=== PATIENT | female | born 1945 | race Caucasian/White ===

== ENCOUNTER 2017-02-20 21:38 | Inpatient (IN) ==
--- NOTE | 2017-02-20 22:15 | Emergency Department Note ---
Disposition Clinical Impression: Hypokalemia, Generalized weakness, Unable to ambulate, ESRD (end stage renal disease) Leg pain Qualifiers: Laterality: bilateral Qualified Code(s): M79.604 - Pain in right leg Disposition: Admitted As Inpatient Condition: Good Time of Disposition: 01:07 General Adult HPI - General Chief complaint: ED Extremity Problem,Nontraumatic Stated complaint: Leg pain bilaterally Time Seen by Provider: 02/20/17 21:44 Source: EMS Mode of arrival: EMS Limitations: no limitations Nursing Notes Reviewed: Yes Vital Signs Reviewed: Yes - History of Present Illness HPI Narrative: Patient is a 71-year-old female with past medical history of COPD, end-stage renal disease, hypertension. She presents today due to lower extremity pain bilaterally. Patient states that she has had this pain before when she was getting ready to start dialysis. She has also had this pain if she goes to long without dialysis. She describes the pain as intense cramping in bilateral lower extremities from hips down to feet. She also admits to increased cough from baseline and shortness of breath. Denies any chest pain. Denies any nausea, vomiting, abdominal pain, diarrhea. She does admit to missing her dialysis appointment on Friday. She is supposed to go Mondays and Fridays. She follows with Dr. Gamboa. Pain Scale: 10 - Related Data Home Medications Medication Instructions Recorded Confirmed Amitriptyline [Elavil] 50 mg PO HS 09/19/15 02/21/17 Amlodipine [Amlodipine Besylate] 10 mg PO DAILY 09/19/15 02/21/17 Cholecalciferol (Vitamin D3) 5,000 unit PO DAILY #0 09/19/15 02/21/17 [Vitamin D3] Ranitidine HCl [Zantac] 150 mg PO HS 09/19/15 02/21/17 Ondansetron HCl 4 mg PO Q8H PRN 11/08/16 02/21/17 Budesonide/Formoterol 80/4.5 1 puff IH BIDR PRN 02/21/17 02/21/17 [Symbicort 80/4.5] Calcium Acetate [Phos-LO] 1,334 mg PO HS 02/21/17 02/21/17 Calcium Acetate [Phos-LO] 667 mg PO TIDWM 02/21/17 02/21/17 Cyanocobalamin (B-12) [Vitamin B12] 1,000 mcg IM QMONTH 02/21/17 02/21/17 Ipratropium/Albuterol Neb [Duoneb] 3 ml IH [id number] PRN 02/21/17 02/21/17 Allergies Allergy/AdvReac Type Severity Reaction Status Date / Time codeine AdvReac Severe Vomiting Verified 11/08/16 09:29 naproxen [From Naprosyn] AdvReac Severe Vomiting Verified 11/08/16 09:29 All systems ED: reviewed and negative except as stated. Constitutional: Denies: fever Cardiovascular: Denies: chest pain, palpitations Respiratory: Reports: cough, dyspnea, wheezes Gastrointestinal: Denies: abdominal pain, nausea, vomiting, diarrhea Genitourinary: Denies: urgency, dysuria Musculoskeletal: Reports: myalgia. Denies: back pain Integumentary: Denies: rash Neurological: Denies: headache, weakness, numbness, paresthesias Psychiatric: Denies: anxiety Past Medical History - Past Medical History Attestation: Yes The following information was validated with the patient. Source: patient Medical history: Reports: asthma, COPD, GERD, hypertension, renal disease, thyroid disease Surgical history: Reports: appendectomy, cholecystectomy, colostomy, hysterectomy, other Psychiatric history: Reports: no psych history - Social History Smoking Status: Current every day smoker Smokeless Tobacco Status: No Alcohol use: Reports: none Drug use: Reports: none Physical Exam - General Limitations: no limitations General appearance: alert, in distress, other (Patient is crying, cannot get comfortable, yelling that her legs hurt) - Head Head exam: atraumatic, normocephalic, normal inspection - Eye Eye exam: Present: normal appearance, PERRL, EOMI - ENT ENT exam: normal exam, normal oropharynx, mucous membranes moist - Neck Neck exam: Present: normal inspection, full ROM, trachea midline - Chest Chest inspection: Present: normal inspection, symmetric chest wall rise - Respiratory Respiratory exam: Present: wheezes (wheeze bilateral LL) - Cardiovascular Cardiovascular exam: Present: regular rate, normal rhythm, normal heart sounds - Abdominal Exam Abdominal exam: Present: soft, Non-Tender, other (Ostomy on LLQ and RLQ, viable pink and no localized erythema or pus drainage). Absent: tenderness, distention , guarding, rebound, rigidity - Extremities Exam Extremities exam: Present: normal inspection, full ROM, tenderness (Tenderness to entire bilateral LE with light palpation. ). Absent: pedal edema Course Course Narrative: Vitals within normal limits on exam. Patient is crying, complaining of significant bilateral lower extremity leg cramping. She has tenderness of the entire left and right lower extremity with light palpation. No focal neurologic deficits. Since the patient has increased cough and wheeze bilateral LL, will obtain chest x-ray. We will also obtain EKG, basic labs to assess for any electrolyte abnormalities due to the patient missing her dialysis. [place] given for pain control. 00:13 EKG showed normal sinus rhythm with no acute ST changes. CBC within normal limits. BMP showed potassium 2.9. Will begin to place potassium in the ED with K rider. Patient is still having leg pain, is unable to ambulate due to this. She has generalized weakness. Will admit the patient for further care. Vital Signs Temperature 99.5 F 02/20/17 21:45 Pulse Rate 92 02/20/17 21:45 Respiratory Rate 18 02/20/17 21:45 Blood Pressure 101/62 02/20/17 21:45 O2 Sat by Pulse Oximetry 94 02/20/17 21:45 Temperature 99 F 02/21/17 04:11 Pulse Rate 91 02/21/17 04:11 Respiratory Rate 18 02/21/17 04:11 Blood Pressure 106/61 02/21/17 04:11 O2 Sat by Pulse Oximetry 93 02/21/17 04:11 Oxygen Delivery Oxygen Delivery Room Air Medical Decision Making - [facility] Narrative Medical decision making narrative: Vitals within normal limits on exam. Patient is crying, complaining of significant bilateral lower extremity leg cramping. She has tenderness of the entire left and right lower extremity with light palpation. No focal neurologic deficits. Since the patient has increased cough and wheeze bilateral LL, will obtain chest x-ray. We will also obtain EKG, basic labs to assess for any electrolyte abnormalities due to the patient missing her dialysis. [place] given for pain control. 00:13 EKG showed normal sinus rhythm with no acute ST changes. CBC within normal limits. BMP showed potassium 2.9. Will begin to place potassium in the ED with K rider. Patient is still having leg pain, is unable to ambulate due to this. She has generalized weakness. Will admit the patient for further care. - Medical Records Medical records reviewed: Yes I reviewed the patient's medical records. - Lab Data Lab results reviewed: Yes I reviewed the patient's lab results. Result diagrams: 02/20/17 22:37 02/20/17 22:37 Lab Results 02/20/17 02/20/17 Range/Units 22:37 22:37 WBC 9.5 (4.3-11.1) K/mcL RBC 4.06 (3.82-4.97) M/mcL Hgb 12.5 (11.5-15.4) g/dL Hct 35.7 (35.3-44.9) % MCV 87.9 (83.0-100.0) fL MCH 30.8 (28.0-33.3) pg MCHC 35.0 (31.6-35.5) g/dL RDW 13.9 (11.5-14.5) % Plt Count 89 L (140-400) K/mcL MPV 12.5 H (9.4-12.4) fL Immature Gran % 0.3 (0-4) % Seg Neutrophils % 78.5 % Lymphocytes % 14.4 % Monocytes % 4.9 % Eosinophils % 1.6 % Basophils % 0.3 % Neutrophils # 7.5 (1.6-8.9) K/mcL Lymphocytes # 1.4 (0.6-4.6) K/mcL Monocytes # 0.5 (0.0-1.3) K/mcL Eosinophils # 0.2 (0.0-0.6) K/mcL Basophils # 0.0 (0.0-0.2) K/mcL Immature Plt Fraction 9.6 H (1.1-6.1) % Sodium 138 (136-145) mEq/L Potassium 2.9 L (3.5-4.5) mEq/L Chloride 86 L (98-109) mEq/L Carbon Dioxide 16 L (19-29) mEq/L BUN 85 H (7-20) mg/dL Creatinine 16.07 H (0.57-1.11) mg/dL Est GFR ( Amer) 3 L (> 60) Est GFR (Non-Af Amer) 2 L (> 60) BUN/Creatinine Ratio 5 L (6-26) Glucose 90 (70-99) mg/dL Calculated Osmolality 311 H (280-300) Calcium 7.7 L (8.6-10.8) mg/dL Total Bilirubin 0.4 (0.2-1.2) mg/dL AST 10 (5-34) Units/L ALT 9 (0-55) Units/L Alkaline Phosphatase 74 (38-126) Units/L Serum Total Protein 7.3 (6.0-8.3) g/dL Albumin 3.4 L (3.5-5.0) g/dL Globulin 3.9 H (2.4-3.5) g/dL Albumin/Globulin Ratio 0.9 L (1.1-2.2) - Radiology Data Radiology results reviewed: Yes I reviewed the patient's radiology results. - EKG Data EKG #1 EKG attestation: Yes I reviewed and interpreted this EKG. EKG results narrative: 02/20/2017 at 22:15. Normal sinus rhythm. Rate 85. [place] 138. QRS 104. QTC 425. Normal axis. No acute ST elevation or depression. S.B.A.R. - S.B.A.R. Situation: Demographics, MOA Background: Presenting Complaint, Relevant PMH, Meds, & Allergies Assessment: Vital Signs, Course and respsone to treatment, Exam Concerns, Patient/Family Expectation, Pertinant Lab Results, Outstanding Labs Recommendation: Barrier(s) to disposition, Recommendation based on pending studies, treatments, or consults S.B.A.R. Report Given to: Dr. Levine [email or web address] Repor Time: 01:07 Attestation Statement - Attestation Attestation: Dr. Joseph note: Patient was seen in conjunction with resident Dr. Robert Benedict; please see his chart for complete documentation. I spent [id number] time with the patient and agree with the patient's treatment and disposition. Chemistry results of been reviewed. Patient is unable to ambulate in the ER. She has chronic diarrhea and worsening bilateral lower extremity pain.
[2017-02-20] MEDS ORDERED: *HR* HYDROcodone/Acet 5/325 mg TABLET PO ONE (22:27)
[2017-02-20 22:40] LABS: Basophils % 0.3 %; Hemoglobin 12.5 g/dL (11.5-15.4); Immature Granulocytes % 0.3 % (0-4)
[2017-02-20 22:41] LABS: Eosinophils # 0.2 K/mcL (0.0-0.6); Eosinophils % 1.6 %; Hematocrit 35.7 % (35.3-44.9); Immature Platelets 9.6 % (1.1-6.1); Lymphocytes # 1.4 K/mcL (0.6-4.6); Lymphocytes % 14.4 %; Mean Corpuscular Hemoglobin 30.8 pg (28.0-33.3); Mean Corpuscular Volume 87.9 fL (83.0-100.0); Mean Platelet Volume 12.5 fL (9.4-12.4); Monocytes # 0.5 K/mcL (0.0-1.3); Monocytes % 4.9 %; Neutrophils # 7.5 K/mcL (1.6-8.9); Red Blood Count 4.06 M/mcL (3.82-4.97); Red Cell Distribution Width 13.9 % (11.5-14.5); Segmented Neutrophils % 78.5 %
[2017-02-20 22:42] LABS: Platelet Count 89 K/mcL (140-400)
[2017-02-20 22:54] LABS: Albumin 3.4 g/dL (3.5-5.0); Albumin/Globulin Ratio 0.9 (1.1-2.2); Bilirubin,Total 0.4 mg/dL (0.2-1.2); Calcium 7.7 mg/dL (8.6-10.8); Globulin 3.9 g/dL (2.4-3.5); Potassium 2.9 mEq/L (3.5-4.5); Total Protein 7.3 g/dL (6.0-8.3)
[2017-02-20] MEDS ORDERED: Potassium Chloride 40 MEQ, Lidocaine 1% 2 ML in D5% in Water 500 ML IVPB ONE (23:55)
[2017-02-21] MEDS: *HR* HYDROcodone/Acet 5/325 mg TABLET PO PRN ×4 (03:12→18:28)
[2017-02-21] MEDS ORDERED: Naloxone 0.4 MG/ML INJ IVP PRN (06:24)
[2017-02-21] MEDS ORDERED: Budesonide/Formoterol 80/4.5 MDI IH PRN (06:26)
[2017-02-21] MEDS ORDERED: Ipratropium/Albuterol Neb 3 ML IH PRN (06:26)
[2017-02-21] MEDS ORDERED: Ondansetron ODT 4 MG TAB.RAPDIS PO PRN ×2 (06:26→07:08)
--- NOTE | 2017-02-21 07:28 | Internal Med History&Physical ---
Date of Encounter: 02/21/17 Time of Encounter: 06:30 Assessment and Plan (1) ESRD (end stage renal disease) Current visit: Yes Status: Acute On HD. Patient states left upper arm fistula has matured and is being used for dialysis. Missed dialysis for the past one week - Nephrology consulted for assistance with urgent dialysis today - Continue home renal meds (2) Hypokalemia Current visit: Yes Status: Acute Related to chronic diarrhea - Supplementation given in ER. Will not continue to replace given ESRD (3) Generalized weakness Current visit: Yes Status: Acute Secondary to leg pain and need for hemodialysis - Likely dialysis today Internal Medicine - H&P: HPI Chief complaint: Lower extremity pain Admitted From: Emergency Dept Plans for Post Hospital Care: Home History of present illness: Ms. Parra is a 71 year old female with history of ESRD on HD (initiated 11/2016 , follows with Dr. Daniel), COPD and HTN who presented to the ER this morning with complaint of severe bilateral lower extremity pain. She states that she has had similar pain in the past when she needed dialysis. She admits to missing her dialysis on 02/17 because she had vomiting and diarrhea. She has chronic diarrhea secondary to ileostomy but thinks it was worse this week. She denies chest pain or shortness of breath. In the ER she was found to be hypokalemic with K of 2.9. Past Med Surg Social Fam HX - Past Medical History Medical history: asthma, COPD, GERD, hypertension, renal disease, thyroid disease Psychiatric history: no psych history - Past Surgical History Surgical History: appendectomy, cholecystectomy, colostomy, hysterectomy, other - Social History Smoking Status: Current every day smoker Packs per day: 1 Smokeless Tobacco Status: No Alcohol use: none Drug use: none - Family History Mother Living Status: Hx Family Cardiac Disorders: Yes ([place]) Hx Family Endocrine Disorder: Yes ([place]) Hx Family Neurologic Disorders: Yes (stroke) Father Living Status: Hx Family Cardiac Disorders: Yes ([place]) Internal Medicine - H&P: Meds Amitriptyline [Elavil] 50 mg PO HS 09/19/15 [History] Amlodipine [Amlodipine Besylate] 10 mg PO DAILY 09/19/15 [History] Cholecalciferol (Vitamin D3) [Vitamin D3] 5,000 unit PO DAILY #0 09/19/15 [ History] Ranitidine HCl [Zantac] 150 mg PO HS 09/19/15 [History] Ondansetron HCl 4 mg PO Q8H PRN 11/08/16 [History] Budesonide/Formoterol 80/4.5 [Symbicort 80/4.5] 1 puff IH BIDR PRN 02/21/17 [ History] Calcium Acetate [Phos-LO] 1,334 mg PO HS 02/21/17 [History] Calcium Acetate [Phos-LO] 667 mg PO TIDWM 02/21/17 [History] Cyanocobalamin (B-12) [Vitamin B12] 1,000 mcg IM QMONTH 02/21/17 [History] Ipratropium/Albuterol Neb [Duoneb] 3 ml IH [id number] PRN 02/21/17 [History] Allergies codeine Adverse Reaction (Severe, Verified 11/08/16 09:29) Vomiting naproxen [From Naprosyn] Adverse Reaction (Severe, Verified 11/08/16 09:29) Vomiting All Systems PM: A 10-system review of systems was performed and is negative for pertinent findings except as documented above in the HPI. - Constitutional Vitals: Temp Pulse Resp BP Pulse Ox 98.4 F 85 14 95/63 93 02/21/17 07:13 02/21/17 07:13 02/21/17 07:13 02/21/17 07:13 02/21/17 07:13 General appearance: Present: A&O X 3, pleasant, no acute distress - Head Head exam: Present: atraumatic - Eye Eye exam: Present: EOMI, sclera anicteric - ENT ENT exam: Present: mucous membranes moist - Neck Neck exam general surgery: Present: supple - Respiratory Respiratory exam: Present: CTAB - Cardiovascular Cardiovascular exam: Present: RRR. Absent: diastolic murmur, gallop, rubs, systolic murmur - GI/Abdominal GI/Abdominal exam: Present: normal bowel sounds, soft. Absent: distended, tenderness Additional comments: Colostomy bag in place with liquid stool inside - Extremities Exam Extremities exam: Absent: pedal edema Additional comments: Tenderness to light palpation of bilateral lower extremities. - Neurological Exam Neurological exam: Present: no focal deficits - Skin Skin exam: Absent: rash Internal Med - H&P Results - Labs CBC & Chem 7: 02/20/17 22:37 02/20/17 22:37
[2017-02-21] MEDS: Cholecalciferol (D-3) 1,000 UNIT TABLET PO SCH (07:40)
[2017-02-21] MEDS: Calcium Acetate 667 MG CAPSULE PO SCH ×3 (07:41→17:16)
[2017-02-21] MEDS: amLODIPine 5 MG TABLET PO SCH (07:53)
[2017-02-21 08:02] LABS: Hematocrit 35.3 % (35.3-44.9); Hemoglobin 12.4 g/dL (11.5-15.4); Mean Corpuscular HGB Conc 35.1 g/dL (31.6-35.5); Mean Corpuscular Hemoglobin 31.2 pg (28.0-33.3); Mean Corpuscular Volume 88.7 fL (83.0-100.0); Red Blood Count 3.98 M/mcL (3.82-4.97); Red Cell Distribution Width 13.8 % (11.5-14.5)
[2017-02-21] MEDS ORDERED: Albumin 25% 12.5gm/50mL 12.5 GM/50 ML IV.SOLN IVPB PRN (08:02)
[2017-02-21] MEDS ORDERED: 0.9 % Sodium Chloride 250 ML IVC PRN (08:02)
[2017-02-21 08:03] LABS: Platelet Count 86 K/mcL (140-400)
--- NOTE | 2017-02-21 08:05 | Nephrology Consult Note ---
Date of Encounter: 02/21/17 Time of Encounter: 08:04 Assessment and Plan (1) ESRD (end stage renal disease) Current Visit: Yes Status: Chronic ESRD due for HD today. Missed HD. She will need HD today and potentially tomorrow as well. Dialysis note: The pt was seen and examined while on HD. She was dialyzing via the Permacath. Her BFR and DFR plus Arterial and Venous pressures were acceptable. I've arranged to use lower Qb and Qd flows d/t her missed dialysis. The hypokalemia is likely d/t her severe diarrhea, which sounds like it would be acutely worse on top of an already chronically high output ostomy situation. Will defer the diarrhea work up and mgt to the primary team. This is dehydrating her as well. I've ordered to give 250mL of 0.9% saline while on dialysis today. AVG on the left upper extremity and working well, [facility] , will plan to consult IR to request removal of the Permacath while here. Dose Rx by GFR. Follow a renal protective strategy Thank you for consulting the [facility] group. (2) Generalized weakness Current Visit: Yes Status: Acute Multifactorial, suspecting from her uremia and diarrhea (3) Hypokalemia Current Visit: Yes Status: Acute (4) Leg pain Current Visit: Yes Status: Acute Will defer the work up and mgt to the primary team. Qualifiers: Laterality: bilateral Qualified Code(s): M79.604 - Pain in right leg; M79.605 - Pain in left leg History of Present Illness - Reason for Consult Consult date: 02/21/17 end stage renal disease Requesting physician: Jacey Henley - Chief Complaint Missed dialysis - History of Present Illness Vannessa Parra is a very pleasant 71 y/o WF lady with a pmh of short gut syndrome with ostomy, progressive CKD and recent declaration of ESRD requiring HD who presented with worsening fatigue and missed dialysis. She voiced that she also has ongoing loose stool, more than normal noted in her ostomy bag. She last completed HD on 02/14. She said that her leg pains started a few weeks ago but have progressively worsened. She denied fall or traumatic injury. She reports having worsened fatigue and generalized weakness with a diminished appetite. She was found to have a SCr near 16 but d/t her severe diarrhea, her serum K+ was actually low. She did not affirm CP but did report labored breath from time to time without associate to palliative or provocative features. She does not take NSAIDs. She has been evaluated for Home HD but the [facility] RNs reported that she is not a candidate. She has a LUE AVG that has been working well. I spoke with the outpatient [facility] dialysis nurse and she asked that if possible the Permacath be removed while hospitalized. Due to the pt's difficulty with her frequent ostomy overflow , it has been a challenge to schedule the Permacath removal, now that her AVG is mature and working so well. She denied taking any blood thinners. Past Med Surg Social Fam HX - Past Medical History Medical history: asthma, COPD, GERD, hypertension, renal disease, thyroid disease Psychiatric history: no psych history - Past Surgical History Surgical History: appendectomy, cholecystectomy, colostomy, hysterectomy, other - Social History Smoking Status: Current every day smoker Packs per day: 1 Smokeless Tobacco Status: No Alcohol use: none Drug use: none - Family History Mother Living Status: Hx Family Cardiac Disorders: Yes ([place]) Hx Family Endocrine Disorder: Yes (DM) Hx Family Neurologic Disorders: Yes (stroke) Father Living Status: Hx Family Cardiac Disorders: Yes ([place]) Medications and Allergies Amitriptyline [Elavil] 50 mg PO HS 09/19/15 [History] Amlodipine [Amlodipine Besylate] 10 mg PO DAILY 09/19/15 [History] Cholecalciferol (Vitamin D3) [Vitamin D3] 5,000 unit PO DAILY #0 09/19/15 [ History] Ranitidine HCl [Zantac] 150 mg PO HS 09/19/15 [History] Ondansetron HCl 4 mg PO Q8H PRN 11/08/16 [History] Calcium Acetate [Phos-LO] 1,334 mg PO HS 02/21/17 [History] Calcium Acetate [Phos-LO] 667 mg PO TIDWM 02/21/17 [History] Cyanocobalamin (B-12) [Vitamin B12] 1,000 mcg IM QMONTH 02/21/17 [History] Ipratropium/Albuterol Neb [Duoneb] 3 ml IH [id number] PRN 02/21/17 [History] Levothyroxine Sodium [Synthroid] 350 mcg PO DAILY 02/21/17 [History] Mometasone/Formoterol [Dulera 100 Mcg/5 Mcg Inhaler] 2 puff IH BID 02/21/17 [ History] Allergies codeine Adverse Reaction (Severe, Verified 11/08/16 09:29) Vomiting naproxen [From Naprosyn] Adverse Reaction (Severe, Verified 11/08/16 09:29) Vomiting Review of Systems All Systems: reviewed and no additional remarkable complaints except as stated Exam - Vital Signs Vital signs: Initial Vital Signs Temp Pulse Resp BP Pulse Ox 99.5 F 92 18 101/62 94 02/20/17 21:45 02/20/17 21:45 02/20/17 21:45 02/20/17 21:45 02/20/17 21:45 Vital Signs - Last 8 Hours Temp Pulse Resp BP Pulse Ox 02/21/17 07:13 98.4 F 85 14 95/63 93 02/21/17 04:11 99 F 91 18 106/61 93 02/21/17 01:45 98.1 F 77 18 108/64 93 02/21/17 01:22 98.9 F 18 102/68 Intake and Output 02/20/17 02/21/17 02/21/17 23:59 07:59 15:59 Intake Total 240 / 240 Output Total 95 / 95 Balance 145 / 145 Intake: Oral 240 / 240 Output: Stool 70 / 70 Urostomy 25 / 25 Other: Weight 56.835 kg Patient Weight 02/21/17 23:59 Weight 56.835 kg - General Appearance General appearance: cachectic, chronically ill, fatigue, frail EENT: ATNC, PERRL, mucous membranes moist Neck: supple Respiratory: clear Cardiology: holosystolic murmur, no edema, regular rate, normal S1, normal S2 - Dialysis Access Dialysis Vascular Access: Arteriovenous Graft (Left Upper Extremity) thrill: Yes bruit: Yes Additional Comments: Permacath still in place Gastrointestinal: normoactive bowel sounds, no tenderness, no guarding Additional Comments: Thin abd with palpable ostomy bags Integumentary: no rash, warm and dry Neurologic: no focal deficit, no asterixis, alert and oriented x3 Musculoskeletal: no deformities, no erythema, no cyanosis, no clubbing Psychiatric: mood/affect appropriate, cooperative Results - Lab Results 02/21/17 07:50 02/21/17 07:50 Most recent lab results Calcium 7.7 mg/dL (8.6-10.8) L 02/20/17 22:37 Reviewed all of above, plus outside med records from [facility], imaging, labs, vitals, and inpt notes. Consult Discharge Plan - Plan Referrals: Na Johansen CNP [Primary Care Provider] - 03/04/17 10:00 am
[2017-02-21 08:14] LABS: Calcium 6.4 mg/dL (8.6-10.8); Potassium 2.9 mEq/L (3.5-4.5)
[2017-02-21 08:42] LABS: Hepatitis B Surface Antibody 1.87 mIU/mL; Hepatitis B Surface Antigen Nonreactive (Nonreactive)
[2017-02-21] MEDS ORDERED: *HR* Heparin 10,000 UNIT/10 ML VIAL IV PRN (09:11)
[2017-02-21] MEDS ORDERED: 0.9 % Sodium Chloride 1,000 ML PRIME SCH (09:15)
[2017-02-21] MEDS ORDERED: *HR* Heparin 5,000 UNIT/ML VIAL ONE (09:16)
[2017-02-21] MEDS ORDERED: 0.9 % Sodium Chloride 2,000 ML ONE (09:16)
--- NOTE | 2017-02-21 09:44 | Internal Med Progress Note ---
Date of Encounter: 02/21/17 Time of Encounter: 09:43 - Assessment and plan (1) Chronic diarrhea Current Visit: Yes Status: Chronic Assessment and plan: Acute on chronic diarrhea due to short gut syndrome With associated hypokalemia in patient with ESRD on HD patient has received HD today Will send C.diff, if negative, will give Imodium Continue to monitor K (2) Hypokalemia Current Visit: Yes Status: Acute Assessment and plan: K 2.9 on admission, 2.9 now S/P HD Will repeat K at p.m today and will review need for replacement due to kidney disease Current episode is due to acute on chronic diarrhea (3) DVT prophylaxis Current Visit: Yes Status: Acute Assessment and plan: Heparin SQ (4) Ileostomy in place Current Visit: Yes Status: Chronic Assessment and plan: High output, no surrounding erythema (5) ESRD (end stage renal disease) on dialysis Current Visit: Yes Status: Chronic Assessment and plan: Nephrology following, input appreciated patient receiving HD at time of review IR consult for removal of catheters that are not being used (6) Tobacco abuse Current Visit: Yes Status: Chronic Assessment and plan: Continues to smoke, defers NRT (7) Leg pain Current Visit: Yes Status: Acute Assessment and plan: Possibly secondary to multiple electrolyte abnormalities Continue to monitor Resume home meds Tylenol prn Qualifiers: Laterality: bilateral Qualified Code(s): M79.604 - Pain in right leg; M79.605 - Pain in left leg - Subjective Interval history: Initial encounter Patient is seen at hemodialysis section She has a PMH of Short gut syndrome with ostomy and high output from her ostomy , ESRD on HD, GERD, Hypothyroidism, HTN She is admitted for generalized weakness , hypokalemia, uremia after missing a dose of her HD due to feeling of unwellness and bilateral lower extremity pains Patient seen and denies new complains She has however been having worsening of her chronic diarrhea, she denies recent antibiotic use, she denies sick contacts - Constitutional Vitals: Temp Pulse Resp BP Pulse Ox 98.4 F 85 14 95/63 93 02/21/17 07:13 02/21/17 07:13 02/21/17 07:13 02/21/17 07:13 02/21/17 07:13 General appearance: Present: A&O X 3, pleasant, no acute distress - Head Head exam: Present: atraumatic, normocephalic - Eye Eye exam: Present: PERRL, conjuntiva pink, sclera anicteric Pupils: Present: PERRL - Neck Neck exam general surgery: Present: supple, trachea midline. Absent: lymphadenopathy - Respiratory Respiratory exam: Present: CTAB. Absent: accessory muscle use, rales, rhonchi, wheezes Additional comments: R port-a-cath, L permacath - Cardiovascular Cardiovascular exam: Present: RRR, +S1, +S2. Absent: diastolic murmur, gallop, rubs, systolic murmur - GI/Abdominal GI/Abdominal exam: Present: normal bowel sounds, soft, no peritoneal signs. Absent: distended, tenderness Additional comments: Ostomy bag filled with watery output - Extremities Exam Extremities exam: Present: warm, radial pulses palpable and symetrical. Absent : calf tenderness, cyanotic, pedal edema Additional comments: LAVF thrill no pedal edema, LE tenderness to mild touch - Neurological Exam Neurological exam: Present: alert, CN II-XII intact, oriented X3, no focal deficits. Absent: pronater drift, facial droop, speech deficit - Skin Skin exam: Present: dry, intact Internal Medicine: Result - Labs CBC & Chem 7: 02/21/17 07:50 02/21/17 07:50 Labs: Short CBC 02/21/17 Range/Units 07:50 WBC 8.1 (4.3-11.1) K/mcL Hgb 12.4 (11.5-15.4) g/dL Hct 35.3 (35.3-44.9) % Plt Count 86 L (140-400) K/mcL [facility] 02/21/17 07:50 Sodium 136 Potassium 2.9 L Chloride 97 L Carbon Dioxide 12 L BUN 76 H Creatinine 13.76 H Glucose 75 Calcium 6.4 L D Consult Discharge Plan - Plan Referrals: Na Johansen, TYLER [Primary Care Provider] - 03/04/17 10:00 am
--- NOTE | 2017-02-21 13:58 | IR Procedure Note ---
Date of procedure: 02/21/17 Consent Obtained: Written consent Timeout: Correct patient and procedure verified, Correct site verified, Time out performed, Skin prep completed Local anesthetic: Lidocaine 1% Indications: Functioning AVF Procedure Performed: Removal TDC Results/Findings: Successful removal TDC Complications: None; Tolerated procedure well (Monitor on floor)
[2017-02-21] MEDS ORDERED: Acetaminophen 325 MG TABLET PO PRN (14:13)
--- NOTE | 2017-02-21 17:20 | Electrocardiograph Report ---
[place] [address] Test Date: 2017-02-20 Pat Name: Vannessa Parra Department: 103 Room: [facility] Gender: F Principal Network Engineer: GERALD : 1945 Requested By: Robert Benedict Order Number: [id number] Reading MD: Angelica Germain Measurements Intervals [place] Rate: 85 P: 85 OK: 138 QRS: 72 QRSD: 104 T: 71 QT: 383 QTc: 425 Interpretive Statements SINUS RHYTHM Electronically Signed On 02-21-2017 17:19:15 EDT by Angelica Germain
[2017-02-21] MEDS ORDERED: Calcium Acetate 667 MG CAPSULE PO SCH (21:00)
[2017-02-21] MEDS: Famotidine 20 MG TABLET PO SCH (21:47)
[2017-02-21] MEDS: *HR* Heparin 5,000 UNIT/ML VIAL SQ SCH (21:47)
[2017-02-22] MEDS: *HR* HYDROcodone/Acet 5/325 mg TABLET PO PRN ×4 (03:47→20:16)
[2017-02-22 04:12] LABS: Hematocrit 34.9 % (35.3-44.9); Hemoglobin 11.8 g/dL (11.5-15.4); Immature Platelets 8.8 % (1.1-6.1); Mean Corpuscular HGB Conc 33.8 g/dL (31.6-35.5); Mean Corpuscular Volume 91.6 fL (83.0-100.0); Mean Platelet Volume 12.6 fL (9.4-12.4); Red Blood Count 3.81 M/mcL (3.82-4.97); Red Cell Distribution Width 14.1 % (11.5-14.5)
[2017-02-22 04:17] LABS: Potassium 3.3 mEq/L (3.5-4.5)
[2017-02-22 04:18] LABS: Calcium 8.5 mg/dL (8.6-10.8)
[2017-02-22] MEDS: *HR* Heparin 5,000 UNIT/ML VIAL SQ SCH ×3 (05:47→20:17)
[2017-02-22] MEDS: Ondansetron 4 MG/2 ML VIAL IVP PRN ×3 (06:37→22:06)
[2017-02-22] MEDS: Calcium Acetate 667 MG CAPSULE PO SCH ×3 (08:40→16:55)
[2017-02-22] MEDS: amLODIPine 5 MG TABLET PO SCH (08:40)
[2017-02-22] MEDS: Cholecalciferol (D-3) 1,000 UNIT TABLET PO SCH (08:40)
--- NOTE | 2017-02-22 10:10 | Nephrology Progress Note ---
Date of Encounter: 02/22/17 Time of Encounter: 10:09 - Assessment and Plan (1) ESRD (end stage renal disease) Current Visit: Yes Status: Chronic She appears ill, and I suspect she has a component of volume depletion from the high out put ostomy. I will provide a liter of 0.9% saline plus 40mEq oral KCl, but I'll ask the RN to crush it so as to help improve absorption d/t her short gut. No extra HD needed today. Will plan for the next HD treatment on Friday. Her LE pains could very well be from electrolyte deficiencies but may also be nutritional deficiencies as well: ?thiamine, folate, B6/12? Continue to follow a renal protective strategy Thank you. (2) Generalized weakness Current Visit: Yes Status: Acute (3) Hypokalemia Current Visit: Yes Status: Acute (4) Leg pain Current Visit: Yes Status: Acute Qualifiers: Laterality: bilateral Qualified Code(s): M79.604 - Pain in right leg; M79.605 - Pain in left leg Subjective Principal diagnosis: ESRD, Generalized weakness, LE pains Interval history: Pt was s/e earlier today. She has ongoing LE pains that worsen to touch. She voiced having general weakness; no new slurred speach or unilateral weakness. She completed most of HD yesterday, she affirmed. Still having increase diarrhea. Objective - Vital Signs Vital signs: Vital Signs Temp Pulse Resp BP Pulse Ox 02/22/17 08:05 98.3 F 68 15 104/63 95 02/22/17 05:10 98.2 F 70 18 102/58 90 02/22/17 00:25 97.5 F L 79 18 114/62 96 02/21/17 21:05 98.3 F 70 18 105/60 93 02/21/17 19:08 99.5 F 74 16 114/69 97 02/21/17 16:16 98.8 F 77 16 99/60 94 02/21/17 12:42 98.1 F 18 103/55 02/21/17 12:00 99/52 02/21/17 11:45 113/60 02/21/17 11:30 110/54 02/21/17 11:15 102/54 02/21/17 11:00 98/54 02/21/17 10:45 129/67 02/21/17 10:30 110/54 02/21/17 10:15 105/56 Intake and Output 02/21/17 02/22/17 02/22/17 23:59 07:59 15:59 Intake Total 240 / 240 400 / 400 360 / 360 Balance 240 / 240 400 / 400 360 / 360 Intake: Oral 240 / 240 400 / 400 360 / 360 Other: Meal Dinner Breakfast Percent of Meal Consumed 95% 100% Weight 56.83 kg Patient Weight 02/22/17 23:59 Weight 56.83 kg - General Appearance General appearance: Present: cachectic, moderate distress, chronically ill, fatigue, frail EENT: Present: ATNC, mucous membranes dry Neck: Present: supple Respiratory: Present: course breath sounds Cardiology: Present: holosystolic murmur, no edema, regular rate, regular rhythm , normal S1, normal S2 Dialysis Vascular Access: Arteriovenous Graft (Left UE) thrill: Yes bruit: Yes Additional Comments: The Permacath has been removed and dressing in place Gastrointestinal: Present: no tenderness (thin abd with ostomy bags) Integumentary: Present: warm and dry Neurologic: Present: no focal deficit, no asterixis, alert and oriented x3 Musculoskeletal: Present: no deformities, no erythema, no clubbing Psychiatric: Present: mood/affect appropriate, cooperative - Lab 02/22/17 03:52 02/22/17 03:52 Most recent lab results Calcium 8.5 mg/dL (8.6-10.8) L D 02/22/17 03:52 Consult Discharge Plan - Plan Referrals: Na Johansen, FEED MILL MANAGER [Primary Care Provider] - 03/04/17 10:00 am
[2017-02-22] MEDS ORDERED: D5% in 0.9% NACL 1,000 ML IVC SCH (10:15)
--- NOTE | 2017-02-22 11:56 | Internal Med Progress Note ---
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 With associated hypokalemia in patient with ESRD on HD Cdiff negative K improving Patient reports diarrhea improving Will give one dose Imodium (2) Hypokalemia Current Visit: Yes Status: Acute Assessment and plan: K 2.9 on admission, 3.3 S/P HD Replaced o by correspondence school teacher Continue to monitor (3) DVT prophylaxis Current Visit: Yes Status: Acute Assessment and plan: Heparin SQ (4) Ileostomy in place Current Visit: Yes Status: Chronic Assessment and plan: High output, no surrounding erythema (5) ESRD (end stage renal disease) on dialysis Current Visit: Yes Status: Chronic Assessment and plan: Nephrology following, input appreciated Per renal, no extra HD needed today. Will plan for the next HD treatment on Friday (6) Tobacco abuse Current Visit: Yes Status: Chronic Assessment and plan: Continues to smoke, defers NRT (7) Leg pain Current Visit: Yes Status: Acute Assessment and plan: Possibly secondary to multiple electrolyte abnormalities Agree with checking B12/Folate Will start low dose gabapentin for neuropathy Continue to monitor Resume home meds Tylenol prn Qualifiers: Laterality: bilateral Qualified Code(s): M79.604 - Pain in right leg; M79.605 - Pain in left leg - Subjective Interval history: Patient is seen at bedside She has a PMH of Short gut syndrome with ostomy and high output from her ostomy , ESRD on HD, GERD, Hypothyroidism, HTN She is admitted for generalized weakness , hypokalemia, uremia after missing a dose of her HD due to feeling of unwellness and bilateral lower extremity pains He has one episode of hemodialysis yesterday. She feels today she reports that he is improving, hypokalemia has improved, she still has bilateral lower extremity pain - Constitutional Vitals: Temp Pulse Resp BP Pulse Ox 98.3 F 69 14 107/62 97 02/22/17 11:04 02/22/17 11:04 02/22/17 11:04 02/22/17 11:04 02/22/17 11:04 General appearance: Present: A&O X 3, pleasant, no acute distress - Head Head exam: Present: atraumatic, normocephalic - Eye Eye exam: Present: PERRL, conjuntiva pink, sclera anicteric Pupils: Present: PERRL - Neck Neck exam general surgery: Present: supple, trachea midline. Absent: lymphadenopathy - Respiratory Respiratory exam: Present: CTAB. Absent: accessory muscle use, rales, rhonchi, wheezes Additional comments: Right port-a-cath, clan surounding, LEft permacath has been removed, clean dressing No chest wall tenderness - Cardiovascular Cardiovascular exam: Present: RRR, +S1, +S2. Absent: diastolic murmur, gallop, rubs, systolic murmur - GI/Abdominal GI/Abdominal exam: Present: normal bowel sounds, soft, no peritoneal signs. Absent: distended, tenderness - Extremities Exam Extremities exam: Present: tenderness, warm, radial pulses palpable and symetrical. Absent: calf tenderness, cyanotic, pedal edema - Neurological Exam Neurological exam: Present: alert, CN II-XII intact, oriented X3, no focal deficits. Absent: pronater drift, facial droop, speech deficit - Skin Skin exam: Present: dry, intact Internal Medicine: Result - Labs CBC & Chem 7: 02/22/17 03:52 02/22/17 03:52 Labs: Short CBC 02/22/17 Range/Units 03:52 WBC 6.3 (4.3-11.1) K/mcL Hgb 11.8 (11.5-15.4) g/dL Hct 34.9 L (35.3-44.9) % Plt Count 83 L (140-400) K/mcL [facility] 02/21/17 02/22/17 14:50 03:52 Sodium 140 Potassium 3.6 3.3 L Chloride 98 Carbon Dioxide 24 BUN 42 H D Creatinine 8.93 H Glucose 78 Calcium 8.5 L D Consult Discharge Plan - Plan Referrals: Na Johansen CNP [Primary Care Provider] - 03/04/17 10:00 am
[2017-02-22] MEDS: Gabapentin 100 MG CAPSULE PO SCH (14:23)
[2017-02-22] MEDS: Famotidine 20 MG TABLET PO SCH (20:16)
[2017-02-23] MEDS: *HR* HYDROcodone/Acet 5/325 mg TABLET PO PRN ×4 (02:13→22:57)
[2017-02-23 05:38] LABS: Hematocrit 31.9 % (35.3-44.9)
[2017-02-23 05:40] LABS: Hemoglobin 10.5 g/dL (11.5-15.4); Immature Platelets 6.9 % (1.1-6.1); Mean Corpuscular HGB Conc 32.9 g/dL (31.6-35.5); Mean Corpuscular Hemoglobin 30.8 pg (28.0-33.3); Mean Corpuscular Volume 93.5 fL (83.0-100.0); Mean Platelet Volume 11.9 fL (9.4-12.4); Red Blood Count 3.41 M/mcL (3.82-4.97)
[2017-02-23 05:51] LABS: Magnesium 1.3 mg/dL (1.6-2.6); Phosphorous 12.1 mg/dL (2.3-4.7)
[2017-02-23 05:53] LABS: Calcium 7.4 mg/dL (8.6-10.8); Potassium 4.2 mEq/L (3.5-4.5)
[2017-02-23] MEDS: *HR* Heparin 5,000 UNIT/ML VIAL SQ SCH ×3 (06:24→21:09)
[2017-02-23] MEDS: Calcium Acetate 667 MG CAPSULE PO SCH ×3 (08:01→16:55)
--- NOTE | 2017-02-23 08:41 | Nephrology Progress Note ---
Date of Encounter: 02/23/17 Time of Encounter: 08:39 - Assessment and Plan (1) ESRD (end stage renal disease) on dialysis Current Visit: Yes Status: Chronic Feeling better today; received 1 liter 0.9% saline plus 40mEq oral KCl Plan for HD tomorrow Continue renal diet Avoid nephrotoxins if possible (2) Hypocalcemia Current Visit: Yes Status: Acute Ca+ 7.4 today; was as low as 6.4 on 02/21 and up to 8.5 yesterday. On Phoslo which is Ca+ based so this should help increase Ca+ level (3) Generalized weakness Current Visit: Yes Status: Acute Improving (4) Hypokalemia Current Visit: Yes Status: Resolved (5) Hypomagnesemia Current Visit: No Status: Acute Mg level 1.3 Will give Mg 2g IV x 1, slowly Subjective Principal diagnosis: ESRD, Generalized weakness, LE pains Interval history: Patient seen and examined. Sitting up in bed working on 'word search' puzzles. States she is feeling better. Objective - Vital Signs Vital signs: Vital Signs Temp Pulse Resp BP Pulse Ox 02/23/17 07:01 98.1 F 60 16 111/63 97 02/23/17 04:22 98.0 F 66 18 103/63 96 02/22/17 22:29 98.0 F 63 18 120/65 96 02/22/17 17:20 98.7 F 69 16 107/62 95 02/22/17 15:05 20 97 02/22/17 11:04 98.3 F 69 14 107/62 97 Intake and Output 02/22/17 02/23/17 02/23/17 23:59 07:59 15:59 Intake Total 480 / 480 Balance 480 / 480 Intake: Oral 480 / 480 Other: Meal Dinner Percent of Meal Consumed 100% Weight 56.82 kg Patient Weight 02/23/17 23:59 Weight 56.82 kg - General Appearance General appearance: Present: chronically ill, frail EENT: Present: ATNC, mucous membranes moist, hearing intact, vision intact Neck: Present: supple Respiratory: Present: clear Cardiology: Present: no edema, normal S1, normal S2 Dialysis Vascular Access: Arteriovenous Graft Gastrointestinal: Present: no tenderness, no guarding Integumentary: Present: warm and dry Neurologic: Present: alert and oriented x3 Psychiatric: Present: mood/affect appropriate, cooperative - Lab 04/23/17 05:22 02/23/17 05:22 Most recent lab results Calcium 7.4 mg/dL (8.6-10.8) L 02/23/17 05:22 Phosphorus 12.1 mg/dL (2.3-4.7) H 02/23/17 05:22 Magnesium 1.3 mg/dL (1.6-2.6) L 02/23/17 05:22 Consult Discharge Plan - Plan Referrals: Na Johansen CNP [Primary Care Provider] - 03/04/17 10:00 am
[2017-02-23] MEDS ORDERED: Cyanocobalamin (B-12) 1,000 MCG/ML VIAL IM SCH (09:00)
[2017-02-23] MEDS ORDERED: Magnesium Sulfate 2 GM in D5% in Water 100 ML IVPB ONE (09:04)
[2017-02-23] MEDS: Gabapentin 100 MG CAPSULE PO SCH (09:57)
[2017-02-23] MEDS: Ondansetron 4 MG/2 ML VIAL IVP PRN ×2 (09:57→18:30)
[2017-02-23] MEDS: Cholecalciferol (D-3) 1,000 UNIT TABLET PO SCH (09:57)
[2017-02-23] MEDS: amLODIPine 5 MG TABLET PO SCH (09:58)
--- NOTE | 2017-02-23 11:30 | Internal Med Progress Note ---
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 With associated hypokalemia in patient with ESRD on HD Cdiff negative K improving Resolved with imodium, continue prn (2) Hypokalemia Current Visit: Yes Status: Resolved Assessment and plan: K 2.9 on admission, 3.3 02/22, 4.2 today S/P HD Continue to monitor (3) DVT prophylaxis Current Visit: Yes Status: Acute Assessment and plan: Heparin SQ (4) Ileostomy in place Current Visit: Yes Status: Chronic Assessment and plan: N output, no surrounding erythema (5) ESRD (end stage renal disease) on dialysis Current Visit: Yes Status: Chronic Assessment and plan: Nephrology following, input appreciated Per renal, no extra HD needed today. Will plan for the next HD treatment on Friday (6) Tobacco abuse Current Visit: Yes Status: Chronic Assessment and plan: Continues to smoke, defers NRT (7) Leg pain Current Visit: Yes Status: Acute Assessment and plan: Possibly secondary to multiple electrolyte abnormalities Agree with checking B12/Folate Will start low dose gabapentin for neuropathy Continue to monitor Resume home meds Tylenol prn Qualifiers: Laterality: bilateral Qualified Code(s): M79.604 - Pain in right leg; M79.605 - Pain in left leg - Subjective Interval history: Patient is seen at bedside She has a PMH of Short gut syndrome with ostomy and high output from her ostomy , ESRD on HD, GERD, Hypothyroidism, HTN She is admitted for generalized weakness , hypokalemia, uremia after missing a dose of her HD due to feeling of unwellness and bilateral lower extremity pains She had one episode of hemodialysis 02/21. She received one dose of Imodium She states her LE pain and diarrhea has improved Her K has improved, magnesium is low 1.3 - Constitutional Vitals: Temp Pulse Resp BP Pulse Ox 98 F 62 16 133/65 92 02/23/17 10:59 02/23/17 10:59 02/23/17 10:59 02/23/17 10:59 02/23/17 10:59 General appearance: Present: A&O X 3, pleasant, no acute distress - Head Head exam: Present: atraumatic, normocephalic - Eye Eye exam: Present: PERRL, conjuntiva pink, sclera anicteric Pupils: Present: PERRL - Neck Neck exam general surgery: Present: supple, trachea midline. Absent: lymphadenopathy - Respiratory Respiratory exam: Present: CTAB. Absent: accessory muscle use, rales, rhonchi, wheezes Additional comments: Right port-a-cath, clan surounding, LEft permacath has been removed, clean dressing No chest wall tenderness - Cardiovascular Cardiovascular exam: Present: RRR, +S1, +S2. Absent: diastolic murmur, gallop, rubs, systolic murmur - GI/Abdominal GI/Abdominal exam: Present: normal bowel sounds, soft, no peritoneal signs. Absent: distended, tenderness - Extremities Exam Extremities exam: Present: tenderness, warm, radial pulses palpable and symetrical. Absent: calf tenderness, cyanotic, pedal edema - Neurological Exam Neurological exam: Present: alert, CN II-XII intact, oriented X3, no focal deficits. Absent: pronater drift, facial droop, speech deficit - Skin Skin exam: Present: dry, intact Internal Medicine: Result - Labs CBC & Chem 7: 02/23/17 05:22 02/23/17 05:22 Labs: Short CBC 02/23/17 Range/Units 05:22 WBC 5.7 (4.3-11.1) K/mcL Hgb 10.5 L (11.5-15.4) g/dL Hct 31.9 L (35.3-44.9) % Plt Count 80 L (140-400) K/mcL [facility] 02/23/17 05:22 Sodium 137 Potassium 4.2 Chloride 99 Carbon Dioxide 18 L BUN 63 H D Creatinine 10.42 H Glucose 89 Calcium 7.4 L Consult Discharge Plan - Plan Referrals: Na Johansen, DIRECTOR MEDICAL [Primary Care Provider] - 03/04/17 10:00 am
[2017-02-23] MEDS: Renal Vitamin 1 MG CAPSULE PO SCH (15:28)
[2017-02-23] MEDS: Famotidine 20 MG TABLET PO SCH (21:09)
[2017-02-24] MEDS: Ondansetron 4 MG/2 ML VIAL IVP PRN ×3 (02:36→18:45)
[2017-02-24 05:34] LABS: Hematocrit 31.5 % (35.3-44.9); Hemoglobin 10.3 g/dL (11.5-15.4); Immature Platelets 5.3 % (1.1-6.1); Mean Corpuscular HGB Conc 32.7 g/dL (31.6-35.5); Mean Corpuscular Hemoglobin 30.6 pg (28.0-33.3); Mean Corpuscular Volume 93.5 fL (83.0-100.0); Mean Platelet Volume 11.4 fL (9.4-12.4); Red Blood Count 3.37 M/mcL (3.82-4.97); Red Cell Distribution Width 13.7 % (11.5-14.5)
[2017-02-24] MEDS: *HR* Heparin 5,000 UNIT/ML VIAL SQ SCH ×3 (05:38→21:36)
[2017-02-24 05:41] LABS: Calcium 7.2 mg/dL (8.6-10.8); Potassium 4.4 mEq/L (3.5-4.5)
[2017-02-24] MEDS ORDERED: 0.9 % Sodium Chloride 250 ML IVC PRN (06:38)
[2017-02-24] MEDS ORDERED: *HR* Heparin 5,000 UNIT/ML VIAL ONE (09:03)
[2017-02-24] MEDS ORDERED: 0.9 % Sodium Chloride 2,000 ML ONE (09:03)
[2017-02-24] MEDS: Renal Vitamin 1 MG CAPSULE PO SCH (10:34)
[2017-02-24] MEDS: *HR* HYDROcodone/Acet 5/325 mg TABLET PO PRN ×3 (10:34→18:42)
[2017-02-24] MEDS: Gabapentin 100 MG CAPSULE PO SCH (10:35)
[2017-02-24] MEDS: Cholecalciferol (D-3) 1,000 UNIT TABLET PO SCH (10:35)
[2017-02-24] MEDS: Calcium Acetate 667 MG CAPSULE PO SCH ×3 (10:36→17:05)
--- NOTE | 2017-02-24 11:47 | Discharge Summary ---
Date of Encounter: 02/24/17 Time of Encounter: 11:47 - Discharge Diagnosis (1) Chronic diarrhea Status: Chronic (2) Hypokalemia Status: Resolved (3) DVT prophylaxis Status: Acute (4) Ileostomy in place Status: Chronic (5) ESRD (end stage renal disease) on dialysis Status: Chronic (6) Tobacco abuse Status: Chronic (7) Leg pain Status: Acute Qualifiers: Laterality: bilateral Qualified Code(s): M79.604 - Pain in right leg; M79.605 - Pain in left leg - Discharge Medications Home Medications: Amitriptyline [Elavil] 50 mg PO HS 09/19/15 [History] Amlodipine [Amlodipine Besylate] 10 mg PO DAILY 09/19/15 [History] Cholecalciferol (Vitamin D3) [Vitamin D3] 5,000 unit PO DAILY #0 09/19/15 [ History] Ranitidine HCl [Zantac] 150 mg PO HS 09/19/15 [History] Ondansetron HCl 4 mg PO Q8H PRN 11/08/16 [History] Calcium Acetate [Phos-LO] 667 mg PO TIDWM 02/21/17 [History] Cyanocobalamin (B-12) [Vitamin B12] 1,000 mcg IM QMONTH 02/21/17 [History] Ipratropium/Albuterol Neb [Duoneb] 3 ml IH [id number] PRN 02/21/17 [History] Levothyroxine Sodium [Synthroid] 350 mcg PO DAILY 02/21/17 [History] Mometasone/Formoterol [Dulera 100 Mcg/5 Mcg Inhaler] 2 puff IH BID 02/21/17 [ History] Allergies/Adverse Reactions: Allergies codeine Adverse Reaction (Severe, Verified 11/08/16 09:29) Vomiting naproxen [From Naprosyn] Adverse Reaction (Severe, Verified 11/08/16 09:29) Vomiting Date of admission: 02/21/17 01:07 Primary care physician: Na Johansen CNP Consults: 02/21/17 06:34 Consult to Nephrology [CONS] Routine Consulting Provider: Kidney Katelyn/MAYO/JAYESH/COREY Reason for Consult: dialysis Call Completed: Yes 02/21/17 08:15 Consult to Dialysis [CONS] ONCE Consult to Interventional Radiology [CONS] Routine Consulting Provider: Radiology Interventional Cols Reason for Consult: Please evaluate for removal of the unused Permacath. Her AVG is working excellently. She is not on anticoagulants. Thank you. Call Completed: Yes 02/24/17 06:45 Consult to Dialysis [CONS] ONCE - Patient Status Condition: Good - Discharge Instructions Follow Up With: Na Johansen, FISH BAIT PICKER [Primary Care Provider] - 03/04/17 10:00 am Hospital course: Ms. Parra is a 71 year old female - Time Spent with Patient Total time spent providing and/or coordinating discharge services: - Constitutional Vitals: Temp Pulse Resp BP Pulse Ox 98.5 F 70 16 102/52 94 02/24/17 11:43 02/24/17 11:43 02/24/17 11:43 02/24/17 11:43 02/24/17 11:43 General appearance: Present: A&O X 3, pleasant, no acute distress
--- NOTE | 2017-02-24 12:11 | Nephrology Progress Note ---
Date of Encounter: 02/25/17 Time of Encounter: 08:50 - Assessment and Plan (1) ESRD (end stage renal disease) Current Visit: Yes Status: Chronic Attempted HD today, unable to cannulate catheter. Plan for HD tomorrow Continue renal diet. Cont. renal multivitamins. Avoid nephrotoxins if possible (2) Hypocalcemia Current Visit: Yes Status: Acute Slight decline. Ca++ 6.4>8.5>7.5>7.2 Continue to monitor and replace as needed. (3) Hypokalemia Current Visit: Yes Status: Resolved K better today at 4.4. (4) Hypomagnesemia Current Visit: No Status: Acute Mg 1.3 on 02/23/17, patient given 2gm Mg Sulfate at that time. Will continue to monitor electrolytes. (5) Generalized weakness Current Visit: Yes Status: Acute Subjective Principal diagnosis: ESRD, Generalized weakness, LE pains Interval history: Patient seen and examined in the dialysis unit, they were unable to cannulate patient's graft this AM. Objective - Vital Signs Vital signs: Vital Signs Temp Pulse Resp BP Pulse Ox 02/24/17 11:43 98.5 F 70 16 102/52 94 02/24/17 07:10 98.5 F 71 16 114/69 97 02/24/17 05:25 98.4 F 68 18 105/54 91 02/24/17 01:19 98.1 F 87 18 125/63 93 02/23/17 22:52 98.0 F 74 18 112/57 95 02/23/17 15:57 98 F 71 16 126/67 98 Intake and Output 02/23/17 02/24/17 02/24/17 23:59 07:59 15:59 Intake Total 480 / 480 Output Total 500 / 500 Balance -500 / -500 480 / 480 Intake: Oral 480 / 480 Output: Stool 500 / 500 Other: Meal Breakfast Percent of Meal Consumed 100% Weight 56.81 kg Patient Weight 02/24/17 23:59 Weight 56.81 kg - General Appearance General appearance: Present: appears started age, chronically ill, frail EENT: Present: ATNC, mucous membranes moist, hearing intact (hard of hearing), vision intact Neck: Present: supple Respiratory: Present: course breath sounds, rhonchi Cardiology: Present: no edema, regular rate, regular rhythm Dialysis Vascular Access: Arteriovenous Graft thrill: Yes bruit: Yes Additional Comments: colostomy and urostomy present, pink mucosa seen. Integumentary: Present: no rash, warm and dry Neurologic: Present: no focal deficit, alert and oriented x3 Musculoskeletal: Present: no deformities, no erythema, no clubbing Psychiatric: Present: mood/affect appropriate, cooperative - Lab 02/25/17 05:42 02/25/17 05:42 Most recent lab results Calcium 7.2 mg/dL (8.6-10.8) L 02/24/17 04:37 Phosphorus 12.1 mg/dL (2.3-4.7) H 02/23/17 05:22 Magnesium 1.3 mg/dL (1.6-2.6) L 02/23/17 05:22 Consult Discharge Plan - Plan Referrals: Na Johansen CNP [Primary Care Provider] - 03/04/17 10:00 am
--- NOTE | 2017-02-24 12:57 | Internal Med Progress Note ---
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 has resolved Hypokalemia has resolved Cdiff negative Resolved with imodium, continue prn only (2) Hypokalemia Current Visit: Yes Status: Resolved Assessment and plan: K 2.9 on admission, 3.3 02/22, 4.2 today S/P HD Continue to monitor (3) DVT prophylaxis Current Visit: Yes Status: Acute Assessment and plan: Heparin SQ (4) Ileostomy in place Current Visit: Yes Status: Chronic Assessment and plan: N output, no surrounding erythema (5) ESRD (end stage renal disease) on dialysis Current Visit: Yes Status: Chronic Assessment and plan: Nephrology following, input appreciated Patient has not had HD today due to problems with access She also has not been ambulatory Will request PT/OT eval (6) Tobacco abuse Current Visit: Yes Status: Chronic Assessment and plan: Continues to smoke, defers NRT (7) Leg pain Current Visit: Yes Status: Acute Assessment and plan: Possibly secondary to multiple electrolyte abnormalities Vit B12/folate WNL Continue gabapentin Patient reports remarkable improvement Qualifiers: Laterality: bilateral Qualified Code(s): M79.604 - Pain in right leg; M79.605 - Pain in left leg - Subjective Interval history: Patient is seen at bedside She has a PMH of Short gut syndrome with ostomy and high output from her ostomy , ESRD on HD, GERD, Hypothyroidism, HTN She is admitted for generalized weakness , hypokalemia, uremia after missing a dose of her HD due to feeling of unwellness and bilateral lower extremity pains She had one episode of hemodialysis 02/21. She received one dose of Imodium which helped Patient is stable for discharge as her symptoms have improved However, HD could not be done today as it was stated that her AVF access could not be used She denies any new complains - Constitutional Vitals: Temp Pulse Resp BP Pulse Ox 98.5 F 70 16 102/52 94 02/24/17 11:43 02/24/17 11:43 02/24/17 11:43 02/24/17 11:43 02/24/17 11:43 General appearance: Present: A&O X 3, pleasant, no acute distress - Head Head exam: Present: atraumatic, normocephalic - Eye Eye exam: Present: PERRL, conjuntiva pink, sclera anicteric Pupils: Present: PERRL - Neck Neck exam general surgery: Present: supple, trachea midline. Absent: lymphadenopathy - Respiratory Respiratory exam: Present: CTAB. Absent: accessory muscle use, rales, rhonchi, wheezes Additional comments: Right port-a-cath, clean surrounding, Left permacath has been removed, clean dressing No chest wall tenderness - Cardiovascular Cardiovascular exam: Present: RRR, +S1, +S2. Absent: diastolic murmur, gallop, rubs, systolic murmur - GI/Abdominal GI/Abdominal exam: Present: normal bowel sounds, soft, no peritoneal signs. Absent: distended, tenderness - Extremities Exam Extremities exam: Present: warm, radial pulses palpable and symetrical. Absent : calf tenderness, cyanotic, pedal edema - Neurological Exam Neurological exam: Present: alert, CN II-XII intact, oriented X3, no focal deficits. Absent: pronater drift, facial droop, speech deficit - Skin Skin exam: Present: dry Internal Medicine: Result - Labs CBC & Chem 7: 02/24/17 04:37 02/24/17 04:37 Labs: Short CBC 02/24/17 Range/Units 04:37 WBC 5.5 (4.3-11.1) K/mcL Hgb 10.3 L (11.5-15.4) g/dL Hct 31.5 L (35.3-44.9) % Plt Count 91 L (140-400) K/mcL [facility] 02/24/17 04:37 Sodium 139 Potassium 4.4 Chloride 98 Carbon Dioxide 21 BUN 78 H Creatinine 11.95 H Glucose 100 H Calcium 7.2 L Consult Discharge Plan - Plan Referrals: aN Johansen, TYLER [Primary Care Provider] - 03/04/17 10:00 am
[2017-02-24] MEDS: amLODIPine 5 MG TABLET PO SCH (14:55)
[2017-02-24] MEDS: Famotidine 20 MG TABLET PO SCH (21:37)
[2017-02-25] MEDS: *HR* HYDROcodone/Acet 5/325 mg TABLET PO PRN (03:45)
[2017-02-25] MEDS: *HR* Heparin 5,000 UNIT/ML VIAL SQ SCH (05:47)
[2017-02-25] MEDS: Ondansetron 4 MG/2 ML VIAL IVP PRN ×2 (05:54→13:53)
[2017-02-25 06:10] LABS: Hematocrit 31.6 % (35.3-44.9); Hemoglobin 10.1 g/dL (11.5-15.4); Mean Corpuscular Hemoglobin 30.7 pg (28.0-33.3); Red Blood Count 3.29 M/mcL (3.82-4.97)
[2017-02-25 06:12] LABS: Immature Platelets 3.5 % (1.1-6.1); Mean Platelet Volume 11.5 fL (9.4-12.4); Red Cell Distribution Width 13.9 % (11.5-14.5)
[2017-02-25 06:23] LABS: Calcium 7.8 mg/dL (8.6-10.8); Potassium 5.4 mEq/L (3.5-4.5)
[2017-02-25] MEDS ORDERED: 0.9 % Sodium Chloride 250 ML IVC PRN (06:58)
[2017-02-25] MEDS: Gabapentin 100 MG CAPSULE PO SCH (08:00)
[2017-02-25] MEDS: Calcium Acetate 667 MG CAPSULE PO SCH ×2 (08:00→13:16)
[2017-02-25] MEDS: Renal Vitamin 1 MG CAPSULE PO SCH (08:00)
[2017-02-25] MEDS: Cholecalciferol (D-3) 1,000 UNIT TABLET PO SCH (08:00)
[2017-02-25] MEDS: amLODIPine 5 MG TABLET PO SCH (08:01)
--- NOTE | 2017-02-25 10:49 | Discharge Summary ---
Date of Encounter: 02/25/17 Time of Encounter: 10:47 - Discharge Diagnosis (1) Chronic diarrhea Priority: Primary Status: Chronic (2) Hypokalemia Priority: Primary Status: Resolved (3) DVT prophylaxis Priority: Primary Status: Acute (4) Ileostomy in place Priority: Secondary Status: Chronic (5) ESRD (end stage renal disease) on dialysis Priority: Secondary Status: Chronic (6) Tobacco abuse Priority: Secondary Status: Chronic (7) Leg pain Priority: Primary Status: Acute Qualifiers: Laterality: bilateral Qualified Code(s): M79.604 - Pain in right leg; M79.605 - Pain in left leg - Discharge Medications Home Medications: Amitriptyline [Elavil] 50 mg PO HS 09/19/15 [History] Amlodipine [Amlodipine Besylate] 10 mg PO DAILY 09/19/15 [History] Cholecalciferol (Vitamin D3) [Vitamin D3] 5,000 unit PO DAILY #0 09/19/15 [ History] Ranitidine HCl [Zantac] 150 mg PO HS 09/19/15 [History] Ondansetron HCl 4 mg PO Q8H PRN 11/08/16 [History] Calcium Acetate [Phos-LO] 667 mg PO TIDWM 02/21/17 [History] Cyanocobalamin (B-12) [Vitamin B12] 1,000 mcg IM QMONTH 02/21/17 [History] Ipratropium/Albuterol Neb [Duoneb] 3 ml IH [id number] PRN 02/21/17 [History] Levothyroxine Sodium [Synthroid] 350 mcg PO DAILY 02/21/17 [History] Mometasone/Formoterol [Dulera 100 Mcg/5 Mcg Inhaler] 2 puff IH BID 02/21/17 [ History] Allergies/Adverse Reactions: Allergies codeine Adverse Reaction (Severe, Verified 11/08/16 09:29) Vomiting naproxen [From Naprosyn] Adverse Reaction (Severe, Verified 11/08/16 09:29) Vomiting Date of admission: 02/24/17 12:28 Primary care physician: Na Johansen CNP Consults: 02/25/17 07:00 Consult to Dialysis [CONS] ONCE Discharging clinician: Pasha Alexander Anticipated date of discharge: 02/25/17 - Patient Status Disposition: Home, Self-Care Condition: Good Functional capacity at discharge: independent ambulation Overall status at discharge: patient is back to baseline - Discharge Instructions Follow Up With: Na Johansen CNP [Primary Care Provider] - 03/04/17 10:00 am - Diet and Activity Activity: resume usual activities as tolerated Diet: low fat, low cholesterol, low salt diet Interval History: See below Hospital course: Ms. Parra is a 71 year old female She has a PMH of Short gut syndrome with ostomy and high output from her ostomy , ESRD on HD, GERD, Hypothyroidism, HTN She is admitted for generalized weakness , hypokalemia, uremia after missing a dose of her HD due to feeling of unwellness and bilateral lower extremity pains She is seen at bedside and evaluated at hemodialysis, she reports no new complains She is ambulatory back and forth to the bathroom to take care of her urostomy and ileostomy Her diarrhea improved with only one dose of Imodium Hypokalemia was secondary to diarrhea and has since resolved Her L permacath was successfully removed by IR She has had her routine dialysis and is stable and at her baseline She is discharged home to follow up with PCP and Nephrology as outpatient Time spent discussing smoking cessation with patient: 3 to 10 minutes (3 minutes spent on tobacco cessation counselling) - Time Spent with Patient Total time spent providing and/or coordinating discharge services: Less than 30 minutes - Constitutional Vitals: Temp Pulse Resp BP Pulse Ox 98.2 F 66 20 86/47 94 02/25/17 09:40 02/25/17 08:06 02/25/17 09:40 02/25/17 10:25 02/25/17 08:06 General appearance: Present: A&O X 3, pleasant, no acute distress - Head Head exam: Present: atraumatic, normocephalic - Eye Eye exam: Present: PERRL, conjuntiva pink, sclera anicteric Pupils: Present: PERRL - Neck Neck exam general surgery: Present: supple, trachea midline. Absent: lymphadenopathy - Respiratory Respiratory exam: Present: CTAB. Absent: accessory muscle use, rales, rhonchi, wheezes Additional comments: Right port, clean and dry - Cardiovascular Cardiovascular exam: Present: RRR, +S1, +S2. Absent: diastolic murmur, gallop, rubs, systolic murmur - GI/Abdominal GI/Abdominal exam: Present: normal bowel sounds, soft, no peritoneal signs. Absent: distended, tenderness Additional comments: Ileostomy bag empty, surrounding skin clean and dry - Extremities Exam Extremities exam: Present: warm, radial pulses palpable and symetrical. Absent : calf tenderness, cyanotic, pedal edema Additional comments: L AVF thrill - Neurological Exam Neurological exam: Present: CN II-XII intact, oriented X3, no focal deficits. Absent: pronater drift, facial droop, speech deficit - Skin Skin exam: Present: dry, intact
[2017-02-25] MEDS ORDERED: 0.9 % Sodium Chloride 2,000 ML ONE (11:35)
[2017-02-25 13:10] VITALS: BP 123/52
--- NOTE | 2017-02-25 13:49 | Nephrology Progress Note ---
Date of Encounter: 02/25/17 Time of Encounter: 09:25 - Assessment and Plan (1) ESRD (end stage renal disease) Current Visit: Yes Status: Chronic Attempted HD yesterday, though unable to cannulate catheter. Plan for HD today, patient seen in dialysis unit. Continue renal diet. Cont. renal multivitamins. Avoid nephrotoxins if possible (2) Hypocalcemia Current Visit: Yes Status: Acute Slight improvement Ca++ 6.4>8.5>7.5>7.2>7.8 Continue to monitor and replace as needed. (3) Hypomagnesemia Current Visit: No Status: Acute Mg 1.3 on 02/23/17, patient given 2gm Mg Sulfate at that time. (4) Hyperkalemia Current Visit: Yes Status: Acute Elevated today with K+ 5.4, plan for dialysis today. (5) Generalized weakness Current Visit: Yes Status: Acute Subjective Principal diagnosis: ESRD, Generalized weakness, LE pains Interval history: Patient seen and examined in the dialysis unit, as they were unable to cannulate patient's graft yesterday. States she is feeling better today. Objective - Vital Signs Vital signs: Vital Signs Temp Pulse Resp BP Pulse Ox 02/25/17 12:50 98.2 F 18 123/52 02/25/17 12:40 92/56 02/25/17 12:25 92/51 02/25/17 12:10 96/47 02/25/17 11:55 93/56 02/25/17 11:40 89/46 02/25/17 11:25 91/54 02/25/17 11:10 93/48 02/25/17 10:55 87/48 02/25/17 10:40 95/49 02/25/17 10:25 86/47 02/25/17 10:10 88/61 02/25/17 09:55 86/51 02/25/17 09:40 98.2 F 20 104/54 02/25/17 08:06 98.2 F 66 20 101/60 94 02/25/17 04:46 98.8 F 73 16 98/57 90 02/24/17 23:39 98.4 F 75 16 112/53 92 02/24/17 19:38 98.1 F 69 16 110/61 95 02/24/17 15:59 98.5 F 69 16 101/60 94 Intake and Output 02/24/17 02/25/17 02/25/17 23:59 07:59 15:59 Intake Total 200 / 200 300 / 300 600 / 600 Output Total 600 / 600 Balance 200 / 200 300 / 300 0 / 0 Intake: Oral 200 / 200 300 / 300 0 / 0 Intake, Rinseback and 600 / 600 Flushes Output: Urine 0 / 0 Total Dialysis Output 600 / 600 Other: Meal snack Weight 56.7 kg Hemodialysis Net Fluid 0 Removed (mL) Patient Weight 02/25/17 23:59 Weight 56.7 kg - General Appearance General appearance: Present: well-developed, appears started age, chronically ill, frail EENT: Present: ATNC, mucous membranes moist, hearing intact, vision intact Neck: Present: supple Respiratory: Present: course breath sounds, rhonchi Cardiology: Present: no edema, regular rate, regular rhythm Dialysis Vascular Access: Arteriovenous Graft Integumentary: Present: no rash, warm and dry Neurologic: Present: no focal deficit, alert and oriented x3 Musculoskeletal: Present: no deformities, no erythema, no cyanosis Psychiatric: Present: mood/affect appropriate, cooperative - Lab 02/25/17 05:42 02/25/17 05:42 Most recent lab results Calcium 7.8 mg/dL (8.6-10.8) L 02/25/17 05:42 Phosphorus 12.1 mg/dL (2.3-4.7) H 02/23/17 05:22 Magnesium 1.3 mg/dL (1.6-2.6) L 02/23/17 05:22 Consult Discharge Plan - Plan Referrals: Na Johansen CNP [Primary Care Provider] - 03/04/17 10:00 am
== END 2017-02-25 15:07 | disposition home or self-care (01) | DRG 470 ==
LOC: EMEROO 21:38 → 2ANU 21:38
PROVIDERS: ADMIT Internal Medicine; ATTEND Internal Medicine

== ENCOUNTER 2017-03-06 12:28 | Observation (INO) ==
--- NOTE | 2017-03-06 12:32 | Emergency Department Note ---
Disposition Clinical Impression: CKD (chronic kidney disease), Generalized weakness, Leg pain, Chronic diarrhea , Volume depletion, gastrointestinal loss, Hypomagnesemia, ESRD (end stage renal disease) on dialysis, Hypokalemia, Frail elderly, Hypotension Disposition: Admitted As Inpatient Referrals: NO,PCP [Non-Partnered Physician] - Forms: ED Satisfaction Letter General Adult HPI - General Chief complaint: ED Weakness Stated complaint: weakness - History of Present Illness HPI Narrative: 71-year-old female reports to the emergency department complaining of generalized weakness. She has a history of chronic vomiting and diarrhea, she has a colostomy as well. The patient is on dialysis. She was admitted to the hospital for hypokalemia and generalized weakness several days ago. The patient reports she felt weaker and weaker over the last day or so. No falls or injuries she has had a cough she has chronic COPD no chest pain or coughing up blood or leg swelling or pain. There is no history of fever. No bloody stools. She is not anticoagulated. There is no history of difficulty moving the arms or legs independently no slurred speech confusion or headache. No unilateral arm weakness or numbness. There is no history of rash. There is no history of bloody emesis or stool. She is currently not taking antibiotics. He patient describes generalized leg cramping or aching, there is no history of swelling or trauma. There has been no coldness blueness numbness or weakness of the arms or legs. She states she just had left cataract surgery several days ago there is no history of any acute ocular abnormaliity. - Related Data Home Medications Medication Instructions Recorded Confirmed Amitriptyline [Elavil] 50 mg PO HS 09/19/15 02/21/17 Amlodipine [Amlodipine Besylate] 10 mg PO DAILY 09/19/15 02/21/17 Cholecalciferol (Vitamin D3) 5,000 unit PO DAILY #0 09/19/15 02/21/17 [Vitamin D3] Ranitidine HCl [Zantac] 150 mg PO HS 09/19/15 02/21/17 Ondansetron HCl 4 mg PO Q8H PRN 11/08/16 02/21/17 Calcium Acetate [Phos-LO] 667 mg PO TIDWM 02/21/17 02/21/17 Cyanocobalamin (B-12) [Vitamin B12] 1,000 mcg IM QMONTH 02/21/17 02/21/17 Ipratropium/Albuterol Neb [Duoneb] 3 ml IH [id number] PRN 02/21/17 02/21/17 Levothyroxine Sodium [Synthroid] 350 mcg PO DAILY 02/21/17 02/21/17 Mometasone/Formoterol [Dulera 100 2 puff IH BID 02/21/17 02/21/17 Mcg/5 Mcg Inhaler] Allergies Allergy/AdvReac Type Severity Reaction Status Date / Time codeine AdvReac Severe Vomiting Verified 03/06/17 12:30 naproxen [From Naprosyn] AdvReac Severe Vomiting Verified 03/06/17 12:30 All systems ED: reviewed and negative except as stated. Past Medical History - Past Medical History Medical history: Reports: asthma, COPD, GERD, hypertension, renal disease, thyroid disease Surgical history: Reports: appendectomy, cholecystectomy, colostomy, hysterectomy, other Psychiatric history: Reports: no psych history - Social History Smoking Status: Current every day smoker Smokeless Tobacco Status: No Alcohol use: Reports: none Drug use: Reports: none Physical Exam - General Limitations: no limitations General appearance: alert, in no apparent distress - Head Head exam: atraumatic, normocephalic, normal inspection - Eye Eye exam: Present: normal appearance, PERRL, EOMI, miosis. Absent: scleral icterus, conjunctival injection - ENT ENT exam: normal exam, normal oropharynx, mucous membranes moist, TM's normal bilaterally, normal external ear exam - Neck Neck exam: Present: normal inspection, full ROM, trachea midline. Absent: tenderness - Chest Chest inspection: Present: symmetric chest wall rise. Absent: tenderness - Respiratory Respiratory exam: Present: prolonged expiratory phase, other (Coarse breath sounds bilaterally.). Absent: normal lung sounds bilaterally, respiratory distress, accessory muscle use - Cardiovascular Cardiovascular exam: Present: regular rate, normal rhythm, normal heart sounds - Abdominal Exam Abdominal exam: Present: soft, other (Her ostomy and colostomy in place. No bloody stool. Diffuse minimal tenderness in the abdomen.). Absent: distention , guarding, rebound, rigidity, trauma Abdominal tenderness: Present: diffuse, mild - Extremities Exam Extremities exam: Present: normal inspection, full ROM. Absent: tenderness, pedal edema, joint swelling, calf tenderness - Expanded Lower Extremity Exam Neurovascular/Tendon exam: Present: normal capillary refill. Absent: motor deficit, sensory deficit, tendon deficit, extremity cold to touch, pallor - Back Exam Back exam: Present: normal inspection, full ROM. Absent: tenderness, CVA tenderness (R), CVA tenderness (L), vertebral tenderness - Neurological Exam Neurological exam: Present: alert, oriented X3, CN II-XII intact. Absent: motor sensory deficit - Psychiatric Psychiatric exam: Present: normal affect, normal mood - Skin Skin exam: Present: warm, dry, intact, normal color. Absent: rash, cyanosis, diaphoresis, erythema, pallor, mottled Course Vital Signs Temperature 98.4 F 03/06/17 12:35 Pulse Rate 86 03/06/17 12:35 Respiratory Rate 16 03/06/17 12:35 Blood Pressure 86/61 03/06/17 12:35 O2 Sat by Pulse Oximetry 95 03/06/17 12:35 Temperature 98.4 F 03/06/17 12:35 Pulse Rate 76 03/06/17 14:07 Respiratory Rate 16 03/06/17 14:07 Blood Pressure 94/52 03/06/17 14:07 O2 Sat by Pulse Oximetry 94 03/06/17 14:07 Oxygen Delivery Oxygen Delivery Room Air Medical Decision Making - [facility] Narrative Medical decision making narrative: Patient is elderly, frail, and has chronic diarrhea, she describes some vomiting as well. Nonbloody, he patient is not anticoagulated The patient is currently not on antibiotics. The patient has an element of hypotension, she describes muscle cramps and ataxia, she does not feel comfortable going home she feels she will fall down. The patient is a dialysis patient. Her potassium and magnesium are low, she was given fluid in the ED and remained somewhat hypotensive with a systolic in the 90s. He patient displays coarse breath sounds. She has a history of COPD. A DuoNeb was ordered. No pneumonitis noted. The patient's lactic acid is negative, she is afebrile and has no elevation in her white count. She seems to be volume depleted. Based on the patient's age, multiple comorbidities, electrolyte abnormalities, weakness and inability to walk well, hypotension, and renal failure on dialysis , high risk for fall, and frail elderly, I thought it be would be appropriate to admit the patient to the hospital for electrolyte management and hydration. The patient is currently stable. I reviewed the case with the hospitalist on- call who is accepted the patient to their care. - Lab Data Lab results reviewed: Yes I reviewed the patient's lab results. Result diagrams: 03/06/17 13:00 03/06/17 13:00 Lab Results 03/06/17 03/06/17 03/06/17 Range/Units 13:00 13:00 13:00 WBC 10.4 (4.3-11.1) K/mcL RBC 3.99 (3.82-4.97) M/mcL Hgb 12.2 (11.5-15.4) g/dL Hct 36.6 (35.3-44.9) % MCV 91.7 (83.0-100.0) fL MCH 30.6 (28.0-33.3) pg MCHC 33.3 (31.6-35.5) g/dL RDW 13.3 (11.5-14.5) % Plt Count 124 L (140-400) K/mcL MPV 11.7 (9.4-12.4) fL Immature Gran % 0.4 (0-4) % Seg Neutrophils % 76.7 % Lymphocytes % 17.7 % Monocytes % 3.1 % Eosinophils % 1.7 % Basophils % 0.4 % Neutrophils # 7.9 (1.6-8.9) K/mcL Lymphocytes # 1.8 (0.6-4.6) K/mcL Monocytes # 0.3 (0.0-1.3) K/mcL Eosinophils # 0.2 (0.0-0.6) K/mcL Basophils # 0.0 (0.0-0.2) K/mcL PT 12.2 H (9.4-12.1) Seconds INR 1.1 Sodium 138 (136-145) mEq/L Potassium 3.4 L (3.5-4.5) mEq/L Chloride 96 L (98-109) mEq/L Carbon Dioxide 21 (19-29) mEq/L BUN 39 H (7-20) mg/dL Creatinine 10.25 H (0.57-1.11) mg/dL Est GFR ( Amer) 5 L (> 60) Est GFR (Non-Af Amer) 4 L (> 60) BUN/Creatinine Ratio 4 L (6-26) Glucose 75 (70-99) mg/dL Calculated Osmolality 294 (280-300) Lactic Acid (0.5-2.2) mmol/L Calcium 8.1 L (8.6-10.8) mg/dL Magnesium 1.4 L (1.6-2.6) mg/dL Total Bilirubin (0.2-1.2) mg/dL Direct Bilirubin (0.0-0.5) mg/dL Indirect Bilirubin (0.0-1.2) mg/dL AST (5-34) Units/L ALT (0-55) Units/L Alkaline Phosphatase (38-126) Units/L Troponin I (0-0.03) ng/mL C-Reactive Protein (Less than 5) mg/L Serum Total Protein (6.0-8.3) g/dL Albumin (3.5-5.0) g/dL Globulin (2.4-3.5) g/dL Albumin/Globulin Ratio (1.1-2.2) Lipase (8-78) Units/L 03/06/17 03/06/17 03/06/17 Range/Units 13:00 13:00 13:00 WBC (4.3-11.1) K/mcL RBC (3.82-4.97) M/mcL Hgb (11.5-15.4) g/dL Hct (35.3-44.9) % MCV (83.0-100.0) fL MCH (28.0-33.3) pg MCHC (31.6-35.5) g/dL RDW (11.5-14.5) % Plt Count (140-400) K/mcL MPV (9.4-12.4) fL Immature Gran % (0-4) % Seg Neutrophils % % Lymphocytes % % Monocytes % % Eosinophils % % Basophils % % Neutrophils # (1.6-8.9) K/mcL Lymphocytes # (0.6-4.6) K/mcL Monocytes # (0.0-1.3) K/mcL Eosinophils # (0.0-0.6) K/mcL Basophils # (0.0-0.2) K/mcL PT (9.4-12.1) Seconds INR Sodium (136-145) mEq/L Potassium (3.5-4.5) mEq/L Chloride (98-109) mEq/L Carbon Dioxide (19-29) mEq/L BUN (7-20) mg/dL Creatinine (0.57-1.11) mg/dL Est GFR ( Amer) (> 60) Est GFR (Non-Af Amer) (> 60) BUN/Creatinine Ratio (6-26) Glucose (70-99) mg/dL Calculated Osmolality (280-300) Lactic Acid 0.7 (0.5-2.2) mmol/L Calcium (8.6-10.8) mg/dL Magnesium (1.6-2.6) mg/dL Total Bilirubin 0.3 (0.2-1.2) mg/dL Direct Bilirubin 0.2 (0.0-0.5) mg/dL Indirect Bilirubin 0.1 (0.0-1.2) mg/dL AST 11 (5-34) Units/L ALT 7 (0-55) Units/L Alkaline Phosphatase 62 (38-126) Units/L Troponin I 0.01 (0-0.03) ng/mL C-Reactive Protein (Less than 5) mg/L Serum Total Protein 7.1 (6.0-8.3) g/dL Albumin 3.4 L (3.5-5.0) g/dL Globulin 3.7 H (2.4-3.5) g/dL Albumin/Globulin Ratio 0.9 L (1.1-2.2) Lipase 66 (8-78) Units/L 03/06/17 Range/Units 13:00 WBC (4.3-11.1) K/mcL RBC (3.82-4.97) M/mcL Hgb (11.5-15.4) g/dL Hct (35.3-44.9) % MCV (83.0-100.0) fL MCH (28.0-33.3) pg MCHC (31.6-35.5) g/dL RDW (11.5-14.5) % Plt Count (140-400) K/mcL MPV (9.4-12.4) fL Immature Gran % (0-4) % Seg Neutrophils % % Lymphocytes % % Monocytes % % Eosinophils % % Basophils % % Neutrophils # (1.6-8.9) K/mcL Lymphocytes # (0.6-4.6) K/mcL Monocytes # (0.0-1.3) K/mcL Eosinophils # (0.0-0.6) K/mcL Basophils # (0.0-0.2) K/mcL PT (9.4-12.1) Seconds INR Sodium (136-145) mEq/L Potassium (3.5-4.5) mEq/L Chloride (98-109) mEq/L Carbon Dioxide (19-29) mEq/L BUN (7-20) mg/dL Creatinine (0.57-1.11) mg/dL Est GFR ( Amer) (> 60) Est GFR (Non-Af Amer) (> 60) BUN/Creatinine Ratio (6-26) Glucose (70-99) mg/dL Calculated Osmolality (280-300) Lactic Acid (0.5-2.2) mmol/L Calcium (8.6-10.8) mg/dL Magnesium (1.6-2.6) mg/dL Total Bilirubin (0.2-1.2) mg/dL Direct Bilirubin (0.0-0.5) mg/dL Indirect Bilirubin (0.0-1.2) mg/dL AST (5-34) Units/L ALT (0-55) Units/L Alkaline Phosphatase (38-126) Units/L Troponin I (0-0.03) ng/mL C-Reactive Protein 2 (Less than 5) mg/L Serum Total Protein (6.0-8.3) g/dL Albumin (3.5-5.0) g/dL Globulin (2.4-3.5) g/dL Albumin/Globulin Ratio (1.1-2.2) Lipase (8-78) Units/L - Radiology Data Radiology results reviewed: Yes I reviewed the patient's radiology results. - EKG Data EKG #1 EKG shows normal: sinus rhythm Rate: normal Rhythm: NSR Interpretation: no acute changes
[2017-03-06] MEDS ORDERED: 0.9 % Sodium Chloride 1,000 ML IVC ONE (12:33)
[2017-03-06 13:13] LABS: Basophils % 0.4 %; Eosinophils # 0.2 K/mcL (0.0-0.6); Eosinophils % 1.7 %; Hematocrit 36.6 % (35.3-44.9); Hemoglobin 12.2 g/dL (11.5-15.4); Immature Granulocytes % 0.4 % (0-4); Lymphocytes # 1.8 K/mcL (0.6-4.6); Lymphocytes % 17.7 %; Mean Corpuscular HGB Conc 33.3 g/dL (31.6-35.5); Mean Corpuscular Hemoglobin 30.6 pg (28.0-33.3); Mean Corpuscular Volume 91.7 fL (83.0-100.0); Mean Platelet Volume 11.7 fL (9.4-12.4); Monocytes # 0.3 K/mcL (0.0-1.3); Monocytes % 3.1 %; Neutrophils # 7.9 K/mcL (1.6-8.9); Platelet Count 124 K/mcL (140-400); Red Blood Count 3.99 M/mcL (3.82-4.97); Red Cell Distribution Width 13.3 % (11.5-14.5); Segmented Neutrophils % 76.7 %
[2017-03-06 13:18] LABS: INR 1.1; Prothrombin Time 12.2 Seconds (9.4-12.1)
[2017-03-06] MEDS ORDERED: Ipratropium/Albuterol Neb 3 ML IH ONE (13:19)
[2017-03-06] MEDS ORDERED: Ondansetron 4 MG/2 ML VIAL IVP ONE (13:19)
[2017-03-06 13:25] LABS: Calcium 8.1 mg/dL (8.6-10.8); Magnesium 1.4 mg/dL (1.6-2.6); Potassium 3.4 mEq/L (3.5-4.5)
[2017-03-06 13:28] LABS: Albumin 3.4 g/dL (3.5-5.0); Albumin/Globulin Ratio 0.9 (1.1-2.2); Bilirubin,Direct 0.2 mg/dL (0.0-0.5); Bilirubin,Indirect 0.1 mg/dL (0.0-1.2); Bilirubin,Total 0.3 mg/dL (0.2-1.2); Globulin 3.7 g/dL (2.4-3.5); Total Protein 7.1 g/dL (6.0-8.3)
[2017-03-06] MEDS ORDERED: *HR* Morphine 2 MG/ML SYRINGE IVP ONE (18:40)
[2017-03-06] MEDS ORDERED: Magnesium Sulfate 2 GM in D5% in Water 100 ML IVPB ONE (18:54)
[2017-03-06] MEDS ORDERED: Naloxone 0.4 MG/ML INJ IVP PRN (19:50)
--- NOTE | 2017-03-06 19:59 | Internal Med History&Physical ---
Date of Encounter: 03/06/17 Time of Encounter: 19:54 Assessment and Plan (1) Abdominal pain Current visit: Yes Status: Acute 1 patient's history of diarrhea as well as short gut Syndrome will rule out possible infectious process 2. CT of abdomen 3 stool culture-c diff Qualifiers: Abdominal location: left upper quadrant Qualified Code(s): R10.12 - Left upper quadrant pain (2) Generalized weakness Current visit: Yes Status: Acute 1 patient is busy increasing weakness he has been unable to perform her ADLs she also complains of myalgias in her lower extremities. She denies any falls patient's potassium is 3 magnesium we will replace and monitor 2 placed patient on fall precautions 3 consult physical therapy for strengthening 4. visitor services information assistant concerning discharge planning (3) CKD (chronic kidney disease) Current visit: Yes Status: Acute 1 patient has history of end-stage renal disease. Nephrology has been consulted for dialysis 2 we will monitor intake and output daily weights 3 avoid nephrotoxins 4 renal diet Qualifiers: Chronic kidney disease stage: stage 5 Qualified Code(s): N18.5 - Chronic kidney disease, stage 5 (4) Hypokalemia Current visit: Yes Status: Acute 1 patient's potassium is 3.1. History of nausea vomiting and diarrhea we will place and continue to monitor 2 continuous cardiac monitoring (5) Hypomagnesemia Current visit: Yes Status: Acute 1 patient's magnesium was 1.[address] and continue to monitor (6) Hypotension Current visit: Yes Status: Acute 1 patient has been experiencing hypotension which I suspect is related to volume depletion. Patient has been experiencing nausea vomiting as well as she is a dialysis patient. We will hold antihypertensives for now. Patient was given 1 L IV fluid in the ER. We will be cautious replacement 2 monitor intake and output Qualifiers: Hypotension type: unspecified hypotension type Qualified Code(s): I95.9 - Hypotension, unspecified (7) COPD (chronic obstructive pulmonary disease) Current visit: Yes Status: Acute 1 encourage patient to stop smoking 2 bronchodilators 3 oxygen maintain SPO2 greater than 92% Qualifiers: COPD type: unspecified COPD Qualified Code(s): J44.9 - Chronic obstructive pulmonary disease, unspecified (8) Tobacco abuse Current visit: No Status: Chronic Encourage patient to stop smoking offered nicotine patch declined at this time (9) DVT prophylaxis Current visit: No Status: Acute 1scd Internal Medicine - H&P: HPI Chief complaint: Weakness Admitted From: Emergency Dept Plans for Post Hospital Care: Home History of present illness: Ms. Parra is a 71 year old female past medical history COPD GERD hypertension end-stage renal disease on dialysis hypothyroid nicotine use. Patient is a past history of chronic vomiting and diarrhea she also has a colostomy and urostomy. She is on hemodialysis 2 days week. Several days ago she was admitted to this hospital for hypokalemia and generalized weakness. She was discharged home and was doing well until yesterday when the patient began to experience increased weakness and nausea and vomiting. She denies any fevers chills she does have a cough which he states is chronic she denies any sputum production she denies any lower extremity swelling. She denies any recent antibiotic use she does complain of generalized leg cramping and aching as well as abdominal pain around her colostomy. Lower extremities are pink warm with brisk capillary refill she denies any numbness or tingling to weeks she did have recent cataract surgery days ago. She denies any sensation changes. She presented with the above complaints to the ER. According to ER records lab work did reveal low potassium 3.4 as well as magnesium level I.4. She was hypotensive on presentation with a systolic 86/61 pulse was 86 she was afebrile. She was 95% troponin was 0.01 lactate 0.7 patient was given antiemetics breathing treatments as well as pain medication and fluid in the ER she has been admitted for further workup and evaluation. Presently patient does not appear to be any respiratory distress she denies any chest pain at this time she does complain of cramping in her lower legs as well as pain around the colostomy site. Upon assessment abdomen is soft there is tenderness around colostomy site in her extremities are pink warm brisk capillary refill. Pulses present bilaterally. Lungs sounds with scattered coarse rhonchi throughout she has a moist nonproductive cough. Heart sounds S1-S2 with no rubs clicks murmurs gallops noted. Presently the patient is hemodynamically stable. I reviewed his recent plan. Past Med Surg Social Fam HX - Past Medical History Medical history: asthma, COPD, GERD, hypertension, renal disease, thyroid disease Psychiatric history: no psych history - Past Surgical History Surgical History: appendectomy, cholecystectomy, colostomy, hysterectomy, other - Social History Smoking Status: Current every day smoker Smokeless Tobacco Status: No Alcohol use: none Drug use: none - Family History Mother Adopted: No Living Status: Age at : 79 Cause of : CVA Hx Family Cardiac Disorders: Yes Hx Family Respiratory Disorders: No Hx Family Cancer: No Hx Family GI Disorders: No Hx Family Genitourinary Disorders: No Hx Family Endocrine Disorder: No Hx Family Musculoskeletal Disorders: No Hx Family Neuromuscular Disorders: No Hx Family Neurologic Disorders: No Hx Family HEENT Disorders: No Hx Family Autoimmune Disorders: No Hx Family Psychosocial Disorders: No Hx Family Medical Disorders: No Father Adopted: No Living Status: Age at : 80 Hx Family Cardiac Disorders: Yes Hx Family Respiratory Disorders: No Hx Family Cancer: No Hx Family GI Disorders: No Hx Family Genitourinary Disorders: No Hx Family Endocrine Disorder: No Hx Family Musculoskeletal Disorders: No Hx Family Neuromuscular Disorders: No Hx Family Neurologic Disorders: No Hx Family HEENT Disorders: No Hx Family Autoimmune Disorders: No Hx Family Reproductive Disorders: No Hx Family Psychosocial Disorders: No Hx Family Medical Disorders: No Internal Medicine - H&P: Meds Amitriptyline [Elavil] 50 mg PO HS 09/19/15 [History] Amlodipine [Amlodipine Besylate] 10 mg PO DAILY 09/19/15 [History] Cholecalciferol (Vitamin D3) [Vitamin D3] 5,000 unit PO DAILY #0 09/19/15 [ History] Ranitidine HCl [Zantac] 150 mg PO HS 09/19/15 [History] Ondansetron HCl 4 mg PO Q8H PRN 11/08/16 [History] Calcium Acetate [Phos-LO] 667 mg PO TIDWM 02/21/17 [History] Cyanocobalamin (B-12) [Vitamin B12] 1,000 mcg IM QMONTH 02/21/17 [History] Ipratropium/Albuterol Neb [Duoneb] 3 ml IH [id number] PRN 02/21/17 [History] Levothyroxine Sodium [Synthroid] 350 mcg PO 0630 02/21/17 [History] Mometasone/Formoterol [Dulera 100 Mcg/5 Mcg Inhaler] 2 puff IH BID 02/21/17 [ History] Allergies codeine Adverse Reaction (Severe, Verified 03/06/17 15:22) Vomiting naproxen [From Naprosyn] Adverse Reaction (Severe, Verified 03/06/17 15:22) Vomiting All Systems PM: A 10-system review of systems was performed and is negative for pertinent findings except as documented above in the HPI. - Constitutional Constitutional: weakness - Cardiovascular Cardiovascular ROS IM: no chest pain, no diaphoresis, no dyspnea, no lightheadedness, no palpitations, no syncope - Respiratory Respiratory: cough - Gastrointestinal Gastrointestinal: abdominal pain, diarrhea, nausea, vomiting - Genitourinary Genitourinary: no change in urinary stream, no dysuria, no flank pain, no hematuria - Musculoskeletal Musculoskeletal ROS IM: muscle weakness, myalgias, no numbness, no tingling - Neurological Neurological ROS: no confusion, no convulsions, no focal weakness, no numbness, no tingling, no tremor(s) - Constitutional Vitals: Temp Pulse Resp BP Pulse Ox 98.2 F 84 16 98/62 92 03/06/17 15:48 03/06/17 15:48 03/06/17 15:48 03/06/17 18:50 03/06/17 15:48 General appearance: Present: A&O X 3, underweight - Head Head exam: Present: atraumatic, normocephalic - Eye Eye exam: Present: PERRL, conjuntiva pink, sclera anicteric Pupils: Present: PERRL - Neck Neck exam general surgery: Present: supple, trachea midline. Absent: lymphadenopathy - Respiratory Respiratory exam: Present: rhonchi. Absent: accessory muscle use, rales, wheezes - Cardiovascular Cardiovascular exam: Present: RRR, +S1, +S2. Absent: diastolic murmur, gallop, rubs, systolic murmur - GI/Abdominal GI/Abdominal exam: Present: normal bowel sounds, soft, no peritoneal signs. Absent: distended, tenderness - Extremities Exam Extremities exam: Present: warm, radial pulses palpable and symetrical. Absent : calf tenderness, cyanotic, pedal edema - Neurological Exam Neurological exam: Present: CN II-XII intact, oriented X3, no focal deficits. Absent: pronater drift, facial droop, speech deficit - Skin Skin exam: Present: dry, intact Internal Med - H&P Results - Labs CBC & Chem 7: 03/06/17 13:00 03/06/17 13:00 - EKG Data EKG shows normal: sinus rhythm - Diagnostic Studies Other Images Additional comments: Chest X-Ray 03/06/17 12:33 IMPRESSION: No evidence for acute cardiopulmonary process. D/ / 03/06/2017 13:16:36 João Hopkins MD / kamla Interpreting Provider: João Hopkins MD
[2017-03-06] MEDS ORDERED: Cholecalciferol (D-3) 1,000 UNIT TABLET PO SCH (20:15)
[2017-03-06] MEDS: Ondansetron 4 MG/2 ML VIAL IVP PRN (20:37)
--- NOTE | 2017-03-06 20:38 | Event Note ---
Date of Encounter: 03/06/17 Time of Encounter: 20:38 patient seen and examined. Agree with assessment and plan
[2017-03-06] MEDS: Famotidine 20 MG TABLET PO SCH (20:39)
[2017-03-06] MEDS ORDERED: (Mometasone/Formoterol [Dulera 100 Mcg/5 Mcg Inhaler]) IH SCH (21:00)
[2017-03-06] MEDS ORDERED: Albuterol 2.5 MG/3 ML NEBULIZER IH PRN (21:09)
[2017-03-06] MEDS: traMADol 50 MG TABLET PO PRN (21:14)
[2017-03-06] MEDS: Ipratropium/Albuterol Neb 3 ML IH SCH (22:50)
[2017-03-07] MEDS ORDERED: *HR* Promethazine 25 MG/ML VIAL IVP ONE (00:14)
[2017-03-07] MEDS: Acetaminophen 325 MG TABLET PO PRN ×2 (00:19→06:25)
[2017-03-07] MEDS: traMADol 50 MG TABLET PO PRN ×2 (03:23→09:26)
[2017-03-07] MEDS: Ondansetron 4 MG/2 ML VIAL IVP PRN ×3 (03:25→20:03)
[2017-03-07 03:27] LABS: Magnesium 1.8 mg/dL (1.6-2.6)
[2017-03-07 04:08] LABS: Basophils % 0.3 %; Eosinophils # 0.2 K/mcL (0.0-0.6); Eosinophils % 2.1 %; Hematocrit 29.5 % (35.3-44.9); Hemoglobin 9.8 g/dL (11.5-15.4); Immature Granulocytes % 0.4 % (0-4); Immature Platelets 6.6 % (1.1-6.1); Lymphocytes # 1.7 K/mcL (0.6-4.6); Lymphocytes % 22.2 %; Mean Corpuscular HGB Conc 33.2 g/dL (31.6-35.5); Mean Corpuscular Hemoglobin 30.9 pg (28.0-33.3); Mean Corpuscular Volume 93.1 fL (83.0-100.0); Monocytes # 0.3 K/mcL (0.0-1.3); Monocytes % 3.8 %; Neutrophils # 5.4 K/mcL (1.6-8.9); Red Blood Count 3.17 M/mcL (3.82-4.97); Red Cell Distribution Width 13.2 % (11.5-14.5); Segmented Neutrophils % 71.2 %
[2017-03-07] MEDS: Ipratropium/Albuterol Neb 3 ML IH SCH ×2 (04:23→10:34)
[2017-03-07 04:34] LABS: Platelet Count 85 K/mcL (140-400)
[2017-03-07 07:34] LABS: Bilirubin,Urine Negative (Negative); Blood,Urine Large (Negative); Clarity,Urine Turbid (Clear); Color,Urine Yellow (Yellow); Glucose,Urine (UA) Normal (Normal); Ketones,Urine Negative (Negative); Leukocyte Esterase,Urine Small (Negative); Nitrite,Urine Negative (Negative); PH,Urine 6.5 pH Units (5.0-8.0); Protein,Urine >=1000 mg/dL (Neg-Trace); Specific Gravity,Urine 1.017 (1.010-1.025); Urobilinogen,Urine Normal (Normal)
[2017-03-07 07:37] LABS: Bacteria,Urine Many per hpf (None-Few); Squamous Epithelial Cell,Urine Many per lpf (None-Few)
[2017-03-07] MEDS: Calcium Acetate 667 MG CAPSULE PO SCH ×3 (08:00→17:09)
[2017-03-07] MEDS: Cholecalciferol (D-3) 1,000 UNIT TABLET PO SCH (08:00)
[2017-03-07] MEDS ORDERED: 0.9 % Sodium Chloride 250 ML IVC PRN (08:15)
[2017-03-07 08:25] LABS: RBC,Urine 50-100 per hpf (0-3); WBC,Urine 30-50 per hpf (0-3)
--- NOTE | 2017-03-07 09:57 | Internal Med Progress Note ---
Date of Encounter: 03/07/17 Time of Encounter: 08:55 - Assessment and plan (1) Abdominal pain Current Visit: Yes Status: Acute Assessment and plan: Appears to be a chronic process will continue supportive care has history of chronic diarrhea however was noted to have formed stools in the colostomy bag this morning CT abd/pelvis reported suspected wall thickening of a segment small descending colon concerning for colitis. However clinically patient has no signs of colitis or any infectious etiology. Will closely monitor pain control Pt is tolerating PO intake well Will obtain PT/OT eval, pt documented to have worsening weakness and possible placement after discharge Qualifiers: Abdominal location: left upper quadrant Qualified Code(s): R10.12 - Left upper quadrant pain (2) COPD (chronic obstructive pulmonary disease) Current Visit: Yes Status: Chronic Assessment and plan: Not in acute exacerbation will continue home medications pt is an everyday smoker and does not want to quit O2 supplementation as needed Qualifiers: COPD type: unspecified COPD Qualified Code(s): J44.9 - Chronic obstructive pulmonary disease, unspecified (3) ESRD (end stage renal disease) on dialysis Current Visit: Yes Status: Chronic Assessment and plan: Nephrology consultation requested for HD pt to get HD today (03/07/17) (4) Hypotension Current Visit: Yes Status: Acute Assessment and plan: Improved Clinically asymptomatic continue to closely monitor continue to hold Amlodipine Qualifiers: Hypotension type: unspecified hypotension type Qualified Code(s): I95.9 - Hypotension, unspecified (5) Ileostomy in place Current Visit: No Status: Chronic (6) Leg pain Current Visit: Yes Status: Acute Assessment and plan: chronic process continue home pain medications Qualifiers: Laterality: bilateral Qualified Code(s): M79.604 - Pain in right leg; M79.605 - Pain in left leg (7) Tobacco abuse Current Visit: No Status: Chronic Assessment and plan: smoking cessation counseling provided pt not ready to quit at this time Refused nicotine replacement therapy (8) Electrolyte abnormality Current Visit: Yes Status: Resolved Assessment and plan: Hypokalemia and hypomagnesemia resolved continue to monitor electrolytes and replace as needed (9) DVT prophylaxis Current Visit: No Status: Acute Assessment and plan: Heparin SQ - Subjective Interval history: Patient seen and examined at bedside. Resting in bed. Finished all of her breakfast this morning without any discomfort. Has colostomy and urostomy and reports of chronic abd pain, back, and billateral LE pain of unclear etiology. She is noted to have formed stools in her colostomy bag. Colostomy site is clean and nontender. It is reported that patient is having social issues and may need placement. Pt appears to be in no distress but reports of diffuse abd pain. - Constitutional Vitals: Temp Pulse Resp BP Pulse Ox 98.1 F 70 16 106/64 97 03/07/17 07:29 03/07/17 07:29 03/07/17 07:29 03/07/17 07:29 03/07/17 07:29 General appearance: Present: A&O X 3, no acute distress, underweight, answers questions appropriately - Head Head exam: Present: atraumatic, normocephalic - Eye Eye exam: Present: normal appearance, conjuntiva pink, sclera anicteric - Respiratory Respiratory exam: Present: CTAB. Absent: respiratory distress, wheezes - Cardiovascular Cardiovascular exam: Present: RRR, +S1, +S2 - GI/Abdominal GI/Abdominal exam: Present: normal bowel sounds, soft. Absent: distended, tenderness (colostomy and urostomy intact) - Extremities Exam Extremities exam: Present: warm, radial pulses palpable and symetrical. Absent : calf tenderness, pedal edema - Neurological Exam Neurological exam: Present: alert, oriented X3 - Psychiatric Psychiatric exam: Present: normal affect, normal mood Internal Medicine: Result - Labs CBC & Chem 7: 03/07/17 03:53 03/07/17 03:08 Labs: Short CBC 03/07/17 Range/Units 03:53 WBC 7.6 (4.3-11.1) K/mcL Hgb 9.8 L D (11.5-15.4) g/dL Hct 29.5 L (35.3-44.9) % Plt Count 85 L (140-400) K/mcL Neutrophils # 5.4 (1.6-8.9) K/mcL BMP 03/07/17 03:08 Sodium 135 L Potassium 4.0 Chloride 98 Carbon Dioxide 19 BUN 45 H Creatinine 10.24 H Glucose 73 Calcium 7.0 L Cardiac Enzymes 03/06/17 03/07/17 Range/Units 20:29 03:08 Troponin I 0.00 0.01 (0-0.03) ng/mL Urine 03/07/17 Range/Units 07:21 Urine Color Yellow (Yellow) Urine Clarity Turbid A (Clear) Urine pH 6.5 (5.0-8.0) pH Units Ur Specific Leonidas 1.017 (1.010-1.025) Urine Protein >=1000 H (Neg-Trace) mg/dL Urine Glucose (UA) Normal (Normal) mg/dL - ABG Interpretation ABG results: PT/INR, D-dimer PT 12.2 Seconds (9.4-12.1) H 03/06/17 13:00 - Impressions Impressions Abdomen/Pelvis CT 03/06/17 22:30 IMPRESSION: Suspected wall thickening of a segment small descending colon with adjacent ill definition of the pericolic fat. Correlation for colitis is recommended. Eventual follow-up to exclude neoplasm is recommended. Otherwise stable findings within the abdomen and pelvis. D/ / Dianne Araujo Cha, MD / Dianne Araujo Cha, MD Interpreting Provider: Dianne Araujo Cha, MD - VTE Documentation of Mechanical Device: Intermittent pneumatic compression device Consult Discharge Plan - Plan Referrals: Na Johansen, [employer] P[employer]NING LEADER [Primary Care Provider] -
[2017-03-07] MEDS: Budesonide/Formoterol 160/4.5 MDI IH SCH ×2 (10:34→22:55)
--- NOTE | 2017-03-07 10:51 | Nephrology Consult Note ---
<Bobby Allen - Last Filed: 03/07/17 15:24> Date of Encounter: 03/07/17 Time of Encounter: 10:00 Assessment and Plan (1) ESRD (end stage renal disease) on dialysis Status: Chronic Plan for HD today (normally Mon & Fri) Renal diet. Renal multivitamins. Avoid nephrotoxins if possible Check Phosphate, PTH, vitamin D Consider changing phosphate binder. Replete electrolytes as needed. She may require HD every M// going forward. (2) Hypocalcemia Status: Acute Ca. 8.7 > 7 Phosphate and PTH pending. See plan above. (3) Hypokalemia Status: Acute K+ 3.4>4 Replace as needed. See above plan. (4) Hypomagnesemia Status: Acute Mg 8.1>7 See above plan. (5) Abdominal pain Status: Chronic Per primary medicine. Consider referral to GI for ongoing GI issues of nausea, vomiting, diarrhea. Qualifiers: Abdominal location: left upper quadrant Qualified Code(s): R10.12 - Left upper quadrant pain (6) Chronic diarrhea Status: Chronic Per primary medicine team. See abdominal pain. (7) Leg pain Status: Chronic Chronic. Management per primary team. Qualifiers: Laterality: bilateral Qualified Code(s): M79.604 - Pain in right leg; M79.605 - Pain in left leg (8) COPD (chronic obstructive pulmonary disease) Status: Chronic Per primary medicine. Qualifiers: COPD type: unspecified COPD Qualified Code(s): J44.9 - Chronic obstructive pulmonary disease, unspecified History of Present Illness - Reason for Consult Consult date: 03/07/17 end stage renal disease Requesting physician: Rian Felton - Chief Complaint abdominal pain - History of Present Illness Ms. Parra is a 71 year old female that presents for worsening abdominal pian, nausea, vomiting, weakness. Past medical history COPD, GERD, hypertension, end- stage renal disease on dialysis, hypothyroid, nicotine use. Patient is a past history of chronic vomiting and diarrhea;with colostomy and urostomy. Recently admitted on 02/20/17-02/25/17 for weakness, electrolyte abnormalities. Noted in the ED to be hypotensive at 86/61, with hypokalemia and hypomagnesemia. Nephrology consulted for ESRD on HD twice weekly. Past Med Surg Social Fam HX - Past Medical History Attestation: Yes The following information was validated with the patient. Source: patient, old records reviewed, nursing notes reviewed Medical history: asthma, COPD, GERD, hypertension, renal disease, thyroid disease Psychiatric history: no psych history - Past Surgical History Surgical History: appendectomy, cholecystectomy, colostomy, hysterectomy, other - Social History Smoking Status: Current every day smoker Smokeless Tobacco Status: No Alcohol use: none Drug use: none - Family History Mother Adopted: No Living Status: Age at : 80 Cause of : CVA Hx Family Cardiac Disorders: Yes Hx Family Respiratory Disorders: No Hx Family Cancer: No Hx Family GI Disorders: No Hx Family Genitourinary Disorders: No Hx Family Endocrine Disorder: No Hx Family Musculoskeletal Disorders: No Hx Family Neuromuscular Disorders: No Hx Family Neurologic Disorders: No Hx Family HEENT Disorders: No Hx Family Autoimmune Disorders: No Hx Family Psychosocial Disorders: No Hx Family Medical Disorders: No Father Adopted: No Living Status: Age at : 80 Hx Family Cardiac Disorders: Yes Hx Family Respiratory Disorders: No Hx Family Cancer: No Hx Family GI Disorders: No Hx Family Genitourinary Disorders: No Hx Family Endocrine Disorder: No Hx Family Musculoskeletal Disorders: No Hx Family Neuromuscular Disorders: No Hx Family Neurologic Disorders: No Hx Family HEENT Disorders: No Hx Family Autoimmune Disorders: No Hx Family Reproductive Disorders: No Hx Family Psychosocial Disorders: No Hx Family Medical Disorders: No Medications and Allergies Amitriptyline [Elavil] 50 mg PO HS 09/19/15 [History] Cholecalciferol (Vitamin D3) [Vitamin D3] 5,000 unit PO DAILY #0 09/19/15 [ History] Ranitidine HCl [Zantac] 150 mg PO HS 09/19/15 [History] Ondansetron HCl 4 mg PO Q8H PRN 11/08/16 [History] Calcium Acetate [Phos-LO] 667 mg PO TIDWM 02/21/17 [History] Cyanocobalamin (B-12) [Vitamin B12] 1,000 mcg IM QMONTH 02/21/17 [History] Ipratropium/Albuterol Neb [Duoneb] 3 ml IH [id number] PRN 02/21/17 [History] Levothyroxine Sodium [Synthroid] 350 mcg PO 0630 02/21/17 [History] Mometasone/Formoterol [Dulera 100 Mcg/5 Mcg Inhaler] 2 puff IH BID 02/21/17 [ History] Ciprofloxacin [Cipro] 500 mg PO DAILY #4 03/10/17 [Rx] Lactobacillus [Culturelle] 1 each PO BID #60 cap.sprink 03/10/17 [Rx] metroNIDAZOLE [Flagyl] 500 mg PO Q8HR #15 tablet 03/10/17 [Rx] Allergies codeine Adverse Reaction (Severe, Verified 03/06/17 15:22) Vomiting naproxen [From Naprosyn] Adverse Reaction (Severe, Verified 03/06/17 15:22) Vomiting Review of Systems Constitutional: fatigue Cardiovascular: no chest pain, no edema Respiratory: no cough, no dyspnea Gastrointestinal: abdominal pain, diarrhea, nausea, vomiting Genitourinary Female: no dysuria Integumentary: no new lesions, no wounds Neurological: no confusion Endocrine: fatigue Exam - Vital Signs Vital signs: Initial Vital Signs Temp Pulse Resp BP Pulse Ox 98.4 F 86 16 86/61 95 03/06/17 12:35 03/06/17 12:35 03/06/17 12:35 03/06/17 12:35 03/06/17 12:35 Vital Signs - Last 8 Hours Temp Pulse Resp BP Pulse Ox 03/07/17 10:34 18 96 03/07/17 07:29 98.1 F 70 16 106/64 97 03/07/17 04:23 16 91 03/07/17 03:25 98.6 F 72 22 96/55 96 Intake and Output 03/06/17 03/07/17 03/07/17 23:59 07:59 15:59 Intake Total 904 / 904 500 / 500 0 / 0 Output Total 0 / 0 100 / 100 0 / 0 Balance 904 / 904 400 / 400 0 / 0 Intake: IV Fluids 104 / 104 Magnesium Sulfate 2 GM In 104 / 104 Dextrose 5% 100 ML @ 100 mls/hr IVPB ONCE ONE Rx# :[id number] Oral 800 / 800 500 / 500 0 / 0 Output: Urine 0 / 0 100 / 100 0 / 0 Other: Stool Size Moderate Stool Consistency soft Stool Color Brown Weight 53.4 kg Patient Weight 03/07/17 23:59 Weight 53.4 kg - General Appearance General appearance: appears started age, chronically ill, frail EENT: ATNC, mucous membranes dry, hearing intact, vision intact Neck: supple Respiratory: clear Cardiology: no edema, regular rate, regular rhythm Gastrointestinal: normoactive bowel sounds Integumentary: no rash, warm and dry Neurologic: no focal deficit, alert and oriented x3 Musculoskeletal: no deformities, no erythema, no cyanosis Psychiatric: mood/affect appropriate, cooperative Results - Lab Results 03/07/17 03:53 03/07/17 03:08 Most recent lab results Calcium 7.0 mg/dL (8.6-10.8) L 03/07/17 03:08 Magnesium 1.8 mg/dL (1.6-2.6) 03/07/17 03:08 Consult Discharge Plan - Plan Instructions: Urinary Tract Infection in Women (DC), Chronic Kidney Disease (DC ), Chronic Obstructive Pulmonary Disease (DC) Additional Instructions: Please follow up with your primary care physician within five days after your discharge from the hospital. Please ask your PCP about a referral to see It Operations Analyst in regards to your chronic diarrhea. Please resume oral antibiotics and Lactobacillus (probiotic) as prescribed. Please continue hemodialysis as per your construction project mgr. Due to your low blood pressure, your home dose of Amlodipine was placed on hold. Continue to hold this medication and closely monitor your blood pressure. Take this medication if you are noted to have SBP>140. Resume all other home medications as prescribed by your primary care physician. Referrals: Na Johansen CNP [Primary Care Provider] - 03/13/17 1:00 pm Prescriptions: metroNIDAZOLE [Flagyl] 500 mg PO Q8HR #15 tablet Ciprofloxacin [Cipro] 500 mg PO DAILY #4 Lactobacillus [Culturelle] 1 each PO BID #60 cap.sprshravan <Laila Gustafson - Last Filed: 03/14/17 06:28> Date of Encounter: 03/07/17 Assessment and Plan (1) Generalized weakness Status: Acute (2) ESRD (end stage renal disease) on dialysis Status: Chronic (3) Hyperphosphatemia Status: Acute (4) Hypomagnesemia Status: Acute Exam - Vital Signs Vital signs: Initial Vital Signs Temp Pulse Resp BP Pulse Ox 98.4 F 86 16 86/61 95 03/06/17 12:35 03/06/17 12:35 03/06/17 12:35 03/06/17 12:35 03/06/17 12:35 Results - Lab Results 03/10/17 04:03 03/10/17 04:03 Most recent lab results Calcium 7.3 mg/dL (8.6-10.8) L 03/10/17 04:03 Phosphorus 8.8 mg/dL (2.3-4.7) H 03/10/17 04:03 Magnesium 1.9 mg/dL (1.6-2.6) 03/10/17 04:03 - Attending Attestation I examined this patient and my medical decision-making was reviewed with the RELATIONSHIP COUNSELOR/PA/Advanced Practice Nurse/Resident Physician. I agree with the documented findings, disposition and treatment plan as described except to the extent set forth below. Pt seen and examined with PMH of ESRD on HD (MF) admitted with GI symptoms similar to last 2 hospital stays. She has a colostomy and urostomy and reports N /V along with high, watery output from her colostomy. Will continue her HD cautiously given her chronic volume depletion with no UF and some saline bolus if needed. Will check her PTH and pphos and increase binder as needed
[2017-03-07] MEDS ORDERED: Ipratropium/Albuterol Neb 3 ML IH PRN (11:43)
[2017-03-07 15:31] LABS: Hepatitis B Surface Antibody 1.04 mIU/mL; Hepatitis B Surface Antigen Nonreactive (Nonreactive)
[2017-03-07] MEDS: *HR* Promethazine 25 MG/ML VIAL IVP PRN (15:50)
[2017-03-07 16:07] LABS: Phosphorous 13.1 mg/dL (2.3-4.7)
[2017-03-07] MEDS: *HR* Heparin 5,000 UNIT/ML VIAL SQ SCH (17:09)
--- NOTE | 2017-03-07 17:40 | Electrocardiograph Report ---
[place] [id number] Test Date: 2017-03-06 Pat Name: Vannessa Parra Department: 103 Room: 2A Gender: F Media Services Specialist: : [id number] Requested By: Navin Chaudhry Order Number: [id number] Reading MD: Angelica Germain Measurements Intervals [place]inson Rate: 79 P: 85 TN: 129 QRS: 82 QRSD: 92 T: 72 QT: 382 QTc: 416 Interpretive Statements SINUS RHYTHM Electronically Signed On 03-07-2017 17:38:53 EDT by Angelica Germain
[2017-03-07] MEDS ORDERED: *HR* Morphine 2 MG/ML SYRINGE IVP PRN (21:09)
[2017-03-07] MEDS: Famotidine 20 MG TABLET PO SCH (22:32)
[2017-03-08] MEDS ORDERED: 0.9 % Sodium Chloride 500 ML IVC PRN (00:59)
[2017-03-08] MEDS: *HR* Promethazine 25 MG/ML VIAL IVP PRN ×2 (01:10→14:08)
[2017-03-08] MEDS: traMADol 50 MG TABLET PO PRN (02:58)
[2017-03-08] MEDS: Ondansetron 4 MG/2 ML VIAL IVP PRN ×3 (05:05→16:32)
[2017-03-08] MEDS: *HR* Heparin 5,000 UNIT/ML VIAL SQ SCH ×2 (05:05→17:43)
[2017-03-08] MEDS: 0.9 % Sodium Chloride 250 ML IVC PRN ×3 (05:56→07:01)
[2017-03-08] MEDS: Cholecalciferol (D-3) 1,000 UNIT TABLET PO SCH (08:20)
[2017-03-08] MEDS: Calcium Acetate 667 MG CAPSULE PO SCH ×3 (08:20→16:50)
[2017-03-08] MEDS: MetroNIDAZOLE 500 MG/100 ML 500 MG/100 ML BAG IVPB SCH ×2 (08:21→16:25)
[2017-03-08] MEDS: Acetaminophen 325 MG TABLET PO PRN ×2 (09:21→17:40)
--- NOTE | 2017-03-08 09:42 | Internal Med Progress Note ---
Date of Encounter: 03/08/17 Time of Encounter: 09:40 - Assessment and plan (1) UTI (urinary tract infection) Current Visit: Yes Status: Acute Assessment and plan: Urine culture preliminary report positive for Gram negative rods Will start Ciprofloxacin follow up official culture reports Qualifiers: Urinary tract infection type: site unspecified Hematuria presence: without hematuria Qualified Code(s): N39.0 - Urinary tract infection, site not specified (2) Abdominal pain Current Visit: Yes Status: Chronic Assessment and plan: Given persistent pain and diarrhea, will treat for Collitis Start Ciprofloxacin and Metronidazole continue colostomy care pain control pt tolerating PO intake well at this time. PT eval noted: pt independent with ambulation Qualifiers: Abdominal location: left upper quadrant Qualified Code(s): R10.12 - Left upper quadrant pain (3) COPD (chronic obstructive pulmonary disease) Current Visit: Yes Status: Chronic Assessment and plan: Not in acute exacerbation will continue home medications pt is an everyday smoker and does not want to quit O2 supplementation as needed Qualifiers: COPD type: unspecified COPD Qualified Code(s): J44.9 - Chronic obstructive pulmonary disease, unspecified (4) ESRD (end stage renal disease) on dialysis Current Visit: Yes Status: Chronic Assessment and plan: Nephrology consultation appreciated HD on MWF s/p HD on 03/07/17 (5) Hypotension Current Visit: Yes Status: Acute Assessment and plan: Improved Clinically asymptomatic continue to closely monitor continue to hold Amlodipine Qualifiers: Hypotension type: unspecified hypotension type Qualified Code(s): I95.9 - Hypotension, unspecified (6) Ileostomy in place Current Visit: No Status: Chronic (7) Leg pain Current Visit: Yes Status: Chronic Assessment and plan: chronic process continue home pain medications Qualifiers: Laterality: bilateral Qualified Code(s): M79.604 - Pain in right leg; M79.605 - Pain in left leg (8) Tobacco abuse Current Visit: No Status: Chronic Assessment and plan: smoking cessation counseling provided pt not ready to quit at this time Refused nicotine replacement therapy (9) Electrolyte abnormality Current Visit: Yes Status: Resolved (10) DVT prophylaxis Current Visit: No Status: Acute Assessment and plan: Heparin SQ - Subjective Interval history: Patient seen and examined at bedside. Noted to be hypotensive overnight, requiring 1L IVF. BP currently at 104/68. Reports of chronically having low blood pressure and denies any headache, dizziness, lightheadness at this time. Continues to have diffuse abd pain and chronic lower extremity and back pain. - Constitutional Vitals: Temp Pulse Resp BP Pulse Ox 97.9 F 65 16 90/48 92 03/08/17 06:58 03/08/17 06:58 03/08/17 06:58 03/08/17 06:58 03/08/17 06:58 General appearance: Present: A&O X 3, no acute distress, underweight, answers questions appropriately - Head Head exam: Present: atraumatic, normocephalic - Eye Eye exam: Present: normal appearance, conjuntiva pink, sclera anicteric - Respiratory Respiratory exam: Present: CTAB. Absent: accessory muscle use, rales, rhonchi, wheezes - Cardiovascular Cardiovascular exam: Present: RRR, +S1, +S2. Absent: diastolic murmur, gallop, rubs, systolic murmur - GI/Abdominal GI/Abdominal exam: Present: normal bowel sounds, soft, no peritoneal signs. Absent: distended, tenderness Additional comments: colostomy intact with loose stool in bag urostomy intact - Extremities Exam Extremities exam: Present: warm, radial pulses palpable and symetrical. Absent : calf tenderness, cyanotic, pedal edema - Neurological Exam Neurological exam: Present: alert, oriented X3 - Psychiatric Psychiatric exam: Present: normal affect, normal mood Internal Medicine: Result - Labs CBC & Chem 7: 03/07/17 03:53 03/07/17 03:08 - ABG Interpretation ABG results: PT/INR, D-dimer PT 12.2 Seconds (9.4-12.1) H 03/06/17 13:00 - Impressions Impressions Abdomen/Pelvis CT 03/08/17 02:50 IMPRESSION: No definite acute abnormality. Small foci of air centrally most likely biliary air. There is limitation without oral and intravenous contrast. Extensive prior surgery including bowel and left lower abdominal ostomy unchanged. The bowel would be better evaluated with oral and intravenous contrast. D/ / Harshad Mittal MD / Harshad Mittal MD Interpreting Provider: Harshad Mittal MD - VTE Documentation of Mechanical Device: Intermittent pneumatic compression device Consult Discharge Plan - Plan Referrals: Na Johansen, TYLER [Primary Care Provider] - 03/13/17 1:00 pm
[2017-03-08] MEDS: Budesonide/Formoterol 160/4.5 MDI IH SCH ×2 (11:15→23:10)
[2017-03-08] MEDS ORDERED: 0.9 % Sodium Chloride 500 ML ONE ×2 (11:52→18:05)
[2017-03-08] MEDS ORDERED: 0.9 % Sodium Chloride 500 ML IV SCH (12:00)
--- NOTE | 2017-03-08 12:26 | Nephrology Progress Note ---
Date of Encounter: 03/08/17 Time of Encounter: 12:00 - Assessment and Plan (1) Generalized weakness Current Visit: Yes Status: Acute (2) ESRD (end stage renal disease) on dialysis Current Visit: Yes Status: Chronic s/p HD yesterday, next HD planned for friday for clearance onlu, not UF. Ok to bolus NS for hypotension in the meantime and even give maintenace fluid if needed (3) Hyperphosphatemia Current Visit: No Status: Acute Increase phoslo to 2 tabs with meals Subjective Interval history: Pt seen and examined s/p HD yesterday with hypotensive episode today requiring NS boluses. She reports continued increased output from colostomy. brother at bedside. Objective - Vital Signs Vital signs: Vital Signs Temp Pulse Resp BP Pulse Ox 03/08/17 11:16 16 95 03/08/17 11:04 98.1 F 64 16 82/40 95 03/08/17 06:58 97.9 F 65 16 90/48 92 03/08/17 06:45 97.9 F 67 16 82/40 94 03/08/17 06:40 72/36 03/08/17 06:03 92/48 03/08/17 05:25 98.5 F 70 16 72/40 95 03/08/17 02:34 80/49 03/08/17 02:00 89/55 03/08/17 00:26 82/54 03/08/17 00:03 99.1 F 76 16 80/50 92 03/07/17 21:15 98 F 18 99/49 03/07/17 21:00 101/47 03/07/17 20:45 97/51 03/07/17 20:30 99/54 03/07/17 20:15 96/44 03/07/17 20:00 90/48 03/07/17 19:45 96/44 03/07/17 19:30 98/46 03/07/17 19:15 96/44 03/07/17 19:00 105/60 03/07/17 18:45 106/60 03/07/17 18:30 110/56 03/07/17 18:15 98.1 F 20 107/62 03/07/17 16:20 98.4 F 74 16 93/57 96 Intake and Output 03/07/17 03/08/1703/08/17 23:59 07:59 15:59 Intake Total 920 / 920 500 / 500 360 / 360 Output Total 2300 / 2300 0 / 0 Balance -1380 / -1380 500 / 500 360 / 360 Intake: IV Fluids 500 / 500 0.9 % Sodium Chloride 250 500 / 500 ML @ 937.5 mls/hr IVC . Q16M PRN Rx#:[id number] Oral 320 / 320 0 / 0 360 / 360 Intake, Rinseback and 600 / 600 Flushes Output: Urine 0 / 0 0 / 0 Stool 1200 / 1200 Total Dialysis Output 1100 / 1100 Other: Meal Dinner Breakfast Percent of Meal Consumed 100% 100% Hemodialysis Net Fluid 1100 Removed (mL) - General Appearance General appearance: Present: chronically ill (NAD) EENT: Present: ATNC, mucous membranes dry Neck: Present: no JVD, supple Respiratory: Present: clear Cardiology: Present: no edema, regular rate, regular rhythm, normal S1, normal S2 Gastrointestinal: Present: no tenderness, no guarding Integumentary: Present: no rash, warm and dry Neurologic: Present: no focal deficit Musculoskeletal: Present: no deformities Psychiatric: Present: mood/affect appropriate - Lab 03/07/17 03:53 03/07/17 03:08 Most recent lab results Calcium 7.0 mg/dL (8.6-10.8) L 03/07/17 03:08 Phosphorus 13.1 mg/dL (2.3-4.7) H 03/07/17 03:08 Magnesium 1.8 mg/dL (1.6-2.6) 03/07/17 03:08 - VTE Documentation of Mechanical Device: Intermittent pneumatic compression device Consult Discharge Plan - Plan Referrals: Na Johansen [employer] [Primary Care Provider] - 03/13/17 1:00 pm
[2017-03-08] MEDS: Lactobacillus 1 EACH CAP.SPRINK PO SCH ×2 (14:07→21:02)
[2017-03-08] MEDS ORDERED: 0.9 % Sodium Chloride 500 ML IVC ONE (18:19)
[2017-03-08] MEDS ORDERED: 0.9 % Sodium Chloride 1,000 ML IVC ONE (19:58)
[2017-03-08 21:39] LABS: Basophils % 0.2 %; Hematocrit 25.9 % (35.3-44.9); Lymphocytes % 22.3 %; Segmented Neutrophils % 67.8 %
[2017-03-08 21:41] LABS: Eosinophils # 0.3 K/mcL (0.0-0.6); Hemoglobin 8.4 g/dL (11.5-15.4); Immature Granulocytes % 0.4 % (0-4); Immature Platelets 7.3 % (1.1-6.1); Lymphocytes # 1.2 K/mcL (0.6-4.6); Mean Corpuscular HGB Conc 32.4 g/dL (31.6-35.5); Mean Corpuscular Hemoglobin 30.9 pg (28.0-33.3); Mean Corpuscular Volume 95.2 fL (83.0-100.0); Mean Platelet Volume 11.9 fL (9.4-12.4); Monocytes # 0.2 K/mcL (0.0-1.3); Monocytes % 4.3 %; Neutrophils # 3.7 K/mcL (1.6-8.9); Red Blood Count 2.72 M/mcL (3.82-4.97); Red Cell Distribution Width 13.4 % (11.5-14.5)
[2017-03-08 21:45] LABS: Platelet Count 65 K/mcL (140-400)
[2017-03-09] MEDS: MetroNIDAZOLE 500 MG/100 ML 500 MG/100 ML BAG IVPB SCH ×4 (00:13→23:50)
[2017-03-09] MEDS: Acetaminophen 325 MG TABLET PO PRN ×4 (00:14→22:07)
[2017-03-09] MEDS: traMADol 50 MG TABLET PO PRN (02:14)
[2017-03-09] MEDS: Ondansetron 4 MG/2 ML VIAL IVP PRN ×3 (06:12→20:00)
[2017-03-09] MEDS: *HR* Heparin 5,000 UNIT/ML VIAL SQ SCH ×2 (06:12→17:39)
[2017-03-09 06:34] LABS: Basophils % 0.2 %; Eosinophils # 0.3 K/mcL (0.0-0.6); Eosinophils % 6.3 %; Hematocrit 26.2 % (35.3-44.9); Hemoglobin 8.4 g/dL (11.5-15.4); Immature Granulocytes % 0.6 % (0-4); Lymphocytes # 1.1 K/mcL (0.6-4.6); Lymphocytes % 22.3 %; Mean Corpuscular HGB Conc 32.1 g/dL (31.6-35.5); Mean Corpuscular Volume 96.7 fL (83.0-100.0); Mean Platelet Volume 11.2 fL (9.4-12.4); Monocytes # 0.2 K/mcL (0.0-1.3); Neutrophils # 3.2 K/mcL (1.6-8.9); Red Blood Count 2.71 M/mcL (3.82-4.97); Red Cell Distribution Width 13.7 % (11.5-14.5); Segmented Neutrophils % 66.6 %
[2017-03-09 06:35] LABS: Platelet Count 61 K/mcL (140-400)
[2017-03-09 06:45] LABS: Magnesium 1.4 mg/dL (1.6-2.6); Phosphorous 8.2 mg/dL (2.3-4.7); Potassium 4.1 mEq/L (3.5-4.5)
[2017-03-09] MEDS ORDERED: Magnesium Sulfate 2 GM in D5% in Water 100 ML IVPB ONE (07:32)
[2017-03-09] MEDS: Calcium Acetate 667 MG CAPSULE PO SCH ×3 (07:56→16:49)
[2017-03-09] MEDS: Cholecalciferol (D-3) 1,000 UNIT TABLET PO SCH (07:56)
[2017-03-09] MEDS: Lactobacillus 1 EACH CAP.SPRINK PO SCH ×2 (07:56→20:00)
--- NOTE | 2017-03-09 10:07 | Internal Med Progress Note ---
Date of Encounter: 03/09/17 Time of Encounter: 10:05 - Assessment and plan (1) UTI (urinary tract infection) Current Visit: Yes Status: Acute Assessment and plan: Urine culture positive for E.Coli and Klebsiella Pneumoniae Will continue ciprofloxacin Qualifiers: Urinary tract infection type: site unspecified Hematuria presence: without hematuria Qualified Code(s): N39.0 - Urinary tract infection, site not specified (2) Abdominal pain Current Visit: Yes Status: Chronic Assessment and plan: Pt clinically improving Will continue treatment for Colitis Continue Ciprofloxacin and Metronidazole continue colostomy care pain control pt tolerating PO intake well at this time. PT eval noted: pt independent with ambulation Qualifiers: Abdominal location: left upper quadrant Qualified Code(s): R10.12 - Left upper quadrant pain (3) COPD (chronic obstructive pulmonary disease) Current Visit: Yes Status: Chronic Assessment and plan: Not in acute exacerbation will continue home medications pt is an everyday smoker and does not want to quit O2 supplementation as needed Qualifiers: COPD type: unspecified COPD Qualified Code(s): J44.9 - Chronic obstructive pulmonary disease, unspecified (4) ESRD (end stage renal disease) on dialysis Current Visit: Yes Status: Chronic Assessment and plan: Nephrology consultation appreciated HD on MWF s/p HD on 03/07/17 (5) Hypotension Current Visit: Yes Status: Acute Assessment and plan: Improved Clinically asymptomatic continue to closely monitor continue to hold Amlodipine Qualifiers: Hypotension type: unspecified hypotension type Qualified Code(s): I95.9 - Hypotension, unspecified (6) Ileostomy in place Current Visit: No Status: Chronic (7) Leg pain Current Visit: Yes Status: Chronic Assessment and plan: chronic process continue home pain medications Qualifiers: Laterality: bilateral Qualified Code(s): M79.604 - Pain in right leg; M79.605 - Pain in left leg (8) Tobacco abuse Current Visit: No Status: Chronic Assessment and plan: smoking cessation counseling provided pt not ready to quit at this time Refused nicotine replacement therapy (9) Electrolyte abnormality Current Visit: Yes Status: Resolved Assessment and plan: hypomagnesemia Mg supplemented continue to monitor electrolytes and replace as needed (10) DVT prophylaxis Current Visit: No Status: Acute Assessment and plan: Heparin SQ - Subjective Interval history: Patient seen and examined at bedside. Resting in bed and reports of feeling better and noted to have formed stools. States is better controlled and denies any discomfort at this time. BP better controlled. Pt eating her meals well. No overnight issues reported. - Constitutional Vitals: Temp Pulse Resp BP Pulse Ox 98.1 F 60 17 106/54 95 03/09/17 07:12 03/09/17 07:12 03/09/17 07:12 03/09/17 07:12 03/09/17 07:12 General appearance: Present: A&O X 3, no acute distress, underweight, answers questions appropriately - Head Head exam: Present: atraumatic, normocephalic - Eye Eye exam: Present: normal appearance, conjuntiva pink, sclera anicteric - Respiratory Respiratory exam: Present: CTAB. Absent: respiratory distress, wheezes - Cardiovascular Cardiovascular exam: Present: RRR, +S1, +S2. Absent: diastolic murmur, gallop, rubs, systolic murmur - GI/Abdominal GI/Abdominal exam: Present: normal bowel sounds, soft, no peritoneal signs. Absent: distended, tenderness Additional comments: colostomy and urostomy intact - Extremities Exam Extremities exam: Present: warm, radial pulses palpable and symetrical. Absent : calf tenderness, cyanotic, pedal edema - Neurological Exam Neurological exam: Present: alert, oriented X3 - Psychiatric Psychiatric exam: Present: normal affect, normal mood Internal Medicine: Result - Labs CBC & Chem 7: 03/09/17 06:10 03/09/17 06:10 Labs: Short CBC 03/08/17 03/09/17 Range/Units 21:30 06:10 WBC 5.4 4.8 (4.3-11.1) K/mcL Hgb 8.4 L 8.4 L (11.5-15.4) g/dL Hct 25.9 L 26.2 L (35.3-44.9) % Plt Count 65 L 61 L (140-400) K/mcL Neutrophils # 3.7 3.2 (1.6-8.9) K/mcL BMP 03/09/17 06:10 Sodium 138 Potassium 4.1 Chloride 109 Carbon Dioxide 19 BUN 37 H Creatinine 7.30 H Glucose 105 H Calcium 7.0 L - ABG Interpretation ABG results: PT/INR, D-dimer PT 12.2 Seconds (9.4-12.1) H 03/06/17 13:00 - VTE Documentation of Mechanical Device: Intermittent pneumatic compression device Consult Discharge Plan - Plan Referrals: Na Johansen CNP [Primary Care Provider] - 03/13/17 1:00 pm
[2017-03-09] MEDS: Budesonide/Formoterol 160/4.5 MDI IH SCH ×2 (10:39→20:33)
--- NOTE | 2017-03-09 12:48 | Nephrology Progress Note ---
Date of Encounter: 03/09/17 Time of Encounter: 12:45 - Assessment and Plan (1) Generalized weakness Current Visit: Yes Status: Acute likely from on going GI losses with some degree of malabsorption (2) ESRD (end stage renal disease) on dialysis Current Visit: Yes Status: Chronic Next HD planned tomorrow for [place] no UF but BN/SCr noted improved after more NS boluses yesterday consistent with pre-renal from continued chronic GI losses (3) Hyperphosphatemia Current Visit: No Status: Acute Improving with increased phoslo, will continue (4) Hypomagnesemia Current Visit: Yes Status: Acute Will replete more aggressively Subjective Interval history: Pt seen and examined feeling better today with more formed stools via colostomy and improved SOL readings. Family at bedside Objective - Vital Signs Vital signs: Vital Signs Temp Pulse Resp BP Pulse Ox 03/09/17 11:31 97.9 F 60 18 108/58 97 03/09/17 10:40 17 95 03/09/17 07:12 98.1 F 60 17 106/54 95 03/09/17 04:52 102/56 03/09/17 04:04 98 F 57 16 102/50 96 03/09/17 02:19 92/54 03/09/17 00:20 94/56 03/08/17 23:37 98.1 F 64 17 85/48 94 03/08/17 23:10 16 94 03/08/17 21:14 80/38 03/08/17 19:49 98.1 F 64 16 78/43 97 03/08/17 19:31 88/42 03/08/17 15:37 98.1 F 63 16 82/46 97 Intake and Output 03/08/17 03/09/17 03/09/17 23:59 07:59 15:59 Intake Total 100 / 100 100 / 100 560 / 560 Output Total 600 / 600 1250 / 1250 Balance -500 / -500 -1150 / -1150 560 / 560 Intake: IV Fluids 100 / 100 100 / 100 Flagyl Premix 500 MG/100 100 / 100 100 / 100 ML 500 mg In 100 ml @ 100 mls/hr IVPB Q8HR [facility] Rx# :[id number] Oral 0 / 0 0 / 0 560 / 560 Output: Urine 0 / 0 Stool 600 / 600 1150 / 1150 Urostomy 100 / 100 Other: Meal Breakfast Percent of Meal Consumed 0% Stool Consistency loose liquid Stool Color Brown Weight 53.8 kg Patient Weight 03/09/17 23:59 Weight 53.8 kg - General Appearance General appearance: Present: chronically ill EENT: Present: ATNC, mucous membranes moist Neck: Present: no JVD, supple Cardiology: Present: no edema, normal S1, normal S2 Gastrointestinal: Present: no tenderness, no guarding Integumentary: Present: warm and dry Neurologic: Present: no focal deficit Musculoskeletal: Present: no deformities Psychiatric: Present: mood/affect appropriate - Lab 03/09/17 06:10 03/09/17 06:10 Most recent lab results Calcium 7.0 mg/dL (8.6-10.8) L 03/09/17 06:10 Phosphorus 8.2 mg/dL (2.3-4.7) H 03/09/17 06:10 Magnesium 1.4 mg/dL (1.6-2.6) L 03/09/17 06:10 - VTE Documentation of Mechanical Device: Intermittent pneumatic compression device Consult Discharge Plan - Plan Referrals: Na Johansen, COURTESY V[employer]IVER [Primary Care Provider] - 03/13/17 1:00 pm
[2017-03-10 04:29] LABS: Basophils % 0.2 %; Hemoglobin 8.2 g/dL (11.5-15.4)
[2017-03-10 04:31] LABS: Calcium 7.3 mg/dL (8.6-10.8); Eosinophils # 0.4 K/mcL (0.0-0.6); Hematocrit 25.5 % (35.3-44.9); Immature Granulocytes % 0.2 % (0-4); Immature Platelets 6.7 % (1.1-6.1); Lymphocytes % 22.1 %; Magnesium 1.9 mg/dL (1.6-2.6); Mean Corpuscular HGB Conc 32.2 g/dL (31.6-35.5); Mean Corpuscular Hemoglobin 31.2 pg (28.0-33.3); Mean Platelet Volume 11.9 fL (9.4-12.4); Monocytes # 0.2 K/mcL (0.0-1.3); Monocytes % 4.3 %; Phosphorous 8.8 mg/dL (2.3-4.7); Potassium 4.9 mEq/L (3.5-4.5); Red Blood Count 2.63 M/mcL (3.82-4.97); Red Cell Distribution Width 13.8 % (11.5-14.5); Segmented Neutrophils % 65.2 %
[2017-03-10 04:39] LABS: Platelet Count 74 K/mcL (140-400)
[2017-03-10] MEDS: Acetaminophen 325 MG TABLET PO PRN (06:15)
[2017-03-10] MEDS: Ondansetron 4 MG/2 ML VIAL IVP PRN (06:15)
[2017-03-10] MEDS: *HR* Heparin 5,000 UNIT/ML VIAL SQ SCH (06:19)
[2017-03-10] MEDS: Lactobacillus 1 EACH CAP.SPRINK PO SCH (07:40)
[2017-03-10] MEDS: Calcium Acetate 667 MG CAPSULE PO SCH ×2 (07:40→11:50)
[2017-03-10] MEDS: Cholecalciferol (D-3) 1,000 UNIT TABLET PO SCH (07:40)
[2017-03-10] MEDS: MetroNIDAZOLE 500 MG/100 ML 500 MG/100 ML BAG IVPB SCH (07:40)
--- NOTE | 2017-03-10 08:47 | Discharge Summary ---
Date of Encounter: 03/10/17 Time of Encounter: 08:46 - Discharge Diagnosis (1) UTI (urinary tract infection) Priority: Primary Status: Acute Qualifiers: Urinary tract infection type: site unspecified Hematuria presence: without hematuria Qualified Code(s): N39.0 - Urinary tract infection, site not specified (2) Abdominal pain Priority: Primary Status: Chronic Qualifiers: Abdominal location: left upper quadrant Qualified Code(s): R10.12 - Left upper quadrant pain (3) COPD (chronic obstructive pulmonary disease) Priority: Secondary Status: Chronic Qualifiers: COPD type: unspecified COPD Qualified Code(s): J44.9 - Chronic obstructive pulmonary disease, unspecified (4) ESRD (end stage renal disease) on dialysis Priority: Secondary Status: Chronic (5) Hypotension Priority: Secondary Status: Resolved Qualifiers: Hypotension type: unspecified hypotension type Qualified Code(s): I95.9 - Hypotension, unspecified (6) Ileostomy in place Priority: Secondary Status: Chronic (7) Leg pain Priority: Secondary Status: Chronic Qualifiers: Laterality: bilateral Qualified Code(s): M79.604 - Pain in right leg; M79.605 - Pain in left leg (8) Tobacco abuse Priority: Secondary Status: Chronic (9) Electrolyte abnormality Priority: Secondary Status: Resolved (10) DVT prophylaxis Priority: Secondary Status: Acute - Discharge Medications Prescriptions: MetroNIDAZOLE [Flagyl] 500 mg PO Q8HR #15 tablet Ciprofloxacin [Cipro] 500 mg PO DAILY #4 Lactobacillus [Culturelle] 1 each PO BID #60 cap.sprink Home Medications: Amitriptyline [Elavil] 50 mg PO HS 09/19/15 [History] Cholecalciferol (Vitamin D3) [Vitamin D3] 5,000 unit PO DAILY #0 09/19/15 [ History] Ranitidine HCl [Zantac] 150 mg PO HS 09/19/15 [History] Ondansetron HCl 4 mg PO Q8H PRN 11/08/16 [History] Calcium Acetate [Phos-LO] 667 mg PO TIDWM 02/21/17 [History] Cyanocobalamin (B-12) [Vitamin B12] 1,000 mcg IM QMONTH 02/21/17 [History] Ipratropium/Albuterol Neb [Duoneb] 3 ml IH [id number] PRN 02/21/17 [History] Levothyroxine Sodium [Synthroid] 350 mcg PO 0630 02/21/17 [History] Mometasone/Formoterol [Dulera 100 Mcg/5 Mcg Inhaler] 2 puff IH BID 02/21/17 [ History] Ciprofloxacin [Cipro] 500 mg PO DAILY #4 03/10/17 [Rx] Lactobacillus [Culturelle] 1 each PO BID #60 cap.sprink 03/10/17 [Rx] MetroNIDAZOLE [Flagyl] 500 mg PO Q8HR #15 tablet 03/10/17 [Rx] Allergies/Adverse Reactions: Allergies codeine Adverse Reaction (Severe, Verified 03/06/17 15:22) Vomiting naproxen [From Naprosyn] Adverse Reaction (Severe, Verified 03/06/17 15:22) Vomiting Procedures/tests Complete & Pending: Procedures Performed prior 72 hours Category Date Time Status CT abd pelvis wo no iv no oral [CT] Stat Cat Scan 03/08/17 02:50 Completed Date of admission: 03/06/17 14:47 Primary care physician: Na Johansen CNP Consults: 03/06/17 16:34 Consult to Nutrition [CONS] Routine Comment: Consulting Provider: NUTRITION Reason for Dietary Consult: PO Supplementation Consult to Pastoral Services [CONS] Routine Comment: Consult to Creel Cleaner [CONS] Routine Reason for SW Consult: advance directives and possible services needed at home. lives with elderly brother 03/06/17 19:46 Consult to Nephrology [CONS] Routine Consulting Provider: Kidney Katelyn/MAYO/JAYESH/COREY Reason for Consult: Patient is HD patient, currently goes to [facility] Friday/ Friday per patient. Call Completed: No 03/06/17 19:53 Consult to Physical Therapy [CONS] Routine Comment: Evaluate, develop and implement POC Reason for Consult: weakness 03/07/17 07:06 Consult to Occupational Therapy [CONS] Routine Comment: Evaluate, develop and implement POC Reason for Consult: eval for poss ecf placement 03/07/17 08:30 Consult to Dialysis [CONS] ONCE Discharging clinician: Tracie Shipley Anticipated date of discharge: 03/10/17 - Patient Status Disposition: Home, Self-Care Condition: Good Functional capacity at discharge: independent ambulation Overall status at discharge: patient is back to baseline - Discharge Instructions Follow Up With: Na Johansen CNP [Primary Care Provider] - 03/13/17 1:00 pm Additional Instructions: Please follow up with your primary care physician within five days after your discharge from the hospital. Please ask your PCP about a referral to see Distribution Operation Supervisor in regards to your chronic diarrhea. Please resume oral antibiotics and Lactobacillus (probiotic) as prescribed. 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 Due to your low blood pressure, your home dose of Amlodipine was placed on hold. Continue to hold this medication and closely monitor your blood pressure. Take this medication if you are noted to have SBP>140. Resume all other home medications as prescribed by your primary care physician. - Diet and Activity Activity: resume usual activities as tolerated Diet: low salt diet Hospital course: Ms. Parra is a 71 year old female with PMH of COPD, GERD, HTN, ESRD on HD, hypothyroidism, s/p colostomy and urostomy who was admitted for management of abdominal pain. She was found to be hypotensive upon arrival, requiring IV fluids. She was started on IV abx for colitis and UTI. She responded appropriately to abx support. Her pO intake has been well with her completing all of her meals. Her BP improved and her home antihypertensives were placed on hold. She is tolerating dialysis well. She was evaluated by physical therapy and patient was reported to be independent with no needs. Patient is hemodynamically stable with improvement of her abd pain. She will receive HD today and discharge after HD if she is clinically stable. 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 Patient demonstrates understanding of her diagnosis and agree with the discharge care and plan. - Time Spent with Patient Total time spent providing and/or coordinating discharge services: Greater than 30 minutes - Constitutional Vitals: Temp Pulse Resp BP Pulse Ox 98.1 F 68 16 114/56 97 03/10/17 07:32 03/10/17 07:32 03/10/17 07:32 03/10/17 07:32 03/10/17 07:32 General appearance: Present: A&O X 3, no acute distress, underweight, answers questions appropriately - Head Head exam: Present: atraumatic, normocephalic - Eye Eye exam: Present: normal appearance, conjuntiva pink, sclera anicteric - Respiratory Respiratory exam: Present: CTAB. Absent: accessory muscle use, rales, rhonchi, wheezes - Cardiovascular Cardiovascular exam: Present: RRR, +S1, +S2. Absent: diastolic murmur, gallop, rubs, systolic murmur - GI/Abdominal GI/Abdominal exam: Present: normal bowel sounds, soft. Absent: distended, tenderness Additional comments: colostomy and urostomy intact - Extremities Exam Extremities exam: Present: warm, radial pulses palpable and symetrical. Absent : calf tenderness, cyanotic, pedal edema - Neurological Exam Neurological exam: Present: alert, oriented X3 - Psychiatric Psychiatric exam: Present: normal affect, normal mood - VTE Documentation of Mechanical Device: Intermittent pneumatic compression device
[2017-03-10] MEDS ORDERED: 0.9 % Sodium Chloride 250 ML IVC PRN (09:30)
[2017-03-10] MEDS ORDERED: 0.9 % Sodium Chloride 1,000 ML PRIME SCH (09:30)
[2017-03-10] MEDS: Budesonide/Formoterol 160/4.5 MDI IH SCH (10:15)
--- NOTE | 2017-03-10 10:23 | Nephrology Progress Note ---
Date of Encounter: 03/10/17 Time of Encounter: 10:21 - Assessment and Plan (1) ESRD (end stage renal disease) on dialysis Current Visit: Yes Status: Chronic HD today Avoid nephrotoxins if possible (2) Generalized weakness Current Visit: Yes Status: Acute Recommend GI appointment. Referral to GI must come from PCP; will f/u with patient in outpatient HD setting to confirm she gets a GI appointment (3) Hyperphosphatemia Current Visit: No Status: Acute Patient was on Phoslo; pills passing through gut and into colostomy. Just switched her to a liquird binder last week; staff appraiser in dialysis ordering med. Subjective Principal diagnosis: generalized weakness, ESRD on dialysis Interval history: Patient seen and examined. Getting ready to be transported to dialysis. States being discharged today Objective - Vital Signs Vital signs: Vital Signs Temp Pulse Resp BP Pulse Ox 03/10/17 07:32 98.1 F 68 16 114/56 97 03/10/17 05:12 98 F 70 18 102/52 96 03/10/17 00:32 98.2 F 67 16 108/52 95 03/09/17 21:09 98.1 F 74 17 104/47 92 03/09/17 20:33 12 95 03/09/17 15:49 98.0 F 56 17 104/50 97 03/09/17 11:31 97.9 F 60 18 108/58 97 03/09/17 10:40 17 95 Intake and Output 03/09/17 03/10/17 03/10/17 23:59 07:59 15:59 Intake Total 660 / 660 100 / 100 360 / 360 Output Total 750 / 750 450 / 450 700 / 700 Balance -90 / -90 -350 / -350 -340 / -340 Intake: IV Fluids 300 / 300 100 / 100 Cipro Premix 400 MG/200 200 / 200 ML 400 mg In 200 ml @ 200 mls/hr IVPB Q24H [facility]IANO Rx# :[id number] Flagyl Premix 500 MG/100 100 / 100 100 / 100 ML 500 mg In 100 ml @ 100 mls/hr IVPB Q8HR MARIANO Rx# :[id number] Oral 360 / 360 0 / 0 360 / 360 Output: Urine 0 / 0 0 / 0 0 / 0 Stool 650 / 650 450 / 450 500 / 500 Urostomy 100 / 100 200 / 200 Other: Meal Dinner Breakfast Percent of Meal Consumed 100% 100% Stool Consistency liquid soft Stool Color Brown Green Weight 53.5 kg Patient Weight 03/10/17 23:59 Weight 53.5 kg - General Appearance General appearance: Present: chronically ill, frail EENT: Present: ATNC, mucous membranes moist, hearing intact, vision intact Neck: Present: supple Respiratory: Present: clear Cardiology: Present: no edema, normal S1, normal S2 Gastrointestinal: Present: no tenderness, no guarding Integumentary: Present: warm and dry Neurologic: Present: alert and oriented x3 Psychiatric: Present: mood/affect appropriate, cooperative - Lab 03/10/17 04:03 03/10/17 04:03 Most recent lab results Calcium 7.3 mg/dL (8.6-10.8) L 03/10/17 04:03 Phosphorus 8.8 mg/dL (2.3-4.7) H 03/10/17 04:03 Magnesium 1.9 mg/dL (1.6-2.6) 03/10/17 04:03 - VTE Documentation of Mechanical Device: Intermittent pneumatic compression device Consult Discharge Plan - Plan Instructions: Urinary Tract Infection in Women (DC), Chronic Kidney Disease (DC ), Chronic Obstructive Pulmonary Disease (DC) Additional Instructions: Please follow up with your primary care physician within five days after your discharge from the hospital. Please ask your PCP about a referral to see Hair Or Beauty Salon Assistant in regards to your chronic diarrhea. Please resume oral antibiotics and Lactobacillus (probiotic) as prescribed. Please continue hemodialysis as per your change control manager. Due to your low blood pressure, your home dose of Amlodipine was placed on hold. Continue to hold this medication and closely monitor your blood pressure. Take this medication if you are noted to have SBP>140. Resume all other home medications as prescribed by your primary care physician. Referrals: Na Johansen CNP [Primary Care Provider] - 03/13/17 1:00 pm Prescriptions: MetroNIDAZOLE [Flagyl] 500 mg PO Q8HR #15 tablet Ciprofloxacin [Cipro] 500 mg PO DAILY #4 Lactobacillus [Culturelle] 1 each PO BID #60 cap.[email or web address]
[2017-03-10] MEDS ORDERED: 0.9 % Sodium Chloride 2,000 ML ONE (14:26)
[2017-03-10 14:50] VITALS: BP 118/60
[2017-03-10] MEDS ORDERED: metroNIDAZOLE 500 MG TABLET PO SCH (16:00)
[2017-03-10] MEDS ORDERED: Famotidine 20 MG TABLET PO SCH ×2 (21:00)
== END 2017-03-10 14:34 | disposition home or self-care (01) ==
LOC: EMEROO 12:28 → 2ANU 12:28
PROVIDERS: ADMIT Hospitalist; ATTEND Internal Medicine

== ENCOUNTER 2017-06-30 07:07 | Inpatient (IN) ==
[2017-06-30] MEDS ORDERED: Ipratropium/Albuterol Neb 3 ML IH ONE (07:45)
[2017-06-30] MEDS ORDERED: Nitroglycerin 1 INCH/GM PACKET TP ONE (08:00)
[2017-06-30] MEDS ORDERED: Ondansetron 4 MG/2 ML VIAL IVP ONE (08:00)
[2017-06-30] MEDS ORDERED: Furosemide 40 MG/4 ML VIAL IVP ONE (08:00)
[2017-06-30] MEDS ORDERED: Nitroglycerin 0.4 MG TAB.SUBL SL ONE (08:04)
--- NOTE | 2017-06-30 08:18 | Emergency Department Note ---
Disposition Clinical Impression: Acute respiratory distress, ESRD (end stage renal disease), Atypical pneumonia , Atrial fibrillation with rapid ventricular response Hypotension Qualifiers: Hypotension type: unspecified hypotension type Qualified Code(s): I95.9 - Hypotension, unspecified Disposition: Admitted As Inpatient Condition: Fair SOB HPI - General Chief Complaint: ED Shortness of Breath/Dyspnea Stated Complaint: cough, nausea, vomting Time Seen by Provider: 06/30/17 07:19 Source: patient, EMS Limitations: no limitations Nursing Notes Reviewed: Yes Vital Signs Reviewed: Yes - History of Present Illness Patient presents per EMS with complaint of shortness of breath which started at home 3 days ago and is constant and worse with exertion she does have associated chest pain which is worse she takes a breath and it does radiate through to her back. No complaint of leg swelling. The patient does have a history of end-stage renal disease and missed her dialysis on Friday, 3 days ago. she does have a cough productive of yellow sputum but no hemoptysis. Some sneezing. No complaint of fever, blurred vision or rhinorrhea. Does make some urine but does not currently have blood in the urine or stool. 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 No pain or swelling in the lower extremities. No numbness to the lower extremities, skin rash or bruising of the skin. Social history: Smoker, no alcohol or drugs - Related Data Home Medications Medication Instructions Recorded Confirmed Amitriptyline [Elavil] 50 mg PO HS 09/19/15 06/30/17 Cholecalciferol (Vitamin D3) 5,000 unit PO DAILY #0 09/19/15 06/30/17 [Vitamin D3] Ranitidine HCl [Zantac] 150 mg PO HS 09/19/15 06/30/17 Calcium Acetate [Phos-LO] 667 mg PO TIDWM 02/21/17 06/30/17 Cyanocobalamin (B-12) [Vitamin B12] 1,000 mcg IM QMONTH 02/21/17 06/30/17 Levothyroxine Sodium [Synthroid] 300 mcg PO DAILY 02/21/17 06/30/17 Mometasone/Formoterol [Dulera 100 2 puff IH BID 02/21/17 06/30/17 Mcg/5 Mcg Inhaler] Albuterol Neb [Proventil Neb] 2.5 mg IH Q6H PRN 06/30/17 06/30/17 Lidocaine/Prilocaine CREAM [Emla] 1 appl TP AD PRN 06/30/17 06/30/17 Renal Vitamin [Renal Caps Softgel] 1 mg PO DAILY 06/30/17 06/30/17 Previous Rx's Medication Instructions Recorded Lactobacillus [Culturelle] 1 each PO BID #60 cap.[email or web address] 03/10/17 Allergies Allergy/AdvReac Type Severity Reaction Status Date / Time codeine AdvReac Severe Vomiting Verified 03/06/17 15:22 naproxen [From Naprosyn] AdvReac Severe Vomiting Verified 03/06/17 15:22 Review of Systems: she does have a cough productive of yellow sputum but no hemoptysis. Some sneezing. No complaint of fever, blurred vision or rhinorrhea. Does make some urine but does not currently have blood in the urine or stool. 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 No pain or swelling in the lower extremities. No numbness to the lower extremities, skin rash or bruising of the skin. Past Medical History - Past Medical History Medical history: Reports: asthma, COPD, GERD, hypertension, renal disease, thyroid disease Surgical history: Reports: appendectomy, cholecystectomy, colostomy, hysterectomy, other Psychiatric history: Reports: no psych history - Social History Smoking Status: Current every day smoker Smokeless Tobacco Status: No Alcohol use: Reports: none Drug use: Reports: none Physical Exam CONSTITUTIONAL: Ill-appearing; thin; A&O X 3, intermittently vomiting EYES: PERRL, no scleral icterus NOSE: The nose is normal in appearance without rhinorrhea NECK: No JVD or distended neck veins RESP: Normal chest excursion with respiration; breath sounds with bilateral coarse crackles and wheezing, symmetric lung sounds CARD: Regular rhythm, without murmurs, rub or gallop chest: Pain with palpation anterior chest wall are normal appearance ABD: Non-distended; non-tender, soft, without rigidity, rebound or guarding,no pulsatile mass CHEST: No pain with palpation SKIN: Normal for age and race; warm and dry without diaphoresis ; no apparent lesions EXTREMITIES: Pulses are 2 plus and equalbilateral lower extremities and 2+ right radial, the left upper extremity is warm and pink but I am not able to palpate a radial pulse. Lower extremities do not demonstrate any peripheral edema or calf muscle pain - General Limitations: no limitations General appearance: alert Course Vital Signs Temperature 98.1 F 06/30/17 07:16 Pulse Rate 132 06/30/17 07:16 Respiratory Rate 20 06/30/17 07:16 Blood Pressure 109/69 06/30/17 07:16 O2 Sat by Pulse Oximetry 97 06/30/17 07:16 Temperature 98.1 F 06/30/17 07:16 Pulse Rate 124 06/30/17 11:37 Respiratory Rate 20 06/30/17 11:37 Blood Pressure 101/70 06/30/17 11:37 O2 Sat by Pulse Oximetry 96 06/30/17 11:37 Oxygen Delivery Oxygen Delivery Room Air Shortness of Breath/Dyspnea - MDM Narrative Medical decision making narrative: Patient does have a concerning story and especially with her missed dialysis and a chest x-ray showing pulmonary edema patient will be admitted, nephrology is paged, labs are pending. I did order a EKG the patient is quite tachycardic. Pulmonary embolism is one potential possibility and a CTA of the chest will be done and if we can coordinate that with nephrology the patient will be dialyzed after that they can dialyze the extra fluid. With her tachycardia and pleuritic chest pain this is a concern for pulmonary embolism and wears this remains a possibility, the more likely etiology is pulmonary edema from fluid overload. I do not see a discrete lobar bacterial infiltrate. The patient will receive sublingual nitroglycerin, nitroglycerin paste, Lasix , Zofran and 4 mg morphine and be watched closely. 0819 I did discuss back and check on the patient. Medications are getting ready to be administered. Current systolic blood pressure 111. Is not currently vomiting. Test results are pending. I did review the EKG showing atrial fibrillation with rapid ventricular response with a rate of 139 bpm. There is some T-wave inversion laterally which is concerning for possible ischemia. The patient is tachycardic and I suspect this is related to underlying problem as opposed to being related to a problem related to arrhythmia. Nephrology is paged and we will call them back. 0843 I did go back into the patient. Her heart rate is now into the 140s and 50s. Will receive a small bolus of intravenous Cardizem and a Cardizem drip. The infrastructure architect Dr. Buenrostro was paged and I did speak with him at 850 and we discussed the need for emergent dialysis this morning. I will hold off on the nitrates at this time and the patient will be admitted. Hospitalist is paged. I have also asked for a call to cardiology for further ongoing care of the patient's atrial fibrillation with rapid ventricular response. I have reviewed the patient's labs. Bicarbonate is significantly low likely from generalized hypoperfusion and lactic acidosis 0922 I did see the patient again. She is resting comfortably in the bed. Heart rate has improved and is now 114 bpm. Blood pressure is a little bit lower at 96 systolic. The patient will go for her CTA in the next few minutes. I did speak with the natural science curator Dr. Samaniego and he is aware of the atrial fibrillation with rapid ventricular response and agrees that her symptoms should improve once she is dialyzed. The patient blood pressure was just checked about 30 seconds ago and is 101 systolic. 1032 I did speak with the hospitalist who accepts the patient for admission. Feels the patient can be admitted to 2 [address]. and not to the intensive care unit. We will ensure the patient does not have a pulmonary embolism before they go up to the floor. [address] scan did return and did not show pulmonary embolism or aortic dissection however is concerning for atypical pneumonia based on the radiology interpretation so for that reason I did order blood cultures, lactate level, and intravenous vancomycin and Zosyn. The patient will be dialyzed this afternoon, we have just heard. The patient's continuing to be monitored and watched closely here in the emergency department. Heart rate has improved. 1208 - Medical Records Medical records reviewed: Yes I reviewed the patient's medical records. - Lab Data Lab results reviewed: Yes I reviewed the patient's lab results. Result diagrams: 06/30/17 08:20 06/30/17 08:20 Lab Results 06/30/17 06/30/17 06/30/17 Range/Units 08:20 08:20 08:20 WBC 6.0 (4.3-11.1) K/mcL RBC 3.27 L (3.82-4.97) M/mcL Hgb 10.0 L (11.5-15.4) g/dL Hct 31.2 L (35.3-44.9) % MCV 95.4 (83.0-100.0) fL MCH 30.6 (28.0-33.3) pg MCHC 32.1 (31.6-35.5) g/dL RDW 15.4 H (11.5-14.5) % Plt Count 101 L (140-400) K/mcL MPV 11.6 (9.4-12.4) fL Immature Gran % 0.8 (0-4) % Seg Neutrophils % 85.7 % Lymphocytes % 9.4 % Monocytes % 3.2 % Eosinophils % 0.7 % Basophils % 0.2 % Neutrophils # 5.1 (1.6-8.9) K/mcL Lymphocytes # 0.6 (0.6-4.6) K/mcL Monocytes # 0.2 (0.0-1.3) K/mcL Eosinophils # 0.0 (0.0-0.6) K/mcL Basophils # 0.0 (0.0-0.2) K/mcL Sodium 139 (136-145) mEq/L Potassium 4.1 (3.5-4.5) mEq/L Chloride 106 (98-109) mEq/L Carbon Dioxide 9 L* (19-29) mEq/L BUN 59 H (7-20) mg/dL Creatinine 12.01 H (0.57-1.11) mg/dL Est GFR ( Amer) 4 L (> 60) Est GFR (Non-Af Amer) 3 L (> 60) BUN/Creatinine Ratio 5 L (6-26) Glucose 73 (70-99) mg/dL Calculated Osmolality 303 H (280-300) Calcium 7.8 L (8.6-10.8) mg/dL Troponin I 0.04 H* (0-0.03) ng/mL B-Natriuretic Peptide (0-100) pg/mL 06/30/17 Range/Units 08:20 WBC (4.3-11.1) K/mcL RBC (3.82-4.97) M/mcL Hgb (11.5-15.4) g/dL Hct (35.3-44.9) % MCV (83.0-100.0) fL MCH (28.0-33.3) pg MCHC (31.6-35.5) g/dL RDW (11.5-14.5) % Plt Count (140-400) K/mcL MPV (9.4-12.4) fL Immature Gran % (0-4) % Seg Neutrophils % % Lymphocytes % % Monocytes % % Eosinophils % % Basophils % % Neutrophils # (1.6-8.9) K/mcL Lymphocytes # (0.6-4.6) K/mcL Monocytes # (0.0-1.3) K/mcL Eosinophils # (0.0-0.6) K/mcL Basophils # (0.0-0.2) K/mcL Sodium (136-145) mEq/L Potassium (3.5-4.5) mEq/L Chloride (98-109) mEq/L Carbon Dioxide (19-29) mEq/L BUN (7-20) mg/dL Creatinine (0.57-1.11) mg/dL Est GFR ( Amer) (> 60) Est GFR (Non-Af Amer) (> 60) BUN/Creatinine Ratio (6-26) Glucose (70-99) mg/dL Calculated Osmolality (280-300) Calcium (8.6-10.8) mg/dL Troponin I (0-0.03) ng/mL B-Natriuretic Peptide 2581 H (0-100) pg/mL - Radiology Data Radiology results reviewed: Yes I reviewed the patient's radiology results. Critical Care Time Critical Care Time: Yes Attestation: 45 minutes of critical care time was that this very sick patient with atrial fibrillation with rapid ventricular response, hypotension, shortness of breath, pulmonary edema and end-stage renal disease
[2017-06-30] MEDS ORDERED: *HR* Morphine 2 MG/ML SYRINGE IVP ONE (08:20)
[2017-06-30 08:33] LABS: Basophils % 0.2 %; Eosinophils % 0.7 %; Hematocrit 31.2 % (35.3-44.9); Immature Granulocytes % 0.8 % (0-4); Lymphocytes # 0.6 K/mcL (0.6-4.6); Lymphocytes % 9.4 %; Mean Corpuscular HGB Conc 32.1 g/dL (31.6-35.5); Mean Corpuscular Hemoglobin 30.6 pg (28.0-33.3); Mean Corpuscular Volume 95.4 fL (83.0-100.0); Mean Platelet Volume 11.6 fL (9.4-12.4); Monocytes # 0.2 K/mcL (0.0-1.3); Monocytes % 3.2 %; Neutrophils # 5.1 K/mcL (1.6-8.9); Platelet Count 101 K/mcL (140-400); Red Blood Count 3.27 M/mcL (3.82-4.97); Red Cell Distribution Width 15.4 % (11.5-14.5); Segmented Neutrophils % 85.7 %
[2017-06-30 08:45] LABS: Calcium 7.8 mg/dL (8.6-10.8); Potassium 4.1 mEq/L (3.5-4.5)
[2017-06-30] MEDS ORDERED: Aminoglycoside Consult 1 EACH MC ONE (09:17)
--- NOTE | 2017-06-30 09:46 | Electrocardiograph Report ---
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
[2017-06-30] MEDS ORDERED: Vancomycin 750 MG in D5% in Water 250 ML IVPB ONE ×3 (12:05→20:00)
[2017-06-30] MEDS ORDERED: Piperacillin/Tazobactam 3.375 GM in D5% in Water (Mini-Bag+) 100 ML IVPB ONE (12:05)
[2017-06-30] MEDS ORDERED: Naloxone 0.4 MG/ML INJ IVP PRN (12:19)
[2017-06-30] MEDS ORDERED: Ondansetron ODT 4 MG TAB.RAPDIS SL PRN (12:19)
[2017-06-30] MEDS ORDERED: *HR* Heparin 5,000 UNIT/ML VIAL IVP ONE (12:25)
[2017-06-30] MEDS ORDERED: 0.9 % Sodium Chloride 250 ML IVC PRN (13:46)
--- NOTE | 2017-06-30 13:46 | Internal Med History&Physical ---
<Gen Frost - Last Filed: 06/30/17 13:41> Date of Encounter: 06/30/17 Time of Encounter: 10:30 Assessment and Plan (1) Chest pain Current visit: Yes Status: Acute Chest pain described as pressure and sharp and shooting radiating to her neck and across her chest. Symptoms associated include nausea, vomiting in a 71-year -old female with end-stage renal disease. JOHN score: 4 EKG: Irregularly irregular heart rate and rhythm Troponin I: 0.04 ( highest troponin she has had) DDX: ACS, pneumonia, muscle skeletal irritation, uremia Risk factors for ACS: Greater than [id number] history of smoking, end-stage renal disease, significant family history of coronary artery disease, new onset atrial fibrillation, female with age greater than 65. Echocardiogram from 11/09/2016 demonstrates a left ventricular ejection fraction of 60-65%, normal left ventricular size and systolic function, evidence of mild diastolic dysfunction of the left ventricle, normal right ventricular size and function, no significant valvular dysfunction, estimated RVSP of 21, no pulmonary hypertension. Plan: - Admit to general medical floor - Continuous cardiac monitoring - Troponins 3 - Daily EKG - Morphine, oxygen, nitroglycerin, aspirin, statin, will hold beta lex as patient has a systolic blood pressure of 100. - Cardiology consult Qualifiers: Qualified Code(s): R07.9 - Chest pain, unspecified (2) Atrial fibrillation with rapid ventricular response Current visit: Yes Status: Acute 71-year-old female presenting with new onset atrial fibrillation with rapid ventricular rate. - Previous EKGs reviewed without findings of atrial fibrillation Cause of atrial fibrillation unknown but cannot rule out ACS as the patient has chest pain at this time. Other potential causes include too high a dose of levothyroxine as the patient has a history of hypothyroidism, volume overload, heart failure, uremia. [id number]: 3 Plan: - Continue Cardizem drip - Start heparin drip for anticoagulation with plans to transition to oral warfarin with INR between 2-3 - TTE for new onset atrial fibrillation - TSH - Cardiology input on treatment for atrial fibrillation rate control. (3) Atypical pneumonia Current visit: Yes Status: Acute Patient presents with chest pain, SOB, cough - Normal WBC, no elevation in neutrophil count, oxygen saturations appropriate room air CTA: IMPRESSION: No evidence of pulmonary embolism. Multiple small ground-glass nodules throughout both lungs with peribronchial cuffing in both lung bases and trace left pleural effusion suggesting atypical pneumonia. Recommend clinical correlation and follow-up to resolution. The ground-glass nodules measure 4 to 6 mm in size and are scattered throughout all lobes. Plan: - Continue Levaquin every 48 hours for renal dosing. (4) Uremia Current visit: Yes Status: Acute 71-year-old female, hemodialysis dependent with hemodialysis Friday, missed her last dialysis appointment on Friday secondary to chest pain with nausea and vomiting. Presents with nausea, vomiting, BUN/creatinine of 59 , creatinine 12.01 and a bicarbonate level of 9 Plan: - Consult placed to nephrology, spoke with Dr. Buenrostro who plans to do hemodialysis today. - Consult placed to nephrology - Continue cardiac monitoring - Correctable electrolytes as necessary. (5) Metabolic acidosis Current visit: Yes Status: Chronic 71-year-old patient presenting with uremia and metabolic acidosis with an anion gap of 24. Associated symptoms of nausea and vomiting which may also be contributing to bicarbonate loss. - Of note the patient was recently evaluated by gastroenterology for dumping syndrome which can contribute to her acidosis. - Bicarbonate deficit calculated at 6.9 Amps Plan: - 3 Amps sodium bicarbonate - Patient to undergo hemodialysis - Recheck chemistry panel one hour after hemodialysis. (6) Anemia in chronic kidney disease Current visit: Yes Status: Chronic Hemoglobin of 10.0, history of anemia secondary to end-stage renal disease. Review of patient's records demonstrate hemoglobin around average. Plan: - Continue to monitor. - Replace with PRBCs if hemoglobin falls below 8.0 Qualifiers: Qualified Code(s): N18.6 - End stage renal disease; D63.1 - Anemia in chronic kidney disease; Z99.2 - Dependence on renal dialysis (7) ESRD (end stage renal disease) on dialysis Current visit: No Status: Chronic Continue with scheduled dialysis, nephrology consulted for HD. (8) Tobacco abuse Current visit: No Status: Chronic Current every day smoker, patient admits to smoking at least one pack per day since the age of 16. - Associated with COPD Plan: - Nicotine patch (9) COPD (chronic obstructive pulmonary disease) Current visit: No Status: Chronic Known hx of COPD, No PFT's on file. Plan: - Albuterol Neb Q4hrs scheduled - Duoneb Q6hrs scheduled - oxygen saturation between 88-92% Qualifiers: COPD type: unspecified COPD Qualified Code(s): J44.9 - Chronic obstructive pulmonary disease, unspecified (10) Colostomy care Current visit: Yes Status: Acute Continue inpatient care of colostomy (11) Attention to urostomy Current visit: Yes Status: Acute Continue inpatient care of urostomy. (12) DVT prophylaxis Current visit: No Status: Acute Patient currently on heparin drip. Internal Medicine - H&P: HPI Chief complaint: chest pain Admitted From: Emergency Dept Plans for Post Hospital Care: Home History of present illness: Ms. Parra is a 71 year old female resented to the emergency department today with chest pain. She states that she started having chest pain radiates across to her chest starting from the right to the left and up through her neck all starting on Friday. Her chest pain was associated with nausea and vomiting causing her to feel too sick to attend dialysis. Over the weekend her chest pain progressively worsened and her nausea and vomiting continued to the point today she felt so sick and her chest pain which she describes as sharp and crushing caused her to come in to the emergency department. She rates her pain at a scale of 9 out of 10. She has not taken any medications to improve her symptoms and denies any exacerbating symptoms. She does however admit to feeling short of breath while ambulating and describes a sharp shooting pain radiating across her left chest to her back when she takes deep breaths or to light palpation of her anterior chest wall. She denies her having chest pain or a feeling like this in the past. She denies any history of cardiac disease, stents, CA, heart failure. She does not notice any improvement with positional change. She is concerned about this chest pain as her father and all her brothers had fatal heart attacks around the age of 40. She denies any recent changes to medications or change in diet. She says that she quit smoking 3 days ago. Past Med Surg Social Fam HX - Past Medical History Medical history: asthma, COPD, GERD, hypertension, renal disease, thyroid disease Psychiatric history: no psych history - Past Surgical History Surgical History: appendectomy, cholecystectomy, colostomy, hysterectomy, other - Social History Smoking Status: Current every day smoker Smokeless Tobacco Status: No Alcohol use: none Drug use: none - Family History Mother Adopted: No Living Status: Hx Family Cardiac Disorders: Yes Hx Family Respiratory Disorders: No Hx Family Cancer: No Hx Family GI Disorders: No Hx Family Endocrine Disorder: No Hx Family Neuromuscular Disorders: No Hx Family Neurologic Disorders: No Hx Family HEENT Disorders: No Hx Family Autoimmune Disorders: No Father Adopted: No Living Status: Hx Family Cardiac Disorders: Yes Hx Family Respiratory Disorders: No Hx Family Cancer: No Hx Family GI Disorders: No Hx Family Endocrine Disorder: No Hx Family Neuromuscular Disorders: No Hx Family Neurologic Disorders: No Hx Family HEENT Disorders: No Hx Family Autoimmune Disorders: No Brother Hx Family Cardiac Disorders: Yes ([place]) Internal Medicine - H&P: Meds Amitriptyline [Elavil] 50 mg PO HS 09/19/15 [History] Cholecalciferol (Vitamin D3) [Vitamin D3] 5,000 unit PO DAILY #0 09/19/15 [ History] Ranitidine HCl [Zantac] 150 mg PO HS 09/19/15 [History] Calcium Acetate [Phos-LO] 667 mg PO TIDWM 02/21/17 [History] Cyanocobalamin (B-12) [Vitamin B12] 1,000 mcg IM QMONTH 02/21/17 [History] Levothyroxine Sodium [Synthroid] 300 mcg PO DAILY 02/21/17 [History] Mometasone/Formoterol [Dulera 100 Mcg/5 Mcg Inhaler] 2 puff IH BID 02/21/17 [ History] Lactobacillus [Culturelle] 1 each PO BID #60 cap.sprink 03/10/17 [Rx] Albuterol Neb [Proventil Neb] 2.5 mg IH Q6H PRN 06/30/17 [History] Lidocaine/Prilocaine CREAM [Emla] 1 appl TP AD PRN 06/30/17 [History] Renal Vitamin [Renal Caps Softgel] 1 mg PO DAILY 06/30/17 [History] 3 Allergy/AdvReac Type Severity Reaction Status Date / Time codeine AdvReac Severe Vomiting Verified 03/06/17 15:22 naproxen [From Naprosyn] AdvReac Severe Vomiting Verified 03/06/17 15:22 All Systems PM: A 10-system review of systems was performed and is negative for pertinent findings except as documented above in the HPI. - Constitutional Constitutional: no chills, no fever(s), no night sweats - EENT Eyes: no change in vision, no discharge, no pain, no photophobia Ears: no ear discharge, no ear pain, no tinnitus Nose, mouth and throat: no dysphagia, no nasal discharge, no neck pain, no sore throat - Cardiovascular Cardiovascular ROS IM: chest pain, dyspnea, no diaphoresis, no edema, no lightheadedness, no palpitations, no syncope - Respiratory Respiratory: cough, dyspnea, no wheezing, no excessive phlegm production - Gastrointestinal Gastrointestinal: nausea, vomiting, no abdominal pain, no diarrhea, no hematemesis, no hematochezia, no melena - Genitourinary Genitourinary: no change in urinary stream, no dysuria, no flank pain, no hematuria - Musculoskeletal Musculoskeletal ROS IM: no numbness, no tingling - Integumentary Integumentary IM: no rash, no unusual bruising - Neurological Neurological ROS: no confusion, no convulsions, no focal weakness, no numbness, no tingling, no tremor(s) - Hematologic/Lymphatic Hematologic/Lymphatic: no easy bruising - Constitutional Vitals: Temp Pulse Resp BP Pulse Ox 98.1 F 124 18 99/68 96 06/30/17 07:16 06/30/17 11:37 06/30/17 12:28 06/30/17 12:28 06/30/17 11:37 Exam: General: Patient alert, awake, oriented 3, interactive, appears to be in mild discomfort HEENT: Normocephalic, atraumatic, pupils equal reactive to light, nasal cavity patent and open septum median position, oral mucosa moist, uvula midline, neck supple trachea midline no palpable lymphadenopathy, no thyromegaly. Chest: Symmetric bilateral correlating with respiratory effort, effort nonlabored, tenderness to light palpation on the anterior chest wall Cardiac: Irregularly irregular heart rate and rhythm, no bruits appreciated bilateral carotids, Radial pulses 2+ bilateral, posterior tibial and dorsal pedal pulses 2+ bilateral. Respiratory: Diffuse ronchi on auscultation. Abdomen: Soft, nontender, positive bowel sounds, no palpable masses appreciated on examination, urostomy and right lower abdominal wall with minimal urine output, colostomy without any drainage in colostomy bag. Extremities: Symmetric bilateral, no erythema or edema, patient moving all 4 extremities spontaneously. Neurologic: No focal deficits appreciated on examination. Face symmetric, muscle strength symmetric bilateral upper and lower extremities. Internal Med - H&P Results - Labs CBC & Chem 7: 06/30/17 08:20 06/30/17 08:20 <Tracie Shipley - Last Filed: 06/30/17 15:33> Date of Encounter: 06/30/17 Time of Encounter: 14:30 Internal Medicine - H&P: HPI History of present illness: Ms. Parra is a 71 year old female All Systems PM: A 10-system review of systems was performed and is negative for pertinent findings except as documented above in the HPI. - Constitutional Vitals: Temp Pulse Resp BP Pulse Ox 99.4 F 88 16 117/59 96 06/30/17 14:25 06/30/17 14:25 06/30/17 14:25 06/30/17 14:25 06/30/17 14:25 Internal Med - H&P Results - Labs CBC & Chem 7: 06/30/17 14:09 06/30/17 08:20 Labs: Short CBC 06/30/17 Range/Units 14:09 WBC 7.8 (4.3-11.1) K/mcL Hgb 9.8 L (11.5-15.4) g/dL Hct 29.9 L (35.3-44.9) % Plt Count 118 L (140-400) K/mcL Cardiac Enzymes 06/30/17 Range/Units 14:09 Troponin I 0.02 (0-0.03) ng/mL - Attending Attestation I examined this patient and my medical decision-making was reviewed with the Resident Physician. I agree with the documented findings, disposition and treatment plan as described except to the extent set forth below. I independently had [id number] contact with the patient Patient independently seen and examined. Admitted for chest pain concerning for NSTEMI, new onset Afib, uremia secondary to missed HD, and atypical PNA. Serial TNI, ASA, Statin, BB, Cardizem gtt. Cardiology consult. tele monitoring nephrology consulted for hemodialysis noted to have severe metabolic acidosis with bicarb deficit of 6.9, will supplement 3amp of bicarb IV abx for PNA, can de-escalate therapy as patient clinically improves. f/u blood cultures
[2017-06-30 14:22] LABS: INR 1.3; Prothrombin Time 14.4 Seconds (9.4-12.1)
[2017-06-30 14:23] LABS: Hematocrit 29.9 % (35.3-44.9); Hemoglobin 9.8 g/dL (11.5-15.4); Mean Corpuscular HGB Conc 32.8 g/dL (31.6-35.5); Mean Corpuscular Volume 94.6 fL (83.0-100.0); Mean Platelet Volume 11.7 fL (9.4-12.4); Platelet Count 118 K/mcL (140-400); Red Blood Count 3.16 M/mcL (3.82-4.97); Red Cell Distribution Width 15.5 % (11.5-14.5)
[2017-06-30 14:25] LABS: Activated Partial Thrombo Time 31.4 Seconds (26.0-36.0)
[2017-06-30 14:28] LABS: Magnesium 1.2 mg/dL (1.6-2.6); Phosphorous 14.9 mg/dL (2.3-4.7)
[2017-06-30] MEDS ORDERED: Magnesium Sulfate 2 GM in D5% in Water 100 ML IVPB ONE (14:40)
[2017-06-30] MEDS ORDERED: Aspirin Enteric Coated 325 MG Tablet PO ONE (14:40)
--- NOTE | 2017-06-30 14:59 | Cardiology Consult Note ---
Addendum entered and electronically signed by Sirisha Adams CNP 06/30/17 16: 56: Correction to below. ECG with new incomplete right bundle branch block. Will repeat ECG in am after electrolytes replaced. Denies current chest pain. Most recent troponin negative. Echo pending. Original Note: Date of Encounter: 06/30/17 Time of Encounter: 14:00 Assessment and Plan (1) Nausea and vomiting Current Visit: No Status: Acute Per cardiology: -Admitted with nausea and vomiting for 3 days. -reports poor oral intake. -Mangement per primary service. Qualifiers: Vomiting type: unspecified Vomiting Intractability: non-intractable Qualified Code(s): R11.2 - Nausea with vomiting, unspecified (2) Atrial fibrillation with rapid ventricular response Current Visit: Yes Status: Acute Per cardiology: -New onset atrial fibrillation with RVR. -On cardizem drip at 5mg/hour. -CHads 2vasc score 2 (age, Gender). Recommend anticoagulation. CUrrently on heparin drip -Echo pending. -Previous echo with LVEF 60-65%. -CUrrently SR, HR 70s per telemetry. -Unable to take oral medications at this time due to vomiting. -Mg 1.2, may be contributing factor. -Will continue to monitor. -Will attempt to change medications to po if able in the morning. (3) Hypomagnesemia Current Visit: No Status: Acute Per cardiology -Mg 1.2 in the setting of vomiting. -Replaced per primary service. -Management per primary service. -Will continue to monitor. (4) Elevated troponin Current Visit: Yes Status: Acute Per cardiology: -Troponin 0.04, 0.02 in the setting of vomiting, electroplyte disturbances, and ESRD with missed dialysis. -Troponins flat anf adynamic. -Denies current chest pain. -ECG with no ischemic changes. -echo pending. -Admits to chest pain constant with vomiting. -DO not suspect NSTEMI, suspect demand ischemia related to above. No cardiac rehab warranted at this time. -Further recommendations pending echo. -Will continue to monitor. Discussion w patient/family: The assessment and plan as outlined above was discussed with the patient who expressed understanding and agreement. All questions were answered. Thank you for involving us in the care of your patient. Please call with any questions. Discussed and reviewed with . History of Present Illness Consult date: 06/30/17 Requesting physician: Gen Frost Consult reason: new atrial fibrillation, elevated troponin, chest pain Chief complaint: chest pain History of present illness: Ms. Parra is a 71 year old female with a relevant past medical history of HTN, hypothyroidism, reflex sympathetic dystrophy, GERD, COPD, multiple abdomen surgeries with colostomy and urostomy, ESRD on dialysis. Patient presented to [facility] with complaints of chest pain and vomiting since Friday. Patient states pain was constant. Patient denies chest pain prior to this episode. Denies excertional symptoms. Denies shortness of breath or fatigue prior to this episode. Patient denies current chest pain. Denies palpitations or fluttering. Past Med Surg Social Fam HX - Past Medical History Attestation: Yes The following information was validated with the patient. Source: patient, old records reviewed Medical history: asthma, COPD, GERD, hypertension, renal disease, thyroid disease Psychiatric history: no psych history - Past Surgical History Surgical History: appendectomy, cholecystectomy, colostomy, hysterectomy, other - Social History Smoking Status: Current every day smoker Smokeless Tobacco Status: No Alcohol use: none Drug use: none - Family History Mother Adopted: No Living Status: Hx Family Cardiac Disorders: Yes Hx Family Respiratory Disorders: No Hx Family Cancer: No Hx Family GI Disorders: No Hx Family Endocrine Disorder: No Hx Family Neuromuscular Disorders: No Hx Family Neurologic Disorders: No Hx Family HEENT Disorders: No Hx Family Autoimmune Disorders: No Father Adopted: No Living Status: Hx Family Cardiac Disorders: Yes Hx Family Respiratory Disorders: No Hx Family Cancer: No Hx Family GI Disorders: No Hx Family Endocrine Disorder: No Hx Family Neuromuscular Disorders: No Hx Family Neurologic Disorders: No Hx Family HEENT Disorders: No Hx Family Autoimmune Disorders: No Brother Hx Family Cardiac Disorders: Yes (DC) Medications and Allergies Amitriptyline [Elavil] 50 mg PO HS 09/19/15 [History] Cholecalciferol (Vitamin D3) [Vitamin D3] 5,000 unit PO DAILY #0 09/19/15 [ History] Ranitidine HCl [Zantac] 150 mg PO HS 09/19/15 [History] Calcium Acetate [Phos-LO] 667 mg PO TIDWM 02/21/17 [History] Cyanocobalamin (B-12) [Vitamin B12] 1,000 mcg IM QMONTH 02/21/17 [History] Levothyroxine Sodium [Synthroid] 300 mcg PO DAILY 02/21/17 [History] Mometasone/Formoterol [Dulera 100 Mcg/5 Mcg Inhaler] 2 puff IH BID 02/21/17 [ History] Lactobacillus [Culturelle] 1 each PO BID #60 cap.sprink 03/10/17 [Rx] Albuterol Neb [Proventil Neb] 2.5 mg IH Q6H PRN 06/30/17 [History] Lidocaine/Prilocaine CREAM [Emla] 1 appl TP AD PRN 06/30/17 [History] Renal Vitamin [Renal Caps Softgel] 1 mg PO DAILY 06/30/17 [History] 3 Allergy/AdvReac Type Severity Reaction Status Date / Time codeine AdvReac Severe Vomiting Verified 03/06/17 15:22 naproxen [From Naprosyn] AdvReac Severe Vomiting Verified 03/06/17 15:22 All Systems Review: A 10-system review of systems was performed and is negative for pertinent findings except as documented above in the HPI. - Cardiovascular Cardiovascular: as per HPI, chest pain at rest - Gastrointestinal Gastrointestinal: nausea, other (vomitng) Physical Examination Vital Signs, Last 4 Hours Temp Pulse Resp BP Pulse Ox 06/30/17 14:25 99.4 F 88 16 117/59 96 06/30/17 12:28 18 99/68 General: Conversant, No Apparent Distress HEENT: Atraumatic, Normocephaly, Mucus Membranes Moist Neck: No JVD, Normal carotid pulses Cardiac: Reg Rate and Rhythm, Normal S1 and S2, No Murmur Lungs: Normal Breath Sounds, No Wheeze, Rales, Rhonchi Neuro: Alert and responsive, No focal deficits noted Abdomen: Soft, Non-Tender Skin: No rashes noted on visualized skin Musculoskeletal: No Chest Wall Tenderness Extremities: No Clubbing, No Cyanosis, No Edema, Normal Pulses Results 06/30/17 14:09 06/30/17 08:20 Lab Results Impressions Chest X-Ray 06/30/17 07:44 IMPRESSION: Mild right lower lobe atelectasis D/ / Kenny Contreras MD / Kenny Contreras MD Interpreting Provider: Kenny Contreras MD Chest CTA 06/30/17 08:20 IMPRESSION: No evidence of pulmonary embolism. Multiple small ground-glass nodules throughout both lungs with peribronchial cuffing in both lung bases and trace left pleural effusion suggesting atypical pneumonia. Recommend clinical correlation and follow-up to resolution. The ground-glass nodules measure 4 to 6 mm in size and are scattered throughout all lobes. RECOMMENDATIONS: Fleischner Society guidelines for follow-up and management of incidentally detected subsolid pulmonary nodules: Multiple subsolid nodules < 6 mm - CT at 3-6 months. If stable, consider CT at 2 and 4 years. - Low risk patients include individuals with minimal or absent history of smoking and other known risk factors. - High risk patients include individuals with a history or smoking or known risk factors. Radiology 2017 http://pubs.rsna.org/doi/full/10.1148/radiol.0177355349 D/ / 06/30/2017 11:52:34 Anthony Basilio MD / bcarter Interpreting Provider: Anthony Basilio MD Current Medications Acetaminophen (Tylenol) 650 mg PO Q6HR PRN PRN Reason: Mild Pain (1-3) Stop: 12/30/17 12:20 Albuterol Sulfate (Proventil Neb) 2.5 mg IH Q6H PRN; Protocol PRN Reason: Dyspnea Stop: 12/30/17 14:11 Amitriptyline HCl (Elavil) 50 mg PO HS [facility] Stop: 12/30/17 21:01 Aspirin (Aspirin Ec) 325 mg PO DAILY [facility] Stop: 12/31/17 09:01 Atorvastatin Calcium (Lipitor) 40 mg PO HS [facility] Stop: 12/30/17 21:01 Calcium Acetate (Phos-Lo) 667 mg PO TIDWM [facility] Stop: 12/30/17 17:01 Famotidine (Pepcid) 10 mg PO Q48H [facility] Stop: 12/30/17 21:01 Heparin Sodium (Porcine) (Heparin) 3,500 unit 60 unit/kg (3500 unit) IVP Q6HR PRN PRN Reason: SEE COMMENTS Stop: 12/30/17 12:26 Heparin Sodium (Porcine) (Heparin) 1,700 unit 30 unit/kg (1700 unit) IVP Q6H PRN PRN Reason: SEE COMMENTS Stop: 12/30/17 12:26 Diltiazem HCl 125 mg/ Dextrose 125 mls @ 10 mls/hr IVC .[id number] MARIANO; 10 MG/HR PRN Reason: Protocol Stop: 12/30/17 09:31 Last Admin: 06/30/17 09:56 Dose: 10 mg/hr, 10 mls/hr Heparin Sodium/Dextrose (Heparin 25,000 Unit/500 Ml D5w) 25,000 unit in 500 mls @ 13.825 mls/hr IVC .Q24H MARIAON; 12 UNIT/KG/HR PRN Reason: Protocol Stop: 12/30/17 12:31 Last Admin: 06/30/17 15:18 Dose: 12 unit/kg/hr, 13.825 mls/hr Sodium Chloride (0.9 % Sodium Chloride) 250 mls @ 937.5 mls/hr IVC .Q16M PRN PRN Reason: Hypotension Stop: 12/30/17 13:47 Magnesium Sulfate 1 gm/ (Dextrose) 102 mls @ 100 mls/hr IVPB ONCE ONE Stop: 06/30/17 18:01 Piperacillin Sod/Tazobactam (Sod 3.375 gm/ Dextrose) 100 mls @ 25 mls/hr IVPB Q12H [facility] Stop: 12/30/17 18:01 Vancomycin HCl 750 mg/ (Dextrose) 250 mls @ 250 mls/hr IVPB ONCE ONE Stop: 06/30/17 18:59 Lactobacillus Acidophilus/Rhamnosus (Culturelle) 1 each PO BID [facility] Stop: 12/30/17 21:01 Levothyroxine Sodium (Synthroid) 350 mcg PO 0630 [facility] Stop: 12/31/17 06:31 Lidocaine/Prilocaine (Emla) 1 gm TP AD PRN PRN Reason: PAIN RELIEF Stop: 12/30/17 14:11 Naloxone HCl (Narcan) 0.4 mg IVP Q2MIN PRN PRN Reason: Opioid Reversal Stop: 12/30/17 12:20 Nicotine (Nicoderm) 21 mg TD DAILY MARIANO PRN Reason: Protocol Stop: 12/31/17 09:01 Ondansetron HCl (Zofran) 4 mg IVP Q8HR PRN; Protocol PRN Reason: Nausea And Vomiting Stop: 12/30/17 14:56 Pharmacy Profile Note (Patient Taking Own Medication) 0 each IH BID [facility] Stop: 12/30/17 21:01 Vitamin B Complex/Vit C/Folic Acid (Renal Caps Softgel) 1 mg PO DAILY [facility] Stop: 12/31/17 09:01 Vitamin D (Vitamin D) 1,000 unit PO DAILY [facility] Stop: 12/31/17 09:01 Laboratory Tests 06/30/17 06/30/17 06/30/17 08:20 08:20 08:20 Hgb 10.0 L Potassium 4.1 Creatinine 12.01 H Magnesium Troponin I 0.04 H* TSH 06/30/17 06/30/17 06/30/17 14:09 14:09 14:09 Hgb Potassium Creatinine Magnesium 1.2 L Troponin I 0.02 TSH 9.437 H - Imaging and Cardiology Chest Xray: report reviewed Echo: report reviewed - EKG Interpretation EKG results cardiology: personally reviewed (ECG with atrial fibrillation, HR 139 on admisison.), other (Per telemetry, current SR, HR 70s.) Consult Discharge Plan - Plan Referrals: Na Johansen, PCU RN [Primary Care Provider] -
[2017-06-30] MEDS: Heparin 25,000 UNIT/500 ML D5W 25,000 UNIT/500 ML MLS IVC SCH (15:18)
[2017-06-30] MEDS ORDERED: 0.9 % Sodium Chloride 1,000 ML ONE (16:04)
--- NOTE | 2017-06-30 16:28 | Nephrology Consult Note ---
Date of Encounter: 06/30/17 Time of Encounter: 16:26 Assessment and Plan (1) ESRD (end stage renal disease) Current Visit: Yes Status: Acute HD MWF. HD today and will check for dialysis needs Friday. Renal dose medications Patient seen on dialysis. (2) Atrial fibrillation with rapid ventricular response Current Visit: Yes Status: Acute Per primary team. On diltiazem. (3) Atypical pneumonia Current Visit: Yes Status: Acute Per primary team. Antibiotics. (4) Metabolic acidosis Current Visit: Yes Status: Chronic Dialysis. (5) Hypothyroid Current Visit: Yes Status: Acute Per primary team. Qualifiers: Qualified Code(s): E03.9 - Hypothyroidism, unspecified History of Present Illness - Reason for Consult Consult date: 06/30/17 end stage renal disease - Chief Complaint ESRD - History of Present Illness Ms Parra is a 71 yo woman with ESRD. She is known to [facility]. She presents for dyspnea and was found to have Afib with RVR. She gets dialysis MWF and missed her Friday session. Past Med Surg Social Fam HX - Past Medical History Medical history: asthma, COPD, GERD, hypertension, renal disease, thyroid disease Psychiatric history: no psych history - Past Surgical History Surgical History: appendectomy, cholecystectomy, colostomy, hysterectomy, other - Social History Smoking Status: Current every day smoker Smokeless Tobacco Status: No Alcohol use: none Drug use: none - Family History Mother Adopted: No Living Status: Hx Family Cardiac Disorders: Yes Hx Family Respiratory Disorders: No Hx Family Cancer: No Hx Family GI Disorders: No Hx Family Endocrine Disorder: No Hx Family Neuromuscular Disorders: No Hx Family Neurologic Disorders: No Hx Family HEENT Disorders: No Hx Family Autoimmune Disorders: No Father Adopted: No Living Status: Hx Family Cardiac Disorders: Yes Hx Family Respiratory Disorders: No Hx Family Cancer: No Hx Family GI Disorders: No Hx Family Endocrine Disorder: No Hx Family Neuromuscular Disorders: No Hx Family Neurologic Disorders: No Hx Family HEENT Disorders: No Hx Family Autoimmune Disorders: No Brother Hx Family Cardiac Disorders: Yes (SD) Medications and Allergies Amitriptyline [Elavil] 50 mg PO HS 09/19/15 [History] Cholecalciferol (Vitamin D3) [Vitamin D3] 5,000 unit PO DAILY #0 09/19/15 [ History] Ranitidine HCl [Zantac] 150 mg PO HS 09/19/15 [History] Calcium Acetate [Phos-LO] 667 mg PO TIDWM 02/21/17 [History] Cyanocobalamin (B-12) [Vitamin B12] 1,000 mcg IM QMONTH 02/21/17 [History] Levothyroxine Sodium [Synthroid] 300 mcg PO DAILY 02/21/17 [History] Mometasone/Formoterol [Dulera 100 Mcg/5 Mcg Inhaler] 2 puff IH BID 02/21/17 [ History] Lactobacillus [Culturelle] 1 each PO BID #60 cap.sprink 03/10/17 [Rx] Albuterol Neb [Proventil Neb] 2.5 mg IH Q6H PRN 06/30/17 [History] Lidocaine/Prilocaine CREAM [Emla] 1 appl TP AD PRN 06/30/17 [History] Renal Vitamin [Renal Caps Softgel] 1 mg PO DAILY 06/30/17 [History] 3 Allergy/AdvReac Type Severity Reaction Status Date / Time codeine AdvReac Severe Vomiting Verified 03/06/17 15:22 naproxen [From Naprosyn] AdvReac Severe Vomiting Verified 03/06/17 15:22 Review of Systems All Systems: reviewed and no additional remarkable complaints except as stated ( as documented in the HPI.) Exam - Vital Signs Vital signs: Initial Vital Signs Temp Pulse Resp BP Pulse Ox 98.1 F 132 20 109/69 97 06/30/17 07:16 06/30/17 07:16 06/30/17 07:16 06/30/17 07:16 06/30/17 07:16 - General Appearance General appearance: well-developed, well-nourished EENT: ATNC Neck: supple Respiratory: wheezing, course breath sounds, rhonchi Cardiology: edema Additional Comments: tachycardia and irregular Gastrointestinal: no tenderness Integumentary: warm and dry Neurologic: alert and oriented x3 Musculoskeletal: no cyanosis Psychiatric: mood/affect appropriate Results - Lab Results 06/30/17 14:09 06/30/17 08:20 Most recent lab results Calcium 7.8 mg/dL (8.6-10.8) L 06/30/17 08:20 Phosphorus 14.9 mg/dL (2.3-4.7) H 06/30/17 14:09 Magnesium 1.2 mg/dL (1.6-2.6) L 06/30/17 14:09 Consult Discharge Plan - Plan Referrals: Na Johansen, TYLER [Primary Care Provider] -
[2017-06-30] MEDS: Albuterol 2.5 MG/3 ML NEBULIZER IH PRN (16:51)
[2017-06-30] MEDS ORDERED: Magnesium Sulfate 1 GM in D5% in Water 100 ML IVPB ONE (17:00)
[2017-06-30] MEDS ORDERED: Piperacillin/Tazobactam 3.375 GM in D5% in Water (Mini-Bag+) 100 ML IVPB SCH (18:00)
[2017-06-30] MEDS: Calcium Acetate 667 MG CAPSULE PO SCH (18:36)
[2017-06-30 19:10] LABS: Hepatitis B Surface Antigen Nonreactive (Nonreactive)
[2017-06-30 19:11] LABS: Hepatitis B Surface Antibody 382.72 mIU/mL
[2017-06-30] MEDS: Lactobacillus 1 EACH CAP.SPRINK PO SCH (20:29)
[2017-06-30] MEDS: (Mometasone/Formoterol [Dulera 100 Mcg/5 Mcg Inhaler]) IH SCH (20:44)
[2017-06-30] MEDS: Ondansetron 4 MG/2 ML VIAL IVP PRN (20:50)
[2017-06-30] MEDS: *HR* HYDROcodone/Acet 5/325 mg TABLET PO PRN (20:50)
[2017-06-30] MEDS ORDERED: Famotidine 20 MG TABLET PO SCH (21:00)
[2017-06-30] MEDS: Piperacillin/Tazobactam 3.375 GM in D5% in Water (Mini-Bag+) 100 ML IVPB SCH (21:40)
[2017-06-30] MEDS: *HR* Heparin 5,000 UNIT/ML VIAL IVP PRN (23:28)
[2017-07-01] MEDS: Acetaminophen 325 MG TABLET PO PRN ×2 (03:31→22:41)
[2017-07-01] MEDS: Ondansetron 4 MG/2 ML VIAL IVP PRN ×2 (05:30→14:40)
[2017-07-01] MEDS: *HR* HYDROcodone/Acet 5/325 mg TABLET PO PRN ×3 (05:39→18:46)
[2017-07-01 05:52] LABS: Basophils % 0.2 %; Eosinophils % 2.8 %; Immature Granulocytes % 0.5 % (0-4); Monocytes % 5.3 %; Red Cell Distribution Width 15.5 % (11.5-14.5)
[2017-07-01 05:54] LABS: Eosinophils # 0.1 K/mcL (0.0-0.6); Hemoglobin 8.2 g/dL (11.5-15.4); Immature Platelets 5.6 % (1.1-6.1); Lymphocytes # 0.9 K/mcL (0.6-4.6); Lymphocytes % 21.5 %; Mean Corpuscular HGB Conc 31.5 g/dL (31.6-35.5); Mean Corpuscular Hemoglobin 29.7 pg (28.0-33.3); Mean Corpuscular Volume 94.2 fL (83.0-100.0); Mean Platelet Volume 11.5 fL (9.4-12.4); Monocytes # 0.2 K/mcL (0.0-1.3); Red Blood Count 2.76 M/mcL (3.82-4.97); Segmented Neutrophils % 69.7 %
[2017-07-01 05:56] LABS: Platelet Count 91 K/mcL (140-400)
[2017-07-01 06:11] LABS: Calcium 7.3 mg/dL (8.6-10.8); Chol/HDL Ratio 2.2 (0-4.9); Potassium 3.3 mEq/L (3.5-4.5)
[2017-07-01] MEDS: Calcium Acetate 667 MG CAPSULE PO SCH ×3 (08:11→17:27)
[2017-07-01] MEDS: Renal Vitamin 1 MG CAPSULE PO SCH (08:11)
[2017-07-01] MEDS: Aspirin Enteric Coated 81 MG Tablet PO SCH (08:11)
[2017-07-01] MEDS: Lactobacillus 1 EACH CAP.SPRINK PO SCH ×2 (08:11→22:41)
[2017-07-01] MEDS: Cholecalciferol (D-3) 1,000 UNIT TABLET PO SCH (08:11)
[2017-07-01] MEDS: *HR* Heparin 5,000 UNIT/ML VIAL IVP PRN ×3 (08:12→22:43)
[2017-07-01] MEDS: Nicotine 21 MG PATCH.TD24 TD SCH (08:12)
[2017-07-01] MEDS: Piperacillin/Tazobactam 3.375 GM in D5% in Water (Mini-Bag+) 100 ML IVPB SCH (08:13)
[2017-07-01] MEDS: (Mometasone/Formoterol [Dulera 100 Mcg/5 Mcg Inhaler]) IH SCH (08:14)
[2017-07-01] MEDS ORDERED: Aspirin Enteric Coated 325 MG Tablet PO SCH (09:00)
--- NOTE | 2017-07-01 10:12 | Nephrology Progress Note ---
Date of Encounter: 07/01/17 Time of Encounter: 10:10 - Assessment and Plan (1) ESRD (end stage renal disease) Current Visit: Yes Status: Acute Plan for dialysis tomorrow Continue renal diet Avoid nephrotoxins if possible. (2) Atrial fibrillation with rapid ventricular response Current Visit: Yes Status: Acute per primary team (3) Anemia in chronic kidney disease Current Visit: Yes Status: Chronic Hgb 8.2 Goal hgb 10-11 Qualifiers: Chronic kidney disease stage: on chronic dialysis Qualified Code(s): N18.6 - End stage renal disease; D63.1 - Anemia in chronic kidney disease; Z99.2 - Dependence on renal dialysis (4) Chest pain Current Visit: Yes Status: Acute per cardiology team Qualifiers: Chest pain type: unspecified Qualified Code(s): R07.9 - Chest pain, unspecified Subjective Principal diagnosis: atypical pneumonia, ESRD on dialysis Interval history: Patient seen and examined. Very pleasant but has painful cough. Objective - Vital Signs Vital signs: Vital Signs Temp Pulse Resp BP Pulse Ox 07/01/17 07:16 97.9 F 74 16 95/53 98 07/01/17 04:36 76 16 94/54 98 07/01/17 04:00 98.6 F 76 17 100/48 98 07/01/17 03:25 74 16 98/51 100 06/30/17 23:42 82 16 113/52 98 06/30/17 22:14 80 100/53 06/30/17 21:04 116 135/58 06/30/17 20:15 96 06/30/17 19:45 124 18 96/73 94 06/30/17 19:00 97.3 F L 18 98/49 06/30/17 18:40 100/51 06/30/17 18:25 107/59 06/30/17 18:10 108/53 06/30/17 17:55 103/60 06/30/17 17:40 111/65 06/30/17 17:25 96/73 06/30/17 17:10 106/46 06/30/17 16:55 117/59 06/30/17 16:51 16 83 06/30/17 16:40 113/67 06/30/17 16:25 102/59 06/30/17 16:10 117/60 06/30/17 15:55 110/75 08/28/17 15:40 98.2 F 18 125/61 Intake and Output 06/30/17 07/01/17 07/01/17 23:59 07:59 15:59 Intake Total 232 / 232 324.1 / 324.1 110 / 110 Output Total 3600 / 3600 0 / 0 Balance -3368 / -3368 324.1 / 324.1 110 / 110 Intake: IV Fluids 232 / 232 324.1 / 324.1 110 / 110 Cardizem 125 MG In 122.1 / 122.1 Dextrose 5% 100 ML @ 10 MG/HR 10 mls/hr IVC . [id number] [facility] Rx#: [id number] Heparin 25,000 UNIT/500 128 / 128 110 / 110 ML D5W 25,000 unit In 500 ml @ 12 UNIT/KG/HR 13. 825 mls/hr IVC .Q24H [facility] Rx#:[id number] Magnesium Sulfate 1 GM In 104 / 104 102 / 102 Dextrose 5% 100 ML @ 100 mls/hr IVPB ONCE ONE Rx# :[id number] Zosyn 3.375 GM In 100 / 100 Dextrose 5% (Minibag+) 100 ML 100 ML @ 25 mls/hr IVPB Q12H [facility] Rx#: [id number] Oral 0 / 0 Output: Urine 0 / 0 0 / 0 Total Dialysis (HD) 3600 / 3600 Output Other: Hemodialysis Net Fluid 3000 Removed (mL) - General Appearance General appearance: Present: chronically ill, frail EENT: Present: ATNC, mucous membranes moist, hearing intact, vision intact Neck: Present: supple Respiratory: Present: wheezing, rhonchi Cardiology: Present: no edema, normal S1, normal S2 Dialysis Vascular Access: Arteriovenous Fistula Gastrointestinal: Present: no tenderness, no guarding Integumentary: Present: warm and dry Neurologic: Present: alert and oriented x3 Psychiatric: Present: mood/affect appropriate, cooperative - Lab 07/01/17 05:30 07/01/17 05:30 Most recent lab results Calcium 7.3 mg/dL (8.6-10.8) L 07/01/17 05:30 Phosphorus 14.9 mg/dL (2.3-4.7) H 06/30/17 14:09 Magnesium 1.2 mg/dL (1.6-2.6) L 06/30/17 14:09 Consult Discharge Plan - Plan Referrals: Na Johansen, TYLER [Primary Care Provider] -
[2017-07-01] MEDS: Ipratropium Neb 0.5 MG NEBULIZER IH SCH ×5 (10:34→23:10)
--- NOTE | 2017-07-01 10:42 | Cardiology Progress Note ---
Date of Encounter: 07/01/17 Time of Encounter: 09:30 Assessment and Plan (1) Atypical pneumonia Current Visit: Yes Status: Acute Per cardiology: -Diagnosed with atypical pneumonia per CT. -On ATB per primary service. -Admits to chest pain upon breathing. -Managment pet primary service. (2) Nausea and vomiting Current Visit: No Status: Acute Per cardiology: -Admitted with nausea and vomiting for 3 days. -reports poor oral intake. -Mangement per primary service. Qualifiers: Vomiting type: unspecified Vomiting Intractability: non-intractable Qualified Code(s): R11.2 - Nausea with vomiting, unspecified (3) Atrial fibrillation with rapid ventricular response Current Visit: Yes Status: Acute Per cardiology: -New onset atrial fibrillation with RVR. -On cardizem po 60mg -CHads 2vasc score 2 (age, Gender). Recommend anticoagulation. CUrrently on heparin drip. -Hemoglobin on admission 10, today 8.2. Admits to blood in urine and stool. Patient with urostomy and ileostomy. -Echo with LVEF 55%, mild concentric left ventricular hypertrophy, atypical septal motion consistent with bundle branch block, moderately dilated left atrium, no significant valvular dysfunction, all garcia with normal motion. -Previous echo with LVEF 60-65%. -CUrrently SR, HR 70s per telemetry. -Patient reports holding down oral medications now. -Mg 1.2 on admission, may be contributing factor. -Can consider GI and urology evaluation for bleeding. -WIll continue to monitor, will change to cardizem CD in am. -Recommend joint terminal attack controller anticoagulation, once anemia is stable. (4) Hypomagnesemia Current Visit: No Status: Acute Per cardiology -Mg 1.2 in the setting of vomiting yesterday. -Replaced per primary service. -Will re-check Mg today. (5) Elevated troponin Current Visit: Yes Status: Acute Per cardiology: -Troponin 0.04, 0.02, 0.05, 0.12 in the setting of peummonia, vomiting, electroplyte disturbances, and ESRD with missed dialysis. -Troponins flat anf adynamic. -ADmits to chest pain with breathing. -echo as above. LVEF 55%, all garcia with normal motion. -ECGs reviewed with , new incomplete bundle branch block noted. No urgent ishcemic evaluation needed. Suspect may be related to electrolyte disturbances. -DO not suspect NSTEMI, suspect demand ischemia related to above. No cardiac rehab warranted at this time. -Will continue to monitor. -Can consider outpatient ishcemic evaluation. (6) Anemia Current Visit: Yes Status: Chronic Per cardiology: -Known chronic anemia. -Hemoglobin on admission 10. -Current hemoglobin 8.2. -Admits to blood in urine and stool, -Can consider GI and urology consultation. Qualifiers: Anemia type: unspecified type Qualified Code(s): D64.9 - Anemia, unspecified (7) Chest pain Current Visit: Yes Status: Acute Per cardiology: -ADmits to chest pain upon breathing in the setting of pneumonia. -Denies excedrtional chest pain. -Echo as above. -Mildly elevated troponin. -Will continue to monitor. Qualifiers: Chest pain type: chest pain on breathing Qualified Code(s): R07.1 - Chest pain on breathing; R07.81 - Pleurodynia Discussion w patient/family: The assessment and plan as outlined above was discussed with the patient who expressed understanding and agreement. All questions were answered. Thank you for involving us in the care of your patient. Please call with any questions. Discussed and reviewed with . Subjective Principal diagnosis: atypical pneumonia, ESRD on dialysis Interval history: Patient states she feels mildly improved from yesterday. Patient reports current chest pain when breathing. Patient denies palpitations or fluttering. Admits to some shortness of breath. Objective Vital Signs, Last 4 Hours Temp Pulse Resp BP Pulse Ox 07/01/17 10:37 16 98 07/01/17 07:16 97.9 F 74 16 95/53 98 General: Conversant, No Apparent Distress HEENT: Atraumatic, Normocephaly, Mucus Membranes Moist Neck: No JVD, Normal carotid pulses Cardiac: Reg Rate and Rhythm, Normal S1 and S2, No Murmur Lungs: Other (RHonchi noted throughout) Neuro: Alert and responsive, No focal deficits noted Abdomen: Soft, Non-Tender Skin: No rashes noted on visualized skin Musculoskeletal: No Chest Wall Tenderness Extremities: No Clubbing, No Cyanosis, No Edema, Normal Pulses Results 07/01/17 05:30 07/01/17 05:30 Lab Results Impressions Chest CTA 06/30/17 08:20 IMPRESSION: No evidence of pulmonary embolism. Multiple small ground-glass nodules throughout both lungs with peribronchial cuffing in both lung bases and trace left pleural effusion suggesting atypical pneumonia. Recommend clinical correlation and follow-up to resolution. The ground-glass nodules measure 4 to 6 mm in size and are scattered throughout all lobes. RECOMMENDATIONS: Fleischner Society guidelines for follow-up and management of incidentally detected subsolid pulmonary nodules: Multiple subsolid nodules < [address] mm - [address] at 3-6 months. If stable, consider CT at 2 and 4 years. - Low risk patients include individuals with minimal or absent history of smoking and other known risk factors. - High risk patients include individuals with a history or smoking or known risk factors. Radiology 2017 http://pubs.rsna.org/doi/full/10.1148/radiol.5196234104 D/ / 06/30/2017 11:52:34 Anthony Basilio MD / [email or web address] Interpreting Provider: Anthony Basilio MD Active Medications Acetaminophen (Tylenol) 650 mg PO Q6HR PRN PRN Reason: Mild Pain (1-3) Stop: 12/30/17 12:20 Last Admin: 07/01/17 03:31 Dose: 650 mg Hydrocodone Bitart/Acetaminophen (Terry 5-325 Mg) 1 tab PO Q6HR PRN PRN Reason: Severe Pain Stop: 12/30/17 18:45 Last Admin: 07/01/17 05:39 Dose: 1 tab Albuterol Sulfate (Proventil Neb) 2.5 mg IH Q6H PRN; Protocol PRN Reason: Dyspnea Stop: 12/30/17 14:11 Last Admin: 06/30/17 16:51 Dose: 2.5 mg Amitriptyline HCl (Elavil) 50 mg PO HS MARIANO Stop: 12/30/17 21:01 Last Admin: 06/30/17 20:29 Dose: 50 mg Aspirin (Aspirin Ec) 81 mg PO DAILY MARIANO Stop: 12/31/17 09:01 Last Admin: 07/01/17 08:11 Dose: 81 mg Atorvastatin Calcium (Lipitor) 80 mg PO HS MARIANO Stop: 12/31/17 21:01 Azithromycin (Zithromax) 500 mg PO DAILY MARIANO Stop: 12/31/17 09:01 Calcium Acetate (Phos-Lo) 667 mg PO TIDWM [facility] Stop: 12/30/17 17:01 Last Admin: 07/01/17 08:11 Dose: 667 mg Diltiazem HCl (Cardizem) 60 mg PO Q8HR MARIANO Stop: 12/31/17 08:21 Famotidine (Pepcid) 10 mg PO Q48H MARIANO Stop: 12/30/17 21:01 Last Admin: 06/30/17 20:29 Dose: 10 mg Guaifenesin (Mucinex Dm) 1 each PO BID [facility] Stop: 12/31/17 09:01 Heparin Sodium (Porcine) (Heparin) 3,500 unit 60 unit/kg (3500 unit) IVP Q6HR PRN PRN Reason: SEE COMMENTS Stop: 12/30/17 12:26 Last Admin: 07/01/17 08:12 Dose: 3,500 unit Heparin Sodium (Porcine) (Heparin) 1,700 unit 30 unit/kg (1700 unit) IVP Q6H PRN PRN Reason: SEE COMMENTS Stop: 12/30/17 12:26 Heparin Sodium/Dextrose (Heparin 25,000 Unit/500 Ml D5w) 25,000 unit in 500 mls @ 13.825 mls/hr IVC .Q24H MARIANO; 12 UNIT/KG/HR PRN Reason: Protocol Stop: 12/30/17 12:31 Last Titration: 07/01/17 08:00 Dose: 20.31 unit/kg/hr, 23.4 mls/hr Sodium Chloride (0.9 % Sodium Chloride) 250 mls @ 937.5 mls/hr IVC .Q16M PRN PRN Reason: Hypotension Stop: 12/30/17 13:47 Ceftriaxone Sodium 1,000 mg/ (Dextrose) 100 mls @ 200 mls/hr IVPB Q24H [facility] Stop: 12/31/17 09:01 Ipratropium [place] (Atrovent Neb) 0.5 mg IH [id number] [facility] Stop: 12/31/17 08:46 Last Admin: 07/01/17 10:37 Dose: 0.5 mg Lactobacillus Acidophilus/Rhamnosus (Culturelle) 1 each PO BID [facility] Stop: 12/30/17 21:01 Last Admin: 07/01/17 08:11 Dose: 1 each Levothyroxine Sodium (Synthroid) 350 mcg PO 0630 [facility] Stop: 12/31/17 06:31 Last Admin: 07/01/17 05:42 Dose: 350 mcg Lidocaine HCl (Lidoderm 5% Patch) 1 each TP DAILY MARIANO Stop: 12/31/17 09:01 Lidocaine/Prilocaine (Emla) 1 gm TP AD PRN PRN Reason: PAIN RELIEF Stop: 12/30/17 14:11 Methylprednisolone (Solu-Medrol) 40 mg IVP Q8HR MARIANO Stop: 12/31/17 16:01 Naloxone HCl (Narcan) 0.4 mg IVP Q2MIN PRN PRN Reason: Opioid Reversal Stop: 12/30/17 12:20 Nicotine (Nicoderm) 21 mg TD DAILY MARIANO PRN Reason: Protocol Stop: 12/31/17 09:01 Last Admin: 07/01/17 08:12 Dose: 21 mg Ondansetron HCl (Zofran) 4 mg IVP Q8HR PRN; Protocol PRN Reason: Nausea And Vomiting Stop: 12/30/17 14:56 Last Admin: 07/01/17 05:30 Dose: 4 mg Pharmacy Profile Note (Patient Taking Own Medication) 0 each IH BID MARIANO Stop: 12/30/17 21:01 Last Admin: 07/01/17 08:14 Dose: Not Given Vitamin B Complex/Vit C/Folic Acid (Renal Caps Softgel) 1 mg PO DAILY MARIANO Stop: 12/31/17 09:01 Last Admin: 07/01/17 08:11 Dose: 1 mg Vitamin D (Vitamin D) 1,000 unit PO DAILY MARIANO Stop: 12/31/17 09:01 Last Admin: 07/01/17 08:11 Dose: 1,000 unit Laboratory Tests 06/30/17 06/30/17 06/30/17 08:20 08:20 14:09 Hgb 10.0 L Plt Count Creatinine Troponin I 0.04 H* TSH 9.437 H 06/30/17 06/30/17 06/30/17 14:09 14:09 16:10 Hgb Plt Count 118 L Creatinine Troponin I 0.02 0.05 H* TSH 07/01/17 07/01/17 07/01/17 05:30 05:30 06:20 Hgb 8.2 L D Plt Count 91 L Creatinine 6.75 H Troponin I 0.12 H* TSH - Imaging and Cardiology Chest Xray: report reviewed Echo: report reviewed - EKG Interpretation EKG results cardiology: other (Telemetry reviewed with average HR previous 12 hours noted to be 81, sinus rhythm. PACs noted. No atrial fibrillation noted.) Consult Discharge Plan - Plan Referrals: Na Johansen CNP [Primary Care Provider] -
[2017-07-01] MEDS: GuaiFENesin/Dextromethorphan TABLET PO SCH ×2 (12:13→22:41)
[2017-07-01] MEDS: Azithromycin 250 MG TABLET PO SCH (12:13)
[2017-07-01] MEDS: Diltiazem CD (24hr) 120 MG CAPSULE PO SCH (12:13)
[2017-07-01 13:53] LABS: Magnesium 2.3 mg/dL (1.6-2.6)
--- NOTE | 2017-07-01 14:13 | Internal Med Progress Note ---
Date of Encounter: 07/01/17 Time of Encounter: 11:50 - Assessment and plan (1) COPD (chronic obstructive pulmonary disease) Current Visit: Yes Status: Chronic Assessment and plan: Patient has acute exacerbation of COPD per stated by her atypical pneumonia. Continue intravenous steroids. Continue antibiotics. Breathing treatments [id number]. Cough suppressant as the patient is dry cough that is not productive. Patient is high risk due to COPD exacerbation and acute respiratory failure and risk of worsening respiratory failure which may require intubation and mechanical ventilation. Qualifiers: COPD type: COPD with acute exacerbation Qualified Code(s): J44.1 - Chronic obstructive pulmonary disease with (acute) exacerbation (2) Pneumonia Current Visit: Yes Status: Acute Assessment and plan: Atypical pneumonia and bilateral lower lobes. Down grade antibiotics to Rocephin and azithromycin and follow patient's response. Check for urine streptococcal and Legionella antigens. Qualifiers: Pneumonia type: due to unspecified organism Laterality: bilateral Lung location: lower lobe of lung Qualified Code(s): J18.9 - Pneumonia, unspecified organism (3) Atrial fibrillation Current Visit: Yes Status: Chronic Assessment and plan: Cardiology on board. Patient on anticoagulation due to elevated stroke risk. Rate controlled. We will repeat her hemoglobin and hematocrit today. If it remains stable, patient can be started on Coumadin. Check occult blood testing. If it drops, we will discontinue heparin drip and consult GI and/or urology to determine the source of bleeding. Qualifiers: Atrial fibrillation type: persistent Qualified Code(s): I48.1 - Persistent atrial fibrillation (4) ESRD (end stage renal disease) Current Visit: Yes Status: Chronic Assessment and plan: Nephrology on board. Dialysis per nephrology. (5) Presence of urostomy Current Visit: No Status: Chronic (6) Tobacco abuse Current Visit: Yes Status: Chronic Assessment and plan: Counseled extensively regarding the need for cessation. - Subjective Interval history: Patient states that she has a dry cough and this causes chest pain. Reports a dull pain all over her chest without any radiation that is worsened with coughing. Denies any sputum production. Reports intermittent wheezing. Denies feeling lightheaded. Denies any abdominal pain, nausea or vomiting. - Constitutional Vitals: Temp Pulse Resp BP Pulse Ox 98.2 F 80 18 109/64 100 07/01/17 11:10 07/01/17 11:10 07/01/17 11:10 07/01/17 11:10 07/01/17 11:10 Exam: Gen.: Lying in bed. No acute distress. Chest: Bilateral diffuse wheezing present. Not using accessory muscles of respiration. Reduced air entry bilaterally. CVS: First and second heart sounds present. No murmurs, rubs or gallops. Abdomen: Soft, nontender, nondistended. Bowel sounds present. Colostomy and urostomy bags present over the abdomen. Skin: No decubitus ulcers appreciated. Internal Medicine: Result - Labs CBC & Chem 7: 07/01/17 05:30 07/01/17 05:30 Labs: Short CBC 07/01/17 Range/Units 05:30 WBC 4.3 (4.3-11.1) K/mcL Hgb 8.2 L D (11.5-15.4) g/dL Hct 26.0 L (35.3-44.9) % Plt Count 91 L (140-400) K/mcL Neutrophils # 3.0 (1.6-8.9) K/mcL BMP 07/01/17 05:30 Sodium 139 Potassium 3.3 L Chloride 99 Carbon Dioxide 25 D BUN 31 H D Creatinine 6.75 H Glucose 112 H Calcium 7.3 L Cardiac Enzymes 06/30/17 07/01/17 Range/Units 16:10 06:20 Troponin I 0.05 H* 0.12 H* (0-0.03) ng/mL - ABG Interpretation ABG results: PT/INR, D-dimer PT 14.4 Seconds (9.4-12.1) H 06/30/17 14:09 Consult Discharge Plan - Plan Referrals: Na Johansen, [facility] [Primary Care Provider] -
[2017-07-01 15:06] LABS: Hematocrit 27.2 % (35.3-44.9); Hemoglobin 8.7 g/dL (11.5-15.4); Mean Corpuscular Hemoglobin 30.5 pg (28.0-33.3); Mean Corpuscular Volume 95.4 fL (83.0-100.0); Mean Platelet Volume 12.1 fL (9.4-12.4); Platelet Count 113 K/mcL (140-400); Red Blood Count 2.85 M/mcL (3.82-4.97); Red Cell Distribution Width 15.5 % (11.5-14.5)
[2017-07-01] MEDS: MethylPREDNISolone 40 MG/ML VIAL IVP SCH ×2 (15:36→23:00)
--- NOTE | 2017-07-01 17:00 | Electrocardiograph Report ---
[place] [id number] Test Date: 2017-06-30 Pat Name: Vannessa Parra Department: 104 Room: [facility] Gender: F Commercial Fisher: LOBO : 1945 Requested By: Gen Frost Order Number: [id number] Reading MD: Angelica Germain Measurements Intervals Vici Rate: 90 P: 40 CO: 143 QRS: 41 QRSD: 81 T: 72 QT: 374 QTc: 421 Interpretive Statements SINUS RHYTHM NONSPECIFIC T-WAVE ABNORMALITY Electronically Signed On 07-01-2017 16:59:03 EDT by Angelica Germain
[2017-07-01] MEDS ORDERED: Warfarin perPT PO PRN (18:00)
[2017-07-01] MEDS ORDERED: *HR* Warfarin 5 MG TABLET PO ONE (18:00)
[2017-07-01] MEDS ORDERED: Budesonide/Formoterol 80/4.5 MDI IH SCH ×2 (22:00)
[2017-07-01] MEDS: Heparin 25,000 UNIT/500 ML D5W 25,000 UNIT/500 ML MLS IVC SCH (22:47)
[2017-07-02] MEDS: Ondansetron 4 MG/2 ML VIAL IVP PRN ×3 (01:43→15:53)
[2017-07-02] MEDS: *HR* HYDROcodone/Acet 5/325 mg TABLET PO PRN ×4 (01:43→21:09)
[2017-07-02] MEDS: Albuterol 2.5 MG/3 ML NEBULIZER IH PRN ×2 (02:13→23:25)
[2017-07-02] MEDS: Ipratropium Neb 0.5 MG NEBULIZER IH SCH ×6 (03:47→23:25)
[2017-07-02 05:28] LABS: INR 1.3
[2017-07-02 05:30] LABS: Hematocrit 26.2 % (35.3-44.9)
[2017-07-02 05:31] LABS: Activated Partial Thrombo Time 44.9 Seconds (26.0-36.0)
[2017-07-02 05:32] LABS: Basophils % 0.3 %; Hemoglobin 8.2 g/dL (11.5-15.4); Immature Granulocytes % 0.7 % (0-4); Lymphocytes # 0.3 K/mcL (0.6-4.6); Mean Corpuscular HGB Conc 31.3 g/dL (31.6-35.5); Mean Corpuscular Hemoglobin 30.1 pg (28.0-33.3); Mean Corpuscular Volume 96.3 fL (83.0-100.0); Mean Platelet Volume 11.8 fL (9.4-12.4); Monocytes # 0.1 K/mcL (0.0-1.3); Neutrophils # 2.6 K/mcL (1.6-8.9); Platelet Count 87 K/mcL (140-400); Red Blood Count 2.72 M/mcL (3.82-4.97); Red Cell Distribution Width 15.3 % (11.5-14.5)
[2017-07-02 05:34] LABS: Calcium 7.2 mg/dL (8.6-10.8)
[2017-07-02 05:36] LABS: Potassium 4.8 mEq/L (3.5-4.5)
[2017-07-02] MEDS: *HR* Heparin 5,000 UNIT/ML VIAL IVP PRN (05:59)
[2017-07-02] MEDS: Cholecalciferol (D-3) 1,000 UNIT TABLET PO SCH (08:17)
[2017-07-02] MEDS: GuaiFENesin/Dextromethorphan TABLET PO SCH ×2 (08:17→21:08)
[2017-07-02] MEDS: Lactobacillus 1 EACH CAP.SPRINK PO SCH ×2 (08:17→21:08)
[2017-07-02] MEDS: Renal Vitamin 1 MG CAPSULE PO SCH (08:17)
[2017-07-02] MEDS: Calcium Acetate 667 MG CAPSULE PO SCH ×3 (08:18→17:13)
[2017-07-02] MEDS: MethylPREDNISolone 40 MG/ML VIAL IVP SCH ×2 (08:18→17:17)
[2017-07-02] MEDS: Nicotine 21 MG PATCH.TD24 TD SCH (08:22)
[2017-07-02] MEDS ORDERED: 0.9 % Sodium Chloride 250 ML IVC PRN (08:40)
--- NOTE | 2017-07-02 10:02 | Cardiology Progress Note ---
Date of Encounter: 07/02/17 Time of Encounter: 08:30 Assessment and Plan (1) Atypical pneumonia Current Visit: Yes Status: Acute Per cardiology: -Diagnosed with atypical pneumonia per CT. -On ATB per primary service. -Admits to chest pain upon breathing. -Managment pet primary service. (2) Nausea and vomiting Current Visit: No Status: Acute Per cardiology: -Admitted with nausea and vomiting for 3 days. -reports poor oral intake. -Mangement per primary service. Qualifiers: Vomiting type: unspecified Vomiting Intractability: non-intractable Qualified Code(s): R11.2 - Nausea with vomiting, unspecified (3) Atrial fibrillation with rapid ventricular response Current Visit: Yes Status: Acute Per cardiology: -New onset atrial fibrillation with RVR. -On cardizem CD 120mg. -CHads 2vasc score 2 (age, Gender). Recommend anticoagulation. Had been on heparin drip, now stopped. -Hemoglobin on admission 10, today 8.2. Admits to blood in urine and stool. Patient with urostomy and ileostomy. Stool positive for OB. GI has been consulted. -Echo with LVEF 55%, mild concentric left ventricular hypertrophy, atypical septal motion consistent with bundle branch block, moderately dilated left atrium, no significant valvular dysfunction, all garcia with normal motion. -Previous echo with LVEF 60-65%. -CUrrently SR, HR 70s per telemetry. -Patient reports holding down oral medications now. -Mg 1.2 on admission, may be contributing factor. -Would ideally recommend terminal block assembler anticoagulation if able due to anemia and blood in ostomies, can be addressed in outpatient setting. -Cardiology will sign off and will follow in outpatient setting. Follow up set. (4) Hypomagnesemia Current Visit: No Status: Acute Per cardiology -Mg 1.2 in the setting of vomiting on admission. -Yesterday 2.3. (5) Elevated troponin Current Visit: Yes Status: Acute Per cardiology: -Troponin 0.04, 0.02, 0.05, 0.12 in the setting of peummonia, vomiting, electroplyte disturbances, and ESRD with missed dialysis. -Troponins flat anf adynamic. -ADmits to chest pain with breathing. -echo as above. LVEF 55%, all garcia with normal motion. -ECGs reviewed with , new incomplete bundle branch block noted. No urgent ishcemic evaluation needed. Suspect may be related to electrolyte disturbances. -DO not suspect NSTEMI, suspect demand ischemia related to above. No cardiac rehab warranted at this time. -Will continue to monitor in outpatient setting. -Can consider outpatient ishcemic evaluation, not a candidate for inpatient ischemic eval due to anemia and bleeding. (6) Anemia Current Visit: Yes Status: Chronic Per cardiology: -Known chronic anemia. -Hemoglobin on admission 10. -Current hemoglobin 8.2. -Admits to blood in urine and stool, -Management per primary service. Qualifiers: Anemia type: unspecified type Qualified Code(s): D64.9 - Anemia, unspecified (7) Chest pain Current Visit: Yes Status: Acute Per cardiology: -ADmits to chest pain upon breathing in the setting of pneumonia. -Denies excedrtional chest pain. -Echo as above. -Mildly elevated troponin. -Will continue to monitor in outpatient setting. Qualifiers: Chest pain type: chest pain on breathing Qualified Code(s): R07.1 - Chest pain on breathing; R07.81 - Pleurodynia Discussion w patient/family: The assessment and plan as outlined above was discussed with the patient who expressed understanding and agreement. All questions were answered. Thank you for involving us in the care of your patient. Please call with any questions. Discussed and reviewed with . Subjective Principal diagnosis: atypical pneumonia, ESRD on dialysis Interval history: Patient states she does not feel well today. Patient admits to blood in ostomies. Objective Vital Signs, Last 4 Hours Temp Pulse Resp BP Pulse Ox 07/02/17 07:31 14 92 07/02/17 07:06 98.0 F 70 14 131/65 90 General: Conversant, No Apparent Distress HEENT: Atraumatic, Normocephaly, Mucus Membranes Moist Neck: No JVD, Normal carotid pulses Cardiac: Reg Rate and Rhythm, Normal S1 and S2, No Murmur Lungs: Normal Breath Sounds, No Wheeze, Rales, Rhonchi Neuro: Alert and responsive, No focal deficits noted Abdomen: Soft, Non-Tender, Other (Blood noted in ostomy. ) Skin: No rashes noted on visualized skin Musculoskeletal: No Chest Wall Tenderness Extremities: No Clubbing, No Cyanosis, No Edema, Normal Pulses Results 07/02/17 05:00 07/02/17 05:00 Lab Results Active Medications Acetaminophen (Tylenol) 650 mg PO Q6HR PRN PRN Reason: Mild Pain (1-3) Stop: 12/30/17 12:20 Last Admin: 07/01/17 22:41 Dose: 650 mg Hydrocodone Bitart/Acetaminophen ([place] 5-325 Mg) 1 tab PO Q4H PRN PRN Reason: Severe Pain Stop: 01/01/18 09:01 Last Admin: 07/02/17 09:37 Dose: 1 tab Albuterol Sulfate (Proventil Neb) 2.5 mg IH Q6H PRN; Protocol PRN Reason: Dyspnea Stop: 12/30/17 14:11 Last Admin: 07/02/17 02:13 Dose: 2.5 mg Amitriptyline HCl (Elavil) 50 mg PO HS [facility] Stop: 12/30/17 21:01 Last Admin: 07/01/17 22:41 Dose: 50 mg Aspirin (Aspirin Ec) 81 mg PO DAILY [facility] Stop: 12/31/17 09:01 Last Admin: 07/01/17 08:11 Dose: 81 mg Atorvastatin Calcium (Lipitor) 80 mg PO HS [facility] Stop: 12/31/17 21:01 Last Admin: 07/01/17 22:41 Dose: 80 mg Azithromycin (Zithromax) 500 mg PO DAILY [facility] Stop: 12/31/17 09:01 Last Admin: 07/01/17 12:13 Dose: 500 mg Budesonide/Formoterol Fumarate (Symbicort) 2 puff IH BIDR [facility] Stop: 12/31/17 22:01 Calcium Acetate (Phos-Lo) 667 mg PO TIDWM [facility] Stop: 12/30/17 17:01 Last Admin: 07/02/17 08:18 Dose: 667 mg Diltiazem HCl (Cardizem Cd) 120 mg PO DAILY [facility] Stop: 12/31/17 11:31 Last Admin: 07/01/17 12:13 Dose: 120 mg Guaifenesin (Mucinex Dm) 1 each PO BID [facility] Stop: 12/31/17 09:01 Last Admin: 07/02/17 08:17 Dose: 1 each Ceftriaxone Sodium 1,000 mg/ (Dextrose) 100 mls @ 200 mls/hr IVPB Q24H [facility] Stop: 12/31/17 09:01 Last Admin: 07/01/17 12:14 Dose: 200 mls/hr Sodium Chloride (0.9 % Sodium Chloride) 250 mls @ 937.5 mls/hr IVC .Q16M PRN PRN Reason: Hypotension Stop: 01/01/18 08:41 Ipratropium [place] (Atrovent Neb) 0.5 mg IH [id number] [facility] Stop: 12/31/17 08:46 Last Admin: 07/02/17 07:30 Dose: 0.5 mg Lactobacillus Acidophilus/Rhamnosus (Culturelle) 1 each PO BID [facility] Stop: 12/30/17 21:01 Last Admin: 07/02/17 08:17 Dose: 1 each Levothyroxine Sodium (Synthroid) 350 mcg PO 0630 [facility] Stop: 12/31/17 06:31 Last Admin: 07/02/17 08:17 Dose: 350 mcg Lidocaine HCl (Lidoderm 5% Patch) 1 each TP DAILY [facility] Stop: 12/31/17 09:01 Last Admin: 07/02/17 08:22 Dose: 1 each Lidocaine/Prilocaine (Emla) 1 gm TP AD PRN PRN Reason: PAIN RELIEF Stop: 12/30/17 14:11 Methylprednisolone (Solu-Medrol) 40 mg IVP Q8HR [facility] Stop: 12/31/17 16:01 Last Admin: 07/02/17 08:18 Dose: 40 mg Metoclopramide HCl (Reglan) 5 mg PO Q6H PRN PRN Reason: Nausea And Vomiting Stop: 01/01/18 08:55 Naloxone HCl (Narcan) 0.4 mg IVP Q2MIN PRN PRN Reason: Opioid Reversal Stop: 12/30/17 12:20 Nicotine (Nicoderm) 21 mg TD DAILY [facility] PRN Reason: Protocol Stop: 12/31/17 09:01 Last Admin: 07/02/17 08:22 Dose: 21 mg Omeprazole (Prilosec) 20 mg PO DAILY@0630 [facility] PRN Reason: Protocol Stop: 01/01/18 06:31 Last Admin: 07/02/17 08:17 Dose: 20 mg Ondansetron HCl (Zofran) 4 mg IVP Q8HR PRN; Protocol PRN Reason: Nausea And Vomiting Stop: 12/30/17 14:56 Last Admin: 07/02/17 09:37 Dose: 4 mg Vitamin B Complex/Vit C/Folic Acid (Renal Caps Softgel) 1 mg PO DAILY [facility] Stop: 12/31/17 09:01 Last Admin: 07/02/17 08:17 Dose: 1 mg Vitamin D (Vitamin D) 1,000 unit PO DAILY [facility] Stop: 12/31/17 09:01 Last Admin: 07/02/17 08:17 Dose: 1,000 unit Laboratory Tests 06/30/17 06/30/17 06/30/17 08:20 08:20 14:09 Hgb 10.0 L Plt Count 118 L Creatinine Troponin I 0.04 H* Stool Occult Blood 06/30/17 06/30/17 07/01/17 14:09 16:10 06:20 Hgb Plt Count Creatinine Troponin I 0.02 0.05 H* 0.12 H* Stool Occult Blood 07/02/17 07/02/17 07/02/17 00:01 05:00 05:00 Hgb 8.2 L Plt Count 87 L Creatinine 7.83 H Troponin I Stool Occult Blood Positive A - Imaging and Cardiology Chest Xray: report reviewed Echo: report reviewed - EKG Interpretation EKG results cardiology: other (Telemetry reviewed with average HR 77, sinus rhythm. PACs noted.) Consult Discharge Plan - Plan Referrals: Na Johansen, PULP MACHINE OPERATOR [Primary Care Provider] -
[2017-07-02] MEDS ORDERED: 0.9 % Sodium Chloride 2,000 ML ONE (11:56)
--- NOTE | 2017-07-02 14:56 | Internal Med Progress Note ---
Date of Encounter: 07/02/17 Time of Encounter: 14:53 - Assessment and plan (1) COPD (chronic obstructive pulmonary disease) Current Visit: Yes Status: Chronic Assessment and plan: Patient has acute exacerbation of COPD precipitated by her atypical pneumonia. Continue intravenous steroids and antibiotics. Breathing treatments [id number]. Cough suppressant as the patient has dry cough that is not productive. Patient is high risk due to COPD exacerbation and acute respiratory failure and risk of worsening respiratory failure which may require intubation and mechanical ventilation. She also has genitourinary and gastrointestinal bleeding which needs further evaluation. She is at risk of worsening anemia. Qualifiers: COPD type: COPD with acute exacerbation Qualified Code(s): J44.1 - Chronic obstructive pulmonary disease with (acute) exacerbation (2) Pneumonia Current Visit: Yes Status: Acute Assessment and plan: Atypical pneumonia in bilateral lower lobes. Continue current antibiotic therapy. Qualifiers: Pneumonia type: due to unspecified organism Laterality: bilateral Lung location: lower lobe of lung Qualified Code(s): J18.9 - Pneumonia, unspecified organism (3) Atrial fibrillation Current Visit: Yes Status: Chronic Assessment and plan: Cardiology on board. Rate controlled. Discontinue heparin drip due to blood in the urostomy bag and fecal blood test positive. Qualifiers: Atrial fibrillation type: persistent Qualified Code(s): I48.1 - Persistent atrial fibrillation (4) ESRD (end stage renal disease) Current Visit: Yes Status: Chronic Assessment and plan: Nephrology on board. Dialysis per nephrology. (5) Presence of urostomy Current Visit: Yes Status: Chronic Assessment and plan: Urology consulted for blood in the urostomy bag. Case discussed with urology. (6) Tobacco abuse Current Visit: Yes Status: Chronic Assessment and plan: Counseled extensively regarding the need for cessation. - Subjective Interval history: Patient is complaining of 7/10 pain in the middle of her back in the lower back that has been going on since this morning. She is currently at hemodialysis and was seen during her dialysis session. She also reports seeing blood in her urostomy bag. She states that this occurs intermittently and usually resolves by itself. However, she states that the current episode has been ongoing since this morning without spontaneous resolution yet. - Constitutional Vitals: Temp Pulse Resp BP Pulse Ox 97.8 F 70 18 115/64 92 07/02/17 11:30 07/02/17 07:06 07/02/17 11:30 07/02/17 14:30 07/02/17 07:31 Exam: Gen.: Lying in bed. Moderate distress. Chest: Bilateral diffuse wheezing present. Not using accessory muscles of respiration CVS: First and second heart sounds present. No murmurs, rubs or gallops. Abdomen: Soft, nontender, nondistended. Bowel sounds present. No hepatosplenomegaly. Musculoskeletal: Tenderness to palpation over the midline in the lower back. No costovertebral angle tenderness. Internal Medicine: Result - Labs CBC & Chem 7: 07/02/17 05:00 07/02/17 05:00 Labs: Short CBC 07/01/17 07/02/17 Range/Units 14:51 05:00 WBC 5.0 3.0 L (4.3-11.1) K/mcL Hgb 8.7 L 8.2 L (11.5-15.4) g/dL Hct 27.2 L 26.2 L (35.3-44.9) % Plt Count 113 L 87 L (140-400) K/mcL Neutrophils # 2.6 (1.6-8.9) K/mcL BMP 07/02/17 05:00 Sodium 137 Potassium 4.8 H D Chloride 99 Carbon Dioxide 22 BUN 48 H D Creatinine 7.83 H Glucose 188 H Calcium 7.2 L - ABG Interpretation ABG results: PT/INR, D-dimer PT 14.0 Seconds (9.4-12.1) H 07/02/17 05:00 Consult Discharge Plan - Plan Referrals: Na Johansen, NOTCH MACHINE OPERATOR [Primary Care Provider] -
[2017-07-02] MEDS: Azithromycin 250 MG TABLET PO SCH (15:48)
[2017-07-02] MEDS: Aspirin Enteric Coated 81 MG Tablet PO SCH (15:48)
[2017-07-02] MEDS: Diltiazem CD (24hr) 120 MG CAPSULE PO SCH (15:49)
--- NOTE | 2017-07-02 22:27 | Nephrology Progress Note ---
Date of Encounter: 07/02/17 Time of Encounter: 14:05 - Assessment and Plan (1) ESRD (end stage renal disease) Current Visit: Yes Status: Chronic HD MwF Renal dose medications. Yinkan seen on dialysis today. r (2) Atrial fibrillation with rapid ventricular response Current Visit: Yes Status: Acute Rate improved. Per primary team and cardiology. (3) Atypical pneumonia Current Visit: Yes Status: Acute on antibiotics. (4) Metabolic acidosis Current Visit: Yes Status: Chronic (5) Hypothyroid Current Visit: Yes Status: Acute continue home medications. Qualifiers: Qualified Code(s): E03.9 - Hypothyroidism, unspecified Subjective Principal diagnosis: atypical pneumonia, ESRD on dialysis Interval history: Patient seen on dialysis. She has mild back pain. She has blood in her urostomy bag. ROS otherwise stable or negative. Objective - Vital Signs Vital signs: Vital Signs Temp Pulse Resp BP Pulse Ox 07/02/17 21:04 99.0 F 80 17 121/66 96 07/02/17 19:48 18 94 07/02/17 15:31 97.8 F 102 14 112/68 97 07/02/17 15:30 97.2 F L 18 101/71 07/02/17 15:00 125/80 07/02/17 14:45 111/57 07/02/17 14:30 115/64 07/02/17 14:15 120/58 07/02/17 14:00 114/73 07/02/17 13:45 120/61 07/02/17 13:30 118/69 07/02/17 13:15 113/59 07/02/17 13:00 101/66 07/02/17 12:45 135/80 07/02/17 12:30 133/85 07/02/17 12:15 141/66 07/02/17 12:00 114/74 07/02/17 11:45 119/80 07/02/17 11:30 97.8 F 18 115/71 07/02/17 07:31 14 92 07/02/17 07:06 98.0 F 70 14 131/65 90 07/02/17 04:51 98.4 F 73 15 122/61 97 07/02/17 02:13 18 98 07/01/17 23:12 18 99 Intake and Output 07/02/17 07/02/1707/02/17 07:59 15:59 23:59 Intake Total 311 / 311 1580 / 1580 120 / 120 Output Total 3600 / 3600 Balance 311 / 311 -2020 / -2020 120 / 120 Intake: IV Fluids 311 / 311 100 / 100 Heparin 25,000 UNIT/500 311 / 311 ML D5W 25,000 unit In 500 ml @ 12 UNIT/KG/HR 13. 825 mls/hr IVC .Q24H [facility] Rx#:[id number] Rocephin 1,000 MG In 100 / 100 Dextrose 5% (Minibag+) 100 ML 100 ML @ 200 mls/ hr IVPB Q24H [facility] Rx#: [id number] Oral 880 / 880 120 / 120 Intake, Rinseback and 600 / 600 Flushes Output: Urine 0 / 0 Total Dialysis (HD) 3600 / 3600 Output Other: Meal Lunch Dinner Percent of Meal Consumed 85% 80% Weight 62.142 kg Hemodialysis Net Fluid 3000 Removed (mL) Patient Weight 07/02/17 23:59 Weight 62.142 kg - General Appearance General appearance: Present: well-developed, well-nourished EENT: Present: ATNC Neck: Present: supple Respiratory: Present: course breath sounds Cardiology: Present: regular rate Neurologic: Present: alert and oriented x3 Musculoskeletal: Present: no cyanosis Psychiatric: Present: mood/affect appropriate - Lab 07/02/17 05:00 07/02/17 05:00 Most recent lab results Calcium 7.2 mg/dL (8.6-10.8) L 07/02/17 05:00 Phosphorus 14.9 mg/dL (2.3-4.7) H 06/30/17 14:09 Magnesium 2.3 mg/dL (1.6-2.6) 07/01/17 05:30 Consult Discharge Plan - Plan Referrals: Na Johansen, ELECTRONIC HEALTH RECORDS SPECIALIST [Primary Care Provider] -
[2017-07-02] MEDS: Budesonide/Formoterol 80/4.5 MDI IH SCH (23:25)
[2017-07-03] MEDS: MethylPREDNISolone 40 MG/ML VIAL IVP SCH ×4 (00:33→20:24)
[2017-07-03] MEDS: Melatonin 3 MG TABLET PO PRN ×2 (00:33→19:58)
[2017-07-03] MEDS: Ipratropium Neb 0.5 MG NEBULIZER IH SCH ×5 (03:40→20:02)
[2017-07-03 04:58] LABS: Hemoglobin 7.8 g/dL (11.5-15.4); Immature Granulocytes % 0.8 % (0-4); Immature Platelets 6.8 % (1.1-6.1); Lymphocytes # 0.3 K/mcL (0.6-4.6); Lymphocytes % 6.7 %; Mean Corpuscular HGB Conc 31.2 g/dL (31.6-35.5); Mean Corpuscular Hemoglobin 30.2 pg (28.0-33.3); Mean Corpuscular Volume 96.9 fL (83.0-100.0); Mean Platelet Volume 11.7 fL (9.4-12.4); Monocytes # 0.1 K/mcL (0.0-1.3); Monocytes % 1.4 %; Neutrophils # 4.5 K/mcL (1.6-8.9); Red Blood Count 2.58 M/mcL (3.82-4.97); Red Cell Distribution Width 15.2 % (11.5-14.5); Segmented Neutrophils % 91.1 %
[2017-07-03 05:05] LABS: INR 1.8; Prothrombin Time 19.1 Seconds (9.4-12.1)
[2017-07-03 05:11] LABS: Platelet Count 90 K/mcL (140-400)
[2017-07-03] MEDS: Ondansetron 4 MG/2 ML VIAL IVP PRN ×2 (05:33→14:25)
[2017-07-03] MEDS: *HR* HYDROcodone/Acet 5/325 mg TABLET PO PRN ×3 (05:34→19:55)
[2017-07-03 05:44] LABS: Calcium 7.5 mg/dL (8.6-10.8); Potassium 5.5 mEq/L (3.5-4.5)
[2017-07-03] MEDS: Albuterol 2.5 MG/3 ML NEBULIZER IH PRN ×2 (07:50→15:34)
[2017-07-03] MEDS: Budesonide/Formoterol 80/4.5 MDI IH SCH ×2 (07:50→20:02)
--- NOTE | 2017-07-03 08:30 | Gastroenterology Consult Note ---
<Valerie Guerra - Last Filed: 07/03/17 11:23> Date of Encounter: 07/03/17 Time of Encounter: 10:35 - Assessment and plan (1) Anemia in chronic kidney disease Current Visit: Yes Status: Chronic Assessment and plan: Acute on chronic. R/O GIB. + hemocult. Currently hgb 7.8, patient baseline 11- 12. Qualifiers: Chronic kidney disease stage: on chronic dialysis Qualified Code(s): N18.6 - End stage renal disease; D63.1 - Anemia in chronic kidney disease; Z99.2 - Dependence on renal dialysis (2) Presence of urostomy Current Visit: Yes Status: Chronic (3) ESRD (end stage renal disease) on dialysis Current Visit: No Status: Chronic (4) Bicytopenia Current Visit: Yes Status: Chronic Assessment and plan: Unclear etiology. Recent CT scan negative for liver disease, will f/u with US liver to r/o cirrhosis. PLTS stable in the 90s. (5) History of creation of ostomy Current Visit: Yes Status: Chronic Assessment and plan: Output is normal per patient, no evidence of blood or black stools. - Time Spent With Patient Total time spent is greater than 50% in coordination of care (as documented) at patient's floor/unit and/or counseling patient: less than 15 minutes GI History of Present Illness - Data of Consult Patient: known to practice within the last 3 years Consult date: 07/03/17 Requesting Physician: Mejia Brooks MD - Consult Narrative Reason for consult: anemia, + hemocult History of present illness: Ms. Parra is a 71 year old female with PMH of HTN, hypothyroidism, reflex sympathetic dystrophy, GERD, COPD, multiple abdomen surgeries with colostomy and urostomy following sympathectomy, ESRD on dialysis. She presented to ED yesterday with complain of CP, associated N/V, SOB with exertion and a sharp shooting pain radiating across her left chest to her back when she takes deep breaths or to light palpation of her anterior chest wall. She denies her having chest pain or a feeling like this in the past. She denies any history of cardiac disease, stents, [place], heart failure. She does not notice any improvement with positional change. She is concerned about this chest pain as her father and all her brothers had fatal heart attacks around the age of 40. She denies any recent changes to medications or change in diet. She says that she quit smoking 3 days ago. Cardio and nephrology were consulted. She was last seen in GI clinic 05/01/[address] Albert for diagnosis of dumping syndrome and started on dicyclomine. Per patient, bentyl was not effective for her frequent stools. She is unsure how much of her colon remains or when her last Cscope may have been. Stools appeared brown in color, loose but not watery in her ostomy bag, which is her norm. She admits continual abdominal pain for years. Denies upper GI symptoms. She indicates her urostomy bag is draining dark to bright red blood, urology has seen the patient. Colonoscopy: Unk when last Cscope was Past Med Surg Social Fam HX - Past Medical History Medical history: asthma, COPD, GERD, hypertension, renal disease, thyroid disease Psychiatric history: no psych history - Past Surgical History Surgical History: appendectomy, cholecystectomy, colostomy, hysterectomy, other - Social History Smoking Status: Current every day smoker Smokeless Tobacco Status: No Alcohol use: none Drug use: none - Family History Mother Adopted: No Living Status: Hx Family Cardiac Disorders: Yes Hx Family Respiratory Disorders: No Hx Family Cancer: No Hx Family GI Disorders: No Hx Family Endocrine Disorder: No Hx Family Neuromuscular Disorders: No Hx Family Neurologic Disorders: No Hx Family HEENT Disorders: No Hx Family Autoimmune Disorders: No Father Adopted: No Living Status: Hx Family Cardiac Disorders: Yes Hx Family Respiratory Disorders: No Hx Family Cancer: No Hx Family GI Disorders: No Hx Family Endocrine Disorder: No Hx Family Neuromuscular Disorders: No Hx Family Neurologic Disorders: No Hx Family HEENT Disorders: No Hx Family Autoimmune Disorders: No Brother Living Status: Still Living Hx Family Cardiac Disorders: Yes ([place]) Hx Family Respiratory Disorders: No Hx Family Endocrine Disorder: Yes Hx Family Medical Disorders: Yes - Gastrointestinal NSAID use: None noted Anticoagulation Use: On hep gtt/coumadin during this admission only Number of BM Per Day: daily, empties ostomy when full Gastrointestinal: Present: abdominal pain - Constitutional Constitutional: as per HPI - EENT Eyes: as per HPI Ears: Present: as per HPI Nose, mouth and throat: Present: as per HPI - Cardiovascular Cardiovascular ROS: Present: irregular heart rhythm - Respiratory Respiratory IM: Present: dyspnea - Genitourinary Genitourinary: Present: change in color - Neurological ROS Neurological GI: Present: as per HPI - Hematologic/Lymphatic Hematologic/Lymphatic pediatric: Present: as per HPI - Musculoskeletal Musculoskeletal ROS GI: Present: as per HPI - Integumentary Integumentary GI: Present: as per HPI - Psychiatric ROS Psychiatric GI: Present: as per HPI - Endocrine Endocrine IM: Present: as per HPI - Constitutional Vitals: Temp Pulse Resp BP Pulse Ox 97.7 F 79 16 149/71 97 07/03/17 06:26 07/03/17 06:26 07/03/17 07:51 07/03/17 06:26 07/03/17 07:51 General appearance: Present: cooperative, A&O X 3, no acute distress, answers questions appropriately - Head Head exam: Present: atraumatic, normocephalic - Eye Eye exam: Present: normal appearance, sclera anicteric - ENT ENT exam: Present: mucous membranes moist - Neck Neck exam general surgery: Present: normal inspection, trachea midline - Respiratory Respiratory exam: Present: rhonchi - Cardiovascular Cardiovascular exam: Present: RRR, +S1, +S2 - GI/Abdominal GI/Abdominal exam: Present: soft, tenderness Additional comments: ostomy bag in L mid abd, urostomy bag in R mid abd with bloody output - Rectal Rectal exam: Present: deferred - Extremities Exam Extremities exam: Present: warm - Neurological Exam Neurological exam: Present: no focal deficits - Psychiatric Psychiatric exam: Present: normal affect, normal mood - Skin Skin exam: Present: dry, intact, normal color, warm Results - Labs CBC & Chem 7: 07/03/17 04:40 07/03/17 04:40 Labs: Last Result Calcium 7.5 mg/dL (8.6-10.8) L 07/03/17 04:40 Troponin I 0.12 ng/mL (0-0.03) H* 07/01/17 06:20 Triglycerides 49 mg/dL (< 150) 07/01/17 05:30 Stool Occult Blood Positive (Negative) A 07/02/17 00:01 Entire Visit Hgb 7.8 g/dL (11.5-15.4) L 07/03/17 04:40 Hct 25.0 % (35.3-44.9) L 07/03/17 04:40 PT 19.1 Seconds (9.4-12.1) H 07/03/17 04:40 - ABG ABG results: PT/INR, D-dimer PT 19.1 Seconds (9.4-12.1) H 07/03/17 04:40 - Impressions Impressions Abdomen/Pelvis CT 07/02/17 15:56 IMPRESSION: Noncontrast study showing findings similar the prior study. No definite acute intra-abdominal inflammatory process or fluid collection is identified. Interval increased bilateral pleural effusions, greater on the left, with increased dependent lower lobe consolidation. Extensive inflammatory centrilobular nodules within the visualize right lung compatible with small airways disease, infectious bronchiolitis, not changed. D/ / Dianne Araujo Cha, MD / Dianne Araujo Cha, MD Interpreting Provider: Dianne Araujo Cha, MD Consult Discharge Plan - Plan Referrals: Na Johansen FAMILY INDEPENDENCE CASE MANAGER [Primary Care Provider] - 07/09/17 11:00 am <Earl Albert - Last Filed: 07/03/17 18:50> Date of Encounter: 07/03/17 Time of Encounter: 18:00 - Time Spent With Patient Total time spent is greater than 50% in coordination of care (as documented) at patient's floor/unit and/or counseling patient: GI History of Present Illness - Data of Consult Requesting Physician: Mejia Brooks MD - Consult Narrative History of present illness: Ms. Parra is a 71 year old female - Constitutional Vitals: Temp Pulse Resp BP Pulse Ox 98.2 F 72 16 121/64 99 07/03/17 15:30 07/03/17 15:30 07/03/17 15:34 07/03/17 15:30 07/03/17 15:34 Results - Labs CBC & Chem 7: 07/03/17 04:40 07/03/17 04:40 Labs: Last Result Calcium 7.5 mg/dL (8.6-10.8) L 07/03/17 04:40 Troponin I 0.12 ng/mL (0-0.03) H* 07/01/17 06:20 Triglycerides 49 mg/dL (< 150) 07/01/17 05:30 Stool Occult Blood Positive (Negative) A 07/02/17 00:01 Entire Visit Hgb 7.8 g/dL (11.5-15.4) L 07/03/17 04:40 Hct 25.0 % (35.3-44.9) L 07/03/17 04:40 PT 19.1 Seconds (9.4-12.1) H 07/03/17 04:40 - ABG ABG results: PT/INR, D-dimer PT 19.1 Seconds (9.4-12.1) H 07/03/17 04:40 - Impressions Impressions Abdomen/Pelvis CT 07/02/17 15:56 IMPRESSION: Noncontrast study showing findings similar the prior study. No definite acute intra-abdominal inflammatory process or fluid collection is identified. Interval increased bilateral pleural effusions, greater on the left, with increased dependent lower lobe consolidation. Extensive inflammatory centrilobular nodules within the visualize right lung compatible with small airways disease, infectious bronchiolitis, not changed. D/ / Dianne Araujo Cha, MD / Dianne Araujo Cha, MD Interpreting Provider: Dianne Araujo Cha, MD Liver Ultrasound 07/03/17 17:00 IMPRESSION: Gallbladder is absent. Prominent common bile duct (1.2 cm) likely related to postcholecystectomy state. Renal findings suggestive of medical renal disease of the right kidney. No hydronephrosis. D/ / 07/03/2017 18:28:39 Adonay Burnett MD / david Interpreting Provider: Adonay Burnett MD - Attending Attestation I examined this patient and my medical decision-making was reviewed with the Resident Physician. I agree with the documented findings, disposition and treatment plan as described except to the extent set forth below. Gross hematuria due to the urinary tract infection. No overt GI bleeding. No need for endoscopy at this point
--- NOTE | 2017-07-03 09:14 | Urology - Consult Note ---
Date of Encounter: 07/03/17 Time of Encounter: 09:12 - Assessment and Plan (1) Gross hematuria Current Visit: Yes Status: Acute Assessment and plan: At this time would encourage as much fluids as the patient is allowed. Agree with treatment with Rocephin as a urinary tract infection/colonization can sometimes lead to blood in the conduit. Ultimately as an outpatient the patient will need cytology as well as FISH testing. We will continue to follow along. Urology CN:HPI Consult date: 07/03/17 Reason for consult Urology: Gross Hematuria Requesting physician: Mejia Brooks History of present illness: Vannessa is a 71-year-old female with a history of remote history of cystectomy with ileal conduit urinary diversion as well as colostomy. Patient recently admitted and started on anticoagulation when she started to develop blood in her colostomy as well as her ileal conduit. CT scan done last night did not reveal any obvious new findings. No hydronephrosis or distention of her ileal conduit. Past Med Surg Social Fam HX - Past Medical History Medical history: asthma, COPD, GERD, hypertension, renal disease, thyroid disease Psychiatric history: no psych history - Past Surgical History Surgical History: appendectomy, cholecystectomy, colostomy, hysterectomy, other - Social History Smoking Status: Current every day smoker Smokeless Tobacco Status: No Alcohol use: none Drug use: none - Family History Mother Adopted: No Living Status: Hx Family Cardiac Disorders: Yes Hx Family Respiratory Disorders: No Hx Family Cancer: No Hx Family GI Disorders: No Hx Family Endocrine Disorder: No Hx Family Neuromuscular Disorders: No Hx Family Neurologic Disorders: No Hx Family HEENT Disorders: No Hx Family Autoimmune Disorders: No Father Adopted: No Living Status: Hx Family Cardiac Disorders: Yes Hx Family Respiratory Disorders: No Hx Family Cancer: No Hx Family GI Disorders: No Hx Family Endocrine Disorder: No Hx Family Neuromuscular Disorders: No Hx Family Neurologic Disorders: No Hx Family HEENT Disorders: No Hx Family Autoimmune Disorders: No Brother Living Status: Still Living Hx Family Cardiac Disorders: Yes ([place]) Hx Family Respiratory Disorders: No Hx Family Endocrine Disorder: Yes Hx Family Medical Disorders: Yes Medications and Allergies Amitriptyline [Elavil] 50 mg PO HS 09/19/15 [History] Cholecalciferol (Vitamin D3) [Vitamin D3] 5,000 unit PO DAILY #0 11/17/15 [ History] Ranitidine HCl [Zantac] 150 mg PO HS 09/19/15 [History] Calcium Acetate [Phos-LO] 667 mg PO TIDWM 02/21/17 [History] Cyanocobalamin (B-12) [Vitamin B12] 1,000 mcg IM QMONTH 02/21/17 [History] Levothyroxine Sodium [Synthroid] 300 mcg PO DAILY 02/21/17 [History] Mometasone/Formoterol [Dulera 100 Mcg/5 Mcg Inhaler] 2 puff IH BID 02/21/17 [ History] Lactobacillus [Culturelle] 1 each PO BID #60 cap.sprink 03/10/17 [Rx] Albuterol Neb [Proventil Neb] 2.5 mg IH Q6H PRN 06/30/17 [History] Lidocaine/Prilocaine CREAM [Emla] 1 appl TP AD PRN 06/30/17 [History] Renal Vitamin [Renal Caps Softgel] 1 mg PO DAILY 06/30/17 [History] 3 Allergy/AdvReac Type Severity Reaction Status Date / Time codeine AdvReac Severe Vomiting Verified 03/06/17 15:22 naproxen [From Naprosyn] AdvReac Severe Vomiting Verified 03/06/17 15:22 Review of Systems - Constitutional no fever(s) - EENT Nose, mouth and throat: no dizziness - Cardiovascular chest pain - Respiratory no cough - Gastrointestinal no abdominal pain Exam Initial Vital Signs Temp Pulse Resp BP Pulse Ox 98.1 F 132 20 109/69 97 06/30/17 07:16 06/30/17 07:16 06/30/17 07:16 06/30/17 07:16 06/30/17 07:16 - General physical appearance Present: well developed - Eyes Present: PERRL - ENT Present: normal nares - Neck Present: no masses - Respiratory Present: normal respiratory effort - Abdomen Abdomen: Present: soft (Right-sided ileal conduit with gross blood in bag. There was some clear urine noted as well.) Urology Results - Labs 07/03/17 04:40 07/03/17 04:40 Abnormal lab results RBC 2.58 M/mcL (3.82-4.97) L 07/03/17 04:40 Hgb 7.8 g/dL (11.5-15.4) L 07/03/17 04:40 Hct 25.0 % (35.3-44.9) L 07/03/17 04:40 MCHC 31.2 g/dL (31.6-35.5) L 07/03/17 04:40 RDW 15.2 % (11.5-14.5) H 07/03/17 04:40 Plt Count 90 K/mcL (140-400) L 07/03/17 04:40 Lymphocytes # 0.3 K/mcL (0.6-4.6) L 07/03/17 04:40 Immature Plt Fraction 6.8 % (1.1-6.1) H 07/03/17 04:40 PT 19.1 Seconds (9.4-12.1) H 07/03/17 04:40 APTT 44.9 Seconds (26.0-36.0) H 07/02/17 05:00 Potassium 5.5 mEq/L (3.5-4.5) H 07/03/17 04:40 BUN 33 mg/dL (7-20) H D 07/03/17 04:40 Creatinine 5.10 mg/dL (0.57-1.11) H 07/03/17 04:40 Est GFR ( Amer) 10 (> 60) L 07/03/17 04:40 Est GFR (Non-Af Amer) 8 (> 60) L 07/03/17 04:40 Glucose 148 mg/dL (70-99) H 07/03/17 04:40 Calcium 7.5 mg/dL (8.6-10.8) L 07/03/17 04:40 Phosphorus 14.9 mg/dL (2.3-4.7) H 06/30/17 14:09 Troponin I 0.12 ng/mL (0-0.03) H* 07/01/17 06:20 B-Natriuretic Peptide 2581 pg/mL (0-100) H 06/30/17 08:20 HDL Cholesterol 38 mg/dL (40-59) L 07/01/17 05:30 TSH 9.437 mcIU/mL (0.350-4.840) H 06/30/17 14:09 Stool Occult Blood Positive (Negative) A 07/02/17 00:01 Diabetes panel 07/03/17 Range/Units 04:40 Sodium 136 (136-145) mEq/L Potassium 5.5 H (3.5-4.5) mEq/L Chloride 101 (98-109) mEq/L Carbon Dioxide 24 (19-29) mEq/L BUN 33 H D (7-20) mg/dL Creatinine 5.10 H (0.57-1.11) mg/dL Glucose 148 H (70-99) mg/dL Calcium 7.5 L (8.6-10.8) mg/dL Calcium panel 07/03/17 Range/Units 04:40 Calcium 7.5 L (8.6-10.8) mg/dL Pituitary panel 07/03/17 Range/Units 04:40 Sodium 136 (136-145) mEq/L Potassium 5.5 H (3.5-4.5) mEq/L Chloride 101 (98-109) mEq/L Carbon Dioxide 24 (19-29) mEq/L BUN 33 H D (7-20) mg/dL Creatinine 5.10 H (0.57-1.11) mg/dL Glucose 148 H (70-99) mg/dL Calcium 7.5 L (8.6-10.8) mg/dL Adrenal panel 07/03/17 Range/Units 04:40 Sodium 136 (136-145) mEq/L Potassium 5.5 H (3.5-4.5) mEq/L Chloride 101 (98-109) mEq/L Carbon Dioxide 24 (19-29) mEq/L BUN 33 H D (7-20) mg/dL Creatinine 5.10 H (0.57-1.11) mg/dL Glucose 148 H (70-99) mg/dL Calcium 7.5 L (8.6-10.8) mg/dL All other labs normal. - Imaging CT scan - abdomen: image reviewed CT scan - pelvis: image reviewed Consult Discharge Plan - Plan Referrals: Na Johasnen, TYLER [Primary Care Provider] -
[2017-07-03] MEDS: Renal Vitamin 1 MG CAPSULE PO SCH (09:22)
[2017-07-03] MEDS: GuaiFENesin/Dextromethorphan TABLET PO SCH ×2 (09:22→19:55)
[2017-07-03] MEDS: Azithromycin 250 MG TABLET PO SCH (09:22)
[2017-07-03] MEDS: Diltiazem CD (24hr) 120 MG CAPSULE PO SCH (09:22)
[2017-07-03] MEDS: Aspirin Enteric Coated 81 MG Tablet PO SCH (09:23)
[2017-07-03] MEDS: Nicotine 21 MG PATCH.TD24 TD SCH (09:23)
[2017-07-03] MEDS: Calcium Acetate 667 MG CAPSULE PO SCH ×3 (09:23→17:58)
[2017-07-03] MEDS: Cholecalciferol (D-3) 1,000 UNIT TABLET PO SCH (09:23)
[2017-07-03] MEDS: Lactobacillus 1 EACH CAP.SPRINK PO SCH ×2 (09:23→19:55)
--- NOTE | 2017-07-03 11:17 | Nephrology Progress Note ---
Date of Encounter: 07/03/17 Time of Encounter: 11:15 - Assessment and Plan (1) ESRD (end stage renal disease) Current Visit: Yes Status: Chronic Plan for dialysis tomorrow Continue renal diet Avoid nephrotoxins if possible. (2) Atrial fibrillation with rapid ventricular response Current Visit: Yes Status: Acute Rate stable per primary team (3) Anemia in chronic kidney disease Current Visit: Yes Status: Chronic Hgb 7.8 Goal hgb 10-11 Transfuse per parameters Qualifiers: Chronic kidney disease stage: on chronic dialysis Qualified Code(s): N18.6 - End stage renal disease; D63.1 - Anemia in chronic kidney disease; Z99.2 - Dependence on renal dialysis (4) Chest pain Current Visit: Yes Status: Acute per cardiology team Qualifiers: Chest pain type: chest pain on breathing Qualified Code(s): R07.1 - Chest pain on breathing; R07.81 - Pleurodynia Subjective Principal diagnosis: atypical pneumonia, ESRD on dialysis Interval history: Patient seen and examined. States she is not feeling well. Objective - Vital Signs Vital signs: Vital Signs Temp Pulse Resp BP Pulse Ox 07/03/17 09:00 97 07/03/17 07:51 16 97 07/03/17 06:26 97.7 F 79 15 149/71 95 07/03/17 04:49 97.7 F 80 20 135/67 94 07/03/17 03:41 16 92 07/02/17 23:52 98.2 F 67 17 104/55 96 07/02/17 23:27 18 96 07/02/17 21:04 99.0 F 80 17 121/66 96 07/02/17 19:48 18 94 07/02/17 15:31 97.8 F 102 14 112/68 97 07/02/17 15:30 97.2 F L 18 101/71 07/02/17 15:00 125/80 07/02/17 14:45 111/57 07/02/17 14:30 115/64 07/02/17 14:15 120/58 07/02/17 14:00 114/73 07/02/17 13:45 120/61 07/02/17 13:30 118/69 07/02/17 13:15 113/59 07/02/17 13:00 101/66 07/02/17 12:45 135/80 07/02/17 12:30 133/85 07/02/17 12:15 141/66 07/02/17 12:00 114/74 07/02/17 11:45 119/80 07/02/17 11:30 97.8 F 18 115/71 Intake and Output 07/02/17 07/03/17 07/03/17 23:59 07:59 15:59 Intake Total 220 / 220 200 / 200 240 / 240 Output Total 0 / 0 Balance 220 / 220 200 / 200 240 / 240 Intake: IV Fluids 100 / 100 Rocephin 1,000 MG In 100 / 100 Dextrose 5% (Minibag+) 100 ML 100 ML @ 200 mls/ hr IVPB Q24H [facility] Rx#: [id number] Oral 120 / 120 200 / 200 240 / 240 Output: Urine 0 / 0 Other: Meal Dinner Breakfast Percent of Meal Consumed 80% 100% Weight 62.142 kg 62 kg 62 kg Patient Weight 07/03/17 23:59 Weight 62 kg - General Appearance General appearance: Present: moderate distress, chronically ill, frail EENT: Present: ATNC, mucous membranes moist, hearing intact, vision intact Neck: Present: supple Respiratory: Present: clear Cardiology: Present: no edema, normal S1, normal S2 Dialysis Vascular Access: Arteriovenous Fistula Gastrointestinal: Present: no guarding Integumentary: Present: warm and dry Neurologic: Present: alert and oriented x3 Psychiatric: Present: cooperative - Lab 07/03/17 04:40 07/03/17 04:40 Most recent lab results Calcium 7.5 mg/dL (8.6-10.8) L 07/03/17 04:40 Phosphorus 14.9 mg/dL (2.3-4.7) H 06/30/17 14:09 Magnesium 2.3 mg/dL (1.6-2.6) 07/01/17 05:30 Consult Discharge Plan - Plan Referrals: Na Johansen, RISK CONSULTING TREASURY DIRECTOR [Primary Care Provider] - 07/09/17 11:00 am
--- NOTE | 2017-07-03 16:43 | Internal Med Progress Note ---
Date of Encounter: 07/03/17 Time of Encounter: 16:37 - Assessment and plan (1) COPD (chronic obstructive pulmonary disease) Current Visit: Yes Status: Chronic Assessment and plan: Continue intravenous steroids and antibiotics. Breathing treatments [id number]. Cough suppressant. Patient is high risk due to COPD exacerbation and acute respiratory failure and risk of worsening respiratory failure which may require intubation and mechanical ventilation. She also has genitourinary and gastrointestinal bleeding which needs further evaluation. She is at risk of worsening anemia. Qualifiers: COPD type: COPD with acute exacerbation Qualified Code(s): J44.1 - Chronic obstructive pulmonary disease with (acute) exacerbation (2) Pneumonia Current Visit: Yes Status: Acute Assessment and plan: Atypical pneumonia in bilateral lower lobes. Continue current antibiotic therapy. Patient is currently improving. We will consider escalating antibiotic therapy if the patient does not have adequate response. Qualifiers: Pneumonia type: due to unspecified organism Laterality: bilateral Lung location: lower lobe of lung Qualified Code(s): J18.9 - Pneumonia, unspecified organism (3) Atrial fibrillation Current Visit: Yes Status: Chronic Assessment and plan: Cardiology on board. Rate controlled. Continue to hold anticoagulation due to blood loss by the urostomy bag. Qualifiers: Atrial fibrillation type: persistent Qualified Code(s): I48.1 - Persistent atrial fibrillation (4) ESRD (end stage renal disease) Current Visit: Yes Status: Chronic Assessment and plan: Nephrology on board. Dialysis per nephrology. (5) Presence of urostomy Current Visit: Yes Status: Chronic Assessment and plan: Urology on board. Appreciate input and assistance. (6) Tobacco abuse Current Visit: Yes Status: Chronic Assessment and plan: Counseled extensively regarding the need for cessation. 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 She also had shortness of breath. She was found to have atrial fibrillation with rapid ventricular response. She was placed on Cardizem drip. She was also placed on heparin drip for anticoagulation with plans to transition to Coumadin due to her atrial fibrillation. Cardiology was consulted. A CT scan of the chest was obtained to evaluate for pulmonary embolus. It did not reveal pulmonary embolus. However, it revealed bilateral groundglass nodules concerning for atypical pneumonia. Patient was placed on antibiotic therapy. She was also given intravenous steroids for COPD exacerbation. The patient has been getting dialysis by nephrology 3 times a week. Cardiology evaluated the patient for atrial fibrillation with RVR and elevated troponin. The elevated troponins were felt to be due to demand ischemia. Rate control was achieved with transitioning the patient to by mouth medications. Anticoagulation was recommended by cardiology. However, the patient developed blood in her colostomy and urostomy bags with heparin. Hence, heparin had to be discontinued and Coumadin and also is being held. Gastroenterology and urology have been consulted for the same. The patient continues to receive antibiotics, steroids and breathing treatments for her COPD exacerbation and pneumonia. Today, the patient states that her breathing is getting better. She continues to report wheezing. She also reports dry cough without any sputum production. - Constitutional Vitals: Temp Pulse Resp BP Pulse Ox 98.2 F 72 16 121/64 99 07/03/17 15:30 07/03/17 15:30 07/03/17 15:34 07/03/17 15:30 07/03/17 15:34 Exam: Gen.: Lying in bed. No acute distress. Chest: Expiratory wheezing present bilaterally. Not using accessory muscles of respiration. CVS: First and second heart sounds present. No murmurs, rubs or gallops. Abdomen: Soft, nontender, nondistended. Bowel sounds present. Urostomy bag filled with blood. Colostomy bag is empty. Internal Medicine: Result - Labs CBC & Chem 7: 07/03/17 04:40 07/03/17 04:40 Labs: Short CBC 07/03/17 Range/Units 04:40 WBC 4.9 D (4.3-11.1) K/mcL Hgb 7.8 L (11.5-15.4) g/dL Hct 25.0 L (35.3-44.9) % Plt Count 90 L (140-400) K/mcL Neutrophils # 4.5 (1.6-8.9) K/mcL BMP 07/03/17 04:40 Sodium 136 Potassium 5.5 H Chloride 101 Carbon Dioxide 24 BUN 33 H D Creatinine 5.10 H Glucose 148 H Calcium 7.5 L - ABG Interpretation ABG results: PT/INR, D-dimer PT 19.1 Seconds (9.4-12.1) H 07/03/17 04:40 - Impressions Impressions Abdomen/Pelvis CT 07/02/17 15:56 IMPRESSION: Noncontrast study showing findings similar the prior study. No definite acute intra-abdominal inflammatory process or fluid collection is identified. Interval increased bilateral pleural effusions, greater on the left, with increased dependent lower lobe consolidation. Extensive inflammatory centrilobular nodules within the visualize right lung compatible with small airways disease, infectious bronchiolitis, not changed. D/ / Dianne Araujo Cha, MD / Dianne Araujo Cha, MD Interpreting Provider: Dianne Araujo Cha, MD Consult Discharge Plan - Plan Referrals: Na Johansen CNP [Primary Care Provider] - 07/09/17 11:00 am
[2017-07-04] MEDS: Ipratropium Neb 0.5 MG NEBULIZER IH SCH ×4 (00:40→11:22)
[2017-07-04] MEDS: *HR* HYDROcodone/Acet 5/325 mg TABLET PO PRN ×4 (00:49→19:09)
[2017-07-04] MEDS: Ondansetron 4 MG/2 ML VIAL IVP PRN ×3 (00:49→19:10)
[2017-07-04 04:12] LABS: Hematocrit 25.2 % (35.3-44.9); Hemoglobin 7.8 g/dL (11.5-15.4); Immature Granulocytes % 0.7 % (0-4); Lymphocytes # 0.5 K/mcL (0.6-4.6); Mean Corpuscular Hemoglobin 30.2 pg (28.0-33.3); Mean Corpuscular Volume 97.7 fL (83.0-100.0); Mean Platelet Volume 11.8 fL (9.4-12.4); Monocytes # 0.1 K/mcL (0.0-1.3); Monocytes % 2.1 %; Neutrophils # 5.2 K/mcL (1.6-8.9); Red Blood Count 2.58 M/mcL (3.82-4.97); Segmented Neutrophils % 89.2 %
[2017-07-04 04:13] LABS: Platelet Count 98 K/mcL (140-400)
[2017-07-04 04:25] LABS: Calcium 7.4 mg/dL (8.6-10.8)
[2017-07-04 04:28] LABS: INR 1.5; Prothrombin Time 16.6 Seconds (9.4-12.1)
[2017-07-04 04:32] LABS: Potassium 6.1 mEq/L (3.5-4.5)
[2017-07-04] MEDS: MethylPREDNISolone 40 MG/ML VIAL IVP SCH ×2 (05:10→13:53)
[2017-07-04] MEDS ORDERED: 0.9 % Sodium Chloride 250 ML IVC PRN (07:27)
[2017-07-04] MEDS: GuaiFENesin/Dextromethorphan TABLET PO SCH ×2 (07:52→20:31)
[2017-07-04] MEDS: Calcium Acetate 667 MG CAPSULE PO SCH ×3 (07:52→15:46)
[2017-07-04] MEDS: Renal Vitamin 1 MG CAPSULE PO SCH (07:52)
[2017-07-04] MEDS: Cholecalciferol (D-3) 1,000 UNIT TABLET PO SCH (07:52)
[2017-07-04] MEDS: Lactobacillus 1 EACH CAP.SPRINK PO SCH ×2 (07:52→20:31)
[2017-07-04] MEDS: Nicotine 21 MG PATCH.TD24 TD SCH (07:52)
[2017-07-04] MEDS: Diltiazem CD (24hr) 120 MG CAPSULE PO SCH (07:57)
[2017-07-04] MEDS: Budesonide/Formoterol 80/4.5 MDI IH SCH ×2 (08:15→22:32)
[2017-07-04] MEDS: Albuterol 2.5 MG/3 ML NEBULIZER IH PRN (08:15)
--- NOTE | 2017-07-04 08:33 | Urology Progress Note ---
Date of Encounter: 07/04/17 Time of Encounter: 08:32 - Assessment and Plan (1) Gross hematuria Current Visit: Yes Status: Acute Assessment and plan: seems to be improving. Progress Note Narrative: patient seen. now with back pain. Objective Initial Vital Signs Temp Pulse Resp BP Pulse Ox 98.1 F 132 20 109/69 97 06/30/17 07:16 06/30/17 07:16 06/30/17 07:16 06/30/17 07:16 06/30/17 07:16 - General physical appearance Present: well developed - Abdomen Present: soft (right sided ileal conduit still with a little blood in bag, but improving) - Labs 07/04/17 04:00 07/04/17 04:00 Diabetes panel 07/04/17 Range/Units 04:00 Sodium 136 (136-145) mEq/L Potassium 6.1 H (3.5-4.5) mEq/L Chloride 101 (98-109) mEq/L Carbon Dioxide 21 (19-29) mEq/L BUN 55 H D (7-20) mg/dL Creatinine 6.95 H (0.57-1.11) mg/dL Glucose 231 H (70-99) mg/dL Calcium 7.4 L (8.6-10.8) mg/dL Calcium panel 07/04/17 Range/Units 04:00 Calcium 7.4 L (8.6-10.8) mg/dL Pituitary panel 07/04/17 Range/Units 04:00 Sodium 136 (136-145) mEq/L Potassium 6.1 H (3.5-4.5) mEq/L Chloride 101 (98-109) mEq/L Carbon Dioxide 21 (19-29) mEq/L BUN 55 H D (7-20) mg/dL Creatinine 6.95 H (0.57-1.11) mg/dL Glucose 231 H (70-99) mg/dL Calcium 7.4 L (8.6-10.8) mg/dL Adrenal panel 07/04/17 Range/Units 04:00 Sodium 136 (136-145) mEq/L Potassium 6.1 H (3.5-4.5) mEq/L Chloride 101 (98-109) mEq/L Carbon Dioxide 21 (19-29) mEq/L BUN 55 H D (7-20) mg/dL Creatinine 6.95 H (0.57-1.11) mg/dL Glucose 231 H (70-99) mg/dL Calcium 7.4 L (8.6-10.8) mg/dL Consult Discharge Plan - Plan Referrals: Na Johansen CNP [Primary Care Provider] - 07/09/17 11:00 am
[2017-07-04] MEDS ORDERED: 0.9 % Sodium Chloride 1,000 ML ONE (08:35)
--- NOTE | 2017-07-04 10:39 | Nephrology Progress Note ---
Date of Encounter: 07/04/17 Time of Encounter: 09:55 - Assessment and Plan (1) ESRD (end stage renal disease) Current Visit: Yes Status: Chronic HD today for clearance and not fluid removal d/t her hx of high output ileostomy and absence of edema. Next HD is planned for Friday. Will be available this if needed (2) Acute respiratory distress Current Visit: Yes Status: Acute Appreciate the hospitalists (3) Atypical pneumonia Current Visit: Yes Status: Acute See above (4) Gross hematuria Current Visit: Yes Status: Acute Via urostomy. Appreciate Urology (5) Anemia in chronic kidney disease Current Visit: Yes Status: Chronic Goal Hgb is 10-11 in CKD. Qualifiers: Chronic kidney disease stage: on chronic dialysis Qualified Code(s): N18.6 - End stage renal disease; D63.1 - Anemia in chronic kidney disease; Z99.2 - Dependence on renal dialysis Subjective Principal diagnosis: atypical pneumonia, ESRD on dialysis Interval history: Pt was s/e while on HD. She did not affirm N/V/D but did report gross hematuria via the urostomy and ongoing productive cough with rib pains from frequent coughing. Objective - Vital Signs Vital signs: Vital Signs Temp Pulse Resp BP Pulse Ox 07/04/17 08:52 98.3 F 80 20 150/80 96 07/04/17 04:22 18 93 07/04/17 00:40 16 93 07/03/17 21:00 97.7 F 78 17 144/73 92 07/03/17 20:29 98 07/03/17 20:02 19 98 07/03/17 15:34 16 99 07/03/17 15:30 98.2 F 72 15 121/64 91 07/03/17 11:16 97.7 F 72 15 145/73 99 07/03/17 11:08 16 96 Intake and Output 07/03/17 07/04/17 07/04/17 23:59 07:59 15:59 Intake Total 0 / 0 0 / 0 360 / 360 Output Total 0 / 0 0 / 0 50 / 50 Balance 0 / 0 0 / 0 310 / 310 Intake: Oral 0 / 0 0 / 0 360 / 360 Output: Urine 0 / 0 0 / 0 0 / 0 Urostomy 50 / 50 Other: Meal Breakfast Percent of Meal Consumed 100% Weight 60.1 kg 60.1 kg Patient Weight 09/01/17 23:59 Weight 60.1 kg - General Appearance Exam: General appearance: Present: well-developed, appears started age, chronically ill, frail EENT: Present: ATNC, PERRL Neck: Present: supple Respiratory: Present: rales, course breath sounds, rhonchi Cardiology: Present: no edema, normal S1, normal S2 Dialysis Vascular Access: Arteriovenous Fistula (Left Upper Extremity) thrill: Yes bruit: Yes Gastrointestinal: Present: normoactive bowel sounds, no guarding Additional Comments: Ileostomy and Urostomy with dark burgundy colored appearing urine in the urostomy bag. Integumentary: Present: warm and dry Neurologic: Present: no focal deficit Musculoskeletal: Present: no deformities, no erythema, no cyanosis Psychiatric: Present: mood/affect appropriate, cooperative - Lab 07/04/17 04:00 07/04/17 04:00 Most recent lab results Calcium 7.4 mg/dL (8.6-10.8) L 07/04/17 04:00 Phosphorus 14.9 mg/dL (2.3-4.7) H 06/30/17 14:09 Magnesium 2.3 mg/dL (1.6-2.6) 07/01/17 05:30 Consult Discharge Plan - Plan Referrals: Na Johansen CNP [Primary Care Provider] - 07/09/17 11:00 am
--- NOTE | 2017-07-04 11:30 | Internal Med Progress Note ---
<Gen Frost - Last Filed: 07/04/17 16:49> Date of Encounter: 07/04/17 Time of Encounter: 11:27 - Assessment and plan (1) Chest pain Current Visit: Yes Status: Acute Assessment and plan: Chest pain resolved. Chest pain presented in the setting of atypical pneumonia , atrial fibrillation with RVR. - Initial troponin levels were 0.04, 0.02, 0.05 - EKG demonstrated atrial fibrillation with rapid ventricular rate - Risk factors for ACS: Greater than [id number] history of smoking, end-stage renal disease, significant family history of coronary artery disease, new onset atrial fibrillation, female with age greater than 65. - JOHN score: 4 - Cardiology on board and plans to follow in the outpatient setting. Qualifiers: Chest pain type: chest pain on breathing Qualified Code(s): R07.1 - Chest pain on breathing; R07.81 - Pleurodynia (2) Atrial fibrillation with rapid ventricular response Current Visit: Yes Status: Acute Assessment and plan: -New onset atrial fibrillation with RVR, this admission. -On cardizem CD 120mg. heart rate up to 140 during dialysis, patient receives 60mg Cardizem by mouth and heart rate switched to sinus rhythm at 80-90. Blood pressure stable, patient may require 180 mg Cardizem CD for appropriate rate control. -CHads 2vasc score 2 (age, Gender). Anticoagulation is recommended but patient continues to have gross hematourea and anticoagulation was held, urology following. -Echo with LVEF 55%, mild concentric left ventricular hypertrophy, atypical septal motion consistent with bundle branch block, moderately dilated left atrium, no significant valvular dysfunction, all garcia with normal motion. -Previous Echocardiogram from 11/09/2016 demonstrates a left ventricular ejection fraction of 60-65%, normal left ventricular size and systolic function , evidence of mild diastolic dysfunction of the left ventricle, normal right ventricular size and function, no significant valvular dysfunction, estimated RVSP of 21, no pulmonary hypertension. (3) Atypical pneumonia Current Visit: Yes Status: Acute Assessment and plan: Community-acquired pneumonia, CXR demonstrated bilateral interstitial infiltrates. Plan: Continue Azithromycin - Continue breathing treatments - Patient improving. (4) Metabolic acidosis Current Visit: Yes Status: Resolved Assessment and plan: resolved. (5) Anemia in chronic kidney disease Current Visit: Yes Status: Chronic Assessment and plan: Hemoglobin of 7.8 with gross hematurea, baseline around 10, history of anemia secondary to end-stage renal disease. Plan: - Continue to monitor. - Replace with PRBCs if hemoglobin falls below 7.0 Qualifiers: Chronic kidney disease stage: on chronic dialysis Qualified Code(s): N18.6 - End stage renal disease; D63.1 - Anemia in chronic kidney disease; Z99.2 - Dependence on renal dialysis (6) ESRD (end stage renal disease) on dialysis Current Visit: No Status: Chronic Assessment and plan: Continue with scheduled dialysis, nephrology consulted for HD. (7) Tobacco abuse Current Visit: Yes Status: Chronic Assessment and plan: Counseled extensively regarding the need for cessation. (8) COPD (chronic obstructive pulmonary disease) Current Visit: Yes Status: Chronic Assessment and plan: Discontinue Solu-medrol and start PO Prednisone 40mg daily Breathing treatments as scheduled Cough suppressant. - Maintain oxygen saturations 88-92% Qualifiers: COPD type: COPD with acute exacerbation Qualified Code(s): J44.1 - Chronic obstructive pulmonary disease with (acute) exacerbation (9) Colostomy care Current Visit: Yes Status: Acute Assessment and plan: Continue inpatient care of colostomy (10) Attention to urostomy Current Visit: Yes Status: Acute Assessment and plan: Continue inpatient care of urostomy. (11) Gross hematuria Current Visit: Yes Status: Acute Assessment and plan: Continue to hold anticoagulation with continued Hematuria - Urology following - Possible UTI induced hematuria since patient had bleeding prior to admission: Continue Rocephin for coverage - Also possible bleeding from intestine attached to urostomy- Gastroenterology on board - Continue to monitor H&H daily - Appreciate senior wind energy consultant recommendations. - Subjective Interval history: Ms. Parra has been seen and evaluated at patient bedside this morning while in Dialysis. She says that she is doing better since admission but continues to have a nonproductive cough and palpitations. She has tolerated dialysis and oral intake. She continues to have some dark red output in her urostomy bag which she said is been continuous. After further discussion she had blood with occasional blood clots passing through her urostomy day prior to admission. She denies any fevers, chills, sweating, abdominal pains, nausea vomiting abnormal output in her colostomy or constipation. - Constitutional Vitals: Temp Pulse Resp BP Pulse Ox 98.3 F 80 20 150/80 96 07/04/17 08:52 07/04/17 08:52 07/04/17 08:52 07/04/17 08:52 07/04/17 08:52 Exam: Physical exam: Gen. alert awake interactive in no acute distress tolerating hemodialysis HEENT: Normocephalic, atraumatic, pupils equal and reactive, nasal cavity patent oral mucosa is moist neck is supple trachea midline Chest: Symmetric bilateral choroidal respiratory effort, port in right upper chest without erythema edema or drainage. Respiratory: Clear to auscultation bilateral patient does have occasional coughing through examination Cardiac: Irregularly irregular rate and rhythm, no murmurs gallops appreciated, radial and posterior tibial pulses 2+ bilateral Abdomen: Soft, nontender, postsurgical scars present, urostomy date with dark red output, colostomy bag with green brown drainage Extremities: Symmetric bilateral, patient moving all 4 extremities spontaneously Internal Medicine: Result - Labs CBC & Chem 7: 07/04/17 04:00 07/04/17 04:00 Labs: Short CBC 07/04/17 Range/Units 04:00 WBC 5.8 (4.3-11.1) K/mcL Hgb 7.8 L (11.5-15.4) g/dL Hct 25.2 L (35.3-44.9) % Plt Count 98 L (140-400) K/mcL Neutrophils # 5.2 (1.6-8.9) K/mcL BMP 07/04/17 04:00 Sodium 136 Potassium 6.1 H Chloride 101 Carbon Dioxide 21 BUN 55 H D Creatinine 6.95 H Glucose 231 H Calcium 7.4 L - ABG Interpretation ABG results: PT/INR, D-dimer PT 16.6 Seconds (9.4-12.1) H 07/04/17 04:00 - Impressions Impressions Liver Ultrasound 07/03/17 17:00 IMPRESSION: Gallbladder is absent. Prominent common bile duct (1.2 cm) likely related to postcholecystectomy state. Renal findings suggestive of medical renal disease of the right kidney. No hydronephrosis. D/ / 07/03/2017 18:28:39 Adonay Burnett MD / [email or web address] Interpreting Provider: Adonay Burnett MD Consult Discharge Plan - Plan Referrals: Na Johansen, SOIL CONSERVATION TECHNICIAN [Primary Care Provider] - 07/09/17 11:00 am <Pasha Alexander T - Last Filed: 07/04/17 17:51> Date of Encounter: 07/04/17 - Constitutional Vitals: Temp Pulse Resp BP Pulse Ox 98.0 F 86 12 122/73 96 07/04/17 16:21 07/04/17 16:21 07/04/17 16:21 07/04/17 16:21 07/04/17 16:21 Internal Medicine: Result - Labs CBC & Chem 7: 07/04/17 04:00 07/04/17 04:00 Labs: Short CBC 07/04/17 Range/Units 04:00 WBC 5.8 (4.3-11.1) K/mcL Hgb 7.8 L (11.5-15.4) g/dL Hct 25.2 L (35.3-44.9) % Plt Count 98 L (140-400) K/mcL Neutrophils # 5.2 (1.6-8.9) K/mcL BMP 07/04/17 04:00 Sodium 136 Potassium 6.1 H Chloride 101 Carbon Dioxide 21 BUN 55 H D Creatinine 6.95 H Glucose 231 H Calcium 7.4 L - ABG Interpretation ABG results: PT/INR, D-dimer PT 16.6 Seconds (9.4-12.1) H 07/04/17 04:00 - Impressions Impressions Liver Ultrasound 07/03/17 17:00 IMPRESSION: Gallbladder is absent. Prominent common bile duct (1.2 cm) likely related to postcholecystectomy state. Renal findings suggestive of medical renal disease of the right kidney. No hydronephrosis. D/ / 07/03/2017 18:28:39 Adonay Burnett MD / [email or web address] Interpreting Provider: Adonay Burnett MD - Attending Attestation I have independently seen and examined this patient on 07/04/17, reviewed the EMR and discussed plan of care with the patient and resident physician 71 F, seen and evaluated at bedside during HD She has a PMH of ESRD on HD, chronic diarrhea, colostomy, Urostomy, HTN She is being managed for new onset Afib with RVR, Hematuria from Urostomy, suspected UTI, COPDE, Moderate protein-calori malnutrition, Suspected GIB She has no new complains Physical exam: Frail, chronically ill-looking, not in distress, speaks full sentences. Chest with R port, clean and dry, CTAB anterior auscultation, Heart sounds S1, S2 only, no m/g/r, Abdomen with L colostoly bag empty, bloody output in urostomy on the R. No pedal edema Labs and Imaging Hb is 7.8, same as 07/03, thrombocytopenia persists but improved, K 6.1 prior to dialysis, INR 1.9 A/P Continue management for COPD exacerbation, change steroids to oral, obtain urine culture-patient has been on ceftriaxone for suspetced utI, GI eval noted, Liver USS without cirrhosis, anemia and thrombocytpenia-continue to monitor, continue to hold coumadin, increase Cardizem for Afib with RVR, monitor BP, monitor chem. Malnutrition: continue supplements. LLL pneumonia: continue antibiotics. Rest of details as in resident physician's documentation
[2017-07-04] MEDS: Azithromycin 250 MG TABLET PO SCH (13:53)
[2017-07-04] MEDS: Ipratropium/Albuterol Neb 3 ML IH SCH ×2 (15:34→22:32)
[2017-07-04 19:45] LABS: Bilirubin,Urine Large (Negative); Blood,Urine Large (Negative); Clarity,Urine Turbid (Clear); Color,Urine Red (Yellow); Glucose,Urine (UA) Normal (Normal); Ketones,Urine 15 mg/dL (Negative); Leukocyte Esterase,Urine Moderate (Negative); Nitrite,Urine Positive (Negative); PH,Urine 7.5 pH Units (5.0-8.0); Protein,Urine >=300 mg/dL (Neg-Trace); Specific Gravity,Urine 1.014 (1.010-1.025); Urobilinogen,Urine Normal (Normal)
[2017-07-05] MEDS: *HR* HYDROcodone/Acet 5/325 mg TABLET PO PRN ×4 (00:14→21:27)
[2017-07-05] MEDS: Metoclopramide 10 MG/10 ML UD.LIQ PO PRN ×2 (00:14→21:28)
[2017-07-05] MEDS: Ipratropium/Albuterol Neb 3 ML IH SCH ×4 (03:47→23:01)
[2017-07-05 04:16] LABS: Hematocrit 26.5 % (35.3-44.9); Hemoglobin 8.2 g/dL (11.5-15.4); Immature Granulocytes % 0.5 % (0-4); Lymphocytes # 0.6 K/mcL (0.6-4.6); Lymphocytes % 8.9 %; Mean Corpuscular HGB Conc 30.9 g/dL (31.6-35.5); Mean Corpuscular Hemoglobin 30.6 pg (28.0-33.3); Mean Corpuscular Volume 98.9 fL (83.0-100.0); Mean Platelet Volume 12.4 fL (9.4-12.4); Monocytes # 0.2 K/mcL (0.0-1.3); Monocytes % 3.8 %; Neutrophils # 5.5 K/mcL (1.6-8.9); Platelet Count 106 K/mcL (140-400); Red Blood Count 2.68 M/mcL (3.82-4.97); Red Cell Distribution Width 15.1 % (11.5-14.5); Segmented Neutrophils % 86.8 %
[2017-07-05 04:27] LABS: Albumin 2.8 g/dL (3.5-5.0); Albumin/Globulin Ratio 0.8 (1.1-2.2); Bilirubin,Total 0.3 mg/dL (0.2-1.2); Calcium 7.2 mg/dL (8.6-10.8); Globulin 3.3 g/dL (2.4-3.5); Total Protein 6.1 g/dL (6.0-8.3)
[2017-07-05 04:30] LABS: Potassium 6.5 mEq/L (3.5-4.5)
[2017-07-05] MEDS ORDERED: Insulin Human Regular 5 UNIT, Sodium Bicarbonate 50 MEQ in D10% in Water 500 ML IVC ONE (04:35)
[2017-07-05] MEDS ORDERED: Ipratropium/Albuterol Neb 3 ML IH ONE (04:58)
[2017-07-05] MEDS ORDERED: D5 IVC SCH (05:00)
[2017-07-05] MEDS ORDERED: INSULIN HUMAN REGULAR IVC SCH (05:00)
[2017-07-05] MEDS ORDERED: WATER IVC SCH (05:00)
--- NOTE | 2017-07-05 05:04 | Event Note ---
Date of Encounter: 07/05/17 Time of Encounter: 05:00 Critical Lab result: K 6.5. Pt had HD yesterday. - D5 500 ml plus regular insulin 5 units IV. - Sodium bicarbonate 50 mEq ivp x 1 - Duoneb 3ml IH once - Kayexalate 30g po once. - Obtain EKG. - Nephrology on case, make sure to follow. - Repeat potassium level in 6 hours.
[2017-07-05] MEDS: Ondansetron 4 MG/2 ML VIAL IVP PRN ×2 (05:48→15:09)
[2017-07-05] MEDS: predniSONE 20 MG TABLET PO SCH (07:59)
[2017-07-05] MEDS: Calcium Acetate 667 MG CAPSULE PO SCH ×3 (08:00→18:19)
[2017-07-05] MEDS: Lactobacillus 1 EACH CAP.SPRINK PO SCH ×2 (08:00→21:26)
[2017-07-05] MEDS: GuaiFENesin/Dextromethorphan TABLET PO SCH (08:00)
[2017-07-05] MEDS: Diltiazem CD (24hr) 120 MG CAPSULE PO SCH (08:00)
[2017-07-05] MEDS: Cholecalciferol (D-3) 1,000 UNIT TABLET PO SCH (08:00)
[2017-07-05] MEDS: Azithromycin 250 MG TABLET PO SCH (08:00)
[2017-07-05] MEDS: Renal Vitamin 1 MG CAPSULE PO SCH (08:00)
[2017-07-05] MEDS: Nicotine 21 MG PATCH.TD24 TD SCH (08:03)
--- NOTE | 2017-07-05 08:24 | Urology Progress Note ---
Date of Encounter: 07/05/17 Time of Encounter: 08:23 - Assessment and Plan (1) Gross hematuria Current Visit: Yes Status: Acute Assessment and plan: improving, likely related to UTI. continue 2 weeks total abx. ok to switch to oral equivalent. f/u in 1-2 weeks with me. call with questions. Progress Note Narrative: patient seen today. complaining of CP and back pain. Objective Initial Vital Signs Temp Pulse Resp BP Pulse Ox 98.1 F 132 20 109/69 97 06/30/17 07:16 06/30/17 07:16 06/30/17 07:16 06/30/17 07:16 06/30/17 07:16 - General physical appearance Present: well developed - Abdomen Present: soft (improving clarity in urostomy. ) - Labs 07/05/17 04:00 07/05/17 04:00 Diabetes panel 07/05/17 Range/Units 04:00 Sodium 139 (136-145) mEq/L Potassium 6.5 H* (3.5-4.5) mEq/L Chloride 103 (98-109) mEq/L Carbon Dioxide 23 (19-29) mEq/L BUN 46 H (7-20) mg/dL Creatinine 5.07 H (0.57-1.11) mg/dL Glucose 153 H (70-99) mg/dL Calcium 7.2 L (8.6-10.8) mg/dL AST 10 (5-34) Units/L ALT 10 (0-55) Units/L Alkaline Phosphatase 49 (38-126) Units/L Albumin 2.8 L (3.5-5.0) g/dL Calcium panel 07/05/17 Range/Units 04:00 Calcium 7.2 L (8.6-10.8) mg/dL Albumin 2.8 L (3.5-5.0) g/dL Pituitary panel 07/05/17 Range/Units 04:00 Sodium 139 (136-145) mEq/L Potassium 6.5 H* (3.5-4.5) mEq/L Chloride 103 (98-109) mEq/L Carbon Dioxide 23 (19-29) mEq/L BUN 46 H (7-20) mg/dL Creatinine 5.07 H (0.57-1.11) mg/dL Glucose 153 H (70-99) mg/dL Calcium 7.2 L (8.6-10.8) mg/dL Adrenal panel 07/05/17 Range/Units 04:00 Sodium 139 (136-145) mEq/L Potassium 6.5 H* (3.5-4.5) mEq/L Chloride 103 (98-109) mEq/L Carbon Dioxide 23 (19-29) mEq/L BUN 46 H (7-20) mg/dL Creatinine 5.07 H (0.57-1.11) mg/dL Glucose 153 H (70-99) mg/dL Calcium 7.2 L (8.6-10.8) mg/dL Total Bilirubin 0.3 (0.2-1.2) mg/dL AST 10 (5-34) Units/L ALT 10 (0-55) Units/L Alkaline Phosphatase 49 (38-126) Units/L Albumin 2.8 L (3.5-5.0) g/dL Consult Discharge Plan - Plan Referrals: Na Johansen, TYLER [Primary Care Provider] - 07/09/17 11:00 am
--- NOTE | 2017-07-05 08:58 | Internal Med Progress Note ---
<Adele Royal - Last Filed: 07/05/17 16:07> Date of Encounter: 07/05/17 Time of Encounter: 11:00 - Assessment and plan (1) COPD exacerbation Current Visit: Yes Status: Acute Assessment and plan: Patient is currently on prednisone 40 mg daily. DuoNeb treatments Q6hrs prn. (2) Thrombocytopenia Current Visit: Yes Status: Acute (3) Anemia in chronic kidney disease Current Visit: Yes Status: Chronic Assessment and plan: Hemoglobin of 7.8 with gross hematurea, baseline around 10, history of anemia secondary to end-stage renal disease. Today 8.2. Plan: - Continue to monitor - Replace with PRBCs if hemoglobin falls below 7.0 Qualifiers: Chronic kidney disease stage: on chronic dialysis Qualified Code(s): N18.6 - End stage renal disease; D63.1 - Anemia in chronic kidney disease; Z99.2 - Dependence on renal dialysis (4) DVT prophylaxis Current Visit: No Status: Acute Assessment and plan: IPCD. Currently actively bleeding. (5) Presence of urostomy Current Visit: Yes Status: Chronic Assessment and plan: Urology on board. Stable urostomy site without signs of infection. (6) ESRD (end stage renal disease) Current Visit: No Status: Chronic Assessment and plan: Currently on hemodialysis. She had dialysis yesterday but came back with an elevated potassium today so we will do extra dialysis today. (7) UTI (urinary tract infection) Current Visit: No Status: Acute Assessment and plan: Cultures are pending. Cultures were taken yesterday after starting her Rocephin and may have a false negative. Currently on Rocephin day 5. Increased Rocephin from 1 g to 2 g today. Qualifiers: Urinary tract infection type: site unspecified Hematuria presence: without hematuria Qualified Code(s): N39.0 - Urinary tract infection, site not specified (8) Atypical pneumonia Current Visit: Yes Status: Acute Assessment and plan: Community-acquired pneumonia, CXR demonstrated bilateral interstitial infiltrates. Plan: Continue Azithromycin - Continue breathing treatments Duoneb 3ml Q6 H - increased Guaifenesin 10ml PO Q4h - (9) Atrial fibrillation with rapid ventricular response Current Visit: Yes Status: Acute Assessment and plan: -New onset atrial fibrillation with RVR, this admission. -On cardizem CD 120mg. heart rate up to 140 during dialysis, patient receives 60mg Cardizem by mouth and heart rate switched to sinus rhythm at 80-90. Blood pressure stable, patient may require 180 mg Cardizem CD for appropriate rate control. -CHads 2vasc score 2 (age, Gender). Anticoagulation is recommended but patient continues to have gross hematourea and anticoagulation was held, urology following. -Echo with LVEF 55%, mild concentric left ventricular hypertrophy, atypical septal motion consistent with bundle branch block, moderately dilated left atrium, no significant valvular dysfunction, all garcia with normal motion. -Previous Echocardiogram from 11/09/2016 demonstrates a left ventricular ejection fraction of 60-65%, normal left ventricular size and systolic function , evidence of mild diastolic dysfunction of the left ventricle, normal right ventricular size and function, no significant valvular dysfunction, estimated RVSP of 21, no pulmonary hypertension. Patient is currently still on Cardizem 120ml QD by mouth. Rate is stable. (10) Colostomy care Current Visit: Yes Status: Acute Assessment and plan: Continue inpatient care of colostomy (11) Gross hematuria Current Visit: Yes Status: Acute Assessment and plan: Continue to hold anticoagulation with continued Hematuria - Urology following and believe hematuria to be due to infection. Hematuria is improving. Urology recommended continuing the antibiotics for a total of 2 weeks. He approves of switching to oral liquid. Follow-up in 2 weeks with urology. - Possible UTI induced hematuria since patient had bleeding prior to admission: Continue Rocephin for coverage - Also possible bleeding from intestine attached to urostomy- Gastroenterology on board - Continue to monitor H&H daily - Appreciate valuation consultant recommendations. - Subjective Interval history: Patient is a 16-year-old female past medical history of urostomy, colostomy, COPD and, end-stage renal disease on hemodialysis presented to the ED with gross hematuria and was admitted for new onset A. fib with RVR, atypical pneumonia, and anemia. Today patient says she feels worse that her chest pain is hurting more especially when she takes deep breath and it is constant. She says her cough is worse and it is hard to bring phlegm up. She says her urine output is low. - Constitutional Vitals: Temp Pulse Resp BP Pulse Ox 97.9 F 78 16 174/85 96 07/05/17 07:39 07/05/17 07:39 07/05/17 07:39 07/05/17 07:39 07/05/17 07:39 Exam: Constitutional: Alert, in mild acute distress, well nourished, well developed. Head: Normocephalic, atraumatic, normal contour and symmetric, no masses, lesions or scars Heart: Normal, regular rate and rhythm, no murmurs Lungs: + wheezes, rhonchi, and rales, patient is actively coughing, Abdomen: left colostomy with brown watery stool, right urostomy with dark, red tinged urine, tender suprapublically, Soft, nondistended and no masses palpable , bowel sounds present and normal, no guarding or rigidity. Extremities: No clubbing, cyanosis, or edema, radial pulse +2/4, capillary refill <2sec. Skin: right chest port, left arm AV fistula, Skin warm and dry, no lesions, no rashes, no jaundice Neurologic: Cranial nerves II through XII grossly intact, no focal deficits, strength within normal limits in all extremities Psych: Cooperative with exam, good eye contact, cognitive function intact, judgment good insight good, speech clear, thought process logical, and goal directed Internal Medicine: Result - Labs CBC & Chem 7: 07/05/17 04:00 07/05/17 04:00 Labs: Short CBC 07/05/17 Range/Units 04:00 WBC 6.4 (4.3-11.1) K/mcL Hgb 8.2 L (11.5-15.4) g/dL Hct 26.5 L (35.3-44.9) % Plt Count 106 L (140-400) K/mcL Neutrophils # 5.5 (1.6-8.9) K/mcL BMP 07/05/17 04:00 Sodium 139 Potassium 6.5 H* Chloride 103 Carbon Dioxide 23 BUN 46 H Creatinine 5.07 H Glucose 153 H Calcium 7.2 L Liver Function 07/05/17 Range/Units 04:00 Total Bilirubin 0.3 (0.2-1.2) mg/dL AST 10 (5-34) Units/L ALT 10 (0-55) Units/L Alkaline Phosphatase 49 (38-126) Units/L Albumin 2.8 L (3.5-5.0) g/dL Urine 07/04/17 Range/Units 19:15 Urine Color Red A (Yellow) Urine Clarity Turbid A (Clear) Urine pH 7.5 (5.0-8.0) pH Units Ur Specific Moira 1.014 (1.010-1.025) Urine Protein >=300 H (Neg-Trace) mg/dL Urine Glucose (UA) Normal (Normal) mg/dL - ABG Interpretation ABG results: PT/INR, D-dimer PT 16.6 Seconds (9.4-12.1) H 07/04/17 04:00 Consult Discharge Plan - Plan Referrals: Na Johansen, APPLICATION SUPPORT ADMINISTRATOR [Primary Care Provider] - 07/09/17 11:00 am <Pasha Alexander - Last Filed: 07/05/17 17:48> Date of Encounter: 07/05/17 - Constitutional Vitals: Temp Pulse Resp BP Pulse Ox 97.9 F 78 20 144/60 98 07/05/17 13:50 07/05/17 07:39 07/05/17 13:50 07/05/17 15:50 07/05/17 10:38 Internal Medicine: Result - Labs CBC & Chem 7: 07/05/17 04:00 07/05/17 16:11 Labs: Short CBC 07/05/17 Range/Units 04:00 WBC 6.4 (4.3-11.1) K/mcL Hgb 8.2 L (11.5-15.4) g/dL Hct 26.5 L (35.3-44.9) % Plt Count 106 L (140-400) K/mcL Neutrophils # 5.5 (1.6-8.9) K/mcL BMP 07/05/17 07/05/17 04:00 16:11 Sodium 139 Potassium 6.5 H* 4.1 D Chloride 103 Carbon Dioxide 23 BUN 46 H Creatinine 5.07 H Glucose 153 H Calcium 7.2 L Liver Function 07/05/17 Range/Units 04:00 Total Bilirubin 0.3 (0.2-1.2) mg/dL AST 10 (5-34) Units/L ALT 10 (0-55) Units/L Alkaline Phosphatase 49 (38-126) Units/L Albumin 2.8 L (3.5-5.0) g/dL Urine 07/04/17 Range/Units 19:15 Urine Color Red A (Yellow) Urine Clarity Turbid A (Clear) Urine pH 7.5 (5.0-8.0) pH Units Ur Specific Moira 1.014 (1.010-1.025) Urine Protein >=300 H (Neg-Trace) mg/dL Urine Glucose (UA) Normal (Normal) mg/dL - ABG Interpretation ABG results: PT/INR, D-dimer PT 16.6 Seconds (9.4-12.1) H 07/04/17 04:00 - Attending Attestation I have independently seen and examined this patient on 07/05/17, reviewed the EMR and discussed plan of care with the patient and resident physician 71 F, seen and evaluated at bedside She has a PMH of ESRD on HD, chronic diarrhea, colostomy, Urostomy, HTN She is being managed for new onset Afib with RVR, Hematuria from Urostomy, suspected UTI, COPDE, Moderate protein-calorie malnutrition, Suspected GIB She complained of pleuritic pain on coughing, and is seen to have difficulty coughing up phlegm. She denies diarrhea. Output from urostomy is clearer now Urine culture is pending Physical exam: Frail, chronically ill-looking, not in distress, speaks full sentences. Chest with R port, clean and dry, CTAB anterior auscultation, Heart sounds S1, S2 only, no m/g/r, Abdomen with L colostomy bag empty, serous output in urostomy on the R. No pedal edema Labs and Imaging Hb is 8.2, PLT 106, improving, K 6.5 A/P Repeat K ordered, renal is following, patient needs HD today for hyperkalemia, Continue management for COPD exacerbation, increase robittusin-DM, increase the dose of pain meds, Urine culture is pending, continue antibiotics for Pneumonia and UTI, Increase Ceftriaxone to 2g, GI eval noted, Liver USS without cirrhosis , anemia and thrombocytpenia-improving, continue to monitor, continue to hold coumadin, Malnutrition: continue supplements. Rest of details as in resident physician's documentation
[2017-07-05] MEDS ORDERED: 0.9 % Sodium Chloride 250 ML IVC PRN (09:20)
--- NOTE | 2017-07-05 09:24 | Nephrology Progress Note ---
Date of Encounter: 07/05/17 Time of Encounter: 09:22 - Assessment and Plan (1) ESRD (end stage renal disease) Current Visit: Yes Status: Chronic Persistent hyperkalemia. I discovered that next to the pt's bedside tray a large container of KCl in the form of "No Salt" substitute. She said that a few days ago a Dance Entertainer here told her to take the No Salt. However, this would explain why she has become so hyperkalemic. S/p kayexalate this AM, with pending recheck. I've added her on for HD today for clearance of the hyperkalemia and informed the pt and the floor nurse to take the No Salt away and to educate the steel division supervisor. (2) Acute respiratory distress Current Visit: Yes Status: Acute Appreciate the hospitalists (3) Atypical pneumonia Current Visit: Yes Status: Acute See above (4) Gross hematuria Current Visit: Yes Status: Acute Via urostomy. Appreciate Urology (5) Anemia in chronic kidney disease Current Visit: Yes Status: Chronic Goal Hgb is 10-11 in CKD. Qualifiers: Chronic kidney disease stage: on chronic dialysis Qualified Code(s): N18.6 - End stage renal disease; D63.1 - Anemia in chronic kidney disease; Z99.2 - Dependence on renal dialysis Subjective Principal diagnosis: atypical pneumonia, ESRD on dialysis Interval history: Pt was s/e while on HD. She did not affirm N/V/D but did report gross hematuria via the urostomy and ongoing productive cough with rib pains from frequent coughing. Objective - Vital Signs Vital signs: Vital Signs Temp Pulse Resp BP Pulse Ox 07/05/17 07:39 97.9 F 78 16 174/85 96 07/05/17 03:47 16 98 07/05/17 02:50 97.9 F 75 17 140/74 99 07/04/17 22:59 97.9 F 77 16 124/69 97 07/04/17 22:33 19 96 07/04/17 19:44 98.2 F 76 17 121/67 98 07/04/17 16:21 98.0 F 86 12 122/73 96 07/04/17 15:34 20 98 07/04/17 13:52 97.2 F L 18 146/68 07/04/17 12:50 139/74 07/04/17 12:35 137/65 07/04/17 12:30 113/68 07/04/17 12:25 114/53 07/04/17 12:20 132/54 07/04/17 12:05 124/65 07/04/17 11:50 129/78 07/04/17 11:35 143/70 07/04/17 11:20 146/71 07/04/17 11:05 146/71 07/04/17 10:50 137/71 07/04/17 10:35 127/71 07/04/17 10:20 127/62 07/04/17 10:05 133/54 07/04/17 09:50 143/63 07/04/17 09:35 97.6 F 22 152/76 Intake and Output 07/04/17 07/05/17 07/05/17 23:59 07:59 15:59 Intake Total 2997 / 2997 400 / 400 360 / 360 Output Total 0 / 0 975 / 975 450 / 450 Balance 2997 / 2997 -575 / -575 -90 / -90 Intake: Oral 2760 / 2760 400 / 400 360 / 360 Other 237 / 237 Output: Urine 0 / 0 0 / 0 Stool 0 / 0 975 / 975 450 / 450 Urostomy 0 / 0 0 / 0 Other: Meal Dinner Breakfast Percent of Meal Consumed 100% 100% Stool Color Brown # Bowel Movements 1 1 Weight 62.7 kg Patient Weight 07/05/17 23:59 Weight 62.7 kg - General Appearance Exam: General appearance: Present: well-developed, appears started age, chronically ill, frail EENT: Present: ATNC, PERRL Neck: Present: supple Respiratory: Present: rales, course breath sounds, rhonchi Cardiology: Present: no edema, normal S1, normal S2 Dialysis Vascular Access: Arteriovenous Fistula (Left Upper Extremity) thrill: Yes bruit: Yes Gastrointestinal: Present: normoactive bowel sounds, no guarding Additional Comments: Ileostomy and Urostomy with dark burgundy colored appearing urine in the urostomy bag. Integumentary: Present: warm and dry Neurologic: Present: no focal deficit Musculoskeletal: Present: no deformities, no erythema, no cyanosis Psychiatric: Present: mood/affect appropriate, cooperative - Lab 07/09/17 08:35 07/09/17 04:05 Most recent lab results Calcium 7.2 mg/dL (8.6-10.8) L 07/05/17 04:00 Phosphorus 14.9 mg/dL (2.3-4.7) H 06/30/17 14:09 Magnesium 2.3 mg/dL (1.6-2.6) 07/01/17 05:30 Consult Discharge Plan - Plan Referrals: Na Johansen, TYLER [Primary Care Provider] -
[2017-07-05] MEDS: Budesonide/Formoterol 80/4.5 MDI IH SCH ×2 (10:38→23:02)
[2017-07-05] MEDS ORDERED: 0.9 % Sodium Chloride 1,000 ML ONE (17:36)
[2017-07-06] MEDS: Melatonin 3 MG TABLET PO PRN (00:02)
[2017-07-06] MEDS: Ondansetron 4 MG/2 ML VIAL IVP PRN ×3 (01:59→18:18)
[2017-07-06] MEDS: *HR* HYDROcodone/Acet 5/325 mg TABLET PO PRN ×4 (01:59→21:04)
[2017-07-06] MEDS: Ipratropium/Albuterol Neb 3 ML IH SCH ×4 (04:31→22:21)
[2017-07-06 04:43] LABS: Immature Granulocytes % 0.5 % (0-4); Monocytes % 4.4 %; Red Cell Distribution Width 14.9 % (11.5-14.5)
[2017-07-06 04:45] LABS: Eosinophils % 0.2 %; Hemoglobin 7.2 g/dL (11.5-15.4); Immature Platelets 7.2 % (1.1-6.1); Lymphocytes % 15.4 %; Mean Platelet Volume 12.5 fL (9.4-12.4); Monocytes # 0.3 K/mcL (0.0-1.3); Segmented Neutrophils % 79.5 %
[2017-07-06 04:55] LABS: Platelet Count 92 K/mcL (140-400)
[2017-07-06 05:03] LABS: Potassium 5.6 mEq/L (3.5-4.5)
[2017-07-06] MEDS ORDERED: Insulin Regular, Human 100 UNIT/ML SQ ONE ×2 (08:16→08:30)
[2017-07-06] MEDS ORDERED: *HR* Dextrose 50 % in Water (Syg) 50 ML SYRINGE IVP ONE (08:20)
[2017-07-06] MEDS: Lactobacillus 1 EACH CAP.SPRINK PO SCH ×2 (08:23→20:24)
[2017-07-06] MEDS: Renal Vitamin 1 MG CAPSULE PO SCH (08:24)
[2017-07-06] MEDS: Calcium Acetate 667 MG CAPSULE PO SCH ×3 (08:24→16:40)
[2017-07-06] MEDS: Azithromycin 250 MG TABLET PO SCH (08:24)
[2017-07-06] MEDS: Diltiazem CD (24hr) 120 MG CAPSULE PO SCH (08:24)
[2017-07-06] MEDS: Nicotine 21 MG PATCH.TD24 TD SCH (08:25)
[2017-07-06] MEDS: predniSONE 20 MG TABLET PO SCH (08:25)
[2017-07-06] MEDS: Cholecalciferol (D-3) 1,000 UNIT TABLET PO SCH (08:25)
[2017-07-06] MEDS: Budesonide/Formoterol 80/4.5 MDI IH SCH ×2 (10:35→22:21)
[2017-07-06 14:03] LABS: Eosinophils % 0.1 %; Hemoglobin 7.8 g/dL (11.5-15.4); Immature Granulocytes % 0.5 % (0-4); Lymphocytes # 0.6 K/mcL (0.6-4.6); Lymphocytes % 7.9 %; Mean Platelet Volume 12.4 fL (9.4-12.4); Monocytes # 0.2 K/mcL (0.0-1.3); Monocytes % 2.4 %; Platelet Count 109 K/mcL (140-400); Red Cell Distribution Width 14.8 % (11.5-14.5); Segmented Neutrophils % 89.1 %
[2017-07-06 14:17] LABS: Calcium 7.2 mg/dL (8.6-10.8)
--- NOTE | 2017-07-06 15:03 | Internal Med Progress Note ---
<Adele Royal - Last Filed: 07/06/17 15:01> Date of Encounter: 07/06/17 Time of Encounter: 10:40 - Assessment and plan (1) Atypical pneumonia Current Visit: Yes Status: Acute Assessment and plan: Community-acquired pneumonia, CXR demonstrated bilateral interstitial infiltrates. Plan: - Continue Azithromycin and Ceftriaxone 2g - Continue breathing treatments Duoneb 3ml Q6 H - increased Guaifenesin 10ml PO Q4h - (2) COPD exacerbation Current Visit: Yes Status: Acute Assessment and plan: Patient is currently on prednisone 40 mg daily. DuoNeb treatments Q6hrs prn. (3) Hyperkalemia Current Visit: No Status: Acute Assessment and plan: 07/06, had to go to dialysis extra in order to decrease potassium. Today, given kayexalate 30mg PO, sodium bicarb 50meq, and Insulin 5 units with D50%. Patient' s potassium went from 5.6 to 5.0. Given another dose of Kayexalate 30mg. Recheck in the morning. (4) Thrombocytopenia Current Visit: Yes Status: Acute (5) Anemia in chronic kidney disease Current Visit: Yes Status: Chronic Assessment and plan: Hemoglobin of 7.2 with hematuria but hematuria is improving, baseline around 10 , history of anemia secondary to end-stage renal disease. Plan: - Type and Screened , repeat CBC at 2:00pm - Replace with PRBCs if hemoglobin falls below 7.0 - Qualifiers: Chronic kidney disease stage: on chronic dialysis Qualified Code(s): N18.6 - End stage renal disease; D63.1 - Anemia in chronic kidney disease; Z99.2 - Dependence on renal dialysis (6) Presence of urostomy Current Visit: Yes Status: Chronic Assessment and plan: Urology on board. Stable urostomy site without signs of infection. (7) ESRD (end stage renal disease) Current Visit: No Status: Chronic Assessment and plan: Currently on hemodialysis. Potassium was within normal limits after dialysis yesterday. Will possibly have to go to dialysis today as morning potassium was elevated. Will recheck labs at 2:00pm. (8) UTI (urinary tract infection) Current Visit: No Status: Acute Assessment and plan: Cultures are pending. Cultures were taken yesterday after starting her Rocephin and may have a false negative. Currently on Rocephin day 6 increased from 1g to 2 g on 07/05. Qualifiers: Urinary tract infection type: site unspecified Hematuria presence: without hematuria Qualified Code(s): N39.0 - Urinary tract infection, site not specified (9) Atrial fibrillation with rapid ventricular response Current Visit: Yes Status: Acute Assessment and plan: -New onset atrial fibrillation with RVR, this admission. -On cardizem CD 120mg. heart rate up to 140 during dialysis, patient receives 60mg Cardizem by mouth and heart rate switched to sinus rhythm at 80-90. Blood pressure stable, patient may require 180 mg Cardizem CD for appropriate rate control. -CHads 2vasc score 2 (age, Gender). Anticoagulation is recommended but patient continues to have gross hematourea and anticoagulation was held, urology following. -Echo with LVEF 55%, mild concentric left ventricular hypertrophy, atypical septal motion consistent with bundle branch block, moderately dilated left atrium, no significant valvular dysfunction, all garcia with normal motion. -Previous Echocardiogram from 11/09/2016 demonstrates a left ventricular ejection fraction of 60-65%, normal left ventricular size and systolic function , evidence of mild diastolic dysfunction of the left ventricle, normal right ventricular size and function, no significant valvular dysfunction, estimated RVSP of 21, no pulmonary hypertension. Patient is currently still on Cardizem 120ml QD by mouth. Rate is stable. (10) Colostomy care Current Visit: Yes Status: Acute Assessment and plan: Continue inpatient care of colostomy. Positively occult stool sable, but has an ileostomy so unsure whether bleeding is from the bladder or the intestines. GI was consulted. (11) Gross hematuria Current Visit: Yes Status: Acute Assessment and plan: Continue to hold anticoagulation with continued Hematuria - Urology following and believe hematuria to be due to infection. Hematuria is improving. Urology recommended continuing the antibiotics for a total of 2 weeks. He approves of switching to oral liquid. Follow-up in 2 weeks with urology. - Possible UTI induced hematuria since patient had bleeding prior to admission: Continue Rocephin for coverage - Also possible bleeding from intestine attached to urostomy- Gastroenterology on board - Continue to monitor H&H daily - Appreciate gift consultant recommendations. (12) DVT prophylaxis Current Visit: No Status: Acute Assessment and plan: IPCD. Currently actively bleeding. - Subjective Interval history: Patient is a 16-year-old female past medical history of urostomy, colostomy, COPD and, end-stage renal disease on hemodialysis presented to the ED with gross hematuria and was admitted for new onset A. fib with RVR, atypical pneumonia, and anemia. Today patient says her pain is a 7/10. She was nauseous from the Robitussin. Yesterday she began to have pain inferior her ostomy bag that is still there. She says her cough is worse and it is hard to bring phlegm up. Her urine output is still dark red/brown. - Constitutional Vitals: Temp Pulse Resp BP Pulse Ox 98 F 75 24 146/74 99 07/06/17 07:10 07/06/17 07:10 07/06/17 10:35 07/06/17 07:10 07/06/17 10:35 Exam: Constitutional: Alert, in mild acute distress with coughing, well nourished, well developed. Head: Normocephalic, atraumatic, normal contour and symmetric, no masses, lesions or scars Heart: Normal, regular rate and rhythm, no murmurs Lungs: + wheezes, rales, rhonchi, and crackles Abdomen: osteomy bag on R, colostomy back on L, scar midline, tenderness directly inferior to osteomy bag, Soft, nondistended, and no masses palpable, bowel sounds present and normal, no guarding or rigidity. Extremities: tenderness bilaterally all over, No clubbing, cyanosis, or edema, radial pulse +2/4, capillary refill <2sec. Skin: Skin warm and dry, no lesions, no rashes, no jaundice Neurologic: Cranial nerves II through XII grossly intact, no focal deficits, strength within normal limits in all extremities Psych: Cooperative with exam, good eye contact, cognitive function intact, judgment good insight good, speech clear, thought process logical, and goal directed Internal Medicine: Result - Labs CBC & Chem 7: 07/06/17 13:46 07/06/17 13:46 Labs: Short CBC 07/06/17 07/06/17 Range/Units 04:30 13:46 WBC 6.3 7.8 (4.3-11.1) K/mcL Hgb 7.2 L 7.8 L (11.5-15.4) g/dL Hct 24.0 L 26.0 L (35.3-44.9) % Plt Count 92 L 109 L (140-400) K/mcL Neutrophils # 5.0 7.0 (1.6-8.9) K/mcL [facility] 07/05/17 07/06/17 07/06/17 16:11 04:30 13:46 Sodium 140 140 Potassium 4.1 D 5.6 H D 5.0 H Chloride 101 99 Carbon Dioxide 28 27 BUN 45 H 52 H Creatinine 4.71 H 5.31 H Glucose 105 H 104 H Calcium 7.0 L 7.2 L - ABG Interpretation ABG results: PT/INR, D-dimer PT 16.6 Seconds (9.4-12.1) H 07/04/17 04:00 - VTE Documentation of Mechanical Device: Intermittent pneumatic compression device Consult Discharge Plan - Plan Referrals: Na Johansen, PHLEBOTOMY TECH [Primary Care Provider] - 07/09/17 11:00 am <Pasha Alexander - Last Filed: 07/06/17 16:53> Date of Encounter: 07/06/17 - Constitutional Vitals: Temp Pulse Resp BP Pulse Ox 98 F 75 24 146/74 99 07/06/17 07:10 07/06/17 07:10 07/06/17 10:35 07/06/17 07:10 07/06/17 10:35 Internal Medicine: Result - Labs CBC & Chem 7: 07/06/17 13:46 07/06/17 13:46 Labs: Short CBC 07/06/17 07/06/17 Range/Units 04:30 13:46 WBC 6.3 7.8 (4.3-11.1) K/mcL Hgb 7.2 L 7.8 L (11.5-15.4) g/dL Hct 24.0 L 26.0 L (35.3-44.9) % Plt Count 92 L 109 L (140-400) K/mcL Neutrophils # 5.0 7.0 (1.6-8.9) K/mcL [facility] 07/06/17 07/06/17 04:30 13:46 Sodium 140 140 Potassium 5.6 H D 5.0 H Chloride 101 99 Carbon Dioxide 28 27 BUN 45 H 52 H Creatinine 4.71 H 5.31 H Glucose 105 H 104 H Calcium 7.0 L 7.2 L - ABG Interpretation ABG results: PT/INR, D-dimer PT 16.6 Seconds (9.4-12.1) H 07/04/17 04:00 - Attending Attestation I have independently seen and examined this patient on 07/06/17, reviewed the EMR and discussed plan of care with the patient and resident physician 71 F, seen and evaluated at bedside She has a PMH of ESRD on HD, chronic diarrhea, colostomy, Urostomy, HTN She is being managed for new onset Afib with RVR, Hematuria from Urostomy, suspected UTI, COPDE, Moderate protein-calorie malnutrition, Suspected GIB She denies new complains Output from urostomy is clearer now Urine culture is pending Physical exam: Frail, chronically ill-looking, not in distress, speaks full sentences. Chest with R port, clean and dry, CTAB anterior auscultation, Heart sounds S1, S2 only, no m/g/r, Abdomen with L colostomy bag empty, serous output in urostomy on the R. No pedal edema Labs and Imaging Hb is stable, K 5.1. Urine culture is pending A/P Continue current management, type and screen, give kayexalate, incentive spirometry, continue antibiotics, repeat K p.m, type and screen, monitor Hb. Rest of details as in resident physician's documentation
[2017-07-07] MEDS: *HR* HYDROcodone/Acet 5/325 mg TABLET PO PRN ×4 (01:21→20:19)
[2017-07-07] MEDS: Ondansetron 4 MG/2 ML VIAL IVP PRN ×3 (03:05→20:31)
[2017-07-07] MEDS: Ipratropium/Albuterol Neb 3 ML IH SCH ×3 (04:29→15:58)
[2017-07-07 04:37] LABS: Hemoglobin 7.4 g/dL (11.5-15.4); Red Cell Distribution Width 14.6 % (11.5-14.5)
[2017-07-07 04:39] LABS: Immature Granulocytes % 0.8 % (0-4); Immature Platelets 7.1 % (1.1-6.1); Lymphocytes % 13.2 %; Mean Corpuscular HGB Conc 30.8 g/dL (31.6-35.5); Mean Corpuscular Hemoglobin 30.6 pg (28.0-33.3); Mean Corpuscular Volume 99.2 fL (83.0-100.0); Mean Platelet Volume 12.6 fL (9.4-12.4); Monocytes # 0.3 K/mcL (0.0-1.3); Monocytes % 3.4 %; Neutrophils # 6.1 K/mcL (1.6-8.9); Platelet Count 96 K/mcL (140-400); Red Blood Count 2.42 M/mcL (3.82-4.97); Segmented Neutrophils % 82.6 %
[2017-07-07 04:51] LABS: Calcium 6.6 mg/dL (8.6-10.8); Potassium 5.5 mEq/L (3.5-4.5)
[2017-07-07] MEDS ORDERED: 0.9 % Sodium Chloride 250 ML IVC PRN (07:00)
[2017-07-07] MEDS: predniSONE 20 MG TABLET PO SCH (08:07)
[2017-07-07] MEDS: Cholecalciferol (D-3) 1,000 UNIT TABLET PO SCH (08:07)
[2017-07-07] MEDS: Lactobacillus 1 EACH CAP.SPRINK PO SCH ×2 (08:07→20:18)
[2017-07-07] MEDS: Renal Vitamin 1 MG CAPSULE PO SCH (08:07)
[2017-07-07] MEDS: Diltiazem CD (24hr) 120 MG CAPSULE PO SCH (08:07)
[2017-07-07] MEDS: Calcium Acetate 667 MG CAPSULE PO SCH ×3 (08:07→17:24)
[2017-07-07] MEDS: Nicotine 21 MG PATCH.TD24 TD SCH (08:08)
[2017-07-07] MEDS: Azithromycin 250 MG TABLET PO SCH (08:08)
[2017-07-07] MEDS: Budesonide/Formoterol 80/4.5 MDI IH SCH (10:53)
--- NOTE | 2017-07-07 11:25 | Nephrology Progress Note ---
Date of Encounter: 07/07/17 Time of Encounter: 10:30 - Assessment and Plan (1) ESRD (end stage renal disease) Current Visit: Yes Status: Chronic HD today for clearance. LUE AVF ecchymosis from small infiltration of HD needles last Friday. HD RN is trying to cannulate her, but if not, then she may need either a fistulagram or a dialysis catheter. (2) Acute respiratory distress Current Visit: Yes Status: Acute Appreciate the hospitalists (3) Atypical pneumonia Current Visit: Yes Status: Acute See above (4) Gross hematuria Current Visit: Yes Status: Acute Via urostomy. Appreciate Urology (5) Anemia in chronic kidney disease Current Visit: Yes Status: Chronic Goal Hgb is 10-11 in CKD. Qualifiers: Chronic kidney disease stage: on chronic dialysis Qualified Code(s): N18.6 - End stage renal disease; D63.1 - Anemia in chronic kidney disease; Z99.2 - Dependence on renal dialysis Subjective Principal diagnosis: atypical pneumonia, ESRD on dialysis Interval history: Pt was s/e while on HD. She did not affirm N/V/D but did report gross hematuria via the urostomy and ongoing productive cough with rib pains from frequent coughing. Objective - Vital Signs Vital signs: Vital Signs Temp Pulse Resp BP Pulse Ox 07/07/17 07:41 98 F 71 16 153/75 100 07/07/17 04:29 20 98 07/06/17 22:22 19 99 07/06/17 20:00 70 17 141/91 97 07/06/17 16:46 18 98 Intake and Output 07/06/17 07/07/17 07/07/17 23:59 07:59 15:59 Intake Total 200 / 200 460 / 460 480 / 480 Output Total 300 / 300 425 / 425 Balance -100 / -100 35 / 35 480 / 480 Intake: IV Fluids 100 / 100 Rocephin 2,000 MG In 100 / 100 Dextrose 5% (Minibag+) 100 ML 100 ML @ 200 mls/ hr IVPB DAILY [facility] Rx#: [id number] Oral 200 / 200 360 / 360 480 / 480 Output: Urine 50 / 50 0 / 0 Stool 250 / 250 425 / 425 Other: Meal Breakfast Percent of Meal Consumed 100% Stool Size Moderate Moderate Stool Consistency liquid liquid formed formed Stool Color Brown Brown Weight 66.1 kg Patient Weight 07/07/17 23:59 Weight 66.1 kg - General Appearance Exam: General appearance: Present: well-developed, appears started age, chronically ill, frail EENT: Present: ATNC, PERRL Neck: Present: supple Respiratory: Present: rales, course breath sounds, rhonchi Cardiology: Present: no edema, normal S1, normal S2 Dialysis Vascular Access: Arteriovenous Fistula (Left Upper Extremity) thrill: Yes bruit: Yes Gastrointestinal: Present: normoactive bowel sounds, no guarding Additional Comments: Ileostomy and Urostomy with dark burgundy colored appearing urine in the urostomy bag. Integumentary: Present: warm and dry Neurologic: Present: no focal deficit Musculoskeletal: Present: no deformities, no erythema, no cyanosis Psychiatric: Present: mood/affect appropriate, cooperative - Lab 07/09/17 08:35 07/09/17 04:05 Most recent lab results Calcium 6.6 mg/dL (8.6-10.8) L 07/07/17 04:20 Phosphorus 14.9 mg/dL (2.3-4.7) H 06/30/17 14:09 Magnesium 2.3 mg/dL (1.6-2.6) 07/01/17 05:30 - VTE Documentation of Mechanical Device: Intermittent pneumatic compression device Consult Discharge Plan - Plan Referrals: Na Johansen CNP [Primary Care Provider] -
--- NOTE | 2017-07-07 11:34 | Internal Med Progress Note ---
<Adele Royal - Last Filed: 07/07/17 17:24> Date of Encounter: 07/07/17 Time of Encounter: 11:00 - Assessment and plan (1) Atypical pneumonia Current Visit: Yes Status: Acute Assessment and plan: Community-acquired pneumonia, CXR demonstrated bilateral interstitial infiltrates. Plan: - Continue Azithromycin and Ceftriaxone 2g - Continue breathing treatments Duoneb 3ml Q6 H - increased Guaifenesin 10ml PO Q4h - added Tessalon 200mg TID prn (2) COPD exacerbation Current Visit: Yes Status: Acute Assessment and plan: Patient is currently on prednisone 40 mg daily. DuoNeb treatments Q6hrs prn. (3) Hyperkalemia Current Visit: No Status: Acute Assessment and plan: 07/06, had to go to dialysis extra in order to decrease potassium. Today K= 5.5, but patient is going to dialysis today. Will recheck in the morning. (4) Thrombocytopenia Current Visit: Yes Status: Chronic Assessment and plan: chronic thrombocytopenia (5) Anemia in chronic kidney disease Current Visit: Yes Status: Chronic Assessment and plan: Hemoglobin of 7.4 with hematuria but hematuria is improving, baseline around Hbg =10, history of anemia secondary to end-stage renal disease. Plan: - Type and Screened - Replace with PRBCs if hemoglobin falls below 7.0 - Qualifiers: Chronic kidney disease stage: on chronic dialysis Qualified Code(s): N18.6 - End stage renal disease; D63.1 - Anemia in chronic kidney disease; Z99.2 - Dependence on renal dialysis (6) Presence of urostomy Current Visit: Yes Status: Chronic Assessment and plan: Urology on board. Stable urostomy site without signs of infection. Urine is douglas yellow, gross hematuria resolving. (7) ESRD (end stage renal disease) Current Visit: No Status: Chronic (8) UTI (urinary tract infection) Current Visit: No Status: Acute Assessment and plan: Cultures are pending. Cultures were taken yesterday after starting her Rocephin and may have a false negative. Currently on Rocephin day 6 increased from 1g to 2 g on 07/05. Most likely cause of hematuria. Hematuria resolving. Qualifiers: Urinary tract infection type: site unspecified Hematuria presence: without hematuria Qualified Code(s): N39.0 - Urinary tract infection, site not specified (9) Atrial fibrillation with rapid ventricular response Current Visit: Yes Status: Acute Assessment and plan: -New onset atrial fibrillation with RVR, this admission. -On cardizem CD 120mg. heart rate up to 140 during dialysis, patient receives 60mg Cardizem by mouth and heart rate switched to sinus rhythm at 80-90. Blood pressure stable, patient may require 180 mg Cardizem CD for appropriate rate control. -CHads 2vasc score 2 (age, Gender). Anticoagulation is recommended but patient continues to have gross hematourea and anticoagulation was held, urology following. -Echo with LVEF 55%, mild concentric left ventricular hypertrophy, atypical septal motion consistent with bundle branch block, moderately dilated left atrium, no significant valvular dysfunction, all garcia with normal motion. -Previous Echocardiogram from 11/09/2016 demonstrates a left ventricular ejection fraction of 60-65%, normal left ventricular size and systolic function , evidence of mild diastolic dysfunction of the left ventricle, normal right ventricular size and function, no significant valvular dysfunction, estimated RVSP of 21, no pulmonary hypertension. Patient is currently still on Cardizem 120ml QD by mouth. Rate is stable. (10) Colostomy care Current Visit: Yes Status: Acute Assessment and plan: Continue inpatient care of colostomy. Positively occult stool sable, but has an ileostomy so unsure whether bleeding is from the bladder or the intestines. GI was consulted. (11) Gross hematuria Current Visit: Yes Status: Acute Assessment and plan: Continue to hold anticoagulation with continued Hematuria - Urology following and believe hematuria to be due to infection. Hematuria is improving. Urology recommended continuing the antibiotics for a total of 2 weeks. He approves of switching to oral liquid. Follow-up in 2 weeks with urology. - Possible UTI induced hematuria since patient had bleeding prior to admission: Continue Rocephin for coverage - Also possible bleeding from intestine attached to urostomy- Gastroenterology on board - Continue to monitor H&H daily - Appreciate financial services education consultant recommendations. - Today urine improving as color was yellow, not like previous days of being brown/redish. (12) DVT prophylaxis Current Visit: No Status: Acute Assessment and plan: IPCD. Currently actively bleeding. - Subjective Interval history: Patient is a 16-year-old female past medical history of urostomy, colostomy, COPD and, end-stage renal disease on hemodialysis presented to the ED with gross hematuria and was admitted for new onset A. fib with RVR, atypical pneumonia, and anemia. She feels alittle better today. Patient states that she is having burning in the suprapubic area that started today. She says her cough is worse and it is hard to bring phlegm up. Her urine output is clearing up. - Constitutional Vitals: Temp Pulse Resp BP Pulse Ox 98 F 71 16 153/75 100 07/07/17 07:41 07/07/17 07:41 07/07/17 07:41 07/07/17 07:41 07/07/17 07:41 Exam: Constitutional: Alert, in mild acute distress with coughing, well nourished, well developed. Head: Normocephalic, atraumatic, normal contour and symmetric, no masses, lesions or scars Heart: Normal, regular rate and rhythm, no murmurs Lungs: + wheezes, rales, rhonchi, and crackles Abdomen: osteomy bag on R, colostomy back on L, scar midline, tenderness directly inferior to osteomy bag, Soft, nondistended, and no masses palpable, bowel sounds present and normal, no guarding or rigidity. Extremities: tenderness of LE bilaterally diffusely, L upper humerous with AV fistula with thrill palpated. No clubbing, cyanosis, or edema, radial pulse +2/ 4, capillary refill <2sec. Skin: Central port on R subclavian, Skin warm and dry, no lesions, no rashes, no jaundice Neurologic: Cranial nerves II through XII grossly intact, no focal deficits, strength within normal limits in all extremities Psych: Cooperative with exam, good eye contact, cognitive function intact, judgment good insight good, speech clear, thought process logical, and goal directed Internal Medicine: Result - Labs CBC & Chem 7: 07/07/17 04:20 07/07/17 04:20 Labs: Short CBC 07/06/17 07/07/17 Range/Units 13:46 04:20 WBC 7.8 7.4 (4.3-11.1) K/mcL Hgb 7.8 L 7.4 L (11.5-15.4) g/dL Hct 26.0 L 24.0 L (35.3-44.9) % Plt Count 109 L 96 L (140-400) K/mcL Neutrophils # 7.0 6.1 (1.6-8.9) K/mcL [facility] 07/06/17 07/07/17 13:46 04:20 Sodium 140 138 Potassium 5.0 H 5.5 H Chloride 99 98 Carbon Dioxide 27 27 BUN 52 H 65 H Creatinine 5.31 H 6.23 H Glucose 104 H 109 H Calcium 7.2 L 6.6 L - ABG Interpretation ABG results: PT/INR, D-dimer PT 16.6 Seconds (9.4-12.1) H 07/04/17 04:00 - VTE Documentation of Mechanical Device: Intermittent pneumatic compression device Consult Discharge Plan - Plan Referrals: Na Johansen, INDUSTRI[employer] ME[employer]IC [Primary Care Provider] - 07/09/17 11:00 am <Pasah Alexander - Last Filed: 07/07/17 17:36> Date of Encounter: 07/07/17 - Constitutional Vitals: Temp Pulse Resp BP Pulse Ox 98.3 F 76 16 135/87 95 07/07/17 15:25 07/07/17 15:25 07/07/17 15:25 07/07/17 15:25 07/07/17 15:25 Internal Medicine: Result - Labs CBC & Chem 7: 07/07/17 04:20 07/07/17 04:20 Labs: Short CBC 07/07/17 Range/Units 04:20 WBC 7.4 (4.3-11.1) K/mcL Hgb 7.4 L (11.5-15.4) g/dL Hct 24.0 L (35.3-44.9) % Plt Count 96 L (140-400) K/mcL Neutrophils # 6.1 (1.6-8.9) K/mcL [facility] 07/07/17 04:20 Sodium 138 Potassium 5.5 H Chloride 98 Carbon Dioxide 27 BUN 65 H Creatinine 6.23 H Glucose 109 H Calcium 6.6 L - ABG Interpretation ABG results: PT/INR, D-dimer PT 16.6 Seconds (9.4-12.1) H 07/04/17 04:00 - Attending Attestation I have independently seen and examined this patient on 07/07/17, reviewed the EMR and discussed plan of care with the patient and resident physician 71 F, seen and evaluated at bedside during HD She has a PMH of ESRD on HD, chronic diarrhea, colostomy, Urostomy, HTN She is being managed for new onset Afib with RVR, Hematuria from Urostomy, suspected UTI, COPDE, Moderate protein-calorie malnutrition, Suspected GIB She denies new complains Output from urostomy remains clear, sputum culture is not contributory, she is stable clinically Physical exam: Frail, chronically ill-looking, not in distress, speaks full sentences. Chest with R port, clean and dry, CTAB anterior auscultation, Heart sounds S1, S2 only, no m/g/r, Abdomen with L colostomy bag empty, serous output in urostomy on the R. No pedal edema Labs and Imaging Hb is stable, K 5.5. Urine culture is pending A/P Continue current management, for HD today. PT/OT evaluation today Rest of details as in resident physician's documentation
[2017-07-07] MEDS: Benzonatate 100 MG CAPSULE PO PRN (20:18)
[2017-07-08] MEDS: Budesonide/Formoterol 80/4.5 MDI IH SCH ×3 (00:23→21:45)
[2017-07-08] MEDS: Ipratropium/Albuterol Neb 3 ML IH SCH ×5 (00:23→21:45)
[2017-07-08] MEDS: *HR* HYDROcodone/Acet 5/325 mg TABLET PO PRN ×4 (01:38→19:43)
[2017-07-08] MEDS: Ondansetron 4 MG/2 ML VIAL IVP PRN ×2 (06:11→15:28)
[2017-07-08] MEDS: Benzonatate 100 MG CAPSULE PO PRN ×2 (06:11→19:43)
[2017-07-08 06:26] LABS: Hematocrit 24.5 % (35.3-44.9); Hemoglobin 7.5 g/dL (11.5-15.4); Immature Granulocytes % 0.5 % (0-4); Lymphocytes # 0.8 K/mcL (0.6-4.6); Lymphocytes % 8.1 %; Mean Corpuscular HGB Conc 30.6 g/dL (31.6-35.5); Mean Corpuscular Hemoglobin 30.1 pg (28.0-33.3); Mean Corpuscular Volume 98.4 fL (83.0-100.0); Mean Platelet Volume 12.8 fL (9.4-12.4); Monocytes # 0.2 K/mcL (0.0-1.3); Monocytes % 1.8 %; Neutrophils # 8.5 K/mcL (1.6-8.9); Platelet Count 112 K/mcL (140-400); Red Blood Count 2.49 M/mcL (3.82-4.97); Red Cell Distribution Width 14.6 % (11.5-14.5); Segmented Neutrophils % 89.6 %
[2017-07-08 06:33] LABS: Calcium 6.5 mg/dL (8.6-10.8)
--- NOTE | 2017-07-08 08:16 | Electrocardiograph Report ---
[place] [id number] Test Date: 2017-07-05 Pat Name: Vannessa Parra Department: 111 Room: [facility] Gender: F Alignment Technician: Juan : 1945 Requested By: Helio Jeter Order Number: [id number] Reading MD: Angelica Germain Measurements Intervals Boelus Rate: 80 P: 53 CA: 127 QRS: 11 QRSD: 94 T: 28 QT: 380 QTc: 416 Interpretive Statements SINUS RHYTHM NONSPECIFIC T-WAVE ABNORMALITY Electronically Signed On 07-07-2017 11:09:08 EDT by Angelica Germain
[2017-07-08] MEDS: Calcium Acetate 667 MG CAPSULE PO SCH ×3 (08:56→16:53)
[2017-07-08] MEDS: Renal Vitamin 1 MG CAPSULE PO SCH (08:56)
[2017-07-08] MEDS: Cholecalciferol (D-3) 1,000 UNIT TABLET PO SCH (08:56)
[2017-07-08] MEDS: predniSONE 20 MG TABLET PO SCH (08:56)
[2017-07-08] MEDS: Nicotine 21 MG PATCH.TD24 TD SCH (08:56)
[2017-07-08] MEDS: Diltiazem CD (24hr) 120 MG CAPSULE PO SCH (08:56)
[2017-07-08] MEDS: Lactobacillus 1 EACH CAP.SPRINK PO SCH ×2 (08:56→20:37)
[2017-07-08] MEDS: Levofloxacin 500 MG/100 ML 500 MG/100 ML BAG IVPB SCH (08:57)
[2017-07-08] MEDS: Acetaminophen 325 MG TABLET PO PRN ×2 (08:58→15:24)
--- NOTE | 2017-07-08 09:25 | Nephrology Progress Note ---
Date of Encounter: 07/08/17 Time of Encounter: 09:22 - Assessment and Plan (1) ESRD (end stage renal disease) Current Visit: Yes Status: Chronic Plan for dialysis tomorrow Continue renal diet Avoid nephrotoxins if possible. (2) Atrial fibrillation with rapid ventricular response Current Visit: Yes Status: Acute Rate stable per primary team (3) Anemia in chronic kidney disease Current Visit: Yes Status: Chronic Hgb 7.5 Goal hgb 10-11 Transfuse per parameters Qualifiers: Chronic kidney disease stage: on chronic dialysis Qualified Code(s): N18.6 - End stage renal disease; D63.1 - Anemia in chronic kidney disease; Z99.2 - Dependence on renal dialysis (4) Hypocalcemia Current Visit: No Status: Acute Ca+ 6.5 Albumin 2.8 On Phoslo which is a calcium based binder Subjective Principal diagnosis: atypical pneumonia, ESRD on dialysis Interval history: Patient seen and examined. States she is still not feeling well. Objective - Vital Signs Vital signs: Vital Signs Temp Pulse Resp BP Pulse Ox 07/08/17 07:00 97.9 F 74 17 156/74 98 07/08/17 05:06 16 99 07/08/17 03:45 98.0 F 71 18 150/79 97 07/07/17 21:21 98.4 F 79 16 153/75 99 07/07/17 15:58 16 99 07/07/17 15:25 98.3 F 76 16 135/87 95 07/07/17 14:45 98.8 F 18 136/71 07/07/17 14:30 127/63 07/07/17 14:00 133/55 07/07/17 13:30 153/75 07/07/17 13:00 145/72 07/07/17 12:30 137/56 07/07/17 12:00 146/77 07/07/17 11:30 97.9 F 20 152/74 Intake and Output 07/07/17 07/08/17 07/08/17 23:59 07:59 15:59 Intake Total 250 / 250 240 / 240 Output Total 1600 / 1600 Balance 250 / 250 -1360 / -1360 Intake: Oral 250 / 250 240 / 240 Output: Stool 1600 / 1600 Other: # Voids 1 Weight 66.9 kg Patient Weight 07/08/17 23:59 Weight 66.9 kg - General Appearance General appearance: Present: cachectic, chronically ill, frail EENT: Present: ATNC, mucous membranes moist, hearing intact, vision intact Neck: Present: supple Respiratory: Present: wheezing, rhonchi Cardiology: Present: no edema Dialysis Vascular Access: Arteriovenous Fistula Gastrointestinal: Present: no guarding Integumentary: Present: warm and dry Neurologic: Present: alert and oriented x3 - Lab 07/08/17 06:00 07/08/17 06:00 Most recent lab results Calcium 6.5 mg/dL (8.6-10.8) L 07/08/17 06:00 Phosphorus 14.9 mg/dL (2.3-4.7) H 06/30/17 14:09 Magnesium 2.3 mg/dL (1.6-2.6) 07/01/17 05:30 - VTE Documentation of Mechanical Device: Intermittent pneumatic compression device Consult Discharge Plan - Plan Referrals: Na Johansen CNP [Primary Care Provider] - 07/09/17 11:00 am
--- NOTE | 2017-07-08 10:19 | Internal Med Progress Note ---
<Adele Royal - Last Filed: 07/08/17 21:06> Date of Encounter: 07/08/17 Time of Encounter: 08:15 - Assessment and plan (1) Atypical pneumonia Current Visit: Yes Status: Acute Assessment and plan: Community-acquired pneumonia, CXR demonstrated bilateral interstitial infiltrates. Sputum culture prelim showed gram negative rods therefore will stop Ceftriaxone and Azythromycin and start Levoquin for possible Pseudomonas coverage. Plan: - d/c Cef and Azythro , started Levoquin - Continue breathing treatments Duoneb 3ml Q6 H - increased Guaifenesin 10ml PO Q4h - added Tessalon 200mg TID prn (2) COPD exacerbation Current Visit: Yes Status: Acute Assessment and plan: Patient is currently on prednisone 40 mg daily. DuoNeb treatments Q6hrs prn. (3) Hyperkalemia Current Visit: No Status: Acute Assessment and plan: hyperkalemia at 5.0 today. Patient given Kayexalate 30mg. Will recheck in the morning. (4) Thrombocytopenia Current Visit: Yes Status: Chronic Assessment and plan: chronic thrombocytopenia (5) Anemia in chronic kidney disease Current Visit: Yes Status: Chronic Assessment and plan: Hemoglobin of 7.5 with hematuria but hematuria is improving, baseline around Hbg =10, history of anemia secondary to end-stage renal disease. Plan: - Type and Screened - Replace with PRBCs if hemoglobin falls below 7.0 - Qualifiers: Chronic kidney disease stage: on chronic dialysis Qualified Code(s): N18.6 - End stage renal disease; D63.1 - Anemia in chronic kidney disease; Z99.2 - Dependence on renal dialysis (6) Presence of urostomy Current Visit: Yes Status: Chronic Assessment and plan: Urology on board. Stable urostomy site without signs of infection. Urine is douglas yellow, gross hematuria resolving. (7) ESRD (end stage renal disease) Current Visit: No Status: Chronic Assessment and plan: Currently on hemodialysis M, W, F. Hyperkalemia currently. (8) UTI (urinary tract infection) Current Visit: No Status: Acute Assessment and plan: Cultures are pending. Cultures were taken after starting her on Ceftriaxone and may have a false negative. UTI Most likely cause of hematuria. Hematuria resolving. Qualifiers: Urinary tract infection type: site unspecified Hematuria presence: without hematuria Qualified Code(s): N39.0 - Urinary tract infection, site not specified (9) Atrial fibrillation with rapid ventricular response Current Visit: Yes Status: Acute (10) Colostomy care Current Visit: Yes Status: Acute (11) Gross hematuria Current Visit: Yes Status: Acute (12) DVT prophylaxis Current Visit: No Status: Acute - Subjective Interval history: Patient is a 16-year-old female past medical history of urostomy, colostomy, COPD and, end-stage renal disease on hemodialysis presented to the ED with gross hematuria and was admitted for new onset A. fib with RVR, atypical pneumonia, and anemia. She says she is still doing rough. She is having pain in her chest when see breaths still and is requesting more pain medications but I informed her that she is not using the Tylenol that is ordered and she said she would today. Her urine output is clearing up. - Constitutional Vitals: Temp Pulse Resp BP Pulse Ox 97.9 F 74 17 156/74 98 07/08/17 07:00 07/08/17 07:00 07/08/17 07:00 07/08/17 07:00 07/08/17 07:00 Exam: Constitutional: Alert, in mild acute distress with coughing, well nourished, well developed. Head: Normocephalic, atraumatic, normal contour and symmetric, no masses, lesions or scars Heart: Normal, regular rate and rhythm, no murmurs Lungs: + wheezes, rales, rhonchi, and crackles Abdomen: osteomy bag on R, colostomy back on L, scar midline, tenderness directly inferior to osteomy bag, Soft, nondistended, and no masses palpable, bowel sounds present and normal, no guarding or rigidity. Extremities: tenderness of LE bilaterally diffusely, L upper humerous with AV fistula. No clubbing, cyanosis, or edema, radial pulse +2/4, capillary refill < 2sec. Skin: Central port on R subclavian, Skin warm and dry, no lesions, no rashes, no jaundice Neurologic: Cranial nerves II through XII grossly intact, no focal deficits, strength within normal limits in all extremities Psych: Cooperative with exam, good eye contact, cognitive function intact, judgment good insight good, speech clear, thought process logical, and goal directed Internal Medicine: Result - Labs CBC & Chem 7: 07/08/17 06:00 07/08/17 06:00 Labs: Short CBC 07/08/17 Range/Units 06:00 WBC 9.5 (4.3-11.1) K/mcL Hgb 7.5 L (11.5-15.4) g/dL Hct 24.5 L (35.3-44.9) % Plt Count 112 L (140-400) K/mcL Neutrophils # 8.5 (1.6-8.9) K/mcL [facility] 07/08/17 06:00 Sodium 141 Potassium 5.0 H Chloride 100 Carbon Dioxide 24 BUN 64 H Creatinine 6.11 H Glucose 124 H Calcium 6.5 L - ABG Interpretation ABG results: PT/INR, D-dimer PT 16.6 Seconds (9.4-12.1) H 07/04/17 04:00 - VTE Documentation of Mechanical Device: Intermittent pneumatic compression device Consult Discharge Plan - Plan Referrals: Na Johansen, P[employer]ETERIE TABLE ASSEMBLER [Primary Care Provider] - 07/09/17 11:00 am <Pasha Alexander - Last Filed: 07/08/17 21:38> Date of Encounter: 07/08/17 - Constitutional Vitals: Temp Pulse Resp BP Pulse Ox 98.1 F 93 20 143/75 97 07/08/17 19:35 07/08/17 19:35 07/08/17 19:35 07/08/17 19:35 07/08/17 15:28 Internal Medicine: Result - Labs CBC & Chem 7: 07/08/17 06:00 07/08/17 06:00 Labs: Short CBC 07/08/17 Range/Units 06:00 WBC 9.5 (4.3-11.1) K/mcL Hgb 7.5 L (11.5-15.4) g/dL Hct 24.5 L (35.3-44.9) % Plt Count 112 L (140-400) K/mcL Neutrophils # 8.5 (1.6-8.9) K/mcL [facility] 07/08/17 06:00 Sodium 141 Potassium 5.0 H Chloride 100 Carbon Dioxide 24 BUN 64 H Creatinine 6.11 H Glucose 124 H Calcium 6.5 L - ABG Interpretation ABG results: PT/INR, D-dimer PT 16.6 Seconds (9.4-12.1) H 07/04/17 04:00 - Attending Attestation Patient seen and examined at bedside New event today-GNR in sputum, changed a/b to levaquin. Patient refused PTOT eval Await final sputum cultures Physical exam is unchanged. Rest of details as in resident's documentation
[2017-07-09] MEDS: Ondansetron 4 MG/2 ML VIAL IVP PRN ×2 (01:04→16:23)
[2017-07-09] MEDS: *HR* HYDROcodone/Acet 5/325 mg TABLET PO PRN ×5 (01:04→21:31)
[2017-07-09] MEDS: Ipratropium/Albuterol Neb 3 ML IH SCH ×4 (03:53→22:05)
[2017-07-09 04:33] LABS: Hematocrit 21.4 % (35.3-44.9); Hemoglobin 6.6 g/dL (11.5-15.4); Immature Granulocytes % 0.4 % (0-4); Lymphocytes # 0.8 K/mcL (0.6-4.6); Lymphocytes % 9.9 %; Mean Corpuscular HGB Conc 30.8 g/dL (31.6-35.5); Mean Corpuscular Hemoglobin 30.1 pg (28.0-33.3); Mean Corpuscular Volume 97.7 fL (83.0-100.0); Mean Platelet Volume 11.9 fL (9.4-12.4); Monocytes # 0.2 K/mcL (0.0-1.3); Monocytes % 2.3 %; Neutrophils # 6.8 K/mcL (1.6-8.9); Red Blood Count 2.19 M/mcL (3.82-4.97); Red Cell Distribution Width 14.2 % (11.5-14.5); Segmented Neutrophils % 87.4 %
[2017-07-09 04:34] LABS: Platelet Count 88 K/mcL (140-400)
[2017-07-09 04:46] LABS: Calcium 6.3 mg/dL (8.6-10.8)
[2017-07-09] MEDS: Benzonatate 100 MG CAPSULE PO PRN (06:15)
[2017-07-09] MEDS ORDERED: 0.9 % Sodium Chloride 250 ML IVC PRN (08:32)
[2017-07-09] MEDS: predniSONE 20 MG TABLET PO SCH (08:39)
[2017-07-09] MEDS: Renal Vitamin 1 MG CAPSULE PO SCH (08:39)
[2017-07-09] MEDS: Cholecalciferol (D-3) 1,000 UNIT TABLET PO SCH (08:39)
[2017-07-09] MEDS: Acetaminophen 325 MG TABLET PO PRN ×2 (08:39→14:47)
[2017-07-09] MEDS: Calcium Acetate 667 MG CAPSULE PO SCH ×3 (08:39→16:22)
[2017-07-09] MEDS: Nicotine 21 MG PATCH.TD24 TD SCH (08:40)
[2017-07-09] MEDS: Lactobacillus 1 EACH CAP.SPRINK PO SCH ×2 (08:43→21:31)
[2017-07-09] MEDS ORDERED: 0.9 % Sodium Chloride 250 ML ONE ×2 (09:58→12:13)
[2017-07-09] MEDS: Budesonide/Formoterol 80/4.5 MDI IH SCH ×2 (10:21→22:05)
--- NOTE | 2017-07-09 10:32 | Nephrology Progress Note ---
Date of Encounter: 07/09/17 Time of Encounter: 10:31 - Assessment and Plan (1) ESRD (end stage renal disease) Current Visit: Yes Status: Chronic HD today for clearance. Hgb is now <7, so will arrange for a transfusion. Adding Aranesp while hospitalized, since she typically received EPO at the [facility] outpatient dialysis unit. Next HD is planned for Friday. (2) Acute respiratory distress Current Visit: Yes Status: Acute Appreciate the hospitalists (3) Atypical pneumonia Current Visit: Yes Status: Acute See above (4) Gross hematuria Current Visit: Yes Status: Acute Via urostomy. Appreciate Urology (5) Anemia in chronic kidney disease Current Visit: Yes Status: Chronic Goal Hgb is 10-11 in CKD. Qualifiers: Chronic kidney disease stage: on chronic dialysis Qualified Code(s): N18.6 - End stage renal disease; D63.1 - Anemia in chronic kidney disease; Z99.2 - Dependence on renal dialysis Subjective Principal diagnosis: atypical pneumonia, ESRD on dialysis Interval history: Pt was s/e while on HD. She did not affirm N/V/D but did report gross hematuria via the urostomy and ongoing productive cough with rib pains from frequent coughing. Objective - Vital Signs Vital signs: Vital Signs Temp Pulse Resp BP Pulse Ox 07/09/17 07:30 97.8 F 86 19 131/69 96 07/09/17 03:56 18 98 07/09/17 03:51 97.9 F 86 20 151/81 98 07/08/17 23:15 98.2 F 76 16 140/66 07/08/17 21:45 16 97 07/08/17 20:30 97 07/08/17 19:35 98.1 F 93 20 143/75 07/08/17 15:28 20 97 07/08/17 15:00 98.1 F 73 18 153/72 97 07/08/17 10:33 16 97 Intake and Output 07/08/17 07/09/17 07/09/17 23:59 07:59 15:59 Intake Total 240 / 240 Output Total 500 / 500 300 / 300 Balance -260 / -260 -300 / -300 Intake: Oral 240 / 240 Output: Stool 500 / 500 300 / 300 Other: Meal Dinner Percent of Meal Consumed 100% Stool Size Small Stool Consistency loose loose Stool Characteristics Normal for Patient Seedy Stool Color Brown Brown Weight 70.5 kg Patient Weight 07/09/17 23:59 Weight 70.5 kg - General Appearance Exam: General appearance: Present: well-developed, appears started age, chronically ill, frail EENT: Present: ATNC, PERRL Neck: Present: supple Respiratory: Present: rales, course breath sounds, rhonchi Cardiology: Present: no edema, normal S1, normal S2 Dialysis Vascular Access: Arteriovenous Fistula (Left Upper Extremity) thrill: Yes bruit: Yes Gastrointestinal: Present: normoactive bowel sounds, no guarding Additional Comments: Ileostomy and Urostomy with dark burgundy colored appearing urine in the urostomy bag. Integumentary: Present: warm and dry Neurologic: Present: no focal deficit Musculoskeletal: Present: no deformities, no erythema, no cyanosis Psychiatric: Present: mood/affect appropriate, cooperative - Lab 07/09/17 08:35 07/09/17 04:05 Most recent lab results Calcium 6.3 mg/dL (8.6-10.8) L 07/09/17 04:05 Phosphorus 14.9 mg/dL (2.3-4.7) H 06/30/17 14:09 Magnesium 2.3 mg/dL (1.6-2.6) 07/01/17 05:30 - VTE Documentation of Mechanical Device: Intermittent pneumatic compression device Consult Discharge Plan - Plan Referrals: Na Johansen, COMBINED RAIL OPERATOR [Primary Care Provider] -
[2017-07-09] MEDS: Diltiazem CD (24hr) 120 MG CAPSULE PO SCH (14:47)
--- NOTE | 2017-07-09 15:15 | Internal Med Progress Note ---
<Adele Royal - Last Filed: 07/09/17 15:10> Date of Encounter: 07/09/17 Time of Encounter: 10:40 - Assessment and plan (1) Atypical pneumonia Current Visit: Yes Status: Acute Assessment and plan: Community-acquired pneumonia, CXR demonstrated bilateral interstitial infiltrates. Sputum culture final showed psuedomonas sensitive to Levoquin. Plan: - d/c Cef and Azythro , started Levoquin 07/08 - Continue breathing treatments Duoneb 3ml Q6 H - increased Guaifenesin 10ml PO Q4h - Tessalon 200mg TID prn (2) COPD exacerbation Current Visit: Yes Status: Acute Assessment and plan: Patient is currently on prednisone 40 mg daily. DuoNeb treatments Q6hrs prn. (3) Hyperkalemia Current Visit: No Status: Acute Assessment and plan: hyperkalemia at 5.0 today. Patient has dialysis today. Will recheck in the morning. (4) Thrombocytopenia Current Visit: Yes Status: Chronic Assessment and plan: chronic thrombocytopenia (5) Anemia in chronic kidney disease Current Visit: Yes Status: Chronic Assessment and plan: Hemoglobin of 6.6 today with resolved gross hematuria, most likely due to HD due to no other apparent cause of bleeding or new symptoms, baseline around Hbg= 10, history of anemia secondary to end-stage renal disease. Plan: - Type and Screened. Given 1 unit of pRBC - Replace with PRBCs if hemoglobin falls below 7.0 - Qualifiers: Chronic kidney disease stage: on chronic dialysis Qualified Code(s): N18.6 - End stage renal disease; D63.1 - Anemia in chronic kidney disease; Z99.2 - Dependence on renal dialysis (6) Presence of urostomy Current Visit: Yes Status: Chronic Assessment and plan: Urology on board. Stable urostomy site without signs of infection. Urine is douglas yellow, gross hematuria resolved. (7) ESRD (end stage renal disease) Current Visit: No Status: Chronic Assessment and plan: Currently on hemodialysis M, W, F. (8) UTI (urinary tract infection) Current Visit: No Status: Acute Assessment and plan: Cultures are pending. Cultures were taken after starting her on Ceftriaxone and may have a false negative. UTI Most likely cause of hematuria. Hematuria resolving. Rocephin treatment completed. Qualifiers: Urinary tract infection type: site unspecified Hematuria presence: without hematuria Qualified Code(s): N39.0 - Urinary tract infection, site not specified (9) Atrial fibrillation with rapid ventricular response Current Visit: Yes Status: Acute Assessment and plan: -New onset atrial fibrillation with RVR, this admission. -On cardizem CD 120mg. heart rate up to 140 during dialysis, patient receives 60mg Cardizem by mouth and heart rate switched to sinus rhythm at 80-90. Blood pressure stable, patient may require 180 mg Cardizem CD for appropriate rate control. -CHads 2vasc score 2 (age, Gender). Anticoagulation is recommended but patient continues to have gross hematourea and anticoagulation was held, urology following. -Echo with LVEF 55%, mild concentric left ventricular hypertrophy, atypical septal motion consistent with bundle branch block, moderately dilated left atrium, no significant valvular dysfunction, all garcia with normal motion. -Previous Echocardiogram from 11/09/2016 demonstrates a left ventricular ejection fraction of 60-65%, normal left ventricular size and systolic function , evidence of mild diastolic dysfunction of the left ventricle, normal right ventricular size and function, no significant valvular dysfunction, estimated RVSP of 21, no pulmonary hypertension. Patient is currently still on Cardizem 120ml QD by mouth. Rate is stable. (10) Colostomy care Current Visit: Yes Status: Acute Assessment and plan: Continue inpatient care of colostomy. Positively occult stool sable, but has an ileostomy so unsure whether bleeding is from the bladder or the intestines. GI was consulted. (11) Gross hematuria Current Visit: Yes Status: Acute Assessment and plan: Continue to hold anticoagulation with continued Hematuria - Urology following and believe hematuria to be due to infection. Hematuria is improving. Urology recommended continuing the antibiotics for a total of 2 weeks. He approves of switching to oral liquid. Follow-up in 2 weeks with urology. - Possible UTI induced hematuria since patient had bleeding prior to admission: Continue Rocephin for coverage - Also possible bleeding from intestine attached to urostomy- Gastroenterology on board - Continue to monitor H&H daily - Appreciate technology sales consultant recommendations. - Today urine improving as color was yellow, not like previous days of being brown/redish. (12) DVT prophylaxis Current Visit: No Status: Acute Assessment and plan: IPCD. Currently actively bleeding. - Subjective Interval history: Patient is a 16-year-old female past medical history of urostomy, colostomy, COPD and, end-stage renal disease on hemodialysis presented to the ED with gross hematuria and was admitted for new onset A. fib with RVR, atypical pneumonia, and anemia. She says she is still doing rough. She says the tylenol has been helping for the pain. She still feels rough but not new complaints. Her urine output is clearing up. - Constitutional Vitals: Temp Pulse Resp BP Pulse Ox 97.5 F L 84 20 138/69 96 07/09/17 13:33 07/09/17 12:40 07/09/17 13:33 07/09/17 13:33 07/09/17 07:30 Exam: Constitutional: Alert, in no acute distress hooked up to dialysis, well nourished, well developed. Head: Normocephalic, atraumatic, normal contour and symmetric, no masses, lesions or scars Heart: Normal, regular rate and rhythm, no murmurs Lungs: + wheezes, rales, rhonchi, and crackles Abdomen: osteomy bag on R, colostomy back on L, scar midline, tenderness directly inferior to osteomy bag, Soft, nondistended, and no masses palpable, bowel sounds present and normal, no guarding or rigidity. Extremities: tenderness of LE bilaterally diffusely, L upper humerous with AV fistula. No clubbing, cyanosis, or edema, radial pulse +2/4, capillary refill < 2sec. Skin: Central port on R subclavian, Skin warm and dry, no lesions, no rashes, no jaundice Neurologic: Cranial nerves II through XII grossly intact, no focal deficits, strength within normal limits in all extremities Psych: Cooperative with exam, good eye contact, cognitive function intact, judgment good insight good, speech clear, thought process logical, and goal directed Internal Medicine: Result - Labs CBC & Chem 7: 07/09/17 08:35 07/09/17 04:05 Labs: Short CBC 07/09/17 07/09/17 Range/Units 04:05 08:35 WBC 7.8 (4.3-11.1) K/mcL Hgb 6.6 L 7.0 L (11.5-15.4) g/dL Hct 21.4 L (35.3-44.9) % Plt Count 88 L (140-400) K/mcL Neutrophils # 6.8 (1.6-8.9) K/mcL [facility] 07/09/17 04:05 Sodium 138 Potassium 5.0 H Chloride 100 Carbon Dioxide 24 BUN 80 H Creatinine 7.23 H Glucose 126 H Calcium 6.3 L - ABG Interpretation ABG results: PT/INR, D-dimer PT 16.6 Seconds (9.4-12.1) H 07/04/17 04:00 - VTE Documentation of Mechanical Device: Intermittent pneumatic compression device Consult Discharge Plan - Plan Referrals: Na Johansen, TYLER [Primary Care Provider] - <Pasha Alexander - Last Filed: 07/09/17 16:27> Date of Encounter: 07/09/17 - Constitutional Vitals: Temp Pulse Resp BP Pulse Ox 98.2 F 90 18 158/86 96 07/09/17 15:19 07/09/17 15:19 07/09/17 15:19 07/09/17 15:19 07/09/17 15:19 Internal Medicine: Result - Labs CBC & Chem 7: 07/09/17 08:35 07/09/17 04:05 Labs: Short CBC 07/09/17 07/09/17 Range/Units 04:05 08:35 WBC 7.8 (4.3-11.1) K/mcL Hgb 6.6 L 7.0 L (11.5-15.4) g/dL Hct 21.4 L (35.3-44.9) % Plt Count 88 L (140-400) K/mcL Neutrophils # 6.8 (1.6-8.9) K/mcL [facility] 07/09/17 04:05 Sodium 138 Potassium 5.0 H Chloride 100 Carbon Dioxide 24 BUN 80 H Creatinine 7.23 H Glucose 126 H Calcium 6.3 L - ABG Interpretation ABG results: PT/INR, D-dimer PT 16.6 Seconds (9.4-12.1) H 07/04/17 04:00 - Attending Attestation I have independently seen and examined this patient on 07/09/17, reviewed the EMR and discussed plan of care with the patient and resident physician Patient seen and examined at bedside No new complains. Hb is 6.6 today, repeated was 7. There is no source of bleeding as her urostomy and colostomy bags have clear urine and formed stool respectively. This is possible related to her kidney disease. Physical exam is unchanged. Labs and Imaging reviewed. Agree with RBCsX1, discussed with unload associate, patient is already on EPO Continue Levaquin Anticipate d/c a.m Rest of details as in resident's documentation
[2017-07-10] MEDS: Ondansetron 4 MG/2 ML VIAL IVP PRN (00:49)
[2017-07-10] MEDS: *HR* HYDROcodone/Acet 5/325 mg TABLET PO PRN ×2 (03:49→09:55)
[2017-07-10] MEDS: Ipratropium/Albuterol Neb 3 ML IH SCH ×2 (03:55→10:12)
[2017-07-10 04:23] LABS: Basophils % 0.1 %; Hematocrit 28.3 % (35.3-44.9); Immature Granulocytes % 0.5 % (0-4); Lymphocytes % 10.6 %; Mean Corpuscular HGB Conc 31.8 g/dL (31.6-35.5); Mean Corpuscular Hemoglobin 29.8 pg (28.0-33.3); Mean Corpuscular Volume 93.7 fL (83.0-100.0); Mean Platelet Volume 12.5 fL (9.4-12.4); Monocytes # 0.3 K/mcL (0.0-1.3); Neutrophils # 7.9 K/mcL (1.6-8.9); Platelet Count 101 K/mcL (140-400); Red Blood Count 3.02 M/mcL (3.82-4.97); Red Cell Distribution Width 15.3 % (11.5-14.5); Segmented Neutrophils % 85.8 %
[2017-07-10 04:35] LABS: Calcium 6.4 mg/dL (8.6-10.8); Potassium 4.2 mEq/L (3.5-4.5)
[2017-07-10 06:56] VITALS: BP 154/82
--- NOTE | 2017-07-10 08:35 | Discharge Summary ---
<Pasha Alexander T - Last Filed: 07/10/17 17:38> Date of Encounter: 07/10/17 - Discharge Medications Prescriptions: Acetaminophen [Tylenol] 650 mg PO Q6HR PRN #20 tab PRN Reason: Mild Pain (1-3) Ondansetron ODT [Zofran ODT] 4 mg SL Q6HR #20 tab.rapdis Atorvastatin [Lipitor] 80 mg PO HS #14 tab Diltiazem CD (24hr) [Cardizem CD] 120 mg PO DAILY #14 GuaiFENesin ER [Mucinex] 600 mg PO BID #7 levoFLOXacin [Levaquin] 500 mg PO Q48H #6 tablet Menthol [[place]] 3.2 mg MM Q4H #20 lozenge Nicotine Patch [Nicoderm] 21 mg TD DAILY #14 predniSONE [PredniSONE] 20 mg PO DAILY #5 tab Home Medications: Amitriptyline [Elavil] 50 mg PO HS 09/19/15 [History] Cholecalciferol (Vitamin D3) [Vitamin D3] 5,000 unit PO DAILY #0 09/19/15 [ History] Ranitidine HCl [Zantac] 150 mg PO HS 09/19/15 [History] Calcium Acetate [Phos-LO] 667 mg PO TIDWM 02/21/17 [History] Cyanocobalamin (B-12) [Vitamin B12] 1,000 mcg IM QMONTH 02/21/17 [History] Levothyroxine Sodium [Synthroid] 300 mcg PO DAILY 02/21/17 [History] Mometasone/Formoterol [Dulera 100 Mcg/5 Mcg Inhaler] 2 puff IH BID 02/21/17 [ History] Lactobacillus [Culturelle] 1 each PO BID #60 cap.sprink 03/10/17 [Rx] Albuterol Neb [Proventil Neb] 2.5 mg IH Q6H PRN 06/30/17 [History] Lidocaine/Prilocaine CREAM [Emla] 1 appl TP AD PRN 06/30/17 [History] Renal Vitamin [Renal Caps Softgel] 1 mg PO DAILY 06/30/17 [History] Acetaminophen [Tylenol] 650 mg PO Q6HR PRN #20 tab 07/10/17 [Rx] Atorvastatin [Lipitor] 80 mg PO HS #14 tab 07/10/17 [Rx] Diltiazem CD (24hr) [Cardizem CD] 120 mg PO DAILY #14 07/10/17 [Rx] GuaiFENesin ER [Mucinex] 600 mg PO BID #7 07/10/17 [Rx] Menthol [[place]] 3.2 mg MM Q4H #20 lozenge 07/10/17 [Rx] Nicotine Patch [Nicoderm] 21 mg TD DAILY #14 07/10/17 [Rx] Ondansetron ODT [Zofran ODT] 4 mg SL Q6HR #20 tab.rapdis 07/10/17 [Rx] levoFLOXacin [Levaquin] 500 mg PO Q48H #6 tablet 07/10/17 [Rx] predniSONE [PredniSONE] 20 mg PO DAILY #5 tab 07/10/17 [Rx] Allergies/Adverse Reactions: 3 Allergy/AdvReac Type Severity Reaction Status Date / Time codeine AdvReac Severe Vomiting Verified 03/06/17 15:22 naproxen [From Naprosyn] AdvReac Severe Vomiting Verified 03/06/17 15:22 Date of admission: 06/30/17 14:33 Primary care physician: Na Johansen CNP Consults: 07/02/17 08:45 Consult to Dialysis [CONS] ONCE 07/02/17 14:18 Consult to Gastroenterology [CONS] Routine Consulting Provider: Gastroenterology Katelyn Reason for Consult: Anemia; Possible GI bleed; Has colostomy Call Completed: Yes 07/02/17 14:50 Consult to Urology [CONS] Routine Consulting Provider: Urology Katelyn Reason for Consult: Bleeding in the ileal loop urostomy on heparin gtt Call Completed: Yes 07/04/17 07:30 Consult to Dialysis [CONS] ONCE 07/05/17 09:30 Consult to Dialysis [CONS] ONCE 07/07/17 07:00 Consult to Dialysis [CONS] ONCE 07/07/17 07:27 Consult to Occupational Therapy [CONS] Stat Comment: Evaluate, develop and implement POC Reason for Consult: Assess gait/discharge dispo Consult to Physical Therapy [CONS] Stat Comment: Evaluate, develop and implement POC Reason for Consult: Asess gait/discharge dispo 07/08/17 07:00 Consult to Dialysis [CONS] ONCE 07/09/17 08:45 Consult to Dialysis [CONS] ONCE - Patient Status Disposition: Home, Self-Care Condition: Fair - Discharge Instructions Instructions: Diltiazem (By mouth), Acetaminophen (By mouth), Prednisone (By mouth), Guaifenesin (By mouth), Nicotine (Absorbed through the skin), Ondansetron (By mouth), Atorvastatin (By mouth), Levofloxacin (By mouth), Menthol (By mouth), Atrial Fibrillation (DC), How to Stop Smoking (DC), How to Stop Smoking (GEN), Cigarette Smoking and Your Health (GEN), Chronic Obstructive Pulmonary Disease (DC), Community-acquired Pneumonia (DC), Anemia ( GEN), Cigarette Smoking and Your Health, Collar Cutter (GEN), How to Stop Smoking, Collar Cutter (GEN) Follow Up With: Na Johansen CNP [Primary Care Provider] - Additional Instructions: follow-up with your primary care physician in 1-2 weeks. Return to the ED if symptoms worsen or new symptoms arise. Hospital course: Ms. Parra is a 71 year old female - Time Spent with Patient Total time spent providing and/or coordinating discharge services: - Constitutional Vitals: Temp Pulse Resp BP Pulse Ox 97.8 F 77 16 154/82 99 07/10/17 06:53 07/10/17 06:53 07/10/17 06:53 07/10/17 06:53 07/10/17 13:00 - Attending Attestation I have independently seen and examined this patient on 07/10/17, reviewed the EMR and discussed plan of care with the patient and resident physician Patient seen and examined at bedside No new complains. Physical exam is unchanged. Labs and Imaging reviewed. Hb stable at >8 Stable for d/c home on levaquin, not an ideal candidate for anticoagulation for her new onset Afib given her bleeding risks. Her HR is controlled Continue other current meds Per PT/OT patient has no needs Rest of details as in resident's documentation <Adele Royal - Last Filed: 07/10/17 19:59> Date of Encounter: 07/10/17 Time of Encounter: 08:32 - Discharge Diagnosis (1) Atypical pneumonia Priority: Primary Status: Acute (2) COPD exacerbation Priority: Primary Status: Acute (3) Hyperkalemia Priority: Primary Status: Acute (4) Thrombocytopenia Priority: Secondary Status: Chronic (5) Anemia in chronic kidney disease Priority: Primary Status: Acute Qualifiers: Chronic kidney disease stage: on chronic dialysis Qualified Code(s): N18.6 - End stage renal disease; D63.1 - Anemia in chronic kidney disease; Z99.2 - Dependence on renal dialysis (6) Presence of urostomy Priority: Secondary Status: Chronic (7) ESRD (end stage renal disease) Priority: Secondary Status: Chronic (8) UTI (urinary tract infection) Priority: Primary Status: Acute Qualifiers: Urinary tract infection type: site unspecified Hematuria presence: without hematuria Qualified Code(s): N39.0 - Urinary tract infection, site not specified (9) Atrial fibrillation with rapid ventricular response Priority: Primary Status: Acute (10) Colostomy care Priority: Secondary Status: Chronic (11) Gross hematuria Priority: Primary Status: Acute (12) DVT prophylaxis Priority: Secondary Status: Acute Date of admission: 06/30/17 14:33 Primary care physician: Na Johansen CNP Consults: 07/02/17 08:45 Consult to Dialysis [CONS] ONCE 07/02/17 14:18 Consult to Gastroenterology [CONS] Routine Consulting Provider: Gastroenterradha Zepeda Reason for Consult: Anemia; Possible GI bleed; Has colostomy Call Completed: Yes 07/02/17 14:50 Consult to Urology [CONS] Routine Consulting Provider: Urologjonathon Zepead Reason for Consult: Bleeding in the ileal loop urostomy on heparin gtt Call Completed: Yes 07/04/17 07:30 Consult to Dialysis [CONS] ONCE 07/05/17 09:30 Consult to Dialysis [CONS] ONCE 07/07/17 07:00 Consult to Dialysis [CONS] ONCE 07/07/17 07:27 Consult to Occupational Therapy [CONS] Stat Comment: Evaluate, develop and implement POC Reason for Consult: Assess gait/discharge dispo Consult to Physical Therapy [CONS] Stat Comment: Evaluate, develop and implement POC Reason for Consult: Asess gait/discharge dispo 07/08/17 07:00 Consult to Dialysis [CONS] ONCE 07/09/17 08:45 Consult to Dialysis [CONS] ONCE - Patient Status Functional capacity at discharge: independent ambulation Overall status at discharge: patient is progressing back to baseline - Diet and Activity Activity: as per physical therapy Diet: advance to your usual diet Hospital course: Ms. Parra is a 71 year old female with a pmh of urostomy, colostomy, COPD and, end-stage renal disease on hemodialysis presented to the ED with gross hematuria and was admitted for new onset A. fib with RVR, atypical pneumonia, and anemia. Patient was given - Time Spent with Patient Total time spent providing and/or coordinating discharge services: - Constitutional Vitals: Temp Pulse Resp BP Pulse Ox 97.8 F 77 16 154/82 94 07/10/17 06:53 07/10/17 06:53 07/10/17 06:53 07/10/17 06:53 07/10/17 06:53 Exam: Constitutional: Alert, in no acute distress hooked up to dialysis, well nourished, well developed. Head: Normocephalic, atraumatic, normal contour and symmetric, no masses, lesions or scars Heart: Normal, regular rate and rhythm, no murmurs Lungs: + wheezes, rales, rhonchi, and crackles Abdomen: osteomy bag on R, colostomy back on L, scar midline, tenderness directly inferior to osteomy bag, Soft, nondistended, and no masses palpable, bowel sounds present and normal, no guarding or rigidity. Extremities: tenderness of LE bilaterally diffusely, L upper humerous with AV fistula. No clubbing, cyanosis, or edema, radial pulse +2/4, capillary refill < 2sec. Skin: Central port on R subclavian, Skin warm and dry, no lesions, no rashes, no jaundice Neurologic: Cranial nerves II through XII grossly intact, no focal deficits, strength within normal limits in all extremities Psych: Cooperative with exam, good eye contact, cognitive function intact, judgment good insight good, speech clear, thought process logical, and goal directed - VTE Documentation of Mechanical Device: Intermittent pneumatic compression device
--- NOTE | 2017-07-10 09:38 | Nephrology Progress Note ---
Date of Encounter: 07/10/17 Time of Encounter: 09:35 - Assessment and Plan (1) ESRD (end stage renal disease) Current Visit: Yes Status: Chronic Patient being discharged today Plan for dialysis tomorrow at her regular unit [facility] Continue renal diet Avoid nephrotoxins if possible. Patient states she cannot get through to her transportation for her outpatient dialysis, says they tell her they can no longer take her calls. Patient to call dialysis unit in the am and have nurse/community mental health social worker help her make arrangements for transportation (2) Atrial fibrillation with rapid ventricular response Current Visit: Yes Status: Acute Rate stable per primary team (3) Anemia in chronic kidney disease Current Visit: Yes Status: Acute Hgb 9.0 s/p transfusion Goal hgb 10-11 Transfuse per parameters Qualifiers: Chronic kidney disease stage: on chronic dialysis Qualified Code(s): N18.6 - End stage renal disease; D63.1 - Anemia in chronic kidney disease; Z99.2 - Dependence on renal dialysis Subjective Principal diagnosis: atypical pneumonia, ESRD on dialysis Interval history: Patient seen and examined. Being discharged today Objective - Vital Signs Vital signs: Vital Signs Temp Pulse Resp BP Pulse Ox 07/10/17 06:53 97.8 F 77 16 154/82 94 07/10/17 03:59 84 20 152/79 99 07/10/17 03:57 20 94 07/09/17 23:50 153/78 07/09/17 22:05 18 93 07/09/17 21:53 95 07/09/17 19:10 98.2 F 80 20 153/78 99 07/09/17 16:16 18 95 07/09/17 15:19 98.2 F 90 18 158/86 96 07/09/17 13:55 97.9 F 20 141/67 07/09/17 13:45 148/63 07/09/17 13:33 97.5 F L 20 138/69 07/09/17 13:30 150/71 07/09/17 13:15 150/66 07/09/17 13:00 142/71 07/09/17 12:45 129/54 07/09/17 12:40 97.8 F 84 18 133/60 07/09/17 12:30 131/66 07/09/17 12:25 97.7 F 83 20 166/52 07/09/17 12:15 139/65 07/09/17 12:00 149/79 07/09/17 11:51 98.0 F 57 18 151/63 07/09/17 11:45 140/65 07/09/17 11:30 154/61 07/09/17 11:15 133/66 07/09/17 11:00 97.3 F L 80 18 150/51 07/09/17 10:45 97.2 F L 63 18 145/57 07/09/17 10:30 129/71 07/09/17 10:15 97.3 F L 18 153/55 Intake and Output 07/09/17 07/10/17 07/10/17 23:59 07:59 15:59 Intake Total 460 / 460 300 / 300 Output Total 650 / 650 550 / 550 Balance -190 / -190 -250 / -250 Intake: Oral 460 / 460 300 / 300 Output: Urine 0 / 0 Stool 650 / 650 500 / 500 Urostomy 50 / 50 Other: Meal Dinner Percent of Meal Consumed 100% Weight 71.5 kg Patient Weight 07/10/17 23:59 Weight 71.5 kg - General Appearance General appearance: Present: cachectic, chronically ill, frail EENT: Present: mucous membranes moist, hearing intact, vision intact Neck: Present: supple Respiratory: Present: course breath sounds, rhonchi Cardiology: Present: no edema, normal S1, normal S2 Gastrointestinal: Present: no tenderness, no guarding Integumentary: Present: warm and dry Neurologic: Present: alert and oriented x3 Psychiatric: Present: mood/affect appropriate, cooperative - Lab 07/10/17 03:57 07/10/17 03:57 Most recent lab results Calcium 6.4 mg/dL (8.6-10.8) L 07/10/17 03:57 Phosphorus 14.9 mg/dL (2.3-4.7) H 06/30/17 14:09 Magnesium 2.3 mg/dL (1.6-2.6) 07/01/17 05:30 - VTE Documentation of Mechanical Device: Intermittent pneumatic compression device Consult Discharge Plan - Plan Referrals: Na Johansen, TYLER [Primary Care Provider] - Prescriptions: Ondansetron [Zofran] 4 mg IVP Q8HR PRN #10 vial PRN Reason: Nausea And Vomiting GuaiFENesin ER [Mucinex] 600 mg PO BID #7 HYDROcodone/Acet 5/325 mg [[place] 5-325 mg] 2 tab PO Q4H PRN #14 tab PRN Reason: Severe Pain Nicotine Patch [Nicoderm] 21 mg TD DAILY #14
[2017-07-10] MEDS: Calcium Acetate 667 MG CAPSULE PO SCH (09:54)
[2017-07-10] MEDS: Lactobacillus 1 EACH CAP.SPRINK PO SCH (09:55)
[2017-07-10] MEDS: Benzonatate 100 MG CAPSULE PO PRN (09:55)
[2017-07-10] MEDS: predniSONE 20 MG TABLET PO SCH (09:55)
[2017-07-10] MEDS: Diltiazem CD (24hr) 120 MG CAPSULE PO SCH (09:55)
[2017-07-10] MEDS: Levofloxacin 500 MG/100 ML 500 MG/100 ML BAG IVPB SCH (09:56)
[2017-07-10] MEDS: Renal Vitamin 1 MG CAPSULE PO SCH (09:56)
[2017-07-10] MEDS: Nicotine 21 MG PATCH.TD24 TD SCH (09:56)
[2017-07-10] MEDS: Cholecalciferol (D-3) 1,000 UNIT TABLET PO SCH (09:56)
[2017-07-10] MEDS: Budesonide/Formoterol 80/4.5 MDI IH SCH (10:13)
== END 2017-07-10 14:40 | disposition home or self-care (01) | DRG 140 ==
LOC: 2NENU 07:07 → EMEROO 07:07 → 2NENU 14:18 → SUATTDRO 14:33
PROVIDERS: ADMIT Internal Medicine; ATTEND Internal Medicine

== ENCOUNTER 2017-07-16 06:14 | Inpatient (IN) ==
[2017-07-16] MEDS ORDERED: *HR* HYDROmorphone (PF) 1 MG/ML SYRINGE IVP ONE ×3 (06:44→12:15)
[2017-07-16] MEDS ORDERED: Ondansetron 4 MG/2 ML VIAL IVP ONE ×3 (06:44→12:15)
--- NOTE | 2017-07-16 06:47 | Emergency Department Note ---
Disposition Clinical Impression: Peripheral edema, ESRD on dialysis Disposition: Still a Patient Condition: Fair Referrals: Na Johansen CNP [Primary Care Provider] - Forms: ED Satisfaction Letter SOB HPI - General Chief Complaint: ED Shortness of Breath/Dyspnea Stated Complaint: KALYANI/leg swelling Time Seen by Provider: 07/16/17 06:17 Source: patient, EMS Limitations: no limitations Nursing Notes Reviewed: Yes Vital Signs Reviewed: Yes - History of Present Illness 71-year-old female history of end-stage renal disease, dialysis with Dr. Daniel Friday, she presents with lower extremity swelling, generalizd, weakness and shortness of breath, productive cough, she states that she was meant to go to dialysis today feeling more swelling and leg pain. It is that she has chest pain and diffuse body aches. 6 out of 10 pain diffuse lower extremities. Aching. Denies hemoptysis or hematochezia or melena, she has a colostomy and urostomy for several decades Pt Subjective Complaint: shortness of breath Onset (ago): hour(s) Severity: moderate Improves with: nothing Worsens with: nothing Associated symptoms: Reports: chest pain, cough, sputum production, orthopnea, nausea/vomiting. Denies: pain with inspiration, fever, wheezing, lower extremity pain, polyuria, polydipsia, palpitations, hemoptysis, diaphoresis Treatment prior to arrival: oxygen - Related Data Home Medications Medication Instructions Recorded Confirmed Amitriptyline [Elavil] 50 mg PO HS 09/19/15 06/30/17 Cholecalciferol (Vitamin D3) 5,000 unit PO DAILY #0 09/19/15 06/30/17 [Vitamin D3] Ranitidine HCl [Zantac] 150 mg PO HS 09/19/15 06/30/17 Calcium Acetate [Phos-LO] 667 mg PO TIDWM 02/21/17 06/30/17 Cyanocobalamin (B-12) [Vitamin B12] 1,000 mcg IM QMONTH 02/21/17 06/30/17 Levothyroxine Sodium [Synthroid] 300 mcg PO DAILY 02/21/17 06/30/17 Mometasone/Formoterol [Dulera 100 2 puff IH BID 02/21/17 06/30/17 Mcg/5 Mcg Inhaler] Albuterol Neb [Proventil Neb] 2.5 mg IH Q6H PRN 06/30/17 06/30/17 Lidocaine/Prilocaine CREAM [Emla] 1 appl TP AD PRN 06/30/17 06/30/17 Renal Vitamin [Renal Caps Softgel] 1 mg PO DAILY 06/30/17 06/30/17 Previous Rx's Medication Instructions Recorded Lactobacillus [Culturelle] 1 each PO BID #60 cap.sprink 03/10/17 Acetaminophen [Tylenol] 650 mg PO Q6HR PRN #20 tab 07/10/17 Atorvastatin [Lipitor] 80 mg PO HS #14 tab 07/10/17 Diltiazem CD (24hr) [Cardizem CD] 120 mg PO DAILY #14 07/10/17 GuaiFENesin ER [Mucinex] 600 mg PO BID #7 07/10/17 Menthol [[place]] 3.2 mg MM Q4H #20 lozenge 07/10/17 Nicotine Patch [Nicoderm] 21 mg TD DAILY #14 07/10/17 Ondansetron ODT [Zofran ODT] 4 mg SL Q6HR #20 tab.rapdis 07/10/17 levoFLOXacin [Levaquin] 500 mg PO Q48H #6 tablet 07/10/17 predniSONE [PredniSONE] 20 mg PO DAILY #5 tab 07/10/17 Allergies Allergy/AdvReac Type Severity Reaction Status Date / Time codeine AdvReac Severe Vomiting Verified 03/06/17 15:22 naproxen [From Naprosyn] AdvReac Severe Vomiting Verified 03/06/17 15:22 All systems ED: reviewed and negative except as stated. Review of Systems: As Per HPI Constitutional: Reports: weakness. Denies: fever Eyes: Denies: eye pain ENT ED: Denies: ear pain Cardiovascular: Reports: as per HPI, chest pain Respiratory: Reports: as per HPI, cough Gastrointestinal: Reports: as per HPI, nausea. Denies: abdominal pain Genitourinary: Denies: urgency, dysuria Musculoskeletal: Denies: back pain Integumentary: Denies: rash Neurological: Reports: as per HPI, weakness. Denies: headache Psychiatric: Reports: anxiety Past Medical History - Past Medical History Attestation: Yes The following information was validated with the patient. Source: patient Medical history: Reports: asthma, COPD, GERD, hypertension, renal disease, thyroid disease Surgical history: Reports: appendectomy, cholecystectomy, colostomy, hysterectomy, other Psychiatric history: Reports: no psych history - Social History Smoking Status: Former smoker Smokeless Tobacco Status: No Alcohol use: Reports: none Drug use: Reports: none Physical Exam Constitutional: Anxious and screaming patient, vital signs stable Eyes: PERRLA, sclera anicteric ENT & Mouth: MMM Neck: normal inspection, neck is supple Resp: CTA bilaterally, no resp distress CV: RRR, no m/g/r, +2 pitting edema bilaterally GI: normal inspection, soft, no guarding or rigidity, colostomy intact's feculent drainage green, urostomy with clean dry Neuro: A&O3, CNII-XII grossly intact, WAGNER Skin: on limited exam, skin intact with no rashes or lesions - General Limitations: no limitations General appearance: alert, in no apparent distress Course Course Narrative: 71-year-old female presents with shortness of breath and bilateral peripheral edema, states that her legs been hurting worse, she is also complaining of chest pain myalgias productive cough, plan for chest pain workup lactated blood cultures, likely patient will be admitted for dialysis, care will be signed out to the day team for disposition Vital Signs Temperature 98.4 F 07/16/17 06:16 Pulse Rate 75 07/16/17 06:16 Respiratory Rate 16 07/16/17 06:16 Blood Pressure 154/99 07/16/17 06:16 O2 Sat by Pulse Oximetry 99 07/16/17 06:16 Temperature 98.4 F 07/16/17 06:16 Pulse Rate 75 07/16/17 06:16 Respiratory Rate 16 07/16/17 06:16 Blood Pressure 154/99 07/16/17 06:16 O2 Sat by Pulse Oximetry 99 07/16/17 06:16 Oxygen Delivery Oxygen Delivery Room Air Shortness of Breath/Dyspnea - Lab Data Result diagrams: 07/16/17 06:40 - Radiology Data Radiology results reviewed: Yes I reviewed the patient's radiology results. Chest X-Ray 07/16/17 06:20 IMPRESSION: COPD with superimposed right basilar interstitial infiltrate suspicious for pneumonitis. Small bilateral pleural effusions as well. D/ / Migue Soto MD / Migue Soto MD Interpreting Provider: Migue Soto MD - EKG Data EKG attestation: Yes I reviewed and interpreted this EKG. EKG shows normal: Reports: sinus rhythm Rate: Reports: normal (76 bpm VA 116 QRS [address] segment elevations or depressions.) S.B.AVjR. - S.B.A.RVj Transition of Care: Follow up labs imaging, dispo. Situation: Demographics, MOA Background: Presenting Complaint, Relevant PMH, Meds, & Allergies Assessment: Vital Signs, Course and respsone to treatment, Exam Concerns, Patient/Family Expectation, Pertinant Lab Results, Outstanding Labs Recommendation: Barrier(s) to disposition, Recommendation based on pending studies, treatments, or consults S.B.A.RVj Report Given to: Jelani Mckeon Repor Time: 06:51 Attestation Statement - Attestation Attestation: I, Fabiano Kevin MD, personally evaluated this patient and discussed their management with the resident physician. I reviewed the resident's note and agree with the documented findings, medical decision making, and plan of care. 71-year-old female with end-stage renal disease on hemodialysis presents to the emergency department with a complaint of increased swelling of the lower extremities and pain in the lower extremities secondary to the swelling. She also complains of increased shortness of breath. Some increased cough. No fever. Symptoms started yesterday. She is due for her dialysis later today. On examination patient is a well-developed well-nourished elderly female in no acute distress and she is alert and oriented 3. There is no cyanosis or diaphoresis. Patient is very anxious and tearful. Chest is nontender to palpation. Breath sounds are decreased bilaterally but no rales or wheezes are noted. Heart regular rate and rhythm. Abdomen soft and nontender with normal bowel sounds. 2+ pedal edema of the lower extremities bilaterally. At shift change the patient [facility] In[facility].
[2017-07-16 06:49] LABS: Basophils % 0.1 %; Eosinophils # 0.1 K/mcL (0.0-0.6); Eosinophils % 0.9 %; Hematocrit 26.4 % (35.3-44.9); Hemoglobin 8.5 g/dL (11.5-15.4); Immature Granulocytes % 0.6 % (0-4); Lymphocytes % 18.8 %; Mean Corpuscular HGB Conc 32.2 g/dL (31.6-35.5); Mean Corpuscular Hemoglobin 30.1 pg (28.0-33.3); Mean Corpuscular Volume 93.6 fL (83.0-100.0); Mean Platelet Volume 11.5 fL (9.4-12.4); Monocytes # 0.4 K/mcL (0.0-1.3); Monocytes % 4.3 %; Red Blood Count 2.82 M/mcL (3.82-4.97); Segmented Neutrophils % 75.3 %
[2017-07-16 06:51] LABS: Lymphocytes # 1.8 K/mcL (0.6-4.6); Platelet Count 88 K/mcL (140-400)
[2017-07-16 06:59] LABS: INR 1.4; Prothrombin Time 14.9 Seconds (9.4-12.1)
[2017-07-16 07:02] LABS: Potassium 3.7 mEq/L (3.5-4.5)
[2017-07-16 07:06] LABS: Calcium 5.7 mg/dL (8.6-10.8)
[2017-07-16] MEDS ORDERED: Calcium Gluconate 2,000 MG in D5% in Water 100 ML IVPB ONE (07:35)
[2017-07-16 08:03] LABS: Magnesium 1.1 mg/dL (1.6-2.6)
[2017-07-16] MEDS ORDERED: Magnesium Sulfate 1 GM in D5% in Water 100 ML IVPB ONE (08:08)
--- NOTE | 2017-07-16 08:28 | Emergency Department Note ---
Disposition Clinical Impression: Peripheral edema, ESRD on dialysis, Hypocalcemia, Hypocalcemia syndrome, Magnesium deficiency, Generalized weakness, Elevated troponin Lower extremity pain Qualifiers: Laterality: bilateral Qualified Code(s): M79.604 - Pain in right leg; M79.605 - Pain in left leg Chest pain Qualifiers: Chest pain type: unspecified Qualified Code(s): R07.9 - Chest pain, unspecified Disposition: Admitted As Inpatient Condition: Fair Referrals: Na Johnasen, T[employer] GR[employer]ER OPERATOR [Primary Care Provider] - Forms: ED Satisfaction Letter General Adult HPI - General Chief complaint: ED Shortness of Breath/Dyspnea Stated complaint: KALYANI/leg swelling Time Seen by Provider: 07/16/17 06:17 Source: patient, EMS Limitations: no limitations Nursing Notes Reviewed: Yes Vital Signs Reviewed: Yes - History of Present Illness Pain Scale: 7 - Related Data Home Medications Medication Instructions Recorded Confirmed Amitriptyline [Elavil] 50 mg PO HS 09/19/15 06/30/17 Cholecalciferol (Vitamin D3) 5,000 unit PO DAILY #0 09/19/15 06/30/17 [Vitamin D3] Ranitidine HCl [Zantac] 150 mg PO HS 09/19/15 06/30/17 Calcium Acetate [Phos-LO] 667 mg PO TIDWM 02/21/17 06/30/17 Cyanocobalamin (B-12) [Vitamin B12] 1,000 mcg IM QMONTH 02/21/17 06/30/17 Levothyroxine Sodium [Synthroid] 300 mcg PO DAILY 02/21/17 06/30/17 Mometasone/Formoterol [Dulera 100 2 puff IH BID 02/21/17 06/30/17 Mcg/5 Mcg Inhaler] Albuterol Neb [Proventil Neb] 2.5 mg IH Q6H PRN 06/30/17 06/30/17 Lidocaine/Prilocaine CREAM [Emla] 1 appl TP AD PRN 06/30/17 06/30/17 Renal Vitamin [Renal Caps Softgel] 1 mg PO DAILY 06/30/17 06/30/17 Previous Rx's Medication Instructions Recorded Lactobacillus [Culturelle] 1 each PO BID #60 cap.sprink 03/10/17 Acetaminophen [Tylenol] 650 mg PO Q6HR PRN #20 tab 07/10/17 Atorvastatin [Lipitor] 80 mg PO HS #14 tab 07/10/17 Diltiazem CD (24hr) [Cardizem CD] 120 mg PO DAILY #14 07/10/17 GuaiFENesin ER [Mucinex] 600 mg PO BID #7 07/10/17 Menthol [[place]] 3.2 mg MM Q4H #20 lozenge 07/10/17 Nicotine Patch [Nicoderm] 21 mg TD DAILY #14 07/10/17 Ondansetron ODT [Zofran ODT] 4 mg SL Q6HR #20 tab.rapdis 07/10/17 levoFLOXacin [Levaquin] 500 mg PO Q48H #6 tablet 07/10/17 predniSONE [PredniSONE] 20 mg PO DAILY #5 tab 07/10/17 Allergies Allergy/AdvReac Type Severity Reaction Status Date / Time codeine AdvReac Severe Vomiting Verified 03/06/17 15:22 naproxen [From Naprosyn] AdvReac Severe Vomiting Verified 03/06/17 15:22 Constitutional: Reports: weakness. Denies: fever Eyes: Denies: eye pain ENT ED: Denies: ear pain Cardiovascular: Reports: as per HPI, chest pain Respiratory: Reports: as per HPI, cough Gastrointestinal: Reports: as per HPI, nausea. Denies: abdominal pain Genitourinary: Denies: urgency, dysuria Musculoskeletal: Denies: back pain Integumentary: Denies: rash Neurological: Reports: as per HPI, weakness. Denies: headache Psychiatric: Reports: anxiety Past Medical History - Past Medical History Medical history: Reports: asthma, COPD, GERD, hypertension, renal disease, thyroid disease Surgical history: Reports: appendectomy, cholecystectomy, colostomy, hysterectomy, other Psychiatric history: Reports: no psych history - Social History Smoking Status: Former smoker Smokeless Tobacco Status: No Alcohol use: Reports: none Drug use: Reports: none Physical Exam - General Limitations: no limitations General appearance: alert, in no apparent distress Course Course Narrative: I assumed care of this patient after sign out by the night team. I reviewed her labwork which is ordered which shows significant hypocalcemia. This is not a brand-new problem and her calcium has slowly been trending down over the last month or 2. In addition her magnesium is low. She does have significant bilateral equal pitting edema. She also states she has had weight gain. She is due for dialysis today. She admits to chest discomfort which she says it has been improving ever since she was discharged from the hospital. While she was here one week ago she was diagnosed with atypical pneumonia and today is her last day of antibiotics. EKG does not show an acute abnormality there is no significant ST changes. Her troponin is mildly elevated at 0.06 although this is markedly decreased from 0.12 which it was a little over a week ago. I do not believe that the chest discomfort is due to cardiac disease as her EKG is unremarkable, her pain is only improving, and she has a known reason why she would have the chest discomfort with the diagnosis of atypical pneumonia. The troponin elevation is likely due to end-stage renal disease but we will likely trend the troponin while she is admitted. I called and spoke with Dr. Gamboa who is her administration internship who agreed to see the patient consultation. Said that he would be able to dialyze her today and likely be able to add calcium during dialysis. In the meantime I have added calcium and magnesium by IV. I have spoken to the hospitalist who has agreed to admit. Vital Signs Temperature 98.4 F 07/16/17 06:16 Pulse Rate 75 07/16/17 06:16 Respiratory Rate 16 07/16/17 06:16 Blood Pressure 154/99 07/16/17 06:16 O2 Sat by Pulse Oximetry 99 07/16/17 06:16 Temperature 98.4 F 07/16/17 06:16 Pulse Rate 77 07/16/17 07:12 Respiratory Rate 16 07/16/17 07:12 Blood Pressure 150/80 07/16/17 07:12 O2 Sat by Pulse Oximetry 97 07/16/17 07:12 Oxygen Delivery Oxygen Delivery Room Air Medical Decision Making - Medical Records Medical records reviewed: Yes I reviewed the patient's medical records. - Lab Data Lab results reviewed: Yes I reviewed the patient's lab results. Result diagrams: 07/16/17 06:40 07/16/17 06:40 Lab Results 07/16/17 07/16/17 07/16/17 Range/Units 06:40 06:40 06:40 WBC 9.3 (4.3-11.1) K/mcL RBC 2.82 L (3.82-4.97) M/mcL Hgb 8.5 L (11.5-15.4) g/dL Hct 26.4 L (35.3-44.9) % MCV 93.6 (83.0-100.0) fL MCH 30.1 (28.0-33.3) pg MCHC 32.2 (31.6-35.5) g/dL RDW 14.0 (11.5-14.5) % Plt Count 88 L (140-400) K/mcL MPV 11.5 (9.4-12.4) fL Immature Gran % 0.6 (0-4) % Seg Neutrophils % 75.3 % Lymphocytes % 18.8 % Monocytes % 4.3 % Eosinophils % 0.9 % Basophils % 0.1 % Neutrophils # 7.0 (1.6-8.9) K/mcL Lymphocytes # 1.8 (0.6-4.6) K/mcL Monocytes # 0.4 (0.0-1.3) K/mcL Eosinophils # 0.1 (0.0-0.6) K/mcL Basophils # 0.0 (0.0-0.2) K/mcL PT (9.4-12.1) Seconds INR Sodium 141 (136-145) mEq/L Potassium 3.7 (3.5-4.5) mEq/L Chloride 105 (98-109) mEq/L Carbon Dioxide 22 (19-29) mEq/L BUN 45 H (7-20) mg/dL Creatinine 6.99 H (0.57-1.11) mg/dL Est GFR ( Amer) 7 L (> 60) Est GFR (Non-Af Amer) 6 L (> 60) BUN/Creatinine Ratio 6 (6-26) Glucose 96 (70-99) mg/dL Calculated Osmolality 303 H (280-300) Lactic Acid 1.1 (0.5-2.2) mmol/L Calcium 5.7 L* (8.6-10.8) mg/dL Magnesium 1.1 L (1.6-2.6) mg/dL Troponin I (0-0.03) ng/mL B-Natriuretic Peptide (0-100) pg/mL PTH Intact (8.5-72.5) pg/ml 07/16/17 07/16/17 07/16/17 Range/Units 06:40 06:40 06:40 WBC (4.3-11.1) K/mcL RBC (3.82-4.97) M/mcL Hgb (11.5-15.4) g/dL Hct (35.3-44.9) % MCV (83.0-100.0) fL MCH (28.0-33.3) pg MCHC (31.6-35.5) g/dL RDW (11.5-14.5) % Plt Count (140-400) K/mcL MPV (9.4-12.4) fL Immature Gran % (0-4) % Seg Neutrophils % % Lymphocytes % % Monocytes % % Eosinophils % % Basophils % % Neutrophils # (1.6-8.9) K/mcL Lymphocytes # (0.6-4.6) K/mcL Monocytes # (0.0-1.3) K/mcL Eosinophils # (0.0-0.6) K/mcL Basophils # (0.0-0.2) K/mcL PT 14.9 H (9.4-12.1) Seconds INR 1.4 Sodium (136-145) mEq/L Potassium (3.5-4.5) mEq/L Chloride (98-109) mEq/L Carbon Dioxide (19-29) mEq/L BUN (7-20) mg/dL Creatinine (0.57-1.11) mg/dL Est GFR ( Amer) (> 60) Est GFR (Non-Af Amer) (> 60) BUN/Creatinine Ratio (6-26) Glucose (70-99) mg/dL Calculated Osmolality (280-300) Lactic Acid (0.5-2.2) mmol/L Calcium (8.6-10.8) mg/dL Magnesium (1.6-2.6) mg/dL Troponin I 0.06 H* (0-0.03) ng/mL B-Natriuretic Peptide 3352 H (0-100) pg/mL PTH Intact (8.5-72.5) pg/ml 07/16/17 Range/Units 06:40 WBC (4.3-11.1) K/mcL RBC (3.82-4.97) M/mcL Hgb (11.5-15.4) g/dL Hct (35.3-44.9) % MCV (83.0-100.0) fL MCH (28.0-33.3) pg MCHC (31.6-35.5) g/dL RDW (11.5-14.5) % Plt Count (140-400) K/mcL MPV (9.4-12.4) fL Immature Gran % (0-4) % Seg Neutrophils % % Lymphocytes % % Monocytes % % Eosinophils % % Basophils % % Neutrophils # (1.6-8.9) K/mcL Lymphocytes # (0.6-4.6) K/mcL Monocytes # (0.0-1.3) K/mcL Eosinophils # (0.0-0.6) K/mcL Basophils # (0.0-0.2) K/mcL PT (9.4-12.1) Seconds INR Sodium (136-145) mEq/L Potassium (3.5-4.5) mEq/L Chloride (98-109) mEq/L Carbon Dioxide (19-29) mEq/L BUN (7-20) mg/dL Creatinine (0.57-1.11) mg/dL Est GFR ( Amer) (> 60) Est GFR (Non-Af Amer) (> 60) BUN/Creatinine Ratio (6-26) Glucose (70-99) mg/dL Calculated Osmolality (280-300) Lactic Acid (0.5-2.2) mmol/L Calcium (8.6-10.8) mg/dL Magnesium (1.6-2.6) mg/dL Troponin I (0-0.03) ng/mL B-Natriuretic Peptide (0-100) pg/mL PTH Intact 746.3 H (8.5-72.5) pg/ml - Radiology Data Radiology results reviewed: Yes I reviewed the patient's radiology results. - EKG Data EKG #1 EKG attestation: Yes I reviewed and interpreted this EKG. EKG shows normal: sinus rhythm Rate: normal Rhythm: NSR Ralph/QRS: normal When compared to previous EKG there are: no significant changes Interpretation: no acute changes
--- NOTE | 2017-07-16 08:42 | Emergency Department Note ---
START Narrative - START START: I examined this patient and my medical decision-making was reviewed with the Resident Physician. I agree with the documented findings, disposition and treatment plan as described except to the extent set forth below. pt to be admitted for volume overload, in need of dialysis, hypocalcemia tx, and eval for chest pain. pt is an ED hold for now until a bed opens up we have consulted with Nephrology for dialysis. they are aware. they said they would correct her calcium and mag levels.
--- NOTE | 2017-07-16 09:15 | Internal Med History&Physical ---
Date of Encounter: 07/16/17 Time of Encounter: 09:00 Assessment and Plan (1) CKD (chronic kidney disease), stage IV Current visit: No Status: Chronic patient is hypervolemic on exam. She has been compliant with dialysis. Nephrology plans for hemodialysis today. She does have peripheral edema and bilateral pleural effusions. I do not suspect these effusions are infected. She completed her last dose of Levaquin today for pneumonia. (2) Hypocalcemia Current visit: Yes Status: Acute Replacement ordered, suspect poor nutrition. (3) Hypomagnesemia Current visit: Yes Status: Acute Repacement ordered, monitor. Suspect due to poor nutrition. (4) Anemia in chronic kidney disease Current visit: No Status: Acute stable, monitor Qualifiers: Chronic kidney disease stage: on chronic dialysis Qualified Code(s): N18.6 - End stage renal disease; D63.1 - Anemia in chronic kidney disease; Z99.2 - Dependence on renal dialysis (5) COPD (chronic obstructive pulmonary disease) Current visit: No Status: Chronic stable, monitor, continue Nebs, incentive spirom, mucloytics. Continue to taper steroids, montitor. Scant blood tinged sputum but no brandi bleeding. Likely sequelae of recent PNA and couging, monitor. Qualifiers: COPD type: COPD with acute exacerbation Qualified Code(s): J44.1 - Chronic obstructive pulmonary disease with (acute) exacerbation (6) Elevated troponin Current visit: Yes Status: Acute Susepct due to CKD. No evidence for acute ischemia based on sx and EKG. (7) Atrial fibrillation Current visit: Yes Status: Acute Pr This is Parox Afib. Present last admission. Now NSR, no anticoag added due to her anemia. Monitor and defer to PCP on follow up. Qualifiers: Atrial fibrillation type: paroxysmal Qualified Code(s): I48.0 - Paroxysmal atrial fibrillation Internal Medicine - H&P: HPI Chief complaint: Bilat leg pain, shortness of breath, weakness Admitted From: Emergency Dept History of present illness: Ms. Parra is a 71 year old female with a pmh of urostomy, colostomy, COPD and, end-stage renal disease on hemodialysis presented to the ED with gross hematuria , vomiting, SOB, and chest pain worst with deep breathes after missing one dialysis treatment and was admitted for new onset A. fib with RVR, atypical pneumonia, and anemia. Cardiac: PMH of HTN and smoking and a family hx of brother and dad early cardiac from [place] in 40s. Patient was also found to be in new onset A. fib with RVR and EKG showed a new right BBB. Troponin was elevated at 0.04 and 0.02 and Mg was 1.2 initially. JOHN score:4. Patient placed on a Cardizem drip which soon resolved her A. fib and patient was then placed on oral Cardizem 180 mg by mouth. Magnesium was monitored and replaced with IV Mg and was most likely due to her vomiting. Cardiology suggested an Echo and believed the elevated troponin to be due to demand ischemia due to electrolyte disturbances and ESRD with missing dialysis. Echo showed LVEF 55%, mild concentric left ventricular hypertrophy, atypical septal motion consistent with bundle branch block, moderately dilated left atrium, no significant valvular dysfunction, all garcia with normal motion. Cardiology recommended parts counterman anticoagulation once anemia was stable . Patient placed on Atorvastatin and Diliazem Pulmonary. PMH of COPD and smoking. On admission, patient had SOB and a CTA was obtained, CTA was negative for PE but showed atypical pneumonia. Patient was diagnosed with bilateral atypical pneumonia and COPD exacerbation Patient initially given IV steroids. Patient treated on Rocephin and azithromycin.Patient on RA at home and was on 3L of NC and was weaned to RA. Sputum cultures showed pseudomonas with sensitivities to Levoquin so on 07/08 patient was switched to Levoquin and given 6 more doses to complete course at home. Patient given Nicotine patches on discharge as she has decided to quit smoking. Patient progressed down from IV steroids and given a prednisone taper starting at 20mg PO for 3 days then 10mg for 3 days to finish her COPD exacerbation treatment. Renal/: PMH of HD M,W,F, and urostomy. Patient skipped one dialysis session and was found to be in severe metabolic acidosis with a bicarbonate deficiency of 6.9 which was treated with 3 amps of bicarbonate. Patient on admission complained of gross hematuria. Urology was consulted and believed the hematuria was most likely due to a UTI patient started on Rocephin. Patients hematuria resolved. Patient did become anemic and 1 unit of pRBC were given but this was after hematuria had resolved and was most likely due to HD as no other source found and hematuria had stopped. Patient continued to be anemic during hospital stay. GI: PMH of colostomy. CT of abdomen showed no acute GI abnormalities. Liver ultrasound showed no liver pathology. Patient GI consulted. dmits to chronic nausea and vomiting. Patient given Zofran for home. MSK: Patient was evaluated by PT and OT which said she was able to go home without need for interventional home care or further evaluation. 07/16/17: Admit: Please see above dc summary regarding her recent discharge from the hospital on 07/10/17. Interval history: Since dc from hospital, today she completed her last dose of Levaquin for PNA. she states since dc she has gained 30# weight, with swellig in bilat LE's which is very painful for her and is causing her to vomit at times (she states she vomits whenever she is in pain). Her cough is improved but has scant bright red blood specks in sputum. No F/C. No CP. No diarrhea. States poor appetite since discharge. She states she has not miss any HD, and her last HD was Friday as scheduled (2 days ago). In ER pt noted to be hemodynam stable. CXR showed residual right basilar infiltrate and bilat pleural effusions. HEr labs revealed revealed her to be hypocalcemic and hypomagnesemic. She recieved 2 gms Calcium gluconate and Mag Sulfate in ER. On exam she did appear volume overloaded.her vital signs are stable. Case was discussed with nephrology ho will see her today and provide her with dialysis. Past Med Surg Social Fam HX - Past Medical History Medical history: asthma, COPD, GERD, hypertension, renal disease, thyroid disease Psychiatric history: no psych history - Past Surgical History Surgical History: appendectomy, cholecystectomy, colostomy, hysterectomy, other - Social History Smoking Status: Former smoker Smokeless Tobacco Status: No Alcohol use: none Drug use: none Occupational status: unemployed Current living situation: Home Activity Level: Uses cane/walker Recent Out of Country Travel Within the Last 8 Weeks: No Exposure or Possible Exposure to Illness During Travel: No - Family History Mother Adopted: No Living Status: Hx Family Cardiac Disorders: Yes Hx Family Respiratory Disorders: No Hx Family Cancer: No Hx Family GI Disorders: No Hx Family Endocrine Disorder: No Hx Family Neuromuscular Disorders: No Hx Family Neurologic Disorders: No Hx Family HEENT Disorders: No Hx Family Autoimmune Disorders: No Father Adopted: No Living Status: Hx Family Cardiac Disorders: Yes Hx Family Respiratory Disorders: No Hx Family Cancer: No Hx Family GI Disorders: No Hx Family Endocrine Disorder: No Hx Family Neuromuscular Disorders: No Hx Family Neurologic Disorders: No Hx Family HEENT Disorders: No Hx Family Autoimmune Disorders: No Brother Living Status: Still Living Hx Family Cardiac Disorders: Yes ([place]) Hx Family Respiratory Disorders: No Hx Family Endocrine Disorder: Yes - Additional Family History Additional family history: Family history reviewed and noncontributory Internal Medicine - H&P: Meds Amitriptyline [Elavil] 50 mg PO HS 09/19/15 [History] Cholecalciferol (Vitamin D3) [Vitamin D3] 5,000 unit PO DAILY #0 09/19/15 [ History] Ranitidine HCl [Zantac] 150 mg PO HS 09/19/15 [History] Cyanocobalamin (B-12) [Vitamin B12] 1,000 mcg IM QMONTH 02/21/17 [History] Levothyroxine Sodium [Synthroid] 300 mcg PO DAILY 02/21/17 [History] Mometasone/Formoterol [Dulera 100 Mcg/5 Mcg Inhaler] 2 puff IH BID 02/21/17 [ History] Lactobacillus [Culturelle] 1 each PO BID #60 cap.sprink 03/10/17 [Rx] Albuterol Neb [Proventil Neb] 2.5 mg IH Q6H PRN 06/30/17 [History] Lidocaine/Prilocaine CREAM [Emla] 1 appl TP AD PRN 06/30/17 [History] Renal Vitamin [Renal Caps Softgel] 1 mg PO DAILY 06/30/17 [History] Acetaminophen [Tylenol] 650 mg PO Q6HR PRN #20 tab 07/10/17 [Rx] Atorvastatin [Lipitor] 80 mg PO HS #14 tab 07/10/17 [Rx] Diltiazem CD (24hr) [Cardizem CD] 120 mg PO DAILY #14 07/10/17 [Rx] Nicotine Patch [Nicoderm] 21 mg TD DAILY #14 07/10/17 [Rx] Ondansetron ODT [Zofran ODT] 4 mg SL Q6HR #20 tab.rapdis 07/10/17 [Rx] levoFLOXacin [Levaquin] 500 mg PO Q48H #6 tablet 07/10/17 [Rx] predniSONE [PredniSONE] 20 mg PO DAILY #5 tab 07/10/17 [Rx] GuaiFENesin ER [Mucinex] 600 mg PO BID PRN 07/16/17 [History] Menthol [[place]] 3.2 mg MM Q4H PRN 07/16/17 [History] 3 Allergy/AdvReac Type Severity Reaction Status Date / Time codeine AdvReac Severe Vomiting Verified 03/06/17 15:22 naproxen [From Naprosyn] AdvReac Severe Vomiting Verified 03/06/17 15:22 All Systems PM: A 10-system review of systems was performed and is negative for pertinent findings except as documented above in the HPI. - Constitutional Vitals: Temp Pulse Resp BP Pulse Ox 98.4 F 77 16 150/80 97 07/16/17 06:16 07/16/17 07:12 07/16/17 07:12 07/16/17 07:12 07/16/17 07:12 General appearance: Present: A&O X 3, no acute distress, loss of weight - ENT ENT exam: Present: mucous membranes dry - Neck Neck exam general surgery: Present: supple - Respiratory Respiratory exam: Present: rales (crackles bilaterally 1/3 up, scant exp wheeze , clears with cough) - Cardiovascular Additional comments: [place] ant chest wall, no inflamm - GI/Abdominal GI/Abdominal exam: Present: normal bowel sounds, soft (urostomy and colostomy intactc) - Extremities Exam Extremities exam: Present: pedal edema (2+ edema bilat, chronic venous stasis changes bilat) Internal Med - H&P Results - Labs CBC & Chem 7: 07/16/17 06:40 07/16/17 06:40 Labs: Short CBC 07/16/17 Range/Units 06:40 WBC 9.3 (4.3-11.1) K/mcL Hgb 8.5 L (11.5-15.4) g/dL Hct 26.4 L (35.3-44.9) % Plt Count 88 L (140-400) K/mcL Neutrophils # 7.0 (1.6-8.9) K/mcL BMP 07/16/17 06:40 Sodium 141 Potassium 3.7 Chloride 105 Carbon Dioxide 22 BUN 45 H Creatinine 6.99 H Glucose 96 Calcium 5.7 L* Cardiac Enzymes 07/16/17 Range/Units 06:40 Troponin I 0.06 H* (0-0.03) ng/mL - Impressions ITS Impressions Chest X-Ray 07/16/17 06:20 IMPRESSION: COPD with superimposed right basilar interstitial infiltrate suspicious for pneumonitis. Small bilateral pleural effusions as well. D/ / Migue Soto MD / Migue Soto MD Interpreting Provider: Migue Soto MD
[2017-07-16] MEDS ORDERED: Naloxone 0.4 MG/ML INJ IVP PRN (09:33)
[2017-07-16] MEDS ORDERED: Acetaminophen 325 MG TABLET PO PRN (09:35)
[2017-07-16] MEDS ORDERED: Menthol 9.1 MG LOZENGE MM PRN (09:35)
[2017-07-16] MEDS ORDERED: NON-FORMULARY MEDICATION 1 EACH EACH (Cyanocobalamin (B-12) 1,000 MCG) IM SCH (09:45)
[2017-07-16] MEDS: Ipratropium/Albuterol Neb 3 ML IH SCH ×2 (10:45→22:55)
[2017-07-16] MEDS ORDERED: 0.9 % Sodium Chloride 250 ML IVC PRN (11:03)
[2017-07-16] MEDS: Ondansetron 4 MG/2 ML VIAL IVP PRN ×2 (13:44→22:07)
[2017-07-16] MEDS: *HR* Heparin 5,000 UNIT/ML VIAL SQ SCH ×2 (14:28→22:02)
--- NOTE | 2017-07-16 18:31 | Nephrology Consult Note ---
Date of Encounter: 07/16/17 Time of Encounter: 18:00 Assessment and Plan (1) ESRD (end stage renal disease) on dialysis Current Visit: No Status: Chronic HD was attempted tonight, but her LUE AVF has developed surrounding erythema and the arterial needle was not flowing. I had BCx 2 of 2 drawn. Will plan to ask IR tomorrow AM for assistance with placement of a temporary HD catheter. She may need a fistulagram of the LUE AVF but should make sure that she is not bactermic first Hypocalcemia: appreciate the hospitalists, agree with IV calcium infusion earlier today. Will check iCa in AM. I suspect this could be contributing to her overall weakness and Leg pains. On HD tomorrow, I'll have a higher Ca++ bath. Will check iPTH, iCa, 1,25-OH vit D, and 25-OH vit D in AM. Cough/pneumonia: she may need a cough suppressant, but will defer to the primary team. (2) Generalized weakness Current Visit: Yes Status: Acute (3) Hypocalcemia Current Visit: Yes Status: Acute (4) Lower extremity pain Current Visit: Yes Status: Acute Qualifiers: Laterality: bilateral Qualified Code(s): M79.604 - Pain in right leg; M79.605 - Pain in left leg (5) Peripheral edema Current Visit: Yes Status: Acute (6) Attention to urostomy Current Visit: No Status: Chronic History of Present Illness - Reason for Consult Consult date: 07/16/17 end stage renal disease Requesting physician: Lion Topete - Chief Complaint Leg pains, hypocalcemia, generalized weakness, cough, ESRD on HD M/W/F - History of Present Illness Vannessa Parra is a very pleasant 71 y/o WF lady with a pmh of short gut syndrome with ileostomy, urostomy, ESRD requiring HD every M/W/F who presented with worsening fatigue, ongoing cough/PNA, hypocalcemia and leg pain/ generalized weakness. She said that overall she feels rather poorly. She last dialyzed on Friday. She voiced being barely strong enough to transfer/walk from chair to chair. She denied N/V/F, but still affirmed severe, wet cough. I'm her primary chicken hanger. She dialyzes via a LUE AV access. Past Med Surg Social Fam HX - Past Medical History Medical history: asthma, COPD, GERD, hypertension, renal disease, thyroid disease Psychiatric history: no psych history - Past Surgical History Surgical History: appendectomy, cholecystectomy, colostomy, hysterectomy, other - Social History Smoking Status: Former smoker Smokeless Tobacco Status: No Alcohol use: none Drug use: none - Family History Mother Adopted: No Living Status: Hx Family Cardiac Disorders: Yes ([place]/ Stroke) Hx Family Respiratory Disorders: No Hx Family Cancer: No Hx Family GI Disorders: No Hx Family Endocrine Disorder: No Hx Family Neuromuscular Disorders: No Hx Family Neurologic Disorders: No Hx Family HEENT Disorders: No Hx Family Autoimmune Disorders: No Father Adopted: No Living Status: Hx Family Cardiac Disorders: Yes (PR) Hx Family Respiratory Disorders: No Hx Family Cancer: No Hx Family GI Disorders: No Hx Family Endocrine Disorder: No Hx Family Neuromuscular Disorders: No Hx Family Neurologic Disorders: No Hx Family HEENT Disorders: No Hx Family Autoimmune Disorders: No Brother Living Status: Still Living Hx Family Cardiac Disorders: Yes Hx Family Respiratory Disorders: No Hx Family Endocrine Disorder: Yes Medications and Allergies Amitriptyline [Elavil] 50 mg PO HS 09/19/15 [History] Cholecalciferol (Vitamin D3) [Vitamin D3] 5,000 unit PO DAILY #0 09/19/15 [ History] Ranitidine HCl [Zantac] 150 mg PO HS 09/19/15 [History] Cyanocobalamin (B-12) [Vitamin B12] 1,000 mcg IM QMONTH 02/21/17 [History] Levothyroxine Sodium [Synthroid] 300 mcg PO DAILY 02/21/17 [History] Mometasone/Formoterol [Dulera 100 Mcg/5 Mcg Inhaler] 2 puff IH BID 02/21/17 [ History] Lactobacillus [Culturelle] 1 each PO BID #60 cap.sprink 03/10/17 [Rx] Albuterol Neb [Proventil Neb] 2.5 mg IH Q6H PRN 06/30/17 [History] Lidocaine/Prilocaine CREAM [Emla] 1 appl TP AD PRN 06/30/17 [History] Renal Vitamin [Renal Caps Softgel] 1 mg PO DAILY 06/30/17 [History] Acetaminophen [Tylenol] 650 mg PO Q6HR PRN #20 tab 07/10/17 [Rx] Atorvastatin [Lipitor] 80 mg PO HS #14 tab 07/10/17 [Rx] Diltiazem CD (24hr) [Cardizem CD] 120 mg PO DAILY #14 07/10/17 [Rx] Nicotine Patch [Nicoderm] 21 mg TD DAILY #14 07/10/17 [Rx] Ondansetron ODT [Zofran ODT] 4 mg SL Q6HR #20 tab.rapdis 07/10/17 [Rx] levoFLOXacin [Levaquin] 500 mg PO Q48H #6 tablet 07/10/17 [Rx] predniSONE [PredniSONE] 20 mg PO DAILY #5 tab 07/10/17 [Rx] GuaiFENesin ER [Mucinex] 600 mg PO BID PRN 07/16/17 [History] Menthol [[place]] 3.2 mg MM Q4H PRN 07/16/17 [History] 3 Allergy/AdvReac Type Severity Reaction Status Date / Time codeine AdvReac Severe Vomiting Verified 03/06/17 15:22 naproxen [From Naprosyn] AdvReac Severe Vomiting Verified 03/06/17 15:22 Review of Systems All Systems: reviewed and no additional remarkable complaints except as stated Exam - Vital Signs Vital signs: Initial Vital Signs Temp Pulse Resp BP Pulse Ox 98.4 F 75 16 154/99 99 07/16/17 06:16 07/16/17 06:16 07/16/17 06:16 07/16/17 06:16 07/16/17 06:16 Vital Signs - Last 8 Hours Temp Pulse Resp BP Pulse Ox 07/16/17 15:05 136/72 07/16/17 13:36 97.3 F L 76 26 158/69 95 07/16/17 13:20 18 135/67 Intake and Output 07/16/17 07/16/17 07/16/17 07:59 15:59 23:59 Other: Weight 70.364 kg Patient Weight 07/16/17 23:59 Weight 70.364 kg - General Appearance General appearance: cachectic, fatigue, frail, anxious EENT: mucous membranes dry Neck: supple Respiratory: rales, course breath sounds, rhonchi Cardiology: edema (trace to 1+ pretibial pitting edema b/l), regular rate, normal S1, normal S2 - Dialysis Access Dialysis Vascular Access: Arteriovenous Fistula (Left arm) thrill: Yes bruit: Yes Gastrointestinal: normoactive bowel sounds, no guarding Additional Comments: Ileostomy, Urostomy Integumentary: no rash, warm and dry Neurologic: no focal deficit, no asterixis, alert and oriented x3 Musculoskeletal: no deformities, no clubbing Psychiatric: depressed, cooperative Results - Lab Results 07/16/17 06:40 07/16/17 06:40 Most recent lab results Calcium 5.7 mg/dL (8.6-10.8) L* 07/16/17 06:40 Magnesium 1.1 mg/dL (1.6-2.6) L 07/16/17 06:40 I reviewed the above data stein, progress notes, labs, med lists, vitals, imaging. Consult Discharge Plan - Plan Referrals: Na Johansen, [facility] [Primary Care Provider] -
[2017-07-16] MEDS ORDERED: *HR* HYDROcodone/Acet 5/325 mg TABLET PO PRN (18:32)
[2017-07-16] MEDS ORDERED: 0.9 % Sodium Chloride 2,000 ML ONE (18:44)
[2017-07-16] MEDS: *HR* Promethazine 25 MG/ML VIAL IVP PRN (18:44)
[2017-07-16] MEDS: Famotidine 20 MG TABLET PO SCH (20:04)
[2017-07-16] MEDS: *HR* HYDROcodone/Acet 5/325 mg TABLET PO PRN (20:04)
[2017-07-16] MEDS: Lactobacillus 1 EACH CAP.SPRINK PO SCH (20:04)
[2017-07-17] MEDS: *HR* HYDROcodone/Acet 5/325 mg TABLET PO PRN ×3 (02:05→16:00)
[2017-07-17] MEDS: *HR* Promethazine 25 MG/ML VIAL IVP PRN ×2 (03:00→11:37)
[2017-07-17 03:59] LABS: Basophils % 0.1 %; Eosinophils # 0.1 K/mcL (0.0-0.6); Eosinophils % 0.8 %; Hematocrit 24.1 % (35.3-44.9); Hemoglobin 7.7 g/dL (11.5-15.4); Immature Granulocytes % 0.3 % (0-4); Immature Platelets 4.6 % (1.1-6.1); Lymphocytes # 1.6 K/mcL (0.6-4.6); Lymphocytes % 18.2 %; Mean Corpuscular Hemoglobin 30.3 pg (28.0-33.3); Mean Corpuscular Volume 94.9 fL (83.0-100.0); Mean Platelet Volume 10.7 fL (9.4-12.4); Monocytes # 0.3 K/mcL (0.0-1.3); Neutrophils # 6.8 K/mcL (1.6-8.9); Red Blood Count 2.54 M/mcL (3.82-4.97); Red Cell Distribution Width 14.1 % (11.5-14.5); Segmented Neutrophils % 77.6 %
[2017-07-17 04:03] LABS: Platelet Count 75 K/mcL (140-400)
[2017-07-17] MEDS ORDERED: *HR* Morphine 2 MG/ML SYRINGE IVP ONE (05:49)
[2017-07-17 06:01] LABS: Magnesium 1.3 mg/dL (1.6-2.6); Potassium 3.6 mEq/L (3.5-4.5)
[2017-07-17 06:03] LABS: Calcium 5.9 mg/dL (8.6-10.8)
[2017-07-17] MEDS: *HR* Heparin 5,000 UNIT/ML VIAL SQ SCH ×2 (06:12→13:56)
[2017-07-17] MEDS: Ondansetron 4 MG/2 ML VIAL IVP PRN ×2 (06:21→20:47)
--- NOTE | 2017-07-17 07:34 | Electrocardiograph Report ---
[facility] Test Date: 2017-07-16 Pat Name: Vannessa Parra Department: 105 Room: 2A51 Gender: F Warper Creeler: JBKay : 1945 Requested By: Robbi Salazar Order Number: [id number] [place] MD: Ed Stoner DO Measurements Intervals [place] Rate: 76 P: 43 UT: 116 QRS: 26 QRSD: 94 T: 72 QT: 397 QTc: 427 Interpretive Statements SINUS RHYTHM WITH SHORT UT INTERVAL NONSPECIFIC T-WAVE ABNORMALITY Electronically Signed On 07-17-2017 7:33:31 EDT by Ed Stoner DO
[2017-07-17] MEDS ORDERED: Calcium Gluconate 3,000 MG in D5% in Water 250 ML IVPB ONE (08:07)
[2017-07-17] MEDS ORDERED: 0.9 % Sodium Chloride 250 ML IVC PRN (08:08)
[2017-07-17] MEDS ORDERED: Magnesium Sulfate 2 GM in D5% in Water 100 ML IVPB ONE (08:08)
--- NOTE | 2017-07-17 08:35 | Nephrology Progress Note ---
Date of Encounter: 07/17/17 Time of Encounter: 08:31 - Assessment and Plan (1) ESRD (end stage renal disease) on dialysis Current Visit: No Status: Chronic LUE AVF has surrounding erythema and is not working. Preliminary blood cultures show No Growth Will place temporary HD cath today followed by HD Plan for HD again tomorrow Hope to do fistulogram on Friday if not bactermic Continue renal diet Avoid nephrotoxins if possible (2) Generalized weakness Current Visit: Yes Status: Acute (3) Hypocalcemia Current Visit: Yes Status: Acute Ca+ 5.9 today from 5.7 yesterday IV Ca+ given yesterday Will use a higher Ca+ bath in dialysis PTH high at 746, ionized Ca+ low at 0.69 (4) Lower extremity pain Current Visit: Yes Status: Acute Qualifiers: Laterality: bilateral Qualified Code(s): M79.604 - Pain in right leg; M79.605 - Pain in left leg (5) Anemia in chronic kidney disease Current Visit: No Status: Acute Hg 7.7 Goal 10-11 Transfuse per parameters Qualifiers: Chronic kidney disease stage: on chronic dialysis Qualified Code(s): N18.6 - End stage renal disease; D63.1 - Anemia in chronic kidney disease; Z99.2 - Dependence on renal dialysis Subjective Principal diagnosis: ESRD on dialysis, hypocalcemia Interval history: Patient seen and examined. Lower legs very tender to touch. Objective - Vital Signs Vital signs: Vital Signs Temp Pulse Resp BP Pulse Ox 07/17/17 07:10 98.2 F 71 17 133/71 94 07/17/17 04:46 97.9 F 74 16 149/73 97 07/16/17 23:40 98.1 F 71 16 127/65 93 07/16/17 19:20 98.2 F 79 16 157/77 97 07/16/17 15:05 136/72 07/16/17 13:36 97.3 F L 76 26 158/69 95 07/16/17 13:20 18 135/67 Intake and Output 07/16/17 07/17/17 07/17/17 23:59 07:59 15:59 Intake Total 0 / 0 Balance 0 / 0 Intake: Oral 0 / 0 Other: Stool Size Moderate Stool Consistency liquid liquid Stool Characteristics Normal for Patient Stool Color Brown Brown Green Yellow Green Weight 70.1 kg Patient Weight 07/17/17 23:59 Weight 70.1 kg - General Appearance General appearance: Present: cachectic, chronically ill, frail EENT: Present: ATNC, mucous membranes moist, hearing intact, vision intact Neck: Present: supple Respiratory: Present: wheezing, course breath sounds, rhonchi Cardiology: Present: edema, normal S1, normal S2 Dialysis Vascular Access: Arteriovenous Fistula Gastrointestinal: Present: no tenderness, no guarding Integumentary: Present: warm and dry Neurologic: Present: alert and oriented x3 Psychiatric: Present: mood/affect appropriate, cooperative - Lab 07/17/17 03:30 07/17/17 03:30 Most recent lab results Calcium 5.9 mg/dL (8.6-10.8) L* 07/17/17 03:30 Magnesium 1.3 mg/dL (1.6-2.6) L 07/17/17 03:30 Consult Discharge Plan - Plan Referrals: Na Johansen, TYLER [Primary Care Provider] -
--- NOTE | 2017-07-17 08:51 | Internal Med Progress Note ---
Date of Encounter: 07/17/17 Time of Encounter: 08:47 - Assessment and plan (1) Bilateral leg pain Current Visit: Yes Status: Acute Assessment and plan: could be due to edema.. crampy type pain due to electrolyte abnoralities too however need to d/o DVT.. will do venous doppler (2) ESRD (end stage renal disease) on dialysis Current Visit: No Status: Chronic Assessment and plan: unable to do HD y/d due to erythema around the AV fistula area So far blood cx no growth Nephro consulted IR for HD cath Scheduled for HD today and tomorrow (3) Paroxysmal a-fib Current Visit: Yes Status: Chronic Assessment and plan: rate controlled on Cardizem Hard CHADSVASC score 3.. could get benefit with senior care anticoag with Coumadin Was not on anticoag due to anemia and blood in ostomies.. Card is going to discuss with the pt about anticoag options as an out pt - as per their 2016 notes (4) Anemia in chronic kidney disease Current Visit: No Status: Acute Assessment and plan: Hb seems to be at baseline and stable around 7.7 cont close monitoring will check iron studies No need of transfusions yet Qualifiers: Chronic kidney disease stage: on chronic dialysis Qualified Code(s): N18.6 - End stage renal disease; D63.1 - Anemia in chronic kidney disease; Z99.2 - Dependence on renal dialysis (5) Fatigue Current Visit: No Status: Acute Assessment and plan: due to missing HD Qualifiers: Fatigue type: unspecified Qualified Code(s): R53.83 - Other fatigue (6) Cough Current Visit: No Status: Acute Assessment and plan: With recent pneumonia finished abx course no need of abx now no fever / normal WBC (7) Hypomagnesemia Current Visit: No Status: Acute Assessment and plan: can be replaced during HD today (8) Tobacco abuse Current Visit: No Status: Chronic Assessment and plan: counseled to quit on nicotine patch (9) Generalized weakness Current Visit: Yes Status: Acute Assessment and plan: with b/l le pain will check venous doppler to r/o any DVT (10) COPD (chronic obstructive pulmonary disease) Current Visit: No Status: Chronic Qualifiers: COPD type: COPD with acute exacerbation Qualified Code(s): J44.1 - Chronic obstructive pulmonary disease with (acute) exacerbation (11) Hypomagnesemia Current Visit: Yes Status: Acute Assessment and plan: can be replaced during HD today (12) DVT prophylaxis Current Visit: No Status: Acute Assessment and plan: on SQ heparin - Subjective Interval history: is a very pleasant 71 y/o WF lady with a pmh of short gut syndrome with ileostomy, urostomy, ESRD requiring HD every M/W/F who presented with worsening fatigue, ongoing cough/PNA, hypocalcemia and leg pain/generalized weakness. She said that overall she feels rather poorly. She last dialyzed on Friday. She voiced being barely strong enough to transfer/walk from chair to chair. She denied N/V/F She got admitted here and tried to do HD y/d, but there mild erythema noticed around the AV fistula, so HD initiated y/d. Pt is alert, awake and O x3. Denied any CP. Still has cough, but unable to bring up any sputum... stil; has some junky breath sounds. No fever / no chills. b/l LE pain with swelling since Friday - Constitutional Vitals: Temp Pulse Resp BP Pulse Ox 98.2 F 71 17 133/71 94 07/17/17 07:10 07/17/17 07:10 07/17/17 07:10 07/17/17 07:10 07/17/17 07:10 General appearance: Present: A&O X 3, no acute distress, loss of weight - Head Head exam: Present: atraumatic, normal inspection - Respiratory Respiratory exam: Present: decreased breath sounds, rhonchi, wheezes. Absent: rales, respiratory distress - Cardiovascular Cardiovascular exam: Present: RRR, +S1, +S2. Absent: systolic murmur - GI/Abdominal GI/Abdominal exam: Present: soft. Absent: rebound, rigid, tenderness - Extremities Exam Extremities exam: Present: pedal edema, tenderness (both legs). Absent: calf tenderness, joint swelling Additional comments: no erythema / no cellulites.. no signs of infection Internal Medicine: Result - Labs CBC & Chem 7: 07/17/17 03:30 07/17/17 03:30 Labs: Short CBC 07/17/17 Range/Units 03:30 WBC 8.8 (4.3-11.1) K/mcL Hgb 7.7 L (11.5-15.4) g/dL Hct 24.1 L (35.3-44.9) % Plt Count 75 L (140-400) K/mcL Neutrophils # 6.8 (1.6-8.9) K/mcL BMP 07/17/17 03:30 Sodium 140 Potassium 3.6 Chloride 103 Carbon Dioxide 22 BUN 49 H Creatinine 7.85 H Glucose 132 H Calcium 5.9 L* - ABG Interpretation ABG results: PT/INR, D-dimer PT 14.9 Seconds (9.4-12.1) H 07/16/17 06:40 Consult Discharge Plan - Plan Referrals: Na Johansen, WALL WASHER [Primary Care Provider] -
[2017-07-17] MEDS ORDERED: 0.9 % Sodium Chloride 2,000 ML ONE (09:06)
[2017-07-17] MEDS: predniSONE 20 MG TABLET PO SCH (09:22)
[2017-07-17] MEDS: Cholecalciferol (D-3) 1,000 UNIT TABLET PO SCH (09:22)
[2017-07-17] MEDS: Renal Vitamin 1 MG CAPSULE PO SCH (09:22)
[2017-07-17] MEDS: Lactobacillus 1 EACH CAP.SPRINK PO SCH ×2 (09:22→20:44)
[2017-07-17] MEDS: Nicotine 21 MG PATCH.TD24 TD SCH (09:22)
[2017-07-17] MEDS: Ipratropium/Albuterol Neb 3 ML IH SCH ×2 (10:26→23:03)
[2017-07-17] MEDS ORDERED: *HR* Heparin 5,000 UNIT/ML VIAL ONE ×2 (10:37→11:10)
[2017-07-17] MEDS ORDERED: 0.9 % Sodium Chloride 500 ML ONE (11:10)
[2017-07-17] MEDS: Acetaminophen 325 MG TABLET PO PRN ×2 (11:36→20:45)
--- NOTE | 2017-07-17 11:55 | IR Procedure Note ---
Date of procedure: 07/17/17 Consent Obtained: Verbal consent Timeout: Correct patient and procedure verified, Correct site verified, Time out performed, Skin prep completed Indications: renal failure Procedure Performed: femoral HDC Site/Technique: right femoral access. Rt IJ occluded. Results/Findings: successful placement Estimated blood loss (cc): 2 Complications: None; Tolerated procedure well Post Procedure Treatment Plan: KUB then use
[2017-07-17] MEDS ORDERED: *HR* Heparin 10,000 UNIT/10 ML VIAL IV PRN (15:16)
[2017-07-17 18:58] LABS: Basophils % 0.1 %; Mean Corpuscular Volume 92.7 fL (83.0-100.0); Monocytes % 1.6 %
[2017-07-17 19:00] LABS: Hematocrit 26.6 % (35.3-44.9); Hemoglobin 8.6 g/dL (11.5-15.4); Immature Granulocytes % 0.9 % (0-4); Immature Platelets 5.9 % (1.1-6.1); Lymphocytes # 0.5 K/mcL (0.6-4.6); Lymphocytes % 5.9 %; Mean Corpuscular HGB Conc 32.3 g/dL (31.6-35.5); Mean Platelet Volume 11.8 fL (9.4-12.4); Monocytes # 0.2 K/mcL (0.0-1.3); Red Blood Count 2.87 M/mcL (3.82-4.97); Segmented Neutrophils % 91.5 %
[2017-07-17 19:02] LABS: Neutrophils # 8.3 K/mcL (1.6-8.9); Platelet Count 77 K/mcL (140-400)
[2017-07-17] MEDS: Diltiazem CD (24hr) 120 MG CAPSULE PO SCH (19:09)
[2017-07-17 19:23] LABS: Platelet Estimate Decreased (Normal)
[2017-07-17] MEDS: Famotidine 20 MG TABLET PO SCH (20:45)
[2017-07-18] MEDS: *HR* HYDROcodone/Acet 5/325 mg TABLET PO PRN ×4 (00:11→20:09)
[2017-07-18] MEDS: Acetaminophen 325 MG TABLET PO PRN (02:56)
[2017-07-18] MEDS: *HR* Promethazine 25 MG/ML VIAL IVP PRN (02:57)
[2017-07-18 04:36] LABS: Hemoglobin 7.4 g/dL (11.5-15.4); Lymphocytes % 13.9 %
[2017-07-18 04:38] LABS: Basophils % 0.2 %; Eosinophils % 0.3 %; Hematocrit 23.1 % (35.3-44.9); Immature Granulocytes % 0.3 % (0-4); Immature Platelets 4.8 % (1.1-6.1); Lymphocytes # 0.9 K/mcL (0.6-4.6); Mean Corpuscular Hemoglobin 30.5 pg (28.0-33.3); Mean Corpuscular Volume 95.1 fL (83.0-100.0); Mean Platelet Volume 11.3 fL (9.4-12.4); Monocytes # 0.3 K/mcL (0.0-1.3); Monocytes % 3.8 %; Neutrophils # 5.4 K/mcL (1.6-8.9); Red Blood Count 2.43 M/mcL (3.82-4.97); Red Cell Distribution Width 14.2 % (11.5-14.5); Segmented Neutrophils % 81.5 %
[2017-07-18 04:50] LABS: Magnesium 1.7 mg/dL (1.6-2.6)
[2017-07-18 04:53] LABS: Calcium 7.1 mg/dL (8.6-10.8); Platelet Count 65 K/mcL (140-400)
[2017-07-18] MEDS ORDERED: 0.9 % Sodium Chloride 250 ML IVC PRN (06:00)
[2017-07-18] MEDS ORDERED: *HR* Heparin 10,000 UNIT/10 ML VIAL IV PRN ×2 (07:17→12:27)
[2017-07-18] MEDS ORDERED: 0.9 % Sodium Chloride 2,000 ML ONE (08:03)
--- NOTE | 2017-07-18 08:39 | Internal Med Progress Note ---
Date of Encounter: 07/18/17 Time of Encounter: 08:00 - Assessment and plan (1) Hematuria Current Visit: Yes Status: Acute Assessment and plan: Ordered UA Hb dropped down to 7.4 will give 1 U PRBC during HD today Urology consulted Held ASA and Heparin Will coordinate with Nephro to do IV contrast CT of abd and Pelvis for better evaluation Qualifiers: Hematuria type: gross Qualified Code(s): R31.0 - Gross hematuria (2) Bilateral leg pain Current Visit: Yes Status: Acute Assessment and plan: could be due to edema.. crampy type pain due to electrolyte abnoralities too venous doppler negative for DVT (3) ESRD (end stage renal disease) on dialysis Current Visit: No Status: Chronic Assessment and plan: Had HD y/d through temporray HD cath from Rt groin but now she is oozing blood from cath site.. so possible d/c of cath and may need to place another HD cath IR does aware of it will transfuse 1 U PRBC during HD today So far blood cx no growth (4) Paroxysmal a-fib Current Visit: Yes Status: Chronic Assessment and plan: rate controlled on Cardizem Hard CHADSVASC score 3.. could get benefit with care home anticoag with Coumadin Was not on anticoag due to anemia and blood in ostomies.. Card is going to discuss with the pt about anticoag options as an out pt - as per their 2016 notes (5) Anemia in chronic kidney disease Current Visit: No Status: Acute Assessment and plan: Hb slightly dropped down to 7.4 Could be acute anemia with chronic disease as well as due to current hematuria too d/c ASA and Heparin SQ Will transfuse 1 U PRBC during HD today cont close monitoring reviewed iron studies Qualifiers: Chronic kidney disease stage: on chronic dialysis Qualified Code(s): N18.6 - End stage renal disease; D63.1 - Anemia in chronic kidney disease; Z99.2 - Dependence on renal dialysis (6) Fatigue Current Visit: No Status: Acute Assessment and plan: due to missing HD Qualifiers: Fatigue type: unspecified Qualified Code(s): R53.83 - Other fatigue (7) Cough Current Visit: No Status: Acute Assessment and plan: With recent pneumonia finished abx course no need of abx now no fever / normal WBC (8) Hypomagnesemia Current Visit: No Status: Acute Assessment and plan: Replaced.. Improved (9) Tobacco abuse Current Visit: No Status: Chronic Assessment and plan: counseled to quit on nicotine patch (10) Generalized weakness Current Visit: Yes Status: Acute Assessment and plan: with b/l le pain will check venous doppler to r/o any DVT (11) COPD (chronic obstructive pulmonary disease) Current Visit: No Status: Chronic Qualifiers: COPD type: COPD with acute exacerbation Qualified Code(s): J44.1 - Chronic obstructive pulmonary disease with (acute) exacerbation (12) DVT prophylaxis Current Visit: No Status: Acute Assessment and plan: Held SQ heparin due to hematuria on SCD's - Subjective Interval history: is a very pleasant 71 y/o WF lady with a pmh of short gut syndrome with ileostomy, urostomy, ESRD requiring HD every M/W/ who presented with worsening fatigue, ongoing cough/PNA, hypocalcemia and leg pain/generalized weakness. She said that overall she feels rather poorly. She last dialyzed on Friday. She voiced being barely strong enough to transfer/walk from chair to chair. She denied N/V/F She got admitted here and tried to do HD upon admission, but there was mild erythema noticed around the AV fistula, so HD was held initially. She had HD temporary cath placed in Rt groin area 07/17/17 and had 1 HD y/d. Apparently she started oozing blood from HD catheter site since this morning. Also she started having hematuria through urostomy bag. Pt is alert, awake and O x3. Denied any CP. Still has cough, but unable to bring up any sputum.. No fever / no chills. b/l LE pain improved - Constitutional Vitals: Temp Pulse Resp BP Pulse Ox 98.3 F 71 18 148/81 97 07/18/17 07:01 07/18/17 07:01 07/18/17 07:01 07/18/17 07:01 07/18/17 07:01 General appearance: Present: A&O X 3, no acute distress, loss of weight - Head Head exam: Present: atraumatic, normal inspection - Respiratory Respiratory exam: Present: decreased breath sounds, rales (mild), wheezes (mild) . Absent: respiratory distress, rhonchi - Cardiovascular Cardiovascular exam: Present: RRR, +S1, +S2. Absent: diastolic murmur, gallop, rubs, systolic murmur - GI/Abdominal GI/Abdominal exam: Present: normal bowel sounds, soft, no peritoneal signs. Absent: distended, tenderness Additional comments: Urostomy bag + Rt side and Colostomy in LLQ..Mild hematuria noticed in urostomy bag - Additional comments: Rt Urostomy with hematuria + Also noticed blood leakage through HD cath site in Rt groin - Extremities Exam Extremities exam: Present: pedal edema (trace). Absent: calf tenderness, tenderness - Back Exam Back exam: Absent: CVA tenderness (L), CVA tenderness (R) - Neurological Exam Neurological exam: Present: alert, oriented X3 - Psychiatric Psychiatric exam: Present: normal affect, normal mood Internal Medicine: Result - Labs CBC & Chem 7: 07/18/17 04:29 07/18/17 04:29 Labs: Short CBC 07/17/17 07/18/17 Range/Units 18:45 04:29 WBC 9.1 6.6 (4.3-11.1) K/mcL Hgb 8.6 L 7.4 L (11.5-15.4) g/dL Hct 26.6 L 23.1 L (35.3-44.9) % Plt Count 77 L 65 L (140-400) K/mcL Neutrophils # 8.3 5.4 (1.6-8.9) K/mcL BMP 07/18/17 04:29 Sodium 139 Potassium 4.0 Chloride 102 Carbon Dioxide 25 BUN 28 H D Creatinine 5.64 H Glucose 136 H Calcium 7.1 L D - ABG Interpretation ABG results: PT/INR, D-dimer PT 14.9 Seconds (9.4-12.1) H 07/16/17 06:40 - Impressions Impressions Guidance Needle Placement Ultrasound 07/17/17 00:00 IMPRESSION: Successful ultrasound guided non-tunneled right femoral temporary hemodialysis catheter placement. D/ / 07/17/2017 12:27:33 Ania Mason MD / [facility] Interpreting Provider: Ania Mason MD Insertion Non-Tunneled Catheter 07/17/17 00:00 IMPRESSION: Successful ultrasound guided non-tunneled right femoral temporary hemodialysis catheter placement. D/ / 07/17/2017 12:27:33 Ania Mason MD / [facility] Interpreting Provider: Ania Mason MD X-Ray 07/17/17 11:17 IMPRESSION: Femoral dialysis catheter placement. Nonobstructive bowel gas pattern. D/ / 07/17/2017 12:30:20 Dusty Polk MD / [facility] Interpreting Provider: Dusty Polk MD Consult Discharge Plan - Plan Referrals: Na Johansen, HOME INSPECTOR [Primary Care Provider] - 07/24/17 8:00 am
[2017-07-18 10:09] LABS: Eosinophils % 0.6 %; Hematocrit 22.1 % (35.3-44.9); Immature Granulocytes % 0.4 % (0-4); Lymphocytes % 15.2 %; Mean Corpuscular HGB Conc 31.7 g/dL (31.6-35.5); Mean Corpuscular Hemoglobin 30.3 pg (28.0-33.3); Mean Corpuscular Volume 95.7 fL (83.0-100.0); Mean Platelet Volume 11.5 fL (9.4-12.4); Monocytes # 0.3 K/mcL (0.0-1.3); Monocytes % 4.2 %; Neutrophils # 5.3 K/mcL (1.6-8.9); Red Blood Count 2.31 M/mcL (3.82-4.97); Red Cell Distribution Width 14.2 % (11.5-14.5); Segmented Neutrophils % 79.6 %
[2017-07-18 10:10] LABS: Platelet Count 64 K/mcL (140-400)
[2017-07-18] MEDS: Lactobacillus 1 EACH CAP.SPRINK PO SCH ×2 (10:12→21:15)
[2017-07-18] MEDS: Cholecalciferol (D-3) 1,000 UNIT TABLET PO SCH (10:12)
[2017-07-18] MEDS: predniSONE 20 MG TABLET PO SCH (10:12)
[2017-07-18] MEDS: Nicotine 21 MG PATCH.TD24 TD SCH (10:12)
[2017-07-18] MEDS: Renal Vitamin 1 MG CAPSULE PO SCH (10:12)
[2017-07-18] MEDS: Ipratropium/Albuterol Neb 3 ML IH SCH ×2 (10:30→22:46)
[2017-07-18] MEDS ORDERED: 0.9 % Sodium Chloride 250 ML ONE (13:34)
[2017-07-18] MEDS: Diltiazem CD (24hr) 120 MG CAPSULE PO SCH (13:39)
[2017-07-18 14:55] LABS: INR 1.2
[2017-07-18 15:03] LABS: Eosinophils % 0.3 %; Hematocrit 23.1 % (35.3-44.9); Hemoglobin 7.4 g/dL (11.5-15.4); Immature Granulocytes % 0.4 % (0-4); Lymphocytes # 0.4 K/mcL (0.6-4.6); Lymphocytes % 6.2 %; Mean Corpuscular Hemoglobin 30.6 pg (28.0-33.3); Mean Corpuscular Volume 95.5 fL (83.0-100.0); Mean Platelet Volume 12.5 fL (9.4-12.4); Monocytes # 0.2 K/mcL (0.0-1.3); Monocytes % 2.2 %; Neutrophils # 6.3 K/mcL (1.6-8.9); Red Blood Count 2.42 M/mcL (3.82-4.97); Red Cell Distribution Width 14.2 % (11.5-14.5); Segmented Neutrophils % 90.9 %
[2017-07-18 15:04] LABS: Platelet Count 62 K/mcL (140-400)
[2017-07-18 15:49] LABS: Bilirubin,Urine Negative (Negative); Blood,Urine Large (Negative); Clarity,Urine Cloudy (Clear); Glucose,Urine (UA) Normal (Normal); Ketones,Urine Negative (Negative); Leukocyte Esterase,Urine Trace (Negative); Nitrite,Urine Negative (Negative); PH,Urine 7.5 pH Units (5.0-8.0); Protein,Urine >=300 mg/dL (Neg-Trace); Specific Gravity,Urine 1.014 (1.010-1.025); Urobilinogen,Urine Normal (Normal)
[2017-07-18 15:50] LABS: Color,Urine Red (Yellow)
[2017-07-18] MEDS: *HR* Morphine 2 MG/ML SYRINGE IVP PRN (16:28)
--- NOTE | 2017-07-18 18:58 | Urology - Consult Note ---
Date of Encounter: 07/18/17 Time of Encounter: 18:56 - Assessment and Plan (1) Gross hematuria Current Visit: Yes Status: Acute Assessment and plan: I personally reviewed the previous CT scan and do not see an obvious etiology for the gross hematuria. I placed an order for urine cytology to help establish if this could be from a malignant source. If possible, a CT scan abdomen and pelvis with contrast could be helpful if able to perform - may be able to time with dialysis to minimize complication. The patient's stoma is fairly pale which raises question if any ischemia of her ileal conduit could be contributing.. This would be a very complicated issue requiring transfer to a tertiary care center. If possible the CT scan may better identify the cause of the hematuria. Urology CN:HPI Consult date: 07/18/17 Reason for consult Urology: Gross Hematuria History of present illness: Patient recently seen by Dr. Medina for similar issue. Patient continues to have gross hematuria from her ileal conduit of unknown origin. CT scan at the last admission showed no obvious etiology for the hematuria. Patient states dark opaque maroon-colored urine was draining last night. No associated pain. Patient had a history of a cystectomy in the "80s "for nonmalignant purposes Past Med Surg Social Fam HX - Past Medical History Medical history: asthma, COPD, GERD, hypertension, renal disease, thyroid disease Psychiatric history: no psych history - Past Surgical History Surgical History: appendectomy, cholecystectomy, colostomy, hysterectomy, other - Social History Smoking Status: Former smoker Smokeless Tobacco Status: No Alcohol use: none Drug use: none - Family History Mother Adopted: No Living Status: Hx Family Cardiac Disorders: Yes (CA/ Stroke) Hx Family Respiratory Disorders: No Hx Family Cancer: No Hx Family GI Disorders: No Hx Family Endocrine Disorder: No Hx Family Neuromuscular Disorders: No Hx Family Neurologic Disorders: No Hx Family HEENT Disorders: No Hx Family Autoimmune Disorders: No Father Adopted: No Living Status: Hx Family Cardiac Disorders: Yes (CA) Hx Family Respiratory Disorders: No Hx Family Cancer: No Hx Family GI Disorders: No Hx Family Endocrine Disorder: No Hx Family Neuromuscular Disorders: No Hx Family Neurologic Disorders: No Hx Family HEENT Disorders: No Hx Family Autoimmune Disorders: No Brother Living Status: Still Living Hx Family Cardiac Disorders: Yes Hx Family Respiratory Disorders: No Hx Family Endocrine Disorder: Yes Medications and Allergies Amitriptyline [Elavil] 50 mg PO HS 09/19/15 [History] Cholecalciferol (Vitamin D3) [Vitamin D3] 5,000 unit PO DAILY #0 09/19/15 [ History] Ranitidine HCl [Zantac] 150 mg PO HS 09/19/15 [History] Cyanocobalamin (B-12) [Vitamin B12] 1,000 mcg IM QMONTH 02/21/17 [History] Levothyroxine Sodium [Synthroid] 300 mcg PO DAILY 02/21/17 [History] Mometasone/Formoterol [Dulera 100 Mcg/5 Mcg Inhaler] 2 puff IH BID 02/21/17 [ History] Lactobacillus [Culturelle] 1 each PO BID #60 cap.sprink 03/10/17 [Rx] Albuterol Neb [Proventil Neb] 2.5 mg IH Q6H PRN 06/30/17 [History] Lidocaine/Prilocaine CREAM [Emla] 1 appl TP AD PRN 06/30/17 [History] Renal Vitamin [Renal Caps Softgel] 1 mg PO DAILY 06/30/17 [History] Acetaminophen [Tylenol] 650 mg PO Q6HR PRN #20 tab 07/10/17 [Rx] Atorvastatin [Lipitor] 80 mg PO HS #14 tab 07/10/17 [Rx] Diltiazem CD (24hr) [Cardizem CD] 120 mg PO DAILY #14 07/10/17 [Rx] Nicotine Patch [Nicoderm] 21 mg TD DAILY #14 07/10/17 [Rx] Ondansetron ODT [Zofran ODT] 4 mg SL Q6HR #20 tab.rapdis 07/10/17 [Rx] levoFLOXacin [Levaquin] 500 mg PO Q48H #6 tablet 07/10/17 [Rx] predniSONE [PredniSONE] 20 mg PO DAILY #5 tab 07/10/17 [Rx] GuaiFENesin ER [Mucinex] 600 mg PO BID PRN 07/16/17 [History] Menthol [[place]] 3.2 mg MM Q4H PRN 07/16/17 [History] 3 Allergy/AdvReac Type Severity Reaction Status Date / Time codeine AdvReac Severe Vomiting Verified 03/06/17 15:22 naproxen [From Naprosyn] AdvReac Severe Vomiting Verified 03/06/17 15:22 Review of Systems - Constitutional fatigue, weakness, no fever(s) - EENT Nose, mouth and throat: no dizziness - Cardiovascular no chest pain - Respiratory no cough - Gastrointestinal abdominal pain - Genitourinary Genitourinary: hematuria - Musculoskeletal as per HPI, back pain - Integumentary no erythema - Neurological no confusion - Psychiatric no anxiety - Hematologic/Lymphatic easy bleeding - Allergic/Immunologic no throat swelling Exam Initial Vital Signs Temp Pulse Resp BP Pulse Ox 98.4 F 75 16 154/99 99 07/16/17 06:16 07/16/17 06:16 07/16/17 06:16 07/16/17 06:16 07/16/17 06:16 - General physical appearance Present: no distress, chronically ill - Eyes Present: PERRL - ENT Present: normal nares - Neck Present: no masses - Respiratory Present: normal respiratory effort - Abdomen Abdomen: Present: soft - Integumentary Present: no rash - Neurologic Absent: disoriented, confused - Additional Findings Multiple locations for ecchymosis in her neck and groin Ileal conduit located on the right aspect of her abdomen. Colostomy on the left Urine is lightly hematuric with small blackish clots. Stoma is pale and not as pink as expected Urology Results - Labs 07/18/17 14:35 07/18/17 04:29 Abnormal lab results RBC 2.42 M/mcL (3.82-4.97) L 07/18/17 14:35 Hgb 7.4 g/dL (11.5-15.4) L 07/18/17 14:35 Hct 23.1 % (35.3-44.9) L 07/18/17 14:35 Plt Count 62 K/mcL (140-400) L 07/18/17 14:35 MPV 12.5 fL (9.4-12.4) H 07/18/17 14:35 Lymphocytes # 0.4 K/mcL (0.6-4.6) L 07/18/17 14:35 Platelet Estimate Decreased (Normal) L 07/17/17 18:45 PT 13.0 Seconds (9.4-12.1) H 07/18/17 14:35 BUN 28 mg/dL (7-20) H D 07/18/17 04:29 Creatinine 5.64 mg/dL (0.57-1.11) H 07/18/17 04:29 Est GFR ( Amer) 9 (> 60) L 07/18/17 04:29 Est GFR (Non-Af Amer) 7 (> 60) L 07/18/17 04:29 BUN/Creatinine Ratio 5 (6-26) L 07/18/17 04:29 Glucose 136 mg/dL (70-99) H 07/18/17 04:29 Calcium 7.1 mg/dL (8.6-10.8) L D 07/18/17 04:29 Ionized Calcium 0.69 mmol/L (1.15-1.35) L 07/17/17 03:30 Iron 44 mcg/dL (50-170) L 07/18/17 04:29 Transferrin 171 mg/dL (180-382) L 07/18/17 04:29 Troponin I 0.06 ng/mL (0-0.03) H* 07/16/17 06:40 B-Natriuretic Peptide 3352 pg/mL (0-100) H 07/16/17 06:40 25-OH Vitamin D Total 29 ng/mL (30-80) L 07/17/17 03:30 PTH Intact 746.3 pg/ml (8.5-72.5) H 07/16/17 06:40 Ur Specimen Adequacy See below A 07/18/17 15:22 Urine Color Red (Yellow) A 07/18/17 15:22 Urine Clarity Cloudy (Clear) A 07/18/17 15:22 Urine Protein >=300 mg/dL (Neg-Trace) H 07/18/17 15:22 Urine Blood Large (Negative) H 07/18/17 15:22 Ur Leukocyte Esterase Trace (Negative) H 07/18/17 15:22 Ur Culture Indicated? YES (NO) A 07/18/17 15:22 Diabetes panel 07/18/17 Range/Units 04:29 Sodium 139 (136-145) mEq/L Potassium 4.0 (3.5-4.5) mEq/L Chloride 102 (98-109) mEq/L Carbon Dioxide 25 (19-29) mEq/L BUN 28 H D (7-20) mg/dL Creatinine 5.64 H (0.57-1.11) mg/dL Glucose 136 H (70-99) mg/dL Calcium 7.1 L D (8.6-10.8) mg/dL Calcium panel 07/17/17 07/18/17 Range/Units 03:30 04:29 Calcium 7.1 L D (8.6-10.8) mg/dL 25-OH Vitamin D Total 29 L (30-80) ng/mL Pituitary panel 07/18/17 Range/Units 04:29 Sodium 139 (136-145) mEq/L Potassium 4.0 (3.5-4.5) mEq/L Chloride 102 (98-109) mEq/L Carbon Dioxide 25 (19-29) mEq/L BUN 28 H D (7-20) mg/dL Creatinine 5.64 H (0.57-1.11) mg/dL Glucose 136 H (70-99) mg/dL Calcium 7.1 L D (8.6-10.8) mg/dL Adrenal panel 07/18/17 Range/Units 04:29 Sodium 139 (136-145) mEq/L Potassium 4.0 (3.5-4.5) mEq/L Chloride 102 (98-109) mEq/L Carbon Dioxide 25 (19-29) mEq/L BUN 28 H D (7-20) mg/dL Creatinine 5.64 H (0.57-1.11) mg/dL Glucose 136 H (70-99) mg/dL Calcium 7.1 L D (8.6-10.8) mg/dL All other labs normal. Consult Discharge Plan - Plan Referrals: Na Johansen, TYLER [Primary Care Provider] - 07/24/17 8:00 am
[2017-07-18 20:33] LABS: Hematocrit 24.2 % (35.3-44.9); Hemoglobin 7.7 g/dL (11.5-15.4)
[2017-07-18 20:39] LABS: INR 1.3; Prothrombin Time 13.9 Seconds (9.4-12.1)
[2017-07-18] MEDS: Famotidine 20 MG TABLET PO SCH (21:14)
--- NOTE | 2017-07-18 22:17 | Nephrology Progress Note ---
Date of Encounter: 07/18/17 Time of Encounter: 22:15 - Assessment and Plan (1) Peripheral edema Current Visit: Yes Status: Acute Patient with volume overload. This may be diastolic dysfunction from her atrial fibrillation. We will evaluate for the need for UF tomorrow. (2) ESRD on dialysis Current Visit: Yes Status: Chronic Continue with dialysis Friday. Because of her volume overload state she may require dialysis/ultrafiltration on Friday. Patient was seen on dialysis today. (3) Gross hematuria Current Visit: Yes Status: Acute Urology evaluated. From a renal standpoint I am okay with a CT scan with contrast. This can be timed so that it is followed by dialysis either Friday or Friday. (4) Anemia in chronic kidney disease Current Visit: No Status: Acute Monitor hemoglobin and transfuse as needed. Received 1 unit Prbc while on dialysis. Qualifiers: Chronic kidney disease stage: on chronic dialysis Qualified Code(s): N18.6 - End stage renal disease; D63.1 - Anemia in chronic kidney disease; Z99.2 - Dependence on renal dialysis Subjective Principal diagnosis: ESRD on dialysis, hypocalcemia Interval history: Patient was seen and evaluated while she was on dialysis. She had no new complaint. She was still complaining of blood in her urostomy. Urology was by to evaluate her while she is on dialysis as well. Objective - Vital Signs Vital signs: Vital Signs Temp Pulse Resp BP Pulse Ox 07/18/17 19:27 99 F 80 16 143/71 97 07/18/17 18:09 98.5 F 82 18 151/76 96 07/18/17 15:59 98.7 F 99 19 149/76 98 07/18/17 14:52 98.7 F 79 18 156/71 97 07/18/17 14:37 99.0 F 81 18 160/65 97 07/18/17 12:50 98.0 F 17 145/69 07/18/17 12:40 151/72 07/18/17 12:25 167/80 07/18/17 11:55 162/82 07/18/17 11:25 166/83 07/18/17 10:55 151/73 07/18/17 10:25 144/74 07/18/17 10:18 97 07/18/17 09:55 128/54 07/18/17 09:25 98.0 F 17 126/51 07/18/17 07:01 98.3 F 71 18 148/81 97 07/18/17 03:25 97.6 F 69 20 150/67 98 07/17/17 23:58 98.6 F 73 20 138/70 94 07/17/17 23:03 17 91 Intake and Output 07/18/17 07/18/17 07/18/17 07:59 15:59 23:59 Intake Total 240 / 240 1080 / 1080 590 / 590 Output Total 0 / 0 1600 / 1600 Balance 240 / 240 -520 / -520 590 / 590 Intake: Oral 240 / 240 480 / 480 240 / 240 Blood Product 0 / 0 350 / 350 Rbcs Leuko Poor As-1 Irr 0 / 0 350 / 350 Unit [id number] Intake, Rinseback and 600 / 600 Flushes Output: Urine 0 / 0 Total Dialysis (HD) 1600 / 1600 Output Urostomy 0 / 0 Other: Meal Lunch Dinner Percent of Meal Consumed 100% 100% Weight 70.398 kg Hemodialysis Net Fluid 1000 Removed (mL) Patient Weight 07/18/17 23:59 Weight 70.398 kg - General Appearance General appearance: Present: well-developed, chronically ill, frail EENT: Present: ATNC Neck: Present: supple Respiratory: Present: course breath sounds Cardiology: Present: edema, regular rate Dialysis Vascular Access: Venous Catheter Integumentary: Present: warm and dry Neurologic: Present: alert and oriented x3 Musculoskeletal: Present: no cyanosis Psychiatric: Present: mood/affect appropriate - Lab 07/18/17 20:10 07/18/17 04:29 Most recent lab results Calcium 7.1 mg/dL (8.6-10.8) L D 07/18/17 04:29 Magnesium 1.7 mg/dL (1.6-2.6) 07/18/17 04:29 Consult Discharge Plan - Plan Referrals: Na Johansen CNP [Primary Care Provider] - 07/24/17 8:00 am
[2017-07-19] MEDS: *HR* HYDROcodone/Acet 5/325 mg TABLET PO PRN ×2 (02:01→22:16)
[2017-07-19 04:42] LABS: Eosinophils % 0.2 %; Hematocrit 24.2 % (35.3-44.9); Hemoglobin 7.8 g/dL (11.5-15.4); Immature Granulocytes % 0.3 % (0-4); Immature Platelets 5.5 % (1.1-6.1); Lymphocytes # 0.8 K/mcL (0.6-4.6); Lymphocytes % 13.6 %; Mean Corpuscular HGB Conc 32.2 g/dL (31.6-35.5); Mean Corpuscular Hemoglobin 30.5 pg (28.0-33.3); Mean Corpuscular Volume 94.5 fL (83.0-100.0); Mean Platelet Volume 11.7 fL (9.4-12.4); Monocytes # 0.2 K/mcL (0.0-1.3); Neutrophils # 4.9 K/mcL (1.6-8.9); Red Blood Count 2.56 M/mcL (3.82-4.97); Red Cell Distribution Width 15.4 % (11.5-14.5); Segmented Neutrophils % 81.9 %
[2017-07-19 05:02] LABS: Calcium 7.2 mg/dL (8.6-10.8); Magnesium 1.3 mg/dL (1.6-2.6); Potassium 4.9 mEq/L (3.5-4.5)
[2017-07-19 05:37] LABS: Platelet Count 54 K/mcL (140-400)
[2017-07-19 05:39] LABS: Platelet Estimate Decreased (Normal); Reactive Lymphocytes Present (Not Present)
[2017-07-19] MEDS: *HR* Morphine 2 MG/ML SYRINGE IVP PRN ×3 (06:54→16:48)
[2017-07-19] MEDS: Cholecalciferol (D-3) 1,000 UNIT TABLET PO SCH (07:59)
[2017-07-19] MEDS: Renal Vitamin 1 MG CAPSULE PO SCH (07:59)
[2017-07-19] MEDS: Lactobacillus 1 EACH CAP.SPRINK PO SCH ×2 (07:59→21:55)
[2017-07-19] MEDS: Nicotine 21 MG PATCH.TD24 TD SCH (07:59)
[2017-07-19] MEDS: Ondansetron 4 MG/2 ML VIAL IVP PRN (07:59)
[2017-07-19] MEDS: predniSONE 20 MG TABLET PO SCH (08:00)
[2017-07-19] MEDS: Diltiazem CD (24hr) 120 MG CAPSULE PO SCH (08:00)
[2017-07-19] MEDS ORDERED: *HR* Heparin 10,000 UNIT/10 ML VIAL IV PRN (08:58)
[2017-07-19] MEDS ORDERED: 0.9 % Sodium Chloride 250 ML IVC PRN (08:58)
[2017-07-19] MEDS ORDERED: 0.9 % Sodium Chloride 1,000 ML PRIME SCH (09:00)
[2017-07-19] MEDS: Ipratropium/Albuterol Neb 3 ML IH SCH ×2 (09:47→20:00)
[2017-07-19 10:26] LABS: Calcium 7.2 mg/dL (8.6-10.8); Potassium 4.1 mEq/L (3.5-4.5)
[2017-07-19] MEDS ORDERED: Magnesium Sulfate 2 GM in D5% in Water 100 ML IVPB ONE (10:36)
--- NOTE | 2017-07-19 10:40 | Internal Med Progress Note ---
<DanielRob ulloa - Last Filed: 07/19/17 10:37> Date of Encounter: 07/19/17 Time of Encounter: 10:37 - Assessment and plan (1) Hematuria Current Visit: Yes Status: Acute Assessment and plan: Urine is more clear today. Patient received 1 unit packed red blood cells yesterday. Hemoglobin stable. Urology feels that the patient would benefit from a CT scan of the abdomen and pelvis with contrast and we will work with nephrology appointments are on her dialysis. Continue to monitor. Qualifiers: Hematuria type: gross Qualified Code(s): R31.0 - Gross hematuria (2) ESRD (end stage renal disease) on dialysis Current Visit: No Status: Chronic Assessment and plan: Patient is currently in dialysis. Patient did have some oozing from her temporary HD site. At this point there is no active bleeding. IR was contacted and unfortunately the patient has no other available access points. Bleeding is likely related to low platelets in the setting of chronic disease on dialysis. We will transfuse platelets. Continue with regular scheduled dialysis. (3) Anemia in chronic kidney disease Current Visit: No Status: Acute Assessment and plan: Hemoglobin stable today. Continue weekly erythropoietin stimulating agents. Qualifiers: Chronic kidney disease stage: on chronic dialysis Qualified Code(s): N18.6 - End stage renal disease; D63.1 - Anemia in chronic kidney disease; Z99.2 - Dependence on renal dialysis (4) Hypomagnesemia Current Visit: No Status: Acute Assessment and plan: Magnesium 1.4 today. We will replete. (5) Paroxysmal a-fib Current Visit: Yes Status: Chronic Assessment and plan: Heart rate currently regular with rate control. Continue rate controlling medications. (6) Bilateral leg pain Current Visit: Yes Status: Acute Assessment and plan: Likely multifactorial with edema and octreotide abnormality contributing. Patient has minimal complaints at this time. DVT studies are negative. Continue to monitor. - Subjective Interval history: Patient seen and examined in dialysis. Patient states that she feels rough but has no specific complaints. She states that she feels rough due to having undergone dialysis and her kidney issues. She denies any pain, shortness of breath, cough, congestion, chest pain, abdominal pain, nausea, vomiting. - Constitutional Vitals: Temp Pulse Resp BP Pulse Ox 98.3 F 67 18 119/64 95 07/19/17 06:29 07/19/17 06:29 07/19/17 06:29 07/19/17 06:07/19/17 08:12 General appearance: Present: A&O X 3, no acute distress, loss of weight - Respiratory Respiratory exam: Present: rhonchi (Throughout). Absent: CTAB, rales, respiratory distress, wheezes, tachypnea - Cardiovascular Cardiovascular exam: Present: RRR. Absent: gallop, rubs, systolic murmur - GI/Abdominal GI/Abdominal exam: Present: normal bowel sounds, soft. Absent: distended, tenderness - Extremities Exam Extremities exam: Present: pedal edema (Trace). Absent: tenderness, warm Additional comments: The patient's right groin was examined. There is a temporary dialysis catheter present there is some dried blood on the dressing but there does not appear to be active bleeding. - Neurological Exam Neurological exam: Present: alert, CN II-XII intact, oriented X3, no focal deficits Internal Medicine: Result - Labs CBC & Chem 7: 07/19/17 04:30 07/19/17 10:06 Labs: Short CBC 07/18/17 07/18/17 07/19/17 Range/Units 14:35 20:10 04:30 WBC 6.9 6.0 (4.3-11.1) K/mcL Hgb 7.4 L 7.7 L 7.8 L (11.5-15.4) g/dL Hct 23.1 L 24.2 L 24.2 L (35.3-44.9) % Plt Count 62 L 54 L (140-400) K/mcL Neutrophils # 6.3 4.9 (1.6-8.9) K/mcL BMP 07/19/17 07/19/17 03:57 10:06 Sodium 136 137 Potassium 4.9 H 4.1 Chloride 102 101 Carbon Dioxide 25 28 BUN 22 H 17 Creatinine 4.22 H 3.30 H Glucose 134 H 116 H Calcium 7.2 L 7.2 L Urine 07/18/17 Range/Units 15:22 Urine Color Red A (Yellow) Urine Clarity Cloudy A (Clear) Urine pH 7.5 (5.0-8.0) pH Units Ur Specific [place] 1.014 (1.010-1.025) Urine Protein >=300 H (Neg-Trace) mg/dL Urine Glucose (UA) Normal (Normal) mg/dL - ABG Interpretation ABG results: PT/INR, D-dimer PT 13.9 Seconds (9.4-12.1) H 07/18/17 20:10 Consult Discharge Plan - Plan Referrals: Na Johansen CNP [Primary Care Provider] - 07/24/17 8:00 am <Elliott Moody - Last Filed: 07/19/17 18:45> Date of Encounter: 07/19/17 - Constitutional Vitals: Temp Pulse Resp BP Pulse Ox 98.5 F 70 16 123/54 93 07/19/17 15:35 07/19/17 15:35 07/19/17 15:35 07/19/17 15:35 07/19/17 15:35 Internal Medicine: Result - Labs CBC & Chem 7: 07/19/17 04:30 07/19/17 10:06 Labs: Short CBC 07/18/17 07/19/17 Range/Units 20:10 04:30 WBC 6.0 (4.3-11.1) K/mcL Hgb 7.7 L 7.8 L (11.5-15.4) g/dL Hct 24.2 L 24.2 L (35.3-44.9) % Plt Count 54 L (140-400) K/mcL Neutrophils # 4.9 (1.6-8.9) K/mcL BMP 07/19/17 07/19/17 03:57 10:06 Sodium 136 137 Potassium 4.9 H 4.1 Chloride 102 101 Carbon Dioxide 25 28 BUN 22 H 17 Creatinine 4.22 H 3.30 H Glucose 134 H 116 H Calcium 7.2 L 7.2 L - ABG Interpretation ABG results: PT/INR, D-dimer PT 13.9 Seconds (9.4-12.1) H 07/18/17 20:10 - Attending Attestation I examined this patient and my medical decision-making was reviewed with the Resident Physician. I agree with the documented findings, disposition and treatment plan as described except to the extent set forth below. Noted that patient has a bruising/ oozing from the site on her right groin where the triple lumen catheter is placed. Compression and change of dressing. Platelets transfusion was given. If further bruising/oozing continues then consider DDAVP. If DDAVP fails then triple-lumen catheter can be removed. I have discussed this case with corporate controller. And he agrees with the plan.
[2017-07-19] MEDS ORDERED: 0.9 % Sodium Chloride 2,000 ML ONE (11:32)
--- NOTE | 2017-07-19 12:47 | Nephrology Progress Note ---
Date of Encounter: 07/19/17 Time of Encounter: 12:45 - Assessment and Plan (1) Peripheral edema Current Visit: Yes Status: Acute Improved with ultrafiltration. (2) ESRD on dialysis Current Visit: Yes Status: Chronic Continue with dialysis Friday. Because of her volume overload state she was dialyzed Friday. Patient was seen on dialysis today. (3) Gross hematuria Current Visit: Yes Status: Acute Urology evaluated. From a renal standpoint I am okay with a CT scan with contrast. This can be timed so that it is followed by dialysis either Friday or Friday. (4) Anemia in chronic kidney disease Current Visit: No Status: Acute Monitor hemoglobin and transfuse as needed. Qualifiers: Chronic kidney disease stage: on chronic dialysis Qualified Code(s): N18.6 - End stage renal disease; D63.1 - Anemia in chronic kidney disease; Z99.2 - Dependence on renal dialysis Subjective Principal diagnosis: ESRD on dialysis, hypocalcemia Interval history: Patient was seen and evaluated while she was on dialysis. She had no new complaint. She feels that her left upper arm graft is better. She was complaining about her congestion. Objective - Vital Signs Vital signs: Vital Signs Temp Pulse Resp BP Pulse Ox 07/19/17 08:12 95 07/19/17 06:29 98.3 F 67 18 119/64 95 07/19/17 03:38 98.3 F 71 16 144/68 94 07/18/17 23:31 98.5 F 74 16 144/69 96 07/18/17 22:46 16 94 07/18/17 19:27 99 F 80 16 143/71 97 07/18/17 18:09 98.5 F 82 18 151/76 96 07/18/17 15:59 98.7 F 99 19 149/76 98 07/18/17 14:52 98.7 F 79 18 156/71 97 07/18/17 14:37 99.0 F 81 18 160/65 97 07/18/17 12:50 98.0 F 17 145/69 Intake and Output 07/18/17 07/19/17 07/19/17 23:59 07:59 15:59 Intake Total 590 / 590 300 / 300 240 / 240 Output Total 0 / 0 Balance 590 / 590 300 / 300 240 / 240 Intake: Oral 240 / 240 300 / 300 240 / 240 Blood Product 350 / 350 Rbcs Leuko Poor As-1 Irr 350 / 350 Unit [id number] Output: Urine 0 / 0 Other: Meal Dinner Breakfast Percent of Meal Consumed 100% 90% - General Appearance General appearance: Present: well-developed, well-nourished, chronically ill EENT: Present: ATNC Neck: Present: supple Respiratory: Present: course breath sounds, rhonchi Cardiology: Present: edema (Trace edema in the bilateral lower extremities.) Dialysis Vascular Access: Venous Catheter Integumentary: Present: warm and dry Neurologic: Present: alert and oriented x3 Musculoskeletal: Present: no cyanosis Psychiatric: Present: mood/affect appropriate - Lab 07/19/17 04:30 07/19/17 10:06 Most recent lab results Calcium 7.2 mg/dL (8.6-10.8) L 07/19/17 10:06 Magnesium 1.3 mg/dL (1.6-2.6) L 07/19/17 03:57 Consult Discharge Plan - Plan Referrals: Na Johansen CNP [Primary Care Provider] - 07/24/17 8:00 am
[2017-07-19] MEDS ORDERED: 0.9 % Sodium Chloride 250 ML ONE (13:36)
[2017-07-19] MEDS ORDERED: *HR* Morphine 2 MG/ML SYRINGE IVP ONE (16:52)
[2017-07-19] MEDS: *HR* Promethazine 25 MG/ML VIAL IVP PRN (18:48)
[2017-07-19] MEDS: Famotidine 20 MG TABLET PO SCH (21:56)
[2017-07-20] MEDS: Ondansetron 4 MG/2 ML VIAL IVP PRN ×2 (00:45→18:30)
[2017-07-20] MEDS: *HR* Morphine 2 MG/ML SYRINGE IVP PRN ×2 (00:45→12:08)
[2017-07-20] MEDS ORDERED: 0.9 % Sodium Chloride 250 ML ONE ×2 (02:37→11:58)
[2017-07-20] MEDS: DESMOPRESSIN IVPB SCH (03:33)
[2017-07-20] MEDS: SODIUM CHLORIDE 0.9% IVPB SCH (03:33)
[2017-07-20 04:01] LABS: Bilirubin,Urine Negative (Negative); Blood,Urine Large (Negative); Clarity,Urine Turbid (Clear); Color,Urine Red (Yellow); Glucose,Urine (UA) Normal (Normal); Ketones,Urine Negative (Negative); Leukocyte Esterase,Urine Moderate (Negative); Nitrite,Urine Negative (Negative); Protein,Urine 100 mg/dL (Neg-Trace); Specific Gravity,Urine 1.012 (1.010-1.025); Urobilinogen,Urine Normal (Normal)
[2017-07-20 04:23] LABS: RBC,Urine TNTC per hpf (0-3)
[2017-07-20 04:24] LABS: Bacteria,Urine Present per hpf (None-Few); WBC,Urine Present per hpf (0-3)
[2017-07-20 05:40] LABS: Eosinophils % 0.5 %; Hemoglobin 6.9 g/dL (11.5-15.4); Immature Granulocytes % 0.9 % (0-4); Mean Corpuscular HGB Conc 31.4 g/dL (31.6-35.5); Mean Corpuscular Hemoglobin 30.3 pg (28.0-33.3); Mean Corpuscular Volume 96.5 fL (83.0-100.0); Mean Platelet Volume 11.2 fL (9.4-12.4); Monocytes # 0.4 K/mcL (0.0-1.3); Monocytes % 4.7 %; Neutrophils # 6.1 K/mcL (1.6-8.9); Red Blood Count 2.28 M/mcL (3.82-4.97); Red Cell Distribution Width 15.4 % (11.5-14.5); Segmented Neutrophils % 80.9 %
[2017-07-20 05:42] LABS: Platelet Count 63 K/mcL (140-400)
[2017-07-20 05:51] LABS: INR 1.1; Prothrombin Time 12.2 Seconds (9.4-12.1)
[2017-07-20 05:54] LABS: Activated Partial Thrombo Time 23.9 Seconds (26.0-36.0)
[2017-07-20 05:58] LABS: Calcium 6.8 mg/dL (8.6-10.8); Magnesium 1.8 mg/dL (1.6-2.6); Potassium 4.8 mEq/L (3.5-4.5)
[2017-07-20] MEDS: *HR* HYDROcodone/Acet 5/325 mg TABLET PO PRN ×2 (06:06→18:30)
[2017-07-20] MEDS: Renal Vitamin 1 MG CAPSULE PO SCH (07:43)
[2017-07-20] MEDS: Lactobacillus 1 EACH CAP.SPRINK PO SCH ×2 (07:43→20:11)
[2017-07-20] MEDS: Cholecalciferol (D-3) 1,000 UNIT TABLET PO SCH (07:43)
[2017-07-20] MEDS: Diltiazem CD (24hr) 120 MG CAPSULE PO SCH (07:43)
[2017-07-20] MEDS: Nicotine 21 MG PATCH.TD24 TD SCH (07:44)
[2017-07-20] MEDS: predniSONE 20 MG TABLET PO SCH (07:45)
[2017-07-20] MEDS: *HR* Promethazine 25 MG/ML VIAL IVP PRN (07:55)
--- NOTE | 2017-07-20 08:42 | Internal Med Progress Note ---
<DonitaRob chen - Last Filed: 07/20/17 08:40> Date of Encounter: 07/20/17 Time of Encounter: 08:40 - Assessment and plan (1) Acute blood loss anemia Current Visit: Yes Status: Acute Assessment and plan: Hgb 6.9 today. Likely related to bleeding from HD site. Bleeding is easily controlled but does recur. Unfortunately there are no other access points for HD so the catheter needs to remain in place. Will attempt to use fistula during next HD session and if this is successful we can pull her temp HD line. Tranfuse 2 units pRBCs (2) Hematuria Current Visit: Yes Status: Acute Assessment and plan: Urine is more clear today. Patient received 1 unit packed red blood cells Friday. Hemoglobin decreased but this is likely related to bleeding at HD catheter site rather than hematuria. Urology feels that the patient would benefit from a CT scan of the abdomen and pelvis with contrast, will plan for this tomorrow before dialysis. Continue to monitor. Qualifiers: Hematuria type: gross Qualified Code(s): R31.0 - Gross hematuria (3) ESRD (end stage renal disease) on dialysis Current Visit: No Status: Chronic Assessment and plan: Patient is currently in dialysis. Patient does have some oozing from her temporary HD site. At this point there is no active bleeding after dressing change and pressure application by nursing. IR was contacted and unfortunately the patient has no other available access points. Hgb 6.9 today. Asymptomatic Bleeding is likely related to low platelets in the setting of chronic disease on dialysis. Patient had platelets yesterday, will transfuse 2u pRBCs today. Continue with regular scheduled dialysis. (4) Anemia in chronic kidney disease Current Visit: No Status: Acute Assessment and plan: Hemoglobin decreased today due to acute blood loss. Continue weekly erythropoietin stimulating agents. Qualifiers: Chronic kidney disease stage: on chronic dialysis Qualified Code(s): N18.6 - End stage renal disease; D63.1 - Anemia in chronic kidney disease; Z99.2 - Dependence on renal dialysis (5) Hypomagnesemia Current Visit: No Status: Acute Assessment and plan: Magnesium 1.8 today. Continue to monitor (6) Paroxysmal a-fib Current Visit: Yes Status: Chronic Assessment and plan: Heart rate currently regular with rate control. Continue rate controlling medications. Relative contraindication to anticoagulation given the patients low platelets and bleeding issues discussed above. (7) Bilateral leg pain Current Visit: Yes Status: Acute Assessment and plan: Likely multifactorial with edema and octreotide abnormality contributing. Patient has minimal complaints at this time. DVT studies are negative. Continue to monitor. - Subjective Interval history: Patient seen and examined at bedside. Patient states that she feels rough but has no specific complaints, states she feels slightly better today. She states that she feels rough due to having undergone dialysis and her kidney issues. She states she had some shortness of breath overnight but this has resolved. She denies any pain, cough, congestion, chest pain, abdominal pain, nausea, vomiting. - Constitutional Vitals: Temp Pulse Resp BP Pulse Ox 98.3 F 83 17 132/65 96 07/20/17 06:26 07/20/17 06:26 07/20/17 06:26 07/20/17 06:07/20/17 07:50 General appearance: Present: A&O X 3, no acute distress, loss of weight - Respiratory Respiratory exam: Present: rhonchi ([place], improved from yesterday). Absent : rales, respiratory distress, wheezes, tachypnea - Cardiovascular Cardiovascular exam: Present: RRR. Absent: gallop, rubs, systolic murmur - GI/Abdominal GI/Abdominal exam: Present: normal bowel sounds, soft. Absent: distended, tenderness - Extremities Exam Extremities exam: Present: pedal edema (trace), warm. Absent: tenderness Additional comments: Oozing and dry blood noted at site of R femoral HD line. - Neurological Exam Neurological exam: Present: alert, CN II-XII intact, oriented X3, no focal deficits Internal Medicine: Result - Labs CBC & Chem 7: 07/20/17 05:20 07/20/17 05:20 Labs: Short CBC 07/20/17 Range/Units 05:20 WBC 7.5 (4.3-11.1) K/mcL Hgb 6.9 L (11.5-15.4) g/dL Hct 22.0 L (35.3-44.9) % Plt Count 63 L (140-400) K/mcL Neutrophils # 6.1 (1.6-8.9) K/mcL BMP 07/19/17 07/20/17 10:06 05:20 Sodium 137 139 Potassium 4.1 4.8 H Chloride 101 102 Carbon Dioxide 28 30 H BUN 17 23 H Creatinine 3.30 H 3.97 H Glucose 116 H 147 H Calcium 7.2 L 6.8 L Urine 07/20/17 Range/Units Unknown Urine Color Red A (Yellow) Urine Clarity Turbid A (Clear) Urine pH 8.0 (5.0-8.0) pH Units Ur Specific [place] 1.012 (1.010-1.025) Urine Protein 100 H (Neg-Trace) mg/dL Urine Glucose (UA) Normal (Normal) mg/dL - ABG Interpretation ABG results: PT/INR, D-dimer PT 12.2 Seconds (9.4-12.1) H 07/20/17 05:20 Consult Discharge Plan - Plan Referrals: Na Johansen CNP [Primary Care Provider] - 07/24/17 8:00 am <Elliott Moody - Last Filed: 07/20/17 13:29> Date of Encounter: 07/20/17 - Constitutional Vitals: Temp Pulse Resp BP Pulse Ox 98.1 F 86 20 125/60 91 07/20/17 12:07 07/20/17 12:07 07/20/17 12:07 07/20/17 12:07 07/20/17 12:07 Internal Medicine: Result - Labs CBC & Chem 7: 07/20/17 05:20 07/20/17 05:20 Labs: Short CBC 07/20/17 Range/Units 05:20 WBC 7.5 (4.3-11.1) K/mcL Hgb 6.9 L (11.5-15.4) g/dL Hct 22.0 L (35.3-44.9) % Plt Count 63 L (140-400) K/mcL Neutrophils # 6.1 (1.6-8.9) K/mcL BMP 07/20/17 05:20 Sodium 139 Potassium 4.8 H Chloride 102 Carbon Dioxide 30 H BUN 23 H Creatinine 3.97 H Glucose 147 H Calcium 6.8 L Urine 07/20/17 Range/Units Unknown Urine Color Red A (Yellow) Urine Clarity Turbid A (Clear) Urine pH 8.0 (5.0-8.0) pH Units Ur Specific [place] 1.012 (1.010-1.025) Urine Protein 100 H (Neg-Trace) mg/dL Urine Glucose (UA) Normal (Normal) mg/dL - ABG Interpretation ABG results: PT/INR, D-dimer PT 12.2 Seconds (9.4-12.1) H 07/20/17 05:20 - Attending Attestation I examined this patient and my medical decision-making was reviewed with the Resident Physician. I agree with the documented findings, disposition and treatment plan as described except to the extent set forth below. will follow recommendations from nephrology.
[2017-07-20] MEDS: Ipratropium/Albuterol Neb 3 ML IH SCH ×2 (10:40→19:34)
[2017-07-20] MEDS: Menthol 9.1 MG LOZENGE MM PRN (12:15)
--- NOTE | 2017-07-20 14:47 | Nephrology Progress Note ---
Date of Encounter: 07/20/17 Time of Encounter: 14:45 - Assessment and Plan (1) Peripheral edema Current Visit: Yes Status: Acute Improved with ultrafiltration. (2) ESRD on dialysis Current Visit: Yes Status: Chronic Continue with dialysis Friday. Because of her volume overload state she was dialyzed Friday. (3) Gross hematuria Current Visit: Yes Status: Acute Urology evaluated. From a renal standpoint I am okay with a CT scan with contrast. This can be timed so that it is followed by dialysis either Friday or Friday. (4) Anemia in chronic kidney disease Current Visit: No Status: Acute Monitor hemoglobin and transfuse as needed. With ongoing bleeding from the catheter site will remove the catheter and attempt to use the patient's permanent access Friday. Qualifiers: Chronic kidney disease stage: on chronic dialysis Qualified Code(s): N18.6 - End stage renal disease; D63.1 - Anemia in chronic kidney disease; Z99.2 - Dependence on renal dialysis Subjective Principal diagnosis: ESRD on dialysis, hypocalcemia Interval history: Patient was seen and evaluated . She had no new complaint. Objective - Vital Signs Vital signs: Vital Signs Temp Pulse Resp BP Pulse Ox 07/20/17 12:22 98.7 F 84 22 141/68 94 07/20/17 12:07 98.1 F 86 20 125/60 91 07/20/17 12:05 98.2 F 81 20 116/57 94 07/20/17 10:59 98.4 F 96 17 116/62 94 07/20/17 10:40 16 132/65 93 07/20/17 07:50 96 07/20/17 06:26 98.3 F 83 17 132/65 96 07/20/17 03:56 86 122/61 07/20/17 03:54 98.2 F 85 16 122/62 95 07/20/17 03:17 98.7 F 90 24 150/70 95 07/20/17 03:06 98.6 F 87 18 137/73 96 07/20/17 03:00 96 123/61 07/20/17 00:44 98.4 F 81 16 119/62 95 07/19/17 20:01 16 94 07/19/17 19:49 98.7 F 72 16 126/65 91 07/19/17 15:35 98.5 F 70 16 123/54 93 Intake and Output 07/19/17 07/20/17 07/20/17 23:59 07:59 15:59 Intake Total 67.275 / 67.275 950 / 950 Output Total 0 / 0 Balance 67.275 / 67.275 950 / 950 Intake: IV Fluids 55.275 / 55.275 Ddavp 21.1 Mcg In 0.9 % 55.275 / 55.275 Sodium Chloride 50 ML @ 100 mls/hr IVPB ONCE MARIANO Rx#:[id number] Oral 0 / 0 600 / 600 Blood Product 350 / 350 Platelet Pheresis Lp Irr 2nd Unit [id number] Rbcs Leuko Poor As-1 350 / 350 Unit [id number] Output: Urine 0 / 0 Other: Meal Breakfast Percent of Meal Consumed 70% Weight 71.4 kg Patient Weight 07/20/17 23:59 Weight 71.4 kg - General Appearance General appearance: Present: well-developed, well-nourished EENT: Present: ATNC Neck: Present: supple Cardiology: Present: no edema, regular rate Dialysis Vascular Access: Venous Catheter Integumentary: Present: warm and dry Neurologic: Present: alert and oriented x3 Psychiatric: Present: mood/affect appropriate - Lab 07/20/17 05:20 07/20/17 05:20 Most recent lab results Calcium 6.8 mg/dL (8.6-10.8) L 07/20/17 05:20 Magnesium 1.8 mg/dL (1.6-2.6) 07/20/17 05:20 Consult Discharge Plan - Plan Referrals: Na Johansen CNP [Primary Care Provider] - 07/24/17 8:00 am
[2017-07-20] MEDS: Famotidine 20 MG TABLET PO SCH (20:11)
[2017-07-21] MEDS: *HR* HYDROcodone/Acet 5/325 mg TABLET PO PRN ×3 (02:15→17:49)
[2017-07-21] MEDS: *HR* Promethazine 25 MG/ML VIAL IVP PRN (02:15)
[2017-07-21] MEDS: DESMOPRESSIN IVPB SCH (03:42)
[2017-07-21] MEDS: SODIUM CHLORIDE 0.9% IVPB SCH (03:42)
[2017-07-21 04:07] LABS: Eosinophils % 0.3 %; Hemoglobin 6.9 g/dL (11.5-15.4); Immature Granulocytes % 0.6 % (0-4); Mean Platelet Volume 11.8 fL (9.4-12.4)
[2017-07-21 04:09] LABS: Hematocrit 22.5 % (35.3-44.9); Immature Platelets 4.3 % (1.1-6.1); Lymphocytes # 0.7 K/mcL (0.6-4.6); Mean Corpuscular HGB Conc 30.7 g/dL (31.6-35.5); Mean Corpuscular Hemoglobin 29.5 pg (28.0-33.3); Mean Corpuscular Volume 96.2 fL (83.0-100.0); Monocytes # 0.3 K/mcL (0.0-1.3); Monocytes % 4.5 %; Neutrophils # 6.1 K/mcL (1.6-8.9); Red Blood Count 2.34 M/mcL (3.82-4.97); Red Cell Distribution Width 16.7 % (11.5-14.5); Segmented Neutrophils % 84.6 %
[2017-07-21 04:10] LABS: Platelet Count 51 K/mcL (140-400)
[2017-07-21 04:17] LABS: Calcium 6.5 mg/dL (8.6-10.8); Magnesium 1.7 mg/dL (1.6-2.6); Potassium 5.6 mEq/L (3.5-4.5)
[2017-07-21] MEDS: Ipratropium/Albuterol Neb 3 ML IH SCH (07:42)
[2017-07-21] MEDS: Ondansetron 4 MG/2 ML VIAL IVP PRN ×2 (08:00→21:16)
[2017-07-21] MEDS ORDERED: 0.9 % Sodium Chloride 250 ML IVC PRN (08:41)
[2017-07-21] MEDS ORDERED: 0.9 % Sodium Chloride 1,000 ML PRIME SCH (08:45)
[2017-07-21] MEDS: Renal Vitamin 1 MG CAPSULE PO SCH (08:52)
[2017-07-21] MEDS: Lactobacillus 1 EACH CAP.SPRINK PO SCH ×2 (08:52→21:07)
[2017-07-21] MEDS: Nicotine 21 MG PATCH.TD24 TD SCH (08:52)
[2017-07-21] MEDS: predniSONE 20 MG TABLET PO SCH (08:52)
[2017-07-21] MEDS: Cholecalciferol (D-3) 1,000 UNIT TABLET PO SCH (08:52)
[2017-07-21] MEDS: Diltiazem CD (24hr) 120 MG CAPSULE PO SCH (08:53)
--- NOTE | 2017-07-21 09:11 | Urology Progress Note ---
Date of Encounter: 07/21/17 Time of Encounter: 09:01 - Assessment and Plan (1) Gross hematuria Current Visit: Yes Status: Acute Assessment and plan: awaiting report on ct scan this AM. reviewed with Dr Medina. complex cyst in left kidney - not likely source of hematuria. no obvious hydronephrosis, ureteral stones or tumor. ileal conduit collapsed without distention or stranding. if ischemic, i would expect stranding around the diversion. still unknown source of hematuria. I dont see that the urine cytology was sent. will reorder. only other thought is a tagged RBC scan at the time of her bleeding. this still probably a low sensitivity test. All 3 urologists here at [facility] do not feel comfortable with major surgical intervention is patients with previous ileal conduit. will follow for now. call with questions. Progress Note Narrative: hgb 6.9 Objective Initial Vital Signs Temp Pulse Resp BP Pulse Ox 98.4 F 75 16 154/99 99 07/16/17 06:16 07/16/17 06:16 07/16/17 06:16 07/16/17 06:16 07/16/17 06:16 - Labs 07/21/17 03:40 07/21/17 03:40 Diabetes panel 07/21/17 Range/Units 03:40 Sodium 139 (136-145) mEq/L Potassium 5.6 H (3.5-4.5) mEq/L Chloride 104 (98-109) mEq/L Carbon Dioxide 25 (19-29) mEq/L BUN 36 H D (7-20) mg/dL Creatinine 5.71 H (0.57-1.11) mg/dL Glucose 110 H (70-99) mg/dL Calcium 6.5 L (8.6-10.8) mg/dL Calcium panel 07/21/17 Range/Units 03:40 Calcium 6.5 L (8.6-10.8) mg/dL Pituitary panel 07/21/17 Range/Units 03:40 Sodium 139 (136-145) mEq/L Potassium 5.6 H (3.5-4.5) mEq/L Chloride 104 (98-109) mEq/L Carbon Dioxide 25 (19-29) mEq/L BUN 36 H D (7-20) mg/dL Creatinine 5.71 H (0.57-1.11) mg/dL Glucose 110 H (70-99) mg/dL Calcium 6.5 L (8.6-10.8) mg/dL Adrenal panel 07/21/17 Range/Units 03:40 Sodium 139 (136-145) mEq/L Potassium 5.6 H (3.5-4.5) mEq/L Chloride 104 (98-109) mEq/L Carbon Dioxide 25 (19-29) mEq/L BUN 36 H D (7-20) mg/dL Creatinine 5.71 H (0.57-1.11) mg/dL Glucose 110 H (70-99) mg/dL Calcium 6.5 L (8.6-10.8) mg/dL Consult Discharge Plan - Plan Referrals: Na Johansen, TYLER [Primary Care Provider] - 07/24/17 8:00 am
--- NOTE | 2017-07-21 09:58 | Internal Med Progress Note ---
<Jovani Sylvester - Last Filed: 07/21/17 14:05> Date of Encounter: 07/21/17 Time of Encounter: 09:57 - Assessment and plan (1) Acute respiratory distress Current Visit: Yes Status: Acute Assessment and plan: - Likely secondary to fluid overload from CHF exacerbation - Reported weight gain of 30 pounds since 07/10/17 - Taking off fluid in hemodialysis - Patient is clinically improving, currently tolerating 2 L of oxygen via nasal cannula - No acute distress (2) Acute blood loss anemia Current Visit: Yes Status: Acute Assessment and plan: - Hgb 6.9 today. Stable from 6.9 yesterday - Transfuse an additional 2 units of packed red blood cells this afternoon during dialysis - Likely secondary to bleeding from HD site. Femoral temporary dialysis catheter pulled yesterday, no further bleeding - Attempted to use fistula this morning, is unable to. - Consulted IR, will place temporary dialysis catheter this afternoon for dialysis - Continue to monitor and transfusion if necessary (3) Gross hematuria Current Visit: Yes Status: Acute Assessment and plan: - Evaluated by urology, appreciate recommendations - CT abdomen shows left renal cyst, no obvious signs of malignancy. No intervention recommended at this time - Patient complains of no further symptoms, no other urinary symptoms. (4) Anemia in chronic kidney disease Current Visit: Yes Status: Chronic Assessment and plan: Hemoglobin stable today. Continue weekly erythropoietin stimulating agents. Qualifiers: Chronic kidney disease stage: on chronic dialysis Qualified Code(s): N18.6 - End stage renal disease; D63.1 - Anemia in chronic kidney disease; Z99.2 - Dependence on renal dialysis (5) ESRD (end stage renal disease) on dialysis Current Visit: Yes Status: Chronic Assessment and plan: Nephrology consulted, appreciate recommendations - Continue regular scheduled dialysis for fluid removal - Temporary dialysis catheter in left femoral placed by interventional radiology this morning - We will monitor closely for any further bleeding (6) Atrial fibrillation with rapid ventricular response Current Visit: Yes Status: Acute Assessment and plan: - Rate controlled with a heart rate of 86 most recently - Continue calcium channel lex, anti-coagulation held this time due to dialysis catheter placements and history of oozing from sites (7) DVT prophylaxis Current Visit: Yes Status: Acute Assessment and plan: Held SQ heparin due to hematuria on SCD's - Time Spent With Patient 25 - 35 minutes - Subjective Interval history: Patient was seen and examined at bedside this morning. She states she is still experiencing significant shortness of breath as well as nonproductive cough and chest congestion. She is also experiencing mild midsternal chest pain associated with her cough. She denies any symptoms of fevers, pain, nausea, vomiting, urinary symptoms. - Constitutional Vitals: Temp Pulse Resp BP Pulse Ox 97.9 F 86 16 125/64 92 07/21/17 07:01 07/21/17 07:01 07/21/17 07:01 07/21/17 07:01 07/21/17 07:01 General appearance: Present: A&O X 3, no acute distress, loss of weight Exam: Gen.: Vitals noted. No acute distress. AAOx3 HEENT: PERRL/EOMI, oropharynx clear, Normocephalic, atraumatic, moist mucous membranes Neck: Supple. No adenopathy. Cardiac: Irregularly irregular rhythm, no murmur, +S1/S2 Pulmonary: Increased respiratory effort, crackles appreciated diffusely. no wheezes, or rhonchi, equal chest expansion Abdomen: soft, nontender, BS noted, no guarding Back: Nontender throughout. MSK: ROM intact, no joint swelling noted Extremities: no BLE edema, nontender calf, no cyanosis or clubbing Neuro: A&Ox3, moves all extremities, no focal deficits Psych: Appropriate mood and behavior Internal Medicine: Result - Labs CBC & Chem 7: 07/21/17 03:40 07/21/17 03:40 Labs: Short CBC 07/21/17 Range/Units 03:40 WBC 7.2 (4.3-11.1) K/mcL Hgb 6.9 L (11.5-15.4) g/dL Hct 22.5 L (35.3-44.9) % Plt Count 51 L (140-400) K/mcL Neutrophils # 6.1 (1.6-8.9) K/mcL BMP 07/21/17 03:40 Sodium 139 Potassium 5.6 H Chloride 104 Carbon Dioxide 25 BUN 36 H D Creatinine 5.71 H Glucose 110 H Calcium 6.5 L - ABG Interpretation ABG results: PT/INR, D-dimer PT 12.2 Seconds (9.4-12.1) H 07/20/17 05:20 - Impressions Impressions Abdomen/Pelvis CT 07/21/17 08:15 IMPRESSION: 1. No urinary tract obstruction. There is a tiny nonobstructing left renal stone. There are bilateral renal cysts 2. Status post cystectomy with ileal conduit formation and colon resections with left-sided colostomy 3. Prominent bile ducts. Recommend correlation with any clinical findings of biliary obstruction 4. Status post cholecystectomy and hysterectomy 5. Bilateral pleural effusions and anasarca D/ / Jeevan Fisher MD / Jeevan Fisher MD Interpreting Provider: Jeevan Fisher MD Consult Discharge Plan - Plan Referrals: Na Johansen CNP [Primary Care Provider] - 07/24/17 8:00 am <Elliott Moody - Last Filed: 07/21/17 18:40> Date of Encounter: 07/21/17 - Constitutional Vitals: Temp Pulse Resp BP Pulse Ox 98.7 F 85 15 118/55 95 07/21/17 16:15 07/21/17 16:45 07/21/17 16:45 07/21/17 16:45 07/21/17 15:20 Internal Medicine: Result - Labs CBC & Chem 7: 07/21/17 03:40 07/21/17 03:40 Labs: Short CBC 07/21/17 Range/Units 03:40 WBC 7.2 (4.3-11.1) K/mcL Hgb 6.9 L (11.5-15.4) g/dL Hct 22.5 L (35.3-44.9) % Plt Count 51 L (140-400) K/mcL Neutrophils # 6.1 (1.6-8.9) K/mcL BMP 07/21/17 03:40 Sodium 139 Potassium 5.6 H Chloride 104 Carbon Dioxide 25 BUN 36 H D Creatinine 5.71 H Glucose 110 H Calcium 6.5 L - ABG Interpretation ABG results: PT/INR, D-dimer PT 12.2 Seconds (9.4-12.1) H 07/20/17 05:20 - Impressions Impressions Abdomen/Pelvis CT 07/21/17 08:15 IMPRESSION: 1. No urinary tract obstruction. There is a tiny nonobstructing left renal stone. There are bilateral renal cysts 2. Status post cystectomy with ileal conduit formation and colon resections with left-sided colostomy 3. Prominent bile ducts. Recommend correlation with any clinical findings of biliary obstruction 4. Status post cholecystectomy and hysterectomy 5. Bilateral pleural effusions and anasarca D/ / Jeevan Fisher MD / Jeevan Fisher MD Interpreting Provider: Jeevan Fisher MD - Attending Attestation I examined this patient and my medical decision-making was reviewed with the Resident Physician. I agree with the documented findings, disposition and treatment plan as described except to the extent set forth below.
[2017-07-21] MEDS ORDERED: 0.9 % Sodium Chloride 250 ML ONE ×2 (11:10→11:16)
--- NOTE | 2017-07-21 11:17 | Nephrology Progress Note ---
Date of Encounter: 07/21/17 Time of Encounter: 11:14 - Assessment and Plan (1) Peripheral edema Current Visit: Yes Status: Acute Address with additional UF/HD sessions. . (2) ESRD on dialysis Current Visit: Yes Status: Chronic Continue with dialysis Friday. Because of her volume overload state will add additional dialysis sessions as needed. . (3) Gross hematuria Current Visit: Yes Status: Acute Urology evaluated. Awaiting CT results. Urine clear today. (4) Anemia in chronic kidney disease Current Visit: No Status: Acute Monitor hemoglobin and transfuse as needed. With ongoing bleeding from the catheter site catheter was removed 07/20. Qualifiers: Chronic kidney disease stage: on chronic dialysis Qualified Code(s): N18.6 - End stage renal disease; D63.1 - Anemia in chronic kidney disease; Z99.2 - Dependence on renal dialysis Subjective Principal diagnosis: ESRD on dialysis, hypocalcemia Interval history: Patient was seen and evaluated . She had no new complaint. Her leg feels better after her temp line was removed. Objective - Vital Signs Vital signs: Vital Signs Temp Pulse Resp BP Pulse Ox 07/21/17 11:00 97.8 F 99 17 143/66 94 07/21/17 09:00 92 07/21/17 07:01 97.9 F 86 16 125/64 92 07/21/17 04:58 98.7 F 86 16 117/69 91 07/20/17 23:23 98.2 F 86 16 130/63 94 07/20/17 21:26 98.2 F 79 18 122/72 95 07/20/17 19:34 19 93 07/20/17 12:22 98.7 F 84 22 141/68 94 07/20/17 12:07 98.1 F 86 20 125/60 91 07/20/17 12:05 98.2 F 81 20 116/57 94 Intake and Output 07/20/17 07/21/17 07/21/17 23:59 07:59 15:59 Intake Total 380 / 380 Output Total 40 / 40 118 / 118 0 / 0 Balance 340 / 340 -118 / -118 0 / 0 Intake: Oral 380 / 380 Output: Urine 0 / 0 Emesis 118 / 118 Urostomy 40 / 40 Other: Meal Dinner Percent of Meal Consumed 100% Weight 72.4 kg Patient Weight 07/21/17 23:59 Weight 72.4 kg - General Appearance General appearance: Present: well-developed, well-nourished, chronically ill, frail EENT: Present: ATNC Neck: Present: supple Respiratory: Present: course breath sounds Cardiology: Present: edema, regular rate Integumentary: Present: warm and dry Neurologic: Present: alert and oriented x3 Musculoskeletal: Present: no cyanosis Psychiatric: Present: mood/affect appropriate - Lab 07/21/17 03:40 07/21/17 03:40 Most recent lab results Calcium 6.5 mg/dL (8.6-10.8) L 07/21/17 03:40 Magnesium 1.7 mg/dL (1.6-2.6) 07/21/17 03:40 Consult Discharge Plan - Plan Referrals: Na Johansen CNP [Primary Care Provider] - 07/24/17 8:00 am
[2017-07-21] MEDS: Benzonatate 100 MG CAPSULE PO PRN (12:37)
[2017-07-21] MEDS ORDERED: Heparin 1,000 UNITS/500 mL NS 500 ML ONE (12:53)
[2017-07-21] MEDS ORDERED: 0.9 % Sodium Chloride 500 ML ONE (12:54)
[2017-07-21] MEDS: *HR* Morphine 2 MG/ML SYRINGE IVP PRN (12:59)
[2017-07-21] MEDS ORDERED: 0.9 % Sodium Chloride 2,000 ML ONE (13:13)
[2017-07-21] MEDS ORDERED: *HR* Midazolam HCl 2 MG/2 ML VIAL IVP PRN (13:28)
[2017-07-21] MEDS ORDERED: *HR* FentaNYL (PF) 100 MCG/2 ML VIAL IVP PRN (13:28)
[2017-07-21] MEDS ORDERED: *HR* Heparin 5,000 UNIT/ML VIAL ONE (15:08)
--- NOTE | 2017-07-21 15:26 | Pre-Sedation Evaluation ---
Pre-sedation evaluation - Pre-sedation checklist Date of procedure: 07/21/17 Procedure: fistulagram Recent Vitals: Last Vital Signs Temp 98.1 F 07/21/17 11:37 Pulse 84 07/21/17 15:20 Resp 16 07/21/17 15:20 BP 121/65 07/21/17 15:20 Pulse Ox 95 07/21/17 15:20 H&P (including ROS) documented in medical record: Yes Previous reaction to sedatives/anesthetics: No Dietary Status: NPO after Midnight Airway Assessment: Patient can open mouth completely, TMJ function normal, Micrognathia (under-bite, receding chin) absent, Neck with adequate range of motion ASA Classification *see protocol: CLASS II-Mild systemic disease Plan of Care: Pt appropriate candidate for procedure/moderate/conscious sedation , Risks/benefits of procedure/sedation discussed w/ patient/family, If not NPO; Risk of intake outweiged by necessity to perform procedure
--- NOTE | 2017-07-21 15:28 | IR Procedure Note ---
Date of procedure: 07/21/17 Consent Obtained: Verbal consent, Written consent Timeout: Correct patient and procedure verified, Correct site verified, Time out performed, Skin prep completed Local anesthetic: Lidocaine 1% Indications: erythema around AVF Procedure Performed: fistulogram Site/Technique: LUE Results/Findings: stenosis at venous anastomosis tx'd with angioplasty Estimated blood loss (cc): 5 Complications: None; Tolerated procedure well Post Procedure Treatment Plan: left arm straight for 2 hours
[2017-07-21] MEDS ORDERED: Furosemide 40 MG/4 ML VIAL IVP ONE (16:59)
[2017-07-21 18:51] LABS: Hematocrit 24.2 % (35.3-44.9); Hemoglobin 7.5 g/dL (11.5-15.4)
[2017-07-21] MEDS: Budesonide/Formoterol 160/4.5 MDI IH SCH (20:23)
[2017-07-21] MEDS: Famotidine 20 MG TABLET PO SCH (21:07)
[2017-07-21] MEDS: Albuterol 2.5 MG/3 ML NEBULIZER IH PRN (21:44)
[2017-07-22] MEDS: *HR* HYDROcodone/Acet 5/325 mg TABLET PO PRN ×3 (00:24→21:38)
[2017-07-22 04:10] LABS: Immature Granulocytes % 0.5 % (0-4); Monocytes % 3.3 %
[2017-07-22 04:12] LABS: Hemoglobin 7.4 g/dL (11.5-15.4); Immature Platelets 6.2 % (1.1-6.1); Lymphocytes # 0.7 K/mcL (0.6-4.6); Mean Corpuscular HGB Conc 30.8 g/dL (31.6-35.5); Mean Corpuscular Hemoglobin 29.6 pg (28.0-33.3); Mean Platelet Volume 11.2 fL (9.4-12.4); Monocytes # 0.3 K/mcL (0.0-1.3); Neutrophils # 6.5 K/mcL (1.6-8.9); Platelet Count 42 K/mcL (140-400); Red Cell Distribution Width 16.8 % (11.5-14.5); Segmented Neutrophils % 87.2 %
[2017-07-22 04:15] LABS: Calcium 6.6 mg/dL (8.6-10.8); Magnesium 1.5 mg/dL (1.6-2.6); Phosphorous 8.1 mg/dL (2.3-4.7)
[2017-07-22] MEDS: Albuterol 2.5 MG/3 ML NEBULIZER IH PRN ×2 (04:25→22:33)
[2017-07-22] MEDS ORDERED: Nitroglycerin 1 INCH/GM PACKET TP ONE (04:36)
[2017-07-22] MEDS ORDERED: *HR* Morphine 2 MG/ML SYRINGE ONE (04:47)
[2017-07-22] MEDS: *HR* Morphine 2 MG/ML SYRINGE IVP PRN ×2 (04:50→14:11)
[2017-07-22] MEDS: Ondansetron 4 MG/2 ML VIAL IVP PRN ×2 (07:18→21:38)
[2017-07-22] MEDS ORDERED: 0.9 % Sodium Chloride 250 ML IVC PRN (08:40)
[2017-07-22] MEDS ORDERED: 0.9 % Sodium Chloride 1,000 ML PRIME SCH (08:45)
[2017-07-22] MEDS: Nicotine 21 MG PATCH.TD24 TD SCH (09:23)
[2017-07-22] MEDS: Lactobacillus 1 EACH CAP.SPRINK PO SCH ×2 (09:23→20:38)
[2017-07-22] MEDS: predniSONE 20 MG TABLET PO SCH (09:23)
[2017-07-22] MEDS: Renal Vitamin 1 MG CAPSULE PO SCH (09:23)
[2017-07-22] MEDS: Diltiazem CD (24hr) 120 MG CAPSULE PO SCH (09:23)
[2017-07-22] MEDS ORDERED: Albuterol 2.5 MG/3 ML NEBULIZER IH SCH (10:00)
--- NOTE | 2017-07-22 10:08 | Nephrology Progress Note ---
Date of Encounter: 07/22/17 Time of Encounter: 10:06 - Assessment and Plan (1) ESRD (end stage renal disease) on dialysis Current Visit: Yes Status: Chronic Fistulogram performed yesterday-stenosis at venous anastomosis tx'd with angioplasty HD today Continue renal diet Avoid nephrotoxins if possible (2) Generalized weakness Current Visit: Yes Status: Acute per primary team (3) Hypocalcemia Current Visit: Yes Status: Acute Ca+ 6.6 Will use a higher Ca+ bath in dialysis as needed (4) Anemia in chronic kidney disease Current Visit: Yes Status: Chronic Hg 7.7 Goal 10-11 Transfuse per parameters Qualifiers: Chronic kidney disease stage: on chronic dialysis Qualified Code(s): N18.6 - End stage renal disease; D63.1 - Anemia in chronic kidney disease; Z99.2 - Dependence on renal dialysis (5) Hyperkalemia Current Visit: No Status: Acute K+ 6.0 To have dialysis today which should bring down K+ level Will change to a 1 K+ bath if needed. Subjective Principal diagnosis: ESRD on dialysis, hypocalcemia Interval history: Patient seen and examined in dialysis. States she is feeling better. Objective - Vital Signs Vital signs: Vital Signs Temp Pulse Resp BP Pulse Ox 07/22/17 06:31 98.5 F 80 16 135/54 07/22/17 04:25 23 99 07/22/17 03:25 97.8 F 83 20 123/74 98 07/21/17 23:09 98.0 F 84 19 138/64 97 07/21/17 21:44 24 96 07/21/17 20:23 17 97 07/21/17 19:17 97.4 F L 86 17 157/72 96 07/21/17 16:45 85 15 118/55 07/21/17 16:30 82 15 118/70 07/21/17 16:15 98.7 F 15 124/63 07/21/17 16:05 117/63 07/21/17 16:00 98.7 F 15 116/58 07/21/17 15:20 84 16 121/65 95 07/21/17 15:15 84 15 118/62 97 07/21/17 15:10 82 16 136/71 100 07/21/17 15:04 81 16 117/65 98 07/21/17 15:01 83 15 117/65 99 07/21/17 14:56 83 16 117/66 98 07/21/17 14:51 83 16 121/64 100 07/21/17 14:46 85 16 116/62 99 07/21/17 14:41 84 16 126/66 98 07/21/17 14:37 97.9 F 85 18 138/60 07/21/17 14:32 81 16 113/59 95 07/21/17 11:37 98.1 F 94 20 127/80 94 07/21/17 11:22 98.1 F 93 18 130/62 94 07/21/17 11:00 97.8 F 99 17 143/66 94 Intake and Output 07/21/17 07/22/17 07/22/17 23:59 07:59 15:59 Intake Total 950 / 950 240 / 240 240 / 240 Output Total 0 / 0 30 / 30 Balance 950 / 950 240 / 240 210 / 210 Intake: Oral 0 / 0 240 / 240 240 / 240 Blood Product 350 / 350 Rbcs Leuko Poor As-1 350 / 350 Unit [id number] Intake, Rinseback and 600 / 600 Flushes Output: Urine 0 / 0 Stool 30 / 30 Total Dialysis (HD) 0 / 0 Output Other: Meal Breakfast Percent of Meal Consumed 100% Stool Size Moderate Stool Consistency liquid Stool Color Brown Brown Weight 76.4 kg Hemodialysis Net Fluid 0 Removed (mL) Patient Weight 07/22/17 23:59 Weight 76.4 kg - General Appearance General appearance: Present: chronically ill, frail EENT: Present: ATNC, mucous membranes moist, hearing intact, vision intact Neck: Present: supple Respiratory: Present: rhonchi (much improved) Cardiology: Present: no edema, normal S1, normal S2 Dialysis Vascular Access: Arteriovenous Fistula Gastrointestinal: Present: no tenderness, no guarding Integumentary: Present: warm and dry Neurologic: Present: alert and oriented x3 Psychiatric: Present: mood/affect appropriate, cooperative - Lab 07/22/17 03:40 07/22/17 03:40 Most recent lab results Calcium 6.6 mg/dL (8.6-10.8) L 07/22/17 03:40 Phosphorus 8.1 mg/dL (2.3-4.7) H 07/22/17 03:40 Magnesium 1.5 mg/dL (1.6-2.6) L 07/22/17 03:40 Consult Discharge Plan - Plan Referrals: Na Johansen CNP [Primary Care Provider] - 07/24/17 8:00 am
[2017-07-22] MEDS: Budesonide/Formoterol 160/4.5 MDI IH SCH ×2 (10:24→22:30)
[2017-07-22] MEDS ORDERED: Heparin 1,000 UNITS/500 mL NS 500 ML ONE (12:43)
--- NOTE | 2017-07-22 13:09 | Internal Med Progress Note ---
<Jovani Sylvester - Last Filed: 07/22/17 15:45> Date of Encounter: 07/22/17 Time of Encounter: 15:32 - Assessment and plan (1) Acute respiratory distress Current Visit: Yes Status: Acute Assessment and plan: - Likely secondary to fluid overload from CHF exacerbation - Reported weight gain of 30 pounds since 07/10/17 - Taking off fluid in hemodialysis. has been unable to receive HD due to poor access. Successful today - Currently tolerating 4 L of oxygen via nasal cannula. States no improvement from shortness of breath - Monitor very closely and increase O2 if necessary. - No acute distress (2) Acute blood loss anemia Current Visit: Yes Status: Acute Assessment and plan: - H/H of 7.4/24.0, Improved from yesterday at 6.8 after 1 unit PRBCs yesterday - Likely secondary to bleeding from HD site. Femoral temporary dialysis catheter pulled yesterday, significant bruising today with blood in ostomy bag. Getting platelets after HD today - Continue to monitor and transfusion if necessary (3) Gross hematuria Current Visit: Yes Status: Acute Assessment and plan: - Evaluated by urology, appreciate recommendations - CT abdomen shows left renal cyst, no obvious signs of malignancy. No intervention recommended at this time - Patient complains of no further symptoms, no other urinary symptoms. (4) Anemia in chronic kidney disease Current Visit: Yes Status: Chronic Assessment and plan: Hemoglobin stable today after transfusion. Continue weekly erythropoietin stimulating agents. Qualifiers: Chronic kidney disease stage: on chronic dialysis Qualified Code(s): N18.6 - End stage renal disease; D63.1 - Anemia in chronic kidney disease; Z99.2 - Dependence on renal dialysis (5) ESRD (end stage renal disease) on dialysis Current Visit: Yes Status: Chronic Assessment and plan: Nephrology consulted, appreciate recommendations - HD this afternoon - Continue regular scheduled dialysis for fluid removal - Temporary dialysis catheter in left femoral - We will monitor closely for any further bleeding (6) Atrial fibrillation with rapid ventricular response Current Visit: Yes Status: Acute Assessment and plan: - Rate controlled with a heart rate of 86 most recently - Episode of RVR this afternoon. Given metoprolol 5 mg IV. - Continue calcium channel lex, anti-coagulation held this time due to dialysis catheter placements and history of oozing from sites (7) DVT prophylaxis Current Visit: Yes Status: Acute Assessment and plan: Held SQ heparin due to hematuria, low platelets, bleeding. on SCD's - Time Spent With Patient 25 - 35 minutes - Subjective Interval history: Patient was seen and examined at bedside this morning. She states she is still experiencing significant shortness of breath as well as nonproductive cough and chest congestion. She is also complaining of swelling in b/l UE and LE today. She denies any symptoms of fevers, pain, nausea, vomiting, urinary symptoms. - Constitutional Vitals: Temp Pulse Resp BP Pulse Ox 98.5 F 80 16 135/54 99 07/22/17 06:31 07/22/17 06:31 07/22/17 06:31 07/22/17 06:31 07/22/17 04:25 General appearance: Present: A&O X 3, no acute distress, loss of weight Exam: Gen.: Vitals noted. No acute distress. AAOx3 HEENT: PERRL/EOMI, oropharynx clear, Normocephalic, atraumatic Neck: Supple. No adenopathy. Cardiac: RRR, no murmur, +S1/S2 Pulmonary: Significant Rales diffusely. equal chest expansion Abdomen: soft, nontender, BS noted, no guarding. Ostomy bag with blood-tinged fluid. Back: Nontender throughout. MSK: ROM intact, no joint swelling noted Extremities: Mild upper and lower extremity edema bilaterally, nontender calf, no cyanosis or clubbing Skin: The skin bruising over entire body including neck, upper extremities. Neuro: A&Ox3, moves all extremities, no focal deficits Psych: Appropriate mood and behavior Internal Medicine: Result - Labs CBC & Chem 7: 07/22/17 03:40 07/22/17 03:40 Labs: Short CBC 07/21/17 07/22/17 Range/Units 18:40 03:40 WBC 7.5 (4.3-11.1) K/mcL Hgb 7.5 L 7.4 L (11.5-15.4) g/dL Hct 24.2 L 24.0 L (35.3-44.9) % Plt Count 42 L (140-400) K/mcL Neutrophils # 6.5 (1.6-8.9) K/mcL BMP 07/22/17 03:40 Sodium 136 Potassium 6.0 H Chloride 102 Carbon Dioxide 24 BUN 52 H D Creatinine 7.09 H Glucose 123 H Calcium 6.6 L Cardiac Enzymes 07/22/17 Range/Units 04:45 Troponin I 0.02 (0-0.03) ng/mL - ABG Interpretation ABG results: PT/INR, D-dimer PT 12.2 Seconds (9.4-12.1) H 07/20/17 05:20 - Impressions Impressions Chest X-Ray 07/22/17 04:35 IMPRESSION: Progressive left-sided pleuroparenchymal disease with stable pulmonary edema and right basilar airspace disease. D/ / Jonn Hernández MD / Jonn Hernández MD Interpreting Provider: Jonn Hernández MD Consult Discharge Plan - Plan Referrals: Na Johansen, ACCOUNTS PAYABLE COORDINATOR [Primary Care Provider] - 07/24/17 8:00 am <Elliott Moody - Last Filed: 07/22/17 18:25> Date of Encounter: 07/22/17 - Constitutional Vitals: Temp Pulse Resp BP Pulse Ox 97.7 F 96 18 100/56 96 07/22/17 17:43 07/22/17 17:43 07/22/17 17:43 07/22/17 17:43 07/22/17 17:43 Internal Medicine: Result - Labs CBC & Chem 7: 07/22/17 03:40 07/22/17 03:40 Labs: Short CBC 07/21/17 07/22/17 Range/Units 18:40 03:40 WBC 7.5 (4.3-11.1) K/mcL Hgb 7.5 L 7.4 L (11.5-15.4) g/dL Hct 24.2 L 24.0 L (35.3-44.9) % Plt Count 42 L (140-400) K/mcL Neutrophils # 6.5 (1.6-8.9) K/mcL BMP 07/22/17 03:40 Sodium 136 Potassium 6.0 H Chloride 102 Carbon Dioxide 24 BUN 52 H D Creatinine 7.09 H Glucose 123 H Calcium 6.6 L Cardiac Enzymes 07/22/17 Range/Units 04:45 Troponin I 0.02 (0-0.03) ng/mL - ABG Interpretation ABG results: PT/INR, D-dimer PT 12.2 Seconds (9.4-12.1) H 07/20/17 05:20 - Impressions Impressions AV Shunt Angiogram 07/21/17 00:00 IMPRESSION: At least moderate stenosis at the venous anastomosis of the graft, successfully treated with balloon angioplasty. D/ / 07/22/2017 13:20:17 Khris Garza MD / Christina Dale Interpreting Provider: Khris Garza MD Abdomen/Pelvis/Transvag US 07/21/17 00:00 IMPRESSION: No evidence of a patent pseudoaneurysm. D/ / Khris Garza MD / Khris Garza MD Interpreting Provider: Khris Garza MD Guidance Needle Placement Ultrasound 07/21/17 00:00 IMPRESSION: At least moderate stenosis at the venous anastomosis of the graft, successfully treated with balloon angioplasty. D/ / 07/22/2017 13:20:17 Khris Garza MD / Christina Dale Interpreting Provider: Khris Garza MD CALENDAR CONTROL CLERK BLOOD BANK, Venous 07/21/17 00:00 IMPRESSION: At least moderate stenosis at the venous anastomosis of the graft, successfully treated with balloon angioplasty. D/ / 07/22/2017 13:20:17 Khris Garza MD / Christina Dale Interpreting Provider: Khris Garza MD Guidance Needle Placement Ultrasound 07/22/17 00:00 IMPRESSION: Successful ultrasound and fluoroscopy guided non-tunneled temporary hemodialysis catheter placement. D/ / Jet Johansen MD / Jet Johansen MD Interpreting Provider: Jet Johansen MD Insertion Non-Tunneled Catheter 07/22/17 00:00 IMPRESSION: Successful ultrasound and fluoroscopy guided non-tunneled temporary hemodialysis catheter placement. D/ / Jet Johansen MD / Jet Johansen MD Interpreting Provider: Jet Johansen MD Chest X-Ray 07/22/17 04:35 IMPRESSION: Progressive left-sided pleuroparenchymal disease with stable pulmonary edema and right basilar airspace disease. D/ / Jonn Hernández MD / Jonn Hernández MD Interpreting Provider: Jonn Hernández MD - Attending Attestation I examined this patient and my medical decision-making was reviewed with the Resident Physician. I agree with the documented findings, disposition and treatment plan as described except to the extent set forth below.
[2017-07-22] MEDS ORDERED: 0.9 % Sodium Chloride 250 ML ONE (13:59)
[2017-07-22] MEDS ORDERED: *HR* Metoprolol 5 MG/5 ML VIAL IVP ONE ×4 (15:52→16:09)
[2017-07-22] MEDS ORDERED: Albumin 25% 12.5gm/50mL 25.0 GM/100 ML IV.SOLN ONE (16:04)
[2017-07-22] MEDS ORDERED: Albumin 25% 25gram/100mL 25 GM/100 ML IV.SOLN IVPB ONE (16:07)
--- NOTE | 2017-07-22 18:31 | Electrocardiograph Report ---
[place] [id number] Test Date: 2017-07-22 Pat Name: Vannessa Parra Department: 112 Room: [facility], [place] Gender: F Consumer Services Advisor: [facility] : [id number] Requested By: Jarrett Osorio Order Number: [id number] Reading MD: Ashley Falcon Measurements Intervals [place] Rate: 84 P: -7 PA: 133 QRS: 18 QRSD: 92 T: 137 QT: 362 QTc: 402 Interpretive Statements SINUS RHYTHM NONSPECIFIC T-WAVE ABNORMALITY Electronically Signed On 07-22-2017 18:29:55 EDT by Ashley Falcon
[2017-07-22] MEDS: Famotidine 20 MG TABLET PO SCH (20:38)
[2017-07-23] MEDS: *HR* Morphine 2 MG/ML SYRINGE IVP PRN ×3 (00:28→20:30)
[2017-07-23 06:07] LABS: Eosinophils % 0.2 %; Hematocrit 23.4 % (35.3-44.9); Hemoglobin 7.3 g/dL (11.5-15.4); Immature Granulocytes % 0.3 % (0-4); Immature Platelets 8.2 % (1.1-6.1); Lymphocytes # 0.5 K/mcL (0.6-4.6); Lymphocytes % 8.1 %; Mean Corpuscular HGB Conc 31.2 g/dL (31.6-35.5); Mean Corpuscular Hemoglobin 29.8 pg (28.0-33.3); Mean Corpuscular Volume 95.5 fL (83.0-100.0); Mean Platelet Volume 12.2 fL (9.4-12.4); Monocytes # 0.2 K/mcL (0.0-1.3); Monocytes % 3.6 %; Neutrophils # 5.1 K/mcL (1.6-8.9); Red Blood Count 2.45 M/mcL (3.82-4.97); Red Cell Distribution Width 17.6 % (11.5-14.5); Segmented Neutrophils % 87.8 %
[2017-07-23 07:15] LABS: Platelet Count 37 K/mcL (140-400)
[2017-07-23 07:16] LABS: Calcium 6.9 mg/dL (8.6-10.8); Magnesium 1.7 mg/dL (1.6-2.6)
[2017-07-23] MEDS ORDERED: 0.9 % Sodium Chloride 250 ML IVC PRN (08:15)
[2017-07-23] MEDS ORDERED: 0.9 % Sodium Chloride 1,000 ML PRIME SCH (08:15)
[2017-07-23] MEDS ORDERED: *HR* Heparin 10,000 UNIT/10 ML VIAL IV PRN (08:15)
[2017-07-23] MEDS: Lactobacillus 1 EACH CAP.SPRINK PO SCH ×2 (08:21→20:28)
[2017-07-23] MEDS: Nicotine 21 MG PATCH.TD24 TD SCH (08:21)
[2017-07-23] MEDS: Renal Vitamin 1 MG CAPSULE PO SCH (08:21)
[2017-07-23] MEDS: predniSONE 20 MG TABLET PO SCH (08:21)
[2017-07-23] MEDS: Diltiazem CD (24hr) 120 MG CAPSULE PO SCH (08:21)
[2017-07-23] MEDS: Menthol 9.1 MG LOZENGE MM PRN (08:27)
[2017-07-23] MEDS ORDERED: 0.9 % Sodium Chloride 2,000 ML ONE (08:58)
--- NOTE | 2017-07-23 09:47 | Nephrology Progress Note ---
Date of Encounter: 07/23/17 Time of Encounter: 09:44 - Assessment and Plan (1) ESRD (end stage renal disease) on dialysis Current Visit: Yes Status: Chronic HD today using temp HD cath today Will have surgery see patient re: fistula still not working Continue renal diet Avoid nephrotoxins if possible (2) Generalized weakness Current Visit: Yes Status: Acute per primary team (3) Hypocalcemia Current Visit: Yes Status: Acute Ca+ 6.9 Will use a higher Ca+ bath in dialysis as needed (4) Anemia in chronic kidney disease Current Visit: Yes Status: Chronic Hg 7.3 Goal 10-11 Transfuse per parameters Qualifiers: Chronic kidney disease stage: on chronic dialysis Qualified Code(s): N18.6 - End stage renal disease; D63.1 - Anemia in chronic kidney disease; Z99.2 - Dependence on renal dialysis (5) Hyperkalemia Current Visit: No Status: Resolved Subjective Principal diagnosis: ESRD on dialysis, hypocalcemia Interval history: Patient seen and examined in dialysis. Using temp HD cath today Objective - Vital Signs Vital signs: Vital Signs Temp Pulse Resp BP Pulse Ox 07/23/17 08:35 94 07/23/17 07:50 98.1 F 80 15 153/66 94 07/22/17 23:29 97.3 F L 82 17 120/56 92 07/22/17 22:30 20 98 07/22/17 19:35 98.2 F 84 19 122/62 91 07/22/17 17:43 97.7 F 96 18 100/56 96 07/22/17 16:55 97.9 F 20 103/52 07/22/17 16:40 98/46 07/22/17 16:25 104/53 07/22/17 16:10 107/52 07/22/17 15:55 102/54 07/22/17 15:25 113/53 07/22/17 15:24 98.3 F 79 18 113/53 07/22/17 15:03 98.3 F 82 18 119/52 07/22/17 14:55 116/54 07/22/17 14:48 98.7 F 83 18 122/53 07/22/17 14:25 123/60 07/22/17 13:55 122/65 07/22/17 13:40 98.7 F 18 125/65 07/22/17 09:55 97.5 F L 18 131/65 Intake and Output 07/22/17 07/23/17 07/23/17 23:59 07:59 15:59 Intake Total 0 / 0 100 / 100 Output Total 4659 / 4659 800 / 800 0 / 0 Balance -4659 / -4659 -800 / -800 100 / 100 Intake: Oral 0 / 0 100 / 100 Output: Urine 0 / 0 Stool 800 / 800 Total Dialysis (HD) Output 4659 / 4659 Other: Meal Breakfast Percent of Meal Consumed 75% Stool Consistency liquid Stool Color Brown # Bowel Movements 2 Hemodialysis Net Fluid Removed 4689 (mL) - General Appearance General appearance: Present: cachectic, chronically ill, frail EENT: Present: ATNC, mucous membranes moist, hearing intact, vision intact Neck: Present: supple Respiratory: Present: course breath sounds, rhonchi Cardiology: Present: no edema, normal S1, normal S2 Dialysis Vascular Access: Venous Catheter Gastrointestinal: Present: no tenderness, no guarding Integumentary: Present: warm and dry Neurologic: Present: alert and oriented x3 Psychiatric: Present: mood/affect appropriate, cooperative - Lab 07/23/17 04:10 07/23/17 04:10 Most recent lab results Calcium 6.9 mg/dL (8.6-10.8) L 07/23/17 04:10 Phosphorus 8.1 mg/dL (2.3-4.7) H 07/22/17 03:40 Magnesium 1.7 mg/dL (1.6-2.6) 07/23/17 04:10 Consult Discharge Plan - Plan Referrals: Na Johansen, SUPERVISING BAILIFF [Primary Care Provider] - 07/24/17 8:00 am (Please follow up with Na Johansen)
[2017-07-23] MEDS: Budesonide/Formoterol 160/4.5 MDI IH SCH ×2 (10:24→20:42)
[2017-07-23] MEDS ORDERED: Calcium Gluconate 2,000 MG in D5% in Water 100 ML IVPB ONE (11:09)
[2017-07-23] MEDS: *HR* HYDROcodone/Acet 5/325 mg TABLET PO PRN (11:24)
[2017-07-23 12:27] LABS: Bilirubin,Direct 0.4 mg/dL (0.0-0.5); Bilirubin,Indirect 0.4 mg/dL (0.0-1.2); Bilirubin,Total 0.8 mg/dL (0.2-1.2)
[2017-07-23] MEDS ORDERED: ceFAZolin 2,000 MG in D5% in Water 100 ML IVPB ONE (13:10)
--- NOTE | 2017-07-23 13:21 | Vascular/Endovasc Consult Note ---
Date of Encounter: 07/23/17 Time of Encounter: 12:45 Assessment and Plan (1) Thrombocytopenia Current Visit: Yes Status: Chronic Patient has thrombocytopenia to the level of 37,000. Due to the need for surgery platelet transfusions are ordered for tomorrow morning preoperatively. (2) ESRD on dialysis Current Visit: Yes Status: Chronic Patient with a proximally to a [id number] left upper arm AV shunt. She has had endovascular interventions which have been apparently unsuccessful. Due to the physical exam I will request a duplex scan of the upper arm AV shunt today. Tentatively plan on surgical exploration and potential revision of the left upper arm AV shunt tomorrow. Platelet transfusions are ordered preoperatively due to the patient's thrombocytopenia. - History of Present Illness Consult date: 07/23/17 Consult reason: Malfunction of left upper extremity AV access Chief complaint: Multiple complaints. See admitting history and physical. History of present illness: Ms. Parra is a 71 year old female Was admitted a number of days ago for a variety complaints. She has had multiple admissions over the past few months. The reader of this H&P is recommended to review those previous issues. Vascular surgery was asked to see the patient today because of concerns regarding the left upper extremity arteriovenous access. The patient had had a left forearm AV shunt placed in October 2014. This was unsuccessful. She then went on to have a left upper arm AV shunt placed in November 2014. According to the patient she has been using this access without difficulty. She denies any previous interventions until this admission. During this admission the AV shunt was found to be nonfunctional. She went on to have a temporary hemodialysis catheter placed via the left femoral vein. An attempt was made 2 days ago for an endovascular intervention in interventional radiology. A balloon into plasty was performed of the venous anastomosis. When the patient had the access cannulated after the angioplasty there was inadequate flow. The nurses note that there was flow from the venous limb but there is no significant flow from the arterial limb. Therefore vascular surgery was asked see the patient. The patient denies any pain associated to the left arm. Past Med Surg Social Fam HX - Past Medical History Medical history: asthma, COPD, GERD, hypertension, renal disease, thyroid disease Psychiatric history: no psych history - Past Surgical History Surgical History: appendectomy, cholecystectomy, colostomy, hysterectomy, other - Social History Smoking Status: Former smoker Smokeless Tobacco Status: No Alcohol use: none Drug use: none - Family History Mother Adopted: No Living Status: Hx Family Cardiac Disorders: Yes (GA/ Stroke) Hx Family Respiratory Disorders: No Hx Family Cancer: No Hx Family GI Disorders: No Hx Family Endocrine Disorder: No Hx Family Neuromuscular Disorders: No Hx Family Neurologic Disorders: No Hx Family HEENT Disorders: No Hx Family Autoimmune Disorders: No Father Adopted: No Living Status: Hx Family Cardiac Disorders: Yes (GA) Hx Family Respiratory Disorders: No Hx Family Cancer: No Hx Family GI Disorders: No Hx Family Endocrine Disorder: No Hx Family Neuromuscular Disorders: No Hx Family Neurologic Disorders: No Hx Family HEENT Disorders: No Hx Family Autoimmune Disorders: No Brother Living Status: Still Living Hx Family Cardiac Disorders: Yes Hx Family Respiratory Disorders: No Hx Family Endocrine Disorder: Yes Medications and Allergies Amitriptyline [Elavil] 50 mg PO HS 09/19/15 [History] Cholecalciferol (Vitamin D3) [Vitamin D3] 5,000 unit PO DAILY #0 09/19/15 [ History] Ranitidine HCl [Zantac] 150 mg PO HS 09/19/15 [History] Cyanocobalamin (B-12) [Vitamin B12] 1,000 mcg IM QMONTH 02/21/17 [History] Levothyroxine Sodium [Synthroid] 300 mcg PO DAILY 02/21/17 [History] Mometasone/Formoterol [Dulera 100 Mcg/5 Mcg Inhaler] 2 puff IH BID 02/21/17 [ History] Lactobacillus [Culturelle] 1 each PO BID #60 cap.sprink 03/10/17 [Rx] Albuterol Neb [Proventil Neb] 2.5 mg IH Q6H PRN 06/30/17 [History] Lidocaine/Prilocaine CREAM [Emla] 1 appl TP AD PRN 06/30/17 [History] Renal Vitamin [Renal Caps Softgel] 1 mg PO DAILY 06/30/17 [History] Acetaminophen [Tylenol] 650 mg PO Q6HR PRN #20 tab 07/10/17 [Rx] Atorvastatin [Lipitor] 80 mg PO HS #14 tab 07/10/17 [Rx] Diltiazem CD (24hr) [Cardizem CD] 120 mg PO DAILY #14 07/10/17 [Rx] Nicotine Patch [Nicoderm] 21 mg TD DAILY #14 07/10/17 [Rx] Ondansetron ODT [Zofran ODT] 4 mg SL Q6HR #20 tab.rapdis 07/10/17 [Rx] levoFLOXacin [Levaquin] 500 mg PO Q48H #6 tablet 07/10/17 [Rx] predniSONE [PredniSONE] 20 mg PO DAILY #5 tab 07/10/17 [Rx] GuaiFENesin ER [Mucinex] 600 mg PO BID PRN 07/16/17 [History] Menthol [[place]] 3.2 mg MM Q4H PRN 07/16/17 [History] 3 Allergy/AdvReac Type Severity Reaction Status Date / Time codeine AdvReac Severe Vomiting Verified 03/06/17 15:22 naproxen [From Naprosyn] AdvReac Severe Vomiting Verified 03/06/17 15:22 All Systems Review: A 10-system review of systems was performed and is negative for pertinent findings except as documented above in the HPI. Exam Vital Signs, Last 4 Hours Temp Resp BP 07/23/17 12:05 129/62 07/23/17 11:50 131/54 07/23/17 11:35 125/57 07/23/17 11:20 128/59 07/23/17 11:05 123/59 07/23/17 10:50 122/57 07/23/17 10:35 135/64 07/23/17 10:20 128/58 07/23/17 10:05 127/58 07/23/17 09:50 130/64 07/23/17 09:35 97.8 F 20 120/76 General: Present: Conversant, No Apparent Distress HEENT: Present: Atraumatic, Normocephaly Neck: Absent: JVD Cardiac: Present: Reg Rate and Rhythm Lungs: Present: Decreased breath sounds, Other (Patient has rhonchi bilaterally) Neuro: Present: Alert and responsive, No focal deficits noted Abdomen: Present: Soft, Non-tender Vascular: Present: Pulse, normal (Left upper extremity pulses are normal. There is ecchymosis from the sites of the previous attempts at endovascular intervention from IR. There is a bruit over the AV shunt) Consult Discharge Plan - Plan Referrals: Na Johansen, CLINICAL RN LIAISON [Primary Care Provider] - 09/21/17 8:00 am (Please follow up with Na Johansen)
--- NOTE | 2017-07-23 14:49 | Internal Med Progress Note ---
<Jovani Sylvester - Last Filed: 07/23/17 14:47> Date of Encounter: 07/23/17 Time of Encounter: 14:47 - Assessment and plan (1) Acute respiratory distress Current Visit: Yes Status: Acute Assessment and plan: - Likely secondary to fluid overload from CHF exacerbation - Reported weight gain of 30 pounds since 07/10/17 - Taking off fluid in hemodialysis. Successful hemodialysis session yesterday, patient states no improvement of symptoms. - Currently tolerating 4 L of oxygen via nasal cannula. States no improvement from shortness of breath - Monitor very closely and increase O2 if necessary. - No acute distress - Plan to continue hemodialysis with fluid removal. Consulted vascular surgery this morning, agree to see patient and assess fistula tomorrow morning, we will replenish platelets this evening. (2) Acute blood loss anemia Current Visit: Yes Status: Acute Assessment and plan: - H/H of 7.3/23.4, stable from yesterday. Reported bleeding from catheter site per night team. No current bleeding - platelets at 37,000 today - consult to vascular surgery, appreciate recommendations. We will evaluate fistula tomorrow morning after receiving platelets this evening. - Continue to monitor and transfusion if necessary (3) Gross hematuria Current Visit: Yes Status: Resolved Assessment and plan: - Evaluated by urology, appreciate recommendations - CT abdomen shows left renal cyst, no obvious signs of malignancy. No intervention recommended at this time - Patient complains of no further symptoms, no other urinary symptoms. (4) Anemia in chronic kidney disease Current Visit: Yes Status: Chronic Assessment and plan: Hemoglobin stable today after transfusion. Continue weekly erythropoietin stimulating agents. Qualifiers: Chronic kidney disease stage: on chronic dialysis Qualified Code(s): N18.6 - End stage renal disease; D63.1 - Anemia in chronic kidney disease; Z99.2 - Dependence on renal dialysis (5) ESRD (end stage renal disease) on dialysis Current Visit: Yes Status: Chronic Assessment and plan: Nephrology consulted, appreciate recommendations - HD yesterday via temporary femoral catheter. We will attempt to revise fistula tomorrow per vascular surgery. - Continue regular scheduled dialysis for fluid removal - Temporary dialysis catheter in left femoral - We will monitor closely for any further bleeding (6) Atrial fibrillation with rapid ventricular response Current Visit: Yes Status: Acute Assessment and plan: - Normal sinus rhythm this morning. Patient received a total of 10 mg IV metoprolol in dialysis yesterday. Continue home Cardizem - Continue calcium channel lex, anti-coagulation held this time due to dialysis catheter placements and history of oozing from sites (7) DVT prophylaxis Current Visit: Yes Status: Acute Assessment and plan: Held SQ heparin due to hematuria, low platelets, bleeding. on SCD's - Time Spent With Patient 25 - 35 minutes - Subjective Interval history: Patient was seen and examined at bedside this morning. She states she is still experiencing significant shortness of breath as well as nonproductive cough and chest congestion. She is not complaining of any edema today. She denies any symptoms of fevers, pain, nausea, vomiting, urinary symptoms. - Constitutional Vitals: Temp Pulse Resp BP Pulse Ox 98.1 F 80 18 124/57 94 07/23/17 13:25 07/23/17 07:50 07/23/17 13:25 07/23/17 13:25 07/23/17 08:35 General appearance: Present: A&O X 3, no acute distress, loss of weight Exam: Gen.: Vitals noted. No acute distress. AAOx3 HEENT: PERRL/EOMI, oropharynx clear, Normocephalic, atraumatic Neck: Supple. No adenopathy. Cardiac: RRR, no murmur, +S1/S2 Pulmonary: Moderate diffuse wheezing, rales in lower lobes. equal chest expansion Abdomen: soft, nontender, BS noted, no guarding Back: Nontender throughout. MSK: ROM intact, no joint swelling noted Extremities: no BLE edema, nontender calf, no cyanosis or clubbing. Significant ecchymosis on diffuse extremities Neuro: A&Ox3, moves all extremities, no focal deficits Psych: Appropriate mood and behavior Internal Medicine: Result - Labs CBC & Chem 7: 07/23/17 04:10 07/23/17 04:10 Labs: Short CBC 07/23/17 Range/Units 04:10 WBC 5.8 (4.3-11.1) K/mcL Hgb 7.3 L (11.5-15.4) g/dL Hct 23.4 L (35.3-44.9) % Plt Count 37 L (140-400) K/mcL Neutrophils # 5.1 (1.6-8.9) K/mcL BMP 07/23/17 04:10 Sodium 138 Potassium 5.0 H D Chloride 102 Carbon Dioxide 23 BUN 35 H D Creatinine 5.04 H Glucose 172 H Calcium 6.9 L Liver Function 07/23/17 Range/Units 11:45 Total Bilirubin 0.8 (0.2-1.2) mg/dL Direct Bilirubin 0.4 (0.0-0.5) mg/dL - ABG Interpretation ABG results: PT/INR, D-dimer PT 12.2 Seconds (9.4-12.1) H 07/20/17 05:20 Consult Discharge Plan - Plan Referrals: Na Johansen, SUPREME COURT JUDGE [Primary Care Provider] - 07/24/17 8:00 am (Please follow up with Na Johansen) <Elliott Moody - Last Filed: 07/23/17 17:47> Date of Encounter: 07/23/17 - Constitutional Vitals: Temp Pulse Resp BP Pulse Ox 97.7 F 81 20 130/58 92 07/23/17 15:47 07/23/17 15:47 07/23/17 15:47 07/23/17 15:47 07/23/17 15:47 Internal Medicine: Result - Labs CBC & Chem 7: 07/23/17 04:10 07/23/17 04:10 Labs: Short CBC 07/23/17 Range/Units 04:10 WBC 5.8 (4.3-11.1) K/mcL Hgb 7.3 L (11.5-15.4) g/dL Hct 23.4 L (35.3-44.9) % Plt Count 37 L (140-400) K/mcL Neutrophils # 5.1 (1.6-8.9) K/mcL [facility] 07/23/17 04:10 Sodium 138 Potassium 5.0 H D Chloride 102 Carbon Dioxide 23 BUN 35 H D Creatinine 5.04 H Glucose 172 H Calcium 6.9 L Liver Function 07/23/17 Range/Units 11:45 Total Bilirubin 0.8 (0.2-1.2) mg/dL Direct Bilirubin 0.4 (0.0-0.5) mg/dL - ABG Interpretation ABG results: PT/INR, D-dimer PT 12.2 Seconds (9.4-12.1) H 07/20/17 05:20 - Attending Attestation I examined this patient and my medical decision-making was reviewed with the Resident Physician. I agree with the documented findings, disposition and treatment plan as described except to the extent set forth below. vascular surgery consult appreciated.
--- NOTE | 2017-07-23 19:02 | Anesthesia Evaluation PreOp ---
Date of Encounter: 07/23/17 Time of Encounter: 19:00 - Past History Planned Operation: Left Upper Extremity Vascular Access Revision Cardiac History: CHF, HTN, Hyperlipidemia, Arrhythmia (Admitted for new onser AFib with RVR, currently SR treated with Metoprolol and diltiazem), Other ( Anemia of chronic disease, transfused 07-22 Thrombocytopenia will get platelet ) Pulmonary History: Former smoker, Asthma, COPD, Other (Admitted for atypical pneumonia) [employer] History: Denies Any Significant HX Other Medical History: Renal (ESRD, last dialyzed 07-22), Diabetes Type II, Thyroid, GERD Anesthesia History: No Prior Anesthetic Complications : No Alcohol Use: none Drug use: none Medications and Allergies Amitriptyline [Elavil] 50 mg PO HS 09/19/15 [History] Cholecalciferol (Vitamin D3) [Vitamin D3] 5,000 unit PO DAILY #0 09/19/15 [ History] Ranitidine HCl [Zantac] 150 mg PO HS 09/19/15 [History] Cyanocobalamin (B-12) [Vitamin B12] 1,000 mcg IM QMONTH 02/21/17 [History] Levothyroxine Sodium [Synthroid] 300 mcg PO DAILY 02/21/17 [History] Mometasone/Formoterol [Dulera 100 Mcg/5 Mcg Inhaler] 2 puff IH BID 02/21/17 [ History] Lactobacillus [Culturelle] 1 each PO BID #60 cap.sprink 03/10/17 [Rx] Albuterol Neb [Proventil Neb] 2.5 mg IH Q6H PRN 06/30/17 [History] Lidocaine/Prilocaine CREAM [Emla] 1 appl TP AD PRN 06/30/17 [History] Renal Vitamin [Renal Caps Softgel] 1 mg PO DAILY 06/30/17 [History] Acetaminophen [Tylenol] 650 mg PO Q6HR PRN #20 tab 07/10/17 [Rx] Atorvastatin [Lipitor] 80 mg PO HS #14 tab 07/10/17 [Rx] Diltiazem CD (24hr) [Cardizem CD] 120 mg PO DAILY #14 07/10/17 [Rx] Nicotine Patch [Nicoderm] 21 mg TD DAILY #14 07/10/17 [Rx] Ondansetron ODT [Zofran ODT] 4 mg SL Q6HR #20 tab.rapdis 07/10/17 [Rx] levoFLOXacin [Levaquin] 500 mg PO Q48H #6 tablet 07/10/17 [Rx] predniSONE [PredniSONE] 20 mg PO DAILY #5 tab 07/10/17 [Rx] GuaiFENesin ER [Mucinex] 600 mg PO BID PRN 07/16/17 [History] Menthol [[place]] 3.2 mg MM Q4H PRN 07/16/17 [History] 3 Allergy/AdvReac Type Severity Reaction Status Date / Time codeine AdvReac Severe Vomiting Verified 03/06/17 15:22 naproxen [From Naprosyn] AdvReac Severe Vomiting Verified 03/06/17 15:22 - Meds/Allergy Pre-op Review Medications Reviewed: Yes Allergies Reviewed: Yes Beta Blockers on Current Med List: Yes (on metoprolol) Anesthesia Results - Labs 07/23/17 04:10 07/23/17 04:10 - Imaging EKG: report reviewed (Sinus Rhytmn) Additional studies: ECHO LVEF 55% Anesthesia Exam Vital Signs/O2 Sat/Glucose, Most Current Temp Pulse Resp BP Pulse Ox 07/23/17 18:50 97.7 F 89 19 140/61 91 07/23/17 15:47 97.7 F 81 20 130/58 92 Height: 5'7 Weight: 164 lbs NPO (# of Hours): MN Pain Scale: 0 - HEENT Pupil (Motor): Pupils equal, EOMI Mallampati: III Teeth: Edentulous Oral Opening: Less than or equal to 3 - WO[employer] LOC: Oriented [employer] Motor: Normal RUE, Normal LUE, Normal RLE, Normal LLE, Normal Face [employer] Sensory: Normal: RUE, LUE, RLE, LLE, Face - Cardiac Rhythm: Regular Murmur: None JVD: No Carotid Bruit: No - Pulmonary Breath Sounds: bilateral Clear Respiratory Effort: Symmetrical Anesthesia Assess/Plan ASA Score: 4 (HTN Hx Arrhythmia ESRD) Modified Tarkio Scale for Level of Consciousness: Cooperative, oriented, and tranquil Anesthetic Plan: General Monitoring Plan: Standard Monitors Recovery Plan: PACU (Discussed GA versus RA, patient refuses RA and wants GA, high risk, agrees to proceed)
[2017-07-23] MEDS: Famotidine 20 MG TABLET PO SCH (20:28)
[2017-07-24] MEDS: *HR* Morphine 2 MG/ML SYRINGE IVP PRN ×3 (00:43→22:12)
[2017-07-24 03:28] LABS: Eosinophils % 0.4 %; Hematocrit 22.2 % (35.3-44.9); Hemoglobin 6.9 g/dL (11.5-15.4); Immature Granulocytes % 0.6 % (0-4); Immature Platelets 7.4 % (1.1-6.1); Lymphocytes # 0.6 K/mcL (0.6-4.6); Mean Corpuscular HGB Conc 31.1 g/dL (31.6-35.5); Mean Corpuscular Hemoglobin 29.7 pg (28.0-33.3); Mean Corpuscular Volume 95.7 fL (83.0-100.0); Mean Platelet Volume 12.1 fL (9.4-12.4); Monocytes # 0.2 K/mcL (0.0-1.3); Monocytes % 4.3 %; Neutrophils # 4.3 K/mcL (1.6-8.9); Red Blood Count 2.32 M/mcL (3.82-4.97); Red Cell Distribution Width 17.1 % (11.5-14.5); Segmented Neutrophils % 82.7 %
[2017-07-24 03:30] LABS: Platelet Count 37 K/mcL (140-400)
[2017-07-24 03:32] LABS: Calcium 7.4 mg/dL (8.6-10.8); Magnesium 1.6 mg/dL (1.6-2.6); Potassium 4.2 mEq/L (3.5-4.5)
[2017-07-24] MEDS ORDERED: ceFAZolin 2,000 MG in D5% in Water 100 ML IVPB ONE (07:00)
[2017-07-24] MEDS ORDERED: 0.9 % Sodium Chloride 250 ML IVC PRN (07:46)
[2017-07-24] MEDS ORDERED: *HR* Heparin 10,000 UNIT/10 ML VIAL IV PRN (07:46)
--- NOTE | 2017-07-24 08:09 | Electrocardiograph Report ---
[address] [place], [place] [address] Test Date: 2017-07-22 Pat Name: Vannessa Parra Department: 112 Room: [facility] Gender: F News Technical Director: : 1945 Requested By: Elliott Moody Order Number: [id number] Reading MD: Dez Samaniego MD Measurements Intervals Paron Rate: 123 P: CT: 0 QRS: 24 QRSD: 97 T: 209 QT: 305 QTc: 378 Interpretive Statements ATRIAL FIBRILLATION WITH RAPID VENTRICULAR RESPONSE inferolateral ischemia Electronically Signed On 07-24-2017 6:29:20 EDT by Dez Samaniego MD
[2017-07-24] MEDS: Nicotine 21 MG PATCH.TD24 TD SCH (09:30)
[2017-07-24] MEDS: Lactobacillus 1 EACH CAP.SPRINK PO SCH ×2 (09:31→21:42)
[2017-07-24] MEDS: predniSONE 20 MG TABLET PO SCH (09:31)
[2017-07-24] MEDS: Diltiazem CD (24hr) 120 MG CAPSULE PO SCH (09:31)
[2017-07-24] MEDS: Renal Vitamin 1 MG CAPSULE PO SCH (09:31)
--- NOTE | 2017-07-24 09:37 | Nephrology Progress Note ---
Date of Encounter: 07/24/17 Time of Encounter: 09:35 - Assessment and Plan (1) ESRD (end stage renal disease) on dialysis Current Visit: Yes Status: Chronic UF today using temp HD cath today Yesterday patient was wanting a second opinion on access; today she states she wants to stay here and agrees to have vascular surgery work on her access Continue renal diet Avoid nephrotoxins if possible (2) Generalized weakness Current Visit: Yes Status: Acute per primary team (3) Hypocalcemia Current Visit: Yes Status: Acute Ca+ 7.4 Will use a higher Ca+ bath in dialysis as needed (4) Anemia in chronic kidney disease Current Visit: Yes Status: Chronic Hg 6.9 Goal 10-11 Transfuse per parameters Qualifiers: Chronic kidney disease stage: on chronic dialysis Qualified Code(s): N18.6 - End stage renal disease; D63.1 - Anemia in chronic kidney disease; Z99.2 - Dependence on renal dialysis Subjective Principal diagnosis: ESRD on dialysis, hypocalcemia Interval history: Patient seen and examined in dialysis. Getting UF today; temp line in left femoral is bleeding-Dr Buenrostro on way to dialysis to evaluate; UF still able to run and patient only has 40 minutes left of treatment. Objective - Vital Signs Vital signs: Vital Signs Temp Pulse Resp BP Pulse Ox 07/24/17 03:46 98.0 F 80 17 141/65 99 07/23/17 23:30 98.2 F 84 20 137/69 100 07/23/17 20:44 100 07/23/17 20:42 18 100 07/23/17 18:50 97.7 F 89 19 140/61 91 07/23/17 15:47 97.7 F 81 20 130/58 92 07/23/17 13:25 98.1 F 18 124/57 07/23/17 13:05 113/52 07/23/17 12:50 127/57 07/23/17 12:35 126/58 07/23/17 12:20 130/58 07/23/17 12:05 129/62 07/23/17 11:50 131/54 07/23/17 11:35 125/57 07/23/17 11:20 128/59 07/23/17 11:05 123/59 07/23/17 10:50 122/57 07/23/17 10:35 135/64 07/23/17 10:20 128/58 07/23/17 10:05 127/58 07/23/17 09:50 130/64 Intake and Output 07/23/17 07/24/17 07/24/17 23:59 07:59 15:59 Intake Total 120 / 120 Balance 120 / 120 Intake: Oral 120 / 120 Other: Meal Dinner Percent of Meal Consumed 100% Stool Size Moderate Stool Consistency loose soft Stool Color Brown Weight 73.8 kg Patient Weight 07/24/17 23:59 Weight 73.8 kg - General Appearance General appearance: Present: cachectic, chronically ill, frail EENT: Present: ATNC, mucous membranes moist, hearing intact, vision intact Neck: Present: supple Respiratory: Present: rhonchi (improved) Cardiology: Present: no edema, normal S1, normal S2 Dialysis Vascular Access: Venous Catheter Gastrointestinal: Present: no tenderness, no guarding Integumentary: Present: warm and dry Neurologic: Present: alert and oriented x3 Psychiatric: Present: mood/affect appropriate, cooperative - Lab 07/24/17 03:01 07/24/17 03:01 Most recent lab results Calcium 7.4 mg/dL (8.6-10.8) L 07/24/17 03:01 Phosphorus 8.1 mg/dL (2.3-4.7) H 07/22/17 03:40 Magnesium 1.6 mg/dL (1.6-2.6) 07/24/17 03:01 Consult Discharge Plan - Plan Referrals: Na Johansen, STEAM PRESSURE CHAMBER OPERATOR [Primary Care Provider] - 08/06/17 8:15 am (Please follow up with Na Johansen)
[2017-07-24] MEDS: *HR* HYDROcodone/Acet 5/325 mg TABLET PO PRN (10:09)
[2017-07-24] MEDS: Budesonide/Formoterol 160/4.5 MDI IH SCH ×2 (10:21→22:18)
[2017-07-24] MEDS ORDERED: 0.9 % Sodium Chloride 250 ML ONE (11:51)
[2017-07-24] MEDS ORDERED: Lidocaine -MPF 2% 2 ML VIAL ONE (13:12)
[2017-07-24] MEDS ORDERED: *HR* Propofol 200 MG/20 ML VIAL IVP ONE (13:12)
[2017-07-24] MEDS ORDERED: Ondansetron 4 MG/2 ML VIAL ONE (13:12)
--- NOTE | 2017-07-24 13:31 | Internal Med Progress Note ---
<Jovani Sylvester - Last Filed: 07/24/17 13:27> Date of Encounter: 07/24/17 Time of Encounter: 09:00 - Assessment and plan (1) Acute respiratory distress Current Visit: Yes Status: Acute Assessment and plan: - Likely secondary to fluid overload from CHF exacerbation - Reported weight gain of 30 pounds since 07/10/17 - Taking off fluid in hemodialysis. Successful hemodialysis session yesterday, patient states no improvement of symptoms. HD again this morning. - Currently tolerating 4 L of oxygen via nasal cannula. States no improvement from shortness of breath - Monitor very closely and increase O2 if necessary. - Plan to continue hemodialysis with fluid removal. - Vascular surgery to evaluate fistula this afternoon. Appreciate assistance. (2) Acute blood loss anemia Current Visit: Yes Status: Acute Assessment and plan: - H/H of 6.9/22.2, mild drop from yesterday. Reported bleeding from catheter. Getting 1 unit of PRBCs in dialysis - platelets at 37,000 today, getting 1 unit of platelets after dialysis and before surgery. - consult to vascular surgery, appreciate recommendations. We will evaluate fistula this afternoon for better access. - Continue to monitor and transfusion if necessary (3) Anemia in chronic kidney disease Current Visit: Yes Status: Chronic Qualifiers: Chronic kidney disease stage: on chronic dialysis Qualified Code(s): N18.6 - End stage renal disease; D63.1 - Anemia in chronic kidney disease; Z99.2 - Dependence on renal dialysis (4) ESRD (end stage renal disease) on dialysis Current Visit: Yes Status: Chronic Assessment and plan: Nephrology consulted, appreciate recommendations - HD yesterday and today via temporary femoral catheter. We will attempt to revise fistula in afternoon per vascular surgery. - Continue regular scheduled dialysis for fluid removal - Temporary dialysis catheter in left femoral - We will monitor closely for any further bleeding (5) Atrial fibrillation with rapid ventricular response Current Visit: Yes Status: Acute Assessment and plan: - Normal sinus rhythm this morning. Continue home Cardizem - Continue calcium channel lex, anti-coagulation held this time due to dialysis catheter placements and history of oozing from sites (6) DVT prophylaxis Current Visit: Yes Status: Acute Assessment and plan: Held SQ heparin due to hematuria, low platelets, bleeding. on SCD's - Time Spent With Patient 25 - 35 minutes - Subjective Interval history: Patient was seen and examined at bedside this morning in dialysis. She states she is still experiencing significant shortness of breath as well as nonproductive cough and chest congestion. She denies any symptoms of fevers, pain, nausea, vomiting, urinary symptoms. She has a new complaint of CP this morning. EKG shows no changes. She states the pain feels the same as before from coughing, however it has moved lower on her chest wall. She is also noted to be bleeding from her catheter site during dialysis. - Constitutional Vitals: Temp Pulse Resp BP Pulse Ox 98 F 80 20 126/80 98 07/24/17 13:21 07/24/17 13:21 07/24/17 13:21 07/24/17 13:21 07/24/17 13:21 General appearance: Present: A&O X 3, no acute distress, loss of weight Exam: Gen.: Vitals noted. No acute distress. AAOx3 HEENT: PERRL/EOMI, oropharynx clear, Normocephalic, atraumatic Neck: Supple. No adenopathy. Cardiac: RRR, no murmur, +S1/S2 Pulmonary: Course rales and wheezes bilaterally. equal chest expansion Abdomen: soft, nontender, BS noted, no guarding MSK: Unable to assess due to dialysis. Skin: Extensive echymosis covering chest wall, extremities. Bleeding from temp catheter site . Extremities: no BLE edema, nontender calf, no cyanosis or clubbing Neuro: A&Ox3, moves all extremities, no focal deficits Psych: Appropriate mood and behavior Internal Medicine: Result - Labs CBC & Chem 7: 07/24/17 03:01 07/24/17 03:01 Labs: Short CBC 07/24/17 Range/Units 03:01 WBC 5.2 (4.3-11.1) K/mcL Hgb 6.9 L (11.5-15.4) g/dL Hct 22.2 L (35.3-44.9) % Plt Count 37 L (140-400) K/mcL Neutrophils # 4.3 (1.6-8.9) K/mcL BMP 07/24/17 03:01 Sodium 136 Potassium 4.2 Chloride 100 Carbon Dioxide 27 BUN 28 H Creatinine 3.89 H Glucose 116 H Calcium 7.4 L - ABG Interpretation ABG results: PT/INR, D-dimer PT 12.2 Seconds (9.4-12.1) H 07/20/17 05:20 Consult Discharge Plan - Plan Referrals: Na Johansen, HOME VISITOR [Primary Care Provider] - 08/06/17 8:15 am (Please follow up with Na Johansen) <Elliott Moody - Last Filed: 07/24/17 18:11> Date of Encounter: 07/24/17 - Constitutional Vitals: Temp Pulse Resp BP Pulse Ox 98.5 F 82 16 126/70 98 07/24/17 13:34 07/24/17 14:25 07/24/17 14:25 07/24/17 14:25 07/24/17 13:34 Internal Medicine: Result - Labs CBC & Chem 7: 07/24/17 03:01 07/24/17 03:01 Labs: Short CBC 07/24/17 Range/Units 03:01 WBC 5.2 (4.3-11.1) K/mcL Hgb 6.9 L (11.5-15.4) g/dL Hct 22.2 L (35.3-44.9) % Plt Count 37 L (140-400) K/mcL Neutrophils # 4.3 (1.6-8.9) K/mcL BMP 07/24/17 03:01 Sodium 136 Potassium 4.2 Chloride 100 Carbon Dioxide 27 BUN 28 H Creatinine 3.89 H Glucose 116 H Calcium 7.4 L - ABG Interpretation ABG results: PT/INR, D-dimer PT 12.2 Seconds (9.4-12.1) H 07/20/17 05:20 - Attending Attestation I examined this patient and my medical decision-making was reviewed with the Resident Physician. I agree with the documented findings, disposition and treatment plan as described except to the extent set forth below. Vascular surgery input appreciated.
[2017-07-24] MEDS ORDERED: Lidocaine 1% 20 ML MDV ONE (13:43)
[2017-07-24] MEDS ORDERED: Heparin 1,000 UNITS/500 mL NS 1,000 ML ONE (13:44)
[2017-07-24] MEDS ORDERED: *HR* FentaNYL (PF) 100 MCG/2 ML VIAL ONE (13:52)
[2017-07-24] MEDS ORDERED: *HR* FentaNYL (PF) 100 MCG/2 ML VIAL IVP PRN (15:20)
[2017-07-24] MEDS ORDERED: *HR* Labetalol 20 MG/4 ML SYRINGE IVP PRN (15:20)
[2017-07-24] MEDS ORDERED: Ondansetron 4 MG/2 ML VIAL IVP ONE (15:20)
[2017-07-24] MEDS ORDERED: 0.9 % Sodium Chloride 2,000 ML ONE (16:29)
[2017-07-24] MEDS ORDERED: *HR* Phenylephrine 10 MG/ML VIAL ONE (17:11)
--- NOTE | 2017-07-24 17:51 | Operative Note ---
Date of procedure: 07/24/17 Pre-op diagnosis: ESRD/malfunctioning AV shunt Post-op diagnosis: same Procedure: revision of venous anastomosis of AV shunt with bovine pericardial patch angioplasty Complications: none Anesthesia: GETA Surgeon: Jeevan Ramirez Estimated blood loss (cc): 300 Specimen: none Condition: stable Disposition: PACU Procedure in Detail: History Vannessa Parra is a 71-year-old white female with multiple medical problems including end-stage renal disease. She has had persistent difficulties with access of her left upper arm AV shunt. She recently underwent intervention with interventional radiology for balloon angioplasty. The shunt is still not functioning. Vascular surgeries as see the patient. Patient outcomes the operating room in an attempt to enhance patency of the AV shunt. Procedure After informed consent the patient was taken the operating room. General anesthesia was established. Left upper extremity was sterilely prepped and draped. A timeout protocol was observed. The axillary incision was opened. Dissection was carried down to reveal the AV shunt. Dissection of the connection of the AV shunt to the axillary vein was achieved. There is no flow through the AV shunt at this level. This was the [place] AV shunt was placed by myself to an appendectomy years ago. However with dissection was clear that this was not the problem. It was discovered the patient had another AV shunt in position. This appeared to be a a different type of synthetic graft or umbilical vein graft. This had obviously been placed in an another institution and I was unaware that this procedure had been performed. This obviously complicated the situation due to the tremendous scarring and complexity of the dissection venous control. This also contributed to increased blood loss. After this second graft was finally adequately controlled anvenotomy was made and carried up onto this unknown graft. A very dense thick scar tissue was present. This material appeared to be more of a synechiae than chronic thrombus. It was resected with Rock scissors. The stump of the original AV shunt that I had created was then amputated off of the vein so as not to present any further confusion and this was discarded. A long bovine pericardial patch was then sewn into position using 2 6-0 Prolene sutures. After appropriate backbleeding and flushing the clamps removed. It should be also noted that a 4 [place] Kel catheter was passed retrograde through the AV shunt. It was passed through the arterial anastomosis. There were no thrombus identified and there was excellent pulsatile flow from the arterial anastomosis into the venous area. The wound was then irrigated and hemostasis achieved. Doppler signals were identified at the radial and ulnar artery at the wrist. The wound was then closed in layers with absorbable suture. A dry sterile dressing was applied. The patient was explained the operating room. She was taken to the recovery room in stable condition. The patient had an excellent thrill over the shunt and there was pulsatile flow into the axillary vein at the conclusion of the operation.
--- NOTE | 2017-07-24 18:27 | Anesthesia Evaluation Post Op ---
Date of Encounter: 07/24/17 Time of Encounter: 18:25 - Vital Signs Vital Signs: Vital Signs/O2 Sat/Glucose, Most Current Temp Pulse Resp BP Pulse Ox 07/24/17 18:11 77 16 130/69 100 07/24/17 18:01 79 16 133/73 100 07/24/17 17:51 97.7 F 85 16 128/70 100 - Lungs Lungs: Clear Ascult./Percussion - Airway Airway: Non-obstructed - Cardiovascular Regular Rate - Mental Status Mental Status: Alert & Oriented, Answers Appropriately - Pain Pain Scale: 0 - Nausea Vomiting Nausea Vomiting: Not Present - Hydration Hydration: NPO, Has not voided - Discharge PostOp Status: Transfer Patient to floor
[2017-07-24] MEDS: *HR* Promethazine 25 MG/ML VIAL IVP PRN (18:52)
[2017-07-24] MEDS: Famotidine 20 MG TABLET PO SCH (21:42)
[2017-07-25] MEDS: *HR* Morphine 2 MG/ML SYRINGE IVP PRN ×3 (01:33→23:42)
[2017-07-25 03:31] LABS: Mean Corpuscular Volume 94.4 fL (83.0-100.0); Mean Platelet Volume 11.3 fL (9.4-12.4); Red Cell Distribution Width 16.6 % (11.5-14.5)
[2017-07-25 03:33] LABS: Hematocrit 23.8 % (35.3-44.9); Hemoglobin 7.3 g/dL (11.5-15.4); Immature Platelets 5.9 % (1.1-6.1); Mean Corpuscular HGB Conc 30.7 g/dL (31.6-35.5); Red Blood Count 2.52 M/mcL (3.82-4.97)
[2017-07-25 03:49] LABS: Calcium 7.1 mg/dL (8.6-10.8)
[2017-07-25] MEDS: *HR* Promethazine 25 MG/ML VIAL IVP PRN (05:03)
[2017-07-25] MEDS: *HR* HYDROcodone/Acet 5/325 mg TABLET PO PRN ×4 (05:03→21:36)
[2017-07-25] MEDS ORDERED: *HR* Heparin 10,000 UNIT/10 ML VIAL IV PRN (06:45)
[2017-07-25] MEDS ORDERED: 0.9 % Sodium Chloride 1,000 ML PRIME SCH (06:45)
[2017-07-25] MEDS ORDERED: 0.9 % Sodium Chloride 250 ML IVC PRN (06:45)
[2017-07-25] MEDS: predniSONE 20 MG TABLET PO SCH (08:14)
[2017-07-25] MEDS: Diltiazem CD (24hr) 120 MG CAPSULE PO SCH (08:14)
[2017-07-25] MEDS: Renal Vitamin 1 MG CAPSULE PO SCH (08:14)
[2017-07-25] MEDS: Nicotine 21 MG PATCH.TD24 TD SCH (08:15)
[2017-07-25] MEDS: Lactobacillus 1 EACH CAP.SPRINK PO SCH ×2 (08:15→21:37)
--- NOTE | 2017-07-25 08:26 | Vascular/End[facility]as Progress Note ---
Date of Encounter: 07/25/17 Time of Encounter: 08:24 - Assessment and plan (1) Thrombocytopenia Current Visit: Yes Status: Chronic s/p platelet transfusion pre op. no signs of bleeding. (2) ESRD on dialysis Current Visit: Yes Status: Chronic patent left upper arm AV shunt. may use for dialysis today. - Subjective Interval history: no complaints Vital Signs, Last 4 Hours Temp Pulse Resp BP Pulse Ox 07/25/17 07:49 98.5 F 83 19 133/62 92 07/25/17 04:30 98.4 F 85 20 86/63 94 - Physical Examination General: Present: Conversant, No Apparent Distress Vascular: Present: Pulse, normal, Surgical incisions (dressing intact), Other ( + thrill over the left upper arm AV shunt. no hematoma. + bruit. ) Results 07/25/17 03:20 07/25/17 03:20 Lab Results, Last 24 hours 07/25/17 07/25/17 03:20 03:20 WBC 5.0 Hgb 7.3 L Hct 23.8 L Plt Count 56 L D Sodium 139 Potassium 5.0 H Chloride 102 Carbon Dioxide 25 BUN 43 H D Creatinine 5.21 H Glucose 111 H Calcium 7.1 L Consult Discharge Plan - Plan Referrals: Na Johansen CNP [Primary Care Provider] - 08/06/17 8:15 am (Please follow up with Na Johansen) Jeevan Ramirez MD [Partnered Physician] - (in 3 weeks-call for appointment)
[2017-07-25] MEDS: Budesonide/Formoterol 160/4.5 MDI IH SCH ×2 (10:42→20:31)
[2017-07-25] MEDS ORDERED: 0.9 % Sodium Chloride 2,000 ML ONE (11:08)
--- NOTE | 2017-07-25 11:27 | Arterial Study Report ---
UE Arterial Duplex Patient Name:Vannessa Parra Order Number:[id number] Procedure Date:07/23/2017 Date:1945ge:71 yrs Gender:Female Rt.BP:130 / 58 mmHgHeart Rate: Location:[facility] Room #: [facility] [employer] Associate:Adry Burch, YOAN, RVT Referring MD:Jeevan Ramirez MD, FACS Reading MD:Homero Waller MD Primary Indications:Malfunctioning AV shunt Risk Factors Yes/No Hypertension Yes Smoker Previous Yes Impressions: Findings Bypass Grafts: The proximal anastomosis has a PSV of 473 cm/s. The proximal graft body is patent with a PSV of 275 cm/s. The mid graft body is patent with a PSV of 503 cm/s. The distal graft body is patent with a PSV of 659 cm/s. The distal anastomosis has a PSV of 879 cm/s. The outflow vessel has a PSV of 66 cm/s. Updated by meme on 07/23/2017 9:11:11 PM electronically signed on 07/25/2017 11:23:36 AM with status of Final
[2017-07-25] MEDS ORDERED: Heparin 1,000 UNITS/500 mL NS 500 ML ONE (12:07)
--- NOTE | 2017-07-25 13:28 | Nephrology Progress Note ---
Date of Encounter: 07/25/17 Time of Encounter: 11:00 - Assessment and Plan (1) ESRD (end stage renal disease) on dialysis Current Visit: Yes Status: Chronic Continue HD with UF as tolerated today. Goal UF approx. 4kg should improve respiratory status if fluid related. Can repeat CXR after HD today Potassium of 5 should improve after HD today (2) Problem with dialysis access Current Visit: Yes Status: Acute s/p surgical intervention yesterday with Dr Ramirez with great thrill and bruit but unfortunately was not sued for HD today due to pain Will rest access and attempt cannulation for next HD Qualifiers: Encounter type: subsequent encounter Qualified Code(s): T82.898D - Other specified complication of vascular prosthetic devices, implants and grafts, subsequent encounter (3) Anemia in chronic kidney disease Current Visit: Yes Status: Chronic Hgb noted low at 7.3, will monitor Transfusion parameters per primary team Continue aranesp, will increase dose Qualifiers: Chronic kidney disease stage: on chronic dialysis Qualified Code(s): N18.6 - End stage renal disease; D63.1 - Anemia in chronic kidney disease; Z99.2 - Dependence on renal dialysis (4) Hypocalcemia Current Visit: No Status: Acute Calcium remains low, should improve after HD with higher ca bath and if not, will start supplements Continue ergocalciferol for now PTH elevated as a result, will also give calcitriol during hospital stay (will switch back to iv hectorol on discharge during HD treatments) Subjective Principal diagnosis: ESRD on dialysis, hypocalcemia Interval history: Interim events noted s/p surgical intervention to AVC access yesterday. Pt seen and examined on HD today with complaint of pain around AV access and also around her groin temp HD catheter. Her catheter is currently being used for HD due pain issues. Objective - Vital Signs Vital signs: Vital Signs Temp Pulse Resp BP Pulse Ox 07/25/17 12:01 97.7 F 18 104/40 07/25/17 11:55 93/43 07/25/17 11:40 93/49 07/25/17 11:28 118 20 104/50 98 07/25/17 11:25 116/41 07/25/17 11:10 104/49 07/25/17 10:55 97/51 07/25/17 10:45 92/52 07/25/17 10:40 110/60 09/22/17 10:25 105/57 07/25/17 10:10 113/58 07/25/17 09:55 119/60 07/25/17 09:45 90/52 07/25/17 09:40 114/60 07/25/17 09:25 116/62 07/25/17 09:10 123/60 07/25/17 08:55 118/62 07/25/17 08:40 98.6 F 18 127/56 07/25/17 07:49 98.5 F 83 19 133/62 92 07/25/17 04:30 98.4 F 85 20 86/63 94 07/25/17 00:08 98.2 F 79 20 129/63 92 07/24/17 22:20 16 100 07/24/17 20:45 98.3 F 84 19 122/55 99 07/24/17 20:00 97.6 F 88 18 138/72 07/24/17 19:30 97.4 F L 82 16 136/74 99 07/24/17 19:01 97.8 F 87 14 152/97 100 07/24/17 18:45 98.1 F 84 16 147/76 07/24/17 18:40 97.6 F 07/24/17 18:31 77 14 125/68 100 07/24/17 18:21 98.1 F 79 16 126/66 100 07/24/17 18:11 77 16 130/69 100 07/24/17 18:01 79 16 133/73 100 07/24/17 17:51 97.7 F 85 16 128/70 100 07/24/17 14:25 82 16 126/70 07/24/17 13:34 98.5 F 72 15 120/60 98 Intake and Output 07/24/17 07/25/17 07/25/17 23:59 07:59 15:59 Intake Total 650 / 650 0 / 0 600 / 600 Output Total 750 / 750 4600 / 4600 Balance -100 / -100 0 / 0 -4000 / -4000 Intake: Oral 650 / 650 0 / 0 0 / 0 Intake, Rinseback and Flushes 600 / 600 Output: Urine 50 / 50 0 / 0 Stool 400 / 400 Total Dialysis (HD) Output 4600 / 4600 Estimated Blood Loss 300 / 300 Other: Meal sandwich NPO Percent of Meal Consumed 100% 0% Stool Size Large Smear Stool Consistency soft liquid Stool Characteristics Normal for Patient Normal for Patient Stool Color Brown Brown # Bowel Movement Diapers 1 Weight 70.9 kg Hemodialysis Net Fluid Removed 4000 (mL) Patient Weight 07/25/17 23:59 Weight 70.9 kg - General Appearance General appearance: Present: chronically ill (NAD) EENT: Present: ATNC, mucous membranes moist Neck: Present: no JVD, supple Respiratory: Present: course breath sounds Cardiology: Present: no edema, normal S1, normal S2 Dialysis Vascular Access: Arteriovenous Fistula thrill: Yes bruit: Yes Gastrointestinal: Present: no tenderness, no guarding Additional Comments: +colostomy Integumentary: Present: no rash, warm and dry Neurologic: Present: no focal deficit Musculoskeletal: Present: no deformities Psychiatric: Present: mood/affect appropriate, cooperative - Lab 07/25/17 03:20 07/25/17 03:20 Most recent lab results Calcium 7.1 mg/dL (8.6-10.8) L 07/25/17 03:20 Phosphorus 8.1 mg/dL (2.3-4.7) H 07/22/17 03:40 Magnesium 1.6 mg/dL (1.6-2.6) 07/24/17 03:01 - VTE Documentation of Mechanical Device: Intermittent pneumatic compression device Consult Discharge Plan - Plan Referrals: Na Johansen CNP [Primary Care Provider] - 08/06/17 8:15 am (Please follow up with Na Johansen) Jeevan Ramirez MD [Partnered Physician] - (in 3 weeks-call for appointment)
--- NOTE | 2017-07-25 14:09 | Internal Med Progress Note ---
<Ana MariaJovani preciado - Last Filed: 07/25/17 14:50> Date of Encounter: 07/25/17 Time of Encounter: 11:00 - Assessment and plan (1) Acute respiratory distress Current Visit: Yes Status: Acute Assessment and plan: - Likely secondary to fluid overload from CHF exacerbation - Reported weight gain of 30 pounds since 07/10/17 - Taking off fluid in hemodialysis. Took off 4L today without complications - Currently tolerating 4 L of oxygen via nasal cannula. States no improvement from shortness of breath - Monitor very closely and increase O2 if necessary. - Plan to continue hemodialysis with fluid removal. - Vascular surgery revised fistula 07/24/17, patient unable to use this morning due to pain. Will attempt at next session once it has healed. (2) Acute blood loss anemia Current Visit: Yes Status: Acute Assessment and plan: - H/H of 7.3, stable from s/p 1 unit PRBCs yesterday. Reported bleeding from catheter. - platelets at 53,000 today, after getting 2 bags of platelets before vascular surgery 07/24/17. - catheter bleeding again today after dialysis. Pressure dressings in place, will monitor for further bleeding. - patient evaluated by IR this afternoon after dialysis, no permanent catheter at this time. - Continue to monitor and transfusion if necessary (3) Anemia in chronic kidney disease Current Visit: Yes Status: Chronic Assessment and plan: Hemoglobin stable today after transfusion. Continue weekly erythropoietin stimulating agents. Qualifiers: Chronic kidney disease stage: on chronic dialysis Qualified Code(s): N18.6 - End stage renal disease; D63.1 - Anemia in chronic kidney disease; Z99.2 - Dependence on renal dialysis (4) ESRD (end stage renal disease) on dialysis Current Visit: Yes Status: Chronic Assessment and plan: Nephrology consulted, appreciate recommendations - HD yesterday and today via temporary femoral catheter. Fistula revised but experiencing pain. Unable to use today - Continue regular scheduled dialysis for fluid removal (-4L today) - Temporary dialysis catheter in left femoral - We will monitor closely for any further bleeding (5) Atrial fibrillation with rapid ventricular response Current Visit: Yes Status: Acute Assessment and plan: - Normal sinus rhythm this morning. Continue home Cardizem - Continue calcium channel lex, anti-coagulation held this time due to dialysis catheter placements and history of oozing from sites - Metoprolol 5 mg IV PRN HR >110 (6) DVT prophylaxis Current Visit: Yes Status: Acute Assessment and plan: Held SQ heparin due to hematuria, low platelets, bleeding. on SCD's - Time Spent With Patient 25 - 35 minutes - Subjective Interval history: Patient was seen and examined at bedside this morning in dialysis. She is reporting some pain this morning from fistula site that was revised by vascular surgery yesterday afternoon. Dialysis was performed well with temporary femoral catheter. She is still complaining of some chest pain associated with cough, and SOB. - Constitutional Vitals: Temp Pulse Resp BP Pulse Ox 98.2 F 122 18 101/56 94 07/25/17 13:00 07/25/17 13:00 07/25/17 13:00 07/25/17 13:00 07/25/17 13:00 General appearance: Present: A&O X 3, no acute distress, loss of weight Exam: Gen.: Vitals noted. No acute distress. AAOx3 HEENT: PERRL/EOMI, oropharynx clear, Normocephalic, atraumatic, MMM Neck: Supple. No adenopathy. Cardiac: RRR, no murmur, +S1/S2 Pulmonary: Course rales diffusely. Otherwise CTA bilaterally, no wheezes, rales or rhonchi, equal chest expansion Abdomen: soft, nontender, BS noted, no guarding Back: Nontender throughout. MSK: ROM intact, no joint swelling noted Skin: Significant ecchymosis Extremities: no BLE edema, nontender calf, no cyanosis or clubbing Neuro: A&Ox3, moves all extremities, no focal deficits Psych: Appropriate mood and behavior Internal Medicine: Result - Labs CBC & Chem 7: 07/25/17 03:20 07/25/17 03:20 Labs: Short CBC 07/25/17 Range/Units 03:20 WBC 5.0 (4.3-11.1) K/mcL Hgb 7.3 L (11.5-15.4) g/dL Hct 23.8 L (35.3-44.9) % Plt Count 56 L D (140-400) K/mcL BMP 07/25/17 03:20 Sodium 139 Potassium 5.0 H Chloride 102 Carbon Dioxide 25 BUN 43 H D Creatinine 5.21 H Glucose 111 H Calcium 7.1 L - ABG Interpretation ABG results: PT/INR, D-dimer PT 12.2 Seconds (9.4-12.1) H 07/20/17 05:20 - VTE Documentation of Mechanical Device: Intermittent pneumatic compression device Consult Discharge Plan - Plan Referrals: Na Johansen CNP [Primary Care Provider] - 08/06/17 8:15 am (Please follow up with Na Johansen) Jeevan Ramirez MD [Partnered Physician] - (in 3 weeks-call for appointment) <Elliott Moody - Last Filed: 07/25/17 16:55> Date of Encounter: 07/25/17 - Constitutional Vitals: Temp Pulse Resp BP Pulse Ox 98.2 F 122 18 103/63 94 07/25/17 13:00 07/25/17 13:00 07/25/17 15:33 07/25/17 16:36 07/25/17 15:33 Internal Medicine: Result - Labs CBC & Chem 7: 07/25/17 03:20 07/25/17 03:20 Labs: Short CBC 07/25/17 Range/Units 03:20 WBC 5.0 (4.3-11.1) K/mcL Hgb 7.3 L (11.5-15.4) g/dL Hct 23.8 L (35.3-44.9) % Plt Count 56 L D (140-400) K/mcL BMP 07/25/17 03:20 Sodium 139 Potassium 5.0 H Chloride 102 Carbon Dioxide 25 BUN 43 H D Creatinine 5.21 H Glucose 111 H Calcium 7.1 L - ABG Interpretation ABG results: PT/INR, D-dimer PT 12.2 Seconds (9.4-12.1) H 07/20/17 05:20 - Impressions Impressions AV Shunt Angiogram 07/21/17 00:00 IMPRESSION: At least moderate stenosis at the venous anastomosis of the graft, successfully treated with balloon angioplasty. D/ / 07/22/2017 13:20:17 Khris Garza MD / Christina Dale Interpreting Provider: Khris Garza MD Guidance Needle Placement Ultrasound 07/21/17 00:00 IMPRESSION: At least moderate stenosis at the venous anastomosis of the graft, successfully treated with balloon angioplasty. D/ / 07/22/2017 13:20:17 Khris Garza MD / Christina Dale Interpreting Provider: Khris Garza MD TRAINING, Venous 07/21/17 00:00 IMPRESSION: At least moderate stenosis at the venous anastomosis of the graft, successfully treated with balloon angioplasty. D/ / 07/22/2017 13:20:17 Khris Garza MD / Christina Dale Interpreting Provider: Khris Garza MD - Attending Attestation I examined this patient and my medical decision-making was reviewed with the Resident Physician. I agree with the documented findings, disposition and treatment plan as described except to the extent set forth below. We will follow recommendation from nephrology.
[2017-07-25] MEDS: Albuterol 2.5 MG/3 ML NEBULIZER IH PRN (15:33)
[2017-07-25] MEDS ORDERED: *HR* Metoprolol 5 MG/5 ML VIAL IVP ONE (17:25)
[2017-07-25] MEDS: Famotidine 20 MG TABLET PO SCH (21:36)
[2017-07-26] MEDS: *HR* Promethazine 25 MG/ML VIAL IVP PRN (00:18)
[2017-07-26] MEDS: *HR* Metoprolol 5 MG/5 ML VIAL IVP PRN ×3 (03:59→12:47)
[2017-07-26 04:38] LABS: Hemoglobin 7.5 g/dL (11.5-15.4); Red Cell Distribution Width 16.3 % (11.5-14.5)
[2017-07-26 04:40] LABS: Immature Platelets 6.4 % (1.1-6.1); Mean Corpuscular HGB Conc 31.3 g/dL (31.6-35.5); Mean Corpuscular Hemoglobin 29.8 pg (28.0-33.3); Mean Corpuscular Volume 95.2 fL (83.0-100.0); Red Blood Count 2.52 M/mcL (3.82-4.97)
[2017-07-26 04:52] LABS: Calcium 7.3 mg/dL (8.6-10.8); Potassium 4.7 mEq/L (3.5-4.5)
[2017-07-26] MEDS: *HR* HYDROcodone/Acet 5/325 mg TABLET PO PRN ×2 (06:17→14:12)
[2017-07-26] MEDS: Budesonide/Formoterol 160/4.5 MDI IH SCH ×2 (07:48→22:00)
[2017-07-26] MEDS: Nicotine 21 MG PATCH.TD24 TD SCH (09:11)
[2017-07-26] MEDS: Renal Vitamin 1 MG CAPSULE PO SCH (09:11)
[2017-07-26] MEDS: predniSONE 20 MG TABLET PO SCH (09:11)
[2017-07-26] MEDS: Lactobacillus 1 EACH CAP.SPRINK PO SCH ×2 (09:11→20:37)
[2017-07-26] MEDS: Diltiazem CD (24hr) 120 MG CAPSULE PO SCH (09:11)
--- NOTE | 2017-07-26 12:08 | Nephrology Progress Note ---
Date of Encounter: 07/26/17 Time of Encounter: 11:50 - Assessment and Plan (1) ESRD (end stage renal disease) on dialysis Current Visit: Yes Status: Chronic Next HD planned for friday Potassium improved at 4.7 after HD, will monitor on renal diet (2) Problem with dialysis access Current Visit: Yes Status: Acute s/p surgical intervention 2 days ago and still with pain around site. Continue pain meds and ice pack as well to minimize inflammation Will continue to rest access today and attempt cannulation for next HD on friday Qualifiers: Encounter type: subsequent encounter Qualified Code(s): T82.898D - Other specified complication of vascular prosthetic devices, implants and grafts, subsequent encounter (3) Anemia in chronic kidney disease Current Visit: Yes Status: Chronic Hgb low but stable at 7.5, will monitor Transfusion parameters per primary team Continue aranesp, s/p increased dose yesterday Qualifiers: Chronic kidney disease stage: on chronic dialysis Qualified Code(s): N18.6 - End stage renal disease; D63.1 - Anemia in chronic kidney disease; Z99.2 - Dependence on renal dialysis (4) Hypocalcemia Current Visit: No Status: Acute Calcium remains low, but slightly improved likely corrected for low albumin even better Continue ergocalciferol for now PTH elevated as a result, continue calcitriol during hospital stay (will switch back to iv hectorol on discharge during HD treatments) Subjective Principal diagnosis: ESRD on dialysis, hypocalcemia Interval history: Pt seen and examined and still with complaint of pain around AV access requiring pain meds. No other complaints at this time Objective - Vital Signs Vital signs: Vital Signs Temp Pulse Resp BP Pulse Ox 07/26/17 10:51 98.0 F 139 16 90/60 98 07/26/17 09:15 92 07/26/17 07:49 16 92 07/26/17 06:59 97.3 F L 103 16 91/45 92 07/26/17 03:41 98.3 F 88 16 99/66 98 07/25/17 23:42 97.8 F 104 16 95/53 94 07/25/17 21:46 91/50 07/25/17 20:31 16 99 07/25/17 19:56 98.7 F 107 16 80/48 100 07/25/17 18:50 92/57 07/25/17 18:15 114 89/52 07/25/17 16:36 103/63 07/25/17 15:33 18 94 07/25/17 15:11 96/60 07/25/17 14:36 95/47 07/25/17 13:00 98.2 F 122 18 101/56 94 Intake and Output 07/25/17 07/26/17 07/26/17 23:59 07:59 15:59 Intake Total 250 / 250 100 / 100 Output Total 225 / 225 0 / 0 Balance 25 100 / 100 Intake: Oral 250 / 250 100 / 100 Output: Urine 0 / 0 Stool 200 / 200 Urostomy Other: Meal SANDWICH,TOMATOES,CRACKERS Breakfast Percent of Meal Consumed 30% Stool Size Large Stool Consistency soft Stool Color Brown Weight 71.2 kg Patient Weight 07/26/17 23:59 Weight 71.2 kg - General Appearance General appearance: Present: chronically ill (mild distress due to pain) EENT: Present: ATNC, mucous membranes dry Neck: Present: no JVD, supple Additional Comments: improved areation ant bilat Cardiology: Present: no edema, normal S1, normal S2 Dialysis Vascular Access: Arteriovenous Fistula thrill: Yes bruit: Yes Additional Comments: ecchymoses noted around site Gastrointestinal: Present: no tenderness, no guarding Additional Comments: +colostomy Integumentary: Present: warm and dry, ecchymotic (chest area as well) Neurologic: Present: no focal deficit Musculoskeletal: Present: no deformities Psychiatric: Present: mood/affect appropriate, cooperative - Lab 07/26/17 04:20 07/26/17 04:20 Most recent lab results Calcium 7.3 mg/dL (8.6-10.8) L 07/26/17 04:20 Phosphorus 8.1 mg/dL (2.3-4.7) H 07/22/17 03:40 Magnesium 1.6 mg/dL (1.6-2.6) 07/24/17 03:01 - VTE Documentation of Mechanical Device: Intermittent pneumatic compression device Consult Discharge Plan - Plan Referrals: Na Johansen, TYLER [Primary Care Provider] - 08/06/17 8:15 am (Please follow up with Na Johansen) Jeevan Ramirez MD [Partnered Physician] - (in 3 weeks-call for appointment)
[2017-07-26] MEDS: *HR* Morphine 2 MG/ML SYRINGE IVP PRN ×2 (12:10→18:22)
--- NOTE | 2017-07-26 18:08 | Internal Med Progress Note ---
Date of Encounter: 07/26/17 Time of Encounter: 18:07 - Assessment and plan (1) Acute respiratory distress Current Visit: Yes Status: Acute Assessment and plan: - Likely secondary to fluid overload from CHF exacerbation - Reported weight gain of 30 pounds since 07/10/17 - Taking off fluid in hemodialysis. Took off 4L today without complications - Currently tolerating 4 L of oxygen via nasal cannula. States no improvement from shortness of breath - Monitor very closely and increase O2 if necessary. - Plan to continue hemodialysis with fluid removal. - Vascular surgery revised fistula 07/24/17, patient unable to use this morning due to pain. Will attempt at next session once it has healed. (2) Anemia in chronic kidney disease Current Visit: Yes Status: Chronic Assessment and plan: Hemoglobin stable today after transfusion. Continue weekly erythropoietin stimulating agents. Qualifiers: Chronic kidney disease stage: on chronic dialysis Qualified Code(s): N18.6 - End stage renal disease; D63.1 - Anemia in chronic kidney disease; Z99.2 - Dependence on renal dialysis (3) ESRD (end stage renal disease) on dialysis Current Visit: Yes Status: Chronic Assessment and plan: Nephrology consulted, appreciate recommendations - HD yesterday and today via temporary femoral catheter. Fistula revised but experiencing pain. Unable to use today - Continue regular scheduled dialysis for fluid removal (-4L today) - Temporary dialysis catheter in left femoral - We will monitor closely for any further bleeding (4) Ileostomy in place Current Visit: No Status: Chronic Assessment and plan: Stable (5) DVT prophylaxis Current Visit: Yes Status: Acute Assessment and plan: Held SQ heparin due to hematuria, low platelets, bleeding. on SCD's - Subjective Interval history: Patient seen and examined. Chart reviewed. patient is comfortably lying in bed. - Constitutional Vitals: Temp Pulse Resp BP Pulse Ox 97.7 F 101 18 143/70 94 07/26/17 16:21 07/26/17 16:21 07/26/17 16:21 07/26/17 16:21 07/26/17 16:21 General appearance: Present: A&O X 3, no acute distress, loss of weight - Head Head exam: Present: atraumatic, normocephalic - Eye Eye exam: Present: PERRL, conjuntiva pink, sclera anicteric Pupils: Present: PERRL - Neck Neck exam general surgery: Present: supple, trachea midline. Absent: lymphadenopathy - Respiratory Respiratory exam: Present: CTAB. Absent: accessory muscle use, rales, rhonchi, wheezes - Cardiovascular Cardiovascular exam: Present: RRR, +S1, +S2. Absent: diastolic murmur, gallop, rubs, systolic murmur - GI/Abdominal GI/Abdominal exam: Present: normal bowel sounds, soft, no peritoneal signs. Absent: distended, tenderness - Extremities Exam Extremities exam: Present: warm, radial pulses palpable and symmetrical. Absent : calf tenderness, cyanotic, pedal edema - Neurological Exam Neurological exam: Present: CN II-XII intact, oriented X3, no focal deficits. Absent: pronater drift, facial droop, speech deficit - Skin Skin exam: Present: dry, intact Internal Medicine: Result - Labs CBC & Chem 7: 07/26/17 04:20 07/26/17 04:20 Labs: Short CBC 07/26/17 Range/Units 04:20 WBC 4.6 (4.3-11.1) K/mcL Hgb 7.5 L (11.5-15.4) g/dL Hct 24.0 L (35.3-44.9) % Plt Count 55 L (140-400) K/mcL BMP 07/26/17 04:20 Sodium 139 Potassium 4.7 H Chloride 101 Carbon Dioxide 27 BUN 40 H Creatinine 4.98 H Glucose 106 H Calcium 7.3 L - ABG Interpretation ABG results: PT/INR, D-dimer PT 12.2 Seconds (9.4-12.1) H 07/20/17 05:20 - VTE Documentation of Mechanical Device: Intermittent pneumatic compression device Consult Discharge Plan - Plan Referrals: Na Johansen CNP [Primary Care Provider] - 08/06/17 8:15 am (Please follow up with Na Johansen) Jeevan Ramirez MD [Partnered Physician] - (in 3 weeks-call for appointment)
[2017-07-26] MEDS: Famotidine 20 MG TABLET PO SCH (20:37)
[2017-07-27] MEDS: *HR* Morphine 2 MG/ML SYRINGE IVP PRN ×4 (00:38→23:50)
[2017-07-27] MEDS: Ondansetron 4 MG/2 ML VIAL IVP PRN ×2 (00:38→17:39)
[2017-07-27] MEDS: *HR* HYDROcodone/Acet 5/325 mg TABLET PO PRN ×3 (05:56→20:19)
[2017-07-27] MEDS: Budesonide/Formoterol 160/4.5 MDI IH SCH ×2 (07:57→20:37)
[2017-07-27] MEDS: predniSONE 20 MG TABLET PO SCH (09:09)
[2017-07-27] MEDS: Renal Vitamin 1 MG CAPSULE PO SCH (09:09)
[2017-07-27] MEDS: Lactobacillus 1 EACH CAP.SPRINK PO SCH ×2 (09:09→20:19)
[2017-07-27] MEDS: Nicotine 21 MG PATCH.TD24 TD SCH (09:10)
[2017-07-27] MEDS: Diltiazem CD (24hr) 120 MG CAPSULE PO SCH (09:10)
--- NOTE | 2017-07-27 12:23 | Nephrology Progress Note ---
Date of Encounter: 07/27/17 Time of Encounter: 10:40 - Assessment and Plan (1) ESRD (end stage renal disease) on dialysis Current Visit: Yes Status: Chronic Next HD planned for friday Potassium improved at 4.7 after HD, will monitor on renal diet (2) Problem with dialysis access Current Visit: Yes Status: Acute s/p surgical intervention 3 days ago. Continue pain meds and ice pack as well to minimize inflammation Will continue to rest access today and attempt cannulation for next HD on friday. Will use emla cream as well Qualifiers: Encounter type: subsequent encounter Qualified Code(s): T82.898D - Other specified complication of vascular prosthetic devices, implants and grafts, subsequent encounter (3) Anemia in chronic kidney disease Current Visit: Yes Status: Chronic Hgb low but stable at 7.5 as of yesterday Transfusion parameters per primary team Continue aranesp Qualifiers: Chronic kidney disease stage: on chronic dialysis Qualified Code(s): N18.6 - End stage renal disease; D63.1 - Anemia in chronic kidney disease; Z99.2 - Dependence on renal dialysis (4) Hypocalcemia Current Visit: No Status: Acute Calcium remains low as of yesterday, but slightly improved likely corrected for low albumin even better Continue ergocalciferol for now PTH elevated as a result, continue calcitriol during hospital stay (will switch back to iv hectorol on discharge during HD treatments) Subjective Principal diagnosis: ESRD on dialysis, hypocalcemia Interval history: Pt seen and examined and still some pain around AV access although improved after cool pack. Oozing noted from femoral temp line and also in ostomy. She also complained of sill having "a rattle in her lungs". Objective - Vital Signs Vital signs: Vital Signs Temp Pulse Resp BP Pulse Ox 07/27/17 11:02 98.0 F 85 18 128/69 100 07/27/17 07:57 16 100 07/27/17 07:17 98.0 F 80 18 125/65 100 07/27/17 05:11 97.7 F 88 16 124/70 100 07/27/17 00:07 98.2 F 76 16 119/63 100 07/26/17 22:00 17 94 07/26/17 19:10 97.6 F 84 16 112/69 95 07/26/17 16:21 97.7 F 101 18 143/70 94 07/26/17 12:50 99.5 F 114 14 101/65 92 Intake and Output 07/26/17 07/27/17 07/27/17 23:59 07:59 15:59 Intake Total 240 / 240 480 / 480 Balance 240 / 240 480 / 480 Intake: Oral 240 / 240 480 / 480 Other: Meal Dinner Breakfast Percent of Meal Consumed 10% 95% Stool Color Brown Weight 71.6 kg Patient Weight 07/27/17 23:59 Weight 71.6 kg Respiratory: Present: course breath sounds Dialysis Vascular Access: Arteriovenous Fistula thrill: Yes bruit: Yes - Lab 07/26/17 04:20 07/26/17 04:20 Most recent lab results Calcium 7.3 mg/dL (8.6-10.8) L 07/26/17 04:20 Phosphorus 8.1 mg/dL (2.3-4.7) H 07/22/17 03:40 Magnesium 1.6 mg/dL (1.6-2.6) 07/24/17 03:01 - VTE Documentation of Mechanical Device: Intermittent pneumatic compression device Consult Discharge Plan - Plan Referrals: Na Johansen CNP [Primary Care Provider] - 08/06/17 8:15 am (Please follow up with Na Johansen) Jeevan Ramirez MD [Partnered Physician] - (in 3 weeks-call for appointment)
[2017-07-27] MEDS: Acetaminophen 325 MG TABLET PO PRN (14:15)
--- NOTE | 2017-07-27 16:11 | Internal Med Progress Note ---
Date of Encounter: 07/27/17 Time of Encounter: 16:03 - Assessment and plan (1) Acute respiratory distress Current Visit: Yes Status: Acute Assessment and plan: - Likely secondary to fluid overload from CHF exacerbation - Reported weight gain of 30 pounds since 07/10/17 - Taking off fluid in hemodialysis. Took off 4L today without complications - Currently tolerating 4 L of oxygen via nasal cannula. States no improvement from shortness of breath - Monitor very closely and increase O2 if necessary. - Plan to continue hemodialysis with fluid removal. - Vascular surgery revised fistula 07/24/17, patient unable to use this morning due to pain. Will attempt at next session once it has healed. 07/27/2017 Patient still has a respiratory distress. We will get CT scan of the chest tomorrow. I have discussed with the nephrology regarding CT scan of the chest with contrast. Patient will go for dialysis after the CT scan of the chest. (2) Anemia in chronic kidney disease Current Visit: Yes Status: Chronic Assessment and plan: Hemoglobin stable today after transfusion. Continue weekly erythropoietin stimulating agents. Qualifiers: Chronic kidney disease stage: on chronic dialysis Qualified Code(s): N18.6 - End stage renal disease; D63.1 - Anemia in chronic kidney disease; Z99.2 - Dependence on renal dialysis (3) ESRD (end stage renal disease) on dialysis Current Visit: Yes Status: Chronic Assessment and plan: Nephrology consulted, appreciate recommendations - HD yesterday and today via temporary femoral catheter. Fistula revised but experiencing pain. Unable to use today - Continue regular scheduled dialysis for fluid removal (-4L today) - Temporary dialysis catheter in left femoral - We will monitor closely for any further bleeding (4) Ileostomy in place Current Visit: No Status: Chronic Assessment and plan: Stable 07/27/2017 Noted mild blood-tinged discharge in ileostomy We will get a GI opinion tomorrow. (5) DVT prophylaxis Current Visit: Yes Status: Acute Assessment and plan: Held SQ heparin due to hematuria, low platelets, bleeding. on SCD's - Subjective Interval history: Patient seen and examined. Chart reviewed. patient is comfortably lying in bed. 07/27/2017 Patient seen and examined. Chart reviewed. Patient is comfortably lying in the bed. Patient is having occasional shortness of breath. Patient has a bloody discharge in her colostomy/urostomy tube. - Constitutional Vitals: Temp Pulse Resp BP Pulse Ox 98.0 F 85 18 128/69 100 07/27/17 11:02 07/27/17 11:02 07/27/17 11:02 07/27/17 11:02 07/27/17 11:02 General appearance: Present: A&O X 3, no acute distress, loss of weight - Head Head exam: Present: atraumatic, normocephalic - Eye Eye exam: Present: PERRL, conjuntiva pink, sclera anicteric Pupils: Present: PERRL - Neck Neck exam general surgery: Present: supple, trachea midline. Absent: lymphadenopathy - Respiratory Respiratory exam: Present: CTAB. Absent: accessory muscle use, rales, rhonchi, wheezes - Cardiovascular Cardiovascular exam: Present: RRR, +S1, +S2. Absent: diastolic murmur, gallop, rubs, systolic murmur - GI/Abdominal GI/Abdominal exam: Present: normal bowel sounds, soft, no peritoneal signs. Absent: distended, tenderness - Extremities Exam Extremities exam: Present: warm, radial pulses palpable and symmetrical. Absent : calf tenderness, cyanotic, pedal edema - Neurological Exam Neurological exam: Present: CN II-XII intact, oriented X3, no focal deficits. Absent: pronater drift, facial droop, speech deficit - Skin Skin exam: Present: dry, intact Internal Medicine: Result - Labs CBC & Chem 7: 07/26/17 04:20 07/26/17 04:20 - ABG Interpretation ABG results: PT/INR, D-dimer PT 12.2 Seconds (9.4-12.1) H 07/20/17 05:20 - VTE Documentation of Mechanical Device: Intermittent pneumatic compression device Consult Discharge Plan - Plan Referrals: Na Johansen CNP [Primary Care Provider] - 08/06/17 8:15 am (Please follow up with Na Johansen) Jeevan Ramirez MD [Partnered Physician] - (in 3 weeks-call for appointment)
[2017-07-27] MEDS ORDERED: Furosemide 40 MG/4 ML VIAL IVP ONE (17:27)
[2017-07-27 18:02] LABS: Hematocrit 22.8 % (35.3-44.9); Hemoglobin 7.1 g/dL (11.5-15.4)
[2017-07-27] MEDS: Famotidine 20 MG TABLET PO SCH (20:19)
[2017-07-27] MEDS: *HR* Promethazine 25 MG/ML VIAL IVP PRN (23:50)
[2017-07-28] MEDS: *HR* HYDROcodone/Acet 5/325 mg TABLET PO PRN ×3 (03:49→20:32)
[2017-07-28] MEDS: Diltiazem CD (24hr) 120 MG CAPSULE PO SCH (08:44)
[2017-07-28] MEDS: Renal Vitamin 1 MG CAPSULE PO SCH (08:44)
[2017-07-28] MEDS: Lactobacillus 1 EACH CAP.SPRINK PO SCH ×2 (08:44→20:27)
[2017-07-28] MEDS: Nicotine 21 MG PATCH.TD24 TD SCH (08:45)
[2017-07-28] MEDS: predniSONE 20 MG TABLET PO SCH (08:45)
[2017-07-28] MEDS: *HR* Morphine 2 MG/ML SYRINGE IVP PRN ×2 (08:47→16:04)
[2017-07-28] MEDS: *HR* Promethazine 25 MG/ML VIAL IVP PRN ×2 (08:48→20:32)
--- NOTE | 2017-07-28 08:48 | Electrocardiograph Report ---
[place] [address] Test Date: 2017-07-24 Pat Name: Vannessa Parra Department: 112 Room: 2A Gender: F Utility Hand: MANOLO : 1945 Requested By: Elliott Moody Order Number: [id number] Reading MD: Ashley Falcon Measurements Intervals [place] Rate: 92 P: 52 CT: 148 QRS: 42 QRSD: 101 T: 178 QT: 345 QTc: 395 Interpretive Statements SINUS RHYTHM LEFT VENTRICULAR HYPERTROPHY AND ST-T CHANGE Electronically Signed On 07-27-2017 17:46:37 EDT by Ashley Falcon
--- NOTE | 2017-07-28 08:49 | Electrocardiograph Report ---
[place] [address] Test Date: 2017-07-25 Pat Name: Vannessa Parra Department: 112 Room: [facility] Gender: F Web Content Editor: Luh : 1945 Requested By: Elliott Moody Order Number: [id number] Reading MD: Ashley Falcon Measurements Intervals [place] Rate: 119 P: [place]: 0 QRS: 21 QRSD: 94 T: 217 QT: 295 QTc: 365 Interpretive Statements ATRIAL FIBRILLATION WITH RAPID VENTRICULAR RESPONSE ST-T WAVE ABNORMALITIES - CONSIDER ISCHEMIA Electronically Signed On 07-27-2017 18:02:00 EDT by Ashley Falcon
[2017-07-28 09:04] LABS: Hematocrit 22.5 % (35.3-44.9); Hemoglobin 6.8 g/dL (11.5-15.4); Immature Platelets 5.4 % (1.1-6.1); Mean Corpuscular HGB Conc 30.2 g/dL (31.6-35.5); Mean Corpuscular Hemoglobin 28.8 pg (28.0-33.3); Mean Corpuscular Volume 95.3 fL (83.0-100.0); Mean Platelet Volume 11.5 fL (9.4-12.4); Red Blood Count 2.36 M/mcL (3.82-4.97)
[2017-07-28 09:15] LABS: Calcium 7.3 mg/dL (8.6-10.8); Potassium 5.1 mEq/L (3.5-4.5)
--- NOTE | 2017-07-28 09:53 | Electrocardiograph Report ---
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
--- NOTE | 2017-07-28 11:08 | Internal Med Progress Note ---
<Rob Campbell - Last Filed: 07/28/17 15:11> Date of Encounter: 07/28/17 Time of Encounter: 09:30 - Assessment and plan (1) Acute respiratory distress Current Visit: Yes Status: Acute Assessment and plan: - Likely secondary to fluid overload from CHF exacerbation - Reported weight gain of 30 pounds since 07/10/17 - Taking off fluid in hemodialysis. Took off 4L today without complications - Currently tolerating 4 L of oxygen via nasal cannula. States no improvement from shortness of breath - Monitor very closely and increase O2 if necessary. - Plan to continue hemodialysis with fluid removal. - Vascular surgery revised fistula 07/24/17, patient unable to use this morning due to pain. Will attempt at next session once it has healed. 07/27/2017 Patient still has a respiratory distress. We will get CT scan of the chest tomorrow. I have discussed with the nephrology regarding CT scan of the chest with contrast. Patient will go for dialysis after the CT scan of the chest. 07/28/2017 -Patient still has respiratory distress -CT chest demonstrates "1. New right upper lobe peribronchovascular ground- glass opacities suggestive of an infectious/inflammatory etiology 2. Increasing pleural effusions bilaterally compared to exam of June 30, 2017, now with moderate bilateral pleural effusions and compressive atelectasis of the left lower lobe and right lower lobe." -We will continue with HD and fluid removal (2) Anemia in chronic kidney disease Current Visit: Yes Status: Chronic Assessment and plan: 07/27/2017 Hemoglobin stable today after transfusion. Continue weekly erythropoietin stimulating agents. 07/28/2017 -The patient has relatively stable Hgb. -comorbid blood per Ileostomy -Nephrology and GI are on board Qualifiers: Chronic kidney disease stage: on chronic dialysis Qualified Code(s): N18.6 - End stage renal disease; D63.1 - Anemia in chronic kidney disease; Z99.2 - Dependence on renal dialysis (3) ESRD (end stage renal disease) Current Visit: Yes Status: Chronic Assessment and plan: 07/27/17 Nephrology consulted, appreciate recommendations - HD yesterday and today via temporary femoral catheter. Fistula revised but experiencing pain. Unable to use today - Continue regular scheduled dialysis for fluid removal (-4L today) - Temporary dialysis catheter in left femoral - We will monitor closely for any further bleeding 07/28/17 -Nephrology is consulted -Continue regular scheduled dialysis for fluid removal -AV Graft was successfully cannulated today, Temp Cath can be removed. (4) Ileostomy in place Current Visit: No Status: Chronic Assessment and plan: Stable 07/27/2017 Noted mild blood-tinged discharge in ileostomy We will get a GI opinion tomorrow. 07/28/2017 GI attempted to see the patient this morning, but were unable to due to the patient being absent from room - Subjective Interval history: Patient is resting comfortably in bed at time of examination. She notes that she is having dyspnea on exertion, and she has had a cough developing. She otherwise is doing well and has no acute complaints. - Constitutional Vitals: Temp Pulse Resp BP Pulse Ox 97.9 F 77 16 109/63 93 07/28/17 04:29 07/28/17 04:29 07/28/17 04:29 07/28/17 04:07/28/17 04:29 General appearance: Present: A&O X 3, no acute distress, loss of weight - Head Head exam: Present: atraumatic, normocephalic - Eye Eye exam: Present: PERRL, conjuntiva pink, sclera anicteric Pupils: Present: PERRL - Neck Neck exam general surgery: Present: supple, trachea midline. Absent: lymphadenopathy - Respiratory Respiratory exam: Present: CTAB. Absent: accessory muscle use, rales, rhonchi, wheezes - Cardiovascular Cardiovascular exam: Present: RRR, +S1, +S2. Absent: diastolic murmur, gallop, rubs, systolic murmur - GI/Abdominal GI/Abdominal exam: Present: normal bowel sounds, soft, no peritoneal signs. Absent: distended, tenderness - Extremities Exam Extremities exam: Present: warm, radial pulses palpable and symmetrical. Absent : calf tenderness, cyanotic, pedal edema - Neurological Exam Neurological exam: Present: CN II-XII intact, oriented X3, no focal deficits. Absent: pronater drift, facial droop, speech deficit - Skin Skin exam: Present: dry, intact Additional comments: Diffuse ecchymosis over chest and upper extremities. Internal Medicine: Result - Labs CBC & Chem 7: 07/28/17 08:52 07/28/17 08:52 Labs: Short CBC 07/27/17 07/28/17 Range/Units 17:50 08:52 WBC 4.3 (4.3-11.1) K/mcL Hgb 7.1 L 6.8 L (11.5-15.4) g/dL Hct 22.8 L 22.5 L (35.3-44.9) % Plt Count 59 L (140-400) K/mcL BMP 07/28/17 08:52 Sodium 136 Potassium 5.1 H Chloride 99 Carbon Dioxide 21 BUN 70 H D Creatinine 7.40 H Glucose 156 H Calcium 7.3 L - ABG Interpretation ABG results: PT/INR, D-dimer PT 12.2 Seconds (9.4-12.1) H 07/20/17 05:20 - Impressions Impressions Chest CT 07/28/17 08:00 IMPRESSION: 1. New right upper lobe peribronchovascular ground-glass opacities suggestive of an infectious/inflammatory etiology. To a lesser degree, similar finding is seen in the right middle lobe. Recommend CT chest in three months to ensure resolution. 2. Increasing pleural effusions bilaterally compared to exam of June 30, 2017, now with moderate bilateral pleural effusions and compressive atelectasis of the left lower lobe and right lower lobe. 3. Mild cardiomegaly. 4. Coronary artery disease. 5. Prominent mediastinal lymph nodes, probably reactive in the setting of associated pulmonary findings. D/ / 07/28/2017 08:37:01 Waqar Kevin MD / serenity Interpreting Provider: Waqar Kevin MD - VTE Documentation of Mechanical Device: Intermittent pneumatic compression device Consult Discharge Plan - Plan Referrals: Na Johansen CNP [Primary Care Provider] - 08/06/17 8:15 am (Please follow up with Na Johansen) Jeevan Ramirez MD [Partnered Physician] - (in 3 weeks-call for appointment) <Elliott Moody - Last Filed: 07/28/17 19:13> Date of Encounter: 07/28/17 - Assessment and plan (1) Acute respiratory distress Current Visit: Yes Status: Acute (2) Anemia in chronic kidney disease Current Visit: Yes Status: Chronic Qualifiers: Chronic kidney disease stage: on chronic dialysis Qualified Code(s): N18.6 - End stage renal disease; D63.1 - Anemia in chronic kidney disease; Z99.2 - Dependence on renal dialysis (3) ESRD (end stage renal disease) on dialysis Current Visit: Yes Status: Chronic (4) Ileostomy in place Current Visit: No Status: Chronic (5) DVT prophylaxis Current Visit: Yes Status: Acute - Constitutional Vitals: Temp Pulse Resp BP Pulse Ox 98.2 F 91 17 129/69 95 07/28/17 16:51 07/28/17 16:51 07/28/17 16:51 07/28/17 16:51 07/28/17 16:51 Internal Medicine: Result - Labs CBC & Chem 7: 07/28/17 17:15 07/28/17 08:52 Labs: Short CBC 07/28/17 07/28/17 Range/Units 08:52 17:15 WBC 4.3 (4.3-11.1) K/mcL Hgb 6.8 L 9.1 L D (11.5-15.4) g/dL Hct 22.5 L 28.3 L (35.3-44.9) % Plt Count 59 L (140-400) K/mcL BMP 07/28/17 08:52 Sodium 136 Potassium 5.1 H Chloride 99 Carbon Dioxide 21 BUN 70 H D Creatinine 7.40 H Glucose 156 H Calcium 7.3 L - ABG Interpretation ABG results: PT/INR, D-dimer PT 12.2 Seconds (9.4-12.1) H 07/20/17 05:20 - Impressions Impressions Chest CT 07/28/17 08:00 IMPRESSION: 1. New right upper lobe peribronchovascular ground-glass opacities suggestive of an infectious/inflammatory etiology. To a lesser degree, similar finding is seen in the right middle lobe. Recommend CT chest in three months to ensure resolution. 2. Increasing pleural effusions bilaterally compared to exam of June 30, 2017, now with moderate bilateral pleural effusions and compressive atelectasis of the left lower lobe and right lower lobe. 3. Mild cardiomegaly. 4. Coronary artery disease. 5. Prominent mediastinal lymph nodes, probably reactive in the setting of associated pulmonary findings. D/ / 07/28/2017 08:37:01 Waqar Kevin MD / serenity Interpreting Provider: Waqar Kevin MD - Attending Attestation I examined this patient and my medical decision-making was reviewed with the Resident Physician. I agree with the documented findings, disposition and treatment plan as described except to the extent set forth below. Noted that we will manage to get cannulation done in the graft. CT chest findings as above. Plan: Awaiting further GI evaluation for bleeding/oozing from the ileostomy tube. We will consult pulmonary tomorrow. Nephrology on the board and we will follow the recommendations.
[2017-07-28] MEDS: Budesonide/Formoterol 160/4.5 MDI IH SCH ×2 (11:12→20:08)
[2017-07-28] MEDS ORDERED: 0.9 % Sodium Chloride 250 ML IVC PRN (11:17)
--- NOTE | 2017-07-28 12:49 | Nephrology Progress Note ---
Date of Encounter: 07/28/17 Time of Encounter: 11:45 - Assessment and Plan (1) ESRD (end stage renal disease) on dialysis Current Visit: Yes Status: Chronic Next HD planned for friday Potassium improved at 4.7 after HD, will monitor on renal diet (2) Problem with dialysis access Current Visit: Yes Status: Acute s/p surgical intervention 3 days ago. Continue pain meds and ice pack as well to minimize inflammation Will continue to rest access today and attempt cannulation for next HD on friday. Will use emla cream as well Qualifiers: Encounter type: subsequent encounter Qualified Code(s): T82.898D - Other specified complication of vascular prosthetic devices, implants and grafts, subsequent encounter (3) Anemia in chronic kidney disease Current Visit: Yes Status: Chronic Hgb low but stable at 7.5 as of yesterday Transfusion parameters per primary team Continue aranesp Qualifiers: Chronic kidney disease stage: on chronic dialysis Qualified Code(s): N18.6 - End stage renal disease; D63.1 - Anemia in chronic kidney disease; Z99.2 - Dependence on renal dialysis (4) Hypocalcemia Current Visit: No Status: Acute Calcium remains low as of yesterday, but slightly improved likely corrected for low albumin even better Continue ergocalciferol for now PTH elevated as a result, continue calcitriol during hospital stay (will switch back to iv hectorol on discharge during HD treatments) Subjective Principal diagnosis: ESRD on dialysis, hypocalcemia Interval history: Pt seen and examined and still some pain around AV access although improved after cool pack. Oozing noted from femoral temp line and also in ostomy. She also complained of sill having "a rattle in her lungs". Objective - Vital Signs Vital signs: Vital Signs Temp Pulse Resp BP Pulse Ox 07/28/17 11:12 16 93 07/28/17 04:29 97.9 F 77 16 109/63 93 07/27/17 23:50 97.8 F 80 22 125/64 100 07/27/17 20:37 17 99 07/27/17 19:23 97.5 F L 80 20 132/73 97 07/27/17 17:36 98.7 F 66 16 125/69 99 Intake and Output 07/27/17 07/28/17 07/28/17 23:59 07:59 15:59 Intake Total 0 / 0 150 / 150 Output Total 0 / 0 Balance 0 / 0 150 / 150 Intake: Oral 0 / 0 150 / 150 Output: Urine 0 / 0 Other: Meal Breakfast Percent of Meal Consumed 80% Stool Consistency soft Stool Color Brown - Lab 07/28/17 08:52 07/28/17 08:52 Most recent lab results Calcium 7.3 mg/dL (8.6-10.8) L 07/28/17 08:52 Phosphorus 8.1 mg/dL (2.3-4.7) H 07/22/17 03:40 Magnesium 1.6 mg/dL (1.6-2.6) 07/24/17 03:01 - VTE Documentation of Mechanical Device: Intermittent pneumatic compression device Consult Discharge Plan - Plan Referrals: Na Johansen CNP [Primary Care Provider] - 08/06/17 8:15 am (Please follow up with Na Joahnsen) Jeevan Ramirez MD [Partnered Physician] - (in 3 weeks-call for appointment)
[2017-07-28] MEDS ORDERED: 0.9 % Sodium Chloride 3,000 ML ONE (12:58)
--- NOTE | 2017-07-28 14:59 | Event Note ---
Date of Encounter: 07/28/17 Time of Encounter: 14:57 Attempted to see pt, but she was out of her room on all 3 attempts. We were consulted for evaluation of bloody discharge from her ileostomy. Patient is anemic with Hgb 6.8 this morning. Full consult to follow tomorrow.
[2017-07-28 17:28] LABS: Hematocrit 28.3 % (35.3-44.9); Hemoglobin 9.1 g/dL (11.5-15.4)
[2017-07-28] MEDS: Albuterol 2.5 MG/3 ML NEBULIZER IH PRN (20:16)
[2017-07-28] MEDS: Famotidine 20 MG TABLET PO SCH (20:27)
[2017-07-29] MEDS ORDERED: 0.9 % Sodium Chloride 250 ML ONE (01:48)
[2017-07-29 01:59] LABS: Hematocrit 27.2 % (35.3-44.9); Hemoglobin 8.6 g/dL (11.5-15.4)
[2017-07-29 02:04] LABS: INR 1.2; Prothrombin Time 13.3 Seconds (9.4-12.1)
[2017-07-29 02:06] LABS: Activated Partial Thrombo Time 26.4 Seconds (26.0-36.0)
[2017-07-29] MEDS: *HR* Morphine 2 MG/ML SYRINGE IVP PRN ×3 (04:14→22:51)
[2017-07-29] MEDS: *HR* HYDROcodone/Acet 5/325 mg TABLET PO PRN ×3 (05:48→18:54)
[2017-07-29 06:01] LABS: Basophils % 0.2 %; Hemoglobin 9.5 g/dL (11.5-15.4)
[2017-07-29 06:03] LABS: Eosinophils % 0.9 %; Hematocrit 30.1 % (35.3-44.9); Immature Granulocytes % 0.2 % (0-4); Immature Platelets 5.4 % (1.1-6.1); Lymphocytes # 0.7 K/mcL (0.6-4.6); Lymphocytes % 15.9 %; Mean Corpuscular HGB Conc 31.6 g/dL (31.6-35.5); Mean Corpuscular Hemoglobin 28.4 pg (28.0-33.3); Mean Corpuscular Volume 90.1 fL (83.0-100.0); Mean Platelet Volume 11.8 fL (9.4-12.4); Monocytes # 0.2 K/mcL (0.0-1.3); Monocytes % 5.4 %; Neutrophils # 3.4 K/mcL (1.6-8.9); Red Blood Count 3.34 M/mcL (3.82-4.97); Red Cell Distribution Width 17.4 % (11.5-14.5); Segmented Neutrophils % 77.4 %
[2017-07-29 06:06] LABS: Platelet Count 57 K/mcL (140-400)
[2017-07-29 06:13] LABS: Calcium 7.3 mg/dL (8.6-10.8); Potassium 4.4 mEq/L (3.5-4.5)
--- NOTE | 2017-07-29 06:34 | Internal Med Progress Note ---
Date of Encounter: 07/29/17 Time of Encounter: 06:34 - Assessment and plan (1) Acute respiratory distress Current Visit: Yes Status: Acute (2) Anemia in chronic kidney disease Current Visit: Yes Status: Chronic Qualifiers: Chronic kidney disease stage: on chronic dialysis Qualified Code(s): N18.6 - End stage renal disease; D63.1 - Anemia in chronic kidney disease; Z99.2 - Dependence on renal dialysis (3) ESRD (end stage renal disease) Current Visit: Yes Status: Chronic (4) Ileostomy in place Current Visit: No Status: Chronic - Subjective Interval history: Patient is resting comfortably in bed at time of examination. She notes that she is having dyspnea on exertion, and she has had a cough developing. She otherwise is doing well and has no acute complaints. - Constitutional Vitals: Temp Pulse Resp BP Pulse Ox 98.6 F 82 18 131/71 96 07/29/17 04:53 07/29/17 04:53 07/29/17 04:53 07/29/17 04:53 07/29/17 04:53 General appearance: Present: A&O X 3, no acute distress, loss of weight Internal Medicine: Result - Labs CBC & Chem 7: 07/29/17 05:45 07/29/17 05:45 Labs: Short CBC 07/28/17 07/28/17 07/29/17 Range/Units 08:52 17:15 01:47 WBC 4.3 (4.3-11.1) K/mcL Hgb 6.8 L 9.1 L D 8.6 L (11.5-15.4) g/dL Hct 22.5 L 28.3 L 27.2 L (35.3-44.9) % Plt Count 59 L (140-400) K/mcL Neutrophils # (1.6-8.9) K/mcL 07/29/17 Range/Units 05:45 WBC 4.4 (4.3-11.1) K/mcL Hgb 9.5 L (11.5-15.4) g/dL Hct 30.1 L (35.3-44.9) % Plt Count 57 L (140-400) K/mcL Neutrophils # 3.4 (1.6-8.9) K/mcL BMP 07/28/17 07/29/17 08:52 05:45 Sodium 136 139 Potassium 5.1 H 4.4 Chloride 99 101 Carbon Dioxide 21 24 BUN 70 H D 42 H D Creatinine 7.40 H 5.00 H Glucose 156 H 150 H Calcium 7.3 L 7.3 L - ABG Interpretation ABG results: PT/INR, D-dimer PT 13.3 Seconds (9.4-12.1) H 07/29/17 01:47 - Impressions Impressions Chest CT 07/28/17 08:00 IMPRESSION: 1. New right upper lobe peribronchovascular ground-glass opacities suggestive of an infectious/inflammatory etiology. To a lesser degree, similar finding is seen in the right middle lobe. Recommend CT chest in three months to ensure resolution. 2. Increasing pleural effusions bilaterally compared to exam of June 30, 2017, now with moderate bilateral pleural effusions and compressive atelectasis of the left lower lobe and right lower lobe. 3. Mild cardiomegaly. 4. Coronary artery disease. 5. Prominent mediastinal lymph nodes, probably reactive in the setting of associated pulmonary findings. D/ / 07/28/2017 08:37:01 Waqar Kevin MD / serenity Interpreting Provider: Waqar Kevin MD - VTE Documentation of Mechanical Device: Intermittent pneumatic compression device Consult Discharge Plan - Plan Referrals: Na Johansen CNP [Primary Care Provider] - 08/06/17 8:15 am (Please follow up with Na Johansen) Jeevan Ramirez MD [Partnered Physician] - (in 3 weeks-call for appointment)
[2017-07-29] MEDS: Budesonide/Formoterol 160/4.5 MDI IH SCH ×2 (07:41→19:44)
[2017-07-29] MEDS: Renal Vitamin 1 MG CAPSULE PO SCH (07:42)
[2017-07-29] MEDS: Lactobacillus 1 EACH CAP.SPRINK PO SCH ×2 (07:42→21:20)
[2017-07-29] MEDS: Nicotine 21 MG PATCH.TD24 TD SCH (07:42)
[2017-07-29] MEDS: Diltiazem CD (24hr) 120 MG CAPSULE PO SCH (07:42)
[2017-07-29] MEDS: *HR* Promethazine 25 MG/ML VIAL IVP PRN ×2 (07:42→21:20)
[2017-07-29] MEDS: predniSONE 20 MG TABLET PO SCH (07:42)
--- NOTE | 2017-07-29 10:51 | Nephrology Progress Note ---
Date of Encounter: 07/29/17 Time of Encounter: 10:49 - Assessment and Plan (1) ESRD (end stage renal disease) on dialysis Current Visit: Yes Status: Chronic Plan for HD tomorrow Avoid nephrotoxins if possible (2) Hypocalcemia Current Visit: Yes Status: Acute Ca+ 7.3-stable Continue ergocalciferol Continue Calcitriol for elevated PTH (3) Anemia in chronic kidney disease Current Visit: Yes Status: Chronic Hgb 9.5 Goal 10-11 Transfuse per parameters Continue Aranesp Qualifiers: Chronic kidney disease stage: on chronic dialysis Qualified Code(s): N18.6 - End stage renal disease; D63.1 - Anemia in chronic kidney disease; Z99.2 - Dependence on renal dialysis (4) Ileostomy in place Current Visit: No Status: Chronic per primary team/GI team Awaiting GI consult Subjective Principal diagnosis: ESRD on dialysis, hypocalcemia Interval history: Patient seen and examined. States her legs are hurting really bad. Objective - Vital Signs Vital signs: Vital Signs Temp Pulse Resp BP Pulse Ox 07/29/17 10:47 98.1 F 81 17 126/69 94 07/29/17 07:42 16 97 07/29/17 07:31 97.7 F 83 17 129/66 95 07/29/17 04:53 98.6 F 82 18 131/71 96 07/29/17 03:45 97.9 F 82 16 135/70 95 07/29/17 02:20 98.3 F 89 24 132/68 97 07/29/17 02:14 98.3 F 86 20 124/69 96 07/29/17 01:59 98.1 F 85 16 129/61 96 07/28/17 23:48 98.8 F 84 16 127/64 95 07/28/17 20:20 16 100 07/28/17 20:09 15 95 07/28/17 19:30 98.3 F 89 19 131/70 93 07/28/17 16:51 98.2 F 91 17 129/69 95 07/28/17 15:15 97.7 F 15 130/72 07/28/17 15:00 128/64 07/28/17 14:45 119/57 07/28/17 14:30 123/61 07/28/17 14:15 97.7 F 107 15 129/68 07/28/17 14:03 97.7 F 84 16 127/62 07/28/17 14:00 123/59 07/28/17 13:48 98.0 F 79 16 128/58 07/28/17 13:45 113/56 07/28/17 13:40 98.2 F 75 16 124/64 07/28/17 13:30 108/50 07/28/17 13:28 97.9 F 77 15 113/56 07/28/17 13:15 124/65 07/28/17 13:13 97.7 F 77 15 107/55 07/28/17 13:00 115/62 07/28/17 12:45 117/62 07/28/17 12:30 124/63 07/28/17 12:15 129/66 07/28/17 12:00 97.6 F 15 139/69 07/28/17 11:12 16 93 Intake and Output 07/28/17 07/29/17 07/29/17 23:59 07:59 15:59 Intake Total 120 / 120 330 / 330 120 / 120 Output Total 550 / 550 0 / 0 Balance -430 / -430 330 / 330 120 / 120 Intake: Oral 120 / 120 30 / 30 120 / 120 Blood Product 300 / 300 Rbcs Leuko Poor As-1 Unit 300 / 300 [id number] Output: Urine 50 / 50 0 / 0 Stool 500 / 500 Other: Meal Dinner Breakfast Percent of Meal Consumed 100% 100% Stool Size Large Moderate Stool Consistency soft Stool Color Brown Brown Weight 72 kg Patient Weight 07/29/17 23:59 Weight 72 kg - General Appearance General appearance: Present: cachectic, chronically ill, frail EENT: Present: ATNC, mucous membranes moist, hearing intact, vision intact Neck: Present: supple Respiratory: Present: wheezing, course breath sounds, rhonchi Cardiology: Present: edema, normal S1, normal S2 Dialysis Vascular Access: Arteriovenous Graft Gastrointestinal: Present: no guarding Integumentary: Present: warm and dry Neurologic: Present: alert and oriented x3 Psychiatric: Present: mood/affect appropriate, cooperative - Lab 07/29/17 05:45 07/29/17 05:45 Most recent lab results Calcium 7.3 mg/dL (8.6-10.8) L 07/29/17 05:45 Phosphorus 8.1 mg/dL (2.3-4.7) H 07/22/17 03:40 Magnesium 1.6 mg/dL (1.6-2.6) 07/24/17 03:01 - VTE Documentation of Mechanical Device: Intermittent pneumatic compression device Consult Discharge Plan - Plan Referrals: Na Johansen CNP [Primary Care Provider] - 08/06/17 8:15 am (Please follow up with Na Johansen) Jeevan Ramirez MD [Partnered Physician] - (in 3 weeks-call for appointment)
--- NOTE | 2017-07-29 10:56 | Gastroenterology Consult Note ---
Date of Encounter: 07/29/17 Time of Encounter: 10:10 - Time Spent With Patient Total time spent is greater than 50% in coordination of care (as documented) at patient's floor/unit and/or counseling patient: GI History of Present Illness - Data of Consult Patient: new to practice Consult date: 07/29/17 Requesting Physician: Jim Burdick MD - Consult Narrative History of present illness: Ms. Parra is a 71 year old female with PMHx of asthma, COPD, GERD, HTN, renal disease, ileostomy, urostomy, end stage renal disease on hemodialysis presented to the ED with hematuria, vomiting, shortness of breath, chest pain after missing one dialysis treatment. Patient developed acute respiratory distress likely secondary to fluid overload. Patient has ileostomy in place and mild blood tinge discharge was noted in the ileostomy. On admission Hgb 8.5, on 07/24 Hgb 6.9, this morning Hgb 9.5. She has received 9 units PRBC and 4 units of Plts since admission. Procedures: None NSAIDs: None Anticoagulation: None A/P 1. Anemia: Continue to monitor CBC and transfuse PRBC as needed. Pt has received 9 units PRBC and 4 units of Plts since admission. Consider EGD and/or colonoscopy tomorrow. Clear liquid diet today, no red or purple. NPO at midnight. If unable tolerate NuLytely please use MiraLAX prep. If not clear by 6 AM, give 2 tap water enemas. Will discuss with Dr. Albert. 2. Ileostomy in place: Pt with blood tinged drainage in ileostomy. Plan as above. 3. ESRD Past Med Surg Social Fam HX - Past Medical History Medical history: asthma, COPD, GERD, hypertension, renal disease, thyroid disease Psychiatric history: no psych history - Past Surgical History Surgical History: appendectomy, cholecystectomy, colostomy, hysterectomy, other - Social History Smoking Status: Former smoker Smokeless Tobacco Status: No Alcohol use: none Drug use: none - Family History Mother Adopted: No Living Status: Hx Family Cardiac Disorders: Yes ([place]/ Stroke) Hx Family Respiratory Disorders: No Hx Family Cancer: No Hx Family GI Disorders: No Hx Family Endocrine Disorder: No Hx Family Neuromuscular Disorders: No Hx Family Neurologic Disorders: No Hx Family HEENT Disorders: No Hx Family Autoimmune Disorders: No Father Adopted: No Living Status: Hx Family Cardiac Disorders: Yes ([place]) Hx Family Respiratory Disorders: No Hx Family Cancer: No Hx Family GI Disorders: No Hx Family Endocrine Disorder: No Hx Family Neuromuscular Disorders: No Hx Family Neurologic Disorders: No Hx Family HEENT Disorders: No Hx Family Autoimmune Disorders: No Brother Living Status: Still Living Hx Family Cardiac Disorders: Yes Hx Family Respiratory Disorders: No Hx Family Endocrine Disorder: Yes - Gastrointestinal Gastrointestinal: Present: as per HPI - Constitutional Constitutional: as per HPI - EENT Eyes: as per HPI Ears: Present: as per HPI Nose, mouth and throat: Present: as per HPI - Cardiovascular Cardiovascular ROS: Present: as per HPI - Respiratory Respiratory IM: Present: as per HPI - Genitourinary Genitourinary: Absent: change in color, Urinary frequency - Neurological ROS Neurological GI: Present: as per HPI - Hematologic/Lymphatic Hematologic/Lymphatic pediatric: Present: as per HPI - Musculoskeletal Musculoskeletal ROS GI: Present: as per HPI - Integumentary Integumentary GI: Present: as per HPI - Psychiatric ROS Psychiatric GI: Present: as per HPI - Endocrine Endocrine IM: Present: as per HPI - Constitutional Vitals: Temp Pulse Resp BP Pulse Ox 98.1 F 81 17 126/69 94 07/29/17 10:47 07/29/17 10:47 07/29/17 10:47 07/29/17 10:47 07/29/17 10:47 General appearance: Present: cooperative, A&O X 3, no acute distress, answers questions appropriately - Head Head exam: Present: atraumatic, normocephalic - Eye Eye exam: Present: normal appearance, sclera anicteric - ENT ENT exam: Present: mucous membranes moist - Neck Neck exam general surgery: Present: normal inspection, trachea midline - Respiratory Respiratory exam: Present: decreased breath sounds, rhonchi - Cardiovascular Cardiovascular exam: Present: RRR, +S1, +S2 - GI/Abdominal GI/Abdominal exam: Present: soft, no peritoneal signs. Absent: distended, firm , guarding, tenderness - Rectal Rectal exam: Present: deferred - Extremities Exam Extremities exam: Present: warm - Neurological Exam Neurological exam: Present: no focal deficits - Psychiatric Psychiatric exam: Present: normal affect, normal mood - Skin Skin exam: Present: dry, warm Additional comments: Diffuse ecchymosis over chest and upper extremities. Results - Labs CBC & Chem 7: 07/29/17 05:45 07/29/17 05:45 Labs: Last Result Calcium 7.3 mg/dL (8.6-10.8) L 07/29/17 05:45 Iron 44 mcg/dL (50-170) L 07/18/17 04:29 % Saturation 18 % (15-50) 07/18/17 04:29 Transferrin 171 mg/dL (180-382) L 07/18/17 04:29 Troponin I 0.02 ng/mL (0-0.03) 07/22/17 04:45 Entire Visit Hgb 9.5 g/dL (11.5-15.4) L 07/29/17 05:45 Hct 30.1 % (35.3-44.9) L 07/29/17 05:45 Haptoglobin 188 mg/dL (30-200) 07/23/17 11:45 PT 13.3 Seconds (9.4-12.1) H 07/29/17 01:47 Total Bilirubin 0.8 mg/dL (0.2-1.2) 07/23/17 11:45 - ABG ABG results: PT/INR, D-dimer PT 13.3 Seconds (9.4-12.1) H 07/29/17 01:47 Consult Discharge Plan - Plan Referrals: Na Johansen CNP [Primary Care Provider] - 08/06/17 8:15 am (Please follow up with Na Johansen) Jeevan Ramirez MD [Partnered Physician] - (in 3 weeks-call for appointment)
[2017-07-29] MEDS: Benzonatate 100 MG CAPSULE PO PRN ×2 (13:46→21:20)
[2017-07-29] MEDS ORDERED: Cyanocobalamin (B-12) 1,000 MCG/ML VIAL IM ONE (13:53)
[2017-07-29] MEDS: Albuterol 2.5 MG/3 ML NEBULIZER IH PRN (16:36)
[2017-07-29] MEDS: Famotidine 20 MG TABLET PO SCH (21:20)
--- NOTE | 2017-07-29 22:25 | Internal Med Progress Note ---
Date of Encounter: 07/29/17 Time of Encounter: 09:00 - Assessment and plan (1) Acute blood loss anemia Current Visit: Yes Status: Acute Assessment and plan: -So far has received 9 units PRBCs. Hemoglobin improved and she is hemodynamically stable. GI following, possible EGD/Colonoscopy tomorrow. (2) Acute respiratory distress Current Visit: Yes Status: Acute Assessment and plan: Secondary to fluid overload, she is breathing slightly better per patient. Nephrology following with fluid status, currently dialysis per schedule m/w/f Consider 2D echo. (3) Atrial fibrillation with rapid ventricular response Current Visit: Yes Status: Acute Assessment and plan: Continue rate control with Cardizem. Anti-coagulation held (4) Bilateral leg pain Current Visit: Yes Status: Acute Assessment and plan: Likely edema and octreotide abnormality contributing. DVT studies are negative. Continue to monitor. (5) Peripheral edema Current Visit: Yes Status: Acute Assessment and plan: from ESRD causing fluid overload. (6) ESRD (end stage renal disease) Current Visit: No Status: Chronic Assessment and plan: dialysis per home schedule (7) Ileostomy in place Current Visit: No Status: Chronic Assessment and plan: Stable, surgery following. - Subjective Interval history: SOB improved after dialysis. Ileostomy does not have any gross bloody discharge currently. Denies N/V, hematuria. - Constitutional Vitals: Temp Pulse Resp BP Pulse Ox 97.7 F 78 16 121/65 95 07/29/17 20:02 07/29/17 20:02 07/29/17 20:02 07/29/17 20:02 07/29/17 20:02 General appearance: Present: A&O X 3, no acute distress, loss of weight - Head Head exam: Present: atraumatic, normocephalic - Respiratory Respiratory exam: Present: decreased breath sounds, rales, wheezes - Cardiovascular Cardiovascular exam: Present: RRR, +S1, +S2. Absent: diastolic murmur, gallop, rubs, systolic murmur - Extremities Exam Extremities exam: Present: pedal edema Internal Medicine: Result - Labs CBC & Chem 7: 07/29/17 05:45 07/29/17 05:45 Labs: Short CBC 07/29/17 07/29/17 Range/Units 01:47 05:45 WBC 4.4 (4.3-11.1) K/mcL Hgb 8.6 L 9.5 L (11.5-15.4) g/dL Hct 27.2 L 30.1 L (35.3-44.9) % Plt Count 57 L (140-400) K/mcL Neutrophils # 3.4 (1.6-8.9) K/mcL BMP 07/29/17 05:45 Sodium 139 Potassium 4.4 Chloride 101 Carbon Dioxide 24 BUN 42 H D Creatinine 5.00 H Glucose 150 H Calcium 7.3 L - ABG Interpretation ABG results: PT/INR, D-dimer PT 13.3 Seconds (9.4-12.1) H 07/29/17 01:47 - Impressions Impressions Chest CT 07/28/17 08:00 IMPRESSION: 1. New right upper lobe peribronchovascular ground-glass opacities suggestive of an infectious/inflammatory etiology. To a lesser degree, similar finding is seen in the right middle lobe. Recommend CT chest in three months to ensure resolution. 2. Increasing pleural effusions bilaterally compared to exam of June 30, 2017, now with moderate bilateral pleural effusions and compressive atelectasis of the left lower lobe and right lower lobe. 3. Mild cardiomegaly. 4. Coronary artery disease. 5. Prominent mediastinal lymph nodes, probably reactive in the setting of associated pulmonary findings. D/ / 07/28/2017 08:37:01 Waqar Kevin MD / [facility] Interpreting Provider: Waqar Kevin MD - VTE Documentation of Mechanical Device: Intermittent pneumatic compression device Consult Discharge Plan - Plan Referrals: Na Johansen CNP [Primary Care Provider] - 08/06/17 8:15 am (Please follow up with Na Johansen) Jeevan Ramirez MD [Partnered Physician] - (in 3 weeks-call for appointment)
[2017-07-30] MEDS: *HR* HYDROcodone/Acet 5/325 mg TABLET PO PRN ×3 (01:59→15:28)
[2017-07-30 05:53] LABS: Hemoglobin 9.5 g/dL (11.5-15.4); Mean Platelet Volume 11.9 fL (9.4-12.4); Red Cell Distribution Width 17.1 % (11.5-14.5)
[2017-07-30 05:55] LABS: Hematocrit 30.2 % (35.3-44.9); Immature Granulocytes % 0.5 % (0-4); Immature Platelets 5.7 % (1.1-6.1); Lymphocytes # 0.8 K/mcL (0.6-4.6); Lymphocytes % 18.6 %; Mean Corpuscular HGB Conc 31.5 g/dL (31.6-35.5); Mean Corpuscular Hemoglobin 28.6 pg (28.0-33.3); Monocytes # 0.3 K/mcL (0.0-1.3); Monocytes % 6.4 %; Red Blood Count 3.32 M/mcL (3.82-4.97); Segmented Neutrophils % 73.5 %
[2017-07-30 06:04] LABS: Platelet Count 55 K/mcL (140-400)
[2017-07-30 06:14] LABS: Calcium 7.3 mg/dL (8.6-10.8); Potassium 4.7 mEq/L (3.5-4.5)
[2017-07-30] MEDS: Lactobacillus 1 EACH CAP.SPRINK PO SCH ×2 (07:53→21:58)
[2017-07-30] MEDS: Renal Vitamin 1 MG CAPSULE PO SCH (07:53)
[2017-07-30] MEDS: Nicotine 21 MG PATCH.TD24 TD SCH (07:54)
[2017-07-30] MEDS: predniSONE 20 MG TABLET PO SCH (07:54)
[2017-07-30] MEDS ORDERED: 0.9 % Sodium Chloride 250 ML IVC PRN (07:58)
[2017-07-30] MEDS ORDERED: 0.9 % Sodium Chloride 1,000 ML PRIME SCH (08:00)
[2017-07-30] MEDS: Ondansetron 4 MG/2 ML VIAL IVP PRN ×2 (08:01→22:03)
[2017-07-30] MEDS ORDERED: 0.9 % Sodium Chloride 2,000 ML ONE (08:29)
[2017-07-30] MEDS: Budesonide/Formoterol 160/4.5 MDI IH SCH ×2 (10:28→22:16)
[2017-07-30] MEDS: Diltiazem CD (24hr) 120 MG CAPSULE PO SCH (11:20)
[2017-07-30] MEDS: *HR* Morphine 2 MG/ML SYRINGE IVP PRN ×2 (11:20→21:58)
[2017-07-30] MEDS: *HR* Metoprolol 5 MG/5 ML VIAL IVP PRN (13:30)
[2017-07-30] MEDS ORDERED: *HR* Metoprolol 5 MG/5 ML VIAL IVP ONE (14:05)
--- NOTE | 2017-07-30 17:56 | Nephrology Progress Note ---
Date of Encounter: 07/30/17 Time of Encounter: 11:40 - Assessment and Plan (1) ESRD (end stage renal disease) on dialysis Current Visit: Yes Status: Chronic Continue HD today with no heparin and minima UF as tolerated Potassium slightly elevated at 4.7, will be addressed with HD (2) Problem with dialysis access Current Visit: Yes Status: Acute s/p surgical intervention last week with successful cannulation friday and today Qualifiers: Encounter type: subsequent encounter Qualified Code(s): T82.898D - Other specified complication of vascular prosthetic devices, implants and grafts, subsequent encounter (3) Anemia in chronic kidney disease Current Visit: Yes Status: Chronic Hgb improved after transfusion on friday during HD at 9.5 GI workup today planned Continue aranesp Qualifiers: Chronic kidney disease stage: on chronic dialysis Qualified Code(s): N18.6 - End stage renal disease; D63.1 - Anemia in chronic kidney disease; Z99.2 - Dependence on renal dialysis (4) Hypocalcemia Current Visit: No Status: Acute Calcium remains low as of yesterday, but slightly improved likely corrected for low albumin even better Continue ergocalciferol for now PTH elevated as a result, continue calcitriol during hospital stay (will switch back to iv hectorol on discharge during HD treatments) Subjective Principal diagnosis: ESRD on dialysis, hypocalcemia Interval history: Pt seen and examined on HD Objective - Vital Signs Vital signs: Vital Signs Temp Pulse Resp BP Pulse Ox 07/30/17 16:14 98.3 F 86 17 119/52 99 07/30/17 15:15 98 126/72 07/30/17 14:14 102/56 07/30/17 13:25 97.7 F 18 105/58 07/30/17 13:20 126/72 07/30/17 12:55 108/57 07/30/17 12:25 108/58 07/30/17 11:55 111/55 07/30/17 11:25 109/68 07/30/17 10:55 102/57 07/30/17 10:25 110/62 07/30/17 10:15 101/55 07/30/17 09:55 122/61 07/30/17 09:25 97.2 F L 18 127/70 07/30/17 06:49 98.1 F 88 17 144/70 93 07/30/17 04:26 98.3 F 81 16 145/74 96 07/30/17 00:09 97.2 F L 87 16 151/67 97 07/29/17 20:02 97.7 F 78 16 121/65 95 07/29/17 19:45 16 98 Intake and Output 07/30/17 07/30/17 07/30/17 07:59 15:59 23:59 Intake Total 840 / 840 60 / 60 Output Total 2600 / 2600 Balance -1760 / -1760 60 / 60 Intake: Oral 240 / 240 60 / 60 Intake, Rinseback and Flushes 600 / 600 Output: Urine 0 / 0 Total Dialysis (HD) Output 2600 / 2600 Other: Meal Breakfast Dinner Percent of Meal Consumed 100% 70% Weight 72.3 kg Hemodialysis Net Fluid Removed 2000 (mL) Patient Weight 07/30/17 23:59 Weight 72.3 kg Respiratory: Present: course breath sounds - Lab 07/30/17 05:40 07/30/17 05:40 Most recent lab results Calcium 7.3 mg/dL (8.6-10.8) L 07/30/17 05:40 Phosphorus 8.1 mg/dL (2.3-4.7) H 07/22/17 03:40 Magnesium 1.6 mg/dL (1.6-2.6) 07/24/17 03:01 - VTE Documentation of Mechanical Device: Intermittent pneumatic compression device Consult Discharge Plan - Plan Referrals: Na Johansen CNP [Primary Care Provider] - 08/06/17 8:15 am (Please follow up with Na Johansen) Jeevan Ramirez MD [Partnered Physician] - (in 3 weeks-call for appointment)
--- NOTE | 2017-07-30 19:29 | Internal Med Progress Note ---
Date of Encounter: 07/30/17 Time of Encounter: 18:00 - Assessment and plan (1) Acute blood loss anemia Current Visit: Yes Status: Acute Assessment and plan: s/p 9 units PRBCs to date. She is tachycardic but BP normal, possible from change in fluid status and afib. GI following. (2) Acute respiratory distress Current Visit: Yes Status: Acute Assessment and plan: Stable. (3) Atrial fibrillation with rapid ventricular response Current Visit: Yes Status: Acute Assessment and plan: AC continues to be held because of bleeding. Goal HR <110. Will give oral metoprolol tartrate low dose and monitor for change. (4) Peripheral edema Current Visit: Yes Status: Acute (5) ESRD (end stage renal disease) Current Visit: No Status: Chronic Assessment and plan: dialysis M,W,F. Nephrology following. (6) Ileostomy in place Current Visit: No Status: Chronic Assessment and plan: No signs of gross bloody discharge today. - Subjective Interval history: Dyspnea stable. In the afternoon patient became tachycardic post dialysis. Lopressor 5 mg not effective, 2.5 mg given. - Constitutional Vitals: Temp Pulse Resp BP Pulse Ox 98.0 F 82 22 124/57 97 07/30/17 18:57 07/30/17 18:57 07/30/17 18:57 07/30/17 18:57 07/30/17 18:57 General appearance: Present: A&O X 3, no acute distress, loss of weight - Respiratory Respiratory exam: Present: decreased breath sounds, rales. Absent: respiratory distress, wheezes - Cardiovascular Cardiovascular exam: Present: irregular rhythm, tachycardia - Extremities Exam Extremities exam: Present: pedal edema Additional comments: slightly improved since yesterday exam Internal Medicine: Result - Labs CBC & Chem 7: 07/30/17 05:40 07/30/17 05:40 Labs: Short CBC 07/30/17 Range/Units 05:40 WBC 4.1 L (4.3-11.1) K/mcL Hgb 9.5 L (11.5-15.4) g/dL Hct 30.2 L (35.3-44.9) % Plt Count 55 L (140-400) K/mcL Neutrophils # 3.0 (1.6-8.9) K/mcL BMP 07/30/17 05:40 Sodium 139 Potassium 4.7 H Chloride 101 Carbon Dioxide 24 BUN 57 H D Creatinine 6.64 H Glucose 115 H Calcium 7.3 L - ABG Interpretation ABG results: PT/INR, D-dimer PT 13.3 Seconds (9.4-12.1) H 07/29/17 01:47 - Impressions Impressions Chest CT 07/28/17 08:00 IMPRESSION: 1. New right upper lobe peribronchovascular ground-glass opacities suggestive of an infectious/inflammatory etiology. To a lesser degree, similar finding is seen in the right middle lobe. Recommend CT chest in three months to ensure resolution. 2. Increasing pleural effusions bilaterally compared to exam of June 30, 2017, now with moderate bilateral pleural effusions and compressive atelectasis of the left lower lobe and right lower lobe. 3. Mild cardiomegaly. 4. Coronary artery disease. 5. Prominent mediastinal lymph nodes, probably reactive in the setting of associated pulmonary findings. D/ / 07/28/2017 08:37:01 Waqar Kevin MD / [facility] Interpreting Provider: Waqar Kevin MD - VTE Documentation of Mechanical Device: Intermittent pneumatic compression device Consult Discharge Plan - Plan Referrals: Na Johansen CNP [Primary Care Provider] - 08/06/17 8:15 am (Please follow up with Na Johansen) Jeevan Ramirez MD [Partnered Physician] - (in 3 weeks-call for appointment)
[2017-07-30] MEDS: Famotidine 20 MG TABLET PO SCH (21:58)
[2017-07-31] MEDS: *HR* Morphine 2 MG/ML SYRINGE IVP PRN ×4 (02:31→22:10)
[2017-07-31] MEDS: Nicotine 21 MG PATCH.TD24 TD SCH (08:41)
[2017-07-31] MEDS: Diltiazem CD (24hr) 120 MG CAPSULE PO SCH (08:41)
[2017-07-31] MEDS: predniSONE 20 MG TABLET PO SCH (08:41)
[2017-07-31] MEDS: Lactobacillus 1 EACH CAP.SPRINK PO SCH ×2 (08:41→20:18)
[2017-07-31] MEDS: Renal Vitamin 1 MG CAPSULE PO SCH (08:41)
[2017-07-31] MEDS: Ondansetron 4 MG/2 ML VIAL IVP PRN (08:45)
[2017-07-31] MEDS ORDERED: Acetylcysteine 10% 2 ML INHSOL IH ONE (09:39)
--- NOTE | 2017-07-31 09:42 | Nephrology Progress Note ---
Date of Encounter: 07/31/17 Time of Encounter: 09:40 - Assessment and Plan (1) ESRD (end stage renal disease) on dialysis Current Visit: Yes Status: Chronic Plan for HD tomorrow; continue to hold heparin and minimal UF as tolerated Avoid nephrotoxins if possible (2) Hypocalcemia Current Visit: Yes Status: Acute Ca+ 7.3-stable Continue ergocalciferol Continue Calcitriol for elevated PTH (3) Anemia in chronic kidney disease Current Visit: Yes Status: Chronic Hgb 9.5; s/p multiple transfusions Goal 10-11 Transfuse per parameters Continue Aranesp GI team following Qualifiers: Chronic kidney disease stage: on chronic dialysis Qualified Code(s): N18.6 - End stage renal disease; D63.1 - Anemia in chronic kidney disease; Z99.2 - Dependence on renal dialysis (4) Ileostomy in place Current Visit: No Status: Chronic per primary team/GI team Subjective Principal diagnosis: ESRD on dialysis, hypocalcemia Interval history: Patient seen and examined. Opens her eyes briefly but does not answer my questions. Objective - Vital Signs Vital signs: Vital Signs Temp Pulse Resp BP Pulse Ox 07/31/17 08:48 115/66 07/31/17 06:52 97.5 F L 78 14 115/66 100 07/31/17 04:00 97.5 F L 81 20 118/57 95 07/30/17 23:06 97.6 F 76 18 125/57 100 07/30/17 22:16 16 95 07/30/17 18:57 98.0 F 82 22 124/57 97 07/30/17 16:14 98.3 F 86 17 119/52 99 07/30/17 15:15 98 126/72 07/30/17 14:14 102/56 07/30/17 13:25 97.7 F 18 105/58 07/30/17 13:20 126/72 07/30/17 12:55 108/57 07/30/17 12:25 108/58 07/30/17 11:55 111/55 07/30/17 11:25 109/68 07/30/17 10:55 102/57 07/30/17 10:25 110/62 07/30/17 10:15 101/55 07/30/17 09:55 122/61 Intake and Output 09/07/31/17 07/31/17 23:59 07:59 15:59 Intake Total 60 / 60 30 / 30 Output Total 0 / 0 0 / 0 Balance 60 / 60 30 / 30 Intake: Oral 60 / 60 30 / 30 Output: Urine 0 / 0 0 / 0 Other: Meal Dinner npo Percent of Meal Consumed 70% # Bowel Movements 0 Weight 70.398 kg Patient Weight 07/31/17 23:59 Weight 70.398 kg - General Appearance General appearance: Present: cachectic, chronically ill, frail EENT: Present: ATNC Neck: Present: supple Respiratory: Present: course breath sounds, rhonchi Cardiology: Present: no edema, irregular rhythm Dialysis Vascular Access: Arteriovenous Fistula Gastrointestinal: Present: no tenderness, no guarding Integumentary: Present: warm and dry - Lab 07/30/17 05:40 07/30/17 05:40 Most recent lab results Calcium 7.3 mg/dL (8.6-10.8) L 07/30/17 05:40 Phosphorus 8.1 mg/dL (2.3-4.7) H 07/22/17 03:40 Magnesium 1.6 mg/dL (1.6-2.6) 07/24/17 03:01 - VTE Documentation of Mechanical Device: Intermittent pneumatic compression device Consult Discharge Plan - Plan Referrals: Na Johansen CNP [Primary Care Provider] - 08/06/17 8:15 am (Please follow up with Na Johansen) Jeevan Ramirez MD [Partnered Physician] - (in 3 weeks-call for appointment)
[2017-07-31] MEDS ORDERED: Polyethylene Glycol 3350 255 GM POWDER PO ONE (10:17)
[2017-07-31] MEDS ORDERED: SODIUM CHLORIDE/NAHCO3/KCL/PEG 4,000 ML SOLN.RECON PO ONE (10:30)
[2017-07-31] MEDS: Albuterol 2.5 MG/3 ML NEBULIZER IH PRN (10:49)
[2017-07-31] MEDS: Budesonide/Formoterol 160/4.5 MDI IH SCH ×2 (10:50→20:03)
--- NOTE | 2017-07-31 19:05 | Internal Med Progress Note ---
Date of Encounter: 07/31/17 Time of Encounter: 11:30 - Assessment and plan (1) Acute respiratory distress Current Visit: Yes Status: Acute Assessment and plan: After dialysis she does not appear to be fluid overloaded. She appears to have excessive mucus buildup in upper airways. She braces because of chest wall pain , likely chostochondritis which is promoting atelectasis. We will do incentive spirometry Q1H as tolerated. Also will add mucomyst to promote breakup of phlegm. Will discuss with nephrology if her fluid status is near baseline. Tylenol may be best option for chest wall pain as NSAIDs are contraindicated. Would consider morphine cautiously as this could precipitate respiratory depression. (2) Atrial fibrillation with rapid ventricular response Current Visit: Yes Status: Acute Assessment and plan: Goal HR <110. Currently stable, improved from yesterday episodes of tachycardia , which happens with her with dialysis. (3) Acute blood loss anemia Current Visit: Yes Status: Resolved Assessment and plan: Hemoglobin is stable. Transfusion threshold in ESRD 10-11. Currently runs around 9.5. Will recheck in H&H in AM, if lower may consider PRBC. (4) ESRD (end stage renal disease) Current Visit: No Status: Chronic (5) Ileostomy in place Current Visit: No Status: Chronic Assessment and plan: No acute issues. Absent blood. - Subjective Interval history: No acute events overnight but breathing is not improving. Feels a constant need to cough which is non-productive. Denies fevers/chills, chest pain, n/v. - Constitutional Vitals: Temp Pulse Resp BP Pulse Ox 97.9 F 77 16 129/74 95 07/31/17 16:51 07/31/17 16:51 07/31/17 16:51 07/31/17 16:51 07/31/17 16:51 General appearance: Present: A&O X 3, no acute distress, loss of weight - Respiratory Respiratory exam: Present: chest wall tenderness, decreased breath sounds, rales , wheezes. Absent: accessory muscle use Additional comments: easily heard transmitted upper airway sounds. - Cardiovascular Cardiovascular exam: Present: RRR, +S1, +S2. Absent: diastolic murmur, gallop, rubs, systolic murmur - Extremities Exam Extremities exam: Present: warm, radial pulses palpable and symmetrical. Absent : calf tenderness, cyanotic, pedal edema Internal Medicine: Result - Labs CBC & Chem 7: 07/30/17 05:40 07/30/17 05:40 - ABG Interpretation ABG results: PT/INR, D-dimer PT 13.3 Seconds (9.4-12.1) H 07/29/17 01:47 - VTE Documentation of Mechanical Device: Intermittent pneumatic compression device Consult Discharge Plan - Plan Referrals: Na Johansen CNP [Primary Care Provider] - 08/06/17 8:15 am (Please follow up with Na Johansen) Jevean Ramirez MD [Partnered Physician] - (in 3 weeks-call for appointment)
[2017-07-31] MEDS: Famotidine 20 MG TABLET PO SCH (20:18)
[2017-08-01 04:20] LABS: Eosinophils % 0.8 %; Hematocrit 28.7 % (35.3-44.9); Hemoglobin 9.1 g/dL (11.5-15.4); Immature Granulocytes % 0.3 % (0-4); Lymphocytes % 17.4 %; Mean Corpuscular HGB Conc 31.7 g/dL (31.6-35.5); Mean Corpuscular Hemoglobin 29.2 pg (28.0-33.3); Mean Platelet Volume 12.2 fL (9.4-12.4); Monocytes # 0.3 K/mcL (0.0-1.3); Monocytes % 7.2 %; Neutrophils # 2.8 K/mcL (1.6-8.9); Red Blood Count 3.12 M/mcL (3.82-4.97); Red Cell Distribution Width 16.4 % (11.5-14.5); Segmented Neutrophils % 74.3 %
[2017-08-01 04:21] LABS: Lymphocytes # 0.6 K/mcL (0.6-4.6); Platelet Count 50 K/mcL (140-400)
[2017-08-01 04:35] LABS: Calcium 7.3 mg/dL (8.6-10.8); Potassium 4.3 mEq/L (3.5-4.5)
[2017-08-01] MEDS: *HR* Morphine 2 MG/ML SYRINGE IVP PRN ×3 (06:26→22:10)
[2017-08-01] MEDS ORDERED: 0.9 % Sodium Chloride 250 ML IVC PRN (07:16)
--- NOTE | 2017-08-01 07:25 | Anesthesia Evaluation PreOp ---
Date of Encounter: 08/01/17 Time of Encounter: 07:23 - Past History Planned Operation: Push Enteroscopy Cardiac History: Denies any Significant Hx, HTN Pulmonary History: Smoker, Asthma, COPD Other Medical History: Renal, Thyroid (Hypothyroid), GERD Anesthesia History: No Prior Anesthetic Complications, Past Anesthesia (Appy, GB , SAUL, Col) : No Alcohol Use: none Drug use: none Medications and Allergies Amitriptyline [Elavil] 50 mg PO HS 09/19/15 [History] Cholecalciferol (Vitamin D3) [Vitamin D3] 5,000 unit PO DAILY #0 09/19/15 [ History] Ranitidine HCl [Zantac] 150 mg PO HS 09/19/15 [History] Cyanocobalamin (B-12) [Vitamin B12] 1,000 mcg IM QMONTH 02/21/17 [History] Levothyroxine Sodium [Synthroid] 300 mcg PO DAILY 02/21/17 [History] Mometasone/Formoterol [Dulera 100 Mcg/5 Mcg Inhaler] 2 puff IH BID 02/21/17 [ History] Lactobacillus [Culturelle] 1 each PO BID #60 cap.sprink 03/10/17 [Rx] Albuterol Neb [Proventil Neb] 2.5 mg IH Q6H PRN 06/30/17 [History] Lidocaine/Prilocaine CREAM [Emla] 1 appl TP AD PRN 06/30/17 [History] Renal Vitamin [Renal Caps Softgel] 1 mg PO DAILY 06/30/17 [History] Acetaminophen [Tylenol] 650 mg PO Q6HR PRN #20 tab 07/10/17 [Rx] Atorvastatin [Lipitor] 80 mg PO HS #14 tab 07/10/17 [Rx] Diltiazem CD (24hr) [Cardizem CD] 120 mg PO DAILY #14 07/10/17 [Rx] Nicotine Patch [Nicoderm] 21 mg TD DAILY #14 07/10/17 [Rx] Ondansetron ODT [Zofran ODT] 4 mg SL Q6HR #20 tab.rapdis 07/10/17 [Rx] levoFLOXacin [Levaquin] 500 mg PO Q48H #6 tablet 07/10/17 [Rx] predniSONE [PredniSONE] 20 mg PO DAILY #5 tab 07/10/17 [Rx] GuaiFENesin ER [Mucinex] 600 mg PO BID PRN 07/16/17 [History] Menthol [[place]] 3.2 mg MM Q4H PRN 07/16/17 [History] 3 Allergy/AdvReac Type Severity Reaction Status Date / Time codeine AdvReac Severe Vomiting Verified 03/06/17 15:22 naproxen [From Naprosyn] AdvReac Severe Vomiting Verified 03/06/17 15:22 - Meds/Allergy Pre-op Review Medications Reviewed: Yes Allergies Reviewed: Yes Beta Blockers on Current Med List: Yes (PRN for Tachycardia) Anesthesia Results - Labs 08/01/17 03:30 08/01/17 03:30 06/30/18 ECHO LVEF 55%. LV function varies with cycle length of AF, but appears normal overall. Normal LV chamber size and function. Mild concentric left ventricular hypertrophy. Atypical septal motion consistent with bundle branch block. Normal right ventricular structure and function. Moderately dilated left atrium. Indeterminate diastolic function. No evidence of pulmonary hypertension. No significant valvular dysfunction. - Imaging EKG: image reviewed (ECG with new incomplete right bundle branch block) Anesthesia Exam O2 Sat Weight 71.214 kg O2 Sat by Pulse Oximetry 93 O2 Sat by Pulse Oximetry 96 O2 Sat by Pulse Oximetry 97 O2 Sat by Pulse Oximetry 95 O2 Sat by Pulse Oximetry 95 O2 Sat by Pulse Oximetry 95 O2 Sat by Pulse Oximetry 94 O2 Sat by Pulse Oximetry 97 Vital Signs Temp Pulse Resp BP Pulse Ox 98.4 F 75 16 154/99 99 07/16/17 06:16 07/16/17 06:16 07/16/17 06:16 07/16/17 06:16 07/16/17 06:16 Vital Signs/O2 Sat, Most Current Temp Pulse Resp BP Pulse Ox 97.4 F L 78 18 130/51 93 08/01/17 06:46 08/01/17 06:46 08/01/17 06:46 08/01/17 06:46 08/01/17 06:46 Height: 5'7'' Weight: 157# NPO (# of Hours): > 8 hrs Pain Scale: 0 Pain Scale Used: Numeric (1 - 10) - HEENT Pupil (Motor): Pupils equal, EOMI Mallampati: II Teeth: Edentulous Denture Type: Upper: Complete, Lower: Complete Oral Opening: Greater than 3 - MOTION PICTURE PRINTER LOC: Oriented MOTION PICTURE PRINTER Motor: Normal RUE, Normal LUE, Normal RLE, Normal LLE, Normal Face MOTION PICTURE PRINTER Sensory: Normal: RUE, LUE, RLE, LLE, Face - Cardiac Rhythm: Regular Murmur: None JVD: No Carotid Bruit: No - Pulmonary Breath Sounds: bilateral Rhonchi Respiratory Effort: Symmetrical Anesthesia Assess/Plan ASA Score: 4 Modified Patricia Scale for Level of Consciousness: Cooperative, oriented, and tranquil Anesthetic Plan: MAC Autologous Blood: Yes Monitoring Plan: Standard Monitors Recovery Plan: Other
[2017-08-01] MEDS ORDERED: 0.9 % Sodium Chloride 1,000 ML PRIME SCH (07:30)
[2017-08-01] MEDS: Acetylcysteine 10% 2 ML INHSOL IH SCH ×4 (08:14→22:28)
[2017-08-01] MEDS ORDERED: Simethicone 40 MG/0.6 ML MLS IR ONE (08:16)
[2017-08-01] MEDS ORDERED: Tetracaine/Benzocaine/Butamben 200MG/SPRAY (100SPY/BOT) MM ONE (08:16)
[2017-08-01] MEDS ORDERED: *HR* Propofol 500 MG/50 ML BOTTLE IVC ONE (09:05)
[2017-08-01] MEDS: Ondansetron 4 MG/2 ML VIAL IVP PRN ×2 (09:35→22:09)
[2017-08-01] MEDS: Lactobacillus 1 EACH CAP.SPRINK PO SCH ×2 (09:35→20:22)
[2017-08-01] MEDS: Renal Vitamin 1 MG CAPSULE PO SCH (09:35)
[2017-08-01] MEDS: Nicotine 21 MG PATCH.TD24 TD SCH (09:41)
[2017-08-01] MEDS: Albuterol 2.5 MG/3 ML NEBULIZER IH PRN ×2 (10:25→22:28)
[2017-08-01] MEDS: Budesonide/Formoterol 160/4.5 MDI IH SCH ×2 (10:26→22:28)
--- NOTE | 2017-08-01 10:33 | Nephrology Progress Note ---
Date of Encounter: 08/01/17 Time of Encounter: 09:35 - Assessment and Plan (1) ESRD (end stage renal disease) on dialysis Current Visit: Yes Status: Chronic HD today (2) Generalized weakness Current Visit: Yes Status: Acute (3) Hypocalcemia Current Visit: Yes Status: Acute Will monitor (4) Peripheral edema Current Visit: Yes Status: Acute Trace and will address with UF while on HD today (5) Acute respiratory distress Current Visit: Yes Status: Acute Ongoing respiratory issues for several weeks now. Has she had or is bronchoscopy indicated? Will defer to the hospitalists Subjective Principal diagnosis: ESRD on dialysis, hypocalcemia Interval history: She reported having a better appetite, ongoing painful cough for several weeks, at least since June. She reported some LE edema too. She did not affirm N/V/D but did report what sounds like pleuritic chest pains that worsen with coughing. Objective - Vital Signs Vital signs: Vital Signs Temp Pulse Resp BP Pulse Ox 08/01/17 09:43 97 08/01/17 09:41 87 18 118/74 97 08/01/17 09:25 82 18 131/74 94 08/01/17 07:30 97.8 F 81 18 131/70 93 08/01/17 06:46 97.4 F L 78 18 130/51 93 08/01/17 04:03 98 F 79 20 126/65 96 07/31/17 23:22 98.0 F 74 18 109/58 97 07/31/17 20:15 98.1 F 77 18 125/61 95 07/31/17 20:04 18 95 07/31/17 16:51 97.9 F 77 16 129/74 95 07/31/17 11:37 98.7 F 88 18 117/64 94 07/31/17 10:55 18 97 Intake and Output 07/31/17 08/01/17 08/01/17 23:59 07:59 15:59 Intake Total 120 / 120 100 / 100 Output Total 0 / 0 Balance 120 / 120 100 / 100 Intake: Oral 120 / 120 100 / 100 Output: Urostomy 0 / 0 Other: Stool Size Smear Small Stool Consistency loose loose liquid soft Stool Color Brown Brown Black Green Weight 71.214 kg Patient Weight 08/01/17 23:59 Weight 71.214 kg - General Appearance General appearance: Present: appears started age, cachectic, chronically ill, frail EENT: Present: ATNC, PERRL Neck: Present: supple Respiratory: Present: wheezing, rales, course breath sounds, rhonchi Cardiology: Present: edema (trace ankle edema b/l), regular rate, regular rhythm , normal S1, normal S2 Dialysis Vascular Access: Arteriovenous Fistula (Left UE with +thrill/bruit) thrill: Yes bruit: Yes Gastrointestinal: Present: normoactive bowel sounds, no tenderness, no guarding Additional Comments: urostomy and ileostomy Integumentary: Present: ecchymotic Neurologic: Present: no focal deficit, no asterixis, alert and oriented x3 Musculoskeletal: Present: no deformities, no clubbing Psychiatric: Present: mood/affect appropriate, cooperative - Lab 08/01/17 03:30 08/01/17 03:30 Most recent lab results Calcium 7.3 mg/dL (8.6-10.8) L 08/01/17 03:30 Phosphorus 8.1 mg/dL (2.3-4.7) H 07/22/17 03:40 Magnesium 1.6 mg/dL (1.6-2.6) 07/24/17 03:01 - VTE Documentation of Mechanical Device: Intermittent pneumatic compression device Consult Discharge Plan - Plan Referrals: Na Johansen CNP [Primary Care Provider] - 08/06/17 8:15 am (Please follow up with Na Johansen) Jeevan Ramirez MD [Partnered Physician] - (in 3 weeks-call for appointment)
--- NOTE | 2017-08-01 13:51 | Internal Med Progress Note ---
Date of Encounter: 08/01/17 Time of Encounter: 13:00 - Assessment and plan (1) Acute respiratory distress Current Visit: Yes Status: Acute (2) Atrial fibrillation with rapid ventricular response Current Visit: Yes Status: Acute (3) Acute blood loss anemia Current Visit: Yes Status: Resolved (4) ESRD (end stage renal disease) Current Visit: No Status: Chronic (5) Ileostomy in place Current Visit: No Status: Chronic - Subjective Interval history: No acute events overnight but breathing is not improving. + chest discomfort. GI to see patient today for endoscopy/colonoscopy. - Constitutional Vitals: Temp Pulse Resp BP Pulse Ox 97.9 F 84 18 127/62 98 08/01/17 10:53 08/01/17 11:21 08/01/17 11:21 08/01/17 11:21 08/01/17 11:21 General appearance: Present: A&O X 3, no acute distress, loss of weight - Head Head exam: Present: atraumatic, normocephalic - Respiratory Respiratory exam: Present: chest wall tenderness, rales. Absent: accessory muscle use, prolonged expiratory phase, respiratory distress, wheezes Additional comments: course breath sounds in upper airway. - Cardiovascular Cardiovascular exam: Present: +S1, +S2, tachycardia (irregular rate and rhythm) . Absent: diastolic murmur, gallop, rubs, systolic murmur - Skin Skin exam: Present: petechiae Additional comments: along chest; unchange from prior exams Internal Medicine: Result - Labs CBC & Chem 7: 08/01/17 03:30 08/01/17 03:30 Labs: Short CBC 08/01/17 Range/Units 03:30 WBC 3.7 L (4.3-11.1) K/mcL Hgb 9.1 L (11.5-15.4) g/dL Hct 28.7 L (35.3-44.9) % Plt Count 50 L (140-400) K/mcL Neutrophils # 2.8 (1.6-8.9) K/mcL BMP 08/01/17 03:30 Sodium 135 L Potassium 4.3 Chloride 98 Carbon Dioxide 24 BUN 47 H D Creatinine 5.79 H Glucose 101 H Calcium 7.3 L - ABG Interpretation ABG results: PT/INR, D-dimer PT 13.3 Seconds (9.4-12.1) H 07/29/17 01:47 - VTE Documentation of Mechanical Device: Intermittent pneumatic compression device Consult Discharge Plan - Plan Referrals: Na Johansen CNP [Primary Care Provider] - 08/06/17 8:15 am (Please follow up with Na Johansen) Jeevan Ramirez MD [Partnered Physician] - (in 3 weeks-call for appointment)
[2017-08-01] MEDS: Diltiazem CD (24hr) 120 MG CAPSULE PO SCH (16:23)
[2017-08-01] MEDS: *HR* Metoprolol 5 MG/5 ML VIAL IVP PRN ×4 (16:30→20:23)
[2017-08-01] MEDS: *HR* Promethazine 25 MG/ML VIAL IVP PRN (16:39)
[2017-08-01] MEDS: Famotidine 20 MG TABLET PO SCH (20:22)
[2017-08-02] MEDS ORDERED: 0.9 % Sodium Chloride 250 ML ONE (00:18)
[2017-08-02] MEDS: 0.9 % Sodium Chloride 250 ML IVC PRN ×3 (00:19→10:29)
[2017-08-02] MEDS: *HR* Metoprolol 5 MG/5 ML VIAL IVP PRN ×2 (01:15→05:55)
[2017-08-02] MEDS: Acetylcysteine 10% 2 ML INHSOL IH SCH ×4 (04:24→21:22)
[2017-08-02 04:54] LABS: Eosinophils % 0.6 %; Hemoglobin 9.3 g/dL (11.5-15.4); Immature Granulocytes % 0.6 % (0-4)
[2017-08-02 04:56] LABS: Hematocrit 29.6 % (35.3-44.9); Immature Platelets 6.2 % (1.1-6.1); Lymphocytes # 0.5 K/mcL (0.6-4.6); Lymphocytes % 15.5 %; Mean Corpuscular HGB Conc 31.4 g/dL (31.6-35.5); Mean Corpuscular Volume 92.2 fL (83.0-100.0); Monocytes # 0.2 K/mcL (0.0-1.3); Monocytes % 6.4 %; Neutrophils # 2.6 K/mcL (1.6-8.9); Platelet Count 51 K/mcL (140-400); Red Blood Count 3.21 M/mcL (3.82-4.97); Red Cell Distribution Width 16.3 % (11.5-14.5); Segmented Neutrophils % 76.9 %
[2017-08-02 05:05] LABS: Calcium 7.3 mg/dL (8.6-10.8)
[2017-08-02] MEDS: Lactobacillus 1 EACH CAP.SPRINK PO SCH ×2 (07:37→21:27)
[2017-08-02] MEDS: Nicotine 21 MG PATCH.TD24 TD SCH (07:37)
[2017-08-02] MEDS: Renal Vitamin 1 MG CAPSULE PO SCH (07:37)
[2017-08-02] MEDS: Diltiazem CD (24hr) 120 MG CAPSULE PO SCH (07:37)
--- NOTE | 2017-08-02 08:02 | Internal Med Progress Note ---
Date of Encounter: 08/02/17 Time of Encounter: 08:02 - Assessment and plan (1) Acute respiratory distress Current Visit: Yes Status: Acute Assessment and plan: Recent still having respiratory distress despite fluid removal with dialysis. She does appear to have a lot of secretions in her airway and she is not able to cough up anything. Will start Accu pap to help with mucus buildup. Will call consult pulmonology (2) Atrial fibrillation with rapid ventricular response Current Visit: Yes Status: Acute Assessment and plan: She was tachycardic after dialysis and usually subsides, but overnight she remained tachycardic. May be due to fluid status changes. Judiciously hydrate her with IV fluid followed by 5 mg of Lopressor. Also increase Cardizem CD, currently taking 120 mg. She was not started on anticoagulation consists of suspicion of GI bleed during so far has received 9 units of packed red blood cells during this admission. Her HAS-BLED score is 2 (3) Acute blood loss anemia Current Visit: Yes Status: Resolved Assessment and plan: She had an EGDdone yesterday for suspicion of GI bleed after she was anemic. Findings were negative for GI bleed, positive for gastroparesis, and possibly achalasia (4) ESRD (end stage renal disease) Current Visit: No Status: Chronic Assessment and plan: On a regular dialysis schedule (5) Ileostomy in place Current Visit: No Status: Chronic Assessment and plan: Blood is no longer found in the ileostomy. - Subjective Interval history: Postdialysis yesterday patient went tachycardi cafter dialysis. Given IV Lopressor without improvement of her heart rate remained in atrial fibrillation with heart rate 130s overnight. She still has trouble with her cough and shortness of breath. She denies any fevers or chills. She does have chest wall pain from frequent cough - Constitutional Vitals: Temp Pulse Resp BP Pulse Ox 98.0 F 105 16 100/58 98 08/02/17 07:24 08/02/17 07:24 08/02/17 07:24 08/02/17 07:24 08/02/17 07:27 General appearance: Present: A&O X 3, no acute distress, loss of weight - Respiratory Respiratory exam: Present: chest wall tenderness, decreased breath sounds. Absent: accessory muscle use, tachypnea Additional comments: Air exchange fair, improved from yesterday's exam.. Breath sounds are diminished at both bases. Transmitted upper airway sounds - Cardiovascular Cardiovascular exam: Present: irregular rhythm, tachycardia. Absent: clicks, JVD - GI/Abdominal GI/Abdominal exam: Present: normal bowel sounds, soft, no peritoneal signs. Absent: distended, tenderness Internal Medicine: Result - Labs CBC & Chem 7: 08/02/17 04:40 08/02/17 04:40 Labs: Short CBC 08/02/17 Range/Units 04:40 WBC 3.4 L (4.3-11.1) K/mcL Hgb 9.3 L (11.5-15.4) g/dL Hct 29.6 L (35.3-44.9) % Plt Count 51 L (140-400) K/mcL Neutrophils # 2.6 (1.6-8.9) K/mcL BMP 08/02/17 04:40 Sodium 138 Potassium 4.0 Chloride 101 Carbon Dioxide 28 BUN 28 H D Creatinine 3.97 H Glucose 84 Calcium 7.3 L - ABG Interpretation ABG results: PT/INR, D-dimer PT 13.3 Seconds (9.4-12.1) H 07/29/17 01:47 - VTE Documentation of Mechanical Device: Intermittent pneumatic compression device Consult Discharge Plan - Plan Referrals: Na Johansen CNP [Primary Care Provider] - 08/06/17 8:15 am (Please follow up with Na Johansen) Jeevan Ramirez MD [Partnered Physician] - (in 3 weeks-call for appointment)
[2017-08-02] MEDS: Ondansetron 4 MG/2 ML VIAL IVP PRN (09:24)
[2017-08-02] MEDS: *HR* Morphine 2 MG/ML SYRINGE IVP PRN ×3 (09:24→21:27)
[2017-08-02] MEDS ORDERED: *HR* Metoprolol 5 MG/5 ML VIAL IVP ONE (09:35)
--- NOTE | 2017-08-02 10:03 | Event Note ---
Date of Encounter: 08/02/17 Time of Encounter: 10:01 Nephrology Chart Review Will be available this weekend. Her next HD is tentatively planned for Friday. Please feel free to call me as I'll be available this weekend. Thank you
[2017-08-02] MEDS: Budesonide/Formoterol 160/4.5 MDI IH SCH ×2 (10:51→21:21)
--- NOTE | 2017-08-02 11:15 | Pulmonology Consult Note ---
Date of Encounter: 08/02/17 Time of Encounter: 11:00 Assessment and Plan (1) Acute respiratory failure with hypoxia Current Visit: Yes Status: Acute Patient is having acute respiratory failure with hypoxia the cause is multifactorial fluid overload with ESRD and diastolic dysfunction , Atrial fibrillation with RVR worsening her diastolic dysfunction, worsening pneumonia , the current worsening respiratory distress inspite of dialysis can due to worsening pneumonia with not able to cough her secretions . Agree with N Acetylcysteine , will add aggressive bronchopulmonary toileting ACCUPAP every 6 hours . (2) Pneumonia Current Visit: Yes Status: Acute Reviewing imaging and clinical exam she might have health care associated pneumonia which lead to increased secretions which she is not able to clear her secretions . After bronchopulmonary toileting if she brings sputum production send for culture . In the meantime will start on Vancomycin and Zosyn renally dosed . Qualifiers: Laterality: right Lung location: unspecified part of lung Qualified Code( s): J18.9 - Pneumonia, unspecified organism (3) COPD (chronic obstructive pulmonary disease) Current Visit: Yes Status: Acute Will continue the current regimen of bronchodilators . Qualifiers: Qualified Code(s): J44.9 - Chronic obstructive pulmonary disease, unspecified History of Present Illness Consult date: 08/02/17 Requesting physician: Jim Burdick Reason for consult: dyspnea, cough Chief complaint: Cough and Shortness of breadth History of present illness: 71 year old female with past medical history significant for ESRD on dialysis , COPD, HTN ,Atrial fibrillation was recently treated for pneumonia comes to this hospital admission with increased shortness of breadth and pedal edema , cough with some sputum prodution , denies any hemoptysis , patient has on and off palpitations pulmonary was consulted for evaluation of hypoxic respiratory failure and not able to cough up her secretions . Patient denies any fever or chills , has some orthopnea has some on and off chest pain. Patient denies any nausea and vomitting , denies any headache. Past Med Surg Social Fam HX - Past Medical History Medical history: asthma, COPD, GERD, hypertension, renal disease, thyroid disease Psychiatric history: no psych history - Past Surgical History Surgical History: appendectomy, cholecystectomy, colostomy, hysterectomy, other - Social History Smoking Status: Former smoker Smokeless Tobacco Status: No Alcohol use: none Drug use: none - Family History Mother Adopted: No Living Status: Hx Family Cardiac Disorders: Yes (OK/ Stroke) Hx Family Respiratory Disorders: No Hx Family Cancer: No Hx Family GI Disorders: No Hx Family Endocrine Disorder: No Hx Family Neuromuscular Disorders: No Hx Family Neurologic Disorders: No Hx Family HEENT Disorders: No Hx Family Autoimmune Disorders: No Father Adopted: No Living Status: Hx Family Cardiac Disorders: Yes (OK) Hx Family Respiratory Disorders: No Hx Family Cancer: No Hx Family GI Disorders: No Hx Family Endocrine Disorder: No Hx Family Neuromuscular Disorders: No Hx Family Neurologic Disorders: No Hx Family HEENT Disorders: No Hx Family Autoimmune Disorders: No Brother Living Status: Still Living Hx Family Cardiac Disorders: Yes Hx Family Respiratory Disorders: No Hx Family Endocrine Disorder: Yes Medications and Allergies Amitriptyline [Elavil] 50 mg PO HS 09/19/15 [History] Cholecalciferol (Vitamin D3) [Vitamin D3] 5,000 unit PO DAILY #0 09/19/15 [ History] Ranitidine HCl [Zantac] 150 mg PO HS 09/19/15 [History] Cyanocobalamin (B-12) [Vitamin B12] 1,000 mcg IM QMONTH 02/21/17 [History] Levothyroxine Sodium [Synthroid] 300 mcg PO DAILY 02/21/17 [History] Mometasone/Formoterol [Dulera 100 Mcg/5 Mcg Inhaler] 2 puff IH BID 02/21/17 [ History] Lactobacillus [Culturelle] 1 each PO BID #60 cap.sprink 03/10/17 [Rx] Albuterol Neb [Proventil Neb] 2.5 mg IH Q6H PRN 06/30/17 [History] Lidocaine/Prilocaine CREAM [Emla] 1 appl TP AD PRN 06/30/17 [History] Renal Vitamin [Renal Caps Softgel] 1 mg PO DAILY 06/30/17 [History] Acetaminophen [Tylenol] 650 mg PO Q6HR PRN #20 tab 07/10/17 [Rx] Atorvastatin [Lipitor] 80 mg PO HS #14 tab 07/10/17 [Rx] Diltiazem CD (24hr) [Cardizem CD] 120 mg PO DAILY #14 07/10/17 [Rx] Nicotine Patch [Nicoderm] 21 mg TD DAILY #14 07/10/17 [Rx] Ondansetron ODT [Zofran ODT] 4 mg SL Q6HR #20 tab.rapdis 07/10/17 [Rx] levoFLOXacin [Levaquin] 500 mg PO Q48H #6 tablet 07/10/17 [Rx] predniSONE [PredniSONE] 20 mg PO DAILY #5 tab 07/10/17 [Rx] GuaiFENesin ER [Mucinex] 600 mg PO BID PRN 07/16/17 [History] Menthol [[place]] 3.2 mg MM Q4H PRN 07/16/17 [History] 3 Allergy/AdvReac Type Severity Reaction Status Date / Time codeine AdvReac Severe Vomiting Verified 03/06/17 15:22 naproxen [From Naprosyn] AdvReac Severe Vomiting Verified 03/06/17 15:22 All Systems: A 10-system review of systems was performed and is negative for pertinent findings except as documented above in the HPI. Physical Examination Vital Signs: Vital Signs, Last 4 Hours Temp Pulse Resp BP Pulse Ox 08/02/17 10:45 134 101/56 08/02/17 08:47 97.9 F 99 16 102/58 100 08/02/17 07:27 98 08/02/17 07:24 98.0 F 105 16 100/58 98 General appearance: other (mild respiratory distress) Effort: mildly labored Auscultation: bilateral: rales Cardiovascular: irregular rhythm (atrial fibrillation) Results - Laboratory Findings CBC and BMP: 08/02/17 04:40 08/02/17 04:40 PT/INR, D-dimer PT 13.3 Seconds (9.4-12.1) H 07/29/17 01:47 Abnormal lab findings: Abnormal lab results WBC 3.4 K/mcL (4.3-11.1) L 08/02/17 04:40 RBC 3.21 M/mcL (3.82-4.97) L 08/02/17 04:40 Hgb 9.3 g/dL (11.5-15.4) L 08/02/17 04:40 Hct 29.6 % (35.3-44.9) L 08/02/17 04:40 MCHC 31.4 g/dL (31.6-35.5) L 08/02/17 04:40 RDW 16.3 % (11.5-14.5) H 08/02/17 04:40 Plt Count 51 K/mcL (140-400) L 08/02/17 04:40 Lymphocytes # 0.5 K/mcL (0.6-4.6) L 08/02/17 04:40 Reactive Lymphocytes Present (Not Present) A 07/19/17 04:30 Platelet Estimate Decreased (Normal) L 07/19/17 04:30 Immature Plt Fraction 6.2 % (1.1-6.1) H 08/02/17 04:40 PT 13.3 Seconds (9.4-12.1) H 07/29/17 01:47 BUN 28 mg/dL (7-20) H D 08/02/17 04:40 Creatinine 3.97 mg/dL (0.57-1.11) H 08/02/17 04:40 Est GFR ( Amer) 13 (> 60) L 08/02/17 04:40 Est GFR (Non-Af Amer) 11 (> 60) L 08/02/17 04:40 POC Glucose 218 (58-89) H 07/27/17 17:19 Calcium 7.3 mg/dL (8.6-10.8) L 08/02/17 04:40 Ionized Calcium 0.93 mmol/L (1.15-1.35) L 07/25/17 03:20 Phosphorus 8.1 mg/dL (2.3-4.7) H 07/22/17 03:40 Iron 44 mcg/dL (50-170) L 07/18/17 04:29 Transferrin 171 mg/dL (180-382) L 07/18/17 04:29 B-Natriuretic Peptide 3352 pg/mL (0-100) H 07/16/17 06:40 25-OH Vitamin D Total 29 ng/mL (30-80) L 07/17/17 03:30 Vit D 1,25-Dihydroxy 14.9 pg/mL (19.9-79.3) L 07/17/17 03:30 TSH 0.230 mcIU/mL (0.350-4.840) L 08/02/17 10:00 PTH Intact 856.8 pg/ml (8.5-72.5) H 07/22/17 03:40 Ur Specimen Adequacy See below A 07/18/17 15:22 Urine Color Red (Yellow) A 07/20/17 Unknown Urine Clarity Turbid (Clear) A 07/20/17 Unknown Urine Protein 100 mg/dL (Neg-Trace) H 07/20/17 Unknown Urine Blood Large (Negative) H 07/20/17 Unknown Ur Leukocyte Esterase Moderate (Negative) H 07/20/17 Unknown Urine Microscopic RBC TNTC per hpf (0-3) H 07/20/17 Unknown Ur Culture Indicated? YES (NO) A 07/18/17 15:22 - Clinical Findings Intake & Output: Intake & Output 08/01/17 08/02/17 08/02/17 23:59 07:59 15:59 Intake Total 240 / 240 490 / 490 250 / 250 Balance 240 / 240 490 / 490 250 / 250 Weight 71.5 kg Consult Discharge Plan - Plan Referrals: Na Johansen CNP [Primary Care Provider] - 08/06/17 8:15 am (Please follow up with Na Johansen) Jeevan Ramirez MD [Partnered Physician] - (in 3 weeks-call for appointment)
[2017-08-02] MEDS ORDERED: Vancomycin (wt based) 1,000 MG VIAL IV ONE (12:00)
[2017-08-02] MEDS ORDERED: Vancomycin 1,250 MG in D5% in Water 250 ML IVPB ONE (12:15)
[2017-08-02] MEDS: Piperacillin/Tazobactam 3.375 GM in D5% in Water (Mini-Bag+) 100 ML IVPB SCH (12:38)
[2017-08-02] MEDS: Albuterol 2.5 MG/3 ML NEBULIZER IH PRN ×2 (15:41→21:21)
[2017-08-02] MEDS: Famotidine 20 MG TABLET PO SCH (21:28)
[2017-08-03] MEDS: Piperacillin/Tazobactam 3.375 GM in D5% in Water (Mini-Bag+) 100 ML IVPB SCH ×2 (00:59→13:40)
[2017-08-03] MEDS: Albuterol 2.5 MG/3 ML NEBULIZER IH PRN ×4 (03:43→22:29)
[2017-08-03] MEDS: Acetylcysteine 10% 2 ML INHSOL IH SCH ×4 (03:43→22:29)
[2017-08-03] MEDS: *HR* Morphine 2 MG/ML SYRINGE IVP PRN ×3 (04:33→17:44)
[2017-08-03 04:56] LABS: Hemoglobin 8.8 g/dL (11.5-15.4)
[2017-08-03 04:58] LABS: Eosinophils % 1.1 %; Immature Granulocytes % 0.5 % (0-4); Immature Platelets 4.9 % (1.1-6.1); Lymphocytes # 0.6 K/mcL (0.6-4.6); Lymphocytes % 15.6 %; Mean Corpuscular HGB Conc 31.4 g/dL (31.6-35.5); Mean Corpuscular Hemoglobin 29.1 pg (28.0-33.3); Mean Corpuscular Volume 92.7 fL (83.0-100.0); Mean Platelet Volume 11.9 fL (9.4-12.4); Monocytes # 0.2 K/mcL (0.0-1.3); Neutrophils # 2.8 K/mcL (1.6-8.9); Red Blood Count 3.02 M/mcL (3.82-4.97); Red Cell Distribution Width 16.6 % (11.5-14.5); Segmented Neutrophils % 76.8 %
[2017-08-03 05:01] LABS: Platelet Count 47 K/mcL (140-400)
[2017-08-03 05:15] LABS: Potassium 4.4 mEq/L (3.5-4.5)
[2017-08-03] MEDS: Renal Vitamin 1 MG CAPSULE PO SCH (08:34)
[2017-08-03] MEDS: Nicotine 21 MG PATCH.TD24 TD SCH (08:34)
[2017-08-03] MEDS: Acetaminophen 325 MG TABLET PO PRN (08:34)
[2017-08-03] MEDS: Lactobacillus 1 EACH CAP.SPRINK PO SCH ×2 (08:35→20:35)
[2017-08-03] MEDS: Diltiazem CD (24hr) 120 MG CAPSULE PO SCH (08:35)
[2017-08-03] MEDS: Budesonide/Formoterol 160/4.5 MDI IH SCH ×2 (09:56→22:29)
[2017-08-03] MEDS ORDERED: Vancomycin 500 MG in D5% in Water (Mini-Bag+) 100 ML IVPB ONE (11:22)
--- NOTE | 2017-08-03 11:32 | Pulmonology Progress Note ---
Date of Encounter: 08/03/17 Time of Encounter: 08:30 Assessment and Plan (1) Acute respiratory failure with hypoxia Current Visit: Yes Status: Acute Multifactorial contributed fluid overload with health care associated pneumonia stable oxygenation if she worsens gets ABG if there is worsening hypercapnia and hypoxia patient might need BIPAP therapy. Spoke with nursing staff make sure she is doing the aggressive bronchopulmonary toileting ACCUPAP Q6 hrly (2) Pneumonia Current Visit: Yes Status: Acute Encourage patient to cough will get a good sample to send for sputum c/s , for now to continue the broad spectrum antibiotics. Qualifiers: Laterality: right Lung location: unspecified part of lung Qualified Code( s): J18.9 - Pneumonia, unspecified organism (3) COPD (chronic obstructive pulmonary disease) Current Visit: Yes Status: Acute To continue the current regimen of bronchodilators. Qualifiers: Qualified Code(s): J44.9 - Chronic obstructive pulmonary disease, unspecified Subjective Principal diagnosis: ESRD on dialysis, hypocalcemia Interval history: Patient says she is feeling the same little bit of shortness of breadth she is having hard to time bringing the sputum out i encouraged her to cough up she is able to bring up thick sputum. Objective PUL Vital signs: Last Vital Signs Temp 97.6 F 08/03/17 10:56 Pulse 78 08/03/17 10:56 Resp 17 08/03/17 10:56 BP 119/57 08/03/17 10:56 Pulse Ox 94 08/03/17 10:56 General appearance: other (mild re) Effort: mildly labored Auscultation: bilateral: rales Results - Laboratory Findings CBC and BMP: 08/03/17 04:30 08/03/17 04:30 PT/INR, D-dimer PT 13.3 Seconds (9.4-12.1) H 07/29/17 01:47 Abnormal lab findings: Abnormal lab results WBC 3.7 K/mcL (4.3-11.1) L 08/03/17 04:30 RBC 3.02 M/mcL (3.82-4.97) L 08/03/17 04:30 Hgb 8.8 g/dL (11.5-15.4) L 08/03/17 04:30 Hct 28.0 % (35.3-44.9) L 08/03/17 04:30 MCHC 31.4 g/dL (31.6-35.5) L 08/03/17 04:30 RDW 16.6 % (11.5-14.5) H 08/03/17 04:30 Plt Count 47 K/mcL (140-400) L 08/03/17 04:30 Reactive Lymphocytes Present (Not Present) A 07/19/17 04:30 Platelet Estimate Decreased (Normal) L 07/19/17 04:30 PT 13.3 Seconds (9.4-12.1) H 07/29/17 01:47 BUN 39 mg/dL (7-20) H D 08/03/17 04:30 Creatinine 5.43 mg/dL (0.57-1.11) H 08/03/17 04:30 Est GFR ( Amer) 9 (> 60) L 08/03/17 04:30 Est GFR (Non-Af Amer) 8 (> 60) L 08/03/17 04:30 Glucose 132 mg/dL (70-99) H 08/03/17 04:30 POC Glucose 218 (58-89) H 07/27/17 17:19 Calcium 7.0 mg/dL (8.6-10.8) L 08/03/17 04:30 Ionized Calcium 0.93 mmol/L (1.15-1.35) L 07/25/17 03:20 Phosphorus 8.1 mg/dL (2.3-4.7) H 07/22/17 03:40 Iron 44 mcg/dL (50-170) L 07/18/17 04:29 Transferrin 171 mg/dL (180-382) L 07/18/17 04:29 B-Natriuretic Peptide 3352 pg/mL (0-100) H 07/16/17 06:40 25-OH Vitamin D Total 29 ng/mL (30-80) L 07/17/17 03:30 Vit D 1,25-Dihydroxy 14.9 pg/mL (19.9-79.3) L 07/17/17 03:30 TSH 0.230 mcIU/mL (0.350-4.840) L 08/02/17 10:00 PTH Intact 856.8 pg/ml (8.5-72.5) H 07/22/17 03:40 Ur Specimen Adequacy See below A 07/18/17 15:22 Urine Color Red (Yellow) A 07/20/17 Unknown Urine Clarity Turbid (Clear) A 07/20/17 Unknown Urine Protein 100 mg/dL (Neg-Trace) H 07/20/17 Unknown Urine Blood Large (Negative) H 07/20/17 Unknown Ur Leukocyte Esterase Moderate (Negative) H 07/20/17 Unknown Urine Microscopic RBC TNTC per hpf (0-3) H 07/20/17 Unknown Ur Culture Indicated? YES (NO) A 07/18/17 15:22 - Microbiology Findings Microbiology Findings: Microbiology, Last 48 Hours 08/03/17 09:09 Sputum Culture - Preliminary Sputum - Clinical Findings Intake & Output: Intake & Output 08/02/17 08/03/17 08/03/17 23:59 07:59 15:59 Intake Total 220 / 220 220 / 220 Balance 220 / 220 220 / 220 Weight 74.4 kg - VTE Documentation of Mechanical Device: Intermittent pneumatic compression device Consult Discharge Plan - Plan Referrals: Na Johansen CNP [Primary Care Provider] - 08/06/17 8:15 am (Please follow up with Na Johansen) Jeevan Ramirez MD [Partnered Physician] - (in 3 weeks-call for appointment)
--- NOTE | 2017-08-03 12:52 | Internal Med Progress Note ---
Date of Encounter: 08/03/17 Time of Encounter: 12:50 - Assessment and plan (1) Acute respiratory distress Current Visit: Yes Status: Acute Assessment and plan: Fluid overload and hcap with excessive secretions. Continue antibiotics, Mucinex, Mucomyst (2) Atrial fibrillation with rapid ventricular response Current Visit: Yes Status: Acute Assessment and plan: Rate controlled with Cardizem CD 120 mg. if she persistently gets tachycardic she would need an increased dose. not started on anticoagulation due to GI bleed during so far has received 9 units of packed red blood cells during this admission. Her HAS-BLED score is 2 (3) Acute blood loss anemia Current Visit: Yes Status: Resolved Assessment and plan: She had an EGDdone yesterday for suspicion of GI bleed after she was anemic. Findings were negative for GI bleed, positive for gastroparesis, and possibly achalasia (4) ESRD (end stage renal disease) Current Visit: No Status: Chronic Assessment and plan: On a regular dialysis schedule (5) Ileostomy in place Current Visit: No Status: Chronic Assessment and plan: Blood is no longer found in the ileostomy. - Subjective Interval history: Complaints, no acute events overnight. She did not have any tachycardic episodes. She denies shortness of breath, chest pain, fevers, chills. Mucous Secretions improved - Constitutional Vitals: Temp Pulse Resp BP Pulse Ox 97.6 F 78 17 119/57 94 08/03/17 10:56 08/03/17 10:56 08/03/17 10:56 08/03/17 10:56 08/03/17 10:56 General appearance: Present: A&O X 3, no acute distress, loss of weight - Respiratory Respiratory exam: Present: chest wall tenderness, decreased breath sounds, rales , rhonchi, wheezes. Absent: accessory muscle use, prolonged expiratory phase, respiratory distress, stridor, tachypnea - Cardiovascular Cardiovascular exam: Present: RRR, +S1, +S2. Absent: diastolic murmur, gallop, rubs, systolic murmur - Extremities Exam Extremities exam: Present: warm, radial pulses palpable and symmetrical. Absent : calf tenderness, cyanotic, pedal edema Internal Medicine: Result - Labs CBC & Chem 7: 08/03/17 04:30 08/03/17 04:30 Labs: Short CBC 08/03/17 Range/Units 04:30 WBC 3.7 L (4.3-11.1) K/mcL Hgb 8.8 L (11.5-15.4) g/dL Hct 28.0 L (35.3-44.9) % Plt Count 47 L (140-400) K/mcL Neutrophils # 2.8 (1.6-8.9) K/mcL BMP 08/03/17 04:30 Sodium 137 Potassium 4.4 Chloride 102 Carbon Dioxide 25 BUN 39 H D Creatinine 5.43 H Glucose 132 H Calcium 7.0 L - ABG Interpretation ABG results: PT/INR, D-dimer PT 13.3 Seconds (9.4-12.1) H 07/29/17 01:47 - VTE Documentation of Mechanical Device: Intermittent pneumatic compression device Consult Discharge Plan - Plan Referrals: Na Johansen CNP [Primary Care Provider] - 08/06/17 8:15 am (Please follow up with Na Johansen) Jeevan Ramirez MD [Partnered Physician] - (in 3 weeks-call for appointment)
[2017-08-03] MEDS: Ondansetron 4 MG/2 ML VIAL IVP PRN (16:16)
[2017-08-03] MEDS: Famotidine 20 MG TABLET PO SCH (20:35)
[2017-08-04] MEDS: Piperacillin/Tazobactam 3.375 GM in D5% in Water (Mini-Bag+) 100 ML IVPB SCH ×2 (00:17→13:28)
[2017-08-04] MEDS: *HR* Morphine 2 MG/ML SYRINGE IVP PRN ×4 (00:18→20:39)
[2017-08-04] MEDS: Ondansetron 4 MG/2 ML VIAL IVP PRN ×2 (00:19→13:38)
[2017-08-04] MEDS: Acetylcysteine 10% 2 ML INHSOL IH SCH ×4 (05:08→21:34)
[2017-08-04] MEDS: Albuterol 2.5 MG/3 ML NEBULIZER IH PRN ×3 (05:08→21:33)
[2017-08-04 05:13] LABS: Calcium 7.2 mg/dL (8.6-10.8); Potassium 4.5 mEq/L (3.5-4.5)
[2017-08-04 05:36] LABS: Red Cell Distribution Width 16.3 % (11.5-14.5)
[2017-08-04 05:38] LABS: Basophils % 0.3 %; Eosinophils % 1.1 %; Hematocrit 26.6 % (35.3-44.9); Hemoglobin 8.1 g/dL (11.5-15.4); Immature Granulocytes % 0.6 % (0-4); Immature Platelets 6.1 % (1.1-6.1); Lymphocytes # 0.5 K/mcL (0.6-4.6); Lymphocytes % 12.7 %; Mean Corpuscular HGB Conc 30.5 g/dL (31.6-35.5); Monocytes # 0.3 K/mcL (0.0-1.3); Monocytes % 6.9 %; Neutrophils # 2.8 K/mcL (1.6-8.9); Red Blood Count 2.89 M/mcL (3.82-4.97); Segmented Neutrophils % 78.4 %
[2017-08-04 05:40] LABS: Platelet Count 48 K/mcL (140-400)
[2017-08-04] MEDS ORDERED: 0.9 % Sodium Chloride 250 ML IVC PRN (06:00)
[2017-08-04] MEDS: *HR* Promethazine 25 MG/ML VIAL IVP PRN ×2 (06:29→20:59)
[2017-08-04] MEDS ORDERED: 0.9 % Sodium Chloride 2,000 ML ONE (07:17)
[2017-08-04] MEDS: Lactobacillus 1 EACH CAP.SPRINK PO SCH ×2 (07:39→20:39)
[2017-08-04] MEDS: Renal Vitamin 1 MG CAPSULE PO SCH (07:39)
[2017-08-04] MEDS: Nicotine 21 MG PATCH.TD24 TD SCH (07:40)
[2017-08-04] MEDS: Diltiazem CD (24hr) 120 MG CAPSULE PO SCH (07:40)
[2017-08-04] MEDS ORDERED: Aminoglycoside Consult 1 EACH MC ONE (08:21)
--- NOTE | 2017-08-04 09:30 | Nephrology Progress Note ---
Date of Encounter: 08/04/17 Time of Encounter: 09:00 - Assessment and Plan (1) ESRD (end stage renal disease) on dialysis Current Visit: Yes Status: Chronic Will arrange for HD today and to challenge her edema with more UF today (I will target more fluid removal). (2) Generalized weakness Current Visit: Yes Status: Acute Most likely multifactorial from several comorbidities and prolonged series of hospitalizations. Would rec PT/OT if they are not already providing therapy while hospitalized. (3) Hypocalcemia Current Visit: Yes Status: Acute Will monitor. Have been using a higher Ca++ bath with HD. (4) Peripheral edema Current Visit: Yes Status: Acute See above (5) Acute respiratory distress Current Visit: Yes Status: Acute Appreciate Pulmonology and the hospitalists. Agree with broad spect Abx for HCAP. Thank you. (6) Anemia in CKD (chronic kidney disease) Current Visit: Yes Status: Chronic Continue IVANNA while hospitalized. After this hospitalization, she'll receive EPO at the dialysis unit and it would be administered by [facility] (so if she went to an ECF after this hospitalization; the ECF would not provide this Rx). Qualifiers: Chronic kidney disease stage: on chronic dialysis Qualified Code(s): N18.6 - End stage renal disease; D63.1 - Anemia in chronic kidney disease; D63.1 - Anemia in chronic kidney disease; Z99.2 - Dependence on renal dialysis; Z99.2 - Dependence on renal dialysis; Z99.2 - Dependence on renal dialysis; Z99.2 - Dependence on renal dialysis Subjective Principal diagnosis: ESRD on dialysis, hypocalcemia Interval history: Pt was s/e while in the HD unit. She reported that her cough is about the same. She reports feeling more swelling in her LE, R > L, but did not affirm F/C or dysuria. She reported having generalized overall weakness that has started during this long hospitalization. Objective - Vital Signs Vital signs: Vital Signs Temp Pulse Resp BP Pulse Ox 08/04/17 08:33 91 08/04/17 06:57 98.6 F 84 18 128/55 91 08/04/17 05:10 20 92 08/04/17 03:51 98.8 F 80 18 120/63 97 08/03/17 23:29 99.1 F 89 18 132/66 98 08/03/17 22:38 16 97 08/03/17 19:21 98.5 F 82 18 136/66 100 08/03/17 16:14 97.6 F 73 16 112/62 99 08/03/17 16:00 18 99 08/03/17 10:56 97.6 F 78 17 119/57 94 08/03/17 09:56 16 95 Intake and Output 08/03/17 08/04/17 08/04/17 23:59 07:59 15:59 Intake Total 460 / 460 Output Total 0 / 0 Balance 460 / 460 0 / 0 Intake: IV Fluids 100 / 100 Zosyn 3.375 GM In Dextrose 5% ( 100 / 100 Minibag+) 100 ML 100 ML @ 25 mls/hr IVPB Q12H [facility] Rx#: [id number] Oral 360 / 360 Output: Urine 0 / 0 Other: Meal Dinner Breakfast Percent of Meal Consumed 80% 100% - General Appearance General appearance: Present: cachectic, chronically ill, fatigue, frail EENT: Present: ATNC, PERRL, mucous membranes moist Neck: Present: supple Respiratory: Present: wheezing, rales, course breath sounds, rhonchi Cardiology: Present: edema (LLE trace to tight skin and the RLE with about 1+ pretibial pitting edema. ), regular rate, regular rhythm, normal S1, normal S2 Dialysis Vascular Access: Arteriovenous Fistula (Right UE) thrill: Yes bruit: Yes Gastrointestinal: Present: normoactive bowel sounds, no guarding Additional Comments: ostomy bags Integumentary: Present: warm and dry Neurologic: Present: no focal deficit, no asterixis, alert and oriented x3 Musculoskeletal: Present: no deformities, no erythema, no clubbing Psychiatric: Present: mood/affect appropriate, cooperative - Lab 08/04/17 04:45 08/04/17 04:45 Most recent lab results Calcium 7.2 mg/dL (8.6-10.8) L 08/04/17 04:45 Phosphorus 8.1 mg/dL (2.3-4.7) H 07/22/17 03:40 Magnesium 1.6 mg/dL (1.6-2.6) 07/24/17 03:01 - VTE Documentation of Mechanical Device: Intermittent pneumatic compression device Consult Discharge Plan - Plan Referrals: Na Johansen, SHAFT REPAIRER [Primary Care Provider] - 08/06/17 8:15 am (Please follow up with Na Johansen) Jeevan Ramirez MD [Partnered Physician] - (in 3 weeks-call for appointment)
[2017-08-04] MEDS: Budesonide/Formoterol 160/4.5 MDI IH SCH ×2 (10:46→21:35)
--- NOTE | 2017-08-04 18:36 | Internal Med Progress Note ---
Date of Encounter: 08/04/17 Time of Encounter: 11:30 - Assessment and plan (1) Acute respiratory distress Current Visit: Yes Status: Acute Assessment and plan: Pulmonology following Had fluid overload from ESRD which has been corrected with dialysis. Has bronchorrhea from peumonia which improved with Vanc/Zosyn, accupap, N-AC. Sputum culture resulted; Gram negative Rods. Vancomycin was discontinued. Appreciate Pulm recs on duration of therapy. (2) Atrial fibrillation with rapid ventricular response Current Visit: Yes Status: Acute Assessment and plan: Rate controlled with Cardizem CD 120 mg and prn IV lopressor. Not anticoagulated because of GI bleed. So far received 9 units of PRBC during admission. (3) Acute blood loss anemia Current Visit: Yes Status: Resolved Assessment and plan: She had an EGDdone yesterday for suspicion of GI bleed after she was anemic. Findings were negative for GI bleed, positive for gastroparesis, and possibly achalasia (4) ESRD (end stage renal disease) Current Visit: No Status: Chronic Assessment and plan: Fluid overload corrected after receiving urgent dialysis, she is now back on MWF regular schedule (5) Ileostomy in place Current Visit: No Status: Chronic - Subjective Interval history: No acute events. Mucus buildup improved with broad spectrum abx. Breathing improved overall because of this. - Constitutional Vitals: Temp Pulse Resp BP Pulse Ox 97.8 F 80 18 114/64 100 08/04/17 15:32 08/04/17 15:32 08/04/17 15:32 08/04/17 15:32 08/04/17 15:32 General appearance: Present: A&O X 3, no acute distress, loss of weight Exam: Gen: NAD, AAOx3 Neck: no JVD CVS: normal rate irregularly irregular rhythm Lungs: better air exchange at bases. Upper airways sounds improved from yesterday. Fine rales Ext: no edema Internal Medicine: Result - Labs CBC & Chem 7: 08/04/17 04:45 08/04/17 04:45 Labs: Short CBC 08/04/17 Range/Units 04:45 WBC 3.6 L (4.3-11.1) K/mcL Hgb 8.1 L (11.5-15.4) g/dL Hct 26.6 L (35.3-44.9) % Plt Count 48 L (140-400) K/mcL Neutrophils # 2.8 (1.6-8.9) K/mcL BMP 08/04/17 04:45 Sodium 138 Potassium 4.5 Chloride 102 Carbon Dioxide 25 BUN 47 H Creatinine 6.58 H Glucose 109 H Calcium 7.2 L - ABG Interpretation ABG results: PT/INR, D-dimer PT 13.3 Seconds (9.4-12.1) H 07/29/17 01:47 - VTE Documentation of Mechanical Device: Intermittent pneumatic compression device Consult Discharge Plan - Plan Referrals: Na Johansen CNP [Primary Care Provider] - 08/06/17 8:15 am (Please follow up with Na Johansen) Jeevan Ramirez MD [Partnered Physician] - (in 3 weeks-call for appointment)
[2017-08-04] MEDS: Famotidine 20 MG TABLET PO SCH (20:39)
[2017-08-05] MEDS: Acetaminophen 325 MG TABLET PO PRN ×2 (01:24→08:23)
[2017-08-05] MEDS: Piperacillin/Tazobactam 3.375 GM in D5% in Water (Mini-Bag+) 100 ML IVPB SCH (01:25)
[2017-08-05] MEDS: Acetylcysteine 10% 2 ML INHSOL IH SCH (03:19)
[2017-08-05] MEDS: Albuterol 2.5 MG/3 ML NEBULIZER IH PRN ×2 (03:19→09:58)
[2017-08-05 03:56] LABS: Immature Granulocytes % 0.3 % (0-4); Red Cell Distribution Width 16.5 % (11.5-14.5)
[2017-08-05 03:58] LABS: Basophils % 0.3 %; Eosinophils # 0.1 K/mcL (0.0-0.6); Eosinophils % 1.5 %; Hematocrit 26.1 % (35.3-44.9); Immature Platelets 4.8 % (1.1-6.1); Lymphocytes # 0.5 K/mcL (0.6-4.6); Lymphocytes % 15.5 %; Mean Corpuscular HGB Conc 30.7 g/dL (31.6-35.5); Mean Corpuscular Hemoglobin 28.3 pg (28.0-33.3); Mean Corpuscular Volume 92.2 fL (83.0-100.0); Mean Platelet Volume 10.8 fL (9.4-12.4); Monocytes # 0.2 K/mcL (0.0-1.3); Monocytes % 6.6 %; Red Blood Count 2.83 M/mcL (3.82-4.97); Segmented Neutrophils % 75.8 %
[2017-08-05 04:09] LABS: Ionized Calcium 1.1 mmol/L (1.15-1.35); Neutrophils # 2.6 K/mcL (1.6-8.9); Platelet Count 53 K/mcL (140-400)
[2017-08-05 04:14] LABS: Calcium 7.9 mg/dL (8.6-10.8); Magnesium 1.4 mg/dL (1.6-2.6); Potassium 4.2 mEq/L (3.5-4.5)
[2017-08-05 04:32] LABS: Platelet Estimate Increased (Normal)
--- NOTE | 2017-08-05 08:15 | Nephrology Progress Note ---
Date of Encounter: 08/05/17 Time of Encounter: 08:12 - Assessment and Plan (1) ESRD (end stage renal disease) on dialysis Current Visit: Yes Status: Chronic Plan for HD tomorrow; goal 2-3 kilo fluid removal 3600ml removed during HD yesterda Avoid nephrotoxins if possible (2) Hypocalcemia Current Visit: Yes Status: Acute Ca+ 7.9 Continue ergocalciferol Continue Calcitriol for elevated PTH Continue 3 Ca++ bath in HD (3) Anemia in chronic kidney disease Current Visit: Yes Status: Chronic Hgb 8.0 Goal 10-11 Transfuse per parameters Continue Aranesp GI team following Qualifiers: Chronic kidney disease stage: on chronic dialysis Qualified Code(s): N18.6 - End stage renal disease; D63.1 - Anemia in chronic kidney disease; Z99.2 - Dependence on renal dialysis (4) Ileostomy in place Current Visit: No Status: Chronic per primary team/GI team (5) Magnesium deficiency Current Visit: Yes Status: Acute Mg low at 1.4 per primary team Subjective Principal diagnosis: ESRD on dialysis, hypocalcemia Interval history: Patient seen and examined. Sitting up in bed eating breakfast; states she is feeling better Objective - Vital Signs Vital signs: Vital Signs Temp Pulse Resp BP Pulse Ox 08/05/17 07:36 97.6 F 75 16 113/52 93 08/05/17 03:19 17 90 08/05/17 03:06 98.2 F 75 19 105/46 93 08/04/17 23:11 98.3 F 81 17 112/53 91 08/04/17 21:35 20 92 08/04/17 19:25 98.5 F 84 21 123/61 90 08/04/17 15:32 97.8 F 80 18 114/64 100 08/04/17 15:26 20 98 08/04/17 12:40 98.7 F 132/61 08/04/17 12:30 136/63 08/04/17 12:15 135/66 08/04/17 11:45 130/58 08/04/17 11:26 98.3 F 82 18 127/61 98 08/04/17 11:15 141/55 08/04/17 10:45 134/63 08/04/17 10:15 123/61 08/04/17 09:45 117/56 08/04/17 09:15 99.0 F 17 126/61 08/04/17 08:33 91 Intake and Output 08/04/17 08/05/17 08/05/17 23:59 07:59 15:59 Intake Total 340 / 340 Balance 340 / 340 Intake: IV Fluids 100 / 100 Zosyn 3.375 GM In Dextrose 5% ( 100 / 100 Minibag+) 100 ML 100 ML @ 25 mls/hr IVPB Q12H [facility] Rx#: [id number] Oral 240 / 240 Other: Weight 71.758 kg Patient Weight 08/05/17 23:59 Weight 71.758 kg - General Appearance General appearance: Present: cachectic, chronically ill, frail EENT: Present: ATNC, mucous membranes moist, hearing intact, vision intact Neck: Present: supple Respiratory: Present: wheezing, course breath sounds, rhonchi Cardiology: Present: edema, normal S1, normal S2 Dialysis Vascular Access: Arteriovenous Fistula Gastrointestinal: Present: no guarding Integumentary: Present: warm and dry Neurologic: Present: alert and oriented x3 Psychiatric: Present: mood/affect appropriate, cooperative - Lab 08/05/17 03:45 08/05/17 03:45 Most recent lab results Calcium 7.9 mg/dL (8.6-10.8) L 08/05/17 03:45 Phosphorus 8.1 mg/dL (2.3-4.7) H 07/22/17 03:40 Magnesium 1.4 mg/dL (1.6-2.6) L 08/05/17 03:45 - VTE Documentation of Mechanical Device: Intermittent pneumatic compression device Consult Discharge Plan - Plan Referrals: Na Johansen CNP [Primary Care Provider] - 08/06/17 8:15 am (Please follow up with Na Johansen) Jeevan Ramirez MD [Partnered Physician] - (in 3 weeks-call for appointment)
[2017-08-05] MEDS: Nicotine 21 MG PATCH.TD24 TD SCH (08:22)
[2017-08-05] MEDS: Diltiazem CD (24hr) 120 MG CAPSULE PO SCH (08:23)
[2017-08-05] MEDS: Lactobacillus 1 EACH CAP.SPRINK PO SCH ×2 (08:23→21:50)
[2017-08-05] MEDS: Renal Vitamin 1 MG CAPSULE PO SCH (08:23)
[2017-08-05] MEDS ORDERED: Magnesium Sulfate 2 GM in D5% in Water 100 ML IVPB ONE (08:55)
[2017-08-05] MEDS ORDERED: Magnesium Oxide 400 MG TABLET PO SCH (09:00)
[2017-08-05] MEDS ORDERED: Sulfamethoxazole/Trimeth DS 1 EACH TABLET PO ONE (09:02)
--- NOTE | 2017-08-05 09:46 | Pulmonology Progress Note ---
Date of Encounter: 08/05/17 Time of Encounter: 09:44 Assessment and Plan (1) Acute respiratory failure with hypoxia Current Visit: Yes Status: Acute This is improving. Continue supplemental oxygen on an as-needed basis to his saturation greater than 89% at all times. Continued aggressive bronchopulmonary toileting including Accu-Leland every 6 hours given the difficulty in mobilization of secretions I switched her acetylcysteine from inhaled formulation to oral therapy. She will need to continue incentive spirometry out of bed to chair ambulation physical therapy etc. additionally she has had problems with volume overload which is a manifestation of her end- stage renal disease atrial fibrillation and CHF which is volume status is imparting manage through dialysis. Primary medicine service and nephrology service will continue to optimize her blood pressure and volume status clinically today's near euvolemic to my examination. (2) Pneumonia Current Visit: Yes Status: Acute This is pneumonia associated with positive sputum culture for stenotrophomonas. I recommend switching antimicrobial to Bactrim to be dosed by pharmacy given renal dysfunction I spoke personally with the pharmacist as on this matter. Duration of therapy should be at least 7 days and if resolution of symptoms of that time treatment cessation otherwise continuation of treatment for 10-14 days. In general this infection is a harbinger for advanced lung disease chronic frailty debility and overall poor prognosis Qualifiers: Laterality: right Lung location: unspecified part of lung Qualified Code( s): J18.9 - Pneumonia, unspecified organism (3) COPD (chronic obstructive pulmonary disease) Current Visit: Yes Status: Acute This is stable continue bronchodilators Pulmonary will sign off please call with any questions [phone] Qualifiers: Qualified Code(s): J44.9 - Chronic obstructive pulmonary disease, unspecified Subjective Principal diagnosis: ESRD on dialysis, hypocalcemia Interval history: Patient seen and examined at the bedside. She has been weaned off nasal cannula oxygen. Still has difficulty in mobilizing secretions because they are thick. And also complaining of some pleuritic type chest pain with deep inspiration. She has been trying to use incentive spirometry at bedside although this has been sporadic. Denies fevers or chills generally feels a bit better underwent dialysis yesterday Objective PUL Vital signs: Last Vital Signs Temp 97.6 F 08/05/17 07:36 Pulse 75 08/05/17 07:36 Resp 16 08/05/17 07:36 BP 113/52 08/05/17 07:36 Pulse Ox 93 08/05/17 08:51 General appearance: no acute distress ENT: oropharynx moist Auscultation: bilateral: diminished breath sounds, rhonchi Cardiovascular: irregular rhythm Gastrointestinal: normoactive bowel sounds, soft, non-tender Extremities: edema (Trace lower extremity edema) Results - Laboratory Findings CBC and BMP: 08/05/17 03:45 08/05/17 03:45 PT/INR, D-dimer PT 13.3 Seconds (9.4-12.1) H 07/29/17 01:47 Abnormal lab findings: Abnormal lab results WBC 3.4 K/mcL (4.3-11.1) L 08/05/17 03:45 RBC 2.83 M/mcL (3.82-4.97) L 08/05/17 03:45 Hgb 8.0 g/dL (11.5-15.4) L 08/05/17 03:45 Hct 26.1 % (35.3-44.9) L 08/05/17 03:45 MCHC 30.7 g/dL (31.6-35.5) L 08/05/17 03:45 RDW 16.5 % (11.5-14.5) H 08/05/17 03:45 Plt Count 53 K/mcL (140-400) L 08/05/17 03:45 Lymphocytes # 0.5 K/mcL (0.6-4.6) L 08/05/17 03:45 Reactive Lymphocytes Present (Not Present) A 07/19/17 04:30 Platelet Estimate Increased (Normal) H 08/05/17 03:45 PT 13.3 Seconds (9.4-12.1) H 07/29/17 01:47 BUN 30 mg/dL (7-20) H D 08/05/17 03:45 Creatinine 4.80 mg/dL (0.57-1.11) H 08/05/17 03:45 Est GFR ( Amer) 11 (> 60) L 08/05/17 03:45 Est GFR (Non-Af Amer) 9 (> 60) L 08/05/17 03:45 Glucose 106 mg/dL (70-99) H 08/05/17 03:45 POC Glucose 218 (58-89) H 07/27/17 17:19 Calcium 7.9 mg/dL (8.6-10.8) L 08/05/17 03:45 Ionized Calcium 1.10 mmol/L (1.15-1.35) L 08/05/17 03:45 Phosphorus 8.1 mg/dL (2.3-4.7) H 07/22/17 03:40 Magnesium 1.4 mg/dL (1.6-2.6) L 08/05/17 03:45 Iron 44 mcg/dL (50-170) L 07/18/17 04:29 Transferrin 171 mg/dL (180-382) L 07/18/17 04:29 B-Natriuretic Peptide 3352 pg/mL (0-100) H 07/16/17 06:40 25-OH Vitamin D Total 29 ng/mL (30-80) L 07/17/17 03:30 Vit D 1,25-Dihydroxy 14.9 pg/mL (19.9-79.3) L 07/17/17 03:30 TSH 0.230 mcIU/mL (0.350-4.840) L 08/02/17 10:00 PTH Intact 856.8 pg/ml (8.5-72.5) H 07/22/17 03:40 Ur Specimen Adequacy See below A 07/18/17 15:22 Urine Color Red (Yellow) A 07/20/17 Unknown Urine Clarity Turbid (Clear) A 07/20/17 Unknown Urine Protein 100 mg/dL (Neg-Trace) H 07/20/17 Unknown Urine Blood Large (Negative) H 07/20/17 Unknown Ur Leukocyte Esterase Moderate (Negative) H 07/20/17 Unknown Urine Microscopic RBC TNTC per hpf (0-3) H 07/20/17 Unknown Ur Culture Indicated? YES (NO) A 07/18/17 15:22 - Microbiology Findings Microbiology Findings: Microbiology, Last 48 Hours 08/03/17 09:09 Sputum Culture - Final Sputum Stenotrophomonas maltophilia - Clinical Findings Intake & Output: Intake & Output 08/04/17 08/05/17 08/05/17 23:59 07:59 15:59 Intake Total 340 / 340 Output Total 0 / 0 Balance 340 / 340 0 / 0 Weight 71.758 kg - VTE Documentation of Mechanical Device: Intermittent pneumatic compression device Consult Discharge Plan - Plan Referrals: Na Johansen CNP [Primary Care Provider] - 08/06/17 8:15 am (Please follow up with Na Johansen) Jeevan Ramirez MD [Partnered Physician] - (in 3 weeks-call for appointment)
[2017-08-05] MEDS: Budesonide/Formoterol 160/4.5 MDI IH SCH ×2 (09:59→21:28)
[2017-08-05] MEDS: *HR* OxyCODONE/APAP 5/325 TABLET PO PRN ×2 (12:21→21:50)
--- NOTE | 2017-08-05 13:17 | Internal Med Progress Note ---
Date of Encounter: 08/05/17 Time of Encounter: 13:13 - Assessment and plan (1) Acute respiratory failure with hypoxia Current Visit: Yes Status: Acute Assessment and plan: Likely secondary to underlying COPD and PNA pulmonology on board and consultation appreciated blood cultures noted and changed abx as per culture sensitivities started PO bactrim. renally dosed abx continue O2 supplementation as needed bronchodilator support PT/OT evaluation requested (2) Pneumonia Current Visit: Yes Status: Acute Assessment and plan: as listed above Qualifiers: Pneumonia type: due to unspecified organism Laterality: right Lung location: unspecified part of lung Qualified Code(s): J18.9 - Pneumonia, unspecified organism (3) COPD (chronic obstructive pulmonary disease) Current Visit: Yes Status: Acute Assessment and plan: continue home meds Qualifiers: COPD type: unspecified COPD Qualified Code(s): J44.9 - Chronic obstructive pulmonary disease, unspecified (4) Anemia in CKD (chronic kidney disease) Current Visit: Yes Status: Chronic Assessment and plan: Nephrology on board and consultation appreciated continue Aranesp infusion during HD continue ferrous sulfate H&H low but acceptable continue to closely monitor and will transfuse as needed Qualifiers: Chronic kidney disease stage: on chronic dialysis Qualified Code(s): N18.6 - End stage renal disease; D63.1 - Anemia in chronic kidney disease; D63.1 - Anemia in chronic kidney disease; Z99.2 - Dependence on renal dialysis; Z99.2 - Dependence on renal dialysis; Z99.2 - Dependence on renal dialysis; Z99.2 - Dependence on renal dialysis (5) Gastroparesis Current Visit: Yes Status: Chronic (6) Hypomagnesemia Current Visit: No Status: Acute Assessment and plan: Mg supplemented continue to monitor electrolytes and replace as needed (7) ESRD (end stage renal disease) on dialysis Current Visit: Yes Status: Chronic Assessment and plan: nephrology on board and consultation appreciated continue HD session as per nephro (8) Tobacco abuse Current Visit: No Status: Chronic Assessment and plan: smoking cessation counseling provided patient states she will think about quitting nicotine supplementation given (9) Atrial fibrillation Current Visit: No Status: Chronic Assessment and plan: Rate controlled with BB, will continue not on AC due to history of bleeding (GI) Cardiology to address anticoagulation status as outpatient Qualifiers: Atrial fibrillation type: persistent Qualified Code(s): I48.1 - Persistent atrial fibrillation (10) Hypothyroid Current Visit: No Status: Acute Assessment and plan: continue levothyroxine Qualifiers: Hypothyroidism type: unspecified Qualified Code(s): E03.9 - Hypothyroidism , unspecified (11) DVT prophylaxis Current Visit: Yes Status: Acute Assessment and plan: SCD - Subjective Interval history: Patient seen and examined with family present at bedside. Pt reports of diffuse chest pain with deep inspiration and cough. Currently being treated for HCAP. No overnight events reported. Pt reports of smoking 1-2ppd since the age of 16 and will think about quitting after discharge. - Constitutional Vitals: Temp Pulse Resp BP Pulse Ox 97.4 F L 84 16 124/56 92 08/05/17 10:31 08/05/17 10:31 08/05/17 10:31 08/05/17 10:31 08/05/17 10:31 General appearance: Present: A&O X 3, no acute distress - Head Head exam: Present: atraumatic, normocephalic - Eye Eye exam: Present: conjuntiva pink, sclera anicteric - Respiratory Respiratory exam: Present: decreased breath sounds. Absent: respiratory distress (coarse breath sounds), wheezes - Cardiovascular Cardiovascular exam: Present: irregular rhythm, +S1, +S2. Absent: diastolic murmur, systolic murmur - GI/Abdominal GI/Abdominal exam: Present: normal bowel sounds, soft, no peritoneal signs. Absent: distended, tenderness - Extremities Exam Extremities exam: Present: warm, radial pulses palpable and symmetrical. Absent : calf tenderness - Neurological Exam Neurological exam: Present: alert, oriented X3 - Psychiatric Psychiatric exam: Present: normal affect, normal mood Internal Medicine: Result - Labs CBC & Chem 7: 08/05/17 03:45 08/05/17 03:45 Labs: Short CBC 08/05/17 Range/Units 03:45 WBC 3.4 L (4.3-11.1) K/mcL Hgb 8.0 L (11.5-15.4) g/dL Hct 26.1 L (35.3-44.9) % Plt Count 53 L (140-400) K/mcL Neutrophils # 2.6 (1.6-8.9) K/mcL BMP 08/05/17 03:45 Sodium 139 Potassium 4.2 Chloride 102 Carbon Dioxide 27 BUN 30 H D Creatinine 4.80 H Glucose 106 H Calcium 7.9 L - ABG Interpretation ABG results: PT/INR, D-dimer PT 13.3 Seconds (9.4-12.1) H 07/29/17 01:47 - VTE Documentation of Mechanical Device: Intermittent pneumatic compression device Consult Discharge Plan - Plan Referrals: Na Johansen CNP [Primary Care Provider] - 08/06/17 8:15 am (Please follow up with Na Johansen) Jeevan Ramirez MD [Partnered Physician] - (in 3 weeks-call for appointment)
[2017-08-05] MEDS ORDERED: 0.9 % Sodium Chloride 250 ML IVC PRN (16:38)
[2017-08-05] MEDS ORDERED: *HR* Acetylcysteine 20% 600 MG/3 ML ORAL SYRINGE PO SCH (21:00)
[2017-08-05] MEDS: Famotidine 20 MG TABLET PO SCH (21:50)
[2017-08-05] MEDS: *HR* Promethazine 25 MG/ML VIAL IVP PRN (21:53)
[2017-08-06] MEDS: *HR* OxyCODONE/APAP 5/325 TABLET PO PRN (06:18)
[2017-08-06] MEDS: Ondansetron 4 MG/2 ML VIAL IVP PRN (06:19)
[2017-08-06 07:49] LABS: Eosinophils % 1.5 %; Hemoglobin 8.4 g/dL (11.5-15.4); Immature Granulocytes % 0.3 % (0-4)
[2017-08-06 07:50] LABS: Eosinophils # 0.1 K/mcL (0.0-0.6); Hematocrit 27.3 % (35.3-44.9); Immature Platelets 3.9 % (1.1-6.1); Lymphocytes # 0.6 K/mcL (0.6-4.6); Lymphocytes % 15.7 %; Mean Corpuscular HGB Conc 30.8 g/dL (31.6-35.5); Mean Corpuscular Hemoglobin 27.9 pg (28.0-33.3); Mean Corpuscular Volume 90.7 fL (83.0-100.0); Mean Platelet Volume 11.2 fL (9.4-12.4); Monocytes # 0.2 K/mcL (0.0-1.3); Monocytes % 5.6 %; Neutrophils # 3.1 K/mcL (1.6-8.9); Red Blood Count 3.01 M/mcL (3.82-4.97); Red Cell Distribution Width 16.4 % (11.5-14.5); Segmented Neutrophils % 76.9 %
[2017-08-06 08:00] LABS: Magnesium 1.6 mg/dL (1.6-2.6); Phosphorous 5.9 mg/dL (2.3-4.7); Potassium 4.6 mEq/L (3.5-4.5)
[2017-08-06 08:02] LABS: Platelet Count 59 K/mcL (140-400)
--- NOTE | 2017-08-06 09:03 | Nephrology Progress Note ---
Date of Encounter: 08/06/17 Time of Encounter: 08:35 - Assessment and Plan (1) ESRD (end stage renal disease) on dialysis Current Visit: Yes Status: Chronic Continue iHD every M/W/F. Targeting more UF this week d/t her increased edema compared to baseline. (2) Generalized weakness Current Visit: Yes Status: Acute Most likely multifactorial from several comorbidities and prolonged series of hospitalizations. Correcting electrolytes with HD. (3) Hypocalcemia Current Visit: Yes Status: Acute I have ordered a higher Ca++ bath with HD today at 3, and also the Ergo and Calcitriol will indirectly raise the serum Ca++ levels. Should use serum Albumin to calculate the corrected Ca++ levels. (4) Peripheral edema Current Visit: Yes Status: Acute See above (5) Acute respiratory distress Current Visit: Yes Status: Acute Appreciate Pulmonology and the hospitalists. Stenotrophomonas, now on TMP-SMX, which I agree should be renally dosed (typically after HD on dialysis days). Thank you. (6) Anemia in CKD (chronic kidney disease) Current Visit: Yes Status: Chronic Continue IVANNA while hospitalized. After this hospitalization, she'll receive EPO at the dialysis unit and it would be administered by [facility] (so if she went to d /c to an ECF after this hospitalization; the ECF would not provide this Rx). Qualifiers: Chronic kidney disease stage: on chronic dialysis Qualified Code(s): N18.6 - End stage renal disease; D63.1 - Anemia in chronic kidney disease; D63.1 - Anemia in chronic kidney disease; Z99.2 - Dependence on renal dialysis; Z99.2 - Dependence on renal dialysis; Z99.2 - Dependence on renal dialysis; Z99.2 - Dependence on renal dialysis Subjective Principal diagnosis: ESRD on dialysis, hypocalcemia Interval history: Pt was s/e while in the HD unit. She reported that her cough is about the same. She reports feeling more swelling in her LE, R > L, but did not affirm F/C or dysuria. She reported having generalized overall weakness that has started during this long hospitalization. Objective - Vital Signs Vital signs: Vital Signs Temp Pulse Resp BP Pulse Ox 08/06/17 06:38 98.4 F 81 18 108/62 97 08/06/17 03:13 98.4 F 86 18 106/52 91 08/05/17 21:29 18 92 08/05/17 18:29 98.9 F 82 19 124/66 93 08/05/17 15:30 98.2 F 80 18 122/66 96 08/05/17 10:31 97.4 F L 84 16 124/56 92 08/05/17 10:13 16 93 Intake and Output 08/05/17 08/06/17 08/06/17 23:59 07:59 15:59 Intake Total 0 / 0 Balance 0 / 0 Intake: Oral 0 / 0 Other: Meal Dinner Percent of Meal Consumed 10% Weight 72.938 kg Patient Weight 08/06/17 23:59 Weight 72.938 kg - Lab 08/06/17 07:46 08/06/17 07:46 Most recent lab results Calcium 8.0 mg/dL (8.6-10.8) L 08/06/17 07:46 Phosphorus 5.9 mg/dL (2.3-4.7) H 08/06/17 07:46 Magnesium 1.6 mg/dL (1.6-2.6) 08/06/17 07:46 - VTE Documentation of Mechanical Device: Intermittent pneumatic compression device Consult Discharge Plan - Plan Referrals: Na Johansen CNP [Primary Care Provider] - 08/20/17 1:15 pm (Please follow up with Na Johansen) Jeevan Ramirez MD [Partnered Physician] - (in 3 weeks-call for appointment)
[2017-08-06] MEDS: Lactobacillus 1 EACH CAP.SPRINK PO SCH (09:19)
[2017-08-06] MEDS: Renal Vitamin 1 MG CAPSULE PO SCH (09:19)
[2017-08-06] MEDS: Nicotine 21 MG PATCH.TD24 TD SCH (09:20)
[2017-08-06] MEDS: Diltiazem CD (24hr) 120 MG CAPSULE PO SCH (09:20)
[2017-08-06] MEDS ORDERED: *HR* OxyCODONE/APAP 5/325 TABLET PO PRN (09:56)
[2017-08-06] MEDS: Budesonide/Formoterol 160/4.5 MDI IH SCH (10:31)
[2017-08-06 12:08] VITALS: BP 120/57
[2017-08-06] MEDS ORDERED: Sulfamethoxazole/Trimeth SS 1 TAB PO SCH (13:00)
--- NOTE | 2017-08-06 15:01 | Discharge Summary ---
Date of Encounter: 08/06/17 Time of Encounter: 14:57 - Discharge Diagnosis (1) Acute respiratory failure with hypoxia Priority: Primary Status: Resolved (2) Pneumonia Priority: Primary Status: Acute Qualifiers: Pneumonia type: due to unspecified organism Laterality: right Lung location: unspecified part of lung Qualified Code(s): J18.9 - Pneumonia, unspecified organism (3) COPD (chronic obstructive pulmonary disease) Priority: Secondary Status: Acute Qualifiers: COPD type: unspecified COPD Qualified Code(s): J44.9 - Chronic obstructive pulmonary disease, unspecified (4) Anemia in CKD (chronic kidney disease) Priority: Secondary Status: Chronic Qualifiers: Chronic kidney disease stage: on chronic dialysis Qualified Code(s): N18.6 - End stage renal disease; D63.1 - Anemia in chronic kidney disease; D63.1 - Anemia in chronic kidney disease; Z99.2 - Dependence on renal dialysis; Z99.2 - Dependence on renal dialysis; Z99.2 - Dependence on renal dialysis; Z99.2 - Dependence on renal dialysis (5) Gastroparesis Priority: Secondary Status: Chronic (6) Hypomagnesemia Priority: Secondary Status: Acute (7) ESRD (end stage renal disease) on dialysis Priority: Secondary Status: Chronic (8) Tobacco abuse Priority: Secondary Status: Chronic (9) Atrial fibrillation Priority: Secondary Status: Chronic Qualifiers: Atrial fibrillation type: persistent Qualified Code(s): I48.1 - Persistent atrial fibrillation (10) Hypothyroid Priority: Secondary Status: Chronic Qualifiers: Hypothyroidism type: unspecified Qualified Code(s): E03.9 - Hypothyroidism , unspecified (11) DVT prophylaxis Priority: Secondary Status: Acute - Discharge Medications Prescriptions: OxyCODONE/APAP 5/325 [Percocet 5/325 MG] 1 each PO Q6HR PRN #15 tablet PRN Reason: Severe Pain Calcitriol [Rocaltrol] 0.25 mcg PO DAILY #15 capsule Ferrous Sulfate 325 mg PO DAILY@0800 #30 tablet Sulfamethoxazole/Trimeth SS [Bactrim SS] 1 tab PO Q24H #12 tablet Home Medications: Amitriptyline [Elavil] 50 mg PO HS 09/19/15 [History] Cholecalciferol (Vitamin D3) [Vitamin D3] 5,000 unit PO DAILY #0 09/19/15 [ History] Ranitidine HCl [Zantac] 150 mg PO HS 09/19/15 [History] Cyanocobalamin (B-12) [Vitamin B12] 1,000 mcg IM QMONTH 02/21/17 [History] Levothyroxine Sodium [Synthroid] 300 mcg PO DAILY 02/21/17 [History] Mometasone/Formoterol [Dulera 100 Mcg/5 Mcg Inhaler] 2 puff IH BID 02/21/17 [ History] Lactobacillus [Culturelle] 1 each PO BID #60 cap.sprink 03/10/17 [Rx] Albuterol Neb [Proventil Neb] 2.5 mg IH Q6H PRN 06/30/17 [History] Lidocaine/Prilocaine CREAM [Emla] 1 appl TP AD PRN 06/30/17 [History] Renal Vitamin [Renal Caps Softgel] 1 mg PO DAILY 06/30/17 [History] Acetaminophen [Tylenol] 650 mg PO Q6HR PRN #20 tab 07/10/17 [Rx] Atorvastatin [Lipitor] 80 mg PO HS #14 tab 07/10/17 [Rx] Diltiazem CD (24hr) [Cardizem CD] 120 mg PO DAILY #14 07/10/17 [Rx] Nicotine Patch [Nicoderm] 21 mg TD DAILY #14 07/10/17 [Rx] Ondansetron ODT [Zofran ODT] 4 mg SL Q6HR #20 tab.rapdis 07/10/17 [Rx] GuaiFENesin ER [Mucinex] 600 mg PO BID PRN 07/16/17 [History] Menthol [[place]] 3.2 mg MM Q4H PRN 07/16/17 [History] Calcitriol [Rocaltrol] 0.25 mcg PO DAILY #15 capsule 08/06/17 [Rx] Ferrous Sulfate 325 mg PO DAILY@0800 #30 tablet 08/06/17 [Rx] OxyCODONE/APAP 5/325 [Percocet 5/325 MG] 1 each PO Q6HR PRN #15 tablet 08/06/17 [Rx] Sulfamethoxazole/Trimeth SS [Bactrim SS] 1 tab PO Q24H #12 tablet 08/06/17 [Rx] Allergies/Adverse Reactions: 3 Allergy/AdvReac Type Severity Reaction Status Date / Time codeine AdvReac Severe Vomiting Verified 03/06/17 15:22 naproxen [From Naprosyn] AdvReac Severe Vomiting Verified 03/06/17 15:22 Date of admission: 07/16/17 12:02 Primary care physician: Na Johansen CNP Consults: 07/16/17 18:33 Consult to Interventional Radiology [CONS] Routine Consulting Provider: Radiology Interventional Cols Reason for Consult: Please evaluate for placement of a temporary HD catheter for morning. Her LUE AVF will likely need a fistulagram as well, not on , since I will need to stabilize her first. Thank you Call Completed: No 07/17/17 08:15 Consult to Dialysis [CONS] ONCE 07/18/17 06:00 Consult to Dialysis [CONS] ONCE 07/19/17 09:00 Consult to Dialysis [CONS] ONCE 07/21/17 08:45 Consult to Dialysis [CONS] ONCE 07/21/17 10:26 Consult to Interventional Radiology [CONS] Stat Consulting Provider: Radiology Interventional Cols Reason for Consult: fistulagram left arm fistula Time Notified: 10:20 Call Completed: Yes 07/22/17 08:45 Consult to Dialysis [CONS] ONCE 07/22/17 11:04 Consult to Interventional Radiology [CONS] Routine Consulting Provider: Radiology Interventional Cols Reason for Consult: patient needs a tunneled line. primary team is ordering platelets. Call Completed: Yes 07/23/17 08:15 Consult to Dialysis [CONS] ONCE 07/23/17 08:19 Consult to Vascular Surgery [CONS] Stat Consulting Provider: Vascular Surgery Katelyn Reason for Consult: Dialysis fistula stenosis Call Completed: Yes 07/24/17 08:00 Consult to Dialysis [CONS] ONCE 07/24/17 08:15 Consult to Dialysis [CONS] ONCE 07/24/17 14:26 Consult to Interventional Radiology [CONS] Routine Consulting Provider: Radiology Interventional Cols Reason for Consult: Patient needs a tunneled HD line Call Completed: Yes 07/25/17 06:45 Consult to Dialysis [CONS] ONCE 07/26/17 06:45 Consult to Dialysis [CONS] ONCE 07/28/17 10:31 Consult to Gastroenterology [CONS] Routine Consulting Provider: Gastroenterology [place] Reason for Consult: blood per ileostomy Call Completed: Yes 07/28/17 11:30 Consult to Dialysis [CONS] ONCE 07/30/17 08:00 Consult to Dialysis [CONS] ONCE 08/01/17 07:30 Consult to Dialysis [CONS] ONCE 08/02/17 09:40 Consult to Pulmonology [CONS] Routine Consulting Provider: Pulm [facility] [place] Reason for Consult: Dyspnea Call Completed: Yes 08/02/17 11:25 Consult to Respiratory Therapy [CONS] Routine Reason for Consult: Pt needs Accupap Call Completed: Yes 08/04/17 06:00 Consult to Dialysis [CONS] ONCE 08/05/17 12:04 Consult to Occupational Therapy [CONS] Routine Comment: Evaluate, develop and implement POC Reason for Consult: home needs Consult to Physical Therapy [CONS] Routine Comment: Evaluate, develop and implement POC Reason for Consult: decreased mobilization 08/06/17 06:00 Consult to Dialysis [CONS] ONCE Discharging clinician: Tracie Shipley Anticipated date of discharge: 08/06/17 - Patient Status Disposition: Home, Self-Care Condition: Fair Functional capacity at discharge: uses cane/walker Overall status at discharge: patient is back to baseline - Discharge Instructions Follow Up With: Na Johansen CNP [Primary Care Provider] - 08/20/17 1:15 pm (Please follow up with Na Johansen) Jeevan Ramirez MD [Partnered Physician] - (in 3 weeks-call for appointment) Additional Instructions: Please follow up with your primary care physician within five days after your discharge from the hospital. Please follow up with pulmonology, cardiology within one week after your discharge Please follow up with nephrology after discharge. Continue hemodialysis Friday Ferrous sulfate has been added to your home meds Continue taking oral antibiotic (Bactrim SS 1Tab once a day for 12 more days) your home dose of prednisone has been discontinued resume all other home meds as prescribed by your primary care physician. - Diet and Activity Activity: resume usual activities as tolerated Diet: low salt diet Hospital course: Ms. Parra is a 71 year old female with PMH of urostomy, colostomy, COPD end stage, ESRD on HD admitted for acute respiratory failure secondary to PNA. Pt was started on IV abx. She was followed by pulmonology, nephrology. Her hospital course was complicated by requiring revision of venous anastomosis of AV shunt which was done by vascular surgery. Pt was evaluated by physical therapy numerous times. Pt is able to ambulate well around the room. She refused any home health services. She is has severe COPD and continues to smoke everyday. She was also found to have AFib with RVR during this hospitalization. cardiology was involved. Her rate was controlled with cardizem and she was not started on anticoagulation due to history of GI bleed. She is to follow up with cardiology as outpatient for initiation of anticoagulation therapy vs aspirin as outpatient. Pt continued her hemodialysis while she was hospitalized. She was started on Arasnep therapy for anemia by nephrology. At this time pt is hemodynamically stable and will be discharged to home with oral antibiotics as per the culture sensitivity report. She is to follow up with PCP, cardiology, pulmonology, and nephrology after discharge. Pt refusing home health services - Time Spent with Patient Total time spent providing and/or coordinating discharge services: Greater than 30 minutes - Constitutional Vitals: Temp Pulse Resp BP Pulse Ox 97 F L 81 18 120/57 97 08/06/17 12:05 08/06/17 06:38 08/06/17 12:05 08/06/17 12:05 08/06/17 09:26 General appearance: Present: A&O X 3, no acute distress - Head Head exam: Present: atraumatic, normocephalic - Eye Eye exam: Present: conjuntiva pink, sclera anicteric - Respiratory Respiratory exam: Present: CTAB. Absent: respiratory distress, wheezes - Cardiovascular Cardiovascular exam: Present: RRR, +S1, +S2. Absent: diastolic murmur, gallop, rubs, systolic murmur - GI/Abdominal GI/Abdominal exam: Present: normal bowel sounds, soft, no peritoneal signs. Absent: distended, tenderness Additional comments: urostomy and colostomy intact - Extremities Exam Extremities exam: Present: full ROM, warm, radial pulses palpable and symmetrical. Absent: calf tenderness - Neurological Exam Neurological exam: Present: alert, oriented X3 - Psychiatric Psychiatric exam: Present: normal affect, normal mood - VTE Documentation of Mechanical Device: Intermittent pneumatic compression device
[2017-08-06] MEDS ORDERED: 0.9 % Sodium Chloride 1,000 ML ONE (15:36)
[2017-08-06] MEDS ORDERED: FLUARIX QUAD 2017-18 36MOS UP/PF 0.5 ML SYRINGE IM ONE (15:37)
== END 2017-08-06 16:45 | disposition home or self-care (01) | DRG 182 ==
LOC: 2ANU 06:14 → EMEROO 06:14 → SUATTDRO 12:02 → 2ANU 12:38
PROVIDERS: ADMIT Internal Medicine; ATTEND Internal Medicine

== ENCOUNTER 2017-09-01 21:07 | Inpatient (IN) ==
[2017-09-01] MEDS ORDERED: *HR* HYDROmorphone (PF) 1 MG/ML SYRINGE IVP ONE ×2 (21:11→23:55)
[2017-09-01] MEDS ORDERED: Famotidine 20 MG/2 ML VIAL IVP ONE (21:12)
[2017-09-01] MEDS ORDERED: 0.9 % Sodium Chloride 250 ML IVC ONE (21:12)
[2017-09-01 22:17] LABS: Basophils % 0.1 %; Eosinophils # 0.1 K/mcL (0.0-0.6); Eosinophils % 0.7 %; Hematocrit 28.9 % (35.3-44.9); Hemoglobin 9.5 g/dL (11.5-15.4); Immature Granulocytes % 0.8 % (0-4); Lymphocytes # 1.5 K/mcL (0.6-4.6); Lymphocytes % 19.4 %; Mean Corpuscular HGB Conc 32.9 g/dL (31.6-35.5); Mean Corpuscular Hemoglobin 29.4 pg (28.0-33.3); Mean Corpuscular Volume 89.5 fL (83.0-100.0); Monocytes # 0.3 K/mcL (0.0-1.3); Monocytes % 3.8 %; Neutrophils # 5.7 K/mcL (1.6-8.9); Platelet Count 100 K/mcL (140-400); Red Blood Count 3.23 M/mcL (3.82-4.97); Red Cell Distribution Width 18.6 % (11.5-14.5); Segmented Neutrophils % 75.2 %
[2017-09-01 22:23] LABS: INR 1.2; Prothrombin Time 13.3 Seconds (9.4-12.1)
[2017-09-01 22:32] LABS: Albumin 2.5 g/dL (3.5-5.0); Albumin/Globulin Ratio 0.7 (1.1-2.2); Bilirubin,Direct 0.2 mg/dL (0.0-0.5); Bilirubin,Indirect 0.2 mg/dL (0.0-1.2); Bilirubin,Total 0.4 mg/dL (0.2-1.2); Globulin 3.6 g/dL (2.4-3.5); Total Protein 6.1 g/dL (6.0-8.3)
[2017-09-01 22:36] LABS: Potassium 2.1 mEq/L (3.5-4.5)
[2017-09-01] MEDS ORDERED: MetroNIDAZOLE 500 MG/100 ML 500 MG/100 ML BAG IVPB ONE (22:50)
[2017-09-01] MEDS ORDERED: Potassium Chloride Elixir 20 MEQ/15 ML UDC PO ONE (22:53)
[2017-09-01] MEDS ORDERED: Potassium Chloride 40 MEQ/200 ML BAG IVPB ONE (22:53)
[2017-09-01 23:06] LABS: Magnesium 1.5 mg/dL (1.6-2.6)
[2017-09-01] MEDS ORDERED: Ondansetron 4 MG/2 ML VIAL IVP ONE (23:14)
[2017-09-01] MEDS ORDERED: Ondansetron 4 MG/2 ML VIAL ONE (23:15)
[2017-09-01] MEDS ORDERED: Magnesium Sulfate 1 GM in D5% in Water 100 ML IVPB ONE (23:46)
[2017-09-02] MEDS ORDERED: *HR* HYDROmorphone (PF) 1 MG/ML SYRINGE IVP ONE (02:58)
[2017-09-02] MEDS ORDERED: Naloxone 0.4 MG/ML INJ IVP PRN (03:01)
--- NOTE | 2017-09-02 03:12 | Internal Med History&Physical ---
<Jovani Sylvester - Last Filed: 09/02/17 03:23> Date of Encounter: 09/02/17 Time of Encounter: 03:11 Assessment and Plan (1) Colitis Current visit: Yes Status: Acute - As seen on CT in ED. Most likely infectious. - Ischemic colitis considered, however lactic acid wnl. Will trend. - Colostomy bag in place, some blood present. - Pain control, start Cipro and Flagyl. - Zofran for nausea. - Gentle fluids at 75/hr given Hx of CHF (2) Hypokalemia Current visit: Yes Status: Acute K of 2.1 in ED. - Received 80 mEq in ED. - Likely secondary to n/v, diarrhea. - Will replenish as needed after AM labs. - Mg pending. (3) Volume depletion, gastrointestinal loss Current visit: No Status: Chronic - Clinically dry on exam - Reported constant n/v, chronic diarrhea. - Will replenish gently at 75/hr. Monitor for fluid overload in CHF. (4) Leg pain Current visit: Yes Status: Chronic - Has chronic pain in bilateral legs. - Self reports she has been told about venous insufficiency vs PAD - Pain control and follow up as outpatient for management. Qualifiers: Laterality: bilateral Qualified Code(s): M79.604 - Pain in right leg; M79.605 - Pain in left leg (5) ESRD (end stage renal disease) Current visit: Yes Status: Chronic - BUN/Cr around baseline. - Was not able to continue dialysis this morning. MWF schedule. - Continue regularly scheduled dialysis MWF - Avoid volume overload, nephrotoxic agents. (6) Paroxysmal a-fib Current visit: No Status: Chronic - AFib on EKG and on clinical exam - Continue home diltiazem dosage. - Not on A/C due to falls, hx of bleeds - Currently rate controlled. (7) DVT prophylaxis Current visit: No Status: Acute - Hold A/C due to hx of bleeds. - SCDs Internal Medicine - H&P: HPI Chief complaint: nausea, vomiting, abd pain Admitted From: Emergency Dept Plans for Post Hospital Care: Home History of present illness: Ms. Parra is a 71 year old female who presents to ED from Dialysis with a complaint of n/v and abdominal pain of sudden onset. She states that she was at dialysis this afternoon and was told her BP dropped to 66/37 and her symptoms began. She is unsure how many episodes of vomiting there have been but states it has been constant as well as the pain. It is located diffusely and has no exacerbating or relieving symptoms. She has not seen any blood but states she is not sure. Denies any recent travel, sick contacts. She has never experienced this before. She also states she has been experiencing diarrhea which she describes as hot and watery for some time now. Unsure on exact timeline. In ED, she received dilaudid, zofran, and a bolus of fluids. She states the dilaudid does help but not for long. VSS, boarderline hypotensive. Labs show mild anemia at baseline, K low at 2.1. Lactic acid wnl. Basline kidney function. Lipase and amylase mildly elevated. Past Med Surg Social Fam HX - Past Medical History Medical history: asthma, COPD, GERD, hypertension, renal disease, thyroid disease Psychiatric history: no psych history - Past Surgical History Surgical History: appendectomy, cholecystectomy, colostomy, hysterectomy, other - Social History Smoking Status: Former smoker Smokeless Tobacco Status: No Alcohol use: none Drug use: none - Family History Mother Adopted: No Living Status: Hx Family Cardiac Disorders: Yes (VT/ Stroke) Hx Family Respiratory Disorders: No Hx Family Cancer: No Hx Family GI Disorders: No Hx Family Endocrine Disorder: No Hx Family Neuromuscular Disorders: No Hx Family Neurologic Disorders: No Hx Family HEENT Disorders: No Hx Family Autoimmune Disorders: No Father Adopted: No Living Status: Hx Family Cardiac Disorders: Yes (VT) Hx Family Respiratory Disorders: No Hx Family Cancer: No Hx Family GI Disorders: No Hx Family Endocrine Disorder: No Hx Family Neuromuscular Disorders: No Hx Family Neurologic Disorders: No Hx Family HEENT Disorders: No Hx Family Autoimmune Disorders: No Brother Living Status: Still Living Hx Family Cardiac Disorders: Yes Hx Family Respiratory Disorders: No Hx Family Endocrine Disorder: Yes Internal Medicine - H&P: Meds Amitriptyline [Elavil] 50 mg PO HS 09/19/15 [History] Cholecalciferol (Vitamin D3) [Vitamin D3] 5,000 unit PO DAILY #0 09/19/15 [ History] Ranitidine HCl [Zantac] 150 mg PO HS 09/19/15 [History] Cyanocobalamin (B-12) [Vitamin B12] 1,000 mcg IM QMONTH 02/21/17 [History] Levothyroxine Sodium [Synthroid] 300 mcg PO DAILY 02/21/17 [History] Mometasone/Formoterol [Dulera 100 Mcg/5 Mcg Inhaler] 2 puff IH BID 02/21/17 [ History] Lactobacillus [Culturelle] 1 each PO BID #60 cap.sprink 03/10/17 [Rx] Albuterol Neb [Proventil Neb] 2.5 mg IH Q6H PRN 06/30/17 [History] Lidocaine/Prilocaine CREAM [Emla] 1 appl TP AD PRN 06/30/17 [History] Renal Vitamin [Renal Caps Softgel] 1 mg PO DAILY 06/30/17 [History] Acetaminophen [Tylenol] 650 mg PO Q6HR PRN #20 tab 07/10/17 [Rx] Atorvastatin [Lipitor] 80 mg PO HS #14 tab 07/10/17 [Rx] Diltiazem CD (24hr) [Cardizem CD] 120 mg PO DAILY #14 07/10/17 [Rx] Nicotine Patch [Nicoderm] 21 mg TD DAILY #14 07/10/17 [Rx] Ondansetron ODT [Zofran ODT] 4 mg SL Q6HR #20 tab.rapdis 07/10/17 [Rx] GuaiFENesin ER [Mucinex] 600 mg PO BID PRN 07/16/17 [History] Menthol [[place]] 3.2 mg MM Q4H PRN 07/16/17 [History] Calcitriol [Rocaltrol] 0.25 mcg PO DAILY #15 capsule 08/06/17 [Rx] Ferrous Sulfate 325 mg PO DAILY@0800 #30 tablet 08/06/17 [Rx] OxyCODONE/APAP 5/325 [Percocet 5/325 MG] 1 each PO Q6HR PRN #15 tablet 08/06/17 [Rx] Sulfamethoxazole/Trimeth SS [Bactrim SS] 1 tab PO Q24H #12 tablet 08/06/17 [Rx] 3 Allergy/AdvReac Type Severity Reaction Status Date / Time codeine AdvReac Severe Vomiting Verified 03/06/17 15:22 naproxen [From Naprosyn] AdvReac Severe Vomiting Verified 03/06/17 15:22 All Systems PM: A 10-system review of systems was performed and is negative for pertinent findings except as documented above in the HPI. - Constitutional Constitutional: weight loss, no chills, no fatigue, no fever(s) - Cardiovascular Cardiovascular ROS IM: no chest pain, no diaphoresis, no dyspnea, no dyspnea on exertion, no palpitations - Respiratory Respiratory: cough (chronic), no dyspnea, no dyspnea on exertion - Gastrointestinal Gastrointestinal: abdominal pain, change in bowel habits, change in stool character, diarrhea, nausea, vomiting, no constipation, no hematemesis, no hematochezia, no melena - Constitutional Vitals: Temp Pulse Resp BP Pulse Ox 98.8 F 79 16 91/46 99 09/01/17 21:14 09/02/17 01:18 09/02/17 01:18 09/02/17 01:18 09/02/17 01:18 Exam: Gen.: Vitals noted. Moderate distress. AAOx3. Cachectic female with dried vomit on clothes. HEENT: oropharynx clear, Normocephalic, atraumatic, MMM Neck: Supple. No adenopathy. Cardiac: Irregularly irregular, no murmur, +S1/S2 Pulmonary: Mild rales diffusely, equal chest expansion Abdomen: soft, Very tender to palpation in all quadrants, BS noted, no guarding. [address] RLQ bag with blood present. MSK: ROM intact, no joint swelling noted Extremities: no BLE edema, nontender calf, no cyanosis or clubbing. Neuro: A&Ox3, moves all extremities, no focal deficits Psych: Appropriate mood and behavior Internal Med - H&P Results - Labs CBC & Chem 7: 09/01/17 22:05 09/01/17 22:05 <Jose R Hooks - Last Filed: 09/02/17 03:53> Date of Encounter: 09/02/17 Internal Medicine - H&P: HPI History of present illness: Ms. Parra is a 71 year old female All Systems PM: A 10-system review of systems was performed and is negative for pertinent findings except as documented above in the HPI. - Constitutional Vitals: Temp Pulse Resp BP Pulse Ox 98.8 F 79 20 96/48 98 09/01/17 21:14 09/02/17 01:18 09/02/17 03:13 09/02/17 03:13 09/02/17 03:13 Internal Med - H&P Results - Labs CBC & Chem 7: 09/01/17 22:05 09/01/17 22:05 - Attending Attestation I have seen, examined and discussed the plan with the resident and agree with findings and plan above.
[2017-09-02] MEDS: Ondansetron 4 MG/2 ML VIAL IVP PRN ×5 (03:48→21:09)
[2017-09-02] MEDS: 0.9 % Sodium Chloride 1,000 ML IVC SCH (05:04)
[2017-09-02 05:18] LABS: Immature Granulocytes % 0.6 % (0-4); Mean Corpuscular Volume 91.3 fL (83.0-100.0); Red Cell Distribution Width 18.6 % (11.5-14.5)
[2017-09-02 05:19] LABS: Basophils % 0.2 %; Eosinophils # 0.1 K/mcL (0.0-0.6); Eosinophils % 1.3 %; Hematocrit 30.3 % (35.3-44.9); Hemoglobin 9.6 g/dL (11.5-15.4); Lymphocytes # 1.5 K/mcL (0.6-4.6); Lymphocytes % 18.6 %; Mean Corpuscular HGB Conc 31.7 g/dL (31.6-35.5); Mean Corpuscular Hemoglobin 28.9 pg (28.0-33.3); Mean Platelet Volume 11.5 fL (9.4-12.4); Monocytes # 0.4 K/mcL (0.0-1.3); Monocytes % 4.4 %; Neutrophils # 6.1 K/mcL (1.6-8.9); Red Blood Count 3.32 M/mcL (3.82-4.97); Segmented Neutrophils % 74.9 %
[2017-09-02 05:20] LABS: Platelet Count 95 K/mcL (140-400)
[2017-09-02 05:22] LABS: INR 1.1; Prothrombin Time 12.4 Seconds (9.4-12.1)
[2017-09-02 05:30] LABS: Calcium 7.2 mg/dL (8.6-10.8); Magnesium 1.9 mg/dL (1.6-2.6)
--- NOTE | 2017-09-02 06:00 | Emergency Department Note ---
Disposition Clinical Impression: Colitis, Hypokalemia Pancreatitis Qualifiers: Chronicity: acute Pancreatitis type: other Acute pancreatitis complication: unspecified Qualified Code(s): K85.80 - Other acute pancreatitis without necrosis or infection Disposition: Admitted As Inpatient General Adult HPI - General Chief complaint: ED Abdominal Pain Stated complaint: nausea/vomiting/diarrhea Time Seen by Provider: 09/01/17 21:11 Source: EMS Limitations: no limitations Nursing Notes Reviewed: Yes Vital Signs Reviewed: Yes - History of Present Illness HPI Narrative: This is a 71-year-old female who presents with concern for vomiting following dialysis. She does have a history of colostomy as well as urostomy. She had a uncomplicated dialysis treatment today but then presented with vomiting and nausea. She has had increased ostomy output. She has diffuse abdominal tenderness and ongoing complaints of nausea. She has no abdominal trauma, sick or ill contacts, recent hospitalizations. She does admit to previous cholecystectomy. General: No acute distress HEENT: Pupils equal and reactive to light, extraoccular muscle movement is normal, TMS are clear bilaterally. Heart: RRR, No murmor rub or gallop Lungs: lungs clear, no wheezing, rales or ronchi. ABD: There is evidence of colostomy as well as urostomy with multiple previous abdominal surgical scars. Extremities: No cyanosis, clubbing or edema Neuro: CN 2-12 in tact, no focal deficit. strength 5/5. Medical decision making Fairly complicated end-stage renal failure patient with vomiting following dialysis today. Subsequent found to be profoundly hypoglycemic and hypomagnesemic with elevated lipase. Additionally found to have colitis. Lactate is normal so I do doubt ischemic Lantus at this time or rare would recommend trending of the lactate. Initially I did start antibiotics for possible causes of infectious colitis with Cipro and Flagyl. The white blood cell count was elevated. Magnesium and potassium were replaced. Her calcium level was low however given her corrected calcium with albumin I do not suspect she will need calcium replacement at this time. We could consider checking ionized calcium. Given her profound electrolyte disturbance accompanied with acute pancreatitis in the setting of colitis as well as pneumobilia I would proceed with admission for further evaluation and management. Pain Scale: 7 - Related Data Home Medications Medication Instructions Recorded Confirmed Amitriptyline [Elavil] 50 mg PO HS 09/19/15 07/16/17 Cholecalciferol (Vitamin D3) 5,000 unit PO DAILY #0 09/19/15 07/16/17 [Vitamin D3] Ranitidine HCl [Zantac] 150 mg PO HS 09/19/15 07/16/17 Cyanocobalamin (B-12) [Vitamin B12] 1,000 mcg IM QMONTH 02/21/17 07/16/17 Levothyroxine Sodium [Synthroid] 300 mcg PO DAILY 02/21/17 07/16/17 Mometasone/Formoterol [Dulera 100 2 puff IH BID 02/21/17 07/16/17 Mcg/5 Mcg Inhaler] Albuterol Neb [Proventil Neb] 2.5 mg IH Q6H PRN 06/30/17 07/16/17 Lidocaine/Prilocaine CREAM [Emla] 1 appl TP AD PRN 06/30/17 07/16/17 Renal Vitamin [Renal Caps Softgel] 1 mg PO DAILY 06/30/17 07/16/17 GuaiFENesin ER [Mucinex] 600 mg PO BID PRN 07/16/17 07/16/17 Menthol [[place]] 3.2 mg MM Q4H PRN 07/16/17 07/16/17 Previous Rx's Medication Instructions Recorded Lactobacillus [Culturelle] 1 each PO BID #60 cap.sprink 03/10/17 Acetaminophen [Tylenol] 650 mg PO Q6HR PRN #20 tab 07/10/17 Atorvastatin [Lipitor] 80 mg PO HS #14 tab 07/10/17 Diltiazem CD (24hr) [Cardizem CD] 120 mg PO DAILY #14 07/10/17 Nicotine Patch [Nicoderm] 21 mg TD DAILY #14 07/10/17 Ondansetron ODT [Zofran ODT] 4 mg SL Q6HR #20 tab.rapdis 07/10/17 Calcitriol [Rocaltrol] 0.25 mcg PO DAILY #15 capsule 08/06/17 Ferrous Sulfate 325 mg PO DAILY@0800 #30 tablet 08/06/17 OxyCODONE/APAP 5/325 [Percocet 1 each PO Q6HR PRN #15 tablet 08/06/17 5/325 MG] Sulfamethoxazole/Trimeth SS 1 tab PO Q24H #12 tablet 08/06/17 [Bactrim SS] Allergies Allergy/AdvReac Type Severity Reaction Status Date / Time codeine AdvReac Severe Vomiting Verified 03/06/17 15:22 naproxen [From Naprosyn] AdvReac Severe Vomiting Verified 03/06/17 15:22 All systems ED: reviewed and negative except as stated. Past Medical History - Past Medical History Medical history: Reports: asthma, COPD, GERD, hypertension, renal disease, thyroid disease Surgical history: Reports: appendectomy, cholecystectomy, colostomy, hysterectomy, other Psychiatric history: Reports: no psych history - Social History Smoking Status: Former smoker Smokeless Tobacco Status: No Alcohol use: Reports: none Drug use: Reports: none Physical Exam - General Limitations: no limitations General appearance: alert, in no apparent distress Course Vital Signs Temperature 98.8 F 09/01/17 21:14 Pulse Rate 76 09/01/17 21:14 Respiratory Rate 18 09/01/17 21:14 Blood Pressure 97/57 09/01/17 21:14 O2 Sat by Pulse Oximetry 95 09/01/17 21:14 Temperature 97.8 F 09/02/17 05:31 Pulse Rate 77 09/02/17 05:31 Respiratory Rate 20 09/02/17 05:31 Blood Pressure 121/62 09/02/17 05:31 O2 Sat by Pulse Oximetry 96 09/02/17 05:31 Oxygen Delivery Oxygen Delivery Nasal Cannula Medical Decision Making - Lab Data Result diagrams: 09/02/17 05:00 09/02/17 05:00 Lab Results 09/01/17 09/01/17 09/01/17 Range/Units 22:05 22:05 22:05 WBC 7.6 (4.3-11.1) K/mcL RBC 3.23 L (3.82-4.97) M/mcL Hgb 9.5 L (11.5-15.4) g/dL Hct 28.9 L (35.3-44.9) % MCV 89.5 (83.0-100.0) fL MCH 29.4 (28.0-33.3) pg MCHC 32.9 (31.6-35.5) g/dL RDW 18.6 H (11.5-14.5) % Plt Count 100 L (140-400) K/mcL MPV 11.0 (9.4-12.4) fL Immature Gran % 0.8 (0-4) % Seg Neutrophils % 75.2 % Lymphocytes % 19.4 % Monocytes % 3.8 % Eosinophils % 0.7 % Basophils % 0.1 % Neutrophils # 5.7 (1.6-8.9) K/mcL Lymphocytes # 1.5 (0.6-4.6) K/mcL Monocytes # 0.3 (0.0-1.3) K/mcL Eosinophils # 0.1 (0.0-0.6) K/mcL Basophils # 0.0 (0.0-0.2) K/mcL PT 13.3 H (9.4-12.1) Seconds INR 1.2 Sodium 138 (136-145) mEq/L Potassium 2.1 L* (3.5-4.5) mEq/L Chloride 100 (98-109) mEq/L Carbon Dioxide 24 (19-29) mEq/L BUN 17 (7-20) mg/dL Creatinine 5.19 H (0.57-1.11) mg/dL Est GFR ( Amer) 10 L (> 60) Est GFR (Non-Af Amer) 8 L (> 60) BUN/Creatinine Ratio 3 L (6-26) Glucose 97 (70-99) mg/dL Calculated Osmolality 287 (280-300) Lactic Acid (0.5-2.2) mmol/L Calcium 7.0 L (8.6-10.8) mg/dL Magnesium 1.5 L (1.6-2.6) mg/dL Total Bilirubin 0.4 (0.2-1.2) mg/dL Direct Bilirubin 0.2 (0.0-0.5) mg/dL Indirect Bilirubin 0.2 (0.0-1.2) mg/dL AST 12 (5-34) Units/L ALT 8 (0-55) Units/L Alkaline Phosphatase 74 (38-126) Units/L Troponin I (0-0.03) ng/mL Serum Total Protein 6.1 (6.0-8.3) g/dL Albumin 2.5 L (3.5-5.0) g/dL Globulin 3.6 H (2.4-3.5) g/dL Albumin/Globulin Ratio 0.7 L (1.1-2.2) Amylase 174 H (25-125) Units/L Lipase 214 H (8-78) Units/L 09/01/17 09/01/17 Range/Units 22:05 22:05 WBC (4.3-11.1) K/mcL RBC (3.82-4.97) M/mcL Hgb (11.5-15.4) g/dL Hct (35.3-44.9) % MCV (83.0-100.0) fL MCH (28.0-33.3) pg MCHC (31.6-35.5) g/dL RDW (11.5-14.5) % Plt Count (140-400) K/mcL MPV (9.4-12.4) fL Immature Gran % (0-4) % Seg Neutrophils % % Lymphocytes % % Monocytes % % Eosinophils % % Basophils % % Neutrophils # (1.6-8.9) K/mcL Lymphocytes # (0.6-4.6) K/mcL Monocytes # (0.0-1.3) K/mcL Eosinophils # (0.0-0.6) K/mcL Basophils # (0.0-0.2) K/mcL PT (9.4-12.1) Seconds INR Sodium (136-145) mEq/L Potassium (3.5-4.5) mEq/L Chloride (98-109) mEq/L Carbon Dioxide (19-29) mEq/L BUN (7-20) mg/dL Creatinine (0.57-1.11) mg/dL Est GFR ( Amer) (> 60) Est GFR (Non-Af Amer) (> 60) BUN/Creatinine Ratio (6-26) Glucose (70-99) mg/dL Calculated Osmolality (280-300) Lactic Acid 0.8 (0.5-2.2) mmol/L Calcium (8.6-10.8) mg/dL Magnesium (1.6-2.6) mg/dL Total Bilirubin (0.2-1.2) mg/dL Direct Bilirubin (0.0-0.5) mg/dL Indirect Bilirubin (0.0-1.2) mg/dL AST (5-34) Units/L ALT (0-55) Units/L Alkaline Phosphatase (38-126) Units/L Troponin I 0.06 H* (0-0.03) ng/mL Serum Total Protein (6.0-8.3) g/dL Albumin (3.5-5.0) g/dL Globulin (2.4-3.5) g/dL Albumin/Globulin Ratio (1.1-2.2) Amylase (25-125) Units/L Lipase (8-78) Units/L
[2017-09-02] MEDS: *HR* Heparin 5,000 UNIT/ML VIAL SQ SCH ×2 (06:33→16:51)
[2017-09-02] MEDS: *HR* HYDROmorphone (PF) 1 MG/ML SYRINGE IVP PRN ×4 (06:33→21:09)
[2017-09-02] MEDS: *HR* OxyCODONE Immed Rel 5 MG TABLET PO PRN (09:01)
[2017-09-02] MEDS: MetroNIDAZOLE 500 MG/100 ML 500 MG/100 ML BAG IVPB SCH ×3 (09:02→23:40)
[2017-09-02] MEDS: Diltiazem CD (24hr) 120 MG CAPSULE PO SCH (10:24)
--- NOTE | 2017-09-02 11:32 | Nephrology Consult Note ---
Date of Encounter: 09/02/17 Time of Encounter: 11:29 Assessment and Plan (1) ESRD (end stage renal disease) on dialysis Current Visit: No Status: Chronic Plan for HD tomorrow Renal diet when diet advanced Strict I/Os Avoid nephrotoxins if possible (2) Colitis Current Visit: Yes Status: Acute per primary team (3) Hypokalemia Current Visit: Yes Status: Acute Replaced History of Present Illness - Reason for Consult Consult date: 09/02/17 - Chief Complaint ESRD on dialysis, colitis - History of Present Illness Ms. Parra is a 71 year old female well known to our practice who presents to ED with a complaint of n/v and abdominal pain of sudden onset. Patient was at dialysis yesterday and started vomiting; patient has had multiple recent hospitalizations and has not felt well for some time. Patient received 2 1/2 hours of dialysis yesterday. Nephrology has been consulted to manage her HD while hospitalized. Past Med Surg Social Fam HX - Past Medical History Medical history: asthma, COPD, GERD, hypertension, renal disease, thyroid disease Psychiatric history: no psych history - Past Surgical History Surgical History: appendectomy, cholecystectomy, colostomy, hysterectomy, other - Social History Smoking Status: Former smoker Smokeless Tobacco Status: No Alcohol use: none Drug use: none - Family History Mother Adopted: No Living Status: Hx Family Cardiac Disorders: Yes (MS/ Stroke) Hx Family Respiratory Disorders: No Hx Family Cancer: No Hx Family GI Disorders: No Hx Family Endocrine Disorder: No Hx Family Neuromuscular Disorders: No Hx Family Neurologic Disorders: No Hx Family HEENT Disorders: No Hx Family Autoimmune Disorders: No Father Adopted: No Living Status: Hx Family Cardiac Disorders: Yes (MS) Hx Family Respiratory Disorders: No Hx Family Cancer: No Hx Family GI Disorders: No Hx Family Endocrine Disorder: No Hx Family Neuromuscular Disorders: No Hx Family Neurologic Disorders: No Hx Family HEENT Disorders: No Hx Family Autoimmune Disorders: No Brother Living Status: Still Living Hx Family Cardiac Disorders: Yes Hx Family Respiratory Disorders: No Hx Family Endocrine Disorder: Yes Medications and Allergies Amitriptyline [Elavil] 50 mg PO HS 09/19/15 [History] Cholecalciferol (Vitamin D3) [Vitamin D3] 5,000 unit PO DAILY #0 09/19/15 [ History] Ranitidine HCl [Zantac] 150 mg PO HS 09/19/15 [History] Cyanocobalamin (B-12) [Vitamin B12] 1,000 mcg IM QMONTH 02/21/17 [History] Levothyroxine Sodium [Synthroid] 300 mcg PO DAILY 02/21/17 [History] Mometasone/Formoterol [Dulera 100 Mcg/5 Mcg Inhaler] 2 puff IH BID 02/21/17 [ History] Lactobacillus [Culturelle] 1 each PO BID #60 cap.sprink 03/10/17 [Rx] Albuterol Neb [Proventil Neb] 2.5 mg IH Q6H PRN 06/30/17 [History] Lidocaine/Prilocaine CREAM [Emla] 1 appl TP AD PRN 06/30/17 [History] Renal Vitamin [Renal Caps Softgel] 1 mg PO DAILY 06/30/17 [History] Acetaminophen [Tylenol] 650 mg PO Q6HR PRN #20 tab 07/10/17 [Rx] GuaiFENesin ER [Mucinex] 600 mg PO BID PRN 07/16/17 [History] Menthol [[place]] 3.2 mg MM Q4H PRN 07/16/17 [History] Calcitriol [Rocaltrol] 0.25 mcg PO DAILY #15 capsule 08/06/17 [Rx] Ferrous Sulfate 325 mg PO DAILY@0800 #30 tablet 08/06/17 [Rx] Sulfamethoxazole/Trimeth SS [Bactrim SS] 1 tab PO Q24H #12 tablet 08/06/17 [Rx] 3 Allergy/AdvReac Type Severity Reaction Status Date / Time codeine AdvReac Severe Vomiting Verified 03/06/17 15:22 naproxen [From Naprosyn] AdvReac Severe Vomiting Verified 03/06/17 15:22 Review of Systems All Systems: reviewed and no additional remarkable complaints except as stated Constitutional: lethargy, malaise, no chills, no fever(s) Cardiovascular: radiating pain (abdomen and legs), no chest pain, no dyspnea Respiratory: no dyspnea Gastrointestinal: abdominal pain, cramping, diarrhea, nausea, vomiting Neurological: no behavioral changes Exam - Vital Signs Vital signs: Initial Vital Signs Temp Pulse Resp BP Pulse Ox 98.8 F 76 18 97/57 95 09/01/17 21:14 09/01/17 21:14 09/01/17 21:14 09/01/17 21:14 09/01/17 21:14 Vital Signs - Last 8 Hours Temp Pulse Resp BP Pulse Ox 09/02/17 06:32 96.5 F L 73 14 106/84 97 09/02/17 05:31 97.8 F 77 20 121/62 96 09/02/17 04:34 14 96/48 Intake and Output 09/01/17 09/02/17 09/02/17 23:59 07:59 15:59 Output Total 200 / 200 Balance -200 / -200 Output: Emesis 200 / 200 - General Appearance General appearance: chronically ill, fatigue, frail EENT: ATNC, mucous membranes moist, hearing intact, vision intact Neck: supple Respiratory: clear Cardiology: no edema, normal S1, normal S2 Gastrointestinal: tenderness, no guarding Integumentary: warm and dry Neurologic: alert and oriented x3 Psychiatric: cooperative Results - Lab Results 09/02/17 05:00 09/02/17 05:00 Most recent lab results Calcium 7.2 mg/dL (8.6-10.8) L 09/02/17 05:00 Phosphorus 7.0 mg/dL (2.3-4.7) H 09/02/17 05:00 Magnesium 1.9 mg/dL (1.6-2.6) 09/02/17 05:00 Consult Discharge Plan - Plan Referrals: Na Johansen, TYLER [Primary Care Provider] -
--- NOTE | 2017-09-02 17:00 | Event Note ---
Date of Encounter: 09/02/17 Time of Encounter: 15:45 71-year-old female with history of end-stage renal disease on hemodialysis, status post urostomy and colostomy, paroxysmal atrial fibrillation, admitted with abdominal pain due to reach her dialysis session was discontinued prior to completion yesterday. CT abdomen/pelvis done in the emergency room showed changes suggestive of colitis in splenic flexure. Patient seen and examined at bedside. Reports feeling hungry, requests for follow-up. Continues to have chronic bilateral leg pains. Chest is clear to auscultation, S1, S2 heard. Abdomen is soft, nontender, left lower quadrant colostomy and right lower quadrant urostomy in place. Acute colitis-start clear liquid diet as tolerated. Continue IV antibiotics- ciprofloxacin and Flagyl. Follow up stool studies. End-stage renal disease on hemodialysis-nephrology consulted For dialysis needs.
[2017-09-03 04:27] LABS: Lymphocytes % 19.3 %; Red Cell Distribution Width 18.4 % (11.5-14.5)
[2017-09-03 04:29] LABS: Basophils % 0.1 %; Eosinophils # 0.2 K/mcL (0.0-0.6); Eosinophils % 2.5 %; Hematocrit 25.9 % (35.3-44.9); Hemoglobin 8.2 g/dL (11.5-15.4); Immature Granulocytes % 0.4 % (0-4); Immature Platelets 5.9 % (1.1-6.1); Lymphocytes # 1.3 K/mcL (0.6-4.6); Mean Corpuscular HGB Conc 31.7 g/dL (31.6-35.5); Mean Corpuscular Volume 91.5 fL (83.0-100.0); Mean Platelet Volume 11.8 fL (9.4-12.4); Monocytes # 0.2 K/mcL (0.0-1.3); Monocytes % 3.5 %; Neutrophils # 5.1 K/mcL (1.6-8.9); Red Blood Count 2.83 M/mcL (3.82-4.97); Segmented Neutrophils % 74.2 %
[2017-09-03 04:47] LABS: Albumin 2.3 g/dL (3.5-5.0); Calcium 7.8 mg/dL (8.6-10.8); Magnesium 1.6 mg/dL (1.6-2.6); Phosphorous 9.1 mg/dL (2.3-4.7); Potassium 2.9 mEq/L (3.5-4.5)
[2017-09-03 05:18] LABS: Platelet Count 81 K/mcL (140-400)
[2017-09-03 05:58] LABS: Anisocytosis 1+ (Not Present); Platelet Estimate Decreased (Normal)
[2017-09-03] MEDS: *HR* Heparin 5,000 UNIT/ML VIAL SQ SCH ×2 (06:05→17:47)
[2017-09-03] MEDS ORDERED: 0.9 % Sodium Chloride 250 ML IVC PRN (07:22)
[2017-09-03] MEDS: MetroNIDAZOLE 500 MG/100 ML 500 MG/100 ML BAG IVPB SCH ×3 (08:01→23:48)
[2017-09-03] MEDS: Diltiazem CD (24hr) 120 MG CAPSULE PO SCH (08:01)
[2017-09-03] MEDS: Ondansetron 4 MG/2 ML VIAL IVP PRN ×3 (08:12→19:52)
[2017-09-03] MEDS ORDERED: Albumin 25% 12.5gm/50mL 12.5 GM/50 ML IV.SOLN IVPB PRN ×2 (09:42→10:20)
[2017-09-03] MEDS ORDERED: Albumin 25% 12.5gm/50mL 12.5 GM/50 ML IV.SOLN ONE ×2 (09:47→10:07)
--- NOTE | 2017-09-03 10:54 | Nephrology Progress Note ---
Date of Encounter: 09/03/17 Time of Encounter: 10:52 - Assessment and Plan (1) Colitis Current Visit: Yes Status: Acute Source of the abdominal pain. Antibiotics per primary team. Seems to be improving. Continue current care. (2) ESRD (end stage renal disease) on dialysis Current Visit: No Status: Chronic HD MWF. Renal vitamins. Renal dose medications. Renal diet. Additional dialysis as needed. (3) Frail elderly Current Visit: No Status: Acute Per primary team. (4) Hyperphosphatemia Current Visit: No Status: Acute Start phosphate binder and follow phosphorus. Check PTH and vitamin D. Renal diet. (5) Hypocalcemia Current Visit: No Status: Acute Check ionized calcium and replace as needed. (6) Hypokalemia Current Visit: Yes Status: Acute Higher potassium bath on dialysis. Subjective Principal diagnosis: ESRD Interval history: Patient seen on dialysis. She reports that her abdominal pain is better. Still has leg discomfort. Objective - Vital Signs Vital signs: Vital Signs Temp Pulse Resp BP Pulse Ox 09/03/17 06:35 97.8 F 69 16 94/54 97 09/03/17 04:17 97.8 F 67 12 95/56 97 09/02/17 23:32 97.8 F 72 16 94/51 97 09/02/17 18:42 98.3 F 77 16 87/48 95 09/02/17 15:02 97.8 F 72 16 91/47 99 09/02/17 13:04 100/78 09/02/17 12:49 97.6 F 09/02/17 12:40 75 16 88/49 97 Intake and Output 09/02/17 09/03/17 09/03/17 23:59 07:59 15:59 Intake Total 100 / 100 300 / 300 720 / 720 Balance 100 / 100 300 / 300 720 / 720 Intake: IV Fluids 100 / 100 300 / 300 Cipro Premix 400 MG/200 ML 400 200 / 200 mg In 200 ml @ 200 mls/hr IVPB Q24H [facility] Rx#:[id number] Flagyl Premix 500 MG/100 ML 500 100 / 100 100 / 100 mg In 100 ml @ 100 mls/hr IVPB Q8HR [facility]IANO Rx#:[id number] Oral 720 / 720 Other: Meal Breakfast Weight 60.328 kg Blood Glucose* 149 108 Patient Weight 09/03/17 23:59 Weight 60.328 kg - General Appearance General appearance: Present: well-developed, chronically ill, frail EENT: Present: ATNC Neck: Present: supple Respiratory: Present: clear Cardiology: Present: no edema, regular rate Integumentary: Present: warm and dry Neurologic: Present: alert and oriented x3 Psychiatric: Present: mood/affect appropriate - Lab 09/03/17 04:12 09/03/17 04:12 Most recent lab results Calcium 7.8 mg/dL (8.6-10.8) L 09/03/17 04:12 Phosphorus 9.1 mg/dL (2.3-4.7) H 09/03/17 04:12 Magnesium 1.6 mg/dL (1.6-2.6) 09/03/17 04:12 Consult Discharge Plan - Plan Referrals: Na Johansen, INJECTION MOLDING ENGINEER [Primary Care Provider] -
[2017-09-03] MEDS ORDERED: 0.9 % Sodium Chloride 2,000 ML ONE (12:42)
[2017-09-03] MEDS: *HR* OxyCODONE Immed Rel 5 MG TABLET PO PRN (13:30)
[2017-09-03] MEDS: Calcium Acetate 667 MG CAPSULE PO SCH ×2 (13:30→17:47)
[2017-09-03] MEDS: Renal Vitamin 1 MG CAPSULE PO SCH (13:30)
[2017-09-03] MEDS: *HR* Morphine 2 MG/ML SYRINGE IVP PRN ×2 (15:35→19:52)
[2017-09-03 17:02] LABS: Adenovirus F 40/41 PCR Not detected (Not detect); Astrovirus PCR Not detected (Not detect); C.difficile Toxin A/B by PCR Not detected (Not detect); Campylobacter by PCR Not detected (Not detect); Cryptosporidium by PCR Not detected (Not detect); Cyclospora cayetanensis PCR Not detected (Not detect); E. coli O157 by PCR Not detected (Not detect); Entamoeba histolytica PCR Not detected (Not detect); Enteroaggregative E.coli(EAEC) Not detected (Not detect); Enteropathogenic E.coli(EPEC) Not detected (Not detect); Enterotoxigenic E.coli (ETEC) Not detected (Not detect); Giardia lamblia PCR Not detected (Not detect); Norovirus GI/GII PCR Not detected (Not detect); Plesiomonas shigelloides PCR Not detected (Not detect); Rotavirus A PCR Not detected (Not detect); Salmonella PCR Not detected (Not detect); Sapovirus PCR Not detected (Not detect); Shig/EnteroinvasiveE coli EIEC Not detected (Not detect); Shigalike tox-prod E coli STEC Not detected (Not detect); Vibrio PCR Not detected (Not detect); Vibrio cholerae PCR Not detected (Not detect); Yersinia enterocolitica PCR Not detected (Not detect)
--- NOTE | 2017-09-03 17:45 | Internal Med Progress Note ---
Date of Encounter: 09/03/17 Time of Encounter: 14:45 - Assessment and plan (1) Colitis Current Visit: Yes Status: Acute Assessment and plan: Patient presented with abdominal pain, CT abdomen/pelvis showed changes suggestive of colitis around splenic flexure. Continue empiric IV antibiotics- ciprofloxacin and Flagyl. Currently improving. Advance diet to soft diet. Pain control with when necessary IV morphine and oral Percocet. Hold Dilaudid at this time. (2) Hypokalemia Current Visit: Yes Status: Acute Assessment and plan: Continues to have chronic hypokalemia, likely due to GI losses through ileostomy. (3) COPD (chronic obstructive pulmonary disease) Current Visit: Yes Status: Chronic Assessment and plan: Continues to smoke. Continue when necessary bronchodilators, inhaled corticosteroids, supplemental oxygen and supportive care. Not in acute exacerbation. Qualifiers: COPD type: unspecified COPD Qualified Code(s): J44.9 - Chronic obstructive pulmonary disease, unspecified (4) Anemia in CKD (chronic kidney disease) Current Visit: Yes Status: Chronic Qualifiers: Chronic kidney disease stage: on chronic dialysis Qualified Code(s): N18.6 - End stage renal disease; D63.1 - Anemia in chronic kidney disease; D63.1 - Anemia in chronic kidney disease; Z99.2 - Dependence on renal dialysis; Z99.2 - Dependence on renal dialysis; Z99.2 - Dependence on renal dialysis; Z99.2 - Dependence on renal dialysis (5) Ileostomy in place Current Visit: Yes Status: Chronic (6) ESRD (end stage renal disease) on dialysis Current Visit: Yes Status: Chronic Assessment and plan: Nephrology consulted for dialysis needs, underwent hemodialysis today per schedule. Serum potassium to be adjusted during dialysis. (7) Tobacco abuse Current Visit: Yes Status: Chronic Assessment and plan: Reports having quit smoking just before this admission. Will use nicotine transdermal patch as needed. (8) Leg pain Current Visit: Yes Status: Chronic Qualifiers: Laterality: bilateral Qualified Code(s): M79.604 - Pain in right leg; M79.605 - Pain in left leg (9) Chronic diarrhea Current Visit: Yes Status: Chronic (10) Hypothyroid Current Visit: Yes Status: Chronic Assessment and plan: Continue levothyroxine. Qualifiers: Hypothyroidism type: unspecified Qualified Code(s): E03.9 - Hypothyroidism , unspecified (11) Atrial fibrillation Current Visit: Yes Status: Chronic Assessment and plan: Currently rate controlled. Continue beta lex. Not on long-term anticoagulation due to risk of falls. Qualifiers: Atrial fibrillation type: persistent Qualified Code(s): I48.1 - Persistent atrial fibrillation - Subjective Interval history: Feels slightly better. Continues to report abdominal and bilateral leg pain, requests for solid food. Has chronic high output from colostomy. Went for hemodialysis today. - Constitutional Vitals: Temp Pulse Resp BP Pulse Ox 97.8 F 79 16 103/48 99 09/03/17 14:51 09/03/17 14:51 09/03/17 14:51 09/03/17 14:51 09/03/17 14:51 General appearance: Present: A&O X 3, answers questions appropriately - Respiratory Respiratory exam: Present: CTAB (Bilateral coarse rhonchorous breath sounds), rales. Absent: accessory muscle use, rhonchi, wheezes - Cardiovascular Cardiovascular exam: Present: RRR, +S1, +S2. Absent: diastolic murmur, gallop, rubs, systolic murmur - GI/Abdominal GI/Abdominal exam: Present: normal bowel sounds, soft (Left-sided colostomy, right lower quadrant urostomy in place. Abdomen generally nontender.), no peritoneal signs. Absent: distended, tenderness - Extremities Exam Extremities exam: Present: full ROM, tenderness, warm, radial pulses palpable and symmetrical. Absent: calf tenderness, cyanotic, pedal edema - Neurological Exam Neurological exam: Present: CN II-XII intact, oriented X3, no focal deficits. Absent: pronater drift, facial droop, speech deficit Internal Medicine: Result - Labs CBC & Chem 7: 09/03/17 04:12 09/03/17 04:12 Labs: Short CBC 09/03/17 Range/Units 04:12 WBC 6.9 (4.3-11.1) K/mcL Hgb 8.2 L (11.5-15.4) g/dL Hct 25.9 L (35.3-44.9) % Plt Count 81 L (140-400) K/mcL Neutrophils # 5.1 (1.6-8.9) K/mcL BMP 09/03/17 04:12 Sodium 135 L Potassium 2.9 L Chloride 101 Carbon Dioxide 20 BUN 25 H Creatinine 6.99 H Glucose 83 Calcium 7.8 L Liver Function 09/03/17 Range/Units 04:12 Albumin 2.3 L (3.5-5.0) g/dL - ABG Interpretation ABG results: PT/INR, D-dimer PT 12.4 Seconds (9.4-12.1) H 09/02/17 05:00 Consult Discharge Plan - Plan Referrals: Na Johansen CNP [Primary Care Provider] - 09/17/17 1:00 pm
[2017-09-04] MEDS: Ondansetron 4 MG/2 ML VIAL IVP PRN ×4 (00:54→20:30)
[2017-09-04] MEDS: *HR* Morphine 2 MG/ML SYRINGE IVP PRN ×4 (00:54→20:30)
[2017-09-04] MEDS: *HR* OxyCODONE Immed Rel 5 MG TABLET PO PRN ×3 (03:30→22:28)
[2017-09-04 04:23] LABS: Hemoglobin 8.3 g/dL (11.5-15.4); Red Cell Distribution Width 18.7 % (11.5-14.5)
[2017-09-04 04:25] LABS: Eosinophils # 0.1 K/mcL (0.0-0.6); Eosinophils % 2.1 %; Hematocrit 26.3 % (35.3-44.9); Immature Granulocytes % 0.2 % (0-4); Immature Platelets 3.9 % (1.1-6.1); Lymphocytes # 1.1 K/mcL (0.6-4.6); Mean Corpuscular HGB Conc 31.6 g/dL (31.6-35.5); Mean Corpuscular Hemoglobin 29.6 pg (28.0-33.3); Mean Corpuscular Volume 93.9 fL (83.0-100.0); Mean Platelet Volume 11.7 fL (9.4-12.4); Monocytes # 0.2 K/mcL (0.0-1.3); Monocytes % 3.7 %; Neutrophils # 3.7 K/mcL (1.6-8.9)
[2017-09-04 04:31] LABS: Platelet Count 78 K/mcL (140-400)
[2017-09-04 04:41] LABS: Albumin 2.6 g/dL (3.5-5.0); Calcium 7.7 mg/dL (8.6-10.8); Magnesium 1.5 mg/dL (1.6-2.6); Potassium 3.5 mEq/L (3.5-4.5)
[2017-09-04 04:45] LABS: Phosphorous 4.5 mg/dL (2.3-4.7)
[2017-09-04] MEDS: *HR* Heparin 5,000 UNIT/ML VIAL SQ SCH ×2 (06:06→16:19)
[2017-09-04] MEDS: MetroNIDAZOLE 500 MG/100 ML 500 MG/100 ML BAG IVPB SCH ×2 (08:14→16:18)
[2017-09-04] MEDS: Diltiazem CD (24hr) 120 MG CAPSULE PO SCH (08:15)
[2017-09-04] MEDS: Renal Vitamin 1 MG CAPSULE PO SCH (08:15)
[2017-09-04] MEDS: Calcium Acetate 667 MG CAPSULE PO SCH ×3 (08:15→16:19)
--- NOTE | 2017-09-04 08:42 | Nephrology Progress Note ---
Date of Encounter: 09/04/17 Time of Encounter: 08:39 - Assessment and Plan (1) ESRD (end stage renal disease) on dialysis Current Visit: Yes Status: Chronic Plan for HD tomorrow Renal diet-ordered Avoid nephrotoxins if possible (2) Colitis Current Visit: Yes Status: Acute per primary team (3) Hypokalemia Current Visit: Yes Status: Acute (4) Hypocalcemia Current Visit: No Status: Acute Ca+ 7.7 Ionized Ca+ 0.91 Subjective Principal diagnosis: ESRD Interval history: Patient seen and examined. States she is feeling better but still c/o bilat leg pain Objective - Vital Signs Vital signs: Vital Signs Temp Pulse Resp BP Pulse Ox 09/04/17 06:48 98.7 F 81 16 100/63 96 09/04/17 03:25 98.1 F 84 16 96/54 94 09/03/17 22:59 98.3 F 78 16 103/55 94 09/03/17 19:20 98.3 F 80 16 80/47 96 09/03/17 14:51 97.8 F 79 16 103/48 99 09/03/17 13:02 97.2 F L 18 97/44 09/03/17 12:50 91/37 09/03/17 12:35 90/40 09/03/17 12:20 96/41 09/03/17 12:05 95/40 09/03/17 11:50 90/34 09/03/17 11:35 94/31 09/03/17 11:20 103/50 09/03/17 11:05 98/51 09/03/17 10:50 90/44 09/03/17 10:35 95/51 09/03/17 10:20 98/46 09/03/17 10:05 74/34 09/03/17 09:50 82/37 09/03/17 09:35 80/36 09/03/17 09:20 97.8 F 18 90/50 Intake and Output 09/03/17 09/04/17 09/04/17 23:59 07:59 15:59 Intake Total 100 / 100 100 / 100 Balance 100 / 100 100 / 100 Intake: IV Fluids 100 / 100 100 / 100 Flagyl Premix 500 MG/100 ML 500 100 / 100 100 / 100 mg In 100 ml @ 100 mls/hr IVPB Q8HR [facility] Rx#:[id number] Other: Weight 61.008 kg Blood Glucose* 141 112 Patient Weight 09/04/17 23:59 Weight 61.008 kg - General Appearance General appearance: Present: cachectic, chronically ill, frail EENT: Present: ATNC, mucous membranes moist, hearing intact, vision intact Neck: Present: supple Respiratory: Present: clear Cardiology: Present: no edema, normal S1, normal S2 Gastrointestinal: Present: no tenderness, no guarding Integumentary: Present: warm and dry Neurologic: Present: alert and oriented x3 Psychiatric: Present: mood/affect appropriate, cooperative - Lab 09/04/17 04:10 09/04/17 04:10 Most recent lab results Calcium 7.7 mg/dL (8.6-10.8) L 09/04/17 04:10 Phosphorus 4.5 mg/dL (2.3-4.7) D 09/04/17 04:10 Magnesium 1.5 mg/dL (1.6-2.6) L 09/04/17 04:10 Consult Discharge Plan - Plan Referrals: Na Johansen INDUSTRIAL HEALTH AND SAFETY PROFESSOR [Primary Care Provider] - 09/17/17 1:00 pm
[2017-09-04] MEDS ORDERED: Calcium Gluconate 2,000 MG in D5% in Water 100 ML IVPB ONE (11:24)
--- NOTE | 2017-09-04 13:38 | Internal Med Progress Note ---
Date of Encounter: 09/04/17 Time of Encounter: 13:36 - Assessment and plan (1) Colitis Current Visit: Yes Status: Acute Assessment and plan: Patient presented with abdominal pain, CT abdomen/pelvis showed changes suggestive of colitis around splenic flexure. Continue empiric IV antibiotics- ciprofloxacin and Flagyl. Currently improving. Tolerates oral diet. Pain control with when necessary IV morphine and oral Percocet. Stool GI panel negative. Patient reports she does not feel well enough to be discharged home, still has some weakness. Declines physical therapy evaluation as she feels therapy would not help her. (2) Hypokalemia Current Visit: Yes Status: Resolved Assessment and plan: Improved. Noted to have hypomagnesemia, supplemented with IV magnesium sulfate. Continue to monitor closely. (3) COPD (chronic obstructive pulmonary disease) Current Visit: Yes Status: Acute Assessment and plan: Continues to smoke. Patient is noted to be wheezing with moist cough today. She has not been receiving her home medications. Will start scheduled bronchodilators, inhaled corticosteroids, continue supplemental oxygen. Start a short burst of oral steroids. When necessary Tessalon. Qualifiers: COPD type: unspecified COPD Qualified Code(s): J44.9 - Chronic obstructive pulmonary disease, unspecified (4) Anemia in CKD (chronic kidney disease) Current Visit: Yes Status: Chronic Qualifiers: Chronic kidney disease stage: on chronic dialysis Qualified Code(s): N18.6 - End stage renal disease; D63.1 - Anemia in chronic kidney disease; D63.1 - Anemia in chronic kidney disease; Z99.2 - Dependence on renal dialysis; Z99.2 - Dependence on renal dialysis; Z99.2 - Dependence on renal dialysis; Z99.2 - Dependence on renal dialysis (5) Ileostomy in place Current Visit: Yes Status: Chronic (6) ESRD (end stage renal disease) on dialysis Current Visit: Yes Status: Chronic Assessment and plan: Nephrology consulted for dialysis needs, receiving hemodialysis per schedule. (7) Tobacco abuse Current Visit: Yes Status: Chronic Assessment and plan: Reports having quit smoking just before this admission. Will use nicotine transdermal patch as needed. (8) Leg pain Current Visit: Yes Status: Chronic Qualifiers: Laterality: bilateral Qualified Code(s): M79.604 - Pain in right leg; M79.605 - Pain in left leg; M79.605 - Pain in left leg (9) Chronic diarrhea Current Visit: Yes Status: Chronic (10) Hypothyroid Current Visit: Yes Status: Chronic Assessment and plan: Continue levothyroxine. Qualifiers: Hypothyroidism type: unspecified Qualified Code(s): E03.9 - Hypothyroidism , unspecified (11) Atrial fibrillation Current Visit: Yes Status: Chronic Assessment and plan: Currently rate controlled. Continue beta lex. Not on long-term anticoagulation due to risk of falls. Qualifiers: Atrial fibrillation type: persistent Qualified Code(s): I48.1 - Persistent atrial fibrillation - Subjective Interval history: Feels somewhat better but not doing well; continues to have abdominal pain and weakness; has chronic leg pains. Also has moist cough and wheezing today; - Constitutional Vitals: Temp Pulse Resp BP Pulse Ox 98.7 F 81 16 100/63 96 09/04/17 06:48 09/04/17 06:48 09/04/17 06:48 09/04/17 06:48 09/04/17 06:48 General appearance: Present: A&O X 3, answers questions appropriately - Respiratory Respiratory exam: Present: CTAB (coarse rhonchurous breath sounds B/L), wheezes. Absent: accessory muscle use, rales, rhonchi - Cardiovascular Cardiovascular exam: Present: RRR, +S1, +S2. Absent: diastolic murmur, gallop, rubs, systolic murmur - GI/Abdominal GI/Abdominal exam: Present: normal bowel sounds, soft (right lower urostomy and left upper ileostomy in place), no peritoneal signs. Absent: distended, tenderness Internal Medicine: Result - Labs CBC & Chem 7: 09/04/17 04:10 09/04/17 04:10 Labs: Short CBC 09/04/17 Range/Units 04:10 WBC 5.2 (4.3-11.1) K/mcL Hgb 8.3 L (11.5-15.4) g/dL Hct 26.3 L (35.3-44.9) % Plt Count 78 L (140-400) K/mcL Neutrophils # 3.7 (1.6-8.9) K/mcL BMP 09/04/17 04:10 Sodium 139 Potassium 3.5 Chloride 105 Carbon Dioxide 24 BUN 13 D Creatinine 3.89 H Glucose 86 Calcium 7.7 L Liver Function 09/04/17 Range/Units 04:10 Albumin 2.6 L (3.5-5.0) g/dL - ABG Interpretation ABG results: PT/INR, D-dimer PT 12.4 Seconds (9.4-12.1) H 09/02/17 05:00 Consult Discharge Plan - Plan Referrals: Na Johansen CNP [Primary Care Provider] - 09/17/17 1:00 pm
[2017-09-04] MEDS: predniSONE 20 MG TABLET PO SCH (13:59)
[2017-09-04] MEDS: Ipratropium/Albuterol Neb 3 ML IH SCH ×3 (14:21→21:03)
[2017-09-04] MEDS ORDERED: Albuterol 2.5 MG/3 ML NEBULIZER IH PRN (16:00)
[2017-09-04] MEDS: 0.9 % Sodium Chloride 1,000 ML IVC SCH (17:43)
[2017-09-04] MEDS ORDERED: (Mometasone/Formoterol [Dulera 100 Mcg/5 Mcg Inhaler]) IH SCH (22:00)
[2017-09-05] MEDS: MetroNIDAZOLE 500 MG/100 ML 500 MG/100 ML BAG IVPB SCH ×2 (00:28→08:08)
[2017-09-05] MEDS: Ondansetron 4 MG/2 ML VIAL IVP PRN ×4 (00:31→20:56)
[2017-09-05] MEDS: *HR* Morphine 2 MG/ML SYRINGE IVP PRN ×3 (00:31→16:58)
[2017-09-05] MEDS: Ipratropium/Albuterol Neb 3 ML IH SCH ×4 (03:37→20:30)
[2017-09-05] MEDS: *HR* Heparin 5,000 UNIT/ML VIAL SQ SCH ×2 (05:00→16:52)
[2017-09-05] MEDS: *HR* OxyCODONE Immed Rel 5 MG TABLET PO PRN ×2 (05:00→15:15)
[2017-09-05 05:45] LABS: Albumin 2.7 g/dL (3.5-5.0); Calcium 7.9 mg/dL (8.6-10.8); Magnesium 1.9 mg/dL (1.6-2.6); Phosphorous 6.6 mg/dL (2.3-4.7); Potassium 3.9 mEq/L (3.5-4.5)
[2017-09-05] MEDS: Diltiazem CD (24hr) 120 MG CAPSULE PO SCH (08:08)
[2017-09-05] MEDS: Renal Vitamin 1 MG CAPSULE PO SCH (08:08)
[2017-09-05] MEDS: predniSONE 20 MG TABLET PO SCH (08:08)
[2017-09-05] MEDS: Calcium Acetate 667 MG CAPSULE PO SCH ×3 (08:08→16:52)
[2017-09-05] MEDS ORDERED: 0.9 % Sodium Chloride 250 ML IVC PRN (08:57)
[2017-09-05] MEDS ORDERED: 0.9 % Sodium Chloride 1,000 ML PRIME SCH (09:00)
[2017-09-05] MEDS: *HR* Promethazine 25 MG/ML VIAL IVP PRN (10:26)
[2017-09-05] MEDS ORDERED: Albumin 25% 25gram/100mL 25 GM/100 ML IV.SOLN IVPB ONE (10:29)
[2017-09-05] MEDS ORDERED: Albumin 25% 12.5gm/50mL 25.0 GM/100 ML IV.SOLN ONE (10:32)
[2017-09-05] MEDS: Budesonide/Formoterol 80/4.5 MDI IH SCH ×2 (11:22→20:32)
--- NOTE | 2017-09-05 11:32 | Internal Med Progress Note ---
<Migue Griffiths - Last Filed: 09/05/17 14:23> Date of Encounter: 09/05/17 Time of Encounter: 08:00 - Assessment and plan (1) Colitis Current Visit: Yes Status: Acute Assessment and plan: CT abdomen/pelvis showed changes suggestive of colitis around splenic flexure. Empiric IV antibiotics: Flagyl (Day 4) and Levaquin (Day 1). Already received 3 days of Ciprofloxacin. Stool GI panel negative. Currently improving. Tolerating oral diet. Pain control with when necessary IV morphine and oral Percocet. Patient reports she does not feel well enough to be discharged home, still has some weakness. Declines physical therapy evaluation as she feels therapy would not help her. (2) Pneumonia Current Visit: Yes Status: Acute Assessment and plan: Patient with coarse rhonchurous breath sounds B/L, wheezes CXR reveals increased infiltrate in the posterior left lower lobe, near the costophrenic angle which may be related to atelectasis versus early pneumonia. Patient has a prior history of Stenotrophomonas matlophilia and Pseudomonas aeruginosa sputm culutres in the past Blood and sputum cultures pending Started on Levaquin PO q48h (renally dosed) Continue Duonebs, Mucinex, and incentive spirometry Qualifiers: Pneumonia type: due to unspecified organism Laterality: left Lung location: lower lobe of lung Qualified Code(s): J18.1 - Lobar pneumonia, unspecified organism (3) COPD (chronic obstructive pulmonary disease) Current Visit: Yes Status: Acute Assessment and plan: Continues to smoke. Patient is noted to be wheezing with moist cough. Continue scheduled bronchodilators, oral steroids, inhaled corticosteroids, and continue supplemental oxygen prn. Qualifiers: COPD type: unspecified COPD Qualified Code(s): J44.9 - Chronic obstructive pulmonary disease, unspecified (4) ESRD (end stage renal disease) on dialysis Current Visit: Yes Status: Chronic Assessment and plan: Nephrology following for dialysis needs, receiving hemodialysis per schedule MWF. (5) Anemia in CKD (chronic kidney disease) Current Visit: Yes Status: Chronic Assessment and plan: Nephrology following Continue to monitor Qualifiers: Chronic kidney disease stage: on chronic dialysis Qualified Code(s): N18.6 - End stage renal disease; D63.1 - Anemia in chronic kidney disease; D63.1 - Anemia in chronic kidney disease; Z99.2 - Dependence on renal dialysis; Z99.2 - Dependence on renal dialysis; Z99.2 - Dependence on renal dialysis; Z99.2 - Dependence on renal dialysis (6) Atrial fibrillation Current Visit: No Status: Chronic Assessment and plan: Currently rate controlled. Continue beta lex. Not on long-term anticoagulation due to risk of falls. Qualifiers: Atrial fibrillation type: paroxysmal Qualified Code(s): I48.0 - Paroxysmal atrial fibrillation (7) Hypothyroid Current Visit: Yes Status: Chronic Assessment and plan: Continue levothyroxine. Qualifiers: Hypothyroidism type: unspecified Qualified Code(s): E03.9 - Hypothyroidism , unspecified (8) Ileostomy in place Current Visit: Yes Status: Chronic (9) Tobacco abuse Current Visit: No Status: Chronic Assessment and plan: Reports having quit smoking just before this admission. Will use nicotine transdermal patch as needed. (10) DVT prophylaxis Current Visit: Yes Status: Acute Assessment and plan: Heparin subq TID - Subjective Interval history: Patient seen and examined sitting up in bed after eating breakfast. Patient reports SOB, productive cough, nausea, loose BMs, and continued weakness. She also reports chest congestion and reports " I feel like I have pneumonia." Patient denies fever, chills, CP, worsening abd pain, or led edema. - Constitutional Vitals: Temp Pulse Resp BP Pulse Ox 98.8 F 80 20 103/61 98 09/05/17 08:00 09/05/17 11:15 09/05/17 11:15 09/05/17 11:15 09/05/17 08:00 General appearance: Present: cachectic, cooperative, mild distress, A&O X 3, answers questions appropriately - Head Head exam: Present: atraumatic, normocephalic. Absent: normal inspection Additional comments: temporal wasting - Eye Eye exam: Present: EOMI, PERRL - ENT ENT exam: Present: mucous membranes moist, normal oropharynx - Neck Neck exam general surgery: Present: normal inspection, supple. Absent: tenderness, thyromegaly - Respiratory Respiratory exam: Present: rhonchi (coarse rhonchurous breath sounds B/L), wheezes. Absent: accessory muscle use, respiratory distress - Cardiovascular Cardiovascular exam: Present: RRR, +S1, +S2 - GI/Abdominal GI/Abdominal exam: Present: normal bowel sounds, soft, tenderness (diffuse). Absent: distended, guarding Additional comments: right lower urostomy and left upper ileostomy in place - Extremities Exam Extremities exam: Present: normal inspection, warm. Absent: pedal edema, tenderness - Back Exam Back exam: Present: normal inspection. Absent: paraspinal tenderness, tenderness - Neurological Exam Neurological exam: Present: alert, oriented X3, no focal deficits. Absent: speech deficit - Psychiatric Psychiatric exam: Present: anxious, normal affect - Skin Skin exam: Present: dry, normal color, warm Internal Medicine: Result - Labs CBC & Chem 7: 09/04/17 04:10 09/05/17 05:07 Labs: BMP 09/05/17 05:07 Sodium 137 Potassium 3.9 Chloride 99 Carbon Dioxide 25 BUN 25 H D Creatinine 5.57 H Glucose 140 H Calcium 7.9 L Liver Function 09/05/17 Range/Units 05:07 Albumin 2.7 L (3.5-5.0) g/dL - ABG Interpretation ABG results: PT/INR, D-dimer PT 12.4 Seconds (9.4-12.1) H 09/02/17 05:00 - Pulse Oximetry Interpretation Digit-Finger Pulse Oximetry Readin (on ambient air) - Impressions Impressions Chest X-Ray 09/05/17 08:49 IMPRESSION: 1. Increased infiltrate in the posterior left lower lobe, near the costophrenic angle which may be related to atelectasis versus early pneumonia. 2. No other focal lung infiltrate is identified. D/ / 09/05/2017 09:50:02 Jorge Henderson MD / [email or web address] Interpreting Provider: Jorge Henderson MD Consult Discharge Plan - Plan Referrals: Na Johansen, TYLER [Primary Care Provider] - 09/17/17 1:00 pm <Timothy Bridges - Last Filed: 09/05/17 17:18> Date of Encounter: 09/05/17 - Assessment and plan (1) Pneumonia Current Visit: Yes Status: Acute Qualifiers: Pneumonia type: due to other aerobic Gram-negative bacteria Laterality: left Lung location: lower lobe of lung Qualified Code(s): J15.6 - Pneumonia due to other Gram-negative bacteria (2) Colitis Current Visit: Yes Status: Acute (3) Tobacco abuse Current Visit: No Status: Chronic (4) COPD (chronic obstructive pulmonary disease) Current Visit: Yes Status: Acute Qualifiers: COPD type: emphysema Emphysema type: panlobular Qualified Code(s): J43.1 - Panlobular emphysema (5) Anemia in CKD (chronic kidney disease) Current Visit: Yes Status: Chronic Qualifiers: Chronic kidney disease stage: on chronic dialysis Qualified Code(s): N18.6 - End stage renal disease; D63.1 - Anemia in chronic kidney disease; D63.1 - Anemia in chronic kidney disease; Z99.2 - Dependence on renal dialysis; Z99.2 - Dependence on renal dialysis; Z99.2 - Dependence on renal dialysis; Z99.2 - Dependence on renal dialysis (6) Atrial fibrillation Current Visit: Yes Status: Chronic Qualifiers: Atrial fibrillation type: chronic Qualified Code(s): I48.2 - Chronic atrial fibrillation (7) Hypothyroid Current Visit: Yes Status: Chronic Qualifiers: Hypothyroidism type: acquired Qualified Code(s): E03.9 - Hypothyroidism, unspecified (8) Ileostomy in place Current Visit: Yes Status: Chronic - Constitutional Vitals: Temp Pulse Resp BP Pulse Ox 98.6 F 76 18 110/62 95 09/05/17 16:20 09/05/17 16:20 09/05/17 16:30 09/05/17 16:20 09/05/17 16:30 Internal Medicine: Result - Labs CBC & Chem 7: 09/04/17 04:10 09/05/17 05:07 Labs: BMP 09/05/17 05:07 Sodium 137 Potassium 3.9 Chloride 99 Carbon Dioxide 25 BUN 25 H D Creatinine 5.57 H Glucose 140 H Calcium 7.9 L Liver Function 09/05/17 Range/Units 05:07 Albumin 2.7 L (3.5-5.0) g/dL - ABG Interpretation ABG results: PT/INR, D-dimer PT 12.4 Seconds (9.4-12.1) H 09/02/17 05:00 - Impressions Impressions Chest X-Ray 09/05/17 08:49 IMPRESSION: 1. Increased infiltrate in the posterior left lower lobe, near the costophrenic angle which may be related to atelectasis versus early pneumonia. 2. No other focal lung infiltrate is identified. D/ / 09/05/2017 09:50:02 Jorge Henderson MD / [email or web address] Interpreting Provider: Jorge Henderson MD - Attending Attestation I examined this patient and my medical decision-making was reviewed with the Resident Physician on 09/05/17. I agree with the documented findings, disposition and treatment plan as described except to the extent set forth below. Ms Parra is currently admitted for acute colitis. She has developed dyspnea and cough and CXR with pneumonia. She remains moderate to high risk due to potential for worsening respiratory status. Ms Parra is doing OK but feels very weak and tired. She is coughing a lot more. No fever or chills. GI issues somewhat better. Exam Alert. Comfortable Mucus membranes moist Deep moist cough Heart reg Rhonchi and wheeze bilaterally Abd soft and nontender I/P 1. Pneumonia - recurrent. Hx of Stenotrophomonas recently 2. Colitis 3. ESRD Further diagnoses and plan as above.
[2017-09-05] MEDS ORDERED: levoFLOXacin 750 MG TABLET PO ONE (11:45)
[2017-09-05] MEDS ORDERED: Calcium Gluconate 3,000 MG in D5% in Water 250 ML IVPB ONE (11:48)
--- NOTE | 2017-09-05 11:48 | Nephrology Progress Note ---
Date of Encounter: 09/05/17 Time of Encounter: 11:46 - Assessment and Plan (1) Colitis Current Visit: Yes Status: Acute Source of the abdominal pain. Antibiotics per primary team. Seems to be improving. Continue current care. (2) ESRD (end stage renal disease) on dialysis Current Visit: Yes Status: Chronic HD MWF. Renal vitamins. Renal dose medications. Renal diet. Additional dialysis as needed. (3) Frail elderly Current Visit: No Status: Acute Per primary team. (4) Hyperphosphatemia Current Visit: No Status: Acute Started phosphate binder, follow phosphorus. PTH elevated and vitamin D pending. Renal diet. (5) Hypocalcemia Current Visit: No Status: Acute Check ionized calcium and replace as needed. (6) Hypokalemia Current Visit: Yes Status: Acute Higher potassium bath on dialysis. Subjective Principal diagnosis: ESRD Interval history: Patient seen on dialysis. She is having nausea on dialysis so UF was discontinued. Objective - Vital Signs Vital signs: Vital Signs Temp Pulse Resp BP Pulse Ox 09/05/17 11:15 80 20 103/61 09/05/17 10:15 101/54 09/05/17 10:00 105/59 09/05/17 09:45 97.6 F 18 104/58 09/05/17 08:00 98.8 F 81 20 107/58 98 09/05/17 03:37 18 96 09/05/17 03:07 98.1 F 76 17 105/63 98 09/04/17 22:59 94/46 09/04/17 22:52 98.4 F 73 17 95/44 95 09/04/17 21:03 16 95 09/04/17 19:01 98.2 F 81 16 102/55 95 09/04/17 16:36 20 94 09/04/17 15:16 97.8 F 74 18 105/64 97 Intake and Output 09/04/17 09/05/17 09/05/17 23:59 07:59 15:59 Intake Total 330 / 330 100 / 100 960 / 960 Output Total 0 / 0 Balance 330 / 330 100 / 100 960 / 960 Intake: IV Fluids 300 / 300 100 / 100 Cipro Premix 400 MG/200 ML 400 200 / 200 mg In 200 ml @ 200 mls/hr IVPB Q24H [facility] Rx#:[id number] Flagyl Premix 500 MG/100 ML 500 100 / 100 100 / 100 mg In 100 ml @ 100 mls/hr IVPB Q8HR [facility] Rx#:[id number] Oral 30 / 30 360 / 360 Intake, Rinseback and Flushes 600 / 600 Output: Urine 0 / 0 Other: Meal Breakfast Percent of Meal Consumed 100% Weight 58.695 kg 59.6 kg Blood Glucose* 243 156 Hemodialysis Net Fluid Removed 401 (mL) Patient Weight 09/05/17 23:59 Weight 59.6 kg - General Appearance General appearance: Present: well-developed, chronically ill, frail EENT: Present: ATNC Neck: Present: supple Cardiology: Present: regular rate Integumentary: Present: warm and dry Neurologic: Present: alert and oriented x3 Psychiatric: Present: mood/affect appropriate - Lab 09/04/17 04:10 09/05/17 05:07 Most recent lab results Calcium 7.9 mg/dL (8.6-10.8) L 09/05/17 05:07 Phosphorus 6.6 mg/dL (2.3-4.7) H 09/05/17 05:07 Magnesium 1.9 mg/dL (1.6-2.6) 09/05/17 05:07 Consult Discharge Plan - Plan Referrals: Na Johansen CNP [Primary Care Provider] - 09/17/17 1:00 pm
[2017-09-05] MEDS: metroNIDAZOLE 500 MG TABLET PO SCH ×2 (14:53→20:52)
[2017-09-05] MEDS ORDERED: 0.9 % Sodium Chloride 2,000 ML ONE (17:12)
[2017-09-06] MEDS: Ipratropium/Albuterol Neb 3 ML IH SCH ×7 (00:16→23:36)
[2017-09-06] MEDS: Ondansetron 4 MG/2 ML VIAL IVP PRN ×4 (01:53→20:52)
[2017-09-06] MEDS: *HR* Morphine 2 MG/ML SYRINGE IVP PRN ×2 (01:54→14:50)
[2017-09-06 04:35] LABS: Mean Corpuscular Hemoglobin 29.3 pg (28.0-33.3)
[2017-09-06 04:36] LABS: Hematocrit 26.6 % (35.3-44.9); Lymphocytes # 0.6 K/mcL (0.6-4.6); Lymphocytes % 11.7 %; Mean Corpuscular HGB Conc 30.1 g/dL (31.6-35.5); Mean Corpuscular Volume 97.4 fL (83.0-100.0); Mean Platelet Volume 11.4 fL (9.4-12.4); Monocytes # 0.2 K/mcL (0.0-1.3); Monocytes % 2.9 %; Neutrophils # 4.4 K/mcL (1.6-8.9); Red Blood Count 2.73 M/mcL (3.82-4.97); Red Cell Distribution Width 18.5 % (11.5-14.5); Segmented Neutrophils % 84.4 %
[2017-09-06 04:40] LABS: Platelet Count 75 K/mcL (140-400)
[2017-09-06 04:41] LABS: Ionized Calcium 1.11 mmol/L (1.15-1.35)
[2017-09-06 04:51] LABS: Calcium 8.5 mg/dL (8.6-10.8); Magnesium 1.8 mg/dL (1.6-2.6); Potassium 4.7 mEq/L (3.5-4.5)
[2017-09-06 05:09] LABS: Hepatitis B Surface Antigen Nonreactive (Nonreactive)
[2017-09-06 05:10] LABS: Hepatitis B Surface Antibody 43.75 mIU/mL
[2017-09-06] MEDS: *HR* Heparin 5,000 UNIT/ML VIAL SQ SCH ×2 (05:59→18:08)
[2017-09-06] MEDS: Calcium Acetate 667 MG CAPSULE PO SCH ×3 (08:23→18:08)
[2017-09-06] MEDS: Diltiazem CD (24hr) 120 MG CAPSULE PO SCH (08:23)
[2017-09-06] MEDS: Renal Vitamin 1 MG CAPSULE PO SCH (08:23)
[2017-09-06] MEDS: metroNIDAZOLE 500 MG TABLET PO SCH ×3 (08:23→20:29)
[2017-09-06] MEDS: predniSONE 20 MG TABLET PO SCH (08:24)
[2017-09-06] MEDS: Budesonide/Formoterol 80/4.5 MDI IH SCH ×2 (08:47→19:49)
[2017-09-06] MEDS: *HR* OxyCODONE Immed Rel 5 MG TABLET PO PRN ×2 (09:56→20:30)
--- NOTE | 2017-09-06 10:16 | Internal Med Progress Note ---
<Lashae Hardin - Last Filed: 09/06/17 10:14> Date of Encounter: 09/06/17 Time of Encounter: 08:00 - Assessment and plan (1) Pneumonia Current Visit: Yes Status: Acute Assessment and plan: - CXR on 09/05/17 found increased infiltrate in the posterior left lower lobe concerning of pneumonia. - Prior history of sputum cultures positive for Stenotrophomonas matlophilia and Pseudomonas aeruginosa. - Pending Blood and sputum cultures. - Continue Levaquin PO q48h (renally dosed) (Day 2). - Continue Duonebs, Mucinex, incentive spirometry and supplemental oxygen. Add Mucomyst. - Continue to monitor. Qualifiers: Pneumonia type: due to other aerobic Gram-negative bacteria Laterality: left Lung location: lower lobe of lung Qualified Code(s): J15.6 - Pneumonia due to other Gram-negative bacteria (2) Colitis Current Visit: Yes Status: Acute Assessment and plan: - CT A/P on admission found wall thickening of the colon at the splenic flexure with a small amount of adjacent fluid suggestive of colitis around splenic flexure. - Empiric IV antibiotics: Flagyl (Day 5) and Levaquin (Day 2). Already received 3 days of Ciprofloxacin. - Stool GI panel negative. - Clinically improving as patient is tolerating oral diet. - Pain control with prn IV morphine and oral Percocet. (3) COPD (chronic obstructive pulmonary disease) Current Visit: Yes Status: Acute Assessment and plan: - Continue scheduled bronchodilators, Symbicort, prednisone, and supplemental oxygen. Qualifiers: COPD type: emphysema Emphysema type: panlobular Qualified Code(s): J43.1 - Panlobular emphysema (4) Anemia in chronic kidney disease Current Visit: No Status: Chronic Assessment and plan: - Hgb 8.0 today. - Continue to monitor. Qualifiers: Chronic kidney disease stage: on chronic dialysis Qualified Code(s): N18.6 - End stage renal disease; D63.1 - Anemia in chronic kidney disease; Z99.2 - Dependence on renal dialysis (5) ESRD (end stage renal disease) on dialysis Current Visit: Yes Status: Chronic Assessment and plan: - On HD MWF. - Appreciate nephrology assistance regarding dialysis needs. (6) Hypothyroid Current Visit: Yes Status: Chronic Assessment and plan: - Continue Synthroid. Qualifiers: Hypothyroidism type: acquired Qualified Code(s): E03.9 - Hypothyroidism, unspecified (7) Ileostomy in place Current Visit: Yes Status: Chronic (8) Tobacco abuse Current Visit: No Status: Chronic Assessment and plan: - Patient reports quitting just before this admission. - Nicoderm patch as needed. (9) DVT prophylaxis Current Visit: Yes Status: Acute Assessment and plan: - Continue SQ heparin. - Subjective Interval history: Patient was seen and examined this morning. Patient still has shortness of breath, productive cough with yellow sputum and abdominal pain. Patient denies fever, chills, chest pain. - Constitutional Vitals: Temp Pulse Resp BP Pulse Ox 98.0 F 73 16 105/47 95 09/06/17 07:09 09/06/17 07:09 09/06/17 08:47 09/06/17 07:09 09/06/17 08:47 General appearance: Present: cachectic, cooperative, mild distress, A&O X 3, answers questions appropriately - Head Head exam: Present: atraumatic, normocephalic - Eye Eye exam: Present: EOMI, conjuntiva pink, sclera anicteric - ENT ENT exam: Present: mucous membranes moist - Neck Neck exam general surgery: Present: normal inspection, supple, trachea midline - Respiratory Respiratory exam: Present: rhonchi (Diffuse), wheezes. Absent: accessory muscle use - Cardiovascular Cardiovascular exam: Present: RRR, +S1, +S2 - GI/Abdominal GI/Abdominal exam: Present: normal bowel sounds, tenderness (Diffuse) Additional comments: Ostomy bags in place - Extremities Exam Extremities exam: Present: normal inspection, warm. Absent: pedal edema - Neurological Exam Neurological exam: Present: alert, no focal deficits. Absent: facial droop, speech deficit - Skin Skin exam: Present: dry, warm Internal Medicine: Result - Labs CBC & Chem 7: 09/06/17 03:52 09/06/17 03:52 Labs: Short CBC 09/06/17 Range/Units 03:52 WBC 5.2 (4.3-11.1) K/mcL Hgb 8.0 L (11.5-15.4) g/dL Hct 26.6 L (35.3-44.9) % Plt Count 75 L (140-400) K/mcL Neutrophils # 4.4 (1.6-8.9) K/mcL BMP 09/06/17 03:52 Sodium 140 Potassium 4.7 H Chloride 103 Carbon Dioxide 26 BUN 28 H Creatinine 4.00 H Glucose 122 H Calcium 8.5 L - ABG Interpretation ABG results: PT/INR, D-dimer PT 12.4 Seconds (9.4-12.1) H 09/02/17 05:00 Consult Discharge Plan - Plan Referrals: Na Johansen CNP [Primary Care Provider] - 09/17/17 1:00 pm <Timothy Bridges - Last Filed: 09/06/17 16:25> Date of Encounter: 09/06/17 - Assessment and plan (1) Pneumonia Current Visit: Yes Status: Acute Qualifiers: Pneumonia type: due to other aerobic Gram-negative bacteria Laterality: left Lung location: lower lobe of lung Qualified Code(s): J15.6 - Pneumonia due to other Gram-negative bacteria (2) Colitis Current Visit: Yes Status: Acute (3) Tobacco abuse Current Visit: No Status: Chronic (4) COPD (chronic obstructive pulmonary disease) Current Visit: Yes Status: Acute Qualifiers: COPD type: emphysema Emphysema type: panlobular Qualified Code(s): J43.1 - Panlobular emphysema (5) Anemia in CKD (chronic kidney disease) Current Visit: Yes Status: Chronic Qualifiers: Chronic kidney disease stage: on chronic dialysis Qualified Code(s): N18.6 - End stage renal disease; D63.1 - Anemia in chronic kidney disease; D63.1 - Anemia in chronic kidney disease; Z99.2 - Dependence on renal dialysis; Z99.2 - Dependence on renal dialysis; Z99.2 - Dependence on renal dialysis; Z99.2 - Dependence on renal dialysis (6) Atrial fibrillation Current Visit: Yes Status: Chronic Qualifiers: Atrial fibrillation type: chronic Qualified Code(s): I48.2 - Chronic atrial fibrillation (7) Hypothyroid Current Visit: Yes Status: Chronic Qualifiers: Hypothyroidism type: acquired Qualified Code(s): E03.9 - Hypothyroidism, unspecified (8) Ileostomy in place Current Visit: Yes Status: Chronic - Constitutional Vitals: Temp Pulse Resp BP Pulse Ox 98.1 F 78 18 113/52 94 09/06/17 14:59 09/06/17 14:59 09/06/17 14:59 09/06/17 14:59 09/06/17 14:59 Internal Medicine: Result - Labs CBC & Chem 7: 09/06/17 03:52 09/06/17 10:30 Labs: Short CBC 09/06/17 Range/Units 03:52 WBC 5.2 (4.3-11.1) K/mcL Hgb 8.0 L (11.5-15.4) g/dL Hct 26.6 L (35.3-44.9) % Plt Count 75 L (140-400) K/mcL Neutrophils # 4.4 (1.6-8.9) K/mcL BMP 09/06/17 09/06/17 03:52 10:30 Sodium 140 Potassium 4.7 H 4.7 H Chloride 103 Carbon Dioxide 26 BUN 28 H Creatinine 4.00 H Glucose 122 H Calcium 8.5 L - ABG Interpretation ABG results: PT/INR, D-dimer PT 12.4 Seconds (9.4-12.1) H 09/02/17 05:00 - Attending Attestation I examined this patient and my medical decision-making was reviewed with the Resident Physician on 09/06/17. I agree with the documented findings, disposition and treatment plan as described except to the extent set forth below. Ms Parra is currently admitted for pneumonia and ESRD. She remains moderate to high risk due to potential for worsening respiratory status. Ms Parra is resting in bed waiting to go to dialysis. She has on EMLA cream. She feels her breathing is about the same. No fever or chills. No GI issues. Exam Alert. Comfortable Heart not tachy Lungs with rhonchi No edema I/P 1. Pneumonia 2. ESRD Further diagnoses and plan as above.
--- NOTE | 2017-09-06 11:04 | Nephrology Progress Note ---
Date of Encounter: 09/06/17 Time of Encounter: 11:02 - Assessment and Plan (1) Colitis Current Visit: Yes Status: Acute Source of the abdominal pain. Antibiotics per primary team. Seems to be improving. Continue current care. (2) ESRD (end stage renal disease) on dialysis Current Visit: Yes Status: Chronic HD MWF. Renal vitamins. Renal dose medications. Renal diet. Additional dialysis today for hyperkalemia and volume overload. (3) Frail elderly Current Visit: No Status: Acute Per primary team. (4) Hyperphosphatemia Current Visit: No Status: Acute Started phosphate binder, follow phosphorus. PTH elevated and vitamin D normal. Renal diet. (5) Hypocalcemia Current Visit: No Status: Acute Improving. Will place on higher calcium bath. Check ionized calcium and replace as needed. (6) Hypokalemia Current Visit: Yes Status: Acute now hyperkalemia. (7) Hyperparathyroidism Current Visit: Yes Status: Acute Likely physiologic response to hypocalcemia. Correct calcium and repeat. Subjective Principal diagnosis: ESRD Interval history: Patient seen. She is feeling dyspnic and feels that she is "swelling". No nausea today. Objective - Vital Signs Vital signs: Vital Signs Temp Pulse Resp BP Pulse Ox 09/06/17 08:47 16 95 09/06/17 07:09 98.0 F 73 18 105/47 94 09/06/17 04:17 14 96 09/06/17 03:58 98.6 F 72 16 98/40 94 09/06/17 00:17 14 99 09/06/17 00:03 98.7 F 75 16 122/66 92 09/05/17 20:36 14 68 09/05/17 18:48 98.7 F 68 16 113/49 100 09/05/17 16:30 18 95 09/05/17 16:20 98.6 F 76 20 110/62 99 09/05/17 12:55 97.8 F 18 98/56 09/05/17 12:45 92/53 09/05/17 12:30 95/52 09/05/17 12:15 94/58 09/05/17 12:00 101/57 09/05/17 11:45 99/52 09/05/17 11:30 106/52 09/05/17 11:15 80 20 103/61 Intake and Output 11/01/1709/06/17 09/06/17 23:59 07:59 15:59 Intake Total 0 / 0 0 / 0 240 / 240 Balance 0 / 0 0 / 0 240 / 240 Intake: Oral 0 / 0 0 / 0 240 / 240 Other: Meal Breakfast Percent of Meal Consumed 100% Weight 60.056 kg Blood Glucose* 141 103 Patient Weight 09/06/17 23:59 Weight 60.056 kg - General Appearance General appearance: Present: well-developed, chronically ill, frail EENT: Present: ATNC Neck: Present: supple Respiratory: Present: rales, course breath sounds, rhonchi Cardiology: Present: edema, regular rate Integumentary: Present: warm and dry Neurologic: Present: alert and oriented x3 Psychiatric: Present: mood/affect appropriate - Lab 09/06/17 03:52 09/06/17 10:30 Most recent lab results Calcium 8.5 mg/dL (8.6-10.8) L 09/06/17 03:52 Phosphorus 6.6 mg/dL (2.3-4.7) H 09/05/17 05:07 Magnesium 1.8 mg/dL (1.6-2.6) 09/06/17 03:52 Consult Discharge Plan - Plan Referrals: Na Johansen CNP [Primary Care Provider] - 09/17/17 1:00 pm
[2017-09-06] MEDS ORDERED: 0.9 % Sodium Chloride 250 ML IVC PRN (11:27)
[2017-09-06] MEDS ORDERED: 0.9 % Sodium Chloride 1,000 ML PRIME SCH (11:30)
[2017-09-06] MEDS: Acetylcysteine 10% 2 ML INHSOL IH SCH ×4 (11:41→23:37)
[2017-09-06] MEDS ORDERED: 0.9 % Sodium Chloride 2,000 ML ONE (12:05)
[2017-09-07] MEDS: Acetaminophen 325 MG TABLET PO PRN (00:27)
[2017-09-07] MEDS: Ondansetron 4 MG/2 ML VIAL IVP PRN ×3 (02:10→18:45)
[2017-09-07 03:11] LABS: Calcium 7.8 mg/dL (8.6-10.8)
[2017-09-07] MEDS: Acetylcysteine 10% 2 ML INHSOL IH SCH ×6 (03:48→23:35)
[2017-09-07] MEDS: Ipratropium/Albuterol Neb 3 ML IH SCH ×6 (03:48→23:35)
[2017-09-07 03:50] LABS: Hematocrit 23.3 % (35.3-44.9); Hemoglobin 7.3 g/dL (11.5-15.4); Immature Platelets 5.5 % (1.1-6.1); Mean Corpuscular HGB Conc 31.3 g/dL (31.6-35.5); Mean Corpuscular Hemoglobin 29.7 pg (28.0-33.3); Mean Corpuscular Volume 94.7 fL (83.0-100.0); Mean Platelet Volume 11.6 fL (9.4-12.4); Red Blood Count 2.46 M/mcL (3.82-4.97); Red Cell Distribution Width 18.3 % (11.5-14.5)
[2017-09-07] MEDS: *HR* Heparin 5,000 UNIT/ML VIAL SQ SCH ×2 (06:09→17:30)
[2017-09-07] MEDS: Budesonide/Formoterol 80/4.5 MDI IH SCH ×2 (07:47→19:52)
[2017-09-07] MEDS: Renal Vitamin 1 MG CAPSULE PO SCH (07:50)
[2017-09-07] MEDS: metroNIDAZOLE 500 MG TABLET PO SCH ×3 (07:50→21:17)
[2017-09-07] MEDS: Calcium Acetate 667 MG CAPSULE PO SCH ×3 (07:50→17:29)
[2017-09-07] MEDS: Diltiazem CD (24hr) 120 MG CAPSULE PO SCH (07:50)
[2017-09-07] MEDS: predniSONE 20 MG TABLET PO SCH (07:50)
--- NOTE | 2017-09-07 09:30 | Nephrology Progress Note ---
Date of Encounter: 09/07/17 Time of Encounter: 09:27 - Assessment and Plan (1) Colitis Current Visit: Yes Status: Acute Source of the abdominal pain. Antibiotics per primary team. Seems to be improving. Continue current care. (2) ESRD (end stage renal disease) on dialysis Current Visit: Yes Status: Chronic HD MWF. Renal vitamins. Renal dose medications. Renal diet. We will put in an order or interventional radiology to do a fistula gram secondary to difficulty with performing dialysis yesterday and a physical exam that suggest possible intra-fistula stenosis. (3) Frail elderly Current Visit: No Status: Acute Per primary team. (4) Hyperphosphatemia Current Visit: No Status: Acute Started phosphate binder, follow phosphorus. PTH elevated and vitamin D normal. Renal diet. (5) Hypocalcemia Current Visit: No Status: Acute Improving. Will place on higher calcium bath. Check ionized calcium and replace as needed. (6) Hypokalemia Current Visit: Yes Status: Acute now hyperkalemia. Low potassium bath on dialysis. (7) Hyperparathyroidism Current Visit: Yes Status: Acute Likely physiologic response to hypocalcemia. Correct calcium and repeat. Subjective Principal diagnosis: ESRD Interval history: Patient seen. She reports she is feeling better today. No nausea today. She was unable to receive dialysis yesterday secondary to problem with her left upper arm AV fistula. Objective - Vital Signs Vital signs: Vital Signs Temp Pulse Resp BP Pulse Ox 09/07/17 07:48 16 95 09/07/17 07:05 98.1 F 76 14 112/61 94 09/07/17 03:56 98.8 F 78 18 137/70 99 09/07/17 03:50 18 94 09/06/17 23:38 14 94 09/06/17 23:14 98.9 F 76 14 123/56 94 09/06/17 20:11 98.1 F 84 16 129/54 98 09/06/17 19:54 18 95 09/06/17 16:22 16 95 09/06/17 14:59 98.1 F 78 18 113/52 94 09/06/17 11:41 18 95 09/06/17 11:16 98.6 F 78 20 105/52 94 Intake and Output 09/07/17 09/07/17 09/07/17 00:59 07:59 15:59 Other: Meal Percent of Meal Consumed Weight Blood Glucose* Patient Weight 09/07/17 22:59 Weight 61.416 kg - General Appearance General appearance: Present: well-developed, well-nourished EENT: Present: ATNC Neck: Present: supple Respiratory: Present: course breath sounds, rhonchi Cardiology: Present: regular rate Dialysis Vascular Access: Arteriovenous Fistula thrill: Yes bruit: Yes Additional Comments: Patient has a left upper arm AV fistula with a good thrill and bruit. However, there is a significant decrease in both the thrill and bruit when auscultating the more proximal area where she is cannulated. Additional Comments: Her urostomy bag has blood with some clots in it. Neurologic: Present: alert and oriented x3 Psychiatric: Present: mood/affect appropriate - Lab 09/07/17 02:48 09/07/17 02:48 Most recent lab results Calcium 7.8 mg/dL (8.6-10.8) L 09/07/17 02:48 Phosphorus 6.6 mg/dL (2.3-4.7) H 09/05/17 05:07 Magnesium 1.8 mg/dL (1.6-2.6) 09/06/17 03:52 Consult Discharge Plan - Plan Referrals: Na Johansen CNP [Primary Care Provider] - 09/17/17 1:00 pm
[2017-09-07] MEDS ORDERED: Calcium Gluconate 2,000 MG in 0.9 % Sodium Chloride 50 ML IVPB ONE (09:32)
[2017-09-07] MEDS ORDERED: levoFLOXacin 500 MG TABLET PO ONE (11:00)
[2017-09-07] MEDS ORDERED: levoFLOXacin 500 MG TABLET PO SCH ×2 (11:00→13:00)
--- NOTE | 2017-09-07 11:31 | Internal Med Progress Note ---
<Lashae Hardin - Last Filed: 09/07/17 12:04> Date of Encounter: 09/07/17 Time of Encounter: 10:00 - Assessment and plan (1) Pneumonia Current Visit: Yes Status: Acute Assessment and plan: - CXR on 09/05/17 found increased infiltrate in the posterior left lower lobe concerning of pneumonia. - Prior history of sputum cultures positive for Stenotrophomonas matlophilia and Pseudomonas aeruginosa. - Sputum culture preliminarily grew GNR. Blood cultures NGTD. - Continue Levaquin PO q48h (renally dosed) (Day 3). - Continue Duonebs, Mucinex, Mucomyst, incentive spirometry and supplemental oxygen. Add . - Continue to monitor. Qualifiers: Pneumonia type: due to other aerobic Gram-negative bacteria Laterality: left Lung location: lower lobe of lung Qualified Code(s): J15.6 - Pneumonia due to other Gram-negative bacteria (2) Colitis Current Visit: Yes Status: Acute Assessment and plan: - CT A/P on admission found wall thickening of the colon at the splenic flexure with a small amount of adjacent fluid suggestive of colitis around splenic flexure. - Empiric IV antibiotics: Flagyl (Day 6) and Levaquin (Day 3). Already received 3 days of Ciprofloxacin prior to switch to levofloxacin. - Stool GI panel negative. - Clinically improving as patient is tolerating oral diet. - Pain control with prn IV morphine and oral Percocet. (3) COPD (chronic obstructive pulmonary disease) Current Visit: Yes Status: Acute Assessment and plan: - Continue scheduled bronchodilators, Symbicort, prednisone, and supplemental oxygen. Qualifiers: COPD type: emphysema Emphysema type: panlobular Qualified Code(s): J43.1 - Panlobular emphysema (4) Anemia in chronic kidney disease Current Visit: No Status: Chronic Assessment and plan: - Hgb 7.3 today. - Gross hematuria noted in the bag for ileal conduit. - Patient may benefit from pRBC transfusion during planned hemodialysis tomorrow. - Continue to monitor. Qualifiers: Chronic kidney disease stage: on chronic dialysis Qualified Code(s): N18.6 - End stage renal disease; D63.1 - Anemia in chronic kidney disease; Z99.2 - Dependence on renal dialysis (5) ESRD (end stage renal disease) on dialysis Current Visit: Yes Status: Chronic Assessment and plan: - On HD MWF. - Case was discussed with cash applications specialist Dr. Buenrostro and plan is to have hemodialysis tomorrow. (6) Hypothyroid Current Visit: Yes Status: Chronic Assessment and plan: - Continue Synthroid. Qualifiers: Hypothyroidism type: acquired Qualified Code(s): E03.9 - Hypothyroidism, unspecified (7) Ileostomy in place Current Visit: Yes Status: Chronic (8) Tobacco abuse Current Visit: No Status: Chronic Assessment and plan: - Patient reports quitting just before this admission. - Nicoderm patch as needed. (9) DVT prophylaxis Current Visit: Yes Status: Acute Assessment and plan: - Continue SQ heparin. - Subjective Interval history: Patient was seen and examined this morning. Patient still complains of dyspnea and abdominal pain. Patient states she had blood clots in her fistula while getting hemodialysis yesterday. Patient denies fever, chest pain. - Constitutional Vitals: Temp Pulse Resp BP Pulse Ox 98.1 F 76 16 112/61 96 09/07/17 07:05 09/07/17 07:05 09/07/17 11:10 09/07/17 07:05 09/07/17 11:10 General appearance: Present: cachectic, cooperative, A&O X 3, answers questions appropriately - Head Head exam: Present: atraumatic, normocephalic - Eye Eye exam: Present: EOMI, conjuntiva pink, sclera anicteric - Neck Neck exam general surgery: Present: supple, trachea midline. Absent: lymphadenopathy - Respiratory Respiratory exam: Present: rhonchi (Diffuse), wheezes (Diffuse). Absent: accessory muscle use - Cardiovascular Cardiovascular exam: Present: RRR, +S1, +S2. Absent: diastolic murmur, gallop, rubs, systolic murmur - GI/Abdominal GI/Abdominal exam: Present: normal bowel sounds, soft, tenderness (Diffuse) Additional comments: Ostomy bags in place. Dark red/brown fluid noted in patient's bag for ileal conduit. - Extremities Exam Extremities exam: Present: warm. Absent: cyanotic, pedal edema - Neurological Exam Neurological exam: Present: oriented X3, no focal deficits. Absent: facial droop, speech deficit - Skin Skin exam: Present: dry, warm Internal Medicine: Result - Labs CBC & Chem 7: 09/07/17 02:48 09/07/17 02:48 Labs: Short CBC 09/07/17 Range/Units 02:48 WBC 5.8 (4.3-11.1) K/mcL Hgb 7.3 L (11.5-15.4) g/dL Hct 23.3 L (35.3-44.9) % Plt Count 73 L (140-400) K/mcL BMP 09/07/17 02:48 Sodium 139 Potassium 5.0 H Chloride 104 Carbon Dioxide 22 BUN 47 H D Creatinine 5.53 H Glucose 94 Calcium 7.8 L - ABG Interpretation ABG results: PT/INR, D-dimer PT 12.4 Seconds (9.4-12.1) H 09/02/17 05:00 Consult Discharge Plan - Plan Referrals: Na Johansen CNP [Primary Care Provider] - 09/17/17 1:00 pm <Timothy Bridges - Last Filed: 09/07/17 14:15> Date of Encounter: 09/07/17 - Assessment and plan (1) Pneumonia Current Visit: Yes Status: Acute Qualifiers: Pneumonia type: due to other aerobic Gram-negative bacteria Laterality: left Lung location: lower lobe of lung Qualified Code(s): J15.6 - Pneumonia due to other Gram-negative bacteria (2) Colitis Current Visit: Yes Status: Acute (3) Tobacco abuse Current Visit: No Status: Chronic (4) COPD (chronic obstructive pulmonary disease) Current Visit: Yes Status: Acute Qualifiers: COPD type: emphysema Emphysema type: panlobular Qualified Code(s): J43.1 - Panlobular emphysema (5) Anemia in CKD (chronic kidney disease) Current Visit: Yes Status: Chronic Qualifiers: Chronic kidney disease stage: on chronic dialysis Qualified Code(s): N18.6 - End stage renal disease; D63.1 - Anemia in chronic kidney disease; D63.1 - Anemia in chronic kidney disease; Z99.2 - Dependence on renal dialysis; Z99.2 - Dependence on renal dialysis; Z99.2 - Dependence on renal dialysis; Z99.2 - Dependence on renal dialysis (6) Atrial fibrillation Current Visit: Yes Status: Chronic Qualifiers: Atrial fibrillation type: chronic Qualified Code(s): I48.2 - Chronic atrial fibrillation (7) Hypothyroid Current Visit: Yes Status: Chronic Qualifiers: Hypothyroidism type: acquired Qualified Code(s): E03.9 - Hypothyroidism, unspecified (8) Ileostomy in place Current Visit: Yes Status: Chronic - Constitutional Vitals: Temp Pulse Resp BP Pulse Ox 99.0 F 87 18 138/61 94 09/07/17 13:29 09/07/17 13:29 09/07/17 13:29 09/07/17 13:29 09/07/17 13:29 Internal Medicine: Result - Labs CBC & Chem 7: 09/07/17 02:48 09/07/17 02:48 Labs: Short CBC 09/07/17 Range/Units 02:48 WBC 5.8 (4.3-11.1) K/mcL Hgb 7.3 L (11.5-15.4) g/dL Hct 23.3 L (35.3-44.9) % Plt Count 73 L (140-400) K/mcL BMP 09/07/17 02:48 Sodium 139 Potassium 5.0 H Chloride 104 Carbon Dioxide 22 BUN 47 H D Creatinine 5.53 H Glucose 94 Calcium 7.8 L - ABG Interpretation ABG results: PT/INR, D-dimer PT 12.4 Seconds (9.4-12.1) H 09/02/17 05:00 - Attending Attestation I examined this patient and my medical decision-making was reviewed with the Resident Physician on 09/07/17. I agree with the documented findings, disposition and treatment plan as described except to the extent set forth below. Ms Parra is currently admitted for pneumonia and colitis. She remains moderate to high risk due to potential for worsening respiratory status. Ms Parra is still having a lot of secretions. She is concerned about blood clots in fistula yesterday. No fever or chills. No CP now. Appetite OK. Exam Alert. Comfortable Mucus membranes dry Heart distant - hard to hear over lung sounds Lungs with anterior rhonchi Abd soft Edema present I/P 1. Pneumonia - hx of Stenotrophomonas. Cx pending 2. Collitis - should finish abx after tomorrow 3. ESRD Further diagnoses and plan as above.
[2017-09-07] MEDS: *HR* Morphine 2 MG/ML SYRINGE IVP PRN (18:54)
[2017-09-08] MEDS: Ondansetron 4 MG/2 ML VIAL IVP PRN ×4 (00:22→22:16)
[2017-09-08] MEDS: *HR* OxyCODONE Immed Rel 5 MG TABLET PO PRN ×2 (00:22→17:38)
[2017-09-08] MEDS: *HR* Heparin 5,000 UNIT/ML VIAL SQ SCH ×2 (02:57→17:01)
[2017-09-08] MEDS: Acetylcysteine 10% 2 ML INHSOL IH SCH ×5 (03:27→20:40)
[2017-09-08] MEDS: Ipratropium/Albuterol Neb 3 ML IH SCH ×5 (03:27→20:40)
[2017-09-08 04:43] LABS: Hemoglobin 7.4 g/dL (11.5-15.4); Red Cell Distribution Width 17.9 % (11.5-14.5)
[2017-09-08 04:44] LABS: Hematocrit 23.8 % (35.3-44.9); Immature Platelets 3.9 % (1.1-6.1); Mean Corpuscular HGB Conc 31.1 g/dL (31.6-35.5); Mean Corpuscular Volume 96.4 fL (83.0-100.0); Mean Platelet Volume 11.2 fL (9.4-12.4); Red Blood Count 2.47 M/mcL (3.82-4.97)
[2017-09-08 04:46] LABS: INR 1.3; Prothrombin Time 13.7 Seconds (9.4-12.1)
[2017-09-08 04:49] LABS: Activated Partial Thrombo Time 25.5 Seconds (26.0-36.0)
[2017-09-08] MEDS: *HR* Morphine 2 MG/ML SYRINGE IVP PRN ×2 (04:49→22:16)
[2017-09-08 04:56] LABS: Potassium 5.4 mEq/L (3.5-4.5)
[2017-09-08 04:57] LABS: Calcium 7.8 mg/dL (8.6-10.8)
[2017-09-08 06:01] LABS: Phosphorous 6.1 mg/dL (2.3-4.7)
--- NOTE | 2017-09-08 07:08 | Internal Med Progress Note ---
<Migue Griffiths - Last Filed: 09/08/17 10:33> Date of Encounter: 09/08/17 Time of Encounter: 07:06 - Assessment and plan (1) Pneumonia Current Visit: Yes Status: Acute Assessment and plan: CXR on 09/05/17 found increased infiltrate in the posterior left lower lobe concerning of pneumonia. Prior history of sputum cultures positive for Stenotrophomonas matlophilia and Pseudomonas aeruginosa. Sputum culture grew E. coli, resistant to Levaquin Empiric IV antibiotics: Cefipime (Day 1) and Flagyl (Day 7). Already received 3 days of Ciprofloxacin and 3 days Levaquin prior to switching to Cefepime based on sputum culture sensitivities. Blood cultures NGTD. Continue Duonebs, Mucinex, Mucomyst, incentive spirometry, HD, and supplemental oxygen. Continue to monitor. Qualifiers: Pneumonia type: due to Escherichia coli Laterality: left Lung location: lower lobe of lung Qualified Code(s): J15.5 - Pneumonia due to Escherichia coli (2) Colitis Current Visit: Yes Status: Acute Assessment and plan: CT abd/plv on admission found wall thickening of the colon at the splenic flexure with a small amount of adjacent fluid suggestive of colitis around splenic flexure. 09/07/[address] abd/plv reveals resolution of the previously identified wall thickening of the splenic flexure of the colon. Empiric IV antibiotics: Flagyl (Day 7) and Cefipime (Day 1). Already received 3 days of Ciprofloxacin and 3 days Levaquin prior to switching to Cefepime based on sputum culture sensitivities. Stool GI panel negative. Clinically improving as patient is tolerating oral diet. Pain control with prn IV morphine and oral Percocet. (3) COPD (chronic obstructive pulmonary disease) Current Visit: Yes Status: Acute Assessment and plan: Continue scheduled bronchodilators, Symbicort, prednisone, antibiotics, and supplemental oxygen. Qualifiers: COPD type: emphysema Emphysema type: panlobular Qualified Code(s): J43.1 - Panlobular emphysema (4) ESRD (end stage renal disease) on dialysis Current Visit: Yes Status: Chronic Assessment and plan: On HD MWF. SOB due to fluid overload. She was unable to have dialysis over the weekend because her dialysis fistula was not functioning. Anticipate fistulagram today per IR then resume HD as scheduled. Renally dose antibiotics Expressive Therapist following (5) Anemia in CKD (chronic kidney disease) Current Visit: Yes Status: Chronic Assessment and plan: Nephrology following Continue to monitor Qualifiers: Chronic kidney disease stage: on chronic dialysis Qualified Code(s): N18.6 - End stage renal disease; D63.1 - Anemia in chronic kidney disease; D63.1 - Anemia in chronic kidney disease; Z99.2 - Dependence on renal dialysis; Z99.2 - Dependence on renal dialysis; Z99.2 - Dependence on renal dialysis; Z99.2 - Dependence on renal dialysis (6) Atrial fibrillation Current Visit: No Status: Chronic Assessment and plan: Currently rate controlled. Continue beta lex. Not on long-term anticoagulation due to risk of falls. Qualifiers: Atrial fibrillation type: paroxysmal Qualified Code(s): I48.0 - Paroxysmal atrial fibrillation (7) Hypothyroid Current Visit: Yes Status: Chronic Assessment and plan: Continue Synthroid. Qualifiers: Hypothyroidism type: acquired Qualified Code(s): E03.9 - Hypothyroidism, unspecified (8) Ileostomy in place Current Visit: Yes Status: Chronic (9) Tobacco abuse Current Visit: No Status: Chronic Assessment and plan: Patient reports quitting just before this admission. Nicoderm patch as needed. (10) DVT prophylaxis Current Visit: Yes Status: Acute Assessment and plan: Continue SQ heparin. - Subjective Interval history: Patient seen and examined. Patient reports pink output from uroostomy and SOB due to fluid overload. She was unable to have dialysis over the weekend becuase her dialysis fistula was not functioning. Anticipate fistulagram today per IR then resume HD as scheduled. She denies fever, chills, CP, worsening abd pain, or leg edema. - Constitutional Vitals: Temp Pulse Resp BP Pulse Ox 98.1 F 81 18 126/59 94 09/08/17 03:55 09/08/17 03:55 09/08/17 03:55 09/08/17 03:55 09/08/17 03:55 General appearance: Present: cachectic, cooperative, A&O X 3, pleasant, no acute distress, answers questions appropriately - Head Head exam: Present: atraumatic, normal inspection, normocephalic - Eye Eye exam: Present: EOMI, PERRL, conjuntiva pink, sclera anicteric - ENT ENT exam: Present: mucous membranes moist, normal oropharynx - Neck Neck exam general surgery: Present: normal inspection, supple, trachea midline. Absent: thyromegaly - Respiratory Respiratory exam: Present: rales (coarse). Absent: accessory muscle use, respiratory distress - Cardiovascular Cardiovascular exam: Present: RRR, +S1, +S2 - GI/Abdominal GI/Abdominal exam: Present: soft, tenderness. Absent: distended, guarding Additional comments: right lower urostomy and left upper ileostomy in place - Extremities Exam Extremities exam: Present: full ROM, normal inspection, pedal edema (1+), warm - Back Exam Back exam: Present: normal inspection. Absent: paraspinal tenderness, tenderness - Neurological Exam Neurological exam: Present: alert, oriented X3, no focal deficits. Absent: altered, facial droop, speech deficit - Psychiatric Psychiatric exam: Present: normal affect, normal mood - Skin Skin exam: Present: dry, normal color, warm Internal Medicine: Result - Labs CBC & Chem 7: 09/08/17 03:55 09/08/17 03:55 Labs: Short CBC 09/08/17 Range/Units 03:55 WBC 6.4 (4.3-11.1) K/mcL Hgb 7.4 L (11.5-15.4) g/dL Hct 23.8 L (35.3-44.9) % Plt Count 74 L (140-400) K/mcL [facility] 09/07/17 09/08/17 02:48 03:55 Sodium 139 140 Potassium 5.0 H 5.4 H Chloride 104 105 Carbon Dioxide 22 17 L BUN 47 H D 61 H D Creatinine 5.53 H 6.88 H Glucose 94 78 Calcium 7.8 L 7.8 L - ABG Interpretation ABG results: PT/INR, D-dimer PT 13.7 Seconds (9.4-12.1) H 09/08/17 03:55 - Pulse Oximetry Interpretation Digit-Finger Pulse Oximetry Readin (on room air) - Impressions Impressions Abdomen/Pelvis CT 09/07/17 18:48 IMPRESSION: 1. No acute abnormality in the abdomen or pelvis. Resolution of the previously identified wall thickening of the splenic flexure of the colon. 2. Status post left lower quadrant diverting colostomy and multiple other sites of surgical intervention of the bowel. No bowel obstruction. Small volume of fluid in the left lower quadrant stoma. 3. Status post cholecystectomy. Unchanged biliary ductal dilatation. Recommend correlation with serum liver function tests. 4. Small bilateral pleural effusions left greater than right with bibasilar consolidative opacities compatible with atelectasis versus pneumonia. D/ / Nikolas Iniguez MD / Nikolas Iniguez MD Interpreting Provider: Nikolas Iniguez MD Consult Discharge Plan - Plan Referrals: Na Johansen LOG DRIVER [Primary Care Provider] - 09/17/17 1:00 pm <Timothy Bridges - Last Filed: 09/08/17 18:31> Date of Encounter: 09/08/17 - Assessment and plan (1) Pneumonia Current Visit: Yes Status: Acute Qualifiers: Pneumonia type: due to Escherichia coli Laterality: left Lung location: lower lobe of lung Qualified Code(s): J15.5 - Pneumonia due to Escherichia coli (2) Colitis Current Visit: Yes Status: Acute (3) Tobacco abuse Current Visit: No Status: Chronic (4) COPD (chronic obstructive pulmonary disease) Current Visit: Yes Status: Acute Qualifiers: COPD type: emphysema Emphysema type: panlobular Qualified Code(s): J43.1 - Panlobular emphysema (5) Anemia in CKD (chronic kidney disease) Current Visit: Yes Status: Chronic Qualifiers: Chronic kidney disease stage: on chronic dialysis Qualified Code(s): N18.6 - End stage renal disease; D63.1 - Anemia in chronic kidney disease; D63.1 - Anemia in chronic kidney disease; Z99.2 - Dependence on renal dialysis; Z99.2 - Dependence on renal dialysis; Z99.2 - Dependence on renal dialysis; Z99.2 - Dependence on renal dialysis (6) Atrial fibrillation Current Visit: Yes Status: Chronic Qualifiers: Atrial fibrillation type: chronic Qualified Code(s): I48.2 - Chronic atrial fibrillation (7) Hypothyroid Current Visit: Yes Status: Chronic Qualifiers: Hypothyroidism type: acquired Qualified Code(s): E03.9 - Hypothyroidism, unspecified (8) Ileostomy in place Current Visit: Yes Status: Chronic - Constitutional Vitals: Temp Pulse Resp BP Pulse Ox 98.2 F 82 20 114/63 95 09/08/17 11:44 09/08/17 14:36 09/08/17 14:36 09/08/17 14:36 09/08/17 14:36 Internal Medicine: Result - Labs CBC & Chem 7: 09/08/17 03:55 09/08/17 03:55 Labs: Short CBC 09/08/17 Range/Units 03:55 WBC 6.4 (4.3-11.1) K/mcL Hgb 7.4 L (11.5-15.4) g/dL Hct 23.8 L (35.3-44.9) % Plt Count 74 L (140-400) K/mcL BMP 09/07/17 09/08/17 02:48 03:55 Sodium 139 140 Potassium 5.0 H 5.4 H Chloride 104 105 Carbon Dioxide 22 17 L BUN 47 H D 61 H D Creatinine 5.53 H 6.88 H Glucose 94 78 Calcium 7.8 L 7.8 L - ABG Interpretation ABG results: PT/INR, D-dimer PT 13.7 Seconds (9.4-12.1) H 09/08/17 03:55 - Impressions Impressions Abdomen/Pelvis CT 09/07/17 18:48 IMPRESSION: 1. No acute abnormality in the abdomen or pelvis. Resolution of the previously identified wall thickening of the splenic flexure of the colon. 2. Status post left lower quadrant diverting colostomy and multiple other sites of surgical intervention of the bowel. No bowel obstruction. Small volume of fluid in the left lower quadrant stoma. 3. Status post cholecystectomy. Unchanged biliary ductal dilatation. Recommend correlation with serum liver function tests. 4. Small bilateral pleural effusions left greater than right with bibasilar consolidative opacities compatible with atelectasis versus pneumonia. D/ / Nikolas Iniguez MD / Nikolas Iniguez MD Interpreting Provider: Nikolas Iniguez MD Shunt Angiogram 09/08/17 00:00 IMPRESSION: Fistulogram and upper extremity venography demonstrated in normal fistula with normal venous outflow. No intervention was necessary. D/ / 09/08/2017 15:26:10 Ania Mason MD / david Interpreting Provider: Ania Mason MD Shunt Angiogram 09/08/17 00:00 IMPRESSION: Fistulogram and upper extremity venography demonstrated in normal fistula with normal venous outflow. No intervention was necessary. D/ / 09/08/2017 15:26:10 Ania Mason MD / david Interpreting Provider: Ania Mason MD - Attending Attestation I examined this patient and my medical decision-making was reviewed with the Resident Physician on 09/08/17. I agree with the documented findings, disposition and treatment plan as described except to the extent set forth below. Ms Parra has been admitted for acute colitis and pneumonia. She remains moderate to high risk due to potential for worsening respiratory status. Ms Parra feels about the same. She is still congested. To have dialysis today. No fever or chills. Had some clots in urine last night. Exam Alert. Comfortable Heart reg Lungs with rhonchi Abd soft and nontender Edema present I/P 1. Colitis - Flagyl complete today 2. PNA - on IV abx Further diagnoses and plan as above.
[2017-09-08] MEDS: Budesonide/Formoterol 80/4.5 MDI IH SCH ×2 (07:54→20:40)
[2017-09-08] MEDS ORDERED: Piperacillin/Tazobactam 3.375 GM in D5% in Water 50 ML IVPB SCH ×2 (08:15→08:30)
[2017-09-08] MEDS: Calcium Acetate 667 MG CAPSULE PO SCH ×3 (08:20→17:01)
[2017-09-08 08:36] LABS: Magnesium 1.6 mg/dL (1.6-2.6)
[2017-09-08] MEDS: predniSONE 20 MG TABLET PO SCH (08:39)
[2017-09-08] MEDS: Diltiazem CD (24hr) 120 MG CAPSULE PO SCH (08:39)
[2017-09-08] MEDS: Renal Vitamin 1 MG CAPSULE PO SCH (08:40)
[2017-09-08] MEDS: metroNIDAZOLE 500 MG TABLET PO SCH (08:40)
[2017-09-08] MEDS ORDERED: 0.9 % Sodium Chloride 250 ML IVC PRN (09:52)
[2017-09-08] MEDS ORDERED: 0.9 % Sodium Chloride 1,000 ML PRIME SCH (10:00)
[2017-09-08] MEDS: cefTRIAXone 2,000 MG in Water for inj. (sterile) 20 ML IVP SCH (11:12)
--- NOTE | 2017-09-08 12:13 | Nephrology Progress Note ---
Date of Encounter: 09/08/17 Time of Encounter: 12:15 - Assessment and Plan (1) Anemia in CKD (chronic kidney disease) Current Visit: Yes Status: Chronic Qualifiers: Chronic kidney disease stage: on chronic dialysis Qualified Code(s): N18.6 - End stage renal disease; D63.1 - Anemia in chronic kidney disease; D63.1 - Anemia in chronic kidney disease; Z99.2 - Dependence on renal dialysis; Z99.2 - Dependence on renal dialysis; Z99.2 - Dependence on renal dialysis; Z99.2 - Dependence on renal dialysis (2) ESRD (end stage renal disease) on dialysis Current Visit: Yes Status: Chronic Subjective Principal diagnosis: ESRD Interval history: Interim noted, pt seen and examined Objective - Vital Signs Vital signs: Vital Signs Temp Pulse Resp BP Pulse Ox 09/08/17 11:44 98.2 F 86 18 103/55 90 09/08/17 08:05 98.4 F 77 18 121/60 96 09/08/17 07:56 18 95 09/08/17 03:55 98.1 F 81 18 126/59 94 09/08/17 03:27 16 97 09/07/17 23:35 17 96 09/07/17 20:20 98.2 F 76 18 121/53 97 09/07/17 19:51 18 96 09/07/17 16:19 18 95 09/07/17 16:00 98.3 F 79 18 132/62 96 09/07/17 13:29 99.0 F 87 18 138/61 94 Intake and Output 09/07/17 09/08/17 09/08/17 23:59 07:59 15:59 Intake Total 480 / 480 Balance 480 / 480 Intake: Oral 480 / 480 Other: Meal Dinner Percent of Meal Consumed 100% Weight 61 kg Blood Glucose* 141 100 Patient Weight 09/08/17 23:59 Weight 61 kg - Lab 09/08/17 03:55 09/08/17 03:55 Most recent lab results Calcium 7.8 mg/dL (8.6-10.8) L 09/08/17 03:55 Phosphorus 6.1 mg/dL (2.3-4.7) H 09/07/17 02:48 Magnesium 1.6 mg/dL (1.6-2.6) 09/08/17 03:55 Consult Discharge Plan - Plan Referrals: Na Johansen, TYLER [Primary Care Provider] - 09/17/17 1:00 pm
[2017-09-08] MEDS ORDERED: Heparin 1,000 UNITS/500 mL NS 500 ML ONE (13:10)
[2017-09-08] MEDS ORDERED: 0.9 % Sodium Chloride 500 ML ONE ×2 (13:11→14:33)
[2017-09-08] MEDS ORDERED: *HR* FentaNYL (PF) 100 MCG/2 ML VIAL IVP ONE (14:19)
[2017-09-08] MEDS ORDERED: *HR* Midazolam HCl 2 MG/2 ML VIAL IVP ONE (14:19)
--- NOTE | 2017-09-08 14:20 | Pre-Sedation Evaluation ---
Pre-sedation evaluation - Pre-sedation checklist Date of procedure: 09/08/17 Procedure: exploratory surgery on fistula Recent Vitals: Last Vital Signs Temp 98.2 F 09/08/17 11:44 Pulse 86 09/08/17 11:44 Resp 18 09/08/17 11:44 BP 103/55 09/08/17 11:44 Pulse Ox 90 09/08/17 11:44 H&P (including ROS) documented in medical record: Yes Previous reaction to sedatives/anesthetics: No Dietary Status: NPO after Midnight Airway Assessment: Patient can open mouth completely, TMJ function normal, Micrognathia (under-bite, receding chin) absent, Neck with adequate range of motion Dentition: dentures removed Possible difficult airway: No ASA Classification *see protocol: CLASS II-Mild systemic disease Plan of Care: Pt appropriate candidate for procedure/moderate/conscious sedation , Risks/benefits of procedure/sedation discussed w/ patient/family, If not NPO; Risk of intake outweiged by necessity to perform procedure
--- NOTE | 2017-09-08 15:07 | IR Procedure Note ---
Date of procedure: 09/08/17 Consent Obtained: Written consent Timeout: Correct patient and procedure verified, Correct site verified, Time out performed, Skin prep completed Indications: Malfunctioning left arm fistula Procedure Performed: Fistulogram, upper extremity venogram Site/Technique: lt side, 5 F dilators Results/Findings: normal Estimated blood loss (cc): 4 Complications: None; Tolerated procedure well Post Procedure Treatment Plan: dc to floor
[2017-09-08] MEDS ORDERED: Cefepime HCl 2,000 MG in Water for inj. (sterile) 20 ML IVP SCH (18:00)
[2017-09-08] MEDS ORDERED: 0.9 % Sodium Chloride 1,000 ML ONE (19:37)
[2017-09-09] MEDS: Ipratropium/Albuterol Neb 3 ML IH SCH ×6 (00:22→20:38)
[2017-09-09] MEDS: Acetylcysteine 10% 2 ML INHSOL IH SCH ×6 (00:22→20:39)
[2017-09-09] MEDS: *HR* Heparin 5,000 UNIT/ML VIAL SQ SCH ×2 (05:35→16:55)
[2017-09-09] MEDS: Ondansetron 4 MG/2 ML VIAL IVP PRN (05:39)
[2017-09-09 05:57] LABS: Hematocrit 24.6 % (35.3-44.9); Hemoglobin 7.6 g/dL (11.5-15.4); Immature Platelets 5.6 % (1.1-6.1); Mean Corpuscular HGB Conc 30.9 g/dL (31.6-35.5); Mean Corpuscular Hemoglobin 29.3 pg (28.0-33.3); Mean Platelet Volume 11.8 fL (9.4-12.4); Red Blood Count 2.59 M/mcL (3.82-4.97)
[2017-09-09 06:09] LABS: Calcium 8.6 mg/dL (8.6-10.8); Magnesium 1.7 mg/dL (1.6-2.6); Phosphorous 6.1 mg/dL (2.3-4.7)
[2017-09-09 06:10] LABS: Potassium 4.2 mEq/L (3.5-4.5)
[2017-09-09] MEDS: Budesonide/Formoterol 80/4.5 MDI IH SCH ×2 (08:10→20:39)
[2017-09-09] MEDS: cefTRIAXone 2,000 MG in Water for inj. (sterile) 20 ML IVP SCH (10:04)
[2017-09-09] MEDS: Calcium Acetate 667 MG CAPSULE PO SCH ×3 (10:04→16:55)
[2017-09-09] MEDS: Diltiazem CD (24hr) 120 MG CAPSULE PO SCH (10:04)
[2017-09-09] MEDS: Renal Vitamin 1 MG CAPSULE PO SCH (10:04)
[2017-09-09] MEDS: predniSONE 20 MG TABLET PO SCH (10:04)
[2017-09-09] MEDS: *HR* OxyCODONE Immed Rel 5 MG TABLET PO PRN ×2 (10:14→21:54)
[2017-09-09] MEDS: *HR* Promethazine 25 MG/ML VIAL IVP PRN ×2 (10:14→17:33)
--- NOTE | 2017-09-09 16:54 | Internal Med Progress Note ---
Date of Encounter: 09/09/17 Time of Encounter: 10:50 - Assessment and plan (1) Pneumonia Current Visit: Yes Status: Acute Assessment and plan: CXR - worsening left lower lobe opacity Prior history of sputum cultures positive for Stenotrophomonas matlophilia and Pseudomonas aeruginosa. Sputum culture grew E. coli, resistant to Levaquin Empiric IV antibiotics: Rocephin, Azithromycin Already received 3 days of Ciprofloxacin and 3 days Levaquin prior to switching to Cefepime based on sputum culture sensitivities Sputum cultures - E.coli Continue Duonebs, Mucinex, Mucomyst, incentive spirometry, HD, and supplemental oxygen. Continue to monitor Qualifiers: Pneumonia type: due to Escherichia coli Laterality: left Lung location: lower lobe of lung Qualified Code(s): J15.5 - Pneumonia due to Escherichia coli (2) COPD (chronic obstructive pulmonary disease) Current Visit: Yes Status: Acute Assessment and plan: Continue scheduled bronchodilators, Symbicort, prednisone, antibiotics, and supplemental oxygen Qualifiers: COPD type: emphysema Emphysema type: panlobular Qualified Code(s): J43.1 - Panlobular emphysema (3) Anemia in CKD (chronic kidney disease) Current Visit: Yes Status: Chronic Assessment and plan: Nephrology following Continue to monitor Qualifiers: Chronic kidney disease stage: on chronic dialysis Qualified Code(s): N18.6 - End stage renal disease; D63.1 - Anemia in chronic kidney disease; D63.1 - Anemia in chronic kidney disease; Z99.2 - Dependence on renal dialysis; Z99.2 - Dependence on renal dialysis; Z99.2 - Dependence on renal dialysis; Z99.2 - Dependence on renal dialysis (4) Colitis Current Visit: Yes Status: Acute Assessment and plan: CT abd/plv on admission found wall thickening of the colon at the splenic flexure with a small amount of adjacent fluid suggestive of colitis around splenic flexure. 09/07/[address] abd/plv reveals resolution of the previously identified wall thickening of the splenic flexure of the colon. Empiric IV antibiotics: Flagyl (Day 7) and Cefipime (Day 1). Already received 3 days of Ciprofloxacin and 3 days Levaquin prior to switching to Cefepime based on sputum culture sensitivities. Stool GI panel negative Clinically improving as patient is tolerating oral diet. Pain control with prn IV morphine and oral Percocet (5) ESRD (end stage renal disease) on dialysis Current Visit: Yes Status: Chronic Assessment and plan: On HD MWF SOB due to fluid overload. She was unable to have dialysis over the weekend because her dialysis fistula was not functioning. Anticipate fistulagram today per IR then resume HD as scheduled. Renally dose antibiotics Weight Analyst following (6) Tobacco abuse Current Visit: No Status: Chronic Assessment and plan: Patient reports quitting just before this admission. Nicoderm patch as needed (7) Atrial fibrillation Current Visit: Yes Status: Chronic Assessment and plan: Currently rate controlled. Continue beta lex. Not on long-term anticoagulation due to risk of falls Qualifiers: Atrial fibrillation type: chronic Qualified Code(s): I48.2 - Chronic atrial fibrillation (8) DVT prophylaxis Current Visit: Yes Status: Acute Assessment and plan: Continue SQ Heparin - Time Spent With Patient 25 - 35 minutes - Subjective Interval history: Examined this morning. Patient is awake and alert. She is in discomfort due to cough and shortness of breath. Denies chest pain. Complains of persistent shortness of breath which is worse with exertion. She also complains of productive cough with yellow colored sputum. No fever. Hemodynamically stable. Chest x-ray is concerning for left lower lobe pneumonia. Azithromycin has been added. - Constitutional Vitals: Temp Pulse Resp BP Pulse Ox 98.5 F 81 19 104/66 92 09/09/17 14:44 09/09/17 14:44 09/09/17 14:44 09/09/17 14:44 09/09/17 14:44 General appearance: Present: cachectic, cooperative, mild distress, A&O X 3, pleasant, underweight, answers questions appropriately Exam: Chronically ill-appearing - Head Head exam: Present: atraumatic - Eye Eye exam: Present: EOMI - ENT ENT exam: Present: mucous membranes moist - Respiratory Respiratory exam: Present: accessory muscle use, rhonchi (Bilateral coarse breath sounds), wheezes (Bilateral). Absent: rales, tachypnea - Cardiovascular Cardiovascular exam: Present: RRR, +S1, +S2 - GI/Abdominal GI/Abdominal exam: Present: soft. Absent: distended, firm, guarding, tenderness - Extremities Exam Extremities exam: Present: radial pulses palpable and symmetrical. Absent: calf tenderness, cyanotic, pedal edema Additional comments: Left upper arm AV fistula - Neurological Exam Neurological exam: Present: alert, oriented X3, no focal deficits. Absent: facial droop, speech deficit Internal Medicine: Result - Labs CBC & Chem 7: 09/09/17 05:52 09/09/17 05:52 Labs: Short CBC 09/09/17 Range/Units 05:52 WBC 8.5 (4.3-11.1) K/mcL Hgb 7.6 L (11.5-15.4) g/dL Hct 24.6 L (35.3-44.9) % Plt Count 80 L (140-400) K/mcL BMP 09/09/17 05:52 Sodium 142 Potassium 4.2 D Chloride 104 Carbon Dioxide 23 BUN 42 H D Creatinine 4.96 H Glucose 79 Calcium 8.6 - ABG Interpretation ABG results: PT/INR, D-dimer PT 13.7 Seconds (9.4-12.1) H 09/08/17 03:55 - Impressions Impressions Chest X-Ray 09/09/17 11:16 IMPRESSION: 1. Worsening left base opacity with pleural effusion, concerning for pneumonia. 2. COPD. 3. Stable right chest wall [employer]. D/ / 09/09/2017 11:55:39 Bailey Arnold MD / pablo Interpreting Provider: Bailey Arnold MD Consult Discharge Plan - Plan Referrals: Na Johansen, TYLER [Primary Care Provider] - 09/17/17 1:00 pm
[2017-09-09] MEDS: Azithromycin 500 MG in D5% in Water 250 ML IVPB SCH (17:33)
[2017-09-09] MEDS: Famotidine 20 MG TABLET PO SCH (21:53)
[2017-09-09] MEDS: Lactobacillus 1 EACH CAP.SPRINK PO SCH (21:54)
--- NOTE | 2017-09-09 22:58 | Nephrology Progress Note ---
Date of Encounter: 09/09/17 Time of Encounter: 10:30 - Assessment and Plan (1) Anemia in CKD (chronic kidney disease) Current Visit: Yes Status: Chronic Hgb remains poor at 7.6 likely due to a combination of prior bleeds, ESRD and iron def Continue iron supplements Will consider dosing with EPO Qualifiers: Chronic kidney disease stage: on chronic dialysis Qualified Code(s): N18.6 - End stage renal disease; D63.1 - Anemia in chronic kidney disease; D63.1 - Anemia in chronic kidney disease; Z99.2 - Dependence on renal dialysis; Z99.2 - Dependence on renal dialysis; Z99.2 - Dependence on renal dialysis; Z99.2 - Dependence on renal dialysis (2) ESRD (end stage renal disease) on dialysis Current Visit: Yes Status: Chronic Next HD planned for HD with aggressive UF as tolerated SOB more likely due to her persistent PNA than fluid overload Lytes stabilized and WNL except phos, continue binders with meals (3) Pneumonia Current Visit: Yes Status: Acute Continue anntibiotics per primary team Agree with pulm toilet as well Qualifiers: Pneumonia type: due to Escherichia coli Laterality: left Lung location: lower lobe of lung Qualified Code(s): J15.5 - Pneumonia due to Escherichia coli Subjective Principal diagnosis: ESRD Interval history: Interim noted, pt seen and examined s/p fistulogram and HD yetsreday. Pt still reports not feeling good today due to her continued SOB despite HD with a very wet cough noted. She also appears forgetful as well. Objective - Vital Signs Vital signs: Vital Signs Temp Pulse Resp BP Pulse Ox 09/09/17 22:47 97.8 F 82 20 121/63 96 09/09/17 20:41 16 97 09/09/17 19:18 97.7 F 85 16 117/58 98 09/09/17 17:07 18 92 09/09/17 14:44 98.5 F 81 19 104/66 92 09/09/17 10:59 98.3 F 79 19 114/56 94 09/09/17 08:09 18 93 09/09/17 07:11 98.4 F 87 18 112/51 93 09/09/17 04:57 98.2 F 83 18 119/62 94 09/09/17 04:47 17 93 09/09/17 00:22 18 95 09/08/17 23:12 98.6 F 93 97 114/60 95 Intake and Output 09/09/17 09/09/17 09/09/17 07:59 15:59 23:59 Intake Total 380 / 380 Balance 380 / 380 Intake: IV Fluids 20 Rocephin 2,000 MG In Water for 20 20 inj. (sterile) 20 ML @ 600 mls/ hr IVP Q24H MARIANO Rx#:[id number] Oral 360 / 360 Other: Meal Lunch Percent of Meal Consumed 90% Weight 48.591 kg Blood Glucose* 86 90 183 Patient Weight 09/09/17 23:59 Weight 48.591 kg - General Appearance General appearance: Present: frail (NAD) EENT: Present: ATNC, mucous membranes moist Neck: Present: no JVD, supple Respiratory: Present: course breath sounds Cardiology: Present: no edema, normal S1, normal S2 Dialysis Vascular Access: Arteriovenous Fistula thrill: Yes bruit: Yes Gastrointestinal: Present: no tenderness, no guarding (+ostomy) Integumentary: Present: warm and dry Neurologic: Present: no focal deficit Musculoskeletal: Present: no deformities Psychiatric: Present: mood/affect appropriate, cooperative - Lab 09/09/17 05:52 09/09/17 05:52 Most recent lab results Calcium 8.6 mg/dL (8.6-10.8) 09/09/17 05:52 Phosphorus 6.1 mg/dL (2.3-4.7) H 09/09/17 05:52 Magnesium 1.7 mg/dL (1.6-2.6) 09/09/17 05:52 Consult Discharge Plan - Plan Referrals: Na Johansen CNP [Primary Care Provider] - 09/17/17 1:00 pm
[2017-09-10] MEDS: Acetylcysteine 10% 2 ML INHSOL IH SCH ×7 (00:03→23:38)
[2017-09-10] MEDS: Ipratropium/Albuterol Neb 3 ML IH SCH ×7 (00:03→23:38)
[2017-09-10] MEDS: Ondansetron 4 MG/2 ML VIAL IVP PRN ×3 (00:19→22:58)
[2017-09-10] MEDS: *HR* Morphine 2 MG/ML SYRINGE IVP PRN (00:19)
[2017-09-10 05:53] LABS: Basophils % 0.1 %; Hematocrit 25.1 % (35.3-44.9); Hemoglobin 7.7 g/dL (11.5-15.4); Immature Granulocytes % 0.4 % (0-4); Lymphocytes # 0.9 K/mcL (0.6-4.6); Mean Corpuscular HGB Conc 30.7 g/dL (31.6-35.5); Mean Corpuscular Hemoglobin 29.5 pg (28.0-33.3); Mean Corpuscular Volume 96.2 fL (83.0-100.0); Mean Platelet Volume 11.5 fL (9.4-12.4); Monocytes # 0.2 K/mcL (0.0-1.3); Monocytes % 2.9 %; Neutrophils # 6.9 K/mcL (1.6-8.9); Platelet Count 82 K/mcL (140-400); Red Blood Count 2.61 M/mcL (3.82-4.97); Red Cell Distribution Width 17.9 % (11.5-14.5); Segmented Neutrophils % 85.6 %
[2017-09-10] MEDS: *HR* Heparin 5,000 UNIT/ML VIAL SQ SCH ×2 (05:55→17:17)
[2017-09-10 06:05] LABS: Calcium 7.6 mg/dL (8.6-10.8); Potassium 4.3 mEq/L (3.5-4.5)
[2017-09-10] MEDS: *HR* OxyCODONE Immed Rel 5 MG TABLET PO PRN ×2 (07:36→18:25)
[2017-09-10] MEDS: Cholecalciferol (D-3) 1,000 UNIT TABLET PO SCH (07:37)
[2017-09-10] MEDS: Renal Vitamin 1 MG CAPSULE PO SCH (07:37)
[2017-09-10] MEDS: predniSONE 20 MG TABLET PO SCH (07:37)
[2017-09-10] MEDS: Calcium Acetate 667 MG CAPSULE PO SCH ×3 (07:38→17:17)
[2017-09-10] MEDS: Diltiazem CD (24hr) 120 MG CAPSULE PO SCH (07:38)
[2017-09-10] MEDS: Lactobacillus 1 EACH CAP.SPRINK PO SCH ×2 (07:38→20:28)
[2017-09-10] MEDS: Budesonide/Formoterol 80/4.5 MDI IH SCH ×2 (07:59→20:15)
[2017-09-10] MEDS ORDERED: 0.9 % Sodium Chloride 250 ML IVC PRN (08:00)
[2017-09-10] MEDS ORDERED: Renal Vitamin 1 MG CAPSULE PO SCH (09:00)
[2017-09-10] MEDS: *HR* Promethazine 25 MG/ML VIAL IVP PRN ×2 (10:37→20:33)
[2017-09-10] MEDS ORDERED: 0.9 % Sodium Chloride 2,000 ML ONE (11:17)
--- NOTE | 2017-09-10 11:42 | Nephrology Progress Note ---
Date of Encounter: 09/10/17 Time of Encounter: 11:40 - Assessment and Plan (1) ESRD (end stage renal disease) on dialysis Current Visit: Yes Status: Chronic Access site swollen and bruised Two attempts by HD nurse to cannulate. Fistulogram and upper extremity venography done 09/08 showed normal fistula with normal venous outflow; no intervention was necessary Will have medic technician from [facility] where patient normally goes come and try to cannulate patient's access Avoid nephrotoxins if possible (2) Colitis Current Visit: Yes Status: Acute per primary team (3) Pneumonia Current Visit: Yes Status: Acute per primary team Qualifiers: Pneumonia type: due to Escherichia coli Laterality: left Lung location: lower lobe of lung Qualified Code(s): J15.5 - Pneumonia due to Escherichia coli Subjective Principal diagnosis: ESRD Interval history: Patient seen and examined in dialysis. States she is feels terrible. HD nurse tried to cannulate access by was unsuccessful x 2. Objective - Vital Signs Vital signs: Vital Signs Temp Pulse Resp BP Pulse Ox 09/10/17 08:00 20 94 09/10/17 07:36 97.8 F 88 20 122/65 94 09/10/17 03:40 16 89 09/10/17 03:00 98.1 F 78 20 106/53 92 09/10/17 00:04 17 97 09/09/17 22:47 97.8 F 82 20 121/63 96 09/09/17 20:41 16 97 09/09/17 19:18 97.7 F 85 16 117/58 98 09/09/17 17:07 18 92 09/09/17 14:44 98.5 F 81 19 104/66 92 Intake and Output 09/09/17 09/10/17 09/10/17 23:59 07:59 15:59 Intake Total 100 / 100 120 / 120 Output Total 0 / 0 Balance 100 / 100 120 / 120 Intake: Oral 100 / 100 120 / 120 Output: Urine 0 / 0 Other: Meal Breakfast Percent of Meal Consumed 15% Weight 60.781 kg Blood Glucose* 183 114 Patient Weight 09/10/17 23:59 Weight 60.781 kg - General Appearance General appearance: Present: cachectic, chronically ill, frail EENT: Present: ATNC, hearing intact, vision intact Neck: Present: supple Respiratory: Present: course breath sounds, rhonchi Cardiology: Present: no edema, normal S1, normal S2 Dialysis Vascular Access: Arteriovenous Fistula Gastrointestinal: Present: no tenderness, no guarding Integumentary: Present: warm and dry Neurologic: Present: alert and oriented x3 Psychiatric: Present: mood/affect appropriate, cooperative - Lab 09/10/17 05:45 09/10/17 05:45 Most recent lab results Calcium 7.6 mg/dL (8.6-10.8) L 09/10/17 05:45 Phosphorus 6.1 mg/dL (2.3-4.7) H 09/09/17 05:52 Magnesium 1.7 mg/dL (1.6-2.6) 09/09/17 05:52 Consult Discharge Plan - Plan Referrals: Na Johansen CNP [Primary Care Provider] - 09/17/17 1:00 pm
[2017-09-10] MEDS: cefTRIAXone 2,000 MG in Water for inj. (sterile) 20 ML IVP SCH (15:39)
--- NOTE | 2017-09-10 15:54 | Internal Med Progress Note ---
Date of Encounter: 09/10/17 Time of Encounter: 15:40 - Assessment and plan (1) Pneumonia Current Visit: Yes Status: Acute Assessment and plan: Left lower lobe Pneumonia, present on admission - symptoms persistent CXR - worsening left lower lobe opacity Prior history of sputum cultures positive for Stenotrophomonas matlophilia and Pseudomonas aeruginosa Sputum culture - E. coli - continue IV Rocephin, Azithromycin Already received 3 days of Ciprofloxacin and 3 days Levaquin prior to switching to Cefepime based on sputum culture sensitivities Sputum cultures - E.coli Continue Duonebs, Mucinex, Mucomyst, incentive spirometry, HD, and supplemental oxygen Continue to monitor 09/10 - patient continues to have productive cough yellow colored sputum, no shortness of breath, no fever, tolerated HD today Qualifiers: Pneumonia type: due to Escherichia coli Laterality: left Lung location: lower lobe of lung Qualified Code(s): J15.5 - Pneumonia due to Escherichia coli (2) COPD (chronic obstructive pulmonary disease) Current Visit: Yes Status: Acute Assessment and plan: Continue scheduled bronchodilators Symbicort, prednisone, antibiotics, and supplemental oxygen Qualifiers: COPD type: emphysema Emphysema type: panlobular Qualified Code(s): J43.1 - Panlobular emphysema (3) Anemia in CKD (chronic kidney disease) Current Visit: Yes Status: Chronic Assessment and plan: Nephrology following Continue to monitor Qualifiers: Chronic kidney disease stage: on chronic dialysis Qualified Code(s): N18.6 - End stage renal disease; D63.1 - Anemia in chronic kidney disease; D63.1 - Anemia in chronic kidney disease; Z99.2 - Dependence on renal dialysis; Z99.2 - Dependence on renal dialysis; Z99.2 - Dependence on renal dialysis; Z99.2 - Dependence on renal dialysis (4) Colitis Current Visit: Yes Status: Acute Assessment and plan: CT abd/plv on admission - wall thickening of the colon at the splenic flexure with a small amount of adjacent fluid suggestive of colitis around splenic flexure 09/07/[address] abd/plv reveals resolution of the previously identified wall thickening of the splenic flexure of the colon Empiric IV Flagyl (Day 7) and Cefipime completed Already received 3 days of Ciprofloxacin and 3 days Levaquin prior to switching to Cefepime based on sputum culture sensitivities Stool GI panel negative Clinically improving as patient is tolerating oral diet Pain control with prn IV morphine and oral Percocet (5) ESRD (end stage renal disease) on dialysis Current Visit: Yes Status: Chronic Assessment and plan: On HD MWF - tolerated HD well today SOB due to fluid overload She was unable to have dialysis over the weekend because her dialysis fistula was not functioning - fistulagram done by IR Renally dose antibiotics Pad Machine Offbearer following (6) Tobacco abuse Current Visit: No Status: Chronic Assessment and plan: Patient reports quitting just before this admission Nicoderm patch as needed (7) Atrial fibrillation Current Visit: Yes Status: Chronic Assessment and plan: Currently rate controlled. Continue beta lex Not on long-term anticoagulation due to risk of falls Qualifiers: Atrial fibrillation type: chronic Qualified Code(s): I48.2 - Chronic atrial fibrillation (8) DVT prophylaxis Current Visit: Yes Status: Acute Assessment and plan: Continue SQ Heparin - Time Spent With Patient 25 - 35 minutes - Subjective Interval history: Examined this morning. Patient is awake and alert. She is in discomfort due to cough. Denies chest pain. Complains of persistent productive cough with yellow colored sputum. No alleviating factors. No fever. Hemodynamically stable. Chest x-ray is concerning for left lower lobe pneumonia. Azithromycin has been added. DuoNeb breathing treatment continued. No other acute events or complaints. - Constitutional Vitals: Temp Pulse Resp BP Pulse Ox 98.0 F 88 18 106/54 94 09/10/17 14:50 09/10/17 07:36 09/10/17 14:50 09/10/17 14:50 09/10/17 08:00 General appearance: Present: cachectic, cooperative, mild distress, A&O X 3, pleasant, underweight, answers questions appropriately Exam: Chronically ill-appearing - Head Head exam: Present: atraumatic - Eye Eye exam: Present: EOMI - ENT ENT exam: Present: mucous membranes moist - Respiratory Respiratory exam: Present: rhonchi (Bilateral coarse breath sounds), wheezes ( Bilateral). Absent: accessory muscle use, chest wall tenderness, rales, tachypnea - Cardiovascular Cardiovascular exam: Present: RRR, +S1, +S2 - GI/Abdominal GI/Abdominal exam: Present: soft. Absent: distended, firm, guarding, tenderness Additional comments: Colostomy bag in place and site looks okay. Urostomy bag is also in place and site looks okay - Extremities Exam Extremities exam: Present: radial pulses palpable and symmetrical. Absent: calf tenderness, cyanotic, pedal edema Additional comments: Left upper arm AV fistula - Neurological Exam Neurological exam: Present: alert, oriented X3, no focal deficits. Absent: facial droop, speech deficit Internal Medicine: Result - Labs CBC & Chem 7: 09/10/17 05:45 09/10/17 05:45 Labs: Short CBC 09/10/17 Range/Units 05:45 WBC 8.0 (4.3-11.1) K/mcL Hgb 7.7 L (11.5-15.4) g/dL Hct 25.1 L (35.3-44.9) % Plt Count 82 L (140-400) K/mcL Neutrophils # 6.9 (1.6-8.9) K/mcL BMP 09/10/17 05:45 Sodium 140 Potassium 4.3 Chloride 105 Carbon Dioxide 19 BUN 59 H D Creatinine 6.41 H Glucose 148 H Calcium 7.6 L - ABG Interpretation ABG results: PT/INR, D-dimer PT 13.7 Seconds (9.4-12.1) H 09/08/17 03:55 - Impressions Impressions Chest X-Ray 09/09/17 11:16 IMPRESSION: 1. Worsening left base opacity with pleural effusion, concerning for pneumonia. 2. COPD. 3. Stable right chest wall [employer]. D/ / 09/09/2017 11:55:39 Bailey Arnold MD / pablo Interpreting Provider: Bailey Arnold MD Consult Discharge Plan - Plan Referrals: Na Johansen, TYLER [Primary Care Provider] - 09/17/17 1:00 pm
[2017-09-10] MEDS: Azithromycin 500 MG in D5% in Water 250 ML IVPB SCH (17:17)
[2017-09-10] MEDS: Famotidine 20 MG TABLET PO SCH (20:29)
[2017-09-11] MEDS: Acetylcysteine 10% 2 ML INHSOL IH SCH ×6 (04:05→23:34)
[2017-09-11] MEDS: Ipratropium/Albuterol Neb 3 ML IH SCH ×6 (04:06→23:34)
[2017-09-11] MEDS: *HR* Promethazine 25 MG/ML VIAL IVP PRN ×3 (04:31→21:23)
[2017-09-11 04:56] LABS: Eosinophils % 0.1 %; Immature Granulocytes % 0.3 % (0-4); Lymphocytes % 10.1 %; Mean Corpuscular HGB Conc 30.4 g/dL (31.6-35.5); Mean Corpuscular Hemoglobin 29.2 pg (28.0-33.3); Mean Corpuscular Volume 95.8 fL (83.0-100.0); Mean Platelet Volume 12.5 fL (9.4-12.4); Monocytes # 0.2 K/mcL (0.0-1.3); Monocytes % 2.5 %; Neutrophils # 8.3 K/mcL (1.6-8.9); Red Cell Distribution Width 17.8 % (11.5-14.5)
[2017-09-11 04:58] LABS: Platelet Count 78 K/mcL (140-400)
[2017-09-11 05:12] LABS: Calcium 7.6 mg/dL (8.6-10.8); Potassium 3.8 mEq/L (3.5-4.5)
[2017-09-11] MEDS: *HR* Heparin 5,000 UNIT/ML VIAL SQ SCH ×2 (05:46→17:21)
[2017-09-11] MEDS: *HR* OxyCODONE Immed Rel 5 MG TABLET PO PRN ×2 (06:01→13:24)
[2017-09-11] MEDS: Lactobacillus 1 EACH CAP.SPRINK PO SCH ×2 (07:43→21:28)
[2017-09-11] MEDS: Diltiazem CD (24hr) 120 MG CAPSULE PO SCH (07:43)
[2017-09-11] MEDS: Cholecalciferol (D-3) 1,000 UNIT TABLET PO SCH (07:43)
[2017-09-11] MEDS: predniSONE 20 MG TABLET PO SCH (07:43)
[2017-09-11] MEDS: Renal Vitamin 1 MG CAPSULE PO SCH (07:44)
[2017-09-11] MEDS: Calcium Acetate 667 MG CAPSULE PO SCH ×3 (07:44→17:21)
[2017-09-11] MEDS: Budesonide/Formoterol 80/4.5 MDI IH SCH ×2 (07:47→19:47)
--- NOTE | 2017-09-11 11:05 | Nephrology Progress Note ---
Date of Encounter: 09/11/17 Time of Encounter: 11:02 - Assessment and Plan (1) ESRD (end stage renal disease) on dialysis Current Visit: Yes Status: Chronic Plan for HD tomorrow Patient requests refill on EMLA cream for when she is discharged-Yamilet Balderas HD nurse notified to refill cream Patient concerned about her transportation to dialysis when discharged; says it always get messed up when she has been admitted to hospital. Will need aids social worker to make sure transportation is back in place once patient discharged Avoid nephrotoxins if possible (2) Colitis Current Visit: Yes Status: Acute per primary team (3) Pneumonia Current Visit: Yes Status: Acute per primary team Qualifiers: Pneumonia type: due to Escherichia coli Laterality: left Lung location: lower lobe of lung Qualified Code(s): J15.5 - Pneumonia due to Escherichia coli Subjective Principal diagnosis: ESRD Interval history: Patient seen and examined in dialysis. States she is feeling a little better today Objective - Vital Signs Vital signs: Vital Signs Temp Pulse Resp BP Pulse Ox 09/11/17 07:59 98.4 F 85 16 133/55 99 09/11/17 07:50 18 95 09/11/17 04:07 16 95 09/11/17 02:57 98.4 F 72 19 127/56 100 09/10/17 23:41 18 99 09/10/17 23:15 98.3 F 89 17 116/52 100 09/10/17 20:18 18 99 09/10/17 19:08 98.1 F 88 18 111/59 97 09/10/17 17:10 98.3 F 89 16 118/56 94 09/10/17 16:08 18 94 09/10/17 14:50 98.0 F 18 106/54 09/10/17 14:40 105/48 09/10/17 14:10 117/58 09/10/17 13:40 114/58 09/10/17 13:10 121/61 09/10/17 12:40 121/59 09/10/17 12:10 112/56 09/10/17 11:40 97.6 F 18 122/63 Intake and Output 09/10/17 09/11/17 09/11/17 23:59 07:59 15:59 Intake Total 690 / 690 30 / 30 240 / 240 Output Total 0 / 0 Balance 690 / 690 30 / 30 240 / 240 Intake: IV Fluids 270 / 270 Rocephin 2,000 MG In Water for 20 / 20 inj. (sterile) 20 ML @ 600 mls/ hr IVP Q24H MARIANO Rx#:[id number] Zithromax 500 mg In Dextrose 5% 250 / 250 250 ML @ 252 mls/hr IVPB Q24H MARIANO Rx#:[id number] Oral 420 / 420 30 / 30 240 / 240 Output: Urine 0 / 0 Other: Meal Dinner Breakfast Percent of Meal Consumed 100% 100% Weight 51.1 kg Blood Glucose* 158 Patient Weight 09/11/17 23:59 Weight 51.1 kg - General Appearance General appearance: Present: cachectic, chronically ill, frail EENT: Present: ATNC, mucous membranes moist, hearing intact, vision intact Neck: Present: supple Respiratory: Present: wheezing, course breath sounds, rhonchi Cardiology: Present: no edema, normal S1, normal S2 Dialysis Vascular Access: Arteriovenous Fistula Gastrointestinal: Present: no tenderness, no guarding Integumentary: Present: warm and dry Neurologic: Present: confused (at times) Psychiatric: Present: mood/affect appropriate, cooperative - Lab 09/11/17 04:36 09/11/17 04:36 Most recent lab results Calcium 7.6 mg/dL (8.6-10.8) L 09/11/17 04:36 Phosphorus 6.1 mg/dL (2.3-4.7) H 09/09/17 05:52 Magnesium 1.7 mg/dL (1.6-2.6) 09/09/17 05:52 Consult Discharge Plan - Plan Referrals: Na Johansen CNP [Primary Care Provider] - 09/17/17 1:00 pm
[2017-09-11] MEDS: Ondansetron 4 MG/2 ML VIAL IVP PRN ×2 (11:31→18:36)
[2017-09-11] MEDS: cefTRIAXone 2,000 MG in Water for inj. (sterile) 20 ML IVP SCH (11:32)
--- NOTE | 2017-09-11 16:58 | Internal Med Progress Note ---
Date of Encounter: 09/11/17 Time of Encounter: 10:00 - Assessment and plan (1) Pneumonia Current Visit: Yes Status: Acute Assessment and plan: Left lower lobe Pneumonia, present on admission - symptoms slowly improving CXR - worsening left lower lobe opacity Prior history of sputum cultures positive for Stenotrophomonas matlophilia and Pseudomonas aeruginosa Sputum culture - E. coli - continue IV Rocephin, Azithromycin Already received 3 days of Ciprofloxacin and 3 days Levaquin prior to switching to Cefepime based on sputum culture sensitivities Sputum cultures - E.coli Continue Duonebs, Mucinex, Mucomyst, incentive spirometry, HD, and supplemental oxygen Continue to monitor 09/10 - patient continues to have productive cough yellow colored sputum, no shortness of breath, no fever, tolerated HD today 09/11 - denies chest pain or shortness of breath. Continues to have productive cough. Seems to be improving. Tolerating oral diet well. Anticipate discharge home tomorrow Qualifiers: Pneumonia type: due to Escherichia coli Laterality: left Lung location: lower lobe of lung Qualified Code(s): J15.5 - Pneumonia due to Escherichia coli (2) COPD (chronic obstructive pulmonary disease) Current Visit: Yes Status: Acute Assessment and plan: Continue scheduled bronchodilators Symbicort, Prednisone, antibiotics, and supplemental oxygen Qualifiers: COPD type: emphysema Emphysema type: panlobular Qualified Code(s): J43.1 - Panlobular emphysema (3) Anemia in CKD (chronic kidney disease) Current Visit: Yes Status: Chronic Assessment and plan: H&H - 7.0/23.0 - monitor closely Nephrology following Type and screen, transfuse 1 unit PRBC with hemodialysis Qualifiers: Chronic kidney disease stage: on chronic dialysis Qualified Code(s): N18.6 - End stage renal disease; D63.1 - Anemia in chronic kidney disease; D63.1 - Anemia in chronic kidney disease; Z99.2 - Dependence on renal dialysis; Z99.2 - Dependence on renal dialysis; Z99.2 - Dependence on renal dialysis; Z99.2 - Dependence on renal dialysis (4) Colitis Current Visit: Yes Status: Acute Assessment and plan: CT abd/plv on admission - wall thickening of the colon at the splenic flexure with a small amount of adjacent fluid suggestive of colitis around splenic flexure 09/07/[address] abd/plv reveals resolution of the previously identified wall thickening of the splenic flexure of the colon Empiric IV Flagyl (Day 7) and Cefipime completed Already received 3 days of Ciprofloxacin and 3 days Levaquin prior to switching to Cefepime based on sputum culture sensitivities Stool GI panel negative Clinically improving as patient is tolerating oral diet Pain control with prn IV morphine and oral Percocet (5) ESRD (end stage renal disease) on dialysis Current Visit: Yes Status: Chronic Assessment and plan: On HD MWF - tolerated HD well today SOB due to fluid overload She was unable to have dialysis over the weekend because her dialysis fistula was not functioning - fistulagram done by IR Renally dose antibiotics, Fiberglass Grinder following (6) Tobacco abuse Current Visit: No Status: Chronic Assessment and plan: Patient reports quitting just before this admission Nicoderm patch as needed (7) Atrial fibrillation Current Visit: Yes Status: Chronic Assessment and plan: Currently rate controlled - Continue beta lex Not on long-term anticoagulation due to risk of falls Qualifiers: Atrial fibrillation type: chronic Qualified Code(s): I48.2 - Chronic atrial fibrillation (8) DVT prophylaxis Current Visit: Yes Status: Acute Assessment and plan: Continue SQ Heparin - Time Spent With Patient 25 - 35 minutes - Subjective Interval history: Examined this morning. Patient is awake and alert. Denies chest pain or shortness of breath. Complains of persistent productive cough with yellow colored sputum. No alleviating factors. No fever. Hemodynamically stable. No other acute events or complaints. Chest x-ray is concerning for left lower lobe pneumonia. Azithromycin has been added. Sputum culture positive for Escherichia coli. DuoNeb breathing treatment continued. - Constitutional Vitals: Temp Pulse Resp BP Pulse Ox 98.2 F 85 16 125/61 99 09/11/17 16:44 09/11/17 16:44 09/11/17 16:44 09/11/17 16:44 09/11/17 16:44 General appearance: Present: cachectic, cooperative, A&O X 3, pleasant, no acute distress, underweight, answers questions appropriately - Head Head exam: Present: atraumatic - Eye Eye exam: Present: EOMI - ENT ENT exam: Present: mucous membranes moist - Respiratory Respiratory exam: Present: rhonchi (Bilateral coarse). Absent: accessory muscle use, chest wall tenderness, rales, wheezes, tachypnea - Cardiovascular Cardiovascular exam: Present: RRR, +S1, +S2 - GI/Abdominal GI/Abdominal exam: Present: soft. Absent: distended, firm, guarding, tenderness Additional comments: Colostomy bag in place and site looks okay. Urostomy bag is also in place and site looks okay - Extremities Exam Extremities exam: Present: radial pulses palpable and symmetrical. Absent: calf tenderness, cyanotic, pedal edema - Neurological Exam Neurological exam: Present: alert, oriented X3, no focal deficits. Absent: facial droop, speech deficit Internal Medicine: Result - Labs CBC & Chem 7: 09/11/17 04:36 09/11/17 04:36 Labs: Short CBC 09/11/17 Range/Units 04:36 WBC 9.5 (4.3-11.1) K/mcL Hgb 7.0 L (11.5-15.4) g/dL Hct 23.0 L (35.3-44.9) % Plt Count 78 L (140-400) K/mcL Neutrophils # 8.3 (1.6-8.9) K/mcL BMP 09/11/17 04:36 Sodium 144 Potassium 3.8 Chloride 106 Carbon Dioxide 25 BUN 30 H D Creatinine 4.06 H Glucose 109 H Calcium 7.6 L - ABG Interpretation ABG results: PT/INR, D-dimer PT 13.7 Seconds (9.4-12.1) H 09/08/17 03:55 Consult Discharge Plan - Plan Referrals: Na Johansen, TYLER [Primary Care Provider] - 09/17/17 1:00 pm
[2017-09-11] MEDS: Azithromycin 500 MG in D5% in Water 250 ML IVPB SCH (17:23)
[2017-09-11 19:45] LABS: Adenovirus F 40/41 PCR Not detected (Not detect); Astrovirus PCR Not detected (Not detect); C.difficile Toxin A/B by PCR Not detected (Not detect); Campylobacter by PCR Not detected (Not detect); Cryptosporidium by PCR Not detected (Not detect); Cyclospora cayetanensis PCR Not detected (Not detect); E. coli O157 by PCR Not detected (Not detect); Entamoeba histolytica PCR Not detected (Not detect); Enteroaggregative E.coli(EAEC) Not detected (Not detect); Enteropathogenic E.coli(EPEC) Not detected (Not detect); Enterotoxigenic E.coli (ETEC) Not detected (Not detect); Giardia lamblia PCR Not detected (Not detect); Norovirus GI/GII PCR Not detected (Not detect); Plesiomonas shigelloides PCR Not detected (Not detect); Rotavirus A PCR Not detected (Not detect); Salmonella PCR Not detected (Not detect); Sapovirus PCR Not detected (Not detect); Shig/EnteroinvasiveE coli EIEC Not detected (Not detect); Shigalike tox-prod E coli STEC Not detected (Not detect); Vibrio PCR Not detected (Not detect); Vibrio cholerae PCR Not detected (Not detect); Yersinia enterocolitica PCR Not detected (Not detect)
[2017-09-11] MEDS: *HR* Morphine 2 MG/ML SYRINGE IVP PRN (21:23)
[2017-09-11] MEDS: Famotidine 20 MG TABLET PO SCH (21:28)
[2017-09-12] MEDS: Ipratropium/Albuterol Neb 3 ML IH SCH ×6 (03:50→23:31)
[2017-09-12] MEDS: Acetylcysteine 10% 2 ML INHSOL IH SCH ×6 (03:50→23:32)
[2017-09-12 04:23] LABS: Eosinophils % 0.2 %; Hematocrit 26.4 % (35.3-44.9); Mean Corpuscular HGB Conc 30.3 g/dL (31.6-35.5); Mean Platelet Volume 12.2 fL (9.4-12.4)
[2017-09-12 04:25] LABS: Immature Granulocytes % 0.5 % (0-4); Immature Platelets 5.1 % (1.1-6.1); Lymphocytes # 0.7 K/mcL (0.6-4.6); Lymphocytes % 12.6 %; Mean Corpuscular Hemoglobin 29.4 pg (28.0-33.3); Mean Corpuscular Volume 97.1 fL (83.0-100.0); Monocytes # 0.1 K/mcL (0.0-1.3); Monocytes % 2.2 %; Neutrophils # 4.9 K/mcL (1.6-8.9); Red Blood Count 2.72 M/mcL (3.82-4.97); Segmented Neutrophils % 84.5 %
[2017-09-12 04:36] LABS: Calcium 7.4 mg/dL (8.6-10.8)
[2017-09-12 04:44] LABS: Platelet Count 66 K/mcL (140-400)
[2017-09-12 04:45] LABS: Anisocytosis 1+ (Not Present); Macrocytosis Present (Not Present); Platelet Estimate Decreased (Normal)
[2017-09-12] MEDS: Ondansetron 4 MG/2 ML VIAL IVP PRN ×3 (05:01→23:32)
[2017-09-12] MEDS: *HR* Morphine 2 MG/ML SYRINGE IVP PRN ×4 (05:01→23:33)
[2017-09-12] MEDS: *HR* Heparin 5,000 UNIT/ML VIAL SQ SCH ×2 (06:26→16:58)
[2017-09-12] MEDS ORDERED: 0.9 % Sodium Chloride 250 ML IVC PRN (07:40)
[2017-09-12] MEDS: Budesonide/Formoterol 80/4.5 MDI IH SCH ×2 (07:50→20:14)
[2017-09-12] MEDS: Renal Vitamin 1 MG CAPSULE PO SCH (08:29)
[2017-09-12] MEDS: predniSONE 20 MG TABLET PO SCH (08:30)
[2017-09-12] MEDS: Lactobacillus 1 EACH CAP.SPRINK PO SCH ×2 (08:30→20:28)
[2017-09-12] MEDS: Calcium Acetate 667 MG CAPSULE PO SCH ×3 (08:30→16:58)
[2017-09-12] MEDS: Diltiazem CD (24hr) 120 MG CAPSULE PO SCH (08:30)
[2017-09-12] MEDS: *HR* OxyCODONE Immed Rel 5 MG TABLET PO PRN ×2 (08:30→15:23)
[2017-09-12] MEDS: Cholecalciferol (D-3) 1,000 UNIT TABLET PO SCH (08:30)
[2017-09-12] MEDS: *HR* Promethazine 25 MG/ML VIAL IVP PRN (08:31)
--- NOTE | 2017-09-12 09:21 | Nephrology Progress Note ---
Date of Encounter: 09/12/17 Time of Encounter: 09:21 - Assessment and Plan (1) ESRD (end stage renal disease) on dialysis Current Visit: Yes Status: Chronic Chronic, stable, continue HD thrice weekly for clearance and volume mgt. (2) Anemia in CKD (chronic kidney disease) Current Visit: Yes Status: Chronic Goal Hgb is 10-11. Will add Aranesp while just inpt, but after discharge will have the dialysis unit provide EPO. Qualifiers: Chronic kidney disease stage: on chronic dialysis Qualified Code(s): N18.6 - End stage renal disease; D63.1 - Anemia in chronic kidney disease; D63.1 - Anemia in chronic kidney disease; Z99.2 - Dependence on renal dialysis; Z99.2 - Dependence on renal dialysis; Z99.2 - Dependence on renal dialysis; Z99.2 - Dependence on renal dialysis (3) COPD (chronic obstructive pulmonary disease) Current Visit: Yes Status: Acute As per primary Qualifiers: COPD type: emphysema Emphysema type: panlobular Qualified Code(s): J43.1 - Panlobular emphysema (4) Pneumonia Current Visit: Yes Status: Acute Appreciate the primary team. Qualifiers: Pneumonia type: due to Escherichia coli Laterality: left Lung location: lower lobe of lung Qualified Code(s): J15.5 - Pneumonia due to Escherichia coli (5) Ileostomy in place Current Visit: Yes Status: Chronic Chronic. Short bowel syndrome, chronically. Subjective Principal diagnosis: ESRD Interval history: She reported having some worsening of her abd discomfort which has been going on since at least the time of admission. She did eat bkfast which exacerbated her abd discomfort, she said. She has chronic shortness of breath. She last dialyzed on Friday. The floor RN was present and brought in prn antiemetic and pain reliever. Objective - Vital Signs Vital signs: Vital Signs Temp Pulse Resp BP Pulse Ox 09/12/17 06:54 98.1 F 83 13 129/54 97 09/12/17 04:20 98.4 F 87 16 128/61 95 09/12/17 03:52 18 99 09/11/17 23:36 16 95 09/11/17 22:51 98.1 F 96 16 116/54 98 09/11/17 20:22 98.9 F 85 16 140/64 98 09/11/17 19:50 18 100 09/11/17 16:47 18 99 09/11/17 16:44 98.2 F 85 16 125/61 99 09/11/17 11:40 98.0 F 81 16 119/54 99 09/11/17 11:31 18 96 Intake and Output 09/11/17 09/12/17 09/12/17 23:59 07:59 15:59 Output Total 0 / 0 Balance 0 / 0 Output: Urine 0 / 0 Other: Weight 51 kg Blood Glucose* 109 Patient Weight 09/12/17 23:59 Weight 51 kg - General Appearance General appearance: Present: appears started age, cachectic, chronically ill, fatigue, frail EENT: Present: ATNC, PERRL, mucous membranes moist Neck: Present: supple Respiratory: Present: wheezing, rales, course breath sounds, rhonchi Cardiology: Present: no edema, regular rate, regular rhythm, normal S1, normal S2 Dialysis Vascular Access: Arteriovenous Fistula (LUE with several echymoses but excellent thrill and bruit) thrill: Yes bruit: Yes Gastrointestinal: Present: no guarding Additional Comments: stool and urine ostomy bags noted: chronic Integumentary: Present: ecchymotic Neurologic: Present: no focal deficit, no asterixis, alert and oriented x3 Musculoskeletal: Present: no clubbing Psychiatric: Present: mood/affect appropriate, cooperative - Lab 09/12/17 04:15 09/12/17 04:15 Most recent lab results Calcium 7.4 mg/dL (8.6-10.8) L 09/12/17 04:15 Phosphorus 6.1 mg/dL (2.3-4.7) H 09/09/17 05:52 Magnesium 1.7 mg/dL (1.6-2.6) 09/09/17 05:52 Consult Discharge Plan - Plan Referrals: Na Johansen CNP [Primary Care Provider] - 09/17/17 1:00 pm
--- NOTE | 2017-09-12 13:05 | General Surgery Consult Note ---
Date of Encounter: 09/12/17 Time of Encounter: 13:05 Assessment and Plan (1) Colitis Current Visit: Yes Status: Acute Patient is sitting upright at EOB, eating a large plate of salad. She reports normal appetite, no abdominal discomfort currently, and is hesitant to provide subjective information because she would like to eat her lunch. She states her "main concern is her chronicle diarrhea that makes leaving the house difficult. " Her abdominal exam is benign. Her WBC is normal and CT is consistent with colitis. There is no acute surgical intervention indicated. Surgery will sign off at this time. Thank you for allowing us to participate in Ms. Parra's care. (2) Colostomy care Current Visit: No Status: Chronic History of Present Illness Consult date: 09/12/17 Reason for consult: other (distention) Requesting physician: Wayne Chao History of present illness: Subjective information is limited as pt states she wants to eat her lunch (a large tossed salad). She is unable to describe her past medical history except to say that she has "chronicle diarrhea ever since my last surgery." She reports frequent output in her colostomy related to, "it has happens at home because of what I eat," although she is not able to recall her dietary habits stating, "I don't know it just ain't like what they feed me here." Per record review she has an extensive surgical history in February 2012 she underwent incisional hernia repair, CHRISTINE, and repair of 3 small bowel enterotomies. She developed bile peritonitis and was taken back on 02/14/2012 for ex-lap repair of small bowel enteromoty and drain placement. She returned a third time in February 26 for removal of mesh and SBR. In May she returned to the OR for exploratory laparotomy, revision ileocolonic anastomosis and wound closure. She presented on 09/02/2017 for c/o n/v and diarrhea and was noted to have colitis, most likely infectious. A repeat CT on 09/11/2017 revealed prominent mural thickening involving the large bowel, proximal to the left lower quadrant colostomy, evidence of enteritis with relatively diffuse mural thickening of this small bowel and concerning lung findings for pneumonia vs pleural effusions vs bronchiolitis. A GI panel has been obtained and is normal. Her WBC is normal. Past Med Surg Social Fam HX - Past Medical History Source: old records reviewed Medical history: asthma, COPD, GERD, hypertension, renal disease, thyroid disease Psychiatric history: no psych history - Past Surgical History Surgical History: appendectomy, cholecystectomy, colostomy, hysterectomy, other - Social History Smoking Status: Former smoker Smokeless Tobacco Status: No Alcohol use: none Drug use: none - Family History Mother Adopted: No Living Status: Hx Family Cardiac Disorders: Yes (RI/ Stroke) Hx Family Respiratory Disorders: No Hx Family Cancer: No Hx Family GI Disorders: No Hx Family Endocrine Disorder: No Hx Family Neuromuscular Disorders: No Hx Family Neurologic Disorders: No Hx Family HEENT Disorders: No Hx Family Autoimmune Disorders: No Father Adopted: No Living Status: Hx Family Cardiac Disorders: Yes (RI) Hx Family Respiratory Disorders: No Hx Family Cancer: No Hx Family GI Disorders: No Hx Family Endocrine Disorder: No Hx Family Neuromuscular Disorders: No Hx Family Neurologic Disorders: No Hx Family HEENT Disorders: No Hx Family Autoimmune Disorders: No Brother Living Status: Still Living Hx Family Cardiac Disorders: Yes Hx Family Respiratory Disorders: No Hx Family Endocrine Disorder: Yes Medications and Allergies Amitriptyline [Elavil] 50 mg PO HS 09/19/15 [History] Cholecalciferol (Vitamin D3) [Vitamin D3] 5,000 unit PO DAILY #0 09/19/15 [ History] Ranitidine HCl [Zantac] 150 mg PO HS 09/19/15 [History] Cyanocobalamin (B-12) [Vitamin B12] 1,000 mcg IM QMONTH 02/21/17 [History] Levothyroxine Sodium [Synthroid] 300 mcg PO DAILY 02/21/17 [History] Mometasone/Formoterol [Dulera 100 Mcg/5 Mcg Inhaler] 2 puff IH BID 02/21/17 [ History] Lactobacillus [Culturelle] 1 each PO BID #60 cap.sprink 03/10/17 [Rx] Albuterol Neb [Proventil Neb] 2.5 mg IH Q6H PRN 06/30/17 [History] Lidocaine/Prilocaine CREAM [Emla] 1 appl TP AD PRN 06/30/17 [History] Renal Vitamin [Renal Caps Softgel] 1 mg PO DAILY 06/30/17 [History] Acetaminophen [Tylenol] 650 mg PO Q6HR PRN #20 tab 07/10/17 [Rx] GuaiFENesin ER [Mucinex] 600 mg PO BID PRN 07/16/17 [History] Menthol [[place]] 3.2 mg MM Q4H PRN 07/16/17 [History] Calcitriol [Rocaltrol] 0.25 mcg PO DAILY #15 capsule 08/06/17 [Rx] Ferrous Sulfate 325 mg PO DAILY@0800 #30 tablet 08/06/17 [Rx] Sulfamethoxazole/Trimeth SS [Bactrim SS] 1 tab PO Q24H #12 tablet 08/06/17 [Rx] 3 Allergy/AdvReac Type Severity Reaction Status Date / Time codeine AdvReac Severe Vomiting Verified 03/06/17 15:22 naproxen [From Naprosyn] AdvReac Severe Vomiting Verified 03/06/17 15:22 Review of Systems All systems PM: reviewed and no additional remarkable complaints except as stated All systems PM: A 10-system review of systems was performed and is negative for pertinent findings except as documented above in the HPI. General Surgery Exam Initial Vital Signs Temp Pulse Resp BP Pulse Ox 98.8 F 76 18 97/57 95 09/01/17 21:14 09/01/17 21:14 09/01/17 21:14 09/01/17 21:14 09/01/17 21:14 - General physical appearance no distress - ENT atraumatic, normocephalic - Neck trachea midline, no venous distension - Respiratory other (Course bilateral posterior breath sounds) - Cardiovascular Cardiovascular exam: Present: RRR - Abdomen Abdomen general surgery: Present: bowel sounds present, soft, non tender, wound (Stomatitis pink and moist. Small amount of output noted in the appliance.) - Integumentary Integumentary general surgery: Present: warm and dry, rash (multiple small areas to the back consistent with bugbites noted) - Neurologic Present: normal sensation - Musculoskeletal Present: normal posture - Psychiatric Psychiatric general surgery: Present: A&Ox3, appropriate, oriented to person, oriented to place, oriented to time, speech is normal, memory intact Exam Initial Vital Signs Temp Pulse Resp BP Pulse Ox 98.8 F 76 18 97/57 95 09/01/17 21:14 09/01/17 21:14 09/01/17 21:14 09/01/17 21:14 09/01/17 21:14 Results - Labs 09/12/17 04:15 09/12/17 04:15 Abnormal lab results RBC 2.72 M/mcL (3.82-4.97) L 09/12/17 04:15 Hgb 8.0 g/dL (11.5-15.4) L 09/12/17 04:15 Hct 26.4 % (35.3-44.9) L 09/12/17 04:15 MCHC 30.3 g/dL (31.6-35.5) L 09/12/17 04:15 RDW 18.0 % (11.5-14.5) H 09/12/17 04:15 Plt Count 66 K/mcL (140-400) L 09/12/17 04:15 Platelet Estimate Decreased (Normal) L 09/12/17 04:15 Anisocytosis 1+ (Not Present) A 09/12/17 04:15 Macrocytosis Present (Not Present) A 09/12/17 04:15 PT 13.7 Seconds (9.4-12.1) H 09/08/17 03:55 APTT 25.5 Seconds (26.0-36.0) L 09/08/17 03:55 BUN 40 mg/dL (7-20) H D 09/12/17 04:15 Creatinine 5.51 mg/dL (0.57-1.11) H 09/12/17 04:15 Est GFR ( Amer) 9 (> 60) L 09/12/17 04:15 Est GFR (Non-Af Amer) 8 (> 60) L 09/12/17 04:15 Glucose 173 mg/dL (70-99) H 09/12/17 04:15 POC Glucose 109 (58-89) H 09/11/17 20:28 Calculated Osmolality 306 (280-300) H 09/12/17 04:15 Calcium 7.4 mg/dL (8.6-10.8) L 09/12/17 04:15 Ionized Calcium 1.00 mmol/L (1.15-1.35) L 09/08/17 04:00 Phosphorus 6.1 mg/dL (2.3-4.7) H 09/09/17 05:52 Troponin I 0.07 ng/mL (0-0.03) H* 09/02/17 05:00 Albumin 2.7 g/dL (3.5-5.0) L 09/05/17 05:07 Globulin 3.6 g/dL (2.4-3.5) H 09/01/17 22:05 Albumin/Globulin Ratio 0.7 (1.1-2.2) L 09/01/17 22:05 Amylase 174 Units/L (25-125) H 09/01/17 22:05 Lipase 214 Units/L (8-78) H 09/01/17 22:05 PTH Intact 344.1 pg/ml (8.5-72.5) H 09/04/17 04:10 Diabetes panel 09/12/17 Range/Units 04:15 Sodium 141 (136-145) mEq/L Potassium 4.0 (3.5-4.5) mEq/L Chloride 105 (98-109) mEq/L Carbon Dioxide 23 (19-29) mEq/L BUN 40 H D (7-20) mg/dL Creatinine 5.51 H (0.57-1.11) mg/dL Glucose 173 H (70-99) mg/dL Calcium 7.4 L (8.6-10.8) mg/dL Calcium panel 09/12/17 Range/Units 04:15 Calcium 7.4 L (8.6-10.8) mg/dL Pituitary panel 09/12/17 Range/Units 04:15 Sodium 141 (136-145) mEq/L Potassium 4.0 (3.5-4.5) mEq/L Chloride 105 (98-109) mEq/L Carbon Dioxide 23 (19-29) mEq/L BUN 40 H D (7-20) mg/dL Creatinine 5.51 H (0.57-1.11) mg/dL Glucose 173 H (70-99) mg/dL Calcium 7.4 L (8.6-10.8) mg/dL Adrenal panel 09/12/17 Range/Units 04:15 Sodium 141 (136-145) mEq/L Potassium 4.0 (3.5-4.5) mEq/L Chloride 105 (98-109) mEq/L Carbon Dioxide 23 (19-29) mEq/L BUN 40 H D (7-20) mg/dL Creatinine 5.51 H (0.57-1.11) mg/dL Glucose 173 H (70-99) mg/dL Calcium 7.4 L (8.6-10.8) mg/dL All other labs normal. - Imaging CT scan - abdomen: report reviewed CT scan - chest: report reviewed CT scan - pelvis: report reviewed Consult Discharge Plan - Plan Referrals: Na Johansen CNP [Primary Care Provider] - 09/17/17 1:00 pm
[2017-09-12] MEDS: cefTRIAXone 2,000 MG in Water for inj. (sterile) 20 ML IVP SCH (13:10)
[2017-09-12] MEDS: Azithromycin 250 MG TABLET PO SCH (16:58)
--- NOTE | 2017-09-12 17:44 | Internal Med Progress Note ---
Date of Encounter: 09/12/17 Time of Encounter: 17:15 - Assessment and plan (1) Pneumonia Current Visit: Yes Status: Acute Assessment and plan: Left lower lobe Pneumonia, present on admission - symptoms slowly improving CXR - worsening left lower lobe opacity Prior history of sputum cultures positive for Stenotrophomonas matlophilia and Pseudomonas aeruginosa Sputum culture - E. coli - continue IV Rocephin, Azithromycin Already received 3 days of Ciprofloxacin and 3 days Levaquin prior to switching to Cefepime based on sputum culture sensitivities Sputum cultures - E.coli Continue Duonebs, Mucinex, Mucomyst, incentive spirometry, HD, and supplemental oxygen , Continue to monitor 09/10 - patient continues to have productive cough yellow colored sputum, no shortness of breath, no fever, tolerated HD today 09/11 - denies chest pain or shortness of breath. Continues to have productive cough. Seems to be improving. Tolerating oral diet well. Anticipate discharge home tomorrow 09/12 - tolerating oral diet well. States her abdominal pain has improved. Denies chest pain or shortness of breath. Complains of persistent productive cough. CT of the abdomen reveals mural thickening involving large bowel without evidence of enteritis. She does have increased consolidation in the left lower lobe. Antibiotics and DuoNeb breathing treatment continued. Patient has tolerated HD well today. Nephrology following. General surgery has evaluated the patient and recommended no surgical intervention at this time. Qualifiers: Pneumonia type: due to Escherichia coli Laterality: left Lung location: lower lobe of lung Qualified Code(s): J15.5 - Pneumonia due to Escherichia coli (2) COPD (chronic obstructive pulmonary disease) Current Visit: Yes Status: Acute Assessment and plan: Continue scheduled DuoNeb breathing treatment Symbicort, Prednisone, antibiotics, and supplemental oxygen Qualifiers: COPD type: emphysema Emphysema type: panlobular Qualified Code(s): J43.1 - Panlobular emphysema (3) Anemia in CKD (chronic kidney disease) Current Visit: Yes Status: Chronic Assessment and plan: H&H - 8.0/26.4 - monitor closely Nephrology following Type and screen, transfuse PRBC as needed Qualifiers: Chronic kidney disease stage: on chronic dialysis Qualified Code(s): N18.6 - End stage renal disease; D63.1 - Anemia in chronic kidney disease; D63.1 - Anemia in chronic kidney disease; Z99.2 - Dependence on renal dialysis; Z99.2 - Dependence on renal dialysis; Z99.2 - Dependence on renal dialysis; Z99.2 - Dependence on renal dialysis (4) Colitis Current Visit: Yes Status: Acute Assessment and plan: CT abd/plv on admission - wall thickening of the colon at the splenic flexure with a small amount of adjacent fluid suggestive of colitis around splenic flexure Repeat CT abd/plv - mural thickening involving large bowel without evidence of enteritis. Increased consolidation in the left lower lobe. IV Flagyl and Cefipime completed Already received 3 days of Ciprofloxacin and 3 days Levaquin prior to switching to Cefepime based on sputum culture sensitivities Stool GI panel negative Clinically improving as patient is tolerating oral diet Pain control with prn IV morphine and oral Percocet (5) ESRD (end stage renal disease) on dialysis Current Visit: Yes Status: Chronic Assessment and plan: On HD MWF - tolerated HD well today SOB due to fluid overload She was unable to have dialysis over the weekend because her dialysis fistula was not functioning - fistulagram done by IR Renally dose antibiotics, Nephrology following (6) Tobacco abuse Current Visit: No Status: Chronic Assessment and plan: Patient reports quitting just before this admission Nicoderm patch as needed (7) Atrial fibrillation Current Visit: Yes Status: Chronic Assessment and plan: Currently rate controlled - Continue beta lex Not on long-term anticoagulation due to risk of falls Qualifiers: Atrial fibrillation type: chronic Qualified Code(s): I48.2 - Chronic atrial fibrillation (8) DVT prophylaxis Current Visit: Yes Status: Acute Assessment and plan: Continue SQ Heparin - Time Spent With Patient 25 - 35 minutes - Subjective Interval history: Examined this morning. Patient is awake and alert. Denies chest pain or shortness of breath. States she feels better today. Tolerating oral diet. Sitting up comfortably. Complains of persistent productive cough with yellow colored sputum. No alleviating factors. No fever. Hemodynamically stable. No other acute events or complaints. CT abdomen and pelvis shows mural thickening involving the large bowel without evidence of enteritis. Increased consolidation in the left lower lobe. Possible infectious bronchiolitis. Sputum culture positive for Escherichia coli. DuoNeb breathing treatment continued. - Constitutional Vitals: Temp Pulse Resp BP Pulse Ox 98.3 F 83 15 119/52 96 09/12/17 15:34 09/12/17 15:34 09/12/17 15:34 09/12/17 15:34 09/12/17 15:34 General appearance: Present: cachectic, cooperative, A&O X 3, pleasant, no acute distress, underweight, answers questions appropriately Exam: Chronically ill-appearing, frail, generalized weakness - Head Head exam: Present: atraumatic - Eye Eye exam: Present: EOMI - ENT ENT exam: Present: mucous membranes moist - Respiratory Respiratory exam: Present: rhonchi (Bilateral coarse). Absent: accessory muscle use, chest wall tenderness, rales, wheezes, tachypnea - Cardiovascular Cardiovascular exam: Present: RRR, +S1, +S2 - GI/Abdominal GI/Abdominal exam: Present: soft, no peritoneal signs. Absent: distended, firm , guarding Additional comments: Colostomy bag in place and site looks okay. Urostomy bag is also in place and site looks okay - Extremities Exam Extremities exam: Present: radial pulses palpable and symmetrical. Absent: calf tenderness, cyanotic, pedal edema - Neurological Exam Neurological exam: Present: alert, oriented X3, no focal deficits. Absent: facial droop, speech deficit Internal Medicine: Result - Labs CBC & Chem 7: 09/12/17 04:15 09/12/17 04:15 Labs: Short CBC 09/12/17 Range/Units 04:15 WBC 5.8 (4.3-11.1) K/mcL Hgb 8.0 L (11.5-15.4) g/dL Hct 26.4 L (35.3-44.9) % Plt Count 66 L (140-400) K/mcL Neutrophils # 4.9 (1.6-8.9) K/mcL BMP 09/12/17 04:15 Sodium 141 Potassium 4.0 Chloride 105 Carbon Dioxide 23 BUN 40 H D Creatinine 5.51 H Glucose 173 H Calcium 7.4 L - ABG Interpretation ABG results: PT/INR, D-dimer PT 13.7 Seconds (9.4-12.1) H 09/08/17 03:55 - Impressions Impressions Abdomen/Pelvis CT 09/11/17 20:00 IMPRESSION: 1. Relatively prominent mural thickening involving the large bowel, especially just proximal to the left lower quadrant colostomy. In addition, there is evidence of enteritis is well, with relatively diffuse mural thickening of small bowel. No evidence of destruction is seen at this time. 2. There has been increased consolidation within the left lower lobe, compatible with pneumonia. Correlate with any clinical evidence of aspiration. 3. In addition, inflammatory tree-in-bud nodules are seen throughout the right lung, most compatible with infectious bronchiolitis. More focal consolidation within the medial aspect of the right lower lobe suggests probable pneumonia and/or atelectasis, which appears similar when compared to the previous exam. 4. There is diffuse anasarca, evidenced by diffuse edema within the subcutaneous fat and within mesenteric, pleural effusions, and periportal edema. D/ / Frank Ho MD / Frank Ho MD Interpreting Provider: Frank Ho MD Consult Discharge Plan - Plan Referrals: Na Johansen, TYLER [Primary Care Provider] - 09/17/17 1:00 pm
[2017-09-12] MEDS: Famotidine 20 MG TABLET PO SCH (20:28)
[2017-09-13] MEDS: *HR* OxyCODONE Immed Rel 5 MG TABLET PO PRN ×2 (03:25→09:47)
[2017-09-13 03:43] LABS: Basophils % 0.2 %; Eosinophils % 0.2 %; Hemoglobin 7.2 g/dL (11.5-15.4); Immature Granulocytes % 0.3 % (0-4); Lymphocytes # 0.8 K/mcL (0.6-4.6); Mean Corpuscular Hemoglobin 29.4 pg (28.0-33.3); Mean Platelet Volume 11.8 fL (9.4-12.4); Monocytes # 0.2 K/mcL (0.0-1.3); Monocytes % 2.9 %; Neutrophils # 4.9 K/mcL (1.6-8.9); Platelet Count 102 K/mcL (140-400); Red Blood Count 2.45 M/mcL (3.82-4.97); Segmented Neutrophils % 82.4 %
[2017-09-13] MEDS: Ipratropium/Albuterol Neb 3 ML IH SCH ×6 (03:47→23:23)
[2017-09-13] MEDS: Acetylcysteine 10% 2 ML INHSOL IH SCH ×6 (03:47→23:24)
[2017-09-13 03:51] LABS: Albumin 2.4 g/dL (3.5-5.0); Calcium 7.4 mg/dL (8.6-10.8); Potassium 4.7 mEq/L (3.5-4.5)
[2017-09-13] MEDS: *HR* Heparin 5,000 UNIT/ML VIAL SQ SCH ×2 (06:08→16:37)
[2017-09-13] MEDS: *HR* Morphine 2 MG/ML SYRINGE IVP PRN ×4 (06:57→20:57)
[2017-09-13] MEDS: Budesonide/Formoterol 80/4.5 MDI IH SCH ×2 (08:03→20:10)
[2017-09-13] MEDS: predniSONE 20 MG TABLET PO SCH (09:44)
[2017-09-13] MEDS: Lactobacillus 1 EACH CAP.SPRINK PO SCH ×2 (09:44→19:59)
[2017-09-13] MEDS: Calcium Acetate 667 MG CAPSULE PO SCH ×3 (09:44→16:38)
[2017-09-13] MEDS: Diltiazem CD (24hr) 120 MG CAPSULE PO SCH (09:44)
[2017-09-13] MEDS: Cholecalciferol (D-3) 1,000 UNIT TABLET PO SCH (09:44)
[2017-09-13] MEDS: Renal Vitamin 1 MG CAPSULE PO SCH (09:44)
[2017-09-13] MEDS: Ondansetron 4 MG/2 ML VIAL IVP PRN ×2 (09:48→16:37)
--- NOTE | 2017-09-13 10:07 | Event Note ---
Date of Encounter: 09/13/17 Time of Encounter: 10:06 Nephrology Chart Review I reviewed her chemistry and vitals and I/Os. She completed HD yesterday (Friday ). This weekend I recommend a renal diet (i.e., low K+ diet), otherwise should plan for the next HD on Friday, if she remains admitted. I will be available this weekend, if needed. Thank you.
[2017-09-13] MEDS: cefTRIAXone 2,000 MG in Water for inj. (sterile) 20 ML IVP SCH (12:41)
--- NOTE | 2017-09-13 14:59 | Internal Med Progress Note ---
Date of Encounter: 09/13/17 Time of Encounter: 10:40 - Assessment and plan (1) Pneumonia Current Visit: Yes Status: Acute Assessment and plan: Left lower lobe Pneumonia, present on admission - symptoms slowly improving CXR - worsening left lower lobe opacity Prior history of sputum cultures positive for Stenotrophomonas matlophilia and Pseudomonas aeruginosa Sputum culture - E. coli - continue IV Rocephin, Azithromycin Already received 3 days of Ciprofloxacin and 3 days Levaquin prior to switching to Cefepime based on sputum culture sensitivities Sputum cultures - E.coli Continue Duonebs, Mucinex, Mucomyst, incentive spirometry, HD, and supplemental oxygen , Continue to monitor 09/11 - denies chest pain or shortness of breath. Continues to have productive cough. Seems to be improving. Tolerating oral diet well. Anticipate discharge home tomorrow 09/12 - tolerating oral diet well. States her abdominal pain has improved. Denies chest pain or shortness of breath. Complains of persistent productive cough. CT of the abdomen reveals mural thickening involving large bowel without evidence of enteritis. She does have increased consolidation in the left lower lobe. Antibiotics and DuoNeb breathing treatment continued. Patient has tolerated HD well today. Nephrology following. General surgery has evaluated the patient and recommended no surgical intervention at this time. 09/13 - patient is comfortable. Denies chest pain or shortness of breath. Continues to cough with productive sputum. Tolerating oral diet well and ambulating well. She continues to have coarse breath sounds bilaterally. Qualifiers: Pneumonia type: due to Escherichia coli Laterality: left Lung location: lower lobe of lung Qualified Code(s): J15.5 - Pneumonia due to Escherichia coli (2) COPD (chronic obstructive pulmonary disease) Current Visit: Yes Status: Acute Assessment and plan: Continue scheduled DuoNeb breathing treatment - symptoms improving Symbicort, Prednisone, antibiotics, and supplemental oxygen Qualifiers: COPD type: emphysema Emphysema type: panlobular Qualified Code(s): J43.1 - Panlobular emphysema (3) Anemia in CKD (chronic kidney disease) Current Visit: Yes Status: Chronic Assessment and plan: H&H - 7.2/24.0 - monitor closely Nephrology following Type and screen, transfuse PRBC as needed Qualifiers: Chronic kidney disease stage: on chronic dialysis Qualified Code(s): N18.6 - End stage renal disease; D63.1 - Anemia in chronic kidney disease; D63.1 - Anemia in chronic kidney disease; Z99.2 - Dependence on renal dialysis; Z99.2 - Dependence on renal dialysis; Z99.2 - Dependence on renal dialysis; Z99.2 - Dependence on renal dialysis (4) Colitis Current Visit: Yes Status: Acute Assessment and plan: CT abd/plv on admission - wall thickening of the colon at the splenic flexure with a small amount of adjacent fluid suggestive of colitis around splenic flexure Repeat CT abd/plv - mural thickening involving large bowel without evidence of enteritis. Increased consolidation in the left lower lobe. IV Flagyl and Cefipime completed Already received 3 days of Ciprofloxacin and 3 days Levaquin prior to switching to Cefepime based on sputum culture sensitivities Stool GI panel negative Clinically improving as patient is tolerating oral diet, Pain control with prn IV morphine and oral Percocet (5) ESRD (end stage renal disease) on dialysis Current Visit: Yes Status: Chronic Assessment and plan: On HD MWF - tolerated HD well today SOB due to fluid overload She was unable to have dialysis over the weekend because her dialysis fistula was not functioning - fistulagram done by IR Renally dose antibiotics, Nephrology following - appreciate input (6) Tobacco abuse Current Visit: No Status: Chronic Assessment and plan: Patient reports quitting just before this admission Nicoderm patch as needed (7) Atrial fibrillation Current Visit: Yes Status: Chronic Assessment and plan: Currently rate controlled - Continue beta lex Not on long-term anticoagulation due to risk of falls Qualifiers: Atrial fibrillation type: chronic Qualified Code(s): I48.2 - Chronic atrial fibrillation (8) DVT prophylaxis Current Visit: Yes Status: Acute Assessment and plan: Continue SQ Heparin - Time Spent With Patient 25 - 35 minutes - Subjective Interval history: Examined this morning. Patient is awake and alert. Denies chest pain or shortness of breath. States she feels better today. Tolerating oral diet. Sitting up comfortably. Patient continues to have cough with productive sputum. She does have coarse breath sounds bilaterally. No alleviating factors. No fever. Hemodynamically stable. No other acute events or complaints. CT abdomen and pelvis shows mural thickening involving the large bowel with evidence of enteritis. Increased consolidation in the left lower lobe. Possible infectious bronchiolitis. Sputum culture positive for Escherichia coli. DuoNeb breathing treatment continued. - Constitutional Vitals: Temp Pulse Resp BP Pulse Ox 98.3 F 98 14 120/51 96 09/13/17 11:54 09/13/17 11:54 09/13/17 11:54 09/13/17 11:54 09/13/17 11:54 General appearance: Present: cachectic, cooperative, A&O X 3, pleasant, no acute distress, underweight, answers questions appropriately Exam: Chronically ill-appearing, frail, generalized weakness - Head Head exam: Present: atraumatic - Eye Eye exam: Present: EOMI - ENT ENT exam: Present: mucous membranes moist - Respiratory Respiratory exam: Present: rhonchi (Bilateral coarse breath sounds). Absent: accessory muscle use, chest wall tenderness, rales, wheezes, tachypnea - Cardiovascular Cardiovascular exam: Present: RRR, +S1, +S2 - GI/Abdominal GI/Abdominal exam: Present: soft. Absent: distended, firm, guarding, tenderness Additional comments: Colostomy bag in place and site looks okay. Urostomy bag is also in place and site looks okay - Extremities Exam Extremities exam: Present: radial pulses palpable and symmetrical. Absent: calf tenderness, cyanotic, pedal edema - Neurological Exam Neurological exam: Present: alert, oriented X3, no focal deficits. Absent: facial droop, speech deficit Internal Medicine: Result - Labs CBC & Chem 7: 09/13/17 03:32 09/13/17 03:32 Labs: Short CBC 09/13/17 Range/Units 03:32 WBC 5.9 (4.3-11.1) K/mcL Hgb 7.2 L (11.5-15.4) g/dL Hct 24.0 L (35.3-44.9) % Plt Count 102 L D (140-400) K/mcL Neutrophils # 4.9 (1.6-8.9) K/mcL BMP 09/13/17 03:32 Sodium 141 Potassium 4.7 H Chloride 103 Carbon Dioxide 26 BUN 24 H D Creatinine 3.68 H Glucose 176 H Calcium 7.4 L Liver Function 09/13/17 Range/Units 03:32 Albumin 2.4 L (3.5-5.0) g/dL - ABG Interpretation ABG results: PT/INR, D-dimer PT 13.7 Seconds (9.4-12.1) H 09/08/17 03:55 Consult Discharge Plan - Plan Referrals: Na Johansen CNP [Primary Care Provider] - 09/17/17 1:00 pm
[2017-09-13] MEDS: Azithromycin 250 MG TABLET PO SCH (16:37)
[2017-09-13] MEDS: Famotidine 20 MG TABLET PO SCH (19:58)
[2017-09-14] MEDS: *HR* Morphine 2 MG/ML SYRINGE IVP PRN ×5 (00:46→21:27)
[2017-09-14] MEDS: Ipratropium/Albuterol Neb 3 ML IH SCH ×6 (04:34→23:11)
[2017-09-14] MEDS: Acetylcysteine 10% 2 ML INHSOL IH SCH ×6 (04:35→23:11)
[2017-09-14 05:01] LABS: Eosinophils % 0.2 %; Hematocrit 23.8 % (35.3-44.9); Hemoglobin 7.2 g/dL (11.5-15.4); Immature Granulocytes % 0.5 % (0-4); Lymphocytes # 0.8 K/mcL (0.6-4.6); Lymphocytes % 13.2 %; Mean Corpuscular HGB Conc 30.3 g/dL (31.6-35.5); Mean Corpuscular Hemoglobin 29.1 pg (28.0-33.3); Mean Corpuscular Volume 96.4 fL (83.0-100.0); Mean Platelet Volume 11.4 fL (9.4-12.4); Monocytes # 0.2 K/mcL (0.0-1.3); Monocytes % 2.5 %; Neutrophils # 5.3 K/mcL (1.6-8.9); Platelet Count 101 K/mcL (140-400); Red Blood Count 2.47 M/mcL (3.82-4.97); Red Cell Distribution Width 17.4 % (11.5-14.5); Segmented Neutrophils % 83.6 %
[2017-09-14 05:20] LABS: Calcium 7.3 mg/dL (8.6-10.8); Potassium 4.8 mEq/L (3.5-4.5)
[2017-09-14] MEDS: *HR* Heparin 5,000 UNIT/ML VIAL SQ SCH ×2 (05:26→16:09)
[2017-09-14] MEDS: *HR* Promethazine 25 MG/ML VIAL IVP PRN ×2 (05:27→19:14)
[2017-09-14] MEDS: Budesonide/Formoterol 80/4.5 MDI IH SCH ×2 (07:59→20:08)
[2017-09-14] MEDS: Cholecalciferol (D-3) 1,000 UNIT TABLET PO SCH (09:44)
[2017-09-14] MEDS: Calcium Acetate 667 MG CAPSULE PO SCH ×3 (09:44→16:09)
[2017-09-14] MEDS: Lactobacillus 1 EACH CAP.SPRINK PO SCH ×2 (09:44→21:26)
[2017-09-14] MEDS: Renal Vitamin 1 MG CAPSULE PO SCH (09:44)
[2017-09-14] MEDS: predniSONE 20 MG TABLET PO SCH (09:44)
[2017-09-14] MEDS: Diltiazem CD (24hr) 120 MG CAPSULE PO SCH (09:44)
[2017-09-14] MEDS: cefTRIAXone 2,000 MG in Water for inj. (sterile) 20 ML IVP SCH (11:49)
[2017-09-14] MEDS: Ondansetron 4 MG/2 ML VIAL IVP PRN ×3 (11:50→21:27)
[2017-09-14] MEDS: Nicotine 21 MG PATCH.TD24 TD SCH (12:26)
--- NOTE | 2017-09-14 14:53 | Discharge Summary ---
Date of Encounter: 09/14/17 Time of Encounter: 10:40 - Discharge Diagnosis (1) Pneumonia Priority: Primary Status: Acute Comments: Left lower lobe Pneumonia, present on admission - symptoms improved CXR - worsening left lower lobe opacity Prior history of sputum cultures positive for Stenotrophomonas matlophilia and Pseudomonas aeruginosa Sputum culture - E. coli - continue IV Rocephin, Azithromycin Already received 3 days of Ciprofloxacin and 3 days Levaquin prior to switching to Cefepime based on sputum culture sensitivities Sputum cultures - E.coli Continue Duonebs, Mucinex, Mucomyst, incentive spirometry, HD, and supplemental oxygen , Continue to monitor 09/12 - tolerating oral diet well. States her abdominal pain has improved. Denies chest pain or shortness of breath. Complains of persistent productive cough. CT of the abdomen reveals mural thickening involving large bowel without evidence of enteritis. She does have increased consolidation in the left lower lobe. Antibiotics and DuoNeb breathing treatment continued. Patient has tolerated HD well today. Nephrology following. General surgery has evaluated the patient and recommended no surgical intervention at this time. 09/13 - patient is comfortable. Denies chest pain or shortness of breath. Continues to cough with productive sputum. Tolerating oral diet well and ambulating well. She continues to have coarse breath sounds bilaterally. 09/14 - doing better today. Denies chest pain or shortness of breath. Cough has improved. Tolerating oral diet well. Ambulating well. Anticipate discharge home tomorrow after hemodialysis. Qualifiers: Pneumonia type: due to Escherichia coli Laterality: left Lung location: lower lobe of lung Qualified Code(s): J15.5 - Pneumonia due to Escherichia coli (2) COPD (chronic obstructive pulmonary disease) Priority: Primary Status: Acute Comments: Continue scheduled DuoNeb breathing treatment - symptoms improving Symbicort, Prednisone, antibiotics Doing well on room air Qualifiers: COPD type: emphysema Emphysema type: panlobular Qualified Code(s): J43.1 - Panlobular emphysema (3) Anemia in CKD (chronic kidney disease) Priority: Primary Status: Chronic Comments: H&H - 7.2/23.8 - monitor closely Nephrology following Type and screen, transfuse PRBC as needed Qualifiers: Chronic kidney disease stage: on chronic dialysis Qualified Code(s): N18.6 - End stage renal disease; D63.1 - Anemia in chronic kidney disease; D63.1 - Anemia in chronic kidney disease; Z99.2 - Dependence on renal dialysis; Z99.2 - Dependence on renal dialysis; Z99.2 - Dependence on renal dialysis; Z99.2 - Dependence on renal dialysis (4) Colitis Priority: Primary Status: Acute Comments: CT abd/plv on admission - wall thickening of the colon at the splenic flexure with a small amount of adjacent fluid suggestive of colitis around splenic flexure Repeat CT abd/plv - mural thickening involving large bowel without evidence of enteritis. Increased consolidation in the left lower lobe. IV Flagyl and Cefipime completed Already received 3 days of Ciprofloxacin and 3 days Levaquin prior to switching to Cefepime based on sputum culture sensitivities Stool GI panel - negative Clinically improving as patient is tolerating oral diet, Pain control with Percocet (5) ESRD (end stage renal disease) on dialysis Priority: Primary Status: Chronic Comments: On HD MWF - tolerated HD well today SOB due to fluid overload - resolved Fistulogram done by IR Nephrology following - appreciate input (6) Tobacco abuse Priority: Primary Status: Chronic Comments: Patient reports quitting just before this admission Nicoderm patch as needed (7) Atrial fibrillation Priority: Primary Status: Chronic Comments: Currently rate controlled - Continue beta lex Not on long-term anticoagulation due to risk of falls Qualifiers: Atrial fibrillation type: chronic Qualified Code(s): I48.2 - Chronic atrial fibrillation - Discharge Medications Prescriptions: Acetylcysteine 10% 2 ml IH [id number] #30 inhsol Ipratropium/Albuterol Neb [Duoneb] 3 ml IH [id number] #30 inhsol Cefdinir [Omnicef] 300 mg PO BID 10 Days #20 capsule GuaiFENesin ER [Mucinex] 600 mg PO BID 5 Days #10 tbbp.12hr Nicotine Patch [Nicoderm] 21 mg TD DAILY #30 patch.td24 Home Medications: Amitriptyline [Elavil] 50 mg PO HS 09/19/15 [History] Cholecalciferol (Vitamin D3) [Vitamin D3] 5,000 unit PO DAILY #0 09/19/15 [ History] Ranitidine HCl [Zantac] 150 mg PO HS 09/19/15 [History] Cyanocobalamin (B-12) [Vitamin B12] 1,000 mcg IM QMONTH 02/21/17 [History] Levothyroxine Sodium [Synthroid] 300 mcg PO DAILY 02/21/17 [History] Mometasone/Formoterol [Dulera 100 Mcg/5 Mcg Inhaler] 2 puff IH BID 02/21/17 [ History] Lactobacillus [Culturelle] 1 each PO BID #60 cap.sprink 03/10/17 [Rx] Lidocaine/Prilocaine CREAM [Emla] 1 appl TP AD PRN 06/30/17 [History] Renal Vitamin [Renal Caps Softgel] 1 mg PO DAILY 06/30/17 [History] Acetaminophen [Tylenol] 650 mg PO Q6HR PRN #20 tab 07/10/17 [Rx] Menthol [[place]] 3.2 mg MM Q4H PRN 07/16/17 [History] Calcitriol [Rocaltrol] 0.25 mcg PO DAILY #15 capsule 08/06/17 [Rx] Ferrous Sulfate 325 mg PO DAILY@0800 #30 tablet 08/06/17 [Rx] Acetylcysteine 10% 2 ml IH [id number] #30 inhsol 09/14/17 [Rx] Cefdinir [Omnicef] 300 mg PO BID 10 Days #20 capsule 09/14/17 [Rx] Diltiazem CD (24hr) [Cardizem CD] 120 mg PO DAILY cap.er.24h 09/14/17 [Rx] GuaiFENesin ER [Mucinex] 600 mg PO BID 5 Days #10 tbbp.12hr 09/14/17 [Rx] Ipratropium/Albuterol Neb [Duoneb] 3 ml IH [id number] #30 inhsol 09/14/17 [Rx] Nicotine Patch [Nicoderm] 21 mg TD DAILY #30 patch.td24 09/14/17 [Rx] Allergies/Adverse Reactions: 3 Allergy/AdvReac Type Severity Reaction Status Date / Time codeine AdvReac Severe Vomiting Verified 03/06/17 15:22 naproxen [From Naprosyn] AdvReac Severe Vomiting Verified 03/06/17 15:22 Procedures/tests Complete & Pending: Procedures Performed prior 72 hours Category Date Time Status CT abd pelvis wo iv oral only [CT] Stat Cat Scan 09/11/17 20:00 Completed Date of admission: 09/02/17 01:49 Primary care physician: Na Johansen CNP Consults: 09/02/17 11:17 Consult to Nephrology [CONS] Routine Consulting Provider: Kidney Katelyn/MAYO/JAYESH/COREY Reason for Consult: ESRD on HD Call Completed: Yes 09/03/17 07:30 Consult to Dialysis [CONS] ONCE 09/03/17 09:45 Consult to Dialysis [CONS] ONCE 09/04/17 15:47 Consult to Jewel Sorter [CONS] Routine Reason for SW Consult: possible home health 09/05/17 09:00 Consult to Dialysis [CONS] ONCE 09/06/17 11:30 Consult to Dialysis [CONS] ONCE 09/07/17 09:32 Consult to Interventional Radiology [CONS] Routine Consulting Provider: Radiology Interventional Cols Reason for Consult: Patient needs fistulogram secondary to removal of clots when attempting dialysis on friday. Call Completed: No 09/08/17 10:00 Consult to Dialysis [CONS] ONCE 09/10/17 08:00 Consult to Dialysis [CONS] ONCE 09/11/17 08:00 Consult to Dialysis [CONS] ONCE 09/12/17 07:45 Consult to Dialysis [CONS] ONCE 09/12/17 08:07 Consult to Surgery [CONS] Routine Consulting Provider: Jose Zepeda Surgical Reason for Consult: abdominal pain, distension Call Completed: Yes 09/15/17 06:00 Consult to Dialysis [CONS] ONCE Anticipated date of discharge: 09/15/17 - Patient Status Disposition: Home, Self-Care Condition: Good Functional capacity at discharge: independent ambulation Overall status at discharge: patient is back to baseline - Discharge Instructions Follow Up With: Na Johansen CNP [Primary Care Provider] - 09/17/17 1:00 pm Forms: ED Satisfaction Letter, Work/School Release - Diet and Activity Activity: increase activity as tolerated, resume usual activities as tolerated Diet: other (Renal diet) Hospital course: Ms. Parra is a 71 year old female with past medical history of COPD, GERD, hypertension, end-stage renal disease on hemodialysis and thyroid disease. She presents to the ED with complaints of abdominal pain and nausea and vomiting. Patient was admitted for acute colitis seen on CT scan. She was started on IV Cipro and IV Flagyl. She was also 90 so for an and IV fluids. Electrolytes were replaced initially. Patient does have chronic atrial fibrillation and is not on anticoagulation due to history of falls and history of bleeds. Nephrology was consulted for end-stage renal disease. They have been following patient. Patient also developed a COPD exacerbation and was started on DuoNeb breathing treatment and inhaled corticosteroids. Patient does have a history of ileostomy and urostomy and multiple abdominal surgeries in the past, ostomy sites look okay. She does have chronic diarrhea in the ostomy. IV Flagyl and IV Levaquin course completed for colitis. Patient also has coarse rhonchorous breath sounds bilaterally and was started continued on IV Levaquin. She was also started on acetylcysteine breathing treatment apart from the DuoNeb breathing treatment. Patient did have productive cough with yellow colored sputum. Antibodies and then switched to IV Rocephin and azithromycin. She was also on Mucinex and advised to continue incentive spirometry. Patient is currently doing well on room air. Her O2 sats are above 98%. Sputum cultures grew Escherichia coli resistant to Levaquin. Sensitive to Rocephin. She can be discharged on Omnicef. Patient did have some abdominal distention and general surgery was consulted. Repeat CT scan showed possible enteritis. He also advised to continue diet and that no surgical intervention was indicated. Her pneumonia has now improved. She does have a cough but her coarse breath sounds have improved. Patient is tolerating hemodialysis well. She will receive IV Rocephin on the day of discharge and then can start by mouth antibiotics at home. Patient does not want to go to ECF and does not want home health. Her symptoms have now improved. She is tolerating oral diet well and ambulating well. No other acute events or complications. She has good output in the ileostomy bag and urostomy. No diarrhea. No fever. Hemodynamically stable. Patient has been explained about her condition and plan of care detail. She understood and agreed. No unanswered questions. Patient is being discharged in stable condition. - Time Spent with Patient Total time spent providing and/or coordinating discharge services: Greater than 30 minutes - Constitutional Vitals: Temp Pulse Resp BP Pulse Ox 98.5 F 88 16 119/62 100 09/14/17 10:49 09/14/17 10:49 09/14/17 10:59 09/14/17 10:49 09/14/17 10:59 General appearance: Present: cachectic, cooperative, A&O X 3, pleasant, no acute distress, underweight, answers questions appropriately Exam: Chronically ill-appearing, frail, generalized weakness has improved - Head Head exam: Present: atraumatic - Eye Eye exam: Present: EOMI - ENT ENT exam: Present: mucous membranes moist - Respiratory Respiratory exam: Present: rhonchi (Bilateral mild). Absent: accessory muscle use, chest wall tenderness, rales, respiratory distress, wheezes, tachypnea - Cardiovascular Cardiovascular exam: Present: RRR, +S1, +S2 - GI/Abdominal GI/Abdominal exam: Present: soft. Absent: distended, firm, guarding, tenderness Additional comments: Colostomy bag in place and site looks okay. Urostomy bag is also in place and site looks okay - Extremities Exam Extremities exam: Present: radial pulses palpable and symmetrical. Absent: calf tenderness, cyanotic, pedal edema - Neurological Exam Neurological exam: Present: alert, oriented X3, no focal deficits. Absent: facial droop, speech deficit
[2017-09-14] MEDS: Azithromycin 250 MG TABLET PO SCH (16:09)
[2017-09-14] MEDS: Famotidine 20 MG TABLET PO SCH (21:27)
[2017-09-15] MEDS: *HR* Morphine 2 MG/ML SYRINGE IVP PRN ×4 (01:45→19:59)
[2017-09-15] MEDS: Ondansetron 4 MG/2 ML VIAL IVP PRN ×4 (01:45→19:59)
[2017-09-15] MEDS: Ipratropium/Albuterol Neb 3 ML IH SCH ×5 (03:28→19:55)
[2017-09-15] MEDS: Acetylcysteine 10% 2 ML INHSOL IH SCH ×5 (03:28→19:55)
[2017-09-15] MEDS: *HR* Promethazine 25 MG/ML VIAL IVP PRN ×2 (03:30→13:12)
[2017-09-15 04:54] LABS: Hematocrit 23.5 % (35.3-44.9); Hemoglobin 7.2 g/dL (11.5-15.4); Immature Granulocytes % 0.6 % (0-4); Lymphocytes # 0.8 K/mcL (0.6-4.6); Lymphocytes % 14.2 %; Mean Corpuscular HGB Conc 30.6 g/dL (31.6-35.5); Mean Corpuscular Hemoglobin 29.1 pg (28.0-33.3); Mean Corpuscular Volume 95.1 fL (83.0-100.0); Mean Platelet Volume 11.3 fL (9.4-12.4); Monocytes # 0.2 K/mcL (0.0-1.3); Monocytes % 3.9 %; Neutrophils # 4.4 K/mcL (1.6-8.9); Platelet Count 126 K/mcL (140-400); Red Blood Count 2.47 M/mcL (3.82-4.97); Red Cell Distribution Width 17.2 % (11.5-14.5); Segmented Neutrophils % 81.3 %
[2017-09-15 05:25] LABS: Calcium 7.8 mg/dL (8.6-10.8); Potassium 5.2 mEq/L (3.5-4.5)
[2017-09-15] MEDS: *HR* Heparin 5,000 UNIT/ML VIAL SQ SCH ×2 (06:00→17:53)
[2017-09-15] MEDS ORDERED: 0.9 % Sodium Chloride 250 ML IVC PRN (06:00)
[2017-09-15] MEDS: Nicotine 21 MG PATCH.TD24 TD SCH (07:59)
[2017-09-15] MEDS: Lactobacillus 1 EACH CAP.SPRINK PO SCH ×2 (08:00→22:41)
[2017-09-15] MEDS: Diltiazem CD (24hr) 120 MG CAPSULE PO SCH (08:00)
[2017-09-15] MEDS: Calcium Acetate 667 MG CAPSULE PO SCH ×3 (08:00→17:15)
[2017-09-15] MEDS: predniSONE 20 MG TABLET PO SCH (08:01)
[2017-09-15] MEDS: Renal Vitamin 1 MG CAPSULE PO SCH (08:01)
[2017-09-15] MEDS ORDERED: 0.9 % Sodium Chloride 2,000 ML ONE (08:08)
[2017-09-15] MEDS: Cholecalciferol (D-3) 1,000 UNIT TABLET PO SCH (08:09)
[2017-09-15] MEDS: Budesonide/Formoterol 80/4.5 MDI IH SCH ×2 (08:20→19:56)
--- NOTE | 2017-09-15 10:26 | Nephrology Progress Note ---
Date of Encounter: 09/15/17 Time of Encounter: 09:15 - Assessment and Plan (1) ESRD (end stage renal disease) on dialysis Current Visit: Yes Status: Chronic HD today (Friday) for 3.5hr, 2K, changed the Ca to 3 for chronic hypocalcemia, with a goal UF of 2-3kg. Chronic, stable, continue HD thrice weekly for clearance and volume mgt. (2) Anemia in CKD (chronic kidney disease) Current Visit: Yes Status: Chronic Goal Hgb is 10-11. S/p Aranesp last week. Qualifiers: Chronic kidney disease stage: on chronic dialysis Qualified Code(s): N18.6 - End stage renal disease; D63.1 - Anemia in chronic kidney disease; D63.1 - Anemia in chronic kidney disease; Z99.2 - Dependence on renal dialysis; Z99.2 - Dependence on renal dialysis; Z99.2 - Dependence on renal dialysis; Z99.2 - Dependence on renal dialysis (3) COPD (chronic obstructive pulmonary disease) Current Visit: Yes Status: Acute As per primary Qualifiers: COPD type: emphysema Emphysema type: panlobular Qualified Code(s): J43.1 - Panlobular emphysema (4) Pneumonia Current Visit: Yes Status: Acute Appreciate the primary team. Qualifiers: Pneumonia type: due to Escherichia coli Laterality: left Lung location: lower lobe of lung Qualified Code(s): J15.5 - Pneumonia due to Escherichia coli (5) Ileostomy in place Current Visit: Yes Status: Chronic Chronic. Short bowel syndrome, chronically. Subjective Principal diagnosis: ESRD Interval history: She reported having some chronic cough and chronic nausea and chronic / unchanged ileostomy output. She did not affirm F/C. She did voice feeling more swollen and asked for more fluid removal today. Objective - Vital Signs Vital signs: Vital Signs Temp Pulse Resp BP Pulse Ox 09/15/17 08:22 18 95 09/15/17 07:38 97.5 F L 88 16 139/68 96 09/15/17 05:00 97.7 F 82 16 118/61 96 09/15/17 03:28 18 97 09/15/17 00:10 97.9 F 82 16 125/48 96 09/14/17 23:11 18 96 09/14/17 21:13 97.7 F 86 16 136/67 97 09/14/17 20:10 18 98 09/14/17 16:34 98.3 F 93 17 151/64 98 09/14/17 15:20 20 97 09/14/17 10:59 16 100 09/14/17 10:49 98.5 F 88 17 119/62 98 Intake and Output 09/14/17 09/15/17 09/15/17 23:59 07:59 15:59 Intake Total 240 / 240 Balance 240 / 240 Intake: Oral 240 / 240 Other: Weight 61.008 kg Blood Glucose* 173 89 Patient Weight 09/15/17 23:59 Weight 61.008 kg - General Appearance General appearance: Present: cachectic, chronically ill, fatigue EENT: Present: ATNC, PERRL, mucous membranes moist Neck: Present: supple Respiratory: Present: rhonchi Cardiology: Present: edema (trace pedal edema b/l), regular rate, regular rhythm , normal S1, normal S2 Dialysis Vascular Access: Arteriovenous Fistula (LUE AVF with +Thrill/bruit) thrill: Yes bruit: Yes Gastrointestinal: Present: no tenderness, no guarding Additional Comments: ostomy bags noted Integumentary: Present: warm and dry, ecchymotic Neurologic: Present: no focal deficit, no asterixis, alert and oriented x3 Musculoskeletal: Present: no erythema, no cyanosis, no clubbing Psychiatric: Present: mood/affect appropriate, cooperative - Lab 09/15/17 04:41 09/15/17 04:41 Most recent lab results Calcium 7.8 mg/dL (8.6-10.8) L 09/15/17 04:41 Phosphorus 6.1 mg/dL (2.3-4.7) H 09/09/17 05:52 Magnesium 1.7 mg/dL (1.6-2.6) 09/09/17 05:52 Consult Discharge Plan - Plan Referrals: Na Johansen, TYLER [Primary Care Provider] - 09/17/17 1:00 pm Prescriptions: Acetylcysteine 10% 2 ml IH [id number] #30 inhsol Ipratropium/Albuterol Neb [Duoneb] 3 ml IH [id number] #30 inhsol Cefdinir [Omnicef] 300 mg PO BID 10 Days #20 capsule GuaiFENesin ER [Mucinex] 600 mg PO BID 5 Days #10 tbbp.12hr Nicotine Patch [Nicoderm] 21 mg TD DAILY #30 patch.td24
[2017-09-15] MEDS: cefTRIAXone 2,000 MG in Water for inj. (sterile) 20 ML IVP SCH (12:46)
--- NOTE | 2017-09-15 14:13 | Internal Med Progress Note ---
Date of Encounter: 09/15/17 Time of Encounter: 09:50 - Assessment and plan (1) Pneumonia Current Visit: Yes Status: Acute Assessment and plan: Left lower lobe Pneumonia, present on admission - symptoms slowly improving CXR - worsening left lower lobe opacity Prior H/o sputum cultures positive for Stenotrophomonas matlophilia and Pseudomonas aeruginosa Sputum culture - E. coli - course of IV Rocephin and Azithromycin complete Discharge home with Omnicef, DuoNeb breathing treatment Already received 3 days of Ciprofloxacin and 3 days Levaquin prior to switching to Cefepime based on sputum culture sensitivities Sputum cultures - E.coli Continue Duonebs, Mucinex, Mucomyst, incentive spirometry, HD, as needed , Continue to monitor 09/13 - patient is comfortable. Denies chest pain or shortness of breath. Continues to cough with productive sputum. Tolerating oral diet well and ambulating well. She continues to have coarse breath sounds bilaterally. 09/14 - doing better today. Denies chest pain or shortness of breath. Cough has improved. Tolerating oral diet well. Ambulating well. Anticipate discharge home tomorrow after hemodialysis. 09/15 - patient complains of projectile vomiting. RN states it looks like bilious vomiting. Patient unable to tolerate oral diet. No fever. Hemodynamically stable. Denies chest pain or shortness of breath. States her cough is improved. Continues to coarse breath sounds. IV antibiotic course completed. We will try IV Reglan today. Patient will need at least 1 more day of stay in the hospital. May need to repeat CT abdomen/pelvis if vomiting continues. Qualifiers: Pneumonia type: due to Escherichia coli Laterality: left Lung location: lower lobe of lung Qualified Code(s): J15.5 - Pneumonia due to Escherichia coli (2) Colitis Current Visit: Yes Status: Acute Assessment and plan: Patient unable to tolerate oral diet today - multiple episodes of bilious projectile vomiting Continue IV Zofran, Ativan IV Reglan today for possible gastroparesis Repeat CT abd/plv - mural thickening involving large bowel without evidence of enteritis. Increased consolidation in the left lower lobe. IV Flagyl and Cefipime completed Already received 3 days of Ciprofloxacin and 3 days Levaquin prior to switching to Cefepime based on sputum culture sensitivities Stool GI panel negative, C. difficile - negative Gen. surgery consult - recommendations reviewed, no acute intervention (3) COPD (chronic obstructive pulmonary disease) Current Visit: Yes Status: Acute Assessment and plan: Continue scheduled DuoNeb breathing treatment - symptoms now improved Symbicort, Prednisone, antibiotics, and supplemental oxygen as needed Doing well on room air Qualifiers: COPD type: emphysema Emphysema type: panlobular Qualified Code(s): J43.1 - Panlobular emphysema (4) Anemia in CKD (chronic kidney disease) Current Visit: Yes Status: Chronic Assessment and plan: H&H - 7.2/.5 - monitor closely Nephrology following Type and screen, transfuse PRBC as needed Qualifiers: Chronic kidney disease stage: on chronic dialysis Qualified Code(s): N18.6 - End stage renal disease; D63.1 - Anemia in chronic kidney disease; D63.1 - Anemia in chronic kidney disease; Z99.2 - Dependence on renal dialysis; Z99.2 - Dependence on renal dialysis; Z99.2 - Dependence on renal dialysis; Z99.2 - Dependence on renal dialysis (5) ESRD (end stage renal disease) on dialysis Current Visit: Yes Status: Chronic Assessment and plan: On HD MWF - tolerated HD well today SOB due to fluid overload - resolved Fistulogram done by IR Nephrology following - appreciate input (6) Tobacco abuse Current Visit: No Status: Chronic Assessment and plan: Patient reports quitting just before this admission Nicoderm patch (7) Atrial fibrillation Current Visit: Yes Status: Chronic Assessment and plan: Currently rate controlled - Continue beta lex Not on long-term anticoagulation due to risk of falls and history of bleeds Qualifiers: Atrial fibrillation type: chronic Qualified Code(s): I48.2 - Chronic atrial fibrillation (8) DVT prophylaxis Current Visit: Yes Status: Acute Assessment and plan: Continue SQ Heparin, ambulate - Time Spent With Patient 25 - 35 minutes - Subjective Interval history: Examined this morning. Patient is awake and alert. Denies chest pain or shortness of breath. States she feels better today. Sitting up comfortably. Patient states her cough has improved. She does have coarse breath sounds bilaterally. No alleviating factors. No fever. Hemodynamically stable. She is not able to tolerate oral diet. Patient states she has had multiple episodes of bilious projectile vomiting, even with 1 bite of food. She does have a history of gastroparesis. We will try IV Reglan today. - Constitutional Vitals: Temp Pulse Resp BP Pulse Ox 97.1 F L 91 100 148/68 92 09/15/17 11:46 09/15/17 11:46 09/15/17 11:46 09/15/17 11:46 09/15/17 11:42 General appearance: Present: cachectic, cooperative, A&O X 3, pleasant, no acute distress, underweight, answers questions appropriately - Head Head exam: Present: atraumatic - Eye Eye exam: Present: EOMI - ENT ENT exam: Present: mucous membranes moist - Respiratory Respiratory exam: Present: rhonchi (Bilateral coarse). Absent: accessory muscle use, chest wall tenderness, rales, respiratory distress, wheezes, tachypnea - Cardiovascular Cardiovascular exam: Present: RRR, +S1, +S2 - GI/Abdominal GI/Abdominal exam: Present: soft, no peritoneal signs. Absent: distended, firm , guarding, tenderness Additional comments: Colostomy bag in place and site looks okay. Urostomy bag is also in place and site looks okay - Extremities Exam Extremities exam: Present: radial pulses palpable and symmetrical. Absent: calf tenderness, cyanotic, pedal edema - Neurological Exam Neurological exam: Present: alert, oriented X3, no focal deficits. Absent: facial droop, speech deficit Internal Medicine: Result - Labs CBC & Chem 7: 09/15/17 04:41 09/15/17 04:41 Labs: Short CBC 09/15/17 Range/Units 04:41 WBC 5.4 (4.3-11.1) K/mcL Hgb 7.2 L (11.5-15.4) g/dL Hct 23.5 L (35.3-44.9) % Plt Count 126 L (140-400) K/mcL Neutrophils # 4.4 (1.6-8.9) K/mcL BMP 09/15/17 04:41 Sodium 143 Potassium 5.2 H Chloride 101 Carbon Dioxide 27 BUN 50 H D Creatinine 6.54 H Glucose 90 Calcium 7.8 L - ABG Interpretation ABG results: PT/INR, D-dimer PT 13.7 Seconds (9.4-12.1) H 09/08/17 03:55 Consult Discharge Plan - Plan Referrals: Na Johansen, CLINICAL APPLICATION MANAGER [Primary Care Provider] - 11/15/17 1:00 pm Prescriptions: Acetylcysteine 10% 2 ml IH [id number] #30 inhsol Ipratropium/Albuterol Neb [Duoneb] 3 ml IH [id number] #30 inhsol Cefdinir [Omnicef] 300 mg PO BID 10 Days #20 capsule GuaiFENesin ER [Mucinex] 600 mg PO BID 5 Days #10 tbbp.12hr Nicotine Patch [Nicoderm] 21 mg TD DAILY #30 patch.td24
[2017-09-15] MEDS ORDERED: Metoclopramide 10 MG/2 ML VIAL IVP SCH (14:15)
[2017-09-15] MEDS: Metoclopramide 10 MG/2 ML VIAL IVP SCH ×2 (14:55→16:28)
[2017-09-15] MEDS: Famotidine 20 MG TABLET PO SCH (22:42)
[2017-09-16] MEDS: Ipratropium/Albuterol Neb 3 ML IH SCH ×6 (00:35→23:24)
[2017-09-16] MEDS: Acetylcysteine 10% 2 ML INHSOL IH SCH ×6 (00:35→23:25)
[2017-09-16] MEDS: *HR* Morphine 2 MG/ML SYRINGE IVP PRN ×5 (02:31→20:36)
[2017-09-16] MEDS: Ondansetron 4 MG/2 ML VIAL IVP PRN ×2 (02:32→10:44)
[2017-09-16 04:55] LABS: Basophils % 0.1 %; Eosinophils % 0.1 %; Hematocrit 23.3 % (35.3-44.9); Hemoglobin 7.1 g/dL (11.5-15.4); Immature Granulocytes % 0.4 % (0-4); Lymphocytes % 14.8 %; Mean Corpuscular HGB Conc 30.5 g/dL (31.6-35.5); Mean Corpuscular Volume 95.1 fL (83.0-100.0); Mean Platelet Volume 11.5 fL (9.4-12.4); Monocytes # 0.3 K/mcL (0.0-1.3); Neutrophils # 5.4 K/mcL (1.6-8.9); Platelet Count 141 K/mcL (140-400); Red Blood Count 2.45 M/mcL (3.82-4.97); Red Cell Distribution Width 17.2 % (11.5-14.5); Segmented Neutrophils % 80.6 %
[2017-09-16 05:10] LABS: Calcium 7.9 mg/dL (8.6-10.8); Potassium 5.3 mEq/L (3.5-4.5)
[2017-09-16] MEDS: *HR* Heparin 5,000 UNIT/ML VIAL SQ SCH ×2 (06:26→18:23)
[2017-09-16] MEDS: *HR* Promethazine 25 MG/ML VIAL IVP PRN ×2 (06:26→20:54)
[2017-09-16] MEDS: Budesonide/Formoterol 80/4.5 MDI IH SCH ×2 (07:28→19:42)
--- NOTE | 2017-09-16 07:55 | Nephrology Progress Note ---
Date of Encounter: 09/16/17 Time of Encounter: 07:53 - Assessment and Plan (1) ESRD (end stage renal disease) on dialysis Current Visit: Yes Status: Chronic Plan for HD tomorrow If discharged need to have transportation arranged to start picking her back up for her outpatient dialysis treatments. Avoid nephrotoxins if possible (2) Hypomagnesemia Current Visit: No Status: Acute Mg 1.4 Recommend replacing (3) Anemia in CKD (chronic kidney disease) Current Visit: Yes Status: Chronic Hgb 7.9 Goal 10-11 Continue Aranesp Qualifiers: Chronic kidney disease stage: on chronic dialysis Qualified Code(s): N18.6 - End stage renal disease; D63.1 - Anemia in chronic kidney disease; D63.1 - Anemia in chronic kidney disease; Z99.2 - Dependence on renal dialysis; Z99.2 - Dependence on renal dialysis; Z99.2 - Dependence on renal dialysis; Z99.2 - Dependence on renal dialysis (4) Hypocalcemia Current Visit: No Status: Acute Ca+ 7.9 Will adjust the Ca+ bath in dialysis as needed (5) Colitis Current Visit: Yes Status: Acute per primary team (6) Pneumonia Current Visit: Yes Status: Acute per primary team Qualifiers: Pneumonia type: due to Escherichia coli Laterality: left Lung location: lower lobe of lung Qualified Code(s): J15.5 - Pneumonia due to Escherichia coli Subjective Principal diagnosis: ESRD Interval history: Patient seen and examined in dialysis. Feeling good today, hoping to go home Objective - Vital Signs Vital signs: Vital Signs Temp Pulse Resp BP Pulse Ox 09/16/17 07:30 14 96 09/16/17 07:23 98.0 F 85 14 123/55 96 09/16/17 04:29 98.0 F 98 16 138/66 92 09/16/17 04:12 18 97 09/16/17 00:35 20 98 09/15/17 23:20 97.9 F 112 17 140/67 93 09/15/17 21:18 97.7 F 90 16 134/54 93 09/15/17 19:58 20 100 09/15/17 16:48 20 09/15/17 16:41 98.0 F 84 17 122/65 100 09/15/17 11:46 97.1 F L 91 100 148/68 09/15/17 11:42 18 92 09/15/17 11:40 97.5 F L 15 150/63 09/15/17 11:30 131/50 09/15/17 11:00 137/63 09/15/17 10:30 125/58 09/15/17 10:00 139/68 09/15/17 09:30 143/68 09/15/17 09:00 97.5 F L 17 129/65 09/15/17 08:22 18 95 Intake and Output 09/15/17 09/15/17 09/16/17 15:59 23:59 07:59 Intake Total 720 / 720 Output Total 2611 / 2611 Balance -1891 / -1891 Intake: Oral 120 / 120 Intake, Rinseback and Flushes 600 / 600 Output: Urine 0 / 0 Total Dialysis (HD) Output 2611 / 2611 Other: Meal Lunch Percent of Meal Consumed 75% Weight 58.23 kg Blood Glucose* 87 109 78 Hemodialysis Net Fluid Removed 2010 (mL) Patient Weight 09/16/17 23:59 Weight 58.23 kg - General Appearance General appearance: Present: cachectic, chronically ill, frail EENT: Present: ATNC, mucous membranes moist, hearing intact, vision intact Neck: Present: supple Respiratory: Present: course breath sounds (much improved) Cardiology: Present: no edema, normal S1, normal S2 Dialysis Vascular Access: Arteriovenous Fistula Gastrointestinal: Present: no tenderness, no guarding Integumentary: Present: warm and dry Neurologic: Present: alert and oriented x3 Psychiatric: Present: mood/affect appropriate, cooperative - Lab 09/16/17 04:34 09/16/17 04:34 Most recent lab results Calcium 7.9 mg/dL (8.6-10.8) L 09/16/17 04:34 Phosphorus 6.1 mg/dL (2.3-4.7) H 09/09/17 05:52 Magnesium 1.4 mg/dL (1.6-2.6) L 09/16/17 04:34 Consult Discharge Plan - Plan Referrals: Na Johansen, MANAGER IN HOME [Primary Care Provider] - 09/17/17 1:00 pm Prescriptions: Acetylcysteine 10% 2 ml IH [id number] #30 inhsol Ipratropium/Albuterol Neb [Duoneb] 3 ml IH [id number] #30 inhsol Cefdinir [Omnicef] 300 mg PO BID 10 Days #20 capsule GuaiFENesin ER [Mucinex] 600 mg PO BID 5 Days #10 tbbp.12hr Nicotine Patch [Nicoderm] 21 mg TD DAILY #30 patch.td24
[2017-09-16] MEDS: Nicotine 21 MG PATCH.TD24 TD SCH (09:12)
[2017-09-16] MEDS: Lactobacillus 1 EACH CAP.SPRINK PO SCH ×2 (09:13→20:46)
[2017-09-16] MEDS: predniSONE 20 MG TABLET PO SCH (09:14)
[2017-09-16] MEDS: Cholecalciferol (D-3) 1,000 UNIT TABLET PO SCH (09:14)
[2017-09-16] MEDS: Renal Vitamin 1 MG CAPSULE PO SCH (09:14)
[2017-09-16] MEDS: Calcium Acetate 667 MG CAPSULE PO SCH ×3 (09:14→18:37)
[2017-09-16] MEDS: Diltiazem CD (24hr) 120 MG CAPSULE PO SCH (09:14)
--- NOTE | 2017-09-16 10:46 | Internal Med Progress Note ---
Date of Encounter: 09/16/17 Time of Encounter: 10:43 - Assessment and plan (1) Small bowel obstruction Current Visit: Yes Status: Acute Assessment and plan: Developed severe nausea and bilious, nonbloody vomiting 2 days ago, during this hospitalization. Will place nasogastric tube to low intermittent wall suction to provide symptomatic relief. Continue bowel rest, when necessary antiemetics and pain control with when necessary IV morphine. IV hydration. CT abdomen/ pelvis shows nonspecific dilated loops of small bowel without definite obstruction. We will reconsult surgery. (2) Colitis Current Visit: Yes Status: Acute Assessment and plan: Patient initially was admitted with colitis at splenic flexure and completed a course of IV Flagyl and ciprofloxacin. Surgery was consulted at the time and patient underwent multiple CT scans of her abdomen, recommended no surgical intervention. (3) Hypokalemia Current Visit: Yes Status: Resolved (4) COPD (chronic obstructive pulmonary disease) Current Visit: Yes Status: Acute Assessment and plan: Patient had mild acute exacerbation of COPD during this admission. Continue bronchodilators and supplemental oxygen as needed. Completed a course of IV antibiotics for possible pneumonia/acute bronchitis. Received enteral steroids for about 2 weeks, discontinue prednisone today. Qualifiers: COPD type: emphysema Emphysema type: panlobular Qualified Code(s): J43.1 - Panlobular emphysema (5) Anemia in CKD (chronic kidney disease) Current Visit: Yes Status: Chronic Assessment and plan: Hemoglobin noted to be stable around 7. Receives Epogen at hemodialysis. Qualifiers: Chronic kidney disease stage: on chronic dialysis Qualified Code(s): N18.6 - End stage renal disease; D63.1 - Anemia in chronic kidney disease; D63.1 - Anemia in chronic kidney disease; Z99.2 - Dependence on renal dialysis; Z99.2 - Dependence on renal dialysis; Z99.2 - Dependence on renal dialysis; Z99.2 - Dependence on renal dialysis (6) Ileostomy in place Current Visit: Yes Status: Chronic (7) ESRD (end stage renal disease) on dialysis Current Visit: Yes Status: Chronic Assessment and plan: Nephrology on board for hemodialysis needs. (8) Tobacco abuse Current Visit: Yes Status: Chronic (9) Leg pain Current Visit: Yes Status: Chronic Qualifiers: Laterality: bilateral Qualified Code(s): M79.604 - Pain in right leg; M79.605 - Pain in left leg; M79.605 - Pain in left leg (10) Chronic diarrhea Current Visit: Yes Status: Chronic (11) Hypothyroid Current Visit: Yes Status: Chronic Qualifiers: Hypothyroidism type: unspecified Qualified Code(s): E03.9 - Hypothyroidism , unspecified (12) Atrial fibrillation Current Visit: Yes Status: Chronic Assessment and plan: Currently rate controlled - Continue beta lex Not on long-term anticoagulation due to risk of falls and history of bleeds Qualifiers: Atrial fibrillation type: chronic Qualified Code(s): I48.2 - Chronic atrial fibrillation - Subjective Interval history: Reports nausea and persistent watery greenish vomiting, severe lower abdominal pain worse with vomiting; no fever/chills; continues to cough; - Constitutional Vitals: Temp Pulse Resp BP Pulse Ox 98.0 F 85 14 123/55 96 09/16/17 07:23 09/16/17 07:23 09/16/17 07:30 09/16/17 07:23 09/16/17 07:30 General appearance: Present: cachectic, mild distress, A&O X 3, underweight, answers questions appropriately - Respiratory Respiratory exam: Present: CTAB (coarse breath sounds B/L). Absent: accessory muscle use, rales, rhonchi, wheezes - Cardiovascular Cardiovascular exam: Present: RRR, +S1, +S2. Absent: diastolic murmur, gallop, rubs, systolic murmur - GI/Abdominal GI/Abdominal exam: Present: hyperactive bowel sounds, soft (tenderness in lower abdomen; left ileostomy, right urostomy in place), no peritoneal signs. Absent : distended, tenderness - Extremities Exam Extremities exam: Present: full ROM, warm, radial pulses palpable and symmetrical. Absent: calf tenderness, cyanotic, pedal edema - Neurological Exam Neurological exam: Present: CN II-XII intact, oriented X3, no focal deficits. Absent: pronater drift, facial droop, speech deficit - Skin Skin exam: Present: dry, intact Internal Medicine: Result - Labs CBC & Chem 7: 09/16/17 04:34 09/16/17 04:34 Labs: Short CBC 09/16/17 Range/Units 04:34 WBC 6.8 (4.3-11.1) K/mcL Hgb 7.1 L (11.5-15.4) g/dL Hct 23.3 L (35.3-44.9) % Plt Count 141 (140-400) K/mcL Neutrophils # 5.4 (1.6-8.9) K/mcL BMP 09/16/17 04:34 Sodium 140 Potassium 5.3 H Chloride 101 Carbon Dioxide 25 BUN 34 H D Creatinine 5.26 H Glucose 70 Calcium 7.9 L - ABG Interpretation ABG results: PT/INR, D-dimer PT 13.7 Seconds (9.4-12.1) H 09/08/17 03:55 - Impressions Impressions Abdomen/Pelvis CT 09/15/17 18:58 IMPRESSION: 1. Nonspecific fluid-filled mild dilation of small bowel in the left pelvis. Ileus and low-grade obstruction are considered. Consider further evaluation with a small bowel follow-through. 2. The large bowel is not as well visualized without oral contrast, but bowel wall thickening seen previously appears to have resolved. 3. Continued evidence of basilar consolidation, mainly on the left. Again, correlate clinical evidence of aspiration and pneumonia. 4. Diffuse anasarca D/ / Frank Ho MD / Frank Ho MD Interpreting Provider: Frank Ho MD Consult Discharge Plan - Plan Referrals: Na Johansen, CERTIFIED WELLNESS PROGRAM COORDINATOR [Primary Care Provider] - 09/17/17 1:00 pm Prescriptions: Acetylcysteine 10% 2 ml IH [id number] #30 inhsol Ipratropium/Albuterol Neb [Duoneb] 3 ml IH [id number] #30 inhsol Cefdinir [Omnicef] 300 mg PO BID 10 Days #20 capsule GuaiFENesin ER [Mucinex] 600 mg PO BID 5 Days #10 tbbp.12hr Nicotine Patch [Nicoderm] 21 mg TD DAILY #30 patch.td24
--- NOTE | 2017-09-16 15:16 | General Surgery Progress Note ---
<Angelica Valdivia Maggie - Last Filed: 09/16/17 15:30> Date of Encounter: 09/16/17 Time of Encounter: 14:45 - Assessment and Plan (1) Nausea and vomiting Current Visit: No Status: Acute Unclear etiology NG tube to LIWS Plan for SBFT with gastrograffin in the am to further evaluate Supportive care IV fluids Will continue to follow for recommendations No urgent surgical intervention indicated at this time Qualifiers: Vomiting type: unspecified Vomiting Intractability: non-intractable Qualified Code(s): R11.2 - Nausea with vomiting, unspecified (2) Abdominal pain Current Visit: No Status: Chronic Unclear etiology NG tube to LIWS Plan for SBFT with gastrograffin in the am to further evaluate Supportive care IV fluids Will continue to follow for recommendations No urgent surgical intervention indicated at this time Qualifiers: Abdominal location: left upper quadrant Qualified Code(s): R10.12 - Left upper quadrant pain (3) Pneumonia Current Visit: Yes Status: Acute Management per hospitalist Qualifiers: Pneumonia type: due to Escherichia coli Laterality: left Lung location: lower lobe of lung Qualified Code(s): J15.5 - Pneumonia due to Escherichia coli (4) COPD (chronic obstructive pulmonary disease) Current Visit: Yes Status: Acute Management per hospitalist Qualifiers: COPD type: emphysema Emphysema type: panlobular Qualified Code(s): J43.1 - Panlobular emphysema (5) Anemia in CKD (chronic kidney disease) Current Visit: Yes Status: Chronic Stable Hgb- 7.2>7.2>7.1 Qualifiers: Chronic kidney disease stage: on chronic dialysis Qualified Code(s): N18.6 - End stage renal disease; D63.1 - Anemia in chronic kidney disease; D63.1 - Anemia in chronic kidney disease; Z99.2 - Dependence on renal dialysis; Z99.2 - Dependence on renal dialysis; Z99.2 - Dependence on renal dialysis; Z99.2 - Dependence on renal dialysis (6) Ileostomy in place Current Visit: Yes Status: Chronic (7) ESRD (end stage renal disease) on dialysis Current Visit: Yes Status: Chronic Management per nephrology- Dr. Daniel (8) Generalized weakness Current Visit: No Status: Chronic (9) Chronic diarrhea Current Visit: Yes Status: Chronic Colitis resolved on CT scan completed 09/15/17 (10) Atrial fibrillation Current Visit: No Status: Chronic Rate controlled Management per hospitalist Qualifiers: Atrial fibrillation type: paroxysmal Qualified Code(s): I48.0 - Paroxysmal atrial fibrillation Subjective Patient reports: still having pain (abdominal discomfort), flatus, bowel movement (via ostomy), diarrhea (patient reports that this is chronic), nausea, vomiting (bilious), afebrile Objective Vital Signs - Last 8 Hours Temp Pulse Resp BP Pulse Ox 09/16/17 11:41 15 96 09/16/17 11:13 98.0 F 86 15 129/53 96 09/16/17 07:30 14 96 09/16/17 07:23 98.0 F 85 14 123/55 96 Intake and Output 09/15/17 09/16/17 09/16/17 23:59 07:59 15:59 Intake Total 0 / 0 Balance 0 / 0 Intake: Oral 0 / 0 Other: Meal NPO Weight 58.23 kg Blood Glucose* 109 78 77 Patient Weight 09/16/17 23:59 Weight 58.23 kg - General physical appearance well developed, no distress, chronically ill - Eyes normal ocular movement - ENT normal mucosa, atraumatic, normocephalic - Neck Neck exam: trachea midline - Respiratory normal respiratory effort, other (diminished bibasilar bases) rales: bilateral - Cardiovascular Cardiovascular exam: Present: irregular rhythm - Abdomen Abdomen: Present: bowel sounds present (hypoactive), soft, tender (generalized) , wound (Ostomy is pink and moist with stool noted in bag; Urostomy is pink and moist with clear, yellow urine noted) - Neurologic CN 2-12 grossly intact - Psychiatric oriented to time, oriented to person, oriented to place, speech is normal, memory intact - Labs 09/16/17 04:34 09/16/17 04:34 Diabetes panel 09/16/17 Range/Units 04:34 Sodium 140 (136-145) mEq/L Potassium 5.3 H (3.5-4.5) mEq/L Chloride 101 (98-109) mEq/L Carbon Dioxide 25 (19-29) mEq/L BUN 34 H D (7-20) mg/dL Creatinine 5.26 H (0.57-1.11) mg/dL Glucose 70 (70-99) mg/dL Calcium 7.9 L (8.6-10.8) mg/dL Calcium panel 09/16/17 Range/Units 04:34 Calcium 7.9 L (8.6-10.8) mg/dL Pituitary panel 09/16/17 Range/Units 04:34 Sodium 140 (136-145) mEq/L Potassium 5.3 H (3.5-4.5) mEq/L Chloride 101 (98-109) mEq/L Carbon Dioxide 25 (19-29) mEq/L BUN 34 H D (7-20) mg/dL Creatinine 5.26 H (0.57-1.11) mg/dL Glucose 70 (70-99) mg/dL Calcium 7.9 L (8.6-10.8) mg/dL Adrenal panel 09/16/17 Range/Units 04:34 Sodium 140 (136-145) mEq/L Potassium 5.3 H (3.5-4.5) mEq/L Chloride 101 (98-109) mEq/L Carbon Dioxide 25 (19-29) mEq/L BUN 34 H D (7-20) mg/dL Creatinine 5.26 H (0.57-1.11) mg/dL Glucose 70 (70-99) mg/dL Calcium 7.9 L (8.6-10.8) mg/dL Consult Discharge Plan - Plan Referrals: Na Johansen, RETAIL GREETER [Primary Care Provider] - 09/17/17 1:00 pm Prescriptions: Acetylcysteine 10% 2 ml IH [id number] #30 inhsol Ipratropium/Albuterol Neb [Duoneb] 3 ml IH [id number] #30 inhsol Cefdinir [Omnicef] 300 mg PO BID 10 Days #20 capsule GuaiFENesin ER [Mucinex] 600 mg PO BID 5 Days #10 tbbp.12hr Nicotine Patch [Nicoderm] 21 mg TD DAILY #30 patch.td24 - Attending Attestation For this encounter, I have reviewed the EMPLOYEE RELATIONS SPECIALIST or PA documentation, treatment plan, and medical decision making; and I have had face to face time with this patient. <Harpreet Kumari - Last Filed: 09/16/17 20:27> Date of Encounter: 09/16/17 Objective Vital Signs - Last 8 Hours Temp Pulse Resp BP Pulse Ox 09/16/17 19:42 16 94 09/16/17 17:14 97.5 F L 99 17 136/62 91 09/16/17 16:30 17 92 Intake and Output 09/16/17 09/16/17 09/16/17 07:59 15:59 23:59 Intake Total 0 / 0 Balance 0 / 0 Intake: Oral 0 / 0 Other: Meal NPO Weight 58.23 kg Blood Glucose* 78 77 68 Patient Weight 09/16/17 23:59 Weight 58.23 kg - Labs 09/16/17 04:34 09/16/17 04:34 Diabetes panel 09/16/17 Range/Units 04:34 Sodium 140 (136-145) mEq/L Potassium 5.3 H (3.5-4.5) mEq/L Chloride 101 (98-109) mEq/L Carbon Dioxide 25 (19-29) mEq/L BUN 34 H D (7-20) mg/dL Creatinine 5.26 H (0.57-1.11) mg/dL Glucose 70 (70-99) mg/dL Calcium 7.9 L (8.6-10.8) mg/dL Calcium panel 09/16/17 Range/Units 04:34 Calcium 7.9 L (8.6-10.8) mg/dL Pituitary panel 09/16/17 Range/Units 04:34 Sodium 140 (136-145) mEq/L Potassium 5.3 H (3.5-4.5) mEq/L Chloride 101 (98-109) mEq/L Carbon Dioxide 25 (19-29) mEq/L BUN 34 H D (7-20) mg/dL Creatinine 5.26 H (0.57-1.11) mg/dL Glucose 70 (70-99) mg/dL Calcium 7.9 L (8.6-10.8) mg/dL Adrenal panel 09/16/17 Range/Units 04:34 Sodium 140 (136-145) mEq/L Potassium 5.3 H (3.5-4.5) mEq/L Chloride 101 (98-109) mEq/L Carbon Dioxide 25 (19-29) mEq/L BUN 34 H D (7-20) mg/dL Creatinine 5.26 H (0.57-1.11) mg/dL Glucose 70 (70-99) mg/dL Calcium 7.9 L (8.6-10.8) mg/dL - Attending Attestation I have personally seen and examined the patient. I have reviewed pertinent labs , imaging, progress notes, including this one. I agree with the above assessment and plan and wish to include the following... 71F with mulitple abdominal surgeries, currently with urostomy and colostomy ( colostomy since 1991) who presents with symptoms consistent with SBO. Currently with output from colostomy (gas and stool) as well as bilious output form NG tube. abdomen is benign; recommend NG tube for 24 hours. if improved, then can consider clamping vs removal; replete lytes, activity as tolerated; will continue to follow
[2017-09-16] MEDS: Famotidine 20 MG TABLET PO SCH (20:46)
[2017-09-17] MEDS: Acetylcysteine 10% 2 ML INHSOL IH SCH ×7 (02:25→23:25)
[2017-09-17] MEDS: Ipratropium/Albuterol Neb 3 ML IH SCH ×7 (02:26→23:24)
[2017-09-17] MEDS: Ondansetron 4 MG/2 ML VIAL IVP PRN ×3 (03:16→20:32)
[2017-09-17] MEDS: *HR* Morphine 2 MG/ML SYRINGE IVP PRN ×2 (03:16→15:50)
[2017-09-17 05:13] LABS: Basophils % 0.1 %; Eosinophils % 0.1 %; Hematocrit 24.3 % (35.3-44.9); Hemoglobin 7.1 g/dL (11.5-15.4); Immature Granulocytes % 0.4 % (0-4); Lymphocytes # 0.9 K/mcL (0.6-4.6); Lymphocytes % 12.7 %; Mean Corpuscular HGB Conc 29.2 g/dL (31.6-35.5); Mean Corpuscular Hemoglobin 29.5 pg (28.0-33.3); Mean Corpuscular Volume 100.8 fL (83.0-100.0); Mean Platelet Volume 11.2 fL (9.4-12.4); Monocytes # 0.3 K/mcL (0.0-1.3); Monocytes % 4.1 %; Neutrophils # 5.6 K/mcL (1.6-8.9); Platelet Count 129 K/mcL (140-400); Red Blood Count 2.41 M/mcL (3.82-4.97); Red Cell Distribution Width 17.2 % (11.5-14.5); Segmented Neutrophils % 82.6 %
[2017-09-17 05:26] LABS: Albumin 2.6 g/dL (3.5-5.0); Calcium 7.8 mg/dL (8.6-10.8); Phosphorous 9.2 mg/dL (2.3-4.7); Potassium 5.4 mEq/L (3.5-4.5)
[2017-09-17] MEDS ORDERED: *HR* Dextrose 50 % in Water (Syg) 50 ML SYRINGE ONE (06:16)
[2017-09-17] MEDS: *HR* Heparin 5,000 UNIT/ML VIAL SQ SCH ×2 (06:22→16:58)
[2017-09-17] MEDS: *HR* Promethazine 25 MG/ML VIAL IVP PRN (06:25)
[2017-09-17] MEDS ORDERED: 0.9 % Sodium Chloride 250 ML IVC PRN (07:26)
[2017-09-17] MEDS: Budesonide/Formoterol 80/4.5 MDI IH SCH ×2 (10:43→19:44)
--- NOTE | 2017-09-17 11:09 | Nephrology Progress Note ---
Date of Encounter: 09/17/17 Time of Encounter: 10:15 - Assessment and Plan (1) ESRD (end stage renal disease) on dialysis Current Visit: Yes Status: Chronic HD today (Friday) for 3.25hr, 2K, with a goal UF of 2-3kg. Chronic, stable, continue HD thrice weekly for clearance and volume mgt. (2) Anemia in CKD (chronic kidney disease) Current Visit: Yes Status: Chronic Goal Hgb is 10-11. S/p Aranesp last week. Qualifiers: Chronic kidney disease stage: on chronic dialysis Qualified Code(s): N18.6 - End stage renal disease; D63.1 - Anemia in chronic kidney disease; D63.1 - Anemia in chronic kidney disease; Z99.2 - Dependence on renal dialysis; Z99.2 - Dependence on renal dialysis; Z99.2 - Dependence on renal dialysis; Z99.2 - Dependence on renal dialysis (3) COPD (chronic obstructive pulmonary disease) Current Visit: Yes Status: Acute As per primary Qualifiers: COPD type: emphysema Emphysema type: panlobular Qualified Code(s): J43.1 - Panlobular emphysema (4) Pneumonia Current Visit: Yes Status: Acute Appreciate the primary team. Qualifiers: Pneumonia type: due to Escherichia coli Laterality: left Lung location: lower lobe of lung Qualified Code(s): J15.5 - Pneumonia due to Escherichia coli (5) Ileostomy in place Current Visit: Yes Status: Chronic Chronic. Short bowel syndrome, chronically. Subjective Principal diagnosis: ESRD Interval history: Pt was s/e earlier today while on HD. She did not affirm F/C but said that her nausea has improved with the NGT. She did not report dialysis related symptoms such as cramping or dizzines. Objective - Vital Signs Vital signs: Vital Signs Temp Pulse Resp BP Pulse Ox 09/17/17 10:10 118/48 09/17/17 09:40 109/45 09/17/17 09:10 108/46 09/17/17 08:40 109/56 09/17/17 08:10 135/66 09/17/17 07:40 98 F 18 140/68 09/17/17 06:41 98.3 F 99 17 141/66 93 09/17/17 03:51 98.3 F 96 16 135/49 91 09/16/17 23:37 97.4 F L 87 16 137/66 100 09/16/17 23:24 18 98 09/16/17 20:23 97.6 F 100 16 140/67 86 09/16/17 19:42 16 94 09/16/17 17:14 97.5 F L 99 17 136/62 91 09/16/17 16:30 17 92 09/16/17 11:41 15 96 09/16/17 11:13 98.0 F 86 15 129/53 96 Intake and Output 09/16/17 09/17/17 09/17/17 23:59 07:59 15:59 Intake Total 600 / 600 Output Total 1300 / 1300 Balance -1300 / -1300 600 / 600 Intake: Oral 0 / 0 Intake, Rinseback and Flushes 600 / 600 Output: Stool 650 / 650 Gastric Drainage 650 / 650 Other: Stool Size Large Stool Consistency liquid Stool Color Green Weight 56.359 kg Blood Glucose* 67 105 Hemodialysis Net Fluid Removed 0 1824 (mL) Patient Weight 09/17/17 23:59 Weight 56.359 kg - General Appearance Exam: General appearance: Present: cachectic, chronically ill, fatigue EENT: Present: ATNC, PERRL, mucous membranes moist Neck: Present: supple Respiratory: Present: rhonchi Cardiology: Present: edema (trace pedal edema b/l), regular rate, regular rhythm , normal S1, normal S2 Dialysis Vascular Access: Arteriovenous Fistula (LUE AVF with +Thrill/bruit) thrill: Yes bruit: Yes Gastrointestinal: Present: no tenderness, no guarding Additional Comments: ostomy bags noted Integumentary: Present: warm and dry, ecchymotic Neurologic: Present: no focal deficit, no asterixis, alert and oriented x3 Musculoskeletal: Present: no erythema, no cyanosis, no clubbing Psychiatric: Present: mood/affect appropriate, cooperative - Lab 09/17/17 04:56 09/17/17 04:56 Most recent lab results Calcium 7.8 mg/dL (8.6-10.8) L 09/17/17 04:56 Phosphorus 9.2 mg/dL (2.3-4.7) H 09/17/17 04:56 Magnesium 2.0 mg/dL (1.6-2.6) 09/17/17 04:56 Consult Discharge Plan - Plan Referrals: Na Johansen, TYLER [Primary Care Provider] - 09/17/17 1:00 pm Prescriptions: Acetylcysteine 10% 2 ml IH [id number] #30 inhsol Ipratropium/Albuterol Neb [Duoneb] 3 ml IH [id number] #30 inhsol Cefdinir [Omnicef] 300 mg PO BID 10 Days #20 capsule GuaiFENesin ER [Mucinex] 600 mg PO BID 5 Days #10 tbbp.12hr Nicotine Patch [Nicoderm] 21 mg TD DAILY #30 patch.td24
[2017-09-17] MEDS ORDERED: Dextrose Gel 15 GM PO PRN ×2 (13:09)
[2017-09-17] MEDS ORDERED: *HR* Dextrose 50 % in Water (Syg) 50 ML SYRINGE IVP PRN (13:09)
[2017-09-17] MEDS ORDERED: D5% in Water 1,000 ML IVC PRN (13:09)
[2017-09-17] MEDS: Renal Vitamin 1 MG CAPSULE PO SCH (13:21)
[2017-09-17] MEDS: Lactobacillus 1 EACH CAP.SPRINK PO SCH ×2 (13:21→20:37)
[2017-09-17] MEDS: Cholecalciferol (D-3) 1,000 UNIT TABLET PO SCH (13:21)
[2017-09-17] MEDS: Diltiazem CD (24hr) 120 MG CAPSULE PO SCH (13:21)
[2017-09-17] MEDS: Calcium Acetate 667 MG CAPSULE PO SCH ×3 (13:22→16:58)
[2017-09-17] MEDS: *HR* OxyCODONE Immed Rel 5 MG TABLET PO PRN ×2 (13:22→20:38)
[2017-09-17] MEDS: Nicotine 21 MG PATCH.TD24 TD SCH (13:22)
[2017-09-17] MEDS ORDERED: 0.9 % Sodium Chloride 1,000 ML ONE (13:33)
--- NOTE | 2017-09-17 16:16 | General Surgery Progress Note ---
<Delia Blankenship - Last Filed: 09/17/17 16:14> Date of Encounter: 09/17/17 Time of Encounter: 16:14 - Assessment and Plan (1) Nausea and vomiting Current Visit: No Status: Acute Unclear etiology; SBFT without Obstruction. She endorses nausea, but when informed that she has no evident obstruction she requests "can I eat." No surgical intervention indicated at this time. Surgery will sign off at this time. Thank you for allowing us to participate in Ms. Parra's care. Recommend clamp or d/c NG and trial clear liquids when ok from medicine standpoint. Qualifiers: Vomiting type: unspecified Vomiting Intractability: non-intractable Qualified Code(s): R11.2 - Nausea with vomiting, unspecified Subjective Patient reports: still having pain, pain is less, voiding w/o difficulty, flatus , bowel movement, nausea Objective Vital Signs - Last 8 Hours Temp Resp BP Pulse Ox 09/17/17 16:05 16 99 09/17/17 11:35 97.8 F 18 119/58 09/17/17 10:55 108/47 09/17/17 10:40 121/57 09/17/17 10:10 118/48 09/17/17 09:40 109/45 09/17/17 09:10 108/46 09/17/17 08:40 109/56 Intake and Output 09/17/17 09/17/17 09/17/17 07:59 15:59 23:59 Intake Total 600 / 600 Output Total 2600 / 2600 Balance 600 / 600 -2600 / -2600 Intake: Oral 0 / 0 Intake, Rinseback and Flushes 600 / 600 Output: Urine 0 / 0 Total Dialysis (HD) Output 2600 / 2600 Other: Weight 56.359 kg Blood Glucose* 105 64 Hemodialysis Net Fluid Removed 0 2000 (mL) Patient Weight 09/17/17 23:59 Weight 56.359 kg - General physical appearance no distress - Eyes normal ocular movement - ENT atraumatic, normocephalic - Neck Neck exam: trachea midline, no venous distension - Respiratory other (Decreased bilateral breath sounds. Course rhonchi.) - Cardiovascular Cardiovascular exam: Present: RRR, murmurs - Abdomen Abdomen: Present: bowel sounds present, soft, tender Abdominal Tenderness: diffusely (unchanged from previous) Hernia: none - Neurologic normal sensation - Musculoskeletal normal posture - Psychiatric oriented to time, oriented to person, oriented to place, speech is normal, memory intact - Labs 09/17/17 04:56 09/17/17 04:56 Diabetes panel 09/17/17 Range/Units 04:56 Sodium 144 (136-145) mEq/L Potassium 5.4 H (3.5-4.5) mEq/L Chloride 100 (98-109) mEq/L Carbon Dioxide 25 (19-29) mEq/L BUN 52 H D (7-20) mg/dL Creatinine 6.98 H (0.57-1.11) mg/dL Glucose 49 L (70-99) mg/dL Calcium 7.8 L (8.6-10.8) mg/dL Albumin 2.6 L (3.5-5.0) g/dL Calcium panel 09/17/17 Range/Units 04:56 Calcium 7.8 L (8.6-10.8) mg/dL Phosphorus 9.2 H (2.3-4.7) mg/dL Albumin 2.6 L (3.5-5.0) g/dL Pituitary panel 09/17/17 Range/Units 04:56 Sodium 144 (136-145) mEq/L Potassium 5.4 H (3.5-4.5) mEq/L Chloride 100 (98-109) mEq/L Carbon Dioxide 25 (19-29) mEq/L BUN 52 H D (7-20) mg/dL Creatinine 6.98 H (0.57-1.11) mg/dL Glucose 49 L (70-99) mg/dL Calcium 7.8 L (8.6-10.8) mg/dL Adrenal panel 09/17/17 Range/Units 04:56 Sodium 144 (136-145) mEq/L Potassium 5.4 H (3.5-4.5) mEq/L Chloride 100 (98-109) mEq/L Carbon Dioxide 25 (19-29) mEq/L BUN 52 H D (7-20) mg/dL Creatinine 6.98 H (0.57-1.11) mg/dL Glucose 49 L (70-99) mg/dL Calcium 7.8 L (8.6-10.8) mg/dL Albumin 2.6 L (3.5-5.0) g/dL - Imaging Additional Studies: Abdomen/Pelvis CT 09/15/17 18:58 IMPRESSION: 1. Nonspecific fluid-filled mild dilation of small bowel in the left pelvis. Ileus and low-grade obstruction are considered. Consider further evaluation with a small bowel follow-through. 2. The large bowel is not as well visualized without oral contrast, but bowel wall thickening seen previously appears to have resolved. 3. Continued evidence of basilar consolidation, mainly on the left. Again, correlate clinical evidence of aspiration and pneumonia. 4. Diffuse anasarca D/ / Frank Ho MD / Frank Ho MD Interpreting Provider: Frank Ho MD X-Ray 09/16/17 14:16 IMPRESSION: Proximal positioning of nasogastric tube. Recommend advancing 5-8 cm. D/ / Buddy Aldridge / Buddy Aldridge Interpreting Provider: Buddy Aldridge Small Bowel X-Ray 09/17/17 07:00 IMPRESSION: Left-sided colostomy. No definite evidence of small bowel obstruction. D/ / 09/17/2017 15:35:09 Anthony Basilio MD / jenny Interpreting Provider: Anthony Basilio MD Consult Discharge Plan - Plan Referrals: Na Johansen CNP [Primary Care Provider] - 09/17/17 1:00 pm Prescriptions: Acetylcysteine 10% 2 ml IH [id number] #30 inhsol Ipratropium/Albuterol Neb [Duoneb] 3 ml IH [id number] #30 inhsol Cefdinir [Omnicef] 300 mg PO BID 10 Days #20 capsule GuaiFENesin ER [Mucinex] 600 mg PO BID 5 Days #10 tbbp.12hr Nicotine Patch [Nicoderm] 21 mg TD DAILY #30 patch.td24 <Harpreet Kumari - Last Filed: 09/17/17 21:32> Date of Encounter: 09/17/17 Objective Vital Signs - Last 8 Hours Temp Pulse Resp BP Pulse Ox 09/17/17 20:01 98.3 F 81 16 131/45 96 09/17/17 19:48 14 97 09/17/17 16:40 98.0 F 85 18 128/51 99 09/17/17 16:05 16 99 Intake and Output 09/17/17 09/17/17 09/17/17 07:59 15:59 23:59 Intake Total 600 / 600 Output Total 2600 / 2600 850 / 850 Balance 600 / 600 -2600 / -2600 -850 / -850 Intake: Oral 0 / 0 Intake, Rinseback and Flushes 600 / 600 Output: Urine 0 / 0 Total Dialysis (HD) Output 2600 / 2600 Gastric Drainage 850 / 850 Left Nare 850 / 850 Other: Weight 56.359 kg Blood Glucose* 105 64 54 Hemodialysis Net Fluid Removed 0 2000 (mL) Patient Weight 09/17/17 23:59 Weight 56.359 kg - Labs 09/17/17 04:56 09/17/17 04:56 Diabetes panel 09/17/17 Range/Units 04:56 Sodium 144 (136-145) mEq/L Potassium 5.4 H (3.5-4.5) mEq/L Chloride 100 (98-109) mEq/L Carbon Dioxide 25 (19-29) mEq/L BUN 52 H D (7-20) mg/dL Creatinine 6.98 H (0.57-1.11) mg/dL Glucose 49 L (70-99) mg/dL Calcium 7.8 L (8.6-10.8) mg/dL Albumin 2.6 L (3.5-5.0) g/dL Calcium panel 09/17/17 Range/Units 04:56 Calcium 7.8 L (8.6-10.8) mg/dL Phosphorus 9.2 H (2.3-4.7) mg/dL Albumin 2.6 L (3.5-5.0) g/dL Pituitary panel 09/17/17 Range/Units 04:56 Sodium 144 (136-145) mEq/L Potassium 5.4 H (3.5-4.5) mEq/L Chloride 100 (98-109) mEq/L Carbon Dioxide 25 (19-29) mEq/L BUN 52 H D (7-20) mg/dL Creatinine 6.98 H (0.57-1.11) mg/dL Glucose 49 L (70-99) mg/dL Calcium 7.8 L (8.6-10.8) mg/dL Adrenal panel 09/17/17 Range/Units 04:56 Sodium 144 (136-145) mEq/L Potassium 5.4 H (3.5-4.5) mEq/L Chloride 100 (98-109) mEq/L Carbon Dioxide 25 (19-29) mEq/L BUN 52 H D (7-20) mg/dL Creatinine 6.98 H (0.57-1.11) mg/dL Glucose 49 L (70-99) mg/dL Calcium 7.8 L (8.6-10.8) mg/dL Albumin 2.6 L (3.5-5.0) g/dL - Attending Attestation Patient seen and examined. reviewed all pertinent labs, imaging and progress notes. agree with the above proposed plan
--- NOTE | 2017-09-17 17:16 | Internal Med Progress Note ---
Date of Encounter: 09/17/17 Time of Encounter: 15:00 - Assessment and plan (1) Small bowel obstruction Current Visit: Yes Status: Ruled-out Assessment and plan: Developed severe nausea and bilious, nonbloody vomiting 2 days ago, during this hospitalization. Nasogastric tube, to intermittent low wall suction, trained around 1400 mL since yesterday. Surgery on board. Follow up small bowel follow -through study. Continue bowel rest, when necessary antiemetics and pain control with when necessary IV morphine. I (2) Colitis Current Visit: Yes Status: Acute Assessment and plan: Patient initially was admitted with colitis at splenic flexure and completed a course of IV Flagyl and ciprofloxacin. Surgery was consulted at the time and patient underwent multiple CT scans of her abdomen, recommended no surgical intervention. (3) Hypokalemia Current Visit: Yes Status: Resolved (4) COPD (chronic obstructive pulmonary disease) Current Visit: Yes Status: Acute Assessment and plan: Patient had mild acute exacerbation of COPD during this admission. Improved now. Continue bronchodilators and supplemental oxygen as needed. Completed a course of IV antibiotics for possible pneumonia/acute bronchitis. Received enteral steroids for about 2 weeks. Qualifiers: COPD type: emphysema Emphysema type: panlobular Qualified Code(s): J43.1 - Panlobular emphysema (5) Anemia in CKD (chronic kidney disease) Current Visit: Yes Status: Chronic Assessment and plan: Hemoglobin noted to be stable around 7. Receives Epogen at hemodialysis. Qualifiers: Chronic kidney disease stage: on chronic dialysis Qualified Code(s): N18.6 - End stage renal disease; D63.1 - Anemia in chronic kidney disease; D63.1 - Anemia in chronic kidney disease; Z99.2 - Dependence on renal dialysis; Z99.2 - Dependence on renal dialysis; Z99.2 - Dependence on renal dialysis; Z99.2 - Dependence on renal dialysis (6) Ileostomy in place Current Visit: Yes Status: Chronic (7) ESRD (end stage renal disease) on dialysis Current Visit: Yes Status: Chronic Assessment and plan: Nephrology on board for hemodialysis needs. Underwent dialysis today. (8) Tobacco abuse Current Visit: Yes Status: Chronic (9) Leg pain Current Visit: Yes Status: Chronic Qualifiers: Laterality: bilateral Qualified Code(s): M79.604 - Pain in right leg; M79.605 - Pain in left leg; M79.605 - Pain in left leg (10) Chronic diarrhea Current Visit: Yes Status: Chronic (11) Hypothyroid Current Visit: Yes Status: Chronic Qualifiers: Hypothyroidism type: unspecified Qualified Code(s): E03.9 - Hypothyroidism , unspecified (12) Atrial fibrillation Current Visit: Yes Status: Chronic Assessment and plan: Currently rate controlled - Continue beta lex Not on long-term anticoagulation due to risk of falls and history of bleeds Qualifiers: Atrial fibrillation type: chronic Qualified Code(s): I48.2 - Chronic atrial fibrillation - Subjective Interval history: Continues to report abdominal pain; noted to have greenish watery NG tube output 600cc; underwent HD and radiology testing today; - Constitutional Vitals: Temp Pulse Resp BP Pulse Ox 98.0 F 85 18 128/51 99 09/17/17 16:40 09/17/17 16:40 09/17/17 16:40 09/17/17 16:40 09/17/17 16:40 General appearance: Present: cachectic, A&O X 3, underweight, answers questions appropriately - Respiratory Respiratory exam: Present: CTAB (coarse breath sounds B/L). Absent: accessory muscle use, rales, rhonchi, wheezes - Cardiovascular Cardiovascular exam: Present: RRR, +S1, +S2. Absent: diastolic murmur, gallop, rubs, systolic murmur - GI/Abdominal GI/Abdominal exam: Present: normal bowel sounds (firm with underlying scar tissue from previous surgeries; left ileostomy with dark stool, right urostomy+) , soft, no peritoneal signs. Absent: distended, tenderness Internal Medicine: Result - Labs CBC & Chem 7: 09/17/17 04:56 09/17/17 04:56 Labs: Short CBC 09/17/17 Range/Units 04:56 WBC 6.8 (4.3-11.1) K/mcL Hgb 7.1 L (11.5-15.4) g/dL Hct 24.3 L (35.3-44.9) % Plt Count 129 L (140-400) K/mcL Neutrophils # 5.6 (1.6-8.9) K/mcL BMP 09/17/17 04:56 Sodium 144 Potassium 5.4 H Chloride 100 Carbon Dioxide 25 BUN 52 H D Creatinine 6.98 H Glucose 49 L Calcium 7.8 L Cardiac Enzymes 09/17/17 Range/Units 15:52 Troponin I 0.01 (0-0.03) ng/mL Liver Function 09/17/17 Range/Units 04:56 Albumin 2.6 L (3.5-5.0) g/dL - ABG Interpretation ABG results: PT/INR, D-dimer PT 13.7 Seconds (9.4-12.1) H 09/08/17 03:55 - Impressions Impressions Small Bowel X-Ray 09/17/17 07:00 IMPRESSION: Left-sided colostomy. No definite evidence of small bowel obstruction. D/ / 09/17/2017 15:35:09 Anthony Basilio MD / jenny Interpreting Provider: Anthony Basilio MD Consult Discharge Plan - Plan Referrals: Na Johansen, [employer] [Primary Care Provider] - 09/17/17 1:00 pm Prescriptions: Acetylcysteine 10% 2 ml IH [id number] #30 inhsol Ipratropium/Albuterol Neb [Duoneb] 3 ml IH [id number] #30 inhsol Cefdinir [Omnicef] 300 mg PO BID 10 Days #20 capsule GuaiFENesin ER [Mucinex] 600 mg PO BID 5 Days #10 tbbp.12hr Nicotine Patch [Nicoderm] 21 mg TD DAILY #30 patch.td24
[2017-09-17] MEDS: Famotidine 20 MG TABLET PO SCH (20:36)
[2017-09-18] MEDS: *HR* Promethazine 25 MG/ML VIAL IVP PRN ×2 (01:41→17:27)
[2017-09-18] MEDS: *HR* OxyCODONE Immed Rel 5 MG TABLET PO PRN ×4 (01:41→20:39)
[2017-09-18] MEDS: Acetylcysteine 10% 2 ML INHSOL IH SCH ×6 (04:30→23:12)
[2017-09-18] MEDS: Ipratropium/Albuterol Neb 3 ML IH SCH ×6 (04:30→23:12)
[2017-09-18] MEDS: *HR* Heparin 5,000 UNIT/ML VIAL SQ SCH ×2 (05:59→19:30)
[2017-09-18] MEDS: Budesonide/Formoterol 80/4.5 MDI IH SCH ×2 (07:52→19:55)
[2017-09-18] MEDS: Diltiazem CD (24hr) 120 MG CAPSULE PO SCH (08:07)
[2017-09-18] MEDS: Nicotine 21 MG PATCH.TD24 TD SCH (08:07)
[2017-09-18] MEDS: Calcium Acetate 667 MG CAPSULE PO SCH ×3 (08:07→19:30)
[2017-09-18] MEDS: Cholecalciferol (D-3) 1,000 UNIT TABLET PO SCH (08:07)
[2017-09-18] MEDS: Lactobacillus 1 EACH CAP.SPRINK PO SCH ×2 (08:07→20:41)
[2017-09-18] MEDS: Renal Vitamin 1 MG CAPSULE PO SCH (08:07)
--- NOTE | 2017-09-18 08:36 | Nephrology Progress Note ---
Date of Encounter: 09/18/17 Time of Encounter: 08:34 - Assessment and Plan (1) ESRD (end stage renal disease) on dialysis Current Visit: Yes Status: Chronic Plan for HD tomorrow Renal diet when diet advanced; phos level 9.2-make sure binders are given WITH meals Avoid nephrotoxins if possible (2) Hypomagnesemia Current Visit: No Status: Resolved (3) Anemia in CKD (chronic kidney disease) Current Visit: Yes Status: Chronic Hgb 7.1 Goal 10-11 Continue Aranesp Qualifiers: Chronic kidney disease stage: on chronic dialysis Qualified Code(s): N18.6 - End stage renal disease; D63.1 - Anemia in chronic kidney disease; D63.1 - Anemia in chronic kidney disease; Z99.2 - Dependence on renal dialysis; Z99.2 - Dependence on renal dialysis; Z99.2 - Dependence on renal dialysis; Z99.2 - Dependence on renal dialysis (4) Hypocalcemia Current Visit: No Status: Acute Ca+ 7.8 Will adjust the Ca+ bath in dialysis as needed (5) Colitis Current Visit: Yes Status: Acute per primary team (6) Pneumonia Current Visit: Yes Status: Acute per primary team Qualifiers: Pneumonia type: due to Escherichia coli Laterality: left Lung location: lower lobe of lung Qualified Code(s): J15.5 - Pneumonia due to Escherichia coli Subjective Principal diagnosis: ESRD Interval history: Patient seen and examined in dialysis. States she doesn't feel well today but has NG tube clamped and is eating/drinking now. Objective - Vital Signs Vital signs: Vital Signs Temp Pulse Resp BP Pulse Ox 09/18/17 07:52 16 99 09/18/17 07:46 97.5 F L 90 16 137/61 99 09/18/17 04:32 12 100 09/18/17 03:55 98.0 F 84 18 138/64 100 09/18/17 00:22 97.7 F 93 18 143/56 100 09/17/17 23:25 16 95 09/17/17 20:01 98.3 F 81 16 131/45 96 09/17/17 19:48 14 97 09/17/17 16:40 98.0 F 85 18 128/51 99 09/17/17 16:05 16 99 09/17/17 11:35 97.8 F 18 119/58 09/17/17 10:55 108/47 09/17/17 10:40 121/57 09/17/17 10:10 118/48 09/17/17 09:40 109/45 09/17/17 09:10 108/46 09/17/17 08:40 109/56 Intake and Output 09/17/17 09/18/17 09/18/17 23:59 07:59 15:59 Output Total 1300 / 1300 1850 / 1850 Balance -1300 / -1300 -1850 / -1850 Output: Stool 450 / 450 Gastric Drainage 850 / 850 1850 / 1850 Left Nare 850 / 850 Other: Stool Size Small Stool Consistency loose Stool Color Brown Ronnell Colored Weight 56.5 kg Blood Glucose* 54 68 Patient Weight 09/18/17 23:59 Weight 56.5 kg - General Appearance General appearance: Present: cachectic, chronically ill, frail EENT: Present: ATNC, mucous membranes moist, hearing intact, vision intact Neck: Present: supple Respiratory: Present: course breath sounds, rhonchi Cardiology: Present: no edema, normal S1, normal S2 Dialysis Vascular Access: Arteriovenous Fistula Gastrointestinal: Present: no tenderness, no guarding Integumentary: Present: warm and dry Neurologic: Present: alert and oriented x3 Psychiatric: Present: mood/affect appropriate, cooperative - Lab 09/17/17 04:56 09/17/17 04:56 Most recent lab results Calcium 7.8 mg/dL (8.6-10.8) L 09/17/17 04:56 Phosphorus 9.2 mg/dL (2.3-4.7) H 09/17/17 04:56 Magnesium 2.0 mg/dL (1.6-2.6) 09/17/17 04:56 Consult Discharge Plan - Plan Referrals: Na Johansen, TUBE P[employer]ER [Primary Care Provider] - 09/17/17 1:00 pm Prescriptions: Acetylcysteine 10% 2 ml IH [id number] #30 inhsol Ipratropium/Albuterol Neb [Duoneb] 3 ml IH [id number] #30 inhsol Cefdinir [Omnicef] 300 mg PO BID 10 Days #20 capsule GuaiFENesin ER [Mucinex] 600 mg PO BID 5 Days #10 tbbp.12hr Nicotine Patch [Nicoderm] 21 mg TD DAILY #30 patch.td24
--- NOTE | 2017-09-18 10:27 | Internal Med Progress Note ---
Date of Encounter: 09/18/17 Time of Encounter: 10:24 - Assessment and plan (1) Nausea and vomiting Current Visit: Yes Status: Acute Assessment and plan: unclear etiology; no SBO on imaging; continue supportive care with PRN Zofran and Phenergan; will consider gastric emptying study for persistent symptoms; Qualifiers: Vomiting type: unspecified Vomiting Intractability: non-intractable Qualified Code(s): R11.2 - Nausea with vomiting, unspecified (2) Small bowel obstruction Current Visit: Yes Status: Ruled-out Assessment and plan: CT abdomen/pelvis showed dilated loops of small bowel, s/o- ileus. Surgery consulted, SBFT showed no e/o- obstruction, no further surgical intervention at this time. Recommend clear liquid diet. Will discontinue NG tube and start clear liquids with supportive care- PRN antiemetics and analgesics. (3) Colitis Current Visit: Yes Status: Acute Assessment and plan: Patient initially was admitted with colitis at splenic flexure and completed a course of IV Flagyl and ciprofloxacin. Surgery was consulted at the time and patient underwent multiple CT scans of her abdomen, recommended no surgical intervention. (4) Hypokalemia Current Visit: Yes Status: Resolved (5) COPD (chronic obstructive pulmonary disease) Current Visit: Yes Status: Chronic Assessment and plan: Patient had mild acute exacerbation of COPD during this admission. Resolved now. Continue bronchodilators and supplemental oxygen as needed. Completed a course of IV antibiotics for possible pneumonia/acute bronchitis. Received enteral steroids for about 2 weeks. Qualifiers: COPD type: emphysema Emphysema type: panlobular Qualified Code(s): J43.1 - Panlobular emphysema (6) Anemia in CKD (chronic kidney disease) Current Visit: Yes Status: Chronic Assessment and plan: Hb improved to 8; receives Epogen at HD; Qualifiers: Chronic kidney disease stage: on chronic dialysis Qualified Code(s): N18.6 - End stage renal disease; D63.1 - Anemia in chronic kidney disease; D63.1 - Anemia in chronic kidney disease; Z99.2 - Dependence on renal dialysis; Z99.2 - Dependence on renal dialysis; Z99.2 - Dependence on renal dialysis; Z99.2 - Dependence on renal dialysis (7) Ileostomy in place Current Visit: Yes Status: Chronic (8) ESRD (end stage renal disease) on dialysis Current Visit: Yes Status: Chronic Assessment and plan: Nephrology on board for hemodialysis needs. Receiving regular HD sessions; (9) Tobacco abuse Current Visit: Yes Status: Chronic (10) Leg pain Current Visit: Yes Status: Chronic Qualifiers: Laterality: bilateral Qualified Code(s): M79.604 - Pain in right leg; M79.605 - Pain in left leg; M79.605 - Pain in left leg (11) Chronic diarrhea Current Visit: Yes Status: Chronic Assessment and plan: Stool testing negative for infections; (12) Hypothyroid Current Visit: Yes Status: Chronic Qualifiers: Hypothyroidism type: unspecified Qualified Code(s): E03.9 - Hypothyroidism , unspecified (13) Atrial fibrillation Current Visit: Yes Status: Chronic Assessment and plan: Currently rate controlled - Continue beta lex, calcium channel lex; Not on long-term anticoagulation due to risk of falls and history of bleeds Qualifiers: Atrial fibrillation type: chronic Qualified Code(s): I48.2 - Chronic atrial fibrillation - Subjective Interval history: Feels better today with improved abdominal pain; however continues to report nausea and vomiting but wants to eat; NG tube has been connected to LIWS while she is on diet? - Constitutional Vitals: Temp Pulse Resp BP Pulse Ox 97.5 F L 90 16 137/61 99 09/18/17 07:46 09/18/17 07:46 09/18/17 07:52 09/18/17 07:46 09/18/17 07:52 General appearance: Present: cachectic, A&O X 3, underweight, answers questions appropriately - Respiratory Respiratory exam: Present: CTAB (coarse breath sounds, resolved wheezing). Absent: accessory muscle use, rales, rhonchi, wheezes - Cardiovascular Cardiovascular exam: Present: RRR, +S1, +S2. Absent: diastolic murmur, gallop, rubs, systolic murmur - GI/Abdominal GI/Abdominal exam: Present: normal bowel sounds, soft (left ileostomy and right urostomy in place; scaphoid abdomen, no acute changes), no peritoneal signs. Absent: distended, tenderness - Extremities Exam Extremities exam: Present: full ROM, warm, radial pulses palpable and symmetrical. Absent: calf tenderness, cyanotic, pedal edema Internal Medicine: Result - Labs CBC & Chem 7: 09/18/17 10:20 09/18/17 10:20 Labs: Cardiac Enzymes 09/17/17 Range/Units 15:52 Troponin I 0.01 (0-0.03) ng/mL - ABG Interpretation ABG results: PT/INR, D-dimer PT 13.7 Seconds (9.4-12.1) H 09/08/17 03:55 - Impressions Impressions Small Bowel X-Ray 09/17/17 07:00 IMPRESSION: Left-sided colostomy. No definite evidence of small bowel obstruction. D/ / 09/17/2017 15:35:09 Anthony Basilio MD / jenny Interpreting Provider: Anthony Basilio MD Consult Discharge Plan - Plan Referrals: Na Johansen CNP [Primary Care Provider] - 09/30/17 9:45 am ( ) Prescriptions: Acetylcysteine 10% 2 ml IH [id number] #30 inhsol Ipratropium/Albuterol Neb [Duoneb] 3 ml IH [id number] #30 inhsol Cefdinir [Omnicef] 300 mg PO BID 10 Days #20 capsule GuaiFENesin ER [Mucinex] 600 mg PO BID 5 Days #10 tbbp.12hr Nicotine Patch [Nicoderm] 21 mg TD DAILY #30 patch.td24
[2017-09-18 10:42] LABS: Basophils % 0.1 %; Eosinophils % 0.1 %; Hematocrit 25.9 % (35.3-44.9); Immature Granulocytes % 0.5 % (0-4); Lymphocytes # 0.5 K/mcL (0.6-4.6); Lymphocytes % 6.2 %; Mean Corpuscular HGB Conc 30.9 g/dL (31.6-35.5); Mean Corpuscular Hemoglobin 29.7 pg (28.0-33.3); Mean Corpuscular Volume 96.3 fL (83.0-100.0); Mean Platelet Volume 10.4 fL (9.4-12.4); Monocytes # 0.3 K/mcL (0.0-1.3); Monocytes % 3.1 %; Neutrophils # 7.6 K/mcL (1.6-8.9); Platelet Count 137 K/mcL (140-400); Red Blood Count 2.69 M/mcL (3.82-4.97); Red Cell Distribution Width 17.2 % (11.5-14.5)
[2017-09-18 10:48] LABS: Albumin 2.6 g/dL (3.5-5.0); Calcium 8.1 mg/dL (8.6-10.8); Phosphorous 8.5 mg/dL (2.3-4.7)
[2017-09-18 10:49] LABS: Potassium 3.6 mEq/L (3.5-4.5)
[2017-09-18] MEDS: Ondansetron 4 MG/2 ML VIAL IVP PRN (15:21)
--- NOTE | 2017-09-18 17:49 | Electrocardiograph Report ---
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
[2017-09-18] MEDS: D5% in 0.45% NACL 1,000 ML IVC SCH (18:27)
[2017-09-18] MEDS: Famotidine 20 MG TABLET PO SCH (20:41)
[2017-09-19] MEDS: *HR* OxyCODONE Immed Rel 5 MG TABLET PO PRN ×4 (02:37→20:30)
[2017-09-19] MEDS: Ondansetron 4 MG/2 ML VIAL IVP PRN ×2 (02:38→20:29)
[2017-09-19] MEDS: Ipratropium/Albuterol Neb 3 ML IH SCH ×6 (03:47→23:24)
[2017-09-19] MEDS: Acetylcysteine 10% 2 ML INHSOL IH SCH ×6 (03:47→23:24)
[2017-09-19] MEDS: *HR* Heparin 5,000 UNIT/ML VIAL SQ SCH ×2 (04:55→18:21)
[2017-09-19 05:25] LABS: Basophils % 0.1 %; Eosinophils # 0.1 K/mcL (0.0-0.6); Eosinophils % 0.7 %; Hematocrit 22.9 % (35.3-44.9); Hemoglobin 7.1 g/dL (11.5-15.4); Immature Granulocytes % 0.4 % (0-4); Lymphocytes # 0.9 K/mcL (0.6-4.6); Lymphocytes % 13.7 %; Mean Corpuscular Hemoglobin 29.5 pg (28.0-33.3); Mean Platelet Volume 10.8 fL (9.4-12.4); Monocytes # 0.3 K/mcL (0.0-1.3); Monocytes % 3.6 %; Neutrophils # 5.6 K/mcL (1.6-8.9); Platelet Count 114 K/mcL (140-400); Red Blood Count 2.41 M/mcL (3.82-4.97); Red Cell Distribution Width 17.2 % (11.5-14.5); Segmented Neutrophils % 81.5 %
[2017-09-19 05:40] LABS: Albumin 2.4 g/dL (3.5-5.0); Calcium 7.6 mg/dL (8.6-10.8); Phosphorous 8.8 mg/dL (2.3-4.7)
[2017-09-19] MEDS ORDERED: 0.9 % Sodium Chloride 250 ML IVC PRN (06:54)
[2017-09-19] MEDS: Calcium Acetate 667 MG CAPSULE PO SCH ×3 (07:04→15:19)
[2017-09-19] MEDS: Nicotine 21 MG PATCH.TD24 TD SCH (07:56)
[2017-09-19] MEDS: Lactobacillus 1 EACH CAP.SPRINK PO SCH ×2 (07:56→20:29)
[2017-09-19] MEDS: Cholecalciferol (D-3) 1,000 UNIT TABLET PO SCH (07:56)
[2017-09-19] MEDS: Diltiazem CD (24hr) 120 MG CAPSULE PO SCH (07:56)
[2017-09-19] MEDS: Renal Vitamin 1 MG CAPSULE PO SCH (07:56)
[2017-09-19] MEDS: *HR* Promethazine 25 MG/ML VIAL IVP PRN (08:06)
[2017-09-19] MEDS: Budesonide/Formoterol 80/4.5 MDI IH SCH ×2 (08:13→20:35)
--- NOTE | 2017-09-19 13:58 | Nephrology Progress Note ---
Date of Encounter: 09/19/17 Time of Encounter: 13:57 - Assessment and Plan (1) ESRD (end stage renal disease) on dialysis Current Visit: Yes Status: Chronic HD MWF. Patient seen on dialysis today. Renal vitamins. Renal dose medications. Renal diet. (2) Frail elderly Current Visit: No Status: Acute Per primary team. (3) Hyperphosphatemia Current Visit: No Status: Acute Started phosphate binder, follow phosphorus. PTH elevated and vitamin D normal. Renal diet. (4) Hypocalcemia Current Visit: No Status: Acute Improving. Will place on higher calcium bath with dialysis. Check ionized calcium and replace as needed. (5) Hyperparathyroidism Current Visit: Yes Status: Acute Likely physiologic response to hypocalcemia. Correct calcium and repeat. Subjective Principal diagnosis: ESRD Interval history: Patient seen while on dialysis. . She reports reproducible left sided chest pain. She denies dysnea. She denies trauma. Objective - Vital Signs Vital signs: Vital Signs Temp Pulse Resp BP Pulse Ox 09/19/17 12:32 97.2 F L 17 121/55 09/19/17 11:53 97.2 F L 17 121/55 09/19/17 11:30 119/55 09/19/17 11:15 94/40 09/19/17 10:45 109/49 09/19/17 10:15 104/48 09/19/17 09:45 104/53 09/19/17 09:15 103/49 09/19/17 09:00 101/49 09/19/17 08:45 121/50 09/19/17 08:15 97.2 F L 18 115/54 09/19/17 07:28 98.0 F 75 15 122/53 91 09/19/17 03:47 16 87 09/19/17 03:37 98.1 F 77 17 110/37 90 09/18/17 23:43 98.0 F 84 17 110/46 95 09/18/17 23:12 18 99 09/18/17 19:55 17 89 09/18/17 19:47 98.4 F 80 18 123/54 92 09/18/17 16:56 98.3 F 81 16 133/56 100 09/18/17 16:08 18 98 Intake and Output 09/18/17 09/19/17 09/19/17 23:59 07:59 15:59 Intake Total 600 / 600 Output Total 400 / 400 1600 / 1600 Balance -400 / -400 -1000 / -1000 Intake: Oral 0 / 0 Intake, Rinseback and Flushes 600 / 600 Output: Urine 0 / 0 Stool 100 / 100 Emesis 300 / 300 Total Dialysis (HD) Output 1600 / 1600 Other: Weight 56.5 kg Blood Glucose* 221 151 115 Hemodialysis Net Fluid Removed 1000 (mL) Patient Weight 09/19/17 23:59 Weight 56.5 kg - General Appearance General appearance: Present: well-developed, chronically ill, frail EENT: Present: ATNC Neck: Present: supple Additional Comments: Patient with left chest discomfort reproducible with light palpation. Dialysis Vascular Access: Arteriovenous Fistula - Lab 09/19/17 05:05 09/19/17 05:05 Most recent lab results Calcium 7.6 mg/dL (8.6-10.8) L 09/19/17 05:05 Phosphorus 8.8 mg/dL (2.3-4.7) H 09/19/17 05:05 Magnesium 2.0 mg/dL (1.6-2.6) 09/17/17 04:56 Consult Discharge Plan - Plan Referrals: Na Johansen, DBAS [Primary Care Provider] - 09/30/17 9:45 am ( ) Prescriptions: Acetylcysteine 10% 2 ml IH [id number] #30 inhsol Ipratropium/Albuterol Neb [Duoneb] 3 ml IH [id number] #30 inhsol Cefdinir [Omnicef] 300 mg PO BID 10 Days #20 capsule GuaiFENesin ER [Mucinex] 600 mg PO BID 5 Days #10 tbbp.12hr Nicotine Patch [Nicoderm] 21 mg TD DAILY #30 patch.td24
--- NOTE | 2017-09-19 16:42 | Internal Med Progress Note ---
Date of Encounter: 09/19/17 Time of Encounter: 15:30 - Assessment and plan (1) Nausea and vomiting Current Visit: Yes Status: Acute Assessment and plan: unclear etiology; no SBO on imaging; continue supportive care with PRN Zofran and Phenergan; cannot complete gastric emptying study due to being on antiemetics and analgesics; GI consulted, pending evaluation; Severe abdominal pain could be related to ?previous herniorrhaphy and mesh placement; case d/w Surgery, will f/up; Qualifiers: Vomiting type: unspecified Vomiting Intractability: non-intractable Qualified Code(s): R11.2 - Nausea with vomiting, unspecified (2) Small bowel obstruction Current Visit: Yes Status: Ruled-out (3) Colitis Current Visit: Yes Status: Acute Assessment and plan: Patient initially was admitted with colitis at splenic flexure and completed a course of IV Flagyl and ciprofloxacin. Surgery was consulted at the time and patient underwent multiple CT scans of her abdomen, recommended no surgical intervention. (4) Hypokalemia Current Visit: Yes Status: Resolved (5) COPD (chronic obstructive pulmonary disease) Current Visit: Yes Status: Chronic Assessment and plan: Patient had mild acute exacerbation of COPD during this admission. Resolved now. Continue bronchodilators and supplemental oxygen as needed. Completed a course of IV antibiotics for possible pneumonia/acute bronchitis. Received enteral steroids for about 2 weeks. Qualifiers: COPD type: emphysema Emphysema type: panlobular Qualified Code(s): J43.1 - Panlobular emphysema (6) Anemia in CKD (chronic kidney disease) Current Visit: Yes Status: Chronic Assessment and plan: Hb stable around 7.1; receives Epogen at HD; Qualifiers: Chronic kidney disease stage: on chronic dialysis Qualified Code(s): N18.6 - End stage renal disease; D63.1 - Anemia in chronic kidney disease; D63.1 - Anemia in chronic kidney disease; Z99.2 - Dependence on renal dialysis; Z99.2 - Dependence on renal dialysis; Z99.2 - Dependence on renal dialysis; Z99.2 - Dependence on renal dialysis (7) Ileostomy in place Current Visit: Yes Status: Chronic Assessment and plan: has chronic diarrhea related to short bowel syndrome; (8) ESRD (end stage renal disease) on dialysis Current Visit: Yes Status: Chronic Assessment and plan: Nephrology on board for hemodialysis needs. Receiving regular HD sessions; (9) Tobacco abuse Current Visit: Yes Status: Chronic (10) Leg pain Current Visit: Yes Status: Chronic Qualifiers: Laterality: bilateral Qualified Code(s): M79.604 - Pain in right leg; M79.605 - Pain in left leg; M79.605 - Pain in left leg (11) Chronic diarrhea Current Visit: Yes Status: Chronic (12) Hypothyroid Current Visit: Yes Status: Chronic Assessment and plan: Continue Synthroid. Qualifiers: Hypothyroidism type: unspecified Qualified Code(s): E03.9 - Hypothyroidism , unspecified (13) Atrial fibrillation Current Visit: Yes Status: Chronic Assessment and plan: Currently rate controlled - Continue beta lex, calcium channel lex; Not on long-term anticoagulation due to risk of falls and history of bleeds Qualifiers: Atrial fibrillation type: chronic Qualified Code(s): I48.2 - Chronic atrial fibrillation - Subjective Interval history: Continues to report right lower abdominal pain, nausea and dark green colored emesis. Intermittently crying in pain. Nasogastric tube on low intermittent wall suction. No fever, chills. Also reports intermittent chest pain. Received hemodialysis today. - Constitutional Vitals: Temp Pulse Resp BP Pulse Ox 98.3 F 83 18 132/57 97 09/19/17 15:21 09/19/17 15:21 09/19/17 15:38 09/19/17 15:21 09/19/17 15:38 General appearance: Present: cachectic, mild distress, A&O X 3, underweight, answers questions appropriately - Respiratory Respiratory exam: Present: CTAB (coarse breath sounds B/L). Absent: accessory muscle use, rales, rhonchi, wheezes - Cardiovascular Cardiovascular exam: Present: RRR, +S1, +S2. Absent: diastolic murmur, gallop, rubs, systolic murmur - GI/Abdominal GI/Abdominal exam: Present: normal bowel sounds, soft (tenderness to deep palpation in RLQ, right inguinal area), no peritoneal signs. Absent: distended , tenderness - Extremities Exam Extremities exam: Present: full ROM, warm, radial pulses palpable and symmetrical. Absent: calf tenderness, cyanotic, pedal edema - Neurological Exam Neurological exam: Present: CN II-XII intact, oriented X3, no focal deficits. Absent: pronater drift, facial droop, speech deficit Internal Medicine: Result - Labs CBC & Chem 7: 09/19/17 05:05 09/19/17 05:05 Labs: Short CBC 09/19/17 Range/Units 05:05 WBC 6.9 (4.3-11.1) K/mcL Hgb 7.1 L (11.5-15.4) g/dL Hct 22.9 L (35.3-44.9) % Plt Count 114 L (140-400) K/mcL Neutrophils # 5.6 (1.6-8.9) K/mcL BMP 09/19/17 05:05 Sodium 144 Potassium 4.0 Chloride 90 L Carbon Dioxide 40 H* BUN 42 H Creatinine 5.57 H Glucose 87 Calcium 7.6 L Liver Function 09/19/17 Range/Units 05:05 Albumin 2.4 L (3.5-5.0) g/dL - ABG Interpretation ABG results: PT/INR, D-dimer PT 13.7 Seconds (9.4-12.1) H 09/08/17 03:55 - Impressions Impressions KUB X-Ray 09/18/17 18:07 IMPRESSION: NG tube in place with tip and side-port in fundus of stomach D/ / Rob Williamson MD / Rob Williamson MD Interpreting Provider: Rob Williamson MD Consult Discharge Plan - Plan Referrals: Na Johansen, [employer] ESTATE ACCOUNT EXECUTIVE [Primary Care Provider] - 09/30/17 9:45 am ( ) Prescriptions: Acetylcysteine 10% 2 ml IH [id number] #30 inhsol Ipratropium/Albuterol Neb [Duoneb] 3 ml IH [id number] #30 inhsol Cefdinir [Omnicef] 300 mg PO BID 10 Days #20 capsule GuaiFENesin ER [Mucinex] 600 mg PO BID 5 Days #10 tbbp.12hr Nicotine Patch [Nicoderm] 21 mg TD DAILY #30 patch.td24
--- NOTE | 2017-09-19 17:39 | General Surgery Progress Note ---
Date of Encounter: 09/19/17 Time of Encounter: 17:36 - Assessment and Plan (1) Abdominal pain Current Visit: Yes Status: Chronic patient has a history of multiple ventral hernia repairs, prior urostomy and colostomy from what sounds like neurogenic etiology per the patient; SBFT does not demonstrate SBO, plus patient is having normal bowel function. She is non peritoneal. It is difficult to pinpoint a definitive etiology, but the patient feels as if it is a hernia, as she has had pain from hernias before. - NPO _IVF - GI follow up - CT scan; - no acute surgery Qualifiers: Abdominal location: right lower quadrant Qualified Code(s): R10.31 - Right lower quadrant pain Subjective Patient reports: still having pain, flatus, bowel movement, nausea, vomiting Objective Vital Signs - Last 8 Hours Temp Pulse Resp BP Pulse Ox 09/19/17 15:38 18 97 09/19/17 15:21 98.3 F 83 16 132/57 97 09/19/17 12:32 97.2 F L 17 121/55 09/19/17 11:53 97.2 F L 17 121/55 09/19/17 11:30 119/55 09/19/17 11:15 94/40 09/19/17 10:45 109/49 09/19/17 10:15 104/48 09/19/17 09:45 104/53 Intake and Output 09/19/17 09/19/17 09/19/17 07:59 15:59 23:59 Intake Total 600 / 600 Output Total 1600 / 1600 Balance -1000 / -1000 Intake: Oral 0 / 0 Intake, Rinseback and Flushes 600 / 600 Output: Urine 0 / 0 Total Dialysis (HD) Output 1600 / 1600 Other: Meal Lunch Percent of Meal Consumed 0% Weight 56.5 kg Blood Glucose* 151 115 123 Hemodialysis Net Fluid Removed 1000 (mL) Patient Weight 09/19/17 23:59 Weight 56.5 kg - General physical appearance no distress, cachectic - ENT normocephalic - Respiratory normal expansion, normal respiratory effort - Cardiovascular Cardiovascular exam: Present: RRR - Abdomen Abdomen: Present: soft, tender Abdominal Tenderness: RLQ - Rectum other (has colostomy: pink viable functioning) - Neurologic CN 2-12 grossly intact - Labs 09/19/17 05:05 09/19/17 05:05 Diabetes panel 09/19/17 Range/Units 05:05 Sodium 144 (136-145) mEq/L Potassium 4.0 (3.5-4.5) mEq/L Chloride 90 L (98-109) mEq/L Carbon Dioxide 40 H* (19-29) mEq/L BUN 42 H (7-20) mg/dL Creatinine 5.57 H (0.57-1.11) mg/dL Glucose 87 (70-99) mg/dL Calcium 7.6 L (8.6-10.8) mg/dL Albumin 2.4 L (3.5-5.0) g/dL Calcium panel 09/19/17 Range/Units 05:05 Calcium 7.6 L (8.6-10.8) mg/dL Phosphorus 8.8 H (2.3-4.7) mg/dL Albumin 2.4 L (3.5-5.0) g/dL Pituitary panel 09/19/17 Range/Units 05:05 Sodium 144 (136-145) mEq/L Potassium 4.0 (3.5-4.5) mEq/L Chloride 90 L (98-109) mEq/L Carbon Dioxide 40 H* (19-29) mEq/L BUN 42 H (7-20) mg/dL Creatinine 5.57 H (0.57-1.11) mg/dL Glucose 87 (70-99) mg/dL Calcium 7.6 L (8.6-10.8) mg/dL Adrenal panel 09/19/17 Range/Units 05:05 Sodium 144 (136-145) mEq/L Potassium 4.0 (3.5-4.5) mEq/L Chloride 90 L (98-109) mEq/L Carbon Dioxide 40 H* (19-29) mEq/L BUN 42 H (7-20) mg/dL Creatinine 5.57 H (0.57-1.11) mg/dL Glucose 87 (70-99) mg/dL Calcium 7.6 L (8.6-10.8) mg/dL Albumin 2.4 L (3.5-5.0) g/dL Consult Discharge Plan - Plan Referrals: Na Johansen, TYLER [Primary Care Provider] - 09/30/17 9:45 am ( ) Prescriptions: Acetylcysteine 10% 2 ml IH [id number] #30 inhsol Ipratropium/Albuterol Neb [Duoneb] 3 ml IH [id number] #30 inhsol Cefdinir [Omnicef] 300 mg PO BID 10 Days #20 capsule GuaiFENesin ER [Mucinex] 600 mg PO BID 5 Days #10 tbbp.12hr Nicotine Patch [Nicoderm] 21 mg TD DAILY #30 patch.td24
[2017-09-19] MEDS: D5% in 0.45% NACL 1,000 ML IVC SCH (18:23)
[2017-09-19] MEDS: Famotidine 20 MG TABLET PO SCH (20:29)
[2017-09-20] MEDS: Ondansetron 4 MG/2 ML VIAL IVP PRN ×3 (02:15→21:35)
[2017-09-20] MEDS: Acetylcysteine 10% 2 ML INHSOL IH SCH ×2 (04:19→07:29)
[2017-09-20] MEDS: Ipratropium/Albuterol Neb 3 ML IH SCH ×6 (04:19→23:19)
[2017-09-20 04:46] LABS: Hemoglobin 7.2 g/dL (11.5-15.4); Immature Granulocytes % 0.4 % (0-4)
[2017-09-20 04:48] LABS: Eosinophils # 0.1 K/mcL (0.0-0.6); Eosinophils % 1.2 %; Hematocrit 23.6 % (35.3-44.9); Lymphocytes # 0.8 K/mcL (0.6-4.6); Lymphocytes % 16.2 %; Mean Corpuscular HGB Conc 30.5 g/dL (31.6-35.5); Mean Corpuscular Hemoglobin 29.5 pg (28.0-33.3); Mean Corpuscular Volume 96.7 fL (83.0-100.0); Mean Platelet Volume 11.2 fL (9.4-12.4); Monocytes # 0.2 K/mcL (0.0-1.3); Red Blood Count 2.44 M/mcL (3.82-4.97); Red Cell Distribution Width 16.9 % (11.5-14.5); Segmented Neutrophils % 78.2 %
[2017-09-20 05:02] LABS: Platelet Count 96 K/mcL (140-400)
[2017-09-20 05:03] LABS: Albumin 2.4 g/dL (3.5-5.0); Albumin/Globulin Ratio 0.8 (1.1-2.2); Bilirubin,Direct 0.2 mg/dL (0.0-0.5); Bilirubin,Indirect 0.1 mg/dL (0.0-1.2); Bilirubin,Total 0.3 mg/dL (0.2-1.2); Calcium 8.1 mg/dL (8.6-10.8); Globulin 3.1 g/dL (2.4-3.5); Magnesium 1.6 mg/dL (1.6-2.6); Phosphorous 4.8 mg/dL (2.3-4.7); Potassium 3.8 mEq/L (3.5-4.5); Total Protein 5.5 g/dL (6.0-8.3)
[2017-09-20] MEDS: *HR* Heparin 5,000 UNIT/ML VIAL SQ SCH ×3 (06:38→21:36)
[2017-09-20] MEDS: *HR* OxyCODONE Immed Rel 5 MG TABLET PO PRN ×3 (06:43→21:37)
[2017-09-20] MEDS: Budesonide/Formoterol 80/4.5 MDI IH SCH ×2 (07:29→19:59)
--- NOTE | 2017-09-20 08:18 | Nephrology Progress Note ---
Date of Encounter: 09/20/17 Time of Encounter: 08:17 - Assessment and Plan (1) ESRD (end stage renal disease) on dialysis Current Visit: Yes Status: Chronic HD MWF. Renal vitamins. Renal dose medications. Renal diet. (2) Frail elderly Current Visit: No Status: Acute Per primary team. (3) Hyperphosphatemia Current Visit: No Status: Acute Started phosphate binder, follow phosphorus. PTH elevated and vitamin D normal. Renal diet. (4) Hypocalcemia Current Visit: No Status: Acute Improving. Will place on higher calcium bath with dialysis. Check ionized calcium and replace as needed. (5) Hyperparathyroidism Current Visit: Yes Status: Acute Likely physiologic response to hypocalcemia. Correct calcium and repeat. Subjective Principal diagnosis: ESRD Interval history: Patient seen. She feels better. She is not complaining of the left-sided chest wall pain today. Objective - Vital Signs Vital signs: Vital Signs Temp Pulse Resp BP Pulse Ox 09/20/17 07:31 16 97 09/20/17 04:24 98.1 F 88 16 143/65 97 09/20/17 04:19 17 100 09/20/17 01:17 98.0 F 74 16 107/40 94 09/19/17 23:24 16 100 09/19/17 20:35 16 91 09/19/17 20:16 98.7 F 72 16 132/48 92 09/19/17 15:38 18 97 09/19/17 15:21 98.3 F 83 16 132/57 97 09/19/17 12:32 97.2 F L 17 121/55 09/19/17 11:53 97.2 F L 17 121/55 09/19/17 11:30 119/55 09/19/17 11:15 94/40 09/19/17 10:45 109/49 09/19/17 10:15 104/48 09/19/17 09:45 104/53 09/19/17 09:15 103/49 09/19/17 09:00 101/49 09/19/17 08:45 121/50 Intake and Output 09/19/17 09/20/17 09/20/17 23:59 07:59 15:59 Intake Total 1000 / 1000 Output Total 200 / 200 950 / 950 Balance 800 / 800 -950 / -950 Intake: IV Fluids 1000 / 1000 D5% And 0.45% Nacl 1000 Ml Bag 1000 / 1000 1,000 ML @ 40 mls/hr IVC .Q24H [facility] Rx#:[id number] Oral 0 / 0 Output: Urine 0 / 0 Gastric Tube Lavage Amount 200 / 200 Right Nare 200 / 200 Gastric Drainage 950 / 950 Other: Meal NPO Weight 50.167 kg Blood Glucose* 81 Patient Weight 09/20/17 23:59 Weight 50.167 kg - General Appearance General appearance: Present: well-developed, chronically ill, frail EENT: Present: ATNC Neck: Present: supple Respiratory: Present: course breath sounds Cardiology: Present: no edema, regular rate Neurologic: Present: alert and oriented x3 - Lab 09/20/17 04:30 09/20/17 04:30 Most recent lab results Calcium 8.1 mg/dL (8.6-10.8) L 09/20/17 04:30 Phosphorus 4.8 mg/dL (2.3-4.7) H 09/20/17 04:30 Magnesium 1.6 mg/dL (1.6-2.6) 09/20/17 04:30 Consult Discharge Plan - Plan Referrals: Na Johansen, FIELD PRODUCER [Primary Care Provider] - 09/30/17 9:45 am ( ) Prescriptions: Acetylcysteine 10% 2 ml IH [id number] #30 inhsol Ipratropium/Albuterol Neb [Duoneb] 3 ml IH [id number] #30 inhsol Cefdinir [Omnicef] 300 mg PO BID 10 Days #20 capsule GuaiFENesin ER [Mucinex] 600 mg PO BID 5 Days #10 tbbp.12hr Nicotine Patch [Nicoderm] 21 mg TD DAILY #30 patch.td24
[2017-09-20] MEDS: Lactobacillus 1 EACH CAP.SPRINK PO SCH ×2 (08:55→21:36)
[2017-09-20] MEDS: Renal Vitamin 1 MG CAPSULE PO SCH (08:55)
[2017-09-20] MEDS: Diltiazem CD (24hr) 120 MG CAPSULE PO SCH (08:55)
[2017-09-20] MEDS: Cholecalciferol (D-3) 1,000 UNIT TABLET PO SCH (08:56)
[2017-09-20] MEDS: Nicotine 21 MG PATCH.TD24 TD SCH (08:56)
[2017-09-20] MEDS: Calcium Acetate 667 MG CAPSULE PO SCH ×3 (08:56→17:17)
[2017-09-20] MEDS: Pantoprazole 40 MG VIAL IVP SCH ×2 (10:06→17:36)
--- NOTE | 2017-09-20 11:51 | Internal Med Progress Note ---
Date of Encounter: 09/20/17 Time of Encounter: 11:15 - Assessment and plan (1) Nausea and vomiting Current Visit: Yes Status: Acute Assessment and plan: unclear etiology; no SBO on imaging; continue supportive care with PRN Zofran and Phenergan; bowel rest and gentle IV hydration. Pain control with when necessary oral oxycodone. cannot complete gastric emptying study due to being on antiemetics and analgesics; GI consulted, pending evaluation; Surgery follow-up appreciated, no acute surgical intervention, unclear etiology of abdominal pain and persistent nausea and vomiting. Repeat CT abdomen/pelvis. Patient would probably benefit from Palliative care; she wants aggressive care and would not want to if she can be saved. No living will in place; will d/ w her son; Qualifiers: Vomiting type: unspecified Vomiting Intractability: non-intractable Qualified Code(s): R11.2 - Nausea with vomiting, unspecified (2) Small bowel obstruction Current Visit: Yes Status: Ruled-out Assessment and plan: CT abdomen/pelvis showed dilated loops of small bowel, s/o- ileus. Surgery consulted, SBFT showed no e/o- obstruction, no further surgical intervention at this time. (3) Colitis Current Visit: Yes Status: Acute Assessment and plan: Patient initially was admitted with colitis at splenic flexure and completed a course of IV Flagyl and ciprofloxacin. Surgery was consulted at the time and patient underwent multiple CT scans of her abdomen, recommended no surgical intervention. (4) Hypokalemia Current Visit: Yes Status: Resolved (5) COPD (chronic obstructive pulmonary disease) Current Visit: Yes Status: Chronic Assessment and plan: Patient had mild acute exacerbation of COPD during this admission. Resolved now. Continue bronchodilators and supplemental oxygen as needed. Completed a course of IV antibiotics for possible pneumonia/acute bronchitis. Received enteral steroids for about [address] abdomen/pelvis shows tree-in-bud opacities and left lower lobe opacity, patient completed a two-week course of multiple IV antibiotics, blood cultures remained negative. Qualifiers: COPD type: emphysema Emphysema type: panlobular Qualified Code(s): J43.1 - Panlobular emphysema (6) Anemia in CKD (chronic kidney disease) Current Visit: Yes Status: Chronic Assessment and plan: Hb stable around 7.1; receives Epogen at HD; Qualifiers: Chronic kidney disease stage: on chronic dialysis Qualified Code(s): N18.6 - End stage renal disease; D63.1 - Anemia in chronic kidney disease; D63.1 - Anemia in chronic kidney disease; Z99.2 - Dependence on renal dialysis; Z99.2 - Dependence on renal dialysis; Z99.2 - Dependence on renal dialysis; Z99.2 - Dependence on renal dialysis (7) Ileostomy in place Current Visit: Yes Status: Chronic (8) ESRD (end stage renal disease) on dialysis Current Visit: Yes Status: Chronic Assessment and plan: Nephrology on board for hemodialysis needs. Receiving regular HD sessions; (9) Tobacco abuse Current Visit: Yes Status: Chronic Assessment and plan: Patient reports quitting just before this admission Nicoderm patch (10) Leg pain Current Visit: Yes Status: Chronic Qualifiers: Laterality: bilateral Qualified Code(s): M79.604 - Pain in right leg; M79.605 - Pain in left leg; M79.605 - Pain in left leg (11) Chronic diarrhea Current Visit: Yes Status: Chronic (12) Hypothyroid Current Visit: Yes Status: Chronic Qualifiers: Hypothyroidism type: unspecified Qualified Code(s): E03.9 - Hypothyroidism , unspecified (13) Atrial fibrillation Current Visit: Yes Status: Chronic Assessment and plan: Currently rate controlled - Continue beta lex, calcium channel lex; Not on long-term anticoagulation due to risk of falls and history of bleeds Qualifiers: Atrial fibrillation type: chronic Qualified Code(s): I48.2 - Chronic atrial fibrillation - Subjective Interval history: Reports feeling better than yesterday; has epigastric and lower abdominal pain to palpation; NG tube noted to have about 900cc output yesterday, currently draining dark greenish fluid; intermittent moist cough; no dyspnea, palpitations ; - Constitutional Vitals: Temp Pulse Resp BP Pulse Ox 98.5 F 73 16 105/63 90 09/20/17 11:33 09/20/17 11:33 09/20/17 11:33 09/20/17 11:33 09/20/17 11:33 General appearance: Present: cachectic, A&O X 3, underweight, answers questions appropriately - Respiratory Respiratory exam: Present: CTAB (coarse breath sounds B/L). Absent: accessory muscle use, rales, rhonchi, wheezes - Cardiovascular Cardiovascular exam: Present: RRR, +S1, +S2. Absent: diastolic murmur, gallop, rubs, systolic murmur - GI/Abdominal GI/Abdominal exam: Present: normal bowel sounds, soft (tenderness to palpation in epigastrium, LLQ and suprapubic areas), no peritoneal signs. Absent: distended, tenderness Additional comments: Ileostomy with stool output - Extremities Exam Extremities exam: Present: full ROM, warm, radial pulses palpable and symmetrical. Absent: calf tenderness, cyanotic, pedal edema - Neurological Exam Neurological exam: Present: CN II-XII intact, oriented X3, no focal deficits. Absent: pronater drift, facial droop, speech deficit Internal Medicine: Result - Labs CBC & Chem 7: 09/21/17 05:04 09/21/17 05:04 Labs: Short CBC 09/20/17 Range/Units 04:30 WBC 5.1 (4.3-11.1) K/mcL Hgb 7.2 L (11.5-15.4) g/dL Hct 23.6 L (35.3-44.9) % Plt Count 96 L (140-400) K/mcL Neutrophils # 4.0 (1.6-8.9) K/mcL BMP 09/20/17 04:30 Sodium 137 Potassium 3.8 Chloride 96 L Carbon Dioxide 32 H BUN 16 D Creatinine 3.32 H Glucose 71 Calcium 8.1 L Liver Function 09/20/17 Range/Units 04:30 Total Bilirubin 0.3 (0.2-1.2) mg/dL Direct Bilirubin 0.2 (0.0-0.5) mg/dL AST 11 (5-34) Units/L ALT 8 (0-55) Units/L Alkaline Phosphatase 46 (38-126) Units/L Albumin 2.4 L (3.5-5.0) g/dL - ABG Interpretation ABG results: PT/INR, D-dimer PT 13.7 Seconds (9.4-12.1) H 09/08/17 03:55 - Impressions Impressions Abdomen/Pelvis CT 09/19/17 20:30 IMPRESSION: Suspected wall edema and increased mucosal enhancement of the gastric antrum. Correlation for gastritis is recommended. There is questionable focal ulceration of the involved anterior gastric wall. Endoscopy could be performed if clinically warranted. Wall thickening of the upper descending colon. Correlation for infectious or inflammatory colitis is recommended. Interval increased medial right lower lobe bronchial wall thickening, tree-in-bud nodularity and consolidation, likely infectious airways disease. Stable small to moderate left pleural effusion and left lower lobe consolidation. D/ /19/2017 22:03:15 Dianne Araujo Cha, MD / [place] Interpreting Provider: Dianne Araujo Cha, MD Consult Discharge Plan - Plan Referrals: Na Johansen CNP [Primary Care Provider] - 09/30/17 9:45 am ( ) Prescriptions: Acetylcysteine 10% 2 ml IH [id number] #30 inhsol Ipratropium/Albuterol Neb [Duoneb] 3 ml IH [id number] #30 inhsol Cefdinir [Omnicef] 300 mg PO BID 10 Days #20 capsule GuaiFENesin ER [Mucinex] 600 mg PO BID 5 Days #10 tbbp.12hr Nicotine Patch [Nicoderm] 21 mg TD DAILY #30 patch.td24
[2017-09-20] MEDS ORDERED: D10% in Water 500 ML IVC PRN (12:52)
[2017-09-20] MEDS ORDERED: Clinimix 5%-20% SOLUTION 2,000 ML with MVI, adult with vitamin K 10 ML, Sodium Acetat... IVC SCH (17:00)
[2017-09-20] MEDS ORDERED: *HR* Dextrose 50 % in Water (Syg) 50 ML SYRINGE IVP PRN (18:36)
[2017-09-20] MEDS ORDERED: Dextrose Gel 15 GM PO PRN ×2 (18:36)
[2017-09-20] MEDS ORDERED: D5% in Water 1,000 ML IVC PRN (18:36)
[2017-09-20] MEDS: Insulin LISPRO 300 UNITS/3 ML VIAL SQ SCH (19:27)
[2017-09-20] MEDS: Famotidine 20 MG TABLET PO SCH (21:36)
[2017-09-21] MEDS: Insulin LISPRO 300 UNITS/3 ML VIAL SQ SCH ×7 (03:19→22:47)
[2017-09-21] MEDS: Ipratropium/Albuterol Neb 3 ML IH SCH ×6 (03:54→23:35)
[2017-09-21] MEDS: Clinimix 5%-20% SOLUTION 2,000 ML with MVI, adult with vitamin K 10 ML, Sodium Acetat... IVC SCH ×2 (04:52→17:42)
[2017-09-21 05:19] LABS: Basophils % 0.2 %; Mean Corpuscular Volume 95.2 fL (83.0-100.0)
[2017-09-21 05:20] LABS: Eosinophils # 0.1 K/mcL (0.0-0.6); Eosinophils % 1.6 %; Hemoglobin 6.8 g/dL (11.5-15.4); Immature Granulocytes % 0.6 % (0-4); Immature Platelets 3.8 % (1.1-6.1); Lymphocytes # 0.8 K/mcL (0.6-4.6); Lymphocytes % 16.1 %; Mean Corpuscular HGB Conc 30.9 g/dL (31.6-35.5); Mean Corpuscular Hemoglobin 29.4 pg (28.0-33.3); Mean Platelet Volume 11.5 fL (9.4-12.4); Monocytes # 0.2 K/mcL (0.0-1.3); Monocytes % 3.9 %; Neutrophils # 3.8 K/mcL (1.6-8.9); Red Blood Count 2.31 M/mcL (3.82-4.97); Red Cell Distribution Width 16.7 % (11.5-14.5); Segmented Neutrophils % 77.6 %
[2017-09-21 05:23] LABS: Platelet Count 86 K/mcL (140-400)
[2017-09-21 06:03] LABS: Potassium 3.5 mEq/L (3.5-4.5)
[2017-09-21 06:04] LABS: Albumin 2.3 g/dL (3.5-5.0); Magnesium 1.9 mg/dL (1.6-2.6); Phosphorous 4.8 mg/dL (2.3-4.7)
[2017-09-21] MEDS: Pantoprazole 40 MG VIAL IVP SCH ×2 (06:08→17:44)
[2017-09-21] MEDS: Budesonide/Formoterol 80/4.5 MDI IH SCH ×2 (07:54→20:35)
[2017-09-21] MEDS: Calcium Acetate 667 MG CAPSULE PO SCH ×3 (08:00→17:20)
--- NOTE | 2017-09-21 09:44 | Nephrology Progress Note ---
Date of Encounter: 09/21/17 Time of Encounter: 09:43 - Assessment and Plan (1) ESRD (end stage renal disease) on dialysis Current Visit: Yes Status: Chronic HD MWF. Renal vitamins. Renal dose medications. Renal diet. (2) Anemia Current Visit: No Status: Chronic Patient with progressive anemia. Discussed with Dr. Hoover. Agree with transfusion. Patient with clinical suspicion of bowel obstruction. Evaluated by surgery- no bowel obstruction. CT scan with probable ulcer and gastritis and colitis. Awaiting GI evaluation Continue PPI. Continue NPO status per surgery. Qualifiers: Anemia type: unspecified type Qualified Code(s): D64.9 - Anemia, unspecified (3) Frail elderly Current Visit: No Status: Acute Per primary team. (4) Hyperphosphatemia Current Visit: No Status: Acute Improved. PTH elevated and vitamin D normal. Renal diet. (5) Hypocalcemia Current Visit: No Status: Acute Improving. Will place on higher calcium bath with dialysis. Check ionized calcium and replace as needed. (6) Hyperparathyroidism Current Visit: Yes Status: Acute Likely physiologic response to hypocalcemia. Correct calcium and repeat. Subjective Principal diagnosis: ESRD Interval history: Patient seen. She is asleep. Did not awaken with exam. Objective - Vital Signs Vital signs: Vital Signs Temp Pulse Resp BP Pulse Ox 09/21/17 07:54 18 95 09/21/17 06:48 98.4 F 79 16 131/61 99 09/21/17 03:55 16 99 09/21/17 03:44 75 16 110/52 99 09/21/17 00:46 98.3 F 75 16 119/50 99 09/20/17 23:20 18 100 09/20/17 20:15 98.8 F 84 16 142/56 100 09/20/17 20:03 18 100 09/20/17 16:11 98.8 F 82 17 134/62 98 09/20/17 15:17 19 99 09/20/17 11:33 98.5 F 73 16 105/63 90 09/20/17 11:26 16 100 Intake and Output 09/20/17 09/21/17 09/21/17 23:59 07:59 15:59 Intake Total 180 / 180 698 / 698 Output Total 250 / 250 Balance 180 / 180 448 / 448 Intake: IV Fluids 250 / 250 Intralipid 20% 250 ML @ 21 mls/ 250 / 250 hr IVPB DAILY@1700 [facility] Rx#: [id number] Oral 0 / 0 Free Water 180 / 180 Infusion Intake 448 / 448 Output: Stool 50 / 50 Urostomy 50 / 50 Gastric Drainage 150 / 150 Other: Stool Size Moderate Stool Consistency liquid Stool Characteristics Normal for Patient Stool Color Green # Voids 1 Weight 50.802 kg Blood Glucose* 194 130 Patient Weight 09/21/17 23:59 Weight 50.802 kg - General Appearance General appearance: Present: well-developed, chronically ill, frail Cardiology: Present: no edema Integumentary: Present: warm and dry - Lab 09/21/17 05:04 09/21/17 05:04 Most recent lab results Calcium 8.0 mg/dL (8.6-10.8) L 09/21/17 05:04 Phosphorus 4.8 mg/dL (2.3-4.7) H 09/21/17 05:04 Magnesium 1.9 mg/dL (1.6-2.6) 09/21/17 05:04 Consult Discharge Plan - Plan Referrals: Na Johansen, TYLER [Primary Care Provider] - 09/30/17 9:45 am ( ) Prescriptions: Acetylcysteine 10% 2 ml IH [id number] #30 inhsol Ipratropium/Albuterol Neb [Duoneb] 3 ml IH [id number] #30 inhsol Cefdinir [Omnicef] 300 mg PO BID 10 Days #20 capsule GuaiFENesin ER [Mucinex] 600 mg PO BID 5 Days #10 tbbp.12hr Nicotine Patch [Nicoderm] 21 mg TD DAILY #30 patch.td24
[2017-09-21] MEDS: Diltiazem CD (24hr) 120 MG CAPSULE PO SCH (10:02)
[2017-09-21] MEDS: Lactobacillus 1 EACH CAP.SPRINK PO SCH ×2 (10:02→22:29)
[2017-09-21] MEDS: Renal Vitamin 1 MG CAPSULE PO SCH (10:02)
[2017-09-21] MEDS: Cholecalciferol (D-3) 1,000 UNIT TABLET PO SCH (10:02)
[2017-09-21] MEDS: Nicotine 21 MG PATCH.TD24 TD SCH (10:03)
--- NOTE | 2017-09-21 10:20 | Internal Med Progress Note ---
Date of Encounter: 09/21/17 Time of Encounter: 10:20 - Assessment and plan (1) Nausea and vomiting Current Visit: Yes Status: Acute Assessment and plan: unclear etiology; no SBO on imaging; continue supportive care with PRN Zofran and Phenergan; Pain control with when necessary oral oxycodone. bowel rest. Has been started on TPN. cannot complete gastric emptying study due to being on antiemetics and analgesics; GI consulted, pending evaluation; Surgery follow-up appreciated, no acute surgical intervention; Repeat CT abdomen /pelvis shows anterior wall gastric ulcer. She likely needs EGD; started on IV Protonix but noted to have thrombocytopenia, monitor closely; Will consult Palliative care in am; Qualifiers: Vomiting type: unspecified Vomiting Intractability: non-intractable Qualified Code(s): R11.2 - Nausea with vomiting, unspecified (2) Small bowel obstruction Current Visit: Yes Status: Ruled-out (3) Colitis Current Visit: Yes Status: Acute Assessment and plan: Patient initially was admitted with colitis at splenic flexure and completed a course of IV Flagyl and ciprofloxacin. Surgery was consulted at the time and patient underwent multiple CT scans of her abdomen, recommended no surgical intervention. (4) Hypokalemia Current Visit: Yes Status: Resolved (5) COPD (chronic obstructive pulmonary disease) Current Visit: Yes Status: Chronic Assessment and plan: Patient had mild acute exacerbation of COPD during this admission. Resolved now. Continue bronchodilators and supplemental oxygen as needed. Completed a course of IV antibiotics for possible pneumonia/acute bronchitis. Received enteral steroids for about [address] abdomen/pelvis shows tree-in-bud opacities and left lower lobe opacity, patient completed a two-week course of multiple IV antibiotics, blood cultures remained negative. Qualifiers: COPD type: emphysema Emphysema type: panlobular Qualified Code(s): J43.1 - Panlobular emphysema (6) Anemia in CKD (chronic kidney disease) Current Visit: Yes Status: Chronic Assessment and plan: Noted to have acute drop in Hb to 6.8 along with thrombocytopenia; hold subcutaneous heparin. Patient needs IV Protonix at this time, monitor platelet count closely. We will transfuse 2 units PRBC and continue to monitor hemoglobin. No signs of active bleeding. receives Epogen at HD; Qualifiers: Chronic kidney disease stage: on chronic dialysis Qualified Code(s): N18.6 - End stage renal disease; D63.1 - Anemia in chronic kidney disease; D63.1 - Anemia in chronic kidney disease; Z99.2 - Dependence on renal dialysis; Z99.2 - Dependence on renal dialysis; Z99.2 - Dependence on renal dialysis; Z99.2 - Dependence on renal dialysis (7) Ileostomy in place Current Visit: Yes Status: Chronic (8) ESRD (end stage renal disease) on dialysis Current Visit: Yes Status: Chronic Assessment and plan: Nephrology on board for hemodialysis needs. Receiving regular HD sessions; (9) Tobacco abuse Current Visit: Yes Status: Chronic (10) Leg pain Current Visit: Yes Status: Chronic Qualifiers: Laterality: bilateral Qualified Code(s): M79.604 - Pain in right leg; M79.605 - Pain in left leg; M79.605 - Pain in left leg (11) Chronic diarrhea Current Visit: Yes Status: Chronic (12) Hypothyroid Current Visit: Yes Status: Chronic Qualifiers: Hypothyroidism type: unspecified Qualified Code(s): E03.9 - Hypothyroidism , unspecified (13) Atrial fibrillation Current Visit: Yes Status: Chronic Assessment and plan: Currently rate controlled - Continue beta lex, calcium channel lex; Not on long-term anticoagulation due to risk of falls and history of bleeds Qualifiers: Atrial fibrillation type: chronic Qualified Code(s): I48.2 - Chronic atrial fibrillation - Subjective Interval history: Noted to be confused since last evening; occasionally cries out in pain on palpating abdomen; NG tube drainage decreased; noted to be having moist cough; - Constitutional Vitals: Temp Pulse Resp BP Pulse Ox 98.4 F 79 18 131/61 95 09/21/17 06:48 09/21/17 06:48 09/21/17 07:54 09/21/17 06:48 09/21/17 07:54 General appearance: Present: cachectic, A&O X 1, underweight. Absent: answers questions appropriately - Respiratory Respiratory exam: Present: CTAB (coarse breath sounds B/L). Absent: accessory muscle use, rales, rhonchi, wheezes - Cardiovascular Cardiovascular exam: Present: RRR, +S1, +S2. Absent: diastolic murmur, gallop, rubs, systolic murmur - GI/Abdominal GI/Abdominal exam: Present: normal bowel sounds, soft (diffuse tenderness, cries on light palpation in epiagstrium, lower abdomen), no peritoneal signs. Absent: distended, tenderness - Extremities Exam Extremities exam: Present: warm, radial pulses palpable and symmetrical. Absent : calf tenderness, cyanotic, pedal edema - Neurological Exam Neurological exam: Present: altered, CN II-XII intact, no focal deficits. Absent: pronater drift, facial droop, speech deficit Internal Medicine: Result - Labs CBC & Chem 7: 09/22/17 04:40 09/22/17 04:40 Labs: Short CBC 09/21/17 Range/Units 05:04 WBC 4.9 (4.3-11.1) K/mcL Hgb 6.8 L (11.5-15.4) g/dL Hct 22.0 L (35.3-44.9) % Plt Count 86 L (140-400) K/mcL Neutrophils # 3.8 (1.6-8.9) K/mcL BMP 09/21/17 05:04 Sodium 134 L Potassium 3.5 Chloride 93 L Carbon Dioxide 31 H BUN 26 H D Creatinine 4.97 H Glucose 111 H Calcium 8.0 L Liver Function 09/21/17 Range/Units 05:04 Albumin 2.3 L (3.5-5.0) g/dL - ABG Interpretation ABG results: PT/INR, D-dimer PT 13.7 Seconds (9.4-12.1) H 09/08/17 03:55 Consult Discharge Plan - Plan Referrals: Na Johansen, TYLER [Primary Care Provider] - 09/30/17 9:45 am ( ) Prescriptions: Acetylcysteine 10% 2 ml IH [id number] #30 inhsol Ipratropium/Albuterol Neb [Duoneb] 3 ml IH [id number] #30 inhsol Cefdinir [Omnicef] 300 mg PO BID 10 Days #20 capsule GuaiFENesin ER [Mucinex] 600 mg PO BID 5 Days #10 tbbp.12hr Nicotine Patch [Nicoderm] 21 mg TD DAILY #30 patch.td24
[2017-09-21] MEDS: *HR* OxyCODONE Immed Rel 5 MG TABLET PO PRN ×2 (11:05→22:28)
[2017-09-21] MEDS ORDERED: 0.9 % Sodium Chloride 250 ML ONE ×2 (13:24→17:36)
[2017-09-21] MEDS: Famotidine 20 MG TABLET PO SCH (22:29)
[2017-09-22] MEDS: Ipratropium/Albuterol Neb 3 ML IH SCH ×6 (04:02→23:05)
[2017-09-22] MEDS: Insulin LISPRO 300 UNITS/3 ML VIAL SQ SCH ×6 (04:26→23:06)
[2017-09-22 04:56] LABS: Red Cell Distribution Width 18.8 % (11.5-14.5)
[2017-09-22 04:58] LABS: Eosinophils # 0.1 K/mcL (0.0-0.6); Eosinophils % 2.6 %; Hematocrit 23.5 % (35.3-44.9); Hemoglobin 7.6 g/dL (11.5-15.4); Immature Granulocytes % 1.3 % (0-4); Immature Platelets 3.7 % (1.1-6.1); Lymphocytes # 0.7 K/mcL (0.6-4.6); Lymphocytes % 15.7 %; Mean Corpuscular HGB Conc 32.3 g/dL (31.6-35.5); Mean Corpuscular Hemoglobin 29.5 pg (28.0-33.3); Mean Corpuscular Volume 91.1 fL (83.0-100.0); Monocytes # 0.2 K/mcL (0.0-1.3); Monocytes % 4.1 %; Neutrophils # 3.5 K/mcL (1.6-8.9); Platelet Count 75 K/mcL (140-400); Red Blood Count 2.58 M/mcL (3.82-4.97); Segmented Neutrophils % 76.3 %
[2017-09-22 05:15] LABS: Anisocytosis 1+ (Not Present); Platelet Estimate Decreased (Normal)
[2017-09-22 05:16] LABS: Calcium 7.8 mg/dL (8.6-10.8); Magnesium 2.2 mg/dL (1.6-2.6); Phosphorous 5.3 mg/dL (2.3-4.7); Potassium 3.5 mEq/L (3.5-4.5)
[2017-09-22] MEDS: Ondansetron 4 MG/2 ML VIAL IVP PRN (05:49)
[2017-09-22] MEDS: *HR* OxyCODONE Immed Rel 5 MG TABLET PO PRN ×3 (05:50→21:50)
[2017-09-22] MEDS: Pantoprazole 40 MG VIAL IVP SCH (05:50)
[2017-09-22] MEDS: Renal Vitamin 1 MG CAPSULE PO SCH (07:54)
[2017-09-22] MEDS: Cholecalciferol (D-3) 1,000 UNIT TABLET PO SCH (07:54)
[2017-09-22] MEDS: Nicotine 21 MG PATCH.TD24 TD SCH (07:54)
[2017-09-22] MEDS: Lactobacillus 1 EACH CAP.SPRINK PO SCH ×2 (07:54→21:49)
[2017-09-22] MEDS: Diltiazem CD (24hr) 120 MG CAPSULE PO SCH (07:54)
[2017-09-22] MEDS ORDERED: 0.9 % Sodium Chloride 1,000 ML PRIME SCH (08:30)
[2017-09-22] MEDS ORDERED: 0.9 % Sodium Chloride 250 ML IVC PRN (08:30)
[2017-09-22] MEDS: Budesonide/Formoterol 80/4.5 MDI IH SCH ×2 (08:35→19:49)
[2017-09-22] MEDS ORDERED: 0.9 % Sodium Chloride 2,000 ML ONE (09:38)
[2017-09-22] MEDS: Calcium Acetate 667 MG CAPSULE PO SCH ×3 (09:52→17:49)
--- NOTE | 2017-09-22 11:54 | Palliative - Consult Note ---
<Jovani Sylvester - Last Filed: 09/22/17 14:17> Date of Encounter: 09/22/17 Time of Encounter: 11:52 - Assessment and Plan (1) Goals of care, counseling/discussion Current Visit: Yes Status: Acute Assessment and plan: - Pt is alert and oriented at time of interview. - Pt confirms that she would like aggressive care during hospital stay - She confirms full code status - Does not have a POA or living will, but states her son will likely be POA. - Further symptomatic control for nausea and pain as below. (2) Nausea and vomiting Current Visit: Yes Status: Acute Assessment and plan: - Pt reports intractable nausea and vomiting that occurs randomly without identifiable triggers - Recommend scheduled zofran with phenegran PRN for symptomatic control - Pt denies any episodes of emesis today. - unknown etiology at this time. Further management per primary team Qualifiers: Vomiting type: unspecified Vomiting Intractability: non-intractable Qualified Code(s): R11.2 - Nausea with vomiting, unspecified (3) Abdominal pain Current Visit: Yes Status: Chronic Assessment and plan: - Pt reports chronic abdominal pain for unspecified amount of time. -Exacerbated possibly with colitis and nausea and vomiting - Recommend continued current medical regimen for symptomatic control. - Further management per primary team. Qualifiers: Abdominal location: lower abdomen, unspecified Qualified Code(s): R10.30 - Lower abdominal pain, unspecified (4) ESRD (end stage renal disease) Current Visit: Yes Status: Chronic Assessment and plan: - Pt states that she would like to continue HD as scheduled as is reflected in her goals of care as above. - Further management per nephrology Palliative-CN HPI - Data of Consult Patient: new to practice Consult date: 09/22/17 Requesting Physician: Gisselle Hoover MD Primary Care Provider: Na Johansen CNP - Consult Narrative Reason for consult: Poor functional status, multiple medical comorbidities. History of present illness: Ms. Parra is a 71 year old female with a significant PMHx of COPD, ESRD, paroxysmal AFib, chronic pain, ileostomy in place. She has been admitted for colitis which has improved since admission. Pt has been experiencing intractable nausea and vomiting during course of hospital stay. She states that she experiences random episodes with no apparent trigger or relation to food. She has been receiving TPN for the past couple days. At time of interview, pt denies emesis but states she has been experiencing nausea. States her zofran and phenegran help some. She is also experiences chronic abdominal pain. It is located just below her ileostomy bag site in her lower mid abdomen and is pretty constant. She states that if she gets her pain medication soon after onset her pain is tolerable. Her pain has been present for sometime but is unsure how long. She states she does not have a medical POA, but states that it will likely be her son, who lives nearby. She denies having a living will either. She remains adamant that she would like everything done for her care including full code resuscitation status. CC: Gisselle Hoover MD Past Med Surg Social Fam HX - Past Medical History Medical history: asthma, COPD, GERD, hypertension, renal disease, thyroid disease Psychiatric history: no psych history - Past Surgical History Surgical History: appendectomy, cholecystectomy, colostomy, hysterectomy, other - Social History Smoking Status: Former smoker Smokeless Tobacco Status: No Alcohol use: none Drug use: none - Family History Mother Adopted: No Living Status: Hx Family Cardiac Disorders: Yes ([place]/ Stroke) Hx Family Respiratory Disorders: No Hx Family Cancer: No Hx Family GI Disorders: No Hx Family Endocrine Disorder: No Hx Family Neuromuscular Disorders: No Hx Family Neurologic Disorders: No Hx Family HEENT Disorders: No Hx Family Autoimmune Disorders: No Father Adopted: No Living Status: Hx Family Cardiac Disorders: Yes ([place]) Hx Family Respiratory Disorders: No Hx Family Cancer: No Hx Family GI Disorders: No Hx Family Endocrine Disorder: No Hx Family Neuromuscular Disorders: No Hx Family Neurologic Disorders: No Hx Family HEENT Disorders: No Hx Family Autoimmune Disorders: No Brother Living Status: Still Living Hx Family Cardiac Disorders: Yes Hx Family Respiratory Disorders: No Hx Family Endocrine Disorder: Yes Medications and Allergies Amitriptyline [Elavil] 50 mg PO HS 09/19/15 [History] Cholecalciferol (Vitamin D3) [Vitamin D3] 5,000 unit PO DAILY #0 09/19/15 [ History] Ranitidine HCl [Zantac] 150 mg PO HS 09/19/15 [History] Cyanocobalamin (B-12) [Vitamin B12] 1,000 mcg IM QMONTH 02/21/17 [History] Levothyroxine Sodium [Synthroid] 300 mcg PO DAILY 02/21/17 [History] Mometasone/Formoterol [Dulera 100 Mcg/5 Mcg Inhaler] 2 puff IH BID 02/21/17 [ History] Lactobacillus [Culturelle] 1 each PO BID #60 cap.sprink 03/10/17 [Rx] Lidocaine/Prilocaine CREAM [Emla] 1 appl TP AD PRN 06/30/17 [History] Renal Vitamin [Renal Caps Softgel] 1 mg PO DAILY 06/30/17 [History] Acetaminophen [Tylenol] 650 mg PO Q6HR PRN #20 tab 07/10/17 [Rx] Menthol [Dennis] 3.2 mg MM Q4H PRN 07/16/17 [History] Calcitriol [Rocaltrol] 0.25 mcg PO DAILY #15 capsule 08/06/17 [Rx] Ferrous Sulfate 325 mg PO DAILY@0800 #30 tablet 08/06/17 [Rx] Acetylcysteine 10% 2 ml IH [id number] #30 inhsol 09/14/17 [Rx] Cefdinir [Omnicef] 300 mg PO BID 10 Days #20 capsule 09/14/17 [Rx] Diltiazem CD (24hr) [Cardizem CD] 120 mg PO DAILY cap.er.24h 09/14/17 [Rx] GuaiFENesin ER [Mucinex] 600 mg PO BID 5 Days #10 tbbp.12hr 09/14/17 [Rx] Ipratropium/Albuterol Neb [Duoneb] 3 ml IH [id number] #30 inhsol 09/14/17 [Rx] Nicotine Patch [Nicoderm] 21 mg TD DAILY #30 patch.td24 09/14/17 [Rx] 3 Allergy/AdvReac Type Severity Reaction Status Date / Time codeine AdvReac Severe Vomiting Verified 03/06/17 15:22 naproxen [From Naprosyn] AdvReac Severe Vomiting Verified 03/06/17 15:22 - Constitutional Constitutional ROS PAL: fatigue - Cardiovascular Cardiovascular ROS: chest pain - Respiratory Respiratory: cough, dyspnea, dyspnea on exertion, wheezing - Gastrointestinal Gastrointestinal: abdominal pain, nausea, vomiting - Neurological Neurological ROS: weakness Palliative Care-Exam - Constitutional Vitals: Temp Pulse Resp BP Pulse Ox 97.6 F 77 18 126/39 98 09/22/17 09:05 09/22/17 06:51 09/22/17 09:05 09/22/17 11:35 09/22/17 08:37 General appearance: Present: mild distress, thin - ENT ENT exam: Present: mucous membranes moist - Respiratory Respiratory exam: Present: accessory muscle use, decreased breath sounds, rales , wheezes - Cardiovascular Cardiovascular exam: Present: +S1, +S2 - GI/Abdominal Exam GI/Abdominal exam: Present: soft, tenderness Internal Medicine - CN: Reslt - Labs CBC & Chem 7: 09/22/17 04:40 09/22/17 04:40 Labs: Short CBC 09/22/17 Range/Units 04:40 WBC 4.6 (4.3-11.1) K/mcL Hgb 7.6 L (11.5-15.4) g/dL Hct 23.5 L (35.3-44.9) % Plt Count 75 L (140-400) K/mcL Neutrophils # 3.5 (1.6-8.9) K/mcL BMP 09/22/17 04:40 Sodium 134 L Potassium 3.5 Chloride 95 L Carbon Dioxide 29 BUN 43 H D Creatinine 6.02 H Glucose 105 H Calcium 7.8 L - ABG Interpretation ABG results: PT/INR, D-dimer PT 13.7 Seconds (9.4-12.1) H 09/08/17 03:55 Consult Discharge Plan - Plan Referrals: Na Johansen, TYLER [Primary Care Provider] - 09/30/17 9:45 am ( ) Prescriptions: Acetylcysteine 10% 2 ml IH [id number] #30 inhsol Ipratropium/Albuterol Neb [Duoneb] 3 ml IH [id number] #30 inhsol Cefdinir [Omnicef] 300 mg PO BID 10 Days #20 capsule GuaiFENesin ER [Mucinex] 600 mg PO BID 5 Days #10 tbbp.12hr Nicotine Patch [Nicoderm] 21 mg TD DAILY #30 patch.td24 Palliative Quality Palliative Quality: Screen for Code Status: Yes, Screen for Goals of Care: Yes, Screen for Pain: Yes, If Pain Regimen Started, Initiate Bowel Regimen: Yes, Screen for Nausea/Vomitting: Yes Code Status: Full Code <Luis Melton - Last Filed: 09/22/17 14:57> Date of Encounter: 09/22/17 Palliative-CN HPI - Data of Consult Requesting Physician: Gisselle Hoover MD Primary Care Provider: Na Johansen CNP - Consult Narrative History of present illness: Ms. Parra is a 71 year old female CC: Gisselle Hoover MD Palliative Care-Exam - Constitutional Vitals: Temp Pulse Resp BP Pulse Ox 97.1 F L 77 18 134/25 98 09/22/17 12:15 09/22/17 06:51 09/22/17 12:15 09/22/17 12:15 09/22/17 08:37 Internal Medicine - CN: Reslt - Labs CBC & Chem 7: 09/22/17 04:40 09/22/17 04:40 Labs: Short CBC 09/22/17 Range/Units 04:40 WBC 4.6 (4.3-11.1) K/mcL Hgb 7.6 L (11.5-15.4) g/dL Hct 23.5 L (35.3-44.9) % Plt Count 75 L (140-400) K/mcL Neutrophils # 3.5 (1.6-8.9) K/mcL BMP 09/22/17 04:40 Sodium 134 L Potassium 3.5 Chloride 95 L Carbon Dioxide 29 BUN 43 H D Creatinine 6.02 H Glucose 105 H Calcium 7.8 L - ABG Interpretation ABG results: PT/INR, D-dimer PT 13.7 Seconds (9.4-12.1) H 09/08/17 03:55 - Attending Attestation I examined this patient and my medical decision-making was reviewed with the Resident Physician. I agree with the documented findings, disposition and treatment plan as described except to the extent set forth below.
--- NOTE | 2017-09-22 15:31 | Nephrology Progress Note ---
Date of Encounter: 09/22/17 - Assessment and Plan (1) Anemia in CKD (chronic kidney disease) Current Visit: Yes Status: Chronic Hgb remains poor at 7.6 likely due to a combination of prior bleeds, ESRD and iron def Continue iron supplements Will consider dosing with EPO Qualifiers: Chronic kidney disease stage: on chronic dialysis Qualified Code(s): N18.6 - End stage renal disease; D63.1 - Anemia in chronic kidney disease; D63.1 - Anemia in chronic kidney disease; Z99.2 - Dependence on renal dialysis; Z99.2 - Dependence on renal dialysis; Z99.2 - Dependence on renal dialysis; Z99.2 - Dependence on renal dialysis (2) ESRD (end stage renal disease) on dialysis Current Visit: Yes Status: Chronic Next HD planned for HD with aggressive UF as tolerated SOB more likely due to her persistent PNA than fluid overload Lytes stabilized and WNL except phos, continue binders with meals (3) Pneumonia Current Visit: Yes Status: Acute Continue anntibiotics per primary team Agree with pulm toilet as well Qualifiers: Pneumonia type: due to Escherichia coli Laterality: left Lung location: lower lobe of lung Qualified Code(s): J15.5 - Pneumonia due to Escherichia coli Subjective Principal diagnosis: ESRD Interval history: Interim noted, pt seen and examined s/p fistulogram and HD yetsreday. Pt still reports not feeling good today due to her continued SOB despite HD with a very wet cough noted. She also appears forgetful as well. Objective - Vital Signs Vital signs: Vital Signs Temp Pulse Resp BP Pulse Ox 09/22/17 12:15 97.1 F L 18 134/25 09/22/17 12:05 146/36 09/22/17 11:35 126/39 09/22/17 11:05 123/41 09/22/17 10:35 105/32 09/22/17 10:05 120/76 09/22/17 09:35 109/52 09/22/17 09:05 97.6 F 18 130/53 09/22/17 08:37 18 98 09/22/17 06:51 97.4 F L 77 16 120/49 99 09/22/17 04:32 98.2 F 74 16 116/63 97 09/22/17 04:02 15 98 09/22/17 00:34 97.9 F 89 15 144/84 100 09/21/17 23:35 15 100 09/21/17 20:35 15 95 09/21/17 19:14 98.6 F 76 16 107/47 90 09/21/17 17:19 98 F 80 16 106/50 100 09/21/17 16:04 97.8 F 73 17 134/63 100 Intake and Output 09/21/17 09/22/17 09/22/17 23:59 07:59 15:59 Intake Total 470 / 470 1378 / 1378 600 / 600 Output Total 100 / 100 600 / 600 Balance 470 / 470 1278 / 1278 0 / 0 Intake: IV Fluids 1008 / 1008 D5% And 0.45% Nacl 1000 Ml Bag 758 / 758 1,000 ML @ 40 mls/hr IVC .Q24H [facility] Rx#:[id number] Intralipid 20% 250 ML @ 21 mls/ 250 / 250 hr IVPB DAILY@1700 [facility] Rx#: [id number] Oral 120 / 120 120 / 120 0 / 0 Blood Product 350 / 350 Rbcs Leuko Poor As-1 Unit 350 / 350 [id number] Other 250 / 250 Intake, Rinseback and Flushes 600 / 600 Output: Urine 100 / 100 0 / 0 Total Dialysis (HD) Output 600 / 600 Other: Meal PUDDING WITH MEDS Lunch Percent of Meal Consumed 0% Stool Size Moderate Stool Consistency soft formed Stool Characteristics Normal for Patient Stool Color Brown # Bowel Movements 1 Weight 52.163 kg Blood Glucose* 158 132 128 Hemodialysis Net Fluid Removed 0 (mL) Patient Weight 09/22/17 23:59 Weight 52.163 kg - Lab 09/22/17 04:40 09/22/17 04:40 Most recent lab results Calcium 7.8 mg/dL (8.6-10.8) L 09/22/17 04:40 Phosphorus 5.3 mg/dL (2.3-4.7) H 09/22/17 04:40 Magnesium 2.2 mg/dL (1.6-2.6) 09/22/17 04:40 Consult Discharge Plan - Plan Referrals: Na Johansen, [employer] [Primary Care Provider] - 09/30/17 9:45 am ( ) Prescriptions: Acetylcysteine 10% 2 ml IH [id number] #30 inhsol Ipratropium/Albuterol Neb [Duoneb] 3 ml IH [id number] #30 inhsol Cefdinir [Omnicef] 300 mg PO BID 10 Days #20 capsule GuaiFENesin ER [Mucinex] 600 mg PO BID 5 Days #10 tbbp.12hr Nicotine Patch [Nicoderm] 21 mg TD DAILY #30 patch.td24
[2017-09-22] MEDS ORDERED: Clinimix 5%-20% SOLUTION 2,000 ML with MVI, adult with vitamin K 10 ML, Sodium Acetat... IVC SCH (17:00)
[2017-09-22] MEDS: Ondansetron 4 MG/2 ML VIAL IVP SCH (18:00)
[2017-09-22] MEDS: Famotidine 20 MG TABLET PO SCH (21:49)
--- NOTE | 2017-09-22 23:03 | Internal Med Progress Note ---
Date of Encounter: 09/22/17 Time of Encounter: 15:30 - Assessment and plan (1) Nausea and vomiting Current Visit: Yes Status: Acute Assessment and plan: unclear etiology; no SBO on imaging; continue supportive care with PRN Zofran and Phenergan; Pain control with when necessary oral oxycodone. Start clear liquids as tolerated; on TPN. Surgery follow-up appreciated, no acute surgical intervention; Repeat CT abdomen /pelvis shows anterior wall gastric ulcer. She likely needs EGD; GI consulted, pending evaluation; started on IV Protonix but noted to have worsening thrombocytopenia, held today; Palliative care team on board; Qualifiers: Vomiting type: unspecified Vomiting Intractability: non-intractable Qualified Code(s): R11.2 - Nausea with vomiting, unspecified (2) Small bowel obstruction Current Visit: Yes Status: Ruled-out (3) Colitis Current Visit: Yes Status: Acute Assessment and plan: Patient initially was admitted with colitis at splenic flexure and completed a course of IV Flagyl and ciprofloxacin. Surgery was consulted at the time and patient underwent multiple CT scans of her abdomen, recommended no surgical intervention. (4) Hypokalemia Current Visit: Yes Status: Resolved (5) COPD (chronic obstructive pulmonary disease) Current Visit: Yes Status: Chronic Assessment and plan: Patient had mild acute exacerbation of COPD during this admission. Resolved now. Continue bronchodilators and supplemental oxygen as needed. Completed a course of IV antibiotics for possible pneumonia/acute bronchitis. Received enteral steroids for about [address] abdomen/pelvis shows tree-in-bud opacities and left lower lobe opacity, patient completed a two-week course of multiple IV antibiotics, blood cultures remained negative. Qualifiers: COPD type: emphysema Emphysema type: panlobular Qualified Code(s): J43.1 - Panlobular emphysema (6) Anemia in CKD (chronic kidney disease) Current Visit: Yes Status: Chronic Assessment and plan: Hb improved to 7.6 s/p 1unit PRBC transfusion; 2nd unit was held yesterday due to dyspnea; hold subcutaneous heparin. receives Epogen at HD; Qualifiers: Chronic kidney disease stage: on chronic dialysis Qualified Code(s): N18.6 - End stage renal disease; D63.1 - Anemia in chronic kidney disease; D63.1 - Anemia in chronic kidney disease; Z99.2 - Dependence on renal dialysis; Z99.2 - Dependence on renal dialysis; Z99.2 - Dependence on renal dialysis; Z99.2 - Dependence on renal dialysis (7) Ileostomy in place Current Visit: Yes Status: Chronic (8) ESRD (end stage renal disease) on dialysis Current Visit: Yes Status: Chronic Assessment and plan: Nephrology on board for hemodialysis needs. Receiving regular HD sessions; (9) Tobacco abuse Current Visit: Yes Status: Chronic (10) Leg pain Current Visit: Yes Status: Chronic Qualifiers: Laterality: bilateral Qualified Code(s): M79.604 - Pain in right leg; M79.605 - Pain in left leg; M79.605 - Pain in left leg (11) Chronic diarrhea Current Visit: Yes Status: Chronic (12) Hypothyroid Current Visit: Yes Status: Chronic Qualifiers: Hypothyroidism type: unspecified Qualified Code(s): E03.9 - Hypothyroidism , unspecified (13) Atrial fibrillation Current Visit: Yes Status: Chronic Assessment and plan: Currently rate controlled - Continue beta lex, calcium channel lex; Not on long-term anticoagulation due to risk of falls and history of bleeds Qualifiers: Atrial fibrillation type: chronic Qualified Code(s): I48.2 - Chronic atrial fibrillation - Subjective Interval history: Alert and oriented today, able to answer appropriately; continues to have severe lower abdominal pain on palpation; improved nausea and vomiting, would like to eat; had HD today; off NG tube; - Constitutional Vitals: Temp Pulse Resp BP Pulse Ox 99.1 F 90 16 124/66 94 09/22/17 20:36 09/22/17 20:36 09/22/17 20:36 09/22/17 20:36 09/22/17 20:36 General appearance: Present: cachectic, A&O X 2, underweight, answers questions appropriately - Respiratory Respiratory exam: Present: CTAB (coarse rhonchurous breath sounds B/L). Absent : accessory muscle use, rales, rhonchi, wheezes - Cardiovascular Cardiovascular exam: Present: RRR, +S1, +S2. Absent: diastolic murmur, gallop, rubs, systolic murmur - GI/Abdominal GI/Abdominal exam: Present: normal bowel sounds, soft (tenderness to light palpation in LLQ and RLQ), no peritoneal signs. Absent: distended, tenderness - Extremities Exam Extremities exam: Present: full ROM, warm, radial pulses palpable and symmetrical. Absent: calf tenderness, cyanotic, pedal edema - Neurological Exam Neurological exam: Present: CN II-XII intact, oriented X3, no focal deficits. Absent: pronater drift, facial droop, speech deficit Internal Medicine: Result - Labs CBC & Chem 7: 09/22/17 04:40 09/22/17 04:40 Labs: Short CBC 09/22/17 Range/Units 04:40 WBC 4.6 (4.3-11.1) K/mcL Hgb 7.6 L (11.5-15.4) g/dL Hct 23.5 L (35.3-44.9) % Plt Count 75 L (140-400) K/mcL Neutrophils # 3.5 (1.6-8.9) K/mcL BMP 09/22/17 04:40 Sodium 134 L Potassium 3.5 Chloride 95 L Carbon Dioxide 29 BUN 43 H D Creatinine 6.02 H Glucose 105 H Calcium 7.8 L - ABG Interpretation ABG results: PT/INR, D-dimer PT 13.7 Seconds (9.4-12.1) H 09/08/17 03:55 Consult Discharge Plan - Plan Referrals: Na Johansen, TYLER [Primary Care Provider] - 09/30/17 9:45 am ( ) Prescriptions: Acetylcysteine 10% 2 ml IH [id number] #30 inhsol Ipratropium/Albuterol Neb [Duoneb] 3 ml IH [id number] #30 inhsol Cefdinir [Omnicef] 300 mg PO BID 10 Days #20 capsule GuaiFENesin ER [Mucinex] 600 mg PO BID 5 Days #10 tbbp.12hr Nicotine Patch [Nicoderm] 21 mg TD DAILY #30 patch.td24
[2017-09-23] MEDS: Ondansetron 4 MG/2 ML VIAL IVP SCH ×4 (01:06→16:57)
[2017-09-23] MEDS: Ipratropium/Albuterol Neb 3 ML IH SCH ×6 (03:31→23:42)
[2017-09-23] MEDS: Insulin LISPRO 300 UNITS/3 ML VIAL SQ SCH ×6 (03:51→22:56)
[2017-09-23 03:55] LABS: Eosinophils # 0.1 K/mcL (0.0-0.6); Eosinophils % 2.1 %; Hematocrit 23.9 % (35.3-44.9); Hemoglobin 7.5 g/dL (11.5-15.4); Immature Platelets 4.3 % (1.1-6.1); Lymphocytes # 0.7 K/mcL (0.6-4.6); Lymphocytes % 14.3 %; Mean Corpuscular HGB Conc 31.4 g/dL (31.6-35.5); Mean Corpuscular Volume 92.3 fL (83.0-100.0); Mean Platelet Volume 10.3 fL (9.4-12.4); Monocytes # 0.2 K/mcL (0.0-1.3); Monocytes % 4.4 %; Red Blood Count 2.59 M/mcL (3.82-4.97); Red Cell Distribution Width 18.7 % (11.5-14.5); Segmented Neutrophils % 78.2 %
[2017-09-23 04:06] LABS: Calcium 8.8 mg/dL (8.6-10.8); Magnesium 1.9 mg/dL (1.6-2.6); Phosphorous 2.8 mg/dL (2.3-4.7)
[2017-09-23 04:07] LABS: Calcium 8.8 mg/dL (8.6-10.8); Phosphorous 2.8 mg/dL (2.3-4.7)
[2017-09-23 04:18] LABS: Neutrophils # 4.1 K/mcL (1.6-8.9); Platelet Count 68 K/mcL (140-400)
[2017-09-23] MEDS: *HR* OxyCODONE Immed Rel 5 MG TABLET PO PRN ×2 (05:32→16:56)
[2017-09-23] MEDS: Budesonide/Formoterol 80/4.5 MDI IH SCH ×2 (07:42→20:19)
[2017-09-23] MEDS: Cholecalciferol (D-3) 1,000 UNIT TABLET PO SCH (09:05)
[2017-09-23] MEDS: Nicotine 21 MG PATCH.TD24 TD SCH (09:05)
[2017-09-23] MEDS: Lactobacillus 1 EACH CAP.SPRINK PO SCH ×2 (09:05→21:53)
[2017-09-23] MEDS: Diltiazem CD (24hr) 120 MG CAPSULE PO SCH (09:06)
[2017-09-23] MEDS: *HR* Promethazine 25 MG/ML VIAL IVP PRN (09:06)
[2017-09-23] MEDS: Renal Vitamin 1 MG CAPSULE PO SCH (09:06)
[2017-09-23] MEDS: Calcium Acetate 667 MG CAPSULE PO SCH ×3 (10:18→17:46)
--- NOTE | 2017-09-23 10:28 | Nephrology Progress Note ---
Date of Encounter: 09/23/17 Time of Encounter: 10:26 - Assessment and Plan (1) ESRD (end stage renal disease) on dialysis Current Visit: Yes Status: Chronic Plan for HD tomorrow Renal diet when diet advanced Avoid nephrotoxins if possible (2) Anemia in CKD (chronic kidney disease) Current Visit: Yes Status: Chronic Hgb 7.5 Goal 10-11 Continue Aranesp Qualifiers: Chronic kidney disease stage: on chronic dialysis Qualified Code(s): N18.6 - End stage renal disease; D63.1 - Anemia in chronic kidney disease; D63.1 - Anemia in chronic kidney disease; Z99.2 - Dependence on renal dialysis; Z99.2 - Dependence on renal dialysis; Z99.2 - Dependence on renal dialysis; Z99.2 - Dependence on renal dialysis (3) Hypocalcemia Current Visit: No Status: Acute Ca+ 8.8-much better for patient (4) Colitis Current Visit: Yes Status: Acute per primary team GI consult placed 09/19--still pending (5) Pneumonia Current Visit: Yes Status: Acute per primary team Qualifiers: Pneumonia type: due to Escherichia coli Laterality: left Lung location: lower lobe of lung Qualified Code(s): J15.5 - Pneumonia due to Escherichia coli Subjective Principal diagnosis: ESRD Interval history: Patient seen and examined. Patient is confused. Objective - Vital Signs Vital signs: Vital Signs Temp Pulse Resp BP Pulse Ox 09/23/17 07:42 16 94 09/23/17 06:42 98.4 F 82 18 131/51 95 09/23/17 03:31 18 95 09/23/17 03:15 97.4 F L 81 16 111/70 94 09/23/17 00:18 99.2 F 89 15 100/55 93 09/23/17 00:12 15 92 09/22/17 20:36 99.1 F 90 16 124/66 94 09/22/17 19:49 18 94 09/22/17 16:33 98.3 F 90 16 137/82 95 09/22/17 15:56 18 98 09/22/17 12:15 97.1 F L 18 134/25 09/22/17 12:05 146/36 09/22/17 11:35 126/39 09/22/17 11:05 123/41 09/22/17 10:35 105/32 Intake and Output 11/20/17 11/21/17 11/21/17 23:59 07:59 15:59 Intake Total 1437 / 1437 Balance 1437 / 1437 Intake: IV Fluids 250 / 250 Intralipid 20% 250 ML @ 21 mls/ 250 / 250 hr IVPB DAILY@1700 COUNTS INCLUDE 234 BEDS AT [facility] Rx#: [id number] Oral 100 / 100 Other 1087 / 1087 Other: Weight 51.6 kg Blood Glucose* 137 146 Patient Weight 09/23/17 23:59 Weight 51.6 kg - General Appearance General appearance: Present: cachectic, chronically ill, frail EENT: Present: ATNC, hearing intact Neck: Present: supple Respiratory: Present: wheezing, course breath sounds, rhonchi Cardiology: Present: no edema, normal S1, normal S2 Dialysis Vascular Access: Arteriovenous Fistula Gastrointestinal: Present: no tenderness, no guarding Integumentary: Present: warm and dry Neurologic: Present: confused Psychiatric: Present: cooperative - Lab 09/23/17 03:45 09/23/17 03:45 Most recent lab results Calcium 8.8 mg/dL (8.6-10.8) 09/23/17 03:45 Phosphorus 2.8 mg/dL (2.3-4.7) 09/23/17 03:45 Magnesium 1.9 mg/dL (1.6-2.6) 09/23/17 03:45 Consult Discharge Plan - Plan Referrals: Na Johansen CNP [Primary Care Provider] - 09/30/17 9:45 am ( ) Prescriptions: Acetylcysteine 10% 2 ml IH [id number] #30 inhsol Ipratropium/Albuterol Neb [Duoneb] 3 ml IH [id number] #30 inhsol Cefdinir [Omnicef] 300 mg PO BID 10 Days #20 capsule GuaiFENesin ER [Mucinex] 600 mg PO BID 5 Days #10 tbbp.12hr Nicotine Patch [Nicoderm] 21 mg TD DAILY #30 patch.td24
--- NOTE | 2017-09-23 10:31 | Internal Med Progress Note ---
Date of Encounter: 09/23/17 Time of Encounter: 09:30 - Assessment and plan (1) Nausea and vomiting Current Visit: Yes Status: Acute Assessment and plan: -etiology continues to be unclear -SBO ruled out via imaging -anterior wall gastric ulcer seen on repeat CT abd/pelvis -holding protonix d/t worsening thrombocytopenia -continue supportive care with pain control and antiemetics -clear liquids as tolerated, on TPN; eventually renal diet when able to tolerate -GI consulted, will have EGD today Qualifiers: Vomiting type: unspecified Vomiting Intractability: non-intractable Qualified Code(s): R11.2 - Nausea with vomiting, unspecified (2) Colitis Current Visit: Yes Status: Acute Assessment and plan: -on admission, colitis at splenic flexure--treated with IV flagyl and ciprofloxacin -surgery recommends no surgical intervention (3) COPD (chronic obstructive pulmonary disease) Current Visit: Yes Status: Chronic Assessment and plan: -continue supplemental O2 -continue albuterol, duoneb, symbicort Qualifiers: COPD type: emphysema Emphysema type: panlobular Qualified Code(s): J43.1 - Panlobular emphysema (4) Anemia Current Visit: Yes Status: Chronic Assessment and plan: -anemia in setting of CKD stage IV -transfusion 1 unit prbc on 09.21.17 (Hgb was 6.8) -continue Aranesp per nephrology, goal Hgb of 10 to 11 -H/H stable since last prbc transfusion; Hgb 7.5 and Hct 23.9 today Qualifiers: Anemia type: unspecified type Qualified Code(s): D64.9 - Anemia, unspecified (5) ESRD (end stage renal disease) on dialysis Current Visit: Yes Status: Chronic Assessment and plan: -will receive HD tomorrow -continue to avoid nephrotoxins when able (6) Atrial fibrillation Current Visit: Yes Status: Chronic Assessment and plan: -rate controlled with HR mid 70's to 90 -continue diltiazem CD -not on anticoagulation d/t risk of falls and h/o bleed Qualifiers: Atrial fibrillation type: chronic Qualified Code(s): I48.2 - Chronic atrial fibrillation (7) Hypothyroid Current Visit: Yes Status: Chronic Assessment and plan: -continue synthroid Qualifiers: Hypothyroidism type: unspecified Qualified Code(s): E03.9 - Hypothyroidism , unspecified (8) Tobacco abuse Current Visit: Yes Status: Chronic Assessment and plan: -continue nicoderm 21 mg transdermal Q24H - Subjective Interval history: Patient seen and examined at bedside this morning. Patient sitting up in bed. Complaints today include diffuse abdominal pain and chest pain from coughing. - Constitutional Vitals: Temp Pulse Resp BP Pulse Ox 98.4 F 82 16 131/51 94 09/23/17 06:42 09/23/17 06:42 09/23/17 07:42 09/23/17 06:42 09/23/17 07:42 General appearance: Present: cachectic, A&O X 2, underweight, answers questions appropriately Internal Medicine: Result - Labs CBC & Chem 7: 09/23/17 03:45 09/23/17 03:45 Labs: Short CBC 09/23/17 Range/Units 03:45 WBC 5.2 (4.3-11.1) K/mcL Hgb 7.5 L (11.5-15.4) g/dL Hct 23.9 L (35.3-44.9) % Plt Count 68 L (140-400) K/mcL Neutrophils # 4.1 (1.6-8.9) K/mcL BMP 09/23/17 09/23/17 03:45 03:45 Sodium 134 L 134 L Potassium 4.0 4.0 Chloride 100 100 Carbon Dioxide 30 H 30 H BUN 27 H D 27 H Creatinine 3.53 H 3.53 H Glucose 134 H 132 H Calcium 8.8 8.8 Liver Function 09/23/17 Range/Units 03:45 Albumin 2.0 L (3.5-5.0) g/dL - ABG Interpretation ABG results: PT/INR, D-dimer PT 13.7 Seconds (9.4-12.1) H 09/08/17 03:55 Consult Discharge Plan - Plan Referrals: Na Johansen, TYLER [Primary Care Provider] - 09/30/17 9:45 am ( ) Prescriptions: Acetylcysteine 10% 2 ml IH [id number] #30 inhsol Ipratropium/Albuterol Neb [Duoneb] 3 ml IH [id number] #30 inhsol Cefdinir [Omnicef] 300 mg PO BID 10 Days #20 capsule GuaiFENesin ER [Mucinex] 600 mg PO BID 5 Days #10 tbbp.12hr Nicotine Patch [Nicoderm] 21 mg TD DAILY #30 patch.td24
--- NOTE | 2017-09-23 11:16 | Gastroenterology Consult Note ---
Date of Encounter: 09/23/17 Time of Encounter: 11:10 - Assessment and plan (1) Gastric ulceration Current Visit: Yes Status: Acute Assessment and plan: Patient admitted for nausea/vomiting, colitis. CT abdomen/pelvis shows possible gastric ulceration, antral wall edema/ inflammation. Plan will be to undergo EGD today. NPO Qualifiers: Gastric ulcer chronicity: acute Gastric ulcer complication status: without hemorrhage or perforation Qualified Code(s): K25.3 - Acute gastric ulcer without hemorrhage or perforation (2) Anemia Current Visit: Yes Status: Chronic Assessment and plan: Hgb 7.5 has required one unit PBRC will undergo EGD today to rule out Upper GI bleed Qualifiers: Anemia type: unspecified type Qualified Code(s): D64.9 - Anemia, unspecified - Time Spent With Patient Total time spent is greater than 50% in coordination of care (as documented) at patient's floor/unit and/or counseling patient: GI History of Present Illness - Data of Consult Patient: new to practice Consult date: 09/23/17 Requesting Physician: Tracie Shipley MD - Consult Narrative Reason for consult: CT abdomen/pelvis shows anterior wall gastric ulcer History of present illness: Ms. Parra is a 71 year old female presented with abdominal pain, nausea and vomiting and was diagnosed with colitis. Patient was treated with IV antibiotics. Patient underwent SBFT which did not constricted a small bowel obstruction. Surgery was consulted and patient did not require any surgical intervention. Patient had a repeat CT abdomen/pelvis which showed wall edema and increased mucosal enhancement of the gastric antrum, possible ulceration. Patient reports mild epigastric pain. She denies nausea, vomiting. She has put in her ileostomy and urostomy. Patient had a EGD on 08/01/[address] Tariq which showed normal jejunum, normal duodenum, gastroparesis. Past Med Surg Social Fam HX - Past Medical History Medical history: asthma, COPD, GERD, hypertension, renal disease, thyroid disease Psychiatric history: no psych history - Past Surgical History Surgical History: appendectomy, cholecystectomy, colostomy, hysterectomy, other - Social History Smoking Status: Former smoker Smokeless Tobacco Status: No Alcohol use: none Drug use: none - Family History Mother Adopted: No Living Status: Hx Family Cardiac Disorders: Yes ([place]/ Stroke) Hx Family Respiratory Disorders: No Hx Family Cancer: No Hx Family GI Disorders: No Hx Family Endocrine Disorder: No Hx Family Neuromuscular Disorders: No Hx Family Neurologic Disorders: No Hx Family HEENT Disorders: No Hx Family Autoimmune Disorders: No Father Adopted: No Living Status: Hx Family Cardiac Disorders: Yes ([place]) Hx Family Respiratory Disorders: No Hx Family Cancer: No Hx Family GI Disorders: No Hx Family Endocrine Disorder: No Hx Family Neuromuscular Disorders: No Hx Family Neurologic Disorders: No Hx Family HEENT Disorders: No Hx Family Autoimmune Disorders: No Brother Living Status: Still Living Hx Family Cardiac Disorders: Yes Hx Family Respiratory Disorders: No Hx Family Endocrine Disorder: Yes Review of Systems: Constitutional: Denies fever, chills HEENT: Denies headache, vision changes, neck pain, sore throat, rhinorrhea Heart: Denies chest pain palpitations Lungs: Reports shortness of breath, cough Abdomen: Worse abdominal pain. denies nausea, vomiting, diarrhea Back: Denies back pain Kidney: Denies dysuria, hematuria Skin: warm and dry Extremities: Denies swelling, pain Neuro: Denies numbness, and tingling - Constitutional Vitals: Temp Pulse Resp BP Pulse Ox 98.1 F 82 20 128/57 93 09/23/17 10:45 09/23/17 10:45 09/23/17 10:45 09/23/17 10:45 09/23/17 10:45 - Other Additional findings: General: Pleasant without distress HEENT: Head atraumatic, normocephalic, EOMI, PERRL, neck nontender to palpation , absent lymphadenopathy, dry Mucous Membranes, Heart: Regular rate and rhythm with no murmur Lungs: Clear rhonchorous bilaterally Abdomen: Soft nontender, nondistended positive bowel sounds. Ileostomy in the left lower quadrant and urostomy in the right lower quadrant both outputting and without surrounding erythema Skin: warm and dry Extremities: Absent pedal edema, Neuro: Alert oriented 3 Vascular: Pedal and radial pulses 2 out of 4 Results - Labs CBC & Chem 7: 09/23/17 03:45 09/23/17 03:45 Labs: Last Result Calcium 8.8 mg/dL (8.6-10.8) 09/23/17 03:45 Troponin I 0.01 ng/mL (0-0.03) 09/17/17 15:52 Triglycerides 175 mg/dL (< 150) H 09/21/17 05:04 Entire Visit Hgb 7.5 g/dL (11.5-15.4) L 09/23/17 03:45 Hct 23.9 % (35.3-44.9) L 09/23/17 03:45 PT 13.7 Seconds (9.4-12.1) H 09/08/17 03:55 Total Bilirubin 0.3 mg/dL (0.2-1.2) 09/20/17 04:30 AST 11 Units/L (5-34) 09/20/17 04:30 ALT 8 Units/L (0-55) 09/20/17 04:30 Amylase 174 Units/L (25-125) H 09/01/17 22:05 Lipase 214 Units/L (8-78) H 09/01/17 22:05 - ABG ABG results: PT/INR, D-dimer PT 13.7 Seconds (9.4-12.1) H 09/08/17 03:55 Consult Discharge Plan - Plan Referrals: Na Johansen CNP [Primary Care Provider] - 09/30/17 9:45 am ( ) Prescriptions: Acetylcysteine 10% 2 ml IH [id number] #30 inhsol Ipratropium/Albuterol Neb [Duoneb] 3 ml IH [id number] #30 inhsol Cefdinir [Omnicef] 300 mg PO BID 10 Days #20 capsule GuaiFENesin ER [Mucinex] 600 mg PO BID 5 Days #10 tbbp.12hr Nicotine Patch [Nicoderm] 21 mg TD DAILY #30 patch.td24
--- NOTE | 2017-09-23 12:30 | Anesthesia Evaluation PreOp ---
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: Denies Any Significant HX Other Medical History: Renal (ESRD on dialysis MWF), Thyroid, GERD Anesthesia History: No Prior Anesthetic Complications, Past Anesthesia ( hysterectomy) Alcohol Use: none Drug use: none Medications and Allergies Amitriptyline [Elavil] 50 mg PO HS 09/19/15 [History] Cholecalciferol (Vitamin D3) [Vitamin D3] 5,000 unit PO DAILY #0 09/19/15 [ History] Ranitidine HCl [Zantac] 150 mg PO HS 09/19/15 [History] Cyanocobalamin (B-12) [Vitamin B12] 1,000 mcg IM QMONTH 02/21/17 [History] Levothyroxine Sodium [Synthroid] 300 mcg PO DAILY 02/21/17 [History] Mometasone/Formoterol [Dulera 100 Mcg/5 Mcg Inhaler] 2 puff IH BID 02/21/17 [ History] Lactobacillus [Culturelle] 1 each PO BID #60 cap.sprink 03/10/17 [Rx] Lidocaine/Prilocaine CREAM [Emla] 1 appl TP AD PRN 06/30/17 [History] Renal Vitamin [Renal Caps Softgel] 1 mg PO DAILY 06/30/17 [History] Acetaminophen [Tylenol] 650 mg PO Q6HR PRN #20 tab 07/10/17 [Rx] Menthol [[place]] 3.2 mg MM Q4H PRN 07/16/17 [History] Calcitriol [Rocaltrol] 0.25 mcg PO DAILY #15 capsule 08/06/17 [Rx] Ferrous Sulfate 325 mg PO DAILY@0800 #30 tablet 08/06/17 [Rx] Acetylcysteine 10% 2 ml IH [id number] #30 inhsol 09/14/17 [Rx] Cefdinir [Omnicef] 300 mg PO BID 10 Days #20 capsule 09/14/17 [Rx] Diltiazem CD (24hr) [Cardizem CD] 120 mg PO DAILY cap.er.24h 09/14/17 [Rx] GuaiFENesin ER [Mucinex] 600 mg PO BID 5 Days #10 tbbp.12hr 09/14/17 [Rx] Ipratropium/Albuterol Neb [Duoneb] 3 ml IH [id number] #30 inhsol 09/14/17 [Rx] Nicotine Patch [Nicoderm] 21 mg TD DAILY #30 patch.td24 09/14/17 [Rx] 3 Allergy/AdvReac Type Severity Reaction Status Date / Time codeine AdvReac Severe Vomiting Verified 03/06/17 15:22 naproxen [From Naprosyn] AdvReac Severe Vomiting Verified 03/06/17 15:22 - Meds/Allergy Pre-op Review Medications Reviewed: Yes Allergies Reviewed: Yes Beta Blockers on Current Med List: No Anesthesia Results - Labs 09/23/17 03:45 09/23/17 03:45 - Imaging EKG: report reviewed (09/17/2017 SINUS RHYTHM BASELINE ARTIFACT LEFT VENTRICULAR HYPERTROPHY) Additional studies: 06/30/2017 Echo Impressions: LVEF 55%. LV function varies with cycle length of AF, but appears normal overall. Normal LV chamber size and function. Mild concentric left ventricular hypertrophy. Atypical septal motion consistent with bundle branch block. Normal right ventricular structure and function. Moderately dilated left atrium. Indeterminate diastolic function. No evidence of pulmonary hypertension. No significant valvular dysfunction. Anesthesia Exam Vital Signs/O2 Sat/Glucose, Most Recent Temp Pulse Resp BP Pulse Ox 98.1 F 82 18 128/57 94 09/23/17 10:45 09/23/17 10:45 09/23/17 11:29 09/23/17 10:45 09/23/17 11:29 Blood Glucose* 123 Height: 5'7''/1.7 m Weight: 113 lbs/51.6 kg NPO (# of Hours): 8 Pain Scale: 0 Pain Scale Used: Numeric (1 - 10) - HEENT Pupil (Motor): EOMI Mallampati: II Teeth: Edentulous Denture Type: Upper: Complete, Lower: Complete Oral Opening: Greater than 3 - NOTCHING PRESS OPERATOR LOC: Oriented NOTCHING PRESS OPERATOR Motor: Normal LUE, Normal LLE, Normal Face, Deficit RUE, Deficit RLE NOTCHING PRESS OPERATOR Sensory: Normal: LUE, LLE, Face, Deficit: RUE, RLE - Cardiac Rhythm: Regular Murmur: None - Pulmonary Breath Sounds: bilateral Rhonchi Respiratory Effort: Symmetrical Anesthesia Assess/Plan ASA Score: 4 Modified [place] Scale for Level of Consciousness: Cooperative, oriented, and tranquil Anesthetic Plan: MAC Monitoring Plan: Standard Monitors
[2017-09-23] MEDS ORDERED: *HR* Propofol 200 MG/20 ML VIAL IVP ONE (13:35)
[2017-09-23] MEDS ORDERED: Ondansetron 4 MG/2 ML VIAL ONE (13:35)
[2017-09-23] MEDS: Sucralfate 1 GM TABLET PO SCH ×2 (16:57→21:53)
[2017-09-23] MEDS ORDERED: Clinimix 5%-20% SOLUTION 2,000 ML with MVI, adult with vitamin K 10 ML, Sodium Acetat... IVC SCH (17:00)
--- NOTE | 2017-09-23 18:03 | Event Note ---
Date of Encounter: 09/23/17 Time of Encounter: 15:20 Patient is a 71y/o female who was initially admitted for abd pain concerning for SBO, however SBO has been ruled out and surgery has signed off. Pt continues to have persistent abd pain, nausea, vomiting, unable to tolerate PO intake, requiring TPN and was found to have CT abd findings concernig for anterior wall gastric ulcer. GI evaluation was requested. pt is s/p EGD and was found to have esophageal ulcers and chronic gastritis. Protonic and Carafate have been added. will continue treatment for patient's comorbidities and initiate d/c planning. PO intake encouraged and will consult social work therapist in regards to d/c planning. Case discussed with resident physician Gifty Amaro, I agree with her documented findings, assessment, and plan, except as listed above.
[2017-09-24] MEDS: *HR* OxyCODONE Immed Rel 5 MG TABLET PO PRN ×3 (01:19→17:12)
[2017-09-24] MEDS: Ondansetron 4 MG/2 ML VIAL IVP SCH ×5 (01:19→23:36)
[2017-09-24] MEDS: Insulin LISPRO 300 UNITS/3 ML VIAL SQ SCH ×6 (02:59→23:31)
[2017-09-24] MEDS: Ipratropium/Albuterol Neb 3 ML IH SCH ×6 (03:35→23:24)
[2017-09-24 05:24] LABS: Hematocrit 23.1 % (35.3-44.9)
[2017-09-24 05:26] LABS: Basophils % 0.2 %; Eosinophils # 0.1 K/mcL (0.0-0.6); Eosinophils % 2.6 %; Hemoglobin 7.2 g/dL (11.5-15.4); Immature Granulocytes % 1.4 % (0-4); Immature Platelets 4.8 % (1.1-6.1); Lymphocytes # 0.8 K/mcL (0.6-4.6); Lymphocytes % 20.1 %; Mean Corpuscular HGB Conc 31.2 g/dL (31.6-35.5); Mean Corpuscular Hemoglobin 28.7 pg (28.0-33.3); Mean Platelet Volume 11.9 fL (9.4-12.4); Monocytes # 0.2 K/mcL (0.0-1.3); Monocytes % 4.6 %; Red Blood Count 2.51 M/mcL (3.82-4.97); Red Cell Distribution Width 18.3 % (11.5-14.5); Segmented Neutrophils % 71.1 %
[2017-09-24 05:36] LABS: Magnesium 2.1 mg/dL (1.6-2.6)
[2017-09-24 05:37] LABS: Calcium 8.8 mg/dL (8.6-10.8); Potassium 3.9 mEq/L (3.5-4.5)
[2017-09-24 05:38] LABS: % Iron Saturation 44 % (15-50); Iron 50 mcg/dL (50-170); Transferrin 82 mg/dL (180-382)
[2017-09-24 05:59] LABS: Ferritin 1359 ng/ml (5-204)
[2017-09-24 06:11] LABS: Platelet Count 67 K/mcL (140-400)
[2017-09-24 06:13] LABS: Anisocytosis 1+ (Not Present); Platelet Estimate Decreased (Normal)
[2017-09-24 06:14] LABS: Poikilocytosis 1+ (Not Present)
[2017-09-24 06:58] LABS: Folate 38.3 ng/mL (7.0-31.4)
[2017-09-24] MEDS ORDERED: 0.9 % Sodium Chloride 250 ML IVC PRN (07:51)
[2017-09-24] MEDS: Budesonide/Formoterol 80/4.5 MDI IH SCH ×2 (07:56→20:30)
[2017-09-24] MEDS: Renal Vitamin 1 MG CAPSULE PO SCH (08:29)
[2017-09-24] MEDS: Lactobacillus 1 EACH CAP.SPRINK PO SCH ×2 (08:29→20:15)
[2017-09-24] MEDS: Cholecalciferol (D-3) 1,000 UNIT TABLET PO SCH (08:29)
[2017-09-24] MEDS: Sucralfate 1 GM TABLET PO SCH ×4 (08:30→21:41)
[2017-09-24] MEDS: Nicotine 21 MG PATCH.TD24 TD SCH (08:30)
[2017-09-24] MEDS: Diltiazem CD (24hr) 120 MG CAPSULE PO SCH (08:30)
[2017-09-24] MEDS: Calcium Acetate 667 MG CAPSULE PO SCH ×3 (08:32→17:12)
[2017-09-24] MEDS ORDERED: 0.9 % Sodium Chloride 2,000 ML ONE (09:22)
--- NOTE | 2017-09-24 14:41 | Palliative Progress Note ---
Date of Encounter: 09/24/17 Time of Encounter: 13:00 - Assessment and plan (1) Nausea and vomiting Current Visit: Yes Status: Acute Assessment and plan: Improved with scheduled Zofran. Patient tolerated dialysis this AM. Tolerating TPN. S/P EGD revealing esophageal ulcers and chronic gastritis. Started on prilosec and carafate. Qualifiers: Qualified Code(s): R11.2 - Nausea with vomiting, unspecified (2) Abdominal pain Current Visit: Yes Status: Chronic Assessment and plan: Controlled with Oxycodone. Patient had 2 doses in past 24 hrs. Qualifiers: Qualified Code(s): R10.30 - Lower abdominal pain, unspecified (3) Goals of care, counseling/discussion Current Visit: Yes Status: Acute Assessment and plan: Patient is FULL CODE and desires full medical treatment. - Time Spent With Patient Total time spent is greater than 50% in coordination of care (as documented) at patient's floor/unit and/or counseling patient: 25 - 35 minutes - Subjective Interval history: Completed dialysis this morning. denies N/V at present. - Constitutional Vitals: Abnormal lab results WBC 4.2 K/mcL (4.3-11.1) L 09/24/17 05:00 RBC 2.51 M/mcL (3.82-4.97) L 09/24/17 05:00 Hgb 7.2 g/dL (11.5-15.4) L 09/24/17 05:00 Hct 23.1 % (35.3-44.9) L 09/24/17 05:00 MCHC 31.2 g/dL (31.6-35.5) L 09/24/17 05:00 RDW 18.3 % (11.5-14.5) H 09/24/17 05:00 Plt Count 67 K/mcL (140-400) L 09/24/17 05:00 Platelet Estimate Decreased (Normal) L 09/24/17 05:00 Poikilocytosis 1+ (Not Present) A 09/24/17 05:00 Anisocytosis 1+ (Not Present) A 09/24/17 05:00 Macrocytosis Present (Not Present) A 09/12/17 04:15 PT 13.7 Seconds (9.4-12.1) H 09/08/17 03:55 APTT 25.5 Seconds (26.0-36.0) L 09/08/17 03:55 Sodium 130 mEq/L (136-145) L 09/24/17 05:00 BUN 51 mg/dL (7-20) H D 09/24/17 05:00 Creatinine 4.80 mg/dL (0.57-1.11) H 09/24/17 05:00 Est GFR ( Amer) 11 (> 60) L 09/24/17 05:00 Est GFR (Non-Af Amer) 9 (> 60) L 09/24/17 05:00 Glucose 114 mg/dL (70-99) H 09/24/17 05:00 POC Glucose 134 (58-89) H 09/24/17 09:55 Ionized Calcium 1.00 mmol/L (1.15-1.35) L 09/08/17 04:00 Transferrin 82 mg/dL (180-382) L 09/24/17 05:00 Ferritin 1359 ng/ml (5-204) H 09/24/17 05:00 Serum Total Protein 5.5 g/dL (6.0-8.3) L 09/20/17 04:30 Albumin 2.0 g/dL (3.5-5.0) L 09/23/17 03:45 Albumin/Globulin Ratio 0.8 (1.1-2.2) L 09/20/17 04:30 Prealbumin 15.0 mg/dL (16.0-38.0) L 09/21/17 05:04 Triglycerides 175 mg/dL (< 150) H 09/21/17 05:04 Amylase 174 Units/L (25-125) H 09/01/17 22:05 Lipase 214 Units/L (8-78) H 09/01/17 22:05 Vitamin B12 940 pg/mL (213-816) H 09/24/17 05:00 Folate 38.3 ng/mL (7.0-31.4) H 09/24/17 05:00 PTH Intact 344.1 pg/ml (8.5-72.5) H 09/04/17 04:10 - Head Head exam: Present: atraumatic, normal inspection - Eye Eye exam: Present: PERRL - ENT ENT exam: Present: mucous membranes moist - Neck Neck exam: Present: normal inspection - Respiratory Respiratory exam: Present: decreased breath sounds - Cardiovascular Cardiovascular exam: Present: RRR, +S1, +S2 - GI/Abdominal GI/Abdominal exam: Present: normal bowel sounds, soft - Extremities Exam Extremities exam: Present: pedal edema - Neurological Exam Neurological exam: Present: alert, oriented X3 Palliative Quality Palliative Quality: Screen for Code Status: Yes, Screen for Goals of Care: Yes, Screen for Pain: Yes, If Pain Regimen Started, Initiate Bowel Regimen: Yes, Screen for Nausea/Vomitting: Yes - Labs CBC & Chem 7: 09/24/17 05:00 09/24/17 05:00 Labs: Laboratory Results - last 24 hr 09/21/17 09/22/17 09/22/17 10:30 16:35 19:49 WBC RBC Hgb Hct MCV MCH MCHC RDW Plt Count MPV Immature Gran % Seg Neutrophils % Lymphocytes % Monocytes % Eosinophils % Basophils % Neutrophils # Lymphocytes # Monocytes # Eosinophils # Basophils # Platelet Estimate Immature Plt Fraction Poikilocytosis Anisocytosis Sodium Potassium Chloride Carbon Dioxide BUN Creatinine Est GFR ( Amer) Est GFR (Non-Af Amer) BUN/Creatinine Ratio Glucose POC Glucose 123 H 134 H Calculated Osmolality Calcium Phosphorus Magnesium Iron % Saturation Transferrin Ferritin Vitamin B12 Folate Blood Type A POSITIVE Antibody Screen NEGATIVE Crossmatch See Detail 09/22/17 09/23/17 09/23/17 23:04 02:42 06:43 WBC RBC Hgb Hct MCV MCH MCHC RDW Plt Count MPV Immature Gran % Seg Neutrophils % Lymphocytes % Monocytes % Eosinophils % Basophils % Neutrophils # Lymphocytes # Monocytes # Eosinophils # Basophils # Platelet Estimate Immature Plt Fraction Poikilocytosis Anisocytosis Sodium Potassium Chloride Carbon Dioxide BUN Creatinine Est GFR ( Amer) Est GFR (Non-Af Amer) BUN/Creatinine Ratio Glucose POC Glucose 137 H 153 H 146 H Calculated Osmolality Calcium Phosphorus Magnesium Iron % Saturation Transferrin Ferritin Vitamin B12 Folate Blood Type Antibody Screen Crossmatch 09/23/17 09/23/17 09/23/17 10:51 15:03 18:55 WBC RBC Hgb Hct MCV MCH MCHC RDW Plt Count MPV Immature Gran % Seg Neutrophils % Lymphocytes % Monocytes % Eosinophils % Basophils % Neutrophils # Lymphocytes # Monocytes # Eosinophils # Basophils # Platelet Estimate Immature Plt Fraction Poikilocytosis Anisocytosis Sodium Potassium Chloride Carbon Dioxide BUN Creatinine Est GFR ( Amer) Est GFR (Non-Af Amer) BUN/Creatinine Ratio Glucose POC Glucose 123 H 102 H 136 H Calculated Osmolality Calcium Phosphorus Magnesium Iron % Saturation Transferrin Ferritin Vitamin B12 Folate Blood Type Antibody Screen Crossmatch 09/24/17 09/24/17 09/24/17 02:58 05:00 05:00 WBC RBC Hgb Hct MCV MCH MCHC RDW Plt Count MPV Immature Gran % Seg Neutrophils % Lymphocytes % Monocytes % Eosinophils % Basophils % Neutrophils # Lymphocytes # Monocytes # Eosinophils # Basophils # Platelet Estimate Immature Plt Fraction Poikilocytosis Anisocytosis Sodium Potassium Chloride Carbon Dioxide BUN Creatinine Est GFR ( Amer) Est GFR (Non-Af Amer) BUN/Creatinine Ratio Glucose POC Glucose 130 H Calculated Osmolality Calcium Phosphorus Magnesium Iron 50 % Saturation 44 Transferrin 82 L Ferritin 1359 H Vitamin B12 940 H Folate 38.3 H Blood Type Antibody Screen Crossmatch 09/24/17 09/24/17 09/24/17 05:00 05:00 05:00 WBC 4.2 L RBC 2.51 L Hgb 7.2 L Hct 23.1 L MCV 92.0 MCH 28.7 MCHC 31.2 L RDW 18.3 H Plt Count 67 L MPV 11.9 Immature Gran % 1.4 Seg Neutrophils % 71.1 Lymphocytes % 20.1 Monocytes % 4.6 Eosinophils % 2.6 Basophils % 0.2 Neutrophils # 3.0 Lymphocytes # 0.8 Monocytes # 0.2 Eosinophils # 0.1 Basophils # 0.0 Platelet Estimate Decreased L Immature Plt Fraction 4.8 Poikilocytosis 1+ A Anisocytosis 1+ A Sodium 130 L Potassium 3.9 Chloride 98 Carbon Dioxide 23 BUN 51 H D Creatinine 4.80 H Est GFR ( Amer) 11 L Est GFR (Non-Af Amer) 9 L BUN/Creatinine Ratio 11 Glucose 114 H POC Glucose Calculated Osmolality 285 Calcium 8.8 Phosphorus 3.0 Magnesium 2.1 Iron % Saturation Transferrin Ferritin Vitamin B12 Folate Blood Type Antibody Screen Crossmatch 09/24/17 09:55 WBC RBC Hgb Hct MCV MCH MCHC RDW Plt Count MPV Immature Gran % Seg Neutrophils % Lymphocytes % Monocytes % Eosinophils % Basophils % Neutrophils # Lymphocytes # Monocytes # Eosinophils # Basophils # Platelet Estimate Immature Plt Fraction Poikilocytosis Anisocytosis Sodium Potassium Chloride Carbon Dioxide BUN Creatinine Est GFR ( Amer) Est GFR (Non-Af Amer) BUN/Creatinine Ratio Glucose POC Glucose 134 H Calculated Osmolality Calcium Phosphorus Magnesium Iron % Saturation Transferrin Ferritin Vitamin B12 Folate Blood Type Antibody Screen Crossmatch - ABG Interpretation ABG results: PT/INR, D-dimer PT 13.7 Seconds (9.4-12.1) H 09/08/17 03:55 Consult Discharge Plan - Plan Referrals: Na Johansen, TYLER [Primary Care Provider] - 09/30/17 9:45 am ( ) Prescriptions: Acetylcysteine 10% 2 ml IH [id number] #30 inhsol Ipratropium/Albuterol Neb [Duoneb] 3 ml IH [id number] #30 inhsol Cefdinir [Omnicef] 300 mg PO BID 10 Days #20 capsule GuaiFENesin ER [Mucinex] 600 mg PO BID 5 Days #10 tbbp.12hr Nicotine Patch [Nicoderm] 21 mg TD DAILY #30 patch.td24
--- NOTE | 2017-09-24 16:14 | Internal Med Progress Note ---
Date of Encounter: 09/24/17 Time of Encounter: 13:25 - Subjective Interval history: Patient is a 71y/o female who was initially admitted for abd pain concerning for SBO, however SBO has been ruled out and surgery has signed off. Pt continues to have persistent abd pain, nausea, vomiting, unable to tolerate PO intake, requiring TPN and was found to have CT abd findings concernig for anterior wall gastric ulcer. s/p EGD and was found to have esophageal ulcers and chronic gastritis. Protonic and Carafate have been added. Patient seen and examined at bedside. s/p HD today and tolerated the HD well however reports of worsening weakness after dialysis. Tolerating clear liquid diet well and will continue to advance diet as tolerated. Noted to have drop in H&H and received one unit PRBC during hemodialysis - Assessment and plan (1) Nausea and vomiting Current Visit: Yes Status: Acute Assessment and plan: -etiology continues to be unclear -SBO ruled out via imaging -anterior wall gastric ulcer seen on repeat CT abd/pelvis -s/p EGD: esophageal ulcers and chronic gastritis -started on Protonix and Carafate -tolerating clear liquid diet better -reported to have a history of gastroparesis, will restart dose of reglan -advance diet as tolerated -continue TPN until patient able to tolerate appropriate amount of PO intake. continue to taper off TPN as her PO intake increases -continue supportive care with pain control and antiemetics Qualifiers: Vomiting type: unspecified Vomiting Intractability: non-intractable Qualified Code(s): R11.2 - Nausea with vomiting, unspecified (2) Colitis Current Visit: Yes Status: Resolved Assessment and plan: -on admission, colitis at splenic flexure--treated with IV flagyl and ciprofloxacin -surgery recommends no surgical intervention (3) COPD (chronic obstructive pulmonary disease) Current Visit: Yes Status: Chronic Assessment and plan: -continue supplemental O2 -continue albuterol, duoneb, symbicort Qualifiers: COPD type: emphysema Emphysema type: panlobular Qualified Code(s): J43.1 - Panlobular emphysema (4) Anemia Current Visit: Yes Status: Chronic Assessment and plan: -anemia in setting off ESRD -Received one unit of PRBC in hemodialysis today (09/24/17) -SCD for DVT ppx Qualifiers: Anemia type: unspecified type Qualified Code(s): D64.9 - Anemia, unspecified (5) ESRD (end stage renal disease) on dialysis Current Visit: Yes Status: Chronic Assessment and plan: -s/p HD today (09/24/17) (6) Atrial fibrillation Current Visit: Yes Status: Chronic Assessment and plan: -rate controlled with HR mid 70's to 90 -continue diltiazem CD -not on anticoagulation d/t risk of falls and h/o bleed Qualifiers: Atrial fibrillation type: chronic Qualified Code(s): I48.2 - Chronic atrial fibrillation (7) Hypothyroid Current Visit: Yes Status: Chronic Assessment and plan: -continue synthroid Qualifiers: Hypothyroidism type: unspecified Qualified Code(s): E03.9 - Hypothyroidism , unspecified (8) Tobacco abuse Current Visit: Yes Status: Chronic Assessment and plan: -continue nicoderm 21 mg transdermal Q24H - Constitutional Vitals: Temp Pulse Resp BP Pulse Ox 97.2 F L 80 18 114/36 94 09/24/17 12:50 09/24/17 10:45 09/24/17 12:50 09/24/17 12:50 09/24/17 07:56 General appearance: Present: cachectic, A&O X 3, no acute distress, underweight , answers questions appropriately - Head Head exam: Present: atraumatic, normocephalic - Eye Eye exam: Present: conjuntiva pink, sclera anicteric - Respiratory Respiratory exam: Absent: respiratory distress, wheezes (diffuse coarse breath sounds ) - Cardiovascular Cardiovascular exam: Present: irregular rhythm, +S1, +S2 - GI/Abdominal GI/Abdominal exam: Present: normal bowel sounds, soft, no peritoneal signs. Absent: distended, tenderness - Extremities Exam Extremities exam: Present: warm, radial pulses palpable and symmetrical. Absent : calf tenderness, pedal edema - Neurological Exam Neurological exam: Present: alert, oriented X3 Internal Medicine: Result - Labs CBC & Chem 7: 09/24/17 05:00 09/24/17 05:00 Labs: Short CBC 09/24/17 Range/Units 05:00 WBC 4.2 L (4.3-11.1) K/mcL Hgb 7.2 L (11.5-15.4) g/dL Hct 23.1 L (35.3-44.9) % Plt Count 67 L (140-400) K/mcL Neutrophils # 3.0 (1.6-8.9) K/mcL BMP 09/24/17 05:00 Sodium 130 L Potassium 3.9 Chloride 98 Carbon Dioxide 23 BUN 51 H D Creatinine 4.80 H Glucose 114 H Calcium 8.8 - ABG Interpretation ABG results: PT/INR, D-dimer PT 13.7 Seconds (9.4-12.1) H 09/08/17 03:55 Consult Discharge Plan - Plan Referrals: Na Johansen, TYLER [Primary Care Provider] - 09/30/17 9:45 am ( ) Prescriptions: Acetylcysteine 10% 2 ml IH [id number] #30 inhsol Ipratropium/Albuterol Neb [Duoneb] 3 ml IH [id number] #30 inhsol Cefdinir [Omnicef] 300 mg PO BID 10 Days #20 capsule GuaiFENesin ER [Mucinex] 600 mg PO BID 5 Days #10 tbbp.12hr Nicotine Patch [Nicoderm] 21 mg TD DAILY #30 patch.td24
--- NOTE | 2017-09-24 16:16 | Nephrology Progress Note ---
Date of Encounter: 09/24/17 Time of Encounter: 10:00 - Assessment and Plan (1) Anemia in CKD (chronic kidney disease) Current Visit: Yes Status: Chronic Hgb remains low, will transfuse today a unit pRBCs Continue iron supplements Qualifiers: Qualified Code(s): N18.6 - End stage renal disease; D63.1 - Anemia in chronic kidney disease; D63.1 - Anemia in chronic kidney disease; Z99.2 - Dependence on renal dialysis; Z99.2 - Dependence on renal dialysis; Z99.2 - Dependence on renal dialysis; Z99.2 - Dependence on renal dialysis (2) ESRD (end stage renal disease) on dialysis Current Visit: Yes Status: Chronic Continue HD with UF as tolerated Fluid gains concerning given TPN (3) Pneumonia Current Visit: Yes Status: Acute Continue anntibiotics per primary team Agree with pulm toilet as well Qualifiers: Qualified Code(s): J15.5 - Pneumonia due to Escherichia coli Subjective Principal diagnosis: ESRD Interval history: Interim noted, pt seen and examined on HD feeling fatigue. Objective - Vital Signs Vital signs: Vital Signs Temp Pulse Resp BP Pulse Ox 09/24/17 12:50 97.2 F L 18 114/36 09/24/17 12:30 98/38 09/24/17 12:15 109/76 09/24/17 12:00 109/76 09/24/17 11:45 91/45 09/24/17 11:30 117/55 09/24/17 11:15 100/42 09/24/17 11:00 115/34 09/24/17 10:45 97 F L 80 18 107/42 09/24/17 10:30 106/43 09/24/17 10:15 97 F L 80 17 99/36 09/24/17 10:00 97.1 F L 72 18 116/51 09/24/17 09:45 100/32 09/24/17 09:30 107/31 09/24/17 09:15 99/36 09/24/17 09:00 97.2 F L 18 122/45 09/24/17 07:56 16 94 09/24/17 06:45 97.9 F 80 16 101/43 98 09/24/17 03:35 17 97 09/24/17 03:25 97.5 F L 82 18 114/51 98 11/21/17 23:42 18 94 09/23/17 23:00 97.7 F 83 18 139/66 95 09/23/17 20:19 16 97 09/23/17 19:11 98.6 F 80 20 116/27 100 09/23/17 16:15 16 98 Intake and Output 09/24/17 09/24/17 09/24/17 07:59 15:59 23:59 Intake Total 2019 Output Total 3950 / 3950 Balance -193 / -1929 Intake: Oral 720 / 720 Blood Product 700 / 700 Rbcs Leuko Poor As-1 Unit 700 / 700 [id number] Intake, Rinseback and Flushes 600 / 600 Output: Urine 0 / 0 Total Dialysis (HD) Output 3950 / 3950 Other: Meal Lunch Percent of Meal Consumed 100% Weight 55.474 kg Blood Glucose* 127 151 Hemodialysis Net Fluid Removed 3000 (mL) Patient Weight 09/24/17 23:59 Weight 55.474 kg - General Appearance General appearance: Present: chronically ill, frail - Lab 09/24/17 05:00 09/24/17 05:00 Most recent lab results Calcium 8.8 mg/dL (8.6-10.8) 09/24/17 05:00 Phosphorus 3.0 mg/dL (2.3-4.7) 09/24/17 05:00 Magnesium 2.1 mg/dL (1.6-2.6) 09/24/17 05:00 Consult Discharge Plan - Plan Referrals: Na Johansen CNP [Primary Care Provider] - 09/30/17 9:45 am ( ) Prescriptions: Acetylcysteine 10% 2 ml IH [id number] #30 inhsol Ipratropium/Albuterol Neb [Duoneb] 3 ml IH [id number] #30 inhsol Cefdinir [Omnicef] 300 mg PO BID 10 Days #20 capsule GuaiFENesin ER [Mucinex] 600 mg PO BID 5 Days #10 tbbp.12hr Nicotine Patch [Nicoderm] 21 mg TD DAILY #30 patch.td24
[2017-09-24] MEDS ORDERED: Clinimix 5%-20% SOLUTION 2,000 ML with MVI, adult with vitamin K 10 ML, Sodium Acetat... IVC SCH (17:00)
[2017-09-24] MEDS: Acetaminophen 325 MG TABLET PO PRN (20:15)
[2017-09-25] MEDS: *HR* OxyCODONE Immed Rel 5 MG TABLET PO PRN ×4 (00:45→22:05)
[2017-09-25 04:08] LABS: Basophils % 0.2 %; Hemoglobin 8.2 g/dL (11.5-15.4)
[2017-09-25 04:10] LABS: Eosinophils # 0.1 K/mcL (0.0-0.6); Hematocrit 25.7 % (35.3-44.9); Immature Granulocytes % 1.6 % (0-4); Immature Platelets 3.3 % (1.1-6.1); Lymphocytes # 0.8 K/mcL (0.6-4.6); Lymphocytes % 17.5 %; Mean Corpuscular HGB Conc 31.9 g/dL (31.6-35.5); Mean Corpuscular Volume 90.8 fL (83.0-100.0); Mean Platelet Volume 11.9 fL (9.4-12.4); Monocytes # 0.2 K/mcL (0.0-1.3); Monocytes % 4.8 %; Neutrophils # 3.2 K/mcL (1.6-8.9); Red Blood Count 2.83 M/mcL (3.82-4.97); Red Cell Distribution Width 18.1 % (11.5-14.5); Segmented Neutrophils % 72.9 %
[2017-09-25 04:24] LABS: Calcium 8.8 mg/dL (8.6-10.8); Magnesium 1.8 mg/dL (1.6-2.6); Phosphorous 1.7 mg/dL (2.3-4.7); Potassium 3.5 mEq/L (3.5-4.5)
[2017-09-25 04:32] LABS: Platelet Count 68 K/mcL (140-400)
[2017-09-25] MEDS: Insulin LISPRO 300 UNITS/3 ML VIAL SQ SCH ×4 (04:33→17:04)
[2017-09-25 04:35] LABS: Anisocytosis 1+ (Not Present); Hypochromasia Present (Not Present); Microcytosis Present (Not Present); Platelet Estimate Decreased (Normal)
[2017-09-25] MEDS: Ipratropium/Albuterol Neb 3 ML IH SCH ×6 (04:54→23:18)
[2017-09-25] MEDS: Ondansetron 4 MG/2 ML VIAL IVP SCH ×3 (05:58→17:01)
[2017-09-25] MEDS: Budesonide/Formoterol 80/4.5 MDI IH SCH ×2 (07:51→19:52)
[2017-09-25] MEDS: Cholecalciferol (D-3) 1,000 UNIT TABLET PO SCH (09:36)
[2017-09-25] MEDS: Sucralfate 1 GM TABLET PO SCH ×4 (09:36→22:04)
[2017-09-25] MEDS: Calcium Acetate 667 MG CAPSULE PO SCH ×3 (09:36→17:00)
[2017-09-25] MEDS: Lactobacillus 1 EACH CAP.SPRINK PO SCH ×2 (09:36→22:04)
[2017-09-25] MEDS: Diltiazem CD (24hr) 120 MG CAPSULE PO SCH (09:37)
[2017-09-25] MEDS: Nicotine 21 MG PATCH.TD24 TD SCH (09:37)
[2017-09-25] MEDS: Renal Vitamin 1 MG CAPSULE PO SCH (09:38)
--- NOTE | 2017-09-25 09:52 | Internal Med Progress Note ---
<Gifty Shen - Last Filed: 09/25/17 14:44> Date of Encounter: 09/25/17 Time of Encounter: 13:00 - Assessment and plan (1) Nausea and vomiting Current Visit: Yes Status: Acute Assessment and plan: -etiology continues to be unclear -SBO ruled out via imaging -anterior wall gastric ulcer seen on repeat CT abd/pelvis -holding protonix d/t worsening thrombocytopenia -continue supportive care with pain control and antiemetics -clear liquids as tolerated, on TPN; eventually renal diet when able to tolerate -GI consulted, will have EGD today Qualifiers: Vomiting type: unspecified Vomiting Intractability: non-intractable Qualified Code(s): R11.2 - Nausea with vomiting, unspecified (2) Colitis Current Visit: Yes Status: Acute Assessment and plan: -on admission, colitis at splenic flexure--treated with IV flagyl and ciprofloxacin -surgery recommends no surgical intervention (3) COPD (chronic obstructive pulmonary disease) Current Visit: Yes Status: Chronic Assessment and plan: -continue supplemental O2 -continue albuterol, duoneb, symbicort Qualifiers: COPD type: emphysema Emphysema type: panlobular Qualified Code(s): J43.1 - Panlobular emphysema (4) Anemia Current Visit: Yes Status: Chronic Assessment and plan: -anemia in setting of CKD stage IV -transfusion 1 unit prbc on 09.21.17 (Hgb was 6.8) -continue Aranesp per nephrology, goal Hgb of 10 to 11 -H/H stable since last prbc transfusion; Hgb 7.5 and Hct 23.9 today Qualifiers: Anemia type: unspecified type Qualified Code(s): D64.9 - Anemia, unspecified (5) ESRD (end stage renal disease) on dialysis Current Visit: Yes Status: Chronic Assessment and plan: -will receive HD tomorrow -continue to avoid nephrotoxins when able (6) Atrial fibrillation Current Visit: Yes Status: Chronic Assessment and plan: -rate controlled with HR mid 70's to 90 -continue diltiazem CD -not on anticoagulation d/t risk of falls and h/o bleed Qualifiers: Atrial fibrillation type: chronic Qualified Code(s): I48.2 - Chronic atrial fibrillation (7) Hypothyroid Current Visit: Yes Status: Chronic Assessment and plan: -continue synthroid Qualifiers: Hypothyroidism type: unspecified Qualified Code(s): E03.9 - Hypothyroidism , unspecified (8) Tobacco abuse Current Visit: Yes Status: Chronic Assessment and plan: -continue nicoderm 21 mg transdermal Q24H - Subjective Interval history: Patient seen and examined at bedside this morning. Patient sitting up in bed. Complaints today include diffuse abdominal pain and chest pain from coughing. - Constitutional Vitals: Temp Pulse Resp BP Pulse Ox 97.9 F 86 18 102/38 97 09/25/17 07:36 09/25/17 07:36 09/25/17 07:54 09/25/17 07:36 09/25/17 07:54 General appearance: Present: cachectic, A&O X 3, no acute distress, underweight , answers questions appropriately Internal Medicine: Result - Labs CBC & Chem 7: 09/25/17 03:50 09/25/17 03:50 Labs: Short CBC 09/25/17 Range/Units 03:50 WBC 4.4 (4.3-11.1) K/mcL Hgb 8.2 L (11.5-15.4) g/dL Hct 25.7 L (35.3-44.9) % Plt Count 68 L (140-400) K/mcL Neutrophils # 3.2 (1.6-8.9) K/mcL BMP 09/25/17 03:50 Sodium 133 L Potassium 3.5 Chloride 99 Carbon Dioxide 29 BUN 31 H D Creatinine 2.84 H Glucose 131 H Calcium 8.8 - ABG Interpretation ABG results: PT/INR, D-dimer PT 13.7 Seconds (9.4-12.1) H 09/08/17 03:55 Consult Discharge Plan - Plan Referrals: Na Johansen, LEGAL ADMINISTRATOR [Primary Care Provider] - 09/30/17 9:45 am ( ) Prescriptions: Acetylcysteine 10% 2 ml IH [id number] #30 inhsol Ipratropium/Albuterol Neb [Duoneb] 3 ml IH [id number] #30 inhsol Cefdinir [Omnicef] 300 mg PO BID 10 Days #20 capsule GuaiFENesin ER [Mucinex] 600 mg PO BID 5 Days #10 tbbp.12hr Nicotine Patch [Nicoderm] 21 mg TD DAILY #30 patch.td24 <Lion Topete - Last Filed: 09/25/17 15:12> Date of Encounter: 09/25/17 - Constitutional Vitals: Temp Pulse Resp BP Pulse Ox 97.5 F L 85 18 132/52 98 09/25/17 10:48 09/25/17 10:48 09/25/17 11:18 09/25/17 10:48 09/25/17 11:18 Internal Medicine: Result - Labs CBC & Chem 7: 09/25/17 03:50 09/25/17 03:50 Labs: Short CBC 09/25/17 Range/Units 03:50 WBC 4.4 (4.3-11.1) K/mcL Hgb 8.2 L (11.5-15.4) g/dL Hct 25.7 L (35.3-44.9) % Plt Count 68 L (140-400) K/mcL Neutrophils # 3.2 (1.6-8.9) K/mcL BMP 09/25/17 03:50 Sodium 133 L Potassium 3.5 Chloride 99 Carbon Dioxide 29 BUN 31 H D Creatinine 2.84 H Glucose 131 H Calcium 8.8 - ABG Interpretation ABG results: PT/INR, D-dimer PT 13.7 Seconds (9.4-12.1) H 09/08/17 03:55 - Attending Attestation I independently interviewed and examined this pt. I agree with the findings, assessment and plan of Dr. Amaro, internet marketing manager. continue to advance diet as tolerated with hopes to wean off tpn. All else as above. Gen surg has signed off. Next HD is tomorrow.
--- NOTE | 2017-09-25 15:21 | Nephrology Progress Note ---
Date of Encounter: 09/25/17 - Assessment and Plan (1) Anemia in CKD (chronic kidney disease) Current Visit: Yes Status: Chronic Hgb remains low, will transfuse today a unit pRBCs Continue iron supplements Qualifiers: Chronic kidney disease stage: on chronic dialysis Qualified Code(s): N18.6 - End stage renal disease; D63.1 - Anemia in chronic kidney disease; D63.1 - Anemia in chronic kidney disease; Z99.2 - Dependence on renal dialysis; Z99.2 - Dependence on renal dialysis; Z99.2 - Dependence on renal dialysis; Z99.2 - Dependence on renal dialysis (2) ESRD (end stage renal disease) on dialysis Current Visit: Yes Status: Chronic Continue HD with UF as tolerated Fluid gains concerning given TPN (3) Pneumonia Current Visit: Yes Status: Acute Continue anntibiotics per primary team Agree with pulm toilet as well Qualifiers: Pneumonia type: due to Escherichia coli Laterality: left Lung location: lower lobe of lung Qualified Code(s): J15.5 - Pneumonia due to Escherichia coli Subjective Principal diagnosis: ESRD Interval history: Interim noted, pt seen and examined on HD feeling fatigue. Objective - Vital Signs Vital signs: Vital Signs Temp Pulse Resp BP Pulse Ox 09/25/17 11:18 18 98 09/25/17 10:48 97.5 F L 85 16 132/52 99 09/25/17 07:54 18 97 09/25/17 07:36 97.9 F 86 16 102/38 97 09/25/17 04:54 16 96 09/25/17 04:24 98.2 F 83 16 119/55 96 09/24/17 23:24 15 97 09/24/17 23:07 98.6 F 91 16 120/62 97 09/24/17 20:30 16 98 09/24/17 18:48 98.4 F 83 16 116/51 97 09/24/17 17:34 97.8 F 87 16 126/55 100 09/24/17 16:49 16 96 Intake and Output 09/24/17 09/25/17 09/25/17 23:59 07:59 15:59 Intake Total 0 / 0 0 / 0 360 / 360 Output Total 300 / 300 Balance 0 / 0 0 / 0 60 / 60 Intake: Oral 0 / 0 0 / 0 360 / 360 Output: Stool 300 / 300 Other: Meal Dinner Lunch Percent of Meal Consumed 100% 100% Stool Size Moderate Stool Consistency loose Stool Characteristics Normal for Patient Stool Color Brown Green Weight 53.479 kg Blood Glucose* 125 127 144 Patient Weight 09/25/17 23:59 Weight 53.479 kg - Lab 09/25/17 03:50 09/25/17 03:50 Most recent lab results Calcium 8.8 mg/dL (8.6-10.8) 09/25/17 03:50 Phosphorus 1.7 mg/dL (2.3-4.7) L 09/25/17 03:50 Magnesium 1.8 mg/dL (1.6-2.6) 09/25/17 03:50 Consult Discharge Plan - Plan Referrals: Na Johansen CNP [Primary Care Provider] - 09/30/17 9:45 am ( ) Prescriptions: Acetylcysteine 10% 2 ml IH [id number] #30 inhsol Ipratropium/Albuterol Neb [Duoneb] 3 ml IH [id number] #30 inhsol Cefdinir [Omnicef] 300 mg PO BID 10 Days #20 capsule GuaiFENesin ER [Mucinex] 600 mg PO BID 5 Days #10 tbbp.12hr Nicotine Patch [Nicoderm] 21 mg TD DAILY #30 patch.td24
[2017-09-25] MEDS ORDERED: Clinimix 5%-20% SOLUTION 2,000 ML with MVI, adult with vitamin K 10 ML, Sodium Acetat... IVC SCH (17:00)
[2017-09-25] MEDS: GuaiFENesin Liq 200 MG/10 ML UDC PO SCH (17:01)
[2017-09-25] MEDS: Acetaminophen 325 MG TABLET PO PRN (17:15)
[2017-09-26] MEDS: Insulin LISPRO 300 UNITS/3 ML VIAL SQ SCH ×7 (00:02→22:15)
[2017-09-26] MEDS: GuaiFENesin Liq 200 MG/10 ML UDC PO SCH ×4 (00:04→19:38)
[2017-09-26] MEDS: Ondansetron 4 MG/2 ML VIAL IVP SCH ×4 (00:04→19:37)
[2017-09-26] MEDS: *HR* OxyCODONE Immed Rel 5 MG TABLET PO PRN ×2 (04:22→15:09)
[2017-09-26 04:46] LABS: Basophils % 0.2 %; Lymphocytes # 0.9 K/mcL (0.6-4.6); Lymphocytes % 20.8 %; Mean Corpuscular Hemoglobin 28.8 pg (28.0-33.3)
[2017-09-26 04:48] LABS: Eosinophils # 0.1 K/mcL (0.0-0.6); Eosinophils % 2.5 %; Hematocrit 26.3 % (35.3-44.9); Hemoglobin 8.3 g/dL (11.5-15.4); Immature Granulocytes % 0.9 % (0-4); Immature Platelets 4.3 % (1.1-6.1); Mean Corpuscular HGB Conc 31.6 g/dL (31.6-35.5); Mean Corpuscular Volume 91.3 fL (83.0-100.0); Mean Platelet Volume 11.6 fL (9.4-12.4); Monocytes # 0.2 K/mcL (0.0-1.3); Monocytes % 5.6 %; Red Blood Count 2.88 M/mcL (3.82-4.97); Red Cell Distribution Width 17.7 % (11.5-14.5)
[2017-09-26 04:57] LABS: Calcium 9.3 mg/dL (8.6-10.8); Magnesium 1.8 mg/dL (1.6-2.6); Phosphorous 1.7 mg/dL (2.3-4.7); Platelet Count 76 K/mcL (140-400); Potassium 3.6 mEq/L (3.5-4.5)
[2017-09-26] MEDS: Ipratropium/Albuterol Neb 3 ML IH SCH ×6 (05:10→23:56)
[2017-09-26] MEDS ORDERED: 0.9 % Sodium Chloride 250 ML IVC PRN (08:13)
--- NOTE | 2017-09-26 08:42 | Internal Med Progress Note ---
<Gifty Shen - Last Filed: 09/26/17 08:50> Date of Encounter: 09/26/17 - Assessment and plan (1) Nausea and vomiting Current Visit: Yes Status: Acute Qualifiers: Vomiting type: unspecified Vomiting Intractability: non-intractable Qualified Code(s): R11.2 - Nausea with vomiting, unspecified (2) Colitis Current Visit: Yes Status: Acute (3) COPD (chronic obstructive pulmonary disease) Current Visit: Yes Status: Chronic Qualifiers: COPD type: emphysema Emphysema type: panlobular Qualified Code(s): J43.1 - Panlobular emphysema (4) Anemia Current Visit: Yes Status: Chronic Qualifiers: Anemia type: unspecified type Qualified Code(s): D64.9 - Anemia, unspecified (5) ESRD (end stage renal disease) on dialysis Current Visit: Yes Status: Chronic (6) Atrial fibrillation Current Visit: Yes Status: Chronic Qualifiers: Atrial fibrillation type: chronic Qualified Code(s): I48.2 - Chronic atrial fibrillation (7) Hypothyroid Current Visit: Yes Status: Chronic Qualifiers: Hypothyroidism type: unspecified Qualified Code(s): E03.9 - Hypothyroidism , unspecified (8) Tobacco abuse Current Visit: Yes Status: Chronic - Subjective Interval history: Patient seen and examined at bedside this morning. Patient sitting up in bed. Complaints today include diffuse abdominal pain and chest pain from coughing. - Constitutional Vitals: Temp Pulse Resp BP Pulse Ox 98.4 F 78 17 125/68 98 09/26/17 05:06 09/26/17 05:06 09/26/17 05:06 09/26/17 05:06 09/26/17 05:06 General appearance: Present: cachectic, A&O X 3, no acute distress, underweight , answers questions appropriately Internal Medicine: Result - Labs CBC & Chem 7: 09/26/17 04:30 09/26/17 04:30 Labs: Short CBC 09/26/17 Range/Units 04:30 WBC 4.3 (4.3-11.1) K/mcL Hgb 8.3 L (11.5-15.4) g/dL Hct 26.3 L (35.3-44.9) % Plt Count 76 L (140-400) K/mcL Neutrophils # 3.0 (1.6-8.9) K/mcL BMP 09/26/17 04:30 Sodium 132 L Potassium 3.6 Chloride 100 Carbon Dioxide 25 BUN 54 H D Creatinine 4.06 H Glucose 107 H Calcium 9.3 - ABG Interpretation ABG results: PT/INR, D-dimer PT 13.7 Seconds (9.4-12.1) H 09/08/17 03:55 Consult Discharge Plan - Plan Referrals: Na Johansen, STATION WORKER [Primary Care Provider] - 09/30/17 9:45 am ( ) Prescriptions: Acetylcysteine 10% 2 ml IH [id number] #30 inhsol Ipratropium/Albuterol Neb [Duoneb] 3 ml IH [id number] #30 inhsol Cefdinir [Omnicef] 300 mg PO BID 10 Days #20 capsule GuaiFENesin ER [Mucinex] 600 mg PO BID 5 Days #10 tbbp.12hr Nicotine Patch [Nicoderm] 21 mg TD DAILY #30 patch.td24 <Lion Topete - Last Filed: 09/26/17 18:28> Date of Encounter: 09/26/17 Time of Encounter: 14:00 - Constitutional Vitals: Temp Pulse Resp BP Pulse Ox 97.1 F L 78 18 98/41 99 09/26/17 14:41 09/26/17 05:06 09/26/17 16:03 09/26/17 14:41 09/26/17 16:03 Internal Medicine: Result - Labs CBC & Chem 7: 09/26/17 04:30 09/26/17 04:30 Labs: Short CBC 09/26/17 Range/Units 04:30 WBC 4.3 (4.3-11.1) K/mcL Hgb 8.3 L (11.5-15.4) g/dL Hct 26.3 L (35.3-44.9) % Plt Count 76 L (140-400) K/mcL Neutrophils # 3.0 (1.6-8.9) K/mcL BMP 09/26/17 04:30 Sodium 132 L Potassium 3.6 Chloride 100 Carbon Dioxide 25 BUN 54 H D Creatinine 4.06 H Glucose 107 H Calcium 9.3 - ABG Interpretation ABG results: PT/INR, D-dimer PT 13.7 Seconds (9.4-12.1) H 09/08/17 03:55 - Impressions Impressions KUB X-Ray 09/26/17 13:06 IMPRESSION: No evidence of bowel obstruction. D/ / Anthony Basilio MD / Anthony Basilio MD Interpreting Provider: Anthony Basilio MD - Attending Attestation I performed an independent history and exam of this patient. I agree with the findings, assessment, plan of Dr. Amaro, internet sourcer. Patient continues to improve. We are slowly advancing her diet. She still has some abdominal pain but a abdominal x-ray shows no evidence of small bowel obstruction. She continues on proton pump inhibitor for her gastritis, likely the cause of her abdominal pain. We will also encourage increased activity. All else was outlined above.
[2017-09-26] MEDS: Nicotine 21 MG PATCH.TD24 TD SCH (10:19)
[2017-09-26] MEDS: Lactobacillus 1 EACH CAP.SPRINK PO SCH ×2 (10:20→22:12)
[2017-09-26] MEDS: Sucralfate 1 GM TABLET PO SCH ×4 (10:20→22:13)
[2017-09-26] MEDS: Cholecalciferol (D-3) 1,000 UNIT TABLET PO SCH (10:20)
[2017-09-26] MEDS: Renal Vitamin 1 MG CAPSULE PO SCH (10:21)
[2017-09-26] MEDS: Calcium Acetate 667 MG CAPSULE PO SCH (10:32)
[2017-09-26] MEDS: Budesonide/Formoterol 80/4.5 MDI IH SCH ×2 (11:48→19:30)
--- NOTE | 2017-09-26 13:26 | Event Note ---
Date of Encounter: 09/26/17 Time of Encounter: 13:00 Patient had HD today and complains of weakness. She is alert and oriented. She continues to desire aggressive care during hospital stay. She confirms full code status and has delayed completing her POA or living will forms but desires her son to be POA. Nausea has improved with Reglan and Zofran and pain her pain is managed by Oxycodone. Patient EGD revealed chronic gastritis and esophageal ulcers now being treated with PPIs. Palliative care will sign-off for now. Please call with any additional needs.
[2017-09-26] MEDS ORDERED: 0.9 % Sodium Chloride 2,000 ML ONE (13:48)
[2017-09-26] MEDS: Diltiazem CD (24hr) 120 MG CAPSULE PO SCH (15:08)
[2017-09-26] MEDS ORDERED: Clinimix 5%-20% SOLUTION 2,000 ML with MVI, adult with vitamin K 10 ML, Sodium Acetat... IVC SCH (17:00)
--- NOTE | 2017-09-26 17:35 | Nephrology Progress Note ---
Date of Encounter: 09/26/17 Time of Encounter: 11:00 - Assessment and Plan (1) Anemia in CKD (chronic kidney disease) Current Visit: Yes Status: Chronic Hgb remains low but stable in the 8.0s Continue iron supplements Qualifiers: Chronic kidney disease stage: on chronic dialysis Qualified Code(s): N18.6 - End stage renal disease; D63.1 - Anemia in chronic kidney disease; D63.1 - Anemia in chronic kidney disease; Z99.2 - Dependence on renal dialysis; Z99.2 - Dependence on renal dialysis; Z99.2 - Dependence on renal dialysis; Z99.2 - Dependence on renal dialysis (2) ESRD (end stage renal disease) on dialysis Current Visit: Yes Status: Chronic Continue HD with UF as tolerated Fluid gains concerning given TPN Will stop phos binders for now given low level at 1.7 and advised increased phos in TPN (3) Pneumonia Current Visit: Yes Status: Acute Continue antibiotics per primary team Agree with pulm toilet as well Qualifiers: Pneumonia type: due to Escherichia coli Laterality: left Lung location: lower lobe of lung Qualified Code(s): J15.5 - Pneumonia due to Escherichia coli Subjective Principal diagnosis: ESRD Interval history: Interim noted, pt seen and examined on HD resting but arousable Objective - Vital Signs Vital signs: Vital Signs Temp Pulse Resp BP Pulse Ox 09/26/17 16:03 18 99 09/26/17 14:41 97.1 F L 18 98/41 09/26/17 14:25 90/40 09/26/17 13:55 84/40 09/26/17 13:25 93/41 09/26/17 12:55 91/36 09/26/17 12:25 89/37 09/26/17 11:55 96/42 09/26/17 11:25 109/40 09/26/17 10:55 97.9 F 18 102/41 09/26/17 08:45 18 98 09/26/17 05:06 98.4 F 78 17 125/68 98 09/25/17 23:50 98.3 F 72 17 122/70 100 09/25/17 23:18 16 99 09/25/17 19:52 18 99 09/25/17 19:08 97.7 F 84 16 125/55 100 Intake and Output 09/26/17 09/26/17 09/26/17 07:59 15:59 23:59 Intake Total 600 / 600 Output Total 2600 / 2600 Balance -1999 Intake: Oral 0 / 0 Intake, Rinseback and Flushes 600 / 600 Output: Urine 0 / 0 Total Dialysis (HD) Output 2600 / 2600 Other: Blood Glucose* 153 145 151 Hemodialysis Net Fluid Removed 1999 (mL) - Lab 09/26/17 04:30 09/26/17 04:30 Most recent lab results Calcium 9.3 mg/dL (8.6-10.8) 09/26/17 04:30 Phosphorus 1.7 mg/dL (2.3-4.7) L 09/26/17 04:30 Magnesium 1.8 mg/dL (1.6-2.6) 09/26/17 04:30 Consult Discharge Plan - Plan Referrals: Na Johansen, TYLER [Primary Care Provider] - 09/30/17 9:45 am ( ) Prescriptions: Acetylcysteine 10% 2 ml IH [id number] #30 inhsol Ipratropium/Albuterol Neb [Duoneb] 3 ml IH [id number] #30 inhsol Cefdinir [Omnicef] 300 mg PO BID 10 Days #20 capsule GuaiFENesin ER [Mucinex] 600 mg PO BID 5 Days #10 tbbp.12hr Nicotine Patch [Nicoderm] 21 mg TD DAILY #30 patch.td24
[2017-09-27] MEDS ORDERED: 0.9 % Sodium Chloride 250 ML IVC ONE (00:52)
[2017-09-27] MEDS: GuaiFENesin Liq 200 MG/10 ML UDC PO SCH ×4 (00:55→18:24)
[2017-09-27] MEDS: Ondansetron 4 MG/2 ML VIAL IVP SCH ×4 (00:55→18:25)
[2017-09-27] MEDS: Insulin LISPRO 300 UNITS/3 ML VIAL SQ SCH ×5 (01:00→18:51)
[2017-09-27] MEDS: Ipratropium/Albuterol Neb 3 ML IH SCH ×5 (04:04→20:07)
[2017-09-27 04:52] LABS: Calcium 8.8 mg/dL (8.6-10.8); Magnesium 1.5 mg/dL (1.6-2.6); Potassium 3.4 mEq/L (3.5-4.5)
[2017-09-27 05:08] LABS: Phosphorous 0.7 mg/dL (2.3-4.7)
[2017-09-27] MEDS: Budesonide/Formoterol 80/4.5 MDI IH SCH ×2 (07:58→20:07)
[2017-09-27] MEDS: *HR* OxyCODONE Immed Rel 5 MG TABLET PO PRN ×2 (10:59→18:25)
[2017-09-27] MEDS: Cholecalciferol (D-3) 1,000 UNIT TABLET PO SCH (11:00)
[2017-09-27] MEDS: Renal Vitamin 1 MG CAPSULE PO SCH (11:01)
[2017-09-27] MEDS: Nicotine 21 MG PATCH.TD24 TD SCH (11:01)
[2017-09-27] MEDS: Diltiazem CD (24hr) 120 MG CAPSULE PO SCH (11:01)
[2017-09-27] MEDS: Lactobacillus 1 EACH CAP.SPRINK PO SCH ×2 (11:01→21:25)
[2017-09-27] MEDS: Sucralfate 1 GM TABLET PO SCH ×4 (11:01→21:25)
[2017-09-27 14:11] LABS: Eosinophils # 0.1 K/mcL (0.0-0.6); Eosinophils % 1.8 %; Hematocrit 24.6 % (35.3-44.9); Hemoglobin 7.8 g/dL (11.5-15.4); Immature Granulocytes % 0.7 % (0-4); Lymphocytes # 0.7 K/mcL (0.6-4.6); Lymphocytes % 15.6 %; Mean Corpuscular HGB Conc 31.7 g/dL (31.6-35.5); Mean Corpuscular Hemoglobin 29.1 pg (28.0-33.3); Mean Corpuscular Volume 91.8 fL (83.0-100.0); Mean Platelet Volume 11.2 fL (9.4-12.4); Monocytes # 0.3 K/mcL (0.0-1.3); Monocytes % 5.7 %; Neutrophils # 3.5 K/mcL (1.6-8.9); Red Blood Count 2.68 M/mcL (3.82-4.97); Red Cell Distribution Width 17.6 % (11.5-14.5); Segmented Neutrophils % 76.2 %
[2017-09-27 14:14] LABS: Platelet Count 83 K/mcL (140-400)
--- NOTE | 2017-09-27 16:50 | Event Note ---
Date of Encounter: 09/27/17 Time of Encounter: 11:30 I performed an independent history and exam of this patient. I agree with the findings, assessment, plan of Dr. Amaro, promotions intern. Patient continues to improve. We are continuing to advance her diet, I discussed the case with nutrition and we are slowly weaning her TPN. Frank pain is improved. We will increase activity today. It is unclear as of yet if patient will be able to go home versus needing a rehabilitation facility. All else as outlined above in Dr. Amaro's note.
[2017-09-27] MEDS ORDERED: Potassium Chloride Elixir 20 MEQ/15 ML UDC PO ONE (16:51)
--- NOTE | 2017-09-27 16:54 | Nephrology Progress Note ---
Date of Encounter: 09/27/17 - Assessment and Plan (1) Anemia in CKD (chronic kidney disease) Current Visit: Yes Status: Chronic Hgb remains low but fairly stable in the 8.0s/high 7.0s Continue iron supplements Qualifiers: Chronic kidney disease stage: on chronic dialysis Qualified Code(s): N18.6 - End stage renal disease; D63.1 - Anemia in chronic kidney disease; D63.1 - Anemia in chronic kidney disease; Z99.2 - Dependence on renal dialysis; Z99.2 - Dependence on renal dialysis; Z99.2 - Dependence on renal dialysis; Z99.2 - Dependence on renal dialysis (2) ESRD (end stage renal disease) on dialysis Current Visit: Yes Status: Chronic s/p HD yesterday, next HD planned for friday phos binders topped yesterday but needs repletin. discussed with primary team neutraphos tid for 2 days advised Replete magnesium as well (3) Pneumonia Current Visit: Yes Status: Acute Continue antibiotics per primary team Agree with pulm toilet as well Qualifiers: Pneumonia type: due to Escherichia coli Laterality: left Lung location: lower lobe of lung Qualified Code(s): J15.5 - Pneumonia due to Escherichia coli Subjective Principal diagnosis: ESRD Interval history: Pt seen and examined tolerating po inatke with TPN now off. No new complaints Objective - Vital Signs Vital signs: Vital Signs Temp Pulse Resp BP Pulse Ox 09/27/17 16:33 16 96 09/27/17 12:14 98.1 F 89 14 113/48 09/27/17 11:20 16 100 09/27/17 10:58 98.0 F 85 16 110/45 98 09/27/17 07:59 16 98 09/27/17 06:39 98.0 F 85 16 110/45 98 09/27/17 04:04 19 99 09/27/17 03:23 99 F 89 16 90/43 98 09/26/17 23:56 16 96 09/26/17 23:46 99.2 F 93 16 85/55 94 09/26/17 19:34 16 95 09/26/17 19:26 99.0 F 83 16 93/44 99 Intake and Output 09/27/17 09/27/17 09/27/17 07:59 15:59 23:59 Intake Total 240 / 240 Balance 240 / 240 Intake: Oral 240 / 240 Other: Meal Breakfast Percent of Meal Consumed 60% Weight 52.707 kg Blood Glucose* 129 164 Patient Weight 09/27/17 23:59 Weight 52.707 kg - Lab 09/27/17 13:57 09/27/17 04:30 Most recent lab results Calcium 8.8 mg/dL (8.6-10.8) 09/27/17 04:30 Phosphorus 0.7 mg/dL (2.3-4.7) L* D 09/27/17 04:30 Magnesium 1.5 mg/dL (1.6-2.6) L 09/27/17 04:30 Consult Discharge Plan - Plan Referrals: Na Johansen, TYLER [Primary Care Provider] - 09/30/17 9:45 am ( ) Prescriptions: Acetylcysteine 10% 2 ml IH [id number] #30 inhsol Ipratropium/Albuterol Neb [Duoneb] 3 ml IH [id number] #30 inhsol Cefdinir [Omnicef] 300 mg PO BID 10 Days #20 capsule GuaiFENesin ER [Mucinex] 600 mg PO BID 5 Days #10 tbbp.12hr Nicotine Patch [Nicoderm] 21 mg TD DAILY #30 patch.td24
[2017-09-27] MEDS ORDERED: Clinimix 5%-20% SOLUTION 2,000 ML with MVI, adult with vitamin K 10 ML, Sodium Acetat... IVC SCH (17:00)
--- NOTE | 2017-09-27 22:24 | Internal Med Progress Note ---
Date of Encounter: 09/27/17 Time of Encounter: 15:00 - Assessment and plan (1) Nausea and vomiting Current Visit: Yes Status: Acute Assessment and plan: -improving -SBO ruled out via imaging -anterior wall gastric ulcer seen on repeat CT abd/pelvis -09.24.17 EGD shows chronic gastritis -continue roxycodone for pain management -continue carafate, omeprazole, phenergan -cardiac and ADA diet, no longer on TPN--tolerating PO intake well Qualifiers: Vomiting type: unspecified Vomiting Intractability: non-intractable Qualified Code(s): R11.2 - Nausea with vomiting, unspecified (2) Colitis Current Visit: Yes Status: Acute Assessment and plan: -on admission, colitis at splenic flexure--course of IV flagyl and ciprofloxacin completed -surgery recommends no surgical intervention (3) COPD (chronic obstructive pulmonary disease) Current Visit: Yes Status: Chronic Assessment and plan: -continue supplemental O2 -continue albuterol, duoneb, symbicort Qualifiers: COPD type: emphysema Emphysema type: panlobular Qualified Code(s): J43.1 - Panlobular emphysema (4) Anemia Current Visit: Yes Status: Chronic Assessment and plan: -chronic anemia in setting of CKD stage IV -Hgb remains low but fairly stable in the 8.0s/high 7.0s -Continue iron supplements Qualifiers: Anemia type: unspecified type Qualified Code(s): D64.9 - Anemia, unspecified (5) ESRD (end stage renal disease) on dialysis Current Visit: Yes Status: Chronic Assessment and plan: -MWF schedule for HD -continue to avoid nephrotoxins when able -Phos 0.7 this AM, phos-binders being held, will replace with neutra-phos 1pkt TID x2 days, and check level with morning labs (6) Atrial fibrillation Current Visit: Yes Status: Chronic Assessment and plan: -rate controlled with HR mid 70's to 90 -continue diltiazem CD -not on anticoagulation d/t risk of falls and h/o bleed Qualifiers: Atrial fibrillation type: chronic Qualified Code(s): I48.2 - Chronic atrial fibrillation (7) Hypothyroid Current Visit: Yes Status: Chronic Assessment and plan: -continue synthroid Qualifiers: Hypothyroidism type: unspecified Qualified Code(s): E03.9 - Hypothyroidism , unspecified (8) Tobacco abuse Current Visit: Yes Status: Chronic Assessment and plan: -continue nicoderm 21 mg transdermal Q24H - Subjective Interval history: Patient seen and examined at bedside. Continues to c/o abdominal pain she believes to be caused by a "hernia" located below her urostomy. Since starting guaifensin, pt's cough has been productive and she feels she is breathing better. - Constitutional Vitals: Temp Pulse Resp BP Pulse Ox 98.4 F 88 16 133/50 90 09/27/17 21:09 09/27/17 21:09 09/27/17 21:09 09/27/17 21:09 09/27/17 21:09 General appearance: Present: A&O X 3, pleasant, no acute distress, answers questions appropriately - Eye Eye exam: Present: EOMI, normal appearance - Respiratory Respiratory exam: Present: rhonchi. Absent: accessory muscle use, respiratory distress, wheezes - Cardiovascular Cardiovascular exam: Present: RRR, +S1, +S2 - GI/Abdominal GI/Abdominal exam: Present: normal bowel sounds, soft, tenderness (RLQ). Absent : distended, hernia (no palpable hernia-like masses surrounding urostomy), rigid - Extremities Exam Extremities exam: Absent: pedal edema ( pedal pulses equal) - Neurological Exam Neurological exam: Present: alert, oriented X3, no focal deficits Internal Medicine: Result - Labs CBC & Chem 7: 09/27/17 13:57 09/27/17 04:30 Labs: Short CBC 09/27/17 Range/Units 13:57 WBC 4.6 (4.3-11.1) K/mcL Hgb 7.8 L (11.5-15.4) g/dL Hct 24.6 L (35.3-44.9) % Plt Count 83 L (140-400) K/mcL Neutrophils # 3.5 (1.6-8.9) K/mcL BMP 09/27/17 04:30 Sodium 136 Potassium 3.4 L Chloride 102 Carbon Dioxide 26 BUN 30 H D Creatinine 2.53 H Glucose 114 H Calcium 8.8 - ABG Interpretation ABG results: PT/INR, D-dimer PT 13.7 Seconds (9.4-12.1) H 09/08/17 03:55 Consult Discharge Plan - Plan Referrals: Na Johansen CNP [Primary Care Provider] - 09/30/17 9:45 am ( ) Prescriptions: Acetylcysteine 10% 2 ml IH [id number] #30 inhsol Ipratropium/Albuterol Neb [Duoneb] 3 ml IH [id number] #30 inhsol Cefdinir [Omnicef] 300 mg PO BID 10 Days #20 capsule GuaiFENesin ER [Mucinex] 600 mg PO BID 5 Days #10 tbbp.12hr Nicotine Patch [Nicoderm] 21 mg TD DAILY #30 patch.td24
[2017-09-28] MEDS: Ipratropium/Albuterol Neb 3 ML IH SCH ×6 (00:14→20:55)
[2017-09-28] MEDS: GuaiFENesin Liq 200 MG/10 ML UDC PO SCH ×4 (00:53→18:44)
[2017-09-28] MEDS: *HR* OxyCODONE Immed Rel 5 MG TABLET PO PRN ×4 (00:53→18:45)
[2017-09-28] MEDS: Ondansetron 4 MG/2 ML VIAL IVP SCH ×4 (00:53→18:46)
[2017-09-28 05:00] LABS: Calcium 8.8 mg/dL (8.6-10.8); Magnesium 1.5 mg/dL (1.6-2.6); Potassium 4.4 mEq/L (3.5-4.5)
[2017-09-28 05:03] LABS: Phosphorous 1.8 mg/dL (2.3-4.7)
[2017-09-28] MEDS: Budesonide/Formoterol 80/4.5 MDI IH SCH ×2 (08:10→20:55)
[2017-09-28] MEDS: Sucralfate 1 GM TABLET PO SCH ×4 (12:41→21:16)
[2017-09-28] MEDS: Nicotine 21 MG PATCH.TD24 TD SCH (13:00)
[2017-09-28] MEDS: Lactobacillus 1 EACH CAP.SPRINK PO SCH ×2 (13:01→21:16)
[2017-09-28] MEDS: Cholecalciferol (D-3) 1,000 UNIT TABLET PO SCH (13:02)
[2017-09-28] MEDS: Diltiazem CD (24hr) 120 MG CAPSULE PO SCH (13:02)
[2017-09-28] MEDS: Renal Vitamin 1 MG CAPSULE PO SCH (13:03)
--- NOTE | 2017-09-28 13:14 | Internal Med Progress Note ---
<Gifty Shen - Last Filed: 09/28/17 13:12> Date of Encounter: 09/28/17 Time of Encounter: 13:12 - Assessment and plan (1) Nausea and vomiting Current Visit: Yes Status: Acute Qualifiers: Vomiting type: unspecified Vomiting Intractability: non-intractable Qualified Code(s): R11.2 - Nausea with vomiting, unspecified (2) Colitis Current Visit: Yes Status: Resolved Assessment and plan: -on admission, colitis at splenic flexure--course of IV flagyl and ciprofloxacin completed -per surgery: no surgical intervention (3) COPD (chronic obstructive pulmonary disease) Current Visit: Yes Status: Chronic Assessment and plan: -continue supplemental O2 -continue albuterol, duoneb, symbicort Qualifiers: COPD type: emphysema Emphysema type: panlobular Qualified Code(s): J43.1 - Panlobular emphysema (4) Anemia Current Visit: Yes Status: Chronic Qualifiers: Anemia type: unspecified type Qualified Code(s): D64.9 - Anemia, unspecified (5) ESRD (end stage renal disease) on dialysis Current Visit: Yes Status: Chronic (6) Atrial fibrillation Current Visit: Yes Status: Chronic Qualifiers: Atrial fibrillation type: chronic Qualified Code(s): I48.2 - Chronic atrial fibrillation (7) Hypothyroid Current Visit: Yes Status: Chronic Qualifiers: Hypothyroidism type: unspecified Qualified Code(s): E03.9 - Hypothyroidism , unspecified (8) Tobacco abuse Current Visit: Yes Status: Chronic - Subjective Interval history: Patient seen and examined at bedside. Continues to c/o abdominal pain she believes to be caused by a "hernia" located below her urostomy. Since starting guaifensin, pt's cough has been productive and she feels she is breathing better. - Constitutional Vitals: Temp Pulse Resp BP Pulse Ox 98.1 F 85 16 113/49 99 09/28/17 07:28 09/28/17 07:28 09/28/17 12:00 09/28/17 07:28 09/28/17 12:00 General appearance: Present: A&O X 3, pleasant, no acute distress, answers questions appropriately Internal Medicine: Result - Labs CBC & Chem 7: 09/27/17 13:57 09/28/17 04:30 Labs: Short CBC 09/27/17 Range/Units 13:57 WBC 4.6 (4.3-11.1) K/mcL Hgb 7.8 L (11.5-15.4) g/dL Hct 24.6 L (35.3-44.9) % Plt Count 83 L (140-400) K/mcL Neutrophils # 3.5 (1.6-8.9) K/mcL BMP 09/28/17 04:30 Sodium 134 L Potassium 4.4 D Chloride 102 Carbon Dioxide 25 BUN 51 H D Creatinine 4.52 H D Glucose 98 Calcium 8.8 - ABG Interpretation ABG results: PT/INR, D-dimer PT 13.7 Seconds (9.4-12.1) H 09/08/17 03:55 Consult Discharge Plan - Plan Referrals: Na Johansen, TYLER [Primary Care Provider] - 09/30/17 9:45 am ( ) Prescriptions: Acetylcysteine 10% 2 ml IH [id number] #30 inhsol Ipratropium/Albuterol Neb [Duoneb] 3 ml IH [id number] #30 inhsol Cefdinir [Omnicef] 300 mg PO BID 10 Days #20 capsule GuaiFENesin ER [Mucinex] 600 mg PO BID 5 Days #10 tbbp.12hr Nicotine Patch [Nicoderm] 21 mg TD DAILY #30 patch.td24 <Lion Topete - Last Filed: 09/28/17 15:23> Date of Encounter: 09/28/17 - Constitutional Vitals: Temp Pulse Resp BP Pulse Ox 98.1 F 85 16 113/49 99 09/28/17 07:28 09/28/17 07:28 09/28/17 12:00 09/28/17 07:28 09/28/17 12:00 Internal Medicine: Result - Labs CBC & Chem 7: 09/27/17 13:57 09/28/17 04:30 Labs: Short CBC 09/27/17 Range/Units 13:57 WBC 4.6 (4.3-11.1) K/mcL Hgb 7.8 L (11.5-15.4) g/dL Hct 24.6 L (35.3-44.9) % Plt Count 83 L (140-400) K/mcL Neutrophils # 3.5 (1.6-8.9) K/mcL BMP 09/28/17 04:30 Sodium 134 L Potassium 4.4 D Chloride 102 Carbon Dioxide 25 BUN 51 H D Creatinine 4.52 H D Glucose 98 Calcium 8.8 - ABG Interpretation ABG results: PT/INR, D-dimer PT 13.7 Seconds (9.4-12.1) H 09/08/17 03:55 - Attending Attestation I performed an independent history and exam of this patient. I agree with the findings, assessment, plan of Dr. Amaro, internist. Patient continues to improve. We are continuing to advance her diet, I discussed the case with nutrition. TPN is now stopped.. Abdominal pain is improved. We will continue to encourage increased activity today. Tolerating po's thus far including breakfast. It is unclear as of yet if patient will be able to go home versus needing a rehabilitation facility. All else as outlined above in Dr. Amaro's note. Antic dc after HD tomorrow. Exam: Vitals reviewed Gen- NAD, AAOx3 Skin-Warm and dry Neck-supple, no JVD Lung - dimin bs bases Ht-RRR Abd - soft, min ttp at colostomy, +BS Ext - no sig edema Neuro - nonfocal
[2017-09-28] MEDS ORDERED: Magnesium Sulfate 20 gm/500mL 20 GM/500 ML IV.SOLN IVC SCH (14:15)
[2017-09-28] MEDS ORDERED: Clinimix 5%-20% SOLUTION 2,000 ML with MVI, adult with vitamin K 10 ML, Sodium Acetat... IVC SCH (17:00)
[2017-09-29] MEDS: Ipratropium/Albuterol Neb 3 ML IH SCH ×6 (00:50→20:54)
[2017-09-29] MEDS: *HR* OxyCODONE Immed Rel 5 MG TABLET PO PRN ×5 (00:52→22:35)
[2017-09-29] MEDS: GuaiFENesin Liq 200 MG/10 ML UDC PO SCH ×5 (00:52→22:35)
[2017-09-29] MEDS: Ondansetron 4 MG/2 ML VIAL IVP SCH ×5 (00:53→22:35)
[2017-09-29 04:06] LABS: Calcium 8.9 mg/dL (8.6-10.8); Magnesium 2.2 mg/dL (1.6-2.6)
[2017-09-29 04:20] LABS: Phosphorous 2.8 mg/dL (2.3-4.7)
[2017-09-29 07:50] LABS: Hematocrit 22.9 % (35.3-44.9); Hemoglobin 7.2 g/dL (11.5-15.4); Mean Corpuscular HGB Conc 31.4 g/dL (31.6-35.5); Mean Corpuscular Hemoglobin 28.9 pg (28.0-33.3); Mean Platelet Volume 10.7 fL (9.4-12.4); Red Blood Count 2.49 M/mcL (3.82-4.97); Red Cell Distribution Width 17.6 % (11.5-14.5)
[2017-09-29] MEDS: Budesonide/Formoterol 80/4.5 MDI IH SCH ×2 (07:54→20:53)
[2017-09-29] MEDS: Sucralfate 1 GM TABLET PO SCH ×4 (08:05→21:31)
[2017-09-29] MEDS: Cholecalciferol (D-3) 1,000 UNIT TABLET PO SCH (08:06)
[2017-09-29] MEDS: Diltiazem CD (24hr) 120 MG CAPSULE PO SCH (08:06)
[2017-09-29] MEDS: Renal Vitamin 1 MG CAPSULE PO SCH (08:06)
[2017-09-29] MEDS: Nicotine 21 MG PATCH.TD24 TD SCH (08:06)
[2017-09-29] MEDS: Lactobacillus 1 EACH CAP.SPRINK PO SCH ×2 (08:06→21:31)
[2017-09-29] MEDS ORDERED: 0.9 % Sodium Chloride 250 ML IVC PRN (08:26)
[2017-09-29] MEDS ORDERED: Albumin 25% 25gram/100mL 25 GM/100 ML IV.SOLN IVPB PRN (08:32)
[2017-09-29] MEDS ORDERED: Albumin 25% 12.5gm/50mL 25.0 GM/100 ML IV.SOLN ONE (10:12)
--- NOTE | 2017-09-29 11:49 | Nephrology Progress Note ---
Date of Encounter: 09/29/17 Time of Encounter: 11:48 - Assessment and Plan (1) ESRD (end stage renal disease) on dialysis Current Visit: Yes Status: Chronic HD MWF. Renal vitamins. Renal dose medications. Renal diet. (2) Anemia Current Visit: Yes Status: Chronic Patient with progressive anemia. Discussed with Dr. Hoover. Agree with transfusion. Patient with clinical suspicion of bowel obstruction. Evaluated by surgery- no bowel obstruction. CT scan with probable ulcer and gastritis and colitis. Awaiting GI evaluation Continue PPI. Continue NPO status per surgery. Qualifiers: Anemia type: unspecified type Qualified Code(s): D64.9 - Anemia, unspecified (3) Frail elderly Current Visit: No Status: Acute Per primary team. (4) Hyperphosphatemia Current Visit: No Status: Acute Improved. PTH elevated and vitamin D normal. Renal diet. (5) Hypocalcemia Current Visit: No Status: Acute Improving. Will place on higher calcium bath with dialysis. Check ionized calcium and replace as needed. (6) Hyperparathyroidism Current Visit: Yes Status: Acute Likely physiologic response to hypocalcemia. Correct calcium and repeat. Subjective Principal diagnosis: ESRD Interval history: Patient seen on dialysis. She feels better. Objective - Vital Signs Vital signs: Vital Signs Temp Pulse Resp BP Pulse Ox 09/29/17 11:15 110/37 09/29/17 10:45 110/40 09/29/17 10:15 97/43 09/29/17 09:45 113/59 09/29/17 09:15 97.6 F 15 123/56 09/29/17 07:56 98.0 F 81 16 107/45 97 09/29/17 07:54 17 97 09/29/17 04:21 98.3 F 82 16 92/41 93 09/29/17 00:50 18 96 09/28/17 22:59 98.6 F 88 16 111/71 96 09/28/17 20:56 18 96 09/28/17 18:54 97.6 F 83 16 110/68 97 09/28/17 16:05 20 94 09/28/17 13:20 98.1 F 86 14 136/54 97 09/28/17 12:00 16 99 Intake and Output 09/28/17 09/29/17 09/29/17 23:59 07:59 15:59 Intake Total 0 / 0 600 / 600 Output Total 275 / 275 Balance -275 / -275 600 / 600 Intake: Oral 0 / 0 0 / 0 Intake, Rinseback and Flushes 600 / 600 Output: Stool 250 / 250 Urostomy 25 / 25 Other: Stool Size Small Stool Color Brown Weight 55.61 kg Hemodialysis Net Fluid Removed 1734 (mL) Patient Weight 09/29/17 23:59 Weight 55.61 kg - General Appearance General appearance: Present: well-developed, chronically ill, frail EENT: Present: ATNC Neck: Present: supple Respiratory: Present: course breath sounds, rhonchi Cardiology: Present: no edema, regular rate Dialysis Vascular Access: Arteriovenous Fistula Integumentary: Present: warm and dry Neurologic: Present: alert and oriented x3 Musculoskeletal: Present: no cyanosis Psychiatric: Present: mood/affect appropriate - Lab 09/29/17 07:40 09/29/17 03:45 Most recent lab results Calcium 8.9 mg/dL (8.6-10.8) 09/29/17 03:45 Phosphorus 2.8 mg/dL (2.3-4.7) D 09/29/17 03:45 Magnesium 2.2 mg/dL (1.6-2.6) 09/29/17 03:45 Consult Discharge Plan - Plan Referrals: Na Johansen, SENIOR FIRE PROTECTION ENGINEER [Primary Care Provider] - 09/30/17 9:45 am ( ) Prescriptions: Acetylcysteine 10% 2 ml IH [id number] #30 inhsol Ipratropium/Albuterol Neb [Duoneb] 3 ml IH [id number] #30 inhsol Cefdinir [Omnicef] 300 mg PO BID 10 Days #20 capsule GuaiFENesin ER [Mucinex] 600 mg PO BID 5 Days #10 tbbp.12hr Nicotine Patch [Nicoderm] 21 mg TD DAILY #30 patch.td24
[2017-09-29] MEDS ORDERED: 0.9 % Sodium Chloride 2,000 ML ONE (13:46)
--- NOTE | 2017-09-29 18:51 | Internal Med Progress Note ---
Date of Encounter: 09/29/17 Time of Encounter: 18:50 - Assessment and plan (1) ESRD (end stage renal disease) on dialysis Current Visit: Yes Status: Chronic Assessment and plan: -MWF schedule for HD -continue to avoid nephrotoxins when able -Phos 0.7 this AM, phos-binders being held, will replace with neutra-phos 1pkt TID x2 days, and check level with morning labs Please check with nephrology whether patient can go home sometime this week. (2) Atrial fibrillation Current Visit: Yes Status: Chronic Assessment and plan: -rate controlled with HR mid 70's to 90 -continue diltiazem CD -not on anticoagulation d/t risk of falls and h/o bleed Qualifiers: Atrial fibrillation type: chronic Qualified Code(s): I48.2 - Chronic atrial fibrillation (3) Hypothyroid Current Visit: Yes Status: Chronic Assessment and plan: -continue synthroid Qualifiers: Hypothyroidism type: unspecified Qualified Code(s): E03.9 - Hypothyroidism , unspecified (4) Frail elderly Current Visit: No Status: Acute (5) DVT prophylaxis Current Visit: Yes Status: Acute Assessment and plan: Continue SQ Heparin, ambulate - Subjective Interval history: Patient seen and examined. Chart reviewed. Patient is comfortably sitting up in a chair. Patient denies any chest pain, shortness of breath, nausea, vomiting, abdominal pain, dizziness and diarrhea - Constitutional Vitals: Temp Pulse Resp BP Pulse Ox 98.2 F 88 16 130/73 96 09/29/17 15:00 09/29/17 15:00 09/29/17 15:10 09/29/17 15:00 09/29/17 15:10 General appearance: Present: A&O X 3, pleasant, no acute distress, answers questions appropriately - Head Head exam: Present: atraumatic, normocephalic - Eye Eye exam: Present: PERRL, conjuntiva pink, sclera anicteric Pupils: Present: PERRL - Neck Neck exam general surgery: Present: supple, trachea midline. Absent: lymphadenopathy - Respiratory Respiratory exam: Present: CTAB. Absent: accessory muscle use, rales, rhonchi, wheezes - Cardiovascular Cardiovascular exam: Present: RRR, +S1, +S2. Absent: diastolic murmur, gallop, rubs, systolic murmur - GI/Abdominal GI/Abdominal exam: Present: normal bowel sounds, soft, no peritoneal signs. Absent: distended, tenderness - Extremities Exam Extremities exam: Present: warm, radial pulses palpable and symmetrical. Absent : calf tenderness, cyanotic, pedal edema - Neurological Exam Neurological exam: Present: CN II-XII intact, oriented X3, no focal deficits. Absent: pronater drift, facial droop, speech deficit - Skin Skin exam: Present: dry, intact Internal Medicine: Result - Labs CBC & Chem 7: 09/29/17 07:40 09/29/17 03:45 Labs: Short CBC 09/29/17 Range/Units 07:40 WBC 4.7 (4.3-11.1) K/mcL Hgb 7.2 L (11.5-15.4) g/dL Hct 22.9 L (35.3-44.9) % Plt Count 97 L (140-400) K/mcL BMP 09/29/17 03:45 Sodium 132 L Potassium 5.0 H Chloride 101 Carbon Dioxide 24 BUN 71 H D Creatinine 5.82 H Glucose 80 Calcium 8.9 - ABG Interpretation ABG results: PT/INR, D-dimer PT 13.7 Seconds (9.4-12.1) H 09/08/17 03:55 Consult Discharge Plan - Plan Referrals: Na Johansen, TYLER [Primary Care Provider] - 09/30/17 9:45 am ( ) Prescriptions: Acetylcysteine 10% 2 ml IH [id number] #30 inhsol Ipratropium/Albuterol Neb [Duoneb] 3 ml IH [id number] #30 inhsol Cefdinir [Omnicef] 300 mg PO BID 10 Days #20 capsule GuaiFENesin ER [Mucinex] 600 mg PO BID 5 Days #10 tbbp.12hr Nicotine Patch [Nicoderm] 21 mg TD DAILY #30 patch.td24
[2017-09-30] MEDS: Ipratropium/Albuterol Neb 3 ML IH SCH ×4 (01:07→11:16)
[2017-09-30] MEDS: *HR* OxyCODONE Immed Rel 5 MG TABLET PO PRN (03:42)
[2017-09-30] MEDS: GuaiFENesin Liq 200 MG/10 ML UDC PO SCH ×2 (06:17→11:46)
[2017-09-30] MEDS: Ondansetron 4 MG/2 ML VIAL IVP SCH ×2 (06:17→11:46)
[2017-09-30] MEDS: Budesonide/Formoterol 80/4.5 MDI IH SCH (07:38)
[2017-09-30] MEDS: Cholecalciferol (D-3) 1,000 UNIT TABLET PO SCH (08:06)
[2017-09-30] MEDS: Lactobacillus 1 EACH CAP.SPRINK PO SCH (08:06)
[2017-09-30] MEDS: Diltiazem CD (24hr) 120 MG CAPSULE PO SCH (08:06)
[2017-09-30] MEDS: Sucralfate 1 GM TABLET PO SCH ×2 (08:06→11:47)
[2017-09-30] MEDS: Renal Vitamin 1 MG CAPSULE PO SCH (08:06)
[2017-09-30] MEDS: Nicotine 21 MG PATCH.TD24 TD SCH (08:07)
--- NOTE | 2017-09-30 10:42 | Discharge Summary ---
Date of Encounter: 09/30/17 Time of Encounter: 09:45 - Discharge Medications Prescriptions: Acetylcysteine 10% 2 ml IH [id number] #30 inhsol Ipratropium/Albuterol Neb [Duoneb] 3 ml IH [id number] #30 inhsol Cefdinir [Omnicef] 300 mg PO BID 10 Days #20 capsule GuaiFENesin ER [Mucinex] 600 mg PO BID 5 Days #10 tbbp.12hr Nicotine Patch [Nicoderm] 21 mg TD DAILY #30 patch.td24 Home Medications: Amitriptyline [Elavil] 50 mg PO HS 09/19/15 [History] Cholecalciferol (Vitamin D3) [Vitamin D3] 5,000 unit PO DAILY #0 09/19/15 [ History] Ranitidine HCl [Zantac] 150 mg PO HS 09/19/15 [History] Cyanocobalamin (B-12) [Vitamin B12] 1,000 mcg IM QMONTH 02/21/17 [History] Levothyroxine Sodium [Synthroid] 300 mcg PO DAILY 02/21/17 [History] Mometasone/Formoterol [Dulera 100 Mcg/5 Mcg Inhaler] 2 puff IH BID 02/21/17 [ History] Lactobacillus [Culturelle] 1 each PO BID #60 cap.sprink 03/10/17 [Rx] Lidocaine/Prilocaine CREAM [Emla] 1 appl TP AD PRN 06/30/17 [History] Renal Vitamin [Renal Caps Softgel] 1 mg PO DAILY 06/30/17 [History] Acetaminophen [Tylenol] 650 mg PO Q6HR PRN #20 tab 07/10/17 [Rx] Menthol [[place]] 3.2 mg MM Q4H PRN 07/16/17 [History] Calcitriol [Rocaltrol] 0.25 mcg PO DAILY #15 capsule 08/06/17 [Rx] Ferrous Sulfate 325 mg PO DAILY@0800 #30 tablet 08/06/17 [Rx] Acetylcysteine 10% 2 ml IH [id number] #30 inhsol 09/14/17 [Rx] Cefdinir [Omnicef] 300 mg PO BID 10 Days #20 capsule 09/14/17 [Rx] Diltiazem CD (24hr) [Cardizem CD] 120 mg PO DAILY cap.er.24h 09/14/17 [Rx] GuaiFENesin ER [Mucinex] 600 mg PO BID 5 Days #10 tbbp.12hr 09/14/17 [Rx] Ipratropium/Albuterol Neb [Duoneb] 3 ml IH [id number] #30 inhsol 09/14/17 [Rx] Nicotine Patch [Nicoderm] 21 mg TD DAILY #30 patch.td24 09/14/17 [Rx] Allergies/Adverse Reactions: 3 Allergy/AdvReac Type Severity Reaction Status Date / Time codeine AdvReac Severe Vomiting Verified 03/06/17 15:22 naproxen [From Naprosyn] AdvReac Severe Vomiting Verified 03/06/17 15:22 Date of admission: 09/02/17 01:49 Primary care physician: Na Johansen CNP Consults: 09/02/17 11:17 Consult to Nephrology [CONS] Routine Consulting Provider: Kidney Katelyn/MAYO/JAYESH/COREY Reason for Consult: ESRD on HD Call Completed: Yes 09/03/17 07:30 Consult to Dialysis [CONS] ONCE 09/03/17 09:45 Consult to Dialysis [CONS] ONCE 09/04/17 15:47 Consult to Online Marketing Analyst [CONS] Routine Reason for SW Consult: possible home health 09/05/17 09:00 Consult to Dialysis [CONS] ONCE 09/06/17 11:30 Consult to Dialysis [CONS] ONCE 09/07/17 09:32 Consult to Interventional Radiology [CONS] Routine Consulting Provider: Radiology Interventional Cols Reason for Consult: Patient needs fistulogram secondary to removal of clots when attempting dialysis on friday. Call Completed: No 09/08/17 10:00 Consult to Dialysis [CONS] ONCE 09/10/17 08:00 Consult to Dialysis [CONS] ONCE 09/11/17 08:00 Consult to Dialysis [CONS] ONCE 09/12/17 07:45 Consult to Dialysis [CONS] ONCE 09/12/17 08:07 Consult to Surgery [CONS] Routine Consulting Provider: Surgery Katelyn Surgical Reason for Consult: abdominal pain, distension Call Completed: Yes 09/15/17 06:00 Consult to Dialysis [CONS] ONCE 09/17/17 07:30 Consult to Dialysis [CONS] ONCE 09/19/17 07:00 Consult to Dialysis [CONS] ONCE 09/19/17 13:26 Consult to Gastroenterology [CONS] Routine Consulting Provider: Gastroenterology Katelyn Reason for Consult: Persistent vomiting, epigastric and abdominal pain, s/p ieostomy, chronic diarrhea Call Completed: Yes 09/20/17 16:41 Consult to Nutrition [CONS] Routine Comment: Consulting Provider: NUTRITION Reason for Dietary Consult: TPN Start and Manage 09/22/17 08:30 Consult to Dialysis [CONS] ONCE 09/22/17 10:28 Consult to Palliative Care [CONS] Routine Comment: Consulting Provider: Palliative Care Katelyn Reason for Consult: ESRD, chronic ileostomy and diarrhea, COPD, smoker with persistent nausea, abdominal pain, poor functional status Call Completed: Yes 09/23/17 08:30 Consult to Dialysis [CONS] ONCE 09/24/17 08:00 Consult to Dialysis [CONS] ONCE 09/26/17 08:15 Consult to Dialysis [CONS] ONCE 09/26/17 13:07 Consult to Physical Therapy [CONS] Routine Comment: Evaluate, develop and implement POC Reason for Consult: deconditioning 09/29/17 08:30 Consult to Dialysis [CONS] ONCE Discharging clinician: Pasha Alexander Anticipated date of discharge: 09/30/17 - Patient Status Disposition: Home, Self-Care Condition: Good - Discharge Instructions Instructions: Pancreatitis (DC), Acute Kidney Injury (DC), Acute Nausea and Vomiting (DC) Follow Up With: Na Johansen CNP [Primary Care Provider] - 10/07/17 3:15 pm ( ) Forms: ED Satisfaction Letter, Work/School Release - Diet and Activity Activity: resume usual activities as tolerated Diet: advance to your usual diet, diabetic diet, low salt diet Interval History: See below Hospital course: 71-year-old female with history of end-stage renal disease on hemodialysis, status post urostomy and colostomy, paroxysmal atrial fibrillation, admitted with abdominal pain She was managed for colitis, enteritis Incidental finding of LLL pneumonia and COPD exacerbation, that has been managed appropriately, she has completed several days of IV antibiotics Surgery was involved in her care, SBO was ruled out with a SBFT, and patient was started on clear liquid diets and advanced as tolerated Due to poor oral intake, she received TPN for a short duration, pt is s/p EGD and was found to have esophageal ulcers and chronic gastritis. Protonic and Carafate have been added. On evaluation today, she has no new complains and is asymptomatic All her acute clinical problems have resolved, she is tolerating po and is stable to be discharged home, she has refused PTOT eval, home health or placement She is high risk for readmission due to her multiple chronic medical problems and suspected non-compliance Follow up with PCP/mail room clerk - Time Spent with Patient Total time spent providing and/or coordinating discharge services: Greater than 30 minutes (>60 minutes spent on chart review and face to face eval , med rec, discusssio with patient and SW, CSM.) - Constitutional Vitals: Temp Pulse Resp BP Pulse Ox 98.4 F 93 18 116/46 96 09/30/17 07:33 09/30/17 07:33 09/30/17 07:38 09/30/17 07:33 09/30/17 07:38 General: NAD, pleasant Cardiac: S1S2, RRR Respiratory: Normal respiratory effort, positive productive cough, chest congestion on auscultation with rhonchi. Abdomen: BS+, ileostomy clean, non distended, tender to palpation in lower abdomen consistent from previous Neuro: AOx3, no focal deficits General appearance: Present: A&O X 3, pleasant, no acute distress, answers questions appropriately
--- NOTE | 2017-09-30 11:03 | Nephrology Progress Note ---
Date of Encounter: 09/30/17 Time of Encounter: 11:01 - Assessment and Plan (1) ESRD (end stage renal disease) on dialysis Current Visit: Yes Status: Chronic Plan for HD tomorrow Continue renal diet Avoid nephrotoxins if possible (2) Anemia in CKD (chronic kidney disease) Current Visit: Yes Status: Chronic Hgb 7.2 Goal 10-11 Continue Aranesp Transfuse per parameters per primary team Qualifiers: Chronic kidney disease stage: on chronic dialysis Qualified Code(s): N18.6 - End stage renal disease; D63.1 - Anemia in chronic kidney disease; D63.1 - Anemia in chronic kidney disease; Z99.2 - Dependence on renal dialysis; Z99.2 - Dependence on renal dialysis; Z99.2 - Dependence on renal dialysis; Z99.2 - Dependence on renal dialysis Subjective Principal diagnosis: ESRD Interval history: Patient seen and examined. Patient feels well today, says she is going home tomorrow. Objective - Vital Signs Vital signs: Vital Signs Temp Pulse Resp BP Pulse Ox 09/30/17 07:38 18 96 09/30/17 07:33 98.4 F 93 17 116/46 96 09/30/17 04:44 98 F 90 16 115/59 100 09/30/17 04:32 16 94 09/30/17 01:08 16 95 09/29/17 23:41 98.5 F 92 16 108/68 94 09/29/17 20:54 16 94 09/29/17 19:48 98.2 F 86 16 107/63 99 09/29/17 15:10 16 96 09/29/17 15:00 98.2 F 88 16 130/73 99 09/29/17 12:25 97.6 F 14 118/36 09/29/17 12:15 107/55 09/29/17 11:45 106/46 09/29/17 11:15 110/37 Intake and Output 09/29/17 09/30/17 09/30/17 23:59 07:59 15:59 Intake Total 4 / 4 Output Total 50 / 50 Balance -50 / -50 4 / 4 Intake: Oral 4 / 4 Output: Urostomy 50 / 50 Other: Meal Breakfast Percent of Meal Consumed 100% - General Appearance General appearance: Present: cachectic, chronically ill, frail EENT: Present: ATNC, mucous membranes moist, hearing intact, vision intact Neck: Present: supple Respiratory: Present: wheezing, course breath sounds, rhonchi Cardiology: Present: no edema, normal S1, normal S2 Dialysis Vascular Access: Arteriovenous Fistula Gastrointestinal: Present: no tenderness, no guarding Integumentary: Present: warm and dry Neurologic: Present: alert and oriented x3 Psychiatric: Present: mood/affect appropriate, cooperative - Lab 09/29/17 07:40 09/29/17 03:45 Most recent lab results Calcium 8.9 mg/dL (8.6-10.8) 09/29/17 03:45 Phosphorus 2.8 mg/dL (2.3-4.7) D 09/29/17 03:45 Magnesium 2.2 mg/dL (1.6-2.6) 09/29/17 03:45 Consult Discharge Plan - Plan Referrals: Na Johansen CNP [Primary Care Provider] - 09/30/17 9:45 am ( ) Prescriptions: Acetylcysteine 10% 2 ml IH [id number] #30 inhsol Ipratropium/Albuterol Neb [Duoneb] 3 ml IH [id number] #30 inhsol Cefdinir [Omnicef] 300 mg PO BID 10 Days #20 capsule GuaiFENesin ER [Mucinex] 600 mg PO BID 5 Days #10 tbbp.12hr Nicotine Patch [Nicoderm] 21 mg TD DAILY #30 patch.td24
[2017-09-30 11:07] VITALS: BP 110/47
== END 2017-09-30 14:15 | disposition home or self-care (01) | DRG 249 ==
LOC: EMEROO 21:07 → 2ANU 21:07 → SUATTDRO 09-02 01:49 → 2ANU 09-02 04:50 → 3BNU 09-02 12:50 → 2ANU 09-04 15:54
PROVIDERS: ADMIT Internal Medicine; ATTEND Internal Medicine
PROC: ENDOEBX (2017-09-23 12:45)

== ENCOUNTER 2017-10-16 17:47 | Inpatient (IN) ==
[2017-10-16] MEDS ORDERED: 0.9 % Sodium Chloride 1,000 ML IVC ONE (17:59)
[2017-10-16] MEDS ORDERED: *HR* OxyCODONE/APAP 5/325 TABLET PO ONE (18:16)
--- NOTE | 2017-10-16 18:26 | Emergency Department Note ---
Disposition Clinical Impression: Hypokalemia, Hypomagnesemia, Bronchitis UTI (urinary tract infection) Qualifiers: Urinary tract infection type: acute cystitis Hematuria presence: without hematuria Qualified Code(s): N30.00 - Acute cystitis without hematuria Disposition: Admitted As Inpatient Condition: Fair Referrals: Na Johansen CNP [Primary Care Provider] - Forms: ED Satisfaction Letter Time of Disposition: 22:23 General Adult HPI - General Chief complaint: ED Weakness Stated complaint: weakness Time Seen by Provider: 10/16/17 17:54 Source: patient, EMS Mode of arrival: EMS Limitations: no limitations Nursing Notes Reviewed: Yes Vital Signs Reviewed: Yes - History of Present Illness HPI Narrative: 72-year-old female presents to the emergency department complaining of generalized weakness as well as a cough and shortness of breath. Patient was discharged here proximally 3 weeks ago after a fall and also having multifocal pneumonia. She recently saw her primary care physician who gave her pain meds for the rib pain. She did break her seventh rib during this fall. She notes today she was becoming more weak and felt like she was falling. Patient did not fall did not hit her head. Patient says that she has had worsening cough and is continuing more weak. She is wondering if she still has pneumonia. She says she is currently not taking any antibiotics at this time. Patient says she has not checked for any fevers. She has no nausea or vomiting she has no abdominal pain. Patient is having no other complaints including neck pain, headache, blurry vision, back pain, chest pain other than the rib pain that she already has, changes in bowel movements or pain with urination. Patient also has no pain or tingling down the arms or legs. She does have a new generalized weakness that is new for her. Patient otherwise has no complaints. Pain Scale: 9 - Related Data Home Medications Medication Instructions Recorded Confirmed Amitriptyline [Elavil] 50 mg PO HS 09/19/15 10/06/17 Cholecalciferol (Vitamin D3) 5,000 unit PO DAILY #0 09/19/15 10/06/17 [Vitamin D3] Ranitidine HCl [Zantac] 150 mg PO HS 09/19/15 10/06/17 Cyanocobalamin (B-12) [Vitamin B12] 1,000 mcg IM QMONTH 02/21/17 10/06/17 Levothyroxine Sodium [Synthroid] 300 mcg PO DAILY 02/21/17 10/06/17 Mometasone/Formoterol [Dulera 100 2 puff IH BID 02/21/17 10/06/17 Mcg/5 Mcg Inhaler] Lidocaine/Prilocaine CREAM [Emla] 1 appl TP AD PRN 06/30/17 10/06/17 Renal Vitamin [Renal Caps Softgel] 1 mg PO DAILY 06/30/17 10/06/17 Menthol [[place]] 3.2 mg MM Q4H PRN 07/16/17 10/06/17 Previous Rx's Medication Instructions Recorded Lactobacillus [Culturelle] 1 each PO BID #60 cap.sprink 03/10/17 Acetaminophen [Tylenol] 650 mg PO Q6HR PRN #20 tab 07/10/17 Calcitriol [Rocaltrol] 0.25 mcg PO DAILY #15 capsule 08/06/17 Ferrous Sulfate 325 mg PO DAILY@0800 #30 tablet 08/06/17 Acetylcysteine 10% 2 ml IH [id number] #30 inhsol 09/14/17 Diltiazem CD (24hr) [Cardizem CD] 120 mg PO DAILY cap.er.24h 09/14/17 GuaiFENesin ER [Mucinex] 600 mg PO BID 5 Days #10 tbbp.12hr 09/14/17 Ipratropium/Albuterol Neb [Duoneb] 3 ml IH [id number] #30 inhsol 09/14/17 Nicotine Patch [Nicoderm] 21 mg TD DAILY #30 patch.td24 09/14/17 HYDROcodone/Acet 5/325 mg [[place] 1 tab PO Q6H #14 tab 10/06/17 5-325 mg] Allergies Allergy/AdvReac Type Severity Reaction Status Date / Time codeine AdvReac Severe Vomiting Verified 03/06/17 15:22 naproxen [From Naprosyn] AdvReac Severe Vomiting Verified 03/06/17 15:22 Review of Systems: 10 point review of systems done and negative unless otherwise stated in history of present illness. All systems ED: reviewed and negative except as stated. Review of Systems: As Per HPI Past Medical History - Past Medical History Attestation: Yes The following information was validated with the patient. Medical history: Reports: asthma, COPD, GERD, hypertension, renal disease, thyroid disease Surgical history: Reports: appendectomy, cholecystectomy, colostomy, hysterectomy, other Psychiatric history: Reports: no psych history - Social History Smoking Status: Former smoker Smokeless Tobacco Status: No Alcohol use: Reports: none Drug use: Reports: none Physical Exam - General Limitations: no limitations General appearance: alert, in no apparent distress - Head Head exam: atraumatic, normocephalic, normal inspection - Eye Eye exam: Present: normal appearance, PERRL, EOMI - ENT ENT exam: normal exam, normal oropharynx, mucous membranes moist - Neck Neck exam: Present: normal inspection, full ROM, trachea midline - Chest Chest inspection: Present: normal inspection, symmetric chest wall rise - Expanded Respiratory Exam Location: rhonchi: Left, Right, Upper, Lower - Cardiovascular Cardiovascular exam: Present: regular rate, normal rhythm, normal heart sounds - Abdominal Exam Abdominal exam: Present: soft, Non-Tender, normal bowel sounds. Absent: tenderness, distention, guarding, rebound, rigidity - Extremities Exam Extremities exam: Present: normal inspection, full ROM. Absent: tenderness, pedal edema - Expanded Lower Extremity Exam Neurovascular/Tendon exam: Present: normal capillary refill. Absent: pulse deficit, motor deficit, sensory deficit, tendon deficit - Back Exam Back exam: Present: normal inspection, full ROM. Absent: tenderness, CVA tenderness (R), CVA tenderness (L) - Neurological Exam Neurological exam: Present: alert, oriented X3 - Skin Skin exam: Present: warm, dry, intact, normal color Course Course Narrative: 72-year-old female presents to the emergency department complaining of shortness of breath and weakness and was new cough. This could be a new pneumonia. After listening patient did have rhonchi bilaterally. She does go to dialysis 3 days week and has a port. She is a Friday dialysis patient. Patient is having any other complaints right now. Patient was hypotensive when she came here at 90/40. We will give her IV fluid to help blood pressure. Patient is also complaining of pain so we will give her Percocet to that what is what she has been taking in the past. Patient's blood pressure after the IV fluids was 100/60. We will do basic sepsis workup including CBC, BMP, hepatic panel, lactate, blood cultures, mag, phosphorus, chest x-ray, EKG. Patient is okay with this plan. Disposition most likely his admission but pending results. Vital Signs Temperature 98.0 F 10/16/17 17:56 Pulse Rate 90 10/16/17 17:56 Respiratory Rate 22 10/16/17 17:56 Blood Pressure 92/64 10/16/17 17:56 O2 Sat by Pulse Oximetry 98 12 17:56 Temperature 98.0 F 10/16/17 17:56 Pulse Rate 73 10/16/17 19:42 Respiratory Rate 21 10/16/17 19:42 Blood Pressure 100/64 10/16/17 19:42 O2 Sat by Pulse Oximetry 95 10/16/17 19:42 Oxygen Delivery Oxygen Delivery Room Air Medical Decision Making - MDM Narrative Medical decision making narrative: 72-year-old female presents to the emergency department complaining of generalized weakness as well as cough and congestion. Patient was recently related to the hospital for multifocal pneumonia she was discharged and has seen her primary care physician where they diagnosed with a resolving multifocal pneumonia and just gave her Percocets to go home. She did have rib fractures at that time. She said that she has not been feeling well since being discharged proximal knee 3 weeks ago. Shestates she is becoming very weak. We did do CT of her head which had no acute findings. Patient did not fall at all today. Patient was also having this cough. We did do chest x-ray which showed most likely bronchitis but no acute pneumonia. Patient did have urinary tract infection but she does have urostomy and is a 3 times a week dialysis patient. She is a Friday normally. She has been doing her dialysis normally. We did do basic labs so that she was hypokalemic as well as hypomagnesemia we did replenish these. With IV and by mouth potassium as well as IV magnesium. Patient was also started on Rocephin due to the cough and bronchitis as well as the urinary tract infection. Patient otherwise has no complaints. Due to the weakness and patient being hypotensive when she first arrived. She has gotten 1 L of IV fluids. Patient will be admitted to the hospitalist service. I spoke with Dr. Morales who agreed to admit the patient to their service the patient is now admitted to the hospitalist service in stable condition. Chest X-Ray 10/16/17 17:58 IMPRESSION: Bronchial wall thickening suggests airway inflammation which may be seen with bronchitis. Previously seen basilar opacities on comparison exams are relatively inconspicuous, possibly resolved. Previously seen tiny right effusion may be resolved as well. No consolidative pneumonia. D/ / Buddy Aldridge / Buddy Aldridge Interpreting Provider: Buddy Aldridge Head CT 10/16/17 19:01 IMPRESSION: No acute intracranial abnormality. D/ / Dianne Araujo Cha, MD / Dianne Araujo Cha, MD Interpreting Provider: Dianne Araujo Cha, MD - Medical Records Medical records reviewed: Yes I reviewed the patient's medical records. - Lab Data Lab results reviewed: Yes I reviewed the patient's lab results. Result diagrams: 10/16/17 19:35 10/16/17 20:33 Lab Results 10/16/17 10/16/17 10/16/17 Range/Units 18:14 19:30 19:35 WBC 5.4 (4.3-11.1) K/mcL RBC 3.20 L (3.82-4.97) M/mcL Hgb 9.4 L (11.5-15.4) g/dL Hct 28.7 L (35.3-44.9) % MCV 89.7 (83.0-100.0) fL MCH 29.4 (28.0-33.3) pg MCHC 32.8 (31.6-35.5) g/dL RDW 18.5 H (11.5-14.5) % Plt Count 108 L (140-400) K/mcL MPV 10.9 (9.4-12.4) fL Immature Gran % 0.4 (0-4) % Seg Neutrophils % 54.5 % Lymphocytes % 40.7 % Monocytes % 3.7 % Eosinophils % 0.7 % Basophils % 0.0 % Neutrophils # 2.9 (1.6-8.9) K/mcL Lymphocytes # 2.2 (0.6-4.6) K/mcL Monocytes # 0.2 (0.0-1.3) K/mcL Eosinophils # 0.0 (0.0-0.6) K/mcL Basophils # 0.0 (0.0-0.2) K/mcL Nucleated RBCs/100 WBC 0.4 H (0) /100 WBC PT (9.4-12.1) Seconds INR APTT (26.0-36.0) Seconds Sodium (136-145) mEq/L Potassium (3.5-4.5) mEq/L Chloride (98-109) mEq/L Carbon Dioxide (19-29) mEq/L BUN (7-20) mg/dL Creatinine (0.57-1.11) mg/dL Est GFR ( Amer) (> 60) Est GFR (Non-Af Amer) (> 60) BUN/Creatinine Ratio (6-26) Glucose (70-99) mg/dL Calculated Osmolality (280-300) Lactic Acid (0.5-2.2) mmol/L Calcium (8.6-10.8) mg/dL Phosphorus (2.3-4.7) mg/dL Magnesium (1.6-2.6) mg/dL Total Bilirubin (0.2-1.2) mg/dL Direct Bilirubin (0.0-0.5) mg/dL Indirect Bilirubin (0.0-1.2) mg/dL AST (5-34) Units/L ALT (0-55) Units/L Alkaline Phosphatase (38-126) Units/L Troponin I (0-0.03) ng/mL B-Natriuretic Peptide 957 H (0-100) pg/mL Serum Total Protein (6.0-8.3) g/dL Albumin (3.5-5.0) g/dL Globulin (2.4-3.5) g/dL Albumin/Globulin Ratio (1.1-2.2) Urine Color Yellow (Yellow) Urine Clarity Turbid A (Clear) Urine pH 7.5 (5.0-8.0) pH Units Ur Specific Nenzel 1.011 (1.010-1.025) Urine Protein 100 H (Neg-Trace) mg/dL Urine Glucose (UA) Normal (Normal) mg/dL Urine Ketones Negative (Negative) mg/dL Urine Blood Moderate H (Negative) Urine Nitrite Negative (Negative) Urine Bilirubin Negative (Negative) Urine Urobilinogen Normal (Normal) mg/dL Ur Leukocyte Esterase Moderate H (Negative) Urine Microscopic RBC 15-30 H (0-3) per hpf Urine Microscopic WBC TNTC H (0-3) per hpf Ur Squamous Epith Cells Few (None-Few) per lpf Amorphous Sediment Many H (Few) Urine Bacteria Moderate H (None-Few) per hpf Hyaline Casts None Seen (None-Few) per lpf Ur Culture Indicated? YES A (NO) Specimen Rejected 10/16/17 10/16/17 10/16/17 Range/Units 19:35 19:35 19:35 WBC (4.3-11.1) K/mcL RBC (3.82-4.97) M/mcL Hgb (11.5-15.4) g/dL Hct (35.3-44.9) % MCV (83.0-100.0) fL MCH (28.0-33.3) pg MCHC (31.6-35.5) g/dL RDW (11.5-14.5) % Plt Count (140-400) K/mcL MPV (9.4-12.4) fL Immature Gran % (0-4) % Seg Neutrophils % % Lymphocytes % % Monocytes % % Eosinophils % % Basophils % % Neutrophils # (1.6-8.9) K/mcL Lymphocytes # (0.6-4.6) K/mcL Monocytes # (0.0-1.3) K/mcL Eosinophils # (0.0-0.6) K/mcL Basophils # (0.0-0.2) K/mcL Nucleated RBCs/100 WBC (0) /100 WBC PT 13.0 H (9.4-12.1) Seconds INR 1.2 APTT 31.5 (26.0-36.0) Seconds Sodium (136-145) mEq/L Potassium (3.5-4.5) mEq/L Chloride (98-109) mEq/L Carbon Dioxide (19-29) mEq/L BUN (7-20) mg/dL Creatinine (0.57-1.11) mg/dL Est GFR ( Amer) (> 60) Est GFR (Non-Af Amer) (> 60) BUN/Creatinine Ratio (6-26) Glucose (70-99) mg/dL Calculated Osmolality (280-300) Lactic Acid 1.6 (0.5-2.2) mmol/L Calcium (8.6-10.8) mg/dL Phosphorus (2.3-4.7) mg/dL Magnesium (1.6-2.6) mg/dL Total Bilirubin (0.2-1.2) mg/dL Direct Bilirubin (0.0-0.5) mg/dL Indirect Bilirubin (0.0-1.2) mg/dL AST (5-34) Units/L ALT (0-55) Units/L Alkaline Phosphatase (38-126) Units/L Troponin I (0-0.03) ng/mL B-Natriuretic Peptide (0-100) pg/mL Serum Total Protein (6.0-8.3) g/dL Albumin (3.5-5.0) g/dL Globulin (2.4-3.5) g/dL Albumin/Globulin Ratio (1.1-2.2) Urine Color (Yellow) Urine Clarity (Clear) Urine pH (5.0-8.0) pH Units Ur Specific Nenzel (1.010-1.025) Urine Protein (Neg-Trace) mg/dL Urine Glucose (UA) (Normal) mg/dL Urine Ketones (Negative) mg/dL Urine Blood (Negative) Urine Nitrite (Negative) Urine Bilirubin (Negative) Urine Urobilinogen (Normal) mg/dL Ur Leukocyte Esterase (Negative) Urine Microscopic RBC (0-3) per hpf Urine Microscopic WBC (0-3) per hpf Ur Squamous Epith Cells (None-Few) per lpf Amorphous Sediment (Few) Urine Bacteria (None-Few) per hpf Hyaline Casts (None-Few) per lpf Ur Culture Indicated? (NO) Specimen Rejected Miscellaneous 10/16/17 10/16/17 Range/Units 20:33 20:33 WBC (4.3-11.1) K/mcL RBC (3.82-4.97) M/mcL Hgb (11.5-15.4) g/dL Hct (35.3-44.9) % MCV (83.0-100.0) fL MCH (28.0-33.3) pg MCHC (31.6-35.5) g/dL RDW (11.5-14.5) % Plt Count (140-400) K/mcL MPV (9.4-12.4) fL Immature Gran % (0-4) % Seg Neutrophils % % Lymphocytes % % Monocytes % % Eosinophils % % Basophils % % Neutrophils # (1.6-8.9) K/mcL Lymphocytes # (0.6-4.6) K/mcL Monocytes # (0.0-1.3) K/mcL Eosinophils # (0.0-0.6) K/mcL Basophils # (0.0-0.2) K/mcL Nucleated RBCs/100 WBC (0) /100 WBC PT (9.4-12.1) Seconds INR APTT (26.0-36.0) Seconds Sodium 142 (136-145) mEq/L Potassium 2.2 L* (3.5-4.5) mEq/L Chloride 98 (98-109) mEq/L Carbon Dioxide 26 (19-29) mEq/L BUN 23 H (7-20) mg/dL Creatinine 6.67 H (0.57-1.11) mg/dL Est GFR ( Amer) 7 L (> 60) Est GFR (Non-Af Amer) 6 L (> 60) BUN/Creatinine Ratio 3 L (6-26) Glucose 118 H (70-99) mg/dL Calculated Osmolality 299 (280-300) Lactic Acid (0.5-2.2) mmol/L Calcium 6.2 L (8.6-10.8) mg/dL Phosphorus 7.9 H (2.3-4.7) mg/dL Magnesium 1.4 L (1.6-2.6) mg/dL Total Bilirubin 0.4 (0.2-1.2) mg/dL Direct Bilirubin 0.2 (0.0-0.5) mg/dL Indirect Bilirubin 0.2 (0.0-1.2) mg/dL AST 15 (5-34) Units/L ALT 11 (0-55) Units/L Alkaline Phosphatase 72 (38-126) Units/L Troponin I 0.04 H* (0-0.03) ng/mL B-Natriuretic Peptide (0-100) pg/mL Serum Total Protein 6.6 (6.0-8.3) g/dL Albumin 3.0 L (3.5-5.0) g/dL Globulin 3.6 H (2.4-3.5) g/dL Albumin/Globulin Ratio 0.8 L (1.1-2.2) Urine Color (Yellow) Urine Clarity (Clear) Urine pH (5.0-8.0) pH Units Ur Specific Nenzel (1.010-1.025) Urine Protein (Neg-Trace) mg/dL Urine Glucose (UA) (Normal) mg/dL Urine Ketones (Negative) mg/dL Urine Blood (Negative) Urine Nitrite (Negative) Urine Bilirubin (Negative) Urine Urobilinogen (Normal) mg/dL Ur Leukocyte Esterase (Negative) Urine Microscopic RBC (0-3) per hpf Urine Microscopic WBC (0-3) per hpf Ur Squamous Epith Cells (None-Few) per lpf Amorphous Sediment (Few) Urine Bacteria (None-Few) per hpf Hyaline Casts (None-Few) per lpf Ur Culture Indicated? (NO) Specimen Rejected - Radiology Data Radiology results reviewed: Yes I reviewed the patient's radiology results. - EKG Data EKG #1 EKG attestation: Yes I reviewed and interpreted this EKG. EKG results narrative: EKG done at 18 O2 review myself and attending Fartun sinus rhythm and rate of 73 , CA interval 152, QRS 90, QTC 391 with a normal axis. There is no acute ST changes, no acute T-wave abnormalities, no signs of any heart strain but there is left ventricular hypertrophy, no signs of any heart blocks no signs of WPW/ Brugada syndrome. This EKG is unchanged present on EKG done 09/17/17.
[2017-10-16 18:29] LABS: Bilirubin,Urine Negative (Negative); Blood,Urine Moderate (Negative); Clarity,Urine Turbid (Clear); Color,Urine Yellow (Yellow); Glucose,Urine (UA) Normal (Normal); Ketones,Urine Negative (Negative); Leukocyte Esterase,Urine Moderate (Negative); Nitrite,Urine Negative (Negative); PH,Urine 7.5 pH Units (5.0-8.0); Protein,Urine 100 mg/dL (Neg-Trace); Specific Gravity,Urine 1.011 (1.010-1.025); Urobilinogen,Urine Normal (Normal)
[2017-10-16 18:31] LABS: RBC,Urine 15-30 per hpf (0-3); WBC,Urine TNTC per hpf (0-3)
[2017-10-16 18:46] LABS: Squamous Epithelial Cell,Urine Few per lpf (None-Few)
[2017-10-16 18:47] LABS: Amorphous Sediment,Urine Many (Few)
[2017-10-16 18:48] LABS: Bacteria,Urine Moderate per hpf (None-Few); Hyaline Casts,Urine None Seen per lpf (None-Few)
[2017-10-16 19:49] LABS: Eosinophils % 0.7 %; Hematocrit 28.7 % (35.3-44.9); Hemoglobin 9.4 g/dL (11.5-15.4); Immature Granulocytes % 0.4 % (0-4); Lymphocytes # 2.2 K/mcL (0.6-4.6); Lymphocytes % 40.7 %; Mean Corpuscular HGB Conc 32.8 g/dL (31.6-35.5); Mean Corpuscular Hemoglobin 29.4 pg (28.0-33.3); Mean Corpuscular Volume 89.7 fL (83.0-100.0); Mean Platelet Volume 10.9 fL (9.4-12.4); Monocytes # 0.2 K/mcL (0.0-1.3); Monocytes % 3.7 %; Neutrophils # 2.9 K/mcL (1.6-8.9); Nucleated Red Blood Cells 0.4 /100 WBC (0); Platelet Count 108 K/mcL (140-400); Red Cell Distribution Width 18.5 % (11.5-14.5); Segmented Neutrophils % 54.5 %
[2017-10-16 19:55] LABS: INR 1.2
[2017-10-16 19:58] LABS: Activated Partial Thrombo Time 31.5 Seconds (26.0-36.0)
--- NOTE | 2017-10-16 20:20 | Emergency Department Note ---
START Narrative - START START: I examined this patient and my medical decision-making was reviewed with the Resident Physician. I agree with the documented findings, disposition and treatment plan as described except to the extent set forth below. 72 year old female presents to the ED with complaints of generalized weakness and aaliyah discomfrt with bronchitic cough and rales heard on exam. She is a dialysis patient and has a fistula for therapy and gets it MWF. Yvan is scheduled for it tomorrow. She has broken ribs and and was evaluted on the 10/[address] that should improving pnuemoina and pancreatic duct dilitation. Yvan will be given a cardiopulmonary workup and likel admitted to medicine for generalized weakness, COPD excebation, bronchitis.
[2017-10-16] MEDS ORDERED: cefTRIAXone 1,000 MG in Water for inj. (sterile) 10 ML IVP ONE (21:00)
[2017-10-16 21:13] LABS: Albumin/Globulin Ratio 0.8 (1.1-2.2); Bilirubin,Direct 0.2 mg/dL (0.0-0.5); Bilirubin,Indirect 0.2 mg/dL (0.0-1.2); Bilirubin,Total 0.4 mg/dL (0.2-1.2); Calcium 6.2 mg/dL (8.6-10.8); Globulin 3.6 g/dL (2.4-3.5); Magnesium 1.4 mg/dL (1.6-2.6); Phosphorous 7.9 mg/dL (2.3-4.7); Total Protein 6.6 g/dL (6.0-8.3)
[2017-10-16 21:16] LABS: Potassium 2.2 mEq/L (3.5-4.5)
[2017-10-16] MEDS ORDERED: Magnesium Sulfate 1 GM in D5% in Water 100 ML IVPB ONE (21:19)
[2017-10-16] MEDS ORDERED: Aspirin 81 MG TAB.CHEW PO ONE (21:26)
[2017-10-16] MEDS ORDERED: Menthol 9.1 MG LOZENGE MM PRN (23:05)
[2017-10-16] MEDS ORDERED: Acetaminophen 325 MG TABLET PO PRN (23:05)
[2017-10-16] MEDS ORDERED: Magnesium Sulfate 4 GM in D5% in Water 100 ML IVPB ONE (23:13)
[2017-10-16] MEDS ORDERED: Naloxone 0.4 MG/ML INJ IVP PRN (23:15)
[2017-10-16] MEDS ORDERED: Ipratropium/Albuterol Neb 3 ML IH PRN (23:23)
--- NOTE | 2017-10-16 23:28 | Internal Med History&Physical ---
<Rick Low J - Last Filed: 10/16/17 23:54> Date of Encounter: 10/16/17 Time of Encounter: 23:26 Assessment and Plan (1) Generalized weakness Current visit: Yes Status: Chronic Generalized weakness persists. Patient is hypokalemic with potassium of 2.2. She is reporting an increase in stool from colostomy. Increased volume loss is contributing factor to increasing weakness. PT, OT consult, medical social worker consult to evaluate functional capacity and for potential placement (2) Bronchitis Current visit: Yes Status: Acute Bronchitis per chest x-ray. Recent history of pneumonia for which she was treated here. Continues to have nonproductive cough and mild wrist or distress. He is complaining of midsternal chest pain with cough as well as her pain. She is noted to have a fractured rib. Continue to monitor respiratory status Bronchodilators to assist with wheezing and shortness of breath Benadryl at night to help dry secretions and decreased cough Nasal cannula respiratory support titrated to remain SPO2 greater than 92% We will hold off on antibiotic therapy at this time, chest x-ray is improved since last admission. (3) Abnormal urinalysis Current visit: Yes Status: Acute Patient with history of urostomy secondary to bladder cancer. I am doubtful that she has an active urinary tract infection is likely colonization. However , continue to follow clinical course. We will hold off on antibiotic therapy at this time and adjust clinical course as necessary (4) COPD (chronic obstructive pulmonary disease) Current visit: Yes Status: Chronic History of COPD. No wheezing noted upon auscultation. Continues to have mild respiratory distress and nonproductive cough. We will continue with bronchodilators scheduled every 4 hours and every 4 hours when necessary Benadryl at night to help dry secretions and decreased cough Respiratory support per Nasal cannula as needed Qualifiers: COPD type: emphysema Emphysema type: panlobular Qualified Code(s): J43.1 - Panlobular emphysema (5) Volume depletion, gastrointestinal loss Current visit: Yes Status: Chronic Received 1 L fluid bolus in the ED. Hold off on additional fluid volume replacement at this time as she is a hemodialysis patient is a high risk for fluid overload. Continue to replace electrolytes. Recheck electrolytes at midnight and in the morning (6) Hypomagnesemia Current visit: Yes Status: Resolved Secondary to increased stool output from colostomy. She is an increasing gastrointestinal volume loss. Replace magnesium with 4 g of mag now recheck electrolytes at midnight and in the morning (7) Hypokalemia Current visit: Yes Status: Resolved Due to GI volume loss. She has received a total of 40 mEq of potassium via K rider and 40 mEq potassium by mouth. Given additional 40 mEq oral potassium now , recheck electrolytes at midnight and in the morning. She is not currently complaining of any tachycardia, palpitations, muscle cramping or neurological symptoms. (8) Elevated troponin Current visit: Yes Status: Acute Likely related to ESRD. Denies any chest pain. Hemodynamically stable. Continue to trend troponins (9) Anemia in CKD (chronic kidney disease) Current visit: Yes Status: Chronic CBC in the morning. H&H has improved since 09/29/17. At that time hemoglobin was 7.2 Qualifiers: Chronic kidney disease stage: on chronic dialysis Qualified Code(s): N18.6 - End stage renal disease; D63.1 - Anemia in chronic kidney disease; D63.1 - Anemia in chronic kidney disease; Z99.2 - Dependence on renal dialysis; Z99.2 - Dependence on renal dialysis; Z99.2 - Dependence on renal dialysis; Z99.2 - Dependence on renal dialysis (10) ESRD (end stage renal disease) on dialysis Current visit: Yes Status: Chronic ESRD patient on Friday hemodialysis. Reports she completed her last appointment. She will be dialyzed again tomorrow. Follows with the nephrology group. Consult nephrology for further management-dayshift team to call (11) Tobacco abuse Current visit: Yes Status: Chronic Provided cessation counseling. 21 mg nicotine patch now (12) Chronic diarrhea Current visit: Yes Status: Chronic History of chronic diarrhea. However, she reports an increase in output from colostomy. Reported having to change colostomy bag 5 times today. We will continue to rule out infection if GI panel negative increased output related to prior bowel surgery Consider GI consult or consult with Dr. Fox for medical management Send GI panel (13) Atrial fibrillation Current visit: Yes Status: Chronic Not currently On anticoagulation. Continue Cardizem Qualifiers: Atrial fibrillation type: paroxysmal Qualified Code(s): I48.0 - Paroxysmal atrial fibrillation (14) DVT prophylaxis Current visit: Yes Status: Acute EPCD's Internal Medicine - H&P: HPI Chief complaint: generalized weakness, worsening cough, increased colostomy output Admitted From: Home Plans for Post Hospital Care: Home History of present illness: Ms. Parra is a 72 year old female with PMH of asthma, COPD, GERD, HTN, ESRD and hypothyroidism. Prior surgical hx includes urostomy due to bladder cancer and colostomy. She presents today with generalized weakness and worsening cough. Patient was admitted to [facility] on 10/06 after falling and fracturing her seventh rib. During that admission she had multifocal pneumonia which was treated and she was discharged home. Since that time she has had generalized weakness and is getting progressively worse. She also reports that her cough is getting worse. She denies any fever or chest pain abdominal pain or sputum production. She admits to chills, shortness of breath, cough, tachycardia and palpitations. Additionally she is concerned because her colostomy is an increase in output over the last couple of weeks. She reports that today she has had to have her colostomy bag changed to 5 times. Workup in the ED revealed hypokalemia with potassium of 2.2 chest x-ray revealed bronchitis Past Med Surg Social Fam HX - Past Medical History Medical history: asthma, COPD, GERD, hypertension, renal disease, thyroid disease Psychiatric history: no psych history - Past Surgical History Surgical History: appendectomy, cholecystectomy, colostomy, hysterectomy, other - Social History Smoking Status: Former smoker Smokeless Tobacco Status: No Alcohol use: none Drug use: none - Family History Mother Adopted: No Living Status: Hx Family Cardiac Disorders: Yes ([place]/ Stroke) Hx Family Respiratory Disorders: No Hx Family Cancer: No Hx Family GI Disorders: No Hx Family Endocrine Disorder: No Hx Family Neuromuscular Disorders: No Hx Family Neurologic Disorders: No Hx Family HEENT Disorders: No Hx Family Autoimmune Disorders: No Father Adopted: No Living Status: Hx Family Cardiac Disorders: Yes ([place]) Hx Family Respiratory Disorders: No Hx Family Cancer: No Hx Family GI Disorders: No Hx Family Endocrine Disorder: No Hx Family Neuromuscular Disorders: No Hx Family Neurologic Disorders: No Hx Family HEENT Disorders: No Hx Family Autoimmune Disorders: No Brother Living Status: Still Living Hx Family Cardiac Disorders: Yes Hx Family Respiratory Disorders: No Hx Family Endocrine Disorder: Yes Internal Medicine - H&P: Meds Amitriptyline [Elavil] 50 mg PO HS 09/19/15 [History] Cholecalciferol (Vitamin D3) [Vitamin D3] 5,000 unit PO DAILY #0 09/19/15 [ History] Ranitidine HCl [Zantac] 150 mg PO HS 09/19/15 [History] Cyanocobalamin (B-12) [Vitamin B12] 1,000 mcg IM QMONTH 02/21/17 [History] Levothyroxine Sodium [Synthroid] 300 mcg PO DAILY 02/21/17 [History] Mometasone/Formoterol [Dulera 100 Mcg/5 Mcg Inhaler] 2 puff IH BID 02/21/17 [ History] Lactobacillus [Culturelle] 1 each PO BID #60 cap.sprink 03/10/17 [Rx] Lidocaine/Prilocaine CREAM [Emla] 1 appl TP AD PRN 06/30/17 [History] Renal Vitamin [Renal Caps Softgel] 1 mg PO DAILY 06/30/17 [History] Acetaminophen [Tylenol] 650 mg PO Q6HR PRN #20 tab 07/10/17 [Rx] Menthol [Gridley] 3.2 mg MM Q4H PRN 07/16/17 [History] Calcitriol [Rocaltrol] 0.25 mcg PO DAILY #15 capsule 08/06/17 [Rx] Ferrous Sulfate 325 mg PO DAILY@0800 #30 tablet 08/06/17 [Rx] Acetylcysteine 10% 2 ml IH [id number] #30 inhsol 09/14/17 [Rx] Diltiazem CD (24hr) [Cardizem CD] 120 mg PO DAILY cap.er.24h 09/14/17 [Rx] GuaiFENesin ER [Mucinex] 600 mg PO BID 5 Days #10 tbbp.12hr 09/14/17 [Rx] Ipratropium/Albuterol Neb [Duoneb] 3 ml IH [id number] #30 inhsol 09/14/17 [Rx] Nicotine Patch [Nicoderm] 21 mg TD DAILY #30 patch.td24 09/14/17 [Rx] HYDROcodone/Acet 5/325 mg [Blue[place] 5-325 mg] 1 tab PO Q6H #14 tab 10/06/17 [Rx] 3 Allergy/AdvReac Type Severity Reaction Status Date / Time codeine AdvReac Severe Vomiting Verified 03/06/17 15:22 naproxen [From Naprosyn] AdvReac Severe Vomiting Verified 03/06/17 15:22 All Systems PM: A 10-system review of systems was performed and is negative for pertinent findings except as documented above in the HPI. - Constitutional Constitutional: chills, fatigue, malaise, weakness, weight loss, no fever(s), no falls, no night sweats - EENT Eyes: no change in vision, no discharge, no pain, no photophobia Ears: no ear discharge, no ear pain, no tinnitus Nose, mouth and throat: post-nasal drip, no dysphagia, no nasal discharge, no neck pain, no sore throat - Cardiovascular Cardiovascular ROS IM: dyspnea, dyspnea on exertion, palpitations, no chest pain , no diaphoresis, no edema, no lightheadedness, no syncope - Respiratory Respiratory: cough, dyspnea, wheezing, pain on inspiration, chest congestion, pain with cough (Mid sternal), no hemoptysis, no excessive phlegm production - Gastrointestinal Gastrointestinal: change in bowel habits, diarrhea (Increased colostomy output) , no abdominal pain, no hematemesis, no hematochezia, no melena, no nausea, no vomiting - Genitourinary Genitourinary: no change in urinary stream, no dysuria, no flank pain, no hematuria - Musculoskeletal Musculoskeletal ROS IM: no numbness, no tingling - Integumentary Integumentary IM: no rash, no unusual bruising - Neurological Neurological ROS: no confusion, no convulsions, no focal weakness, no numbness, no tingling, no tremor(s) - Hematologic/Lymphatic Hematologic/Lymphatic: no easy bruising - Constitutional Vitals: Temp Pulse Resp BP Pulse Ox 98.2 F 88 20 98/59 98 10/16/17 22:32 10/16/17 22:32 10/16/17 22:40 10/16/17 22:40 10/16/17 22:32 General appearance: Present: cooperative, mild distress, A&O X 3, answers questions appropriately - Head Head exam: Present: atraumatic, normocephalic - Eye Pupils: Present: PERRL - Neck Neck exam general surgery: Present: supple, trachea midline. Absent: lymphadenopathy - Respiratory Respiratory exam: Present: CTAB, prolonged expiratory phase, respiratory distress, rhonchi, tachypnea. Absent: accessory muscle use, rales, wheezes - Cardiovascular Cardiovascular exam: Present: RRR, +S1, +S2. Absent: diastolic murmur, gallop, rubs, systolic murmur - GI/Abdominal GI/Abdominal exam: Present: hyperactive bowel sounds, normal bowel sounds, soft , no peritoneal signs. Absent: distended, firm, guarding, rebound, tenderness - Extremities Exam Extremities exam: Present: normal capillary refill, warm, radial pulses palpable and symmetrical. Absent: calf tenderness, cyanotic, pedal edema, tenderness - Neurological Exam Neurological exam: Present: alert, oriented X3. Absent: facial droop, speech deficit Internal Med - H&P Results - Labs CBC & Chem 7: 10/16/17 19:35 10/16/17 20:33 - Diagnostic Studies Chest x-ray Status: image reviewed by me Additional comments: Bronchial wall thickening <Annie Lambert - Last Filed: 10/17/17 00:23> Date of Encounter: 10/17/17 Internal Medicine - H&P: HPI History of present illness: Ms. Parra is a 72 year old female All Systems PM: A 10-system review of systems was performed and is negative for pertinent findings except as documented above in the HPI. - Constitutional Vitals: Temp Pulse Resp BP Pulse Ox 98.2 F 88 22 98/59 98 10/16/17 22:32 10/16/17 22:32 10/16/17 23:42 10/16/17 22:40 10/16/17 23:42 Internal Med - H&P Results - Labs CBC & Chem 7: 10/16/17 19:35 10/16/17 20:33 - Attending Attestation I have personally performed a face to face evaluation on this patient. I have reviewed and agree with the care plan. History and Exam by me shows: 72 yo female with ESRD on MWF HD, cystectomy with urostomy who presents with weakness associated with hypoK and hypoMg likely 2/2 to GI loss. She was recently here several weeks for PNA and fall. Since returning home, she has not improved and has worsening weakness. She has chronic high output ostomy since her surgery with Dr Chambers many years ago 2012 and visits with an outpatient doctor whom she does not recall. She tells me she has chronic diarrhea since 2012. In the last week, she has noticed some worsening in ostomy output needing 4-5x ostomy change daily. She denies N/V. ROS 14 point review of systems reviewed as best as possible given presentation. Pertinent positive or negative as per HPI or otherwise reviewed as negative EKG reviewed by self with rate 73, NSR General - AAO x 3 Psych - Appropriate affect/speech. No agitation Eyes - MAUDE. Eye lids intact. No scleral icterus Neuro - No gross peripheral or central neuro deficits on inspection Heart - Sinus. RRR. S1 and S2 present. No added HS/murmurs appreciated. No elevated JVD appreciated. Lung - Adequate air entry b/l, No crackles/wheezes appreciated GI - Ostomy, Soft, non-tender. No hepatosplenomegaly/ascites. BS+ - Urostomy, no CVA tenderess Skin - Intact. No rash/petechiae/ecchymosis. Warm extremities MSK - Joints with normal ROM. No joint swellings HypoK and HypoMg 2/2 Acute on chronic diarrhea - IV and PO electrolyte replacement - doubt C.diff given normal WBC but with recent antibiotics, r/o infection with c.diff, stool infectious studies - if negative, would consider surgery or GI eval for options to decrease transit time, ostomy output. Was seen by GI last month ESRD on HD - visits with renal MWF HD Urostomy with pyuria - doubt clinical UTI - monitor for now, further management pending inpatient course Weakness - 2/2 chronic medical illness and now acute electrolyte disturbance - PT/OT, possible placement if qualify and agreeable
[2017-10-16] MEDS: Acetylcysteine 10% 2 ML INHSOL IH SCH (23:41)
[2017-10-16] MEDS: Ipratropium/Albuterol Neb 3 ML IH SCH (23:42)
[2017-10-17] MEDS: *HR* HYDROcodone/Acet 5/325 mg TABLET PO SCH ×2 (00:34→05:58)
[2017-10-17 01:09] LABS: Calcium 6.1 mg/dL (8.6-10.8); Potassium 2.6 mEq/L (3.5-4.5)
[2017-10-17] MEDS: Ipratropium/Albuterol Neb 3 ML IH SCH ×5 (03:39→20:33)
[2017-10-17] MEDS: Acetylcysteine 10% 2 ML INHSOL IH SCH ×5 (03:39→20:33)
[2017-10-17 04:20] LABS: Basophils % 0.2 %; Eosinophils # 0.1 K/mcL (0.0-0.6); Hematocrit 28.1 % (35.3-44.9); Hemoglobin 9.2 g/dL (11.5-15.4); Immature Granulocytes % 0.3 % (0-4); Lymphocytes # 2.8 K/mcL (0.6-4.6); Lymphocytes % 46.2 %; Mean Corpuscular HGB Conc 32.7 g/dL (31.6-35.5); Mean Corpuscular Hemoglobin 29.9 pg (28.0-33.3); Mean Corpuscular Volume 91.2 fL (83.0-100.0); Mean Platelet Volume 10.8 fL (9.4-12.4); Monocytes # 0.2 K/mcL (0.0-1.3); Monocytes % 3.6 %; Platelet Count 100 K/mcL (140-400); Red Blood Count 3.08 M/mcL (3.82-4.97); Red Cell Distribution Width 18.6 % (11.5-14.5); Segmented Neutrophils % 48.7 %
[2017-10-17 04:32] LABS: Magnesium 2.8 mg/dL (1.6-2.6); Potassium 3.1 mEq/L (3.5-4.5)
[2017-10-17 04:44] LABS: Calcium 5.8 mg/dL (8.6-10.8)
[2017-10-17] MEDS ORDERED: Calcium Gluconate 1,000 MG in D5% in Water 100 ML IVPB ONE ×2 (05:11→10:11)
[2017-10-17] MEDS ORDERED: 0.9 % Sodium Chloride 250 ML IVC PRN (07:45)
[2017-10-17] MEDS: Renal Vitamin 1 MG CAPSULE PO SCH (08:25)
[2017-10-17] MEDS: Nicotine 21 MG PATCH.TD24 TD SCH (08:25)
[2017-10-17] MEDS: Diltiazem CD (24hr) 120 MG CAPSULE PO SCH (08:25)
[2017-10-17] MEDS: Lactobacillus 1 EACH CAP.SPRINK PO SCH ×2 (08:25→21:49)
[2017-10-17] MEDS: Cholecalciferol (D-3) 1,000 UNIT TABLET PO SCH (08:25)
[2017-10-17] MEDS ORDERED: Cyanocobalamin (B-12) 1,000 MCG/ML VIAL IM SCH (09:00)
[2017-10-17] MEDS ORDERED: cefTRIAXone 1,000 MG in Water for inj. (sterile) 10 ML IVP SCH (09:00)
[2017-10-17] MEDS ORDERED: NON-FORMULARY MEDICATION 1 EACH EACH (Mometasone/Formoterol [Dulera 100 Mcg/5 Mcg Inhaler] IH SCH (09:00)
[2017-10-17] MEDS ORDERED: 0.9 % Sodium Chloride 1,000 ML ONE (09:03)
[2017-10-17 09:51] LABS: Hepatitis B Surface Antibody 566.24 mIU/mL; Hepatitis B Surface Antigen Nonreactive (Nonreactive)
--- NOTE | 2017-10-17 10:03 | Nephrology Consult Note ---
Date of Encounter: 10/17/17 Time of Encounter: 08:50 Assessment and Plan (1) ESRD (end stage renal disease) on dialysis Current Visit: Yes Status: Chronic I've ordered HD today with higher K+ and Ca++ baths to help replete these electrolytes, and HD will be for clearance but no fluid removal since she is chronic always volume depleted. Ultimately the short bowel syndrome has induced ESRD, malnutrition, persistent electrolyte depletion (Mg, Ca, K). Is she a candidate for chronic TPN? Oral nutrition literally goes right through her to the colostomy within minutes, which by the way often leads to spilling while on HD and often leads to interruption of dialysis. Please consult the SW to help obtain adequate supplies for her Urostomy and Colostomy -- she told me today that she is out of supplies at home. I suggested she consider Longterm care, but she declined and wants to live with her brother, she said. However she has been admitted so many times of late , plus with her worsening nutritional status, that it's clear that she'll continue to worsen if she wants to discharge back to home. I'll order more IV Calcium today as well. Tomorrow, I'll check Ca, Mg and K+ levels. Anemia of CKD: goal Hgb is 10-11. Will monitor for IV iron and/or EPO. Continue to follow a renal protective strategy. Thank you for consulting the [facility] service. 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: Chronic (3) Hypokalemia Current Visit: Yes Status: Acute (4) Hypomagnesemia Current Visit: Yes Status: Acute (5) Anemia in CKD (chronic kidney disease) Current Visit: Yes Status: Chronic Qualifiers: Chronic kidney disease stage: on chronic dialysis Qualified Code(s): N18.6 - End stage renal disease; D63.1 - Anemia in chronic kidney disease; D63.1 - Anemia in chronic kidney disease; Z99.2 - Dependence on renal dialysis; Z99.2 - Dependence on renal dialysis; Z99.2 - Dependence on renal dialysis; Z99.2 - Dependence on renal dialysis (6) Chronic diarrhea Current Visit: Yes Status: Chronic (7) Generalized weakness Current Visit: Yes Status: Chronic (8) Volume depletion, gastrointestinal loss Current Visit: Yes Status: Chronic (9) Hypocalcemia Current Visit: No Status: Acute (10) Colostomy care Current Visit: No Status: Chronic (11) Debility, unspecified Current Visit: No Status: Chronic (12) Presence of urostomy Current Visit: No Status: Chronic History of Present Illness - Reason for Consult Consult date: 10/17/17 end stage renal disease Requesting physician: Annie Lambert - Chief Complaint Generalized Fatigue - History of Present Illness Vannessa Parra is a very pleasant 71 y/o WF lady with a pmh of short gut syndrome with ostomy, progressive CKD and recent declaration of ESRD requiring HD who presented with worsening fatigue and multiple electrolyte deficiencies. She has been residing at home with her brother, she said since her last discharge from [facility]. 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 She voiced that she's continuing to lose weight and though she's eating, she still has chronic rapid bowel transit -- "it goes right through me," she said. She requested new options for her nutrition, since she feels that it's contributing to progressive slow decline and generalized weakness which has been many months in onset. She still has chronic cough with congestion and wheezing, she reported. She does not feel extra swollen in her lower extremities she reported. She denied any dialysis related problems recently such as AVF issues involving prolong bleeding or cramping from low BPs while on HD. Past Med Surg Social Fam HX - Past Medical History Medical history: asthma, atrial fibrillation, COPD, GERD, hypertension, renal disease, thyroid disease Psychiatric history: no psych history - Past Surgical History Surgical History: appendectomy, cholecystectomy, colostomy, hysterectomy, other - Social History Smoking Status: Light tobacco smoker Smokeless Tobacco Status: No Alcohol use: none Drug use: none - Family History Mother Adopted: No Living Status: Hx Family Cardiac Disorders: Yes ([place]/ Stroke) Hx Family Respiratory Disorders: No Hx Family Cancer: No Hx Family GI Disorders: No Hx Family Endocrine Disorder: No Hx Family Neuromuscular Disorders: No Hx Family Neurologic Disorders: No Hx Family HEENT Disorders: No Hx Family Autoimmune Disorders: No Father Adopted: No Living Status: Hx Family Cardiac Disorders: Yes ([place]) Hx Family Respiratory Disorders: No Hx Family Cancer: No Hx Family GI Disorders: No Hx Family Endocrine Disorder: No Hx Family Neuromuscular Disorders: No Hx Family Neurologic Disorders: No Hx Family HEENT Disorders: No Hx Family Autoimmune Disorders: No Brother Living Status: Still Living Hx Family Cardiac Disorders: Yes Hx Family Respiratory Disorders: No Hx Family Endocrine Disorder: Yes Medications and Allergies Cholecalciferol (Vitamin D3) [Vitamin D3] 5,000 unit PO DAILY #0 09/19/15 [ History] Ranitidine HCl [Zantac] 150 mg PO HS 09/19/15 [History] Cyanocobalamin (B-12) [Vitamin B12] 1,000 mcg IM QMONTH 02/21/17 [History] Levothyroxine Sodium [Synthroid] 300 mcg PO DAILY 02/21/17 [History] Mometasone/Formoterol [Dulera 100 Mcg/5 Mcg Inhaler] 2 puff IH BID 02/21/17 [ History] Lidocaine/Prilocaine CREAM [Emla] 1 appl TP AD PRN 06/30/17 [History] Renal Vitamin [Renal Caps Softgel] 1 mg PO DAILY 06/30/17 [History] Acetaminophen [Tylenol] 650 mg PO Q6HR PRN #20 tab 07/10/17 [Rx] Menthol [Magnolia] 3.2 mg MM Q4H PRN 07/16/17 [History] Ferrous Sulfate 325 mg PO DAILY@0800 #30 tablet 08/06/17 [Rx] Acetylcysteine 10% 2 ml IH [id number] #30 inhsol 09/14/17 [Rx] Diltiazem CD (24hr) [Cardizem CD] 120 mg PO DAILY cap.er.24h 09/14/17 [Rx] GuaiFENesin ER [Mucinex] 600 mg PO BID 5 Days #10 tbbp.12hr 09/14/17 [Rx] Nicotine Patch [Nicoderm] 21 mg TD DAILY #30 patch.td24 09/14/17 [Rx] Calcium Acetate [Phos-LO] 667 mg PO TIDWM 10/17/17 [History] 3 Allergy/AdvReac Type Severity Reaction Status Date / Time codeine AdvReac Severe Vomiting Verified 03/06/17 15:22 naproxen [From Naprosyn] AdvReac Severe Vomiting Verified 03/06/17 15:22 Review of Systems All Systems: reviewed and no additional remarkable complaints except as stated Exam - Vital Signs Vital signs: Initial Vital Signs Temp Pulse Resp BP Pulse Ox 98.0 F 90 22 92/64 98 10/16/17 17:56 10/16/17 17:56 10/16/17 17:56 10/16/17 17:56 10/16/17 17:56 Vital Signs - Last 8 Hours Temp Pulse Resp BP Pulse Ox 10/17/17 07:47 97.5 F L 76 18 104/61 100 10/17/17 07:41 18 98 10/17/17 04:02 98.2 F 79 18 97/42 95 10/17/17 03:39 20 98 Intake and Output 10/16/17 10/17/17 10/17/17 23:59 07:59 15:59 Intake Total 100 / 610 1368 / 1368 Output Total 500 / 500 Balance 100 / 610 868 / 868 Intake: IV Fluids 100 / 100 968 / 968 Calcium Gluconate 1,000 MG In 110 / 110 Dextrose 5% 100 ML @ 220 mls/hr IVPB ONCE ONE Rx#:[id number] Magnesium Sulfate 4 GM In 108 / 108 Dextrose 5% 100 ML @ 100 mls/hr IVPB ONCE ONE Rx#:[id number] Magnesium Sulfate Premix 2gm/ 50 / 50 50mL 2 gm In 50 ml @ 50 mls/hr IVPB Q1H [facility] Rx#:[id number] Potassium Chloride 10 mEq/100mL 100 / 100 200 / 200 10 meq In 100 ml @ 100 mls/hr IVPB Q1H [facility] Rx#:[id number] Oral 400 / 400 Output: Stool 500 / 500 Other: Meal MEATLOAF DINNER,CEREAL BARS,CRACKERS,JUICE Stool Size Large Large Stool Consistency liquid liquid Stool Color Brown Brown White Weight 54.3 kg 54.3 kg Blood Glucose* 114 147 Patient Weight 10/17/17 23:59 Weight 54.3 kg - General Appearance General appearance: cachectic, chronically ill, fatigue, frail EENT: ATNC, PERRL, mucous membranes dry Neck: supple Respiratory: wheezing, rales, course breath sounds, rhonchi Cardiology: no edema, regular rate, regular rhythm, normal S1, normal S2 - Dialysis Access Dialysis Vascular Access: Arteriovenous Fistula thrill: Yes bruit: Yes Gastrointestinal: normoactive bowel sounds, no tenderness, no guarding Additional Comments: Urostomy and Colostomy bags noted Integumentary: warm and dry, ecchymotic Neurologic: no focal deficit, no asterixis, alert and oriented x3 Musculoskeletal: no deformities, no erythema, no cyanosis Psychiatric: mood/affect appropriate, cooperative Results - Lab Results 10/17/17 04:00 10/19/17 04:22 Most recent lab results Calcium 6.1 mg/dL (8.6-10.8) L 10/17/17 07:30 Phosphorus 7.9 mg/dL (2.3-4.7) H 10/16/17 20:33 Magnesium 2.8 mg/dL (1.6-2.6) H 10/17/17 04:00 I reviewed inpatient progress notes (plus outpt notes from [facility] Dialysis unit), labs, meds, vitals and imaging. Consult Discharge Plan - Plan Referrals: Na Johansen, TYLER [Primary Care Provider] -
[2017-10-17] MEDS: *HR* HYDROcodone/Acet 5/325 mg TABLET PO PRN ×2 (12:27→21:50)
[2017-10-17 12:48] LABS: VBG Ionized Calcium 1.01 mmol/L (1.15-1.35)
--- NOTE | 2017-10-17 16:11 | Internal Med Progress Note ---
Date of Encounter: 10/17/17 Time of Encounter: 14:00 - Assessment and plan (1) Bronchitis Current Visit: Yes Status: Acute (2) Hypokalemia Current Visit: Yes Status: Acute (3) Hypomagnesemia Current Visit: Yes Status: Acute (4) Anemia in CKD (chronic kidney disease) Current Visit: Yes Status: Chronic Qualifiers: Chronic kidney disease stage: on chronic dialysis Qualified Code(s): N18.6 - End stage renal disease; D63.1 - Anemia in chronic kidney disease; D63.1 - Anemia in chronic kidney disease; Z99.2 - Dependence on renal dialysis; Z99.2 - Dependence on renal dialysis; Z99.2 - Dependence on renal dialysis; Z99.2 - Dependence on renal dialysis (5) Atrial fibrillation Current Visit: Yes Status: Chronic Qualifiers: Atrial fibrillation type: paroxysmal Qualified Code(s): I48.0 - Paroxysmal atrial fibrillation (6) COPD (chronic obstructive pulmonary disease) Current Visit: Yes Status: Chronic Qualifiers: COPD type: emphysema Emphysema type: panlobular Qualified Code(s): J43.1 - Panlobular emphysema (7) Chronic diarrhea Current Visit: Yes Status: Chronic (8) ESRD (end stage renal disease) on dialysis Current Visit: Yes Status: Chronic (9) Short bowel syndrome Current Visit: Yes Status: Chronic (10) Colostomy care Current Visit: No Status: Chronic (11) Ileostomy in place Current Visit: No Status: Chronic Assessment and plan: Bronchitis- Not on antibiotics and no leukocytosis, Pt seemed to be improving, she is seen trying to cough out mucus congestion. Continue duonebs. will stop mucomyst neb as she is not actively wheezing and has wet congestion. Perhaps more concerning than the bronchitis is the loss of weight and electrolytes occurring due short Gut syndrome, pt is following with GI outpatient. She was seen by Dietitian who recommends Chronic TPN to be infused via port. Due to adverse effects of parts counterman TPN, I will recommend a GI consult in the AM since she follows with them outpatient to determine if chronic TPN will be the best option for her. ESRD on HD. appreciate nephrology recommendations. Replace Electrolytes as needed. Continue Diltaizem, levothyroxine - Subjective Interval history: reports chest congestion, hopes she can get a solution to the high output from her colostomy. - Constitutional Vitals: Temp Pulse Resp BP Pulse Ox 97.3 F L 80 18 122/64 98 10/17/17 16:07 10/17/17 16:07 10/17/17 16:07 10/17/17 16:07 10/17/17 16:07 General appearance: Present: cooperative, mild distress, A&O X 3, answers questions appropriately - Head Head exam: Present: atraumatic, normocephalic - Eye Eye exam: Present: PERRL, conjuntiva pink, sclera anicteric Pupils: Present: PERRL - Neck Neck exam general surgery: Present: supple, trachea midline. Absent: lymphadenopathy - Respiratory Respiratory exam: Present: CTAB, rhonchi. Absent: accessory muscle use, rales, wheezes - Cardiovascular Cardiovascular exam: Present: RRR, +S1, +S2. Absent: diastolic murmur, gallop, rubs, systolic murmur - GI/Abdominal GI/Abdominal exam: Present: normal bowel sounds, soft, no peritoneal signs. Absent: distended, tenderness Additional comments: left side colostomy and right side ileostomy in place. - Extremities Exam Extremities exam: Present: warm, radial pulses palpable and symmetrical. Absent : calf tenderness, cyanotic, pedal edema - Neurological Exam Neurological exam: Present: CN II-XII intact, oriented X3, no focal deficits. Absent: pronater drift, facial droop, speech deficit - Skin Skin exam: Present: dry, intact Internal Medicine: Result - Labs CBC & Chem 7: 10/17/17 04:00 10/17/17 04:00 Labs: Short CBC 10/17/17 Range/Units 04:00 WBC 6.2 (4.3-11.1) K/mcL Hgb 9.2 L (11.5-15.4) g/dL Hct 28.1 L (35.3-44.9) % Plt Count 100 L (140-400) K/mcL Neutrophils # 3.0 (1.6-8.9) K/mcL BMP 10/17/17 10/17/17 10/17/17 00:50 04:00 07:30 Sodium 142 140 Potassium 2.6 L 3.1 L Chloride 97 L 97 L Carbon Dioxide 26 26 BUN 25 H 26 H Creatinine 6.79 H 6.70 H Glucose 133 H 139 H Calcium 6.1 L 5.8 L* 6.1 L Cardiac Enzymes 10/17/17 10/17/17 10/17/17 Range/Units 00:50 07:30 12:32 Troponin I 0.05 H* 0.05 H* 0.03 (0-0.03) ng/mL - ABG Interpretation ABG results: PT/INR, D-dimer PT 13.0 Seconds (9.4-12.1) H 10/16/17 19:35 Consult Discharge Plan - Plan Referrals: Na Johansen, FIELD EXAMINER [Primary Care Provider] -
--- NOTE | 2017-10-17 17:17 | Electrocardiograph Report ---
[place] [id number] Test Date: 2017-10-16 Pat Name: Vannessa Parra Department: [id number] Room: 2A44 Gender: F Senior Writer: ARANZA : 1945 Requested By: Kiel Buenrostro Order Number: [id number] Reading MD: Ashley Falcon Measurements Intervals [place] Rate: 73 P: 87 DE: 152 QRS: 74 QRSD: 93 T: 90 QT: 365 QTc: 391 Interpretive Statements SINUS RHYTHM LEFT VENTRICULAR HYPERTROPHY AND ST-T CHANGE [VOLTAGE CRITERIA PLUS ST/T ABNORMALITY] Electronically Signed On 10-17-2017 17:15:17 EST by Ashley Falcon
[2017-10-17 18:47] LABS: Adenovirus F 40/41 PCR Not detected (Not detect); Astrovirus PCR Not detected (Not detect); C.difficile Toxin A/B by PCR Not detected (Not detect); Campylobacter by PCR Not detected (Not detect); Cryptosporidium by PCR Not detected (Not detect); Cyclospora cayetanensis PCR Not detected (Not detect); E. coli O157 by PCR Not detected (Not detect); Entamoeba histolytica PCR Not detected (Not detect); Enteroaggregative E.coli(EAEC) Not detected (Not detect); Enteropathogenic E.coli(EPEC) Not detected (Not detect); Enterotoxigenic E.coli (ETEC) Not detected (Not detect); Giardia lamblia PCR Not detected (Not detect); Norovirus GI/GII PCR Not detected (Not detect); Plesiomonas shigelloides PCR Not detected (Not detect); Rotavirus A PCR Not detected (Not detect); Salmonella PCR Not detected (Not detect); Sapovirus PCR Not detected (Not detect); Shig/EnteroinvasiveE coli EIEC Not detected (Not detect); Shigalike tox-prod E coli STEC Not detected (Not detect); Vibrio PCR Not detected (Not detect); Vibrio cholerae PCR Not detected (Not detect); Yersinia enterocolitica PCR Not detected (Not detect)
[2017-10-17] MEDS ORDERED: Famotidine 20 MG TABLET PO SCH (21:00)
[2017-10-18] MEDS: Acetylcysteine 10% 2 ML INHSOL IH SCH ×7 (00:17→23:47)
[2017-10-18] MEDS: Ipratropium/Albuterol Neb 3 ML IH SCH ×7 (00:17→23:47)
[2017-10-18] MEDS: *HR* HYDROcodone/Acet 5/325 mg TABLET PO PRN ×3 (04:42→18:34)
[2017-10-18 05:12] LABS: Magnesium 1.7 mg/dL (1.6-2.6); Phosphorous 5.1 mg/dL (2.3-4.7)
[2017-10-18 05:16] LABS: Calcium 7.7 mg/dL (8.6-10.8); Potassium 4.3 mEq/L (3.5-4.5)
[2017-10-18] MEDS: Cholecalciferol (D-3) 1,000 UNIT TABLET PO SCH (07:55)
[2017-10-18] MEDS: Diltiazem CD (24hr) 120 MG CAPSULE PO SCH (07:55)
[2017-10-18] MEDS: Renal Vitamin 1 MG CAPSULE PO SCH (07:55)
[2017-10-18] MEDS: Lactobacillus 1 EACH CAP.SPRINK PO SCH ×2 (07:55→20:36)
[2017-10-18] MEDS: Nicotine 21 MG PATCH.TD24 TD SCH (07:56)
[2017-10-18] MEDS ORDERED: Benzonatate 100 MG CAPSULE PO PRN (12:32)
--- NOTE | 2017-10-18 12:35 | Internal Med Progress Note ---
Date of Encounter: 10/18/17 Time of Encounter: 12:33 - Assessment and plan (1) Severe malnutrition Current Visit: Yes Status: Acute Assessment and plan: Due to short bowel syndrome/chronic diarrhea With multiple electrolyte imbalances Nutrition consult to possibly start TPN requires fluid restriction as the patient is very congested and we will not have dialysis until Friday 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: Chronic (3) Hypokalemia Current Visit: No Status: Resolved Assessment and plan: Repleted (4) COPD (chronic obstructive pulmonary disease) Current Visit: No Status: Chronic Assessment and plan: No exacerbation Not on steroids Qualifiers: COPD type: COPD with acute exacerbation Qualified Code(s): J44.1 - Chronic obstructive pulmonary disease with (acute) exacerbation (5) Chest pain Current Visit: No Status: Acute Assessment and plan: Secondary to cough Start Tessalon Perles and increased dose of hydrocodone Qualifiers: Chest pain type: chest pain on breathing Qualified Code(s): R07.1 - Chest pain on breathing; R07.81 - Pleurodynia (6) Colostomy care Current Visit: No Status: Chronic (7) Attention to urostomy Current Visit: No Status: Chronic (8) ESRD on dialysis Current Visit: No Status: Chronic Assessment and plan: Followed by nephrology (9) Magnesium deficiency Current Visit: No Status: Acute Assessment and plan: Repleted (10) Paroxysmal a-fib Current Visit: No Status: Chronic Assessment and plan: Not on anticoagulation due to chronic anemia Continue diltiazem - Subjective Interval history: Coughing constantly, nonproductive cough. Having chills, no fevers. Constant diarrhea. Abdominal cramps, does not make urine. Denies any headaches, complaining of chest pain after coughing - Constitutional Vitals: Temp Pulse Resp BP Pulse Ox 98.6 F 84 17 113/48 98 10/18/17 11:13 10/18/17 11:13 10/18/17 11:13 10/18/17 11:13 10/18/17 11:13 General appearance: Present: cooperative, mild distress, A&O X 3, answers questions appropriately - Head Head exam: Present: atraumatic, normocephalic - Eye Eye exam: Present: PERRL, conjuntiva pink, sclera anicteric Pupils: Present: PERRL - Neck Neck exam general surgery: Present: supple, trachea midline. Absent: lymphadenopathy - Respiratory Respiratory exam: Present: CTAB, rales (Diffuse crackles with upper airway congestion, right upper chest port). Absent: accessory muscle use, rhonchi, wheezes - Cardiovascular Cardiovascular exam: Present: RRR, +S1, +S2. Absent: diastolic murmur, gallop, rubs, systolic murmur - GI/Abdominal GI/Abdominal exam: Present: normal bowel sounds, soft, no peritoneal signs. Absent: distended, tenderness Additional comments: Colostomy and urostomy - Extremities Exam Extremities exam: Present: warm, radial pulses palpable and symmetrical. Absent : calf tenderness, cyanotic, pedal edema - Neurological Exam Neurological exam: Present: CN II-XII intact, oriented X3, no focal deficits. Absent: pronater drift, facial droop, speech deficit - Skin Skin exam: Present: dry, intact Internal Medicine: Result - Labs CBC & Chem 7: 10/17/17 04:00 10/18/17 04:45 Labs: BMP 10/18/17 04:45 Sodium 141 Potassium 4.3 D Chloride 105 Carbon Dioxide 25 BUN 15 D Creatinine 3.67 H Glucose 99 Calcium 7.7 L D Cardiac Enzymes 10/17/17 Range/Units 12:32 Troponin I 0.03 (0-0.03) ng/mL - ABG Interpretation ABG results: PT/INR, D-dimer PT 13.0 Seconds (9.4-12.1) H 10/16/17 19:35 - VTE Documentation of Mechanical Device: Intermittent pneumatic compression device Consult Discharge Plan - Plan Referrals: Na Johansen, SEATING AND MOBILITY TECHNOLOGIST [Primary Care Provider] -
[2017-10-18] MEDS ORDERED: Calcium Gluconate 2,000 MG in D5% in Water 100 ML IVPB ONE (13:05)
--- NOTE | 2017-10-18 13:05 | Nephrology Progress Note ---
Date of Encounter: 10/18/17 Time of Encounter: 11:50 - Assessment and Plan (1) ESRD (end stage renal disease) on dialysis Current Visit: Yes Status: Chronic Appreciate primary team regarding nutrition assistance. Hypocalcemia: will add another dose of IV calcium gluc. Tentatively planning for her next HD for Friday. 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: Chronic (3) Hypokalemia Current Visit: Yes Status: Acute (4) Hypomagnesemia Current Visit: Yes Status: Acute (5) Anemia in CKD (chronic kidney disease) Current Visit: Yes Status: Chronic Qualifiers: Chronic kidney disease stage: on chronic dialysis Qualified Code(s): N18.6 - End stage renal disease; D63.1 - Anemia in chronic kidney disease; D63.1 - Anemia in chronic kidney disease; Z99.2 - Dependence on renal dialysis; Z99.2 - Dependence on renal dialysis; Z99.2 - Dependence on renal dialysis; Z99.2 - Dependence on renal dialysis (6) Chronic diarrhea Current Visit: Yes Status: Chronic (7) Generalized weakness Current Visit: Yes Status: Chronic (8) Volume depletion, gastrointestinal loss Current Visit: Yes Status: Chronic (9) Hypocalcemia Current Visit: No Status: Acute (10) Colostomy care Current Visit: No Status: Chronic (11) Debility, unspecified Current Visit: No Status: Chronic (12) Presence of urostomy Current Visit: No Status: Chronic Subjective Principal diagnosis: ESRD, Short gut syndrome Interval history: Pt was s/e and she did not affirm N/V but did report chronic LE cramping. She did not report problems with HD from Friday. Objective - Vital Signs Vital signs: Vital Signs Temp Pulse Resp BP Pulse Ox 10/18/17 11:13 98.6 F 84 17 113/48 98 10/18/17 08:39 14 98 10/18/17 07:59 98 10/18/17 07:36 98.4 F 80 17 126/61 98 10/18/17 04:31 18 96 10/18/17 04:21 98.5 F 90 16 118/40 96 10/18/17 00:17 18 98 10/17/17 23:21 98.4 F 82 16 117/53 98 10/17/17 20:34 18 99 10/17/17 19:44 97.7 F 83 16 110/50 98 10/17/17 16:21 18 97 10/17/17 16:07 97.3 F L 80 18 122/64 98 10/17/17 15:37 97.4 F L 20 105/72 10/17/17 14:45 112/83 10/17/17 14:30 114/56 10/17/17 14:15 108/46 10/17/17 14:00 114/51 10/17/17 13:45 124/54 10/17/17 13:30 128/57 10/17/17 13:15 120/55 Intake and Output 10/17/17 10/18/17 10/18/17 23:59 07:59 15:59 Intake Total 240 / 240 20 / 20 Output Total 750 / 750 250 / 250 400 / 400 Balance -750 / -750 -10 / -10 -380 / -380 Intake: Oral 240 / 240 20 / 20 Output: Stool 750 / 750 250 / 250 400 / 400 Other: Meal Breakfast Percent of Meal Consumed 100% Stool Size Large Moderate Stool Consistency liquid liquid soft Stool Color Brown Brown Brown Weight 55 kg Blood Glucose* 226 178 125 Patient Weight 10/18/17 23:59 Weight 55 kg - General Appearance Exam: General appearance: Present: well-developed, cachectic, chronically ill, fatigue , frail EENT: Present: ATNC, PERRL, mucous membranes moist Neck: Present: supple Respiratory: Present: rales, course breath sounds, rhonchi Cardiology: Present: no edema, regular rate, normal S1, normal S2 Dialysis Vascular Access: Arteriovenous Fistula thrill: Yes bruit: Yes Gastrointestinal: Present: normoactive bowel sounds, no tenderness, no guarding Additional Comments: Ostomy bags noted Integumentary: Present: warm and dry Neurologic: Present: no focal deficit, no asterixis, alert and oriented x3 Musculoskeletal: Present: no deformities, no erythema, no cyanosis Psychiatric: Present: mood/affect appropriate, cooperative - Lab 10/17/17 04:00 10/19/17 04:22 Most recent lab results Calcium 7.7 mg/dL (8.6-10.8) L D 10/18/17 04:45 Phosphorus 5.1 mg/dL (2.3-4.7) H 10/18/17 04:45 Magnesium 1.7 mg/dL (1.6-2.6) 10/18/17 04:45 - VTE Documentation of Mechanical Device: Intermittent pneumatic compression device Consult Discharge Plan - Plan Referrals: Na Johansen, TYLER [Primary Care Provider] -
[2017-10-18] MEDS: *HR* HYDROcodone/Acet 7.5/325 mg TABLET PO PRN ×2 (13:44→20:37)
[2017-10-18] MEDS ORDERED: D10% in Water 500 ML IVC PRN ×3 (15:08→15:21)
[2017-10-18] MEDS ORDERED: Famotidine 20 MG TABLET PO SCH (15:30)
[2017-10-19] MEDS: *HR* HYDROcodone/Acet 7.5/325 mg TABLET PO PRN ×3 (02:42→17:15)
[2017-10-19] MEDS: Acetylcysteine 10% 2 ML INHSOL IH SCH ×5 (03:42→20:38)
[2017-10-19] MEDS: Ipratropium/Albuterol Neb 3 ML IH SCH ×5 (03:42→20:38)
[2017-10-19 05:04] LABS: Albumin 2.5 g/dL (3.5-5.0); Albumin/Globulin Ratio 0.9 (1.1-2.2); Bilirubin,Total 0.2 mg/dL (0.2-1.2); Calcium 7.7 mg/dL (8.6-10.8); Globulin 2.8 g/dL (2.4-3.5); Magnesium 1.4 mg/dL (1.6-2.6); Total Protein 5.3 g/dL (6.0-8.3)
[2017-10-19 05:06] LABS: Phosphorous 7.7 mg/dL (2.3-4.7); Potassium 5.8 mEq/L (3.5-4.5)
[2017-10-19] MEDS: Lactobacillus 1 EACH CAP.SPRINK PO SCH ×2 (09:17→20:51)
[2017-10-19] MEDS: Nicotine 21 MG PATCH.TD24 TD SCH (09:17)
[2017-10-19] MEDS: Diltiazem CD (24hr) 120 MG CAPSULE PO SCH (09:18)
[2017-10-19] MEDS: Cholecalciferol (D-3) 1,000 UNIT TABLET PO SCH (09:18)
[2017-10-19] MEDS: Renal Vitamin 1 MG CAPSULE PO SCH (09:18)
--- NOTE | 2017-10-19 09:59 | Nephrology Progress Note ---
Date of Encounter: 10/19/17 Time of Encounter: 08:30 - Assessment and Plan (1) ESRD (end stage renal disease) on dialysis Current Visit: Yes Status: Chronic Hyperkalemia and hyperphosphatemia: I counseled the pt for >50% of the encounter about avoid XS phos and K+ based foods, and to follow a renal diet. Will provide Kayexalate today for the K+ of 5.8. Appreciate primary team regarding nutrition assistance: Clinimix noted Hypocalcemia: stable, and may improve with IV nutrition, so will monitor today. Tentatively planning for her next HD for Friday. 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: Chronic (3) Hypomagnesemia Current Visit: Yes Status: Acute (4) Anemia in CKD (chronic kidney disease) Current Visit: Yes Status: Chronic Qualifiers: Chronic kidney disease stage: on chronic dialysis Qualified Code(s): N18.6 - End stage renal disease; D63.1 - Anemia in chronic kidney disease; D63.1 - Anemia in chronic kidney disease; Z99.2 - Dependence on renal dialysis; Z99.2 - Dependence on renal dialysis; Z99.2 - Dependence on renal dialysis; Z99.2 - Dependence on renal dialysis (5) Chronic diarrhea Current Visit: Yes Status: Chronic (6) Generalized weakness Current Visit: Yes Status: Chronic (7) Volume depletion, gastrointestinal loss Current Visit: Yes Status: Chronic (8) Hypocalcemia Current Visit: No Status: Acute (9) Colostomy care Current Visit: No Status: Chronic (10) Debility, unspecified Current Visit: No Status: Chronic (11) Presence of urostomy Current Visit: No Status: Chronic (12) Hyperkalemia Current Visit: Yes Status: Acute See above Subjective Principal diagnosis: ESRD, Short Bowel Syndrome Interval history: She reported feeling a little better, when I saw and examined her earlier today. She reported chronic LE cramping pains. Objective - Vital Signs Vital signs: Vital Signs Temp Pulse Resp BP Pulse Ox 10/19/17 09:25 98 10/19/17 07:51 98.1 F 89 17 129/63 98 10/19/17 03:42 18 98 10/19/17 03:36 98.0 F 79 16 163/83 92 10/19/17 00:13 98.2 F 94 16 120/65 100 10/18/17 23:47 18 99 10/18/17 20:58 98 10/18/17 20:09 98.9 F 91 16 120/61 98 10/18/17 19:50 18 99 10/18/17 16:16 20 98 10/18/17 15:59 98.3 F 88 18 129/55 97 10/18/17 12:01 16 96 10/18/17 11:13 98.6 F 84 17 113/48 98 Intake and Output 10/18/17 10/19/17 10/19/17 23:59 07:59 15:59 Intake Total 920 / 920 710 / 710 Output Total 1200 / 1200 200 / 200 300 / 300 Balance -280 / -280 -200 / -200 410 / 410 Intake: IV Fluids 120 / 120 Oral 920 / 920 590 / 590 Output: Stool 1200 / 1200 200 / 200 300 / 300 Other: Meal Dinner Breakfast Percent of Meal Consumed 100% 100% Stool Size Moderate Moderate Stool Consistency loose loose loose liquid soft Stool Characteristics Normal for Patient Stool Color Brown Brown Yellow Weight 55.3 kg Blood Glucose* 137 89 Patient Weight 10/19/17 23:59 Weight 55.3 kg - General Appearance General appearance: Present: well-developed, cachectic, chronically ill, fatigue , frail EENT: Present: ATNC, PERRL, mucous membranes moist Neck: Present: supple Respiratory: Present: rales, course breath sounds, rhonchi Cardiology: Present: no edema, regular rate, normal S1, normal S2 Dialysis Vascular Access: Arteriovenous Fistula thrill: Yes bruit: Yes Gastrointestinal: Present: normoactive bowel sounds, no tenderness, no guarding Additional Comments: Ostomy bags noted Integumentary: Present: warm and dry Neurologic: Present: no focal deficit, no asterixis, alert and oriented x3 Musculoskeletal: Present: no deformities, no erythema, no cyanosis Psychiatric: Present: mood/affect appropriate, cooperative - Lab 10/17/17 04:00 10/19/17 04:22 Most recent lab results Calcium 7.7 mg/dL (8.6-10.8) L 10/19/17 04:22 Phosphorus 7.7 mg/dL (2.3-4.7) H D 10/19/17 04:22 Magnesium 1.4 mg/dL (1.6-2.6) L 10/19/17 04:22 - VTE Documentation of Mechanical Device: Intermittent pneumatic compression device Consult Discharge Plan - Plan Referrals: Na Johansen, TYLER [Primary Care Provider] -
[2017-10-19] MEDS ORDERED: Levofloxacin 500 MG/100 ML 500 MG/100 ML BAG IVPB ONE (10:00)
--- NOTE | 2017-10-19 10:01 | Internal Med Progress Note ---
Date of Encounter: 10/19/17 Time of Encounter: 09:58 - Assessment and plan (1) Chest pain Current Visit: No Status: Acute Assessment and plan: Secondary to cough, possible history of rib fracture Possible pulmonary edema, history of diastolic CHF, possible acute exacerbation Start Lasix 80 mg IV twice a day Order chest x-ray Start Tessalon Perles and increased dose of hydrocodone Also has history of UTI growing Enterobacter, start Levaquin Urine cultures also growing enterococcus, sensitivity pending Qualifiers: Qualified Code(s): R07.1 - Chest pain on breathing; R07.81 - Pleurodynia (2) Severe malnutrition Current Visit: Yes Status: Acute Assessment and plan: Due to short bowel syndrome/chronic diarrhea With multiple electrolyte imbalances Nutrition consult to possibly start TPN ( may hold TPN as the patient is extremely congested) requires fluid restriction, she is very congested and we will not have dialysis until Friday (3) Short bowel syndrome Current Visit: Yes Status: Chronic (4) Hypokalemia Current Visit: No Status: Resolved Assessment and plan: Now has hyperkalemia, Kayexalate ordered (5) COPD (chronic obstructive pulmonary disease) Current Visit: No Status: Chronic Assessment and plan: No exacerbation Not on steroids Qualifiers: Qualified Code(s): J44.1 - Chronic obstructive pulmonary disease with (acute ) exacerbation (6) Colostomy care Current Visit: No Status: Chronic (7) Attention to urostomy Current Visit: No Status: Chronic (8) ESRD on dialysis Current Visit: No Status: Chronic Assessment and plan: Followed by nephrology (9) Magnesium deficiency Current Visit: No Status: Acute Assessment and plan: Repleted (10) Paroxysmal a-fib Current Visit: No Status: Chronic Assessment and plan: Not on anticoagulation due to chronic anemia Continue diltiazem - Subjective Interval history: Coughing constantly, nonproductive cough. Having chills, no fevers. Constant diarrhea. Abdominal cramps, does make urine. Denies any headaches, complaining of chest pain after coughing mostly on the left side - Constitutional Vitals: Temp Pulse Resp BP Pulse Ox 98.1 F 89 17 129/63 98 10/19/17 07:51 10/19/17 07:51 10/19/17 07:51 10/19/17 07:51 10/19/17 09:25 General appearance: Present: cooperative, mild distress, A&O X 3, answers questions appropriately Exam: - Head Head exam: Present: atraumatic, normocephalic - Eye Eye exam: Present: PERRL, conjuntiva pink, sclera anicteric Pupils: Present: PERRL - Neck Neck exam general surgery: Present: supple, trachea midline. Absent: lymphadenopathy - Respiratory Respiratory exam: Present: CTAB, rales (Diffuse crackles with upper airway congestion, right upper chest port). Absent: accessory muscle use, rhonchi, wheezes - Cardiovascular Cardiovascular exam: Present: RRR, +S1, +S2. Absent: diastolic murmur, gallop, rubs, systolic murmur - GI/Abdominal GI/Abdominal exam: Present: normal bowel sounds, soft, no peritoneal signs. Absent: distended, tenderness Additional comments: Colostomy and urostomy - Extremities Exam Extremities exam: Present: warm, radial pulses palpable and symmetrical. Absent : calf tenderness, cyanotic, pedal edema - Neurological Exam Neurological exam: Present: CN II-XII intact, oriented X3, no focal deficits. Absent: pronater drift, facial droop, speech deficit - Skin Skin exam: Present: dry, intact Internal Medicine: Result - Labs CBC & Chem 7: 10/17/17 04:00 10/19/17 04:22 Labs: BMP 10/19/17 04:22 Sodium 139 Potassium 5.8 H D Chloride 105 Carbon Dioxide 24 BUN 31 H D Creatinine 5.68 H D Glucose 86 Calcium 7.7 L Liver Function 10/19/17 Range/Units 04:22 Total Bilirubin 0.2 (0.2-1.2) mg/dL AST 12 (5-34) Units/L ALT 12 (0-55) Units/L Alkaline Phosphatase 58 (38-126) Units/L Albumin 2.5 L (3.5-5.0) g/dL - ABG Interpretation ABG results: PT/INR, D-dimer PT 13.0 Seconds (9.4-12.1) H 10/16/17 19:35 - VTE Documentation of Mechanical Device: Intermittent pneumatic compression device Consult Discharge Plan - Plan Referrals: Na Johansen, POWER BENDER OPERATOR [Primary Care Provider] -
[2017-10-19] MEDS: Furosemide 80 MG in 0.9 % Sodium Chloride 50 ML IVPB SCH ×2 (12:16→20:50)
[2017-10-19] MEDS: *HR* HYDROcodone/Acet 5/325 mg TABLET PO PRN ×2 (13:24→20:51)
[2017-10-19] MEDS: Ondansetron 4 MG/2 ML VIAL IVP PRN ×2 (13:24→20:50)
[2017-10-19] MEDS ORDERED: Clinimix 5%-20% SOLUTION 2,000 ML with MVI, adult with vitamin K 10 ML, Sodium Acetat... IVC SCH ×2 (17:00)
[2017-10-19] MEDS: Famotidine 20 MG TABLET PO SCH (20:51)
[2017-10-20] MEDS: Ipratropium/Albuterol Neb 3 ML IH SCH ×7 (00:09→23:46)
[2017-10-20] MEDS: Acetylcysteine 10% 2 ML INHSOL IH SCH ×7 (00:09→23:46)
[2017-10-20] MEDS: *HR* HYDROcodone/Acet 7.5/325 mg TABLET PO PRN (03:25)
[2017-10-20 03:40] LABS: Red Cell Distribution Width 19.2 % (11.5-14.5)
[2017-10-20 03:42] LABS: Hematocrit 22.6 % (35.3-44.9); Hemoglobin 6.9 g/dL (11.5-15.4); Immature Platelets 2.8 % (1.1-6.1); Mean Corpuscular HGB Conc 30.5 g/dL (31.6-35.5); Mean Corpuscular Hemoglobin 29.4 pg (28.0-33.3); Mean Corpuscular Volume 96.2 fL (83.0-100.0); Mean Platelet Volume 10.3 fL (9.4-12.4); Red Blood Count 2.35 M/mcL (3.82-4.97)
[2017-10-20 03:52] LABS: Calcium 6.9 mg/dL (8.6-10.8); Magnesium 1.1 mg/dL (1.6-2.6); Phosphorous 9.3 mg/dL (2.3-4.7); Potassium 5.4 mEq/L (3.5-4.5)
[2017-10-20] MEDS ORDERED: 0.9 % Sodium Chloride 250 ML IVC PRN (06:21)
[2017-10-20] MEDS: Cholecalciferol (D-3) 1,000 UNIT TABLET PO SCH (08:04)
[2017-10-20] MEDS: Lactobacillus 1 EACH CAP.SPRINK PO SCH ×2 (08:04→21:47)
[2017-10-20] MEDS: Nicotine 21 MG PATCH.TD24 TD SCH (08:04)
[2017-10-20] MEDS: Diltiazem CD (24hr) 120 MG CAPSULE PO SCH (08:05)
[2017-10-20] MEDS: Renal Vitamin 1 MG CAPSULE PO SCH (08:05)
--- NOTE | 2017-10-20 11:55 | Nephrology Progress Note ---
Date of Encounter: 10/20/17 Time of Encounter: 11:51 - Assessment and Plan (1) ESRD on dialysis Current Visit: No Status: Chronic Hypocalcemia, hyperphosphatemia worse today, hyperkalemia slightly better. Hypocalcemia likely related to secondary hyperparathyroidism. She is currently receiving her dialysis treatment. Patient receiving TPN for nutrition, we will plan for TPN at home is discharged for further nutritional support. Continue with Friday dialysis schedule, tentatively planned for next dialysis treatment on Friday. Continue Calcitrol, oral iron supplementation , Aranesp. (2) Hypomagnesemia Current Visit: Yes Status: Acute (3) Short bowel syndrome Current Visit: Yes Status: Chronic (4) Anemia in chronic kidney disease Current Visit: No Status: Chronic Qualifiers: Chronic kidney disease stage: on chronic dialysis Qualified Code(s): N18.6 - End stage renal disease; D63.1 - Anemia in chronic kidney disease; Z99.2 - Dependence on renal dialysis (5) Volume depletion, gastrointestinal loss Current Visit: Yes Status: Chronic (6) Generalized weakness Current Visit: Yes Status: Chronic (7) Chronic diarrhea Current Visit: Yes Status: Chronic (8) Hypocalcemia Current Visit: No Status: Acute (9) Hyperkalemia Current Visit: No Status: Resolved Subjective Principal diagnosis: ESRD, Short gut syndrome Interval history: Patient seen and examined at dialysis. States that she feels better today. She has no specific complaints at this time. Objective - Vital Signs Vital signs: Vital Signs Temp Pulse Resp BP Pulse Ox 10/20/17 11:35 107/54 10/20/17 11:30 105/53 10/20/17 11:15 102/50 10/20/17 11:00 107/54 10/20/17 10:45 106/50 10/20/17 10:30 105/50 10/20/17 10:15 100/55 10/20/17 10:00 112/56 10/20/17 09:45 108/50 10/20/17 09:30 107/53 10/20/17 09:15 112/52 10/20/17 09:00 112/57 10/20/17 08:45 119/54 10/20/17 08:30 120/57 10/20/17 08:15 97.0 F L 15 121/61 98 10/20/17 07:19 97.9 F 87 16 114/62 98 10/20/17 04:10 98.5 F 89 14 123/63 96 10/20/17 03:46 16 100 10/20/17 00:10 16 97 10/19/17 20:39 14 97 10/19/17 19:24 98.6 F 89 16 115/53 99 10/19/17 16:31 16 115/72 97 10/19/17 15:42 98.3 F 87 17 115/72 98 Intake and Output 10/19/17 10/20/17 10/20/17 23:59 07:59 15:59 Intake Total 480 / 480 778 / 778 600 / 600 Output Total 100 / 100 Balance 480 / 480 678 / 678 600 / 600 Intake: IV Fluids 58 / 58 Lasix 80 MG In 0.9 % Sodium 58 / 58 Chloride 50 ML @ 100 mls/hr IVPB BID [facility] Rx#:[id number] Oral 480 / 480 720 / 720 0 / 0 Intake, Rinseback and Flushes 600 / 600 Output: Stool 100 / 100 Other: Meal Dinner Percent of Meal Consumed 100% Stool Size Large Stool Consistency liquid liquid soft Stool Color Brown Brown Yellow Weight 55.3 kg Blood Glucose* 108 139 156 Hemodialysis Net Fluid Removed 2419 (mL) Patient Weight 10/20/17 23:59 Weight 55.3 kg - General Appearance General appearance: Present: well-developed, chronically ill, frail EENT: Present: ATNC, PERRL, mucous membranes moist Neck: Present: supple Respiratory: Present: course breath sounds, rhonchi (Bilateral, diffuse) Cardiology: Present: no edema, regular rate, regular rhythm Dialysis Vascular Access: Arteriovenous Fistula thrill: Yes bruit: Yes Gastrointestinal: Present: normoactive bowel sounds, no tenderness, no guarding Additional Comments: Ostomy bag present Integumentary: Present: no rash, warm and dry Neurologic: Present: no focal deficit, alert and oriented x3 Musculoskeletal: Present: no erythema, no cyanosis, no clubbing Psychiatric: Present: mood/affect appropriate, cooperative - Lab 10/20/17 14:00 10/20/17 03:30 Most recent lab results Calcium 6.9 mg/dL (8.6-10.8) L 10/20/17 03:30 Phosphorus 9.3 mg/dL (2.3-4.7) H 10/20/17 03:30 Magnesium 1.1 mg/dL (1.6-2.6) L 10/20/17 03:30 - VTE Documentation of Mechanical Device: Intermittent pneumatic compression device Consult Discharge Plan - Plan Referrals: Na Johansen, TYLER [Primary Care Provider] -
--- NOTE | 2017-10-20 11:58 | Internal Med Progress Note ---
Date of Encounter: 10/20/17 Time of Encounter: 11:55 - Assessment and plan (1) Attention to urostomy Current Visit: No Status: Chronic Assessment and plan: UTI with VRE and Enterobacter, the patient is extremely deconditioned, planing of abdominal pain, has low blood pressures, I do not think she could tolerate another possible infection and we will treat her with antibiotics for that reason Continue Levaquin and add Zyvox ( VRE) (2) Chest pain Current Visit: No Status: Acute Assessment and plan: Secondary to cough, possible history of rib fracture, acute pulmonary edema Possible pulmonary edema, history of diastolic CHF, possible acute exacerbation Continue Lasix 80 mg IV twice a day chest x-ray: Showed pulmonary vascular congestion with increased bilateral. Here opacities likely representing edema. Unchanged nondisplaced fracture anterior left seventh rib Tessalon Perles and hydrocodone g Qualifiers: Qualified Code(s): R07.1 - Chest pain on breathing; R07.81 - Pleurodynia (3) Severe malnutrition Current Visit: Yes Status: Acute Assessment and plan: Due to short bowel syndrome/chronic diarrhea With multiple electrolyte imbalances start TPN ( may hold TPN if becomes more short of breath as the patient is extremely congested) requires fluid restriction (4) Short bowel syndrome Current Visit: Yes Status: Chronic (5) Hypokalemia Current Visit: No Status: Resolved Assessment and plan: Now has hyperkalemia, consider another dose of Kayexalate if not improved after dialysis (6) COPD (chronic obstructive pulmonary disease) Current Visit: No Status: Chronic Assessment and plan: No exacerbation Not on steroids Qualifiers: Qualified Code(s): J44.1 - Chronic obstructive pulmonary disease with (acute ) exacerbation (7) Colostomy care Current Visit: No Status: Chronic (8) ESRD on dialysis Current Visit: No Status: Chronic Assessment and plan: Followed by nephrology (9) Magnesium deficiency Current Visit: No Status: Acute Assessment and plan: Repleted (10) Paroxysmal a-fib Current Visit: No Status: Chronic Assessment and plan: Not on anticoagulation due to chronic anemia Continue diltiazem - Subjective Interval history: Feels extremely weak. Is very congested Coughing constantly, nonproductive cough. Having chills, no fevers. Constant diarrhea. Abdominal cramps, does make urine. Denies any headaches, complaining of chest pain after coughing mostly on the left side - Constitutional Vitals: Temp Pulse Resp BP Pulse Ox 97.0 F L 87 15 107/54 98 10/20/17 08:15 10/20/17 07:19 10/20/17 08:15 10/20/17 11:35 10/20/17 08:15 General appearance: Present: cooperative, mild distress, A&O X 3, answers questions appropriately Exam: - Head Head exam: Present: atraumatic, normocephalic - Eye Eye exam: Present: PERRL, conjuntiva pink, sclera anicteric Pupils: Present: PERRL - Neck Neck exam general surgery: Present: supple, trachea midline. Absent: lymphadenopathy - Respiratory Respiratory exam: Present: CTAB, rales (Diffuse crackles with upper airway congestion, right upper chest port). Absent: accessory muscle use, rhonchi, wheezes - Cardiovascular Cardiovascular exam: Present: RRR, +S1, +S2. Absent: diastolic murmur, gallop, rubs, systolic murmur - GI/Abdominal GI/Abdominal exam: Present: normal bowel sounds, soft, no peritoneal signs. Absent: distended, tenderness Additional comments: Colostomy and urostomy bags in place - Extremities Exam Extremities exam: Present: warm, radial pulses palpable and symmetrical. Absent : calf tenderness, cyanotic, pedal edema - Neurological Exam Neurological exam: Present: CN II-XII intact, oriented X3, no focal deficits. Absent: pronater drift, facial droop, speech deficit - Skin Skin exam: Present: dry, intact Internal Medicine: Result - Labs CBC & Chem 7: 10/20/17 03:30 10/20/17 03:30 Labs: Short CBC 10/20/17 Range/Units 03:30 WBC 4.4 (4.3-11.1) K/mcL Hgb 6.9 L D (11.5-15.4) g/dL Hct 22.6 L (35.3-44.9) % Plt Count 79 L (140-400) K/mcL BMP 10/20/17 03:30 Sodium 144 Potassium 5.4 H Chloride 108 Carbon Dioxide 22 BUN 39 H Creatinine 6.76 H Glucose 101 H Calcium 6.9 L - ABG Interpretation ABG results: PT/INR, D-dimer PT 13.0 Seconds (9.4-12.1) H 10/16/17 19:35 - VTE Documentation of Mechanical Device: Intermittent pneumatic compression device Consult Discharge Plan - Plan Referrals: Na Johansen CNP [Primary Care Provider] -
[2017-10-20] MEDS ORDERED: 0.9 % Sodium Chloride 2,000 ML ONE (12:35)
[2017-10-20] MEDS: Ondansetron 4 MG/2 ML VIAL IVP PRN ×2 (12:57→18:23)
[2017-10-20] MEDS: Magnesium Oxide 400 MG TABLET PO SCH (12:57)
[2017-10-20] MEDS: Furosemide 40 MG/4 ML VIAL IVP SCH ×2 (13:54→17:43)
[2017-10-20 14:12] LABS: Hematocrit 23.9 % (35.3-44.9); Hemoglobin 7.5 g/dL (11.5-15.4)
[2017-10-20] MEDS: Furosemide 80 MG in 0.9 % Sodium Chloride 50 ML IVPB SCH (14:46)
[2017-10-20] MEDS ORDERED: VITAMIN K IVC SCH (17:00)
[2017-10-20] MEDS ORDERED: MVI IVC SCH (17:00)
[2017-10-20] MEDS ORDERED: Furosemide 40 MG/4 ML VIAL IVP SCH (17:00)
[2017-10-20] MEDS ORDERED: [UNRECOGNIZED DRUG - OTHER] IVC SCH (17:00)
[2017-10-20] MEDS ORDERED: CLINIMIX IVC SCH (17:00)
[2017-10-20] MEDS: *HR* HYDROcodone/Acet 5/325 mg TABLET PO PRN (18:24)
[2017-10-21] MEDS: *HR* HYDROcodone/Acet 5/325 mg TABLET PO PRN ×4 (00:38→20:45)
[2017-10-21] MEDS: Ondansetron 4 MG/2 ML VIAL IVP PRN ×4 (01:49→20:48)
[2017-10-21] MEDS: Acetylcysteine 10% 2 ML INHSOL IH SCH ×5 (04:02→21:14)
[2017-10-21] MEDS: Ipratropium/Albuterol Neb 3 ML IH SCH ×5 (04:02→21:14)
[2017-10-21 07:21] LABS: Calcium 8.2 mg/dL (8.6-10.8); Magnesium 1.4 mg/dL (1.6-2.6); Phosphorous 4.6 mg/dL (2.3-4.7); Potassium 4.2 mEq/L (3.5-4.5)
[2017-10-21] MEDS: Furosemide 40 MG/4 ML VIAL IVP SCH ×2 (09:09→17:11)
[2017-10-21] MEDS: Magnesium Oxide 400 MG TABLET PO SCH (09:09)
[2017-10-21] MEDS: Lactobacillus 1 EACH CAP.SPRINK PO SCH ×2 (09:09→20:46)
[2017-10-21] MEDS: Renal Vitamin 1 MG CAPSULE PO SCH (09:09)
[2017-10-21] MEDS: Nicotine 21 MG PATCH.TD24 TD SCH (09:10)
[2017-10-21] MEDS: Levofloxacin 500 MG/100 ML 500 MG/100 ML BAG IVPB SCH (09:10)
[2017-10-21] MEDS: Cholecalciferol (D-3) 1,000 UNIT TABLET PO SCH (09:10)
[2017-10-21] MEDS: Diltiazem CD (24hr) 120 MG CAPSULE PO SCH (09:10)
[2017-10-21 09:15] LABS: Hemoglobin 6.9 g/dL (11.5-15.4); Mean Corpuscular Volume 98.7 fL (83.0-100.0)
[2017-10-21 09:17] LABS: Hematocrit 22.6 % (35.3-44.9); Immature Platelets 3.5 % (1.1-6.1); Mean Corpuscular HGB Conc 30.5 g/dL (31.6-35.5); Mean Corpuscular Hemoglobin 30.1 pg (28.0-33.3); Red Blood Count 2.29 M/mcL (3.82-4.97); Red Cell Distribution Width 19.5 % (11.5-14.5)
[2017-10-21] MEDS ORDERED: Levofloxacin 250 MG/50 ML 250 MG/50 ML BAG IVPB SCH (10:00)
--- NOTE | 2017-10-21 10:13 | Internal Med Progress Note ---
<Jerome Tripp - Last Filed: 10/21/17 12:50> Date of Encounter: 10/21/17 Time of Encounter: 08:15 - Assessment and plan (1) Attention to urostomy Current Visit: Yes Status: Chronic Assessment and plan: UTI with VRA and enterobacter. Due to extreme deconditioning, she would likely not tolerate another infection, so we are treating with levaquin and zyvox. (2) Severe malnutrition Current Visit: Yes Status: Acute Assessment and plan: Secondary to short bowel syndrome and chronic diarrhea Has multiple electrolyte imbalances Continue TPN as tolerated with fluid overload (3) Short bowel syndrome Current Visit: Yes Status: Chronic Assessment and plan: See plan of care above (4) Chest pain Current Visit: Yes Status: Acute Assessment and plan: Secondary to fractured rib on left Hydrocodone for pain control Anti-tussives, including tessalon perles Qualifiers: Chest pain type: chest pain on breathing Qualified Code(s): R07.1 - Chest pain on breathing; R07.81 - Pleurodynia (5) Colostomy care Current Visit: No Status: Chronic (6) ESRD on dialysis Current Visit: No Status: Chronic Assessment and plan: Nephrology following (7) Fluid overload Current Visit: Yes Status: Acute Assessment and plan: Continue lasix Avoid fluids beyond TPN Qualifiers: Hypervolemia type: unspecified Qualified Code(s): E87.70 - Fluid overload, unspecified (8) COPD (chronic obstructive pulmonary disease) Current Visit: Yes Status: Chronic Assessment and plan: Stable No exacerbation currently Ordered incentive spirometer Qualifiers: COPD type: emphysema Emphysema type: panlobular Qualified Code(s): J43.1 - Panlobular emphysema (9) Paroxysmal a-fib Current Visit: No Status: Chronic Assessment and plan: Diltiazem No anticoagulation due to anemia (10) Hypokalemia Current Visit: Yes Status: Resolved Assessment and plan: Resolved. Continue to monitor. (11) Magnesium deficiency Current Visit: Yes Status: Acute Assessment and plan: Magnesium replacement with TPN (12) DVT prophylaxis Current Visit: Yes Status: Acute Assessment and plan: SCDs (13) Anemia in CKD (chronic kidney disease) Current Visit: Yes Status: Chronic Assessment and plan: Hgb of 6.9 this morning Asymptomatic currently Patient should be transfused with scheduled dialysis Qualifiers: Chronic kidney disease stage: on chronic dialysis Qualified Code(s): N18.6 - End stage renal disease; D63.1 - Anemia in chronic kidney disease; D63.1 - Anemia in chronic kidney disease; Z99.2 - Dependence on renal dialysis; Z99.2 - Dependence on renal dialysis; Z99.2 - Dependence on renal dialysis; Z99.2 - Dependence on renal dialysis - Subjective Interval history: Patient feels that she is slowly improving, but is still experiencing significant chest pain associated with coughing. She does admit that the hydrocodone and anti-tussives have helped. - Constitutional Vitals: Temp Pulse Resp BP Pulse Ox 98.1 F 88 18 132/71 99 10/21/17 07:37 10/21/17 07:37 10/21/17 07:48 10/21/17 07:37 10/21/17 09:29 General appearance: Present: cooperative, A&O X 3, answers questions appropriately - Head Head exam: Present: atraumatic, normal inspection, normocephalic - ENT ENT exam: Present: mucous membranes dry - Neck Neck exam general surgery: Present: trachea midline - Respiratory Respiratory exam: Present: rales, rhonchi, wheezes. Absent: accessory muscle use, respiratory distress - Cardiovascular Cardiovascular exam: Present: RRR, +S1, +S2 - GI/Abdominal GI/Abdominal exam: Present: normal bowel sounds, soft, no peritoneal signs. Absent: tenderness Additional comments: urostomy and colostomy in place - Neurological Exam Neurological exam: Present: alert, oriented X3 - Psychiatric Psychiatric exam: Present: normal affect, normal mood - Skin Skin exam: Present: dry, warm Internal Medicine: Result - Labs CBC & Chem 7: 10/21/17 09:00 10/21/17 06:11 Labs: Short CBC 10/20/17 10/21/17 Range/Units 14:00 09:00 WBC 4.6 (4.3-11.1) K/mcL Hgb 7.5 L 6.9 L (11.5-15.4) g/dL Hct 23.9 L 22.6 L (35.3-44.9) % Plt Count 69 L (140-400) K/mcL BMP 10/21/17 06:11 Sodium 142 Potassium 4.2 D Chloride 105 Carbon Dioxide 26 BUN 23 H D Creatinine 3.78 H Glucose 119 H Calcium 8.2 L D - ABG Interpretation ABG results: PT/INR, D-dimer PT 13.0 Seconds (9.4-12.1) H 10/16/17 19:35 - VTE Documentation of Mechanical Device: Intermittent pneumatic compression device Consult Discharge Plan - Plan Referrals: Na Johansen, LASER/ELECTRO [employer]ICS TECHNICIAN [Primary Care Provider] - (Please call upon discharge) <Ben-Wayne Ramirez - Last Filed: 10/21/17 15:46> Date of Encounter: 10/21/17 - Constitutional Vitals: Temp Pulse Resp BP Pulse Ox 98.1 F 88 17 143/64 100 10/21/17 07:37 10/21/17 11:26 10/21/17 11:26 10/21/17 11:26 10/21/17 11:26 Internal Medicine: Result - Labs CBC & Chem 7: 10/21/17 09:00 10/21/17 06:11 Labs: Short CBC 10/21/17 Range/Units 09:00 WBC 4.6 (4.3-11.1) K/mcL Hgb 6.9 L (11.5-15.4) g/dL Hct 22.6 L (35.3-44.9) % Plt Count 69 L (140-400) K/mcL BMP 10/21/17 06:11 Sodium 142 Potassium 4.2 D Chloride 105 Carbon Dioxide 26 BUN 23 H D Creatinine 3.78 H Glucose 119 H Calcium 8.2 L D - ABG Interpretation ABG results: PT/INR, D-dimer PT 13.0 Seconds (9.4-12.1) H 10/16/17 19:35 - Attending Attestation I examined this patient and my medical decision-making was reviewed with the Resident Physician. I agree with the documented findings, disposition and treatment plan as described except to the extent set forth below. I have seen and examined the patient. Patient is a 72-year-old female with past medical history of COPD, GERD, hypertension and renal disease. Admitted for the UTI with VRE. Patient also has severe malnutrition and short bowel syndrome. Patient is currently on TPN. She is on Zyvox and Levaquin. No acute events or complaints.
[2017-10-21] MEDS ORDERED: Clinimix 5%-20% SOLUTION 2,000 ML with MVI, adult with vitamin K 10 ML, Sodium Acetat... IVC SCH (17:00)
[2017-10-21] MEDS: Famotidine 20 MG TABLET PO SCH (20:45)
[2017-10-22] MEDS: Ipratropium/Albuterol Neb 3 ML IH SCH ×7 (00:17→23:53)
[2017-10-22] MEDS: Acetylcysteine 10% 2 ML INHSOL IH SCH ×7 (00:17→23:53)
[2017-10-22] MEDS: *HR* HYDROcodone/Acet 7.5/325 mg TABLET PO PRN ×2 (04:39→13:31)
[2017-10-22 05:19] LABS: Hematocrit 22.9 % (35.3-44.9); Immature Platelets 4.1 % (1.1-6.1); Mean Corpuscular HGB Conc 30.6 g/dL (31.6-35.5); Mean Corpuscular Hemoglobin 29.8 pg (28.0-33.3); Mean Corpuscular Volume 97.4 fL (83.0-100.0); Mean Platelet Volume 10.7 fL (9.4-12.4); Red Blood Count 2.35 M/mcL (3.82-4.97); Red Cell Distribution Width 18.9 % (11.5-14.5)
[2017-10-22 05:36] LABS: Calcium 8.2 mg/dL (8.6-10.3); Magnesium 1.8 mg/dL (1.6-2.6); Phosphorous 5.3 mg/dL (2.7-4.5); Potassium 4.8 mEq/L (3.5-5.1)
[2017-10-22] MEDS ORDERED: 0.9 % Sodium Chloride 250 ML IVC PRN (06:04)
[2017-10-22] MEDS ORDERED: 0.9 % Sodium Chloride 2,000 ML ONE (07:07)
[2017-10-22] MEDS: Diltiazem CD (24hr) 120 MG CAPSULE PO SCH (07:50)
[2017-10-22] MEDS: Magnesium Oxide 400 MG TABLET PO SCH (07:50)
[2017-10-22] MEDS: Renal Vitamin 1 MG CAPSULE PO SCH (07:51)
[2017-10-22] MEDS: Lactobacillus 1 EACH CAP.SPRINK PO SCH ×2 (07:51→20:32)
[2017-10-22] MEDS: Furosemide 40 MG/4 ML VIAL IVP SCH ×2 (07:52→16:43)
[2017-10-22] MEDS: Nicotine 21 MG PATCH.TD24 TD SCH (07:52)
[2017-10-22] MEDS: Cholecalciferol (D-3) 1,000 UNIT TABLET PO SCH (07:53)
--- NOTE | 2017-10-22 10:36 | Nephrology Progress Note ---
Date of Encounter: 10/22/17 Time of Encounter: 09:18 - Assessment and Plan (1) ESRD (end stage renal disease) on dialysis Current Visit: Yes Status: Chronic Pt was s/e while on HD with a 3Ca bath Rec out Home Health for ostomy care plus outpt Home Health for Clinimix continuation qHS as discussed with Dietary a few days ago. I spoke with the floor RN today to help ensure that this gets arranged for her severe nutritional deficiency secondary to Short Gut Syndrome. Thank you 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: Chronic See above. I've asked the RN to make sure that Home Health is arranged to help the pt have appropriate supplies for her ostomy bags (3) Hypokalemia Current Visit: Yes Status: Acute Resolved. Will monitor. She is actually at more risk of hyperkalemia from ESRD, but from time to time the high colostomy outpt may also induce stool K+ wasting and hypokalemia, which was noted on admission. Will need lab monitoring over the long terms. (4) Hypomagnesemia Current Visit: Yes Status: Acute Will monitor. (5) Anemia in CKD (chronic kidney disease) Current Visit: Yes Status: Chronic Goal Hgb is 10-11. To cont to receive Aranesp while hospitalized. Qualifiers: Chronic kidney disease stage: on chronic dialysis Qualified Code(s): N18.6 - End stage renal disease; D63.1 - Anemia in chronic kidney disease; D63.1 - Anemia in chronic kidney disease; Z99.2 - Dependence on renal dialysis; Z99.2 - Dependence on renal dialysis; Z99.2 - Dependence on renal dialysis; Z99.2 - Dependence on renal dialysis (6) Chronic diarrhea Current Visit: Yes Status: Chronic (7) Generalized weakness Current Visit: Yes Status: Chronic (8) Volume depletion, gastrointestinal loss Current Visit: Yes Status: Chronic (9) Hypocalcemia Current Visit: No Status: Acute Higher Ca bath and Clinimix with Ca (10) Colostomy care Current Visit: No Status: Chronic (11) Debility, unspecified Current Visit: No Status: Chronic (12) Presence of urostomy Current Visit: No Status: Chronic Subjective Principal diagnosis: ESRD, Short gut syndrome Interval history: Pt was s/e while on HD. She did not report N/V/D but affirmed having an ongoing cough and aches/pains of the LEs. Objective - Vital Signs Vital signs: Vital Signs Temp Pulse Resp BP Pulse Ox 10/22/17 08:14 97 10/22/17 07:04 97.9 F 85 16 132/62 97 10/22/17 04:09 98.1 F 90 16 141/70 98 10/22/17 00:17 18 98 10/21/17 23:49 98.5 F 80 16 110/63 98 10/21/17 21:14 18 100 10/21/17 20:42 98.3 F 83 16 105/62 100 10/21/17 18:31 98 18 134/49 99 10/21/17 18:13 90 18 140/56 99 10/21/17 17:55 98.0 F 98 20 144/58 99 10/21/17 16:46 93 17 122/44 96 10/21/17 15:57 18 98 10/21/17 11:26 88 17 143/64 100 10/21/17 11:20 18 98 Intake and Output 10/21/17 10/22/17 10/22/17 23:59 07:59 15:59 Intake Total 0 / 0 600 / 600 290 / 290 Output Total 400 / 400 0 / 0 Balance -400 / -400 600 / 600 290 / 290 Intake: IV Fluids 0 / 0 Zyvox Premix 600mg/300mL 600 mg 0 / 0 In 300 ml @ 150 mls/hr IVPB Q12HR [facility] Rx#:[id number] Oral 600 / 600 290 / 290 Output: Urine 0 / 0 Stool 400 / 400 Other: Meal Breakfast Percent of Meal Consumed 100% Stool Consistency soft Weight 55 kg Blood Glucose* 149 148 Patient Weight 10/22/17 23:59 Weight 55 kg - General Appearance Exam: General appearance: Present: well-developed, chronically ill, frail EENT: Present: ATNC, PERRL, mucous membranes moist Neck: Present: supple Respiratory: Present: course breath sounds, rhonchi (Bilateral, diffuse) Cardiology: Present: no edema, regular rate, regular rhythm Dialysis Vascular Access: Arteriovenous Fistula thrill: Yes bruit: Yes Gastrointestinal: Present: normoactive bowel sounds, no tenderness, no guarding Additional Comments: Ostomy bag present Integumentary: Present: no rash, warm and dry Neurologic: Present: no focal deficit, alert and oriented x3 Musculoskeletal: Present: no erythema, no cyanosis, no clubbing Psychiatric: Present: mood/affect appropriate, cooperative - Lab 10/22/17 04:45 10/22/17 04:45 Most recent lab results Calcium 8.2 mg/dL (8.6-10.3) L 10/22/17 04:45 Phosphorus 5.3 mg/dL (2.7-4.5) H 10/22/17 04:45 Magnesium 1.8 mg/dL (1.6-2.6) 10/22/17 04:45 - VTE Documentation of Mechanical Device: Intermittent pneumatic compression device Consult Discharge Plan - Plan Referrals: Na Johansen, WEB SYSTEMS DEVELOPER [Primary Care Provider] - (Please call upon discharge) Prescriptions: Linezolid 600 MG/300 ML [Zyvox Premix 600mg/300mL] 600 mg IVPB Q12HR 2 Days #4 bag
[2017-10-22] MEDS ORDERED: D10% in Water 500 ML IVC PRN (11:25)
--- NOTE | 2017-10-22 11:37 | Internal Med Progress Note ---
<Jerome Tripp - Last Filed: 10/22/17 11:35> Date of Encounter: 10/22/17 Time of Encounter: 11:35 - Assessment and plan (1) Attention to urostomy Current Visit: Yes Status: Chronic Assessment and plan: UTI with VRE and enterobacter. Treating with levaquin (Day 4) and Zyvox (Day 3). Anticipate discharge on Friday. Patient will need IV zyvox at home BID for 2 days once discharged. (2) Severe malnutrition Current Visit: Yes Status: Acute Assessment and plan: Secondary to short bowel syndrome and chronic diarrhea Has multiple electrolyte imbalances Continue TPN as tolerated with fluid overload (3) Short bowel syndrome Current Visit: Yes Status: Chronic Assessment and plan: See plan of care above (4) Chest pain Current Visit: Yes Status: Acute Assessment and plan: Secondary to fractured rib on left Hydrocodone for pain control Anti-tussives, including tessalon perles Qualifiers: Chest pain type: chest pain on breathing Qualified Code(s): R07.1 - Chest pain on breathing; R07.81 - Pleurodynia (5) Colostomy care Current Visit: No Status: Chronic (6) ESRD on dialysis Current Visit: No Status: Chronic Assessment and plan: Nephrology following Dialysis today (7) Fluid overload Current Visit: Yes Status: Acute Assessment and plan: Continue lasix Avoid fluids beyond TPN Qualifiers: Hypervolemia type: unspecified Qualified Code(s): E87.70 - Fluid overload, unspecified (8) COPD (chronic obstructive pulmonary disease) Current Visit: Yes Status: Chronic Assessment and plan: Stable No exacerbation currently Qualifiers: COPD type: emphysema Emphysema type: panlobular Qualified Code(s): J43.1 - Panlobular emphysema (9) Paroxysmal a-fib Current Visit: No Status: Chronic Assessment and plan: Diltiazem No anticoagulation due to anemia (10) Hypokalemia Current Visit: Yes Status: Resolved Assessment and plan: Resolved. Continue to monitor. (11) Magnesium deficiency Current Visit: Yes Status: Acute Assessment and plan: Magnesium replacement with TPN (12) Anemia in CKD (chronic kidney disease) Current Visit: Yes Status: Chronic Assessment and plan: Hgb of 7.0 this morning Asymptomatic currently Transfuse tomorrow Qualifiers: Chronic kidney disease stage: on chronic dialysis Qualified Code(s): N18.6 - End stage renal disease; D63.1 - Anemia in chronic kidney disease; D63.1 - Anemia in chronic kidney disease; Z99.2 - Dependence on renal dialysis; Z99.2 - Dependence on renal dialysis; Z99.2 - Dependence on renal dialysis; Z99.2 - Dependence on renal dialysis (13) DVT prophylaxis Current Visit: Yes Status: Acute Assessment and plan: SCDs - Subjective Interval history: Patient continues to improve. No significant overnight changes. Patient was having dialysis today, was resting comfortably. - Constitutional Vitals: Temp Pulse Resp BP Pulse Ox 97.9 F 85 16 132/62 97 10/22/17 07:04 10/22/17 07:04 10/22/17 07:04 10/22/17 07:04 10/22/17 08:14 General appearance: Present: cooperative, A&O X 3, answers questions appropriately - Head Head exam: Present: atraumatic, normal inspection, normocephalic - ENT ENT exam: Present: mucous membranes dry - Neck Neck exam general surgery: Present: trachea midline - Respiratory Respiratory exam: Present: rales, rhonchi, wheezes. Absent: accessory muscle use, respiratory distress - Cardiovascular Cardiovascular exam: Present: RRR, +S1, +S2 - GI/Abdominal GI/Abdominal exam: Present: normal bowel sounds, soft, no peritoneal signs. Absent: tenderness Additional comments: Urostomy and colostomy in place - Neurological Exam Neurological exam: Present: alert, oriented X3 - Psychiatric Psychiatric exam: Present: normal affect, normal mood - Skin Skin exam: Present: dry, warm Internal Medicine: Result - Labs CBC & Chem 7: 10/22/17 04:45 10/22/17 04:45 Labs: Short CBC 10/22/17 Range/Units 04:45 WBC 4.6 (4.3-11.1) K/mcL Hgb 7.0 L (11.5-15.4) g/dL Hct 22.9 L (35.3-44.9) % Plt Count 68 L (140-400) K/mcL BMP 10/22/17 04:45 Sodium 136 Potassium 4.8 Chloride 102 Carbon Dioxide 25 BUN 39 H Creatinine 4.65 H Glucose 95 Calcium 8.2 L - ABG Interpretation ABG results: PT/INR, D-dimer PT 13.0 Seconds (9.4-12.1) H 10/16/17 19:35 - VTE Documentation of Mechanical Device: Intermittent pneumatic compression device Consult Discharge Plan - Plan Referrals: Na Johansen, [employer] [Primary Care Provider] - (Please call upon discharge) <Ben-Wayne Ramirez - Last Filed: 10/22/17 14:12> Date of Encounter: 10/22/17 - Constitutional Vitals: Temp Pulse Resp BP Pulse Ox 98.2 F 84 18 117/61 98 10/22/17 13:26 10/22/17 13:26 10/22/17 13:26 10/22/17 13:26 10/22/17 13:26 Internal Medicine: Result - Labs CBC & Chem 7: 10/22/17 04:45 10/22/17 04:45 Labs: Short CBC 10/22/17 Range/Units 04:45 WBC 4.6 (4.3-11.1) K/mcL Hgb 7.0 L (11.5-15.4) g/dL Hct 22.9 L (35.3-44.9) % Plt Count 68 L (140-400) K/mcL BMP 10/22/17 04:45 Sodium 136 Potassium 4.8 Chloride 102 Carbon Dioxide 25 BUN 39 H Creatinine 4.65 H Glucose 95 Calcium 8.2 L - ABG Interpretation ABG results: PT/INR, D-dimer PT 13.0 Seconds (9.4-12.1) H 10/16/17 19:35 - Attending Attestation I examined this patient and my medical decision-making was reviewed with the Resident Physician. I agree with the documented findings, disposition and treatment plan as described except to the extent set forth below. I have seen and examined the patient. Patient is currently on hemodialysis. Tolerating well. TPN is being continued. No other acute events or complaints.
[2017-10-22] MEDS: Ondansetron 4 MG/2 ML VIAL IVP PRN ×2 (13:31→20:32)
--- NOTE | 2017-10-22 14:55 | Physician Discharge Referral ---
<ReynaNeil - Last Filed: 10/22/17 14:52> Home Health/Hosp Referral Info Transfer to: Home Health Provider in Charge Post Discharge: PCP - Diagnosis (1) Attention to urostomy Priority: Primary Status: Chronic (2) Severe malnutrition Priority: Primary Status: Chronic (3) Short bowel syndrome Priority: Primary Status: Chronic (4) Chest pain Priority: Primary Status: Acute (5) Colostomy care Priority: Primary Status: Chronic (6) ESRD (end stage renal disease) on dialysis Priority: Primary Status: Chronic (7) Fluid overload Priority: Primary Status: Acute (8) COPD (chronic obstructive pulmonary disease) Priority: Primary Status: Chronic (9) Paroxysmal a-fib Priority: Primary Status: Chronic (10) Hypokalemia Priority: Primary Status: Resolved (11) Magnesium deficiency Status: Acute (12) Anemia in CKD (chronic kidney disease) Priority: Primary Status: Chronic (13) DVT prophylaxis Priority: Secondary Status: Acute - Respiratory Orders None Smoking Cessation: Smoking cessation has been advised. For more information, call the [employer] Quit Line at 1-306-AOEI-NOW. - Diet/Nutrition Diet/Nutrition Orders: Renal Diet/Nutrition: List: Patient has been started on Total Parenteral Nutrition - Services Needed Following services are medically necessary services: Nursing, Home Health Aide, Physical Therapy, Occupational Therapy, Home Infusion - Transfer Medications Prescriptions: RX: Linezolid 600 MG/300 ML [Zyvox Premix 600mg/300mL] 600 mg IVPB Q12HR 2 Days #4 bag Home Medications: RX: Cholecalciferol (Vitamin D3) [Vitamin D3] 5,000 unit PO DAILY #0 09/19/15 [ History] RX: Ranitidine HCl [Zantac] 150 mg PO HS 09/19/15 [History] RX: Cyanocobalamin (B-12) [Vitamin B12] 1,000 mcg IM QMONTH 02/21/17 [History] RX: Levothyroxine Sodium [Synthroid] 300 mcg PO DAILY 02/21/17 [History] RX: Mometasone/Formoterol [Dulera 100 Mcg/5 Mcg Inhaler] 2 puff IH BID 02/21/17 [History] RX: Lidocaine/Prilocaine CREAM [Emla] 1 appl TP AD PRN 06/30/17 [History] RX: Renal Vitamin [Renal Caps Softgel] 1 mg PO DAILY 06/30/17 [History] RX: Acetaminophen [Tylenol] 650 mg PO Q6HR PRN #20 tab 07/10/17 [Rx] RX: Menthol [[place]] 3.2 mg MM Q4H PRN 07/16/17 [History] RX: Ferrous Sulfate 325 mg PO DAILY@0800 #30 tablet 08/06/17 [Rx] RX: Acetylcysteine 10% 2 ml IH [id number] #30 inhsol 09/14/17 [Rx] RX: Diltiazem CD (24hr) [Cardizem CD] 120 mg PO DAILY cap.er.24h 09/14/17 [Rx] RX: GuaiFENesin ER [Mucinex] 600 mg PO BID 5 Days #10 tbbp.12hr 09/14/17 [Rx] RX: Nicotine Patch [Nicoderm] 21 mg TD DAILY #30 patch.td24 09/14/17 [Rx] Calcium Acetate [Phos-LO] 667 mg PO TIDWM 10/17/17 [History] RX: Linezolid 600 MG/300 ML [Zyvox Premix 600mg/300mL] 600 mg IVPB Q12HR 2 Days #4 bag 10/22/17 [Rx] Allergies/Adverse Reactions: 3 Allergy/AdvReac Type Severity Reaction Status Date / Time codeine AdvReac Severe Vomiting Verified 03/06/17 15:22 naproxen [From Naprosyn] AdvReac Severe Vomiting Verified 03/06/17 15:22 Certification: Further, I certify that my clinical findings support that this patient is homebound (i.e. absences from home require considerable and taxing effort and are for medical reasons or congregational services or infrequently or short duration when for other reasons) because: Homebound Reason: Patient requires assistance of a person or device to safely leave home, Leaving home requires considerable and taxing effort due to condition, Altered mental status requiring supervision when leaving home Attestation: My signature below is to certify that this patient is under my care and that I, or nurse practitioner, or a physician's clinical nursing assistant working with me, has a face-to -face encounter with this patient. <Wayne Chao - Last Filed: 10/22/17 15:18> - Respiratory Orders Smoking Cessation: Smoking cessation has been advised. For more information, call the [place] [employer] Quit Line at 3-469-QJRK-NOW. Certification: Further, I certify that my clinical findings support that this patient is homebound (i.e. absences from home require considerable and taxing effort and are for medical reasons or congregational services or infrequently or short duration when for other reasons) because: Attestation: My signature below is to certify that this patient is under my care and that I, or nurse practitioner, or a physician's clinical nursing assistant working with me, has a face-to -face encounter with this patient.
[2017-10-22] MEDS ORDERED: Clinimix 5%-20% SOLUTION 2,000 ML with MVI, adult with vitamin K 10 ML, Sodium Acetat... IVC SCH (17:00)
--- NOTE | 2017-10-22 20:03 | Electrocardiograph Report ---
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
[2017-10-22] MEDS: *HR* HYDROcodone/Acet 5/325 mg TABLET PO PRN (20:30)
[2017-10-23] MEDS: Acetylcysteine 10% 2 ML INHSOL IH SCH ×6 (03:39→23:37)
[2017-10-23] MEDS: Ipratropium/Albuterol Neb 3 ML IH SCH ×6 (03:39→23:37)
[2017-10-23] MEDS: *HR* HYDROcodone/Acet 7.5/325 mg TABLET PO PRN (04:08)
[2017-10-23 04:24] LABS: Basophils % 0.5 %; Eosinophils # 0.1 K/mcL (0.0-0.6); Eosinophils % 2.7 %; Hematocrit 20.2 % (35.3-44.9); Hemoglobin 6.2 g/dL (11.5-15.4); Immature Granulocytes % 0.2 % (0-4); Mean Corpuscular HGB Conc 30.7 g/dL (31.6-35.5); Mean Corpuscular Hemoglobin 30.2 pg (28.0-33.3); Mean Corpuscular Volume 98.5 fL (83.0-100.0); Mean Platelet Volume 10.7 fL (9.4-12.4); Monocytes # 0.2 K/mcL (0.0-1.3); Monocytes % 4.7 %; Neutrophils # 2.7 K/mcL (1.6-8.9); Red Blood Count 2.05 M/mcL (3.82-4.97); Red Cell Distribution Width 19.1 % (11.5-14.5); Segmented Neutrophils % 66.9 %
[2017-10-23 04:25] LABS: Platelet Count 71 K/mcL (140-400)
[2017-10-23 04:34] LABS: VBG Ionized Calcium 1.19 mmol/L (1.15-1.35); VBG PH 7.37 pH Units (7.32-7.42)
[2017-10-23 04:48] LABS: Albumin 2.6 g/dL (3.5-5.7); Albumin/Globulin Ratio 1.2 (1.1-2.2); Bilirubin,Total 0.2 mg/dL (0.3-1.0); Calcium 8.3 mg/dL (8.6-10.3); Globulin 2.1 g/dL (2.4-3.5); Magnesium 2.2 mg/dL (1.6-2.6); Phosphorous 4.1 mg/dL (2.7-4.5); Potassium 3.9 mEq/L (3.5-5.1); Total Protein 4.7 g/dL (6.4-8.9)
--- NOTE | 2017-10-23 08:36 | Nephrology Progress Note ---
Date of Encounter: 10/23/17 Time of Encounter: 08:34 - Assessment and Plan (1) ESRD on dialysis Current Visit: No Status: Chronic Plan for HD tomorrow continue renal diet Avoid nephrotoxins if possible (2) Severe malnutrition Current Visit: Yes Status: Chronic TPN running Setting up Home Health for continuation of TPN (3) Anemia Current Visit: No Status: Chronic Hgb 6.2 Spoke with hospitalist--will transfuse today Will continue Aranesp Qualifiers: Anemia type: unspecified type Qualified Code(s): D64.9 - Anemia, unspecified Subjective Principal diagnosis: ESRD, Short gut syndrome Interval history: Patient seen and examined. States she is feeling better. Objective - Vital Signs Vital signs: Vital Signs Temp Pulse Resp BP Pulse Ox 10/23/17 06:53 97.7 F 90 16 107/56 99 10/23/17 03:40 16 96 10/23/17 03:08 98.3 F 101 16 101/44 97 10/22/17 23:54 18 98 10/22/17 19:34 18 98 10/22/17 19:14 98.5 F 91 16 108/47 96 10/22/17 16:01 98.3 F 85 16 106/57 96 10/22/17 15:35 16 98 10/22/17 13:30 97.6 F 16 98/47 10/22/17 13:26 98.2 F 84 18 117/61 98 10/22/17 12:35 90/45 10/22/17 12:20 94/40 10/22/17 12:05 90/43 10/22/17 11:50 94/42 10/22/17 11:35 90/43 10/22/17 11:20 90/45 10/22/17 11:05 92/43 10/22/17 10:50 94/35 10/22/17 10:35 98/36 10/22/17 10:20 94/37 10/22/17 10:05 104/33 10/22/17 09:50 112/34 10/22/17 09:35 91/47 10/22/17 09:20 97.7 F 18 98/37 Intake and Output 10/22/17 10/23/17 10/23/17 23:59 07:59 15:59 Output Total 500 / 500 Balance -500 / -500 Output: Stool 500 / 500 Other: Weight 61.598 kg Blood Glucose* 166 117 Patient Weight 10/23/17 23:59 Weight 61.598 kg - General Appearance General appearance: Present: cachectic, chronically ill, frail EENT: Present: ATNC, mucous membranes moist, hearing intact, vision intact Neck: Present: supple Respiratory: Present: course breath sounds Cardiology: Present: no edema, normal S1, normal S2 Gastrointestinal: Present: no tenderness, no guarding Integumentary: Present: warm and dry Neurologic: Present: alert and oriented x3 Psychiatric: Present: mood/affect appropriate, cooperative - Lab 10/23/17 04:15 10/23/17 04:15 Most recent lab results Calcium 8.3 mg/dL (8.6-10.3) L 10/23/17 04:15 Phosphorus 4.1 mg/dL (2.7-4.5) 10/23/17 04:15 Magnesium 2.2 mg/dL (1.6-2.6) 10/23/17 04:15 - VTE Documentation of Mechanical Device: Intermittent pneumatic compression device Consult Discharge Plan - Plan Referrals: Na Johansen, [employer]ER [Primary Care Provider] - (Please call upon discharge) Prescriptions: Linezolid 600 MG/300 ML [Zyvox Premix 600mg/300mL] 600 mg IVPB Q12HR 2 Days #4 bag
[2017-10-23] MEDS: Furosemide 40 MG/4 ML VIAL IVP SCH ×2 (09:32→18:30)
[2017-10-23] MEDS: Renal Vitamin 1 MG CAPSULE PO SCH (09:33)
[2017-10-23] MEDS: Cholecalciferol (D-3) 1,000 UNIT TABLET PO SCH (09:33)
[2017-10-23] MEDS: Diltiazem CD (24hr) 120 MG CAPSULE PO SCH (09:33)
[2017-10-23] MEDS: Lactobacillus 1 EACH CAP.SPRINK PO SCH ×2 (09:33→20:49)
[2017-10-23] MEDS: Nicotine 21 MG PATCH.TD24 TD SCH (09:33)
[2017-10-23] MEDS: *HR* HYDROcodone/Acet 5/325 mg TABLET PO PRN ×2 (09:53→18:37)
[2017-10-23] MEDS: Ondansetron 4 MG/2 ML VIAL IVP PRN ×3 (09:54→22:55)
--- NOTE | 2017-10-23 10:17 | Internal Med Progress Note ---
<Jerome Tripp - Last Filed: 10/23/17 10:15> Date of Encounter: 10/23/17 Time of Encounter: 08:15 - Assessment and plan (1) Attention to urostomy Current Visit: Yes Status: Chronic Assessment and plan: UTI with VRE and enterobacter. Treating with levaquin (Day 5) and Zyvox (Day 4). Anticipate discharge tomorrow. Patient will need zyvox 600 mg IV BID at home for 2 days once discharged. (2) Severe malnutrition Current Visit: Yes Status: Chronic Assessment and plan: Secondary to short bowel syndrome and chronic diarrhea Has multiple electrolyte imbalances Continue TPN, with overnight administration tonight (3) Short bowel syndrome Current Visit: Yes Status: Chronic Assessment and plan: See plan of care above (4) Chest pain Current Visit: Yes Status: Acute Assessment and plan: Secondary to fractured rib on left Hydrocodone for pain control Anti-tussives, including tessalon perles Qualifiers: Chest pain type: chest pain on breathing Qualified Code(s): R07.1 - Chest pain on breathing; R07.81 - Pleurodynia (5) Colostomy care Current Visit: No Status: Chronic (6) ESRD on dialysis Current Visit: No Status: Chronic Assessment and plan: Nephrology following (7) Fluid overload Current Visit: Yes Status: Acute Assessment and plan: Continue lasix Avoid fluids beyond TPN Qualifiers: Hypervolemia type: unspecified Qualified Code(s): E87.70 - Fluid overload, unspecified (8) COPD (chronic obstructive pulmonary disease) Current Visit: Yes Status: Chronic Assessment and plan: Stable No exacerbation currently Qualifiers: COPD type: emphysema Emphysema type: panlobular Qualified Code(s): J43.1 - Panlobular emphysema (9) Paroxysmal a-fib Current Visit: No Status: Chronic Assessment and plan: Diltiazem No anticoagulation due to anemia (10) Hypokalemia Current Visit: Yes Status: Resolved Assessment and plan: Resolved. Continue to monitor. (11) Magnesium deficiency Current Visit: Yes Status: Acute Assessment and plan: Magnesium replacement with TPN (12) Anemia in CKD (chronic kidney disease) Current Visit: Yes Status: Chronic Assessment and plan: Hgb 6.2 Asymptomatic Transfuse 2 units RBCs Qualifiers: Chronic kidney disease stage: on chronic dialysis Qualified Code(s): N18.6 - End stage renal disease; D63.1 - Anemia in chronic kidney disease; D63.1 - Anemia in chronic kidney disease; Z99.2 - Dependence on renal dialysis; Z99.2 - Dependence on renal dialysis; Z99.2 - Dependence on renal dialysis; Z99.2 - Dependence on renal dialysis (13) DVT prophylaxis Current Visit: Yes Status: Acute Assessment and plan: SCDs - Subjective Interval history: Patient continues to improve, feels well today. No significant overnight changes. - Constitutional Vitals: Temp Pulse Resp BP Pulse Ox 97.7 F 90 16 107/56 100 10/23/17 06:53 10/23/17 06:53 10/23/17 08:23 10/23/17 06:53 10/23/17 08:23 General appearance: Present: cooperative, A&O X 3, answers questions appropriately - Head Head exam: Present: atraumatic, normal inspection, normocephalic - ENT ENT exam: Present: mucous membranes moist - Neck Neck exam general surgery: Present: trachea midline - Respiratory Respiratory exam: Present: chest wall tenderness (associated with broken rib). Absent: accessory muscle use, respiratory distress Additional comments: Breath sounds remain coarse, but are improved compared to initial evaluation - Cardiovascular Cardiovascular exam: Present: RRR, +S1, +S2 - GI/Abdominal GI/Abdominal exam: Present: soft, no peritoneal signs. Absent: tenderness Additional comments: colostomy and urostomy in place - Neurological Exam Neurological exam: Present: alert, oriented X3 - Psychiatric Psychiatric exam: Present: normal affect, normal mood - Skin Skin exam: Present: dry, warm Internal Medicine: Result - Labs CBC & Chem 7: 10/23/17 04:15 10/23/17 04:15 Labs: Short CBC 10/23/17 Range/Units 04:15 WBC 4.1 L (4.3-11.1) K/mcL Hgb 6.2 L (11.5-15.4) g/dL Hct 20.2 L (35.3-44.9) % Plt Count 71 L (140-400) K/mcL Neutrophils # 2.7 (1.6-8.9) K/mcL BMP 10/23/17 04:15 Sodium 140 Potassium 3.9 Chloride 102 Carbon Dioxide 28 BUN 34 H Creatinine 3.60 H Glucose 89 Calcium 8.3 L Liver Function 10/23/17 Range/Units 04:15 Total Bilirubin 0.2 L (0.3-1.0) mg/dL AST 11 L (13-39) Units/L ALT 7 (7-52) Units/L Alkaline Phosphatase 49 (34-104) Units/L Albumin 2.6 L (3.5-5.7) g/dL - ABG Interpretation ABG results: PT/INR, D-dimer PT 13.0 Seconds (9.4-12.1) H 10/16/17 19:35 - VTE Documentation of Mechanical Device: Intermittent pneumatic compression device Consult Discharge Plan - Plan Referrals: Na Johansen, [employer]ER [Primary Care Provider] - (Please call upon discharge) Prescriptions: RX: Linezolid 600 MG/300 ML [Zyvox Premix 600mg/300mL] 600 mg IVPB Q12HR 2 Days #4 bag <Ben-Wayne Ramirez - Last Filed: 10/23/17 10:41> Date of Encounter: 10/23/17 - Constitutional Vitals: Temp Pulse Resp BP Pulse Ox 97.7 F 90 16 107/56 100 10/23/17 06:53 10/23/17 06:53 10/23/17 08:23 10/23/17 06:53 10/23/17 08:23 Internal Medicine: Result - Labs CBC & Chem 7: 10/23/17 04:15 10/23/17 04:15 Labs: Short CBC 10/23/17 Range/Units 04:15 WBC 4.1 L (4.3-11.1) K/mcL Hgb 6.2 L (11.5-15.4) g/dL Hct 20.2 L (35.3-44.9) % Plt Count 71 L (140-400) K/mcL Neutrophils # 2.7 (1.6-8.9) K/mcL BMP 10/23/17 04:15 Sodium 140 Potassium 3.9 Chloride 102 Carbon Dioxide 28 BUN 34 H Creatinine 3.60 H Glucose 89 Calcium 8.3 L Liver Function 10/23/17 Range/Units 04:15 Total Bilirubin 0.2 L (0.3-1.0) mg/dL AST 11 L (13-39) Units/L ALT 7 (7-52) Units/L Alkaline Phosphatase 49 (34-104) Units/L Albumin 2.6 L (3.5-5.7) g/dL - ABG Interpretation ABG results: PT/INR, D-dimer PT 13.0 Seconds (9.4-12.1) H 10/16/17 19:35 - Attending Attestation I examined this patient and my medical decision-making was reviewed with the Resident Physician. I agree with the documented findings, disposition and treatment plan as described except to the extent set forth below. I have seen and examined the patient. She is awake and alert. Not in any distress. H&H is lower today. She will need 2 units PRBC transfusion. We will continue the Zyvox. Patient has been switched to TPN administration at night. Anticipate discharge tomorrow. No new events or complaints.
[2017-10-23] MEDS: Levofloxacin 500 MG/100 ML 500 MG/100 ML BAG IVPB SCH (12:15)
[2017-10-23] MEDS ORDERED: 0.9 % Sodium Chloride 250 ML ONE ×2 (14:41→22:49)
[2017-10-23] MEDS ORDERED: Clinimix 5%-20% SOLUTION 2,000 ML with MVI, adult with vitamin K 10 ML, Sodium Acetat... IVC SCH (17:00)
[2017-10-23] MEDS: Famotidine 20 MG TABLET PO SCH (20:49)
[2017-10-24] MEDS: *HR* HYDROcodone/Acet 7.5/325 mg TABLET PO PRN ×2 (01:38→21:15)
[2017-10-24 03:55] LABS: Basophils % 0.2 %; Eosinophils # 0.1 K/mcL (0.0-0.6); Eosinophils % 2.1 %; Hematocrit 23.4 % (35.3-44.9); Hemoglobin 7.4 g/dL (11.5-15.4); Immature Granulocytes % 0.4 % (0-4); Immature Platelets 3.7 % (1.1-6.1); Lymphocytes % 21.6 %; Mean Corpuscular HGB Conc 31.6 g/dL (31.6-35.5); Mean Corpuscular Volume 94.7 fL (83.0-100.0); Monocytes # 0.2 K/mcL (0.0-1.3); Monocytes % 4.4 %; Neutrophils # 3.4 K/mcL (1.6-8.9); Red Blood Count 2.47 M/mcL (3.82-4.97); Red Cell Distribution Width 18.6 % (11.5-14.5); Segmented Neutrophils % 71.3 %
[2017-10-24] MEDS: Ipratropium/Albuterol Neb 3 ML IH SCH ×6 (03:55→23:42)
[2017-10-24] MEDS: Acetylcysteine 10% 2 ML INHSOL IH SCH ×6 (03:56→23:42)
[2017-10-24 04:06] LABS: Platelet Count 72 K/mcL (140-400)
[2017-10-24 04:14] LABS: Calcium 8.3 mg/dL (8.6-10.3); Magnesium 2.3 mg/dL (1.6-2.6); Phosphorous 6.2 mg/dL (2.7-4.5); Potassium 5.1 mEq/L (3.5-5.1)
[2017-10-24] MEDS ORDERED: 0.9 % Sodium Chloride 250 ML IVC PRN (06:45)
--- NOTE | 2017-10-24 09:45 | Discharge Summary ---
<Jerome Tripp - Last Filed: 10/24/17 10:35> Date of Encounter: 10/24/17 Time of Encounter: 09:43 - Discharge Diagnosis (1) Attention to urostomy Priority: Primary Status: Chronic Comments: UTI with VRE and enterobacter. Treating with levaquin (Day 7) and Zyvox (Day 7). Home health cannot do twice daily zyvox, so discharge is pending regimen completion, unless a pump can be used - to be determined later today (2) Severe malnutrition Priority: Primary Status: Chronic Comments: Secondary to short bowel syndrome and chronic diarrhea. Continue TPN as outpatient. 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 Continue fluid restriction at home. Qualifiers: Hypervolemia type: unspecified Qualified Code(s): E87.70 - Fluid overload, unspecified (8) COPD (chronic obstructive pulmonary disease) Priority: Primary Status: Chronic Comments: Stable. Qualifiers: COPD type: emphysema Emphysema type: panlobular Qualified Code(s): J43.1 - Panlobular emphysema (9) Paroxysmal a-fib Priority: Secondary Status: Chronic Comments: Continue diltiazem (10) Hypokalemia Priority: Secondary Status: Resolved Comments: Resolved (11) Magnesium deficiency Priority: Secondary Status: Acute Comments: Resolved (12) Anemia in CKD (chronic kidney disease) Priority: Primary Status: Chronic Comments: Improved since transfusion. Hgb 7.4 Qualifiers: Chronic kidney disease stage: on chronic dialysis Qualified Code(s): N18.6 - End stage renal disease; D63.1 - Anemia in chronic kidney disease; D63.1 - Anemia in chronic kidney disease; Z99.2 - Dependence on renal dialysis; Z99.2 - Dependence on renal dialysis; Z99.2 - Dependence on renal dialysis; Z99.2 - Dependence on renal dialysis - Discharge Medications Prescriptions: HYDROcodone/Acet 7.5/325 mg [[place] 7.5-325 mg] 1 tab PO Q6HR PRN #10 tablet PRN Reason: severe pain Linezolid 600 MG/300 ML [Zyvox Premix 600mg/300mL] 600 mg IVPB Q12HR 2 Days #4 bag Benzonatate [Tessalon] 100 mg PO TID PRN #90 capsule PRN Reason: Cough Home Medications: Cholecalciferol (Vitamin D3) [Vitamin D3] 5,000 unit PO DAILY #0 09/19/15 [ History] Ranitidine HCl [Zantac] 150 mg PO HS 09/19/15 [History] Cyanocobalamin (B-12) [Vitamin B12] 1,000 mcg IM QMONTH 02/21/17 [History] Levothyroxine Sodium [Synthroid] 300 mcg PO DAILY 02/21/17 [History] Mometasone/Formoterol [Dulera 100 Mcg/5 Mcg Inhaler] 2 puff IH BID 02/21/17 [ History] Lidocaine/Prilocaine CREAM [Emla] 1 appl TP AD PRN 06/30/17 [History] Renal Vitamin [Renal Caps Softgel] 1 mg PO DAILY 06/30/17 [History] Acetaminophen [Tylenol] 650 mg PO Q6HR PRN #20 tab 07/10/17 [Rx] Menthol [[place]] 3.2 mg MM Q4H PRN 07/16/17 [History] Ferrous Sulfate 325 mg PO DAILY@0800 #30 tablet 08/06/17 [Rx] Acetylcysteine 10% 2 ml IH [id number] #30 inhsol 09/14/17 [Rx] Diltiazem CD (24hr) [Cardizem CD] 120 mg PO DAILY cap.er.24h 09/14/17 [Rx] GuaiFENesin ER [Mucinex] 600 mg PO BID 5 Days #10 tbbp.12hr 09/14/17 [Rx] Nicotine Patch [Nicoderm] 21 mg TD DAILY #30 patch.td24 09/14/17 [Rx] Calcium Acetate [Phos-LO] 667 mg PO TIDWM 10/17/17 [History] Linezolid 600 MG/300 ML [Zyvox Premix 600mg/300mL] 600 mg IVPB Q12HR 2 Days #4 bag 10/22/17 [Rx] Amitriptyline [Elavil] 50 mg PO HS tablet 10/24/17 [Rx] Benzonatate [Tessalon] 100 mg PO TID PRN #90 capsule 10/24/17 [Rx] Calcitriol [Rocaltrol] 0.25 mcg PO DAILY capsule 10/24/17 [Rx] HYDROcodone/Acet 7.5/325 mg [[place] 7.5-325 mg] 1 tab PO Q6HR PRN #10 tablet [Rx] Ipratropium/Albuterol Neb [Duoneb] 3 ml IH [id number] inhsol 10/24/17 [Rx] Allergies/Adverse Reactions: 3 Allergy/AdvReac Type Severity Reaction Status Date / Time codeine AdvReac Severe Vomiting Verified 03/06/17 15:22 naproxen [From Naprosyn] AdvReac Severe Vomiting Verified 03/06/17 15:22 Procedures/tests Complete & Pending: Procedures Performed prior 72 hours Category Date Time Status EKG [ECG 12 lead ECG] [ECG] Stat Y 10/21/17 17:40 Completed Date of admission: 10/16/17 22:21 Primary care physician: Na Johansen CNP Consults: 10/16/17 23:18 Consult to Occupational Therapy [CONS] Routine Comment: Evaluate, develop and implement POC Reason for Consult: Assessment functional capacity Consult to Physical Therapy [CONS] Routine Comment: Evaluate, develop and implement POC Reason for Consult: Assessment functional capacity Consult to Analytical Data Scientist [CONS] Routine Reason for SW Consult: LTAC placement 10/16/17 23:52 Consult to Nephrology [CONS] Routine Consulting Provider: Kidney Katelyn/MAYO/JAYESH/COREY Reason for Consult: M-W-F HD patient. Will need HD while inpatient. Call Completed: No 10/17/17 07:45 Consult to Dialysis [CONS] ONCE 10/18/17 07:45 Consult to Dialysis [CONS] ONCE 10/18/17 12:25 Consult to Nutrition [CONS] Routine Comment: TPN Consulting Provider: NUTRITION Reason for Dietary Consult: TPN Start and Manage 10/20/17 06:30 Consult to Dialysis [CONS] ONCE 10/22/17 06:15 Consult to Dialysis [CONS] ONCE 10/24/17 06:45 Consult to Dialysis [CONS] ONCE 10/25/17 06:45 Consult to Dialysis [CONS] ONCE Discharging clinician: Jerome Tripp Anticipated date of discharge: 10/26/17 - Patient Status Disposition: Home Health Service Condition: Fair Functional capacity at discharge: uses cane/walker Overall status at discharge: patient is progressing back to baseline - Discharge Instructions Follow Up With: Na Johansen, CHARGE NURSE [Primary Care Provider] - (Please call upon discharge) - Diet and Activity Activity: resume usual activities as tolerated Diet: advance to your usual diet Hospital course: Ms. Parra is a 72 year old female who presented with generalized weakness and worsening cough. PMH significant for asthma, COPD, GERD, HTN, ESRD, colostomy, and urostomy. She admitted to chills, shortness of breath, cough, tachycardia, and palpitations, as well as increased colostomy output. She was found to have hypokalemia of 2.2, which was corrected, and bronchitis on CXR. She had a fractured rib secondary to a fall. She was additionally found to have VRE and enterobacter on urine culture, which were treated with zyvox and levaquin, respectively. She was experiencing severe malnutrition secondary to short gut syndrome, so she was started on TPN. This is to be continued at home. She did also become somewhat fluid overloaded during her stay, and this was treated with lasix on top of her regular dialysis for ESRD. Anema secondary to ESRD was treated with a transfusion of 2 units of blood. The patient was much improved by the end of her admission and was discharged in fair condition. - Time Spent with Patient Total time spent providing and/or coordinating discharge services: - Constitutional Vitals: Temp Pulse Resp BP Pulse Ox 98.7 F 83 16 134/63 98 10/24/17 06:39 10/24/17 06:39 10/24/17 07:39 10/24/17 06:39 10/24/17 07:39 General appearance: Present: cooperative, A&O X 3, answers questions appropriately - Head Head exam: Present: atraumatic, normal inspection, normocephalic - ENT ENT exam: Present: mucous membranes moist - Neck Neck exam general surgery: Present: trachea midline - Respiratory Respiratory exam: Present: prolonged expiratory phase. Absent: accessory muscle use, respiratory distress Additional comments: Coarse breath sounds, but improved compared to initial evaluation - Cardiovascular Cardiovascular exam: Present: RRR, +S1, +S2 - GI/Abdominal GI/Abdominal exam: Present: diminished bowel sounds, soft, no peritoneal signs. Absent: tenderness - Neurological Exam Neurological exam: Present: alert, oriented X3 - Psychiatric Psychiatric exam: Present: normal affect, normal mood - Skin Skin exam: Present: dry, warm - VTE Documentation of Mechanical Device: Intermittent pneumatic compression device <Contreras-Wayne Ramirez - Last Filed: 10/24/17 12:00> Date of Encounter: 10/24/17 Procedures/tests Complete & Pending: Procedures Performed prior 72 hours Category Date Time Status EKG [ECG 12 lead ECG] [ECG] Stat Y 10/21/17 17:40 Completed Date of admission: 10/16/17 22:21 Primary care physician: Na Johansen CNP Consults: 10/16/17 23:18 Consult to Occupational Therapy [CONS] Routine Comment: Evaluate, develop and implement POC Reason for Consult: Assessment functional capacity Consult to Physical Therapy [CONS] Routine Comment: Evaluate, develop and implement POC Reason for Consult: Assessment functional capacity Consult to Analytical Data Scientist [CONS] Routine Reason for SW Consult: LTAC placement 10/16/17 23:52 Consult to Nephrology [CONS] Routine Consulting Provider: Kidney Katelyn/MAYO/JAYESH/COREY Reason for Consult: M-W-F HD patient. Will need HD while inpatient. Call Completed: No 10/17/17 07:45 Consult to Dialysis [CONS] ONCE 10/18/17 07:45 Consult to Dialysis [CONS] ONCE 10/18/17 12:25 Consult to Nutrition [CONS] Routine Comment: TPN Consulting Provider: NUTRITION Reason for Dietary Consult: TPN Start and Manage 10/20/17 06:30 Consult to Dialysis [CONS] ONCE 10/22/17 06:15 Consult to Dialysis [CONS] ONCE 10/24/17 06:45 Consult to Dialysis [CONS] ONCE 10/25/17 06:45 Consult to Dialysis [CONS] ONCE Hospital course: Ms. Parra is a 72 year old female - Time Spent with Patient Total time spent providing and/or coordinating discharge services: - Constitutional Vitals: Temp Pulse Resp BP Pulse Ox 97.8 F 83 19 115/55 98 10/24/17 10:15 10/24/17 06:39 10/24/17 10:15 10/24/17 11:30 10/24/17 07:39 - Attending Attestation I examined this patient and my medical decision-making was reviewed with the Resident Physician. I agree with the documented findings, disposition and treatment plan as described except to the extent set forth below. I have seen and examined the patient. Patient is awake and alert. Not in any distress. She is tolerating hemodialysis well. She denies chest pain or shortness of breath. H&H is stable. She is being set up with home health for TPN. She will need 2 more days of Zyvox. She is otherwise stable for discharge. No new events or complaints. Heart S1-S2 positive. Lungs bilateral coarse rhonchi, which is chronic. Abdomen soft nontender.
[2017-10-24] MEDS ORDERED: 0.9 % Sodium Chloride 2,000 ML ONE (12:44)
[2017-10-24] MEDS: Diltiazem CD (24hr) 120 MG CAPSULE PO SCH (13:04)
[2017-10-24] MEDS: Renal Vitamin 1 MG CAPSULE PO SCH (13:05)
[2017-10-24] MEDS: Cholecalciferol (D-3) 1,000 UNIT TABLET PO SCH (13:05)
[2017-10-24] MEDS: Lactobacillus 1 EACH CAP.SPRINK PO SCH ×2 (13:05→21:14)
[2017-10-24] MEDS: Nicotine 21 MG PATCH.TD24 TD SCH (13:05)
[2017-10-24] MEDS: *HR* HYDROcodone/Acet 5/325 mg TABLET PO PRN (13:05)
--- NOTE | 2017-10-24 16:36 | Nephrology Progress Note ---
Date of Encounter: 10/24/17 Time of Encounter: 16:35 - Assessment and Plan (1) ESRD (end stage renal disease) Current Visit: No Status: Chronic Patient seen on dialysis. Renal diet. Renal dose medications. Dialysis MWF and as needed. (2) Anemia Current Visit: No Status: Chronic Chronic anemia. No active bleeding at this time. Qualifiers: Anemia type: unspecified type Qualified Code(s): D64.9 - Anemia, unspecified (3) Frail elderly Current Visit: No Status: Acute Per primary team. (4) Severe malnutrition Current Visit: Yes Status: Chronic Chronic malnutrition. Patient with short gut syndrome. (5) Hypocalcemia Current Visit: No Status: Acute Monitor. High calcium bath on dialysis. Subjective Principal diagnosis: ESRD, Short gut syndrome Interval history: Patient seen while on dialysis. She has no new complaint. She feels better. Review of systems is stable. She wants to go home. Objective - Vital Signs Vital signs: Vital Signs Temp Pulse Resp BP Pulse Ox 10/24/17 14:15 97.6 F 18 113/54 10/24/17 13:45 99/46 10/24/17 13:30 101/47 10/24/17 13:15 105/49 10/24/17 13:00 114/44 10/24/17 12:45 112/52 10/24/17 12:30 106/48 10/24/17 12:15 119/49 10/24/17 12:00 121/55 10/24/17 11:45 113/58 10/24/17 11:30 115/55 10/24/17 11:15 113/53 10/24/17 11:00 125/59 10/24/17 10:45 114/56 10/24/17 10:30 129/62 10/24/17 10:15 97.8 F 19 118/56 10/24/17 07:39 16 98 10/24/17 06:39 98.7 F 83 18 134/63 96 10/24/17 04:24 98.5 F 65 16 126/62 98 10/24/17 03:55 16 97 10/23/17 23:39 18 98 10/23/17 23:24 98.4 F 84 17 123/63 95 10/23/17 23:09 98.2 F 87 16 126/64 97 10/23/17 23:01 98.3 F 87 16 123/53 96 10/23/17 20:49 98 10/23/17 20:39 99.0 F 90 17 122/53 98 10/23/17 20:11 16 97 Intake and Output 10/24/17 10/24/17 10/24/17 07:59 15:59 23:59 Intake Total 350 / 350 840 / 840 Output Total 0 / 0 Balance 350 / 350 840 / 840 Intake: Oral 240 / 240 Blood Product 350 / 350 Rbcs Leuko Poor As-1 Unit 350 / 350 [id number] Intake, Rinseback and Flushes 600 / 600 Output: Urine 0 / 0 Total Dialysis (HD) Output 0 / 0 Other: Meal Breakfast Percent of Meal Consumed 100% Weight 62.1 kg Blood Glucose* 113 102 Hemodialysis Net Fluid Removed 3500 (mL) Patient Weight 10/24/17 23:59 Weight 62.1 kg - General Appearance General appearance: Present: well-developed, chronically ill, frail EENT: Present: ATNC Neck: Present: supple Respiratory: Present: clear Cardiology: Present: no edema Dialysis Vascular Access: Arteriovenous Fistula Integumentary: Present: warm and dry Neurologic: Present: alert and oriented x3 - Lab 10/24/17 03:46 10/24/17 03:46 Most recent lab results Calcium 8.3 mg/dL (8.6-10.3) L 10/24/17 03:46 Phosphorus 6.2 mg/dL (2.7-4.5) H 10/24/17 03:46 Magnesium 2.3 mg/dL (1.6-2.6) 10/24/17 03:46 - VTE Documentation of Mechanical Device: Intermittent pneumatic compression device Consult Discharge Plan - Plan Referrals: Na Johansen, REFINERY OPERATOR VISBREAKING [Primary Care Provider] - (Please call upon discharge) Prescriptions: HYDROcodone/Acet 7.5/325 mg [[place] 7.5-325 mg] 1 tab PO Q6HR PRN #10 tablet PRN Reason: severe pain Linezolid 600 MG/300 ML [Zyvox Premix 600mg/300mL] 600 mg IVPB Q12HR 2 Days #4 bag Benzonatate [Tessalon] 100 mg PO TID PRN #90 capsule PRN Reason: Cough
[2017-10-24] MEDS: Furosemide 40 MG/4 ML VIAL IVP SCH ×2 (16:50→22:23)
[2017-10-24] MEDS: Ondansetron 4 MG/2 ML VIAL IVP PRN (16:54)
[2017-10-24] MEDS ORDERED: Clinimix 5%-20% SOLUTION 2,000 ML with MVI, adult with vitamin K 10 ML, Sodium Acetat... IVC SCH (19:00)
[2017-10-25] MEDS: Ondansetron 4 MG/2 ML VIAL IVP PRN ×4 (03:53→22:29)
[2017-10-25] MEDS: *HR* HYDROcodone/Acet 7.5/325 mg TABLET PO PRN ×3 (03:53→22:29)
[2017-10-25] MEDS: Ipratropium/Albuterol Neb 3 ML IH SCH ×5 (04:02→20:21)
[2017-10-25] MEDS: Acetylcysteine 10% 2 ML INHSOL IH SCH ×5 (04:04→20:21)
[2017-10-25 04:44] LABS: Hemoglobin 7.4 g/dL (11.5-15.4)
[2017-10-25 04:46] LABS: Hematocrit 23.5 % (35.3-44.9); Immature Platelets 3.7 % (1.1-6.1); Mean Corpuscular HGB Conc 31.5 g/dL (31.6-35.5); Mean Corpuscular Hemoglobin 29.8 pg (28.0-33.3); Mean Corpuscular Volume 94.8 fL (83.0-100.0); Mean Platelet Volume 10.7 fL (9.4-12.4); Red Blood Count 2.48 M/mcL (3.82-4.97); Red Cell Distribution Width 18.6 % (11.5-14.5)
[2017-10-25 05:01] LABS: Magnesium 2.1 mg/dL (1.6-2.6); Phosphorous 5.9 mg/dL (2.7-4.5)
[2017-10-25 05:02] LABS: Calcium 8.3 mg/dL (8.6-10.3); Potassium 4.2 mEq/L (3.5-5.1)
[2017-10-25] MEDS: Furosemide 40 MG/4 ML VIAL IVP SCH ×2 (09:08→18:03)
[2017-10-25] MEDS: Levofloxacin 500 MG/100 ML 500 MG/100 ML BAG IVPB SCH (09:16)
[2017-10-25] MEDS: Lactobacillus 1 EACH CAP.SPRINK PO SCH ×2 (09:18→22:30)
[2017-10-25] MEDS: *HR* HYDROcodone/Acet 5/325 mg TABLET PO PRN (09:18)
[2017-10-25] MEDS: Diltiazem CD (24hr) 120 MG CAPSULE PO SCH (09:18)
[2017-10-25] MEDS: Renal Vitamin 1 MG CAPSULE PO SCH (09:18)
[2017-10-25] MEDS: Cholecalciferol (D-3) 1,000 UNIT TABLET PO SCH (09:19)
[2017-10-25] MEDS: Nicotine 21 MG PATCH.TD24 TD SCH (09:19)
--- NOTE | 2017-10-25 11:57 | Internal Med Progress Note ---
Date of Encounter: 10/25/17 Time of Encounter: 09:00 - Assessment and plan (1) UTI (urinary tract infection) Current Visit: Yes Status: Acute Assessment and plan: UTI with VRE and Enterobacter - lesion does have a urostomy bag Continue IV Zyvox, IV Levaquin Anticipate discharge tomorrow, no acute events or complaints Qualifiers: Urinary tract infection type: acute cystitis Hematuria presence: without hematuria Qualified Code(s): N30.00 - Acute cystitis without hematuria (2) Severe malnutrition Current Visit: Yes Status: Chronic Assessment and plan: Secondary to short bowel syndrome and chronic diarrhea Has multiple electrolyte imbalances Continue TPN, with overnight administration tonight - TPN being set up at home (3) Anemia in CKD (chronic kidney disease) Current Visit: Yes Status: Chronic Assessment and plan: Hgb 7.4 - likely at baseline - Patient is asymptomatic - no active bleeding 2 units PRBCs have been transfused Qualifiers: Chronic kidney disease stage: on chronic dialysis Qualified Code(s): N18.6 - End stage renal disease; D63.1 - Anemia in chronic kidney disease; D63.1 - Anemia in chronic kidney disease; Z99.2 - Dependence on renal dialysis; Z99.2 - Dependence on renal dialysis; Z99.2 - Dependence on renal dialysis; Z99.2 - Dependence on renal dialysis (4) Atrial fibrillation Current Visit: Yes Status: Chronic Assessment and plan: Chronic atrial fibrillation, rate controlled Continue Cardizem, patient is not on anticoagulation at home Qualifiers: Atrial fibrillation type: chronic Qualified Code(s): I48.2 - Chronic atrial fibrillation (5) ESRD (end stage renal disease) on dialysis Current Visit: Yes Status: Chronic Assessment and plan: ESRD on HD on Friday Tolerating HD well, nephrology following (6) COPD (chronic obstructive pulmonary disease) Current Visit: Yes Status: Chronic Assessment and plan: COPD, stable, no exacerbation Continue DuoNeb breathing treatment as needed Qualifiers: COPD type: emphysema Emphysema type: panlobular Qualified Code(s): J43.1 - Panlobular emphysema (7) Frail elderly Current Visit: Yes Status: Acute Assessment and plan: Patient does have severe malnutrition and is frail (8) DVT prophylaxis Current Visit: Yes Status: Acute Assessment and plan: SCDs, patient is ambulating well - Time Spent With Patient 25 - 35 minutes - Subjective Interval history: Examined the patient this morning. Patient is awake and alert. Not in any distress. Denies chest pain or shortness of breath. Hemodynamically stable. No fever. No acute events or complaints. H&H stable. Patient states she feels better and wants to go home. Patient will need 2 more days of IV Zyvox. TPN is being set up at home with home health. Anticipate discharge tomorrow. - Constitutional Vitals: Temp Pulse Resp BP Pulse Ox 97.8 F 80 17 133/58 100 10/25/17 11:37 10/25/17 11:37 10/25/17 11:37 10/25/17 11:37 10/25/17 11:37 General appearance: Present: cachectic, cooperative, A&O X 3, pleasant, no acute distress, underweight, answers questions appropriately - Head Head exam: Present: atraumatic - Eye Eye exam: Present: EOMI - ENT ENT exam: Present: mucous membranes dry - Respiratory Respiratory exam: Present: rhonchi (Bilateral). Absent: accessory muscle use, chest wall tenderness, rales, respiratory distress, wheezes, tachypnea - Cardiovascular Cardiovascular exam: Present: RRR, +S1, +S2 - GI/Abdominal GI/Abdominal exam: Present: soft. Absent: distended, firm, guarding, tenderness Additional comments: Ostomy bag in place and site looks okay. Good output. - Extremities Exam Extremities exam: Present: radial pulses palpable and symmetrical. Absent: calf tenderness, cyanotic, pedal edema - Neurological Exam Neurological exam: Present: alert, oriented X3, no focal deficits. Absent: facial droop, speech deficit Internal Medicine: Result - Labs CBC & Chem 7: 10/25/17 04:20 10/25/17 04:20 Labs: Short CBC 10/25/17 Range/Units 04:20 WBC 4.3 (4.3-11.1) K/mcL Hgb 7.4 L (11.5-15.4) g/dL Hct 23.5 L (35.3-44.9) % Plt Count 83 L (140-400) K/mcL BMP 10/25/17 04:20 Sodium 135 L Potassium 4.2 Chloride 100 Carbon Dioxide 27 BUN 45 H Creatinine 4.11 H Glucose 65 L Calcium 8.3 L - ABG Interpretation ABG results: PT/INR, D-dimer PT 13.0 Seconds (9.4-12.1) H 10/16/17 19:35 - VTE Documentation of Mechanical Device: Intermittent pneumatic compression device Consult Discharge Plan - Plan Referrals: Na Johansen, TYLER [Primary Care Provider] - (Please call upon discharge) Prescriptions: HYDROcodone/Acet 7.5/325 mg [[place] 7.5-325 mg] 1 tab PO Q6HR PRN #10 tablet PRN Reason: severe pain Linezolid 600 MG/300 ML [Zyvox Premix 600mg/300mL] 600 mg IVPB Q12HR 2 Days #4 bag Benzonatate [Tessalon] 100 mg PO TID PRN #90 capsule PRN Reason: Cough
--- NOTE | 2017-10-25 14:02 | Nephrology Progress Note ---
Date of Encounter: 10/25/17 Time of Encounter: 13:58 - Assessment and Plan (1) ESRD (end stage renal disease) Current Visit: No Status: Chronic Renal diet. Renal dose medications. Dialysis MWF and as needed. Plan on performing dialysis Friday. (2) Anemia Current Visit: No Status: Chronic Chronic anemia. No active bleeding at this time. Qualifiers: Anemia type: unspecified type Qualified Code(s): D64.9 - Anemia, unspecified (3) Frail elderly Current Visit: Yes Status: Acute Per primary team. (4) Severe malnutrition Current Visit: Yes Status: Chronic Chronic malnutrition. Patient with short gut syndrome. Patient now on TPN, but has associated this with her abdominal pain. I informed her that there is no reason that the TPN should cause her abdominal pain. Nontheless she seems fixated on the TPN as the cause and no longer wants to receive TPN. I have informed the hospitalist of her decision and the primary team will follow-up. If she continues to refuse TPN she may be a candidate for IDPN. (5) Hypocalcemia Current Visit: No Status: Acute Monitor. Will need high calcium bath on dialysis. Subjective Principal diagnosis: ESRD, Short gut syndrome Interval history: Patient seen in bed. She is complaining about recurrance of abdominal pain. She is associating this abdominal pain with the administration of TPN. She states that she had TPN in the past and her abdominal pain started shortly after starting the TPN. Otherwise she states she is doing well. Objective - Vital Signs Vital signs: Vital Signs Temp Pulse Resp BP Pulse Ox 10/25/17 11:37 97.8 F 80 17 133/58 100 10/25/17 11:23 16 100 10/25/17 07:43 16 100 10/25/17 06:57 97.8 F 84 16 114/51 100 10/25/17 05:04 98.4 F 88 16 114/53 97 10/25/17 04:02 18 96 10/24/17 23:50 98.7 F 98 16 138/57 100 10/24/17 23:43 18 95 10/24/17 22:35 98.0 F 91 18 118/59 95 10/24/17 20:20 18 95 10/24/17 19:40 98.0 F 87 16 118/59 97 10/24/17 17:15 98.7 F 87 16 134/61 95 10/24/17 15:29 16 97 10/24/17 14:15 97.6 F 18 113/54 Intake and Output 10/24/17 10/25/17 10/25/17 23:59 07:59 15:59 Intake Total 300 / 300 220 / 220 Balance 300 / 300 220 / 220 Intake: IV Fluids 300 / 300 Zyvox Premix 600mg/300mL 600 mg 300 / 300 In 300 ml @ 150 mls/hr IVPB Q12HR MARIANO Rx#:[id number] Oral 220 / 220 Infusion Intake 0 / 0 Other: Meal Breakfast Percent of Meal Consumed 100% Blood Glucose* 104 101 143 - General Appearance General appearance: Present: well-developed, chronically ill, frail EENT: Present: ATNC Neck: Present: supple Respiratory: Present: course breath sounds Cardiology: Present: no edema, regular rate Integumentary: Present: warm and dry Neurologic: Present: alert and oriented x3 Musculoskeletal: Present: no cyanosis Psychiatric: Present: mood/affect appropriate - Lab 10/25/17 04:20 10/25/17 04:20 Most recent lab results Calcium 8.3 mg/dL (8.6-10.3) L 10/25/17 04:20 Phosphorus 5.9 mg/dL (2.7-4.5) H 10/25/17 04:20 Magnesium 2.1 mg/dL (1.6-2.6) 10/25/17 04:20 - VTE Documentation of Mechanical Device: Intermittent pneumatic compression device Consult Discharge Plan - Plan Referrals: Na Johansen, DIRECTOR CLINICAL INFORMATION SERVICES [Primary Care Provider] - (Please call upon discharge) Prescriptions: HYDROcodone/Acet 7.5/325 mg [[place] 7.5-325 mg] 1 tab PO Q6HR PRN #10 tablet PRN Reason: severe pain Linezolid 600 MG/300 ML [Zyvox Premix 600mg/300mL] 600 mg IVPB Q12HR 2 Days #4 bag Benzonatate [Tessalon] 100 mg PO TID PRN #90 capsule PRN Reason: Cough
[2017-10-25] MEDS ORDERED: Clinimix 5%-20% SOLUTION 2,000 ML with MVI, adult with vitamin K 10 ML, Sodium Acetat... IVC SCH (19:00)
[2017-10-25] MEDS: Famotidine 20 MG TABLET PO SCH (22:29)
[2017-10-26] MEDS: Acetylcysteine 10% 2 ML INHSOL IH SCH ×7 (00:06→23:24)
[2017-10-26] MEDS: Ipratropium/Albuterol Neb 3 ML IH SCH ×7 (00:06→23:24)
[2017-10-26] MEDS: *HR* HYDROcodone/Acet 5/325 mg TABLET PO PRN (03:13)
[2017-10-26] MEDS: Ondansetron 4 MG/2 ML VIAL IVP PRN ×3 (03:13→19:53)
[2017-10-26 05:03] LABS: Basophils % 0.3 %; Eosinophils # 0.1 K/mcL (0.0-0.6); Eosinophils % 3.3 %; Hemoglobin 7.6 g/dL (11.5-15.4); Immature Granulocytes % 0.6 % (0-4); Lymphocytes % 27.3 %; Mean Corpuscular HGB Conc 31.7 g/dL (31.6-35.5); Mean Corpuscular Hemoglobin 29.9 pg (28.0-33.3); Mean Corpuscular Volume 94.5 fL (83.0-100.0); Mean Platelet Volume 10.3 fL (9.4-12.4); Monocytes # 0.2 K/mcL (0.0-1.3); Monocytes % 4.7 %; Neutrophils # 2.3 K/mcL (1.6-8.9); Red Blood Count 2.54 M/mcL (3.82-4.97); Red Cell Distribution Width 18.2 % (11.5-14.5); Segmented Neutrophils % 63.8 %
[2017-10-26 05:11] LABS: Platelet Count 84 K/mcL (140-400)
[2017-10-26 05:22] LABS: Calcium 7.7 mg/dL (8.6-10.3); Magnesium 2.1 mg/dL (1.6-2.6); Phosphorous 7.7 mg/dL (2.7-4.5); Potassium 4.6 mEq/L (3.5-5.1)
[2017-10-26 10:25] LABS: Anisocytosis 2+ (Not Present); Microcytosis Present (Not Present); Platelet Estimate Decreased (Normal)
--- NOTE | 2017-10-26 10:41 | Nephrology Progress Note ---
Date of Encounter: 10/26/17 Time of Encounter: 10:39 - Assessment and Plan (1) ESRD (end stage renal disease) Current Visit: No Status: Chronic Renal diet. Renal dose medications. Dialysis MWF and as needed. Plan on performing dialysis Today. (2) Anemia Current Visit: No Status: Chronic Chronic anemia. No active bleeding at this time. Qualifiers: Anemia type: unspecified type Qualified Code(s): D64.9 - Anemia, unspecified (3) Frail elderly Current Visit: Yes Status: Acute Per primary team. (4) Severe malnutrition Current Visit: Yes Status: Chronic Chronic malnutrition. Patient with short gut syndrome. Patient was on TPN, but associated this with her abdominal pain. I informed her that there is no reason that the TPN should cause her abdominal pain. Nontheless she seemed fixated on the TPN as the cause and decided she did not want to receive TPN. TPN was discontinued 10/25/2017. She may be a candidate for IDPN. This can be evaluated on an outpatient basis. (5) Hypocalcemia Current Visit: No Status: Acute Monitor. Will need high calcium bath on dialysis. Subjective Principal diagnosis: ESRD, Short gut syndrome Interval history: Patient seen sitting on bed. She states her abdominal pain is better. She states she wants to go home. Otherwise she states she is doing well. Objective - Vital Signs Vital signs: Vital Signs Temp Pulse Resp BP Pulse Ox 10/26/17 04:27 94 10/26/17 03:52 98.1 F 83 16 113/60 96 10/26/17 00:08 14 98 10/25/17 23:40 98.0 F 88 16 125/53 100 10/25/17 20:23 14 99 10/25/17 20:04 98.2 F 82 16 119/63 99 10/25/17 16:30 16 98 10/25/17 16:07 97.7 F 82 16 121/70 98 10/25/17 11:37 97.8 F 80 17 133/58 100 10/25/17 11:23 16 100 Intake and Output 10/25/17 10/26/17 10/26/17 23:59 07:59 15:59 Intake Total 300 / 300 Output Total 200 / 200 300 / 300 Balance 300 / 300 -200 / -200 -300 / -300 Intake: IV Fluids 300 / 300 Zyvox Premix 600mg/300mL 600 mg 300 / 300 In 300 ml @ 150 mls/hr IVPB Q12HR [facility] Rx#:[id number] Output: Stool 200 / 200 300 / 300 Other: Stool Consistency loose soft Stool Color Brown Weight 63.1 kg Blood Glucose* 151 Patient Weight 10/26/17 23:59 Weight 63.1 kg - General Appearance General appearance: Present: well-developed, chronically ill, frail EENT: Present: ATNC Neck: Present: supple Respiratory: Present: rhonchi Cardiology: Present: edema (trace edema) Integumentary: Present: warm and dry Neurologic: Present: alert and oriented x3 Psychiatric: Present: mood/affect appropriate - Lab 10/26/17 04:50 10/26/17 04:50 Most recent lab results Calcium 7.7 mg/dL (8.6-10.3) L 10/26/17 04:50 Phosphorus 7.7 mg/dL (2.7-4.5) H 10/26/17 04:50 Magnesium 2.1 mg/dL (1.6-2.6) 10/26/17 04:50 - VTE Documentation of Mechanical Device: Intermittent pneumatic compression device Consult Discharge Plan - Plan Referrals: Na Johansen, AIRCRAFT QUALITY CONTROL INSPECTOR [Primary Care Provider] - (Please call upon discharge) Prescriptions: HYDROcodone/Acet 7.5/325 mg [[place] 7.5-325 mg] 1 tab PO Q6HR PRN #10 tablet PRN Reason: severe pain Linezolid 600 MG/300 ML [Zyvox Premix 600mg/300mL] 600 mg IVPB Q12HR 2 Days #4 bag Benzonatate [Tessalon] 100 mg PO TID PRN #90 capsule PRN Reason: Cough
[2017-10-26] MEDS ORDERED: 0.9 % Sodium Chloride 250 ML IVC PRN (11:08)
[2017-10-26] MEDS ORDERED: 0.9 % Sodium Chloride 1,000 ML PRIME SCH (11:15)
[2017-10-26] MEDS: Furosemide 40 MG/4 ML VIAL IVP SCH ×2 (12:57→18:48)
[2017-10-26] MEDS: Cholecalciferol (D-3) 1,000 UNIT TABLET PO SCH (12:57)
[2017-10-26] MEDS: Lactobacillus 1 EACH CAP.SPRINK PO SCH ×2 (12:58→20:01)
[2017-10-26] MEDS: Renal Vitamin 1 MG CAPSULE PO SCH (12:58)
[2017-10-26] MEDS: *HR* HYDROcodone/Acet 7.5/325 mg TABLET PO PRN ×2 (12:58→19:53)
[2017-10-26] MEDS ORDERED: 0.9 % Sodium Chloride 2,000 ML ONE (13:56)
--- NOTE | 2017-10-26 14:31 | Internal Med Progress Note ---
Date of Encounter: 10/26/17 Time of Encounter: 10:00 - Assessment and plan (1) UTI (urinary tract infection) Current Visit: Yes Status: Acute Assessment and plan: UTI with VRE and Enterobindings and startacter - lesion does have a urostomy bag Today is the last dose of IV Zyvox Anticipate discharge tomorrow, no acute events or complaints Qualifiers: Urinary tract infection type: acute cystitis Hematuria presence: without hematuria Qualified Code(s): N30.00 - Acute cystitis without hematuria (2) Severe malnutrition Current Visit: Yes Status: Chronic Assessment and plan: Secondary to short bowel syndrome and chronic diarrhea Has multiple electrolyte imbalances Continue TPN, with overnight administration tonight - TPN being set up at home Patient initially refused TPN, but now agrees to continue (3) Anemia in CKD (chronic kidney disease) Current Visit: Yes Status: Chronic Assessment and plan: Hgb 7.6 - likely at baseline - Patient is asymptomatic - no active bleeding 2 units PRBCs have been transfused, now stable Qualifiers: Chronic kidney disease stage: on chronic dialysis Qualified Code(s): N18.6 - End stage renal disease; D63.1 - Anemia in chronic kidney disease; D63.1 - Anemia in chronic kidney disease; Z99.2 - Dependence on renal dialysis; Z99.2 - Dependence on renal dialysis; Z99.2 - Dependence on renal dialysis; Z99.2 - Dependence on renal dialysis (4) Atrial fibrillation Current Visit: Yes Status: Chronic Assessment and plan: Chronic atrial fibrillation, rate controlled Continue Cardizem, patient is not on anticoagulation at home Qualifiers: Atrial fibrillation type: chronic Qualified Code(s): I48.2 - Chronic atrial fibrillation (5) ESRD (end stage renal disease) on dialysis Current Visit: Yes Status: Chronic Assessment and plan: ESRD on HD on Friday Tolerating HD well, nephrology following (6) COPD (chronic obstructive pulmonary disease) Current Visit: Yes Status: Chronic Assessment and plan: COPD, stable, no exacerbation Continue DuoNeb breathing treatment as needed Qualifiers: COPD type: emphysema Emphysema type: panlobular Qualified Code(s): J43.1 - Panlobular emphysema (7) Frail elderly Current Visit: Yes Status: Acute Assessment and plan: Patient does have severe malnutrition and is frail (8) DVT prophylaxis Current Visit: Yes Status: Acute Assessment and plan: SCDs, patient is ambulating well - Time Spent With Patient 25 - 35 minutes - Subjective Interval history: Examined the patient this morning. Patient is awake and alert. Not in any distress. Denies chest pain or shortness of breath. Hemodynamically stable. No fever. No acute events or complaints. H&H stable. Patient states she feels better and wants to go home. Doing well on hemodialysis today. Patient will need IV Zyvox today and that completed the course. TPN is being set up at home with home health. Anticipate discharge tomorrow. - Constitutional Vitals: Temp Pulse Resp BP Pulse Ox 97.6 F 83 15 118/58 95 10/26/17 10:30 10/26/17 03:52 10/26/17 10:30 10/26/17 13:45 10/26/17 07:35 General appearance: Present: cachectic, cooperative, A&O X 3, pleasant, no acute distress, underweight, answers questions appropriately - Head Head exam: Present: atraumatic - Eye Eye exam: Present: EOMI - ENT ENT exam: Present: mucous membranes dry - Respiratory Respiratory exam: Present: rhonchi (Bilateral). Absent: accessory muscle use, chest wall tenderness, rales, respiratory distress, wheezes, tachypnea - Cardiovascular Cardiovascular exam: Present: RRR, +S1, +S2 - GI/Abdominal GI/Abdominal exam: Present: soft. Absent: distended, firm, guarding, tenderness - Extremities Exam Extremities exam: Present: radial pulses palpable and symmetrical. Absent: calf tenderness, cyanotic, pedal edema - Neurological Exam Neurological exam: Present: alert, oriented X3, no focal deficits. Absent: facial droop, speech deficit Internal Medicine: Result - Labs CBC & Chem 7: 10/26/17 04:50 10/26/17 04:50 Labs: Short CBC 10/26/17 Range/Units 04:50 WBC 3.6 L (4.3-11.1) K/mcL Hgb 7.6 L (11.5-15.4) g/dL Hct 24.0 L (35.3-44.9) % Plt Count 84 L (140-400) K/mcL Neutrophils # 2.3 (1.6-8.9) K/mcL BMP 10/26/17 04:50 Sodium 135 L Potassium 4.6 Chloride 100 Carbon Dioxide 22 L BUN 65 H Creatinine 5.35 H Glucose 82 Calcium 7.7 L - ABG Interpretation ABG results: PT/INR, D-dimer PT 13.0 Seconds (9.4-12.1) H 10/16/17 19:35 - VTE Documentation of Mechanical Device: Intermittent pneumatic compression device Consult Discharge Plan - Plan Referrals: aN Johansen CNP [Primary Care Provider] - (Please call upon discharge) Prescriptions: HYDROcodone/Acet 7.5/325 mg [[place] 7.5-325 mg] 1 tab PO Q6HR PRN #10 tablet PRN Reason: severe pain Linezolid 600 MG/300 ML [Zyvox Premix 600mg/300mL] 600 mg IVPB Q12HR 2 Days #4 bag Benzonatate [Tessalon] 100 mg PO TID PRN #90 capsule PRN Reason: Cough
[2017-10-26] MEDS: Nicotine 21 MG PATCH.TD24 TD SCH (17:41)
[2017-10-26] MEDS: Diltiazem CD (24hr) 120 MG CAPSULE PO SCH (17:41)
[2017-10-26] MEDS ORDERED: Clinimix 5%-20% SOLUTION 2,000 ML with MVI, adult with vitamin K 10 ML, Sodium Acetat... IVC SCH (19:00)
[2017-10-27] MEDS: Ondansetron 4 MG/2 ML VIAL IVP PRN ×4 (02:04→20:38)
[2017-10-27] MEDS: *HR* HYDROcodone/Acet 7.5/325 mg TABLET PO PRN ×4 (02:04→20:38)
[2017-10-27] MEDS: Acetylcysteine 10% 2 ML INHSOL IH SCH ×6 (03:42→23:09)
[2017-10-27] MEDS: Ipratropium/Albuterol Neb 3 ML IH SCH ×6 (03:43→23:09)
[2017-10-27 06:23] LABS: Calcium 8.2 mg/dL (8.6-10.3); Magnesium 1.8 mg/dL (1.6-2.6); Phosphorous 4.8 mg/dL (2.7-4.5); Potassium 4.3 mEq/L (3.5-5.1)
[2017-10-27] MEDS: Cholecalciferol (D-3) 1,000 UNIT TABLET PO SCH (08:40)
[2017-10-27] MEDS: Renal Vitamin 1 MG CAPSULE PO SCH (08:40)
[2017-10-27] MEDS: Furosemide 40 MG/4 ML VIAL IVP SCH ×2 (08:40→17:51)
[2017-10-27] MEDS: Lactobacillus 1 EACH CAP.SPRINK PO SCH ×2 (08:41→20:38)
[2017-10-27] MEDS: Levofloxacin 500 MG/100 ML 500 MG/100 ML BAG IVPB SCH (08:41)
[2017-10-27] MEDS: Nicotine 21 MG PATCH.TD24 TD SCH (08:41)
[2017-10-27] MEDS: Diltiazem CD (24hr) 120 MG CAPSULE PO SCH (08:41)
--- NOTE | 2017-10-27 09:02 | Nephrology Progress Note ---
Date of Encounter: 10/27/17 Time of Encounter: 09:00 - Assessment and Plan (1) ESRD (end stage renal disease) Current Visit: No Status: Chronic Renal diet. Renal dose medications. Dialysis MWF and as needed. Plan on performing dialysis Friday. (2) Anemia Current Visit: No Status: Chronic Chronic anemia. No active bleeding at this time. Qualifiers: Anemia type: unspecified type Qualified Code(s): D64.9 - Anemia, unspecified (3) Frail elderly Current Visit: Yes Status: Acute Per primary team. (4) Severe malnutrition Current Visit: Yes Status: Chronic Chronic malnutrition. Patient with short gut syndrome. Patient back on TPN. (5) Hypocalcemia Current Visit: No Status: Acute Monitor. Will need high calcium bath on dialysis. Subjective Principal diagnosis: ESRD, Short gut syndrome Interval history: Patient seen sitting on bed. She states her abdominal pain is worse. She states she wants to go home, but doesn't feel well today. She has some dyspnea. Objective - Vital Signs Vital signs: Vital Signs Temp Pulse Resp BP Pulse Ox 10/27/17 07:48 18 111/68 98 10/27/17 06:57 98.0 F 82 17 111/68 98 10/27/17 03:44 17 98 10/27/17 03:03 98.1 F 89 18 125/63 100 10/26/17 23:45 99.4 F 95 18 103/42 96 10/26/17 23:24 16 97 10/26/17 20:14 17 98 10/26/17 19:38 98.9 F 98 18 120/67 95 10/26/17 16:06 18 100 10/26/17 15:20 98.7 F 100 17 133/66 99 10/26/17 14:10 99.2 F 16 122/56 10/26/17 14:00 115/51 10/26/17 13:45 118/58 10/26/17 13:30 126/60 10/26/17 13:15 127/58 10/26/17 13:00 119/51 10/26/17 12:45 128/74 10/26/17 12:30 127/53 10/26/17 12:15 130/62 10/26/17 12:00 121/56 10/26/17 11:45 128/61 10/26/17 11:30 129/66 10/26/17 11:15 121/60 10/26/17 11:00 125/61 10/26/17 10:45 118/60 10/26/17 10:30 97.6 F 15 122/64 Intake and Output 10/26/17 10/27/17 10/27/17 23:59 07:59 15:59 Intake Total 300 / 300 Output Total 1100 / 1100 Balance -800 / -800 Intake: IV Fluids 300 / 300 Zyvox Premix 600mg/300mL 600 mg 300 / 300 In 300 ml @ 150 mls/hr IVPB Q12HR [facility] Rx#:[id number] Output: Stool 1100 / 1100 Other: Stool Consistency loose Stool Characteristics Foamy Stool Color Yellow Green Weight 64.4 kg Blood Glucose* 106 115 Patient Weight 10/27/17 23:59 Weight 64.4 kg - General Appearance General appearance: Present: well-developed, well-nourished EENT: Present: ATNC Cardiology: Present: regular rate Neurologic: Present: alert and oriented x3 Psychiatric: Present: mood/affect appropriate - Lab 10/26/17 04:50 10/27/17 05:18 Most recent lab results Calcium 8.2 mg/dL (8.6-10.3) L 10/27/17 05:18 Phosphorus 4.8 mg/dL (2.7-4.5) H 10/27/17 05:18 Magnesium 1.8 mg/dL (1.6-2.6) 10/27/17 05:18 - VTE Documentation of Mechanical Device: Intermittent pneumatic compression device Consult Discharge Plan - Plan Referrals: Na Johansen, SCANNING TECH [Primary Care Provider] - (Please call upon discharge) Prescriptions: HYDROcodone/Acet 7.5/325 mg [[place] 7.5-325 mg] 1 tab PO Q6HR PRN #10 tablet PRN Reason: severe pain Linezolid 600 MG/300 ML [Zyvox Premix 600mg/300mL] 600 mg IVPB Q12HR 2 Days #4 bag Benzonatate [Tessalon] 100 mg PO TID PRN #90 capsule PRN Reason: Cough
--- NOTE | 2017-10-27 09:38 | Internal Med Progress Note ---
<Jerome Tripp - Last Filed: 10/27/17 09:36> Date of Encounter: 10/27/17 Time of Encounter: 08:15 - Assessment and plan (1) Attention to urostomy Current Visit: Yes Status: Chronic Assessment and plan: UTI with VRE and enterobacter in setting of urostomy bag. Zyvox and levaquin therapy completed. (2) Severe malnutrition Current Visit: Yes Status: Chronic Assessment and plan: Secondary to short bowel syndrome and chronic diarrhea Has multiple electrolyte imbalances TPN being set up at home There was a brief time when the patient refused TPN, but she is back to allowing it (3) Short bowel syndrome Current Visit: Yes Status: Chronic Assessment and plan: See plan of care above (4) Chest pain Current Visit: Yes Status: Acute Assessment and plan: Secondary to fractured rib on left Hydrocodone for pain control Anti-tussives, including tessalon perles Qualifiers: Chest pain type: chest pain on breathing Qualified Code(s): R07.1 - Chest pain on breathing; R07.81 - Pleurodynia (5) Colostomy care Current Visit: Yes Status: Chronic (6) ESRD on dialysis Current Visit: Yes Status: Chronic Assessment and plan: Nephrology following Next dialysis tomorrow Normal schedule MWF (7) Fluid overload Current Visit: Yes Status: Acute Assessment and plan: Continue lasix Avoid fluids beyond TPN Qualifiers: Hypervolemia type: unspecified Qualified Code(s): E87.70 - Fluid overload, unspecified (8) COPD (chronic obstructive pulmonary disease) Current Visit: Yes Status: Chronic Assessment and plan: COPD, stable, no exacerbation Continue DuoNeb breathing treatment as needed Qualifiers: COPD type: emphysema Emphysema type: panlobular Qualified Code(s): J43.1 - Panlobular emphysema (9) Paroxysmal a-fib Current Visit: No Status: Chronic Assessment and plan: Diltiazem No anticoagulation due to anemia (10) Hypokalemia Current Visit: Yes Status: Resolved Assessment and plan: Resolved. Continue to monitor. (11) Anemia in CKD (chronic kidney disease) Current Visit: Yes Status: Chronic Assessment and plan: Last Hgb 7.6 - likely at baseline - Patient is asymptomatic - no active bleeding 2 units PRBCs have been transfused, now stable Qualifiers: Chronic kidney disease stage: on chronic dialysis Qualified Code(s): N18.6 - End stage renal disease; D63.1 - Anemia in chronic kidney disease; D63.1 - Anemia in chronic kidney disease; Z99.2 - Dependence on renal dialysis; Z99.2 - Dependence on renal dialysis; Z99.2 - Dependence on renal dialysis; Z99.2 - Dependence on renal dialysis (12) DVT prophylaxis Current Visit: Yes Status: Acute Assessment and plan: SCDs, patient is ambulating well - Subjective Interval history: Patient complaining of some abdominal pain. Chest pain stable. - Constitutional Vitals: Temp Pulse Resp BP Pulse Ox 98.0 F 82 18 111/68 98 10/27/17 06:57 10/27/17 06:57 10/27/17 07:48 10/27/17 07:48 10/27/17 07:48 General appearance: Present: cachectic, cooperative, A&O X 3, pleasant, no acute distress, underweight, answers questions appropriately - Head Head exam: Present: atraumatic, normal inspection, normocephalic - ENT ENT exam: Present: mucous membranes dry, mucous membranes moist - Neck Neck exam general surgery: Present: trachea midline - Respiratory Respiratory exam: Present: prolonged expiratory phase, rhonchi, wheezes. Absent : accessory muscle use, respiratory distress - Cardiovascular Cardiovascular exam: Present: RRR, +S1, +S2 - GI/Abdominal GI/Abdominal exam: Present: soft, no peritoneal signs. Absent: firm, guarding, rigid - Neurological Exam Neurological exam: Present: alert, oriented X3, no focal deficits - Psychiatric Psychiatric exam: Present: normal affect, normal mood - Skin Skin exam: Present: dry, warm Internal Medicine: Result - Labs CBC & Chem 7: 10/26/17 04:50 10/27/17 05:18 Labs: Short CBC 10/26/17 Range/Units 04:50 Neutrophils # 2.3 (1.6-8.9) K/mcL BMP 10/27/17 05:18 Sodium 136 Potassium 4.3 Chloride 100 Carbon Dioxide 29 BUN 35 H Creatinine 3.48 H Glucose 98 Calcium 8.2 L - ABG Interpretation ABG results: PT/INR, D-dimer PT 13.0 Seconds (9.4-12.1) H 10/16/17 19:35 - VTE Documentation of Mechanical Device: Intermittent pneumatic compression device Consult Discharge Plan - Plan Referrals: Na Johansen, [employer] OV[employer] ATTENDANT [Primary Care Provider] - (Please call upon discharge) Prescriptions: HYDROcodone/Acet 7.5/325 mg [[place] 7.5-325 mg] 1 tab PO Q6HR PRN #10 tablet PRN Reason: severe pain Linezolid 600 MG/300 ML [Zyvox Premix 600mg/300mL] 600 mg IVPB Q12HR 2 Days #4 bag Benzonatate [Tessalon] 100 mg PO TID PRN #90 capsule PRN Reason: Cough <Contreras-Wayne Ramirez - Last Filed: 10/27/17 10:40> Date of Encounter: 10/27/17 - Assessment and plan (1) UTI (urinary tract infection) Current Visit: Yes Status: Acute Qualifiers: Urinary tract infection type: acute cystitis Hematuria presence: without hematuria Qualified Code(s): N30.00 - Acute cystitis without hematuria (2) Severe malnutrition Current Visit: Yes Status: Chronic (3) Anemia in CKD (chronic kidney disease) Current Visit: Yes Status: Chronic Qualifiers: Chronic kidney disease stage: on chronic dialysis Qualified Code(s): N18.6 - End stage renal disease; D63.1 - Anemia in chronic kidney disease; D63.1 - Anemia in chronic kidney disease; Z99.2 - Dependence on renal dialysis; Z99.2 - Dependence on renal dialysis; Z99.2 - Dependence on renal dialysis; Z99.2 - Dependence on renal dialysis (4) Atrial fibrillation Current Visit: Yes Status: Chronic Qualifiers: Atrial fibrillation type: chronic Qualified Code(s): I48.2 - Chronic atrial fibrillation (5) ESRD (end stage renal disease) on dialysis Current Visit: Yes Status: Chronic (6) COPD (chronic obstructive pulmonary disease) Current Visit: Yes Status: Chronic Qualifiers: COPD type: emphysema Emphysema type: panlobular Qualified Code(s): J43.1 - Panlobular emphysema (7) Frail elderly Current Visit: Yes Status: Acute (8) DVT prophylaxis Current Visit: Yes Status: Acute - Constitutional Vitals: Temp Pulse Resp BP Pulse Ox 98.0 F 82 18 111/68 98 10/27/17 06:57 10/27/17 06:57 10/27/17 07:48 10/27/17 07:48 10/27/17 07:48 Internal Medicine: Result - Labs CBC & Chem 7: 10/26/17 04:50 10/27/17 05:18 Labs: BMP 10/27/17 05:18 Sodium 136 Potassium 4.3 Chloride 100 Carbon Dioxide 29 BUN 35 H Creatinine 3.48 H Glucose 98 Calcium 8.2 L - ABG Interpretation ABG results: PT/INR, D-dimer PT 13.0 Seconds (9.4-12.1) H 10/16/17 19:35 - Attending Attestation I examined this patient and my medical decision-making was reviewed with the Resident Physician. I agree with the documented findings, disposition and treatment plan as described except to the extent set forth below. I have seen and examined the patient. Patient is awake and alert. Not in any distress. Denies chest pain or shortness of breath. She is tolerating oral diet. Ambulating well. TPN is being continued. Plan is for discharge home with home health. TPN will be set up at home tomorrow. No fever. Hemodynamically stable. No acute events or complaints. IV Zyvox course is now complete. Patient is stable for discharge tomorrow once the TPN has been set up. Patient has been explained about her condition and plan of care. She understood and agreed. No unanswered questions. Heart - S1-S2 positive. Lungs - bilateral good air entry no wheeze or crackles. Abdomen - soft, nontender, ostomy site looks okay. Extremities - all pulses strong and regular, no edema. Neuro - awake and alert, no deficits.
[2017-10-27] MEDS ORDERED: Clinimix 5%-20% SOLUTION 2,000 ML with MVI, adult with vitamin K 10 ML, Sodium Acetat... IVC SCH (19:00)
[2017-10-27] MEDS: Famotidine 20 MG TABLET PO SCH (20:38)
[2017-10-28] MEDS: Ondansetron 4 MG/2 ML VIAL IVP PRN ×2 (03:20→09:34)
[2017-10-28] MEDS: *HR* HYDROcodone/Acet 7.5/325 mg TABLET PO PRN ×2 (03:20→09:34)
[2017-10-28] MEDS: Acetylcysteine 10% 2 ML INHSOL IH SCH ×3 (04:15→11:03)
[2017-10-28] MEDS: Ipratropium/Albuterol Neb 3 ML IH SCH ×3 (04:15→11:03)
[2017-10-28 07:16] LABS: Calcium 8.3 mg/dL (8.6-10.3); Phosphorous 6.2 mg/dL (2.7-4.5); Potassium 4.8 mEq/L (3.5-5.1)
[2017-10-28 07:39] LABS: Hematocrit 23.2 % (35.3-44.9); Hemoglobin 7.3 g/dL (11.5-15.4); Mean Corpuscular HGB Conc 31.5 g/dL (31.6-35.5); Mean Corpuscular Volume 95.5 fL (83.0-100.0); Mean Platelet Volume 10.3 fL (9.4-12.4); Platelet Count 105 K/mcL (140-400); Red Blood Count 2.43 M/mcL (3.82-4.97); Red Cell Distribution Width 17.7 % (11.5-14.5)
[2017-10-28] MEDS: Cholecalciferol (D-3) 1,000 UNIT TABLET PO SCH (09:34)
[2017-10-28] MEDS: Lactobacillus 1 EACH CAP.SPRINK PO SCH (09:34)
[2017-10-28] MEDS: Furosemide 40 MG/4 ML VIAL IVP SCH (09:34)
[2017-10-28] MEDS: Renal Vitamin 1 MG CAPSULE PO SCH (09:34)
[2017-10-28] MEDS: Nicotine 21 MG PATCH.TD24 TD SCH (09:35)
--- NOTE | 2017-10-28 10:02 | Nephrology Progress Note ---
Date of Encounter: 10/28/17 Time of Encounter: 09:59 - Assessment and Plan (1) ESRD on dialysis Current Visit: Yes Status: Chronic HD today (holiday yesterday so did not run on normal day) Continue renal diet Avoid nephrotoxins if possible (2) Severe malnutrition Current Visit: Yes Status: Chronic Setting up Home Health for continuation of TPN (3) Anemia Current Visit: No Status: Chronic Hgb 7.3 Transfuse per parameters per primary team Will continue Aranesp Qualifiers: Anemia type: unspecified type Qualified Code(s): D64.9 - Anemia, unspecified Subjective Principal diagnosis: ESRD, Short gut syndrome Interval history: Patient seen and examined. Waiting for TPN to be set up at home, nurse states it may take several more days Objective - Vital Signs Vital signs: Vital Signs Temp Pulse Resp BP Pulse Ox 10/28/17 07:45 18 98 10/28/17 07:00 98.3 F 98 16 139/69 100 10/28/17 04:17 16 96 10/28/17 03:50 98.2 F 93 16 128/69 96 10/27/17 23:38 98.0 F 94 16 138/66 100 10/27/17 23:11 18 97 10/27/17 20:10 18 98 10/27/17 20:04 98.0 F 85 16 124/61 98 10/27/17 16:15 97.9 F 96 16 131/69 96 10/27/17 15:08 18 97 10/27/17 11:24 18 97 10/27/17 10:44 98.2 F 91 17 119/64 97 Intake and Output 10/27/17 10/28/17 10/28/17 23:59 07:59 15:59 Intake Total 460 / 460 360 / 360 Output Total 300 / 300 Balance 460 / 460 -300 / -300 360 / 360 Intake: Oral 460 / 460 360 / 360 Output: Stool 300 / 300 Other: Meal Dinner Breakfast Percent of Meal Consumed 100% 100% Weight 63.8 kg Blood Glucose* 125 148 Patient Weight 10/28/17 23:59 Weight 63.8 kg - General Appearance General appearance: Present: cachectic, chronically ill, frail EENT: Present: ATNC, hearing intact, vision intact Neck: Present: supple Respiratory: Present: wheezing, course breath sounds Cardiology: Present: no edema, normal S1, normal S2 Gastrointestinal: Present: no guarding Integumentary: Present: warm and dry Neurologic: Present: alert and oriented x3 Psychiatric: Present: mood/affect appropriate, cooperative - Lab 10/28/17 07:33 10/28/17 06:38 Most recent lab results Calcium 8.3 mg/dL (8.6-10.3) L 10/28/17 06:38 Phosphorus 6.2 mg/dL (2.7-4.5) H 10/28/17 06:38 Magnesium 2.0 mg/dL (1.6-2.6) 10/28/17 06:38 - VTE Documentation of Mechanical Device: Intermittent pneumatic compression device Consult Discharge Plan - Plan Referrals: Na Johansen, DELIVERY SPECIALIST [Primary Care Provider] - (Please call upon discharge) Prescriptions: HYDROcodone/Acet 7.5/325 mg [[place] 7.5-325 mg] 1 tab PO Q6HR PRN #10 tablet PRN Reason: severe pain Linezolid 600 MG/300 ML [Zyvox Premix 600mg/300mL] 600 mg IVPB Q12HR 2 Days #4 bag Benzonatate [Tessalon] 100 mg PO TID PRN #90 capsule PRN Reason: Cough
[2017-10-28 10:50] VITALS: BP 158/64
[2017-10-28] MEDS: Diltiazem CD (24hr) 120 MG CAPSULE PO SCH (11:10)
--- NOTE | 2017-10-28 12:57 | Internal Med Progress Note ---
Date of Encounter: 10/28/17 Time of Encounter: 12:55 - Assessment and plan (1) Severe malnutrition Current Visit: Yes Status: Chronic Assessment and plan: Continue TPN at home. Follow up outpatient with PCP for further management. (2) ESRD (end stage renal disease) on dialysis Current Visit: Yes Status: Chronic Assessment and plan: Continue dialysis per nephrology recommendations and usual schedule. (3) Short bowel syndrome Current Visit: Yes Status: Chronic Assessment and plan: On TPN. Tolerating well. Okay to discharge from a medical standpoint. Discharge paperwork has already been completed. - Subjective Interval history: Patient is awake and alert. No new complaints at this time. Awaiting discharge. No other acute issues. - Constitutional Vitals: Temp Pulse Resp BP Pulse Ox 98.7 F 90 18 158/64 96 10/28/17 10:47 10/28/17 10:47 10/28/17 11:06 10/28/17 10:47 10/28/17 11:06 General appearance: Present: cachectic, cooperative, A&O X 3, pleasant, no acute distress, underweight, answers questions appropriately - Neurological Exam Neurological exam: Present: alert, oriented X3, no focal deficits. Absent: facial droop, speech deficit Internal Medicine: Result - Labs CBC & Chem 7: 10/28/17 07:33 10/28/17 06:38 Labs: Short CBC 10/28/17 Range/Units 07:33 WBC 4.7 (4.3-11.1) K/mcL Hgb 7.3 L (11.5-15.4) g/dL Hct 23.2 L (35.3-44.9) % Plt Count 105 L (140-400) K/mcL BMP 10/28/17 06:38 Sodium 135 L Potassium 4.8 Chloride 99 Carbon Dioxide 24 BUN 54 H Creatinine 4.69 H Glucose 80 Calcium 8.3 L - ABG Interpretation ABG results: PT/INR, D-dimer PT 13.0 Seconds (9.4-12.1) H 10/16/17 19:35 - VTE Documentation of Mechanical Device: Intermittent pneumatic compression device Consult Discharge Plan - Plan Referrals: Na Johansen, C.O.D. AUDIT CLERK [Primary Care Provider] - (Please call upon discharge... ) Prescriptions: HYDROcodone/Acet 7.5/325 mg [[place] 7.5-325 mg] 1 tab PO Q6HR PRN #10 tablet PRN Reason: severe pain Benzonatate [Tessalon] 100 mg PO TID PRN #90 capsule PRN Reason: Cough
[2017-10-29] MEDS ORDERED: Furosemide 20 MG TABLET PO SCH (09:00)
== END 2017-10-28 15:14 | disposition home health service (06) | DRG 466 ==
LOC: EMEROO 17:47 → SUATTDRO 22:21 → 2ANU 22:21
PROVIDERS: ADMIT Nurse Practitioner; ATTEND Internal Medicine

== ENCOUNTER 2017-11-14 09:13 | Inpatient (IN) ==
--- NOTE | 2017-11-14 09:42 | Emergency Department Note ---
Disposition Clinical Impression: Elevated troponin Chest pain Qualifiers: Chest pain type: unspecified Qualified Code(s): R07.9 - Chest pain, unspecified Pneumonia Qualifiers: Pneumonia type: due to unspecified organism Laterality: right Lung location: lower lobe of lung Qualified Code(s): J18.1 - Lobar pneumonia, unspecified organism CKD (chronic kidney disease) Qualifiers: Chronic kidney disease stage: on chronic dialysis Qualified Code(s): N18.6 - End stage renal disease Disposition: Admitted As Inpatient Condition: Fair Time of Disposition: 11:34 General Adult HPI - General Chief complaint: ED Chest Pain Stated complaint: chest pain Time Seen by Provider: 11/14/17 09:18 Source: patient, EMS Limitations: no limitations Nursing Notes Reviewed: Yes Vital Signs Reviewed: Yes - History of Present Illness HPI Narrative: Patient is a 72-year-old female that presents to the emergency department via EMS for chest pain. She states that the chest pain is left-sided and now it is diffuse chest pain she rates as a 10 out of 10 and started approximately 1 hour prior to calling EMS. Patient describes it as sharp and nonradiating. Patient states that she has been nauseated but is chronically nauseated. Patient denies any diaphoretic or having anything like this in the past. Patient is a dialysis patient and dialyzes Friday, Friday and Friday. Her last dialysis session was on Friday (2 days ago). Pain Scale: 8 - Related Data Home Medications Medication Instructions Recorded Confirmed Cholecalciferol (Vitamin D3) 5,000 unit PO DAILY #0 09/19/15 10/17/17 [Vitamin D3] Ranitidine HCl [Zantac] 150 mg PO HS 09/19/15 10/17/17 Cyanocobalamin (B-12) [Vitamin B12] 1,000 mcg IM QMONTH 02/21/17 10/17/17 Levothyroxine Sodium [Synthroid] 300 mcg PO DAILY 02/21/17 10/17/17 Mometasone/Formoterol [Dulera 100 2 puff IH BID 02/21/17 10/17/17 Mcg/5 Mcg Inhaler] Lidocaine/Prilocaine CREAM [Emla] 1 appl TP AD PRN 06/30/17 10/17/17 Renal Vitamin [Renal Caps Softgel] 1 mg PO DAILY 06/30/17 10/17/17 Menthol [[place]] 3.2 mg MM Q4H PRN 07/16/17 10/17/17 Calcium Acetate [Phos-LO] 667 mg PO TIDWM 10/17/17 10/17/17 Furosemide [Lasix] 20 mg PO DAILY 10/28/17 10/28/17 Ferrous Sulfate 325 mg PO DAILY 11/14/17 11/14/17 Gabapentin [Neurontin] 100 mg PO TID 11/14/17 11/14/17 Previous Rx's Medication Instructions Recorded Acetaminophen [Tylenol] 650 mg PO Q6HR PRN #20 tab 07/10/17 Diltiazem CD (24hr) [Cardizem CD] 120 mg PO DAILY cap.er.24h 09/14/17 GuaiFENesin ER [Mucinex] 600 mg PO BID 5 Days #10 tbbp.12hr 09/14/17 Nicotine Patch [Nicoderm] 21 mg TD DAILY #30 patch.td24 09/14/17 Amitriptyline [Elavil] 50 mg PO HS tablet 10/24/17 Benzonatate [Tessalon] 100 mg PO TID PRN #90 capsule 10/24/17 Calcitriol [Rocaltrol] 0.25 mcg PO DAILY capsule 10/24/17 HYDROcodone/Acet 7.5/325 mg [[place] 1 tab PO Q6HR PRN #10 tablet 10/24/17 7.5-325 mg] Ipratropium/Albuterol Neb [Duoneb] 3 ml IH [id number] inhsol 10/24/17 Allergies Allergy/AdvReac Type Severity Reaction Status Date / Time codeine AdvReac Severe Vomiting Verified 03/06/17 15:22 naproxen [From Naprosyn] AdvReac Severe Vomiting Verified 03/06/17 15:22 All systems ED: reviewed and negative except as stated. Cardiovascular: Reports: chest pain Respiratory: Reports: dyspnea Gastrointestinal: Reports: nausea Past Medical History - Past Medical History Medical history: Reports: asthma, atrial fibrillation, COPD, GERD, hypertension , renal disease, thyroid disease Surgical history: Reports: appendectomy, cholecystectomy, colostomy, hysterectomy, other Psychiatric history: Reports: no psych history - Social History Smoking Status: Current every day smoker Smokeless Tobacco Status: No Alcohol use: Reports: none Drug use: Reports: none Physical Exam - General Limitations: no limitations General appearance: alert, in no apparent distress - Head Head exam: atraumatic, normocephalic - Eye Eye exam: Present: normal appearance, EOMI - Neck Neck exam: Present: normal inspection, full ROM, trachea midline - Respiratory Respiratory exam: Present: other (Patient has crackles bilaterally) - Cardiovascular Cardiovascular exam: Present: regular rate, normal rhythm, normal heart sounds, +S1, +S2 - Abdominal Exam Abdominal exam: Present: soft, tenderness, normal bowel sounds, other (Patient has a colostomy bag in place from previous operation) Abdominal tenderness: Present: diffuse, mild - Neurological Exam Neurological exam: Present: alert, oriented X3 - Psychiatric Psychiatric exam: Present: normal affect, normal mood - Skin Skin exam: Present: warm, dry, intact Course Vital Signs Temperature 99.7 F H 11/14/17 09:16 Pulse Rate 96 11/14/17 09:16 Respiratory Rate 18 11/14/17 09:16 Blood Pressure 102/56 11/14/17 09:16 O2 Sat by Pulse Oximetry 95 11/14/17 09:16 Temperature 99.7 F H 11/14/17 09:16 Pulse Rate 100 11/14/17 09:26 Respiratory Rate 20 11/14/17 09:26 Blood Pressure 102/56 11/14/17 09:26 O2 Sat by Pulse Oximetry 98 11/14/17 09:27 Oxygen Delivery Oxygen Delivery Nasal Cannula Medical Decision Making - [facility] Narrative Medical decision making narrative: Due to the patient presented with chest pain we will do a cardiac workup including a CBC, BMP, troponin, chest x-ray and EKG to evaluate this patient. The patient has evidence of pneumonia on chest x-ray. She is that she has been admitted to the hospital in the last 2-3 weeks we will treat that as a hospital acquired pneumonia and give her Levaquin, vancomycin and Zosyn. The patient will need admission to the hospital for further evaluation and management. Bun was elevated at 0.05 patient has chronically elevated troponin slightly to her kidney function. I spoke with the hospitalist and they have accepted the patient for service. The patient will be admitted to the hospital for further evaluation and management. I have also spoken to nephrology and they are aware the patient will need dialysis. - Medical Records Medical records reviewed: Yes I reviewed the patient's medical records. - Lab Data Lab results reviewed: Yes I reviewed the patient's lab results. Result diagrams: 11/14/17 10:30 11/14/17 10:30 Lab Results 11/14/17 11/14/17 11/14/17 Range/Units 10:30 10:30 10:30 WBC 10.2 (4.3-11.1) K/mcL RBC 3.59 L (3.82-4.97) M/mcL Hgb 10.9 L D (11.5-15.4) g/dL Hct 33.7 L (35.3-44.9) % MCV 93.9 (83.0-100.0) fL MCH 30.4 (28.0-33.3) pg MCHC 32.3 (31.6-35.5) g/dL RDW 16.2 H (11.5-14.5) % Plt Count 111 L (140-400) K/mcL MPV 11.4 (9.4-12.4) fL Immature Gran % 1.5 (0-4) % Seg Neutrophils % 90.1 % Lymphocytes % 6.2 % Monocytes % 2.1 % Eosinophils % 0.0 % Basophils % 0.1 % Neutrophils # 9.2 H (1.6-8.9) K/mcL Lymphocytes # 0.6 (0.6-4.6) K/mcL Monocytes # 0.2 (0.0-1.3) K/mcL Eosinophils # 0.0 (0.0-0.6) K/mcL Basophils # 0.0 (0.0-0.2) K/mcL PT 16.2 H (9.4-12.1) Seconds INR 1.5 APTT 26.5 (26.0-36.0) Seconds Sodium 135 L (136-145) mEq/L Potassium 3.5 (3.5-5.1) mEq/L Chloride 88 L (98-107) mEq/L Carbon Dioxide 29 (23-29) mEq/L BUN 30 H (8-23) mg/dL Creatinine 7.31 H (0.60-1.20) mg/dL Est GFR ( Amer) 7 L (> 60) Est GFR (Non-Af Amer) 5 L (> 60) BUN/Creatinine Ratio 4 L (6-26) Glucose 75 (70-105) mg/dL Calculated Osmolality 285 (280-300) Calcium 7.9 L (8.6-10.3) mg/dL Troponin I (< 0.04) ng/mL 11/14/17 Range/Units 10:30 WBC (4.3-11.1) K/mcL RBC (3.82-4.97) M/mcL Hgb (11.5-15.4) g/dL Hct (35.3-44.9) % MCV (83.0-100.0) fL MCH (28.0-33.3) pg MCHC (31.6-35.5) g/dL RDW (11.5-14.5) % Plt Count (140-400) K/mcL MPV (9.4-12.4) fL Immature Gran % (0-4) % Seg Neutrophils % % Lymphocytes % % Monocytes % % Eosinophils % % Basophils % % Neutrophils # (1.6-8.9) K/mcL Lymphocytes # (0.6-4.6) K/mcL Monocytes # (0.0-1.3) K/mcL Eosinophils # (0.0-0.6) K/mcL Basophils # (0.0-0.2) K/mcL PT (9.4-12.1) Seconds INR APTT (26.0-36.0) Seconds Sodium (136-145) mEq/L Potassium (3.5-5.1) mEq/L Chloride (98-107) mEq/L Carbon Dioxide (23-29) mEq/L BUN (8-23) mg/dL Creatinine (0.60-1.20) mg/dL Est GFR ( Amer) (> 60) Est GFR (Non-Af Amer) (> 60) BUN/Creatinine Ratio (6-26) Glucose (70-105) mg/dL Calculated Osmolality (280-300) Calcium (8.6-10.3) mg/dL Troponin I 0.05 H* (< 0.04) ng/mL - Radiology Data Radiology results reviewed: Yes I reviewed the patient's radiology results. Chest X-Ray 11/14/17 09:20 IMPRESSION: Patchy airspace opacities bilaterally, most pronounced at the right lung base, increased since the prior study, likely related to mild pulmonary edema versus pneumonia. D/ / Tre Jeffers MD / Tre Jeffers MD Interpreting Provider: Tre Jeffers MD - EKG Data EKG #1 EKG attestation: Yes I reviewed and interpreted this EKG. EKG results narrative: Patient's EKG shows sinus tachycardia at a rate of 100 bpm, DC interval of 132, to restrict of 89, QTC of 400 with a normal axis. There is no STEMI noted on this EKG. This was compared to previous EKG on 10/21/17 which showed sinus rhythm at a rate of 90 bpm.
[2017-11-14] MEDS ORDERED: *HR* LORazepam 2 MG/ML VIAL IVP ONE (10:00)
--- NOTE | 2017-11-14 10:21 | Emergency Department Note ---
START Narrative - START START: I examined this patient and my medical decision-making was reviewed with the Resident Physician. I agree with the documented findings, disposition and treatment plan as described except to the extent set forth below. 72 year old patricia presents to the ED with complaints of all over chest pain that started when she was getting ready to go to [facility], which is new for her. She state she has dialysis with Dr. María MARQUEZ. She states that she typically doesnt have chest pain She also has been recovering from pnuenoia over the past 2-3 months and there is aubdible cough with coarse breath sounds in exam. We wll do cardiopulmonary wokrup and likely admit o medicine.
[2017-11-14] MEDS ORDERED: Vancomycin 750 MG in D5% in Water 250 ML IVPB ONE ×2 (10:39→15:14)
[2017-11-14] MEDS ORDERED: Levofloxacin 750 MG/150 ML 750 MG/150 ML BAG IVPB ONE (10:39)
[2017-11-14] MEDS ORDERED: Piperacillin/Tazobactam 3.375 GM in Water for inj. (sterile) 20 ML IVP ONE (10:39)
[2017-11-14 10:44] LABS: Basophils % 0.1 %; Hematocrit 33.7 % (35.3-44.9); Immature Granulocytes % 1.5 % (0-4); Lymphocytes # 0.6 K/mcL (0.6-4.6); Lymphocytes % 6.2 %; Mean Corpuscular HGB Conc 32.3 g/dL (31.6-35.5); Mean Corpuscular Hemoglobin 30.4 pg (28.0-33.3); Mean Corpuscular Volume 93.9 fL (83.0-100.0); Mean Platelet Volume 11.4 fL (9.4-12.4); Monocytes # 0.2 K/mcL (0.0-1.3); Monocytes % 2.1 %; Neutrophils # 9.2 K/mcL (1.6-8.9); Platelet Count 111 K/mcL (140-400); Red Blood Count 3.59 M/mcL (3.82-4.97); Red Cell Distribution Width 16.2 % (11.5-14.5); Segmented Neutrophils % 90.1 %
[2017-11-14 10:46] LABS: Hemoglobin 10.9 g/dL (11.5-15.4)
[2017-11-14 10:51] LABS: INR 1.5; Prothrombin Time 16.2 Seconds (9.4-12.1)
[2017-11-14 10:54] LABS: Activated Partial Thrombo Time 26.5 Seconds (26.0-36.0)
[2017-11-14 10:56] LABS: Calcium 7.9 mg/dL (8.6-10.3); Potassium 3.5 mEq/L (3.5-5.1)
--- NOTE | 2017-11-14 11:43 | Nephrology Consult Note ---
Date of Encounter: 11/14/17 Time of Encounter: 11:41 Assessment and Plan (1) ESRD (end stage renal disease) Current Visit: No Status: Chronic She undergoes chronic dialysis on Friday, Friday, Friday. She is not missed any dialysis sessions. We will arrange for her to have her regularly scheduled dialysis today, and continue on a Friday, Friday, Friday dialysis regimen. Recommend continuing her diuretics as clinically indicated. Continue a renal protective strategy by avoiding nephrotoxins and dosing medications based on GFR. (2) Chest pain Current Visit: Yes Status: Acute Further management per primary. Qualifiers: Chest pain type: unspecified Qualified Code(s): R07.9 - Chest pain, unspecified History of Present Illness - Reason for Consult Consult date: 11/14/17 Acute Kidney Injury Requesting physician: Keaton Conde - Chief Complaint Chest pain - History of Present Illness Patient is a 72-year-old female with history of end-stage renal disease who presents with chest pain. She reports this as left-sided, sharp and nonradiating. She also has a general feeling of unwell. She states that she has not missed any dialysis sessions and last had dialysis on Friday. She did not have her dialysis session today as scheduled. Past Med Surg Social Fam HX - Past Medical History Medical history: asthma, atrial fibrillation, COPD, GERD, hypertension, renal disease, thyroid disease Psychiatric history: no psych history - Past Surgical History Surgical History: appendectomy, cholecystectomy, colostomy, hysterectomy, other - Social History Smoking Status: Current every day smoker Smokeless Tobacco Status: No Alcohol use: none Drug use: none - Family History Mother Adopted: No Living Status: Hx Family Cardiac Disorders: Yes ([place]/ Stroke) Hx Family Respiratory Disorders: No Hx Family Cancer: No Hx Family GI Disorders: No Hx Family Endocrine Disorder: No Hx Family Neuromuscular Disorders: No Hx Family Neurologic Disorders: No Hx Family HEENT Disorders: No Hx Family Autoimmune Disorders: No Father Adopted: No Living Status: Hx Family Cardiac Disorders: Yes ([place]) Hx Family Respiratory Disorders: No Hx Family Cancer: No Hx Family GI Disorders: No Hx Family Endocrine Disorder: No Hx Family Neuromuscular Disorders: No Hx Family Neurologic Disorders: No Hx Family HEENT Disorders: No Hx Family Autoimmune Disorders: No Brother Living Status: Still Living Hx Family Cardiac Disorders: Yes Hx Family Respiratory Disorders: No Hx Family Endocrine Disorder: Yes Medications and Allergies Cholecalciferol (Vitamin D3) [Vitamin D3] 5,000 unit PO DAILY #0 09/19/15 [ History] Ranitidine HCl [Zantac] 150 mg PO HS 09/19/15 [History] Cyanocobalamin (B-12) [Vitamin B12] 1,000 mcg IM QMONTH 02/21/17 [History] Levothyroxine Sodium [Synthroid] 300 mcg PO DAILY 02/21/17 [History] Mometasone/Formoterol [Dulera 100 Mcg/5 Mcg Inhaler] 2 puff IH BID 02/21/17 [ History] Lidocaine/Prilocaine CREAM [Emla] 1 appl TP AD PRN 06/30/17 [History] Renal Vitamin [Renal Caps Softgel] 1 mg PO DAILY 06/30/17 [History] Acetaminophen [Tylenol] 650 mg PO Q6HR PRN #20 tab 07/10/17 [Rx] Menthol [[place]] 3.2 mg MM Q4H PRN 07/16/17 [History] Diltiazem CD (24hr) [Cardizem CD] 120 mg PO DAILY cap.er.24h 09/14/17 [Rx] GuaiFENesin ER [Mucinex] 600 mg PO BID 5 Days #10 tbbp.12hr 09/14/17 [Rx] Nicotine Patch [Nicoderm] 21 mg TD DAILY #30 patch.td24 09/14/17 [Rx] Calcium Acetate [Phos-LO] 667 mg PO TIDWM 10/17/17 [History] Amitriptyline [Elavil] 50 mg PO HS tablet 10/24/17 [Rx] Benzonatate [Tessalon] 100 mg PO TID PRN #90 capsule 10/24/17 [Rx] Calcitriol [Rocaltrol] 0.25 mcg PO DAILY capsule 10/24/17 [Rx] HYDROcodone/Acet 7.5/325 mg [[place] 7.5-325 mg] 1 tab PO Q6HR PRN #10 tablet [Rx] Ipratropium/Albuterol Neb [Duoneb] 3 ml IH [id number] inhsol 10/24/17 [Rx] Furosemide [Lasix] 20 mg PO DAILY 10/28/17 [History] Ferrous Sulfate 325 mg PO DAILY 11/14/17 [History] Gabapentin [Neurontin] 100 mg PO TID 11/14/17 [History] 3 Allergy/AdvReac Type Severity Reaction Status Date / Time codeine AdvReac Severe Vomiting Verified 03/06/17 15:22 naproxen [From Naprosyn] AdvReac Severe Vomiting Verified 03/06/17 15:22 Review of Systems All Systems: reviewed and no additional remarkable complaints except as stated Exam - Vital Signs Vital signs: Initial Vital Signs Temp Pulse Resp BP Pulse Ox 99.7 F H 96 18 102/56 95 11/14/17 09:16 11/14/17 09:16 11/14/17 09:16 11/14/17 09:16 11/14/17 09:16 - General Appearance General appearance: well-developed, well-nourished, appears started age EENT: ATNC, mucous membranes moist Neck: supple Respiratory: course breath sounds Cardiology: no murmurs, no rub, no gallops, edema, regular rhythm - Dialysis Access Dialysis Vascular Access: Arteriovenous Fistula thrill: Yes bruit: Yes Gastrointestinal: normoactive bowel sounds, no tenderness, no guarding Integumentary: no rash, warm and dry Neurologic: no focal deficit, alert and oriented x3 Musculoskeletal: no cyanosis, no clubbing Results - Lab Results 11/14/17 10:30 11/14/17 10:30 Most recent lab results Calcium 7.9 mg/dL (8.6-10.3) L 11/14/17 10:30 Consult Discharge Plan - Plan Referrals: Na Johansen, [employer]SULTANT [Primary Care Provider] -
[2017-11-14] MEDS ORDERED: 0.9 % Sodium Chloride 1,000 ML PRIME SCH (11:45)
[2017-11-14] MEDS ORDERED: Albumin 25% 25gram/100mL 25 GM/100 ML IV.SOLN IVPB ONE (12:36)
[2017-11-14] MEDS ORDERED: Albumin 25% 12.5gm/50mL 0 GM/0 ML IV.SOLN ONE (12:41)
--- NOTE | 2017-11-14 12:43 | Electrocardiograph Report ---
[place] [id number] Test Date: 2017-11-14 Pat Name: Vannessa Parra Department: 102 Room: 2A Gender: F [employer] Supervisor: Abe : 1945 Requested By: Keaton Conde Order Number: [id number] Reading MD: Dez Samaniego MD Measurements Intervals [place] Rate: 100 P: 24 UT: 132 QRS: 58 QRSD: 89 T: 61 QT: 343 QTc: 400 Interpretive Statements SINUS TACHYCARDIA MINIMAL VOLTAGE CRITERIA FOR LVH, CONSIDER NORMAL VARIANT Electronically Signed On 11-14-2017 12:41:29 EST by Dez Samaniego MD
[2017-11-14] MEDS: 0.9 % Sodium Chloride 250 ML IVC PRN ×2 (13:43→17:43)
[2017-11-14] MEDS ORDERED: Vancomycin 1 EACH in D5% in Water 250 ML IVPB SCH (15:00)
--- NOTE | 2017-11-14 15:07 | Pulmonology History & Physical ---
<DaejerelrenettasylvesterNeeraj - Last Filed: 11/14/17 15:27> Date of Encounter: 11/14/17 Time of Encounter: 15:03 Assessment and Plan (1) Sepsis Current visit: Yes Status: Acute Patient met sepsis criteria based on fever of 100.7, tachycardia, and tachypnea. CXR showed: "Patchy airspace opacities bilaterally, most pronounced at the right lung base, increased since the prior study, likely related to mild pulmonary edema versus pneumonia." WBC 10.2 Lactic acid 1.2 Plan: Start Patient on Vanc (pharmacy to dose), Zosyn, and Levaquin Started on Solumedrol 40 Q12 started on PRN tylenol for fever Bcx pending sputum cx pending viral panel pending continue to monitor Qualifiers: Sepsis type: sepsis due to unspecified organism Qualified Code(s): A41.9 - Sepsis, unspecified organism (2) Pneumonia Current visit: Yes Status: Suspected Patient recently hospitalized in the last few weeks will treat for HCAP with coverage for possible MRSA or gram Negaitve PNA Plan: Start Patient on Vanc (pharmacy to dose), Zosyn, and Levaquin Started on Solumedrol 40 Q12 started on PRN tylenol for fever Bcx pending sputum cx pending viral panel pending continue to monitor Qualifiers: Pneumonia type: due to unspecified organism Laterality: right Lung location: lower lobe of lung Qualified Code(s): J18.1 - Lobar pneumonia, unspecified organism (3) Hypotension Current visit: No Status: Resolved patient developed hypotension during dialysis patient responded to fluid bolus BP now stable Plan: continue fluids PRN but careful to not fluid overload and patient already has pulmonary edema continue to monitor Qualifiers: Hypotension type: unspecified hypotension type Qualified Code(s): I95.9 - Hypotension, unspecified (4) Chest pain Current visit: Yes Status: Acute Patient complaining of chest pain initial trop 0.05 Patient with hx of ESRD so likely has chronically elevated trop. EKG did not show signs of ischemia Plan: trending troponins Qualifiers: Chest pain type: unspecified Qualified Code(s): R07.9 - Chest pain, unspecified (5) Elevated troponin Current visit: Yes Status: Acute Patient's inital trop 0.05 patient with hx of ESRD on dialysis hx of chronically elevated trop Plan: trend troponin continue to monitor (6) ESRD on dialysis Current visit: No Status: Chronic Pt with ESRD on dialysis MWF known to Dr. Bach Nephrology on board Plan: Nephro on board appreciate all recommendations did not receive full dialysis today. Nephro to re-evaluate tomorrow for any further dialysis needs (7) Presence of urostomy Current visit: No Status: Chronic Hx of Chronic urostomy Plan: continue to monitor (8) Ileostomy in place Current visit: No Status: Chronic Hx of Chronic Ileostomy Plan: continue to monitor (9) COPD (chronic obstructive pulmonary disease) Current visit: No Status: Chronic Pt with Hx of Asthma and COPD Pt on home dulera 100/5, duonebs Plan: Started on Duonebs, symbicort and steroids 40 Q12 continue to monitor Qualifiers: COPD type: emphysema Emphysema type: panlobular Qualified Code(s): J43.1 - Panlobular emphysema (10) Hypothyroid Current visit: No Status: Chronic Pt with hx of hypothyrodism Plan: checking TSH home synthroid dose set to restart tomorrow Qualifiers: Hypothyroidism type: unspecified Qualified Code(s): E03.9 - Hypothyroidism , unspecified (11) DVT prophylaxis Current visit: No Status: Acute Patient started on Sub Q heparin 5000 Q12H plan: continue sub Q Heparin History of Present Illness Chief complaint: Chest pain HPI: Ms. Parra is a 72 year old female c PmHx of atrial fibrillation, COPD, GERD, hypertension, ESRD on dialysis MWF, thyroid disease, urosteomy, clostomy who reports to the [facility] with 1 hour of left sharp non radiating chest pain she rates as 10/10. Patient denies diaphroesis. Patient reports SOB. In ED trop was 0.05. CXR showed "Patchy airspace opacities bilaterally, most pronounced at the right lung base, increased since the prior study, likely related to mild pulmonary edema versus pneumonia." Patient was sent to dialysis as today is her normal dialysis day. In dialysis patient became hypotensive to 76/41. Dialysis was stopped. Patient was given a 250mL bolus and her BP returned to 111/51. Patient was admitted to the ICU for further care after this episode of hypotension. Past Med Surg Social Fam HX - Past Medical History Medical history: asthma, atrial fibrillation, COPD, GERD, hypertension, renal disease, thyroid disease Psychiatric history: no psych history - Past Surgical History Surgical History: appendectomy, cholecystectomy, colostomy, hysterectomy, other - Social History Smoking Status: Current every day smoker Packs per day: 1/2 Smokeless Tobacco Status: No Alcohol use: none Drug use: none - Family History Mother Adopted: No Living Status: Hx Family Cardiac Disorders: Yes (PR/ Stroke) Hx Family Respiratory Disorders: No Hx Family Cancer: No Hx Family GI Disorders: No Hx Family Endocrine Disorder: No Hx Family Neuromuscular Disorders: No Hx Family Neurologic Disorders: No Hx Family HEENT Disorders: No Hx Family Autoimmune Disorders: No Father Adopted: No Living Status: Hx Family Cardiac Disorders: Yes (PR) Hx Family Respiratory Disorders: No Hx Family Cancer: No Hx Family GI Disorders: No Hx Family Endocrine Disorder: No Hx Family Neuromuscular Disorders: No Hx Family Neurologic Disorders: No Hx Family HEENT Disorders: No Hx Family Autoimmune Disorders: No Brother Living Status: Still Living Hx Family Cardiac Disorders: Yes Hx Family Respiratory Disorders: No Hx Family Endocrine Disorder: Yes Medications and Allergies Cholecalciferol (Vitamin D3) [Vitamin D3] 5,000 unit PO DAILY #0 09/19/15 [ History] Ranitidine HCl [Zantac] 150 mg PO HS 09/19/15 [History] Cyanocobalamin (B-12) [Vitamin B12] 1,000 mcg IM QMONTH 02/21/17 [History] Levothyroxine Sodium [Synthroid] 300 mcg PO DAILY 02/21/17 [History] Mometasone/Formoterol [Dulera 100 Mcg/5 Mcg Inhaler] 2 puff IH BID 02/21/17 [ History] Lidocaine/Prilocaine CREAM [[place]] 1 appl TP AD PRN 06/30/17 [History] Renal Vitamin [Renal Caps Softgel] 1 mg PO DAILY 06/30/17 [History] Acetaminophen [Tylenol] 650 mg PO Q6HR PRN #20 tab 07/10/17 [Rx] Menthol [[place]] 3.2 mg MM Q4H PRN 07/16/17 [History] Diltiazem CD (24hr) [Cardizem CD] 120 mg PO DAILY cap.er.24h 09/14/17 [Rx] GuaiFENesin ER [Mucinex] 600 mg PO BID 5 Days #10 tbbp.12hr 09/14/17 [Rx] Nicotine Patch [Nicoderm] 21 mg TD DAILY #30 patch.td24 09/14/17 [Rx] Calcium Acetate [Phos-LO] 667 mg PO TIDWM 10/17/17 [History] Amitriptyline [Elavil] 50 mg PO HS tablet 10/24/17 [Rx] Benzonatate [Tessalon] 100 mg PO TID PRN #90 capsule 10/24/17 [Rx] Calcitriol [Rocaltrol] 0.25 mcg PO DAILY capsule 10/24/17 [Rx] HYDROcodone/Acet 7.5/325 mg [[place] 7.5-325 mg] 1 tab PO Q6HR PRN #10 tablet [Rx] Ipratropium/Albuterol Neb [Duoneb] 3 ml IH [id number] inhsol 10/24/17 [Rx] Furosemide [Lasix] 20 mg PO DAILY 10/28/17 [History] Ferrous Sulfate 325 mg PO DAILY 11/14/17 [History] Gabapentin [Neurontin] 100 mg PO TID 11/14/17 [History] 3 Allergy/AdvReac Type Severity Reaction Status Date / Time codeine AdvReac Severe Vomiting Verified 03/06/17 15:22 naproxen [From Naprosyn] AdvReac Severe Vomiting Verified 03/06/17 15:22 All Systems: A 10-system review of systems was performed and is negative for pertinent findings except as documented above in the HPI. Physical Examination Vital Signs: Vital Signs, Last 4 Hours Temp Pulse Resp BP Pulse Ox 11/14/17 14:04 111/51 11/14/17 13:26 100.7 F H 110 16 96/41 93 11/14/17 13:20 99.4 F 20 76/41 11/14/17 12:15 80/49 11/14/17 11:59 99.4 F 20 85/50 11/14/17 11:49 99 F 18 104/82 General appearance: no acute distress Eyes: nonicteric ENT: oropharynx moist Neck: supple Effort: mildly labored Auscultation: bilateral: rales Cardiovascular: regular rate and rhythm Gastrointestinal: normoactive bowel sounds, other (Colostomy present) Integumentary: normal Extremities: no cyanosis normal mental status, non-focal exam Results - Laboratory Findings CBC and BMP: 11/14/17 10:30 11/14/17 10:30 PT/INR, D-dimer PT 16.2 Seconds (9.4-12.1) H 11/14/17 10:30 Abnormal lab findings: Abnormal lab results RBC 3.59 M/mcL (3.82-4.97) L 11/14/17 10:30 Hgb 10.9 g/dL (11.5-15.4) L D 11/14/17 10:30 Hct 33.7 % (35.3-44.9) L 11/14/17 10:30 RDW 16.2 % (11.5-14.5) H 11/14/17 10:30 Plt Count 111 K/mcL (140-400) L 11/14/17 10:30 Neutrophils # 9.2 K/mcL (1.6-8.9) H 11/14/17 10:30 PT 16.2 Seconds (9.4-12.1) H 11/14/17 10:30 Sodium 135 mEq/L (136-145) L 11/14/17 10:30 Chloride 88 mEq/L (98-107) L 11/14/17 10:30 BUN 30 mg/dL (8-23) H 11/14/17 10:30 Creatinine 7.31 mg/dL (0.60-1.20) H 11/14/17 10:30 Est GFR ( Amer) 7 (> 60) L 11/14/17 10:30 Est GFR (Non-Af Amer) 5 (> 60) L 11/14/17 10:30 BUN/Creatinine Ratio 4 (6-26) L 11/14/17 10:30 Calcium 7.9 mg/dL (8.6-10.3) L 11/14/17 10:30 Troponin I 0.05 ng/mL (< 0.04) H* 11/14/17 10:30 <Mauricio Duncan S - Last Filed: 11/14/17 21:16> Date of Encounter: 11/14/17 History of Present Illness HPI: Ms. Parra is a 72 year old female All Systems: A 10-system review of systems was performed and is negative for pertinent findings except as documented above in the HPI. Physical Examination Vital Signs: Vital Signs, Last 4 Hours Temp Pulse Resp BP Pulse Ox 11/14/17 14:04 111/51 11/14/17 13:26 100.7 F H 110 16 96/41 93 11/14/17 13:20 99.4 F 20 76/41 11/14/17 12:15 80/49 Results - Laboratory Findings CBC and BMP: 11/14/17 10:30 11/14/17 10:30 PT/INR, D-dimer PT 16.2 Seconds (9.4-12.1) H 11/14/17 10:30 Abnormal lab findings: Abnormal lab results RBC 3.59 M/mcL (3.82-4.97) L 11/14/17 10:30 Hgb 10.9 g/dL (11.5-15.4) L D 11/14/17 10:30 Hct 33.7 % (35.3-44.9) L 11/14/17 10:30 RDW 16.2 % (11.5-14.5) H 11/14/17 10:30 Plt Count 111 K/mcL (140-400) L 11/14/17 10:30 Neutrophils # 9.2 K/mcL (1.6-8.9) H 11/14/17 10:30 PT 16.2 Seconds (9.4-12.1) H 11/14/17 10:30 Sodium 135 mEq/L (136-145) L 11/14/17 10:30 Chloride 88 mEq/L (98-107) L 11/14/17 10:30 BUN 30 mg/dL (8-23) H 11/14/17 10:30 Creatinine 7.31 mg/dL (0.60-1.20) H 11/14/17 10:30 Est GFR ( Amer) 7 (> 60) L 11/14/17 10:30 Est GFR (Non-Af Amer) 5 (> 60) L 11/14/17 10:30 BUN/Creatinine Ratio 4 (6-26) L 11/14/17 10:30 Calcium 7.9 mg/dL (8.6-10.3) L 11/14/17 10:30 Troponin I 0.05 ng/mL (< 0.04) H* 11/14/17 10:30 - Attending Attestation I saw the patient with the resident agree with History and Physical exam findings. 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 Musculo skeletal / skin issues : No acute issues Disposition : Critically ill Code status: Full Code Family/POA: Not lolita the family yet . Spent 35 minutes of critical care time in maintaining vital organ function and preventing further decline
[2017-11-14] MEDS ORDERED: Acetaminophen 325 MG TABLET PO PRN (15:15)
[2017-11-14] MEDS: Acetaminophen 325 MG TABLET PO PRN (15:26)
[2017-11-14] MEDS: Piperacillin/Tazobactam 3.375 GM/200 ML BAG IVPB SCH (15:47)
[2017-11-14] MEDS: Ipratropium/Albuterol Neb 3 ML IH SCH ×2 (16:03→20:52)
[2017-11-14 16:19] LABS: VBG Ionized Calcium 0.83 mmol/L (1.15-1.35); VBG PH 7.39 pH Units (7.32-7.42)
[2017-11-14 16:44] LABS: Magnesium 1.3 mg/dL (1.6-2.6)
[2017-11-14 16:46] LABS: Hepatitis B Surface Antigen Nonreactive (Nonreactive)
[2017-11-14 16:55] LABS: Hepatitis B Surface Antibody 358.05 mIU/mL
[2017-11-14] MEDS: *HR* Heparin 5,000 UNIT/ML VIAL SQ SCH (17:19)
[2017-11-14] MEDS: MethylPREDNISolone 40 MG/ML VIAL IVP SCH (17:19)
[2017-11-14] MEDS ORDERED: Amiodarone Premix 150 MG/100 ML BAG IVPB ONE ×2 (19:51→19:58)
[2017-11-14] MEDS ORDERED: Amiodarone Premix 360 MG/200 ML BAG IVC ONE (20:00)
[2017-11-14] MEDS: Budesonide/Formoterol 80/4.5 MDI IH SCH (20:52)
[2017-11-14] MEDS: *HR* Morphine 2 MG/ML SYRINGE IVP PRN (22:45)
[2017-11-15] MEDS: Ipratropium/Albuterol Neb 3 ML IH SCH ×7 (00:22→23:53)
[2017-11-15] MEDS ORDERED: Amiodarone Premix 360 MG/200 ML BAG IVC SCH (02:00)
[2017-11-15] MEDS ORDERED: Albumin 25% 25gram/100mL 25 GM/100 ML IV.SOLN IVPB ONE ×2 (04:37→22:00)
[2017-11-15] MEDS ORDERED: Albumin 25% 25gram/100mL 25 GM/100 ML IV.SOLN ONE (04:48)
[2017-11-15] MEDS: MethylPREDNISolone 40 MG/ML VIAL IVP SCH ×2 (04:50→17:23)
[2017-11-15] MEDS: Piperacillin/Tazobactam 3.375 GM/200 ML BAG IVPB SCH ×2 (04:52→15:36)
[2017-11-15] MEDS: *HR* Morphine 2 MG/ML SYRINGE IVP PRN ×5 (04:54→23:31)
[2017-11-15 05:17] LABS: Hematocrit 27.5 % (35.3-44.9); Mean Corpuscular HGB Conc 31.6 g/dL (31.6-35.5); Mean Corpuscular Hemoglobin 29.7 pg (28.0-33.3); Mean Corpuscular Volume 93.9 fL (83.0-100.0); Mean Platelet Volume 12.1 fL (9.4-12.4); Platelet Count 101 K/mcL (140-400); Red Blood Count 2.93 M/mcL (3.82-4.97); Red Cell Distribution Width 16.1 % (11.5-14.5)
[2017-11-15 05:20] LABS: Hemoglobin 8.7 g/dL (11.5-15.4)
[2017-11-15 05:39] LABS: Calcium 8.2 mg/dL (8.6-10.3); Potassium 3.7 mEq/L (3.5-5.1)
[2017-11-15] MEDS: *HR* Heparin 5,000 UNIT/ML VIAL SQ SCH ×2 (06:43→17:23)
[2017-11-15] MEDS: Budesonide/Formoterol 80/4.5 MDI IH SCH ×2 (07:34→19:47)
[2017-11-15] MEDS: Acetaminophen 325 MG TABLET PO PRN (08:34)
[2017-11-15 08:49] LABS: Magnesium 2.1 mg/dL (1.6-2.6); Phosphorous 12.1 mg/dL (2.7-4.5)
--- NOTE | 2017-11-15 09:04 | Pulmonology Progress Note ---
<Neeraj Lowery - Last Filed: 11/15/17 09:01> Date of Encounter: 11/15/17 Time of Encounter: 09:02 Assessment and Plan (1) Acute respiratory failure with hypoxia Current Visit: No Status: Acute acute respiratory failure 2/2 to COPD exacerbation 2/2 PNA and CHF Patient went into a fib c RVR overnight Patient required bi PAP overnight which will also help with pulmonary edema now on NC Plan: continue COPD txt continue PNA txt continue a fib txt see individual sections for plans (2) Sepsis Current Visit: Yes Status: Acute Patient met sepsis criteria based on fever of 100.7, tachycardia, and tachypnea. CXR showed: "Patchy airspace opacities bilaterally, most pronounced at the right lung base, increased since the prior study, likely related to mild pulmonary edema versus pneumonia." WBC 10.2 Lactic acid 1.2 Start Patient on Vanc (pharmacy to dose), Zosyn, and Levaquin Started on Solumedrol 40 Q12 started on PRN tylenol for fever Bcx pending sputum cx pending viral panel pending Plan: continue abx continue to monitor Qualifiers: Sepsis type: sepsis due to unspecified organism Qualified Code(s): A41.9 - Sepsis, unspecified organism (3) Pneumonia Current Visit: Yes Status: Suspected Patient recently hospitalized in the last few weeks will treat for HCAP with coverage for possible MRSA or gram Negaitve PNA Start Patient on Vanc (pharmacy to dose), Zosyn, and Levaquin Started on Solumedrol 40 Q12 started on PRN tylenol for fever Bcx pending sputum cx pending viral panel pending Plan: continue abx continue to monitor Qualifiers: Pneumonia type: due to unspecified organism Laterality: right Lung location: lower lobe of lung Qualified Code(s): J18.1 - Lobar pneumonia, unspecified organism (4) Atrial fibrillation with rapid ventricular response Current Visit: No Status: Acute Patient's cardizem held yesterday due to hypotension. Patient went into a fib with RVR patient started on amiodarone drip. Plan: Stop amiodarone drip. Patient restarted on Cardizem but starting on 30mg Q6H rather than her long acting dose in case patient becomes hypotensive again. (5) Hypotension Current Visit: No Status: Resolved patient developed hypotension during dialysis patient responded to fluid bolus BP now stable Plan: continue colloid fluids PRN but careful to not fluid overload and patient already has pulmonary edema continue to monitor Qualifiers: Hypotension type: unspecified hypotension type Qualified Code(s): I95.9 - Hypotension, unspecified (6) Chest pain Current Visit: Yes Status: Acute Patient complaining of chest pain initial trop 0.05 subsequent trops 0.07, 0.04 Patient with hx of ESRD so likely has chronically elevated trop. EKG did not show signs of ischemia Plan: contnue to monitor patient's chest pain seems pleuritic in nature. trops stable. Qualifiers: Chest pain type: unspecified Qualified Code(s): R07.9 - Chest pain, unspecified (7) Elevated troponin Current Visit: Yes Status: Chronic Patient's inital trop 0.05 patient with hx of ESRD on dialysis hx of chronically elevated trop trops 0.05, 0.07, 0.04 Plan: continue to monitor (8) ESRD on dialysis Current Visit: No Status: Chronic Pt with ESRD on dialysis MWF known to Dr. Bach Nephrology on board Plan: Nephro on board appreciate all recommendations did not receive full dialysis yesterday today. Nephro to re-evaluate today per their note for any further dialysis needs (9) Presence of urostomy Current Visit: No Status: Chronic Hx of Chronic urostomy Plan: continue to monitor (10) Ileostomy in place Current Visit: No Status: Chronic Hx of Chronic Ileostomy Plan: continue to monitor (11) COPD (chronic obstructive pulmonary disease) Current Visit: No Status: Chronic Pt with Hx of Asthma and COPD Pt on home dulera 100/5, duonebs Started on Duonebs, symbicort and steroids 40 Q12 Plan: continue dounebs, symbicort, and steroids continue to monitor Qualifiers: COPD type: emphysema Emphysema type: panlobular Qualified Code(s): J43.1 - Panlobular emphysema (12) Hypothyroid Current Visit: No Status: Chronic Pt with hx of hypothyrodism TSH 3.75 Plan: coninue home synthroid Qualifiers: Hypothyroidism type: unspecified Qualified Code(s): E03.9 - Hypothyroidism , unspecified (13) DVT prophylaxis Current Visit: No Status: Acute Patient started on Sub Q heparin 5000 Q12H plan: continue sub Q Heparin Subjective Principal diagnosis: hypoxic respiratiory failure 2/2 COPD exacerbation 2/2 PNA Interval history: Patient reports continued pleuritic chest pain. Patient required amiodarone drip last night as patient went into a fib with RVR. Drip stopped and patient started on home cardiazem which was held previously due to hypotension. Objective PUL Vital signs: Last Vital Signs Temp 97.1 F L 11/15/17 08:20 Pulse 80 11/15/17 08:10 Resp 18 11/15/17 08:10 BP 100/87 11/15/17 08:10 Pulse Ox 100 11/15/17 08:10 General appearance: no acute distress Eyes: nonicteric ENT: oropharynx moist Neck: supple Effort: mildly labored Auscultation: bilateral: diminished breath sounds, rales, other (upper airway noises) Cardiovascular: regular rate and rhythm Gastrointestinal: normoactive bowel sounds Integumentary: normal Extremities: no cyanosis normal mental status, non-focal exam Results - Laboratory Findings CBC and BMP: 11/15/17 05:00 11/15/17 05:00 PT/INR, D-dimer PT 16.2 Seconds (9.4-12.1) H 11/14/17 10:30 Abnormal lab findings: Abnormal lab results RBC 2.93 M/mcL (3.82-4.97) L 11/15/17 05:00 Hgb 8.7 g/dL (11.5-15.4) L D 11/15/17 05:00 Hct 27.5 % (35.3-44.9) L 11/15/17 05:00 RDW 16.1 % (11.5-14.5) H 11/15/17 05:00 Plt Count 101 K/mcL (140-400) L 11/15/17 05:00 Neutrophils # 9.2 K/mcL (1.6-8.9) H 11/14/17 10:30 PT 16.2 Seconds (9.4-12.1) H 11/14/17 10:30 Sodium 135 mEq/L (136-145) L 11/15/17 05:00 Chloride 89 mEq/L (98-107) L 11/15/17 05:00 BUN 45 mg/dL (8-23) H 11/15/17 05:00 Creatinine 8.53 mg/dL (0.60-1.20) H 11/15/17 05:00 Est GFR ( Amer) 6 (> 60) L 11/15/17 05:00 Est GFR (Non-Af Amer) 5 (> 60) L 11/15/17 05:00 BUN/Creatinine Ratio 5 (6-26) L 11/15/17 05:00 Calcium 8.2 mg/dL (8.6-10.3) L 11/15/17 05:00 Venous Ioniz Calcium 0.83 mmol/L (1.15-1.35) L 11/14/17 16:14 Phosphorus 12.1 mg/dL (2.7-4.5) H 11/15/17 05:00 Troponin I 0.04 ng/mL (< 0.04) H* 11/14/17 22:40 - Clinical Findings Intake & Output: Intake & Output 11/14/17 11/15/17 11/15/17 23:59 07:59 15:59 Intake Total 300 / 300 Output Total 200 / 200 50 / 50 0 / 0 Balance 100 / 100 -50 / -50 0 / 0 Weight 52.6 kg Consult Discharge Plan - Plan Referrals: Na Johansen, DECORATING INSTRUCTOR [Primary Care Provider] - <Mauricio Duncan - Last Filed: 11/15/17 22:52> Date of Encounter: 11/15/17 Objective PUL Vital signs: Last Vital Signs Temp 98.2 F 11/15/17 19:25 Pulse 77 11/15/17 20:00 Resp 12 11/15/17 20:00 BP 122/85 11/15/17 20:00 Pulse Ox 98 11/15/17 20:00 Results - Laboratory Findings CBC and BMP: 11/15/17 05:00 11/15/17 05:00 PT/INR, D-dimer PT 16.2 Seconds (9.4-12.1) H 11/14/17 10:30 Abnormal lab findings: Abnormal lab results RBC 2.93 M/mcL (3.82-4.97) L 11/15/17 05:00 Hgb 8.7 g/dL (11.5-15.4) L D 11/15/17 05:00 Hct 27.5 % (35.3-44.9) L 11/15/17 05:00 RDW 16.1 % (11.5-14.5) H 11/15/17 05:00 Plt Count 101 K/mcL (140-400) L 11/15/17 05:00 Neutrophils # 9.2 K/mcL (1.6-8.9) H 11/14/17 10:30 PT 16.2 Seconds (9.4-12.1) H 11/14/17 10:30 Sodium 135 mEq/L (136-145) L 11/15/17 05:00 Chloride 89 mEq/L (98-107) L 11/15/17 05:00 BUN 45 mg/dL (8-23) H 11/15/17 05:00 Creatinine 8.53 mg/dL (0.60-1.20) H 11/15/17 05:00 Est GFR ( Amer) 6 (> 60) L 11/15/17 05:00 Est GFR (Non-Af Amer) 5 (> 60) L 11/15/17 05:00 BUN/Creatinine Ratio 5 (6-26) L 11/15/17 05:00 Calcium 8.2 mg/dL (8.6-10.3) L 11/15/17 05:00 Venous Ioniz Calcium 0.88 mmol/L (1.15-1.35) L 11/15/17 09:57 Phosphorus 12.1 mg/dL (2.7-4.5) H 11/15/17 05:00 Troponin I 0.04 ng/mL (< 0.04) H* 11/14/17 22:40 - Clinical Findings Intake & Output: Intake & Output 11/15/17 11/15/17 11/15/17 07:59 15:59 23:59 Intake Total 300 / 300 200 / 200 Output Total 50 / 50 10 / 10 400 / 400 Balance 250 / 250 190 / 190 -400 / -400 Weight 52.6 kg 52.6 kg - Attending Attestation I saw the patient with the resident agree with History and Physical exam findings. 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 Musculo skeletal / skin issues : No acute issues Disposition : Critically ill high chance of circulatory failure or respiratory failure Code status: Full Code Family/POA: Not lolita the family yet .
[2017-11-15] MEDS ORDERED: 0.9 % Sodium Chloride 2,000 ML ONE (09:59)
[2017-11-15 10:01] LABS: VBG Ionized Calcium 0.88 mmol/L (1.15-1.35); VBG PH 7.38 pH Units (7.32-7.42)
[2017-11-15] MEDS ORDERED: 0.9 % Sodium Chloride 250 ML IVC PRN (10:11)
[2017-11-15] MEDS: Famotidine 20 MG TABLET PO SCH ×2 (11:25→19:25)
--- NOTE | 2017-11-15 12:04 | Nephrology Progress Note ---
Date of Encounter: 11/15/17 Time of Encounter: 12:02 - Assessment and Plan (1) ESRD (end stage renal disease) on dialysis Current Visit: No Status: Chronic HD MWF. Renal vitamins. Renal dose medications. Renal diet. Additional dialysis and ultrafiltration as needed. We will perform dialysis today as she could not tolerate her dialysis on Friday. No UF secondary to hypotension. (2) Chest pain Current Visit: Yes Status: Acute This seems to be much better and at this time since be related to her pneumonia. Qualifiers: Chest pain type: unspecified Qualified Code(s): R07.9 - Chest pain, unspecified (3) Sepsis Current Visit: Yes Status: Acute Secondary to pneumonia. Management per primary team. Qualifiers: Sepsis type: sepsis due to unspecified organism Qualified Code(s): A41.9 - Sepsis, unspecified organism (4) Pneumonia Current Visit: Yes Status: Suspected Her pneumonia which is the cause of her sepsis seems to be improving with anabiotic use. Being managed by primary team. Qualifiers: Pneumonia type: due to unspecified organism Laterality: right Lung location: lower lobe of lung Qualified Code(s): J18.1 - Lobar pneumonia, unspecified organism (5) Anemia Current Visit: No Status: Chronic Monitor hemoglobin. No active bleeding identified. Qualifiers: Anemia type: unspecified type Qualified Code(s): D64.9 - Anemia, unspecified (6) Hypotension Current Visit: No Status: Acute Likely inaccurate readings. She has a 2+ radial pulse and is asymptomatic. Qualifiers: Hypotension type: unspecified hypotension type Qualified Code(s): I95.9 - Hypotension, unspecified Subjective Principal diagnosis: hypoxic respiratiory failure 2/2 COPD exacerbation 2/2 PNA Interval history: Patient was seen. She is in the ICU. She is not intubated. She is on nasal cannula. She states she still has some dyspnea and chest pain, but both of these are much better as compared to yesterday. She denies lightheadedness or dizziness. All of her other symptoms seem to be stable. Objective - Vital Signs Vital signs: Vital Signs Temp Pulse Resp BP Pulse Ox 11/15/17 11:19 77 20 155/76 96 11/15/17 11:18 97.2 F L 11/15/17 11:04 18 100 11/15/17 10:18 77 18 110/51 100 11/15/17 09:00 80 18 94/62 100 11/15/17 08:20 97.1 F L 11/15/17 08:10 97.1 F L 80 18 100/87 100 11/15/17 07:35 16 100 11/15/17 07:00 78 18 89/32 100 11/15/17 06:00 76 16 87/38 100 11/15/17 05:17 97.6 F 11/15/17 05:00 79 20 80/38 100 11/15/17 04:25 20 100 11/15/17 04:00 75 14 80/36 100 11/15/17 03:00 72 28 76/35 100 11/15/17 02:00 74 17 84/35 96 11/15/17 01:07 97.8 F 11/15/17 01:00 75 15 83/33 98 11/15/17 00:45 23 83/39 100 11/15/17 00:24 18 98 11/15/17 00:00 82 18 83/39 100 11/14/17 23:00 128 14 79/49 98 11/14/17 22:00 133 18 89/64 99 11/14/17 21:00 131 22 87/47 94 11/14/17 20:52 20 95 11/14/17 20:07 98.2 F 11/14/17 20:00 130 24 71/50 95 11/14/17 19:00 82 24 92/37 95 11/14/17 18:00 84 18 86/31 99 11/14/17 17:00 98.9 F 94 20 87/36 97 11/14/17 16:10 101 20 102/40 99 11/14/17 16:03 28 95 Intake and Output 11/14/17 11/15/17 11/15/17 23:59 07:59 15:59 Intake Total 300 / 300 Output Total 200 / 200 50 / 50 10 / 10 Balance 100 / 100 -50 / -50 -10 / -10 Intake: IV Fluids 300 / 300 Flexbumin 25 gm In 100 ml @ 60 100 / 100 mls/hr IVPB ONCE ONE Rx#: [id number] Zosyn Premix 3.375 GM/200 ML 3. 200 / 200 375 gm In 200 ml @ 50 mls/hr IVPB Q12H MARIANO Rx#:[id number] Output: Stool 150 / 150 0 / 0 Urostomy 50 / 50 10 / 10 Catheter 50 / 50 Other: Meal Breakfast Percent of Meal Consumed 100% Weight 52.6 kg Patient Weight 11/15/17 23:59 Weight 52.6 kg - General Appearance General appearance: Present: well-developed, chronically ill, frail EENT: Present: ATNC Neck: Present: supple Respiratory: Present: course breath sounds, rhonchi Cardiology: Present: no edema, regular rate, regular rhythm Additional Comments: Sinus rhythm on telemetry. Integumentary: Present: warm and dry Neurologic: Present: alert and oriented x3 Musculoskeletal: Present: no cyanosis Psychiatric: Present: mood/affect appropriate - Lab 11/15/17 05:00 11/15/17 05:00 Most recent lab results Calcium 8.2 mg/dL (8.6-10.3) L 11/15/17 05:00 Phosphorus 12.1 mg/dL (2.7-4.5) H 11/15/17 05:00 Magnesium 2.1 mg/dL (1.6-2.6) 11/15/17 05:00 Consult Discharge Plan - Plan Referrals: Na Johansen, [employer] [Primary Care Provider] -
[2017-11-15] MEDS ORDERED: Vancomycin 500 MG in D5% in Water (Mini-Bag+) 100 ML IVPB ONE (21:00)
[2017-11-15] MEDS ORDERED: Vancomycin 500 MG in 0.9 % Sodium Chloride Mini Bag 100 ML IVPB ONE (23:00)
[2017-11-16] MEDS: *HR* Morphine 2 MG/ML SYRINGE IVP PRN ×5 (03:19→23:22)
[2017-11-16] MEDS: Piperacillin/Tazobactam 3.375 GM/200 ML BAG IVPB SCH ×2 (03:20→17:40)
[2017-11-16 03:31] LABS: Acinetobacter baumannii by PCR Not Detected (Not Detect); Candida albicans by PCR Not Detected (Not Detect); Candida glabrata by PCR Not Detected (Not Detect); Candida krusei by PCR Not Detected (Not Detect); Candida parapsilosis by PCR Not Detected (Not Detect); Candida tropicalis by PCR Not Detected (Not Detect); Enterococcus by PCR Not Detected (Not Detect); Escherichia coli by PCR Not Detected (Not Detect); Klebsiella oxytoca by PCR Not Detected (Not Detect); Klebsiella pneumoniae by PCR Not Detected (Not Detect); Pseudomonas aeruginosa by PCR Not Detected (Not Detect); Serratia marcescens by PCR Not Detected (Not Detect); Staphylococcus aureus by PCR Not Detected (Not Detect); Streptococcus agalactiae(B)PCR Not Detected (Not Detect); Streptococcus by PCR Not Detected (Not Detect); Streptococcus pneumoniae PCR Not Detected (Not Detect); Streptococcus pyogenes (A) PCR Not Detected (Not Detect); blaKPC Carbapenem-Resist Gene Not Detected (Not Detect); mecA Methicillin-Resist Gene Not Detected (Not Detect); vanA/B Vancomycin-Resist Genes Not Detected (Not Detect)
[2017-11-16 03:39] LABS: VBG Ionized Calcium 1.06 mmol/L (1.15-1.35); VBG PH 7.34 pH Units (7.32-7.42)
[2017-11-16 03:41] LABS: Hemoglobin 7.7 g/dL (11.5-15.4); Mean Corpuscular Hemoglobin 29.6 pg (28.0-33.3); Red Blood Count 2.6 M/mcL (3.82-4.97); Red Cell Distribution Width 15.9 % (11.5-14.5)
[2017-11-16 03:43] LABS: Hematocrit 24.4 % (35.3-44.9); Mean Corpuscular HGB Conc 31.6 g/dL (31.6-35.5); Mean Corpuscular Volume 93.8 fL (83.0-100.0); Mean Platelet Volume 11.4 fL (9.4-12.4)
--- NOTE | 2017-11-16 03:47 | Event Note ---
Date of Encounter: 11/16/17 Time of Encounter: 03:43 Notified of yeast in peripheral blood in 1 set of blood cx Unsure whether this is real vs. skin contaminant However, clinically, she is improving. BP good. Not clinically correlating with fungemia. However, will perform 2 sets of fungal isolator blood cx in the off chance she truly has fungemia Further management pending day physician. If her clinical condition changes and declines, would start empiric ecchinocandins.
[2017-11-16 03:55] LABS: Calcium 8.4 mg/dL (8.6-10.3); Magnesium 1.9 mg/dL (1.6-2.6); Phosphorous 6.3 mg/dL (2.7-4.5)
[2017-11-16] MEDS: Ipratropium/Albuterol Neb 3 ML IH SCH ×6 (04:56→23:59)
[2017-11-16] MEDS: Acetaminophen 325 MG TABLET PO PRN (06:37)
[2017-11-16] MEDS: *HR* Heparin 5,000 UNIT/ML VIAL SQ SCH ×2 (06:37→19:19)
[2017-11-16] MEDS: MethylPREDNISolone 40 MG/ML VIAL IVP SCH ×2 (06:37→17:07)
[2017-11-16] MEDS: Famotidine 20 MG TABLET PO SCH (07:42)
[2017-11-16] MEDS: Budesonide/Formoterol 80/4.5 MDI IH SCH ×2 (07:50→20:13)
--- NOTE | 2017-11-16 08:13 | Pulmonology Progress Note ---
Date of Encounter: 11/16/17 Time of Encounter: 08:00 Assessment and Plan (1) Acute respiratory failure with hypoxia Current Visit: No Status: Acute secondary to health care associated pneumonia , fluid overload , COPD exacerbation patient responded to treatment well she is off oxygen . (2) Sepsis Current Visit: Yes Status: Acute Patient sepsis resolved to continue broad spectrum antibiotics , patient blood culture growing yeast species but the serum PCR for davide albicans or non - albicans species is negative , will continue IV fluconazole will repeat blood cultures . If she has continued fungal bactremia will need the Intravascular devices should be removed , she will need an ECHO Qualifiers: Qualified Code(s): A41.9 - Sepsis, unspecified organism (3) Pneumonia Current Visit: Yes Status: Suspected suspected gram negative pneumonia will continue broad spectrum antibiotics Qualifiers: Pneumonia type: due to unspecified organism Laterality: right Lung location: lower lobe of lung Qualified Code(s): J18.1 - Lobar pneumonia, unspecified organism (4) COPD (chronic obstructive pulmonary disease) Current Visit: No Status: Chronic To continue bronchodilators and steroids . Qualifiers: COPD type: emphysema Emphysema type: panlobular Qualified Code(s): J43.1 - Panlobular emphysema (5) ESRD (end stage renal disease) on dialysis Current Visit: No Status: Chronic (6) Atrial fibrillation Current Visit: No Status: Chronic Dialysis according to Nephrology Qualifiers: Atrial fibrillation type: paroxysmal Qualified Code(s): I48.0 - Paroxysmal atrial fibrillation Subjective Principal diagnosis: hypoxic respiratiory failure 2/2 COPD exacerbation 2/2 PNA Interval history: Patient is off oxygen breathing is lot better , has that on and off chest pain on coughing ,denies any other symptoms Objective PUL Vital signs: Last Vital Signs Temp 98 F 11/16/17 00:10 Pulse 80 11/16/17 07:57 Resp 26 11/16/17 07:00 BP 161/84 11/16/17 07:00 Pulse Ox 97 11/16/17 07:00 Auscultation: bilateral: wheezes (scattered ), other (scattered crackles ) Gastrointestinal: other (urostomy bag ) Results - Laboratory Findings CBC and BMP: 11/16/17 03:20 11/16/17 03:20 PT/INR, D-dimer PT 16.2 Seconds (9.4-12.1) H 11/14/17 10:30 Abnormal lab findings: Abnormal lab results WBC 3.9 K/mcL (4.3-11.1) L 11/16/17 03:20 RBC 2.60 M/mcL (3.82-4.97) L 11/16/17 03:20 Hgb 7.7 g/dL (11.5-15.4) L 11/16/17 03:20 Hct 24.4 % (35.3-44.9) L 11/16/17 03:20 RDW 15.9 % (11.5-14.5) H 11/16/17 03:20 Plt Count 91 K/mcL (140-400) L 11/16/17 03:20 Neutrophils # 9.2 K/mcL (1.6-8.9) H 11/14/17 10:30 PT 16.2 Seconds (9.4-12.1) H 11/14/17 10:30 BUN 33 mg/dL (8-23) H 11/16/17 03:20 Creatinine 5.34 mg/dL (0.60-1.20) H 11/16/17 03:20 Est GFR ( Amer) 10 (> 60) L 11/16/17 03:20 Est GFR (Non-Af Amer) 8 (> 60) L 11/16/17 03:20 Glucose 152 mg/dL (70-105) H 11/16/17 03:20 Calcium 8.4 mg/dL (8.6-10.3) L 11/16/17 03:20 Venous Ioniz Calcium 1.06 mmol/L (1.15-1.35) L 11/16/17 03:36 Phosphorus 6.3 mg/dL (2.7-4.5) H 11/16/17 03:20 Troponin I 0.04 ng/mL (< 0.04) H* 11/14/17 22:40 - Clinical Findings Intake & Output: Intake & Output 11/15/17 11/16/17 11/16/17 23:59 07:59 15:59 Intake Total 200 / 200 120 / 120 Output Total 400 / 400 Balance -200 / -200 120 / 120 - VTE Documentation of Mechanical Device: Intermittent pneumatic compression device Consult Discharge Plan - Plan Referrals: Na Johansen, [employer] [Primary Care Provider] -
[2017-11-16] MEDS: Fluconazole 100 MG/50 ML 100 MG/50 ML BAG IVPB SCH (09:08)
--- NOTE | 2017-11-16 11:56 | Nephrology Progress Note ---
Date of Encounter: 11/16/17 Time of Encounter: 11:55 - Assessment and Plan (1) ESRD (end stage renal disease) on dialysis Current Visit: No Status: Chronic HD MWF. Renal vitamins. Renal dose medications. Renal diet. Additional dialysis and ultrafiltration as needed. . (2) Chest pain Current Visit: Yes Status: Acute This seems to be much better and at this time seems to be related to her pneumonia. Qualifiers: Chest pain type: unspecified Qualified Code(s): R07.9 - Chest pain, unspecified (3) Sepsis Current Visit: Yes Status: Acute Secondary to pneumonia. Management per primary team. Improving. Qualifiers: Sepsis type: sepsis due to unspecified organism Qualified Code(s): A41.9 - Sepsis, unspecified organism (4) Pneumonia Current Visit: Yes Status: Suspected Her pneumonia which is the cause of her sepsis seems to be improving with anabiotic use. Being managed by primary team. Qualifiers: Pneumonia type: due to unspecified organism Laterality: right Lung location: lower lobe of lung Qualified Code(s): J18.1 - Lobar pneumonia, unspecified organism (5) Anemia Current Visit: No Status: Chronic Monitor hemoglobin. No active bleeding identified. Qualifiers: Anemia type: unspecified type Qualified Code(s): D64.9 - Anemia, unspecified (6) Hypotension Current Visit: No Status: Acute Likely inaccurate readings. She has a 2+ radial pulse and is asymptomatic. Blood pressure readings today are better. Qualifiers: Hypotension type: unspecified hypotension type Qualified Code(s): I95.9 - Hypotension, unspecified Subjective Principal diagnosis: hypoxic respiratiory failure 2/2 COPD exacerbation 2/2 PNA Interval history: Patient was seen. She is in the ICU. She is not intubated. She is on room air. She states she still has some dyspnea and chest pain, but both of these are much better as compared to yesterday. She denies lightheadedness or dizziness. All of her other symptoms seem to be stable. Objective - Vital Signs Vital signs: Vital Signs Temp Pulse Resp BP Pulse Ox 11/16/17 11:20 97.8 F 76 17 169/60 94 11/16/17 09:00 79 14 138/67 90 11/16/17 08:00 97.2 F L 81 12 177/58 99 11/16/17 07:57 80 11/16/17 07:00 77 26 161/84 97 11/16/17 06:00 78 24 145/60 92 11/16/17 05:00 79 18 107/86 98 11/16/17 04:56 18 98 11/16/17 04:00 80 13 151/58 97 11/16/17 03:00 77 12 152/48 97 11/16/17 02:00 86 15 151/46 92 11/16/17 01:00 133 20 157/75 95 11/16/17 00:10 98 F 11/16/17 00:00 124 20 143/75 95 11/15/17 23:54 20 95 11/15/17 23:42 130 11/15/17 23:00 128 14 142/92 100 11/15/17 22:00 81 12 157/42 98 11/15/17 21:00 68 12 182/32 98 11/15/17 20:00 77 12 122/85 98 11/15/17 19:47 18 96 11/15/17 19:30 82 14 120/55 95 11/15/17 19:25 98.2 F 11/15/17 18:00 117 18 150/95 100 11/15/17 17:45 98.6 F 11 141/80 11/15/17 17:30 147/65 11/15/17 17:15 155/69 11/15/17 17:00 75 18 159/94 100 11/15/17 16:45 148/76 11/15/17 16:15 148/76 11/15/17 16:00 96.8 F L 75 18 159/79 100 11/15/17 15:45 163/79 11/15/17 15:30 166/75 11/15/17 15:15 157/69 11/15/17 15:00 71 18 153/72 100 11/15/17 14:45 147/77 11/15/17 14:30 96.8 F L 12 137/78 11/15/17 14:00 79 20 148/63 100 11/15/17 13:00 80 20 177/81 100 11/15/17 12:00 97.2 F L 79 20 160/65 100 Intake and Output 11/15/17 11/16/17 11/16/17 23:59 07:59 15:59 Intake Total 200 / 200 120 / 120 0 / 0 Output Total 400 / 400 0 / 0 Balance -200 / -200 120 / 120 0 / 0 Intake: IV Fluids 200 / 200 Zosyn Premix 3.375 GM/200 ML 3. 200 / 200 375 gm In 200 ml @ 50 mls/hr IVPB Q12H [facility]IANO Rx#:[id number] Oral 120 / 120 0 / 0 Output: Urine 0 / 0 0 / 0 Stool 400 / 400 Total Dialysis (HD) Output 0 / 0 Other: Meal Dinner Percent of Meal Consumed 100% Stool Size Small Stool Consistency formed Stool Color Brown Hemodialysis Net Fluid Removed 0 (mL) - General Appearance General appearance: Present: well-developed, chronically ill, frail EENT: Present: ATNC Neck: Present: supple Neurologic: Present: alert and oriented x3 Psychiatric: Present: mood/affect appropriate, cooperative - Lab 11/16/17 03:20 11/16/17 03:20 Most recent lab results Calcium 8.4 mg/dL (8.6-10.3) L 11/16/17 03:20 Phosphorus 6.3 mg/dL (2.7-4.5) H 11/16/17 03:20 Magnesium 1.9 mg/dL (1.6-2.6) 11/16/17 03:20 - VTE Documentation of Mechanical Device: Intermittent pneumatic compression device Consult Discharge Plan - Plan Referrals: Na Johansen, TYLER [Primary Care Provider] -
[2017-11-16] MEDS ORDERED: Levofloxacin 750 MG/150 ML 750 MG/150 ML BAG IVPB SCH (12:00)
[2017-11-16] MEDS: Ondansetron 4 MG/2 ML VIAL IVP PRN ×2 (15:33→21:51)
[2017-11-17] MEDS: Ipratropium/Albuterol Neb 3 ML IH SCH ×6 (03:53→23:25)
[2017-11-17] MEDS: Piperacillin/Tazobactam 3.375 GM/200 ML BAG IVPB SCH ×2 (04:22→16:27)
[2017-11-17] MEDS: *HR* Morphine 2 MG/ML SYRINGE IVP PRN (04:22)
[2017-11-17] MEDS: MethylPREDNISolone 40 MG/ML VIAL IVP SCH (04:23)
[2017-11-17] MEDS: Ondansetron 4 MG/2 ML VIAL IVP PRN ×3 (04:24→20:05)
[2017-11-17] MEDS: *HR* Heparin 5,000 UNIT/ML VIAL SQ SCH ×2 (04:24→18:12)
[2017-11-17 06:13] LABS: Hemoglobin 7.6 g/dL (11.5-15.4)
[2017-11-17 06:15] LABS: Hematocrit 24.3 % (35.3-44.9); Immature Platelets 5.6 % (1.1-6.1); Mean Corpuscular HGB Conc 31.3 g/dL (31.6-35.5); Mean Corpuscular Hemoglobin 29.8 pg (28.0-33.3); Mean Corpuscular Volume 95.3 fL (83.0-100.0); Mean Platelet Volume 11.8 fL (9.4-12.4); Red Blood Count 2.55 M/mcL (3.82-4.97); Red Cell Distribution Width 15.9 % (11.5-14.5)
[2017-11-17 06:34] LABS: VBG HCO3 24 mEq/L (21-27); VBG Ionized Calcium 0.99 mmol/L (1.15-1.35); VBG PCO2 47 mmHg (41-51); VBG PH 7.31 pH Units (7.32-7.42); VBG PO2 74 mmHg (25-50)
[2017-11-17] MEDS: Budesonide/Formoterol 80/4.5 MDI IH SCH ×2 (07:47→22:34)
[2017-11-17 07:57] LABS: Calcium 8.5 mg/dL (8.6-10.3); Magnesium 1.9 mg/dL (1.6-2.6); Phosphorous 8.6 mg/dL (2.7-4.5); Potassium 4.3 mEq/L (3.5-5.1)
[2017-11-17] MEDS ORDERED: 0.9 % Sodium Chloride 250 ML IVC PRN (08:46)
[2017-11-17] MEDS ORDERED: 0.9 % Sodium Chloride 1,000 ML PRIME SCH (09:00)
[2017-11-17] MEDS: Fluconazole 100 MG/50 ML 100 MG/50 ML BAG IVPB SCH ×2 (09:08→18:11)
[2017-11-17] MEDS: Famotidine 20 MG TABLET PO SCH (09:10)
[2017-11-17] MEDS ORDERED: Vancomycin 1 EACH in D5% in Water 250 ML IVPB PRN (12:00)
--- NOTE | 2017-11-17 12:00 | Nephrology Progress Note ---
Date of Encounter: 11/17/17 Time of Encounter: 12:00 - Assessment and Plan (1) ESRD (end stage renal disease) on dialysis Current Visit: No Status: Chronic HD MWF. Renal vitamins. Renal dose medications. Renal diet. Additional dialysis and ultrafiltration as needed. Patient seen while on dialysis. . (2) Chest pain Current Visit: Yes Status: Acute This seems to be much better and at this time seems to be related to her pneumonia. Qualifiers: Chest pain type: unspecified Qualified Code(s): R07.9 - Chest pain, unspecified (3) Sepsis Current Visit: Yes Status: Acute Fungal septicemia. Secondary to pneumonia?? vs infected port vs other. Management per primary team and ID. Improving, but still with positive blood cultures. Qualifiers: Sepsis type: sepsis due to unspecified organism Qualified Code(s): A41.9 - Sepsis, unspecified organism (4) Pneumonia Current Visit: Yes Status: Suspected Respiratory status improving with antimicrobials. Management per primary team and ID. Qualifiers: Pneumonia type: due to unspecified organism Laterality: right Lung location: lower lobe of lung Qualified Code(s): J18.1 - Lobar pneumonia, unspecified organism (5) Anemia Current Visit: No Status: Chronic Monitor hemoglobin. No active bleeding identified. Qualifiers: Anemia type: unspecified type Qualified Code(s): D64.9 - Anemia, unspecified (6) Hyperphosphatemia Current Visit: No Status: Acute Continue phosphate binders. Subjective Principal diagnosis: hypoxic respiratiory failure 2/2 COPD exacerbation 2/2 PNA Interval history: Patient was seen while in dialysis. She is on room air. She states she still has some dyspnea and chest pain, but both of these are much better as compared to yesterday. She denies lightheadedness or dizziness. All of her other symptoms seem to be stable. Objective - Vital Signs Vital signs: Vital Signs Temp Pulse Resp BP Pulse Ox 11/17/17 07:48 18 96 11/17/17 07:02 97.1 F L 74 17 139/69 95 11/17/17 04:43 97.3 F L 73 18 126/50 95 11/17/17 03:55 16 95 11/17/17 00:01 16 94 11/16/17 22:30 97.4 F L 81 16 124/64 93 11/16/17 21:13 97.6 F 91 18 133/59 96 11/16/17 20:16 18 95 11/16/17 16:44 16 95 11/16/17 15:51 97.3 F L 73 16 118/46 94 Intake and Output 11/16/17 11/17/17 11/17/17 23:59 07:59 15:59 Intake Total 200 / 200 360 / 360 Balance 200 / 200 360 / 360 Intake: IV Fluids 200 / 200 Zosyn Premix 3.375 GM/200 ML 3. 200 / 200 375 gm In 200 ml @ 50 mls/hr IVPB Q12H [facility]IANO Rx#:[id number] Oral 360 / 360 Other: Meal Breakfast Percent of Meal Consumed 100% - General Appearance General appearance: Present: well-developed, well-nourished EENT: Present: ATNC Neck: Present: supple - Lab 11/17/17 05:28 11/17/17 05:28 Most recent lab results Calcium 8.5 mg/dL (8.6-10.3) L 11/17/17 05:28 Phosphorus 8.6 mg/dL (2.7-4.5) H 11/17/17 05:28 Magnesium 1.9 mg/dL (1.6-2.6) 11/17/17 05:28 - VTE Documentation of Mechanical Device: Intermittent pneumatic compression device Consult Discharge Plan - Plan Referrals: Na Johansen, TYLER [Primary Care Provider] -
[2017-11-17] MEDS ORDERED: 0.9 % Sodium Chloride 1,000 ML ONE (14:05)
[2017-11-17] MEDS ORDERED: Aminoglycoside Consult 1 EACH MC ONE (14:55)
--- NOTE | 2017-11-17 16:06 | Infectious Disease Consult ---
Date of Encounter: 11/17/17 Time of Encounter: 16:05 Assessment and Plan (1) Sepsis Status: Acute Assessment and plan: Severe sepsis on admission. The patient had two SIRS criteria with hypotension responsive to IV fluids. Likely secondary to fungemia and PNA. Improved. The patient has been afebrile. Hypotension has resolved. Tachycardia has resolved. Peripheral blood cultures drawn 11/14/17 were positive 2/2 for yeast species, but the PCR did not picker and sorter load and unload Kelsey. Additional peripheral fungal blood culture drawn 11/16/17 is positive as well. Qualifiers: Qualified Code(s): A41.9 - Sepsis, unspecified organism (2) Fungemia Status: Acute Assessment and plan: Causative organism unclear. Source unclear, but the patient was recently on TPN given through her a-port. Peripheral blood cultures drawn 11/14/17 were positive 2/2 for yeast species, but the PCR did not picker and sorter load and unload Kelsey. Discussed with micro. Final ID should be back tomorrow. Additional peripheral fungal blood culture drawn 11/16/17 is positive as well. No blood cultures were drawn from the patient's a-port. Repeat blood cultures x 2 sets from the a-port and x2 sets from a peripheral stick now. Give amphotericin B 50mg IV x 1 dose now until we get the final ID back. Continue fluconazole, but increase dose to 400mg IV daily on HD days only. Get opthalmology to evaluate. Duration of treatment depends on the clinical picture. Check baseline LFTs and monitor closely during the duration of treatment. May need to consider removing a-port. (3) Pneumonia Status: Suspected Assessment and plan: Location: Bilaterally. Causative organism unclear. Previous sputum cultures positive for S. maltophilia, PSEA, and E. coli. CXR showed patchy airspace opacities bilaterally, more pronounced in the right lung base. Review of the medical record shows that the patient has had multiple recurrences of PNA over the past six months. She may benefit from formal pulmonology consult and possible bronchoscopy. Check S. pneumo and Legionella UAT. Get sputum culture if the patient is able to produce an adequate specimen. Check RIP --ordered by the primary team, but not collected. Continue Zosyn 3.375 grams IV Q12H (day 4). Stop Levaquin. Duration of treatment depends on the clinical picture. Dose-adjust based on creatinine clearance. Qualifiers: Qualified Code(s): J18.1 - Lobar pneumonia, unspecified organism (4) Bicytopenia Status: Acute Assessment and plan: Etiology unclear, but possibly related to infection. The patient has developed leukopenia and thrombocytopenia since admission. Continue trend. (5) Chest pain Status: Acute Assessment and plan: Likely secondary to PNA. Further workup and management per the primary team. Qualifiers: Qualified Code(s): R07.9 - Chest pain, unspecified (6) Elevated troponin Status: Chronic Assessment and plan: Likely chronic secondary to CKD. EKG shows no acute changes. Further workup and management per the primary team. (7) Acute respiratory failure with hypoxia Status: Acute Assessment and plan: Likely secondary to PNA and COPD. Appears improved. (8) Atrial fibrillation with rapid ventricular response Status: Acute Assessment and plan: Likely secondary to sepsis. Appears resolved. (9) Nausea and vomiting Status: Chronic Assessment and plan: Likely secondary to short gut syndrome. Management per the primary team. Qualifiers: Qualified Code(s): R11.2 - Nausea with vomiting, unspecified (10) Abdominal pain Status: Chronic Qualifiers: Qualified Code(s): R10.30 - Lower abdominal pain, unspecified (11) Anemia in chronic kidney disease Status: Chronic Qualifiers: Qualified Code(s): N18.6 - End stage renal disease; D63.1 - Anemia in chronic kidney disease; Z99.2 - Dependence on renal dialysis (12) COPD (chronic obstructive pulmonary disease) Status: Chronic Qualifiers: Qualified Code(s): J43.1 - Panlobular emphysema (13) ESRD (end stage renal disease) on dialysis Status: Chronic (14) Short bowel syndrome Status: Chronic Assessment and plan: Secondary to multiple abdominal surgeries with the last being in 2011. Recently started on TPN, but the patient could not tolerate. Likely contributing to the patient's poor nutritional status. Management per the primary team. (15) Tobacco abuse Status: Chronic Infectious Disease HPI - Data of Consult Patient: new to practice Consult date: 11/17/17 Requesting Physician: Pasha Alexander MD Primary Care Provider: Na Johansen CNP - Consult Narrative Reason for consult: Fungemia History of present illness: Ms. Parra is a 72 year old female with a past medical history of asthma, A. fib , COPD, GERD, hypertension, end-stage renal disease on hemodialysis, multiple abdominal surgeries including colostomy and urostomy. The patient was admitted to the hospital generate 12 for chest pain, pneumonia, and end-stage renal disease. We are consulted generate 15th or antibiotic recommendations for fungemia. Briefly, the patient's a 72 of female with past medical history as stated above. The patient presented to the emergency department with complaints of chest pain midsternal that was nonradiating and reproducible. Upon presentation , the patient was afebrile, but later developed fever with a MAXIMUM TEMPERATURE of 101.3. She was tachycardic and her blood pressure was stable, however, the patient later developed hypotension with systolic of 70 and heart rate in the 120 to 1:30 range. In the ER, her white blood cell count was normal. Lactic acid was 1.2. Chest x-ray showed patchy airspace opacities, more pronounced in the right lung base consistent with pulmonary edema versus pneumonia. Blood cultures were obtained 2 sets and the patient was started on empiric IV antibiotics and admitted to the hospital for further evaluation. Since admission, the patient developed tachycardia and fever and hypotension. She was subsequently transferred to the intensive care unit, but did not require vasopressors. She was noted to be in A. fib RVR and was on a short course of IV amiodarone. Nephrology was consulted and is following. Blood cultures obtained in the emergency department were +2 out of 2 sets for yeast species, but the PCR did not pickup Kelsey. Additional blood culture drawn on April 16 was +3 species is well. Currently, the patient has a leukopenia and thrombocytopenia. She is on fluconazole, Levaquin, and Zosyn. Vancomycin was discontinued. We've been asked to evaluate and make further recommendations. During my exam today, the patient endorsed a history as stated above. She is somewhat of a poor historian, therefore, some of the information is obtained from the medical record. She states she has had a chronic cough for the past 2 months that is nonproductive and is moist. She states she has been hospitalized multiple times over the past few months for pneumonia and doesn't seem to get any better. She reports chest pain that started about an hour prior to presentation that was midsternal and nonradiating and reproducible. She denies any fevers or chills or rigors. She denies any headache or neck pain or congestion. She denies any earache, sore throat. Chronic nausea with vomiting and diarrhea. She states that anytime she eats anything she has a large amount of stool output in her colostomy bag. She reports chronic abdominal pain that is at baseline. She denies any additional pain at this time. She denies any oral thrush any skin lesions. She states she's had her a port for the past couple years and only gets accessed when she is here. Review of medical record does reveal that they attempt to send her home on TPN after her last hospitalization, but the patient states that she could not tolerate it. Patient lives at home with her brother and niece. She does not work outside the home. She reports that she smokes about a pack of cigarettes per day, but is trying to quit. She denies any alcohol or illicit drug use. She denies recent travel outside the [facility]. CC: Pasha Alexander MD Past Med Surg Social Fam HX - Past Medical History Attestation: Yes The following information was validated with the patient. Source: patient, old records reviewed, nursing notes reviewed Medical history: asthma, atrial fibrillation, COPD, GERD, hypertension, renal disease, thyroid disease, other (Short gut syndrome) Psychiatric history: no psych history - Past Surgical History Surgical History: appendectomy, cholecystectomy, colostomy, herniorrhaphy, hysterectomy, other (Colostomy 1991, cystectomy with urostomy 1986, ileocecal diversion 1985, SBR x 3 02/2012, Bowel resection and cecum with primary ileocolonic stapled anastatmosis 2011, closure small bowel perforation 2011, LUE AV shunt 2014) - Social History Smoking Status: Current every day smoker Packs per day: 1/2-1 Smokeless Tobacco Status: No Alcohol use: none Drug use: none Occupational status: unemployed Current living situation: Home, With Family Activity Level: Independent ambulation Recent Out of Country Travel Within the Last 8 Weeks: No Exposure or Possible Exposure to Illness During Travel: No - Family History Mother Adopted: No Living Status: Hx Family Cardiac Disorders: Yes ([place]/ Stroke) Hx Family Respiratory Disorders: No Hx Family Cancer: No Hx Family GI Disorders: No Hx Family Endocrine Disorder: No Hx Family Neuromuscular Disorders: No Hx Family Neurologic Disorders: No Hx Family HEENT Disorders: No Hx Family Autoimmune Disorders: No Father Adopted: No Living Status: Hx Family Cardiac Disorders: Yes ([place]) Hx Family Respiratory Disorders: No Hx Family Cancer: No Hx Family GI Disorders: No Hx Family Endocrine Disorder: No Hx Family Neuromuscular Disorders: No Hx Family Neurologic Disorders: No Hx Family HEENT Disorders: No Hx Family Autoimmune Disorders: No Brother Living Status: Still Living Hx Family Cardiac Disorders: Yes Hx Family Respiratory Disorders: No Hx Family Endocrine Disorder: Yes Infectious Disease-CN:Meds Cholecalciferol (Vitamin D3) [Vitamin D3] 5,000 unit PO DAILY #0 09/19/15 [ History] Ranitidine HCl [Zantac] 150 mg PO HS 09/19/15 [History] Cyanocobalamin (B-12) [Vitamin B12] 1,000 mcg IM QMONTH 02/21/17 [History] Levothyroxine Sodium [Synthroid] 300 mcg PO DAILY 02/21/17 [History] Mometasone/Formoterol [Dulera 100 Mcg/5 Mcg Inhaler] 2 puff IH BID 02/21/17 [ History] Lidocaine/Prilocaine CREAM [Emla] 1 appl TP AD PRN 06/30/17 [History] Renal Vitamin [Renal Caps Softgel] 1 mg PO DAILY 06/30/17 [History] Acetaminophen [Tylenol] 650 mg PO Q6HR PRN #20 tab 07/10/17 [Rx] Menthol [Williamson] 3.2 mg MM Q4H PRN 07/16/17 [History] Diltiazem CD (24hr) [Cardizem CD] 120 mg PO DAILY cap.er.24h 09/14/17 [Rx] GuaiFENesin ER [Mucinex] 600 mg PO BID 5 Days #10 tbbp.12hr 09/14/17 [Rx] Nicotine Patch [Nicoderm] 21 mg TD DAILY #30 patch.td24 09/14/17 [Rx] Calcium Acetate [Phos-LO] 667 mg PO TIDWM 10/17/17 [History] Amitriptyline [Elavil] 50 mg PO HS tablet 10/24/17 [Rx] Benzonatate [Tessalon] 100 mg PO TID PRN #90 capsule 10/24/17 [Rx] Calcitriol [Rocaltrol] 0.25 mcg PO DAILY capsule 10/24/17 [Rx] HYDROcodone/Acet 7.5/325 mg [Carroll 7.5-325 mg] 1 tab PO Q6HR PRN #10 tablet [Rx] Ipratropium/Albuterol Neb [Duoneb] 3 ml IH [id number] inhsol 10/24/17 [Rx] Furosemide [Lasix] 20 mg PO DAILY 10/28/17 [History] Ferrous Sulfate 325 mg PO DAILY 11/14/17 [History] Gabapentin [Neurontin] 100 mg PO TID 11/14/17 [History] 3 Allergy/AdvReac Type Severity Reaction Status Date / Time codeine AdvReac Severe Vomiting Verified 03/06/17 15:22 naproxen [From Naprosyn] AdvReac Severe Vomiting Verified 03/06/17 15:22 All systems: reviewed and no additional remarkable complaints except as stated Exam - Constitutional Vitals: Temp Pulse Resp BP Pulse Ox 97.5 F L 74 18 145/70 96 11/17/17 13:00 11/17/17 07:02 11/17/17 13:00 11/17/17 14:35 11/17/17 07:48 General appearance: cooperative, no acute distress, thin - Head Head exam: Present: atraumatic, normal inspection, normocephalic - Eye Eye exam: Present: EOMI, normal appearance, PERRL Pupils: Present: normal accommodation - ENT ENT exam: Present: mucous membranes moist - Neck Neck exam: Present: normal inspection - Respiratory Respiratory exam: Present: rhonchi (Coarse rhonchi noted throughout). Absent: CTAB, rales, respiratory distress, wheezes, tachypnea Additional comments: Moist, barky cough noted on exam. - Cardiovascular Cardiovascular exam: Present: RRR, +S1, +S2 Additional comments: Reproducible chest pain noted to the midsternal area. - GI/Abdominal GI/Abdominal exam: Present: normal bowel sounds, soft, tenderness (generalized) . Absent: distended Additional comments: Colostomy noted to the LLQ with beefy red stoma. No drainage noted in collection device. Urostomy noted to the RLQ with no drainage in the collection device. - Extremities Exam Extremities exam: Present: normal inspection. Absent: joint swelling, pedal edema, tenderness - Neurological Exam Neurological exam: Present: alert, oriented X3, no focal deficits - Psychiatric Psychiatric exam: Present: normal affect, normal mood - Skin Skin exam: Present: dry, intact, normal color, warm - Additional findings Additional findings: A-port noted to the right upper chest, currently accessed with Wagner needle. No redness, warmth, drainage, or tenderness noted. Infectious Disease CN: Results - Labs CBC & Chem 7: 11/17/17 05:28 11/17/17 05:28 Cultures: Cultures 11/16/17 05:05 Blood Fungal Culture - Preliminary Peripheral Venipuncture Yeast Species Serology: Cultures 11/16/17 05:05 Blood Fungal Culture - Preliminary Peripheral Venipuncture Yeast Species 11/14/17 14:30 Blood Culture - Preliminary Peripheral Venipuncture Yeast Species 11/14/17 16:00 Blood Culture - Preliminary Peripheral Venipuncture Yeast Species - VTE Documentation of Mechanical Device: Intermittent pneumatic compression device Consult Discharge Plan - Plan Referrals: Na Johansen, [employer] [Primary Care Provider] - - Attending Attestation I examined this patient and my medical decision-making was reviewed with the Resident Physician. I agree with the documented findings, disposition and treatment plan as described except to the extent set forth below. Patient is a 72 year old woman with pmh of a fib, copd, ESRD on HD with a fistula lue s/p colostomy and urostomy back in the with shortgut syndrome and malnutrition was taking TPN at the end for October via right a port came in on the 12h with chest pain and pneumonia and we are consulted on the with fungemia (not kelsey per pcr). Apparently, patient has been treated for pneumonia over 6 times in the last 6 months with cuastaive organism pseudomonas, E coli, Steno, etc This time she came in with chest pain. Afebrile, tachycardic and WBC of 10 with normal diff. She later developed fever and tacychardia and hypotenion. Blood cultures obtained on 11/14 and revealed yeast specieas 2/2 sets but pcr didn not picker and sorter load and unload kelsye sp . CXR showed possible pneumonia on the right base. Repeat cultures on 11/16 were positive 1/1 set peripherally for yeast specias ( again no ID) At this point, Source of fungemia is likely the A port. Does not appear locally infected. I have a high index of suspicion for M furfur infection since patient is on TPN. Will start patient on empiric ampho for now at 1mg/kg until final ID is done ( spoke with micro and they said they should get ID back tomorrow. dose adjust based on ESRD protocol repeat culture now as for the questionable pneumonia, based on preveious cultures, zosyn should be enough d/c levaquin consult pulmonary get urine antigen check fungitell
[2017-11-17] MEDS: Calcium Acetate 667 MG CAPSULE PO SCH (16:26)
[2017-11-17] MEDS: *HR* HYDROcodone/Acet 7.5/325 mg TABLET PO PRN ×2 (16:26→23:12)
--- NOTE | 2017-11-17 17:07 | Event Note ---
Date of Encounter: 11/17/17 Time of Encounter: 09:40 I examined this patient and my medical decision-making was reviewed with the Resident Physician on 11/17/17. I agree with the documented findings, disposition and treatment plan as described except to the extent set forth below. 72-year-old female with multiple medical comorbidities status post urostomy, status post colostomy, short bowel syndrome, end-stage renal disease on dialysis , atrial fibrillation not on anticoagulation due to chronic thrombocytopenia, chronic respiratory failure. she is admitted and being managed for sepsis secondary to bilateral pneumonia, acute respiratory failure with hypoxia. Incidental finding of fungemia in this admission. She continues to complain of cough, without sputum production. She also was found incidentally to have fractured a rib during her prior admission. She denies any other complaints and is currently awaiting dialysis during eval Physical examination: Vital signs stable, alert and oriented 3, moves all extremities, frail chronically ill-looking. Chest with diffuse crackles, right chest wall port with clean dressing, heart sounds S1 and is only. Abdomen urostomy urine, left colostomy clean surrounding and MTP. No pedal edema. Labs and Imaging Reviewed: Repeat blood cultures also with yeast Assessment and Plan: Fungemia: Patient reports having received TPN during last admission, no longer desirous of artifical nutrition Continue Fluconazole IV, Consult Infectious Disease, Obtain Echocardiogram, And Consult Ophthalmology. We will need to discontinue and Remove the Patients Port. Continue Current Antibiotics Vancomycin, Zosyn and Avelox. Continue current management, change solumedrol to prednisone po, continue duonebs Rest of plan as in resident physicians documentation. As in the resident physicians documentation.
--- NOTE | 2017-11-17 17:15 | Internal Med Progress Note ---
<Howard Tirado - Last Filed: 11/17/17 17:12> Date of Encounter: 11/17/17 Time of Encounter: 11:00 - Assessment and plan (1) Fungemia Current Visit: Yes Status: Acute Assessment and plan: Repeat blood culture is + for fungemia, specific fungus unknown. Continue with IV fluconazole, IV antibiotics vancomycin, zosyn and avelox. Consulted ID and Ophthalmology. Electrocardiogram ordered. Consult IR to remove infected port. (2) Sepsis Current Visit: Yes Status: Acute Assessment and plan: Improved. Tachycardia and tachypnea resolved. Sepsis likely secondary to fungemia and pneumonia. Continue with IV antibiotics and fluconazole. Monitor with AM Labs. Patient's vitals are stable. Follow-up on sputum culture and blood cultures. Qualifiers: Sepsis type: sepsis due to unspecified organism Qualified Code(s): A41.9 - Sepsis, unspecified organism (3) Pneumonia Current Visit: Yes Status: Acute Assessment and plan: CXR demonstrates bilateral airspace opacities, most pronounced at right lung base, likely pneumonia. Causative agent is unclear. Follow up on sputum culture. Continue with Zosyn. Qualifiers: Pneumonia type: due to unspecified organism Laterality: bilateral Lung location: lower lobe of lung Qualified Code(s): J18.9 - Pneumonia, unspecified organism (4) ESRD (end stage renal disease) Current Visit: No Status: Chronic Assessment and plan: Patient tolerated HD well today. Monitor kidney function with morning labs. (5) COPD (chronic obstructive pulmonary disease) Current Visit: No Status: Chronic Assessment and plan: Continue with prednisone and duoneb. Qualifiers: COPD type: emphysema Emphysema type: panlobular Qualified Code(s): J43.1 - Panlobular emphysema (6) Severe malnutrition Current Visit: No Status: Chronic Assessment and plan: Patient was on TPN on last admission and no longer desirous of artificial nutrition. She is able to swallow fluids and solids. Continue to encourage PO intake. (7) Elevated troponin Current Visit: Yes Status: Chronic Assessment and plan: Elevated troponin likely secondary to chronic comorbidities. No cardiac intervention required at this time. (8) Colostomy care Current Visit: No Status: Chronic Assessment and plan: Patient's colostomy is pink and moist. Colostomy bag contains gas and no signs of infection noted. Continue with colostomy care. (9) Anemia in CKD (chronic kidney disease) Current Visit: No Status: Chronic Assessment and plan: Chronic anemia at baseline. No acute issues. No signs of bleed. Qualifiers: Chronic kidney disease stage: on chronic dialysis Qualified Code(s): N18.6 - End stage renal disease; D63.1 - Anemia in chronic kidney disease; D63.1 - Anemia in chronic kidney disease; Z99.2 - Dependence on renal dialysis; Z99.2 - Dependence on renal dialysis; Z99.2 - Dependence on renal dialysis; Z99.2 - Dependence on renal dialysis - Time Spent With Patient Greater than 35 minutes - Subjective Interval history: 72F PMHx A. fib, COPD, GERD, HTN, ESRD on HD, thyroid disease, urosteomy, clostomy presented for 1 hour left sharp nonradiating pain. She reports CP has improved, but continues to have SOB and dry cough. Patient denies bowel movement x 4days, but is passing gas. Reports LLQ abdominal pain. Denies fever, chills, nausea, vomiting. Incidental finding of fungemia in this admission. - Constitutional Vitals: Temp Pulse Resp BP Pulse Ox 98.3 F 78 16 106/48 95 11/17/17 16:12 11/17/17 16:12 11/17/17 16:12 11/17/17 16:12 11/17/17 16:12 General appearance: Present: A&O X 3, underweight, answers questions appropriately - Head Head exam: Present: atraumatic - Eye Eye exam: Present: normal appearance - Neck Neck exam general surgery: Present: full ROM, supple, trachea midline - Respiratory Respiratory exam: Present: rales (bilaterally ). Absent: accessory muscle use - Cardiovascular Cardiovascular exam: Present: RRR - GI/Abdominal GI/Abdominal exam: Present: normal bowel sounds, soft, tenderness (left lower quadrant). Absent: guarding, rebound Additional comments: Urosteomy bag is empty. Colostomy bag contains minimal gas and stool. - Extremities Exam Extremities exam: Present: full ROM, radial pulses palpable and symmetrical. Absent: pedal edema - Neurological Exam Neurological exam: Present: alert, CN II-XII intact, oriented X3, no focal deficits Internal Medicine: Result - Labs CBC & Chem 7: 11/17/17 05:28 11/17/17 05:28 Labs: Short CBC 11/17/17 Range/Units 05:28 WBC 3.8 L (4.3-11.1) K/mcL Hgb 7.6 L (11.5-15.4) g/dL Hct 24.3 L (35.3-44.9) % Plt Count 87 L (140-400) K/mcL BMP 11/17/17 05:28 Sodium 141 Potassium 4.3 Chloride 98 Carbon Dioxide 23 BUN 61 H Creatinine 6.92 H Glucose 128 H Calcium 8.5 L - ABG Interpretation ABG results: PT/INR, D-dimer PT 16.2 Seconds (9.4-12.1) H 11/14/17 10:30 - VTE Documentation of Mechanical Device: Intermittent pneumatic compression device Consult Discharge Plan - Plan Referrals: Na Johansen, TYLER [Primary Care Provider] - <Pasha Alexander - Last Filed: 11/18/17 07:27> Date of Encounter: 11/18/17 - Constitutional Vitals: Temp Pulse Resp BP Pulse Ox 97.3 F L 74 17 135/53 94 11/18/17 05:56 11/18/17 05:56 11/18/17 05:56 11/18/17 05:56 11/18/17 05:56 Internal Medicine: Result - Labs CBC & Chem 7: 11/18/17 04:07 11/18/17 04:07 Labs: Short CBC 11/18/17 Range/Units 04:07 WBC 5.6 (4.3-11.1) K/mcL Hgb 7.5 L (11.5-15.4) g/dL Hct 24.5 L (35.3-44.9) % Plt Count 85 L (140-400) K/mcL BMP 11/17/17 11/18/17 05:28 04:07 Sodium 141 141 Potassium 4.3 4.4 Chloride 98 96 L Carbon Dioxide 23 31 H BUN 61 H 50 H Creatinine 6.92 H 5.08 H Glucose 128 H 128 H Calcium 8.5 L 8.6 - ABG Interpretation ABG results: PT/INR, D-dimer PT 16.2 Seconds (9.4-12.1) H 11/14/17 10:30 - Attending Attestation I examined this patient and my medical decision-making was reviewed with the Resident Physician on 11/17/17. I agree with the documented findings, disposition and treatment plan as described except to the extent set forth below. 72-year-old female with multiple medical comorbidities status post urostomy, status post colostomy, short bowel syndrome, end-stage renal disease on dialysis , atrial fibrillation not on anticoagulation due to chronic thrombocytopenia, chronic respiratory failure. she is admitted and being managed for sepsis secondary to bilateral pneumonia, acute respiratory failure with hypoxia. Incidental finding of fungemia in this admission. She continues to complain of cough, without sputum production. She also was found incidentally to have fractured a rib during her prior admission. She denies any other complaints and is currently awaiting dialysis during eval Physical examination: Vital signs stable, alert and oriented 3, moves all extremities, frail chronically ill-looking. Chest with diffuse crackles, right chest wall port with clean dressing, heart sounds S1 and is only. Abdomen urostomy urine, left colostomy clean surrounding and MTP. No pedal edema. Labs and Imaging Reviewed: Repeat blood cultures also with yeast Assessment and Plan: Fungemia: Patient reports having received TPN during last admission, no longer desirous of artifical nutrition Continue Fluconazole IV, Consult Infectious Disease, Obtain Echocardiogram, And Consult Ophthalmology. We will need to discontinue and Remove the Patients Port. Continue Current Antibiotics Vancomycin, Zosyn and Avelox. Continue current management, change solumedrol to prednisone po, continue duonebs Rest of plan as in resident physicians documentation. As in the resident physicians documentation.
[2017-11-17] MEDS ORDERED: Vancomycin 500 MG in 0.9 % Sodium Chloride Mini Bag 100 ML IVPB ONE (18:00)
[2017-11-17] MEDS ORDERED: predniSONE 20 MG TABLET PO SCH (18:00)
--- NOTE | 2017-11-17 18:37 | Internal Medicine Consult Note ---
Date of Encounter: 11/17/17 Time of Encounter: 17:58 Internal Medicine - CN: HPI - Data of Consult Requesting Physician: Pasha Alexander MD - Consult Narrative Reason for consult: Fungemia/sepsis - rule out endophthalmitis History of present illness: Ms. Parra is a 72 year old female Patient reports grade vision in both eyes. She reports good eye comfort and has no eye complaints. She reports that she has had cataract extraction surgery performed in the past. Chart review reveals that the patient has fungemia and is on fluconazole IV. Patient has sepsis, pneumonia, end-stage renal disease, COPD, malnutrition, elevated troponin, colostomy and anemia of end-stage renal disease. Examination reveals visual acuity with correction of 20/30 in the right eye and 20/25+1 in the left eye (near equivalent Snellen). The intraocular pressures were measured by applanation without fluorescein. The intraocular pressure was 4 mmHg in the right eye and 5 mmHg in the left eye. Slit-lamp examination revealed normal eyelids in both eyes. The conjunctiva was normal in both eyes. The cornea was clear in both eyes anterior chamber was grade 2 in depth and clear in the right eye and grade 3 in depth and clear in the left eye. The iris was normal in both eyes. Pupils were equal round and reactive to light with no relative afferent pupillary defects noted. Extraocular motility testing revealed full excursion of both eyes to all cardinal positions of gaze. Confrontation visual stein were full and normal in both eyes. Both eyes were dilated with 1% tropicamide drops. Further examination after dilation of the pupils revealed in the lens +3 nuclear sclerosis with a mild posterior subcapsular cataract in the right eye. In the left eye a posterior chamber intraocular lens implant was in good position with an open posterior capsule and mild pitting of the intraocular lens presumably from a YAG laser was noted. The vitreous was clear in both eyes. The optic nerve head was normal in both eyes. The cup-to-disc ratio was 0.3 in the right eye and 0.2 in the left eye. The macula, blood vessels, posterior pole and retinal periphery was normal in both eyes. Impression 1. No evidence of endophthalmitis was appreciated in either eye. 2. Nuclear sclerotic cataract in the right eye 3. Pseudophakia in the left eye Recommendation continue present treatment I would be happy to see the patient again as an inpatient or after discharge as needed. Past Med Surg Social Fam HX - Past Medical History Medical history: asthma, atrial fibrillation, COPD, GERD, hypertension, renal disease, thyroid disease, other (Short gut syndrome) Psychiatric history: no psych history - Past Surgical History Surgical History: appendectomy, cholecystectomy, colostomy, herniorrhaphy, hysterectomy, other (Colostomy 1991, cystectomy with urostomy 1986, ileocecal diversion 1985, SBR x 3 02/2012, Bowel resection and cecum with primary ileocolonic stapled anastatmosis 2011, closure small bowel perforation 2011, LUE AV shunt 2014) - Social History Smoking Status: Current every day smoker Packs per day: 2- Smokeless Tobacco Status: No Alcohol use: none Drug use: none - Family History Mother Adopted: No Living Status: Hx Family Cardiac Disorders: Yes (ID/ Stroke) Hx Family Respiratory Disorders: No Hx Family Cancer: No Hx Family GI Disorders: No Hx Family Endocrine Disorder: No Hx Family Neuromuscular Disorders: No Hx Family Neurologic Disorders: No Hx Family HEENT Disorders: No Hx Family Autoimmune Disorders: No Father Adopted: No Living Status: Hx Family Cardiac Disorders: Yes (ID) Hx Family Respiratory Disorders: No Hx Family Cancer: No Hx Family GI Disorders: No Hx Family Endocrine Disorder: No Hx Family Neuromuscular Disorders: No Hx Family Neurologic Disorders: No Hx Family HEENT Disorders: No Hx Family Autoimmune Disorders: No Brother Living Status: Still Living Hx Family Cardiac Disorders: Yes Hx Family Respiratory Disorders: No Hx Family Endocrine Disorder: Yes Internal Medicine - CN: Meds Cholecalciferol (Vitamin D3) [Vitamin D3] 5,000 unit PO DAILY #0 09/19/15 [ History] Ranitidine HCl [Zantac] 150 mg PO HS 09/19/15 [History] Cyanocobalamin (B-12) [Vitamin B12] 1,000 mcg IM QMONTH 02/21/17 [History] Levothyroxine Sodium [Synthroid] 300 mcg PO DAILY 02/21/17 [History] Mometasone/Formoterol [Dulera 100 Mcg/5 Mcg Inhaler] 2 puff IH BID 02/21/17 [ History] Lidocaine/Prilocaine CREAM [[place]] 1 appl TP AD PRN 06/30/17 [History] Renal Vitamin [Renal Caps Softgel] 1 mg PO DAILY 06/30/17 [History] Acetaminophen [Tylenol] 650 mg PO Q6HR PRN #20 tab 07/10/17 [Rx] Menthol [[place]] 3.2 mg MM Q4H PRN 07/16/17 [History] Diltiazem CD (24hr) [Cardizem CD] 120 mg PO DAILY cap.er.24h 09/14/17 [Rx] GuaiFENesin ER [Mucinex] 600 mg PO BID 5 Days #10 tbbp.12hr 09/14/17 [Rx] Nicotine Patch [Nicoderm] 21 mg TD DAILY #30 patch.td24 09/14/17 [Rx] Calcium Acetate [Phos-LO] 667 mg PO TIDWM 10/17/17 [History] Amitriptyline [Elavil] 50 mg PO HS tablet 10/24/17 [Rx] Benzonatate [Tessalon] 100 mg PO TID PRN #90 capsule 10/24/17 [Rx] Calcitriol [Rocaltrol] 0.25 mcg PO DAILY capsule 10/24/17 [Rx] HYDROcodone/Acet 7.5/325 mg [[place] 7.5-325 mg] 1 tab PO Q6HR PRN #10 tablet [Rx] Ipratropium/Albuterol Neb [Duoneb] 3 ml IH [id number] inhsol 10/24/17 [Rx] Furosemide [Lasix] 20 mg PO DAILY 10/28/17 [History] Ferrous Sulfate 325 mg PO DAILY 11/14/17 [History] Gabapentin [Neurontin] 100 mg PO TID 11/14/17 [History] 3 Allergy/AdvReac Type Severity Reaction Status Date / Time codeine AdvReac Severe Vomiting Verified 03/06/17 15:22 naproxen [From Naprosyn] AdvReac Severe Vomiting Verified 03/06/17 15:22 Internal Medicine - CN: Exam - Constitutional Vitals: Temp Pulse Resp BP Pulse Ox 98.3 F 78 16 106/48 95 11/17/17 16:12 11/17/17 16:12 11/17/17 16:24 11/17/17 16:12 11/17/17 16:24 Internal Medicine - CN: Reslt - Labs CBC & Chem 7: 11/17/17 05:28 11/17/17 05:28 Labs: Short CBC 11/17/17 Range/Units 05:28 WBC 3.8 L (4.3-11.1) K/mcL Hgb 7.6 L (11.5-15.4) g/dL Hct 24.3 L (35.3-44.9) % Plt Count 87 L (140-400) K/mcL BMP 11/17/17 05:28 Sodium 141 Potassium 4.3 Chloride 98 Carbon Dioxide 23 BUN 61 H Creatinine 6.92 H Glucose 128 H Calcium 8.5 L - ABG Interpretation ABG results: PT/INR, D-dimer PT 16.2 Seconds (9.4-12.1) H 11/14/17 10:30 Consult Discharge Plan - Plan Referrals: Na Johansen, [facility] [Primary Care Provider] -
[2017-11-17] MEDS: predniSONE 20 MG TABLET PO SCH (20:05)
[2017-11-18] MEDS ORDERED: *HR* Morphine 2 MG/ML SYRINGE IVP ONE (01:20)
[2017-11-18] MEDS: Ipratropium/Albuterol Neb 3 ML IH SCH ×6 (03:18→23:23)
[2017-11-18] MEDS: Ondansetron 4 MG/2 ML VIAL IVP PRN ×4 (03:38→23:41)
[2017-11-18 04:44] LABS: Hematocrit 24.5 % (35.3-44.9); Hemoglobin 7.5 g/dL (11.5-15.4); Immature Platelets 7.3 % (1.1-6.1); Mean Corpuscular HGB Conc 30.6 g/dL (31.6-35.5); Mean Corpuscular Hemoglobin 29.6 pg (28.0-33.3); Mean Corpuscular Volume 96.8 fL (83.0-100.0); Mean Platelet Volume 11.8 fL (9.4-12.4); Red Blood Count 2.53 M/mcL (3.82-4.97); Red Cell Distribution Width 16.4 % (11.5-14.5)
[2017-11-18] MEDS: Piperacillin/Tazobactam 3.375 GM/200 ML BAG IVPB SCH ×2 (04:59→16:32)
[2017-11-18 05:01] LABS: Calcium 8.6 mg/dL (8.6-10.3); Potassium 4.4 mEq/L (3.5-5.1)
[2017-11-18] MEDS: *HR* Heparin 5,000 UNIT/ML VIAL SQ SCH ×2 (06:03→17:39)
[2017-11-18] MEDS: Budesonide/Formoterol 80/4.5 MDI IH SCH ×2 (07:44→19:56)
[2017-11-18] MEDS: predniSONE 20 MG TABLET PO SCH (08:33)
[2017-11-18] MEDS: Calcium Acetate 667 MG CAPSULE PO SCH ×3 (08:33→17:33)
[2017-11-18] MEDS: Famotidine 20 MG TABLET PO SCH (08:33)
[2017-11-18] MEDS ORDERED: LEVOFLOXACIN 500 MG/100 ML MLS IVPB SCH (09:00)
[2017-11-18 10:09] LABS: Adenovirus Not Detected (Not Detect); Bordetella Pertussis Not Detected (Not Detect); Chlamydophila pneumoniae Not Detected (Not Detect); Coronavirus 229E Not Detected (Not Detect); Coronavirus HKU1 ***DETECTED*** (Not Detect); Coronavirus NL63 Not Detected (Not Detect); Coronavirus OC43 Not Detected (Not Detect); Human Metapneumovirus Not Detected (Not Detect); Human Rhinovirus/Enterovirus Not Detected (Not Detect); Influenza A Subtype 2009 H1 Not Detected (Not Detect); Influenza A Untypeable Not Detected (Not Detect); Influenza B Not Detected (Not Detect); Mycoplasma pneumoniae Not Detected (Not Detect); Parainfluenza Virus 1 Not Detected (Not Detect); Parainfluenza Virus 2 Not Detected (Not Detect); Parainfluenza Virus 3 Not Detected (Not Detect); Parainfluenza Virus 4 Not Detected (Not Detect); Respiratory Syncytial Virus ***DETECTED*** (Not Detect)
[2017-11-18] MEDS: *HR* HYDROcodone/Acet 7.5/325 mg TABLET PO PRN ×3 (11:59→23:41)
--- NOTE | 2017-11-18 12:28 | Infectious Disease Progress No ---
Date of Encounter: 11/18/17 Time of Encounter: 12:25 - Assessment and Plan (1) Sepsis Current Visit: Yes Status: Acute Severe sepsis on admission. The patient had two SIRS criteria with hypotension responsive to IV fluids. Likely secondary to fungemia and PNA. Improved. The patient has been afebrile. Hypotension has resolved. Tachycardia has resolved. Peripheral blood cultures drawn 11/14/17 were positive 2/2 for Kelsey lusitaniae. Additional peripheral fungal blood culture drawn 11/16/17 is positive as well. Peripheral and -port blood cultures drawn 11/17/17 are pending. Qualifiers: Sepsis type: sepsis due to unspecified organism Qualified Code(s): A41.9 - Sepsis, unspecified organism (2) Fungemia Current Visit: Yes Status: Acute Causative organism Kelsey lusitiniae. Source unclear, but the patient was recently on TPN given through her a-port. Her a-port was removed 11/18/17. Peripheral blood cultures drawn 11/14/17 were positive 2/2. Additional peripheral fungal blood culture drawn 11/16/17 is positive as well. No blood cultures were drawn from the patient's a-port before antifungals were started. Repeat blood cultures x 2 sets from the a-port and x2 sets from a peripheral stick drawn 11/17/17 are pending. Continue fluconazole, but increase dose to 400mg IV daily on HD days only. Dosing discussed with Oliverio Jay. Opthalmology evaluation noted and appreciated. Duration of treatment depends on the clinical picture. Check baseline LFTs and monitor closely during the duration of treatment. (3) Pneumonia Current Visit: Yes Status: Suspected Location: Bilaterally. Causative organism unclear, but possible viral. RIP positive for HSV and Coronavirus. Previous sputum cultures positive for S. maltophilia, PSEA, and E. coli. CXR showed patchy airspace opacities bilaterally, more pronounced in the right lung base. Review of the medical record shows that the patient has had multiple recurrences of PNA over the past six months. She may benefit from formal pulmonology consult and possible bronchoscopy. Check S. pneumo and Legionella UAT.--> the patient has not made enough urine to send down. Get sputum culture if the patient is able to produce an adequate specimen. Continue Zosyn 3.375 grams IV Q12H (day 5). Duration of treatment depends on the clinical picture, but likely 7 days. Dose-adjust based on creatinine clearance. Qualifiers: Pneumonia type: due to unspecified organism Laterality: right Lung location: lower lobe of lung Qualified Code(s): J18.1 - Lobar pneumonia, unspecified organism (4) Bicytopenia Current Visit: No Status: Acute Etiology unclear, but possibly related to infection. Leukopenia has resolved, but thrombocytopenia is worse. Continue trend. (5) Chest pain Current Visit: Yes Status: Acute Likely secondary to PNA. Further workup and management per the primary team. Qualifiers: Chest pain type: unspecified Qualified Code(s): R07.9 - Chest pain, unspecified (6) Elevated troponin Current Visit: Yes Status: Chronic Likely chronic secondary to CKD. EKG shows no acute changes. Further workup and management per the primary team. (7) Acute respiratory failure with hypoxia Current Visit: No Status: Acute Likely secondary to PNA and COPD. Appears improved. (8) Atrial fibrillation with rapid ventricular response Current Visit: No Status: Acute Likely secondary to sepsis. Appears resolved. (9) Nausea and vomiting Current Visit: No Status: Chronic Likely secondary to short gut syndrome. Management per the primary team. Qualifiers: Vomiting type: unspecified Vomiting Intractability: non-intractable Qualified Code(s): R11.2 - Nausea with vomiting, unspecified (10) Abdominal pain Current Visit: No Status: Chronic Chronic, but the patient has developed bleeding from her Urostomy and her Colostomy. Consider GI/Urology consult. Further workup and management per the primary team. Qualifiers: Abdominal location: lower abdomen, unspecified Qualified Code(s): R10.30 - Lower abdominal pain, unspecified (11) Anemia in chronic kidney disease Current Visit: No Status: Chronic Qualifiers: Chronic kidney disease stage: on chronic dialysis Qualified Code(s): N18.6 - End stage renal disease; D63.1 - Anemia in chronic kidney disease; Z99.2 - Dependence on renal dialysis (12) COPD (chronic obstructive pulmonary disease) Current Visit: No Status: Chronic Qualifiers: COPD type: emphysema Emphysema type: panlobular Qualified Code(s): J43.1 - Panlobular emphysema (13) ESRD (end stage renal disease) on dialysis Current Visit: No Status: Chronic Nephrology consulted and following. 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 Recently started on TPN, but the patient could not tolerate. Likely contributing to the patient's poor nutritional status. Management per the primary team. (15) Tobacco abuse Current Visit: No Status: Chronic - Subjective Interval history: Patient seen and examined. No acute events noted overnight. Patient complains of midsternal, nonradiating, reproducible chest pain and shortness of breath with moist nonproductive cough. She complains of pain at the site of her a port explantation. She reports chronic nausea and vomiting with by mouth intake. She reports liquid stool from her colostomy. She also reports new onset of bloody urine in her urostomy and a small amount of blood in her colostomy. She complains of chronic bilateral leg pain. She denies oral thrush or new skin lesions. Infect Dis PN-Objective Data - Labs CBC & Chem 7: 11/18/17 04:07 11/18/17 04:07 Labs: Laboratory Results - last 24 hr 11/18/17 11/18/17 11/18/17 04:07 04:07 08:41 WBC 5.6 RBC 2.53 L Hgb 7.5 L Hct 24.5 L MCV 96.8 MCH 29.6 MCHC 30.6 L RDW 16.4 H Plt Count 85 L MPV 11.8 Immature Plt Fraction 7.3 H Sodium 141 Potassium 4.4 Chloride 96 L Carbon Dioxide 31 H BUN 50 H Creatinine 5.08 H Est GFR ( Amer) 10 L Est GFR (Non-Af Amer) 8 L BUN/Creatinine Ratio 10 Glucose 128 H Calculated Osmolality 307 H Calcium 8.6 Chlamy pneumoniae PCR Not Detected Adenovirus (PCR) Not Detected B. pertussis DNA (PCR) Not Detected B.parapertussis DNA PCR Not Detected Coronavirus OC43 (PCR) Not Detected Coronavirus HKU1 (PCR) DETECTED A Coronavirus 229E (PCR) Not Detected Coronavirus NL63 (PCR) Not Detected Human Metapneumovir PCR Not Detected Influenza A (H1) PCR Not Detected Influ A (H1N1/09) PCR Not Detected Influenza A (H3) PCR Not Detected Influenza A Untype (PCR) Not Detected Influenza Type B (PCR) Not Detected M.pneumoniae DNA (PCR) Not Detected Parainfluenza 1 (PCR) Not Detected Parainfluenza 2 (PCR) Not Detected Parainfluenza 3 (PCR) Not Detected Parainfluenza 4 (PCR) Not Detected RSV (PCR) DETECTED A Entero/Rhino (PCR) Not Detected Cultures: Cultures 11/16/17 05:05 Blood Fungal Culture - Final Peripheral Venipuncture Kelsey lusitaniae Serology 11/18/17 Range/Units 08:41 Chlamy pneumoniae PCR Not Detected (Not Detect) Adenovirus (PCR) Not Detected (Not Detect) B. pertussis DNA (PCR) Not Detected (Not Detect) B.parapertussis DNA PCR Not Detected (Not Detect) Coronavirus OC43 (PCR) Not Detected (Not Detect) Coronavirus HKU1 (PCR) DETECTED A (Not Detect) Coronavirus 229E (PCR) Not Detected (Not Detect) Coronavirus NL63 (PCR) Not Detected (Not Detect) Human Metapneumovir PCR Not Detected (Not Detect) Influenza A (H1) PCR Not Detected (Not Detect) Influ A (H1N1/09) PCR Not Detected (Not Detect) Influenza A (H3) PCR Not Detected (Not Detect) Influenza A Untype (PCR) Not Detected (Not Detect) Influenza Type B (PCR) Not Detected (Not Detect) M.pneumoniae DNA (PCR) Not Detected (Not Detect) Parainfluenza 1 (PCR) Not Detected (Not Detect) Parainfluenza 2 (PCR) Not Detected (Not Detect) Parainfluenza 3 (PCR) Not Detected (Not Detect) Parainfluenza 4 (PCR) Not Detected (Not Detect) RSV (PCR) DETECTED A (Not Detect) Entero/Rhino (PCR) Not Detected (Not Detect) - Impressions Impressions Echocardiogram 11/17/17 14:33 Impressions: LVEF 60%. Mild LV concentric hypertrophy. Moderate left ventricular diastolic dysfunction. Normal right ventricular structure and function. Mildly sclerotic aortic valve leaflets. Mild mitral regurgitation. Mild-moderate, eccentric tricuspid regurgitation. No pulmonary hypertension. Valvular vegetations are not visualized on this study. Left Ventricular Wall Motion: Rest Echo Findings All wall segments showed normal motion. Findings: Study Quality * Technically adequate exam. ECG Findings * Normal sinus rhythm. Left Ventricle * LVEF 60%. * Normal LV chamber size. * Mild LV concentric hypertrophy. * Moderate left ventricular diastolic dysfunction. Right Ventricle * Normal right ventricular structure and function. Left Atrium * Severely dilated left atrium. Right Atrium * Normal right atrial size. Aortic Valve * No aortic regurgitation. * Aortic valve not well visualized. * No aortic stenosis. * Mildly sclerotic aortic valve leaflets. Mitral Valve * No mitral stenosis. * Mildly sclerotic mitral valve leaflets. * Mild mitral regurgitation. * Moderate mitral annular calcification Tricuspid Valve * Normal tricuspid valve structure. * Mild-moderate, eccentric tricuspid regurgitation. * Estimated RA pressure is 3 mmHg. * Estimated RVSP is 31 mmHg. * No pulmonary hypertension. Pulmonic Valve * Pulmonic valve is not well visualized. * No pulmonic stenosis. * No pulmonic regurgitation. Pulmonary Artery * Pulmonary artery not well visualized. Aorta * Normally sized aortic root. Pericardium * There is no pericardial effusion present. Interatrial Septum * No evidence of PFO by color Doppler. IVC * Normal IVC dimensions and inspiratory collapse. Tunnelled Catheter Removal 11/18/17 00:00 IMPRESSION: Successful subcutaneous Port-A-Cath removal D/ / Jet Johansen MD / Jet Johansen MD Interpreting Provider: Jet Johansen MD Exam - Constitutional Vitals: Temp Pulse Resp BP Pulse Ox 97.6 F 73 17 137/60 99 11/18/17 11:34 11/18/17 11:34 11/18/17 11:34 11/18/17 11:34 11/18/17 11:34 General appearance: cooperative, no acute distress, thin - Head Head exam: Present: atraumatic, normal inspection, normocephalic - Eye Eye exam: Present: EOMI, normal appearance, PERRL Pupils: Present: normal accommodation - ENT ENT exam: Present: mucous membranes moist - Neck Neck exam: Present: normal inspection - Respiratory Respiratory exam: Present: rhonchi (Throughout), wheezes (Coarse inspiratory and expiratory wheezes throughout), tachypnea. Absent: rales - Cardiovascular Cardiovascular exam: Present: RRR, +S1, +S2 - GI/Abdominal GI/Abdominal exam: Present: normal bowel sounds, soft, tenderness (Generalized) . Absent: distended Additional comments: Blood noted in the urostomy bag. Moderate amount of liquid brown stool noted in the colostomy bag with a small amount of blood. - Extremities Exam Extremities exam: Absent: joint swelling, pedal edema, tenderness - Neurological Exam Neurological exam: Present: alert, oriented X3, no focal deficits - Psychiatric Psychiatric exam: Present: normal affect, normal mood - Skin Skin exam: Present: dry, intact, normal color, warm - Additional findings Additional findings: Right upper chest a port explantation site noted with Steri-Strips intact. No redness, warmth, or tenderness noted at this time. - VTE Documentation of Mechanical Device: Intermittent pneumatic compression device Consult Discharge Plan - Plan Referrals: Na Johansen, [employer] [Primary Care Provider] - - Attending Attestation I examined this patient and my medical decision-making was reviewed with the Resident Physician. I agree with the documented findings, disposition and treatment plan as described except to the extent set forth below.
--- NOTE | 2017-11-18 13:18 | Internal Med Progress Note ---
<Pasha Alexander T - Last Filed: 11/18/17 13:41> Date of Encounter: 11/18/17 - Constitutional Vitals: Temp Pulse Resp BP Pulse Ox 97.6 F 73 17 137/60 99 11/18/17 11:34 11/18/17 11:34 11/18/17 11:34 11/18/17 11:34 11/18/17 11:34 Internal Medicine: Result - Labs CBC & Chem 7: 11/18/17 04:07 11/18/17 04:07 Labs: Short CBC 11/18/17 Range/Units 04:07 WBC 5.6 (4.3-11.1) K/mcL Hgb 7.5 L (11.5-15.4) g/dL Hct 24.5 L (35.3-44.9) % Plt Count 85 L (140-400) K/mcL BMP 11/18/17 04:07 Sodium 141 Potassium 4.4 Chloride 96 L Carbon Dioxide 31 H BUN 50 H Creatinine 5.08 H Glucose 128 H Calcium 8.6 - ABG Interpretation ABG results: PT/INR, D-dimer PT 16.2 Seconds (9.4-12.1) H 11/14/17 10:30 - Impressions Impressions Echocardiogram 11/17/17 14:33 Impressions: LVEF 60%. Mild LV concentric hypertrophy. Moderate left ventricular diastolic dysfunction. Normal right ventricular structure and function. Mildly sclerotic aortic valve leaflets. Mild mitral regurgitation. Mild-moderate, eccentric tricuspid regurgitation. No pulmonary hypertension. Valvular vegetations are not visualized on this study. Left Ventricular Wall Motion: Rest Echo Findings All wall segments showed normal motion. Findings: Study Quality * Technically adequate exam. ECG Findings * Normal sinus rhythm. Left Ventricle * LVEF 60%. * Normal LV chamber size. * Mild LV concentric hypertrophy. * Moderate left ventricular diastolic dysfunction. Right Ventricle * Normal right ventricular structure and function. Left Atrium * Severely dilated left atrium. Right Atrium * Normal right atrial size. Aortic Valve * No aortic regurgitation. * Aortic valve not well visualized. * No aortic stenosis. * Mildly sclerotic aortic valve leaflets. Mitral Valve * No mitral stenosis. * Mildly sclerotic mitral valve leaflets. * Mild mitral regurgitation. * Moderate mitral annular calcification Tricuspid Valve * Normal tricuspid valve structure. * Mild-moderate, eccentric tricuspid regurgitation. * Estimated RA pressure is 3 mmHg. * Estimated RVSP is 31 mmHg. * No pulmonary hypertension. Pulmonic Valve * Pulmonic valve is not well visualized. * No pulmonic stenosis. * No pulmonic regurgitation. Pulmonary Artery * Pulmonary artery not well visualized. Aorta * Normally sized aortic root. Pericardium * There is no pericardial effusion present. Interatrial Septum * No evidence of PFO by color Doppler. IVC * Normal IVC dimensions and inspiratory collapse. Tunnelled Catheter Removal 11/18/17 00:00 IMPRESSION: Successful subcutaneous Port-A-Cath removal D/ / Jet Johansen MD / Jet Johansen MD Interpreting Provider: Jet Johansen MD Consult Discharge Plan - Plan Referrals: Na Johansen CNP [Primary Care Provider] - - Attending Attestation I examined this patient and my medical decision-making was reviewed with the Resident Physician on 11/18/17. I agree with the documented findings, disposition and treatment plan as described except to the extent set forth below. 72-year-old female with multiple medical comorbidities status post urostomy, status post colostomy, short bowel syndrome, end-stage renal disease on dialysis , atrial fibrillation not on anticoagulation due to chronic thrombocytopenia, chronic respiratory failure. she is admitted and being managed for sepsis secondary to bilateral pneumonia, acute respiratory failure with hypoxia. Incidental finding of fungemia in this admission. She continues to complain of cough, without sputum production. She also was found incidentally to have fractured a rib during her prior admission. She denies any other complaints We have removed her port-a-cath Infectious disease eval noted Cultures show davide sp sensitive to azoles and caspofungin we will continue fluconazole and repeat blood cultures Physical examination: Vital signs stable, alert and oriented 3, moves all extremities, frail chronically ill-looking. Chest with diffuse crackles, right chest wall port with clean dressing, heart sounds S1 and is only. Abdomen urostomy urine, left colostomy clean surrounding and MTP. No pedal edema. Labs and Imaging Reviewed: Repeat blood cultures also with yeast. ECHO noted, no vegetation Assessment and Plan: Fungemia: Patient reports having received TPN during last admission, no longer desirous of artifical nutrition Continue Fluconazole IV, ECHO with no vegetations, ophthalmology eval noted, no endophthamitis or eye lesions, port has been removed Continue Current Antibiotics Vancomycin, Zosyn and Avelox. Continue other current management Rest of plan as in resident physicians documentation. As in the resident physicians documentation. <Howard Tirado - Last Filed: 11/18/17 15:37> Date of Encounter: 11/18/17 Time of Encounter: 09:30 - Assessment and plan (1) Fungemia Current Visit: Yes Status: Acute Assessment and plan: Repeat blood culture is + for Davide lusitaniae x3. Per ID consult, continue with IV fluconazole but increase dose to 400mg IV daily on HD days. Monitor LFTs. Ophthalmology reports no evidence of endophthalmitis in either eye and no further acute management needed at this time. A-port removed without complications. Continue wound care. (2) Pneumonia Current Visit: Yes Status: Acute Assessment and plan: RIP postive for HSV and Coronavirus. Previous sputum cultures positive for S. maltophilia, PSEA, and E. coli. CXR showed patchy airspace opacities bilaterally, more pronounced in the right lung base. Pulmonary consult due to multiple recurrences of PNA in the last 6 months despite treatment. Follow-up on possible bronchoscopy Follow-up sputum culture. Continue Zosyn 3.375 IV BID (day 5). Continue contact precautions. Qualifiers: Pneumonia type: due to unspecified organism Laterality: bilateral Lung location: lower lobe of lung Qualified Code(s): J18.9 - Pneumonia, unspecified organism (3) Sepsis Current Visit: Yes Status: Acute Assessment and plan: Sepsis likely secondary to fungemia and pneumonia. Tachycardia and tachypnea resolved. Continue with IV antibiotics and fluconazole. Monitor with AM Labs. Patient's vitals are stable. Treat per Fungemia. Qualifiers: Sepsis type: sepsis due to unspecified organism Qualified Code(s): A41.9 - Sepsis, unspecified organism (4) Chest pain Current Visit: Yes Status: Acute Assessment and plan: Patient reports chest pain this morning. Physical exam reveals reproducible chest pain with touch and coughing. CP likely secondary to chronic cough and vomiting. Qualifiers: Qualified Code(s): R07.1 - Chest pain on breathing; R07.81 - Pleurodynia (5) Nausea & vomiting Current Visit: Yes Status: Acute Assessment and plan: Continue with pepcid and zofran and IVF Qualifiers: Qualified Code(s): R11.2 - Nausea with vomiting, unspecified (6) ESRD (end stage renal disease) Current Visit: No Status: Chronic Assessment and plan: Patient tolerated HD well today. Monitor kidney function with morning labs. (7) COPD (chronic obstructive pulmonary disease) Current Visit: No Status: Chronic Assessment and plan: Continue with prednisone and duoneb. Qualifiers: COPD type: emphysema Emphysema type: panlobular Qualified Code(s): J43.1 - Panlobular emphysema (8) Severe malnutrition Current Visit: No Status: Chronic Assessment and plan: Patient was on TPN on last admission and no longer desirous of artificial nutrition. She is able to swallow fluids and solids. Continue to encourage PO intake. (9) Elevated troponin Current Visit: Yes Status: Chronic Assessment and plan: Elevated troponin likely secondary to chronic comorbidities. No cardiac intervention required at this time. (10) Colostomy care Current Visit: No Status: Chronic Assessment and plan: Patient's colostomy is pink and moist. Colostomy bag contains gas and no signs of infection noted. Continue with colostomy care. (11) Anemia in CKD (chronic kidney disease) Current Visit: No Status: Chronic Assessment and plan: Chronic anemia at baseline. No acute issues. No signs of bleed. Qualifiers: Chronic kidney disease stage: on chronic dialysis Qualified Code(s): N18.6 - End stage renal disease; D63.1 - Anemia in chronic kidney disease; D63.1 - Anemia in chronic kidney disease; Z99.2 - Dependence on renal dialysis; Z99.2 - Dependence on renal dialysis; Z99.2 - Dependence on renal dialysis; Z99.2 - Dependence on renal dialysis - Subjective Interval history: 72F PMHx A. fib, COPD, GERD, HTN, ESRD on HD, thyroid disease, urosteomy, clostomy presented for 1 hour left sharp nonradiating pain. She reports CP has improved, but continues to have SOB and dry cough. Patient denies bowel movement x 4days, but is passing gas. Reports LLQ abdominal pain. Denies fever, chills, nausea, vomiting. Incidental finding of fungemia in this admission. Patient had multiple episodes of non-bloody emesis last night and reports substernal chest pain this AM. Pain is reproducible with coughing. hematuria noted on urostomy bag. IR removed A-port due to fungemia without complications. Patient denies f/c/n/v, abdominal pain, SOB, CP, cough. - Constitutional Vitals: Temp Pulse Resp BP Pulse Ox 97.6 F 73 17 137/60 99 11/18/17 11:34 11/18/17 11:34 11/18/17 11:34 11/18/17 11:34 11/18/17 11:34 General appearance: Present: A&O X 3, underweight, answers questions appropriately - Head Head exam: Present: atraumatic, normocephalic - Eye Eye exam: Present: normal appearance - ENT ENT exam: Present: mucous membranes dry - Neck Neck exam general surgery: Present: full ROM, supple, trachea midline - Respiratory Respiratory exam: Present: rales. Absent: accessory muscle use, respiratory distress Additional comments: bilateral rales noted. - Cardiovascular Cardiovascular exam: Present: distant heart sounds, +S1, +S2. Absent: diastolic murmur, gallop, rubs Additional comments: A port incision site tender and with erythema. - GI/Abdominal GI/Abdominal exam: Present: hypoactive bowel sounds, soft, no peritoneal signs. Absent: distended, guarding, tenderness Additional comments: colostomy clean and dry. - Additional comments: urostomy bag with scant amount of bloody urine. Colostomy clean and dry. - Incison Incision: Present: intact, erythema Comments: A port - Neurological Exam Neurological exam: Present: alert, CN II-XII intact, oriented X3. Absent: facial droop, speech deficit - Skin Skin exam: Present: dry, intact. Absent: cyanosis, diaphoretic, rash Internal Medicine: Result - Labs CBC & Chem 7: 11/18/17 04:07 11/18/17 04:07 Labs: Short CBC 11/18/17 Range/Units 04:07 WBC 5.6 (4.3-11.1) K/mcL Hgb 7.5 L (11.5-15.4) g/dL Hct 24.5 L (35.3-44.9) % Plt Count 85 L (140-400) K/mcL BMP 11/18/17 04:07 Sodium 141 Potassium 4.4 Chloride 96 L Carbon Dioxide 31 H BUN 50 H Creatinine 5.08 H Glucose 128 H Calcium 8.6 - ABG Interpretation ABG results: PT/INR, D-dimer PT 16.2 Seconds (9.4-12.1) H 11/14/17 10:30 - Impressions Impressions Echocardiogram 11/17/17 14:33 Impressions: LVEF 60%. Mild LV concentric hypertrophy. Moderate left ventricular diastolic dysfunction. Normal right ventricular structure and function. Mildly sclerotic aortic valve leaflets. Mild mitral regurgitation. Mild-moderate, eccentric tricuspid regurgitation. No pulmonary hypertension. Valvular vegetations are not visualized on this study. Left Ventricular Wall Motion: Rest Echo Findings All wall segments showed normal motion. Findings: Study Quality * Technically adequate exam. ECG Findings * Normal sinus rhythm. Left Ventricle * LVEF 60%. * Normal LV chamber size. * Mild LV concentric hypertrophy. * Moderate left ventricular diastolic dysfunction. Right Ventricle * Normal right ventricular structure and function. Left Atrium * Severely dilated left atrium. Right Atrium * Normal right atrial size. Aortic Valve * No aortic regurgitation. * Aortic valve not well visualized. * No aortic stenosis. * Mildly sclerotic aortic valve leaflets. Mitral Valve * No mitral stenosis. * Mildly sclerotic mitral valve leaflets. * Mild mitral regurgitation. * Moderate mitral annular calcification Tricuspid Valve * Normal tricuspid valve structure. * Mild-moderate, eccentric tricuspid regurgitation. * Estimated RA pressure is 3 mmHg. * Estimated RVSP is 31 mmHg. * No pulmonary hypertension. Pulmonic Valve * Pulmonic valve is not well visualized. * No pulmonic stenosis. * No pulmonic regurgitation. Pulmonary Artery * Pulmonary artery not well visualized. Aorta * Normally sized aortic root. Pericardium * There is no pericardial effusion present. Interatrial Septum * No evidence of PFO by color Doppler. IVC * Normal IVC dimensions and inspiratory collapse. Tunnelled Catheter Removal 11/18/17 00:00 IMPRESSION: Successful subcutaneous Port-A-Cath removal D/ / Jet Johansen MD / Jet Johansen MD Interpreting Provider: Jet Johansen MD - VTE Documentation of Mechanical Device: Intermittent pneumatic compression device
--- NOTE | 2017-11-18 14:04 | Nephrology Progress Note ---
Date of Encounter: 11/18/17 Time of Encounter: 14:02 - Assessment and Plan (1) ESRD (end stage renal disease) on dialysis Current Visit: No Status: Chronic HD MWF. Renal vitamins. Renal dose medications. Renal diet. Additional dialysis and ultrafiltration as needed. . (2) Chest pain Current Visit: Yes Status: Acute This seems to be much better. Qualifiers: Chest pain type: unspecified Qualified Code(s): R07.9 - Chest pain, unspecified (3) Sepsis Current Visit: Yes Status: Acute Fungal septicemia. Secondary to pneumonia?? vs infected port vs other. Management per primary team and ID. Improving, but still with positive blood cultures. Qualifiers: Sepsis type: sepsis due to unspecified organism Qualified Code(s): A41.9 - Sepsis, unspecified organism (4) Pneumonia Current Visit: Yes Status: Suspected Respiratory status improving with antimicrobial. Management per primary team and ID. Qualifiers: Pneumonia type: due to unspecified organism Laterality: right Lung location: lower lobe of lung Qualified Code(s): J18.1 - Lobar pneumonia, unspecified organism (5) Anemia Current Visit: No Status: Chronic Monitor hemoglobin. Hemoglobin seems to be decreasing. May need transfusion. Qualifiers: Anemia type: unspecified type Qualified Code(s): D64.9 - Anemia, unspecified (6) Hyperphosphatemia Current Visit: No Status: Acute Continue phosphate binders. Subjective Principal diagnosis: hypoxic respiratiory failure 2/2 COPD exacerbation 2/2 PNA Interval history: Patient was seen while in dialysis. She is on room air. She states she still has some dyspnea and chest pain, but both of these are much better as compared to yesterday. She denies lightheadedness or dizziness. All of her other symptoms seem to be stable. Objective - Vital Signs Vital signs: Vital Signs Temp Pulse Resp BP Pulse Ox 11/18/17 11:34 97.6 F 73 17 137/60 99 11/18/17 11:26 18 99 11/18/17 08:06 97.4 F L 67 16 158/69 94 11/18/17 07:44 18 99 11/18/17 05:56 97.3 F L 74 17 135/53 94 11/18/17 03:18 16 94 11/18/17 00:51 97.5 F L 75 17 132/65 93 11/17/17 23:21 97.4 F L 73 17 127/74 94 11/17/17 16:24 16 95 11/17/17 16:12 98.3 F 78 16 106/48 95 11/17/17 14:20 133/85 11/17/17 14:05 140/79 Intake and Output 11/17/17 11/18/17 11/18/17 23:59 07:59 15:59 Intake Total 200 / 200 0 / 0 Output Total 0 / 0 Balance 200 / 200 0 / 0 Intake: IV Fluids 200 / 200 Zosyn Premix 3.375 GM/200 ML 3. 200 / 200 375 gm In 200 ml @ 50 mls/hr IVPB Q12H [facility] Rx#:[id number] Oral 0 / 0 Output: Urine 0 / 0 - General Appearance General appearance: Present: well-developed, chronically ill, frail EENT: Present: ATNC Neck: Present: supple Respiratory: Present: course breath sounds, rhonchi Cardiology: Present: no edema, regular rate, irregular rhythm Dialysis Vascular Access: Arteriovenous Graft thrill: Yes bruit: Yes Integumentary: Present: warm and dry Neurologic: Present: alert and oriented x3 Musculoskeletal: Present: erythema Psychiatric: Present: mood/affect appropriate - Lab 11/18/17 04:07 11/18/17 04:07 Most recent lab results Calcium 8.6 mg/dL (8.6-10.3) 11/18/17 04:07 Phosphorus 8.6 mg/dL (2.7-4.5) H 11/17/17 05:28 Magnesium 1.9 mg/dL (1.6-2.6) 11/17/17 05:28 - VTE Documentation of Mechanical Device: Intermittent pneumatic compression device Consult Discharge Plan - Plan Referrals: Na Johansen, GLASS SMOOTHER [Primary Care Provider] -
[2017-11-18 14:45] LABS: Albumin 3.4 g/dL (3.5-5.7); Albumin/Globulin Ratio 1.4 (1.1-2.2); Bilirubin,Direct 0.2 mg/dL (0.0-0.2); Bilirubin,Indirect 0.3 mg/dL (0.0-1.2); Bilirubin,Total 0.5 mg/dL (0.3-1.0); Globulin 2.5 g/dL (2.4-3.5); Total Protein 5.9 g/dL (6.4-8.9)
[2017-11-18] MEDS: Acetaminophen 325 MG TABLET PO PRN (16:23)
[2017-11-18] MEDS: Fluconazole 100 MG/50 ML 100 MG/50 ML BAG IVPB SCH (17:32)
[2017-11-18 20:59] LABS: Acinetobacter baumannii by PCR Not Detected (Not Detect); Candida albicans by PCR Not Detected (Not Detect); Candida glabrata by PCR Not Detected (Not Detect); Candida krusei by PCR Not Detected (Not Detect); Candida parapsilosis by PCR Not Detected (Not Detect); Candida tropicalis by PCR Not Detected (Not Detect); Enterococcus by PCR Not Detected (Not Detect); Escherichia coli by PCR Not Detected (Not Detect); Klebsiella oxytoca by PCR Not Detected (Not Detect); Klebsiella pneumoniae by PCR Not Detected (Not Detect); Pseudomonas aeruginosa by PCR Not Detected (Not Detect); Serratia marcescens by PCR Not Detected (Not Detect); Staphylococcus aureus by PCR Not Detected (Not Detect); Streptococcus agalactiae(B)PCR Not Detected (Not Detect); Streptococcus by PCR Not Detected (Not Detect); Streptococcus pneumoniae PCR Not Detected (Not Detect); Streptococcus pyogenes (A) PCR Not Detected (Not Detect)
[2017-11-19] MEDS: Piperacillin/Tazobactam 3.375 GM/200 ML BAG IVPB SCH ×2 (03:25→18:07)
[2017-11-19] MEDS: Ipratropium/Albuterol Neb 3 ML IH SCH ×5 (03:41→20:04)
[2017-11-19 04:44] LABS: Hematocrit 22.9 % (35.3-44.9); Immature Platelets 6.3 % (1.1-6.1); Mean Corpuscular HGB Conc 30.6 g/dL (31.6-35.5); Mean Corpuscular Hemoglobin 29.2 pg (28.0-33.3); Mean Corpuscular Volume 95.4 fL (83.0-100.0); Mean Platelet Volume 12.5 fL (9.4-12.4); Red Blood Count 2.4 M/mcL (3.82-4.97); Red Cell Distribution Width 16.2 % (11.5-14.5)
[2017-11-19 04:56] LABS: Albumin 3.2 g/dL (3.5-5.7); Albumin/Globulin Ratio 1.5 (1.1-2.2); Bilirubin,Direct 0.2 mg/dL (0.0-0.2); Bilirubin,Indirect 0.2 mg/dL (0.0-1.2); Bilirubin,Total 0.4 mg/dL (0.3-1.0); Calcium 7.9 mg/dL (8.6-10.3); Globulin 2.2 g/dL (2.4-3.5); Potassium 4.3 mEq/L (3.5-5.1); Total Protein 5.4 g/dL (6.4-8.9)
[2017-11-19] MEDS: *HR* HYDROcodone/Acet 7.5/325 mg TABLET PO PRN (05:59)
[2017-11-19] MEDS: *HR* Heparin 5,000 UNIT/ML VIAL SQ SCH (06:00)
[2017-11-19] MEDS: Ondansetron 4 MG/2 ML VIAL IVP PRN ×3 (06:00→18:07)
[2017-11-19] MEDS: Budesonide/Formoterol 80/4.5 MDI IH SCH ×2 (07:52→20:04)
[2017-11-19] MEDS: Calcium Acetate 667 MG CAPSULE PO SCH ×3 (08:03→18:07)
[2017-11-19] MEDS: Acetaminophen 325 MG TABLET PO PRN ×2 (08:03→20:37)
[2017-11-19] MEDS: predniSONE 20 MG TABLET PO SCH (08:03)
[2017-11-19] MEDS: Famotidine 20 MG TABLET PO SCH (08:04)
[2017-11-19] MEDS ORDERED: 0.9 % Sodium Chloride 250 ML IVC PRN (09:10)
[2017-11-19] MEDS ORDERED: 0.9 % Sodium Chloride 1,000 ML PRIME SCH (09:15)
--- NOTE | 2017-11-19 10:55 | Nephrology Progress Note ---
Date of Encounter: 11/19/17 Time of Encounter: 10:35 - Assessment and Plan (1) ESRD (end stage renal disease) on dialysis Current Visit: No Status: Chronic Temporary HD catheter removed Continue HD MWF. Renal vitamins. Renal dose medications. Renal diet. Additional dialysis and ultrafiltration as needed. (2) Anemia in CKD (chronic kidney disease) Current Visit: No Status: Chronic Patient reports new ecchymosis on bilateral arms and bleed in urostomy bag today. Patient reports multiple previous episodes of blood in urostomy. Ordered 2 units PRBC today during HD. Monitor hemoglobin. May need additional transfusion. Qualifiers: Chronic kidney disease stage: on chronic dialysis Qualified Code(s): N18.6 - End stage renal disease; D63.1 - Anemia in chronic kidney disease; D63.1 - Anemia in chronic kidney disease; Z99.2 - Dependence on renal dialysis; Z99.2 - Dependence on renal dialysis; Z99.2 - Dependence on renal dialysis; Z99.2 - Dependence on renal dialysis (3) Hyperphosphatemia Current Visit: No Status: Acute Continue phosphate binders. (4) Pneumonia Current Visit: Yes Status: Suspected Respiratory status improving with antimicrobial. Management per primary team and ID. Qualifiers: Pneumonia type: due to unspecified organism Laterality: right Lung location: lower lobe of lung Qualified Code(s): J18.1 - Lobar pneumonia, unspecified organism (5) Sepsis Current Visit: Yes Status: Acute Fungal septicemia. Secondary to pneumonia?? vs infected port vs other. Temporary HD catheter removed Management per primary team and ID. Improving, but still with positive blood cultures. May eventually need HD graft removal if indicated. Qualifiers: Sepsis type: sepsis due to unspecified organism Qualified Code(s): A41.9 - Sepsis, unspecified organism Subjective Principal diagnosis: hypoxic respiratiory failure 2/2 COPD exacerbation 2/2 PNA Interval history: Patient seen and examined. Patient reports new ecchymosis on bilateral arms and bleed in urostomy bag today. Patient reports multiple previous episodes of blood in urostomy. She reports mild RLQ pain and denies any other complaints. Patient had temporary HD catheter removed and will receive 2 units PRBC today during HD. Objective - Vital Signs Vital signs: Vital Signs Temp Pulse Resp BP Pulse Ox 11/19/17 07:52 18 92 11/19/17 07:12 98.1 F 74 18 137/62 92 11/19/17 06:09 97.8 F 86 17 124/81 96 11/19/17 03:42 20 94 11/19/17 01:37 97.8 F 72 18 133/63 93 11/18/17 23:25 20 98 11/18/17 23:00 97.6 F 81 22 136/66 91 11/18/17 19:58 20 98 11/18/17 16:23 98.0 F 72 18 155/70 99 11/18/17 16:18 18 99 11/18/17 11:34 97.6 F 73 17 137/60 99 11/18/17 11:26 18 99 Intake and Output 11/18/17 11/19/17 11/19/17 23:59 07:59 15:59 Intake Total 680 / 680 240 / 240 Output Total 500 / 500 0 / 0 Balance 180 / 180 240 / 240 Intake: IV Fluids 200 / 200 Zosyn Premix 3.375 GM/200 ML 3. 200 / 200 375 gm In 200 ml @ 50 mls/hr IVPB Q12H [facility] Rx#:[id number] Oral 480 / 480 240 / 240 Output: Urine 0 / 0 Emesis 500 / 500 Other: Meal Dinner Breakfast Percent of Meal Consumed 100% 95% Weight 51.7 kg Patient Weight 11/19/17 23:59 Weight 51.7 kg - General Appearance General appearance: Present: cachectic, chronically ill, frail EENT: Present: ATNC, PERRL, mucous membranes moist Additional Comments: no oral petechiae Neck: Present: no JVD, supple Respiratory: Present: course breath sounds, rhonchi Cardiology: Present: no edema, regular rate, irregular rhythm Dialysis Vascular Access: Arteriovenous Fistula thrill: Yes bruit: Yes Gastrointestinal: Present: normoactive bowel sounds, tenderness (RLQ urostomy bag with minimal blood, LLQ ostomy with liquid stool) Integumentary: Present: no rash, warm and dry, ecchymotic Additional Comments: multiple ecchymosis bilateral forearms Neurologic: Present: no focal deficit, alert and oriented x3 Musculoskeletal: Present: no deformities, no erythema, erythema Psychiatric: Present: mood/affect appropriate - Lab 11/19/17 04:29 11/19/17 04:29 Most recent lab results Calcium 7.9 mg/dL (8.6-10.3) L 11/19/17 04:29 Phosphorus 8.6 mg/dL (2.7-4.5) H 11/17/17 05:28 Magnesium 1.9 mg/dL (1.6-2.6) 11/17/17 05:28 - VTE Documentation of Mechanical Device: Intermittent pneumatic compression device Consult Discharge Plan - Plan Referrals: Na Johansen CNP [Primary Care Provider] - 12/01/17 1:00 pm (Please follow up as schedule...)
[2017-11-19] MEDS ORDERED: *HR* OxyCODONE/APAP 5/325 TABLET PO PRN (10:59)
--- NOTE | 2017-11-19 11:58 | Infectious Disease Progress No ---
Date of Encounter: 11/19/17 Time of Encounter: 11:55 - Assessment and Plan (1) Sepsis Current Visit: Yes Status: Acute Severe sepsis on admission. The patient had two SIRS criteria with hypotension responsive to IV fluids. Likely secondary to fungemia and PNA. Improved. The patient has been afebrile. Hypotension has resolved. Tachycardia has resolved. Peripheral blood cultures drawn 11/14/17 were positive 2/2 for Kelsey lusitaniae. Additional peripheral fungal blood culture drawn 11/16/17 is positive as well. Peripheral blood cultures drawn 11/17/16 are NGTD. A-port blood cultures drawn 11/17/17 are positive. Qualifiers: Sepsis type: sepsis due to unspecified organism Qualified Code(s): A41.9 - Sepsis, unspecified organism (2) Fungemia Current Visit: Yes Status: Acute Causative organism Kelsey lusitiniae. Source unclear, but the patient was recently on TPN given through her a-port. Her a-port was removed 11/18/17. Peripheral blood cultures drawn 11/14/17 were positive 2/2. Additional peripheral fungal blood culture drawn 11/16/17 is positive as well. No blood cultures were drawn from the patient's a-port before antifungals were started. Repeat blood cultures x 2 sets from the a-port are positive and x2 sets from a peripheral stick drawn 11/17/17 are NGTD. Continue fluconazole, 400mg IV daily on HD days only. Dosing discussed with Oliverio Jay. Opthalmology evaluation noted and appreciated. Baseline LFTs normal. Okay to consult VAT for EPIV placement prior to discharge. Duration of treatment depends on the clinical picture, but likely 14 days from the removal of the a-port. Treat through 12/02/17. Monitor weekly CBC and LFTs while on antifungals. Weekly EPIV care per protocol. (3) Pneumonia Current Visit: Yes Status: Suspected Location: Bilaterally. Causative organism unclear, but possible viral. RIP positive for HSV and Coronavirus. Previous sputum cultures positive for S. maltophilia, PSEA, and E. coli. CXR showed patchy airspace opacities bilaterally, more pronounced in the right lung base. Review of the medical record shows that the patient has had multiple recurrences of PNA over the past six months. She may benefit from formal pulmonology consult and possible bronchoscopy. Check S. pneumo and Legionella UAT.--> the patient has not made enough urine to send down. Get sputum culture if the patient is able to produce an adequate specimen. Continue Zosyn 3.375 grams IV Q12H (day 6). Duration of treatment depends on the clinical picture, but likely 7 days. Dose-adjust based on creatinine clearance. Qualifiers: Pneumonia type: due to unspecified organism Laterality: right Lung location: lower lobe of lung Qualified Code(s): J18.1 - Lobar pneumonia, unspecified organism (4) Bicytopenia Current Visit: No Status: Acute Etiology unclear, but possibly related to infection. Leukopenia has resolved, but thrombocytopenia is worse and patient now has blood in her urostomy Continue trend. Further workup and management per the primary team. (5) Chest pain Current Visit: Yes Status: Acute Likely secondary to PNA. Further workup and management per the primary team. Qualifiers: Chest pain type: unspecified Qualified Code(s): R07.9 - Chest pain, unspecified (6) Elevated troponin Current Visit: Yes Status: Chronic Likely chronic secondary to CKD. EKG shows no acute changes. Further workup and management per the primary team. (7) Acute respiratory failure with hypoxia Current Visit: No Status: Acute Likely secondary to PNA and COPD. Appears improved. (8) Atrial fibrillation with rapid ventricular response Current Visit: No Status: Acute Likely secondary to sepsis. Appears resolved. (9) Nausea and vomiting Current Visit: No Status: Chronic Likely secondary to short gut syndrome. Management per the primary team. Qualifiers: Vomiting type: unspecified Vomiting Intractability: non-intractable Qualified Code(s): R11.2 - Nausea with vomiting, unspecified (10) Abdominal pain Current Visit: No Status: Chronic Chronic, but the patient has developed bleeding from her Urostomy and had some bleeding from her colostomy yesterday. Consider GI/Urology consult. Further workup and management per the primary team. Qualifiers: Abdominal location: lower abdomen, unspecified Qualified Code(s): R10.30 - Lower abdominal pain, unspecified (11) Anemia in chronic kidney disease Current Visit: No Status: Chronic Qualifiers: Chronic kidney disease stage: on chronic dialysis Qualified Code(s): N18.6 - End stage renal disease; D63.1 - Anemia in chronic kidney disease; Z99.2 - Dependence on renal dialysis (12) COPD (chronic obstructive pulmonary disease) Current Visit: No Status: Chronic Qualifiers: COPD type: emphysema Emphysema type: panlobular Qualified Code(s): J43.1 - Panlobular emphysema (13) ESRD (end stage renal disease) on dialysis Current Visit: No Status: Chronic Nephrology consulted and following. 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 Recently started on TPN, but the patient could not tolerate. Likely contributing to the patient's poor nutritional status. Management per the primary team. (15) Tobacco abuse Current Visit: No Status: Chronic - Subjective Interval history: Patient seen and examined. No acute events noted overnight. Patient complains of midsternal, nonradiating, reproducible chest pain and shortness of breath with moist nonproductive cough. She reports chronic nausea and vomiting with by mouth intake. She reports liquid stool from her colostomy. She also reports new bloody urine in her urostomy. Blood in her colostomy has resolved. She complains of chronic bilateral leg pain. She denies oral thrush or new skin lesions. Infect Dis PN-Objective Data - Labs CBC & Chem 7: 11/19/17 04:29 11/19/17 04:29 Labs: Laboratory Results - last 24 hr 11/17/17 11/18/17 11/19/17 18:09 14:15 04:29 WBC 4.6 RBC 2.40 L Hgb 7.0 L Hct 22.9 L MCV 95.4 MCH 29.2 MCHC 30.6 L RDW 16.2 H Plt Count 64 L MPV 12.5 H Immature Plt Fraction 6.3 H Sodium Potassium Chloride Carbon Dioxide BUN Creatinine Est GFR ( Amer) Est GFR (Non-Af Amer) BUN/Creatinine Ratio Glucose Calculated Osmolality Calcium Total Bilirubin 0.5 Direct Bilirubin 0.2 Indirect Bilirubin 0.3 AST 20 ALT 18 Alkaline Phosphatase 49 Serum Total Protein 5.9 L Albumin 3.4 L Globulin 2.5 Albumin/Globulin Ratio 1.4 A. baumannii (PCR) Not Detected Kelsey albicans (PCR) Not Detected C. glabrata (PCR) Not Detected C. krusei (PCR) Not Detected C. parapsilosis (PCR) Not Detected C. tropicalis (PCR) Not Detected Enterobacteriac sp PCR Not Detected E. cloacae complex PCR Not Detected Enterococcus sp PCR Not Detected E. coli (PCR) Not Detected H. influenzae (PCR) Not Detected Klebsiella oxytoca PCR Not Detected Klebsiella pneumoniae Not Detected List. monocytogenes PCR Not Detected N. meningitidis (PCR) Not Detected Proteus species (PCR) Not Detected Serratia marcescens PCR Not Detected Staphylococcus sp PCR Not Detected Staph aureus (PCR) Not Detected mecA-Methicil Res Gene N/A Streptococcus sp PCR Not Detected Group A Strep DNA Not Detected Group B Strep (PCR) Not Detected Strep pneumoniae (PCR) Not Detected P. aeruginosa (PCR) Not Detected Yony/B-Vanco Res Genes N/A KPC (blaKPC) Detect PCR N/A Blood Type Antibody Screen Crossmatch 11/19/17 11/19/17 04:29 08:42 WBC RBC Hgb Hct MCV MCH MCHC RDW Plt Count MPV Immature Plt Fraction Sodium 140 Potassium 4.3 Chloride 92 L Carbon Dioxide 31 H BUN 72 H Creatinine 6.53 H Est GFR ( Amer) 8 L Est GFR (Non-Af Amer) 6 L BUN/Creatinine Ratio 11 Glucose 132 H Calculated Osmolality 313 H Calcium 7.9 L Total Bilirubin 0.4 Direct Bilirubin 0.2 Indirect Bilirubin 0.2 AST 17 ALT 19 Alkaline Phosphatase 42 Serum Total Protein 5.4 L Albumin 3.2 L Globulin 2.2 L Albumin/Globulin Ratio 1.5 A. baumannii (PCR) Kelsey albicans (PCR) C. glabrata (PCR) C. krusei (PCR) C. parapsilosis (PCR) C. tropicalis (PCR) Enterobacteriac sp PCR E. cloacae complex PCR Enterococcus sp PCR E. coli (PCR) H. influenzae (PCR) Klebsiella oxytoca PCR Klebsiella pneumoniae List. monocytogenes PCR N. meningitidis (PCR) Proteus species (PCR) Serratia marcescens PCR Staphylococcus sp PCR Staph aureus (PCR) mecA-Methicil Res Gene Streptococcus sp PCR Group A Strep DNA Group B Strep (PCR) Strep pneumoniae (PCR) P. aeruginosa (PCR) Yony/B-Vanco Res Genes KPC (blaKPC) Detect PCR Blood Type A POSITIVE Antibody Screen NEGATIVE Crossmatch See Detail Cultures: Cultures 11/17/17 17:31 Blood Culture - Preliminary Peripheral Venipuncture No growth. 11/17/17 17:31 Blood Culture - Preliminary Peripheral Venipuncture No growth. 11/17/17 18:09 Blood Culture - Preliminary Port System Yeast Species 11/16/17 05:05 Blood Fungal Culture - Final Peripheral Venipuncture Kelsey lusitaniae Serology 11/18/17 11/17/17 Range/Units 08:41 18:09 A. baumannii (PCR) Not Detected (Not Detect) Chlamy pneumoniae PCR Not Detected (Not Detect) Adenovirus (PCR) Not Detected (Not Detect) B. pertussis DNA (PCR) Not Detected (Not Detect) B.parapertussis DNA PCR Not Detected (Not Detect) Kelsey albicans (PCR) Not Detected (Not Detect) C. glabrata (PCR) Not Detected (Not Detect) C. krusei (PCR) Not Detected (Not Detect) C. parapsilosis (PCR) Not Detected (Not Detect) C. tropicalis (PCR) Not Detected (Not Detect) Coronavirus OC43 (PCR) Not Detected (Not Detect) Coronavirus HKU1 (PCR) DETECTED A (Not Detect) Coronavirus 229E (PCR) Not Detected (Not Detect) Coronavirus NL63 (PCR) Not Detected (Not Detect) Enterobacteriac sp PCR Not Detected (Not Detect) E. cloacae complex PCR Not Detected (Not Detect) Enterococcus sp PCR Not Detected (Not Detect) E. coli (PCR) Not Detected (Not Detect) H. influenzae (PCR) Not Detected (Not Detect) Human Metapneumovir PCR Not Detected (Not Detect) Influenza A (H1) PCR Not Detected (Not Detect) Influ A (H1N1/09) PCR Not Detected (Not Detect) Influenza A (H3) PCR Not Detected (Not Detect) Influenza A Untype (PCR) Not Detected (Not Detect) Influenza Type B (PCR) Not Detected (Not Detect) Klebsiella oxytoca PCR Not Detected (Not Detect) Klebsiella pneumoniae Not Detected (Not Detect) List. monocytogenes PCR Not Detected (Not Detect) M.pneumoniae DNA (PCR) Not Detected (Not Detect) N. meningitidis (PCR) Not Detected (Not Detect) Parainfluenza 1 (PCR) Not Detected (Not Detect) Parainfluenza 2 (PCR) Not Detected (Not Detect) Parainfluenza 3 (PCR) Not Detected (Not Detect) Parainfluenza 4 (PCR) Not Detected (Not Detect) Proteus species (PCR) Not Detected (Not Detect) RSV (PCR) DETECTED A (Not Detect) Entero/Rhino (PCR) Not Detected (Not Detect) Serratia marcescens PCR Not Detected (Not Detect) Staphylococcus sp PCR Not Detected (Not Detect) Staph aureus (PCR) Not Detected (Not Detect) mecA-Methicil Res Gene N/A (Not Detect) Streptococcus sp PCR Not Detected (Not Detect) Group A Strep DNA Not Detected (Not Detect) Group B Strep (PCR) Not Detected (Not Detect) Strep pneumoniae (PCR) Not Detected (Not Detect) P. aeruginosa (PCR) Not Detected (Not Detect) Yony/B-Vanco Res Genes N/A (Not Detect) KPC (blaKPC) Detect PCR N/A (Not Detect) Exam - Constitutional Vitals: Temp Pulse Resp BP Pulse Ox 98.0 F 73 18 118/67 93 11/19/17 11:06 11/19/17 11:06 11/19/17 11:20 11/19/17 11:06 11/19/17 11:20 General appearance: cooperative, no acute distress, thin - Head Head exam: Present: atraumatic, normal inspection, normocephalic - Eye Eye exam: Present: EOMI, normal appearance, PERRL Pupils: Present: normal accommodation - ENT ENT exam: Present: mucous membranes moist - Neck Neck exam: Present: normal inspection - Respiratory Respiratory exam: Present: rhonchi, wheezes. Absent: rales - Cardiovascular Cardiovascular exam: Present: RRR, +S1, +S2 - GI/Abdominal GI/Abdominal exam: Present: normal bowel sounds, soft, tenderness (generalized) . Absent: distended Additional comments: Colostomy noted to the LLQ with moderate amount of brown liquid stool noted. Urostomy noted to the RLQ with bloody urine noted. - Extremities Exam Extremities exam: Present: normal inspection. Absent: joint swelling, pedal edema, tenderness - Neurological Exam Neurological exam: Present: alert, oriented X3, no focal deficits - Psychiatric Psychiatric exam: Present: normal affect, normal mood - Skin Skin exam: Present: dry, intact, normal color, warm - Additional findings Additional findings: A-port explantation site noted to to the right upper chest with occlussive dressing intact. - VTE Documentation of Mechanical Device: Intermittent pneumatic compression device Consult Discharge Plan - Plan Referrals: Na Johansen, TYLER [Primary Care Provider] - 12/01/17 1:00 pm (Please follow up as schedule...) - Attending Attestation I examined this patient and my medical decision-making was reviewed with the Resident Physician. I agree with the documented findings, disposition and treatment plan as described except to the extent set forth below.
[2017-11-19] MEDS: *HR* OxyCODONE/APAP 5/325 TABLET PO PRN ×2 (12:11→18:07)
--- NOTE | 2017-11-19 14:34 | Urology - Consult Note ---
Date of Encounter: 11/19/17 Time of Encounter: 14:29 - Assessment and Plan (1) Hematuria Current Visit: Yes Status: Acute Assessment and plan: Patient's hematuria has come and gone for the past 6-8 months. She failed to follow-up after a consult was done in July 2017. At this time we will recommend to continue antimicrobial therapy. If her hematuria fails to improve we will consider CT abdomen and pelvis. Patient may require IV contrast to delineate the architecture of her urinary system but given her low urine output may be difficult to time because of low filtration of contrast. I will continue to follow along with the patient and primary team. Qualifiers: Hematuria type: gross Qualified Code(s): R31.0 - Gross hematuria Urology CN:HPI Consult date: 11/19/17 Reason for consult Urology: Gross Hematuria Requesting physician: Jim Burdick History of present illness: Vannessa is a 72 y/o female with a complex urological history. Patient now admitted and found to have fungus in her blood. She is a ESRD patient. Patient has had blood coming through her urostomy for the past 2 days. She produces minimal urine at this time. Past Med Surg Social Fam HX - Past Medical History Medical history: asthma, atrial fibrillation, COPD, GERD, hypertension, renal disease, thyroid disease, other (Short gut syndrome) Psychiatric history: no psych history - Past Surgical History Surgical History: appendectomy, cholecystectomy, colostomy, herniorrhaphy, hysterectomy, other (Colostomy 1991, cystectomy with urostomy 1986, ileocecal diversion 1985, SBR x 3 02/2012, Bowel resection and cecum with primary ileocolonic stapled anastatmosis 2011, closure small bowel perforation 2011, LUE AV shunt 2014) - Social History Smoking Status: Current every day smoker Packs per day: 1/2-1 Smokeless Tobacco Status: No Alcohol use: none Drug use: none - Family History Mother Adopted: No Living Status: Hx Family Cardiac Disorders: Yes (NC/ Stroke) Hx Family Respiratory Disorders: No Hx Family Cancer: No Hx Family GI Disorders: No Hx Family Endocrine Disorder: No Hx Family Neuromuscular Disorders: No Hx Family Neurologic Disorders: No Hx Family HEENT Disorders: No Hx Family Autoimmune Disorders: No Father Adopted: No Living Status: Hx Family Cardiac Disorders: Yes (NC) Hx Family Respiratory Disorders: No Hx Family Cancer: No Hx Family GI Disorders: No Hx Family Endocrine Disorder: No Hx Family Neuromuscular Disorders: No Hx Family Neurologic Disorders: No Hx Family HEENT Disorders: No Hx Family Autoimmune Disorders: No Brother Living Status: Still Living Hx Family Cardiac Disorders: Yes Hx Family Respiratory Disorders: No Hx Family Endocrine Disorder: Yes Medications and Allergies Cholecalciferol (Vitamin D3) [Vitamin D3] 5,000 unit PO DAILY #0 09/19/15 [ History] Ranitidine HCl [Zantac] 150 mg PO HS 09/19/15 [History] Cyanocobalamin (B-12) [Vitamin B12] 1,000 mcg IM QMONTH 02/21/17 [History] Levothyroxine Sodium [Synthroid] 300 mcg PO DAILY 02/21/17 [History] Mometasone/Formoterol [Dulera 100 Mcg/5 Mcg Inhaler] 2 puff IH BID 02/21/17 [ History] Lidocaine/Prilocaine CREAM [[place]mla] 1 appl TP AD PRN 06/30/17 [History] Renal Vitamin [Renal Caps Softgel] 1 mg PO DAILY 06/30/17 [History] Acetaminophen [Tylenol] 650 mg PO Q6HR PRN #20 tab 07/10/17 [Rx] Menthol [[place]] 3.2 mg MM Q4H PRN 07/16/17 [History] Diltiazem CD (24hr) [Cardizem CD] 120 mg PO DAILY cap.er.24h 09/14/17 [Rx] GuaiFENesin ER [Mucinex] 600 mg PO BID 5 Days #10 tbbp.12hr 09/14/17 [Rx] Nicotine Patch [Nicoderm] 21 mg TD DAILY #30 patch.td24 09/14/17 [Rx] Calcium Acetate [Phos-LO] 667 mg PO TIDWM 10/17/17 [History] Amitriptyline [Elavil] 50 mg PO HS tablet 10/24/17 [Rx] Benzonatate [Tessalon] 100 mg PO TID PRN #90 capsule 10/24/17 [Rx] Calcitriol [Rocaltrol] 0.25 mcg PO DAILY capsule 10/24/17 [Rx] HYDROcodone/Acet 7.5/325 mg [[place] 7.5-325 mg] 1 tab PO Q6HR PRN #10 tablet [Rx] Ipratropium/Albuterol Neb [Duoneb] 3 ml IH [id number] inhsol 10/24/17 [Rx] Furosemide [Lasix] 20 mg PO DAILY 10/28/17 [History] Ferrous Sulfate 325 mg PO DAILY 11/14/17 [History] Gabapentin [Neurontin] 100 mg PO TID 11/14/17 [History] 3 Allergy/AdvReac Type Severity Reaction Status Date / Time codeine AdvReac Severe Vomiting Verified 03/06/17 15:22 naproxen [From Naprosyn] AdvReac Severe Vomiting Verified 03/06/17 15:22 Review of Systems - Constitutional no chills, no fever(s) - EENT Nose, mouth and throat: no dizziness - Cardiovascular no chest pain - Gastrointestinal abdominal pain (She reports pain just below the right urostomy site) Exam Initial Vital Signs Temp Pulse Resp BP Pulse Ox 99.7 F H 96 18 102/56 95 11/14/17 09:16 11/14/17 09:16 11/14/17 09:16 11/14/17 09:16 11/14/17 09:16 - General physical appearance Present: well developed - Respiratory Present: normal respiratory effort - Abdomen Abdomen: Present: soft (Right lower quadrant urostomy with slightly bloody urine in bag) Urology Results - Labs 11/19/17 04:29 11/19/17 04:29 Abnormal lab results RBC 2.40 M/mcL (3.82-4.97) L 11/19/17 04:29 Hgb 7.0 g/dL (11.5-15.4) L 11/19/17 04:29 Hct 22.9 % (35.3-44.9) L 11/19/17 04:29 MCHC 30.6 g/dL (31.6-35.5) L 11/19/17 04:29 RDW 16.2 % (11.5-14.5) H 11/19/17 04:29 Plt Count 64 K/mcL (140-400) L 11/19/17 04:29 MPV 12.5 fL (9.4-12.4) H 11/19/17 04:29 Neutrophils # 9.2 K/mcL (1.6-8.9) H 11/14/17 10:30 Immature Plt Fraction 6.3 % (1.1-6.1) H 11/19/17 04:29 PT 16.2 Seconds (9.4-12.1) H 11/14/17 10:30 VBG pH 7.31 pH Units (7.32-7.42) L 11/17/17 06:13 VBG pO2 74 mmHg (25-50) H 11/17/17 06:13 Chloride 92 mEq/L (98-107) L 11/19/17 04:29 Carbon Dioxide 31 mEq/L (23-29) H 11/19/17 04:29 BUN 72 mg/dL (8-23) H 11/19/17 04:29 Creatinine 6.53 mg/dL (0.60-1.20) H 11/19/17 04:29 Est GFR ( Amer) 8 (> 60) L 11/19/17 04:29 Est GFR (Non-Af Amer) 6 (> 60) L 11/19/17 04:29 Glucose 132 mg/dL (70-105) H 11/19/17 04:29 Calculated Osmolality 313 (280-300) H 11/19/17 04:29 Calcium 7.9 mg/dL (8.6-10.3) L 11/19/17 04:29 Venous Ioniz Calcium 0.99 mmol/L (1.15-1.35) L 11/17/17 06:13 Phosphorus 8.6 mg/dL (2.7-4.5) H 11/17/17 05:28 Troponin I 0.04 ng/mL (< 0.04) H* 11/14/17 22:40 Serum Total Protein 5.4 g/dL (6.4-8.9) L 11/19/17 04:29 Albumin 3.2 g/dL (3.5-5.7) L 11/19/17 04:29 Globulin 2.2 g/dL (2.4-3.5) L 11/19/17 04:29 Coronavirus HKU1 (PCR) DETECTED (Not Detect) A 11/18/17 08:41 RSV (PCR) DETECTED (Not Detect) A 11/18/17 08:41 Diabetes panel 11/18/17 11/19/17 Range/Units 14:15 04:29 Sodium 140 (136-145) mEq/L Potassium 4.3 (3.5-5.1) mEq/L Chloride 92 L (98-107) mEq/L Carbon Dioxide 31 H (23-29) mEq/L BUN 72 H (8-23) mg/dL Creatinine 6.53 H (0.60-1.20) mg/dL Glucose 132 H (70-105) mg/dL Calcium 7.9 L (8.6-10.3) mg/dL AST 20 17 (13-39) Units/L ALT 18 19 (7-52) Units/L Alkaline Phosphatase 49 42 (34-104) Units/L Albumin 3.4 L 3.2 L (3.5-5.7) g/dL Calcium panel 11/18/17 11/19/17 Range/Units 14:15 04:29 Calcium 7.9 L (8.6-10.3) mg/dL Albumin 3.4 L 3.2 L (3.5-5.7) g/dL Pituitary panel 11/19/17 Range/Units 04:29 Sodium 140 (136-145) mEq/L Potassium 4.3 (3.5-5.1) mEq/L Chloride 92 L (98-107) mEq/L Carbon Dioxide 31 H (23-29) mEq/L BUN 72 H (8-23) mg/dL Creatinine 6.53 H (0.60-1.20) mg/dL Glucose 132 H (70-105) mg/dL Calcium 7.9 L (8.6-10.3) mg/dL Adrenal panel 11/18/17 11/19/17 Range/Units 14:15 04:29 Sodium 140 (136-145) mEq/L Potassium 4.3 (3.5-5.1) mEq/L Chloride 92 L (98-107) mEq/L Carbon Dioxide 31 H (23-29) mEq/L BUN 72 H (8-23) mg/dL Creatinine 6.53 H (0.60-1.20) mg/dL Glucose 132 H (70-105) mg/dL Calcium 7.9 L (8.6-10.3) mg/dL Total Bilirubin 0.5 0.4 (0.3-1.0) mg/dL AST 20 17 (13-39) Units/L ALT 18 19 (7-52) Units/L Alkaline Phosphatase 49 42 (34-104) Units/L Albumin 3.4 L 3.2 L (3.5-5.7) g/dL All other labs normal. Consult Discharge Plan - Plan Referrals: Na Johansen, TYLER [Primary Care Provider] - 12/01/17 1:00 pm (Please follow up as schedule...)
--- NOTE | 2017-11-19 15:00 | Internal Med Progress Note ---
Date of Encounter: 11/19/17 Time of Encounter: 14:57 - Assessment and plan (1) Sepsis Current Visit: Yes Status: Acute Assessment and plan: 72-year-old female with multiple medical comorbidities presented for sharp chest pain. She was found to be in severe sepsis upon admission. She is status post urostomy, status post colostomy, short bowel syndrome, end-stage renal disease on dialysis, atrial fibrillation not on anticoagulation due to chronic thrombocytopenia, chronic respiratory failure. she is admitted and being managed for sepsis secondary to bilateral pneumonia, acute respiratory failure with hypoxia. Incidental finding of fungemia in this admission. She continues to complain of cough, without sputum production. She also was found incidentally to have fractured a rib during her prior admission. Port-a-cath removed 11/18/17. Infectious Disease team has been consutled. Cultures show kelsey sp sensitive to azoles and caspofungin. Sepsis likely secondary to fungemia and pneumonia. Tachycardia and tachypnea resolved. Blood cultures 11/14 and 11/16 were both positive for Kelsey. Peripheral blood culture 11/17 is negative but A port cultures were positive. Continue with IV antibiotics and fluconazole. Monitor with AM Labs. Patient's vitals are stable. Qualifiers: Sepsis type: sepsis due to unspecified organism Qualified Code(s): A41.9 - Sepsis, unspecified organism (2) Fungemia Current Visit: Yes Status: Acute Assessment and plan: Repeat blood culture is + for Kelsey lusitaniae x3. Per ID consult, continue with IV fluconazole; dosing is based on dialysis schedule. Monitor LFTs. Ophthalmology reports no evidence of endophthalmitis in either eye and no further acute management needed at this time. A-port removed without complications 11/18/17. Continue wound care. (3) Chest pain Current Visit: Yes Status: Acute Assessment and plan: Physical exam reveals reproducible chest pain with touch and coughing. CP likely secondary to chostochrondritis. Need to avoid NSAIDs with her ESRD. [place] ineffective. Will change to Percocet prn. Qualifiers: Qualified Code(s): R07.1 - Chest pain on breathing; R07.81 - Pleurodynia (4) Pneumonia Current Visit: Yes Status: Suspected Assessment and plan: Continue Zosyn. Qualifiers: Pneumonia type: due to unspecified organism Laterality: right Lung location: lower lobe of lung Qualified Code(s): J18.1 - Lobar pneumonia, unspecified organism (5) Anemia in chronic kidney disease Current Visit: No Status: Chronic Assessment and plan: Today hemoglobin is 7.0 gradually declined. Patient will be transfused 2 units PRBC in dialysis today. Qualifiers: Chronic kidney disease stage: on chronic dialysis Qualified Code(s): N18.6 - End stage renal disease; D63.1 - Anemia in chronic kidney disease; Z99.2 - Dependence on renal dialysis (6) Colostomy care Current Visit: No Status: Chronic Assessment and plan: Patient's colostomy is pink and moist. Colostomy bag contains gas and no signs of infection noted. Continue with colostomy care. (7) COPD (chronic obstructive pulmonary disease) Current Visit: No Status: Chronic Assessment and plan: Continue with prednisone and duoneb. Qualifiers: COPD type: emphysema Emphysema type: panlobular Qualified Code(s): J43.1 - Panlobular emphysema (8) Elevated troponin Current Visit: Yes Status: Chronic Assessment and plan: Elevated troponin likely secondary to chronic comorbidities. No cardiac intervention required at this time. (9) ESRD (end stage renal disease) Current Visit: No Status: Chronic (10) Hematuria Current Visit: Yes Status: Acute Assessment and plan: Possibly related to worsening thrombocytopenia. Urology consulted. Cycle H&H after transfusion 2 units PRBC 11/19. Qualifiers: Hematuria type: gross Qualified Code(s): R31.0 - Gross hematuria (11) Severe malnutrition Current Visit: No Status: Chronic Assessment and plan: Patient was on TPN on last admission and no longer desirous of artificial nutrition. She is able to swallow fluids and solids. Continue to encourage PO intake. - Subjective Interval history: Patient has complaints of hematuria in urostomy bag. Urology consulted. Patient has persisting chest wall pain from cough. [place] ineffective. She denies fevers/chills. Cough persists. - Constitutional Vitals: Temp Pulse Resp BP Pulse Ox 97.3 F L 66 17 117/43 93 11/19/17 14:45 11/19/17 14:45 11/19/17 14:45 11/19/17 14:45 11/19/17 11:20 General appearance: Present: A&O X 3, underweight, answers questions appropriately Exam: CVS: irregularly irregular rhythm, normal rate Lungs: course transmitted upper airway congestion sounds, decreased breath sounds at the bases, coarse breath sounds and wheezing throughout Ext: no edema. Internal Medicine: Result - Labs CBC & Chem 7: 11/19/17 04:29 11/19/17 04:29 Labs: Short CBC 11/19/17 Range/Units 04:29 WBC 4.6 (4.3-11.1) K/mcL Hgb 7.0 L (11.5-15.4) g/dL Hct 22.9 L (35.3-44.9) % Plt Count 64 L (140-400) K/mcL BMP 11/19/17 04:29 Sodium 140 Potassium 4.3 Chloride 92 L Carbon Dioxide 31 H BUN 72 H Creatinine 6.53 H Glucose 132 H Calcium 7.9 L Liver Function 11/19/17 Range/Units 04:29 Total Bilirubin 0.4 (0.3-1.0) mg/dL Direct Bilirubin 0.2 (0.0-0.2) mg/dL AST 17 (13-39) Units/L ALT 19 (7-52) Units/L Alkaline Phosphatase 42 (34-104) Units/L Albumin 3.2 L (3.5-5.7) g/dL - ABG Interpretation ABG results: PT/INR, D-dimer PT 16.2 Seconds (9.4-12.1) H 11/14/17 10:30 - VTE Documentation of Mechanical Device: Intermittent pneumatic compression device Consult Discharge Plan - Plan Referrals: Na Johansen, TYLER [Primary Care Provider] - 12/01/17 1:00 pm (Please follow up as schedule...)
[2017-11-19] MEDS: Fluconazole 400 MG/200 ML 400 MG/200 ML BAG IVPB SCH (18:08)
[2017-11-19 18:56] LABS: Hematocrit 28.7 % (35.3-44.9)
[2017-11-19 18:57] LABS: Hemoglobin 9.2 g/dL (11.5-15.4)
[2017-11-20] MEDS: Ipratropium/Albuterol Neb 3 ML IH SCH ×3 (00:17→07:36)
[2017-11-20] MEDS: *HR* OxyCODONE/APAP 5/325 TABLET PO PRN ×3 (00:29→16:59)
[2017-11-20] MEDS: Ondansetron 4 MG/2 ML VIAL IVP PRN ×3 (00:33→13:13)
[2017-11-20] MEDS: Piperacillin/Tazobactam 3.375 GM/200 ML BAG IVPB SCH ×2 (04:09→16:59)
[2017-11-20 06:41] LABS: Hemoglobin 8.4 g/dL (11.5-15.4)
[2017-11-20 06:43] LABS: Hematocrit 27.2 % (35.3-44.9); Immature Platelets 6.9 % (1.1-6.1); Mean Corpuscular HGB Conc 30.9 g/dL (31.6-35.5); Mean Corpuscular Hemoglobin 29.2 pg (28.0-33.3); Mean Corpuscular Volume 94.4 fL (83.0-100.0); Mean Platelet Volume 10.8 fL (9.4-12.4); Red Blood Count 2.88 M/mcL (3.82-4.97); Red Cell Distribution Width 18.3 % (11.5-14.5)
[2017-11-20] MEDS: Budesonide/Formoterol 80/4.5 MDI IH SCH ×2 (07:36→23:36)
--- NOTE | 2017-11-20 07:40 | Nephrology Progress Note ---
Date of Encounter: 11/20/17 Time of Encounter: 07:40 - Assessment and Plan (1) ESRD (end stage renal disease) on dialysis Current Visit: No Status: Chronic Temporary HD catheter removed Continue HD MWF. Renal vitamins. Renal dose medications. Renal diet. Additional dialysis and ultrafiltration as needed. (2) Anemia in CKD (chronic kidney disease) Current Visit: No Status: Chronic Patient reports new ecchymosis on bilateral arms and bleed in urostomy bag today. Patient reports multiple previous episodes of blood in urostomy. Ordered 2 units PRBC today during HD. Monitor hemoglobin. May need additional transfusion. Qualifiers: Chronic kidney disease stage: on chronic dialysis Qualified Code(s): N18.6 - End stage renal disease; D63.1 - Anemia in chronic kidney disease; D63.1 - Anemia in chronic kidney disease; Z99.2 - Dependence on renal dialysis; Z99.2 - Dependence on renal dialysis; Z99.2 - Dependence on renal dialysis; Z99.2 - Dependence on renal dialysis (3) Hyperphosphatemia Current Visit: No Status: Acute Continue phosphate binders. (4) Pneumonia Current Visit: Yes Status: Suspected Respiratory status improving with antimicrobial. Management per primary team and ID. Qualifiers: Pneumonia type: due to unspecified organism Laterality: right Lung location: lower lobe of lung Qualified Code(s): J18.1 - Lobar pneumonia, unspecified organism (5) Sepsis Current Visit: Yes Status: Acute Fungal septicemia. Secondary to pneumonia?? vs infected port vs other. Temporary HD catheter removed Management per primary team and ID. Improving, but still with positive blood cultures. May eventually need HD graft removal if indicated. Qualifiers: Sepsis type: sepsis due to unspecified organism Qualified Code(s): A41.9 - Sepsis, unspecified organism Subjective Principal diagnosis: hypoxic respiratiory failure 2/2 COPD exacerbation 2/2 PNA Interval history: Patient seen and examined. Patient reports new ecchymosis on bilateral arms and bleed in urostomy bag today. Patient reports multiple previous episodes of blood in urostomy. She reports mild RLQ pain and denies any other complaints. Patient had temporary HD catheter removed and will receive 2 units PRBC today during HD. Objective - Vital Signs Vital signs: Vital Signs Temp Pulse Resp BP Pulse Ox 11/20/17 04:17 98.5 F 75 16 129/53 94 11/20/17 03:53 14 99 11/20/17 00:24 16 92 11/19/17 23:45 97.8 F 71 16 131/70 92 11/19/17 20:06 16 92 11/19/17 19:11 97.6 F 79 16 113/50 91 11/19/17 18:28 85 134/65 11/19/17 18:12 97.2 F L 16 105/47 11/19/17 17:55 121/47 11/19/17 17:40 125/50 11/19/17 17:25 113/61 11/19/17 17:10 148/53 11/19/17 16:55 134/31 11/19/17 16:40 122/73 11/19/17 16:25 131/43 11/19/17 16:20 97.6 F 70 16 141/43 11/19/17 16:10 140/49 11/19/17 15:55 142/60 11/19/17 15:42 97.3 F L 68 18 146/43 11/19/17 15:40 139/39 11/19/17 15:27 97.6 F 70 18 129/44 11/19/17 15:25 144/77 11/19/17 15:20 97.5 F L 66 16 139/32 11/19/17 15:10 125/41 11/19/17 15:00 97.4 F L 68 18 137/48 11/19/17 14:55 126/34 11/19/17 14:45 97.3 F L 66 17 117/43 11/19/17 14:40 119/33 11/19/17 14:25 97.6 F 18 134/45 11/19/17 11:20 18 93 11/19/17 11:06 98.0 F 73 17 118/67 91 11/19/17 07:52 18 92 Intake and Output 11/19/17 11/19/17 11/20/17 15:59 23:59 07:59 Intake Total 2130 / 2130 550 / 550 200 / 200 Output Total 0 / 0 1300 / 1300 Balance 2130 / 2130 -750 / -750 200 / 200 Intake: IV Fluids 200 / 200 200 / 200 Diflucan Premix 400 MG/200 ML 200 / 200 400 mg In 200 ml @ 200 mls/hr IVPB MOWEFR@1800 [facility] Rx#: [id number] Zosyn Premix 3.375 GM/200 ML 3. 200 / 200 375 gm In 200 ml @ 50 mls/hr IVPB Q12H [facility] Rx#:[id number] Oral 480 / 480 Blood Product 1050 / 1050 350 / 350 Rbcs Leuko Poor As-1 Unit 350 / 350 350 / 350 [id number] Rbcs Leuko Poor As-1 Unit 700 / 700 [id number] Intake, Rinseback and Flushes 600 / 600 Output: Urine 0 / 0 0 / 0 Total Dialysis (HD) Output 1300 / 1300 Other: Meal Lunch Percent of Meal Consumed 100% Weight 52.3 kg Hemodialysis Net Fluid Removed 576 0 (mL) Patient Weight 11/20/17 23:59 Weight 52.3 kg - Lab 11/20/17 05:57 11/19/17 04:29 Most recent lab results Calcium 7.9 mg/dL (8.6-10.3) L 11/19/17 04:29 Phosphorus 8.6 mg/dL (2.7-4.5) H 11/17/17 05:28 Magnesium 1.9 mg/dL (1.6-2.6) 11/17/17 05:28 - VTE Documentation of Mechanical Device: Intermittent pneumatic compression device Consult Discharge Plan - Plan Referrals: Na Johansen CNP [Primary Care Provider] - 12/01/17 1:00 pm (Please follow up as schedule...)
[2017-11-20 07:57] LABS: Albumin 3.2 g/dL (3.5-5.7); Albumin/Globulin Ratio 1.5 (1.1-2.2); Bilirubin,Direct 0.2 mg/dL (0.0-0.2); Bilirubin,Indirect 0.2 mg/dL (0.0-1.2); Bilirubin,Total 0.4 mg/dL (0.3-1.0); Globulin 2.1 g/dL (2.4-3.5); Total Protein 5.3 g/dL (6.4-8.9)
[2017-11-20 07:58] LABS: Calcium 8.1 mg/dL (8.6-10.3); Potassium 4.4 mEq/L (3.5-5.1)
--- NOTE | 2017-11-20 09:42 | Infectious Disease Progress No ---
Date of Encounter: 11/20/17 Time of Encounter: 09:39 - Assessment and Plan (1) Sepsis Current Visit: Yes Status: Acute Severe sepsis on admission. The patient had two SIRS criteria with hypotension responsive to IV fluids. Likely secondary to fungemia and PNA. Improved. The patient has been afebrile. Hypotension has resolved. Tachycardia has resolved. Peripheral blood cultures drawn 11/14/17 were positive 2/2 for Kelsey lusitaniae. Additional peripheral fungal blood culture drawn 11/16/17 is positive as well. Peripheral blood cultures drawn 11/17/16 are NGTD. A-port blood cultures drawn 11/17/17 are positive. Qualifiers: Sepsis type: sepsis due to unspecified organism Qualified Code(s): A41.9 - Sepsis, unspecified organism (2) Fungemia Current Visit: Yes Status: Acute Causative organism Kelsey lusitiniae. Source unclear, but the patient was recently on TPN given through her a-port. Her a-port was removed 11/18/17. Peripheral blood cultures drawn 11/14/17 were positive 2/2. Additional peripheral fungal blood culture drawn 11/16/17 is positive as well. No blood cultures were drawn from the patient's a-port before antifungals were started. Repeat blood cultures x 2 sets from the a-port are positive and x2 sets from a peripheral stick drawn 11/17/17 are NGTD. Continue fluconazole, 400mg IV daily on HD days only. Dosing discussed with Oliverio Jay. Opthalmology evaluation noted and appreciated. Baseline LFTs normal. Okay to consult VAT for EPIV placement prior to discharge unless fluconazole can be given at the HD unit. Will discuss with nephrology. Duration of treatment depends on the clinical picture, but likely 14 days from the removal of the a-port. Treat through 12/02/17. Monitor weekly CBC and LFTs while on antifungals. Weekly EPIV care per protocol if needed. No additional recommendations from the ID team. Will sign off. Please re- consult PRN. (3) Pneumonia Current Visit: Yes Status: Suspected Location: Bilaterally. Causative organism unclear, but possible viral. RIP positive for HSV and Coronavirus. Previous sputum cultures positive for S. maltophilia, PSEA, and E. coli. CXR showed patchy airspace opacities bilaterally, more pronounced in the right lung base. Review of the medical record shows that the patient has had multiple recurrences of PNA over the past six months. She may benefit from formal pulmonology consult and possible bronchoscopy. Check S. pneumo and Legionella UAT.--> will ask nursing to send down today as it appears there is enough in the bag. Get sputum culture if the patient is able to produce an adequate specimen. Continue Zosyn 3.375 grams IV Q12H (day 7). Discontinue after last dose today. Duration of treatment depends on the clinical picture, but likely 7 days. Dose-adjust based on creatinine clearance. Qualifiers: Pneumonia type: due to unspecified organism Laterality: right Lung location: lower lobe of lung Qualified Code(s): J18.1 - Lobar pneumonia, unspecified organism (4) Bicytopenia Current Visit: No Status: Acute Etiology unclear, but possibly related to infection. Leukopenia has resolved, but thrombocytopenia is worse and patient now has blood in her urostomy. Apparently this is a chronic issue for this patient. Continue trend. Further workup and management per the primary team. (5) Chest pain Current Visit: Yes Status: Acute Likely secondary to PNA. Further workup and management per the primary team. Qualifiers: Chest pain type: unspecified Qualified Code(s): R07.9 - Chest pain, unspecified (6) Elevated troponin Current Visit: Yes Status: Chronic Likely chronic secondary to CKD. EKG shows no acute changes. Further workup and management per the primary team. (7) Acute respiratory failure with hypoxia Current Visit: No Status: Resolved Likely secondary to PNA and COPD. Appears improved. (8) Atrial fibrillation with rapid ventricular response Current Visit: No Status: Acute Likely secondary to sepsis. Appears resolved. (9) Nausea and vomiting Current Visit: No Status: Chronic Likely secondary to short gut syndrome. Management per the primary team. Qualifiers: Vomiting type: unspecified Vomiting Intractability: non-intractable Qualified Code(s): R11.2 - Nausea with vomiting, unspecified (10) Abdominal pain Current Visit: No Status: Chronic Chronic, but the patient has developed bleeding from her Urostomy and had some bleeding from her colostomy yesterday. Urology consulted. Appreciate recommendations. Further workup and management per the primary team. Qualifiers: Abdominal location: lower abdomen, unspecified Qualified Code(s): R10.30 - Lower abdominal pain, unspecified (11) Anemia in chronic kidney disease Current Visit: No Status: Chronic Management per the primary and nephrology teams. Got 2 units PRBCs with HD yesterday. Qualifiers: Chronic kidney disease stage: on chronic dialysis Qualified Code(s): N18.6 - End stage renal disease; D63.1 - Anemia in chronic kidney disease; Z99.2 - Dependence on renal dialysis (12) COPD (chronic obstructive pulmonary disease) Current Visit: No Status: Chronic Qualifiers: COPD type: emphysema Emphysema type: panlobular Qualified Code(s): J43.1 - Panlobular emphysema (13) ESRD (end stage renal disease) on dialysis Current Visit: No Status: Chronic Nephrology consulted and following. 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 Recently started on TPN, but the patient could not tolerate. Likely contributing to the patient's poor nutritional status. Management per the primary team. (15) Tobacco abuse Current Visit: No Status: Chronic (16) Gross hematuria Current Visit: No Status: Acute Chronic and intermittent. Etiology likely secondary to thrombocytopenia. Urology consulted and following. - Subjective Interval history: Patient seen and examined. No acute events noted overnight. Patient resting quietly in bed with eyes closed, but awakens easily and complains of pain "all over" this morning. She continues to report shortness of breath with moist nonproductive cough, but does not appear to be in any acute distress. She reports chronic nausea and vomiting with by mouth intake. She reports liquid stool from her colostomy. She also reports continued bloody urine in her urostomy. Blood in her colostomy has resolved. She reports little PO intake this morning due to nausea and vomiting. She denies oral thrush or new skin lesions. Infect Dis PN-Objective Data - Labs CBC & Chem 7: 11/21/17 06:15 11/21/17 06:15 Labs: Laboratory Results - last 24 hr 11/17/17 11/19/17 11/19/17 17:31 08:42 18:15 WBC RBC Hgb 9.2 L D Hct 28.7 L MCV MCH MCHC RDW Plt Count MPV Immature Plt Fraction Sodium Potassium Chloride Carbon Dioxide BUN Creatinine Est GFR ( Amer) Est GFR (Non-Af Amer) BUN/Creatinine Ratio Glucose Calculated Osmolality Calcium Total Bilirubin Direct Bilirubin Indirect Bilirubin AST ALT Alkaline Phosphatase Serum Total Protein Albumin Globulin Albumin/Globulin Ratio Beta-(1,3)-D-Glucan 470 B-(1,3)-D-Glucan Intrp POSITIVE A Blood Type A POSITIVE Antibody Screen NEGATIVE Crossmatch See Detail 11/20/17 11/20/17 11/20/17 05:57 05:57 05:57 WBC 5.1 RBC 2.88 L Hgb 8.4 L Hct 27.2 L MCV 94.4 MCH 29.2 MCHC 30.9 L RDW 18.3 H Plt Count 62 L MPV 10.8 Immature Plt Fraction 6.9 H Sodium 141 Potassium 4.4 Chloride 103 Carbon Dioxide 28 BUN 37 H Creatinine 3.62 H Est GFR ( Amer) 15 L Est GFR (Non-Af Amer) 12 L BUN/Creatinine Ratio 10 Glucose 92 Calculated Osmolality 300 Calcium 8.1 L Total Bilirubin 0.4 Direct Bilirubin 0.2 Indirect Bilirubin 0.2 AST 13 ALT 17 Alkaline Phosphatase 42 Serum Total Protein 5.3 L Albumin 3.2 L Globulin 2.1 L Albumin/Globulin Ratio 1.5 Beta-(1,3)-D-Glucan B-(1,3)-D-Glucan Intrp Blood Type Antibody Screen Crossmatch Cultures: Cultures 11/19/17 10:10 Catheter Tip Culture - Preliminary Intravenous or Arterial Cath No growth. 11/17/17 17:31 Blood Culture - Preliminary Peripheral Venipuncture No growth. 11/17/17 17:31 Blood Culture - Preliminary Peripheral Venipuncture No growth. 11/17/17 18:09 Blood Culture - Preliminary Port System Yeast Species 11/16/17 05:05 Blood Fungal Culture - Final Peripheral Venipuncture Kelsey lusitaniae Serology 11/18/17 11/17/17 11/17/17 Range/Units 08:41 18:09 17:31 A. baumannii (PCR) Not Detected (Not Detect) Chlamy pneumoniae PCR Not Detected (Not Detect) Adenovirus (PCR) Not Detected (Not Detect) B. pertussis DNA (PCR) Not Detected (Not Detect) B.parapertussis DNA PCR Not Detected (Not Detect) Kelsey albicans (PCR) Not Detected (Not Detect) C. glabrata (PCR) Not Detected (Not Detect) C. krusei (PCR) Not Detected (Not Detect) C. parapsilosis (PCR) Not Detected (Not Detect) C. tropicalis (PCR) Not Detected (Not Detect) Coronavirus OC43 (PCR) Not Detected (Not Detect) Coronavirus HKU1 (PCR) DETECTED A (Not Detect) Coronavirus 229E (PCR) Not Detected (Not Detect) Coronavirus NL63 (PCR) Not Detected (Not Detect) Enterobacteriac sp PCR Not Detected (Not Detect) E. cloacae complex PCR Not Detected (Not Detect) Enterococcus sp PCR Not Detected (Not Detect) E. coli (PCR) Not Detected (Not Detect) H. influenzae (PCR) Not Detected (Not Detect) Human Metapneumovir PCR Not Detected (Not Detect) Influenza A (H1) PCR Not Detected (Not Detect) Influ A (H1N1/09) PCR Not Detected (Not Detect) Influenza A (H3) PCR Not Detected (Not Detect) Influenza A Untype (PCR) Not Detected (Not Detect) Influenza Type B (PCR) Not Detected (Not Detect) Klebsiella oxytoca PCR Not Detected (Not Detect) Klebsiella pneumoniae Not Detected (Not Detect) List. monocytogenes PCR Not Detected (Not Detect) M.pneumoniae DNA (PCR) Not Detected (Not Detect) N. meningitidis (PCR) Not Detected (Not Detect) Parainfluenza 1 (PCR) Not Detected (Not Detect) Parainfluenza 2 (PCR) Not Detected (Not Detect) Parainfluenza 3 (PCR) Not Detected (Not Detect) Parainfluenza 4 (PCR) Not Detected (Not Detect) Proteus species (PCR) Not Detected (Not Detect) RSV (PCR) DETECTED A (Not Detect) Entero/Rhino (PCR) Not Detected (Not Detect) Serratia marcescens PCR Not Detected (Not Detect) Staphylococcus sp PCR Not Detected (Not Detect) Staph aureus (PCR) Not Detected (Not Detect) mecA-Methicil Res Gene N/A (Not Detect) Streptococcus sp PCR Not Detected (Not Detect) Group A Strep DNA Not Detected (Not Detect) Group B Strep (PCR) Not Detected (Not Detect) Strep pneumoniae (PCR) Not Detected (Not Detect) P. aeruginosa (PCR) Not Detected (Not Detect) Yony/B-Vanco Res Genes N/A (Not Detect) KPC (blaKPC) Detect PCR N/A (Not Detect) Beta-(1,3)-D-Glucan 470 pg/mL B-(1,3)-D-Glucan Intrp POSITIVE A (Negative) Exam - Constitutional Vitals: Temp Pulse Resp BP Pulse Ox 98.5 F 75 16 129/53 94 11/20/17 04:17 11/20/17 04:17 11/20/17 04:17 11/20/17 04:11/20/17 04:17 General appearance: cooperative, no acute distress, thin - Head Head exam: Present: atraumatic, normal inspection, normocephalic - Eye Eye exam: Present: EOMI, normal appearance, PERRL Pupils: Present: normal accommodation - ENT ENT exam: Present: mucous membranes moist - Neck Neck exam: Present: normal inspection - Respiratory Respiratory exam: Present: rhonchi (throughout), wheezes (Coarse, inspiratory and expiratory throughout). Absent: CTAB, rales, respiratory distress - Cardiovascular Cardiovascular exam: Present: irregular rhythm. Absent: tachycardia - GI/Abdominal GI/Abdominal exam: Present: normal bowel sounds, soft, tenderness (generalized) . Absent: distended Additional comments: Urostomy noted to the RLQ with bloody urine noted in the collection device. Colostomy noted to the LLQ with non-bloody liquid brown stool noted in the collection device. - Extremities Exam Extremities exam: Present: normal inspection. Absent: joint swelling, pedal edema, tenderness - Neurological Exam Neurological exam: Present: alert, oriented X3, no focal deficits - Psychiatric Psychiatric exam: Present: normal affect, normal mood - Skin Skin exam: Present: dry, intact, normal color, warm - Additional findings Additional findings: Previous a-port site noted to the right upper chest with pressure dressing intact. - VTE Documentation of Mechanical Device: Intermittent pneumatic compression device Consult Discharge Plan - Plan Referrals: Na Johansen, LO[employer]ER APPRENTICE [Primary Care Provider] - 12/01/17 1:00 pm (Please follow up as schedule...) - Attending Attestation I examined this patient and my medical decision-making was reviewed with the Resident Physician. I agree with the documented findings, disposition and treatment plan as described except to the extent set forth below. discussed with Dr. Medina
[2017-11-20] MEDS: predniSONE 20 MG TABLET PO SCH (10:00)
[2017-11-20] MEDS: Calcium Acetate 667 MG CAPSULE PO SCH ×3 (10:01→16:59)
--- NOTE | 2017-11-20 10:17 | Nephrology Progress Note ---
Date of Encounter: 11/20/17 Time of Encounter: 10:15 - Assessment and Plan (1) ESRD (end stage renal disease) on dialysis Current Visit: No Status: Chronic Plan for HD tomorrow Continue renal diet Continue strict I/Os Avoid nephrotoxins if possible (2) Anemia in CKD (chronic kidney disease) Current Visit: No Status: Chronic Hgb 8.4 Goal hgb 10-11 Transfuse per parameters Qualifiers: Chronic kidney disease stage: on chronic dialysis Qualified Code(s): N18.6 - End stage renal disease; D63.1 - Anemia in chronic kidney disease; D63.1 - Anemia in chronic kidney disease; Z99.2 - Dependence on renal dialysis; Z99.2 - Dependence on renal dialysis; Z99.2 - Dependence on renal dialysis; Z99.2 - Dependence on renal dialysis (3) Fungemia Current Visit: Yes Status: Acute per primary/ID teams (4) Sepsis Current Visit: Yes Status: Acute per primary/ID teams Qualifiers: Sepsis type: sepsis due to unspecified organism Qualified Code(s): A41.9 - Sepsis, unspecified organism Subjective Principal diagnosis: hypoxic respiratiory failure 2/2 COPD exacerbation 2/2 PNA Interval history: Patient seen and examined. States she is not feeling well at all, complains of pain at site of where port was removed. Objective - Vital Signs Vital signs: Vital Signs Temp Pulse Resp BP Pulse Ox 11/20/17 04:17 98.5 F 75 16 129/53 94 11/20/17 03:53 14 99 11/20/17 00:24 16 92 11/19/17 23:45 97.8 F 71 16 131/70 92 11/19/17 20:06 16 92 11/19/17 19:11 97.6 F 79 16 113/50 91 11/19/17 18:28 85 134/65 11/19/17 18:12 97.2 F L 16 105/47 11/19/17 17:55 121/47 11/19/17 17:40 125/50 11/19/17 17:25 113/61 11/19/17 17:10 148/53 11/19/17 16:55 134/31 11/19/17 16:40 122/73 11/19/17 16:25 131/43 11/19/17 16:20 97.6 F 70 16 141/43 11/19/17 16:10 140/49 11/19/17 15:55 142/60 11/19/17 15:42 97.3 F L 68 18 146/43 11/19/17 15:40 139/39 11/19/17 15:27 97.6 F 70 18 129/44 11/19/17 15:25 144/77 11/19/17 15:20 97.5 F L 66 16 139/32 11/19/17 15:10 125/41 11/19/17 15:00 97.4 F L 68 18 137/48 11/19/17 14:55 126/34 11/19/17 14:45 97.3 F L 66 17 117/43 11/19/17 14:40 119/33 11/19/17 14:25 97.6 F 18 134/45 11/19/17 11:20 18 93 11/19/17 11:06 98.0 F 73 17 118/67 91 Intake and Output 11/19/17 11/20/17 11/20/17 23:59 07:59 15:59 Intake Total 550 / 550 200 / 200 120 / 120 Output Total 1300 / 1300 Balance -750 / -750 200 / 200 120 / 120 Intake: IV Fluids 200 / 200 200 / 200 Diflucan Premix 400 MG/200 ML 200 / 200 400 mg In 200 ml @ 200 mls/hr IVPB MOWEFR@1800 [facility] Rx#: [id number] Zosyn Premix 3.375 GM/200 ML 3. 200 / 200 375 gm In 200 ml @ 50 mls/hr IVPB Q12H [facility] Rx#:[id number] Oral 120 / 120 Blood Product 350 / 350 Rbcs Leuko Poor As-1 Unit 350 / 350 [id number] Output: Urine 0 / 0 Total Dialysis (HD) Output 1300 / 1300 Other: Percent of Meal Consumed 15% Weight 52.3 kg Hemodialysis Net Fluid Removed 0 (mL) Patient Weight 11/20/17 23:59 Weight 52.3 kg - General Appearance General appearance: Present: cachectic, chronically ill, frail EENT: Present: ATNC, mucous membranes moist, hearing intact, vision intact Neck: Present: supple Respiratory: Present: course breath sounds, rhonchi Cardiology: Present: no edema Dialysis Vascular Access: Arteriovenous Graft Gastrointestinal: Present: no tenderness, no guarding Integumentary: Present: warm and dry Neurologic: Present: alert and oriented x3 Psychiatric: Present: mood/affect appropriate, cooperative - Lab 11/20/17 05:57 11/20/17 05:57 Most recent lab results Calcium 8.1 mg/dL (8.6-10.3) L 11/20/17 05:57 Phosphorus 8.6 mg/dL (2.7-4.5) H 11/17/17 05:28 Magnesium 1.9 mg/dL (1.6-2.6) 11/17/17 05:28 - VTE Documentation of Mechanical Device: Intermittent pneumatic compression device Consult Discharge Plan - Plan Referrals: Na Johansen, [employer] [Primary Care Provider] - 12/01/17 1:00 pm (Please follow up as schedule...)
[2017-11-20] MEDS ORDERED: predniSONE 20 MG TABLET PO SCH (13:50)
--- NOTE | 2017-11-20 13:52 | Internal Med Progress Note ---
Date of Encounter: 11/20/17 Time of Encounter: 13:45 - Assessment and plan (1) Sepsis Current Visit: Yes Status: Acute Assessment and plan: 72-year-old female with multiple medical comorbidities presented for sharp chest pain. She was found to be in severe sepsis upon admission. She is status post urostomy, status post colostomy, short bowel syndrome, end-stage renal disease on dialysis, atrial fibrillation not on anticoagulation due to chronic thrombocytopenia, chronic respiratory failure. she is admitted and being managed for sepsis secondary to bilateral pneumonia, acute respiratory failure with hypoxia. Incidental finding of fungemia in this admission. She continues to complain of cough, without sputum production. She also was found incidentally to have fractured a rib during her prior admission. Port-a-cath removed 11/18/17. Infectious Disease team has been consutled. Cultures show kelsey sp sensitive to azoles and caspofungin. Sepsis likely secondary to fungemia and pneumonia. Tachycardia and tachypnea resolved. Blood cultures 11/14 and 11/16 were both positive for Kelsey. Peripheral blood culture 11/17 is negative but A port cultures were positive. She does complaining of overall feeling bad, with malaise. Looking at her today she does seem more active, as well nursing reports same. Continue with IV antibiotics and fluconazole. Monitor with AM Labs. Qualifiers: Sepsis type: sepsis due to unspecified organism Qualified Code(s): A41.9 - Sepsis, unspecified organism (2) Pneumonia Current Visit: Yes Status: Suspected Assessment and plan: Continue Zosyn. ID following. Patient still having lot of upper transmitted airway noises that she is having difficulty with secretions at the moment. Duo Nebs will be space out to Q6H. Qualifiers: Pneumonia type: due to unspecified organism Laterality: right Lung location: lower lobe of lung Qualified Code(s): J18.1 - Lobar pneumonia, unspecified organism (3) Fungemia Current Visit: Yes Status: Acute Assessment and plan: Repeat blood culture is + for Kelsey lusitaniae x3. Per ID consult, continue with IV fluconazole; dosing is based on dialysis schedule. Monitor LFTs. Ophthalmology reports no evidence of endophthalmitis in either eye and no further acute management needed at this time. A-port removed without complications 11/18/17. Continue wound care. (4) Chest pain Current Visit: Yes Status: Acute Assessment and plan: Physical exam reveals reproducible chest pain with touch and coughing. CP likely secondary to chostochrondritis. Need to avoid NSAIDs with her ESRD. [place] ineffective, Percocet tried and patient states this helps only a little more. Encouraged I.S. Qualifiers: Chest pain type: unspecified Qualified Code(s): R07.9 - Chest pain, unspecified (5) Cough with sputum Current Visit: Yes Status: Acute Assessment and plan: Pneumonia likely cause. She is still complaining of successive respiratory secretions. This has been observed on previous admissions as well. Continue with Mucinex, aerosol treatment, antibiotics. May need Pulm consult tomorrow if having no improvement of symptoms. (6) Anemia in chronic kidney disease Current Visit: No Status: Chronic Assessment and plan: Today hemoglobin is 7.0 gradually declined. Patient will be transfused 2 units PRBC in dialysis 11/19/17. Continue to follow-up H&H. Qualifiers: Chronic kidney disease stage: on chronic dialysis Qualified Code(s): N18.6 - End stage renal disease; D63.1 - Anemia in chronic kidney disease; Z99.2 - Dependence on renal dialysis (7) Colostomy care Current Visit: No Status: Chronic (8) COPD (chronic obstructive pulmonary disease) Current Visit: No Status: Chronic Assessment and plan: Continue with prednisone and duoneb. Taper Prednisone to 40 mg daily. Qualifiers: COPD type: emphysema Emphysema type: panlobular Qualified Code(s): J43.1 - Panlobular emphysema (9) Elevated troponin Current Visit: Yes Status: Chronic Assessment and plan: Elevated troponin likely secondary to chronic comorbidities. No cardiac intervention required at this time. (10) ESRD (end stage renal disease) Current Visit: No Status: Chronic (11) Hematuria Current Visit: Yes Status: Acute Assessment and plan: Possibly related to worsening thrombocytopenia. Urology following. H&H stable. Qualifiers: Hematuria type: gross Qualified Code(s): R31.0 - Gross hematuria (12) Severe malnutrition Current Visit: No Status: Chronic Assessment and plan: Patient was on TPN on last admission and no longer desirous of artificial nutrition. She is able to swallow fluids and solids. Continue to encourage PO intake, dietary consult. - Subjective Interval history: Cough persisting. Has chostochondral pain and [place] changed to Perococet yesterday without alleviation of symptoms. - Constitutional Vitals: Temp Pulse Resp BP Pulse Ox 98.0 F 72 17 141/63 90 11/20/17 11:53 11/20/17 11:53 11/20/17 11:53 11/20/17 11:53 11/20/17 11:53 General appearance: Present: A&O X 3, underweight, answers questions appropriately Exam: CVS: irregularly irregular rhythm, normal rate Lungs: course transmitted upper airway congestion sounds, decreased breath sounds at the bases, coarse breath sounds and wheezing throughout Ext: no edema. Internal Medicine: Result - Labs CBC & Chem 7: 11/20/17 05:57 11/20/17 05:57 Labs: Short CBC 11/19/17 11/20/17 Range/Units 18:15 05:57 WBC 5.1 (4.3-11.1) K/mcL Hgb 9.2 L D 8.4 L (11.5-15.4) g/dL Hct 28.7 L 27.2 L (35.3-44.9) % Plt Count 62 L (140-400) K/mcL BMP 11/20/17 05:57 Sodium 141 Potassium 4.4 Chloride 103 Carbon Dioxide 28 BUN 37 H Creatinine 3.62 H Glucose 92 Calcium 8.1 L Liver Function 11/20/17 Range/Units 05:57 Total Bilirubin 0.4 (0.3-1.0) mg/dL Direct Bilirubin 0.2 (0.0-0.2) mg/dL AST 13 (13-39) Units/L ALT 17 (7-52) Units/L Alkaline Phosphatase 42 (34-104) Units/L Albumin 3.2 L (3.5-5.7) g/dL - ABG Interpretation ABG results: PT/INR, D-dimer PT 16.2 Seconds (9.4-12.1) H 11/14/17 10:30 - VTE Documentation of Mechanical Device: Intermittent pneumatic compression device Consult Discharge Plan - Plan Referrals: Na Johansen, SHUTTLER CAR [Primary Care Provider] - 12/01/17 1:00 pm (Please follow up as schedule...)
--- NOTE | 2017-11-20 14:29 | Urology Progress Note ---
Date of Encounter: 11/20/17 Time of Encounter: 14:28 - Assessment and Plan (1) Hematuria Current Visit: Yes Status: Acute Assessment and plan: stable. no new recommendations. will continue to follow. Qualifiers: Hematuria type: gross Qualified Code(s): R31.0 - Gross hematuria Progress Note Narrative: patient seen. feeling worse today. + vomitting and chest pain. Objective Initial Vital Signs Temp Pulse Resp BP Pulse Ox 99.7 F H 96 18 102/56 95 11/14/17 09:16 11/14/17 09:16 11/14/17 09:16 11/14/17 09:16 11/14/17 09:16 - General physical appearance Present: well developed - Abdomen Present: soft (still with some bloody scant urine in urostomy ) - Labs 11/20/17 05:57 11/20/17 05:57 Diabetes panel 11/20/17 11/20/17 Range/Units 05:57 05:57 Sodium 141 (136-145) mEq/L Potassium 4.4 (3.5-5.1) mEq/L Chloride 103 (98-107) mEq/L Carbon Dioxide 28 (23-29) mEq/L BUN 37 H (8-23) mg/dL Creatinine 3.62 H (0.60-1.20) mg/dL Glucose 92 (70-105) mg/dL Calcium 8.1 L (8.6-10.3) mg/dL AST 13 (13-39) Units/L ALT 17 (7-52) Units/L Alkaline Phosphatase 42 (34-104) Units/L Albumin 3.2 L (3.5-5.7) g/dL Calcium panel 11/20/17 11/20/17 Range/Units 05:57 05:57 Calcium 8.1 L (8.6-10.3) mg/dL Albumin 3.2 L (3.5-5.7) g/dL Pituitary panel 11/20/17 Range/Units 05:57 Sodium 141 (136-145) mEq/L Potassium 4.4 (3.5-5.1) mEq/L Chloride 103 (98-107) mEq/L Carbon Dioxide 28 (23-29) mEq/L BUN 37 H (8-23) mg/dL Creatinine 3.62 H (0.60-1.20) mg/dL Glucose 92 (70-105) mg/dL Calcium 8.1 L (8.6-10.3) mg/dL Adrenal panel 11/20/17 11/20/17 Range/Units 05:57 05:57 Sodium 141 (136-145) mEq/L Potassium 4.4 (3.5-5.1) mEq/L Chloride 103 (98-107) mEq/L Carbon Dioxide 28 (23-29) mEq/L BUN 37 H (8-23) mg/dL Creatinine 3.62 H (0.60-1.20) mg/dL Glucose 92 (70-105) mg/dL Calcium 8.1 L (8.6-10.3) mg/dL Total Bilirubin 0.4 (0.3-1.0) mg/dL AST 13 (13-39) Units/L ALT 17 (7-52) Units/L Alkaline Phosphatase 42 (34-104) Units/L Albumin 3.2 L (3.5-5.7) g/dL - VTE Documentation of Mechanical Device: Intermittent pneumatic compression device Consult Discharge Plan - Plan Referrals: Na Johansen, SO[employer] SLABBER [Primary Care Provider] - 12/01/17 1:00 pm (Please follow up as schedule...)
--- NOTE | 2017-11-20 17:55 | Pulmonology Progress Note ---
Date of Encounter: 11/20/17 Time of Encounter: 17:00 Assessment and Plan (1) COPD (chronic obstructive pulmonary disease) Current Visit: No Status: Chronic Overall patient is on appropriate treatment from the bronchodilators and also mucolytic and I suspect that might be a component of exacerbation of her underlying COPD and low dose systemic steroid might be helpful. I will change prednisone to IV methylprednisone. This is need to be under control because her sepsis. Qualifiers: COPD type: emphysema Emphysema type: panlobular Qualified Code(s): J43.1 - Panlobular emphysema (2) Pneumonia Current Visit: Yes Status: Acute Patient being treated with broad-spectrum antibiotics and a no improvement bronchoscopy may be considered. Qualifiers: Pneumonia type: due to unspecified organism Laterality: bilateral Lung location: lower lobe of lung Qualified Code(s): J18.9 - Pneumonia, unspecified organism Subjective Principal diagnosis: hypoxic respiratiory failure 2/2 COPD exacerbation 2/2 PNA Interval history: Patient's main complaint is generalized body ache and she is asking for her pain medication. Patient denies change in her shortness of breath and dyspnea. Objective PUL Vital signs: Last Vital Signs Temp 99.3 F 11/20/17 16:44 Pulse 83 11/20/17 16:44 Resp 16 11/20/17 16:44 BP 165/86 11/20/17 16:44 Pulse Ox 90 11/20/17 16:44 General appearance: appears uncomfortable Eyes: nonicteric ENT: oropharynx dry Neck: supple Effort: mildly labored Auscultation: bilateral: wheezes Percussion: bilateral: not dull Cardiovascular: regular rate and rhythm Gastrointestinal: normoactive bowel sounds, non-distended non-focal exam anxious Results - Laboratory Findings CBC and BMP: 11/20/17 05:57 11/20/17 05:57 PT/INR, D-dimer PT 16.2 Seconds (9.4-12.1) H 11/14/17 10:30 Abnormal lab findings: Abnormal lab results RBC 2.88 M/mcL (3.82-4.97) L 11/20/17 05:57 Hgb 8.4 g/dL (11.5-15.4) L 11/20/17 05:57 Hct 27.2 % (35.3-44.9) L 11/20/17 05:57 MCHC 30.9 g/dL (31.6-35.5) L 11/20/17 05:57 RDW 18.3 % (11.5-14.5) H 11/20/17 05:57 Plt Count 62 K/mcL (140-400) L 11/20/17 05:57 Neutrophils # 9.2 K/mcL (1.6-8.9) H 11/14/17 10:30 Immature Plt Fraction 6.9 % (1.1-6.1) H 11/20/17 05:57 PT 16.2 Seconds (9.4-12.1) H 11/14/17 10:30 VBG pH 7.31 pH Units (7.32-7.42) L 11/17/17 06:13 VBG pO2 74 mmHg (25-50) H 11/17/17 06:13 BUN 37 mg/dL (8-23) H 11/20/17 05:57 Creatinine 3.62 mg/dL (0.60-1.20) H 11/20/17 05:57 Est GFR ( Amer) 15 (> 60) L 11/20/17 05:57 Est GFR (Non-Af Amer) 12 (> 60) L 11/20/17 05:57 POC Glucose 91 (58-89) H 11/20/17 11:16 Calcium 8.1 mg/dL (8.6-10.3) L 11/20/17 05:57 Venous Ioniz Calcium 0.99 mmol/L (1.15-1.35) L 11/17/17 06:13 Phosphorus 8.6 mg/dL (2.7-4.5) H 11/17/17 05:28 Troponin I 0.04 ng/mL (< 0.04) H* 11/14/17 22:40 Serum Total Protein 5.3 g/dL (6.4-8.9) L 11/20/17 05:57 Albumin 3.2 g/dL (3.5-5.7) L 11/20/17 05:57 Globulin 2.1 g/dL (2.4-3.5) L 11/20/17 05:57 Coronavirus HKU1 (PCR) DETECTED (Not Detect) A 11/18/17 08:41 RSV (PCR) DETECTED (Not Detect) A 11/18/17 08:41 B-(1,3)-D-Glucan Intrp POSITIVE (Negative) A 11/17/17 17:31 - Microbiology Findings Microbiology Findings: Microbiology, Last 48 Hours 11/19/17 10:10 Catheter Tip Culture - Preliminary Intravenous or Arterial Cath No growth. 11/17/17 17:31 Blood Culture - Preliminary Peripheral Venipuncture No growth. 11/17/17 17:31 Blood Culture - Preliminary Peripheral Venipuncture No growth. 11/17/17 18:09 Blood Culture - Preliminary Port System Yeast Species - Diagnostic Findings Chest x-ray: report reviewed, image reviewed - Clinical Findings Intake & Output: Intake & Output 11/20/17 11/20/17 11/20/17 07:59 15:59 23:59 Intake Total 200 / 200 440 / 440 Balance 200 / 200 440 / 440 Weight 52.3 kg - VTE Documentation of Mechanical Device: Intermittent pneumatic compression device Consult Discharge Plan - Plan Referrals: Na Johansen, PRINTER ASSISTANT [Primary Care Provider] - 12/01/17 1:00 pm (Please follow up as schedule...)
[2017-11-20] MEDS: Sodium Chloride for inhalation 3 ML VIAL IH SCH ×3 (18:39→23:45)
[2017-11-20] MEDS: MethylPREDNISolone 40 MG/ML VIAL IVP SCH (19:43)
[2017-11-21] MEDS: Ondansetron 4 MG/2 ML VIAL IVP PRN ×4 (00:08→20:55)
[2017-11-21] MEDS: *HR* OxyCODONE/APAP 5/325 TABLET PO PRN ×3 (00:08→13:24)
[2017-11-21] MEDS: Sodium Chloride for inhalation 3 ML VIAL IH SCH ×2 (02:59→11:34)
[2017-11-21] MEDS: Ipratropium/Albuterol Neb 3 ML IH SCH ×6 (02:59→23:35)
[2017-11-21] MEDS: Piperacillin/Tazobactam 3.375 GM/200 ML BAG IVPB SCH (04:09)
[2017-11-21 06:27] LABS: Mean Corpuscular Volume 94.3 fL (83.0-100.0)
[2017-11-21 06:29] LABS: Hematocrit 26.5 % (35.3-44.9); Hemoglobin 8.2 g/dL (11.5-15.4); Immature Platelets 6.3 % (1.1-6.1); Mean Corpuscular HGB Conc 30.9 g/dL (31.6-35.5); Mean Corpuscular Hemoglobin 29.2 pg (28.0-33.3); Mean Platelet Volume 11.5 fL (9.4-12.4); Red Blood Count 2.81 M/mcL (3.82-4.97); Red Cell Distribution Width 17.9 % (11.5-14.5)
[2017-11-21] MEDS: MethylPREDNISolone 40 MG/ML VIAL IVP SCH ×2 (06:47→16:42)
[2017-11-21 07:02] LABS: Albumin 3.1 g/dL (3.5-5.7); Albumin/Globulin Ratio 1.5 (1.1-2.2); Bilirubin,Direct 0.1 mg/dL (0.0-0.2); Bilirubin,Indirect 0.3 mg/dL (0.0-1.2); Bilirubin,Total 0.4 mg/dL (0.3-1.0); Calcium 7.7 mg/dL (8.6-10.3); Globulin 2.1 g/dL (2.4-3.5); Potassium 4.9 mEq/L (3.5-5.1); Total Protein 5.2 g/dL (6.4-8.9)
[2017-11-21] MEDS: Budesonide/Formoterol 80/4.5 MDI IH SCH ×2 (07:42→20:00)
[2017-11-21] MEDS ORDERED: 0.9 % Sodium Chloride 250 ML IVC PRN (08:05)
[2017-11-21] MEDS: Calcium Acetate 667 MG CAPSULE PO SCH ×3 (08:17→16:41)
--- NOTE | 2017-11-21 13:23 | Nephrology Progress Note ---
Date of Encounter: 11/21/17 Time of Encounter: 09:00 - Assessment and Plan (1) ESRD (end stage renal disease) on dialysis Current Visit: No Status: Chronic HD today. Pt is asking for better pain control - will defer to Primary (2) Hyperphosphatemia Current Visit: No Status: Chronic Counseled her to focus on improving control of her phos intake, which then helps lower iPTH and raise serum Ca. (3) Hypocalcemia Current Visit: No Status: Chronic Chronic. Using a higher Ca bath with dialysis. (4) Anemia in CKD (chronic kidney disease) Current Visit: No Status: Chronic Goal Hgb is 10-11 and may need IV iron and/or IVANNA. Qualifiers: Chronic kidney disease stage: on chronic dialysis Qualified Code(s): N18.6 - End stage renal disease; D63.1 - Anemia in chronic kidney disease; D63.1 - Anemia in chronic kidney disease; Z99.2 - Dependence on renal dialysis; Z99.2 - Dependence on renal dialysis; Z99.2 - Dependence on renal dialysis; Z99.2 - Dependence on renal dialysis Subjective Principal diagnosis: hypoxic respiratiory failure 2/2 COPD exacerbation 2/2 PNA Interval history: Pt was s/e earlier today while on HD. She reported having chronic cough with sputum and pains that worsen with coughing. She voiced having ankle swelling which has also been causing discomfort, she said for about 2-3 days. She did not affirm F/C but has chronic N/V and high colostomy output, which she affirmed. Objective - Vital Signs Vital signs: Vital Signs Temp Pulse Resp BP Pulse Ox 11/21/17 12:35 97.1 F L 15 144/54 11/21/17 12:25 112/78 11/21/17 12:10 134/52 11/21/17 11:55 136/52 11/21/17 11:40 131/50 11/21/17 11:34 17 92 11/21/17 11:25 137/59 11/21/17 11:10 134/47 11/21/17 10:55 126/60 11/21/17 10:40 147/56 11/21/17 10:25 126/39 11/21/17 10:10 132/48 11/21/17 09:55 144/41 11/21/17 09:40 131/50 11/21/17 09:25 119/81 11/21/17 09:10 134/48 11/21/17 08:55 97.1 F L 15 119/42 11/21/17 08:00 97.9 F 65 16 139/56 95 11/21/17 04:06 97.6 F 71 20 174/77 93 11/21/17 03:01 16 92 11/20/17 23:36 18 91 11/20/17 23:24 98 F 76 20 148/44 89 11/20/17 19:55 16 88 11/20/17 17:03 18 87 11/20/17 16:44 99.3 F 83 16 165/86 90 Intake and Output 11/20/17 11/21/17 11/21/17 23:59 07:59 15:59 Intake Total 800 / 800 680 / 680 600 / 600 Output Total 2600 / 2600 Balance 800 / 800 680 / 680 -2000 / -2000 Intake: IV Fluids 200 / 200 Zosyn Premix 3.375 GM/200 ML 3. 200 / 200 375 gm In 200 ml @ 50 mls/hr IVPB Q12H [facility] Rx#:[id number] Oral 800 / 800 480 / 480 0 / 0 Intake, Rinseback and Flushes 600 / 600 Output: Urine 0 / 0 Total Dialysis (HD) Output 2600 / 2600 Other: Weight 60.872 kg Hemodialysis Net Fluid Removed 2000 (mL) Patient Weight 11/21/17 23:59 Weight 60.872 kg - General Appearance General appearance: Present: cachectic, chronically ill, fatigue, frail EENT: Present: ATNC, PERRL, mucous membranes dry Neck: Present: supple Respiratory: Present: wheezing, rales, course breath sounds, rhonchi Cardiology: Present: edema (trace to 1+ pretibial pitting edema b/l), regular rate, regular rhythm, normal S1, normal S2 Dialysis Vascular Access: Arteriovenous Fistula thrill: Yes bruit: Yes Gastrointestinal: Present: normoactive bowel sounds, no tenderness, no guarding Integumentary: Present: no rash, warm and dry Neurologic: Present: no focal deficit, no asterixis, alert and oriented x3 Musculoskeletal: Present: no deformities, no erythema, no cyanosis Psychiatric: Present: depressed, cooperative - Lab 11/21/17 06:15 11/21/17 06:15 Most recent lab results Calcium 7.7 mg/dL (8.6-10.3) L 11/21/17 06:15 Phosphorus 8.6 mg/dL (2.7-4.5) H 11/17/17 05:28 Magnesium 1.9 mg/dL (1.6-2.6) 11/17/17 05:28 - VTE Documentation of Mechanical Device: Intermittent pneumatic compression device Consult Discharge Plan - Plan Referrals: Na Johansen CNP [Primary Care Provider] - 12/01/17 1:00 pm (Please follow up as schedule...)
[2017-11-21] MEDS ORDERED: Saliva Stimulant 100ml BOTTLE PO PRN (14:29)
--- NOTE | 2017-11-21 15:13 | Internal Med Progress Note ---
Date of Encounter: 11/21/17 Time of Encounter: 15:12 - Assessment and plan (1) Sepsis Current Visit: Yes Status: Acute Assessment and plan: 72-year-old female with multiple medical comorbidities presented for sharp chest pain. She was found to be in severe sepsis upon admission. She is status post urostomy, status post colostomy, short bowel syndrome, end-stage renal disease on dialysis, atrial fibrillation not on anticoagulation due to chronic thrombocytopenia, chronic respiratory failure. she is admitted and being managed for sepsis secondary to bilateral pneumonia, acute respiratory failure with hypoxia. Incidental finding of fungemia in this admission. She continues to complain of cough, without sputum production. She also was found incidentally to have fractured a rib during her prior admission. Port-a-cath removed 11/18/17. Infectious Disease team has been consutled. Cultures show kelsey sp sensitive to azoles and caspofungin. Sepsis likely secondary to fungemia and pneumonia. Tachycardia and tachypnea resolved. Blood cultures 11/14 and 11/16 were both positive for Kelsey. Peripheral blood culture 11/17 is negative but A port cultures were positive. Blood cultures 11/19 - no growth to date Continue with IV antibiotics and fluconazole. ID on board, recommendations appreciated. Qualifiers: Sepsis type: sepsis due to unspecified organism Qualified Code(s): A41.9 - Sepsis, unspecified organism (2) Pneumonia Current Visit: Yes Status: Suspected Assessment and plan: Continue Zosyn, Pulmonology following, bronchoscopy may be considered if no improvement. Qualifiers: Pneumonia type: due to unspecified organism Laterality: right Lung location: lower lobe of lung Qualified Code(s): J18.1 - Lobar pneumonia, unspecified organism (3) Fungemia Current Visit: Yes Status: Acute Assessment and plan: Repeat blood culture is + for Kelsey lusitaniae x3. Per ID consult, continue with IV fluconazole; dosing is based on dialysis schedule. Monitor LFTs. Ophthalmology reports no evidence of endophthalmitis in either eye and no further acute management needed at this time. A-port removed without complications 11/18/17. Blood cultures 11/19 - NGTD (4) Chest pain Current Visit: Yes Status: Acute Assessment and plan: Patient complaining of chest pain which was present on admission EKG did not show signs of ischemia. Initial trop 0.05 subsequent trops 0.07, 0.04 - likely baseline because of ESRD Likely pleuritic and/or chostochondritis from infection and cough. [place] and Percocet (Q6H) were ineffective - Switch Roxicodone Q4H prn pain and DC Percocet. Qualifiers: Chest pain type: unspecified Qualified Code(s): R07.9 - Chest pain, unspecified (5) Cough with sputum Current Visit: Yes Status: Acute Assessment and plan: Pneumonia likely cause. She is still complaining of successive respiratory secretions. This has been observed on previous admissions as well. Continue with Mucinex, aerosol treatment, antibiotics. (6) Anemia in chronic kidney disease Current Visit: No Status: Chronic Assessment and plan: Today hemoglobin is 7.0 gradually declined. Patient will be transfused 2 units PRBC in dialysis 11/19/17. Continue to follow-up H&H. Qualifiers: Chronic kidney disease stage: on chronic dialysis Qualified Code(s): N18.6 - End stage renal disease; D63.1 - Anemia in chronic kidney disease; Z99.2 - Dependence on renal dialysis (7) Colostomy care Current Visit: No Status: Chronic Assessment and plan: Patient's colostomy is pink and moist. Colostomy bag contains gas and no signs of infection noted. Continue with colostomy care. (8) COPD (chronic obstructive pulmonary disease) Current Visit: No Status: Chronic Assessment and plan: Continue with prednisone and duoneb. Taper Prednisone to 40 mg daily. Qualifiers: COPD type: emphysema Emphysema type: panlobular Qualified Code(s): J43.1 - Panlobular emphysema (9) Elevated troponin Current Visit: Yes Status: Chronic Assessment and plan: Elevated troponin likely secondary to chronic comorbidities. No cardiac intervention required at this time. (10) ESRD (end stage renal disease) Current Visit: No Status: Chronic (11) Hematuria Current Visit: Yes Status: Acute Qualifiers: Hematuria type: gross Qualified Code(s): R31.0 - Gross hematuria (12) Severe malnutrition Current Visit: No Status: Chronic Assessment and plan: Patient was on TPN on last admission and no longer desirous of artificial nutrition. She is able to swallow fluids and solids. Continue to encourage PO intake, dietary consult. - Subjective Interval history: Patient has been doing well per nursing and staff. Currently ambulating in hallway with no acute distress. [place] and Percocet have been ineffective at treating chest wall, pleuritic pain. - Constitutional Vitals: Temp Pulse Resp BP Pulse Ox 97.1 F L 65 15 144/54 92 11/21/17 12:35 11/21/17 08:00 11/21/17 12:35 11/21/17 13:25 11/21/17 11:34 General appearance: Present: A&O X 3, underweight, answers questions appropriately Exam: Gen: no acute distress CVS: irregularly irregular rhythm, normal rate Lungs: course transmitted upper airway congestion sounds, decreased breath sounds at the bases, coarse breath sounds and wheezing throughout Ext: no edema. Internal Medicine: Result - Labs CBC & Chem 7: 11/21/17 06:15 11/21/17 06:15 Labs: Short CBC 11/21/17 Range/Units 06:15 WBC 4.2 L (4.3-11.1) K/mcL Hgb 8.2 L (11.5-15.4) g/dL Hct 26.5 L (35.3-44.9) % Plt Count 59 L (140-400) K/mcL BMP 11/21/17 06:15 Sodium 138 Potassium 4.9 Chloride 101 Carbon Dioxide 26 BUN 56 H Creatinine 5.02 H Glucose 139 H Calcium 7.7 L Liver Function 11/21/17 Range/Units 06:15 Total Bilirubin 0.4 (0.3-1.0) mg/dL Direct Bilirubin 0.1 (0.0-0.2) mg/dL AST 12 L (13-39) Units/L ALT 14 (7-52) Units/L Alkaline Phosphatase 36 (34-104) Units/L Albumin 3.1 L (3.5-5.7) g/dL - ABG Interpretation ABG results: PT/INR, D-dimer PT 16.2 Seconds (9.4-12.1) H 11/14/17 10:30 - VTE Documentation of Mechanical Device: Intermittent pneumatic compression device Consult Discharge Plan - Plan Referrals: Na Johansen, TYLER [Primary Care Provider] - 12/01/17 1:00 pm (Please follow up as schedule...)
[2017-11-21] MEDS ORDERED: 0.9 % Sodium Chloride 1,000 ML ONE (15:59)
[2017-11-21] MEDS: *HR* OxyCODONE Immed Rel 5 MG TABLET PO PRN ×2 (16:41→20:54)
[2017-11-21] MEDS: Fluconazole 400 MG/200 ML 400 MG/200 ML BAG IVPB SCH (16:42)
[2017-11-22] MEDS: *HR* OxyCODONE Immed Rel 5 MG TABLET PO PRN ×5 (01:08→18:39)
[2017-11-22] MEDS ORDERED: *HR* Morphine 2 MG/ML SYRINGE IVP ONE (02:34)
[2017-11-22] MEDS: Ipratropium/Albuterol Neb 3 ML IH SCH ×6 (03:48→23:49)
[2017-11-22] MEDS: Ondansetron 4 MG/2 ML VIAL IVP PRN ×3 (03:50→15:07)
[2017-11-22 05:09] LABS: Hemoglobin 8.1 g/dL (11.5-15.4); Mean Corpuscular Volume 95.3 fL (83.0-100.0)
[2017-11-22 05:10] LABS: Hematocrit 26.4 % (35.3-44.9); Immature Platelets 6.9 % (1.1-6.1); Mean Corpuscular HGB Conc 30.7 g/dL (31.6-35.5); Mean Corpuscular Hemoglobin 29.2 pg (28.0-33.3); Mean Platelet Volume 11.6 fL (9.4-12.4); Red Blood Count 2.77 M/mcL (3.82-4.97); Red Cell Distribution Width 17.4 % (11.5-14.5)
[2017-11-22 05:21] LABS: Calcium 8.1 mg/dL (8.6-10.3); Potassium 3.9 mEq/L (3.5-5.1)
[2017-11-22 05:28] LABS: Albumin 3.2 g/dL (3.5-5.7); Albumin/Globulin Ratio 1.5 (1.1-2.2); Bilirubin,Direct 0.1 mg/dL (0.0-0.2); Bilirubin,Indirect 0.3 mg/dL (0.0-1.2); Bilirubin,Total 0.4 mg/dL (0.3-1.0); Globulin 2.1 g/dL (2.4-3.5); Total Protein 5.3 g/dL (6.4-8.9)
[2017-11-22] MEDS: MethylPREDNISolone 40 MG/ML VIAL IVP SCH ×2 (06:00→17:05)
[2017-11-22] MEDS: Budesonide/Formoterol 80/4.5 MDI IH SCH ×2 (07:36→20:31)
[2017-11-22] MEDS: Calcium Acetate 667 MG CAPSULE PO SCH ×3 (07:48→17:05)
--- NOTE | 2017-11-22 08:15 | Urology Progress Note ---
Date of Encounter: 11/22/17 Time of Encounter: 08:15 - Assessment and Plan (1) Hematuria Current Visit: Yes Status: Acute Assessment and plan: stable. no obvious change at this time. no new recs. patient will need to f/ u with urology for possible loopogram or cystoscopy of ileal loop. call with questions. Qualifiers: Hematuria type: gross Qualified Code(s): R31.0 - Gross hematuria Progress Note Narrative: Patient seen this am. states that her right sided chest pain is worse. requiring more breathing tx's per patient. Objective Initial Vital Signs Temp Pulse Resp BP Pulse Ox 99.7 F H 96 18 102/56 95 11/14/17 09:16 11/14/17 09:16 11/14/17 09:16 11/14/17 09:16 11/14/17 09:16 - General physical appearance Present: well developed - Abdomen Present: soft (still with bloody fluid/urine coming from right lower quadrant urostomy. minimal output) - Labs 11/22/17 04:42 11/22/17 04:42 Diabetes panel 11/22/17 11/22/17 Range/Units 04:42 04:42 Sodium 141 (136-145) mEq/L Potassium 3.9 (3.5-5.1) mEq/L Chloride 99 (98-107) mEq/L Carbon Dioxide 33 H (23-29) mEq/L BUN 35 H (8-23) mg/dL Creatinine 3.39 H (0.60-1.20) mg/dL Glucose 149 H (70-105) mg/dL Calcium 8.1 L (8.6-10.3) mg/dL AST 11 L (13-39) Units/L ALT 14 (7-52) Units/L Alkaline Phosphatase 40 (34-104) Units/L Albumin 3.2 L (3.5-5.7) g/dL Calcium panel 11/22/17 11/22/17 Range/Units 04:42 04:42 Calcium 8.1 L (8.6-10.3) mg/dL Albumin 3.2 L (3.5-5.7) g/dL Pituitary panel 11/22/17 Range/Units 04:42 Sodium 141 (136-145) mEq/L Potassium 3.9 (3.5-5.1) mEq/L Chloride 99 (98-107) mEq/L Carbon Dioxide 33 H (23-29) mEq/L BUN 35 H (8-23) mg/dL Creatinine 3.39 H (0.60-1.20) mg/dL Glucose 149 H (70-105) mg/dL Calcium 8.1 L (8.6-10.3) mg/dL Adrenal panel 11/22/17 11/22/17 Range/Units 04:42 04:42 Sodium 141 (136-145) mEq/L Potassium 3.9 (3.5-5.1) mEq/L Chloride 99 (98-107) mEq/L Carbon Dioxide 33 H (23-29) mEq/L BUN 35 H (8-23) mg/dL Creatinine 3.39 H (0.60-1.20) mg/dL Glucose 149 H (70-105) mg/dL Calcium 8.1 L (8.6-10.3) mg/dL Total Bilirubin 0.4 (0.3-1.0) mg/dL AST 11 L (13-39) Units/L ALT 14 (7-52) Units/L Alkaline Phosphatase 40 (34-104) Units/L Albumin 3.2 L (3.5-5.7) g/dL - VTE Documentation of Mechanical Device: Intermittent pneumatic compression device Consult Discharge Plan - Plan Referrals: Na Johansen CNP [Primary Care Provider] - 12/01/17 1:00 pm (Please follow up as schedule...)
--- NOTE | 2017-11-22 14:44 | Internal Med Progress Note ---
Date of Encounter: 11/22/17 Time of Encounter: 14:41 - Assessment and plan (1) Sepsis Current Visit: Yes Status: Acute Assessment and plan: 72-year-old female with multiple medical comorbidities presented for sharp chest pain. She was found to be in severe sepsis upon admission. She is status post urostomy, status post colostomy, short bowel syndrome, end-stage renal disease on dialysis, atrial fibrillation not on anticoagulation due to chronic thrombocytopenia, chronic respiratory failure. she is admitted and being managed for sepsis secondary to bilateral pneumonia, acute respiratory failure with hypoxia. Incidental finding of fungemia in this admission. She continues to complain of cough, without sputum production. She also was found incidentally to have fractured a rib during her prior admission. Port-a-cath removed 11/18/17. Infectious Disease team has been consutled. Cultures show davide sp sensitive to azoles and caspofungin. Sepsis likely secondary to fungemia and pneumonia. Tachycardia and tachypnea resolved. Blood cultures 11/14 and 11/16 were both positive for [place]. Peripheral blood culture 11/17 is negative but A port cultures were positive. Blood cultures 11/19 - no growth to date. Continue with IV antibiotics and fluconazole. ID on board, recommendations appreciated. Qualifiers: Sepsis type: sepsis due to unspecified organism Qualified Code(s): A41.9 - Sepsis, unspecified organism (2) Pneumonia Current Visit: Yes Status: Suspected Assessment and plan: Continue Zosyn, Pulmonology following, bronchoscopy may be considered if no improvement. Qualifiers: Pneumonia type: due to unspecified organism Laterality: right Lung location: lower lobe of lung Qualified Code(s): J18.1 - Lobar pneumonia, unspecified organism (3) Fungemia Current Visit: Yes Status: Acute Assessment and plan: Repeat blood culture is + for Dav[place] lusitaniae x3. Per ID consult, continue with IV fluconazole; dosing is based on dialysis schedule. Monitor LFTs. Ophthalmology reports no evidence of endophthalmitis in either eye and no further acute management needed at this time. A-port removed without complications 11/18/17. Blood cultures 11/19 - NGTD (4) Chest pain Current Visit: Yes Status: Acute Assessment and plan: Present on admission EKG did not show signs of ischemia. Initial troponin 0.05 subsequent trops 0.07, 0.04 - likely baseline because of ESRD Echocardiogram: LV EF 60%, moderate LV diastolic dysfunction Seen by Cardiology 06/2017 for similar complaints; negative findings. Likely pleuritic and/or chostochondritis from infection and cough. [place] and Percocet (Q6H) were ineffective. On Roxicodone prn Schedule for Mary scan Consult Cardiology as patient has still having episodes of pain despite negative workup. Qualifiers: Chest pain type: unspecified Qualified Code(s): R07.9 - Chest pain, unspecified (5) Cough with sputum Current Visit: Yes Status: Acute Assessment and plan: Pneumonia likely cause. She is still complaining of successive respiratory secretions. This has been observed on previous admissions as well. Continue with Mucinex, aerosol treatment, antibiotics. (6) Anemia in chronic kidney disease Current Visit: No Status: Chronic Assessment and plan: Today hemoglobin is 7.0 gradually declined. Patient will be transfused 2 units PRBC in dialysis 11/19/17. Continue to follow-up H&H. Qualifiers: Chronic kidney disease stage: on chronic dialysis Qualified Code(s): N18.6 - End stage renal disease; D63.1 - Anemia in chronic kidney disease; Z99.2 - Dependence on renal dialysis (7) Colostomy care Current Visit: No Status: Chronic Assessment and plan: Patient's colostomy is pink and moist. Colostomy bag contains gas and no signs of infection noted. Continue with colostomy care. (8) COPD (chronic obstructive pulmonary disease) Current Visit: No Status: Chronic Assessment and plan: Continue with prednisone and duoneb. Taper Prednisone to 40 mg daily. Qualifiers: COPD type: emphysema Emphysema type: panlobular Qualified Code(s): J43.1 - Panlobular emphysema (9) Elevated troponin Current Visit: Yes Status: Chronic Assessment and plan: Elevated troponin likely secondary to chronic comorbidities. Will do stress test. (10) ESRD (end stage renal disease) Current Visit: No Status: Chronic (11) Hematuria Current Visit: Yes Status: Acute Assessment and plan: Possibly related to worsening thrombocytopenia. Urology following. H&H stable. Qualifiers: Hematuria type: gross Qualified Code(s): R31.0 - Gross hematuria (12) Severe malnutrition Current Visit: No Status: Chronic Assessment and plan: Patient was on TPN on last admission and no longer desirous of artificial nutrition. She is able to swallow fluids and solids. Continue to encourage PO intake, dietary consult. - Subjective Interval history: Seen this AM patient is standing in room ambulating. She states she is having severe chest pain currently, which is constant. - Constitutional Vitals: Temp Pulse Resp BP Pulse Ox 98.0 F 91 16 193/70 98 11/22/17 12:38 11/22/17 12:38 11/22/17 12:38 11/22/17 12:38 11/22/17 12:38 Exam: Gen: NAD, ambulating in room, AAOx3 CVS: irregularly irregular rhythm, normal rate Lungs: course transmitted upper airway congestion sounds, decreased breath sounds at the bases, coarse breath sounds and wheezing throughout Colostomy bag present in tact Urostomy bag present in tact Ext: no edema. Internal Medicine: Result - Labs CBC & Chem 7: 11/22/17 04:42 11/22/17 04:42 Labs: Short CBC 11/22/17 Range/Units 04:42 WBC 4.4 (4.3-11.1) K/mcL Hgb 8.1 L (11.5-15.4) g/dL Hct 26.4 L (35.3-44.9) % Plt Count 70 L (140-400) K/mcL BMP 11/22/17 04:42 Sodium 141 Potassium 3.9 Chloride 99 Carbon Dioxide 33 H BUN 35 H Creatinine 3.39 H Glucose 149 H Calcium 8.1 L Liver Function 11/22/17 Range/Units 04:42 Total Bilirubin 0.4 (0.3-1.0) mg/dL Direct Bilirubin 0.1 (0.0-0.2) mg/dL AST 11 L (13-39) Units/L ALT 14 (7-52) Units/L Alkaline Phosphatase 40 (34-104) Units/L Albumin 3.2 L (3.5-5.7) g/dL - ABG Interpretation ABG results: PT/INR, D-dimer PT 16.2 Seconds (9.4-12.1) H 11/14/17 10:30 - VTE Documentation of Mechanical Device: Intermittent pneumatic compression device Consult Discharge Plan - Plan Referrals: Na Johansen, TYLER [Primary Care Provider] - 12/01/17 1:00 pm (Please follow up as schedule...)
[2017-11-22] MEDS ORDERED: Nitroglycerin 0.4 MG TAB.SUBL SL PRN (14:55)
[2017-11-23] MEDS: Ondansetron 4 MG/2 ML VIAL IVP PRN ×4 (00:15→20:49)
[2017-11-23] MEDS: *HR* OxyCODONE Immed Rel 5 MG TABLET PO PRN ×5 (00:35→20:49)
[2017-11-23] MEDS: Ipratropium/Albuterol Neb 3 ML IH SCH ×6 (04:27→23:25)
[2017-11-23] MEDS: MethylPREDNISolone 40 MG/ML VIAL IVP SCH ×2 (05:25→17:22)
[2017-11-23 08:00] LABS: Albumin 3.3 g/dL (3.5-5.7); Albumin/Globulin Ratio 1.7 (1.1-2.2); Bilirubin,Direct 0.1 mg/dL (0.0-0.2); Bilirubin,Indirect 0.4 mg/dL (0.0-1.2); Bilirubin,Total 0.5 mg/dL (0.3-1.0); Calcium 7.7 mg/dL (8.6-10.3); Potassium 4.5 mEq/L (3.5-5.1); Total Protein 5.3 g/dL (6.4-8.9)
[2017-11-23 08:04] LABS: Hematocrit 27.6 % (35.3-44.9); Hemoglobin 8.4 g/dL (11.5-15.4); Immature Platelets 6.4 % (1.1-6.1); Mean Corpuscular HGB Conc 30.4 g/dL (31.6-35.5); Mean Corpuscular Volume 95.2 fL (83.0-100.0); Mean Platelet Volume 11.9 fL (9.4-12.4); Red Blood Count 2.9 M/mcL (3.82-4.97); Red Cell Distribution Width 16.9 % (11.5-14.5)
[2017-11-23] MEDS: Budesonide/Formoterol 80/4.5 MDI IH SCH ×2 (08:05→20:10)
[2017-11-23] MEDS: Calcium Acetate 667 MG CAPSULE PO SCH ×3 (08:48→17:23)
--- NOTE | 2017-11-23 10:53 | Event Note ---
Date of Encounter: 11/23/17 Time of Encounter: 10:53 Nephrology Chart Review ESRD on HD M/W/F. Last HD was on Friday and next HD is planned for Friday. No new recommendations today. Will follow and see the pt tomorrow (Friday).
--- NOTE | 2017-11-23 14:35 | Internal Med Progress Note ---
Date of Encounter: 11/23/17 Time of Encounter: 14:32 - Assessment and plan (1) Sepsis Current Visit: Yes Status: Acute Assessment and plan: 72-year-old female with multiple medical comorbidities presented for sharp chest pain. She was found to be in severe sepsis upon admission. She is status post urostomy, status post colostomy, short bowel syndrome, end-stage renal disease on dialysis, atrial fibrillation not on anticoagulation due to chronic thrombocytopenia, chronic respiratory failure. she is admitted and being managed for sepsis secondary to bilateral pneumonia, acute respiratory failure with hypoxia. Incidental finding of fungemia in this admission. She continues to complain of cough, without sputum production. She also was found incidentally to have fractured a rib during her prior admission. Port-a-cath removed 11/18/17. Infectious Disease team has been consutled. Cultures show kelsey sp sensitive to azoles and caspofungin. Sepsis likely secondary to fungemia and pneumonia. Tachycardia and tachypnea resolved. Blood cultures 11/14 and 11/16 were both positive for Kelsey. Peripheral blood culture 11/17 is negative but A port cultures were positive. Blood cultures 11/19 - no growth to date. Continue with IV fluconazole. Zosyn course completed ID on board, recommendations in regards to duration of therapy appreciated. Qualifiers: Sepsis type: sepsis due to unspecified organism Qualified Code(s): A41.9 - Sepsis, unspecified organism (2) Pneumonia Current Visit: Yes Status: Suspected Assessment and plan: Finished 7 day course of Zosyn Pulmonology following, bronchoscopy may be considered if no improvement. Qualifiers: Pneumonia type: due to unspecified organism Laterality: right Lung location: lower lobe of lung Qualified Code(s): J18.1 - Lobar pneumonia, unspecified organism (3) Fungemia Current Visit: Yes Status: Acute Assessment and plan: Repeat blood culture is + for Kelsey lusitaniae x3. Per ID consult, continue with IV fluconazole; dosing is based on dialysis schedule. Monitor LFTs. Ophthalmology reports no evidence of endophthalmitis in either eye and no further acute management needed at this time. A-port removed without complications 11/18/17. Blood cultures 11/19 - NGTD Appreciate ID recs on duration of Flucanazole therapy (4) COPD (chronic obstructive pulmonary disease) Current Visit: No Status: Chronic Assessment and plan: Continue Solu-Medrol and Duo Neb [facility] Pulmonology recommendations on steroid dosing/taper. breath sounds improved today Qualifiers: COPD type: emphysema Emphysema type: panlobular Qualified Code(s): J43.1 - Panlobular emphysema (5) Chest pain Current Visit: Yes Status: Acute Assessment and plan: Present on admission EKG did not show signs of ischemia. Initial troponin 0.05 subsequent trops 0.07, 0.04 - likely baseline because of ESRD Echocardiogram: LV EF 60%, moderate LV diastolic dysfunction Seen by Cardiology 06/2017 for similar complaints; negative findings. Likely pleuritic and/or chostochondritis from infection and cough. [place] and Percocet (Q6H) were ineffective. On Roxicodone prn I had discussion with Cardiology team about patient. After discussion, I do believe we can hold off of consultation and holding off stress testing. This pain is likely musculoskelatal given it is reproducible. Likely pleuritis as well from infection. She has had a cardiac workup which was negative, see below for details. Patient is high risk with multiple co- morbidities for any cardiac interventions and so any sort of cardiac testing after this workup would not be warranted. Qualifiers: Chest pain type: unspecified Qualified Code(s): R07.9 - Chest pain, unspecified (6) Anemia in chronic kidney disease Current Visit: No Status: Chronic Assessment and plan: Today hemoglobin is 7.0 gradually declined. Patient will be transfused 2 units PRBC in dialysis 11/19/17. Continue to follow-up H&H. Qualifiers: Chronic kidney disease stage: on chronic dialysis Qualified Code(s): N18.6 - End stage renal disease; D63.1 - Anemia in chronic kidney disease; Z99.2 - Dependence on renal dialysis (7) ESRD (end stage renal disease) Current Visit: No Status: Chronic (8) Elevated troponin Current Visit: Yes Status: Chronic Assessment and plan: Elevated troponin likely secondary to chronic comorbidities. Will do stress test. (9) Hematuria Current Visit: Yes Status: Acute Assessment and plan: Possibly related to worsening thrombocytopenia. Urology following. H&H stable. Qualifiers: Hematuria type: gross Qualified Code(s): R31.0 - Gross hematuria (10) Severe malnutrition Current Visit: No Status: Chronic Assessment and plan: Patient was on TPN on last admission and no longer desirous of artificial nutrition. She is able to swallow fluids and solids. Continue to encourage PO intake, dietary consult. (11) Colostomy care Current Visit: No Status: Chronic Assessment and plan: Patient's colostomy is pink and moist. Colostomy bag contains gas and no signs of infection noted. Continue with colostomy care. - Subjective Interval history: Patient has no acute events. She is complaining of increased mucus secretions. - Constitutional Vitals: Temp Pulse Resp BP Pulse Ox 97.6 F 84 18 137/56 90 11/23/17 07:51 11/23/17 07:51 11/23/17 11:30 11/23/17 07:51 11/23/17 11:30 Exam: Gen: NAD, ambulating in room, AAOx3 CVS: irregularly irregular rhythm, normal rate Lungs: course transmitted upper airway congestion sounds, decreased breath sounds at the bases, coarse breath sounds and wheezing throughout Colostomy bag present in tact Urostomy bag present in tact Ext: no edema. Internal Medicine: Result - Labs CBC & Chem 7: 11/23/17 07:24 11/23/17 07:24 Labs: Short CBC 11/23/17 Range/Units 07:24 WBC 8.9 D (4.3-11.1) K/mcL Hgb 8.4 L (11.5-15.4) g/dL Hct 27.6 L (35.3-44.9) % Plt Count 89 L (140-400) K/mcL BMP 11/23/17 07:24 Sodium 141 Potassium 4.5 Chloride 98 Carbon Dioxide 31 H BUN 57 H Creatinine 5.03 H Glucose 90 Calcium 7.7 L Liver Function 11/23/17 Range/Units 07:24 Total Bilirubin 0.5 (0.3-1.0) mg/dL Direct Bilirubin 0.1 (0.0-0.2) mg/dL AST 15 (13-39) Units/L ALT 17 (7-52) Units/L Alkaline Phosphatase 43 (34-104) Units/L Albumin 3.3 L (3.5-5.7) g/dL - ABG Interpretation ABG results: PT/INR, D-dimer PT 16.2 Seconds (9.4-12.1) H 11/14/17 10:30 - VTE Documentation of Mechanical Device: Intermittent pneumatic compression device Consult Discharge Plan - Plan Referrals: Na Johansen, TYLER [Primary Care Provider] - 12/01/17 1:00 pm (Please follow up as schedule...)
[2017-11-24] MEDS: *HR* Promethazine 25 MG/ML VIAL IVP PRN ×3 (01:37→17:04)
[2017-11-24] MEDS: Ipratropium/Albuterol Neb 3 ML IH SCH ×6 (03:23→23:44)
[2017-11-24 06:07] LABS: Hematocrit 27.5 % (35.3-44.9); Hemoglobin 8.3 g/dL (11.5-15.4); Immature Platelets 7.2 % (1.1-6.1); Mean Corpuscular HGB Conc 30.2 g/dL (31.6-35.5); Mean Corpuscular Hemoglobin 28.9 pg (28.0-33.3); Mean Corpuscular Volume 95.8 fL (83.0-100.0); Mean Platelet Volume 11.9 fL (9.4-12.4); Red Blood Count 2.87 M/mcL (3.82-4.97)
[2017-11-24] MEDS: MethylPREDNISolone 40 MG/ML VIAL IVP SCH ×2 (06:07→17:03)
[2017-11-24] MEDS: Ondansetron 4 MG/2 ML VIAL IVP PRN ×3 (06:07→21:29)
[2017-11-24] MEDS: *HR* OxyCODONE Immed Rel 5 MG TABLET PO PRN ×4 (06:07→21:29)
[2017-11-24 06:09] LABS: Calcium 7.7 mg/dL (8.6-10.3); Potassium 5.1 mEq/L (3.5-5.1)
[2017-11-24 06:11] LABS: Albumin 3.2 g/dL (3.5-5.7); Albumin/Globulin Ratio 1.7 (1.1-2.2); Bilirubin,Direct 0.2 mg/dL (0.0-0.2); Bilirubin,Indirect 0.2 mg/dL (0.0-1.2); Bilirubin,Total 0.4 mg/dL (0.3-1.0); Globulin 1.9 g/dL (2.4-3.5); Total Protein 5.1 g/dL (6.4-8.9)
[2017-11-24] MEDS ORDERED: 0.9 % Sodium Chloride 250 ML IVC PRN (06:59)
[2017-11-24] MEDS: Budesonide/Formoterol 80/4.5 MDI IH SCH ×2 (08:00→19:48)
[2017-11-24] MEDS: Calcium Acetate 667 MG CAPSULE PO SCH ×3 (09:54→17:04)
--- NOTE | 2017-11-24 11:56 | Nephrology Progress Note ---
Date of Encounter: 11/24/17 Time of Encounter: 09:15 - Assessment and Plan (1) ESRD (end stage renal disease) on dialysis Current Visit: No Status: Chronic HD today. She is asking for a sleep aid and more potent pain meds (2) Hyperphosphatemia Current Visit: No Status: Chronic Counseled her to focus on improving control of her phos intake, which then helps lower iPTH and raise serum Ca. (3) Hypocalcemia Current Visit: No Status: Chronic Chronic. Using a higher Ca bath (3) with dialysis. (4) Anemia in CKD (chronic kidney disease) Current Visit: No Status: Chronic Goal Hgb is 10-11 and may need IV iron and/or IVANNA. Qualifiers: Chronic kidney disease stage: on chronic dialysis Qualified Code(s): N18.6 - End stage renal disease; D63.1 - Anemia in chronic kidney disease; D63.1 - Anemia in chronic kidney disease; Z99.2 - Dependence on renal dialysis; Z99.2 - Dependence on renal dialysis; Z99.2 - Dependence on renal dialysis; Z99.2 - Dependence on renal dialysis Subjective Principal diagnosis: hypoxic respiratiory failure 2/2 COPD exacerbation 2/2 PNA Interval history: Pt was s/e earlier today while on HD. She reported having chronic cough with sputum and pains that worsen with coughing. Still having chronic pain and she also reported problems with sleep. She voiced having ankle swelling which has also been causing discomfort, she said for about 2-3 days. She did not affirm F/ C but has chronic N/V and high colostomy output, which she affirmed. Objective - Vital Signs Vital signs: Vital Signs Temp Pulse Resp BP Pulse Ox 11/24/17 08:05 18 91 11/24/17 07:01 98.1 F 84 18 157/57 90 11/24/17 03:23 17 94 11/24/17 00:19 97.8 F 85 17 152/67 95 11/23/17 23:25 17 95 11/23/17 21:26 97.9 F 84 17 163/64 90 11/23/17 20:10 17 94 11/23/17 17:04 98.3 F 95 18 175/63 92 11/23/17 16:41 18 97 Intake and Output 11/23/17 11/24/17 11/24/17 23:59 07:59 15:59 Intake Total 100 / 100 Balance 100 / 100 Intake: Oral 100 / 100 Other: Meal Breakfast Percent of Meal Consumed 70% Weight 62.2 kg Patient Weight 11/24/17 23:59 Weight 62.2 kg - General Appearance Exam: General appearance: Present: cachectic, chronically ill, fatigue, frail EENT: Present: ATNC, PERRL, mucous membranes dry Neck: Present: supple Respiratory: Present: wheezing, rales, course breath sounds, rhonchi Cardiology: Present: edema (trace to 1+ pretibial pitting edema b/l), regular rate, regular rhythm, normal S1, normal S2 Dialysis Vascular Access: Arteriovenous Fistula thrill: Yes bruit: Yes Gastrointestinal: Present: normoactive bowel sounds, no tenderness, no guarding Integumentary: Present: no rash, warm and dry Neurologic: Present: no focal deficit, no asterixis, alert and oriented x3 Musculoskeletal: Present: no deformities, no erythema, no cyanosis Psychiatric: Present: depressed, cooperative - Lab 11/25/17 05:00 11/25/17 05:00 Most recent lab results Calcium 7.7 mg/dL (8.6-10.3) L 11/24/17 05:25 Phosphorus 8.6 mg/dL (2.7-4.5) H 11/17/17 05:28 Magnesium 1.9 mg/dL (1.6-2.6) 11/17/17 05:28 - VTE Documentation of Mechanical Device: Intermittent pneumatic compression device Consult Discharge Plan - Plan Referrals: Na Johansen, [employer] [Primary Care Provider] - 12/01/17 1:00 pm (Please follow up as schedule...)
[2017-11-24] MEDS: Fluconazole 400 MG/200 ML 400 MG/200 ML BAG IVPB SCH (17:05)
[2017-11-24] MEDS ORDERED: 0.9 % Sodium Chloride 2,000 ML ONE (18:04)
--- NOTE | 2017-11-25 00:17 | Internal Med Progress Note ---
Date of Encounter: 11/25/17 Time of Encounter: 15:12 - Assessment and plan (1) Sepsis Current Visit: Yes Status: Acute Assessment and plan: 72-year-old female with multiple medical comorbidities presented for sharp chest pain. She was found to be in severe sepsis upon admission. She is status post urostomy, status post colostomy, short bowel syndrome, end-stage renal disease on dialysis, atrial fibrillation not on anticoagulation due to chronic thrombocytopenia, chronic respiratory failure. she is admitted and being managed for sepsis secondary to bilateral pneumonia, acute respiratory failure with hypoxia. Incidental finding of fungemia in this admission. She continues to complain of cough, without sputum production. She also was found incidentally to have fractured a rib during her prior admission. Port-a-cath removed 11/18/17. Infectious Disease team has been consutled. Cultures show kelsey sp sensitive to azoles and caspofungin. Sepsis likely secondary to fungemia and pneumonia. Tachycardia and tachypnea resolved. Blood cultures 11/14 and 11/16 were both positive for Kelsey. Peripheral blood culture 11/17 is negative but A port cultures were positive. Blood cultures 11/19 - no growth to date. Continue with IV fluconazole. Zosyn course completed ID on board, recommendations in regards to duration of therapy appreciated. Qualifiers: Sepsis type: sepsis due to unspecified organism Qualified Code(s): A41.9 - Sepsis, unspecified organism (2) Pneumonia Current Visit: Yes Status: Suspected Assessment and plan: Finished 7 day course of Zosyn Pulmonology following, bronchoscopy may be considered if no improvement. Qualifiers: Pneumonia type: due to unspecified organism Laterality: right Lung location: lower lobe of lung Qualified Code(s): J18.1 - Lobar pneumonia, unspecified organism (3) Fungemia Current Visit: Yes Status: Acute Assessment and plan: Repeat blood culture is + for Kelsey lusitaniae x3. Per ID consult, continue with IV fluconazole; dosing is based on dialysis schedule. Monitor LFTs. Ophthalmology reports no evidence of endophthalmitis in either eye and no further acute management needed at this time. A-port removed without complications 11/18/17. Blood cultures 11/19 - NGTD Appreciate ID recs on duration of Flucanazole therapy (4) COPD (chronic obstructive pulmonary disease) Current Visit: No Status: Chronic Assessment and plan: Continue Solu-Medrol and Duo Neb [facility] Pulmonology recommendations on steroid dosing/taper. breath sounds improved today Qualifiers: COPD type: emphysema Emphysema type: panlobular Qualified Code(s): J43.1 - Panlobular emphysema (5) Chest pain Current Visit: Yes Status: Acute Assessment and plan: Present on admission EKG did not show signs of ischemia. Initial troponin 0.05 subsequent trops 0.07, 0.04 - likely baseline because of ESRD Echocardiogram: LV EF 60%, moderate LV diastolic dysfunction Seen by Cardiology 06/2017 for similar complaints; negative findings. Likely pleuritic and/or chostochondritis from infection and cough. [place] and Percocet (Q6H) were ineffective. On Roxicodone prn I had discussion with Cardiology team about patient. After discussion, I do believe we can hold off of consultation and holding off stress testing. This pain is likely musculoskelatal given it is reproducible. Likely pleuritis as well from infection. She has had a cardiac workup which was negative, see below for details. Patient is high risk with multiple co- morbidities for any cardiac interventions and so any sort of cardiac testing after this workup would not be warranted. Qualifiers: Chest pain type: unspecified Qualified Code(s): R07.9 - Chest pain, unspecified (6) Anemia in chronic kidney disease Current Visit: No Status: Chronic Assessment and plan: Today hemoglobin is 7.0 gradually declined. Patient will be transfused 2 units PRBC in dialysis 11/19/17. Continue to follow-up H&H. Qualifiers: Chronic kidney disease stage: on chronic dialysis Qualified Code(s): N18.6 - End stage renal disease; D63.1 - Anemia in chronic kidney disease; Z99.2 - Dependence on renal dialysis (7) ESRD (end stage renal disease) Current Visit: No Status: Chronic (8) Elevated troponin Current Visit: Yes Status: Chronic Assessment and plan: Elevated troponin likely secondary to chronic comorbidities. Will do stress test. (9) Hematuria Current Visit: Yes Status: Acute Assessment and plan: Possibly related to worsening thrombocytopenia. Urology following. H&H stable. Qualifiers: Hematuria type: gross Qualified Code(s): R31.0 - Gross hematuria (10) Severe malnutrition Current Visit: No Status: Chronic Assessment and plan: Patient was on TPN on last admission and no longer desirous of artificial nutrition. She is able to swallow fluids and solids. Continue to encourage PO intake, dietary consult. (11) Colostomy care Current Visit: No Status: Chronic Assessment and plan: Patient's colostomy is pink and moist. Colostomy bag contains gas and no signs of infection noted. Continue with colostomy care. - Subjective Interval history: Patient has no acute events. She is complaining of increased mucus secretions, asks for stronger medication for chest pain, described in A/P. - Constitutional Vitals: Temp Pulse Resp BP Pulse Ox 98.7 F 84 16 154/66 78 11/24/17 19:48 11/24/17 19:48 11/24/17 19:48 11/24/17 19:48 11/24/17 19:48 General appearance: Present: A&O X 3, underweight, answers questions appropriately Exam: Gen: NAD, ambulates in room, AAOx3 CVS: irregularly irregular rhythm Lungs: course transmitted upper airway congestion sounds, decreased breath sounds at the bases, coarse breath sounds and wheezing throughout Colostomy bag present in tact Urostomy bag present in tact Ext: no edema. Internal Medicine: Result - Labs CBC & Chem 7: 11/24/17 05:25 11/24/17 05:25 Labs: Short CBC 11/24/17 Range/Units 05:25 WBC 12.0 H (4.3-11.1) K/mcL Hgb 8.3 L (11.5-15.4) g/dL Hct 27.5 L (35.3-44.9) % Plt Count 88 L (140-400) K/mcL BMP 11/24/17 05:25 Sodium 141 Potassium 5.1 Chloride 97 L Carbon Dioxide 30 H BUN 73 H Creatinine 6.27 H Glucose 105 Calcium 7.7 L Liver Function 11/24/17 Range/Units 05:25 Total Bilirubin 0.4 (0.3-1.0) mg/dL Direct Bilirubin 0.2 (0.0-0.2) mg/dL AST 14 (13-39) Units/L ALT 16 (7-52) Units/L Alkaline Phosphatase 44 (34-104) Units/L Albumin 3.2 L (3.5-5.7) g/dL - ABG Interpretation ABG results: PT/INR, D-dimer PT 16.2 Seconds (9.4-12.1) H 11/14/17 10:30 - VTE Documentation of Mechanical Device: Intermittent pneumatic compression device Consult Discharge Plan - Plan Referrals: Na Johansen CNP [Primary Care Provider] - 12/01/17 1:00 pm (Please follow up as schedule...)
[2017-11-25] MEDS: *HR* Promethazine 25 MG/ML VIAL IVP PRN ×3 (00:51→15:31)
[2017-11-25] MEDS: Ondansetron 4 MG/2 ML VIAL IVP PRN ×3 (03:47→19:51)
[2017-11-25] MEDS: *HR* OxyCODONE Immed Rel 5 MG TABLET PO PRN ×4 (03:47→17:31)
[2017-11-25] MEDS: Ipratropium/Albuterol Neb 3 ML IH SCH ×6 (05:02→23:36)
[2017-11-25 05:25] LABS: Basophils % 0.1 %; Hemoglobin 8.3 g/dL (11.5-15.4); Mean Corpuscular Hemoglobin 29.4 pg (28.0-33.3); Mean Platelet Volume 11.6 fL (9.4-12.4); Red Blood Count 2.82 M/mcL (3.82-4.97)
[2017-11-25 05:27] LABS: Hematocrit 27.3 % (35.3-44.9); Immature Platelets 7.6 % (1.1-6.1); Lymphocytes # 0.6 K/mcL (0.6-4.6); Lymphocytes % 4.4 %; Mean Corpuscular HGB Conc 30.4 g/dL (31.6-35.5); Mean Corpuscular Volume 96.8 fL (83.0-100.0); Monocytes # 0.2 K/mcL (0.0-1.3); Monocytes % 1.5 %; Neutrophils # 11.5 K/mcL (1.6-8.9); Platelet Count 96 K/mcL (140-400); Red Cell Distribution Width 16.9 % (11.5-14.5)
[2017-11-25 05:46] LABS: Calcium 8.1 mg/dL (8.6-10.3); Magnesium 1.5 mg/dL (1.6-2.6); Potassium 4.1 mEq/L (3.5-5.1)
[2017-11-25] MEDS: MethylPREDNISolone 40 MG/ML VIAL IVP SCH (06:01)
[2017-11-25] MEDS: Budesonide/Formoterol 80/4.5 MDI IH SCH ×2 (07:55→20:06)
[2017-11-25] MEDS: Calcium Acetate 667 MG CAPSULE PO SCH ×3 (08:36→17:31)
--- NOTE | 2017-11-25 14:20 | Internal Med Progress Note ---
Date of Encounter: 11/25/17 Time of Encounter: 11:00 - Assessment and plan (1) Sepsis Current Visit: Yes Status: Acute Assessment and plan: Improved. 72-year-old female with multiple medical comorbidities presented for sharp chest pain and cough. She was found to be in severe sepsis upon admission. She is status post urostomy, status post colostomy, short bowel syndrome, end-stage renal disease on dialysis, atrial fibrillation not on anticoagulation due to chronic thrombocytopenia, chronic respiratory failure. she is admitted and being managed for sepsis secondary to bilateral pneumonia, acute respiratory failure with hypoxia. Incidental finding of fungemia in this admission. She continues to complain of cough, without sputum production. She also was found incidentally to have fractured a rib during her prior admission. Port-a-cath removed 11/18/17. Infectious Disease team has been consutled. Cultures show davide sp sensitive to azoles and caspofungin. Sepsis likely secondary to fungemia and pneumonia. Tachycardia and tachypnea resolved. Blood cultures 11/14 and 11/16 were both positive for Davide. Peripheral blood culture 11/17 is negative but A port cultures were positive. Blood cultures - no growth to date. Per ID, continue with IV fluconazole on hemodialysis days only; treatment to last through 12/02/2017. Zosyn course completed. Patient reports that she is not back to baseline and feels uncomfortable being discharged. She continues to have weakness, diffuse pain, chest pain with cough. Continue to monitor the patient today. Plan to discharge tomorrow Qualifiers: Sepsis type: sepsis due to unspecified organism Qualified Code(s): A41.9 - Sepsis, unspecified organism (2) Fungemia Current Visit: Yes Status: Acute Assessment and plan: Fungemia and pneumonia likely cause of sepsis presentation. Blood culture determined causative organism to be davide lusitiniae. Her A-report was removed on 2017 due to suspicion of source of infection. Source is still unclear as the A-port culture is negative, but it was drawn after antifungals were started. Ophthalmology was consulted and reports no acute need for intervention. Per ID, continue with IV fluconazole, 400 mg IV daily on dialysis days only until 12/02/2017 (14 days from removal of A-Port). Continue to monitor liver enzymes. (3) Pneumonia Current Visit: Yes Status: Acute Assessment and plan: Bilateral pneumonia noted. Costovertebral organism unclear but possible bilateral. RIP positive for HSV and coronal virus. His sputum cultures positive for S. maltophilia, PTSD 8, Escherichia coli. Course of Zosyn completed. Repeat chest x-ray demonstrated left lower lobe infiltrate and interstitial pulmonary edema. Pneumonia appears to not have improved since admission. Likely cause of pneumonia is viral. Continue to monitor patient's respiratory function. Respiratory support as needed. Continue with Duoneb, Symbicort, Solu-Medrol changed to prednisone as patient is able to tolerate by mouth. Taper steroids as appropriate. Qualifiers: Pneumonia type: due to unspecified organism Laterality: bilateral Lung location: lower lobe of lung Qualified Code(s): J18.9 - Pneumonia, unspecified organism (4) Chest pain Current Visit: Yes Status: Acute Assessment and plan: Present on admission EKG did not show signs of ischemia. Initial troponin 0.05 subsequent trops 0.07, 0.04 - likely baseline because of ESRD Echocardiogram: LV EF 60%, moderate LV diastolic dysfunction Seen by Cardiology 06/2017 for similar complaints; negative findings. Likely pleuritic and/or chostochondritis from infection and cough. [place] and Percocet (Q6H) were ineffective. On Roxicodone prn This pain is likely musculoskelatal given it is reproducible. Likely pleuritis as well from infection. She has had a cardiac workup which was negative. Patient is high risk with multiple co-morbidities for any cardiac interventions and so any sort of cardiac testing after this workup would not be warranted. Qualifiers: Chest pain type: unspecified Qualified Code(s): R07.9 - Chest pain, unspecified (5) Nausea & vomiting Current Visit: Yes Status: Acute Assessment and plan: Continue with phenergan and zofran and IVF Qualifiers: Qualified Code(s): R11.2 - Nausea with vomiting, unspecified (6) ESRD (end stage renal disease) Current Visit: No Status: Chronic Assessment and plan: Patient tolerated HD well today. Continue with HD MWF. Monitor kidney function with morning labs. (7) COPD (chronic obstructive pulmonary disease) Current Visit: No Status: Chronic Assessment and plan: Changed solumedrol to prednisone as patient is able to tolerate PO. Continue with respiratory support. Qualifiers: COPD type: emphysema Emphysema type: panlobular Qualified Code(s): J43.1 - Panlobular emphysema (8) Severe malnutrition Current Visit: No Status: Chronic Assessment and plan: Patient was on TPN on last admission and no longer desirous of artificial nutrition. She is able to swallow fluids and solids. Continue to encourage PO intake, dietary consult. (9) Elevated troponin Current Visit: Yes Status: Chronic Assessment and plan: Elevated troponin likely secondary to chronic comorbidities and demand ischemia. (10) Colostomy care Current Visit: No Status: Chronic Assessment and plan: Patient's colostomy is pink and moist. Colostomy bag contains gas and no signs of infection noted. Continue with colostomy care. (11) Anemia in CKD (chronic kidney disease) Current Visit: No Status: Chronic Assessment and plan: Chronic anemia at baseline. No acute issues. No signs of bleed. H&H stable and at baseline (8.3<8.3<8.4). Continue with scheduled HD. Qualifiers: Chronic kidney disease stage: on chronic dialysis Qualified Code(s): N18.6 - End stage renal disease; D63.1 - Anemia in chronic kidney disease; D63.1 - Anemia in chronic kidney disease; Z99.2 - Dependence on renal dialysis; Z99.2 - Dependence on renal dialysis; Z99.2 - Dependence on renal dialysis; Z99.2 - Dependence on renal dialysis - Subjective Interval history: 72F PMHx A. fib, COPD, GERD, HTN, ESRD on HD, thyroid disease, urosteomy, clostomy presented for 1 hour left sharp nonradiating pain. She reports CP has improved, but continues to have SOB and dry cough. Patient reports that she has had brown stool and gas in colostomy. She is to not producing urine. Reports that this is her baseline. She continues to have left lower quadrant abdominal pain. Denies fever, chills, nausea, vomiting. She continues to have substernal chest pain 7 out of 10, worse with coughing. Pain is reproducible with coughing. Reports 8 out of 10 pain on site of previous A-port. Patient reports that she is not back to baseline. - Constitutional Vitals: Temp Pulse Resp BP Pulse Ox 98.3 F 83 17 165/66 92 11/25/17 11:43 11/25/17 11:43 11/25/17 11:48 11/25/17 11:43 11/25/17 11:48 General appearance: Present: cachectic, A&O X 3, underweight, answers questions appropriately Exam: Patient appears chronically ill - Head Head exam: Present: atraumatic, normocephalic - Eye Eye exam: Present: scleral icterus - ENT ENT exam: Present: mucous membranes dry - Neck Neck exam general surgery: Present: supple, trachea midline. Absent: lymphadenopathy - Respiratory Respiratory exam: Present: rales, rhonchi Additional comments: Dyspneic and bilateral crackles noted - Cardiovascular Cardiovascular exam: Present: distant heart sounds, +S1, +S2 - GI/Abdominal GI/Abdominal exam: Present: diminished bowel sounds, distended, tenderness ( diffusely ), no peritoneal signs. Absent: guarding Additional comments: Colostomy back filled with gas and brown stool - Extremities Exam Extremities exam: Present: full ROM, pedal edema (Plus pedal edema bilateral lower extremities), tenderness, warm, radial pulses palpable and symmetrical. Absent: cyanotic - Incison Incision: Present: clean and dry, intact. Absent: purulent Comments: Anterior chest a-port removal incision is clean and dry and intact - Neurological Exam Neurological exam: Present: altered, CN II-XII intact, oriented X3. Absent: facial droop, speech deficit Additional comments: Loss of sensation and numbness on left lower extremity. Strength 4 out of 5 on the left lower extremity. - Skin Skin exam: Present: dry, intact Internal Medicine: Result - Labs CBC & Chem 7: 11/25/17 05:00 11/25/17 05:00 Labs: Short CBC 11/25/17 Range/Units 05:00 WBC 12.4 H (4.3-11.1) K/mcL Hgb 8.3 L (11.5-15.4) g/dL Hct 27.3 L (35.3-44.9) % Plt Count 96 L (140-400) K/mcL Neutrophils # 11.5 H (1.6-8.9) K/mcL BMP 11/25/17 05:00 Sodium 143 Potassium 4.1 Chloride 100 Carbon Dioxide 32 H BUN 45 H Creatinine 4.31 H Glucose 97 Calcium 8.1 L - ABG Interpretation ABG results: PT/INR, D-dimer PT 16.2 Seconds (9.4-12.1) H 01/12/18 10:30 - Impressions Impressions Chest X-Ray 11/25/17 11:35 IMPRESSION: 1. Left lower lobe infiltrate could represent atelectasis or pneumonia. 2. Interstitial pulmonary edema. D/ / 11/25/2017 13:15:24 Rob Williamson MD / Christina Dale Interpreting Provider: Rob Williamson MD - VTE Documentation of Mechanical Device: Intermittent pneumatic compression device Consult Discharge Plan - Plan Referrals: Na Johansen, TYLER [Primary Care Provider] - 12/01/17 1:00 pm (Please follow up as schedule...)
[2017-11-25] MEDS: predniSONE 20 MG TABLET PO SCH (17:30)
[2017-11-26] MEDS: *HR* Promethazine 25 MG/ML VIAL IVP PRN ×2 (00:08→23:21)
[2017-11-26] MEDS: *HR* OxyCODONE Immed Rel 5 MG TABLET PO PRN ×5 (00:08→20:31)
[2017-11-26] MEDS: Ondansetron 4 MG/2 ML VIAL IVP PRN ×3 (03:33→20:31)
[2017-11-26] MEDS: Ipratropium/Albuterol Neb 3 ML IH SCH ×6 (03:56→23:46)
[2017-11-26 04:12] LABS: Hematocrit 24.7 % (35.3-44.9); Mean Corpuscular Volume 95.7 fL (83.0-100.0); Red Blood Count 2.58 M/mcL (3.82-4.97)
[2017-11-26 04:13] LABS: Hemoglobin 7.5 g/dL (11.5-15.4); Immature Platelets 5.2 % (1.1-6.1); Mean Corpuscular HGB Conc 30.4 g/dL (31.6-35.5); Mean Corpuscular Hemoglobin 29.1 pg (28.0-33.3); Mean Platelet Volume 11.3 fL (9.4-12.4); Red Cell Distribution Width 16.8 % (11.5-14.5)
[2017-11-26 04:19] LABS: Calcium 7.4 mg/dL (8.6-10.3)
[2017-11-26] MEDS ORDERED: 0.9 % Sodium Chloride 250 ML IVC PRN (06:51)
[2017-11-26] MEDS: Calcium Acetate 667 MG CAPSULE PO SCH ×3 (07:37→18:08)
[2017-11-26] MEDS: predniSONE 20 MG TABLET PO SCH (07:37)
[2017-11-26] MEDS ORDERED: 0.9 % Sodium Chloride 2,000 ML ONE (09:31)
--- NOTE | 2017-11-26 09:43 | Internal Med Progress Note ---
<Alexis Jeter - Last Filed: 11/26/17 13:33> Date of Encounter: 11/26/17 Time of Encounter: 09:42 - Assessment and plan (1) Sepsis Current Visit: Yes Status: Acute Assessment and plan: Patient's white count did decrease to 8 from 12.4 and she was afebrile and nontachycardic overnight Infectious disease has signed off, but had recommended continuing Fluconazole until December 02 to complete 2 week course for fungemia Repeat cultures remain negative Qualifiers: Qualified Code(s): A41.9 - Sepsis, unspecified organism (2) Fungemia Current Visit: Yes Status: Acute Assessment and plan: Patient will continue fluconazole 400 mg IV on dialysis days until December 02, per infectious disease recommendations She was evaluated by ophthalmology and ruled out endophthalmitis (3) Pneumonia Current Visit: Yes Status: Acute Assessment and plan: Chest x-ray yesterday did demonstrate left lower lobe infiltrate, whereas she initially presented with bibasilar opacities greater on the right Given that she has unresolved pneumonia, we will obtain a CTA to rule out empyema or abscess that may be contributing to her condition She did complete a seven-day course of Zosyn and is currently on IV fluconazole for fungemia as above Qualifiers: Pneumonia type: due to unspecified organism Laterality: bilateral Lung location: lower lobe of lung Qualified Code(s): J18.9 - Pneumonia, unspecified organism (4) Anemia in CKD (chronic kidney disease) Current Visit: No Status: Chronic Assessment and plan: Her Hb did drop from 8.3 to 7.5 this morning, but she still continues to have no signs of active bleed and remains hemodynamically stable We will repeat hemoglobin and hematocrit at 4 PM today and possible transfusion if levels drop under 7 Qualifiers: Chronic kidney disease stage: on chronic dialysis Qualified Code(s): N18.6 - End stage renal disease; D63.1 - Anemia in chronic kidney disease; D63.1 - Anemia in chronic kidney disease; Z99.2 - Dependence on renal dialysis; Z99.2 - Dependence on renal dialysis; Z99.2 - Dependence on renal dialysis; Z99.2 - Dependence on renal dialysis (5) Elevated troponin Current Visit: Yes Status: Acute Assessment and plan: Elevated troponin likely secondary demand ischemia in ESRD patient (6) ESRD (end stage renal disease) on dialysis Current Visit: No Status: Chronic Assessment and plan: Patient underwent dialysis today keeping with her Friday schedule Management per nephrology (7) COPD (chronic obstructive pulmonary disease) Current Visit: No Status: Chronic Assessment and plan: Not currently in exacerbation, but she is on steroid taper Continue supportive measures with breathing treatments and supplemental oxygen Qualifiers: COPD type: COPD with acute exacerbation Qualified Code(s): J44.1 - Chronic obstructive pulmonary disease with (acute) exacerbation (8) Chest pain Current Visit: Yes Status: Acute Assessment and plan: Likely musculoskeletal secondary to chronic cough as pain is reproducible We will obtain a CTA today Qualifiers: Chest pain type: unspecified Qualified Code(s): R07.9 - Chest pain, unspecified (9) Hypothyroid Current Visit: No Status: Chronic Assessment and plan: Continue home levothyroxine Qualifiers: Hypothyroidism type: unspecified Qualified Code(s): E03.9 - Hypothyroidism , unspecified (10) Thrombocytopenia Current Visit: No Status: Chronic Assessment and plan: Platelet remained stable at 90 She has no signs of active bleeding (11) Atrial fibrillation Current Visit: No Status: Chronic Assessment and plan: Currently in normal sinus rhythm Continue rate control with Cardizem Not candidate for anticoagulation due to chronic thrombocytopenia Qualifiers: Atrial fibrillation type: paroxysmal Qualified Code(s): I48.0 - Paroxysmal atrial fibrillation - Subjective Interval history: Pt seen and examined. She is still complaining of chest pain that is reproducible and also shortness of breath. Has no issues with any bleeding and states she ate most of her breakfast. - Constitutional Vitals: Temp Pulse Resp BP Pulse Ox 97.5 F L 87 18 113/55 93 11/26/17 07:55 11/26/17 06:56 11/26/17 07:55 11/26/17 09:25 11/26/17 07:42 General appearance: Present: cachectic, mild distress, A&O X 3, underweight, answers questions appropriately - Head Head exam: Present: atraumatic, normocephalic - Eye Eye exam: Present: PERRL, conjuntiva pink, sclera anicteric - Neck Neck exam general surgery: Present: supple, trachea midline. Absent: lymphadenopathy - Respiratory Respiratory exam: Present: rales (mild). Absent: accessory muscle use, rhonchi , wheezes - Cardiovascular Cardiovascular exam: Present: RRR, +S1, +S2. Absent: diastolic murmur, gallop, rubs, systolic murmur - GI/Abdominal GI/Abdominal exam: Present: normal bowel sounds, soft, no peritoneal signs. Absent: distended, tenderness - Extremities Exam Extremities exam: Present: pedal edema (trace), warm, radial pulses palpable and symmetrical. Absent: calf tenderness, cyanotic - Neurological Exam Neurological exam: Present: alert, no focal deficits. Absent: facial droop, speech deficit - Skin Skin exam: Present: dry, intact Internal Medicine: Result - Labs CBC & Chem 7: 11/26/17 03:50 11/26/17 03:50 Labs: Short CBC 11/26/17 Range/Units 03:50 WBC 8.0 (4.3-11.1) K/mcL Hgb 7.5 L (11.5-15.4) g/dL Hct 24.7 L (35.3-44.9) % Plt Count 90 L (140-400) K/mcL BMP 11/26/17 03:50 Sodium 143 Potassium 4.0 Chloride 101 Carbon Dioxide 29 BUN 58 H Creatinine 6.09 H Glucose 178 H Calcium 7.4 L - ABG Interpretation ABG results: PT/INR, D-dimer PT 16.2 Seconds (9.4-12.1) H 11/14/17 10:30 - Impressions Impressions Chest X-Ray 11/25/17 11:35 IMPRESSION: 1. Left lower lobe infiltrate could represent atelectasis or pneumonia. 2. Interstitial pulmonary edema. D/ / 11/25/2017 13:15:24 Rob Williamson MD / Christina Dale Interpreting Provider: Rob Williamson MD - VTE Documentation of Mechanical Device: Intermittent pneumatic compression device Consult Discharge Plan - Plan Referrals: Na Johansen, TYLER [Primary Care Provider] - 12/01/17 1:00 pm (Please follow up as schedule...) <Lion Topete - Last Filed: 11/26/17 15:55> Date of Encounter: 11/26/17 - Constitutional Vitals: Temp Pulse Resp BP Pulse Ox 97.6 F 70 16 134/37 93 11/26/17 11:29 11/26/17 11:29 11/26/17 11:42 11/26/17 11:15 11/26/17 11:42 Internal Medicine: Result - Labs CBC & Chem 7: 11/26/17 03:50 11/26/17 03:50 Labs: Short CBC 11/26/17 Range/Units 03:50 WBC 8.0 (4.3-11.1) K/mcL Hgb 7.5 L (11.5-15.4) g/dL Hct 24.7 L (35.3-44.9) % Plt Count 90 L (140-400) K/mcL BMP 11/26/17 03:50 Sodium 143 Potassium 4.0 Chloride 101 Carbon Dioxide 29 BUN 58 H Creatinine 6.09 H Glucose 178 H Calcium 7.4 L - ABG Interpretation ABG results: PT/INR, D-dimer PT 16.2 Seconds (9.4-12.1) H 11/14/17 10:30 - Impressions Impressions Chest X-Ray 11/25/17 11:35 IMPRESSION: 1. Left lower lobe infiltrate could represent atelectasis or pneumonia. 2. Interstitial pulmonary edema. D/ / 11/25/2017 13:15:24 Rob Williamson MD / Christina Dale Interpreting Provider: Rob Williamson MD - Attending Attestation As above. I personally interviewed and examined this patient. I reviewed all labs and studies. I agree with the findings, assessment, and plan of , internal medicine resident. Given persistent chest pain and infiltrates, we will check a CT of her thorax to rule out gram was not, loculated infection, other. She does appear to be clinically improving overall. She will continue Diflucan after dialysis as directed by infectious disease. Need to rule out ongoing pulmonary infection.
[2017-11-26] MEDS: Budesonide/Formoterol 80/4.5 MDI IH SCH ×2 (10:43→20:03)
[2017-11-26 16:37] LABS: Hematocrit 23.5 % (35.3-44.9); Hemoglobin 7.3 g/dL (11.5-15.4)
[2017-11-26] MEDS: Fluconazole 400 MG/200 ML 400 MG/200 ML BAG IVPB SCH (18:08)
--- NOTE | 2017-11-26 19:01 | Nephrology Progress Note ---
Date of Encounter: 11/26/17 Time of Encounter: 09:30 - Assessment and Plan (1) ESRD (end stage renal disease) on dialysis Current Visit: No Status: Chronic Dialysis note: she tolerated her treatment up until about 15-20min remaining at which point her needles came loose when she was holding onto a bedside tray/ table, as per the business systems analyst. Will next plan for HD on Friday. Please feel free to call or page me with any renal questions. Thank you. (2) Hyperphosphatemia Current Visit: No Status: Chronic Phos restriction in her diet is recommended. (3) Hypocalcemia Current Visit: No Status: Chronic Chronic. Using a higher Ca bath (3) with dialysis. (4) Anemia in CKD (chronic kidney disease) Current Visit: No Status: Chronic Goal Hgb is 10-11 and may need IV iron and/or IVANNA. Qualifiers: Chronic kidney disease stage: on chronic dialysis Qualified Code(s): N18.6 - End stage renal disease; D63.1 - Anemia in chronic kidney disease; D63.1 - Anemia in chronic kidney disease; Z99.2 - Dependence on renal dialysis; Z99.2 - Dependence on renal dialysis; Z99.2 - Dependence on renal dialysis; Z99.2 - Dependence on renal dialysis Subjective Principal diagnosis: hypoxic respiratiory failure 2/2 COPD exacerbation 2/2 PNA Interval history: Pt was s/e earlier today while on HD. She was sleeping. Objective - Vital Signs Vital signs: Vital Signs Temp Pulse Resp BP Pulse Ox 11/26/17 17:04 97.6 F 91 16 154/72 99 11/26/17 16:31 16 99 11/26/17 16:20 97.9 F 78 16 142/44 99 11/26/17 11:42 16 93 11/26/17 11:29 97.6 F 70 16 93 11/26/17 11:15 97.2 F L 18 134/37 11/26/17 10:55 129/44 11/26/17 10:40 136/46 11/26/17 10:25 122/43 11/26/17 10:10 112/40 11/26/17 09:55 142/43 11/26/17 09:40 125/48 11/26/17 09:25 113/55 11/26/17 09:10 131/36 11/26/17 08:55 128/42 11/26/17 08:40 160/70 11/26/17 08:25 114/46 11/26/17 08:10 130/42 11/26/17 07:55 97.5 F L 18 122/46 11/26/17 07:42 93 11/26/17 06:56 97.7 F 87 16 124/44 93 11/26/17 03:56 16 97 11/26/17 03:52 97.4 F L 85 17 151/70 93 11/25/17 23:52 98.8 F 100 18 132/66 93 11/25/17 23:36 18 98 11/25/17 20:05 16 96 11/25/17 19:50 98.1 F 91 16 170/65 91 Intake and Output 11/26/17 11/26/17 11/26/17 07:59 15:59 23:59 Intake Total 600 / 600 Output Total 2664 / 2664 Balance 600 / 600 -2664 / -2664 Intake: Oral 0 / 0 Intake, Rinseback and Flushes 600 / 600 Output: Urine 0 / 0 Total Dialysis (HD) Output 2664 / 2664 Other: Hemodialysis Net Fluid Removed 0 2000 (mL) - General Appearance General appearance: Present: cachectic, fatigue, frail EENT: Present: ATNC Cardiology: Present: no edema, regular rate (based upon telemetry in dialysis unit), regular rhythm Dialysis Vascular Access: Venous Catheter Additional Comments: Permacath with dressing C/D/I - Lab 11/26/17 16:20 11/26/17 03:50 Most recent lab results Calcium 7.4 mg/dL (8.6-10.3) L 11/26/17 03:50 Phosphorus 5.0 mg/dL (2.7-4.5) H 11/25/17 05:00 Magnesium 1.5 mg/dL (1.6-2.6) L 11/25/17 05:00 - VTE Documentation of Mechanical Device: Intermittent pneumatic compression device Consult Discharge Plan - Plan Referrals: Na Johansen, COMPUTED TOMOGRAPHY TECHNOLOGIST [Primary Care Provider] - 12/01/17 1:00 pm (Please follow up as schedule...)
[2017-11-26] MEDS ORDERED: Vancomycin 1,000 MG in D5% in Water 250 ML IVPB ONE (20:00)
[2017-11-27] MEDS: *HR* OxyCODONE Immed Rel 5 MG TABLET PO PRN ×5 (00:40→21:45)
[2017-11-27] MEDS: Ipratropium/Albuterol Neb 3 ML IH SCH ×6 (03:54→23:50)
[2017-11-27 05:05] LABS: Hemoglobin 7.3 g/dL (11.5-15.4); Red Cell Distribution Width 16.9 % (11.5-14.5)
[2017-11-27 05:07] LABS: Hematocrit 24.5 % (35.3-44.9); Immature Platelets 6.2 % (1.1-6.1); Mean Corpuscular HGB Conc 29.8 g/dL (31.6-35.5); Mean Corpuscular Hemoglobin 29.1 pg (28.0-33.3); Mean Corpuscular Volume 97.6 fL (83.0-100.0); Mean Platelet Volume 11.7 fL (9.4-12.4); Red Blood Count 2.51 M/mcL (3.82-4.97)
[2017-11-27] MEDS: Ondansetron 4 MG/2 ML VIAL IVP PRN ×3 (05:20→18:08)
[2017-11-27 05:46] LABS: Calcium 7.3 mg/dL (8.6-10.3); Potassium 3.7 mEq/L (3.5-5.1)
[2017-11-27] MEDS: Budesonide/Formoterol 80/4.5 MDI IH SCH (07:30)
[2017-11-27] MEDS ORDERED: Aminoglycoside Consult 1 EACH MC ONE (08:17)
--- NOTE | 2017-11-27 08:25 | Internal Med Progress Note ---
<Alexis Jeter - Last Filed: 11/27/17 13:28> Date of Encounter: 11/27/17 Time of Encounter: 08:24 - Assessment and plan (1) Sepsis Current Visit: Yes Status: Acute Assessment and plan: Patient's white count remains stable at 8.4 and she was afebrile and nontachycardic overnight Infectious disease has signed off, but had recommended continuing Fluconazole until December 02 to complete 2 week course for fungemia Will re-consult ID as CT demonstrated septic emboli with cavitation; Vanc and Zosyn were added Repeat cultures collected Qualifiers: Qualified Code(s): A41.9 - Sepsis, unspecified organism (2) Fungemia Current Visit: Yes Status: Acute Assessment and plan: Patient will continue fluconazole 400 mg IV on dialysis days until December 02, per infectious disease recommendations She was evaluated by ophthalmology and ruled out endophthalmitis (3) Pneumonia Current Visit: Yes Status: Acute Assessment and plan: CTA revealed septic emboli in bilateral lobes and Vanc and Zosyn were added Continue on IV fluconazole for fungemia as above ID did recommend consulting pulmonology, who have been called Qualifiers: Pneumonia type: due to unspecified organism Laterality: bilateral Lung location: lower lobe of lung Qualified Code(s): J18.9 - Pneumonia, unspecified organism (4) Anemia in CKD (chronic kidney disease) Current Visit: No Status: Chronic Assessment and plan: Her Hb remained stable at 7.3 this morning, but she still continues to have no signs of active bleed and remains hemodynamically stable This is near her previous baseline Hb Qualifiers: Chronic kidney disease stage: on chronic dialysis Qualified Code(s): N18.6 - End stage renal disease; D63.1 - Anemia in chronic kidney disease; D63.1 - Anemia in chronic kidney disease; Z99.2 - Dependence on renal dialysis; Z99.2 - Dependence on renal dialysis; Z99.2 - Dependence on renal dialysis; Z99.2 - Dependence on renal dialysis (5) Elevated troponin Current Visit: Yes Status: Acute Assessment and plan: Elevated troponin likely secondary demand ischemia in ESRD patient (6) ESRD (end stage renal disease) on dialysis Current Visit: No Status: Chronic Assessment and plan: Patient underwent dialysis yesterday keeping with her Friday schedule Management per nephrology (7) COPD (chronic obstructive pulmonary disease) Current Visit: No Status: Chronic Assessment and plan: Not currently in exacerbation, but she is on steroid taper Continue supportive measures with breathing treatments and supplemental oxygen Qualifiers: COPD type: COPD with acute exacerbation Qualified Code(s): J44.1 - Chronic obstructive pulmonary disease with (acute) exacerbation (8) Chest pain Current Visit: Yes Status: Acute Assessment and plan: Likely musculoskeletal from PNA secondary to chronic cough as pain is reproducible Qualifiers: Chest pain type: unspecified Qualified Code(s): R07.9 - Chest pain, unspecified (9) Hypothyroid Current Visit: No Status: Chronic Assessment and plan: Continue home levothyroxine Qualifiers: Hypothyroidism type: unspecified Qualified Code(s): E03.9 - Hypothyroidism , unspecified (10) Thrombocytopenia Current Visit: No Status: Chronic Assessment and plan: Platelet remained stable at 92 She has no signs of active bleeding (11) Atrial fibrillation Current Visit: No Status: Chronic Assessment and plan: Currently in normal sinus rhythm Continue rate control with Cardizem Not candidate for anticoagulation due to chronic thrombocytopenia Qualifiers: Atrial fibrillation type: paroxysmal Qualified Code(s): I48.0 - Paroxysmal atrial fibrillation - Subjective Interval history: Pt seen and examined. She is still having chest pain and shortness of breath with coughing. She does feel nauseous and has been vomiting as well, denying blood. Still has chronic diarrhea. - Constitutional Vitals: Temp Pulse Resp BP Pulse Ox 97.3 F L 81 16 154/70 99 11/27/17 06:29 11/27/17 06:29 11/27/17 07:30 11/27/17 06:29 11/27/17 07:30 General appearance: Present: cachectic, mild distress, underweight, answers questions appropriately - Head Head exam: Present: atraumatic, normocephalic - Eye Eye exam: Present: PERRL, conjuntiva pink, sclera anicteric - Neck Neck exam general surgery: Present: supple, trachea midline. Absent: lymphadenopathy - Respiratory Respiratory exam: Present: rales, wheezes. Absent: accessory muscle use, rhonchi - Cardiovascular Cardiovascular exam: Present: RRR, +S1, +S2. Absent: diastolic murmur, gallop, rubs, systolic murmur - GI/Abdominal GI/Abdominal exam: Present: normal bowel sounds, soft, no peritoneal signs. Absent: distended, tenderness - Extremities Exam Extremities exam: Present: warm, radial pulses palpable and symmetrical. Absent : calf tenderness, cyanotic, pedal edema - Neurological Exam Neurological exam: Present: alert, oriented X3, no focal deficits. Absent: facial droop, speech deficit - Skin Skin exam: Present: dry, intact Internal Medicine: Result - Labs CBC & Chem 7: 11/27/17 03:00 11/27/17 03:00 Labs: Short CBC 11/26/17 11/27/17 Range/Units 16:20 03:00 WBC 8.4 (4.3-11.1) K/mcL Hgb 7.3 L 7.3 L (11.5-15.4) g/dL Hct 23.5 L 24.5 L (35.3-44.9) % Plt Count 92 L (140-400) K/mcL BMP 11/27/17 03:00 Sodium 142 Potassium 3.7 Chloride 100 Carbon Dioxide 30 H BUN 34 H Creatinine 4.04 H Glucose 118 H Calcium 7.3 L - ABG Interpretation ABG results: PT/INR, D-dimer PT 16.2 Seconds (9.4-12.1) H 11/14/17 10:30 - Impressions Impressions Chest CT 11/26/17 15:40 IMPRESSION: 1. New when compared to the previous examination are multiple focal areas of consolidation seen within the periphery of the lungs, some with focal cavitation. Given the rapid development, septic emboli are primarily considered (especially if there was evidence of port infection). 2. In addition, there are innumerable punctate centrilobular tree-in-bud ground-glass nodules. These have an inflammatory/infectious appearance. These can be secondary to infectious bronchiolitis (and in that case consider both typical and atypical etiologies). These could also be hematogenous is well. 3. These processes must be followed to resolution. D/ / Frank Ho MD / Frank Ho MD Interpreting Provider: Frank Ho MD - VTE Documentation of Mechanical Device: Intermittent pneumatic compression device Consult Discharge Plan - Plan Referrals: Eleno,Na K, GENERAL OPHTHALMOLOGIST [Primary Care Provider] - 12/01/17 1:00 pm (Please follow up as schedule...) <Lion Topete - Last Filed: 11/30/17 17:50> Date of Encounter: 11/27/17 - Assessment and plan (1) Sepsis Current Visit: Yes Status: Acute Qualifiers: Sepsis type: sepsis due to unspecified organism Qualified Code(s): A41.9 - Sepsis, unspecified organism (2) Fungemia Current Visit: Yes Status: Acute (3) Cavitary lesion of lung Current Visit: Yes Status: Acute (4) Pneumonia Current Visit: Yes Status: Suspected Qualifiers: Pneumonia type: due to unspecified organism Laterality: right Lung location: lower lobe of lung Qualified Code(s): J18.1 - Lobar pneumonia, unspecified organism (5) Bicytopenia Current Visit: No Status: Chronic (6) Chest pain Current Visit: Yes Status: Acute Qualifiers: Chest pain type: unspecified Qualified Code(s): R07.9 - Chest pain, unspecified (7) Elevated troponin Current Visit: Yes Status: Acute (8) Acute respiratory failure with hypoxia Current Visit: No Status: Resolved (9) Atrial fibrillation with rapid ventricular response Current Visit: No Status: Resolved (10) Nausea and vomiting Current Visit: No Status: Chronic Qualifiers: Vomiting type: unspecified Vomiting Intractability: non-intractable Qualified Code(s): R11.2 - Nausea with vomiting, unspecified (11) Abdominal pain Current Visit: No Status: Chronic Qualifiers: Abdominal location: lower abdomen, unspecified Qualified Code(s): R10.30 - Lower abdominal pain, unspecified (12) Anemia in chronic kidney disease Current Visit: No Status: Chronic Qualifiers: Chronic kidney disease stage: on chronic dialysis Qualified Code(s): N18.6 - End stage renal disease; D63.1 - Anemia in chronic kidney disease; Z99.2 - Dependence on renal dialysis (13) COPD (chronic obstructive pulmonary disease) Current Visit: No Status: Chronic Qualifiers: COPD type: emphysema Emphysema type: panlobular Qualified Code(s): J43.1 - Panlobular emphysema (14) ESRD (end stage renal disease) on dialysis Current Visit: No Status: Chronic (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 (16) Tobacco abuse Current Visit: No Status: Chronic (17) Gross hematuria Current Visit: No Status: Inactive - Constitutional Vitals: Temp Pulse Resp BP Pulse Ox 97.7 F 92 17 146/71 93 11/30/17 15:35 11/30/17 15:35 11/30/17 16:07 11/30/17 15:35 11/30/17 16:07 Internal Medicine: Result - Labs CBC & Chem 7: 11/30/17 04:50 11/30/17 04:50 Labs: Short CBC 11/30/17 Range/Units 04:50 WBC 3.3 L (4.3-11.1) K/mcL Hgb 8.1 L (11.5-15.4) g/dL Hct 26.0 L (35.3-44.9) % Plt Count 62 L (140-400) K/mcL BMP 11/30/17 04:50 Sodium 142 Potassium 4.8 Chloride 105 Carbon Dioxide 25 BUN 44 H Creatinine 5.64 H Glucose 118 H Calcium 6.3 L - ABG Interpretation ABG results: PT/INR, D-dimer PT 16.2 Seconds (9.4-12.1) H 11/14/17 10:30 - Attending Attestation I personally interviewed and examined this pt. I agree with the findings, assessment and plan of Dr. Jeter, Internal Medicine Resident. My input is reflected in today's note and we discussed the case in detail.
[2017-11-27] MEDS: predniSONE 20 MG TABLET PO SCH (09:22)
[2017-11-27] MEDS: Calcium Acetate 667 MG CAPSULE PO SCH ×3 (09:22→18:08)
[2017-11-27] MEDS: *HR* Promethazine 25 MG/ML VIAL IVP PRN ×3 (09:22→21:45)
[2017-11-27] MEDS ORDERED: Piperacillin/Tazobactam 3.375 GM/200 ML BAG IVPB SCH ×4 (10:07→12:00)
[2017-11-27] MEDS ORDERED: Piperacillin/Tazobactam 3.375 GM/200 ML BAG IVPB ONE ×2 (11:00→20:00)
--- NOTE | 2017-11-27 11:26 | Pulmonology Consult Note ---
<Chico Tesfaye W - Last Filed: 11/27/17 13:47> Date of Encounter: 11/27/17 Medications and Allergies Cholecalciferol (Vitamin D3) [Vitamin D3] 5,000 unit PO DAILY #0 09/19/15 [ History] Ranitidine HCl [Zantac] 150 mg PO HS 09/19/15 [History] Cyanocobalamin (B-12) [Vitamin B12] 1,000 mcg IM QMONTH 02/21/17 [History] Levothyroxine Sodium [Synthroid] 300 mcg PO DAILY 02/21/17 [History] Mometasone/Formoterol [Dulera 100 Mcg/5 Mcg Inhaler] 2 puff IH BID 02/21/17 [ History] Lidocaine/Prilocaine CREAM [[place]] 1 appl TP AD PRN 06/30/17 [History] Renal Vitamin [Renal Caps Softgel] 1 mg PO DAILY 06/30/17 [History] Acetaminophen [Tylenol] 650 mg PO Q6HR PRN #20 tab 07/10/17 [Rx] Menthol [[place]] 3.2 mg MM Q4H PRN 07/16/17 [History] Diltiazem CD (24hr) [Cardizem CD] 120 mg PO DAILY cap.er.24h 09/14/17 [Rx] GuaiFENesin ER [Mucinex] 600 mg PO BID 5 Days #10 tbbp.12hr 09/14/17 [Rx] Nicotine Patch [Nicoderm] 21 mg TD DAILY #30 patch.td24 09/14/17 [Rx] Calcium Acetate [Phos-LO] 667 mg PO TIDWM 10/17/17 [History] Amitriptyline [Elavil] 50 mg PO HS tablet 10/24/17 [Rx] Benzonatate [Tessalon] 100 mg PO TID PRN #90 capsule 10/24/17 [Rx] Calcitriol [Rocaltrol] 0.25 mcg PO DAILY capsule 10/24/17 [Rx] HYDROcodone/Acet 7.5/325 mg [[place] 7.5-325 mg] 1 tab PO Q6HR PRN #10 tablet [Rx] Ipratropium/Albuterol Neb [Duoneb] 3 ml IH [id number] inhsol 10/24/17 [Rx] Furosemide [Lasix] 20 mg PO DAILY 10/28/17 [History] Ferrous Sulfate 325 mg PO DAILY 11/14/17 [History] Gabapentin [Neurontin] 100 mg PO TID 11/14/17 [History] 3 Allergy/AdvReac Type Severity Reaction Status Date / Time codeine AdvReac Severe Vomiting Verified 03/06/17 15:22 naproxen [From Naprosyn] AdvReac Severe Vomiting Verified 03/06/17 15:22 All Systems: A 10-system review of systems was performed and is negative for pertinent findings except as documented above in the HPI. Physical Examination Vital Signs: Vital Signs, Last 4 Hours Temp Pulse Resp BP Pulse Ox 11/27/17 11:43 97.8 F 78 14 158/65 98 11/27/17 09:33 99 Results - Laboratory Findings CBC and BMP: 11/27/17 03:00 11/27/17 03:00 PT/INR, D-dimer PT 16.2 Seconds (9.4-12.1) H 11/14/17 10:30 Abnormal lab findings: Abnormal lab results RBC 2.51 M/mcL (3.82-4.97) L 11/27/17 03:00 Hgb 7.3 g/dL (11.5-15.4) L 11/27/17 03:00 Hct 24.5 % (35.3-44.9) L 11/27/17 03:00 MCHC 29.8 g/dL (31.6-35.5) L 11/27/17 03:00 RDW 16.9 % (11.5-14.5) H 11/27/17 03:00 Plt Count 92 K/mcL (140-400) L 11/27/17 03:00 Neutrophils # 11.5 K/mcL (1.6-8.9) H 11/25/17 05:00 Immature Plt Fraction 6.2 % (1.1-6.1) H 11/27/17 03:00 PT 16.2 Seconds (9.4-12.1) H 11/14/17 10:30 VBG pH 7.31 pH Units (7.32-7.42) L 11/17/17 06:13 VBG pO2 74 mmHg (25-50) H 11/17/17 06:13 Carbon Dioxide 30 mEq/L (23-29) H 11/27/17 03:00 BUN 34 mg/dL (8-23) H 11/27/17 03:00 Creatinine 4.04 mg/dL (0.60-1.20) H 11/27/17 03:00 Est GFR ( Amer) 13 (> 60) L 11/27/17 03:00 Est GFR (Non-Af Amer) 11 (> 60) L 11/27/17 03:00 Glucose 118 mg/dL (70-105) H 11/27/17 03:00 POC Glucose 91 (58-89) H 11/20/17 11:16 Calculated Osmolality 303 (280-300) H 11/27/17 03:00 Calcium 7.3 mg/dL (8.6-10.3) L 11/27/17 03:00 Venous Ioniz Calcium 0.99 mmol/L (1.15-1.35) L 11/17/17 06:13 Phosphorus 5.0 mg/dL (2.7-4.5) H 11/25/17 05:00 Magnesium 1.5 mg/dL (1.6-2.6) L 11/25/17 05:00 Troponin I 0.04 ng/mL (< 0.04) H* 11/14/17 22:40 Serum Total Protein 5.1 g/dL (6.4-8.9) L 11/24/17 05:25 Albumin 3.2 g/dL (3.5-5.7) L 11/24/17 05:25 Globulin 1.9 g/dL (2.4-3.5) L 11/24/17 05:25 Coronavirus HKU1 (PCR) DETECTED (Not Detect) A 11/18/17 08:41 RSV (PCR) DETECTED (Not Detect) A 11/18/17 08:41 B-(1,3)-D-Glucan Intrp POSITIVE (Negative) A 11/17/17 17:31 - Microbiology Findings Microbiology Findings: Microbiology, Last 48 Hours 11/16/17 05:13 Blood Fungal Culture - Final Peripheral Venipuncture No growth. - Clinical Findings Intake & Output: Intake & Output 11/26/17 11/27/17 11/27/17 23:59 07:59 15:59 Intake Total 0 / 0 Output Total 0 / 0 Balance 0 / 0 Consult Discharge Plan - Plan Referrals: Na Johansen, INSIGHTS ANALYST [Primary Care Provider] - 12/01/17 1:00 pm (Please follow up as schedule...) - Attending Attestation I examined this patient and my medical decision-making was reviewed with the Resident Physician. I agree with the documented findings, disposition and treatment plan as described except to the extent set forth below. We independently had [id number] contact with the patient 72yo with advanced Lung Disease an chronic respiratory failure including a history of Stenotrophomonas Infection in setting of ESRD Worsening symptoms of chest pain Admitted for sepsis s/t Davide Bacteremia CT scan personally reviewed my myself notable for b/l Septic Emboli and Bronchiolitis She is being treated for Candidemia per ID recs. CT changes of unknown chronicity/tempo given no CT scan this admission -She remains at risk for MDR/atypical infections and will proceed with Bronchoscopy (discussed risks including hemorrhage, hypoxia, damage to airways and vocal cords, pneumothorax, negative test results requiring additional testing/repeat procedure and in a small percentage of patients ) and patient agrees to proceed Continue BDs and Steroids per routine. Given recurrent PNA would stop ICS Agressive Bronchopulmonary Hygiene. R/o Cardiac Causes of Chest Pain including ECG and Trop. ABx per ID recs. Consider Palliative Care consult for symptoms managment and ongoing Goals of Care. NPO at [place] d/w Housestaff. <Raudel Hardy - Last Filed: 11/27/17 14:30> Date of Encounter: 11/27/17 Time of Encounter: 11:13 Assessment and Plan (1) Pneumonia Current Visit: Yes Status: Acute Admitted with sepsis and pneumonia Chronic Respiratory Failure with history of lung infections, including Stenotrophomonas Infection Chest CTA: Multiple focal areas of consolidation seen within the periphery of the lungs, some with focal cavitation. Septic emboli are primarily considered with recent infection, but may be related to chronic inflammatory changes. Innumerable punctate centrilobular vlnj-ae-fjrqjsmcf-glass nodules that may be consistent with hematogenous spread. Positive blood cultures for davide lusitaniae with likely source of infection in arterial port that has now been removed - Currently on Fluconazole Pt currently on Zosyn and Vancomycin as well (earlier this admission completed a 7 day course of Zosyn) Fungal infection resulting in septic emboli is the primary consideration, but other causes can not be ruled out at this time Plan for bronchoscopy tomorrow for further evaluation, NPO at midnight Recommend duonebs and albuterol for respiratory support. Stop inhaled corticosteroid at this time Qualifiers: Pneumonia type: due to unspecified organism Laterality: bilateral Lung location: lower lobe of lung Qualified Code(s): J18.9 - Pneumonia, unspecified organism (2) Fungemia Current Visit: Yes Status: Acute On fluconazole. ID has been re-consulted (3) Chest pain Current Visit: Yes Status: Acute Reproducible. Likely musculoskeletal related with cough. But with worsening recommend evaluation Troponin has been elevated during her hospitalization, likely secondary to demand ischemia in the setting of ESRD Check EKG and Troponin Qualifiers: Chest pain type: unspecified Qualified Code(s): R07.9 - Chest pain, unspecified (4) COPD (chronic obstructive pulmonary disease) Current Visit: No Status: Chronic Continue steroids and respiratory support Qualifiers: COPD type: COPD with acute exacerbation Qualified Code(s): J44.1 - Chronic obstructive pulmonary disease with (acute) exacerbation (5) ESRD (end stage renal disease) on dialysis Current Visit: No Status: Chronic History of Present Illness Consult date: 11/27/17 Requesting physician: Alexis Jeter Reason for consult: abnormal CXR/CT Chief complaint: Dyspnea History of present illness: Ms. Parra is a 72 year old female with PMH of ESRD on dialysis M,W,F, COPD, A.fib (not on anticoagulation), thrombocytopenia, HTN, hypothyroidism, urostomy , and colostomy who was admitted on 11/14/17 for sepsis and pneumonia. She completed a 7 day course of Zosyn. 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 She has an arterial port that was swabbed after antimicrobials were initiated that was also positive for [place] lusitaniae and then that port was removed. She was complaining of increasing dyspnea and non-productive cough yesterday and a chest CT was ordered showing multiple focal areas of consolidation with consideration of septic emboli. It also showed many centrilobular tree-in-bud nodules ground glass nodules that likely indicate hematogenous spread. She is also complaining of constant, sharp, heavy chest pain that is reproducible to palpation. She reports that she feels weak and does not feel good. Also reporting nausea and diarrhea. Denies fevers, chills, palpitations, hemoptysis, or hematochezia. Past Med Surg Social Fam HX - Past Medical History Medical history: asthma, atrial fibrillation, COPD, GERD, hypertension, renal disease, thyroid disease, other (Short gut syndrome) Psychiatric history: no psych history - Past Surgical History Surgical History: appendectomy, cholecystectomy, colostomy, herniorrhaphy, hysterectomy, other (Colostomy 1991, cystectomy with urostomy 1986, ileocecal diversion 1985, SBR x 3 02/2012, Bowel resection and cecum with primary ileocolonic stapled anastatmosis 2011, closure small bowel perforation 2011, LUE AV shunt 2014) - Social History Smoking Status: Current every day smoker Packs per day: 1/2- Smokeless Tobacco Status: No Alcohol use: none Drug use: none - Family History Mother Adopted: No Living Status: Hx Family Cardiac Disorders: Yes ([place]/ Stroke) Hx Family Respiratory Disorders: No Hx Family Cancer: No Hx Family GI Disorders: No Hx Family Endocrine Disorder: No Hx Family Neuromuscular Disorders: No Hx Family Neurologic Disorders: No Hx Family HEENT Disorders: No Hx Family Autoimmune Disorders: No Father Adopted: No Living Status: Hx Family Cardiac Disorders: Yes ([place]) Hx Family Respiratory Disorders: No Hx Family Cancer: No Hx Family GI Disorders: No Hx Family Endocrine Disorder: No Hx Family Neuromuscular Disorders: No Hx Family Neurologic Disorders: No Hx Family HEENT Disorders: No Hx Family Autoimmune Disorders: No Brother Living Status: Still Living Hx Family Cardiac Disorders: Yes Hx Family Respiratory Disorders: No Hx Family Endocrine Disorder: Yes All Systems: A 10-system review of systems was performed and is negative for pertinent findings except as documented above in the HPI. Physical Examination Vital Signs: Vital Signs, Last 4 Hours Resp Pulse Ox 11/27/17 09:33 99 11/27/17 07:30 16 99 General appearance: appears uncomfortable Eyes: nonicteric ENT: oropharynx dry Effort: mildly labored Inspection: normal Auscultation: bilateral: wheezes, rales Cardiovascular: regular rate and rhythm Gastrointestinal: normoactive bowel sounds, non-distended Integumentary: normal Extremities: no cyanosis Musculoskeletal: no deformities normal mental status, non-focal exam Results - Laboratory Findings CBC and BMP: 11/27/17 03:00 11/27/17 03:00 PT/INR, D-dimer PT 16.2 Seconds (9.4-12.1) H 11/14/17 10:30 Abnormal lab findings: Abnormal lab results RBC 2.51 M/mcL (3.82-4.97) L 11/27/17 03:00 Hgb 7.3 g/dL (11.5-15.4) L 11/27/17 03:00 Hct 24.5 % (35.3-44.9) L 11/27/17 03:00 MCHC 29.8 g/dL (31.6-35.5) L 11/27/17 03:00 RDW 16.9 % (11.5-14.5) H 11/27/17 03:00 Plt Count 92 K/mcL (140-400) L 11/27/17 03:00 Neutrophils # 11.5 K/mcL (1.6-8.9) H 11/25/17 05:00 Immature Plt Fraction 6.2 % (1.1-6.1) H 11/27/17 03:00 PT 16.2 Seconds (9.4-12.1) H 11/14/17 10:30 VBG pH 7.31 pH Units (7.32-7.42) L 11/17/17 06:13 VBG pO2 74 mmHg (25-50) H 11/17/17 06:13 Carbon Dioxide 30 mEq/L (23-29) H 11/27/17 03:00 BUN 34 mg/dL (8-23) H 11/27/17 03:00 Creatinine 4.04 mg/dL (0.60-1.20) H 11/27/17 03:00 Est GFR ( Amer) 13 (> 60) L 11/27/17 03:00 Est GFR (Non-Af Amer) 11 (> 60) L 11/27/17 03:00 Glucose 118 mg/dL (70-105) H 11/27/17 03:00 POC Glucose 91 (58-89) H 11/20/17 11:16 Calculated Osmolality 303 (280-300) H 11/27/17 03:00 Calcium 7.3 mg/dL (8.6-10.3) L 11/27/17 03:00 Venous Ioniz Calcium 0.99 mmol/L (1.15-1.35) L 11/17/17 06:13 Phosphorus 5.0 mg/dL (2.7-4.5) H 11/25/17 05:00 Magnesium 1.5 mg/dL (1.6-2.6) L 11/25/17 05:00 Troponin I 0.04 ng/mL (< 0.04) H* 11/14/17 22:40 Serum Total Protein 5.1 g/dL (6.4-8.9) L 11/24/17 05:25 Albumin 3.2 g/dL (3.5-5.7) L 11/24/17 05:25 Globulin 1.9 g/dL (2.4-3.5) L 11/24/17 05:25 Coronavirus HKU1 (PCR) DETECTED (Not Detect) A 11/18/17 08:41 RSV (PCR) DETECTED (Not Detect) A 11/18/17 08:41 B-(1,3)-D-Glucan Intrp POSITIVE (Negative) A 11/17/17 17:31 - Microbiology Findings Microbiology Findings: Microbiology, Last 48 Hours 11/16/17 05:13 Blood Fungal Culture - Final Peripheral Venipuncture No growth. 11/19/17 07:30 Blood Culture - Final Port System No growth. 11/19/17 07:35 Blood Culture - Final Port System No growth. - Clinical Findings Intake & Output: Intake & Output 11/26/17 11/27/17 11/27/17 23:59 07:59 15:59 Intake Total 0 / 0 Output Total 0 / 0 Balance 0 / 0
--- NOTE | 2017-11-27 11:26 | Infectious Disease Progress No ---
Date of Encounter: 11/28/17 Time of Encounter: 11:24 - Assessment and Plan (1) Sepsis Current Visit: Yes Status: Acute Severe sepsis on admission. The patient had two SIRS criteria with hypotension responsive to IV fluids. Likely secondary to fungemia and PNA. Improved. The patient has been afebrile. Hypotension has resolved. Tachycardia has resolved. Peripheral blood cultures drawn 11/14/17 were positive 2/2 for Kelsey lusitaniae. Additional peripheral fungal blood culture drawn 11/16/17 is positive as well. Peripheral blood cultures drawn 11/17/16 were negative. A-port blood cultures drawn 11/17/17 were positive. The patient has had no additional SIRS criteria to indicate a new source of infection. Repeat blood cultures x 2 sets now. Qualifiers: Sepsis type: sepsis due to unspecified organism Qualified Code(s): A41.9 - Sepsis, unspecified organism (2) Fungemia Current Visit: Yes Status: Acute Causative organism Kelsey lusitiniae. Source unclear, but the patient was recently on TPN given through her a-port. Her a-port was removed 11/18/17. Peripheral blood cultures drawn 11/14/17 were positive 2/2. Additional peripheral fungal blood culture drawn 11/16/17 is positive as well. No blood cultures were drawn from the patient's a-port before antifungals were started. Repeat blood cultures x 2 sets from the a-port are positive and x2 sets from a peripheral stick drawn 11/17/17 are NGTD. Continue fluconazole, 400mg IV daily on HD days only. Opthalmology evaluation noted and appreciated. No endopthalmitis. LFTs remain normal. Okay to consult VAT for EPIV placement prior to discharge unless fluconazole can be given at the HD unit. Duration of treatment depends on the clinical picture. Monitor weekly CBC and LFTs while on antifungals. Weekly EPIV care per protocol if needed. (3) Cavitary lesion of lung Current Visit: Yes Status: Acute CTA of the chest shows new when compared to previous examination (Oct 2017) multiple focal areas of consolidation within the periphery of the lungs, some with focal cavitation. Per radiology, given the rapid development, septic emboli are primarily considered. In addition, there are innumerable punctate centrilobular tree-in-bud ground-glass nodules that have an inflammatory/ infectious appearance, likely related related to infectious bronchiolitis, but could also be hematogenous as well. CT scan reviewed with Pulmonology team. Pulmonology recommendations noted and appreciated. Planning for bronchoscopy tomorrow. Recommend cultures, AFB, and fungal studies. Continue antifungals as above. Discontinue Vanc and Zosyn. May check fungal serologies, but not sure if they will be helpful since the patient has been on fluconazole for some time now. Will discuss with pulmonology. Low index of suspicion for TB. (4) Pneumonia Current Visit: Yes Status: Suspected Location: Bilaterally. Causative organism unclear, but possible viral. RIP positive for HSV and Coronavirus. Previous sputum cultures positive for S. maltophilia, PSEA, and E. coli. CXR showed patchy airspace opacities bilaterally, more pronounced in the right lung base.. Previously completed a 7 day course of Levaquin. Review of the medical record shows that the patient has had multiple recurrences of PNA over the past six months. Pulmonology re-consulted and planning on taking the patient for bronch tomorrow. Antibiotic recommendations as above. Qualifiers: Pneumonia type: due to unspecified organism Laterality: right Lung location: lower lobe of lung Qualified Code(s): J18.1 - Lobar pneumonia, unspecified organism (5) Bicytopenia Current Visit: No Status: Chronic Continues to have anemia and thrombocytopenia. Continue trend. Further workup and management per the primary team. (6) Chest pain Current Visit: Yes Status: Acute Appears musculoskeletal in origin. Likely secondary to PNA and chostochondritis. Troponin elevated likely secondary to demand ischemia from ESRD, but may consider formal cardiology consult. Further workup and management per the primary team. Qualifiers: Chest pain type: unspecified Qualified Code(s): R07.9 - Chest pain, unspecified (7) Elevated troponin Current Visit: Yes Status: Acute Likely chronic secondary to CKD. EKG shows no acute changes. Further workup and management per the primary team. (8) Acute respiratory failure with hypoxia Current Visit: No Status: Resolved Likely secondary to PNA and COPD. Appears improved. (9) Atrial fibrillation with rapid ventricular response Current Visit: No Status: Resolved Likely secondary to sepsis. Appears resolved. (10) Nausea and vomiting Current Visit: No Status: Chronic Likely secondary to short gut syndrome. Management per the primary team. Qualifiers: Vomiting type: unspecified Vomiting Intractability: non-intractable Qualified Code(s): R11.2 - Nausea with vomiting, unspecified (11) Abdominal pain Current Visit: No Status: Chronic Chronic. Further workup and management per the primary team. Qualifiers: Abdominal location: lower abdomen, unspecified Qualified Code(s): R10.30 - Lower abdominal pain, unspecified (12) Anemia in chronic kidney disease Current Visit: No Status: Chronic Likely multifactorial: poor nutrition + anemia of CKD. Management per the primary and nephrology teams. Qualifiers: Chronic kidney disease stage: on chronic dialysis Qualified Code(s): N18.6 - End stage renal disease; D63.1 - Anemia in chronic kidney disease; Z99.2 - Dependence on renal dialysis (13) COPD (chronic obstructive pulmonary disease) Current Visit: No Status: Chronic Management per the primary and pulmonology teams. Qualifiers: COPD type: emphysema Emphysema type: panlobular Qualified Code(s): J43.1 - Panlobular emphysema (14) ESRD (end stage renal disease) on dialysis Current Visit: No Status: Chronic Nephrology consulted and following. 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 Recently started on TPN, but the patient could not tolerate. Likely contributing to the patient's poor nutritional status. Management per the primary team. (16) Tobacco abuse Current Visit: No Status: Chronic (17) Gross hematuria Current Visit: No Status: Inactive Chronic and intermittent. Etiology likely secondary to thrombocytopenia. Urology consulted and following. - Subjective Interval history: Re-consult requested by the hospitalist team due to septic emboli noted on CT chest. Patient seen and examined. Interim events noted. Patient resting quietly in bed with eyes closed, but awakens easily. Reports pain in her entire chest, worse with deep cough or inspiration. She continues to report shortness of breath with moist nonproductive cough, but does not appear to be in any acute distress. She reports chronic nausea and vomiting with by mouth intake. She reports liquid stool from her colostomy. She denies blood from her urostomy or colostomy. She reports little PO intake this morning due to nausea and vomiting. She denies oral thrush or new skin lesions. She denies fevers, chills , or rigors. Infect Dis PN-Objective Data - Labs CBC & Chem 7: 11/28/17 05:30 11/28/17 05:30 Labs: Laboratory Results - last 24 hr 11/26/17 11/27/17 11/27/17 16:20 03:00 03:00 WBC 8.4 RBC 2.51 L Hgb 7.3 L 7.3 L Hct 23.5 L 24.5 L MCV 97.6 MCH 29.1 MCHC 29.8 L RDW 16.9 H Plt Count 92 L MPV 11.7 Immature Plt Fraction 6.2 H Sodium 142 Potassium 3.7 Chloride 100 Carbon Dioxide 30 H BUN 34 H Creatinine 4.04 H Est GFR ( Amer) 13 L Est GFR (Non-Af Amer) 11 L BUN/Creatinine Ratio 8 Glucose 118 H Calculated Osmolality 303 H Calcium 7.3 L Random Vancomycin 11/27/17 03:00 WBC RBC Hgb Hct MCV MCH MCHC RDW Plt Count MPV Immature Plt Fraction Sodium Potassium Chloride Carbon Dioxide BUN Creatinine Est GFR ( Amer) Est GFR (Non-Af Amer) BUN/Creatinine Ratio Glucose Calculated Osmolality Calcium Random Vancomycin 18.7 Cultures: Cultures 11/16/17 05:13 Blood Fungal Culture - Final Peripheral Venipuncture No growth. 11/19/17 07:30 Blood Culture - Final Port System No growth. 11/19/17 07:35 Blood Culture - Final Port System No growth. 11/17/17 17:31 Blood Culture - Final Peripheral Venipuncture No growth. 11/17/17 17:31 Blood Culture - Final Peripheral Venipuncture No growth. 11/19/17 10:10 Catheter Tip Culture - Final Intravenous or Arterial Cath No growth. 11/17/17 18:09 Blood Culture - Final Port System Kelsey lusitaniae 11/16/17 05:05 Blood Fungal Culture - Final Peripheral Venipuncture Kelsey lusitaniae Serology 11/18/17 11/17/17 11/17/17 Range/Units 08:41 18:09 17:31 A. baumannii (PCR) Not Detected (Not Detect) Chlamy pneumoniae PCR Not Detected (Not Detect) Adenovirus (PCR) Not Detected (Not Detect) B. pertussis DNA (PCR) Not Detected (Not Detect) B.parapertussis DNA PCR Not Detected (Not Detect) Kelsey albicans (PCR) Not Detected (Not Detect) C. glabrata (PCR) Not Detected (Not Detect) C. krusei (PCR) Not Detected (Not Detect) C. parapsilosis (PCR) Not Detected (Not Detect) C. tropicalis (PCR) Not Detected (Not Detect) Coronavirus OC43 (PCR) Not Detected (Not Detect) Coronavirus HKU1 (PCR) DETECTED A (Not Detect) Coronavirus 229E (PCR) Not Detected (Not Detect) Coronavirus NL63 (PCR) Not Detected (Not Detect) Enterobacteriac sp PCR Not Detected (Not Detect) E. cloacae complex PCR Not Detected (Not Detect) Enterococcus sp PCR Not Detected (Not Detect) E. coli (PCR) Not Detected (Not Detect) H. influenzae (PCR) Not Detected (Not Detect) Human Metapneumovir PCR Not Detected (Not Detect) Influenza A (H1) PCR Not Detected (Not Detect) Influ A (H1N1/09) PCR Not Detected (Not Detect) Influenza A (H3) PCR Not Detected (Not Detect) Influenza A Untype (PCR) Not Detected (Not Detect) Influenza Type B (PCR) Not Detected (Not Detect) Klebsiella oxytoca PCR Not Detected (Not Detect) Klebsiella pneumoniae Not Detected (Not Detect) List. monocytogenes PCR Not Detected (Not Detect) M.pneumoniae DNA (PCR) Not Detected (Not Detect) N. meningitidis (PCR) Not Detected (Not Detect) Parainfluenza 1 (PCR) Not Detected (Not Detect) Parainfluenza 2 (PCR) Not Detected (Not Detect) Parainfluenza 3 (PCR) Not Detected (Not Detect) Parainfluenza 4 (PCR) Not Detected (Not Detect) Proteus species (PCR) Not Detected (Not Detect) RSV (PCR) DETECTED A (Not Detect) Entero/Rhino (PCR) Not Detected (Not Detect) Serratia marcescens PCR Not Detected (Not Detect) Staphylococcus sp PCR Not Detected (Not Detect) Staph aureus (PCR) Not Detected (Not Detect) mecA-Methicil Res Gene N/A (Not Detect) Streptococcus sp PCR Not Detected (Not Detect) Group A Strep DNA Not Detected (Not Detect) Group B Strep (PCR) Not Detected (Not Detect) Strep pneumoniae (PCR) Not Detected (Not Detect) P. aeruginosa (PCR) Not Detected (Not Detect) Yony/B-Vanco Res Genes N/A (Not Detect) KPC (blaKPC) Detect PCR N/A (Not Detect) Beta-(1,3)-D-Glucan 470 pg/mL B-(1,3)-D-Glucan Intrp POSITIVE A (Negative) - Impressions Impressions Chest CT 11/26/17 15:40 IMPRESSION: 1. New when compared to the previous examination are multiple focal areas of consolidation seen within the periphery of the lungs, some with focal cavitation. Given the rapid development, septic emboli are primarily considered (especially if there was evidence of port infection). 2. In addition, there are innumerable punctate centrilobular tree-in-bud ground-glass nodules. These have an inflammatory/infectious appearance. These can be secondary to infectious bronchiolitis (and in that case consider both typical and atypical etiologies). These could also be hematogenous is well. 3. These processes must be followed to resolution. D/ / Frank Ho MD / Frank Ho MD Interpreting Provider: Frank Ho MD Exam - Constitutional Vitals: Temp Pulse Resp BP Pulse Ox 97.3 F L 81 16 154/70 99 11/27/17 06:29 11/27/17 06:29 11/27/17 07:30 11/27/17 06:29 11/27/17 09:33 General appearance: cooperative, no acute distress, thin - Head Head exam: Present: atraumatic, normal inspection, normocephalic - Eye Eye exam: Present: EOMI, normal appearance, PERRL Pupils: Present: normal accommodation Additional comments: No subconjunctival hemorrhage noted. - ENT ENT exam: Present: mucous membranes moist - Neck Neck exam: Present: normal inspection - Respiratory Respiratory exam: Present: rhonchi (coarse, throughout). Absent: rales, respiratory distress, wheezes, tachypnea - Cardiovascular Cardiovascular exam: Present: RRR, +S1, +S2 - GI/Abdominal GI/Abdominal exam: Present: normal bowel sounds, soft, tenderness (Generalized) . Absent: distended Additional comments: Urostomy noted to the RLQ with no urine noted in the bag at this time. Colostomy noted to the LLQ with brown liquid stool and large amount of gas noted. - Extremities Exam Extremities exam: Present: normal inspection, pedal edema (1+ BLE), tenderness ( BLE). Absent: joint swelling Additional comments: AV fistula noted to the LUE +/+. - Neurological Exam Neurological exam: Present: alert, oriented X3, no focal deficits - Psychiatric Psychiatric exam: Present: normal affect, normal mood - Skin Skin exam: Present: dry, intact, normal color, warm - VTE Documentation of Mechanical Device: Intermittent pneumatic compression device Consult Discharge Plan - Plan Referrals: Na Johansen, UTILITY OPERATOR [facility] [Primary Care Provider] - 12/01/17 1:00 pm (Please follow up as schedule...) - Attending Attestation I examined this patient and my medical decision-making was reviewed with the Resident Physician. I agree with the documented findings, disposition and treatment plan as described except to the extent set forth below.
--- NOTE | 2017-11-27 18:38 | Electrocardiograph Report ---
[place] [id number] Test Date: 2017-11-27 Pat Name: Vannessa Parra Department: 112 Room: 2A Gender: F Manager Math: STEFANI : 1945 Requested By: Alexis Jeter Order Number: [id number] Reading MD: Dez Samaniego MD Measurements Intervals [place] Rate: 75 P: 61 MD: 138 QRS: 58 QRSD: 89 T: 68 QT: 379 QTc: 408 Interpretive Statements SINUS RHYTHM Poor R wave progression BASELINE ARTIFACT Electronically Signed On 11-27-2017 18:36:16 EST by Dez Samaniego MD
[2017-11-28] MEDS: Ondansetron 4 MG/2 ML VIAL IVP PRN ×2 (01:42→15:29)
[2017-11-28] MEDS: *HR* OxyCODONE Immed Rel 5 MG TABLET PO PRN ×4 (01:42→21:00)
[2017-11-28] MEDS: Albuterol 2.5 MG/3 ML NEBULIZER IH PRN (01:57)
[2017-11-28] MEDS: Ipratropium/Albuterol Neb 3 ML IH SCH ×6 (03:57→23:48)
[2017-11-28] MEDS: *HR* Promethazine 25 MG/ML VIAL IVP PRN ×3 (05:24→21:00)
[2017-11-28 05:48] LABS: Mean Corpuscular Volume 96.8 fL (83.0-100.0)
[2017-11-28 05:50] LABS: Hematocrit 21.3 % (35.3-44.9); Hemoglobin 6.5 g/dL (11.5-15.4); Immature Platelets 4.3 % (1.1-6.1); Mean Corpuscular HGB Conc 30.5 g/dL (31.6-35.5); Mean Corpuscular Hemoglobin 29.5 pg (28.0-33.3); Mean Platelet Volume 11.6 fL (9.4-12.4); Red Blood Count 2.2 M/mcL (3.82-4.97)
[2017-11-28] MEDS ORDERED: Piperacillin/Tazobactam 3.375 GM/200 ML BAG IVPB SCH (06:00)
[2017-11-28] MEDS ORDERED: 0.9 % Sodium Chloride 250 ML IVC PRN (06:16)
[2017-11-28 06:22] LABS: Calcium 6.7 mg/dL (8.6-10.3); Potassium 4.2 mEq/L (3.5-5.1)
--- NOTE | 2017-11-28 09:17 | Internal Med Progress Note ---
<Alexis Jeter - Last Filed: 11/28/17 13:32> Date of Encounter: 11/28/17 Time of Encounter: 09:16 - Assessment and plan (1) Sepsis Current Visit: Yes Status: Acute Assessment and plan: Patient's white count remains stable at 5.1 and she was afebrile and nontachycardic overnight Infectious disease has signed off, but had recommended continuing Fluconazole until December 02 to complete 2 week course for fungemia Will re-consult ID as CT demonstrated septic emboli with cavitation; Vanc and Zosyn were added but DC'ed by ID Repeat cultures collected, awaiting results Qualifiers: Qualified Code(s): A41.9 - Sepsis, unspecified organism (2) Fungemia Current Visit: Yes Status: Acute Assessment and plan: Patient will continue fluconazole 400 mg IV on dialysis days until December 02, per infectious disease recommendations She was evaluated by ophthalmology and ruled out endophthalmitis (3) Pneumonia Current Visit: Yes Status: Acute Assessment and plan: CTA revealed septic emboli in bilateral lobes Continue on IV fluconazole for fungemia as above ID did recommend consulting pulmonology, who will perform bronchoscopy today Qualifiers: Pneumonia type: due to unspecified organism Laterality: bilateral Lung location: lower lobe of lung Qualified Code(s): J18.9 - Pneumonia, unspecified organism (4) Anemia in CKD (chronic kidney disease) Current Visit: No Status: Chronic Assessment and plan: Her Hb slightly decreased to 6.8 from 7.5 this morning, but she still continues to have no signs of active bleed and remains hemodynamically stable Will transfuse 2 units of blood and recheck Hb in afternoon Qualifiers: Chronic kidney disease stage: on chronic dialysis Qualified Code(s): N18.6 - End stage renal disease; D63.1 - Anemia in chronic kidney disease; D63.1 - Anemia in chronic kidney disease; Z99.2 - Dependence on renal dialysis; Z99.2 - Dependence on renal dialysis; Z99.2 - Dependence on renal dialysis; Z99.2 - Dependence on renal dialysis (5) Elevated troponin Current Visit: Yes Status: Acute Assessment and plan: Elevated troponin likely secondary demand ischemia in ESRD patient Repeat trop at 0.11, only slightly higher than admission (6) ESRD (end stage renal disease) on dialysis Current Visit: No Status: Chronic Assessment and plan: Patient underwent dialysis today keeping with her Friday schedule Management per nephrology (7) COPD (chronic obstructive pulmonary disease) Current Visit: No Status: Chronic Assessment and plan: Not currently in exacerbation, but she is on steroid taper Continue supportive measures with breathing treatments and supplemental oxygen Qualifiers: COPD type: COPD with acute exacerbation Qualified Code(s): J44.1 - Chronic obstructive pulmonary disease with (acute) exacerbation (8) Chest pain Current Visit: Yes Status: Acute Assessment and plan: Likely musculoskeletal from PNA secondary to chronic cough as pain is reproducible EKG yesterday was unremarkable Qualifiers: Chest pain type: unspecified Qualified Code(s): R07.9 - Chest pain, unspecified (9) Hypothyroid Current Visit: No Status: Chronic Assessment and plan: Continue home levothyroxine Qualifiers: Hypothyroidism type: unspecified Qualified Code(s): E03.9 - Hypothyroidism , unspecified (10) Thrombocytopenia Current Visit: No Status: Chronic Assessment and plan: Platelet slightly decreased to 75 from 92 She has no signs of active bleeding (11) Atrial fibrillation Current Visit: No Status: Chronic Assessment and plan: Currently in normal sinus rhythm Continue rate control with Cardizem Not candidate for anticoagulation due to chronic thrombocytopenia Qualifiers: Atrial fibrillation type: paroxysmal Qualified Code(s): I48.0 - Paroxysmal atrial fibrillation - Subjective Interval history: Pt seen and examined. She is still having chest pain and shortness of breath with coughing. She continues to have nausea and vomiting. She states she did not sleep well last night. - Constitutional Vitals: Temp Pulse Resp BP Pulse Ox 97.6 F 78 17 139/72 99 11/28/17 07:47 11/28/17 07:47 11/28/17 07:48 11/28/17 07:47 11/28/17 07:48 General appearance: Present: cachectic, mild distress, underweight, answers questions appropriately - Head Head exam: Present: atraumatic, normocephalic - Eye Eye exam: Present: PERRL, conjuntiva pink, sclera anicteric - Neck Neck exam general surgery: Present: supple, trachea midline. Absent: lymphadenopathy - Respiratory Respiratory exam: Present: wheezes. Absent: accessory muscle use, rales, rhonchi - Cardiovascular Cardiovascular exam: Present: RRR, +S1, +S2. Absent: diastolic murmur, gallop, rubs, systolic murmur - GI/Abdominal GI/Abdominal exam: Present: normal bowel sounds, soft, no peritoneal signs. Absent: distended, tenderness - Extremities Exam Extremities exam: Present: pedal edema, warm, radial pulses palpable and symmetrical. Absent: calf tenderness, cyanotic - Neurological Exam Neurological exam: Present: alert, oriented X3, no focal deficits. Absent: pronater drift, facial droop, speech deficit - Skin Skin exam: Present: dry, intact Internal Medicine: Result - Labs CBC & Chem 7: 11/28/17 05:30 11/28/17 05:30 Labs: Short CBC 11/28/17 Range/Units 05:30 WBC 5.1 (4.3-11.1) K/mcL Hgb 6.5 L (11.5-15.4) g/dL Hct 21.3 L (35.3-44.9) % Plt Count 75 L (140-400) K/mcL BMP 11/28/17 05:30 Sodium 141 Potassium 4.2 Chloride 103 Carbon Dioxide 28 BUN 46 H Creatinine 5.51 H Glucose 86 Calcium 6.7 L Cardiac Enzymes 11/27/17 Range/Units 12:10 Troponin I 0.11 H* (< 0.04) ng/mL - ABG Interpretation ABG results: PT/INR, D-dimer PT 16.2 Seconds (9.4-12.1) H 11/14/17 10:30 - VTE Documentation of Mechanical Device: Intermittent pneumatic compression device Consult Discharge Plan - Plan Referrals: Na Johansen, LEAD PASTOR [Primary Care Provider] - 12/01/17 1:00 pm (Please follow up as schedule...) <Lion Topete - Last Filed: 11/28/17 14:10> Date of Encounter: 11/28/17 - Assessment and plan (1) Sepsis Current Visit: Yes Status: Acute Qualifiers: Sepsis type: sepsis due to unspecified organism Qualified Code(s): A41.9 - Sepsis, unspecified organism (2) Fungemia Current Visit: Yes Status: Acute (3) Cavitary lesion of lung Current Visit: Yes Status: Acute (4) Pneumonia Current Visit: Yes Status: Suspected Qualifiers: Pneumonia type: due to unspecified organism Laterality: right Lung location: lower lobe of lung Qualified Code(s): J18.1 - Lobar pneumonia, unspecified organism (5) Bicytopenia Current Visit: No Status: Chronic (6) Chest pain Current Visit: Yes Status: Acute Qualifiers: Chest pain type: unspecified Qualified Code(s): R07.9 - Chest pain, unspecified (7) Elevated troponin Current Visit: Yes Status: Acute (8) Acute respiratory failure with hypoxia Current Visit: No Status: Resolved (9) Atrial fibrillation with rapid ventricular response Current Visit: No Status: Resolved (10) Nausea and vomiting Current Visit: No Status: Chronic Qualifiers: Vomiting type: unspecified Vomiting Intractability: non-intractable Qualified Code(s): R11.2 - Nausea with vomiting, unspecified (11) Abdominal pain Current Visit: No Status: Chronic Qualifiers: Abdominal location: lower abdomen, unspecified Qualified Code(s): R10.30 - Lower abdominal pain, unspecified (12) Anemia in chronic kidney disease Current Visit: No Status: Chronic Qualifiers: Chronic kidney disease stage: on chronic dialysis Qualified Code(s): N18.6 - End stage renal disease; D63.1 - Anemia in chronic kidney disease; Z99.2 - Dependence on renal dialysis (13) COPD (chronic obstructive pulmonary disease) Current Visit: No Status: Chronic Qualifiers: COPD type: emphysema Emphysema type: panlobular Qualified Code(s): J43.1 - Panlobular emphysema (14) ESRD (end stage renal disease) on dialysis Current Visit: No Status: Chronic (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 (16) Tobacco abuse Current Visit: No Status: Chronic (17) Gross hematuria Current Visit: No Status: Inactive - Constitutional Vitals: Temp Pulse Resp BP Pulse Ox 98.4 F 81 18 171/66 100 11/28/17 12:27 11/28/17 12:55 11/28/17 12:55 11/28/17 12:55 11/28/17 12:55 Internal Medicine: Result - Labs CBC & Chem 7: 11/28/17 05:30 11/28/17 05:30 Labs: Short CBC 11/28/17 Range/Units 05:30 WBC 5.1 (4.3-11.1) K/mcL Hgb 6.5 L (11.5-15.4) g/dL Hct 21.3 L (35.3-44.9) % Plt Count 75 L (140-400) K/mcL BMP 11/28/17 05:30 Sodium 141 Potassium 4.2 Chloride 103 Carbon Dioxide 28 BUN 46 H Creatinine 5.51 H Glucose 86 Calcium 6.7 L - ABG Interpretation ABG results: PT/INR, D-dimer PT 16.2 Seconds (9.4-12.1) H 11/14/17 10:30 - Attending Attestation I personally interviewed and examined this patient. I agree with the findings, assessment, and plan of Dr. Jeter, internal medicine resident. Infectious disease input is appreciated. Continue Diflucan for fungemia. Pulmonary medicine improved is also appreciated and no plans for bronchoscopy. A shunt white count remains normal and she remains afebrile. Zosyn was stopped as she was not felt to have an acute bacterial pneumonia. She continues with dialysis. All else as outlined. We will await further data.
[2017-11-28] MEDS: Calcium Acetate 667 MG CAPSULE PO SCH ×3 (09:26→17:04)
[2017-11-28] MEDS ORDERED: Lidocaine Viscous Oral Soln 15 ML SOLUTION MM ONE (10:49)
[2017-11-28] MEDS ORDERED: *HR* Midazolam HCl 2 MG/2 ML VIAL IVP ONE (10:49)
[2017-11-28] MEDS ORDERED: *HR* FentaNYL (PF) 100 MCG/2 ML VIAL IVP ONE (10:49)
--- NOTE | 2017-11-28 10:49 | Pre-Sedation Evaluation ---
Pre-sedation evaluation - Pre-sedation checklist Date of procedure: 11/28/17 Procedure: Bronchoscopy Recent Vitals: Last Vital Signs Temp 97.4 F L 11/28/17 10:36 Pulse 76 11/28/17 10:36 Resp 20 11/28/17 10:36 BP 97/44 11/28/17 10:36 Pulse Ox 99 11/28/17 09:45 H&P (including ROS) documented in medical record: Yes Previous reaction to sedatives/anesthetics: No Dietary Status: NPO after Midnight Dentition: dentures removed ASA Classification *see protocol: CLASS III-Severe systemic disease Plan of Care: Pt appropriate candidate for procedure/moderate/conscious sedation , Risks/benefits of procedure/sedation discussed w/ patient/family
--- NOTE | 2017-11-28 11:03 | Infectious Disease Progress No ---
Date of Encounter: 11/28/17 Time of Encounter: 11:01 - Assessment and Plan (1) Sepsis Current Visit: Yes Status: Acute Severe sepsis on admission. The patient had two SIRS criteria with hypotension responsive to IV fluids. Likely secondary to fungemia and PNA. Improved. The patient has been afebrile. Hypotension has resolved. Tachycardia has resolved. Peripheral blood cultures drawn 11/14/17 were positive 2/2 for Kelsey lusitaniae. Additional peripheral fungal blood culture drawn 11/16/17 is positive as well. Peripheral blood cultures drawn 11/17/16 were negative. A-port blood cultures drawn 11/17/17 were positive. The patient has had no additional SIRS criteria to indicate a new source of infection. Repeat blood cultures x 2 sets drawn 11/27/17 are pending. Qualifiers: Sepsis type: sepsis due to unspecified organism Qualified Code(s): A41.9 - Sepsis, unspecified organism (2) Fungemia Current Visit: Yes Status: Acute Causative organism Kelsey lusitiniae. Source unclear, but the patient was recently on TPN given through her a-port. Her a-port was removed 11/18/17. Peripheral blood cultures drawn 11/14/17 were positive 2/2. Additional peripheral fungal blood culture drawn 11/16/17 is positive as well. No blood cultures were drawn from the patient's a-port before antifungals were started. Repeat blood cultures x 2 sets from the a-port are positive and x2 sets from a peripheral stick drawn 11/17/17 are NGTD. Continue fluconazole, 400mg IV daily on HD days only. Opthalmology evaluation noted and appreciated. No endopthalmitis. LFTs remain normal. Okay to consult VAT for EPIV placement prior to discharge unless fluconazole can be given at the HD unit. Duration of treatment depends on the clinical picture, but likely 4 weeks due to the presence of septic emboli. Monitor weekly CBC and LFTs while on antifungals. Weekly EPIV care per protocol if needed. (3) Cavitary lesion of lung Current Visit: Yes Status: Acute CTA of the chest shows new when compared to previous examination (Oct 2017) multiple focal areas of consolidation within the periphery of the lungs, some with focal cavitation. Per radiology, given the rapid development, septic emboli are primarily considered. In addition, there are innumerable punctate centrilobular tree-in-bud ground-glass nodules that have an inflammatory/ infectious appearance, likely related related to infectious bronchiolitis, but could also be hematogenous as well. CT scan reviewed with Pulmonology team. Pulmonology recommendations noted and appreciated. Planning for bronchoscopy tomorrow. Recommend cultures, AFB, and fungal studies. Continue antifungals as above. Fungal serologies pending. Low index of suspicion for TB. (4) Pneumonia Current Visit: Yes Status: Suspected Location: Bilaterally. Causative organism unclear, but possible viral. RIP positive for HSV and Coronavirus. Previous sputum cultures positive for S. maltophilia, PSEA, and E. coli. CXR showed patchy airspace opacities bilaterally, more pronounced in the right lung base.. Previously completed a 7 day course of Levaquin. Review of the medical record shows that the patient has had multiple recurrences of PNA over the past six months. Pulmonology re-consulted and planning on taking the patient for bronch tomorrow. Antibiotic recommendations as above. Qualifiers: Pneumonia type: due to unspecified organism Laterality: right Lung location: lower lobe of lung Qualified Code(s): J18.1 - Lobar pneumonia, unspecified organism (5) Bicytopenia Current Visit: No Status: Chronic Continues to have anemia and thrombocytopenia. Continue trend. Further workup and management per the primary team. (6) Chest pain Current Visit: Yes Status: Acute Appears musculoskeletal in origin. Likely secondary to PNA and chostochondritis. Troponin elevated likely secondary to demand ischemia from ESRD, but may consider formal cardiology consult. Further workup and management per the primary team. Qualifiers: Chest pain type: unspecified Qualified Code(s): R07.9 - Chest pain, unspecified (7) Elevated troponin Current Visit: Yes Status: Acute Likely chronic secondary to CKD. EKG shows no acute changes. Further workup and management per the primary team. (8) Nausea and vomiting Current Visit: No Status: Chronic Likely secondary to short gut syndrome. Management per the primary team. Qualifiers: Vomiting type: unspecified Vomiting Intractability: non-intractable Qualified Code(s): R11.2 - Nausea with vomiting, unspecified (9) Abdominal pain Current Visit: No Status: Chronic Chronic. Further workup and management per the primary team. Qualifiers: Abdominal location: lower abdomen, unspecified Qualified Code(s): R10.30 - Lower abdominal pain, unspecified (10) Anemia in chronic kidney disease Current Visit: No Status: Chronic Likely multifactorial: poor nutrition + anemia of CKD. Management per the primary and nephrology teams. Qualifiers: Chronic kidney disease stage: on chronic dialysis Qualified Code(s): N18.6 - End stage renal disease; D63.1 - Anemia in chronic kidney disease; Z99.2 - Dependence on renal dialysis (11) COPD (chronic obstructive pulmonary disease) Current Visit: No Status: Chronic Management per the primary and pulmonology teams. Qualifiers: COPD type: emphysema Emphysema type: panlobular Qualified Code(s): J43.1 - Panlobular emphysema (12) ESRD (end stage renal disease) on dialysis Current Visit: No Status: Chronic Nephrology consulted and following. 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 Recently started on TPN, but the patient could not tolerate. Likely contributing to the patient's poor nutritional status. Management per the primary team. (14) Tobacco abuse Current Visit: No Status: Chronic - Subjective Interval history: Patient seen and examined in the HD unit. No acute events noted overnight. Plans for bronchoscopy after dialysis today. Reports pain in her entire chest, worse with deep cough or inspiration. She continues to report shortness of breath with moist nonproductive cough, but does not appear to be in any acute distress. She reports chronic nausea and vomiting with by mouth intake. She is NPO this morning. She reports liquid stool from her colostomy. She denies blood from her urostomy or colostomy. She denies oral thrush or new skin lesions. She denies fevers, chills, or rigors. Infect Dis PN-Objective Data - Labs CBC & Chem 7: 11/28/17 05:30 11/28/17 05:30 Labs: Laboratory Results - last 24 hr 11/27/17 11/28/17 11/28/17 12:10 05:30 05:30 WBC 5.1 RBC 2.20 L Hgb 6.5 L Hct 21.3 L MCV 96.8 MCH 29.5 MCHC 30.5 L RDW 17.0 H Plt Count 75 L MPV 11.6 Immature Plt Fraction 4.3 Sodium 141 Potassium 4.2 Chloride 103 Carbon Dioxide 28 BUN 46 H Creatinine 5.51 H Est GFR ( Amer) 9 L Est GFR (Non-Af Amer) 8 L BUN/Creatinine Ratio 8 Glucose 86 Calculated Osmolality 303 H Calcium 6.7 L Troponin I 0.11 H* Random Vancomycin Blood Type Antibody Screen Crossmatch 11/28/17 11/28/17 05:30 07:30 WBC RBC Hgb Hct MCV MCH MCHC RDW Plt Count MPV Immature Plt Fraction Sodium Potassium Chloride Carbon Dioxide BUN Creatinine Est GFR ( Amer) Est GFR (Non-Af Amer) BUN/Creatinine Ratio Glucose Calculated Osmolality Calcium Troponin I Random Vancomycin 13.8 Blood Type A POSITIVE Antibody Screen NEGATIVE Crossmatch See Detail Cultures: Cultures 11/16/17 05:13 Blood Fungal Culture - Final Peripheral Venipuncture No growth. 11/19/17 07:30 Blood Culture - Final Port System No growth. 11/19/17 07:35 Blood Culture - Final Port System No growth. 11/17/17 17:31 Blood Culture - Final Peripheral Venipuncture No growth. 11/17/17 17:31 Blood Culture - Final Peripheral Venipuncture No growth. 11/19/17 10:10 Catheter Tip Culture - Final Intravenous or Arterial Cath No growth. 11/17/17 18:09 Blood Culture - Final Port System Kelsey lusitaniae 11/16/17 05:05 Blood Fungal Culture - Final Peripheral Venipuncture Kelsey lusitaniae Serology 11/18/17 11/17/17 11/17/17 Range/Units 08:41 18:09 17:31 A. baumannii (PCR) Not Detected (Not Detect) Chlamy pneumoniae PCR Not Detected (Not Detect) Adenovirus (PCR) Not Detected (Not Detect) B. pertussis DNA (PCR) Not Detected (Not Detect) B.parapertussis DNA PCR Not Detected (Not Detect) Kelsey albicans (PCR) Not Detected (Not Detect) C. glabrata (PCR) Not Detected (Not Detect) C. krusei (PCR) Not Detected (Not Detect) C. parapsilosis (PCR) Not Detected (Not Detect) C. tropicalis (PCR) Not Detected (Not Detect) Coronavirus OC43 (PCR) Not Detected (Not Detect) Coronavirus HKU1 (PCR) DETECTED A (Not Detect) Coronavirus 229E (PCR) Not Detected (Not Detect) Coronavirus NL63 (PCR) Not Detected (Not Detect) Enterobacteriac sp PCR Not Detected (Not Detect) E. cloacae complex PCR Not Detected (Not Detect) Enterococcus sp PCR Not Detected (Not Detect) E. coli (PCR) Not Detected (Not Detect) H. influenzae (PCR) Not Detected (Not Detect) Human Metapneumovir PCR Not Detected (Not Detect) Influenza A (H1) PCR Not Detected (Not Detect) Influ A (H1N1/09) PCR Not Detected (Not Detect) Influenza A (H3) PCR Not Detected (Not Detect) Influenza A Untype (PCR) Not Detected (Not Detect) Influenza Type B (PCR) Not Detected (Not Detect) Klebsiella oxytoca PCR Not Detected (Not Detect) Klebsiella pneumoniae Not Detected (Not Detect) List. monocytogenes PCR Not Detected (Not Detect) M.pneumoniae DNA (PCR) Not Detected (Not Detect) N. meningitidis (PCR) Not Detected (Not Detect) Parainfluenza 1 (PCR) Not Detected (Not Detect) Parainfluenza 2 (PCR) Not Detected (Not Detect) Parainfluenza 3 (PCR) Not Detected (Not Detect) Parainfluenza 4 (PCR) Not Detected (Not Detect) Proteus species (PCR) Not Detected (Not Detect) RSV (PCR) DETECTED A (Not Detect) Entero/Rhino (PCR) Not Detected (Not Detect) Serratia marcescens PCR Not Detected (Not Detect) Staphylococcus sp PCR Not Detected (Not Detect) Staph aureus (PCR) Not Detected (Not Detect) mecA-Methicil Res Gene N/A (Not Detect) Streptococcus sp PCR Not Detected (Not Detect) Group A Strep DNA Not Detected (Not Detect) Group B Strep (PCR) Not Detected (Not Detect) Strep pneumoniae (PCR) Not Detected (Not Detect) P. aeruginosa (PCR) Not Detected (Not Detect) Yony/B-Vanco Res Genes N/A (Not Detect) KPC (blaKPC) Detect PCR N/A (Not Detect) Beta-(1,3)-D-Glucan 470 pg/mL B-(1,3)-D-Glucan Intrp POSITIVE A (Negative) Exam - Constitutional Vitals: Temp Pulse Resp BP Pulse Ox 97.4 F L 78 18 109/48 99 11/28/17 10:55 11/28/17 10:55 11/28/17 10:55 11/28/17 10:55 11/28/17 09:45 General appearance: cooperative, no acute distress, thin - Head Head exam: Present: atraumatic, normal inspection, normocephalic - Eye Eye exam: Present: EOMI, normal appearance, PERRL Pupils: Present: normal accommodation - ENT ENT exam: Present: mucous membranes dry - Neck Neck exam: Present: normal inspection - Respiratory Respiratory exam: Present: rhonchi (Throughout). Absent: rales, respiratory distress, wheezes - Cardiovascular Cardiovascular exam: Present: RRR, +S1, +S2 - GI/Abdominal GI/Abdominal exam: Present: normal bowel sounds, soft, tenderness (generalized) . Absent: distended Additional comments: Urostomy noted to the RLQ with clear yellow urine. Colostomy noted to the LLQ with small amount of light brown liquid stool noted. - Extremities Exam Extremities exam: Present: normal inspection. Absent: joint swelling, pedal edema, tenderness Additional comments: Fistula noted to the LUE +/+. - Neurological Exam Neurological exam: Present: alert, oriented X3, no focal deficits - Psychiatric Psychiatric exam: Present: normal affect, normal mood - Skin Skin exam: Present: dry, intact, normal color, warm - VTE Documentation of Mechanical Device: Intermittent pneumatic compression device Consult Discharge Plan - Plan Referrals: Na Johansen CNP [Primary Care Provider] - 12/01/17 1:00 pm (Please follow up as schedule...) - Attending Attestation I examined this patient and my medical decision-making was reviewed with the Resident Physician. I agree with the documented findings, disposition and treatment plan as described except to the extent set forth below.
[2017-11-28] MEDS ORDERED: *HR* FentaNYL (PF) 100 MCG/2 ML VIAL ONE (12:03)
[2017-11-28] MEDS ORDERED: *HR* Midazolam HCl 2 MG/2 ML VIAL ONE (12:03)
--- NOTE | 2017-11-28 13:09 | Nephrology Progress Note ---
Date of Encounter: 11/28/17 Time of Encounter: 13:00 - Assessment and Plan (1) Anemia Status: Chronic Hgb noted at 6.5, needs transfusion pRBCs Continue aranesp weekly Qualifiers: Anemia type: unspecified type Qualified Code(s): D64.9 - Anemia, unspecified (2) ESRD (end stage renal disease) on dialysis Status: Chronic Continue HD with UF as tolerated Continue renal diet (3) Pneumonia Status: Acute Pulm consulted and managing pulm issues Qualifiers: Pneumonia type: due to unspecified organism Laterality: bilateral Lung location: lower lobe of lung Qualified Code(s): J18.9 - Pneumonia, unspecified organism Subjective Principal diagnosis: hypoxic respiratiory failure 2/2 COPD exacerbation 2/2 PNA Interval history: Interim events noted, pt seen and examined. Objective - Vital Signs Vital signs: Vital Signs Temp Pulse Resp BP Pulse Ox 11/28/17 12:55 81 18 171/66 100 11/28/17 12:50 115 18 167/56 100 11/28/17 12:45 79 18 174/62 99 11/28/17 12:40 77 18 140/53 99 11/28/17 12:27 98.4 F 81 16 140/53 91 11/28/17 12:17 97.4 F L 18 101/66 11/28/17 11:45 121/89 11/28/17 11:42 78 14 158/65 98 11/28/17 11:35 97.4 F L 72 18 125/61 11/28/17 11:31 120/77 11/28/17 11:15 114/61 11/28/17 11:10 97.5 F L 78 18 101/47 11/28/17 11:00 98/42 11/28/17 10:55 97.4 F L 78 18 109/48 11/28/17 10:50 97.4 F L 74 18 121/77 11/28/17 10:45 117/48 11/28/17 10:36 97.4 F L 76 20 97/44 11/28/17 10:30 120/47 11/28/17 10:21 97.9 F 72 18 114/98 11/28/17 10:15 149/88 11/28/17 10:00 104/42 11/28/17 09:45 97/47 99 11/28/17 09:30 120/45 11/28/17 09:15 116/38 11/28/17 09:00 118/41 11/28/17 08:45 97.8 F 18 122/44 11/28/17 07:48 17 99 11/28/17 07:47 97.6 F 78 17 139/72 100 11/28/17 03:57 17 96 11/28/17 03:21 98.3 F 80 18 135/36 98 11/28/17 01:57 21 99 11/28/17 00:33 98.9 F 88 18 140/70 98 11/27/17 23:50 18 94 11/27/17 20:41 16 93 11/27/17 19:19 98.2 F 92 16 156/72 99 11/27/17 16:31 98.2 F 82 15 147/63 90 11/27/17 15:12 18 95 Intake and Output 11/27/17 11/28/17 11/28/17 23:59 07:59 15:59 Intake Total 0 / 0 2000 / 2000 Output Total 4300 / 4300 Balance 0 / 0 -2300 / -2300 Intake: Oral 0 / 0 0 / 0 Blood Product 1400 / 1400 Rbcs Leuko Poor As-1 Unit 700 / 700 [id number] Rbcs Leuko Poor As-1 Unit 700 / 700 [id number] Intake, Rinseback and Flushes 600 / 600 Output: Urine 0 / 0 Total Dialysis (HD) Output 4300 / 4300 Other: Weight 58.7 kg Hemodialysis Net Fluid Removed 3000 (mL) Patient Weight 11/28/17 23:59 Weight 58.7 kg - General Appearance General appearance: Present: chronically ill, frail EENT: Present: ATNC, mucous membranes moist Neck: Present: no JVD, supple Respiratory: Present: course breath sounds Cardiology: Present: no edema, normal S1, normal S2 Dialysis Vascular Access: Arteriovenous Fistula thrill: Yes bruit: Yes Gastrointestinal: Present: no tenderness, no guarding Integumentary: Present: warm and dry Neurologic: Present: no focal deficit Musculoskeletal: Present: no deformities Psychiatric: Present: mood/affect appropriate, cooperative - Lab 12/15/17 04:05 12/15/17 04:05 Most recent lab results Calcium 6.7 mg/dL (8.6-10.3) L 11/28/17 05:30 Phosphorus 5.0 mg/dL (2.7-4.5) H 11/25/17 05:00 Magnesium 1.5 mg/dL (1.6-2.6) L 11/25/17 05:00 - VTE Documentation of Mechanical Device: Intermittent pneumatic compression device Consult Discharge Plan - Plan Additional Instructions: F/up with PCP in 1-2 weeks F/up for HD 3 times/week- MWF F/up with ID in 2 weeks Referrals: Na Johansen, TYLER [Primary Care Provider] - (Call at discharge due to lengthy stay Patient will go to [facility]) Prescriptions: Gabapentin [Neurontin] 100 mg PO TID #30 capsule LORazepam [Ativan] 0.5 mg PO BID PRN 10 Days #10 tablet PRN Reason: Anxiety OxyCODONE Immed Rel [Roxicodone 5 MG] 2.5 mg PO Q5H PRN 5 Days #10 tablet PRN Reason: Pain Sulfamethoxazole/Trimeth [Bactrim 800MG/160MG/10ML] 10 ml IV BID #7 vial Sulfamethoxazole/Trimeth [Bactrim 800MG/160MG/10ML] 10 ml IV DAILY #5 vial
[2017-11-28] MEDS: Fluconazole 400 MG/200 ML 400 MG/200 ML BAG IVPB SCH (17:05)
[2017-11-28 17:22] LABS: Source of Body Fluid RML BAL
[2017-11-28 17:31] LABS: Hematocrit 28.8 % (35.3-44.9)
[2017-11-28 17:33] LABS: Hemoglobin 9.2 g/dL (11.5-15.4)
[2017-11-28] MEDS ORDERED: 0.9 % Sodium Chloride 1,000 ML ONE (17:50)
[2017-11-28 18:06] LABS: Appearance of Body Fluid Cloudy (Clear); Volume of Body Fluid 25 mL
[2017-11-28] MEDS: predniSONE 20 MG TABLET PO SCH (18:23)
[2017-11-29] MEDS: Ondansetron 4 MG/2 ML VIAL IVP PRN ×3 (01:20→20:25)
[2017-11-29] MEDS: *HR* OxyCODONE Immed Rel 5 MG TABLET PO PRN ×5 (01:20→20:25)
[2017-11-29] MEDS: Ipratropium/Albuterol Neb 3 ML IH SCH ×6 (03:37→23:56)
[2017-11-29] MEDS: *HR* Promethazine 25 MG/ML VIAL IVP PRN ×2 (05:31→17:27)
[2017-11-29 05:59] LABS: Hemoglobin 8.7 g/dL (11.5-15.4); Red Cell Distribution Width 17.2 % (11.5-14.5)
[2017-11-29 06:01] LABS: Hematocrit 27.5 % (35.3-44.9); Mean Corpuscular HGB Conc 31.6 g/dL (31.6-35.5); Mean Corpuscular Hemoglobin 29.7 pg (28.0-33.3); Mean Corpuscular Volume 93.9 fL (83.0-100.0); Mean Platelet Volume 11.5 fL (9.4-12.4); Red Blood Count 2.93 M/mcL (3.82-4.97)
[2017-11-29 06:17] LABS: Potassium 4.4 mEq/L (3.5-5.1)
--- NOTE | 2017-11-29 06:55 | Pulmonology Progress Note ---
Date of Encounter: 11/29/17 Time of Encounter: 06:55 Assessment and Plan (1) Acute respiratory failure with hypoxia Current Visit: No Status: Resolved Continue supplemental oxygen to keep saturation around 89-92% Out of bed to chair and ambulation and incentive spirometry (2) Pneumonia Current Visit: Yes Status: Suspected She has a history of fungemia with septic emboli which are consistent with this diagnosis along with bilateral micronodular opacities which appear hematogenous to my evaluation are likely also consistent with this diagnosis again the CT scan was obtained after starting treatment so there is no clear idea of the tempo of this infection with gut feeling is that it is being treated as the blood has been cleared and I think the lung opacities will resolve on their own Bronchoscopy examination seems to support this as there is not any thick purulent secretions additionally the prelim cell count of the BAL was lymphocytic predominant which would not support bacterial/fungal infection we are waiting on the final microbiological data as well as the pathology reports for silver stain etc. Infectious disease services following this case and they are dosing the fluconazole Rest of antimicrobials I think are only muddying the picture at this point I am not sure that they are particularly useful but I will defer to the primary service and infectious disease if they want to continue them or not Qualifiers: Pneumonia type: due to unspecified organism Laterality: right Lung location: lower lobe of lung Qualified Code(s): J18.1 - Lobar pneumonia, unspecified organism (3) COPD (chronic obstructive pulmonary disease) Current Visit: No Status: Chronic Given recurrent infections and stopped her inhaled corticosteroid she should continue duo nebs of also started N-acetylcysteine today She would be a good candidate for a long-acting beta agonist however I do not think we have one in the nebulized form on formulary as inpatient this something that can be started as outpatient however and in general I think that she would benefit from nebulized treatments as opposed to metered-dose inhaler Qualifiers: COPD type: emphysema Emphysema type: panlobular Qualified Code(s): J43.1 - Panlobular emphysema (4) Frail elderly Current Visit: No Status: Acute Overall prognosis is not good she has chronic respiratory failure and advanced COPD complicated by recurrent infections she has chronic pain. I think all of this warrants evaluation by the palliative care team to address not only goals of care but to address her chronic pain which is still not optimally controlled Subjective Principal diagnosis: hypoxic respiratiory failure 2/2 COPD exacerbation 2/2 PNA Interval history: Vannessa looks better today than I have seen her in the past few days although she is still complaining of chest pain especially with breathing, no untoward effects of bronchoscopy airway examination during the procedure was notable for remarkably clear airways BAL was performed in the right middle lobe the preliminary results are starting to come back. Objective PUL Vital signs: Last Vital Signs Temp 98.7 F 11/29/17 04:10 Pulse 82 11/29/17 04:10 Resp 16 11/29/17 04:10 BP 151/61 11/29/17 04:10 Pulse Ox 93 11/29/17 04:10 General appearance: no acute distress, other (Chronically ill frail appearing) Auscultation: bilateral: wheezes, rhonchi Cardiovascular: regular rate and rhythm Extremities: no cyanosis, no edema normal mental status, non-focal exam Results - Laboratory Findings CBC and BMP: 11/29/17 05:46 11/29/17 05:46 PT/INR, D-dimer PT 16.2 Seconds (9.4-12.1) H 11/14/17 10:30 Abnormal lab findings: Abnormal lab results RBC 2.20 M/mcL (3.82-4.97) L 11/28/17 05:30 Hgb 9.2 g/dL (11.5-15.4) L D 11/28/17 17:15 Hct 28.8 % (35.3-44.9) L 11/28/17 17:15 MCHC 30.5 g/dL (31.6-35.5) L 11/28/17 05:30 RDW 17.0 % (11.5-14.5) H 11/28/17 05:30 Plt Count 75 K/mcL (140-400) L 11/28/17 05:30 Neutrophils # 11.5 K/mcL (1.6-8.9) H 11/25/17 05:00 PT 16.2 Seconds (9.4-12.1) H 11/14/17 10:30 VBG pH 7.31 pH Units (7.32-7.42) L 11/17/17 06:13 VBG pO2 74 mmHg (25-50) H 11/17/17 06:13 Carbon Dioxide 31 mEq/L (23-29) H 11/29/17 05:46 BUN 30 mg/dL (8-23) H 11/29/17 05:46 Creatinine 4.30 mg/dL (0.60-1.20) H 11/29/17 05:46 Est GFR ( Amer) 12 (> 60) L 11/29/17 05:46 Est GFR (Non-Af Amer) 10 (> 60) L 11/29/17 05:46 Calcium 7.0 mg/dL (8.6-10.3) L 11/29/17 05:46 Venous Ioniz Calcium 0.99 mmol/L (1.15-1.35) L 11/17/17 06:13 Phosphorus 5.0 mg/dL (2.7-4.5) H 11/25/17 05:00 Magnesium 1.5 mg/dL (1.6-2.6) L 11/25/17 05:00 Troponin I 0.11 ng/mL (< 0.04) H* 11/27/17 12:10 Serum Total Protein 5.1 g/dL (6.4-8.9) L 11/24/17 05:25 Albumin 3.2 g/dL (3.5-5.7) L 11/24/17 05:25 Globulin 1.9 g/dL (2.4-3.5) L 11/24/17 05:25 Fluid Appearance Cloudy (Clear) A 11/28/17 13:00 Coronavirus HKU1 (PCR) DETECTED (Not Detect) A 11/18/17 08:41 RSV (PCR) DETECTED (Not Detect) A 11/18/17 08:41 B-(1,3)-D-Glucan Intrp POSITIVE (Negative) A 11/17/17 17:31 - Clinical Findings Intake & Output: Intake & Output 11/28/17 11/28/17 11/29/17 15:59 23:59 07:59 Intake Total 1999 0 / 0 Output Total 4300 / 4300 Balance -2300 / -2300 0 / 0 Weight 58.3 kg - VTE Documentation of Mechanical Device: Intermittent pneumatic compression device Consult Discharge Plan - Plan Referrals: Na Johansen, TYLER [Primary Care Provider] - 12/01/17 1:00 pm (Please follow up as schedule...)
[2017-11-29] MEDS: Calcium Acetate 667 MG CAPSULE PO SCH ×3 (10:08→17:27)
[2017-11-29] MEDS: predniSONE 20 MG TABLET PO SCH (10:09)
--- NOTE | 2017-11-29 10:17 | Internal Med Progress Note ---
<Alexis Jeter - Last Filed: 11/29/17 11:30> Date of Encounter: 11/29/17 Time of Encounter: 10:16 - Assessment and plan (1) Sepsis Current Visit: Yes Status: Acute Assessment and plan: Patient's white count remains stable at 5.6 and she was afebrile and nontachycardic overnight Infectious disease recommended continuing Fluconazole for 4 weeks Repeat cultures negative so far Awaiting BAL results from bronchoscopy on 11/28 Qualifiers: Qualified Code(s): A41.9 - Sepsis, unspecified organism (2) Fungemia Current Visit: Yes Status: Acute Assessment and plan: Patient will continue fluconazole 400 mg IV on dialysis days per infectious disease recommendations She was evaluated by ophthalmology and ruled out endophthalmitis (3) Pneumonia Current Visit: Yes Status: Acute Assessment and plan: CTA revealed septic emboli in bilateral lobes Continue on IV fluconazole for fungemia as above Awaiting BAL results Qualifiers: Pneumonia type: due to unspecified organism Laterality: bilateral Lung location: lower lobe of lung Qualified Code(s): J18.9 - Pneumonia, unspecified organism (4) Anemia in CKD (chronic kidney disease) Current Visit: No Status: Chronic Assessment and plan: Her Hb slightly decreased to 8.7 from 9.2 this morning, but she still continues to have no signs of active bleed and remains hemodynamically stable She did have 2 units transfused yesterday after dialysis Qualifiers: Chronic kidney disease stage: on chronic dialysis Qualified Code(s): N18.6 - End stage renal disease; D63.1 - Anemia in chronic kidney disease; D63.1 - Anemia in chronic kidney disease; Z99.2 - Dependence on renal dialysis; Z99.2 - Dependence on renal dialysis; Z99.2 - Dependence on renal dialysis; Z99.2 - Dependence on renal dialysis (5) Elevated troponin Current Visit: Yes Status: Acute Assessment and plan: Elevated troponin likely secondary demand ischemia in ESRD patient Repeat trop at 0.11, only slightly higher than admission (6) ESRD (end stage renal disease) on dialysis Current Visit: No Status: Chronic Assessment and plan: Patient underwent dialysis Friday keeping with her Friday schedule Management per nephrology (7) COPD (chronic obstructive pulmonary disease) Current Visit: No Status: Chronic Assessment and plan: Not currently in exacerbation, but she is on steroid taper Continue supportive measures with breathing treatments and supplemental oxygen Qualifiers: COPD type: COPD with acute exacerbation Qualified Code(s): J44.1 - Chronic obstructive pulmonary disease with (acute) exacerbation (8) Chest pain Current Visit: Yes Status: Acute Assessment and plan: Likely musculoskeletal from PNA secondary to chronic cough as pain is reproducible EKG 11/27 was unremarkable Qualifiers: Chest pain type: unspecified Qualified Code(s): R07.9 - Chest pain, unspecified (9) Hypothyroid Current Visit: No Status: Chronic Assessment and plan: Continue home levothyroxine Qualifiers: Hypothyroidism type: unspecified Qualified Code(s): E03.9 - Hypothyroidism , unspecified (10) Thrombocytopenia Current Visit: No Status: Chronic Assessment and plan: Platelet stable at 67 from 75 She has no signs of active bleeding (11) Atrial fibrillation Current Visit: No Status: Chronic Assessment and plan: Currently in normal sinus rhythm Continue rate control with Cardizem Not candidate for anticoagulation due to chronic thrombocytopenia Qualifiers: Atrial fibrillation type: paroxysmal Qualified Code(s): I48.0 - Paroxysmal atrial fibrillation - Subjective Interval history: Pt seen and examined. She still has persistent shortness of breath, cough and reproducible chest pain. She states she has chronic diarrhea as well and is not feeling any better. She did have her bronchoscopy yesterday and tolerated the procedure well. - Constitutional Vitals: Temp Pulse Resp BP Pulse Ox 97.6 F 91 18 158/68 98 11/29/17 08:12 11/29/17 08:12 11/29/17 08:12 11/29/17 08:12 11/29/17 08:12 General appearance: Present: cachectic, mild distress, underweight, answers questions appropriately - Head Head exam: Present: atraumatic, normocephalic - Eye Eye exam: Present: PERRL, conjuntiva pink, sclera anicteric - Neck Neck exam general surgery: Present: supple, trachea midline. Absent: lymphadenopathy - Respiratory Respiratory exam: Present: wheezes. Absent: accessory muscle use, rales, rhonchi - Cardiovascular Cardiovascular exam: Present: RRR, +S1, +S2. Absent: diastolic murmur, gallop, rubs, systolic murmur - GI/Abdominal GI/Abdominal exam: Present: normal bowel sounds, soft, no peritoneal signs. Absent: distended, tenderness - Extremities Exam Extremities exam: Present: warm, radial pulses palpable and symmetrical. Absent : calf tenderness, cyanotic, pedal edema - Neurological Exam Neurological exam: Present: alert, no focal deficits. Absent: facial droop, speech deficit - Skin Skin exam: Present: dry, intact Internal Medicine: Result - Labs CBC & Chem 7: 11/29/17 05:46 11/29/17 05:46 Labs: Short CBC 11/28/17 11/29/17 Range/Units 17:15 05:46 WBC 5.6 (4.3-11.1) K/mcL Hgb 9.2 L D 8.7 L (11.5-15.4) g/dL Hct 28.8 L 27.5 L (35.3-44.9) % Plt Count 67 L (140-400) K/mcL BMP 11/29/17 05:46 Sodium 142 Potassium 4.4 Chloride 105 Carbon Dioxide 31 H BUN 30 H Creatinine 4.30 H Glucose 86 Calcium 7.0 L - ABG Interpretation ABG results: PT/INR, D-dimer PT 16.2 Seconds (9.4-12.1) H 11/14/17 10:30 - VTE Documentation of Mechanical Device: Intermittent pneumatic compression device Consult Discharge Plan - Plan Referrals: Na Johansen, [employer] [Primary Care Provider] - 12/01/17 1:00 pm (Please follow up as schedule...) <Lion Topete - Last Filed: 11/29/17 14:15> Date of Encounter: 11/29/17 - Assessment and plan (1) Sepsis Current Visit: Yes Status: Acute Qualifiers: Sepsis type: sepsis due to unspecified organism Qualified Code(s): A41.9 - Sepsis, unspecified organism (2) Fungemia Current Visit: Yes Status: Acute (3) Cavitary lesion of lung Current Visit: Yes Status: Acute (4) Pneumonia Current Visit: Yes Status: Suspected Qualifiers: Pneumonia type: due to unspecified organism Laterality: right Lung location: lower lobe of lung Qualified Code(s): J18.1 - Lobar pneumonia, unspecified organism (5) Bicytopenia Current Visit: No Status: Chronic (6) Chest pain Current Visit: Yes Status: Acute Qualifiers: Chest pain type: unspecified Qualified Code(s): R07.9 - Chest pain, unspecified (7) Elevated troponin Current Visit: Yes Status: Acute (8) Acute respiratory failure with hypoxia Current Visit: No Status: Resolved (9) Atrial fibrillation with rapid ventricular response Current Visit: No Status: Resolved (10) Nausea and vomiting Current Visit: No Status: Chronic Qualifiers: Vomiting type: unspecified Vomiting Intractability: non-intractable Qualified Code(s): R11.2 - Nausea with vomiting, unspecified (11) Abdominal pain Current Visit: No Status: Chronic Qualifiers: Abdominal location: lower abdomen, unspecified Qualified Code(s): R10.30 - Lower abdominal pain, unspecified (12) Anemia in chronic kidney disease Current Visit: No Status: Chronic Qualifiers: Chronic kidney disease stage: on chronic dialysis Qualified Code(s): N18.6 - End stage renal disease; D63.1 - Anemia in chronic kidney disease; Z99.2 - Dependence on renal dialysis (13) COPD (chronic obstructive pulmonary disease) Current Visit: No Status: Chronic Qualifiers: COPD type: emphysema Emphysema type: panlobular Qualified Code(s): J43.1 - Panlobular emphysema (14) ESRD (end stage renal disease) on dialysis Current Visit: No Status: Chronic (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 (16) Tobacco abuse Current Visit: No Status: Chronic (17) Gross hematuria Current Visit: No Status: Inactive - Constitutional Vitals: Temp Pulse Resp BP Pulse Ox 97.6 F 90 19 148/53 92 11/29/17 12:18 11/29/17 12:18 11/29/17 12:18 11/29/17 12:18 11/29/17 12:18 Internal Medicine: Result - Labs CBC & Chem 7: 11/29/17 05:46 11/29/17 05:46 Labs: Short CBC 11/28/17 11/29/17 Range/Units 17:15 05:46 WBC 5.6 (4.3-11.1) K/mcL Hgb 9.2 L D 8.7 L (11.5-15.4) g/dL Hct 28.8 L 27.5 L (35.3-44.9) % Plt Count 67 L (140-400) K/mcL BMP 11/29/17 05:46 Sodium 142 Potassium 4.4 Chloride 105 Carbon Dioxide 31 H BUN 30 H Creatinine 4.30 H Glucose 86 Calcium 7.0 L - ABG Interpretation ABG results: PT/INR, D-dimer PT 16.2 Seconds (9.4-12.1) H 11/14/17 10:30 - Attending Attestation I personally interviewed and examined this patient. I agree with the findings, assessment, and plan of Dr. Jeter, internal medicine resident. Diflucan IV continues. Other antibiotics are on hold as no obvious bacterial infection identified. The opthalmologic exam revealed no evidence of fungal infection. We are still awaiting bronchoscopy results. Otherwise continue current plan. Recheck the multiple consultants involved.
--- NOTE | 2017-11-29 10:50 | Nephrology Progress Note ---
Date of Encounter: 11/29/17 Time of Encounter: 10:50 - Assessment and Plan (1) ESRD (end stage renal disease) on dialysis Status: Chronic s/p HD yesterday, next planned for friday lytes WNL except calcium improving from 6.7 to 7.0 (last albumin 3.2 as of ) (2) Anemia Status: Chronic Hgb noted improved at 8.7 after transfusion pRBCs, will monitor Continue aranesp weekly Qualifiers: Anemia type: unspecified type Qualified Code(s): D64.9 - Anemia, unspecified (3) Pneumonia Status: Acute Pulm consulted and managing pulm issues Qualifiers: Pneumonia type: due to unspecified organism Laterality: bilateral Lung location: lower lobe of lung Qualified Code(s): J18.9 - Pneumonia, unspecified organism Subjective Principal diagnosis: hypoxic respiratiory failure 2/2 COPD exacerbation 2/2 PNA Interval history: Pt seen and examined with now new complaints but feel weak today. s/p HD yesterday. Objective - Vital Signs Vital signs: Vital Signs Temp Pulse Resp BP Pulse Ox 11/29/17 08:12 97.6 F 91 18 158/68 98 11/29/17 07:55 18 94 11/29/17 04:10 98.7 F 82 16 151/61 93 11/29/17 03:38 18 95 11/29/17 00:17 98.4 F 101 18 168/64 95 11/28/17 23:48 18 94 11/28/17 19:29 18 94 11/28/17 18:50 98.5 F 84 18 149/70 94 11/28/17 16:27 18 92 11/28/17 15:45 98.1 F 86 16 147/87 90 11/28/17 12:55 81 18 171/66 100 11/28/17 12:50 115 18 167/56 100 11/28/17 12:45 79 18 174/62 99 11/28/17 12:40 77 18 140/53 99 11/28/17 12:27 98.4 F 81 16 140/53 91 11/28/17 12:17 97.4 F L 18 101/66 11/28/17 11:45 121/89 11/28/17 11:42 78 14 158/65 98 11/28/17 11:35 97.4 F L 72 18 125/61 11/28/17 11:31 120/77 11/28/17 11:15 114/61 11/28/17 11:10 97.5 F L 78 18 101/47 11/28/17 11:00 98/42 11/28/17 10:55 97.4 F L 78 18 109/48 11/28/17 10:50 97.4 F L 74 18 121/77 Intake and Output 11/28/17 11/29/17 11/29/17 23:59 07:59 15:59 Intake Total 0 / 0 360 / 360 Balance 0 / 0 360 / 360 Intake: Oral 0 / 0 360 / 360 Other: Meal Breakfast Percent of Meal Consumed 100% # Voids 1 Weight 58.3 kg Patient Weight 11/29/17 23:59 Weight 58.3 kg - General Appearance General appearance: Present: chronically ill, fatigue, frail EENT: Present: ATNC, mucous membranes moist Neck: Present: no JVD, supple Respiratory: Present: course breath sounds Cardiology: Present: no edema, normal S1, normal S2 Dialysis Vascular Access: Arteriovenous Fistula thrill: Yes bruit: Yes Gastrointestinal: Present: no tenderness, no guarding (+colostomy) Integumentary: Present: warm and dry Neurologic: Present: no focal deficit Musculoskeletal: Present: no deformities Psychiatric: Present: mood/affect appropriate - Lab 12/15/17 04:05 12/15/17 04:05 Most recent lab results Calcium 7.0 mg/dL (8.6-10.3) L 11/29/17 05:46 Phosphorus 5.0 mg/dL (2.7-4.5) H 11/25/17 05:00 Magnesium 1.5 mg/dL (1.6-2.6) L 11/25/17 05:00 - VTE Documentation of Mechanical Device: Intermittent pneumatic compression device Consult Discharge Plan - Plan Additional Instructions: F/up with PCP in 1-2 weeks F/up for HD 3 times/week- MWF F/up with ID in 2 weeks Referrals: Na Johansen, TYLER [Primary Care Provider] - (Call at discharge due to lengthy stay Patient will go to [facility]) Prescriptions: Gabapentin [Neurontin] 100 mg PO TID #30 capsule LORazepam [Ativan] 0.5 mg PO BID PRN 10 Days #10 tablet PRN Reason: Anxiety OxyCODONE Immed Rel [Roxicodone 5 MG] 2.5 mg PO Q5H PRN 5 Days #10 tablet PRN Reason: Pain Sulfamethoxazole/Trimeth [Bactrim 800MG/160MG/10ML] 10 ml IV BID #7 vial Sulfamethoxazole/Trimeth [Bactrim 800MG/160MG/10ML] 10 ml IV DAILY #5 vial
[2017-11-29] MEDS: *HR* Acetylcysteine 20% 600 MG/3 ML ORAL SYRINGE PO SCH ×2 (17:26→20:25)
[2017-11-30] MEDS: *HR* Promethazine 25 MG/ML VIAL IVP PRN ×3 (00:26→17:51)
[2017-11-30] MEDS: *HR* OxyCODONE Immed Rel 5 MG TABLET PO PRN ×6 (00:26→22:02)
[2017-11-30] MEDS: Ipratropium/Albuterol Neb 3 ML IH SCH ×6 (04:02→23:40)
[2017-11-30] MEDS: Ondansetron 4 MG/2 ML VIAL IVP PRN ×3 (04:34→22:02)
[2017-11-30 05:55] LABS: Hemoglobin 8.1 g/dL (11.5-15.4); Mean Corpuscular HGB Conc 31.2 g/dL (31.6-35.5); Mean Corpuscular Hemoglobin 29.3 pg (28.0-33.3); Mean Corpuscular Volume 94.2 fL (83.0-100.0); Mean Platelet Volume 11.9 fL (9.4-12.4); Red Blood Count 2.76 M/mcL (3.82-4.97); Red Cell Distribution Width 16.9 % (11.5-14.5)
[2017-11-30 05:56] LABS: Platelet Count 62 K/mcL (140-400)
[2017-11-30] MEDS: Albuterol 2.5 MG/3 ML NEBULIZER IH PRN (06:10)
[2017-11-30 06:14] LABS: Calcium 6.3 mg/dL (8.6-10.3); Potassium 4.8 mEq/L (3.5-5.1)
[2017-11-30] MEDS: Calcium Acetate 667 MG CAPSULE PO SCH ×3 (09:04→17:51)
[2017-11-30] MEDS: predniSONE 20 MG TABLET PO SCH (09:04)
[2017-11-30] MEDS: *HR* Acetylcysteine 20% 600 MG/3 ML ORAL SYRINGE PO SCH ×2 (09:06→22:03)
--- NOTE | 2017-11-30 10:44 | Internal Med Progress Note ---
<Alexis Jeter - Last Filed: 11/30/17 12:07> Date of Encounter: 11/30/17 Time of Encounter: 10:42 - Assessment and plan (1) Sepsis Current Visit: Yes Status: Acute Assessment and plan: Patient's white count did decrease to 3.3 from 5.6, but she was afebrile and nontachycardic overnight Infectious disease recommended continuing Fluconazole for 4 weeks Repeat cultures negative so far Awaiting BAL results from bronchoscopy on 11/28 Qualifiers: Sepsis type: Kelsey Qualified Code(s): B37.7 - Candidal sepsis (2) Fungemia Current Visit: Yes Status: Acute Assessment and plan: Patient will continue fluconazole 400 mg IV on dialysis days per infectious disease recommendations She was evaluated by ophthalmology and ruled out endophthalmitis (3) Pneumonia Current Visit: Yes Status: Acute Assessment and plan: CTA revealed septic emboli in bilateral lobes Continue on IV fluconazole for fungemia as above Awaiting BAL results Qualifiers: Pneumonia type: due to unspecified organism Laterality: bilateral Lung location: lower lobe of lung Qualified Code(s): J18.9 - Pneumonia, unspecified organism (4) Anemia in CKD (chronic kidney disease) Current Visit: No Status: Chronic Assessment and plan: Her Hb continues to decrease from 8.7 to 8.1, but she still continues to have no signs of active bleed and remains hemodynamically stable Will obtain stool hemoccult test Qualifiers: Chronic kidney disease stage: on chronic dialysis Qualified Code(s): N18.6 - End stage renal disease; D63.1 - Anemia in chronic kidney disease; D63.1 - Anemia in chronic kidney disease; Z99.2 - Dependence on renal dialysis; Z99.2 - Dependence on renal dialysis; Z99.2 - Dependence on renal dialysis; Z99.2 - Dependence on renal dialysis (5) Elevated troponin Current Visit: Yes Status: Acute Assessment and plan: Elevated troponin likely secondary demand ischemia in ESRD patient Repeat trop on 11/27 at 0.11, only slightly higher than admission (6) ESRD (end stage renal disease) on dialysis Current Visit: No Status: Chronic Assessment and plan: Patient underwent dialysis Friday keeping with her Friday schedule Management per nephrology Does not look fluid overloaded, and electrolytes are within normal limits (7) COPD (chronic obstructive pulmonary disease) Current Visit: No Status: Chronic Assessment and plan: Not currently in exacerbation, but she is on steroid taper Continue supportive measures with breathing treatments and supplemental oxygen Qualifiers: COPD type: COPD with acute exacerbation Qualified Code(s): J44.1 - Chronic obstructive pulmonary disease with (acute) exacerbation (8) Chest pain Current Visit: Yes Status: Acute Assessment and plan: Likely musculoskeletal from PNA secondary to chronic cough as pain is reproducible EKG 11/27 was unremarkable Qualifiers: Chest pain type: unspecified Qualified Code(s): R07.9 - Chest pain, unspecified (9) Hypothyroid Current Visit: No Status: Chronic Assessment and plan: Continue home levothyroxine Qualifiers: Hypothyroidism type: unspecified Qualified Code(s): E03.9 - Hypothyroidism , unspecified (10) Thrombocytopenia Current Visit: No Status: Chronic Assessment and plan: Platelet stable at 62 from 67 She has no signs of active bleeding (11) Atrial fibrillation Current Visit: No Status: Chronic Assessment and plan: Currently in normal sinus rhythm Continue rate control with Cardizem Not candidate for anticoagulation due to chronic thrombocytopenia Qualifiers: Atrial fibrillation type: paroxysmal Qualified Code(s): I48.0 - Paroxysmal atrial fibrillation - Subjective Interval history: Pt seen and examined. She still has the same complaints of chest pain, shortness of breath, and cough. She denies any nausea, vomiting, diarrhea. - Constitutional Vitals: Temp Pulse Resp BP Pulse Ox 97.8 F 87 16 137/56 99 11/30/17 07:57 11/30/17 07:57 11/30/17 07:57 11/30/17 07:57 11/30/17 09:00 General appearance: Present: cachectic, mild distress, underweight, answers questions appropriately - Head Head exam: Present: atraumatic, normocephalic - Eye Eye exam: Present: PERRL, conjuntiva pink, sclera anicteric - Neck Neck exam general surgery: Present: supple, trachea midline. Absent: lymphadenopathy - Respiratory Respiratory exam: Present: wheezes. Absent: accessory muscle use, rales, rhonchi - Cardiovascular Cardiovascular exam: Present: RRR, +S1, +S2. Absent: diastolic murmur, gallop, rubs, systolic murmur - GI/Abdominal GI/Abdominal exam: Present: normal bowel sounds, soft, no peritoneal signs. Absent: distended, tenderness - Extremities Exam Extremities exam: Present: warm, radial pulses palpable and symmetrical. Absent : calf tenderness, cyanotic, pedal edema - Neurological Exam Neurological exam: Present: alert, no focal deficits. Absent: facial droop, speech deficit - Skin Skin exam: Present: dry, intact Internal Medicine: Result - Labs CBC & Chem 7: 11/30/17 04:50 11/30/17 04:50 Labs: Short CBC 11/30/17 Range/Units 04:50 WBC 3.3 L (4.3-11.1) K/mcL Hgb 8.1 L (11.5-15.4) g/dL Hct 26.0 L (35.3-44.9) % Plt Count 62 L (140-400) K/mcL BMP 11/30/17 04:50 Sodium 142 Potassium 4.8 Chloride 105 Carbon Dioxide 25 BUN 44 H Creatinine 5.64 H Glucose 118 H Calcium 6.3 L - ABG Interpretation ABG results: PT/INR, D-dimer PT 16.2 Seconds (9.4-12.1) H 11/14/17 10:30 - VTE Documentation of Mechanical Device: Intermittent pneumatic compression device Consult Discharge Plan - Plan Referrals: Na Johansen, ACUPRESSURIST [Primary Care Provider] - 12/01/17 1:00 pm (Please follow up as schedule...) <Lion Topete - Last Filed: 11/30/17 13:41> Date of Encounter: 11/30/17 - Assessment and plan (1) Sepsis Current Visit: Yes Status: Acute Qualifiers: Sepsis type: sepsis due to unspecified organism Qualified Code(s): A41.9 - Sepsis, unspecified organism (2) Fungemia Current Visit: Yes Status: Acute (3) Cavitary lesion of lung Current Visit: Yes Status: Acute (4) Pneumonia Current Visit: Yes Status: Suspected Qualifiers: Pneumonia type: due to unspecified organism Laterality: right Lung location: lower lobe of lung Qualified Code(s): J18.1 - Lobar pneumonia, unspecified organism (5) Bicytopenia Current Visit: No Status: Chronic (6) Chest pain Current Visit: Yes Status: Acute Qualifiers: Chest pain type: unspecified Qualified Code(s): R07.9 - Chest pain, unspecified (7) Elevated troponin Current Visit: Yes Status: Acute (8) Acute respiratory failure with hypoxia Current Visit: No Status: Resolved (9) Atrial fibrillation with rapid ventricular response Current Visit: No Status: Resolved (10) Nausea and vomiting Current Visit: No Status: Chronic Qualifiers: Vomiting type: unspecified Vomiting Intractability: non-intractable Qualified Code(s): R11.2 - Nausea with vomiting, unspecified (11) Abdominal pain Current Visit: No Status: Chronic Qualifiers: Abdominal location: lower abdomen, unspecified Qualified Code(s): R10.30 - Lower abdominal pain, unspecified (12) Anemia in chronic kidney disease Current Visit: No Status: Chronic Qualifiers: Chronic kidney disease stage: on chronic dialysis Qualified Code(s): N18.6 - End stage renal disease; D63.1 - Anemia in chronic kidney disease; Z99.2 - Dependence on renal dialysis (13) COPD (chronic obstructive pulmonary disease) Current Visit: No Status: Chronic Qualifiers: COPD type: emphysema Emphysema type: panlobular Qualified Code(s): J43.1 - Panlobular emphysema (14) ESRD (end stage renal disease) on dialysis Current Visit: No Status: Chronic (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 (16) Tobacco abuse Current Visit: No Status: Chronic (17) Gross hematuria Current Visit: No Status: Inactive - Constitutional Vitals: Temp Pulse Resp BP Pulse Ox 97.9 F 93 18 168/78 94 11/30/17 12:12 11/30/17 12:12 11/30/17 12:12 11/30/17 12:12 11/30/17 12:12 Internal Medicine: Result - Labs CBC & Chem 7: 11/30/17 04:50 11/30/17 04:50 Labs: Short CBC 11/30/17 Range/Units 04:50 WBC 3.3 L (4.3-11.1) K/mcL Hgb 8.1 L (11.5-15.4) g/dL Hct 26.0 L (35.3-44.9) % Plt Count 62 L (140-400) K/mcL BMP 11/30/17 04:50 Sodium 142 Potassium 4.8 Chloride 105 Carbon Dioxide 25 BUN 44 H Creatinine 5.64 H Glucose 118 H Calcium 6.3 L - ABG Interpretation ABG results: PT/INR, D-dimer PT 16.2 Seconds (9.4-12.1) H 11/14/17 10:30 - Attending Attestation I personally interviewed and examined this patient. I agree with the findings, assessment, and plan of Dr. Jeter, internal medicine resident. Patient has significant anxiety at times but otherwise appears to be comfortable. She continues on IV fluid and for fungemia. Cost the results are pending to rule out infection or other process. She has her next hemodialysis scheduled for tomorrow. I suspect once bronchoscopy results are back and finalize, we can work towards' s position. Else as outlined. We will monitor with periodic chest x-ray. Pulmonary Medicine and infectious disease as well as nephrology inputs are appreciated.
--- NOTE | 2017-11-30 12:26 | Nephrology Progress Note ---
Date of Encounter: 11/30/17 Time of Encounter: 12:00 - Assessment and Plan (1) Anemia Current Visit: No Status: Chronic Hgb noted fairly at 8.7 after pRBCs transfuison on friday Continue aranesp weekly Qualifiers: Anemia type: unspecified type Qualified Code(s): D64.9 - Anemia, unspecified (2) ESRD (end stage renal disease) on dialysis Current Visit: No Status: Chronic s/p HD friday, next planned for friday lytes WNL except calcium improving from 6.7 to 7.0 (last albumin 3.2 as of ), will start vitamin D supplements Subjective Principal diagnosis: hypoxic respiratiory failure 2/2 COPD exacerbation 2/2 PNA Interval history: Pt seen and examined sitting up in bed eating lunch, no new complaints Objective - Vital Signs Vital signs: Vital Signs Temp Pulse Resp BP Pulse Ox 11/30/17 12:12 97.9 F 93 18 168/78 94 11/30/17 11:36 16 99 11/30/17 09:00 99 11/30/17 07:57 97.8 F 87 16 137/56 99 11/30/17 07:39 18 99 11/30/17 06:10 18 99 11/30/17 04:51 98.1 F 90 16 167/71 99 11/30/17 04:02 18 99 11/29/17 23:56 17 99 11/29/17 22:39 98.9 F 80 14 160/68 99 11/29/17 19:55 18 100 11/29/17 18:54 98.1 F 80 14 171/73 100 11/29/17 16:39 98.1 F 82 18 160/71 100 11/29/17 15:50 19 94 Intake and Output 11/29/17 11/30/17 11/30/17 23:59 07:59 15:59 Intake Total 1190 / 1190 200 / 200 360 / 360 Output Total 250 / 250 Balance 940 / 940 200 / 200 360 / 360 Intake: Oral 1190 / 1190 200 / 200 360 / 360 Output: Stool 250 / 250 Urostomy 0 / 0 Other: Meal Breakfast Percent of Meal Consumed 100% Stool Consistency liquid Stool Color Brown Yellow Weight 58.7 kg Patient Weight 11/30/17 23:59 Weight 58.7 kg - General Appearance General appearance: Present: chronically ill, frail EENT: Present: ATNC, mucous membranes moist Neck: Present: no JVD, supple Respiratory: Present: course breath sounds Cardiology: Present: no edema, normal S1, normal S2 Dialysis Vascular Access: Arteriovenous Fistula thrill: Yes bruit: Yes Gastrointestinal: Present: no tenderness, no guarding (s/p colectomy) Integumentary: Present: warm and dry Neurologic: Present: no focal deficit Musculoskeletal: Present: no deformities Psychiatric: Present: mood/affect appropriate - Lab 11/30/17 04:50 11/30/17 04:50 Most recent lab results Calcium 6.3 mg/dL (8.6-10.3) L 11/30/17 04:50 Phosphorus 5.0 mg/dL (2.7-4.5) H 11/25/17 05:00 Magnesium 1.5 mg/dL (1.6-2.6) L 11/25/17 05:00 - VTE Documentation of Mechanical Device: Intermittent pneumatic compression device Consult Discharge Plan - Plan Referrals: Na Johansen [employer]AD [Primary Care Provider] - 12/01/17 1:00 pm (Please follow up as schedule...)
[2017-11-30] MEDS: Nicotine 21 MG PATCH.TD24 TD SCH (13:33)
[2017-11-30 14:32] LABS: A.galactomannan Ag Index 0.06
[2017-12-01] MEDS: *HR* Promethazine 25 MG/ML VIAL IVP PRN ×2 (01:12→06:29)
[2017-12-01] MEDS: *HR* OxyCODONE Immed Rel 5 MG TABLET PO PRN ×5 (02:24→21:05)
[2017-12-01] MEDS: Ondansetron 4 MG/2 ML VIAL IVP PRN ×3 (02:25→21:06)
[2017-12-01] MEDS: Ipratropium/Albuterol Neb 3 ML IH SCH ×5 (03:56→20:42)
[2017-12-01 04:09] LABS: Hemoglobin 8.4 g/dL (11.5-15.4); Immature Platelets 4.3 % (1.1-6.1); Mean Corpuscular HGB Conc 32.3 g/dL (31.6-35.5); Mean Corpuscular Volume 92.9 fL (83.0-100.0); Mean Platelet Volume 11.2 fL (9.4-12.4); Red Blood Count 2.8 M/mcL (3.82-4.97); Red Cell Distribution Width 16.9 % (11.5-14.5)
[2017-12-01 05:15] LABS: Calcium 6.4 mg/dL (8.6-10.3); Potassium 5.6 mEq/L (3.5-5.1)
[2017-12-01] MEDS: Calcium Acetate 667 MG CAPSULE PO SCH ×3 (08:19→16:56)
[2017-12-01] MEDS: predniSONE 20 MG TABLET PO SCH (08:20)
[2017-12-01] MEDS: Nicotine 21 MG PATCH.TD24 TD SCH (08:21)
[2017-12-01] MEDS: *HR* Acetylcysteine 20% 600 MG/3 ML ORAL SYRINGE PO SCH (08:23)
[2017-12-01] MEDS ORDERED: 0.9 % Sodium Chloride 250 ML IVC PRN (09:05)
[2017-12-01] MEDS ORDERED: 0.9 % Sodium Chloride 1,000 ML PRIME SCH (09:15)
--- NOTE | 2017-12-01 09:51 | Pulmonology Progress Note ---
Date of Encounter: 12/02/17 Time of Encounter: 09:30 Assessment and Plan (1) Acute respiratory failure with hypoxia Current Visit: No Status: Resolved secondary to health care associated pneumonia , fluid overload , COPD exacerbation patient responded to treatment well she is almost off Oxygen to wean FIO2 as tolerated with SPO2 around 90% (2) Sepsis Current Visit: Yes Status: Resolved Patient sepsis resolved to continue antifungal the blood culture so far is negative will follow BAL cultures Qualifiers: Sepsis type: Kelsey Qualified Code(s): B37.7 - Candidal sepsis (3) Pneumonia Current Visit: Yes Status: Suspected To descalate antibiotics the multifocal pneumonia more likely due to septic emboli secondary to fungal bactremia had a recent BAL is not growing any organisms Qualifiers: Pneumonia type: due to unspecified organism Laterality: right Lung location: lower lobe of lung Qualified Code(s): J18.1 - Lobar pneumonia, unspecified organism (4) COPD (chronic obstructive pulmonary disease) Current Visit: No Status: Chronic To continue bronchodilators on discharge duo neb nebulizer and LAMA /LABA combination like Anoro or stiolto Qualifiers: COPD type: emphysema Emphysema type: panlobular Qualified Code(s): J43.1 - Panlobular emphysema (5) ESRD (end stage renal disease) on dialysis Current Visit: No Status: Chronic To continue dialysis according toe nephrology (6) Atrial fibrillation Current Visit: No Status: Chronic To continue management according to primary treatment Qualifiers: Atrial fibrillation type: paroxysmal Qualified Code(s): I48.0 - Paroxysmal atrial fibrillation Subjective Principal diagnosis: hypoxic respiratiory failure 2/2 COPD exacerbation 2/2 PNA Interval history: Patient is getting her dialysis patient complaints of chronic chest pain otherwise no acute issues still feel tired and weak denies any fever or chills blood cultures are negative Objective PUL Vital signs: Last Vital Signs Temp 98.1 F 12/01/17 08:25 Pulse 98 12/01/17 08:25 Resp 17 12/01/17 08:25 BP 168/81 12/01/17 08:25 Pulse Ox 94 12/01/17 08:25 Auscultation: bilateral: diminished breath sounds Results - Laboratory Findings CBC and BMP: 12/02/17 06:52 12/02/17 06:52 PT/INR, D-dimer PT 16.2 Seconds (9.4-12.1) H 11/14/17 10:30 Abnormal lab findings: Abnormal lab results WBC 4.2 K/mcL (4.3-11.1) L 12/01/17 03:40 RBC 2.80 M/mcL (3.82-4.97) L 12/01/17 03:40 Hgb 8.4 g/dL (11.5-15.4) L 12/01/17 03:40 Hct 26.0 % (35.3-44.9) L 12/01/17 03:40 RDW 16.9 % (11.5-14.5) H 12/01/17 03:40 Plt Count 52 K/mcL (140-400) L 12/01/17 03:40 Neutrophils # 11.5 K/mcL (1.6-8.9) H 11/25/17 05:00 PT 16.2 Seconds (9.4-12.1) H 11/14/17 10:30 VBG pH 7.31 pH Units (7.32-7.42) L 11/17/17 06:13 VBG pO2 74 mmHg (25-50) H 11/17/17 06:13 Potassium 5.6 mEq/L (3.5-5.1) H 12/01/17 03:40 BUN 54 mg/dL (8-23) H 12/01/17 03:40 Creatinine 6.30 mg/dL (0.60-1.20) H 12/01/17 03:40 Est GFR ( Amer) 8 (> 60) L 12/01/17 03:40 Est GFR (Non-Af Amer) 7 (> 60) L 12/01/17 03:40 Calculated Osmolality 302 (280-300) H 12/01/17 03:40 Calcium 6.4 mg/dL (8.6-10.3) L 12/01/17 03:40 Venous Ioniz Calcium 0.99 mmol/L (1.15-1.35) L 11/17/17 06:13 Phosphorus 5.0 mg/dL (2.7-4.5) H 11/25/17 05:00 Magnesium 1.5 mg/dL (1.6-2.6) L 11/25/17 05:00 Troponin I 0.11 ng/mL (< 0.04) H* 11/27/17 12:10 Serum Total Protein 5.1 g/dL (6.4-8.9) L 11/24/17 05:25 Albumin 3.2 g/dL (3.5-5.7) L 11/24/17 05:25 Globulin 1.9 g/dL (2.4-3.5) L 11/24/17 05:25 Fluid Appearance Cloudy (Clear) A 11/28/17 13:00 Coronavirus HKU1 (PCR) DETECTED (Not Detect) A 11/18/17 08:41 RSV (PCR) DETECTED (Not Detect) A 11/18/17 08:41 B-(1,3)-D-Glucan Intrp POSITIVE (Negative) A 11/28/17 05:30 - Microbiology Findings Microbiology Findings: Microbiology, Last 48 Hours 11/28/17 13:00 Respiratory Culture - Preliminary Right Middle Lobe Lung Gram Negative Osmin 11/28/17 13:00 Acid Fast Stain - Final Right Middle Lobe Lung 11/27/17 09:38 Blood Culture - Preliminary Peripheral Venipuncture No growth. 11/27/17 08:37 Blood Culture - Preliminary Peripheral Venipuncture No growth. - Clinical Findings Intake & Output: Intake & Output 11/30/17 12/01/17 12/01/17 23:59 07:59 15:59 Intake Total 360 / 360 Balance 360 / 360 Weight 58.7 kg - VTE Documentation of Mechanical Device: Intermittent pneumatic compression device Consult Discharge Plan - Plan Referrals: Na Johansen, HAMMER SMITH [Primary Care Provider] - 12/01/17 1:00 pm (Please follow up as schedule...)
--- NOTE | 2017-12-01 11:55 | Infectious Disease Progress No ---
Date of Encounter: 12/01/17 Time of Encounter: 11:53 - Assessment and Plan (1) Sepsis Current Visit: Yes Status: Acute Severe sepsis on admission. The patient had two SIRS criteria with hypotension responsive to IV fluids. Likely secondary to fungemia and PNA. Improved. The patient has been afebrile. Hypotension has resolved. Tachycardia has resolved. Peripheral blood cultures drawn 11/14/17 were positive 2/2 for Kelsey lusitaniae. Additional peripheral fungal blood culture drawn 11/16/17 is positive as well. Peripheral blood cultures drawn 11/17/16 were negative. A-port blood cultures drawn 11/17/17 were positive. The patient has had no additional SIRS criteria to indicate a new source of infection. Repeat blood cultures x 2 sets drawn 11/27/17 are NGTD. Qualifiers: Sepsis type: sepsis due to unspecified organism Qualified Code(s): A41.9 - Sepsis, unspecified organism (2) Fungemia Current Visit: Yes Status: Acute Causative organism Kelsey lusitiniae. Source unclear, but the patient was recently on TPN given through her a-port. Her a-port was removed 11/18/17. Peripheral blood cultures drawn 11/14/17 were positive 2/2. Additional peripheral fungal blood culture drawn 11/16/17 is positive as well. No blood cultures were drawn from the patient's a-port before antifungals were started. Repeat blood cultures x 2 sets from the a-port are positive and x2 sets from a peripheral stick drawn 11/17/17 are negative. Additional blood cultures drawn 11/27/17 are NGTD x 2 sets. Continue fluconazole, 400mg IV daily on HD days only. Opthalmology evaluation noted and appreciated. No endopthalmitis. Repeat LFTs with AM labs. Okay to consult VAT for EPIV placement prior to discharge unless fluconazole can be given at the HD unit. Duration of treatment depends on the clinical picture, but likely 2 weeks of IV fluconazole. Treat through 12/03/17, then discontinue. Monitor CBC and LFTs while on antifungals. (3) Cavitary lesion of lung Current Visit: Yes Status: Acute CTA of the chest shows new when compared to previous examination (Oct 2017) multiple focal areas of consolidation within the periphery of the lungs, some with focal cavitation. Per radiology, given the rapid development, septic emboli are primarily considered. In addition, there are innumerable punctate centrilobular tree-in-bud ground-glass nodules that have an inflammatory/ infectious appearance, likely related related to infectious bronchiolitis, but could also be hematogenous as well. CT scan reviewed with Pulmonology team. Etiology unclear: fungemia vs. other. No CT scan obtained during this hospitalization to tell us if these lesions were there on admission or not. Pulmonology recommendations noted and appreciated. Status post bronchoscopy 11/28. Endoscopy report reviewed. Minimal secretions noted. No mucous plugs. BAL of the RML shows GNR, final ID and sensitivities pending. Continue antifungals as above. Fungal serologies noted. Fungitell positive, but fungal BAL studies are negative so far. (4) Pneumonia Current Visit: Yes Status: Suspected Location: Bilaterally. Causative organism unclear, but possible viral. RIP positive for HSV and Coronavirus. Previous sputum cultures positive for S. maltophilia, PSEA, and E. coli. CXR showed patchy airspace opacities bilaterally, more pronounced in the right lung base.. Previously completed a 7 day course of Levaquin. Review of the medical record shows that the patient has had multiple recurrences of PNA over the past six months. Pulmonology consulted. Status post bronchoscopy 11/28/17. Endoscopy report reviewed. Minimal secretions. RML BAL shows GNR. Final ID and sensitivities are pending. Qualifiers: Pneumonia type: due to unspecified organism Laterality: right Lung location: lower lobe of lung Qualified Code(s): J18.1 - Lobar pneumonia, unspecified organism (5) Bicytopenia Current Visit: No Status: Chronic Continues to have anemia and thrombocytopenia and has developed leukopenia over the weekend. Continue trend. Further workup and management per the primary team. (6) Chest pain Current Visit: Yes Status: Acute Appears musculoskeletal in origin. Likely secondary to PNA and chostochondritis. Troponin elevated likely secondary to demand ischemia from ESRD, but may consider formal cardiology consult. Further workup and management per the primary team. Qualifiers: Chest pain type: unspecified Qualified Code(s): R07.9 - Chest pain, unspecified (7) Elevated troponin Current Visit: Yes Status: Acute Likely chronic secondary to CKD. EKG shows no acute changes. Further workup and management per the primary team. (8) Nausea and vomiting Current Visit: No Status: Chronic Likely secondary to short gut syndrome. Management per the primary team. Qualifiers: Vomiting type: unspecified Vomiting Intractability: non-intractable Qualified Code(s): R11.2 - Nausea with vomiting, unspecified (9) Abdominal pain Current Visit: No Status: Chronic Chronic. Further workup and management per the primary team. Qualifiers: Abdominal location: lower abdomen, unspecified Qualified Code(s): R10.30 - Lower abdominal pain, unspecified (10) Anemia in chronic kidney disease Current Visit: No Status: Chronic Likely multifactorial: poor nutrition + anemia of CKD. Management per the primary and nephrology teams. Qualifiers: Chronic kidney disease stage: on chronic dialysis Qualified Code(s): N18.6 - End stage renal disease; D63.1 - Anemia in chronic kidney disease; Z99.2 - Dependence on renal dialysis (11) COPD (chronic obstructive pulmonary disease) Current Visit: No Status: Chronic Management per the primary and pulmonology teams. Qualifiers: COPD type: emphysema Emphysema type: panlobular Qualified Code(s): J43.1 - Panlobular emphysema (12) ESRD (end stage renal disease) on dialysis Current Visit: No Status: Chronic Nephrology consulted and following. 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 Recently started on TPN, but the patient could not tolerate. Likely contributing to the patient's poor nutritional status. Management per the primary team. (14) Tobacco abuse Current Visit: No Status: Chronic - Subjective Interval history: Patient seen and examined in the HD unit. No acute events noted overnight. Reports pain in her entire chest, worse with deep cough or inspiration. She continues to report shortness of breath with moist nonproductive cough, but does not appear to be in any acute distress. She reports chronic nausea and vomiting with by mouth intake. She states she had a rough night and doesn't feel well today. She reports liquid stool from her colostomy. She denies blood from her urostomy or colostomy. She denies oral thrush or new skin lesions. She denies fevers, chills, or rigors. Infect Dis PN-Objective Data - Labs CBC & Chem 7: 12/01/17 03:40 12/01/17 03:40 Labs: Laboratory Results - last 24 hr 11/28/17 11/28/17 11/28/17 05:30 05:30 05:30 WBC RBC Hgb Hct MCV MCH MCHC RDW Plt Count MPV Immature Plt Fraction Sodium Potassium Chloride Carbon Dioxide BUN Creatinine Est GFR ( Amer) Est GFR (Non-Af Amer) BUN/Creatinine Ratio Glucose Calculated Osmolality Calcium Stool Occult Blood Blastomyces Ab Comp Fx SEE BELOW Histoplasma Antigen <2.0 Histoplasma Ag Interp NEGATIVE A. galactomannan Ag NEGATIVE A. galactomannan Ag Idx 0.06 Beta-(1,3)-D-Glucan >500 B-(1,3)-D-Glucan Intrp POSITIVE A 11/30/17 12/01/17 12/01/17 18:00 03:40 03:40 WBC 4.2 L RBC 2.80 L Hgb 8.4 L Hct 26.0 L MCV 92.9 MCH 30.0 MCHC 32.3 RDW 16.9 H Plt Count 52 L MPV 11.2 Immature Plt Fraction 4.3 Sodium 139 Potassium 5.6 H Chloride 103 Carbon Dioxide 23 BUN 54 H Creatinine 6.30 H Est GFR ( Amer) 8 L Est GFR (Non-Af Amer) 7 L BUN/Creatinine Ratio 9 Glucose 83 Calculated Osmolality 302 H Calcium 6.4 L Stool Occult Blood Negative Blastomyces Ab Comp Fx Histoplasma Antigen Histoplasma Ag Interp A. galactomannan Ag A. galactomannan Ag Idx Beta-(1,3)-D-Glucan B-(1,3)-D-Glucan Intrp Cultures: Cultures 11/28/17 13:00 Respiratory Culture - Preliminary Right Middle Lobe Lung Gram Negative Osmin 11/28/17 13:00 Acid Fast Stain - Final Right Middle Lobe Lung 11/27/17 09:38 Blood Culture - Preliminary Peripheral Venipuncture No growth. 11/27/17 08:37 Blood Culture - Preliminary Peripheral Venipuncture No growth. 11/16/17 05:13 Blood Fungal Culture - Final Peripheral Venipuncture No growth. 11/19/17 07:30 Blood Culture - Final Port System No growth. 11/19/17 07:35 Blood Culture - Final Port System No growth. 11/17/17 17:31 Blood Culture - Final Peripheral Venipuncture No growth. 11/17/17 17:31 Blood Culture - Final Peripheral Venipuncture No growth. 11/19/17 10:10 Catheter Tip Culture - Final Intravenous or Arterial Cath No growth. 11/17/17 18:09 Blood Culture - Final Port System Kelsey lusitaniae 11/16/17 05:05 Blood Fungal Culture - Final Peripheral Venipuncture Kelsey lusitaniae Serology 11/30/17 11/28/17 11/28/17 Range/Units 18:00 13:00 05:30 Fluid Source RML BAL Fluid Volume 25 mL Fluid Appearance Cloudy A (Clear) Fluid RBC 0.002 (No Ref Range) M/mcL Fld Tot Nucleated Cell 1663 (No Ref Range) TNC/mcL Fluid Seg Neutrophil % 18.0 % Fld Band Neutrophil % 0.0 % Fluid Lymphocytes % 34.0 % Fluid Monocytes % 1.0 % Fluid Eosinophils % 0.0 % Fluid Basophils % 0.0 % Fluid Other Cells % 47.0 % Stool Occult Blood Negative (Negative) A. baumannii (PCR) (Not Detect) Chlamy pneumoniae PCR (Not Detect) Adenovirus (PCR) (Not Detect) Blastomyces Ab Comp Fx B. pertussis DNA (PCR) (Not Detect) B.parapertussis DNA PCR (Not Detect) Kelsey albicans (PCR) (Not Detect) C. glabrata (PCR) (Not Detect) C. krusei (PCR) (Not Detect) C. parapsilosis (PCR) (Not Detect) C. tropicalis (PCR) (Not Detect) Coronavirus OC43 (PCR) (Not Detect) Coronavirus HKU1 (PCR) (Not Detect) Coronavirus 229E (PCR) (Not Detect) Coronavirus NL63 (PCR) (Not Detect) Enterobacteriac sp PCR (Not Detect) E. cloacae complex PCR (Not Detect) Enterococcus sp PCR (Not Detect) E. coli (PCR) (Not Detect) H. influenzae (PCR) (Not Detect) Histoplasma Antigen U/mL Histoplasma Ag Interp (Negative) Human Metapneumovir PCR (Not Detect) Influenza A (H1) PCR (Not Detect) Influ A (H1N1/09) PCR (Not Detect) Influenza A (H3) PCR (Not Detect) Influenza A Untype (PCR) (Not Detect) Influenza Type B (PCR) (Not Detect) Klebsiella oxytoca PCR (Not Detect) Klebsiella pneumoniae (Not Detect) List. monocytogenes PCR (Not Detect) M.pneumoniae DNA (PCR) (Not Detect) N. meningitidis (PCR) (Not Detect) Parainfluenza 1 (PCR) (Not Detect) Parainfluenza 2 (PCR) (Not Detect) Parainfluenza 3 (PCR) (Not Detect) Parainfluenza 4 (PCR) (Not Detect) A. galactomannan Ag NEGATIVE (Negative) A. galactomannan Ag Idx 0.06 Proteus species (PCR) (Not Detect) RSV (PCR) (Not Detect) Entero/Rhino (PCR) (Not Detect) Serratia marcescens PCR (Not Detect) Staphylococcus sp PCR (Not Detect) Staph aureus (PCR) (Not Detect) mecA-Methicil Res Gene (Not Detect) Streptococcus sp PCR (Not Detect) Group A Strep DNA (Not Detect) Group B Strep (PCR) (Not Detect) Strep pneumoniae (PCR) (Not Detect) P. aeruginosa (PCR) (Not Detect) Yony/B-Vanco Res Genes (Not Detect) KPC (blaKPC) Detect PCR (Not Detect) Beta-(1,3)-D-Glucan pg/mL B-(1,3)-D-Glucan Intrp (Negative) 11/28/17 11/28/17 11/18/17 Range/Units 05:30 05:30 08:41 Fluid Source Fluid Volume mL Fluid Appearance (Clear) Fluid RBC (No Ref Range) M/mcL Fld Tot Nucleated Cell (No Ref Range) TNC/mcL Fluid Seg Neutrophil % % Fld Band Neutrophil % % Fluid Lymphocytes % % Fluid Monocytes % % Fluid Eosinophils % % Fluid Basophils % % Fluid Other Cells % % Stool Occult Blood (Negative) A. baumannii (PCR) (Not Detect) Chlamy pneumoniae PCR Not Detected (Not Detect) Adenovirus (PCR) Not Detected (Not Detect) Blastomyces Ab Comp Fx SEE BELOW B. pertussis DNA (PCR) Not Detected (Not Detect) B.parapertussis DNA PCR Not Detected (Not Detect) Kelsey albicans (PCR) (Not Detect) C. glabrata (PCR) (Not Detect) C. krusei (PCR) (Not Detect) C. parapsilosis (PCR) (Not Detect) C. tropicalis (PCR) (Not Detect) Coronavirus OC43 (PCR) Not Detected (Not Detect) Coronavirus HKU1 (PCR) DETECTED A (Not Detect) Coronavirus 229E (PCR) Not Detected (Not Detect) Coronavirus NL63 (PCR) Not Detected (Not Detect) Enterobacteriac sp PCR (Not Detect) E. cloacae complex PCR (Not Detect) Enterococcus sp PCR (Not Detect) E. coli (PCR) (Not Detect) H. influenzae (PCR) (Not Detect) Histoplasma Antigen <2.0 U/mL Histoplasma Ag Interp NEGATIVE (Negative) Human Metapneumovir PCR Not Detected (Not Detect) Influenza A (H1) PCR Not Detected (Not Detect) Influ A (H1N1/09) PCR Not Detected (Not Detect) Influenza A (H3) PCR Not Detected (Not Detect) Influenza A Untype (PCR) Not Detected (Not Detect) Influenza Type B (PCR) Not Detected (Not Detect) Klebsiella oxytoca PCR (Not Detect) Klebsiella pneumoniae (Not Detect) List. monocytogenes PCR (Not Detect) M.pneumoniae DNA (PCR) Not Detected (Not Detect) N. meningitidis (PCR) (Not Detect) Parainfluenza 1 (PCR) Not Detected (Not Detect) Parainfluenza 2 (PCR) Not Detected (Not Detect) Parainfluenza 3 (PCR) Not Detected (Not Detect) Parainfluenza 4 (PCR) Not Detected (Not Detect) A. galactomannan Ag (Negative) A. galactomannan Ag Idx Proteus species (PCR) (Not Detect) RSV (PCR) DETECTED A (Not Detect) Entero/Rhino (PCR) Not Detected (Not Detect) Serratia marcescens PCR (Not Detect) Staphylococcus sp PCR (Not Detect) Staph aureus (PCR) (Not Detect) mecA-Methicil Res Gene (Not Detect) Streptococcus sp PCR (Not Detect) Group A Strep DNA (Not Detect) Group B Strep (PCR) (Not Detect) Strep pneumoniae (PCR) (Not Detect) P. aeruginosa (PCR) (Not Detect) Yony/B-Vanco Res Genes (Not Detect) KPC (blaKPC) Detect PCR (Not Detect) Beta-(1,3)-D-Glucan >500 pg/mL B-(1,3)-D-Glucan Intrp POSITIVE A (Negative) 11/17/17 11/17/17 Range/Units 18:09 17:31 Fluid Source Fluid Volume mL Fluid Appearance (Clear) Fluid RBC (No Ref Range) M/mcL Fld Tot Nucleated Cell (No Ref Range) TNC/mcL Fluid Seg Neutrophil % % Fld Band Neutrophil % % Fluid Lymphocytes % % Fluid Monocytes % % Fluid Eosinophils % % Fluid Basophils % % Fluid Other Cells % % Stool Occult Blood (Negative) A. baumannii (PCR) Not Detected (Not Detect) Chlamy pneumoniae PCR (Not Detect) Adenovirus (PCR) (Not Detect) Blastomyces Ab Comp Fx B. pertussis DNA (PCR) (Not Detect) B.parapertussis DNA PCR (Not Detect) Kelsey albicans (PCR) Not Detected (Not Detect) C. glabrata (PCR) Not Detected (Not Detect) C. krusei (PCR) Not Detected (Not Detect) C. parapsilosis (PCR) Not Detected (Not Detect) C. tropicalis (PCR) Not Detected (Not Detect) Coronavirus OC43 (PCR) (Not Detect) Coronavirus HKU1 (PCR) (Not Detect) Coronavirus 229E (PCR) (Not Detect) Coronavirus NL63 (PCR) (Not Detect) Enterobacteriac sp PCR Not Detected (Not Detect) E. cloacae complex PCR Not Detected (Not Detect) Enterococcus sp PCR Not Detected (Not Detect) E. coli (PCR) Not Detected (Not Detect) H. influenzae (PCR) Not Detected (Not Detect) Histoplasma Antigen U/mL Histoplasma Ag Interp (Negative) Human Metapneumovir PCR (Not Detect) Influenza A (H1) PCR (Not Detect) Influ A (H1N1/09) PCR (Not Detect) Influenza A (H3) PCR (Not Detect) Influenza A Untype (PCR) (Not Detect) Influenza Type B (PCR) (Not Detect) Klebsiella oxytoca PCR Not Detected (Not Detect) Klebsiella pneumoniae Not Detected (Not Detect) List. monocytogenes PCR Not Detected (Not Detect) M.pneumoniae DNA (PCR) (Not Detect) N. meningitidis (PCR) Not Detected (Not Detect) Parainfluenza 1 (PCR) (Not Detect) Parainfluenza 2 (PCR) (Not Detect) Parainfluenza 3 (PCR) (Not Detect) Parainfluenza 4 (PCR) (Not Detect) A. galactomannan Ag (Negative) A. galactomannan Ag Idx Proteus species (PCR) Not Detected (Not Detect) RSV (PCR) (Not Detect) Entero/Rhino (PCR) (Not Detect) Serratia marcescens PCR Not Detected (Not Detect) Staphylococcus sp PCR Not Detected (Not Detect) Staph aureus (PCR) Not Detected (Not Detect) mecA-Methicil Res Gene N/A (Not Detect) Streptococcus sp PCR Not Detected (Not Detect) Group A Strep DNA Not Detected (Not Detect) Group B Strep (PCR) Not Detected (Not Detect) Strep pneumoniae (PCR) Not Detected (Not Detect) P. aeruginosa (PCR) Not Detected (Not Detect) Yony/B-Vanco Res Genes N/A (Not Detect) KPC (blaKPC) Detect PCR N/A (Not Detect) Beta-(1,3)-D-Glucan 470 pg/mL B-(1,3)-D-Glucan Intrp POSITIVE A (Negative) Exam - Constitutional Vitals: Temp Pulse Resp BP Pulse Ox 97.6 F 98 24 140/50 94 12/01/17 10:00 12/01/17 08:25 12/01/17 10:00 12/01/17 11:46 12/01/17 08:25 General appearance: cooperative, no acute distress, thin - Head Head exam: Present: atraumatic, normal inspection, normocephalic - Eye Eye exam: Present: EOMI, normal appearance, PERRL Pupils: Present: normal accommodation - ENT ENT exam: Present: mucous membranes moist - Neck Neck exam: Present: normal inspection - Respiratory Respiratory exam: Present: rhonchi (Throughout). Absent: rales, respiratory distress, wheezes - Cardiovascular Cardiovascular exam: Present: irregular rhythm. Absent: tachycardia - GI/Abdominal GI/Abdominal exam: Present: normal bowel sounds, soft, tenderness (generalized) . Absent: distended Additional comments: Urostomy noted to the RLQ with scant urine noted in the collection bag. Colostomy noted to the LLQ with small amount of liquid brown stool in the collection bag. - Extremities Exam Extremities exam: Present: normal inspection, pedal edema (Trace BLE). Absent: joint swelling, tenderness Additional comments: AV fistula noted to the LUE currently accessed for HD. - Neurological Exam Neurological exam: Present: alert, oriented X3, no focal deficits - Psychiatric Psychiatric exam: Present: normal affect, normal mood - Skin Skin exam: Present: dry, intact, normal color, warm - Additional findings Additional findings: Dressing to the right upper chest C/D/I. - VTE Documentation of Mechanical Device: Intermittent pneumatic compression device Consult Discharge Plan - Plan Referrals: Na Johansen CNP [Primary Care Provider] - 12/01/17 1:00 pm (Please follow up as schedule...) - Attending Attestation I examined this patient and my medical decision-making was reviewed with the Resident Physician. I agree with the documented findings, disposition and treatment plan as described except to the extent set forth below.
[2017-12-01] MEDS: Fluconazole 400 MG/200 ML 400 MG/200 ML BAG IVPB SCH (17:03)
--- NOTE | 2017-12-01 17:44 | Nephrology Progress Note ---
Date of Encounter: 12/01/17 Time of Encounter: 11:00 - Assessment and Plan (1) Anemia Current Visit: No Status: Chronic Hgb noted fairly at 8.4 after pRBCs transfuison on friday Continue aranesp weekly Qualifiers: Anemia type: unspecified type Qualified Code(s): D64.9 - Anemia, unspecified (2) ESRD (end stage renal disease) on dialysis Current Visit: No Status: Chronic Continue HD with UF goal of 2-3kg as tolerated Will plan to use 2k bath for elevated potassium of 5.6 Will also plan to use 2.5ca bath for low calcium in addition to vitamin D supplements started Subjective Principal diagnosis: hypoxic respiratiory failure 2/2 COPD exacerbation 2/2 PNA Interval history: Pt seen and examined on HD with conflicting complaints. Feels btter overall with improved breathing but at the same time reports still persistent chest pain "that has never gone away". She was resting comfortably with no signs of distress prior to this Objective - Vital Signs Vital signs: Vital Signs Temp Pulse Resp BP Pulse Ox 12/01/17 15:35 18 93 12/01/17 15:27 98.1 F 101 18 137/61 92 12/01/17 13:23 98.3 F 102 17 132/65 92 12/01/17 13:09 97.4 F L 20 137/65 12/01/17 13:00 130/63 12/01/17 12:45 154/53 12/01/17 12:30 138/52 12/01/17 12:15 125/64 12/01/17 12:00 136/56 12/01/17 11:46 140/50 12/01/17 11:30 140/69 12/01/17 11:00 150/66 12/01/17 10:45 167/73 12/01/17 10:30 161/69 12/01/17 10:15 157/72 12/01/17 10:00 97.6 F 24 161/79 12/01/17 08:25 98.1 F 98 17 168/81 94 12/01/17 07:47 18 94 12/01/17 03:58 18 95 12/01/17 03:24 97.5 F L 87 16 124/42 95 12/01/17 00:12 98.2 F 89 16 126/55 99 11/30/17 23:40 18 95 11/30/17 19:43 18 95 11/30/17 19:23 97.6 F 90 16 144/74 95 Intake and Output 12/01/17 12/01/17 12/01/17 07:59 15:59 23:59 Intake Total 480 / 480 Output Total 3500 / 3500 Balance -3020 / -3020 Intake: Oral 480 / 480 Output: Urine 0 / 0 Total Dialysis (HD) Output 3500 / 3500 Other: Meal Breakfast Percent of Meal Consumed 100% # Bowel Movements 2 Weight 58.7 kg Hemodialysis Net Fluid Removed 4100 (mL) Patient Weight 12/01/17 23:59 Weight 58.7 kg - General Appearance General appearance: Present: chronically ill (NAD) EENT: Present: ATNC Neck: Present: no JVD, supple Additional Comments: Improved areation bilat Cardiology: Present: no edema, normal S1, normal S2 Dialysis Vascular Access: Arteriovenous Fistula thrill: Yes bruit: Yes Gastrointestinal: Present: no tenderness, no guarding Integumentary: Present: warm and dry Neurologic: Present: no focal deficit Musculoskeletal: Present: no deformities Psychiatric: Present: mood/affect appropriate - Lab 12/01/17 03:40 12/01/17 03:40 Most recent lab results Calcium 6.4 mg/dL (8.6-10.3) L 12/01/17 03:40 Phosphorus 5.0 mg/dL (2.7-4.5) H 11/25/17 05:00 Magnesium 1.5 mg/dL (1.6-2.6) L 11/25/17 05:00 - VTE Documentation of Mechanical Device: Intermittent pneumatic compression device Consult Discharge Plan - Plan Referrals: Na Johansen, [employer] [Primary Care Provider] - 12/01/17 1:00 pm (Please follow up as schedule...)
--- NOTE | 2017-12-01 22:06 | Internal Med Progress Note ---
Date of Encounter: 12/01/17 Time of Encounter: 18:04 - Assessment and plan (1) Sepsis Current Visit: Yes Status: Acute Assessment and plan: Patient's white count did decrease to 3.3 from 5.6, but she was afebrile and nontachycardic overnight Infectious disease recommended continuing Fluconazole for 4 weeks, to finish . BAL from bronchoscopy on 11/28 whoed GNR, appreciate ID input in regards to possible treatment. Qualifiers: Sepsis type: sepsis due to unspecified organism Qualified Code(s): A41.9 - Sepsis, unspecified organism (2) Pneumonia Current Visit: Yes Status: Suspected Assessment and plan: CTA revealed septic emboli in bilateral lobes Continue on IV fluconazole for fungemia as above BAL from 11/28 resulted 12/01 with GNR, appreciate ID input on this Qualifiers: Pneumonia type: due to unspecified organism Laterality: right Lung location: lower lobe of lung Qualified Code(s): J18.1 - Lobar pneumonia, unspecified organism (3) Fungemia Current Visit: Yes Status: Acute Assessment and plan: Patient will continue fluconazole 400 mg IV on dialysis days per infectious disease recommendations She was evaluated by ophthalmology and ruled out endophthalmitis (4) COPD (chronic obstructive pulmonary disease) Current Visit: No Status: Chronic Assessment and plan: Contineu taper steroids, Duo nebs. Qualifiers: COPD type: emphysema Emphysema type: panlobular Qualified Code(s): J43.1 - Panlobular emphysema (5) Chest pain Current Visit: Yes Status: Acute Qualifiers: Chest pain type: unspecified Qualified Code(s): R07.9 - Chest pain, unspecified (6) Anemia in chronic kidney disease Current Visit: No Status: Chronic Assessment and plan: Continue to follow-up H&H. Qualifiers: Chronic kidney disease stage: on chronic dialysis Qualified Code(s): N18.6 - End stage renal disease; D63.1 - Anemia in chronic kidney disease; Z99.2 - Dependence on renal dialysis (7) ESRD (end stage renal disease) Current Visit: No Status: Chronic Assessment and plan: Patient underwent dialysis Friday keeping with her Friday schedule Management per nephrology Does not look fluid overloaded, and electrolytes are within normal limits (8) Elevated troponin Current Visit: Yes Status: Acute (9) Severe malnutrition Current Visit: No Status: Chronic Assessment and plan: Patient was on TPN on last admission and no longer desirous of artificial nutrition. She is able to swallow fluids and solids. Continue to encourage PO intake, dietary consult. (10) Colostomy care Current Visit: No Status: Chronic Assessment and plan: Patient's colostomy is pink and moist. Colostomy bag contains gas and no signs of infection noted. Continue with colostomy care. - Subjective Interval history: Patient complains of ear fullness today. Denies fevers/chills, n/v, dyspnea. CP is improved. - Constitutional Vitals: Temp Pulse Resp BP Pulse Ox 98.7 F 93 16 136/57 93 12/01/17 18:56 12/01/17 18:56 12/01/17 18:56 12/01/17 18:56 12/01/17 21:14 General appearance: Present: cachectic, mild distress, underweight, answers questions appropriately Exam: - Head Head exam: Present: atraumatic, normocephalic - Eye Eye exam: Present: PERRL, conjuntiva pink, sclera anicteric - Neck Neck exam general surgery: Present: supple, trachea midline. Absent: lymphadenopathy - Respiratory Respiratory exam: Present: wheezes. Absent: accessory muscle use, rales, rhonchi - Cardiovascular Cardiovascular exam: Present: RRR, +S1, +S2. Absent: diastolic murmur, gallop, rubs, systolic murmur - GI/Abdominal GI/Abdominal exam: Present: normal bowel sounds, soft, no peritoneal signs. Absent: distended, tenderness - Extremities Exam Extremities exam: Present: warm, radial pulses palpable and symmetrical. Absent : calf tenderness, cyanotic, pedal edema - Neurological Exam Neurological exam: Present: alert, no focal deficits. Absent: facial droop, speech deficit - Skin Skin exam: Present: dry, intact Internal Medicine: Result - Labs CBC & Chem 7: 12/01/17 03:40 12/01/17 03:40 Labs: Short CBC 12/01/17 Range/Units 03:40 WBC 4.2 L (4.3-11.1) K/mcL Hgb 8.4 L (11.5-15.4) g/dL Hct 26.0 L (35.3-44.9) % Plt Count 52 L (140-400) K/mcL BMP 12/01/17 03:40 Sodium 139 Potassium 5.6 H Chloride 103 Carbon Dioxide 23 BUN 54 H Creatinine 6.30 H Glucose 83 Calcium 6.4 L - ABG Interpretation ABG results: PT/INR, D-dimer PT 16.2 Seconds (9.4-12.1) H 11/14/17 10:30 - VTE Documentation of Mechanical Device: Intermittent pneumatic compression device Consult Discharge Plan - Plan Referrals: Na Johansen, [employer] [Primary Care Provider] - 12/01/17 1:00 pm (Please follow up as schedule...)
[2017-12-02] MEDS: *HR* OxyCODONE Immed Rel 5 MG TABLET PO PRN ×4 (01:07→20:33)
[2017-12-02] MEDS: Ipratropium/Albuterol Neb 3 ML IH SCH ×7 (02:21→23:39)
[2017-12-02] MEDS: Ondansetron 4 MG/2 ML VIAL IVP PRN ×3 (06:39→20:34)
[2017-12-02 06:57] LABS: Hematocrit 26.1 % (35.3-44.9); Hemoglobin 8.1 g/dL (11.5-15.4); Immature Platelets 5.1 % (1.1-6.1); Mean Corpuscular Hemoglobin 29.3 pg (28.0-33.3); Mean Corpuscular Volume 94.6 fL (83.0-100.0); Mean Platelet Volume 9.8 fL (9.4-12.4); Red Blood Count 2.76 M/mcL (3.82-4.97); Red Cell Distribution Width 16.7 % (11.5-14.5)
[2017-12-02 07:11] LABS: Calcium 6.8 mg/dL (8.6-10.3); Potassium 4.2 mEq/L (3.5-5.1)
[2017-12-02] MEDS: Calcium Acetate 667 MG CAPSULE PO SCH ×3 (08:10→17:02)
[2017-12-02] MEDS: predniSONE 20 MG TABLET PO SCH (08:10)
[2017-12-02] MEDS: Nicotine 21 MG PATCH.TD24 TD SCH (08:11)
[2017-12-02] MEDS: Fluticasone Propionate Nasal 50 MCG/SPRAY BOTTLE NS SCH (08:15)
[2017-12-02] MEDS: *HR* Acetylcysteine 20% 600 MG/3 ML ORAL SYRINGE PO SCH ×3 (08:18→22:25)
--- NOTE | 2017-12-02 10:09 | Infectious Disease Progress No ---
Date of Encounter: 12/02/17 Time of Encounter: 10:06 - Assessment and Plan (1) Sepsis Current Visit: Yes Status: Acute Severe sepsis on admission. The patient had two SIRS criteria with hypotension responsive to IV fluids. Likely secondary to fungemia and PNA. Improved. The patient has been afebrile. Hypotension has resolved. Tachycardia has resolved. Peripheral blood cultures drawn 11/14/17 were positive 2/2 for Kelsey lusitaniae. Additional peripheral fungal blood culture drawn 11/16/17 is positive as well. Peripheral blood cultures drawn 11/17/16 were negative. A-port blood cultures drawn 11/17/17 were positive. The patient has had no additional SIRS criteria to indicate a new source of infection. Repeat blood cultures x 2 sets drawn 11/27/17 are NGTD. Qualifiers: Sepsis type: sepsis due to unspecified organism Qualified Code(s): A41.9 - Sepsis, unspecified organism (2) Fungemia Current Visit: Yes Status: Acute Causative organism Kelsey lusitiniae. Source unclear, but the patient was recently on TPN given through her a-port. Her a-port was removed 11/18/17. Peripheral blood cultures drawn 11/14/17 were positive 2/2. Additional peripheral fungal blood culture drawn 11/16/17 is positive as well. No blood cultures were drawn from the patient's a-port before antifungals were started. Repeat blood cultures x 2 sets from the a-port are positive and x2 sets from a peripheral stick drawn 11/17/17 are negative. Additional blood cultures drawn 11/27/17 are NGTD x 2 sets. Continue fluconazole, 400mg IV daily on HD days only. Opthalmology evaluation noted and appreciated. No endopthalmitis. Repeat LFTs with AM labs. Okay to consult VAT for EPIV placement prior to discharge unless fluconazole can be given at the HD unit. Duration of treatment depends on the clinical picture. Continue until repeat CT scan obtained. Monitor CBC and LFTs while on antifungals. (3) Cavitary lesion of lung Current Visit: Yes Status: Acute CTA of the chest shows new when compared to previous examination (Oct 2017) multiple focal areas of consolidation within the periphery of the lungs, some with focal cavitation. Per radiology, given the rapid development, septic emboli are primarily considered. In addition, there are innumerable punctate centrilobular tree-in-bud ground-glass nodules that have an inflammatory/ infectious appearance, likely related related to infectious bronchiolitis, but could also be hematogenous as well. CT scan reviewed with Pulmonology team. Etiology unclear: fungemia vs. other. No CT scan obtained during this hospitalization to tell us if these lesions were there on admission or not. Pulmonology recommendations noted and appreciated. Status post bronchoscopy 11/28. Endoscopy report reviewed. Minimal secretions noted. No mucous plugs. BAL of the RML shows GNR, final ID and sensitivities pending. I called and spoke with micro and they tell me that it looks like E. cloacae, possible CRE, but they are re-running the specimen and will hopefully have the results tomorrow. Continue antifungals as above. Fungal serologies noted. Fungitell positive. BAL Aspergillus galactomannan positive, but serum negative. BAL pathology pending. Discussed with pulmonology. No clinical picture indicates invasive infection: no new worsening cough, shortness of breath is at baseline, afebrile, does not appear toxic. She has been on and off steroids during her hospitalization, but she is not chronicall immunosuppressed. Bronch really did not look impressive per pulmonology and the pulmonary team does not believe that the patient has invasive aspergillosis. Also reviewed [facility] specimen clinical interpretation website and Histoplasma may cross-react with the Aspergillus antigen assay, leading to false positive test result. At this point, we will not broaden antifungal coverage to Voriconazole. Consider repeating CT scan on Friday. As for the Enterobacter cloace, not sure if this is a true infection vs. colonization. Will continue to observe off antibiotics. Place the patient in droplet precautions until final ID back since this may be a CRE. (4) Pneumonia Current Visit: Yes Status: Suspected Location: Bilaterally. Causative organism unclear, but possible viral. RIP positive for HSV and Coronavirus. Previous sputum cultures positive for S. maltophilia, PSEA, and E. coli. CXR showed patchy airspace opacities bilaterally, more pronounced in the right lung base. Previously completed a 7 day course of Levaquin and 8 days of Zosyn. Review of the medical record shows that the patient has had multiple recurrences of PNA over the past six months. Pulmonology consulted. Status post bronchoscopy 11/28/17. Endoscopy report reviewed. Minimal secretions. RML BAL shows GNR. Final ID and sensitivities are pending. Spoke with lab. 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 Hoping to have final ID tomorrow. Patient remains stable without sepsis criteria. Await final ID and continue to observe off antibiotics. Qualifiers: Pneumonia type: due to unspecified organism Laterality: right Lung location: lower lobe of lung Qualified Code(s): J18.1 - Lobar pneumonia, unspecified organism (5) Bicytopenia Current Visit: No Status: Chronic Continues to have anemia and thrombocytopenia and has developed leukopenia over the weekend. Continue trend. Further workup and management per the primary team. (6) Chest pain Current Visit: Yes Status: Acute Appears musculoskeletal in origin. Likely secondary to PNA and chostochondritis. Troponin elevated likely secondary to demand ischemia from ESRD. Further workup and management per the primary team. Qualifiers: Chest pain type: unspecified Qualified Code(s): R07.9 - Chest pain, unspecified (7) Elevated troponin Current Visit: Yes Status: Acute Likely chronic secondary to CKD. EKG shows no acute changes. Further workup and management per the primary team. (8) Nausea and vomiting Current Visit: No Status: Chronic Likely secondary to short gut syndrome. Management per the primary team. Qualifiers: Vomiting type: unspecified Vomiting Intractability: non-intractable Qualified Code(s): R11.2 - Nausea with vomiting, unspecified (9) Abdominal pain Current Visit: No Status: Chronic Chronic. Further workup and management per the primary team. Qualifiers: Abdominal location: lower abdomen, unspecified Qualified Code(s): R10.30 - Lower abdominal pain, unspecified (10) Anemia in chronic kidney disease Current Visit: No Status: Chronic Likely multifactorial: poor nutrition + anemia of CKD. Management per the primary and nephrology teams. Qualifiers: Chronic kidney disease stage: on chronic dialysis Qualified Code(s): N18.6 - End stage renal disease; D63.1 - Anemia in chronic kidney disease; Z99.2 - Dependence on renal dialysis (11) COPD (chronic obstructive pulmonary disease) Current Visit: No Status: Chronic Management per the primary and pulmonology teams. Qualifiers: COPD type: emphysema Emphysema type: panlobular Qualified Code(s): J43.1 - Panlobular emphysema (12) ESRD (end stage renal disease) on dialysis Current Visit: No Status: Chronic Nephrology consulted and following. 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 Recently started on TPN, but the patient could not tolerate. Likely contributing to the patient's poor nutritional status. Management per the primary team. (14) Tobacco abuse Current Visit: No Status: Chronic - Subjective Interval history: Patient seen and examined. Patient sleeping upon my entrance into the room. Awakens easily. No acute events noted overnight. Reports pain in her entire chest, worse with deep cough or inspiration. She continues to report shortness of breath with moist nonproductive cough, but does not appear to be in any acute distress. She reports chronic nausea and vomiting with by mouth intake. She again states she had a rough night and doesn't feel well today. She reports liquid stool from her colostomy. She denies blood from her urostomy or colostomy. She denies oral thrush or new skin lesions. She denies fevers, chills , or rigors, but states she is always cold. Infect Dis PN-Objective Data - Labs CBC & Chem 7: 12/02/17 06:52 12/02/17 06:52 Labs: Laboratory Results - last 24 hr 11/28/17 12/02/17 12/02/17 13:00 06:52 06:52 WBC 4.7 RBC 2.76 L Hgb 8.1 L Hct 26.1 L MCV 94.6 MCH 29.3 MCHC 31.0 L RDW 16.7 H Plt Count 54 L MPV 9.8 Immature Plt Fraction 5.1 Sodium 140 Potassium 4.2 Chloride 102 Carbon Dioxide 30 H BUN 36 H Creatinine 4.65 H Est GFR ( Amer) 11 L Est GFR (Non-Af Amer) 9 L BUN/Creatinine Ratio 8 Glucose 88 Calculated Osmolality 298 Calcium 6.8 L BAL A. galactomannan Ag POSITIVE A Bron A.galacto Ag Ind 1.30 Cultures: Cultures 11/28/17 13:00 Gram Stain - Final Right Middle Lobe Lung Respiratory Culture - Preliminary Gram Negative Osmin 11/28/17 13:00 Acid Fast Stain - Final Right Middle Lobe Lung 11/27/17 09:38 Blood Culture - Preliminary Peripheral Venipuncture No growth. 11/27/17 08:37 Blood Culture - Preliminary Peripheral Venipuncture No growth. 11/16/17 05:13 Blood Fungal Culture - Final Peripheral Venipuncture No growth. 11/19/17 07:30 Blood Culture - Final Port System No growth. 11/19/17 07:35 Blood Culture - Final Port System No growth. 11/17/17 17:31 Blood Culture - Final Peripheral Venipuncture No growth. 11/17/17 17:31 Blood Culture - Final Peripheral Venipuncture No growth. 11/19/17 10:10 Catheter Tip Culture - Final Intravenous or Arterial Cath No growth. 11/17/17 18:09 Blood Culture - Final Port System Kelsey lusitaniae 11/16/17 05:05 Blood Fungal Culture - Final Peripheral Venipuncture Kelsey lusitaniae Serology 11/30/17 11/28/17 11/28/17 Range/Units 18:00 13:00 13:00 Fluid Source RML BAL Fluid Volume 25 mL Fluid Appearance Cloudy A (Clear) Fluid RBC 0.002 (No Ref Range) M/mcL Fld Tot Nucleated Cell 1663 (No Ref Range) TNC/mcL Fluid Seg Neutrophil % 18.0 % Fld Band Neutrophil % 0.0 % Fluid Lymphocytes % 34.0 % Fluid Monocytes % 1.0 % Fluid Eosinophils % 0.0 % Fluid Basophils % 0.0 % Fluid Other Cells % 47.0 % BAL A. galactomannan Ag POSITIVE A (Negative) Stool Occult Blood Negative (Negative) A. baumannii (PCR) (Not Detect) Chlamy pneumoniae PCR (Not Detect) Adenovirus (PCR) (Not Detect) Blastomyces Ab Comp Fx B. pertussis DNA (PCR) (Not Detect) B.parapertussis DNA PCR (Not Detect) Kelsey albicans (PCR) (Not Detect) C. glabrata (PCR) (Not Detect) C. krusei (PCR) (Not Detect) C. parapsilosis (PCR) (Not Detect) C. tropicalis (PCR) (Not Detect) Coronavirus OC43 (PCR) (Not Detect) Coronavirus HKU1 (PCR) (Not Detect) Coronavirus 229E (PCR) (Not Detect) Coronavirus NL63 (PCR) (Not Detect) Enterobacteriac sp PCR (Not Detect) E. cloacae complex PCR (Not Detect) Enterococcus sp PCR (Not Detect) E. coli (PCR) (Not Detect) H. influenzae (PCR) (Not Detect) Histoplasma Antigen U/mL Histoplasma Ag Interp (Negative) Human Metapneumovir PCR (Not Detect) Influenza A (H1) PCR (Not Detect) Influ A (H1N1/09) PCR (Not Detect) Influenza A (H3) PCR (Not Detect) Influenza A Untype (PCR) (Not Detect) Influenza Type B (PCR) (Not Detect) Klebsiella oxytoca PCR (Not Detect) Klebsiella pneumoniae (Not Detect) List. monocytogenes PCR (Not Detect) M.pneumoniae DNA (PCR) (Not Detect) N. meningitidis (PCR) (Not Detect) Parainfluenza 1 (PCR) (Not Detect) Parainfluenza 2 (PCR) (Not Detect) Parainfluenza 3 (PCR) (Not Detect) Parainfluenza 4 (PCR) (Not Detect) A. galactomannan Ag (Negative) A. galactomannan Ag Idx Proteus species (PCR) (Not Detect) RSV (PCR) (Not Detect) Entero/Rhino (PCR) (Not Detect) Serratia marcescens PCR (Not Detect) Staphylococcus sp PCR (Not Detect) Staph aureus (PCR) (Not Detect) mecA-Methicil Res Gene (Not Detect) Streptococcus sp PCR (Not Detect) Group A Strep DNA (Not Detect) Group B Strep (PCR) (Not Detect) Strep pneumoniae (PCR) (Not Detect) P. aeruginosa (PCR) (Not Detect) Yony/B-Vanco Res Genes (Not Detect) KPC (blaKPC) Detect PCR (Not Detect) Beta-(1,3)-D-Glucan pg/mL B-(1,3)-D-Glucan Intrp (Negative) 11/28/17 11/28/17 11/28/17 Range/Units 05:30 05:30 05:30 Fluid Source Fluid Volume mL Fluid Appearance (Clear) Fluid RBC (No Ref Range) M/mcL Fld Tot Nucleated Cell (No Ref Range) TNC/mcL Fluid Seg Neutrophil % % Fld Band Neutrophil % % Fluid Lymphocytes % % Fluid Monocytes % % Fluid Eosinophils % % Fluid Basophils % % Fluid Other Cells % % BAL A. galactomannan Ag (Negative) Stool Occult Blood (Negative) A. baumannii (PCR) (Not Detect) Chlamy pneumoniae PCR (Not Detect) Adenovirus (PCR) (Not Detect) Blastomyces Ab Comp Fx SEE BELOW B. pertussis DNA (PCR) (Not Detect) B.parapertussis DNA PCR (Not Detect) Kelsey albicans (PCR) (Not Detect) C. glabrata (PCR) (Not Detect) C. krusei (PCR) (Not Detect) C. parapsilosis (PCR) (Not Detect) C. tropicalis (PCR) (Not Detect) Coronavirus OC43 (PCR) (Not Detect) Coronavirus HKU1 (PCR) (Not Detect) Coronavirus 229E (PCR) (Not Detect) Coronavirus NL63 (PCR) (Not Detect) Enterobacteriac sp PCR (Not Detect) E. cloacae complex PCR (Not Detect) Enterococcus sp PCR (Not Detect) E. coli (PCR) (Not Detect) H. influenzae (PCR) (Not Detect) Histoplasma Antigen <2.0 U/mL Histoplasma Ag Interp NEGATIVE (Negative) Human Metapneumovir PCR (Not Detect) Influenza A (H1) PCR (Not Detect) Influ A (H1N1/09) PCR (Not Detect) Influenza A (H3) PCR (Not Detect) Influenza A Untype (PCR) (Not Detect) Influenza Type B (PCR) (Not Detect) Klebsiella oxytoca PCR (Not Detect) Klebsiella pneumoniae (Not Detect) List. monocytogenes PCR (Not Detect) M.pneumoniae DNA (PCR) (Not Detect) N. meningitidis (PCR) (Not Detect) Parainfluenza 1 (PCR) (Not Detect) Parainfluenza 2 (PCR) (Not Detect) Parainfluenza 3 (PCR) (Not Detect) Parainfluenza 4 (PCR) (Not Detect) A. galactomannan Ag NEGATIVE (Negative) A. galactomannan Ag Idx 0.06 Proteus species (PCR) (Not Detect) RSV (PCR) (Not Detect) Entero/Rhino (PCR) (Not Detect) Serratia marcescens PCR (Not Detect) Staphylococcus sp PCR (Not Detect) Staph aureus (PCR) (Not Detect) mecA-Methicil Res Gene (Not Detect) Streptococcus sp PCR (Not Detect) Group A Strep DNA (Not Detect) Group B Strep (PCR) (Not Detect) Strep pneumoniae (PCR) (Not Detect) P. aeruginosa (PCR) (Not Detect) Yony/B-Vanco Res Genes (Not Detect) KPC (blaKPC) Detect PCR (Not Detect) Beta-(1,3)-D-Glucan >500 pg/mL B-(1,3)-D-Glucan Intrp POSITIVE A (Negative) 11/18/17 11/17/17 11/17/17 Range/Units 08:41 18:09 17:31 Fluid Source Fluid Volume mL Fluid Appearance (Clear) Fluid RBC (No Ref Range) M/mcL Fld Tot Nucleated Cell (No Ref Range) TNC/mcL Fluid Seg Neutrophil % % Fld Band Neutrophil % % Fluid Lymphocytes % % Fluid Monocytes % % Fluid Eosinophils % % Fluid Basophils % % Fluid Other Cells % % BAL A. galactomannan Ag (Negative) Stool Occult Blood (Negative) A. baumannii (PCR) Not Detected (Not Detect) Chlamy pneumoniae PCR Not Detected (Not Detect) Adenovirus (PCR) Not Detected (Not Detect) Blastomyces Ab Comp Fx B. pertussis DNA (PCR) Not Detected (Not Detect) B.parapertussis DNA PCR Not Detected (Not Detect) Kelsey albicans (PCR) Not Detected (Not Detect) C. glabrata (PCR) Not Detected (Not Detect) C. krusei (PCR) Not Detected (Not Detect) C. parapsilosis (PCR) Not Detected (Not Detect) C. tropicalis (PCR) Not Detected (Not Detect) Coronavirus OC43 (PCR) Not Detected (Not Detect) Coronavirus HKU1 (PCR) DETECTED A (Not Detect) Coronavirus 229E (PCR) Not Detected (Not Detect) Coronavirus NL63 (PCR) Not Detected (Not Detect) Enterobacteriac sp PCR Not Detected (Not Detect) E. cloacae complex PCR Not Detected (Not Detect) Enterococcus sp PCR Not Detected (Not Detect) E. coli (PCR) Not Detected (Not Detect) H. influenzae (PCR) Not Detected (Not Detect) Histoplasma Antigen U/mL Histoplasma Ag Interp (Negative) Human Metapneumovir PCR Not Detected (Not Detect) Influenza A (H1) PCR Not Detected (Not Detect) Influ A (H1N1/09) PCR Not Detected (Not Detect) Influenza A (H3) PCR Not Detected (Not Detect) Influenza A Untype (PCR) Not Detected (Not Detect) Influenza Type B (PCR) Not Detected (Not Detect) Klebsiella oxytoca PCR Not Detected (Not Detect) Klebsiella pneumoniae Not Detected (Not Detect) List. monocytogenes PCR Not Detected (Not Detect) M.pneumoniae DNA (PCR) Not Detected (Not Detect) N. meningitidis (PCR) Not Detected (Not Detect) Parainfluenza 1 (PCR) Not Detected (Not Detect) Parainfluenza 2 (PCR) Not Detected (Not Detect) Parainfluenza 3 (PCR) Not Detected (Not Detect) Parainfluenza 4 (PCR) Not Detected (Not Detect) A. galactomannan Ag (Negative) A. galactomannan Ag Idx Proteus species (PCR) Not Detected (Not Detect) RSV (PCR) DETECTED A (Not Detect) Entero/Rhino (PCR) Not Detected (Not Detect) Serratia marcescens PCR Not Detected (Not Detect) Staphylococcus sp PCR Not Detected (Not Detect) Staph aureus (PCR) Not Detected (Not Detect) mecA-Methicil Res Gene N/A (Not Detect) Streptococcus sp PCR Not Detected (Not Detect) Group A Strep DNA Not Detected (Not Detect) Group B Strep (PCR) Not Detected (Not Detect) Strep pneumoniae (PCR) Not Detected (Not Detect) P. aeruginosa (PCR) Not Detected (Not Detect) Yony/B-Vanco Res Genes N/A (Not Detect) KPC (blaKPC) Detect PCR N/A (Not Detect) Beta-(1,3)-D-Glucan 470 pg/mL B-(1,3)-D-Glucan Intrp POSITIVE A (Negative) Exam - Constitutional Vitals: Temp Pulse Resp BP Pulse Ox 97.9 F 90 18 175/74 91 12/02/17 07:32 12/02/17 07:32 12/02/17 07:51 12/02/17 07:32 12/02/17 07:51 General appearance: cooperative, no acute distress, thin - Head Head exam: Present: atraumatic, normal inspection, normocephalic - Eye Eye exam: Present: EOMI, normal appearance, PERRL Pupils: Present: normal accommodation - ENT ENT exam: Present: mucous membranes dry - Neck Neck exam: Present: normal inspection - Respiratory Respiratory exam: Present: rhonchi (Throughout). Absent: CTAB, rales, respiratory distress, wheezes, tachypnea - Cardiovascular Cardiovascular exam: Present: irregular rhythm. Absent: tachycardia - GI/Abdominal GI/Abdominal exam: Present: normal bowel sounds, soft. Absent: distended, tenderness Additional comments: Colostomy noted to the LLQ with beefy red stoma and brown liquid stool noted in the collection bag. Urostomy noted to the RLQ with small amount of clear yellow urine noted in the collection bag. - Extremities Exam Extremities exam: Present: normal inspection. Absent: joint swelling, pedal edema, tenderness - Neurological Exam Neurological exam: Present: alert, oriented X3, no focal deficits - Psychiatric Psychiatric exam: Present: normal affect, normal mood - Skin Skin exam: Present: dry, intact, normal color, warm - VTE Documentation of Mechanical Device: Intermittent pneumatic compression device Consult Discharge Plan - Plan Referrals: Na Johansen CNP [Primary Care Provider] - 12/01/17 1:00 pm (Please follow up as schedule...) - Attending Attestation I examined this patient and my medical decision-making was reviewed with the Resident Physician. I agree with the documented findings, disposition and treatment plan as described except to the extent set forth below. I had a long discussion with pulmonary and reveiwed clnical interpertations from [facility] to see what we are going to do about the aspergillus ag in the BAL for now will continue to observe since histo can give you a positive antigen and since patient not clinically showing symptoms at this point and does not appear toxic if pt deteriorates, will start voriconazole in the mean time, repeat CT in a few days
--- NOTE | 2017-12-02 11:07 | Nephrology Progress Note ---
<Lolita Mcknight - Last Filed: 12/02/17 11:07> Date of Encounter: 12/02/17 Time of Encounter: 11:04 - Assessment and Plan (1) ESRD (end stage renal disease) on dialysis Status: Chronic Plan for HD tomorrow Continue renal diet Continue strict I/Os Avoid nephrotoxins if possible (2) Anemia in CKD (chronic kidney disease) Status: Chronic Hgb 8.1 stable Goal hgb 10-11 Transfuse per parameters Qualifiers: Chronic kidney disease stage: on chronic dialysis Qualified Code(s): N18.6 - End stage renal disease; D63.1 - Anemia in chronic kidney disease; D63.1 - Anemia in chronic kidney disease; Z99.2 - Dependence on renal dialysis; Z99.2 - Dependence on renal dialysis; Z99.2 - Dependence on renal dialysis; Z99.2 - Dependence on renal dialysis (3) Hypocalcemia Status: Acute Ca+ 6.8, up from 6.4 yesterday Ongoing chronic hypocalcemia Will continue higher Ca+ bath of 2.5 in dialysis Continue Ergocalciferol (4) Fungemia Status: Acute per primary/ID teams (5) Sepsis Status: Acute per primary/ID teams Qualifiers: Sepsis type: sepsis due to unspecified organism Qualified Code(s): A41.9 - Sepsis, unspecified organism Subjective Principal diagnosis: hypoxic respiratiory failure 2/2 COPD exacerbation 2/2 PNA Interval history: Patient seen and examined. Sleeping soundly during exam Objective - Vital Signs Vital signs: Vital Signs Temp Pulse Resp BP Pulse Ox 12/02/17 07:51 18 91 12/02/17 07:32 97.9 F 90 6 175/74 90 12/02/17 04:20 97.8 F 72 16 132/62 95 12/01/17 23:34 98.3 F 93 16 140/64 95 12/01/17 21:14 93 12/01/17 20:44 20 95 12/01/17 18:56 98.7 F 93 16 136/57 93 12/01/17 15:35 18 93 12/01/17 15:27 98.1 F 101 18 137/61 92 12/01/17 13:23 98.3 F 102 17 132/65 92 12/01/17 13:09 97.4 F L 20 137/65 12/01/17 13:00 130/63 12/01/17 12:45 154/53 12/01/17 12:30 138/52 12/01/17 12:15 125/64 12/01/17 12:00 136/56 12/01/17 11:46 140/50 12/01/17 11:30 140/69 Intake and Output 12/01/17 12/02/17 12/02/17 23:59 07:59 15:59 Intake Total 480 / 480 0 / 0 Balance 480 / 480 0 / 0 Intake: Oral 480 / 480 0 / 0 Other: Meal Dinner Breakfast Percent of Meal Consumed 100% 0% Weight 57.323 kg Patient Weight 12/02/17 23:59 Weight 57.323 kg - General Appearance General appearance: Present: cachectic, chronically ill, frail EENT: Present: ATNC Neck: Present: supple Respiratory: Present: clear Cardiology: Present: no edema, normal S1, normal S2 Gastrointestinal: Present: no tenderness, no guarding Integumentary: Present: warm and dry - Lab 12/02/17 06:52 12/02/17 06:52 Most recent lab results Calcium 6.8 mg/dL (8.6-10.3) L 12/02/17 06:52 Phosphorus 5.0 mg/dL (2.7-4.5) H 11/25/17 05:00 Magnesium 1.5 mg/dL (1.6-2.6) L 11/25/17 05:00 - VTE Documentation of Mechanical Device: Intermittent pneumatic compression device Consult Discharge Plan - Plan Additional Instructions: F/up with PCP in 1-2 weeks F/up for HD 3 times/week- MWF F/up with ID in 2 weeks Referrals: Na Johansen, CAUSE ANALYST [Primary Care Provider] - (Call at discharge due to lengthy stay Patient will go to [facility]) Prescriptions: Gabapentin [Neurontin] 100 mg PO TID #30 capsule LORazepam [Ativan] 0.5 mg PO BID PRN 10 Days #10 tablet PRN Reason: Anxiety OxyCODONE Immed Rel [Roxicodone 5 MG] 2.5 mg PO Q5H PRN 5 Days #10 tablet PRN Reason: Pain Sulfamethoxazole/Trimeth [Bactrim 800MG/160MG/10ML] 10 ml IV BID #7 vial Sulfamethoxazole/Trimeth [Bactrim 800MG/160MG/10ML] 10 ml IV DAILY #5 vial <Laila Gustafson - Last Filed: 12/30/17 17:32> Date of Encounter: 12/02/17 - Assessment and Plan (1) ESRD (end stage renal disease) on dialysis Status: Chronic (2) Anemia Status: Chronic Qualifiers: Anemia type: unspecified type Qualified Code(s): D64.9 - Anemia, unspecified (3) Pneumonia Status: Acute Qualifiers: Pneumonia type: due to unspecified organism Laterality: bilateral Lung location: lower lobe of lung Qualified Code(s): J18.9 - Pneumonia, unspecified organism Objective - Lab 12/15/17 04:05 12/15/17 04:05 Most recent lab results ABG pH 7.35 pH Units (7.32-7.45) 12/09/17 04:48 ABG pCO2 58 mmHg (35-45) H 12/09/17 04:48 ABG pO2 92 mmHg (85-104) 12/09/17 04:48 ABG HCO3 32 mEq/L (21-27) H 12/09/17 04:48 ABG O2 Saturation 96 % (95-98) 12/09/17 04:48 Calcium 7.2 mg/dL (8.6-10.3) L 12/15/17 04:05 Phosphorus 3.2 mg/dL (2.7-4.5) 12/11/17 04:00 Magnesium 2.0 mg/dL (1.6-2.6) 12/11/17 04:00 - Attending Attestation I examined this patient and my medical decision-making was reviewed with the Resident Physician/CAUSE ANALYST. I agree with the documented findings, disposition and treatment plan as described except to the extent set forth below. Pt seen and examined with no new complaints. Next HD planned tomorrow. Lytes stable except low calcium slightly improved with higher ca baths in HD and continue ergocalciferol/calcium supplements
[2017-12-02] MEDS: *HR* Promethazine 25 MG/ML VIAL IVP PRN ×2 (11:34→23:42)
[2017-12-02 13:09] LABS: Influenza A PCR Body Fluid DETECTED; Influenza B PCR Body Fluid NOT DETECTED
[2017-12-02 15:16] LABS: RSV PCR Body Fluid DETECTED; RVP Body Fluid Source NOT PROVIDED
--- NOTE | 2017-12-02 21:27 | Internal Med Progress Note ---
Date of Encounter: 12/02/17 Time of Encounter: 15:26 - Assessment and plan (1) Sepsis Current Visit: Yes Status: Acute Assessment and plan: Patient's white count did decrease to 3.3 from 5.6, but she was afebrile and nontachycardic overnight Infectious disease recommended continuing Fluconazole for 4 weeks, around 12/03 depending on patient clinical status. BAL from bronchoscopy on 11/28 Showed GNR, will monitor closely Qualifiers: Sepsis type: sepsis due to unspecified organism Qualified Code(s): A41.9 - Sepsis, unspecified organism (2) Pneumonia Current Visit: Yes Status: Suspected Assessment and plan: CTA revealed septic emboli in bilateral lobes Continue on IV fluconazole for fungemia as above BAL from 11/28 resulted 12/01 with GNR, appreciate ID input on this Qualifiers: Pneumonia type: due to unspecified organism Laterality: right Lung location: lower lobe of lung Qualified Code(s): J18.1 - Lobar pneumonia, unspecified organism (3) Fungemia Current Visit: Yes Status: Acute Assessment and plan: Patient will continue fluconazole 400 mg IV on dialysis days per infectious disease recommendations She was evaluated by ophthalmology and ruled out endophthalmitis (4) COPD (chronic obstructive pulmonary disease) Current Visit: No Status: Chronic Assessment and plan: Contineu taper steroids, Duo nebs. Qualifiers: COPD type: emphysema Emphysema type: panlobular Qualified Code(s): J43.1 - Panlobular emphysema (5) Chest pain Current Visit: Yes Status: Acute Assessment and plan: Present on admission EKG did not show signs of ischemia. Initial troponin 0.05 subsequent trops 0.07, 0.04 - likely baseline because of ESRD Echocardiogram: LV EF 60%, moderate LV diastolic dysfunction Seen by Cardiology 06/2017 for similar complaints; negative findings. Likely pleuritic and/or chostochondritis from infection and cough. Aydlett and Percocet (Q6H) were ineffective. On Roxicodone prn This pain is likely musculoskelatal given it is reproducible. Likely pleuritis as well from infection. She has had a cardiac workup which was negative. Patient is high risk with multiple co-morbidities for any cardiac interventions and so any sort of cardiac testing after this workup would not be warranted. Qualifiers: Chest pain type: unspecified Qualified Code(s): R07.9 - Chest pain, unspecified (6) Anemia in chronic kidney disease Current Visit: No Status: Chronic Assessment and plan: Continue to follow-up H&H. Qualifiers: Chronic kidney disease stage: on chronic dialysis Qualified Code(s): N18.6 - End stage renal disease; D63.1 - Anemia in chronic kidney disease; Z99.2 - Dependence on renal dialysis (7) ESRD (end stage renal disease) Current Visit: No Status: Chronic Assessment and plan: Patient underwent dialysis Friday keeping with her Friday schedule Management per nephrology Does not look fluid overloaded, and electrolytes are within normal limits (8) Elevated troponin Current Visit: Yes Status: Acute Assessment and plan: Elevated troponin likely secondary demand ischemia in ESRD patient Repeat trop on 11/27 at 0.11, only slightly higher than admission (9) Severe malnutrition Current Visit: No Status: Chronic Assessment and plan: Patient was on TPN on last admission and no longer desirous of artificial nutrition. She is able to swallow fluids and solids. Continue to encourage PO intake, dietary consult. (10) Colostomy care Current Visit: No Status: Chronic Assessment and plan: Patient's colostomy is pink and moist. Colostomy bag contains gas and no signs of infection noted. Continue with colostomy care. - Subjective Interval history: No complaints, Denies fevers/chills, n/v, dyspnea. - Constitutional Vitals: Temp Pulse Resp BP Pulse Ox 97.6 F 84 16 150/57 93 12/02/17 19:46 12/02/17 19:46 12/02/17 19:46 12/02/17 19:46 12/02/17 19:46 General appearance: Present: cachectic, mild distress, underweight, answers questions appropriately Exam: - Head Head exam: Present: atraumatic, normocephalic - Eye Eye exam: Present: PERRL, conjuntiva pink, sclera anicteric - Neck Neck exam general surgery: Present: supple, trachea midline. Absent: lymphadenopathy - Respiratory Respiratory exam: Present: wheezes. Absent: accessory muscle use, rales, rhonchi - Cardiovascular Cardiovascular exam: Present: RRR, +S1, +S2. Absent: diastolic murmur, gallop, rubs, systolic murmur - GI/Abdominal GI/Abdominal exam: Present: normal bowel sounds, soft, no peritoneal signs. Absent: distended, tenderness - Extremities Exam Extremities exam: Present: warm, radial pulses palpable and symmetrical. Absent : calf tenderness, cyanotic, pedal edema - Neurological Exam Neurological exam: Present: alert, no focal deficits. Absent: facial droop, speech deficit - Skin Skin exam: Present: dry, intact Internal Medicine: Result - Labs CBC & Chem 7: 12/02/17 06:52 12/02/17 06:52 Labs: Short CBC 12/02/17 Range/Units 06:52 WBC 4.7 (4.3-11.1) K/mcL Hgb 8.1 L (11.5-15.4) g/dL Hct 26.1 L (35.3-44.9) % Plt Count 54 L (140-400) K/mcL BMP 12/02/17 06:52 Sodium 140 Potassium 4.2 Chloride 102 Carbon Dioxide 30 H BUN 36 H Creatinine 4.65 H Glucose 88 Calcium 6.8 L - ABG Interpretation ABG results: PT/INR, D-dimer PT 16.2 Seconds (9.4-12.1) H 11/14/17 10:30 - VTE Documentation of Mechanical Device: Intermittent pneumatic compression device Consult Discharge Plan - Plan Referrals: Na Johansen, TYLER [Primary Care Provider] - 12/01/17 1:00 pm (Please follow up as schedule...)
[2017-12-03] MEDS: Ondansetron 4 MG/2 ML VIAL IVP PRN ×2 (02:42→15:12)
[2017-12-03] MEDS: *HR* OxyCODONE Immed Rel 5 MG TABLET PO PRN ×4 (02:42→18:51)
[2017-12-03] MEDS: Ipratropium/Albuterol Neb 3 ML IH SCH ×6 (04:04→23:53)
[2017-12-03 04:51] LABS: Mean Corpuscular Volume 94.7 fL (83.0-100.0); Red Cell Distribution Width 16.4 % (11.5-14.5)
[2017-12-03 04:53] LABS: Hemoglobin 7.7 g/dL (11.5-15.4); Immature Platelets 4.9 % (1.1-6.1); Mean Corpuscular HGB Conc 30.8 g/dL (31.6-35.5); Mean Corpuscular Hemoglobin 29.2 pg (28.0-33.3); Mean Platelet Volume 11.8 fL (9.4-12.4); Red Blood Count 2.64 M/mcL (3.82-4.97)
[2017-12-03 05:15] LABS: Calcium 6.8 mg/dL (8.6-10.3); Potassium 4.7 mEq/L (3.5-5.1)
[2017-12-03] MEDS ORDERED: 0.9 % Sodium Chloride 250 ML IVC PRN (07:39)
[2017-12-03] MEDS ORDERED: 0.9 % Sodium Chloride 1,000 ML PRIME SCH (07:45)
[2017-12-03] MEDS: predniSONE 20 MG TABLET PO SCH (08:24)
[2017-12-03] MEDS: Nicotine 21 MG PATCH.TD24 TD SCH (08:24)
[2017-12-03] MEDS: Calcium Acetate 667 MG CAPSULE PO SCH ×3 (08:24→18:49)
[2017-12-03] MEDS: *HR* Acetylcysteine 20% 600 MG/3 ML ORAL SYRINGE PO SCH ×2 (08:26→22:39)
[2017-12-03] MEDS: Fluticasone Propionate Nasal 50 MCG/SPRAY BOTTLE NS SCH (08:27)
[2017-12-03] MEDS: *HR* Promethazine 25 MG/ML VIAL IVP PRN (10:06)
[2017-12-03] MEDS ORDERED: 0.9 % Sodium Chloride 2,000 ML ONE (13:00)
--- NOTE | 2017-12-03 13:59 | Infectious Disease Progress No ---
Date of Encounter: 12/03/17 Time of Encounter: 13:56 - Assessment and Plan (1) Sepsis Current Visit: Yes Status: Acute Severe sepsis on admission. The patient had two SIRS criteria with hypotension responsive to IV fluids. Likely secondary to fungemia and PNA. Improved. The patient has been afebrile. Hypotension has resolved. Tachycardia has resolved. Peripheral blood cultures drawn 11/14/17 were positive 2/2 for Kelsey lusitaniae. Additional peripheral fungal blood culture drawn 11/16/17 is positive as well. Peripheral blood cultures drawn 11/17/16 were negative. A-port blood cultures drawn 11/17/17 were positive. The patient has had no additional SIRS criteria to indicate a new source of infection. Repeat blood cultures x 2 sets drawn 11/27/17 are negative. Qualifiers: Sepsis type: sepsis due to unspecified organism Qualified Code(s): A41.9 - Sepsis, unspecified organism (2) Fungemia Current Visit: Yes Status: Acute Causative organism Kelsey lusitiniae. Source unclear, but the patient was recently on TPN given through her a-port. Her a-port was removed 11/18/17. Peripheral blood cultures drawn 11/14/17 were positive 2/2. Additional peripheral fungal blood culture drawn 11/16/17 is positive as well. No blood cultures were drawn from the patient's a-port before antifungals were started. Repeat blood cultures x 2 sets from the a-port are positive and x2 sets from a peripheral stick drawn 11/17/17 are negative. Additional blood cultures drawn 11/27/17 are NGTD x 2 sets. Continue fluconazole, 400mg IV daily on HD days only. Opthalmology evaluation noted and appreciated. No endopthalmitis. Repeat LFTs with AM labs. Duration of treatment depends on the clinical picture. Continue until repeat CT scan obtained on Friday. Monitor CBC and LFTs while on antifungals. (3) Cavitary lesion of lung Current Visit: Yes Status: Acute CTA of the chest shows new when compared to previous examination (Oct 2017) multiple focal areas of consolidation within the periphery of the lungs, some with focal cavitation. Per radiology, given the rapid development, septic emboli are primarily considered. In addition, there are innumerable punctate centrilobular tree-in-bud ground-glass nodules that have an inflammatory/ infectious appearance, likely related related to infectious bronchiolitis, but could also be hematogenous as well. CT scan reviewed with Pulmonology team. Etiology unclear: fungemia vs. other. No CT scan obtained during this hospitalization to tell us if these lesions were there on admission or not. Pulmonology recommendations noted and appreciated. Status post bronchoscopy 11/28. Endoscopy report reviewed. Minimal secretions noted. No mucous plugs. BAL of the RML grew MDRO E. cloacae. The specimen has been sent out for MHT. Patient remains stable off antibiotics. Continue antifungals as above. Fungal serologies noted. Fungitell positive. BAL Aspergillus galactomannan positive, but serum negative. BAL pathology pending. Discussed with pulmonology. No clinical picture indicates invasive infection: no new worsening cough, shortness of breath is at baseline, afebrile, does not appear toxic. She has been on and off steroids during her hospitalization, but she is not chronicall immunosuppressed. Bronch really did not look impressive per pulmonology and the pulmonary team does not believe that the patient has invasive aspergillosis. Also reviewed [facility] specimen clinical interpretation website and Histoplasma may cross-react with the Aspergillus antigen assay, leading to false positive test result. At this point, we will not broaden antifungal coverage to Voriconazole. Consider repeating CT scan on Friday. As for the Enterobacter cloace, not sure if this is a true infection vs. colonization. Will continue to observe off antibiotics. Continue droplet precautions. (4) Pneumonia Current Visit: Yes Status: Suspected Location: Bilaterally. Causative organism unclear, but possible viral. RIP positive for HSV and Coronavirus. Previous sputum cultures positive for S. maltophilia, PSEA, and E. coli. CXR showed patchy airspace opacities bilaterally, more pronounced in the right lung base. Previously completed a 7 day course of Levaquin and 8 days of Zosyn. Review of the medical record shows that the patient has had multiple recurrences of PNA over the past six months. Pulmonology consulted. Status post bronchoscopy 11/28/17. Endoscopy report reviewed. Minimal secretions. RML BAL shows MDRO E. cloacae. Patient stable off antibiotics. Continue to observe off antibiotics. Yeast species noted on BAL. Final ID pending. Continue fluconazole as above. Qualifiers: Pneumonia type: due to unspecified organism Laterality: right Lung location: lower lobe of lung Qualified Code(s): J18.1 - Lobar pneumonia, unspecified organism (5) Bicytopenia Current Visit: No Status: Chronic Continues to have anemia and thrombocytopenia. Leukopenia has resolved. Continue trend. Further workup and management per the primary team. (6) Chest pain Current Visit: Yes Status: Acute Appears musculoskeletal in origin. Likely secondary to PNA and chostochondritis. Troponin elevated likely secondary to demand ischemia from ESRD. Further workup and management per the primary team. Qualifiers: Chest pain type: unspecified Qualified Code(s): R07.9 - Chest pain, unspecified (7) Elevated troponin Current Visit: Yes Status: Acute Likely chronic secondary to CKD. EKG shows no acute changes. Further workup and management per the primary team. (8) Nausea and vomiting Current Visit: No Status: Chronic Likely secondary to short gut syndrome. Management per the primary team. Qualifiers: Vomiting type: unspecified Vomiting Intractability: non-intractable Qualified Code(s): R11.2 - Nausea with vomiting, unspecified (9) Abdominal pain Current Visit: No Status: Chronic Chronic. Further workup and management per the primary team. Qualifiers: Abdominal location: lower abdomen, unspecified Qualified Code(s): R10.30 - Lower abdominal pain, unspecified (10) Anemia in chronic kidney disease Current Visit: No Status: Chronic Likely multifactorial: poor nutrition + anemia of CKD. Management per the primary and nephrology teams. Qualifiers: Chronic kidney disease stage: on chronic dialysis Qualified Code(s): N18.6 - End stage renal disease; D63.1 - Anemia in chronic kidney disease; Z99.2 - Dependence on renal dialysis (11) COPD (chronic obstructive pulmonary disease) Current Visit: No Status: Chronic Management per the primary and pulmonology teams. Qualifiers: COPD type: emphysema Emphysema type: panlobular Qualified Code(s): J43.1 - Panlobular emphysema (12) ESRD (end stage renal disease) on dialysis Current Visit: No Status: Chronic Nephrology consulted and following. 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 Recently started on TPN, but the patient could not tolerate. Likely contributing to the patient's poor nutritional status. Management per the primary team. (14) Tobacco abuse Current Visit: No Status: Chronic - Subjective Interval history: Patient seen and examined. No acute events noted overnight. Reports pain in her entire chest, worse with deep cough or inspiration. She continues to report shortness of breath with moist nonproductive cough, but does not appear to be in any acute distress. She reports chronic nausea and vomiting with by mouth intake. She again states she had a rough night and doesn't feel well today. She reports liquid stool from her colostomy. She denies blood from her urostomy or colostomy. She denies oral thrush or new skin lesions. She denies fevers, chills , or rigors, but states she is always cold. Infect Dis PN-Objective Data - Labs CBC & Chem 7: 12/03/17 04:15 12/03/17 04:15 Labs: Laboratory Results - last 24 hr 11/28/17 12/03/17 12/03/17 13:00 04:15 04:15 WBC 4.3 RBC 2.64 L Hgb 7.7 L Hct 25.0 L MCV 94.7 MCH 29.2 MCHC 30.8 L RDW 16.4 H Plt Count 45 L MPV 11.8 Immature Plt Fraction 4.9 Sodium 141 Potassium 4.7 Chloride 101 Carbon Dioxide 31 H BUN 44 H Creatinine 5.74 H Est GFR ( Amer) 9 L Est GFR (Non-Af Amer) 7 L BUN/Creatinine Ratio 8 Glucose 98 Calculated Osmolality 303 H Calcium 6.8 L Fluid Source NOT PROVIDED Influenza Type A (PCR) DETECTED A Influenza Type B (PCR) NOT DETECTED RSV (PCR) DETECTED A Cultures: Cultures 11/28/17 13:00 Gram Stain - Final Right Middle Lobe Lung Respiratory Culture - Preliminary Enterobacter cloacae MDRO 11/27/17 12:10 Fungal Culture - Final Left Arm No growth. 11/28/17 13:00 Acid Fast Stain - Final Right Middle Lobe Lung 11/28/17 13:00 Fungal Culture - Preliminary Right Middle Lobe Lung Yeast Species 11/27/17 09:38 Blood Culture - Preliminary Peripheral Venipuncture No growth. 11/27/17 08:37 Blood Culture - Preliminary Peripheral Venipuncture No growth. 11/16/17 05:13 Blood Fungal Culture - Final Peripheral Venipuncture No growth. 11/19/17 07:30 Blood Culture - Final Port System No growth. 11/19/17 07:35 Blood Culture - Final Port System No growth. 11/17/17 17:31 Blood Culture - Final Peripheral Venipuncture No growth. 11/17/17 17:31 Blood Culture - Final Peripheral Venipuncture No growth. 11/19/17 10:10 Catheter Tip Culture - Final Intravenous or Arterial Cath No growth. 11/17/17 18:09 Blood Culture - Final Port System Kelsey lusitaniae 11/16/17 05:05 Blood Fungal Culture - Final Peripheral Venipuncture Kelsey lusitaniae Serology 11/30/17 11/28/17 11/28/17 Range/Units 18:00 13:00 13:00 Fluid Source RML BAL Fluid Volume 25 mL Fluid Appearance Cloudy A (Clear) Fluid RBC 0.002 (No Ref Range) M/mcL Fld Tot Nucleated Cell 1663 (No Ref Range) TNC/mcL Fluid Seg Neutrophil % 18.0 % Fld Band Neutrophil % 0.0 % Fluid Lymphocytes % 34.0 % Fluid Monocytes % 1.0 % Fluid Eosinophils % 0.0 % Fluid Basophils % 0.0 % Fluid Other Cells % 47.0 % BAL A. galactomannan Ag POSITIVE A (Negative) Stool Occult Blood Negative (Negative) A. baumannii (PCR) (Not Detect) Chlamy pneumoniae PCR (Not Detect) Adenovirus (PCR) (Not Detect) Blastomyces Ab Comp Fx B. pertussis DNA (PCR) (Not Detect) B.parapertussis DNA PCR (Not Detect) Kelsey albicans (PCR) (Not Detect) C. glabrata (PCR) (Not Detect) C. krusei (PCR) (Not Detect) C. parapsilosis (PCR) (Not Detect) C. tropicalis (PCR) (Not Detect) Coronavirus OC43 (PCR) (Not Detect) Coronavirus HKU1 (PCR) (Not Detect) Coronavirus 229E (PCR) (Not Detect) Coronavirus NL63 (PCR) (Not Detect) Enterobacteriac sp PCR (Not Detect) E. cloacae complex PCR (Not Detect) Enterococcus sp PCR (Not Detect) E. coli (PCR) (Not Detect) H. influenzae (PCR) (Not Detect) Histoplasma Antigen U/mL Histoplasma Ag Interp (Negative) Human Metapneumovir PCR (Not Detect) Influenza A (H1) PCR (Not Detect) Influ A (H1N1/09) PCR (Not Detect) Influenza A (H3) PCR (Not Detect) Influenza Type A (PCR) Influenza A Untype (PCR) (Not Detect) Influenza Type B (PCR) (Not Detect) Klebsiella oxytoca PCR (Not Detect) Klebsiella pneumoniae (Not Detect) List. monocytogenes PCR (Not Detect) M.pneumoniae DNA (PCR) (Not Detect) N. meningitidis (PCR) (Not Detect) Parainfluenza 1 (PCR) (Not Detect) Parainfluenza 2 (PCR) (Not Detect) Parainfluenza 3 (PCR) (Not Detect) Parainfluenza 4 (PCR) (Not Detect) A. galactomannan Ag (Negative) A. galactomannan Ag Idx Proteus species (PCR) (Not Detect) RSV (PCR) (Not Detect) Entero/Rhino (PCR) (Not Detect) Serratia marcescens PCR (Not Detect) Staphylococcus sp PCR (Not Detect) Staph aureus (PCR) (Not Detect) mecA-Methicil Res Gene (Not Detect) Streptococcus sp PCR (Not Detect) Group A Strep DNA (Not Detect) Group B Strep (PCR) (Not Detect) Strep pneumoniae (PCR) (Not Detect) P. aeruginosa (PCR) (Not Detect) Yony/B-Vanco Res Genes (Not Detect) KPC (blaKPC) Detect PCR (Not Detect) Beta-(1,3)-D-Glucan pg/mL B-(1,3)-D-Glucan Intrp (Negative) 11/28/17 11/28/17 11/28/17 Range/Units 13:00 05:30 05:30 Fluid Source NOT PROVIDED Fluid Volume mL Fluid Appearance (Clear) Fluid RBC (No Ref Range) M/mcL Fld Tot Nucleated Cell (No Ref Range) TNC/mcL Fluid Seg Neutrophil % % Fld Band Neutrophil % % Fluid Lymphocytes % % Fluid Monocytes % % Fluid Eosinophils % % Fluid Basophils % % Fluid Other Cells % % BAL A. galactomannan Ag (Negative) Stool Occult Blood (Negative) A. baumannii (PCR) (Not Detect) Chlamy pneumoniae PCR (Not Detect) Adenovirus (PCR) (Not Detect) Blastomyces Ab Comp Fx B. pertussis DNA (PCR) (Not Detect) B.parapertussis DNA PCR (Not Detect) Kelsey albicans (PCR) (Not Detect) C. glabrata (PCR) (Not Detect) C. krusei (PCR) (Not Detect) C. parapsilosis (PCR) (Not Detect) C. tropicalis (PCR) (Not Detect) Coronavirus OC43 (PCR) (Not Detect) Coronavirus HKU1 (PCR) (Not Detect) Coronavirus 229E (PCR) (Not Detect) Coronavirus NL63 (PCR) (Not Detect) Enterobacteriac sp PCR (Not Detect) E. cloacae complex PCR (Not Detect) Enterococcus sp PCR (Not Detect) E. coli (PCR) (Not Detect) H. influenzae (PCR) (Not Detect) Histoplasma Antigen U/mL Histoplasma Ag Interp (Negative) Human Metapneumovir PCR (Not Detect) Influenza A (H1) PCR (Not Detect) Influ A (H1N1/09) PCR (Not Detect) Influenza A (H3) PCR (Not Detect) Influenza Type A (PCR) DETECTED A Influenza A Untype (PCR) (Not Detect) Influenza Type B (PCR) NOT DETECTED (Not Detect) Klebsiella oxytoca PCR (Not Detect) Klebsiella pneumoniae (Not Detect) List. monocytogenes PCR (Not Detect) M.pneumoniae DNA (PCR) (Not Detect) N. meningitidis (PCR) (Not Detect) Parainfluenza 1 (PCR) (Not Detect) Parainfluenza 2 (PCR) (Not Detect) Parainfluenza 3 (PCR) (Not Detect) Parainfluenza 4 (PCR) (Not Detect) A. galactomannan Ag NEGATIVE (Negative) A. galactomannan Ag Idx 0.06 Proteus species (PCR) (Not Detect) RSV (PCR) DETECTED A (Not Detect) Entero/Rhino (PCR) (Not Detect) Serratia marcescens PCR (Not Detect) Staphylococcus sp PCR (Not Detect) Staph aureus (PCR) (Not Detect) mecA-Methicil Res Gene (Not Detect) Streptococcus sp PCR (Not Detect) Group A Strep DNA (Not Detect) Group B Strep (PCR) (Not Detect) Strep pneumoniae (PCR) (Not Detect) P. aeruginosa (PCR) (Not Detect) Yony/B-Vanco Res Genes (Not Detect) KPC (blaKPC) Detect PCR (Not Detect) Beta-(1,3)-D-Glucan >500 pg/mL B-(1,3)-D-Glucan Intrp POSITIVE A (Negative) 11/28/17 11/18/17 11/17/17 Range/Units 05:30 08:41 18:09 Fluid Source Fluid Volume mL Fluid Appearance (Clear) Fluid RBC (No Ref Range) M/mcL Fld Tot Nucleated Cell (No Ref Range) TNC/mcL Fluid Seg Neutrophil % % Fld Band Neutrophil % % Fluid Lymphocytes % % Fluid Monocytes % % Fluid Eosinophils % % Fluid Basophils % % Fluid Other Cells % % BAL A. galactomannan Ag (Negative) Stool Occult Blood (Negative) A. baumannii (PCR) Not Detected (Not Detect) Chlamy pneumoniae PCR Not Detected (Not Detect) Adenovirus (PCR) Not Detected (Not Detect) Blastomyces Ab Comp Fx SEE BELOW B. pertussis DNA (PCR) Not Detected (Not Detect) B.parapertussis DNA PCR Not Detected (Not Detect) Kelsey albicans (PCR) Not Detected (Not Detect) C. glabrata (PCR) Not Detected (Not Detect) C. krusei (PCR) Not Detected (Not Detect) C. parapsilosis (PCR) Not Detected (Not Detect) C. tropicalis (PCR) Not Detected (Not Detect) Coronavirus OC43 (PCR) Not Detected (Not Detect) Coronavirus HKU1 (PCR) DETECTED A (Not Detect) Coronavirus 229E (PCR) Not Detected (Not Detect) Coronavirus NL63 (PCR) Not Detected (Not Detect) Enterobacteriac sp PCR Not Detected (Not Detect) E. cloacae complex PCR Not Detected (Not Detect) Enterococcus sp PCR Not Detected (Not Detect) E. coli (PCR) Not Detected (Not Detect) H. influenzae (PCR) Not Detected (Not Detect) Histoplasma Antigen <2.0 U/mL Histoplasma Ag Interp NEGATIVE (Negative) Human Metapneumovir PCR Not Detected (Not Detect) Influenza A (H1) PCR Not Detected (Not Detect) Influ A (H1N1/09) PCR Not Detected (Not Detect) Influenza A (H3) PCR Not Detected (Not Detect) Influenza Type A (PCR) Influenza A Untype (PCR) Not Detected (Not Detect) Influenza Type B (PCR) Not Detected (Not Detect) Klebsiella oxytoca PCR Not Detected (Not Detect) Klebsiella pneumoniae Not Detected (Not Detect) List. monocytogenes PCR Not Detected (Not Detect) M.pneumoniae DNA (PCR) Not Detected (Not Detect) N. meningitidis (PCR) Not Detected (Not Detect) Parainfluenza 1 (PCR) Not Detected (Not Detect) Parainfluenza 2 (PCR) Not Detected (Not Detect) Parainfluenza 3 (PCR) Not Detected (Not Detect) Parainfluenza 4 (PCR) Not Detected (Not Detect) A. galactomannan Ag (Negative) A. galactomannan Ag Idx Proteus species (PCR) Not Detected (Not Detect) RSV (PCR) DETECTED A (Not Detect) Entero/Rhino (PCR) Not Detected (Not Detect) Serratia marcescens PCR Not Detected (Not Detect) Staphylococcus sp PCR Not Detected (Not Detect) Staph aureus (PCR) Not Detected (Not Detect) mecA-Methicil Res Gene N/A (Not Detect) Streptococcus sp PCR Not Detected (Not Detect) Group A Strep DNA Not Detected (Not Detect) Group B Strep (PCR) Not Detected (Not Detect) Strep pneumoniae (PCR) Not Detected (Not Detect) P. aeruginosa (PCR) Not Detected (Not Detect) Yony/B-Vanco Res Genes N/A (Not Detect) KPC (blaKPC) Detect PCR N/A (Not Detect) Beta-(1,3)-D-Glucan pg/mL B-(1,3)-D-Glucan Intrp (Negative) 11/17/17 Range/Units 17:31 Fluid Source Fluid Volume mL Fluid Appearance (Clear) Fluid RBC (No Ref Range) M/mcL Fld Tot Nucleated Cell (No Ref Range) TNC/mcL Fluid Seg Neutrophil % % Fld Band Neutrophil % % Fluid Lymphocytes % % Fluid Monocytes % % Fluid Eosinophils % % Fluid Basophils % % Fluid Other Cells % % BAL A. galactomannan Ag (Negative) Stool Occult Blood (Negative) A. baumannii (PCR) (Not Detect) Chlamy pneumoniae PCR (Not Detect) Adenovirus (PCR) (Not Detect) Blastomyces Ab Comp Fx B. pertussis DNA (PCR) (Not Detect) B.parapertussis DNA PCR (Not Detect) Kelsey albicans (PCR) (Not Detect) C. glabrata (PCR) (Not Detect) C. krusei (PCR) (Not Detect) C. parapsilosis (PCR) (Not Detect) C. tropicalis (PCR) (Not Detect) Coronavirus OC43 (PCR) (Not Detect) Coronavirus HKU1 (PCR) (Not Detect) Coronavirus 229E (PCR) (Not Detect) Coronavirus NL63 (PCR) (Not Detect) Enterobacteriac sp PCR (Not Detect) E. cloacae complex PCR (Not Detect) Enterococcus sp PCR (Not Detect) E. coli (PCR) (Not Detect) H. influenzae (PCR) (Not Detect) Histoplasma Antigen U/mL Histoplasma Ag Interp (Negative) Human Metapneumovir PCR (Not Detect) Influenza A (H1) PCR (Not Detect) Influ A (H1N1/09) PCR (Not Detect) Influenza A (H3) PCR (Not Detect) Influenza Type A (PCR) Influenza A Untype (PCR) (Not Detect) Influenza Type B (PCR) (Not Detect) Klebsiella oxytoca PCR (Not Detect) Klebsiella pneumoniae (Not Detect) List. monocytogenes PCR (Not Detect) M.pneumoniae DNA (PCR) (Not Detect) N. meningitidis (PCR) (Not Detect) Parainfluenza 1 (PCR) (Not Detect) Parainfluenza 2 (PCR) (Not Detect) Parainfluenza 3 (PCR) (Not Detect) Parainfluenza 4 (PCR) (Not Detect) A. galactomannan Ag (Negative) A. galactomannan Ag Idx Proteus species (PCR) (Not Detect) RSV (PCR) (Not Detect) Entero/Rhino (PCR) (Not Detect) Serratia marcescens PCR (Not Detect) Staphylococcus sp PCR (Not Detect) Staph aureus (PCR) (Not Detect) mecA-Methicil Res Gene (Not Detect) Streptococcus sp PCR (Not Detect) Group A Strep DNA (Not Detect) Group B Strep (PCR) (Not Detect) Strep pneumoniae (PCR) (Not Detect) P. aeruginosa (PCR) (Not Detect) Yony/B-Vanco Res Genes (Not Detect) KPC (blaKPC) Detect PCR (Not Detect) Beta-(1,3)-D-Glucan 470 pg/mL B-(1,3)-D-Glucan Intrp POSITIVE A (Negative) Exam - Constitutional Vitals: Temp Pulse Resp BP Pulse Ox 97.9 F 76 18 123/48 96 12/03/17 13:00 12/03/17 07:15 12/03/17 13:00 12/03/17 13:00 12/03/17 07:58 General appearance: cooperative, no acute distress, thin - Head Head exam: Present: atraumatic, normal inspection, normocephalic - Eye Eye exam: Present: EOMI, normal appearance, PERRL Pupils: Present: normal accommodation Additional comments: No subconjunctival hemorrhage. - ENT ENT exam: Present: mucous membranes dry - Neck Neck exam: Present: normal inspection - Respiratory Respiratory exam: Present: rhonchi. Absent: rales, respiratory distress, wheezes - Cardiovascular Cardiovascular exam: Present: RRR, +S1, +S2 - GI/Abdominal GI/Abdominal exam: Present: normal bowel sounds, soft, tenderness (generalized) . Absent: distended Additional comments: Urostomy noted to the RLQ with small amount of urine noted in the collection bag. Colostomy noted to the LLQ with small amount of brown liquid stool noted in the collection bag. - Extremities Exam Extremities exam: Present: normal inspection. Absent: joint swelling, pedal edema, tenderness - Neurological Exam Neurological exam: Present: alert, oriented X3, no focal deficits - Psychiatric Psychiatric exam: Present: normal affect, normal mood - Skin Skin exam: Present: dry, intact, normal color, warm - VTE Documentation of Mechanical Device: Intermittent pneumatic compression device Consult Discharge Plan - Plan Referrals: Na Johansen, [employer] [Primary Care Provider] - 12/01/17 1:00 pm (Please follow up as schedule...) - Attending Attestation I examined this patient and my medical decision-making was reviewed with the Resident Physician. I agree with the documented findings, disposition and treatment plan as described except to the extent set forth below.
--- NOTE | 2017-12-03 17:33 | Nephrology Progress Note ---
Date of Encounter: 12/03/17 Time of Encounter: 11:00 - Assessment and Plan (1) Anemia Status: Chronic Hgb noted dropping at 7.7 last pRBCs transfuison was last friday Transfusion parameters hgb <7.0 Continue aranesp weekly Qualifiers: Anemia type: unspecified type Qualified Code(s): D64.9 - Anemia, unspecified (2) ESRD (end stage renal disease) on dialysis Status: Chronic Continue HD with UF goal of 2-3kg as tolerated Will plan to use 2.5ca bath again for low calcium in addition to vitamin D supplements started Subjective Principal diagnosis: hypoxic respiratiory failure 2/2 COPD exacerbation 2/2 PNA Interval history: Pt seen and examined on HD with no new issues Objective - Vital Signs Vital signs: Vital Signs Temp Pulse Resp BP Pulse Ox 12/03/17 16:24 16 94 12/03/17 15:49 97.6 F 80 16 150/85 94 12/03/17 13:00 97.9 F 18 123/48 12/03/17 12:25 122/45 12/03/17 12:10 126/57 12/03/17 11:55 126/63 12/03/17 11:40 156/71 12/03/17 11:25 145/65 12/03/17 11:10 151/65 12/03/17 10:55 142/43 12/03/17 10:40 147/68 12/03/17 10:25 140/62 12/03/17 10:10 133/65 12/03/17 09:55 160/69 12/03/17 09:40 149/78 12/03/17 09:25 98.1 F 18 154/82 12/03/17 07:58 16 96 12/03/17 07:15 97.9 F 76 16 143/53 96 12/03/17 04:55 97.6 F 86 16 157/57 93 12/03/17 00:08 98.1 F 90 18 159/69 98 12/02/17 23:40 18 95 12/02/17 20:17 18 90 12/02/17 19:46 97.6 F 84 16 150/57 93 Intake and Output 12/03/17 12/03/17 12/03/17 07:59 15:59 23:59 Intake Total 600 / 600 Output Total 3600 / 3600 Balance -3000 / -3000 Intake: Oral 0 / 0 Intake, Rinseback and Flushes 600 / 600 Output: Urine 0 / 0 Total Dialysis (HD) Output 3600 / 3600 Other: Weight 57.334 kg Hemodialysis Net Fluid Removed 3000 (mL) Patient Weight 12/03/17 23:59 Weight 57.334 kg - General Appearance General appearance: Present: chronically ill, frail EENT: Present: ATNC, mucous membranes moist Neck: Present: no JVD, supple Additional Comments: good areation ant bilat Cardiology: Present: no edema, normal S1, normal S2 Dialysis Vascular Access: Arteriovenous Fistula thrill: Yes bruit: Yes Gastrointestinal: Present: no tenderness, no guarding Integumentary: Present: no rash Neurologic: Present: no focal deficit Musculoskeletal: Present: no deformities Psychiatric: Present: mood/affect appropriate, cooperative - Lab 12/15/17 04:05 12/15/17 04:05 Most recent lab results Calcium 6.8 mg/dL (8.6-10.3) L 12/03/17 04:15 Phosphorus 5.0 mg/dL (2.7-4.5) H 11/25/17 05:00 Magnesium 1.5 mg/dL (1.6-2.6) L 11/25/17 05:00 - VTE Documentation of Mechanical Device: Intermittent pneumatic compression device Consult Discharge Plan - Plan Additional Instructions: F/up with PCP in 1-2 weeks F/up for HD 3 times/week- F F/up with ID in 2 weeks Referrals: Na Johansen, [employer] [Primary Care Provider] - (Call at discharge due to lengthy stay Patient will go to [facility]) Prescriptions: Gabapentin [Neurontin] 100 mg PO TID #30 capsule LORazepam [Ativan] 0.5 mg PO BID PRN 10 Days #10 tablet PRN Reason: Anxiety OxyCODONE Immed Rel [Roxicodone 5 MG] 2.5 mg PO Q5H PRN 5 Days #10 tablet PRN Reason: Pain Sulfamethoxazole/Trimeth [Bactrim 800MG/160MG/10ML] 10 ml IV BID #7 vial Sulfamethoxazole/Trimeth [Bactrim 800MG/160MG/10ML] 10 ml IV DAILY #5 vial
[2017-12-03] MEDS: Fluconazole 400 MG/200 ML 400 MG/200 ML BAG IVPB SCH (19:47)
--- NOTE | 2017-12-03 21:56 | Internal Med Progress Note ---
Date of Encounter: 12/03/17 Time of Encounter: 18:33 - Assessment and plan (1) Sepsis Current Visit: Yes Status: Acute Assessment and plan: Patient's white count did decrease to 3.3 from 5.6, but she was afebrile and nontachycardic overnight BAL from bronchoscopy from 11/28 results showing Enterobacter sensitive to gentamycin, tobramycin, Bactrim. Unsure if this is true infection. Fungal culture growing yeast. Patient needs observation off antibiotics. Infectious disease following, recommendations appreciated. Qualifiers: Sepsis type: sepsis due to unspecified organism Qualified Code(s): A41.9 - Sepsis, unspecified organism (2) Pneumonia Current Visit: Yes Status: Suspected Assessment and plan: As above Qualifiers: Pneumonia type: due to unspecified organism Laterality: right Lung location: lower lobe of lung Qualified Code(s): J18.1 - Lobar pneumonia, unspecified organism (3) Fungemia Current Visit: Yes Status: Acute Assessment and plan: Patient will continue fluconazole 400 mg IV on dialysis days per infectious disease recommendations She was evaluated by ophthalmology and ruled out endophthalmitis (4) COPD (chronic obstructive pulmonary disease) Current Visit: No Status: Chronic Assessment and plan: Contineu taper steroids, Duo nebs. Qualifiers: COPD type: emphysema Emphysema type: panlobular Qualified Code(s): J43.1 - Panlobular emphysema (5) Chest pain Current Visit: Yes Status: Acute Assessment and plan: Present on admission EKG did not show signs of ischemia. Initial troponin 0.05 subsequent trops 0.07, 0.04 - likely baseline because of ESRD Echocardiogram: LV EF 60%, moderate LV diastolic dysfunction Seen by Cardiology 06/2017 for similar complaints; negative findings. Likely pleuritic and/or chostochondritis from infection and cough. Rankin and Percocet (Q6H) were ineffective. On Roxicodone prn This pain is likely musculoskelatal given it is reproducible. Likely pleuritis as well from infection. She has had a cardiac workup which was negative. Patient is high risk with multiple co-morbidities for any cardiac interventions and so any sort of cardiac testing after this workup would not be warranted. Qualifiers: Chest pain type: unspecified Qualified Code(s): R07.9 - Chest pain, unspecified (6) Anemia in chronic kidney disease Current Visit: No Status: Chronic Assessment and plan: Continue to follow-up H&H. Qualifiers: Chronic kidney disease stage: on chronic dialysis Qualified Code(s): N18.6 - End stage renal disease; D63.1 - Anemia in chronic kidney disease; Z99.2 - Dependence on renal dialysis (7) ESRD (end stage renal disease) Current Visit: No Status: Chronic Assessment and plan: Patient underwent dialysis Friday keeping with her Friday schedule Management per nephrology Does not look fluid overloaded, and electrolytes are within normal limits (8) Elevated troponin Current Visit: Yes Status: Acute Assessment and plan: Elevated troponin likely secondary demand ischemia in ESRD patient Repeat trop on 11/27 at 0.11, only slightly higher than admission (9) Severe malnutrition Current Visit: No Status: Chronic Assessment and plan: Patient was on TPN on last admission and no longer desirous of artificial nutrition. She is able to swallow fluids and solids. Continue to encourage PO intake, dietary consult. (10) Colostomy care Current Visit: No Status: Chronic Assessment and plan: Patient's colostomy is pink and moist. Colostomy bag contains gas and no signs of infection noted. Continue with colostomy care. - Subjective Interval history: Patient states her shortness of breath is returning. Denies fevers/chills, n/v. - Constitutional Vitals: Temp Pulse Resp BP Pulse Ox 98.1 F 104 16 146/68 96 12/03/17 19:19 12/03/17 19:19 12/03/17 20:11 12/03/17 19:19 12/03/17 20:11 Exam: Gen: anxious appearing. Cooperative with exam. No respiratory distress. AAOx3 CVS: RRR Lungs: Course breath sounds throughout. + wheezing, fine rales at bases Ext; no edema, no cyanosis. Internal Medicine: Result - Labs CBC & Chem 7: 12/03/17 04:15 12/03/17 04:15 Labs: Short CBC 12/03/17 Range/Units 04:15 WBC 4.3 (4.3-11.1) K/mcL Hgb 7.7 L (11.5-15.4) g/dL Hct 25.0 L (35.3-44.9) % Plt Count 45 L (140-400) K/mcL BMP 12/03/17 04:15 Sodium 141 Potassium 4.7 Chloride 101 Carbon Dioxide 31 H BUN 44 H Creatinine 5.74 H Glucose 98 Calcium 6.8 L - ABG Interpretation ABG results: PT/INR, D-dimer PT 16.2 Seconds (9.4-12.1) H 11/14/17 10:30 - VTE Documentation of Mechanical Device: Intermittent pneumatic compression device Consult Discharge Plan - Plan Referrals: Na Johansen, TYLER [Primary Care Provider] - 12/01/17 1:00 pm (Please follow up as schedule...)
[2017-12-04] MEDS: *HR* OxyCODONE Immed Rel 5 MG TABLET PO PRN ×5 (00:43→22:14)
[2017-12-04] MEDS: Ipratropium/Albuterol Neb 3 ML IH SCH ×6 (03:53→23:23)
[2017-12-04] MEDS: Ondansetron 4 MG/2 ML VIAL IVP PRN ×3 (03:53→22:14)
[2017-12-04 04:49] LABS: Hematocrit 26.1 % (35.3-44.9); Mean Corpuscular Volume 95.6 fL (83.0-100.0); Red Blood Count 2.73 M/mcL (3.82-4.97)
[2017-12-04 04:50] LABS: Mean Corpuscular HGB Conc 30.7 g/dL (31.6-35.5); Mean Corpuscular Hemoglobin 29.3 pg (28.0-33.3); Mean Platelet Volume 11.3 fL (9.4-12.4); Red Cell Distribution Width 16.5 % (11.5-14.5)
[2017-12-04 05:06] LABS: Albumin 2.8 g/dL (3.5-5.7); Albumin/Globulin Ratio 1.1 (1.1-2.2); Bilirubin,Direct 0.1 mg/dL (0.0-0.2); Bilirubin,Indirect 0.4 mg/dL (0.0-1.2); Bilirubin,Total 0.5 mg/dL (0.3-1.0); Globulin 2.5 g/dL (2.4-3.5); Total Protein 5.3 g/dL (6.4-8.9)
[2017-12-04 06:22] LABS: Calcium 7.3 mg/dL (8.6-10.3); Potassium 4.2 mEq/L (3.5-5.1)
[2017-12-04] MEDS: *HR* Promethazine 25 MG/ML VIAL IVP PRN ×2 (09:38→17:47)
[2017-12-04] MEDS: predniSONE 20 MG TABLET PO SCH (09:38)
[2017-12-04] MEDS: Calcium Acetate 667 MG CAPSULE PO SCH ×3 (09:38→17:46)
[2017-12-04] MEDS: Nicotine 21 MG PATCH.TD24 TD SCH (09:38)
[2017-12-04] MEDS: *HR* Acetylcysteine 20% 600 MG/3 ML ORAL SYRINGE PO SCH ×2 (09:39→21:53)
[2017-12-04] MEDS: Fluticasone Propionate Nasal 50 MCG/SPRAY BOTTLE NS SCH (09:39)
--- NOTE | 2017-12-04 11:15 | Nephrology Progress Note ---
<Lolita Mcknight - Last Filed: 12/04/17 11:16> Date of Encounter: 12/04/17 Time of Encounter: 11:13 - Assessment and Plan (1) ESRD (end stage renal disease) on dialysis Status: Chronic Plan for HD tomorrow Continue to use 2.5 Ca+ bath for low calcium Continue renal diet Continue strict I/Os Avoid nephrotoxins if possible (2) Anemia in CKD (chronic kidney disease) Status: Chronic Hgb 8.0 stable Goal hgb 10-11 Transfuse per parameters Qualifiers: Chronic kidney disease stage: on chronic dialysis Qualified Code(s): N18.6 - End stage renal disease; D63.1 - Anemia in chronic kidney disease; D63.1 - Anemia in chronic kidney disease; Z99.2 - Dependence on renal dialysis; Z99.2 - Dependence on renal dialysis; Z99.2 - Dependence on renal dialysis; Z99.2 - Dependence on renal dialysis (3) Hypocalcemia Status: Acute Ca+ 7.3, up from 6.8 yesterday Ongoing chronic hypocalcemia Will continue higher Ca+ bath of 2.5 in dialysis Continue Ergocalciferol (4) Fungemia Status: Acute per primary/ID teams (5) Sepsis Status: Acute per primary/ID teams Qualifiers: Sepsis type: sepsis due to unspecified organism Qualified Code(s): A41.9 - Sepsis, unspecified organism Subjective Principal diagnosis: hypoxic respiratiory failure 2/2 COPD exacerbation 2/2 PNA Interval history: Patient seen and examined. Lying in bed watching TV Objective - Vital Signs Vital signs: Vital Signs Temp Pulse Resp BP Pulse Ox 12/04/17 08:01 18 92 12/04/17 07:41 98.7 F 91 18 149/76 89 12/04/17 03:58 98.7 F 101 16 166/72 92 12/04/17 03:54 18 96 12/03/17 23:53 16 97 12/03/17 20:11 16 96 12/03/17 19:19 98.1 F 104 18 146/68 92 12/03/17 16:24 16 94 12/03/17 15:49 97.6 F 80 16 150/85 94 12/03/17 13:00 97.9 F 18 123/48 12/03/17 12:25 122/45 12/03/17 12:10 126/57 01/31/18 11:55 126/63 12/03/17 11:40 156/71 12/03/17 11:25 145/65 Intake and Output 12/03/17 12/04/17 12/04/17 23:59 07:59 15:59 Intake Total 920 / 920 Balance 920 / 920 Intake: Oral 920 / 920 Other: Weight 55.3 kg Patient Weight 12/04/17 23:59 Weight 55.3 kg - General Appearance General appearance: Present: cachectic, chronically ill, frail EENT: Present: ATNC, mucous membranes moist, hearing intact, vision intact Neck: Present: supple Respiratory: Present: clear Cardiology: Present: no edema, normal S1, normal S2 Dialysis Vascular Access: Arteriovenous Graft Gastrointestinal: Present: no tenderness, no guarding Integumentary: Present: warm and dry Neurologic: Present: alert and oriented x3 Psychiatric: Present: mood/affect appropriate, cooperative - Lab 12/04/17 04:22 12/04/17 04:22 Most recent lab results Calcium 7.3 mg/dL (8.6-10.3) L 12/04/17 04:22 Phosphorus 5.0 mg/dL (2.7-4.5) H 11/25/17 05:00 Magnesium 1.5 mg/dL (1.6-2.6) L 11/25/17 05:00 - VTE Documentation of Mechanical Device: Intermittent pneumatic compression device Consult Discharge Plan - Plan Additional Instructions: F/up with PCP in 1-2 weeks F/up for HD 3 times/week- MWF F/up with ID in 2 weeks Referrals: Na Johansen, [employer] [Primary Care Provider] - (Call at discharge due to lengthy stay Patient will go to [facility]) Prescriptions: Gabapentin [Neurontin] 100 mg PO TID #30 capsule LORazepam [Ativan] 0.5 mg PO BID PRN 10 Days #10 tablet PRN Reason: Anxiety OxyCODONE Immed Rel [Roxicodone 5 MG] 2.5 mg PO Q5H PRN 5 Days #10 tablet PRN Reason: Pain Sulfamethoxazole/Trimeth [Bactrim 800MG/160MG/10ML] 10 ml IV BID #7 vial Sulfamethoxazole/Trimeth [Bactrim 800MG/160MG/10ML] 10 ml IV DAILY #5 vial <Laila Gustafson - Last Filed: 01/04/18 22:21> Date of Encounter: 12/04/17 - Assessment and Plan (1) Anemia Status: Chronic Qualifiers: Anemia type: unspecified type Qualified Code(s): D64.9 - Anemia, unspecified (2) ESRD (end stage renal disease) on dialysis Status: Chronic Objective - Lab 12/15/17 04:05 12/15/17 04:05 Most recent lab results ABG pH 7.35 pH Units (7.32-7.45) 12/09/17 04:48 ABG pCO2 58 mmHg (35-45) H 12/09/17 04:48 ABG pO2 92 mmHg (85-104) 12/09/17 04:48 ABG HCO3 32 mEq/L (21-27) H 12/09/17 04:48 ABG O2 Saturation 96 % (95-98) 12/09/17 04:48 Calcium 7.2 mg/dL (8.6-10.3) L 12/15/17 04:05 Phosphorus 3.2 mg/dL (2.7-4.5) 12/11/17 04:00 Magnesium 2.0 mg/dL (1.6-2.6) 12/11/17 04:00 - Attending Attestation I examined this patient and my medical decision-making was reviewed with the Resident Physician/CL[employer]ICAL INFORMATICS DIRECTOR. I agree with the documented findings, disposition and treatment plan as described except to the extent set forth below. Pt seen and examined with no new complaints. next HD planned tomorrow. Hgb fairly stable, will continue EPO as needed and transfusion parameters approx. 7- 8. calcium improving, will continue higher calcium bath during HD along with ergocalciferoal and calcium supplements
--- NOTE | 2017-12-04 14:33 | Infectious Disease Progress No ---
Date of Encounter: 12/04/17 Time of Encounter: 14:31 - Assessment and Plan (1) Sepsis Current Visit: Yes Status: Acute Severe sepsis on admission. The patient had two SIRS criteria with hypotension responsive to IV fluids. Likely secondary to fungemia and PNA. Improved. The patient has been afebrile. Hypotension has resolved. Tachycardia has resolved. Peripheral blood cultures drawn 11/14/17 were positive 2/2 for Kelsey lusitaniae. Additional peripheral fungal blood culture drawn 11/16/17 is positive as well. Peripheral blood cultures drawn 11/17/16 were negative. A-port blood cultures drawn 11/17/17 were positive. The patient has had no additional SIRS criteria to indicate a new source of infection. Repeat blood cultures x 2 sets drawn 11/27/17 are negative. Qualifiers: Sepsis type: sepsis due to unspecified organism Qualified Code(s): A41.9 - Sepsis, unspecified organism (2) Fungemia Current Visit: Yes Status: Acute Causative organism Kelsey lusitiniae. Source unclear, but the patient was recently on TPN given through her a-port. Her a-port was removed 11/18/17. Peripheral blood cultures drawn 11/14/17 were positive 2/2. Additional peripheral fungal blood culture drawn 11/16/17 is positive as well. No blood cultures were drawn from the patient's a-port before antifungals were started. Repeat blood cultures x 2 sets from the a-port are positive and x2 sets from a peripheral stick drawn 11/17/17 are negative. Additional blood cultures drawn 11/27/17 are NGTD x 2 sets. Continue fluconazole, 400mg IV daily on HD days only. Opthalmology evaluation noted and appreciated. No endopthalmitis. Repeat LFTs normal. Duration of treatment depends on the clinical picture. Continue until repeat CT scan obtained on Friday. Monitor CBC and LFTs while on antifungals. (3) Cavitary lesion of lung Current Visit: Yes Status: Acute CTA of the chest shows new when compared to previous examination (Oct 2017) multiple focal areas of consolidation within the periphery of the lungs, some with focal cavitation. Per radiology, given the rapid development, septic emboli are primarily considered. In addition, there are innumerable punctate centrilobular tree-in-bud ground-glass nodules that have an inflammatory/ infectious appearance, likely related related to infectious bronchiolitis, but could also be hematogenous as well. CT scan reviewed with Pulmonology team. Etiology unclear: fungemia vs. other. No CT scan obtained during this hospitalization to tell us if these lesions were there on admission or not. Pulmonology recommendations noted and appreciated. Status post bronchoscopy 11/28. Endoscopy report reviewed. Minimal secretions noted. No mucous plugs. BAL of the RML grew MDRO E. cloacae. The specimen has been sent out for MHT. Patient remains stable off antibiotics. Continue antifungals as above. Fungal serologies noted. Fungitell positive. BAL Aspergillus galactomannan positive, but serum negative. BAL pathology pending. Discussed with pulmonology. No clinical picture indicates invasive infection: no new worsening cough, shortness of breath is at baseline, afebrile, does not appear toxic. She has been on and off steroids during her hospitalization, but she is not chronicall immunosuppressed. Bronch really did not look impressive per pulmonology and the pulmonary team does not believe that the patient has invasive aspergillosis. Also reviewed [facility] specimen clinical interpretation website and Histoplasma may cross-react with the Aspergillus antigen assay, leading to false positive test result. At this point, we will not broaden antifungal coverage to Voriconazole. Consider repeating CT scan on Friday. As for the Enterobacter cloace, not sure if this is a true infection vs. colonization. Will continue to observe off antibiotics. Continue droplet precautions. (4) Pneumonia Current Visit: Yes Status: Suspected Location: Bilaterally. Causative organism unclear, but possible viral. RIP positive for HSV and Coronavirus. Previous sputum cultures positive for S. maltophilia, PSEA, and E. coli. CXR showed patchy airspace opacities bilaterally, more pronounced in the right lung base. Previously completed a 7 day course of Levaquin and 8 days of Zosyn. Review of the medical record shows that the patient has had multiple recurrences of PNA over the past six months. Pulmonology consulted. Status post bronchoscopy 11/28/17. Endoscopy report reviewed. Minimal secretions. RML BAL shows MDRO E. cloacae. Patient stable off antibiotics. Continue to observe off antibiotics. Non-candidal yeast species noted on BAL. Final ID pending. Continue fluconazole as above. Qualifiers: Pneumonia type: due to unspecified organism Laterality: right Lung location: lower lobe of lung Qualified Code(s): J18.1 - Lobar pneumonia, unspecified organism (5) Bicytopenia Current Visit: No Status: Chronic Continues to have anemia and thrombocytopenia. Leukopenia has resolved. Continue trend. Further workup and management per the primary team. (6) Chest pain Current Visit: Yes Status: Acute Appears musculoskeletal in origin. Likely secondary to PNA and chostochondritis. Troponin elevated likely secondary to demand ischemia from ESRD. Further workup and management per the primary team. Qualifiers: Chest pain type: unspecified Qualified Code(s): R07.9 - Chest pain, unspecified (7) Elevated troponin Current Visit: Yes Status: Acute Likely chronic secondary to CKD. EKG shows no acute changes. Further workup and management per the primary team. (8) Nausea and vomiting Current Visit: No Status: Chronic Likely secondary to short gut syndrome. Management per the primary team. Qualifiers: Vomiting type: unspecified Vomiting Intractability: non-intractable Qualified Code(s): R11.2 - Nausea with vomiting, unspecified (9) Abdominal pain Current Visit: No Status: Chronic Chronic. Further workup and management per the primary team. Qualifiers: Abdominal location: lower abdomen, unspecified Qualified Code(s): R10.30 - Lower abdominal pain, unspecified (10) Anemia in chronic kidney disease Current Visit: No Status: Chronic Likely multifactorial: poor nutrition + anemia of CKD. Management per the primary and nephrology teams. Qualifiers: Chronic kidney disease stage: on chronic dialysis Qualified Code(s): N18.6 - End stage renal disease; D63.1 - Anemia in chronic kidney disease; Z99.2 - Dependence on renal dialysis (11) COPD (chronic obstructive pulmonary disease) Current Visit: No Status: Chronic Management per the primary and pulmonology teams. Qualifiers: COPD type: emphysema Emphysema type: panlobular Qualified Code(s): J43.1 - Panlobular emphysema (12) ESRD (end stage renal disease) on dialysis Current Visit: No Status: Chronic Nephrology consulted and following. 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 Recently started on TPN, but the patient could not tolerate. Likely contributing to the patient's poor nutritional status. Management per the primary team. (14) Tobacco abuse Current Visit: No Status: Chronic - Subjective Interval history: Patient seen and examined. No acute events noted overnight. Reports pain in her entire chest, worse with deep cough or inspiration. She continues to report shortness of breath with moist nonproductive cough, but does not appear to be in any acute distress. She reports chronic nausea and vomiting with by mouth intake. She again states she had a rough night and doesn't feel well today. She reports liquid stool from her colostomy. She denies blood from her urostomy or colostomy. She denies oral thrush or new skin lesions. She denies fevers, chills , or rigors, but states she is always cold. Infect Dis PN-Objective Data - Labs CBC & Chem 7: 12/04/17 04:22 12/04/17 04:22 Labs: Laboratory Results - last 24 hr 12/04/17 12/04/17 12/04/17 04:22 04:22 04:22 WBC 4.8 RBC 2.73 L Hgb 8.0 L Hct 26.1 L MCV 95.6 MCH 29.3 MCHC 30.7 L RDW 16.5 H Plt Count 45 L MPV 11.3 Immature Plt Fraction 6.0 Sodium Cancelled 142 Potassium Cancelled 4.2 Chloride Cancelled 99 Carbon Dioxide Cancelled 32 H BUN Cancelled 22 Creatinine Cancelled 3.95 H Est GFR ( Amer) Cancelled 13 L Est GFR (Non-Af Amer) Cancelled 11 L BUN/Creatinine Ratio Cancelled 6 Glucose Cancelled 75 Calculated Osmolality Cancelled 296 Calcium Cancelled 7.3 L Total Bilirubin 0.5 Direct Bilirubin 0.1 Indirect Bilirubin 0.4 AST 10 L ALT 10 Alkaline Phosphatase 54 Serum Total Protein 5.3 L Albumin 2.8 L Globulin 2.5 Albumin/Globulin Ratio 1.1 Cultures: Cultures 11/27/17 09:38 Blood Culture - Final Peripheral Venipuncture No growth. 11/27/17 08:37 Blood Culture - Final Peripheral Venipuncture No growth. 11/28/17 13:00 Fungal Culture - Preliminary Right Middle Lobe Lung Kelsey species, not ablicans 11/28/17 13:00 Gram Stain - Final Right Middle Lobe Lung Respiratory Culture - Preliminary Enterobacter cloacae MDRO 11/27/17 12:10 Fungal Culture - Final Left Arm No growth. 11/28/17 13:00 Acid Fast Stain - Final Right Middle Lobe Lung 11/16/17 05:13 Blood Fungal Culture - Final Peripheral Venipuncture No growth. 11/19/17 07:30 Blood Culture - Final Port System No growth. 11/19/17 07:35 Blood Culture - Final Port System No growth. 11/17/17 17:31 Blood Culture - Final Peripheral Venipuncture No growth. 11/17/17 17:31 Blood Culture - Final Peripheral Venipuncture No growth. 11/19/17 10:10 Catheter Tip Culture - Final Intravenous or Arterial Cath No growth. 11/17/17 18:09 Blood Culture - Final Port System Kelsey lusitaniae 11/16/17 05:05 Blood Fungal Culture - Final Peripheral Venipuncture Kelsey lusitaniae Serology 11/30/17 11/28/17 11/28/17 Range/Units 18:00 13:00 13:00 Fluid Source RML BAL Fluid Volume 25 mL Fluid Appearance Cloudy A (Clear) Fluid RBC 0.002 (No Ref Range) M/mcL Fld Tot Nucleated Cell 1663 (No Ref Range) TNC/mcL Fluid Seg Neutrophil % 18.0 % Fld Band Neutrophil % 0.0 % Fluid Lymphocytes % 34.0 % Fluid Monocytes % 1.0 % Fluid Eosinophils % 0.0 % Fluid Basophils % 0.0 % Fluid Other Cells % 47.0 % BAL A. galactomannan Ag POSITIVE A (Negative) Stool Occult Blood Negative (Negative) A. baumannii (PCR) (Not Detect) Chlamy pneumoniae PCR (Not Detect) Adenovirus (PCR) (Not Detect) Blastomyces Ab Comp Fx B. pertussis DNA (PCR) (Not Detect) B.parapertussis DNA PCR (Not Detect) Kelsey albicans (PCR) (Not Detect) C. glabrata (PCR) (Not Detect) C. krusei (PCR) (Not Detect) C. parapsilosis (PCR) (Not Detect) C. tropicalis (PCR) (Not Detect) Coronavirus OC43 (PCR) (Not Detect) Coronavirus HKU1 (PCR) (Not Detect) Coronavirus 229E (PCR) (Not Detect) Coronavirus NL63 (PCR) (Not Detect) Enterobacteriac sp PCR (Not Detect) E. cloacae complex PCR (Not Detect) Enterococcus sp PCR (Not Detect) E. coli (PCR) (Not Detect) H. influenzae (PCR) (Not Detect) Histoplasma Antigen U/mL Histoplasma Ag Interp (Negative) Human Metapneumovir PCR (Not Detect) Influenza A (H1) PCR (Not Detect) Influ A (H1N1/09) PCR (Not Detect) Influenza A (H3) PCR (Not Detect) Influenza Type A (PCR) Influenza A Untype (PCR) (Not Detect) Influenza Type B (PCR) (Not Detect) Klebsiella oxytoca PCR (Not Detect) Klebsiella pneumoniae (Not Detect) List. monocytogenes PCR (Not Detect) M.pneumoniae DNA (PCR) (Not Detect) N. meningitidis (PCR) (Not Detect) Parainfluenza 1 (PCR) (Not Detect) Parainfluenza 2 (PCR) (Not Detect) Parainfluenza 3 (PCR) (Not Detect) Parainfluenza 4 (PCR) (Not Detect) A. galactomannan Ag (Negative) A. galactomannan Ag Idx Proteus species (PCR) (Not Detect) RSV (PCR) (Not Detect) Entero/Rhino (PCR) (Not Detect) Serratia marcescens PCR (Not Detect) Staphylococcus sp PCR (Not Detect) Staph aureus (PCR) (Not Detect) mecA-Methicil Res Gene (Not Detect) Streptococcus sp PCR (Not Detect) Group A Strep DNA (Not Detect) Group B Strep (PCR) (Not Detect) Strep pneumoniae (PCR) (Not Detect) P. aeruginosa (PCR) (Not Detect) Yony/B-Vanco Res Genes (Not Detect) KPC (blaKPC) Detect PCR (Not Detect) Beta-(1,3)-D-Glucan pg/mL B-(1,3)-D-Glucan Intrp (Negative) 11/28/17 11/28/17 11/28/17 Range/Units 13:00 05:30 05:30 Fluid Source NOT PROVIDED Fluid Volume mL Fluid Appearance (Clear) Fluid RBC (No Ref Range) M/mcL Fld Tot Nucleated Cell (No Ref Range) TNC/mcL Fluid Seg Neutrophil % % Fld Band Neutrophil % % Fluid Lymphocytes % % Fluid Monocytes % % Fluid Eosinophils % % Fluid Basophils % % Fluid Other Cells % % BAL A. galactomannan Ag (Negative) Stool Occult Blood (Negative) A. baumannii (PCR) (Not Detect) Chlamy pneumoniae PCR (Not Detect) Adenovirus (PCR) (Not Detect) Blastomyces Ab Comp Fx B. pertussis DNA (PCR) (Not Detect) B.parapertussis DNA PCR (Not Detect) Kelsey albicans (PCR) (Not Detect) C. glabrata (PCR) (Not Detect) C. krusei (PCR) (Not Detect) C. parapsilosis (PCR) (Not Detect) C. tropicalis (PCR) (Not Detect) Coronavirus OC43 (PCR) (Not Detect) Coronavirus HKU1 (PCR) (Not Detect) Coronavirus 229E (PCR) (Not Detect) Coronavirus NL63 (PCR) (Not Detect) Enterobacteriac sp PCR (Not Detect) E. cloacae complex PCR (Not Detect) Enterococcus sp PCR (Not Detect) E. coli (PCR) (Not Detect) H. influenzae (PCR) (Not Detect) Histoplasma Antigen U/mL Histoplasma Ag Interp (Negative) Human Metapneumovir PCR (Not Detect) Influenza A (H1) PCR (Not Detect) Influ A (H1N1/09) PCR (Not Detect) Influenza A (H3) PCR (Not Detect) Influenza Type A (PCR) DETECTED A Influenza A Untype (PCR) (Not Detect) Influenza Type B (PCR) NOT DETECTED (Not Detect) Klebsiella oxytoca PCR (Not Detect) Klebsiella pneumoniae (Not Detect) List. monocytogenes PCR (Not Detect) M.pneumoniae DNA (PCR) (Not Detect) N. meningitidis (PCR) (Not Detect) Parainfluenza 1 (PCR) (Not Detect) Parainfluenza 2 (PCR) (Not Detect) Parainfluenza 3 (PCR) (Not Detect) Parainfluenza 4 (PCR) (Not Detect) A. galactomannan Ag NEGATIVE (Negative) A. galactomannan Ag Idx 0.06 Proteus species (PCR) (Not Detect) RSV (PCR) DETECTED A (Not Detect) Entero/Rhino (PCR) (Not Detect) Serratia marcescens PCR (Not Detect) Staphylococcus sp PCR (Not Detect) Staph aureus (PCR) (Not Detect) mecA-Methicil Res Gene (Not Detect) Streptococcus sp PCR (Not Detect) Group A Strep DNA (Not Detect) Group B Strep (PCR) (Not Detect) Strep pneumoniae (PCR) (Not Detect) P. aeruginosa (PCR) (Not Detect) Yony/B-Vanco Res Genes (Not Detect) KPC (blaKPC) Detect PCR (Not Detect) Beta-(1,3)-D-Glucan >500 pg/mL B-(1,3)-D-Glucan Intrp POSITIVE A (Negative) 11/28/17 11/18/17 11/17/17 Range/Units 05:30 08:41 18:09 Fluid Source Fluid Volume mL Fluid Appearance (Clear) Fluid RBC (No Ref Range) M/mcL Fld Tot Nucleated Cell (No Ref Range) TNC/mcL Fluid Seg Neutrophil % % Fld Band Neutrophil % % Fluid Lymphocytes % % Fluid Monocytes % % Fluid Eosinophils % % Fluid Basophils % % Fluid Other Cells % % BAL A. galactomannan Ag (Negative) Stool Occult Blood (Negative) A. baumannii (PCR) Not Detected (Not Detect) Chlamy pneumoniae PCR Not Detected (Not Detect) Adenovirus (PCR) Not Detected (Not Detect) Blastomyces Ab Comp Fx SEE BELOW B. pertussis DNA (PCR) Not Detected (Not Detect) B.parapertussis DNA PCR Not Detected (Not Detect) Kelsey albicans (PCR) Not Detected (Not Detect) C. glabrata (PCR) Not Detected (Not Detect) C. krusei (PCR) Not Detected (Not Detect) C. parapsilosis (PCR) Not Detected (Not Detect) C. tropicalis (PCR) Not Detected (Not Detect) Coronavirus OC43 (PCR) Not Detected (Not Detect) Coronavirus HKU1 (PCR) DETECTED A (Not Detect) Coronavirus 229E (PCR) Not Detected (Not Detect) Coronavirus NL63 (PCR) Not Detected (Not Detect) Enterobacteriac sp PCR Not Detected (Not Detect) E. cloacae complex PCR Not Detected (Not Detect) Enterococcus sp PCR Not Detected (Not Detect) E. coli (PCR) Not Detected (Not Detect) H. influenzae (PCR) Not Detected (Not Detect) Histoplasma Antigen <2.0 U/mL Histoplasma Ag Interp NEGATIVE (Negative) Human Metapneumovir PCR Not Detected (Not Detect) Influenza A (H1) PCR Not Detected (Not Detect) Influ A (H1N1/09) PCR Not Detected (Not Detect) Influenza A (H3) PCR Not Detected (Not Detect) Influenza Type A (PCR) Influenza A Untype (PCR) Not Detected (Not Detect) Influenza Type B (PCR) Not Detected (Not Detect) Klebsiella oxytoca PCR Not Detected (Not Detect) Klebsiella pneumoniae Not Detected (Not Detect) List. monocytogenes PCR Not Detected (Not Detect) M.pneumoniae DNA (PCR) Not Detected (Not Detect) N. meningitidis (PCR) Not Detected (Not Detect) Parainfluenza 1 (PCR) Not Detected (Not Detect) Parainfluenza 2 (PCR) Not Detected (Not Detect) Parainfluenza 3 (PCR) Not Detected (Not Detect) Parainfluenza 4 (PCR) Not Detected (Not Detect) A. galactomannan Ag (Negative) A. galactomannan Ag Idx Proteus species (PCR) Not Detected (Not Detect) RSV (PCR) DETECTED A (Not Detect) Entero/Rhino (PCR) Not Detected (Not Detect) Serratia marcescens PCR Not Detected (Not Detect) Staphylococcus sp PCR Not Detected (Not Detect) Staph aureus (PCR) Not Detected (Not Detect) mecA-Methicil Res Gene N/A (Not Detect) Streptococcus sp PCR Not Detected (Not Detect) Group A Strep DNA Not Detected (Not Detect) Group B Strep (PCR) Not Detected (Not Detect) Strep pneumoniae (PCR) Not Detected (Not Detect) P. aeruginosa (PCR) Not Detected (Not Detect) Yony/B-Vanco Res Genes N/A (Not Detect) KPC (blaKPC) Detect PCR N/A (Not Detect) Beta-(1,3)-D-Glucan pg/mL B-(1,3)-D-Glucan Intrp (Negative) 11/17/17 Range/Units 17:31 Fluid Source Fluid Volume mL Fluid Appearance (Clear) Fluid RBC (No Ref Range) M/mcL Fld Tot Nucleated Cell (No Ref Range) TNC/mcL Fluid Seg Neutrophil % % Fld Band Neutrophil % % Fluid Lymphocytes % % Fluid Monocytes % % Fluid Eosinophils % % Fluid Basophils % % Fluid Other Cells % % BAL A. galactomannan Ag (Negative) Stool Occult Blood (Negative) A. baumannii (PCR) (Not Detect) Chlamy pneumoniae PCR (Not Detect) Adenovirus (PCR) (Not Detect) Blastomyces Ab Comp Fx B. pertussis DNA (PCR) (Not Detect) B.parapertussis DNA PCR (Not Detect) Kelsey albicans (PCR) (Not Detect) C. glabrata (PCR) (Not Detect) C. krusei (PCR) (Not Detect) C. parapsilosis (PCR) (Not Detect) C. tropicalis (PCR) (Not Detect) Coronavirus OC43 (PCR) (Not Detect) Coronavirus HKU1 (PCR) (Not Detect) Coronavirus 229E (PCR) (Not Detect) Coronavirus NL63 (PCR) (Not Detect) Enterobacteriac sp PCR (Not Detect) E. cloacae complex PCR (Not Detect) Enterococcus sp PCR (Not Detect) E. coli (PCR) (Not Detect) H. influenzae (PCR) (Not Detect) Histoplasma Antigen U/mL Histoplasma Ag Interp (Negative) Human Metapneumovir PCR (Not Detect) Influenza A (H1) PCR (Not Detect) Influ A (H1N1/09) PCR (Not Detect) Influenza A (H3) PCR (Not Detect) Influenza Type A (PCR) Influenza A Untype (PCR) (Not Detect) Influenza Type B (PCR) (Not Detect) Klebsiella oxytoca PCR (Not Detect) Klebsiella pneumoniae (Not Detect) List. monocytogenes PCR (Not Detect) M.pneumoniae DNA (PCR) (Not Detect) N. meningitidis (PCR) (Not Detect) Parainfluenza 1 (PCR) (Not Detect) Parainfluenza 2 (PCR) (Not Detect) Parainfluenza 3 (PCR) (Not Detect) Parainfluenza 4 (PCR) (Not Detect) A. galactomannan Ag (Negative) A. galactomannan Ag Idx Proteus species (PCR) (Not Detect) RSV (PCR) (Not Detect) Entero/Rhino (PCR) (Not Detect) Serratia marcescens PCR (Not Detect) Staphylococcus sp PCR (Not Detect) Staph aureus (PCR) (Not Detect) mecA-Methicil Res Gene (Not Detect) Streptococcus sp PCR (Not Detect) Group A Strep DNA (Not Detect) Group B Strep (PCR) (Not Detect) Strep pneumoniae (PCR) (Not Detect) P. aeruginosa (PCR) (Not Detect) Yony/B-Vanco Res Genes (Not Detect) KPC (blaKPC) Detect PCR (Not Detect) Beta-(1,3)-D-Glucan 470 pg/mL B-(1,3)-D-Glucan Intrp POSITIVE A (Negative) Exam - Constitutional Vitals: Temp Pulse Resp BP Pulse Ox 98.0 F 90 19 137/72 88 12/04/17 12:06 12/04/17 12:06 12/04/17 12:06 12/04/17 12:06 12/04/17 12:06 General appearance: cooperative, no acute distress, thin - Head Head exam: Present: atraumatic, normal inspection, normocephalic - Eye Eye exam: Present: EOMI, normal appearance, PERRL Pupils: Present: normal accommodation Additional comments: No subconjunctival hemorrhage noted. - ENT ENT exam: Present: mucous membranes dry - Neck Neck exam: Present: normal inspection - Respiratory Respiratory exam: Present: CTAB. Absent: rales, respiratory distress, rhonchi, wheezes - Cardiovascular Cardiovascular exam: Present: irregular rhythm. Absent: tachycardia - GI/Abdominal GI/Abdominal exam: Present: normal bowel sounds, soft. Absent: distended, tenderness Additional comments: Urostomy noted to the RLQ with small amount of clear yellow urine. Colostomy noted to the LLQ with small amount of liquid brown stool noted. - Extremities Exam Extremities exam: Present: normal inspection. Absent: joint swelling, pedal edema, tenderness - Neurological Exam Neurological exam: Present: alert, oriented X3, no focal deficits - Psychiatric Psychiatric exam: Present: normal affect, normal mood - Skin Skin exam: Present: dry, intact, normal color, warm Additional comments: No endocarditis stigmata noted. - VTE Documentation of Mechanical Device: Intermittent pneumatic compression device Consult Discharge Plan - Plan Referrals: Na Johansen, [employer] [Primary Care Provider] - 12/01/17 1:00 pm (Please follow up as schedule...) - Attending Attestation I examined this patient and my medical decision-making was reviewed with the Resident Physician. I agree with the documented findings, disposition and treatment plan as described except to the extent set forth below.
--- NOTE | 2017-12-04 17:33 | Internal Med Progress Note ---
Date of Encounter: 12/04/17 Time of Encounter: 17:31 - Assessment and plan (1) Sepsis Current Visit: Yes Status: Acute Assessment and plan: Patient's white count did decrease to 3.3 from 5.6, but she was afebrile and nontachycardic overnight BAL from bronchoscopy from 11/28 results showing Enterobacter sensitive to gentamycin, tobramycin, Bactrim. Unsure if this is true infection. Fungal culture growing yeast. Patient needs observation off antibiotics. Infectious disease following, recommendations appreciated. Qualifiers: Sepsis type: sepsis due to unspecified organism Qualified Code(s): A41.9 - Sepsis, unspecified organism (2) Pneumonia Current Visit: Yes Status: Suspected Assessment and plan: As above Qualifiers: Pneumonia type: due to unspecified organism Laterality: right Lung location: lower lobe of lung Qualified Code(s): J18.1 - Lobar pneumonia, unspecified organism (3) Fungemia Current Visit: Yes Status: Acute Assessment and plan: Patient will continue fluconazole 400 mg IV on dialysis days per infectious disease recommendations She was evaluated by ophthalmology and ruled out endophthalmitis. (4) COPD (chronic obstructive pulmonary disease) Current Visit: No Status: Chronic Assessment and plan: Contineu taper steroids, Duo nebs. Qualifiers: COPD type: emphysema Emphysema type: panlobular Qualified Code(s): J43.1 - Panlobular emphysema (5) Chest pain Current Visit: Yes Status: Acute Assessment and plan: Present on admission EKG did not show signs of ischemia. Initial troponin 0.05 subsequent trops 0.07, 0.04 - likely baseline because of ESRD Echocardiogram: LV EF 60%, moderate LV diastolic dysfunction Seen by Cardiology 06/2017 for similar complaints; negative findings. Likely pleuritic and/or chostochondritis from infection and cough. [place] and Percocet (Q6H) were ineffective. On Roxicodone prn This pain is likely musculoskelatal given it is reproducible. Likely pleuritis as well from infection. She has had a cardiac workup which was negative. Patient is high risk with multiple co-morbidities for any cardiac interventions and so any sort of cardiac testing after this workup would not be warranted. Qualifiers: Chest pain type: unspecified Qualified Code(s): R07.9 - Chest pain, unspecified (6) Anemia in chronic kidney disease Current Visit: No Status: Chronic Assessment and plan: Continue to follow-up H&H. Qualifiers: Chronic kidney disease stage: on chronic dialysis Qualified Code(s): N18.6 - End stage renal disease; D63.1 - Anemia in chronic kidney disease; Z99.2 - Dependence on renal dialysis (7) ESRD (end stage renal disease) Current Visit: No Status: Chronic Assessment and plan: Patient underwent dialysis Friday keeping with her Friday schedule Management per nephrology Does not look fluid overloaded, and electrolytes are within normal limits (8) Elevated troponin Current Visit: Yes Status: Acute Assessment and plan: Elevated troponin likely secondary demand ischemia in ESRD patient Repeat trop on 11/27 at 0.11, only slightly higher than admission (9) Severe malnutrition Current Visit: No Status: Chronic Assessment and plan: Patient was on TPN on last admission and no longer desirous of artificial nutrition. She is able to swallow fluids and solids. Continue to encourage PO intake, dietary consult. (10) Colostomy care Current Visit: No Status: Chronic Assessment and plan: Patient's colostomy is pink and moist. Colostomy bag contains gas and no signs of infection noted. Continue with colostomy care. (11) Cavitary lesion of lung Current Visit: Yes Status: Acute Assessment and plan: Repeat CT on 12/08 - Subjective Interval history: No acute events. Denies fevers/chills, n/v. - Constitutional Vitals: Temp Pulse Resp BP Pulse Ox 97.6 F 85 18 142/70 91 12/04/17 14:59 12/04/17 14:59 12/04/17 15:55 12/04/17 14:59 12/04/17 15:55 General appearance: Present: cachectic, mild distress, underweight, answers questions appropriately Internal Medicine: Result - Labs CBC & Chem 7: 12/04/17 04:22 12/04/17 04:22 Labs: Short CBC 12/04/17 Range/Units 04:22 WBC 4.8 (4.3-11.1) K/mcL Hgb 8.0 L (11.5-15.4) g/dL Hct 26.1 L (35.3-44.9) % Plt Count 45 L (140-400) K/mcL BMP 12/04/17 12/04/17 04:22 04:22 Sodium Cancelled 142 Potassium Cancelled 4.2 Chloride Cancelled 99 Carbon Dioxide Cancelled 32 H BUN Cancelled 22 Creatinine Cancelled 3.95 H Glucose Cancelled 75 Calcium Cancelled 7.3 L Liver Function 12/04/17 Range/Units 04:22 Total Bilirubin 0.5 (0.3-1.0) mg/dL Direct Bilirubin 0.1 (0.0-0.2) mg/dL AST 10 L (13-39) Units/L ALT 10 (7-52) Units/L Alkaline Phosphatase 54 (34-104) Units/L Albumin 2.8 L (3.5-5.7) g/dL - ABG Interpretation ABG results: PT/INR, D-dimer PT 16.2 Seconds (9.4-12.1) H 11/14/17 10:30 - VTE Documentation of Mechanical Device: Intermittent pneumatic compression device Consult Discharge Plan - Plan Referrals: Na Johansen CNP [Primary Care Provider] - 12/01/17 1:00 pm (Please follow up as schedule...)
[2017-12-05] MEDS: *HR* OxyCODONE Immed Rel 5 MG TABLET PO PRN ×4 (04:02→21:17)
[2017-12-05] MEDS: Ipratropium/Albuterol Neb 3 ML IH SCH ×6 (04:16→23:05)
[2017-12-05 04:46] LABS: Hemoglobin 7.4 g/dL (11.5-15.4); Red Cell Distribution Width 16.1 % (11.5-14.5)
[2017-12-05 04:50] LABS: Calcium 6.7 mg/dL (8.6-10.3); Potassium 4.9 mEq/L (3.5-5.1)
[2017-12-05 04:53] LABS: Mean Corpuscular Hemoglobin 29.6 pg (28.0-33.3); Red Blood Count 2.5 M/mcL (3.82-4.97)
[2017-12-05 04:55] LABS: Hematocrit 24.2 % (35.3-44.9); Immature Platelets 6.4 % (1.1-6.1); Mean Corpuscular HGB Conc 30.6 g/dL (31.6-35.5); Mean Corpuscular Volume 96.8 fL (83.0-100.0); Mean Platelet Volume 11.7 fL (9.4-12.4)
[2017-12-05] MEDS ORDERED: 0.9 % Sodium Chloride 250 ML IVC PRN (07:48)
[2017-12-05] MEDS: Nicotine 21 MG PATCH.TD24 TD SCH (08:14)
[2017-12-05] MEDS: predniSONE 20 MG TABLET PO SCH (08:14)
[2017-12-05] MEDS: Calcium Acetate 667 MG CAPSULE PO SCH ×3 (08:14→17:01)
[2017-12-05] MEDS: *HR* Acetylcysteine 20% 600 MG/3 ML ORAL SYRINGE PO SCH ×2 (08:15→21:17)
[2017-12-05] MEDS: Fluticasone Propionate Nasal 50 MCG/SPRAY BOTTLE NS SCH (08:16)
[2017-12-05] MEDS: *HR* Promethazine 25 MG/ML VIAL IVP PRN ×2 (08:16→17:01)
--- NOTE | 2017-12-05 12:22 | Infectious Disease Progress No ---
Date of Encounter: 12/05/17 Time of Encounter: 12:20 - Assessment and Plan (1) Sepsis Current Visit: Yes Status: Acute Severe sepsis on admission. The patient had two SIRS criteria with hypotension responsive to IV fluids. Likely secondary to fungemia and PNA. Improved. The patient has been afebrile. Hypotension has resolved. Tachycardia has resolved. Peripheral blood cultures drawn 11/14/17 were positive 2/2 for Kelsey lusitaniae. Additional peripheral fungal blood culture drawn 11/16/17 is positive as well. Peripheral blood cultures drawn 11/17/16 were negative. A-port blood cultures drawn 11/17/17 were positive. The patient has had no additional SIRS criteria to indicate a new source of infection. Repeat blood cultures x 2 sets drawn 11/27/17 are negative. Qualifiers: Sepsis type: sepsis due to unspecified organism Qualified Code(s): A41.9 - Sepsis, unspecified organism (2) Fungemia Current Visit: Yes Status: Acute Causative organism Kelsey lusitiniae. Source unclear, but the patient was recently on TPN given through her a-port. Her a-port was removed 11/18/17. Peripheral blood cultures drawn 11/14/17 were positive 2/2. Additional peripheral fungal blood culture drawn 11/16/17 is positive as well. No blood cultures were drawn from the patient's a-port before antifungals were started. Repeat blood cultures x 2 sets from the a-port are positive and x2 sets from a peripheral stick drawn 11/17/17 are negative. Additional blood cultures drawn 11/27/17 are NGTD x 2 sets. Continue fluconazole, 400mg IV daily on HD days only. Opthalmology evaluation noted and appreciated. No endopthalmitis. Repeat LFTs normal. Duration of treatment depends on the clinical picture. Continue until repeat CT scan obtained on Friday. Monitor CBC and LFTs while on antifungals. (3) Cavitary lesion of lung Current Visit: Yes Status: Acute CTA of the chest shows new when compared to previous examination (Oct 2017) multiple focal areas of consolidation within the periphery of the lungs, some with focal cavitation. Per radiology, given the rapid development, septic emboli are primarily considered. In addition, there are innumerable punctate centrilobular tree-in-bud ground-glass nodules that have an inflammatory/ infectious appearance, likely related related to infectious bronchiolitis, but could also be hematogenous as well. CT scan reviewed with Pulmonology team. Etiology unclear: fungemia vs. other. No CT scan obtained during this hospitalization to tell us if these lesions were there on admission or not. Pulmonology recommendations noted and appreciated. Status post bronchoscopy 11/28. Endoscopy report reviewed. Minimal secretions noted. No mucous plugs. BAL of the RML grew MDRO E. cloacae. The specimen has been sent out for MHT. Patient remains stable off antibiotics. Continue antifungals as above. Fungal serologies noted. Fungitell positive. BAL Aspergillus galactomannan positive, but serum negative. BAL pathology pending. Discussed with pulmonology. No clinical picture indicates invasive infection: no new worsening cough, shortness of breath is at baseline, afebrile, does not appear toxic. She has been on and off steroids during her hospitalization, but she is not chronically immunosuppressed. Bronch really did not look impressive per pulmonology and the pulmonary team does not believe that the patient has invasive aspergillosis. Also reviewed [facility] specimen clinical interpretation website and Histoplasma may cross-react with the Aspergillus antigen assay, leading to false positive test result. At this point, we will not broaden antifungal coverage to Voriconazole. Consider repeating CT scan on Friday. As for the Enterobacter cloace, not sure if this is a true infection vs. colonization. Will continue to observe off antibiotics. Continue droplet precautions. (4) Pneumonia Current Visit: Yes Status: Suspected Location: Bilaterally. Causative organism unclear, but possible viral. RIP positive for HSV and Coronavirus. Previous sputum cultures positive for S. maltophilia, PSEA, and E. coli. CXR showed patchy airspace opacities bilaterally, more pronounced in the right lung base. Previously completed a 7 day course of Levaquin and 8 days of Zosyn. Review of the medical record shows that the patient has had multiple recurrences of PNA over the past six months. Pulmonology consulted. Status post bronchoscopy 11/28/17. Endoscopy report reviewed. Minimal secretions. RML BAL shows MDRO E. cloacae. Patient stable off antibiotics. Continue to observe off antibiotics. Non-candidal yeast species noted on BAL. Final ID pending. Continue fluconazole as above. Qualifiers: Pneumonia type: due to unspecified organism Laterality: right Lung location: lower lobe of lung Qualified Code(s): J18.1 - Lobar pneumonia, unspecified organism (5) Bicytopenia Current Visit: No Status: Chronic Continues to have anemia and thrombocytopenia. Leukopenia has resolved. Continue trend. Further workup and management per the primary team. (6) Chest pain Current Visit: Yes Status: Acute Appears musculoskeletal in origin. Likely secondary to PNA and chostochondritis. Troponin elevated likely secondary to demand ischemia from ESRD. Further workup and management per the primary team. Qualifiers: Chest pain type: unspecified Qualified Code(s): R07.9 - Chest pain, unspecified (7) Elevated troponin Current Visit: Yes Status: Acute Likely chronic secondary to CKD. EKG shows no acute changes. Further workup and management per the primary team. (8) Nausea and vomiting Current Visit: No Status: Chronic Likely secondary to short gut syndrome. Management per the primary team. Qualifiers: Vomiting type: unspecified Vomiting Intractability: non-intractable Qualified Code(s): R11.2 - Nausea with vomiting, unspecified (9) Abdominal pain Current Visit: No Status: Chronic Chronic. Further workup and management per the primary team. Qualifiers: Abdominal location: lower abdomen, unspecified Qualified Code(s): R10.30 - Lower abdominal pain, unspecified (10) Anemia in chronic kidney disease Current Visit: No Status: Chronic Likely multifactorial: poor nutrition + anemia of CKD. Management per the primary and nephrology teams. Qualifiers: Chronic kidney disease stage: on chronic dialysis Qualified Code(s): N18.6 - End stage renal disease; D63.1 - Anemia in chronic kidney disease; Z99.2 - Dependence on renal dialysis (11) COPD (chronic obstructive pulmonary disease) Current Visit: No Status: Chronic Management per the primary and pulmonology teams. Qualifiers: COPD type: emphysema Emphysema type: panlobular Qualified Code(s): J43.1 - Panlobular emphysema (12) ESRD (end stage renal disease) on dialysis Current Visit: No Status: Chronic Nephrology consulted and following. 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 Recently started on TPN, but the patient could not tolerate. Likely contributing to the patient's poor nutritional status. Management per the primary team. (14) Tobacco abuse Current Visit: No Status: Chronic - Subjective Interval history: Patient seen and examined in the HD unit. No acute events noted overnight. Reports pain in her entire chest, worse with deep cough or inspiration. She reports moist nonproductive cough, denies shortness of breath and does not appear to be in any acute distress. She reports chronic nausea and vomiting with by mouth intake. She again states she had a rough night and doesn't feel well today. She reports liquid stool from her colostomy. She denies blood from her urostomy or colostomy. She denies oral thrush or new skin lesions. She denies fevers, chills, or rigors, but states she is always cold. Infect Dis PN-Objective Data - Labs CBC & Chem 7: 12/05/17 04:11 12/05/17 04:11 Labs: Laboratory Results - last 24 hr 12/05/17 12/05/17 04:11 04:11 WBC 4.5 RBC 2.50 L Hgb 7.4 L Hct 24.2 L MCV 96.8 MCH 29.6 MCHC 30.6 L RDW 16.1 H Plt Count 48 L MPV 11.7 Immature Plt Fraction 6.4 H Sodium 142 Potassium 4.9 Chloride 100 Carbon Dioxide 33 H BUN 35 H Creatinine 5.36 H Est GFR ( Amer) 9 L Est GFR (Non-Af Amer) 8 L BUN/Creatinine Ratio 7 Glucose 107 H Calculated Osmolality 302 H Calcium 6.7 L Cultures: Cultures 11/28/17 13:00 Legionella Culture - Final Right Middle Lobe Lung 11/27/17 09:38 Blood Culture - Final Peripheral Venipuncture No growth. 11/27/17 08:37 Blood Culture - Final Peripheral Venipuncture No growth. 11/28/17 13:00 Fungal Culture - Preliminary Right Middle Lobe Lung Kelsey species, not ablicans 11/28/17 13:00 Gram Stain - Final Right Middle Lobe Lung Respiratory Culture - Preliminary Enterobacter cloacae MDRO 11/27/17 12:10 Fungal Culture - Final Left Arm No growth. 11/28/17 13:00 Acid Fast Stain - Final Right Middle Lobe Lung 11/16/17 05:13 Blood Fungal Culture - Final Peripheral Venipuncture No growth. 11/19/17 07:30 Blood Culture - Final Port System No growth. 11/19/17 07:35 Blood Culture - Final Port System No growth. 11/17/17 17:31 Blood Culture - Final Peripheral Venipuncture No growth. 11/17/17 17:31 Blood Culture - Final Peripheral Venipuncture No growth. 11/19/17 10:10 Catheter Tip Culture - Final Intravenous or Arterial Cath No growth. 11/17/17 18:09 Blood Culture - Final Port System Kelsey lusitaniae 11/16/17 05:05 Blood Fungal Culture - Final Peripheral Venipuncture Kelsey lusitaniae Serology 11/30/17 11/28/17 11/28/17 Range/Units 18:00 13:00 13:00 Fluid Source RML BAL Fluid Volume 25 mL Fluid Appearance Cloudy A (Clear) Fluid RBC 0.002 (No Ref Range) M/mcL Fld Tot Nucleated Cell 1663 (No Ref Range) TNC/mcL Fluid Seg Neutrophil % 18.0 % Fld Band Neutrophil % 0.0 % Fluid Lymphocytes % 34.0 % Fluid Monocytes % 1.0 % Fluid Eosinophils % 0.0 % Fluid Basophils % 0.0 % Fluid Other Cells % 47.0 % BAL A. galactomannan Ag POSITIVE A (Negative) Stool Occult Blood Negative (Negative) A. baumannii (PCR) (Not Detect) Chlamy pneumoniae PCR (Not Detect) Adenovirus (PCR) (Not Detect) Blastomyces Ab Comp Fx B. pertussis DNA (PCR) (Not Detect) B.parapertussis DNA PCR (Not Detect) Kelsey albicans (PCR) (Not Detect) C. glabrata (PCR) (Not Detect) C. krusei (PCR) (Not Detect) C. parapsilosis (PCR) (Not Detect) C. tropicalis (PCR) (Not Detect) Coronavirus OC43 (PCR) (Not Detect) Coronavirus HKU1 (PCR) (Not Detect) Coronavirus 229E (PCR) (Not Detect) Coronavirus NL63 (PCR) (Not Detect) Enterobacteriac sp PCR (Not Detect) E. cloacae complex PCR (Not Detect) Enterococcus sp PCR (Not Detect) E. coli (PCR) (Not Detect) H. influenzae (PCR) (Not Detect) Histoplasma Antigen U/mL Histoplasma Ag Interp (Negative) Human Metapneumovir PCR (Not Detect) Influenza A (H1) PCR (Not Detect) Influ A (H1N1/09) PCR (Not Detect) Influenza A (H3) PCR (Not Detect) Influenza Type A (PCR) Influenza A Untype (PCR) (Not Detect) Influenza Type B (PCR) (Not Detect) Klebsiella oxytoca PCR (Not Detect) Klebsiella pneumoniae (Not Detect) List. monocytogenes PCR (Not Detect) M.pneumoniae DNA (PCR) (Not Detect) N. meningitidis (PCR) (Not Detect) Parainfluenza 1 (PCR) (Not Detect) Parainfluenza 2 (PCR) (Not Detect) Parainfluenza 3 (PCR) (Not Detect) Parainfluenza 4 (PCR) (Not Detect) A. galactomannan Ag (Negative) A. galactomannan Ag Idx Proteus species (PCR) (Not Detect) RSV (PCR) (Not Detect) Entero/Rhino (PCR) (Not Detect) Serratia marcescens PCR (Not Detect) Staphylococcus sp PCR (Not Detect) Staph aureus (PCR) (Not Detect) mecA-Methicil Res Gene (Not Detect) Streptococcus sp PCR (Not Detect) Group A Strep DNA (Not Detect) Group B Strep (PCR) (Not Detect) Strep pneumoniae (PCR) (Not Detect) P. aeruginosa (PCR) (Not Detect) Yony/B-Vanco Res Genes (Not Detect) KPC (blaKPC) Detect PCR (Not Detect) Beta-(1,3)-D-Glucan pg/mL B-(1,3)-D-Glucan Intrp (Negative) 11/28/17 11/28/17 11/28/17 Range/Units 13:00 05:30 05:30 Fluid Source NOT PROVIDED Fluid Volume mL Fluid Appearance (Clear) Fluid RBC (No Ref Range) M/mcL Fld Tot Nucleated Cell (No Ref Range) TNC/mcL Fluid Seg Neutrophil % % Fld Band Neutrophil % % Fluid Lymphocytes % % Fluid Monocytes % % Fluid Eosinophils % % Fluid Basophils % % Fluid Other Cells % % BAL A. galactomannan Ag (Negative) Stool Occult Blood (Negative) A. baumannii (PCR) (Not Detect) Chlamy pneumoniae PCR (Not Detect) Adenovirus (PCR) (Not Detect) Blastomyces Ab Comp Fx B. pertussis DNA (PCR) (Not Detect) B.parapertussis DNA PCR (Not Detect) Kelsey albicans (PCR) (Not Detect) C. glabrata (PCR) (Not Detect) C. krusei (PCR) (Not Detect) C. parapsilosis (PCR) (Not Detect) C. tropicalis (PCR) (Not Detect) Coronavirus OC43 (PCR) (Not Detect) Coronavirus HKU1 (PCR) (Not Detect) Coronavirus 229E (PCR) (Not Detect) Coronavirus NL63 (PCR) (Not Detect) Enterobacteriac sp PCR (Not Detect) E. cloacae complex PCR (Not Detect) Enterococcus sp PCR (Not Detect) E. coli (PCR) (Not Detect) H. influenzae (PCR) (Not Detect) Histoplasma Antigen U/mL Histoplasma Ag Interp (Negative) Human Metapneumovir PCR (Not Detect) Influenza A (H1) PCR (Not Detect) Influ A (H1N1/09) PCR (Not Detect) Influenza A (H3) PCR (Not Detect) Influenza Type A (PCR) DETECTED A Influenza A Untype (PCR) (Not Detect) Influenza Type B (PCR) NOT DETECTED (Not Detect) Klebsiella oxytoca PCR (Not Detect) Klebsiella pneumoniae (Not Detect) List. monocytogenes PCR (Not Detect) M.pneumoniae DNA (PCR) (Not Detect) N. meningitidis (PCR) (Not Detect) Parainfluenza 1 (PCR) (Not Detect) Parainfluenza 2 (PCR) (Not Detect) Parainfluenza 3 (PCR) (Not Detect) Parainfluenza 4 (PCR) (Not Detect) A. galactomannan Ag NEGATIVE (Negative) A. galactomannan Ag Idx 0.06 Proteus species (PCR) (Not Detect) RSV (PCR) DETECTED A (Not Detect) Entero/Rhino (PCR) (Not Detect) Serratia marcescens PCR (Not Detect) Staphylococcus sp PCR (Not Detect) Staph aureus (PCR) (Not Detect) mecA-Methicil Res Gene (Not Detect) Streptococcus sp PCR (Not Detect) Group A Strep DNA (Not Detect) Group B Strep (PCR) (Not Detect) Strep pneumoniae (PCR) (Not Detect) P. aeruginosa (PCR) (Not Detect) Yony/B-Vanco Res Genes (Not Detect) KPC (blaKPC) Detect PCR (Not Detect) Beta-(1,3)-D-Glucan >500 pg/mL B-(1,3)-D-Glucan Intrp POSITIVE A (Negative) 11/28/17 11/18/17 11/17/17 Range/Units 05:30 08:41 18:09 Fluid Source Fluid Volume mL Fluid Appearance (Clear) Fluid RBC (No Ref Range) M/mcL Fld Tot Nucleated Cell (No Ref Range) TNC/mcL Fluid Seg Neutrophil % % Fld Band Neutrophil % % Fluid Lymphocytes % % Fluid Monocytes % % Fluid Eosinophils % % Fluid Basophils % % Fluid Other Cells % % BAL A. galactomannan Ag (Negative) Stool Occult Blood (Negative) A. baumannii (PCR) Not Detected (Not Detect) Chlamy pneumoniae PCR Not Detected (Not Detect) Adenovirus (PCR) Not Detected (Not Detect) Blastomyces Ab Comp Fx SEE BELOW B. pertussis DNA (PCR) Not Detected (Not Detect) B.parapertussis DNA PCR Not Detected (Not Detect) Kelsey albicans (PCR) Not Detected (Not Detect) C. glabrata (PCR) Not Detected (Not Detect) C. krusei (PCR) Not Detected (Not Detect) C. parapsilosis (PCR) Not Detected (Not Detect) C. tropicalis (PCR) Not Detected (Not Detect) Coronavirus OC43 (PCR) Not Detected (Not Detect) Coronavirus HKU1 (PCR) DETECTED A (Not Detect) Coronavirus 229E (PCR) Not Detected (Not Detect) Coronavirus NL63 (PCR) Not Detected (Not Detect) Enterobacteriac sp PCR Not Detected (Not Detect) E. cloacae complex PCR Not Detected (Not Detect) Enterococcus sp PCR Not Detected (Not Detect) E. coli (PCR) Not Detected (Not Detect) H. influenzae (PCR) Not Detected (Not Detect) Histoplasma Antigen <2.0 U/mL Histoplasma Ag Interp NEGATIVE (Negative) Human Metapneumovir PCR Not Detected (Not Detect) Influenza A (H1) PCR Not Detected (Not Detect) Influ A (H1N1/09) PCR Not Detected (Not Detect) Influenza A (H3) PCR Not Detected (Not Detect) Influenza Type A (PCR) Influenza A Untype (PCR) Not Detected (Not Detect) Influenza Type B (PCR) Not Detected (Not Detect) Klebsiella oxytoca PCR Not Detected (Not Detect) Klebsiella pneumoniae Not Detected (Not Detect) List. monocytogenes PCR Not Detected (Not Detect) M.pneumoniae DNA (PCR) Not Detected (Not Detect) N. meningitidis (PCR) Not Detected (Not Detect) Parainfluenza 1 (PCR) Not Detected (Not Detect) Parainfluenza 2 (PCR) Not Detected (Not Detect) Parainfluenza 3 (PCR) Not Detected (Not Detect) Parainfluenza 4 (PCR) Not Detected (Not Detect) A. galactomannan Ag (Negative) A. galactomannan Ag Idx Proteus species (PCR) Not Detected (Not Detect) RSV (PCR) DETECTED A (Not Detect) Entero/Rhino (PCR) Not Detected (Not Detect) Serratia marcescens PCR Not Detected (Not Detect) Staphylococcus sp PCR Not Detected (Not Detect) Staph aureus (PCR) Not Detected (Not Detect) mecA-Methicil Res Gene N/A (Not Detect) Streptococcus sp PCR Not Detected (Not Detect) Group A Strep DNA Not Detected (Not Detect) Group B Strep (PCR) Not Detected (Not Detect) Strep pneumoniae (PCR) Not Detected (Not Detect) P. aeruginosa (PCR) Not Detected (Not Detect) Yony/B-Vanco Res Genes N/A (Not Detect) KPC (blaKPC) Detect PCR N/A (Not Detect) Beta-(1,3)-D-Glucan pg/mL B-(1,3)-D-Glucan Intrp (Negative) 11/17/17 Range/Units 17:31 Fluid Source Fluid Volume mL Fluid Appearance (Clear) Fluid RBC (No Ref Range) M/mcL Fld Tot Nucleated Cell (No Ref Range) TNC/mcL Fluid Seg Neutrophil % % Fld Band Neutrophil % % Fluid Lymphocytes % % Fluid Monocytes % % Fluid Eosinophils % % Fluid Basophils % % Fluid Other Cells % % BAL A. galactomannan Ag (Negative) Stool Occult Blood (Negative) A. baumannii (PCR) (Not Detect) Chlamy pneumoniae PCR (Not Detect) Adenovirus (PCR) (Not Detect) Blastomyces Ab Comp Fx B. pertussis DNA (PCR) (Not Detect) B.parapertussis DNA PCR (Not Detect) Kelsey albicans (PCR) (Not Detect) C. glabrata (PCR) (Not Detect) C. krusei (PCR) (Not Detect) C. parapsilosis (PCR) (Not Detect) C. tropicalis (PCR) (Not Detect) Coronavirus OC43 (PCR) (Not Detect) Coronavirus HKU1 (PCR) (Not Detect) Coronavirus 229E (PCR) (Not Detect) Coronavirus NL63 (PCR) (Not Detect) Enterobacteriac sp PCR (Not Detect) E. cloacae complex PCR (Not Detect) Enterococcus sp PCR (Not Detect) E. coli (PCR) (Not Detect) H. influenzae (PCR) (Not Detect) Histoplasma Antigen U/mL Histoplasma Ag Interp (Negative) Human Metapneumovir PCR (Not Detect) Influenza A (H1) PCR (Not Detect) Influ A (H1N1/09) PCR (Not Detect) Influenza A (H3) PCR (Not Detect) Influenza Type A (PCR) Influenza A Untype (PCR) (Not Detect) Influenza Type B (PCR) (Not Detect) Klebsiella oxytoca PCR (Not Detect) Klebsiella pneumoniae (Not Detect) List. monocytogenes PCR (Not Detect) M.pneumoniae DNA (PCR) (Not Detect) N. meningitidis (PCR) (Not Detect) Parainfluenza 1 (PCR) (Not Detect) Parainfluenza 2 (PCR) (Not Detect) Parainfluenza 3 (PCR) (Not Detect) Parainfluenza 4 (PCR) (Not Detect) A. galactomannan Ag (Negative) A. galactomannan Ag Idx Proteus species (PCR) (Not Detect) RSV (PCR) (Not Detect) Entero/Rhino (PCR) (Not Detect) Serratia marcescens PCR (Not Detect) Staphylococcus sp PCR (Not Detect) Staph aureus (PCR) (Not Detect) mecA-Methicil Res Gene (Not Detect) Streptococcus sp PCR (Not Detect) Group A Strep DNA (Not Detect) Group B Strep (PCR) (Not Detect) Strep pneumoniae (PCR) (Not Detect) P. aeruginosa (PCR) (Not Detect) Yony/B-Vanco Res Genes (Not Detect) KPC (blaKPC) Detect PCR (Not Detect) Beta-(1,3)-D-Glucan 470 pg/mL B-(1,3)-D-Glucan Intrp POSITIVE A (Negative) Exam - Constitutional Vitals: Temp Pulse Resp BP Pulse Ox 97.4 F L 88 18 144/56 99 12/05/17 09:20 12/05/17 06:44 12/05/17 09:20 12/05/17 11:50 12/05/17 07:55 General appearance: cooperative, no acute distress, thin - Head Head exam: Present: atraumatic, normal inspection, normocephalic - Eye Eye exam: Present: EOMI, normal appearance, PERRL Pupils: Present: normal accommodation Additional comments: No subconjunctival hemorrhage noted. - ENT ENT exam: Present: mucous membranes dry - Neck Neck exam: Present: normal inspection - Respiratory Respiratory exam: Present: CTAB, rhonchi (Bilateral anterior stein). Absent: rales, respiratory distress, wheezes - Cardiovascular Cardiovascular exam: Present: RRR, +S1, +S2 - GI/Abdominal GI/Abdominal exam: Present: normal bowel sounds, soft, tenderness (generalized) . Absent: distended Additional comments: Urostomy noted to the RLQ with small amount of clear yellow urine noted. Colostomy noted to the LLQ with small amount of liquid brown stool noted in the collection bag. - Extremities Exam Extremities exam: Present: normal inspection. Absent: joint swelling, pedal edema, tenderness Additional comments: AV fistula noted to the LUE, currently accessed for HD. - Neurological Exam Neurological exam: Present: alert, oriented X3, no focal deficits - Psychiatric Psychiatric exam: Present: normal affect, normal mood - Skin Skin exam: Present: dry, intact, normal color, warm - VTE Documentation of Mechanical Device: Intermittent pneumatic compression device Consult Discharge Plan - Plan Referrals: Na Johansen, [employer] [Primary Care Provider] - 12/01/17 1:00 pm (Please follow up as schedule...) - Attending Attestation I examined this patient and my medical decision-making was reviewed with the Resident Physician. I agree with the documented findings, disposition and treatment plan as described except to the extent set forth below.
--- NOTE | 2017-12-05 13:20 | Nephrology Progress Note ---
Date of Encounter: 12/05/17 Time of Encounter: 13:18 - Assessment and Plan (1) ESRD (end stage renal disease) on dialysis Current Visit: No Status: Chronic HD MWF. Renal vitamins. Renal dose medications. Renal diet. Additional dialysis and ultrafiltration as needed. (2) Anemia Current Visit: No Status: Chronic Monitor hemoglobin. Continue Aranesp. Will increase to 60mcg weekly. Qualifiers: Anemia type: unspecified type Qualified Code(s): D64.9 - Anemia, unspecified (3) Hyperphosphatemia Current Visit: No Status: Chronic Continue phosphate binders. (4) Hypocalcemia Current Visit: Yes Status: Acute High calcium bath with dialysis. Subjective Principal diagnosis: hypoxic respiratiory failure 2/2 COPD exacerbation 2/2 PNA Interval history: Patient was seen while in dialysis. She is on room air. All of her other symptoms seem to be stable. Objective - Vital Signs Vital signs: Vital Signs Temp Pulse Resp BP Pulse Ox 12/05/17 11:50 144/56 12/05/17 11:35 150/44 12/05/17 11:20 124/85 12/05/17 11:05 140/64 12/05/17 10:50 140/64 12/05/17 10:35 142/46 12/05/17 10:20 139/49 12/05/17 10:05 125/53 12/05/17 09:50 144/41 12/05/17 09:35 132/47 12/05/17 09:20 97.4 F L 18 143/58 12/05/17 07:55 16 99 12/05/17 06:44 98.1 F 88 16 161/69 92 12/05/17 04:16 18 93 12/05/17 03:46 98.1 F 88 18 152/57 90 12/05/17 01:00 98.1 F 87 16 155/69 100 12/04/17 23:23 18 95 12/04/17 22:05 98.4 F 86 18 158/63 100 12/04/17 22:00 158/63 12/04/17 20:03 18 91 12/04/17 15:55 18 91 12/04/17 14:59 97.6 F 85 17 142/70 90 Intake and Output 12/04/17 12/05/17 12/05/17 23:59 07:59 15:59 Intake Total 800 / 800 500 / 500 700 / 700 Balance 800 / 800 500 / 500 700 / 700 Intake: Oral 800 / 800 500 / 500 100 / 100 Intake, Rinseback and Flushes 600 / 600 Other: Meal Breakfast Percent of Meal Consumed 10% # Voids 0 Weight 56.88 kg Hemodialysis Net Fluid Removed 3017 (mL) Patient Weight 12/05/17 23:59 Weight 56.88 kg - General Appearance General appearance: Present: well-developed, chronically ill, frail EENT: Present: ATNC Neck: Present: supple Cardiology: Present: regular rate Integumentary: Present: warm and dry Neurologic: Present: alert and oriented x3 Psychiatric: Present: mood/affect appropriate - Lab 12/05/17 04:11 12/05/17 04:11 Most recent lab results Calcium 6.7 mg/dL (8.6-10.3) L 12/05/17 04:11 Phosphorus 5.0 mg/dL (2.7-4.5) H 11/25/17 05:00 Magnesium 1.5 mg/dL (1.6-2.6) L 11/25/17 05:00 - VTE Documentation of Mechanical Device: Intermittent pneumatic compression device Consult Discharge Plan - Plan Referrals: Na Johansen CNP [Primary Care Provider] - 12/01/17 1:00 pm (Please follow up as schedule...)
[2017-12-05] MEDS: Ondansetron 4 MG/2 ML VIAL IVP PRN ×2 (13:38→21:17)
[2017-12-05] MEDS: Fluconazole 400 MG/200 ML 400 MG/200 ML BAG IVPB SCH (17:01)
--- NOTE | 2017-12-05 20:34 | Internal Med Progress Note ---
Date of Encounter: 12/05/17 Time of Encounter: 16:31 - Assessment and plan (1) Sepsis Current Visit: Yes Status: Acute Assessment and plan: Patient's white count did decrease to 3.3 from 5.6, but she was afebrile and nontachycardic overnight BAL from bronchoscopy from 11/28 results showing Enterobacter sensitive to gentamycin, tobramycin, Bactrim. Unsure if this is true infection. Fungal culture growing yeast. Patient needs observation off antibiotics. Qualifiers: Sepsis type: sepsis due to unspecified organism Qualified Code(s): A41.9 - Sepsis, unspecified organism (2) Pneumonia Current Visit: Yes Status: Suspected Assessment and plan: As above Qualifiers: Pneumonia type: due to unspecified organism Laterality: right Lung location: lower lobe of lung Qualified Code(s): J18.1 - Lobar pneumonia, unspecified organism (3) Fungemia Current Visit: Yes Status: Acute Assessment and plan: Patient will continue fluconazole 400 mg IV on dialysis days per infectious disease recommendations She was evaluated by ophthalmology and ruled out endophthalmitis. (4) COPD (chronic obstructive pulmonary disease) Current Visit: No Status: Chronic Assessment and plan: Contineu taper steroids, Duo nebs. Qualifiers: COPD type: emphysema Emphysema type: panlobular Qualified Code(s): J43.1 - Panlobular emphysema (5) Chest pain Current Visit: Yes Status: Acute Assessment and plan: Present on admission EKG did not show signs of ischemia. Initial troponin 0.05 subsequent trops 0.07, 0.04 - likely baseline because of ESRD Echocardiogram: LV EF 60%, moderate LV diastolic dysfunction Seen by Cardiology 06/2017 for similar complaints; negative findings. Likely pleuritic and/or chostochondritis from infection and cough. [place] and Percocet (Q6H) were ineffective. On Roxicodone prn This pain is likely musculoskelatal given it is reproducible. Likely pleuritis as well from infection. She has had a cardiac workup which was negative. Patient is high risk with multiple co-morbidities for any cardiac interventions and so any sort of cardiac testing after this workup would not be warranted. Qualifiers: Chest pain type: unspecified Qualified Code(s): R07.9 - Chest pain, unspecified (6) Anemia in chronic kidney disease Current Visit: No Status: Chronic Assessment and plan: Continue to follow-up H&H. Qualifiers: Chronic kidney disease stage: on chronic dialysis Qualified Code(s): N18.6 - End stage renal disease; D63.1 - Anemia in chronic kidney disease; Z99.2 - Dependence on renal dialysis (7) ESRD (end stage renal disease) Current Visit: No Status: Chronic Assessment and plan: Patient underwent dialysis Friday keeping with her Friday schedule Management per nephrology Does not look fluid overloaded, and electrolytes are within normal limits (8) Elevated troponin Current Visit: Yes Status: Acute Assessment and plan: Elevated troponin likely secondary demand ischemia in ESRD patient Repeat trop on 11/27 at 0.11, only slightly higher than admission (9) Severe malnutrition Current Visit: No Status: Chronic Assessment and plan: Patient was on TPN on last admission and no longer desirous of artificial nutrition. She is able to swallow fluids and solids. Continue to encourage PO intake, dietary consult. (10) Colostomy care Current Visit: No Status: Chronic Assessment and plan: Patient's colostomy is pink and moist. Colostomy bag contains gas and no signs of infection noted. Continue with colostomy care. (11) Cavitary lesion of lung Current Visit: Yes Status: Acute Assessment and plan: Repeat CT on 12/08 - Subjective Interval history: No acute events. She has complaints of chronic pain. - Constitutional Vitals: Temp Pulse Resp BP Pulse Ox 98.1 F 88 18 133/56 98 12/05/17 18:41 12/05/17 18:41 12/05/17 19:37 12/05/17 18:41 12/05/17 19:37 Exam: Gen: anxious appearing. Cooperative with exam. No respiratory distress. AAOx3 CVS: RRR Lungs: Course breath sounds throughout. + wheezing, fine rales at bases Ext; no edema, no cyanosis. Internal Medicine: Result - Labs CBC & Chem 7: 12/05/17 04:11 12/05/17 04:11 Labs: Short CBC 12/05/17 Range/Units 04:11 WBC 4.5 (4.3-11.1) K/mcL Hgb 7.4 L (11.5-15.4) g/dL Hct 24.2 L (35.3-44.9) % Plt Count 48 L (140-400) K/mcL BMP 12/05/17 04:11 Sodium 142 Potassium 4.9 Chloride 100 Carbon Dioxide 33 H BUN 35 H Creatinine 5.36 H Glucose 107 H Calcium 6.7 L - ABG Interpretation ABG results: PT/INR, D-dimer PT 16.2 Seconds (9.4-12.1) H 11/14/17 10:30 - VTE Documentation of Mechanical Device: Intermittent pneumatic compression device Consult Discharge Plan - Plan Referrals: Na Johansen, TYLER [Primary Care Provider] - 12/01/17 1:00 pm (Please follow up as schedule...)
[2017-12-06] MEDS: *HR* Promethazine 25 MG/ML VIAL IVP PRN ×3 (02:27→21:59)
[2017-12-06] MEDS: *HR* OxyCODONE Immed Rel 5 MG TABLET PO PRN ×5 (02:27→21:58)
[2017-12-06 02:39] LABS: Red Blood Count 2.59 M/mcL (3.82-4.97)
[2017-12-06 02:41] LABS: Hemoglobin 7.5 g/dL (11.5-15.4); Immature Platelets 6.1 % (1.1-6.1); Mean Corpuscular Volume 96.5 fL (83.0-100.0); Mean Platelet Volume 10.4 fL (9.4-12.4); Red Cell Distribution Width 15.9 % (11.5-14.5)
[2017-12-06 02:53] LABS: Calcium 7.7 mg/dL (8.6-10.3); Potassium 4.6 mEq/L (3.5-5.1)
[2017-12-06] MEDS: Ipratropium/Albuterol Neb 3 ML IH SCH ×6 (03:45→23:37)
[2017-12-06] MEDS: predniSONE 20 MG TABLET PO SCH (08:06)
[2017-12-06] MEDS: *HR* Acetylcysteine 20% 600 MG/3 ML ORAL SYRINGE PO SCH ×2 (08:06→22:00)
[2017-12-06] MEDS: Calcium Acetate 667 MG CAPSULE PO SCH ×3 (08:06→17:36)
[2017-12-06] MEDS: Nicotine 21 MG PATCH.TD24 TD SCH (08:06)
[2017-12-06] MEDS: Fluticasone Propionate Nasal 50 MCG/SPRAY BOTTLE NS SCH (08:07)
--- NOTE | 2017-12-06 10:19 | Nephrology Progress Note ---
Date of Encounter: 12/06/17 Time of Encounter: 10:18 - Assessment and Plan (1) ESRD (end stage renal disease) on dialysis Current Visit: No Status: Chronic HD MWF. Renal vitamins. Renal dose medications. Renal diet. Additional dialysis and ultrafiltration as needed. (2) Anemia Current Visit: No Status: Chronic Monitor hemoglobin. Continue Aranesp. Increased to 60mcg weekly. Qualifiers: Anemia type: unspecified type Qualified Code(s): D64.9 - Anemia, unspecified (3) Hyperphosphatemia Current Visit: No Status: Chronic Continue phosphate binders. (4) Hypocalcemia Current Visit: Yes Status: Acute High calcium bath with dialysis. Subjective Principal diagnosis: hypoxic respiratiory failure 2/2 COPD exacerbation 2/2 PNA Interval history: Patient was seen. She is asleep. Resting comfortably. Objective - Vital Signs Vital signs: Vital Signs Temp Pulse Resp BP Pulse Ox 12/06/17 07:15 17 100 12/06/17 07:12 98.3 F 83 17 157/65 100 12/06/17 04:16 98.2 F 92 18 143/71 96 12/06/17 03:45 18 96 12/06/17 01:00 98 F 92 18 130/51 91 12/05/17 23:05 18 96 12/05/17 19:37 18 98 12/05/17 18:41 98.1 F 88 18 133/56 100 12/05/17 16:18 16 96 12/05/17 14:04 98.1 F 106 16 136/66 94 12/05/17 12:55 97.7 F 18 138/74 12/05/17 12:20 107/41 12/05/17 12:05 155/63 12/05/17 11:50 144/56 12/05/17 11:35 150/44 12/05/17 11:20 124/85 12/05/17 11:05 140/64 12/05/17 10:50 140/64 12/05/17 10:35 142/46 12/05/17 10:20 139/49 Intake and Output 12/05/17 12/06/17 12/06/17 23:59 07:59 15:59 Other: Weight 53.887 kg Patient Weight 12/06/17 23:59 Weight 53.887 kg - General Appearance General appearance: Present: well-developed, chronically ill, frail Cardiology: Present: regular rate Musculoskeletal: Present: no cyanosis - Lab 12/06/17 02:32 12/06/17 02:32 Most recent lab results Calcium 7.7 mg/dL (8.6-10.3) L 12/06/17 02:32 Phosphorus 5.0 mg/dL (2.7-4.5) H 11/25/17 05:00 Magnesium 1.5 mg/dL (1.6-2.6) L 11/25/17 05:00 - VTE Documentation of Mechanical Device: Intermittent pneumatic compression device Consult Discharge Plan - Plan Referrals: Na Johansen, ACID DIPPER [Primary Care Provider] - 12/01/17 1:00 pm (Please follow up as schedule...)
--- NOTE | 2017-12-06 15:15 | Internal Med Progress Note ---
Date of Encounter: 12/06/17 Time of Encounter: 15:12 - Assessment and plan (1) Sepsis Current Visit: Yes Status: Acute Assessment and plan: Patient's white count did decrease to 3.3 from 5.6, but she was afebrile and nontachycardic overnight BAL from bronchoscopy from 11/28 results showing Enterobacter sensitive to gentamycin, tobramycin, Bactrim. Unsure if this is true infection. Fungal culture growing yeast. Patient needs observation off antibiotics. Qualifiers: Sepsis type: sepsis due to unspecified organism Qualified Code(s): A41.9 - Sepsis, unspecified organism (2) Pneumonia Current Visit: Yes Status: Suspected Assessment and plan: As above Qualifiers: Pneumonia type: due to unspecified organism Laterality: right Lung location: lower lobe of lung Qualified Code(s): J18.1 - Lobar pneumonia, unspecified organism (3) Fungemia Current Visit: Yes Status: Acute Assessment and plan: Patient will continue fluconazole 400 mg IV on dialysis days per infectious disease recommendations She was evaluated by ophthalmology and ruled out endophthalmitis. (4) COPD (chronic obstructive pulmonary disease) Current Visit: No Status: Chronic Assessment and plan: Contineu taper steroids, Duo nebs. Qualifiers: COPD type: emphysema Emphysema type: panlobular Qualified Code(s): J43.1 - Panlobular emphysema (5) Chest pain Current Visit: Yes Status: Acute Assessment and plan: Present on admission EKG did not show signs of ischemia. Initial troponin 0.05 subsequent trops 0.07, 0.04 - likely baseline because of ESRD Echocardiogram: LV EF 60%, moderate LV diastolic dysfunction Seen by Cardiology 06/2017 for similar complaints; negative findings. Likely pleuritic and/or chostochondritis from infection and cough. [place] and Percocet (Q6H) were ineffective. On Roxicodone prn This pain is likely musculoskelatal given it is reproducible. Likely pleuritis as well from infection. She has had a cardiac workup which was negative. Patient is high risk with multiple co-morbidities for any cardiac interventions and so any sort of cardiac testing after this workup would not be warranted. Qualifiers: Chest pain type: unspecified Qualified Code(s): R07.9 - Chest pain, unspecified (6) Anemia in chronic kidney disease Current Visit: No Status: Chronic Assessment and plan: Continue to follow-up H&H. Qualifiers: Chronic kidney disease stage: on chronic dialysis Qualified Code(s): N18.6 - End stage renal disease; D63.1 - Anemia in chronic kidney disease; Z99.2 - Dependence on renal dialysis (7) ESRD (end stage renal disease) Current Visit: No Status: Chronic Assessment and plan: Patient underwent dialysis Friday keeping with her Friday schedule Management per nephrology Does not look fluid overloaded, and electrolytes are within normal limits (8) Elevated troponin Current Visit: Yes Status: Acute Assessment and plan: Elevated troponin likely secondary demand ischemia in ESRD patient Repeat trop on 11/27 at 0.11, only slightly higher than admission (9) Severe malnutrition Current Visit: No Status: Chronic Assessment and plan: Patient was on TPN on last admission and no longer desirous of artificial nutrition. She is able to swallow fluids and solids. Continue to encourage PO intake, dietary consult. (10) Colostomy care Current Visit: No Status: Chronic Assessment and plan: Patient's colostomy is pink and moist. Colostomy bag contains gas and no signs of infection noted. Continue with colostomy care. (11) Cavitary lesion of lung Current Visit: Yes Status: Acute Assessment and plan: Repeat CT on 12/08 - Subjective Interval history: Patient today has complaints of malaise. She has chest pain that is not as severe as yesterday. Denies shortness of breath, fevers/chills, nausea. She has poor appetite. Port removal site has packing that was removed and replaced by me today. - Constitutional Vitals: Temp Pulse Resp BP Pulse Ox 98.1 F 90 16 144/66 96 12/06/17 10:51 12/06/17 10:51 12/06/17 10:51 12/06/17 10:51 12/06/17 10:51 General appearance: Present: cachectic, mild distress, underweight, answers questions appropriately Exam: Gen: anxious appearing. Cooperative with exam. No respiratory distress. AAOx3 CVS: RRR Lungs: Course breath sounds throughout. + wheezing, fine rales at bases Ext; no edema, no cyanosis. Thorax: area of port removal site packing in tact, no purulent drainage noted, there is some scant blood after removing packing. Internal Medicine: Result - Labs CBC & Chem 7: 12/06/17 02:32 12/06/17 02:32 Labs: Short CBC 12/06/17 Range/Units 02:32 WBC 4.8 (4.3-11.1) K/mcL Hgb 7.5 L (11.5-15.4) g/dL Hct 25.0 L (35.3-44.9) % Plt Count 51 L (140-400) K/mcL BMP 12/06/17 02:32 Sodium 139 Potassium 4.6 Chloride 101 Carbon Dioxide 33 H BUN 19 Creatinine 3.35 H Glucose 70 Calcium 7.7 L - ABG Interpretation ABG results: PT/INR, D-dimer PT 16.2 Seconds (9.4-12.1) H 11/14/17 10:30 - VTE Documentation of Mechanical Device: Intermittent pneumatic compression device Consult Discharge Plan - Plan Referrals: Na Johansen, MERCANTILE AGENT [Primary Care Provider] - 12/01/17 1:00 pm (Please follow up as schedule...)
[2017-12-06] MEDS: Ondansetron 4 MG/2 ML VIAL IVP PRN (17:38)
[2017-12-07] MEDS: *HR* OxyCODONE Immed Rel 5 MG TABLET PO PRN ×2 (02:29→12:12)
[2017-12-07] MEDS: Ondansetron 4 MG/2 ML VIAL IVP PRN ×2 (02:30→16:32)
[2017-12-07] MEDS: Ipratropium/Albuterol Neb 3 ML IH SCH ×2 (03:55→07:50)
[2017-12-07 04:29] LABS: Hemoglobin 7.1 g/dL (11.5-15.4); Red Cell Distribution Width 15.8 % (11.5-14.5)
[2017-12-07 04:31] LABS: Hematocrit 23.3 % (35.3-44.9); Mean Corpuscular HGB Conc 30.5 g/dL (31.6-35.5); Mean Corpuscular Hemoglobin 29.2 pg (28.0-33.3); Mean Corpuscular Volume 95.9 fL (83.0-100.0); Mean Platelet Volume 11.1 fL (9.4-12.4); Red Blood Count 2.43 M/mcL (3.82-4.97)
[2017-12-07 04:53] LABS: Calcium 7.1 mg/dL (8.6-10.3); Potassium 4.8 mEq/L (3.5-5.1)
[2017-12-07] MEDS: *HR* Promethazine 25 MG/ML VIAL IVP PRN ×3 (05:26→21:34)
[2017-12-07] MEDS: *HR* Acetylcysteine 20% 600 MG/3 ML ORAL SYRINGE PO SCH ×2 (08:08→21:35)
[2017-12-07] MEDS: Nicotine 21 MG PATCH.TD24 TD SCH (08:08)
[2017-12-07] MEDS: predniSONE 20 MG TABLET PO SCH (08:08)
[2017-12-07] MEDS: Calcium Acetate 667 MG CAPSULE PO SCH ×3 (08:08→16:32)
[2017-12-07] MEDS: Fluticasone Propionate Nasal 50 MCG/SPRAY BOTTLE NS SCH (08:09)
--- NOTE | 2017-12-07 11:00 | Nephrology Progress Note ---
Date of Encounter: 12/07/17 Time of Encounter: 11:00 - Assessment and Plan (1) ESRD (end stage renal disease) on dialysis Current Visit: No Status: Chronic HD MWF. Renal vitamins. Renal dose medications. Renal diet. Additional dialysis and ultrafiltration as needed. (2) Anemia Current Visit: No Status: Chronic Monitor hemoglobin. Continue Aranesp. Increased to 60mcg weekly. Qualifiers: Anemia type: unspecified type Qualified Code(s): D64.9 - Anemia, unspecified (3) Hyperphosphatemia Current Visit: No Status: Chronic Continue phosphate binders. (4) Hypocalcemia Current Visit: Yes Status: Acute High calcium bath with dialysis. Subjective Principal diagnosis: hypoxic respiratiory failure 2/2 COPD exacerbation 2/2 PNA Interval history: Patient was seen. She is asleep. Resting comfortably. Objective - Vital Signs Vital signs: Vital Signs Temp Pulse Resp BP Pulse Ox 12/07/17 07:50 14 95 12/07/17 07:26 97.9 F 90 14 137/90 95 12/07/17 04:23 98.1 F 88 18 156/67 95 12/07/17 03:55 16 93 12/06/17 23:43 97.6 F 88 18 135/54 100 12/06/17 23:37 16 96 12/06/17 20:17 15 98 12/06/17 20:13 97.9 F 90 16 127/75 98 12/06/17 16:23 16 98 12/06/17 16:07 98.3 F 85 16 154/63 90 12/06/17 11:51 16 96 Intake and Output 12/06/17 12/07/17 12/07/17 23:59 07:59 15:59 Other: Weight 50.802 kg Patient Weight 12/07/17 23:59 Weight 50.802 kg - General Appearance General appearance: Present: well-developed, well-nourished EENT: Present: ATNC Cardiology: Present: regular rate - Lab 12/07/17 04:15 12/07/17 04:15 Most recent lab results Calcium 7.1 mg/dL (8.6-10.3) L 12/07/17 04:15 Phosphorus 5.0 mg/dL (2.7-4.5) H 11/25/17 05:00 Magnesium 1.5 mg/dL (1.6-2.6) L 11/25/17 05:00 - VTE Documentation of Mechanical Device: Intermittent pneumatic compression device Consult Discharge Plan - Plan Referrals: Na Johansen CNP [Primary Care Provider] - 12/01/17 1:00 pm (Please follow up as schedule...)
[2017-12-07] MEDS: Ipratropium/Albuterol Neb 3 ML IH PRN (15:46)
--- NOTE | 2017-12-07 15:46 | Internal Med Progress Note ---
Date of Encounter: 12/07/17 Time of Encounter: 15:44 - Assessment and plan (1) Sepsis Current Visit: Yes Status: Acute Assessment and plan: Hemodynamically stable. Patient's white count did decrease to 3.3 from 5.6, but she was afebrile and nontachycardic overnight. BAL from bronchoscopy from results showing Enterobacter sensitive to gentamycin, tobramycin, Bactrim. Unsure if this is true infection. Fungal culture growing yeast. Patient needs observation off antibiotics. Qualifiers: Sepsis type: sepsis due to unspecified organism Qualified Code(s): A41.9 - Sepsis, unspecified organism (2) Pneumonia Current Visit: Yes Status: Suspected Assessment and plan: As above Qualifiers: Pneumonia type: due to unspecified organism Laterality: right Lung location: lower lobe of lung Qualified Code(s): J18.1 - Lobar pneumonia, unspecified organism (3) Fungemia Current Visit: Yes Status: Acute Assessment and plan: Patient will continue fluconazole 400 mg IV on dialysis days per infectious disease recommendations She was evaluated by ophthalmology and ruled out endophthalmitis. (4) COPD (chronic obstructive pulmonary disease) Current Visit: No Status: Chronic Assessment and plan: Contineu taper steroids, Duo nebs. Qualifiers: COPD type: emphysema Emphysema type: panlobular Qualified Code(s): J43.1 - Panlobular emphysema (5) Chest pain Current Visit: Yes Status: Acute Assessment and plan: Present on admission EKG did not show signs of ischemia. Initial troponin 0.05 subsequent trops 0.07, 0.04 - likely baseline because of ESRD Echocardiogram: LV EF 60%, moderate LV diastolic dysfunction Seen by Cardiology 06/2017 for similar complaints; negative findings. Likely pleuritic and/or chostochondritis from infection and cough. [place] and Percocet (Q6H) were ineffective. On Roxicodone prn This pain is likely musculoskelatal given it is reproducible. Likely pleuritis as well from infection. She has had a cardiac workup which was negative. Patient is high risk with multiple co-morbidities for any cardiac interventions and so any sort of cardiac testing after this workup would not be warranted. Qualifiers: Chest pain type: unspecified Qualified Code(s): R07.9 - Chest pain, unspecified (6) Anemia in chronic kidney disease Current Visit: No Status: Chronic Assessment and plan: Continue to follow-up H&H. Qualifiers: Chronic kidney disease stage: on chronic dialysis Qualified Code(s): N18.6 - End stage renal disease; D63.1 - Anemia in chronic kidney disease; Z99.2 - Dependence on renal dialysis (7) ESRD (end stage renal disease) Current Visit: No Status: Chronic Assessment and plan: Patient underwent dialysis Friday keeping with her Friday schedule Management per nephrology Does not look fluid overloaded, and electrolytes are within normal limits (8) Elevated troponin Current Visit: Yes Status: Acute Assessment and plan: Elevated troponin likely secondary demand ischemia in ESRD patient Repeat trop on 11/27 at 0.11, only slightly higher than admission (9) Severe malnutrition Current Visit: No Status: Chronic Assessment and plan: Patient was on TPN on last admission and no longer desirous of artificial nutrition. She is able to swallow fluids and solids. Continue to encourage PO intake, dietary consult. (10) Colostomy care Current Visit: No Status: Chronic Assessment and plan: Patient's colostomy is pink and moist. Colostomy bag contains gas and no signs of infection noted. Continue with colostomy care. (11) Cavitary lesion of lung Current Visit: Yes Status: Acute Assessment and plan: Repeat CT on 12/08 - Subjective Interval history: 12/06: Patient had complaints of malaise. SDenies shortness of breath, fevers/ chills, nausea. She has poor appetite. Port removal site has packing that was removed and replaced. 12/07: Energy is better, denies fevers/chill,s n/v - Constitutional Vitals: Temp Pulse Resp BP Pulse Ox 98.1 F 89 16 146/66 90 12/07/17 15:16 12/07/17 15:16 12/07/17 15:16 12/07/17 15:16 12/07/17 15:16 General appearance: Present: cachectic, mild distress, underweight, answers questions appropriately Exam: Gen: anxious appearing. Cooperative with exam. No respiratory distress. AAOx3 CVS: RRR Lungs: Course breath sounds throughout. + wheezing, fine rales at bases Ext; no edema, no cyanosis. Thorax: area of port removal site packing in tact, clean Internal Medicine: Result - Labs CBC & Chem 7: 12/07/17 04:15 12/07/17 04:15 Labs: Short CBC 12/07/17 Range/Units 04:15 WBC 4.2 L (4.3-11.1) K/mcL Hgb 7.1 L (11.5-15.4) g/dL Hct 23.3 L (35.3-44.9) % Plt Count 55 L (140-400) K/mcL BMP 12/07/17 04:15 Sodium 140 Potassium 4.8 Chloride 101 Carbon Dioxide 30 H BUN 34 H Creatinine 4.92 H Glucose 84 Calcium 7.1 L - ABG Interpretation ABG results: PT/INR, D-dimer PT 16.2 Seconds (9.4-12.1) H 11/14/17 10:30 - VTE Documentation of Mechanical Device: Intermittent pneumatic compression device Consult Discharge Plan - Plan Referrals: Na Johansen, S[employer]IOR [employer]PLICATION DEVELOPER [Primary Care Provider] - 12/01/17 1:00 pm (Please follow up as schedule...)
[2017-12-08] MEDS: Ipratropium/Albuterol Neb 3 ML IH PRN ×2 (01:06→13:44)
[2017-12-08] MEDS: *HR* OxyCODONE Immed Rel 5 MG TABLET PO PRN ×2 (04:40→21:29)
[2017-12-08] MEDS: Ondansetron 4 MG/2 ML VIAL IVP PRN ×2 (04:41→18:15)
[2017-12-08 05:02] LABS: Hemoglobin 7.6 g/dL (11.5-15.4); Red Cell Distribution Width 15.7 % (11.5-14.5)
[2017-12-08 05:04] LABS: Hematocrit 25.2 % (35.3-44.9); Immature Platelets 5.5 % (1.1-6.1); Mean Corpuscular HGB Conc 30.2 g/dL (31.6-35.5); Mean Corpuscular Hemoglobin 28.9 pg (28.0-33.3); Mean Corpuscular Volume 95.8 fL (83.0-100.0); Mean Platelet Volume 11.6 fL (9.4-12.4); Red Blood Count 2.63 M/mcL (3.82-4.97)
[2017-12-08 05:16] LABS: Calcium 7.2 mg/dL (8.6-10.3); Potassium 5.3 mEq/L (3.5-5.1)
[2017-12-08] MEDS ORDERED: 0.9 % Sodium Chloride 250 ML IVC PRN (07:34)
[2017-12-08] MEDS: Calcium Acetate 667 MG CAPSULE PO SCH ×4 (09:50→18:25)
--- NOTE | 2017-12-08 10:30 | Internal Med Progress Note ---
Date of Encounter: 12/08/17 Time of Encounter: 10: - Assessment and plan (1) Sepsis Current Visit: Yes Status: Acute Assessment and plan: Hemodynamically stable. Patient's white count did decrease to 3.3 from 5.6, but she was afebrile and nontachycardic overnight. BAL from bronchoscopy from results showing Enterobacter sensitive to gentamycin, tobramycin, Bactrim. Unsure if this is true infection. Fungal culture growing yeast. Patient needs observation off antibiotics. on 12/06 nursing reported packing site of her port removal had discharge. I removed the packing and there was no discharge noted. Wound cultures obtained are no growth to date. In regards to shortness of breath; there may be anxiety component as well on top of COPD. We will try Ativan 0.5 mg prn and monitor. Qualifiers: Sepsis type: sepsis due to unspecified organism Qualified Code(s): A41.9 - Sepsis, unspecified organism (2) Pneumonia Current Visit: Yes Status: Suspected Assessment and plan: As above Qualifiers: Pneumonia type: due to unspecified organism Laterality: right Lung location: lower lobe of lung Qualified Code(s): J18.1 - Lobar pneumonia, unspecified organism (3) Fungemia Current Visit: Yes Status: Acute Assessment and plan: Patient will continue fluconazole 400 mg IV on dialysis days per infectious disease recommendations She was evaluated by ophthalmology and ruled out endophthalmitis. (4) COPD (chronic obstructive pulmonary disease) Current Visit: No Status: Chronic Assessment and plan: Contineu taper steroids, Duo nebs. Qualifiers: COPD type: emphysema Emphysema type: panlobular Qualified Code(s): J43.1 - Panlobular emphysema (5) Chest pain Current Visit: Yes Status: Acute Assessment and plan: Present on admission EKG did not show signs of ischemia. Initial troponin 0.05 subsequent trops 0.07, 0.04 - likely baseline because of ESRD Echocardiogram: LV EF 60%, moderate LV diastolic dysfunction Seen by Cardiology 06/2017 for similar complaints; negative findings. Likely pleuritic and/or chostochondritis from infection and cough. [place] and Percocet (Q6H) were ineffective. On Roxicodone prn This pain is likely musculoskelatal given it is reproducible. Likely pleuritis as well from infection. She has had a cardiac workup which was negative. Patient is high risk with multiple co-morbidities for any cardiac interventions and so any sort of cardiac testing after this workup would not be warranted. Qualifiers: Chest pain type: unspecified Qualified Code(s): R07.9 - Chest pain, unspecified (6) Anemia in chronic kidney disease Current Visit: No Status: Chronic Assessment and plan: Continue to follow-up H&H. Qualifiers: Chronic kidney disease stage: on chronic dialysis Qualified Code(s): N18.6 - End stage renal disease; D63.1 - Anemia in chronic kidney disease; Z99.2 - Dependence on renal dialysis (7) ESRD (end stage renal disease) Current Visit: No Status: Chronic Assessment and plan: Patient underwent dialysis Friday keeping with her Friday schedule Management per nephrology Does not look fluid overloaded, and electrolytes are within normal limits (8) Elevated troponin Current Visit: Yes Status: Acute Assessment and plan: Elevated troponin likely secondary demand ischemia in ESRD patient Repeat trop on 11/27 at 0.11, only slightly higher than admission (9) Severe malnutrition Current Visit: No Status: Chronic Assessment and plan: Patient was on TPN on last admission and no longer desirous of artificial nutrition. She is able to swallow fluids and solids. Continue to encourage PO intake, dietary consult. (10) Colostomy care Current Visit: No Status: Chronic Assessment and plan: Patient's colostomy is pink and moist. Colostomy bag contains gas and no signs of infection noted. Continue with colostomy care. (11) Cavitary lesion of lung Current Visit: Yes Status: Acute Assessment and plan: Repeat CT on 12/08 - Subjective Interval history: 2: Patient had complaints of malaise. SDenies shortness of breath, fevers/ chills, nausea. She has poor appetite. Port removal site has packing that was removed and replaced. 12/07: Energy is better, denies fevers/chill,s n/v. 12/08: Patient stating having more trouble breathing lately, requiring duo neb more frequently states shes wheezing a lot. Chest pain resolves. Denies fevers/ chills. - Constitutional Vitals: Temp Pulse Resp BP Pulse Ox 98.1 F 93 18 177/76 95 12/08/17 06:46 12/08/17 06:46 12/08/17 06:46 12/08/17 06:46 12/08/17 06:46 General appearance: Present: cachectic, mild distress, underweight, answers questions appropriately Exam: Gen: anxious appearing. Cooperative with exam. No respiratory distress. AAOx3 CVS: RRR Lungs: Course breath sounds throughout. + wheezing, fine rales at bases Ext; no edema, no cyanosis. Thorax: area of port removal site packing in tact, no purulent drainage noted, there is some scant blood after removing packing. Internal Medicine: Result - Labs CBC & Chem 7: 12/08/17 04:45 12/08/17 04:45 Labs: Short CBC 12/08/17 Range/Units 04:45 WBC 5.4 (4.3-11.1) K/mcL Hgb 7.6 L (11.5-15.4) g/dL Hct 25.2 L (35.3-44.9) % Plt Count 63 L (140-400) K/mcL BMP 12/08/17 04:45 Sodium 140 Potassium 5.3 H Chloride 101 Carbon Dioxide 28 BUN 44 H Creatinine 6.45 H Glucose 63 L Calcium 7.2 L - ABG Interpretation ABG results: PT/INR, D-dimer PT 16.2 Seconds (9.4-12.1) H 11/14/17 10:30 - VTE Documentation of Mechanical Device: Intermittent pneumatic compression device Consult Discharge Plan - Plan Referrals: Na Johansen, POLITICAL SCIENCE CHAIR [Primary Care Provider] - 12/01/17 1:00 pm (Please follow up as schedule...)
--- NOTE | 2017-12-08 10:55 | Infectious Disease Progress No ---
Date of Encounter: 12/08/17 Time of Encounter: 10:53 - Assessment and Plan (1) Sepsis Current Visit: Yes Status: Acute Severe sepsis on admission. The patient had two SIRS criteria with hypotension responsive to IV fluids. Likely secondary to fungemia and PNA. Resolved. The patient has been afebrile. Hypotension has resolved. Tachycardia has resolved. Peripheral blood cultures drawn 11/14/17 were positive 2/2 for Kelsey lusitaniae. Additional peripheral fungal blood culture drawn 11/16/17 is positive as well. Peripheral blood cultures drawn 11/17/16 were negative. A-port blood cultures drawn 11/17/17 were positive. Repeat blood cultures x 2 sets drawn 11/27/17 are negative. Qualifiers: Sepsis type: sepsis due to unspecified organism Qualified Code(s): A41.9 - Sepsis, unspecified organism (2) Fungemia Current Visit: Yes Status: Acute Causative organism Kelsey lusitiniae. Source unclear, but the patient was recently on TPN given through her a-port. Her a-port was removed 11/18/17. Peripheral blood cultures drawn 11/14/17 were positive 2/2. Additional peripheral fungal blood culture drawn 11/16/17 is positive as well. No blood cultures were drawn from the patient's a-port before antifungals were started. Repeat blood cultures x 2 sets from the a-port are positive and x2 sets from a peripheral stick drawn 11/17/17 are negative. Additional blood cultures drawn 11/27/17 are NGTD x 2 sets. Continue fluconazole, 400mg IV daily on HD days only. Opthalmology evaluation noted and appreciated. No endopthalmitis. Repeat LFTs normal. Duration of treatment depends on the clinical picture. Await repeat CT scan results. Monitor CBC and LFTs while on antifungals. (3) Cavitary lesion of lung Current Visit: Yes Status: Acute CTA of the chest shows new when compared to previous examination (Oct 2017) multiple focal areas of consolidation within the periphery of the lungs, some with focal cavitation. Per radiology, given the rapid development, septic emboli are primarily considered. In addition, there are innumerable punctate centrilobular tree-in-bud ground-glass nodules that have an inflammatory/ infectious appearance, likely related related to infectious bronchiolitis, but could also be hematogenous as well. CT scan reviewed with Pulmonology team. Etiology unclear: fungemia vs. other. No CT scan obtained during this hospitalization to tell us if these lesions were there on admission or not. Pulmonology recommendations noted and appreciated. Status post bronchoscopy 11/28. Endoscopy report reviewed. Minimal secretions noted. No mucous plugs. BAL of the RML grew MDRO E. cloacae. MHT negative for CRE. Patient remains stable off antibiotics. Continue antifungals as above. Fungal serologies noted. Fungitell positive. BAL Aspergillus galactomannan positive, but serum negative. BAL pathology negative for fungal elements or malignancy. Discussed with pulmonology. No clinical picture indicates invasive infection: no new worsening cough, shortness of breath is at baseline, afebrile , does not appear toxic. She has been on and off steroids during her hospitalization, but she is not chronically immunosuppressed. Bronch really did not look impressive per pulmonology and the pulmonary team does not believe that the patient has invasive aspergillosis. Also reviewed [facility] specimen clinical interpretation website and Histoplasma may cross-react with the Aspergillus antigen assay, leading to false positive test result. At this point, we will not broaden antifungal coverage to Voriconazole. Repeat CT scan of the chest. Will need to discuss with nephrology when we can do it since we will need to do it with contrast and the patient is already getting dialysis today. As for the Enterobacter cloace, not sure if this is a true infection vs. colonization. Will continue to observe off antibiotics. Continue droplet precautions. (4) Pneumonia Current Visit: Yes Status: Suspected Location: Bilaterally. Causative organism unclear, but possible viral. RIP positive for HSV and Coronavirus. Previous sputum cultures positive for S. maltophilia, PSEA, and E. coli. CXR showed patchy airspace opacities bilaterally, more pronounced in the right lung base. Previously completed a 7 day course of Levaquin and 8 days of Zosyn. Review of the medical record shows that the patient has had multiple recurrences of PNA over the past six months. Pulmonology consulted. Status post bronchoscopy 11/28/17. Endoscopy report reviewed. Minimal secretions. RML BAL shows MDRO E. cloacae (not CRE). Patient stable off antibiotics. Continue to observe off antibiotics. Non-candidal yeast species noted on BAL. Final ID pending. Continue fluconazole as above. Qualifiers: Pneumonia type: due to unspecified organism Laterality: right Lung location: lower lobe of lung Qualified Code(s): J18.1 - Lobar pneumonia, unspecified organism (5) Bicytopenia Current Visit: No Status: Chronic Continues to have anemia and thrombocytopenia. Leukopenia has resolved. Continue trend. Further workup and management per the primary team. (6) Chest pain Current Visit: Yes Status: Acute Appears musculoskeletal in origin. Likely secondary to PNA and chostochondritis. Troponin elevated likely secondary to demand ischemia from ESRD. Further workup and management per the primary team. Qualifiers: Chest pain type: unspecified Qualified Code(s): R07.9 - Chest pain, unspecified (7) Elevated troponin Current Visit: Yes Status: Acute Likely chronic secondary to CKD. EKG shows no acute changes. Further workup and management per the primary team. (8) Nausea and vomiting Current Visit: No Status: Chronic Likely secondary to short gut syndrome. Management per the primary team. Qualifiers: Vomiting type: unspecified Vomiting Intractability: non-intractable Qualified Code(s): R11.2 - Nausea with vomiting, unspecified (9) Abdominal pain Current Visit: No Status: Chronic Chronic. Further workup and management per the primary team. Qualifiers: Abdominal location: lower abdomen, unspecified Qualified Code(s): R10.30 - Lower abdominal pain, unspecified (10) Anemia in chronic kidney disease Current Visit: No Status: Chronic Likely multifactorial: poor nutrition + anemia of CKD. Management per the primary and nephrology teams. Qualifiers: Chronic kidney disease stage: on chronic dialysis Qualified Code(s): N18.6 - End stage renal disease; D63.1 - Anemia in chronic kidney disease; Z99.2 - Dependence on renal dialysis (11) COPD (chronic obstructive pulmonary disease) Current Visit: No Status: Chronic Management per the primary and pulmonology teams. Qualifiers: COPD type: emphysema Emphysema type: panlobular Qualified Code(s): J43.1 - Panlobular emphysema (12) ESRD (end stage renal disease) on dialysis Current Visit: No Status: Chronic Nephrology consulted and following. 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 Recently started on TPN, but the patient could not tolerate. Likely contributing to the patient's poor nutritional status. Management per the primary team. (14) Tobacco abuse Current Visit: No Status: Chronic - Subjective Interval history: Patient seen and examined in the HD unit. No acute events noted overnight. Patient sleeping quietly upon my entrance, but became tearful and distraught when I woke her up saying her chest was hurting and she was short of breath. Reports pain in her entire chest, worse with deep cough or inspiration. She reports moist nonproductive cough. She does not appear to be in any acute distress. She reports chronic nausea and vomiting with by mouth intake. She reports liquid stool from her colostomy. She denies blood from her urostomy or colostomy. She denies oral thrush or new skin lesions. She denies fevers, chills , or rigors, but states she is always cold. Infect Dis PN-Objective Data - Labs CBC & Chem 7: 12/08/17 04:45 12/08/17 04:45 Labs: Laboratory Results - last 24 hr 12/08/17 12/08/17 04:45 04:45 WBC 5.4 RBC 2.63 L Hgb 7.6 L Hct 25.2 L MCV 95.8 MCH 28.9 MCHC 30.2 L RDW 15.7 H Plt Count 63 L MPV 11.6 Immature Plt Fraction 5.5 Sodium 140 Potassium 5.3 H Chloride 101 Carbon Dioxide 28 BUN 44 H Creatinine 6.45 H Est GFR ( Amer) 8 L Est GFR (Non-Af Amer) 6 L BUN/Creatinine Ratio 7 Glucose 63 L Calculated Osmolality 299 Calcium 7.2 L Cultures: Cultures 12/06/17 09:07 Wound Culture - Final Chest No growth. 11/28/17 13:00 Gram Stain - Final Right Middle Lobe Lung Respiratory Culture - Final Enterobacter cloacae MDRO 11/28/17 13:00 Legionella Culture - Final Right Middle Lobe Lung 11/27/17 09:38 Blood Culture - Final Peripheral Venipuncture No growth. 11/27/17 08:37 Blood Culture - Final Peripheral Venipuncture No growth. 11/28/17 13:00 Fungal Culture - Preliminary Right Middle Lobe Lung Kelsey species, not ablicans 11/27/17 12:10 Fungal Culture - Final Left Arm No growth. 11/28/17 13:00 Acid Fast Stain - Final Right Middle Lobe Lung 11/16/17 05:13 Blood Fungal Culture - Final Peripheral Venipuncture No growth. 11/19/17 07:30 Blood Culture - Final Port System No growth. 11/19/17 07:35 Blood Culture - Final Port System No growth. 11/17/17 17:31 Blood Culture - Final Peripheral Venipuncture No growth. 11/17/17 17:31 Blood Culture - Final Peripheral Venipuncture No growth. 11/19/17 10:10 Catheter Tip Culture - Final Intravenous or Arterial Cath No growth. 11/17/17 18:09 Blood Culture - Final Port System Kelsey lusitaniae 11/16/17 05:05 Blood Fungal Culture - Final Peripheral Venipuncture Kelsey lusitaniae Serology 11/30/17 11/28/17 11/28/17 Range/Units 18:00 13:00 13:00 Fluid Source RML BAL Fluid Volume 25 mL Fluid Appearance Cloudy A (Clear) Fluid RBC 0.002 (No Ref Range) M/mcL Fld Tot Nucleated Cell 1663 (No Ref Range) TNC/mcL Fluid Seg Neutrophil % 18.0 % Fld Band Neutrophil % 0.0 % Fluid Lymphocytes % 34.0 % Fluid Monocytes % 1.0 % Fluid Eosinophils % 0.0 % Fluid Basophils % 0.0 % Fluid Other Cells % 47.0 % BAL A. galactomannan Ag POSITIVE A (Negative) Stool Occult Blood Negative (Negative) A. baumannii (PCR) (Not Detect) Chlamy pneumoniae PCR (Not Detect) Adenovirus (PCR) (Not Detect) Blastomyces Ab Comp Fx B. pertussis DNA (PCR) (Not Detect) B.parapertussis DNA PCR (Not Detect) Kelsey albicans (PCR) (Not Detect) C. glabrata (PCR) (Not Detect) C. krusei (PCR) (Not Detect) C. parapsilosis (PCR) (Not Detect) C. tropicalis (PCR) (Not Detect) Coronavirus OC43 (PCR) (Not Detect) Coronavirus HKU1 (PCR) (Not Detect) Coronavirus 229E (PCR) (Not Detect) Coronavirus NL63 (PCR) (Not Detect) Enterobacteriac sp PCR (Not Detect) E. cloacae complex PCR (Not Detect) Enterococcus sp PCR (Not Detect) E. coli (PCR) (Not Detect) H. influenzae (PCR) (Not Detect) Histoplasma Antigen U/mL Histoplasma Ag Interp (Negative) Human Metapneumovir PCR (Not Detect) Influenza A (H1) PCR (Not Detect) Influ A (H1N1/09) PCR (Not Detect) Influenza A (H3) PCR (Not Detect) Influenza Type A (PCR) Influenza A Untype (PCR) (Not Detect) Influenza Type B (PCR) (Not Detect) Klebsiella oxytoca PCR (Not Detect) Klebsiella pneumoniae (Not Detect) List. monocytogenes PCR (Not Detect) M.pneumoniae DNA (PCR) (Not Detect) N. meningitidis (PCR) (Not Detect) Parainfluenza 1 (PCR) (Not Detect) Parainfluenza 2 (PCR) (Not Detect) Parainfluenza 3 (PCR) (Not Detect) Parainfluenza 4 (PCR) (Not Detect) A. galactomannan Ag (Negative) A. galactomannan Ag Idx Proteus species (PCR) (Not Detect) RSV (PCR) (Not Detect) Entero/Rhino (PCR) (Not Detect) Serratia marcescens PCR (Not Detect) Staphylococcus sp PCR (Not Detect) Staph aureus (PCR) (Not Detect) mecA-Methicil Res Gene (Not Detect) Streptococcus sp PCR (Not Detect) Group A Strep DNA (Not Detect) Group B Strep (PCR) (Not Detect) Strep pneumoniae (PCR) (Not Detect) P. aeruginosa (PCR) (Not Detect) Yony/B-Vanco Res Genes (Not Detect) KPC (blaKPC) Detect PCR (Not Detect) Beta-(1,3)-D-Glucan pg/mL B-(1,3)-D-Glucan Intrp (Negative) 11/28/17 11/28/17 11/28/17 Range/Units 13:00 05:30 05:30 Fluid Source NOT PROVIDED Fluid Volume mL Fluid Appearance (Clear) Fluid RBC (No Ref Range) M/mcL Fld Tot Nucleated Cell (No Ref Range) TNC/mcL Fluid Seg Neutrophil % % Fld Band Neutrophil % % Fluid Lymphocytes % % Fluid Monocytes % % Fluid Eosinophils % % Fluid Basophils % % Fluid Other Cells % % BAL A. galactomannan Ag (Negative) Stool Occult Blood (Negative) A. baumannii (PCR) (Not Detect) Chlamy pneumoniae PCR (Not Detect) Adenovirus (PCR) (Not Detect) Blastomyces Ab Comp Fx B. pertussis DNA (PCR) (Not Detect) B.parapertussis DNA PCR (Not Detect) Kelsey albicans (PCR) (Not Detect) C. glabrata (PCR) (Not Detect) C. krusei (PCR) (Not Detect) C. parapsilosis (PCR) (Not Detect) C. tropicalis (PCR) (Not Detect) Coronavirus OC43 (PCR) (Not Detect) Coronavirus HKU1 (PCR) (Not Detect) Coronavirus 229E (PCR) (Not Detect) Coronavirus NL63 (PCR) (Not Detect) Enterobacteriac sp PCR (Not Detect) E. cloacae complex PCR (Not Detect) Enterococcus sp PCR (Not Detect) E. coli (PCR) (Not Detect) H. influenzae (PCR) (Not Detect) Histoplasma Antigen U/mL Histoplasma Ag Interp (Negative) Human Metapneumovir PCR (Not Detect) Influenza A (H1) PCR (Not Detect) Influ A (H1N1/09) PCR (Not Detect) Influenza A (H3) PCR (Not Detect) Influenza Type A (PCR) DETECTED A Influenza A Untype (PCR) (Not Detect) Influenza Type B (PCR) NOT DETECTED (Not Detect) Klebsiella oxytoca PCR (Not Detect) Klebsiella pneumoniae (Not Detect) List. monocytogenes PCR (Not Detect) M.pneumoniae DNA (PCR) (Not Detect) N. meningitidis (PCR) (Not Detect) Parainfluenza 1 (PCR) (Not Detect) Parainfluenza 2 (PCR) (Not Detect) Parainfluenza 3 (PCR) (Not Detect) Parainfluenza 4 (PCR) (Not Detect) A. galactomannan Ag NEGATIVE (Negative) A. galactomannan Ag Idx 0.06 Proteus species (PCR) (Not Detect) RSV (PCR) DETECTED A (Not Detect) Entero/Rhino (PCR) (Not Detect) Serratia marcescens PCR (Not Detect) Staphylococcus sp PCR (Not Detect) Staph aureus (PCR) (Not Detect) mecA-Methicil Res Gene (Not Detect) Streptococcus sp PCR (Not Detect) Group A Strep DNA (Not Detect) Group B Strep (PCR) (Not Detect) Strep pneumoniae (PCR) (Not Detect) P. aeruginosa (PCR) (Not Detect) Yony/B-Vanco Res Genes (Not Detect) KPC (blaKPC) Detect PCR (Not Detect) Beta-(1,3)-D-Glucan >500 pg/mL B-(1,3)-D-Glucan Intrp POSITIVE A (Negative) 11/28/17 11/18/17 11/17/17 Range/Units 05:30 08:41 18:09 Fluid Source Fluid Volume mL Fluid Appearance (Clear) Fluid RBC (No Ref Range) M/mcL Fld Tot Nucleated Cell (No Ref Range) TNC/mcL Fluid Seg Neutrophil % % Fld Band Neutrophil % % Fluid Lymphocytes % % Fluid Monocytes % % Fluid Eosinophils % % Fluid Basophils % % Fluid Other Cells % % BAL A. galactomannan Ag (Negative) Stool Occult Blood (Negative) A. baumannii (PCR) Not Detected (Not Detect) Chlamy pneumoniae PCR Not Detected (Not Detect) Adenovirus (PCR) Not Detected (Not Detect) Blastomyces Ab Comp Fx SEE BELOW B. pertussis DNA (PCR) Not Detected (Not Detect) B.parapertussis DNA PCR Not Detected (Not Detect) Kelsey albicans (PCR) Not Detected (Not Detect) C. glabrata (PCR) Not Detected (Not Detect) C. krusei (PCR) Not Detected (Not Detect) C. parapsilosis (PCR) Not Detected (Not Detect) C. tropicalis (PCR) Not Detected (Not Detect) Coronavirus OC43 (PCR) Not Detected (Not Detect) Coronavirus HKU1 (PCR) DETECTED A (Not Detect) Coronavirus 229E (PCR) Not Detected (Not Detect) Coronavirus NL63 (PCR) Not Detected (Not Detect) Enterobacteriac sp PCR Not Detected (Not Detect) E. cloacae complex PCR Not Detected (Not Detect) Enterococcus sp PCR Not Detected (Not Detect) E. coli (PCR) Not Detected (Not Detect) H. influenzae (PCR) Not Detected (Not Detect) Histoplasma Antigen <2.0 U/mL Histoplasma Ag Interp NEGATIVE (Negative) Human Metapneumovir PCR Not Detected (Not Detect) Influenza A (H1) PCR Not Detected (Not Detect) Influ A (H1N1/09) PCR Not Detected (Not Detect) Influenza A (H3) PCR Not Detected (Not Detect) Influenza Type A (PCR) Influenza A Untype (PCR) Not Detected (Not Detect) Influenza Type B (PCR) Not Detected (Not Detect) Klebsiella oxytoca PCR Not Detected (Not Detect) Klebsiella pneumoniae Not Detected (Not Detect) List. monocytogenes PCR Not Detected (Not Detect) M.pneumoniae DNA (PCR) Not Detected (Not Detect) N. meningitidis (PCR) Not Detected (Not Detect) Parainfluenza 1 (PCR) Not Detected (Not Detect) Parainfluenza 2 (PCR) Not Detected (Not Detect) Parainfluenza 3 (PCR) Not Detected (Not Detect) Parainfluenza 4 (PCR) Not Detected (Not Detect) A. galactomannan Ag (Negative) A. galactomannan Ag Idx Proteus species (PCR) Not Detected (Not Detect) RSV (PCR) DETECTED A (Not Detect) Entero/Rhino (PCR) Not Detected (Not Detect) Serratia marcescens PCR Not Detected (Not Detect) Staphylococcus sp PCR Not Detected (Not Detect) Staph aureus (PCR) Not Detected (Not Detect) mecA-Methicil Res Gene N/A (Not Detect) Streptococcus sp PCR Not Detected (Not Detect) Group A Strep DNA Not Detected (Not Detect) Group B Strep (PCR) Not Detected (Not Detect) Strep pneumoniae (PCR) Not Detected (Not Detect) P. aeruginosa (PCR) Not Detected (Not Detect) Yony/B-Vanco Res Genes N/A (Not Detect) KPC (blaKPC) Detect PCR N/A (Not Detect) Beta-(1,3)-D-Glucan pg/mL B-(1,3)-D-Glucan Intrp (Negative) 11/17/17 Range/Units 17:31 Fluid Source Fluid Volume mL Fluid Appearance (Clear) Fluid RBC (No Ref Range) M/mcL Fld Tot Nucleated Cell (No Ref Range) TNC/mcL Fluid Seg Neutrophil % % Fld Band Neutrophil % % Fluid Lymphocytes % % Fluid Monocytes % % Fluid Eosinophils % % Fluid Basophils % % Fluid Other Cells % % BAL A. galactomannan Ag (Negative) Stool Occult Blood (Negative) A. baumannii (PCR) (Not Detect) Chlamy pneumoniae PCR (Not Detect) Adenovirus (PCR) (Not Detect) Blastomyces Ab Comp Fx B. pertussis DNA (PCR) (Not Detect) B.parapertussis DNA PCR (Not Detect) Kelsey albicans (PCR) (Not Detect) C. glabrata (PCR) (Not Detect) C. krusei (PCR) (Not Detect) C. parapsilosis (PCR) (Not Detect) C. tropicalis (PCR) (Not Detect) Coronavirus OC43 (PCR) (Not Detect) Coronavirus HKU1 (PCR) (Not Detect) Coronavirus 229E (PCR) (Not Detect) Coronavirus NL63 (PCR) (Not Detect) Enterobacteriac sp PCR (Not Detect) E. cloacae complex PCR (Not Detect) Enterococcus sp PCR (Not Detect) E. coli (PCR) (Not Detect) H. influenzae (PCR) (Not Detect) Histoplasma Antigen U/mL Histoplasma Ag Interp (Negative) Human Metapneumovir PCR (Not Detect) Influenza A (H1) PCR (Not Detect) Influ A (H1N1/09) PCR (Not Detect) Influenza A (H3) PCR (Not Detect) Influenza Type A (PCR) Influenza A Untype (PCR) (Not Detect) Influenza Type B (PCR) (Not Detect) Klebsiella oxytoca PCR (Not Detect) Klebsiella pneumoniae (Not Detect) List. monocytogenes PCR (Not Detect) M.pneumoniae DNA (PCR) (Not Detect) N. meningitidis (PCR) (Not Detect) Parainfluenza 1 (PCR) (Not Detect) Parainfluenza 2 (PCR) (Not Detect) Parainfluenza 3 (PCR) (Not Detect) Parainfluenza 4 (PCR) (Not Detect) A. galactomannan Ag (Negative) A. galactomannan Ag Idx Proteus species (PCR) (Not Detect) RSV (PCR) (Not Detect) Entero/Rhino (PCR) (Not Detect) Serratia marcescens PCR (Not Detect) Staphylococcus sp PCR (Not Detect) Staph aureus (PCR) (Not Detect) mecA-Methicil Res Gene (Not Detect) Streptococcus sp PCR (Not Detect) Group A Strep DNA (Not Detect) Group B Strep (PCR) (Not Detect) Strep pneumoniae (PCR) (Not Detect) P. aeruginosa (PCR) (Not Detect) Yony/B-Vanco Res Genes (Not Detect) KPC (blaKPC) Detect PCR (Not Detect) Beta-(1,3)-D-Glucan 470 pg/mL B-(1,3)-D-Glucan Intrp POSITIVE A (Negative) Exam - Constitutional Vitals: Temp Pulse Resp BP Pulse Ox 98.1 F 93 18 177/76 95 12/08/17 06:46 12/08/17 06:46 12/08/17 06:46 12/08/17 06:46 12/08/17 06:46 General appearance: cooperative, no acute distress, thin - Head Head exam: Present: atraumatic, normal inspection, normocephalic - Eye Eye exam: Present: EOMI, normal appearance, PERRL Pupils: Present: normal accommodation - ENT ENT exam: Present: mucous membranes dry - Neck Neck exam: Present: normal inspection - Respiratory Respiratory exam: Present: CTAB. Absent: rales, respiratory distress, rhonchi, wheezes - Cardiovascular Cardiovascular exam: Present: irregular rhythm. Absent: tachycardia - GI/Abdominal GI/Abdominal exam: Present: normal bowel sounds, soft, tenderness (generalized) . Absent: distended Additional comments: Urostomy noted to the RLQ with small amount of clear urine noted in the collection bag. Mucousy discharge noted to the stoma. Colostomy noted to the LLQ with moderate amount of gas and brown liquid stool noted in the collection bag. - Extremities Exam Extremities exam: Present: normal inspection. Absent: joint swelling, pedal edema, tenderness Additional comments: AV fistula noted to the LUE, currently accessed for HD. - Neurological Exam Neurological exam: Present: alert, oriented X3, no focal deficits - Psychiatric Psychiatric exam: Present: normal affect, normal mood - Skin Skin exam: Present: dry, intact, normal color, warm - Additional findings Additional findings: Right upper chest dressing C/D/I. - VTE Documentation of Mechanical Device: Intermittent pneumatic compression device Consult Discharge Plan - Plan Referrals: Na Johansen, PROCESS INSPECTOR [Primary Care Provider] - 12/01/17 1:00 pm (Please follow up as schedule...) - Attending Attestation I examined this patient and my medical decision-making was reviewed with the Resident Physician. I agree with the documented findings, disposition and treatment plan as described except to the extent set forth below.
--- NOTE | 2017-12-08 12:29 | Nephrology Progress Note ---
Date of Encounter: 12/08/17 Time of Encounter: 12:21 - Assessment and Plan (1) ESRD (end stage renal disease) on dialysis Current Visit: No Status: Chronic HD MWF. Renal vitamins. Renal dose medications. Renal diet. Additional dialysis and ultrafiltration as needed. (2) Anemia Current Visit: No Status: Chronic Monitor hemoglobin. Continue Aranesp. Increased to 60mcg weekly. Transfuse as needed. Qualifiers: Anemia type: unspecified type Qualified Code(s): D64.9 - Anemia, unspecified (3) Hyperphosphatemia Current Visit: No Status: Chronic Continue phosphate binders. (4) Hypocalcemia Current Visit: Yes Status: Acute High calcium bath with dialysis. Subjective Principal diagnosis: hypoxic respiratiory failure 2/2 COPD exacerbation 2/2 PNA Interval history: Patient was seen. She is asleep on dialysis. Resting comfortably. She was agitated earlier upon learning she might be discharged. Objective - Vital Signs Vital signs: Vital Signs Temp Pulse Resp BP Pulse Ox 12/08/17 12:05 148/78 12/08/17 11:50 165/78 12/08/17 11:35 174/68 12/08/17 11:20 176/68 12/08/17 11:05 177/73 12/08/17 10:50 166/59 12/08/17 10:35 169/67 12/08/17 10:20 178/79 12/08/17 10:05 145/65 12/08/17 09:50 168/65 12/08/17 09:35 156/73 12/08/17 09:20 97.0 F L 20 158/73 12/08/17 06:46 98.1 F 93 18 177/76 95 12/08/17 04:21 97.9 F 96 18 181/77 98 12/08/17 01:06 20 96 12/08/17 00:42 98.1 F 99 20 175/71 96 12/07/17 20:26 98.1 F 72 20 165/72 97 12/07/17 15:46 16 92 12/07/17 15:16 98.1 F 89 16 146/66 90 Intake and Output 12/07/17 12/08/17 12/08/17 23:59 07:59 15:59 Intake Total 600 / 600 Balance 600 / 600 Intake: Oral 0 / 0 Intake, Rinseback and Flushes 600 / 600 Other: Weight 50.984 kg 50.984 kg Hemodialysis Net Fluid Removed 2024 (mL) Patient Weight 12/08/17 23:59 Weight 50.984 kg - General Appearance General appearance: Present: well-developed, chronically ill, frail EENT: Present: ATNC Neck: Present: supple Cardiology: Present: regular rate - Lab 12/08/17 04:45 12/08/17 04:45 Most recent lab results Calcium 7.2 mg/dL (8.6-10.3) L 12/08/17 04:45 Phosphorus 5.0 mg/dL (2.7-4.5) H 11/25/17 05:00 Magnesium 1.5 mg/dL (1.6-2.6) L 11/25/17 05:00 - VTE Documentation of Mechanical Device: Intermittent pneumatic compression device Consult Discharge Plan - Plan Referrals: Na Johansen SADDLE STITCH OPERATOR [Primary Care Provider] - 12/01/17 1:00 pm (Please follow up as schedule...)
[2017-12-08] MEDS ORDERED: 0.9 % Sodium Chloride 1,000 ML ONE (12:51)
[2017-12-08] MEDS: Nicotine 21 MG PATCH.TD24 TD SCH (13:04)
[2017-12-08] MEDS: *HR* LORazepam 0.5 MG TABLET PO PRN (13:04)
[2017-12-08] MEDS: *HR* Acetylcysteine 20% 600 MG/3 ML ORAL SYRINGE PO SCH ×2 (13:05→21:30)
[2017-12-08] MEDS: Fluticasone Propionate Nasal 50 MCG/SPRAY BOTTLE NS SCH (13:08)
[2017-12-08] MEDS: *HR* Promethazine 25 MG/ML VIAL IVP PRN ×2 (13:23→21:28)
[2017-12-08] MEDS: Fluconazole 400 MG/200 ML 400 MG/200 ML BAG IVPB SCH (18:25)
[2017-12-08 18:44] LABS: Hematocrit 23.6 % (35.3-44.9); Hemoglobin 7.2 g/dL (11.5-15.4); Immature Granulocytes % 0.5 % (0-4); Immature Platelets 5.6 % (1.1-6.1); Lymphocytes % 9.8 %; Mean Corpuscular HGB Conc 30.5 g/dL (31.6-35.5); Mean Corpuscular Volume 95.2 fL (83.0-100.0); Mean Platelet Volume 11.1 fL (9.4-12.4); Monocytes % 4.4 %; Red Blood Count 2.48 M/mcL (3.82-4.97); Red Cell Distribution Width 15.6 % (11.5-14.5); Segmented Neutrophils % 84.6 %
[2017-12-08 18:45] LABS: Basophils % 0.2 %; Eosinophils % 0.5 %; Lymphocytes # 0.4 K/mcL (0.6-4.6); Monocytes # 0.2 K/mcL (0.0-1.3); Neutrophils # 3.6 K/mcL (1.6-8.9); Nucleated Red Blood Cells 0.7 /100 WBC (0)
[2017-12-08 18:48] LABS: Platelet Count 60 K/mcL (140-400)
[2017-12-08 19:02] LABS: Calcium 7.7 mg/dL (8.6-10.3); Magnesium 1.5 mg/dL (1.6-2.6); Potassium 4.1 mEq/L (3.5-5.1)
[2017-12-09] MEDS: *HR* OxyCODONE Immed Rel 5 MG TABLET PO PRN ×5 (00:40→22:26)
[2017-12-09] MEDS: Ondansetron 4 MG/2 ML VIAL IVP PRN ×3 (00:41→16:57)
[2017-12-09] MEDS: predniSONE 20 MG TABLET PO SCH (02:56)
[2017-12-09 04:39] LABS: Hemoglobin 7.2 g/dL (11.5-15.4); Mean Corpuscular Hemoglobin 28.9 pg (28.0-33.3); Mean Corpuscular Volume 96.4 fL (83.0-100.0); Mean Platelet Volume 11.6 fL (9.4-12.4); Red Blood Count 2.49 M/mcL (3.82-4.97); Red Cell Distribution Width 15.4 % (11.5-14.5)
[2017-12-09 04:41] LABS: Platelet Count 65 K/mcL (140-400)
[2017-12-09] MEDS: Ipratropium/Albuterol Neb 3 ML IH PRN (04:49)
[2017-12-09 04:51] LABS: ABG Base Excess 6 mEq/L (-2 to 3); ABG HCO3 32 mEq/L (21-27); ABG Oxygen Saturation 96 % (95-98); ABG PCO2 58 mmHg (35-45); ABG PH 7.35 pH Units (7.32-7.45); ABG PO2 92 mmHg (85-104); ABG TCO2 34 mEq/L (20-26)
[2017-12-09 05:12] LABS: Calcium 7.6 mg/dL (8.6-10.3); Potassium 4.1 mEq/L (3.5-5.1)
[2017-12-09] MEDS: *HR* Promethazine 25 MG/ML VIAL IVP PRN ×2 (06:06→22:28)
[2017-12-09] MEDS: Nicotine 21 MG PATCH.TD24 TD SCH (08:52)
[2017-12-09] MEDS: *HR* Acetylcysteine 20% 600 MG/3 ML ORAL SYRINGE PO SCH ×2 (08:53→22:26)
[2017-12-09] MEDS: predniSONE 10 MG TABLET PO SCH (08:53)
[2017-12-09] MEDS: Calcium Acetate 667 MG CAPSULE PO SCH ×3 (08:53→16:57)
--- NOTE | 2017-12-09 10:10 | Nephrology Progress Note ---
Date of Encounter: 12/09/17 Time of Encounter: 10:07 - Assessment and Plan (1) ESRD (end stage renal disease) on dialysis Current Visit: No Status: Chronic Plan for HD tomorrow Continue to use 2.5 Ca+ bath for low calcium Continue renal diet Continue strict I/Os Avoid nephrotoxins if possible (2) Anemia in CKD (chronic kidney disease) Current Visit: No Status: Chronic Hgb 7.2 Goal hgb 10-11 Transfuse per parameters Qualifiers: Chronic kidney disease stage: on chronic dialysis Qualified Code(s): N18.6 - End stage renal disease; D63.1 - Anemia in chronic kidney disease; D63.1 - Anemia in chronic kidney disease; Z99.2 - Dependence on renal dialysis; Z99.2 - Dependence on renal dialysis; Z99.2 - Dependence on renal dialysis; Z99.2 - Dependence on renal dialysis (3) Hypocalcemia Current Visit: No Status: Acute Ca+ 7.6 Ongoing chronic hypocalcemia Will continue higher Ca+ bath of 2.5 in dialysis Continue Ergocalciferol Subjective Principal diagnosis: hypoxic respiratiory failure 2/2 COPD exacerbation 2/2 PNA Interval history: Patient seen and examined. Lying in bed watching TV, has eaten over half her breakfast. Objective - Vital Signs Vital signs: Vital Signs Temp Pulse Resp BP Pulse Ox 12/09/17 08:25 98.2 F 88 20 145/63 89 12/09/17 06:20 98.3 F 70 20 156/71 94 12/09/17 06:15 22 94 12/09/17 04:49 16 99 12/09/17 01:30 98 F 90 24 158/65 100 12/08/17 21:55 98.2 F 93 22 151/64 99 12/08/17 18:45 16 159/67 96 12/08/17 15:42 99.4 F 96 16 159/67 96 12/08/17 13:47 20 95 12/08/17 13:03 98.1 F 20 161/74 12/08/17 12:50 154/62 12/08/17 12:35 154/68 12/08/17 12:25 161/62 12/08/17 12:10 148/78 12/08/17 11:50 165/78 12/08/17 11:35 174/68 12/08/17 11:20 176/68 12/08/17 11:05 177/73 12/08/17 10:50 166/59 12/08/17 10:35 169/67 12/08/17 10:20 178/79 Intake and Output 12/08/17 12/09/17 12/09/17 23:59 07:59 15:59 Intake Total 240 / 240 Output Total 0 / 0 Balance 240 / 240 Intake: Oral 240 / 240 Output: Urine 0 / 0 Other: Weight 53.6 kg Patient Weight 12/09/17 23:59 Weight 53.6 kg - General Appearance General appearance: Present: cachectic, chronically ill, frail EENT: Present: ATNC, mucous membranes moist, hearing intact, vision intact Neck: Present: supple Respiratory: Present: course breath sounds (better than her normal) Cardiology: Present: no edema, normal S1, normal S2 Dialysis Vascular Access: Arteriovenous Fistula Gastrointestinal: Present: no tenderness, no guarding Integumentary: Present: warm and dry Neurologic: Present: alert and oriented x3 Psychiatric: Present: mood/affect appropriate, cooperative - Lab 12/09/17 04:10 12/09/17 04:10 Most recent lab results ABG pH 7.35 pH Units (7.32-7.45) 12/09/17 04:48 ABG pCO2 58 mmHg (35-45) H 12/09/17 04:48 ABG pO2 92 mmHg (85-104) 12/09/17 04:48 ABG HCO3 32 mEq/L (21-27) H 12/09/17 04:48 ABG O2 Saturation 96 % (95-98) 12/09/17 04:48 Calcium 7.6 mg/dL (8.6-10.3) L 12/09/17 04:10 Phosphorus 5.0 mg/dL (2.7-4.5) H 11/25/17 05:00 Magnesium 1.5 mg/dL (1.6-2.6) L 12/08/17 18:30 - VTE Documentation of Mechanical Device: Intermittent pneumatic compression device Consult Discharge Plan - Plan Referrals: Na Johansen, CHEMICAL RECLAMATION EQUIPMENT OPERATOR [Primary Care Provider] - 12/01/17 1:00 pm (Please follow up as schedule...)
[2017-12-09] MEDS: Fluticasone Propionate Nasal 50 MCG/SPRAY BOTTLE NS SCH (10:26)
--- NOTE | 2017-12-09 11:26 | Infectious Disease Progress No ---
Date of Encounter: 12/09/17 Time of Encounter: 11:23 - Assessment and Plan (1) Sepsis Current Visit: Yes Status: Resolved Severe sepsis on admission. The patient had two SIRS criteria with hypotension responsive to IV fluids. Likely secondary to fungemia and PNA. Resolved. The patient has been afebrile. Hypotension has resolved. Tachycardia has resolved. Peripheral blood cultures drawn 11/14/17 were positive 2/2 for Kelsey lusitaniae. Additional peripheral fungal blood culture drawn 11/16/17 is positive as well. Peripheral blood cultures drawn 11/17/16 were negative. A-port blood cultures drawn 11/17/17 were positive. Repeat blood cultures x 2 sets drawn 11/27/17 are negative. Qualifiers: Sepsis type: sepsis due to unspecified organism Qualified Code(s): A41.9 - Sepsis, unspecified organism (2) Fungemia Current Visit: Yes Status: Acute Causative organism Kelsey lusitiniae. Source unclear, but the patient was recently on TPN given through her a-port. Her a-port was removed 11/18/17. Peripheral blood cultures drawn 11/14/17 were positive 2/2. Additional peripheral fungal blood culture drawn 11/16/17 is positive as well. No blood cultures were drawn from the patient's a-port before antifungals were started. Repeat blood cultures x 2 sets from the a-port are positive and x2 sets from a peripheral stick drawn 11/17/17 are negative. Additional blood cultures drawn 11/27/17 are NGTD x 2 sets. Continue fluconazole, 400mg IV daily on HD days only. Treat through 12/15/17. Opthalmology evaluation noted and appreciated. No endopthalmitis. Repeat LFTs normal. Duration of treatment depends on the clinical picture. Await repeat CT scan results. Monitor CBC and LFTs while on antifungals. (3) Cavitary lesion of lung Current Visit: Yes Status: Acute CTA of the chest shows new when compared to previous examination (Oct 2017) multiple focal areas of consolidation within the periphery of the lungs, some with focal cavitation. Per radiology, given the rapid development, septic emboli are primarily considered. In addition, there are innumerable punctate centrilobular tree-in-bud ground-glass nodules that have an inflammatory/ infectious appearance, likely related related to infectious bronchiolitis, but could also be hematogenous as well. CT scan reviewed with Pulmonology team. Etiology unclear: fungemia vs. other. No CT scan obtained during this hospitalization to tell us if these lesions were there on admission or not. Pulmonology recommendations noted and appreciated. Status post bronchoscopy 11/28. Endoscopy report reviewed. Minimal secretions noted. No mucous plugs. BAL of the RML grew MDRO E. cloacae. MHT negative for CRE. Patient remains stable off antibiotics. Continue antifungals as above. Fungal serologies noted. Fungitell positive. BAL Aspergillus galactomannan positive, but serum negative. BAL pathology negative for fungal elements or malignancy. Discussed with pulmonology. No clinical picture indicates invasive infection: no new worsening cough, shortness of breath is at baseline, afebrile , does not appear toxic. She has been on and off steroids during her hospitalization, but she is not chronically immunosuppressed. Bronch really did not look impressive per pulmonology and the pulmonary team does not believe that the patient has invasive aspergillosis. Also reviewed [facility] specimen clinical interpretation website and Histoplasma may cross-react with the Aspergillus antigen assay, leading to false positive test result. At this point, we will not broaden antifungal coverage to Voriconazole. Check Aspergillus IgE. Repeat CT scan of the chest done this morning is pending. Discussed with pulmonology. Bronchiolitis changes are worse, but cavitary nodules minimally better. As for the Enterobacter cloace, not sure if this is a true infection vs. colonization. Given that the patient's repeat CT scan is not changed much, will start IV Bactrim x 14 days. Will request pharmacy's help with dosing for her HD schedule. Continue droplet precautions. (4) Pneumonia Current Visit: Yes Status: Suspected Location: Bilaterally. Causative organism unclear, but possible viral. RIP positive for HSV and Coronavirus. Previous sputum cultures positive for S. maltophilia, PSEA, and E. coli. CXR showed patchy airspace opacities bilaterally, more pronounced in the right lung base. Previously completed a 7 day course of Levaquin and 8 days of Zosyn. Review of the medical record shows that the patient has had multiple recurrences of PNA over the past six months. Pulmonology consulted. Status post bronchoscopy 11/28/17. Endoscopy report reviewed. Minimal secretions. RML BAL shows MDRO E. cloacae (not CRE). Given that the patient's CT scan is not much improved, will start IV Bactrim. Will ask pharmacy to assist with dosing for the patient's ESRD. Non-candidal yeast species noted on BAL. Final ID pending. Continue fluconazole as above. Qualifiers: Pneumonia type: due to unspecified organism Laterality: right Lung location: lower lobe of lung Qualified Code(s): J18.1 - Lobar pneumonia, unspecified organism (5) Bicytopenia Current Visit: No Status: Chronic Continues to have anemia and thrombocytopenia. Leukopenia has resolved. Continue trend. Likely secondary to ESRD. Further workup and management per the primary team. (6) Chest pain Current Visit: Yes Status: Acute Appears musculoskeletal in origin. Likely secondary to PNA and chostochondritis. Troponin elevated likely secondary to demand ischemia from ESRD. Further workup and management per the primary team. Qualifiers: Chest pain type: unspecified Qualified Code(s): R07.9 - Chest pain, unspecified (7) Elevated troponin Current Visit: Yes Status: Acute Likely chronic secondary to CKD. EKG shows no acute changes. Further workup and management per the primary team. (8) Nausea and vomiting Current Visit: No Status: Chronic Likely secondary to short gut syndrome. Management per the primary team. Qualifiers: Vomiting type: unspecified Vomiting Intractability: non-intractable Qualified Code(s): R11.2 - Nausea with vomiting, unspecified (9) Abdominal pain Current Visit: No Status: Chronic Chronic. Further workup and management per the primary team. Qualifiers: Abdominal location: lower abdomen, unspecified Qualified Code(s): R10.30 - Lower abdominal pain, unspecified (10) Anemia in chronic kidney disease Current Visit: Yes Status: Chronic Likely multifactorial: poor nutrition + anemia of CKD. Management per the primary and nephrology teams. Qualifiers: Chronic kidney disease stage: on chronic dialysis Qualified Code(s): N18.6 - End stage renal disease; D63.1 - Anemia in chronic kidney disease; Z99.2 - Dependence on renal dialysis (11) COPD (chronic obstructive pulmonary disease) Current Visit: No Status: Chronic Management per the primary and pulmonology teams. Qualifiers: COPD type: emphysema Emphysema type: panlobular Qualified Code(s): J43.1 - Panlobular emphysema (12) ESRD (end stage renal disease) on dialysis Current Visit: Yes Status: Chronic Nephrology consulted and following. 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 Recently started on TPN, but the patient could not tolerate. Likely contributing to the patient's poor nutritional status. Management per the primary team. (14) Tobacco abuse Current Visit: Yes Status: Chronic - Subjective Interval history: Patient seen and examined. No acute events noted overnight. Patient sleeping quietly upon my entrance. Reports pain in her entire chest, worse with deep cough or inspiration. She reports moist nonproductive cough. She does not appear to be in any acute distress. She reports chronic nausea and vomiting with by mouth intake, but states she was able to eat some of her breakfast this morning. She reports liquid stool from her colostomy. She denies blood from her urostomy or colostomy. She denies oral thrush or new skin lesions. She denies fevers, chills, or rigors, but states she is always cold. Sates she thinks she will feel better once she gets a bath and has her ostomy bags changed. Infect Dis PN-Objective Data - Labs CBC & Chem 7: 12/10/17 02:40 12/10/17 02:40 Labs: Laboratory Results - last 24 hr 12/08/17 12/08/17 12/09/17 18:30 18:30 04:10 WBC 4.3 4.1 L RBC 2.48 L 2.49 L Hgb 7.2 L 7.2 L Hct 23.6 L 24.0 L MCV 95.2 96.4 MCH 29.0 28.9 MCHC 30.5 L 30.0 L RDW 15.6 H 15.4 H Plt Count 60 L 65 L MPV 11.1 11.6 Immature Gran % 0.5 Seg Neutrophils % 84.6 Lymphocytes % 9.8 Monocytes % 4.4 Eosinophils % 0.5 Basophils % 0.2 Neutrophils # 3.6 Lymphocytes # 0.4 L Monocytes # 0.2 Eosinophils # 0.0 Basophils # 0.0 Nucleated RBCs/100 WBC 0.7 H Immature Plt Fraction 5.6 Sample Site ABG pH ABG pCO2 ABG pO2 ABG HCO3 ABG Total CO2 ABG O2 Saturation ABG Base Excess Inspired O2 Sodium 138 Potassium 4.1 Chloride 101 Carbon Dioxide 32 H BUN 19 Creatinine 3.49 H Est GFR ( Amer) 16 L Est GFR (Non-Af Amer) 13 L BUN/Creatinine Ratio 5 L Glucose 133 H Calculated Osmolality 290 Calcium 7.7 L Magnesium 1.5 L 12/09/17 12/09/17 04:10 04:48 WBC RBC Hgb Hct MCV MCH MCHC RDW Plt Count MPV Immature Gran % Seg Neutrophils % Lymphocytes % Monocytes % Eosinophils % Basophils % Neutrophils # Lymphocytes # Monocytes # Eosinophils # Basophils # Nucleated RBCs/100 WBC Immature Plt Fraction Sample Site R Radial ABG pH 7.35 ABG pCO2 58 H ABG pO2 92 ABG HCO3 32 H ABG Total CO2 34 H ABG O2 Saturation 96 ABG Base Excess 6 H Inspired O2 32.0 Sodium 140 Potassium 4.1 Chloride 102 Carbon Dioxide 31 H BUN 22 Creatinine 4.09 H Est GFR ( Amer) 13 L Est GFR (Non-Af Amer) 11 L BUN/Creatinine Ratio 5 L Glucose 79 Calculated Osmolality 292 Calcium 7.6 L Magnesium Cultures: Cultures 12/06/17 09:07 Anaerobic Culture - Preliminary Chest At this time, no anaerobic growth is present. The culture will be finalized after 5 days of incubation. 12/06/17 09:07 Wound Culture - Final Chest No growth. 11/28/17 13:00 Gram Stain - Final Right Middle Lobe Lung Respiratory Culture - Final Enterobacter cloacae MDRO 11/28/17 13:00 Legionella Culture - Final Right Middle Lobe Lung 11/27/17 09:38 Blood Culture - Final Peripheral Venipuncture No growth. 11/27/17 08:37 Blood Culture - Final Peripheral Venipuncture No growth. 11/28/17 13:00 Fungal Culture - Preliminary Right Middle Lobe Lung Kelsey species, not ablicans 11/27/17 12:10 Fungal Culture - Final Left Arm No growth. 11/28/17 13:00 Acid Fast Stain - Final Right Middle Lobe Lung 11/16/17 05:13 Blood Fungal Culture - Final Peripheral Venipuncture No growth. 11/19/17 07:30 Blood Culture - Final Port System No growth. 11/19/17 07:35 Blood Culture - Final Port System No growth. 11/17/17 17:31 Blood Culture - Final Peripheral Venipuncture No growth. 11/17/17 17:31 Blood Culture - Final Peripheral Venipuncture No growth. 11/19/17 10:10 Catheter Tip Culture - Final Intravenous or Arterial Cath No growth. 11/17/17 18:09 Blood Culture - Final Port System Kelsey lusitaniae 11/16/17 05:05 Blood Fungal Culture - Final Peripheral Venipuncture Kelsey lusitaniae Serology 11/30/17 11/28/17 11/28/17 Range/Units 18:00 13:00 13:00 Fluid Source RML BAL Fluid Volume 25 mL Fluid Appearance Cloudy A (Clear) Fluid RBC 0.002 (No Ref Range) M/mcL Fld Tot Nucleated Cell 1663 (No Ref Range) TNC/mcL Fluid Seg Neutrophil % 18.0 % Fld Band Neutrophil % 0.0 % Fluid Lymphocytes % 34.0 % Fluid Monocytes % 1.0 % Fluid Eosinophils % 0.0 % Fluid Basophils % 0.0 % Fluid Other Cells % 47.0 % BAL A. galactomannan Ag POSITIVE A (Negative) Stool Occult Blood Negative (Negative) A. baumannii (PCR) (Not Detect) Chlamy pneumoniae PCR (Not Detect) Adenovirus (PCR) (Not Detect) Blastomyces Ab Comp Fx B. pertussis DNA (PCR) (Not Detect) B.parapertussis DNA PCR (Not Detect) Kelsey albicans (PCR) (Not Detect) C. glabrata (PCR) (Not Detect) C. krusei (PCR) (Not Detect) C. parapsilosis (PCR) (Not Detect) C. tropicalis (PCR) (Not Detect) Coronavirus OC43 (PCR) (Not Detect) Coronavirus HKU1 (PCR) (Not Detect) Coronavirus 229E (PCR) (Not Detect) Coronavirus NL63 (PCR) (Not Detect) Enterobacteriac sp PCR (Not Detect) E. cloacae complex PCR (Not Detect) Enterococcus sp PCR (Not Detect) E. coli (PCR) (Not Detect) H. influenzae (PCR) (Not Detect) Histoplasma Antigen U/mL Histoplasma Ag Interp (Negative) Human Metapneumovir PCR (Not Detect) Influenza A (H1) PCR (Not Detect) Influ A (H1N1/09) PCR (Not Detect) Influenza A (H3) PCR (Not Detect) Influenza Type A (PCR) Influenza A Untype (PCR) (Not Detect) Influenza Type B (PCR) (Not Detect) Klebsiella oxytoca PCR (Not Detect) Klebsiella pneumoniae (Not Detect) List. monocytogenes PCR (Not Detect) M.pneumoniae DNA (PCR) (Not Detect) N. meningitidis (PCR) (Not Detect) Parainfluenza 1 (PCR) (Not Detect) Parainfluenza 2 (PCR) (Not Detect) Parainfluenza 3 (PCR) (Not Detect) Parainfluenza 4 (PCR) (Not Detect) A. galactomannan Ag (Negative) A. galactomannan Ag Idx Proteus species (PCR) (Not Detect) RSV (PCR) (Not Detect) Entero/Rhino (PCR) (Not Detect) Serratia marcescens PCR (Not Detect) Staphylococcus sp PCR (Not Detect) Staph aureus (PCR) (Not Detect) mecA-Methicil Res Gene (Not Detect) Streptococcus sp PCR (Not Detect) Group A Strep DNA (Not Detect) Group B Strep (PCR) (Not Detect) Strep pneumoniae (PCR) (Not Detect) P. aeruginosa (PCR) (Not Detect) Yony/B-Vanco Res Genes (Not Detect) KPC (blaKPC) Detect PCR (Not Detect) Beta-(1,3)-D-Glucan pg/mL B-(1,3)-D-Glucan Intrp (Negative) 11/28/17 11/28/17 11/28/17 Range/Units 13:00 05:30 05:30 Fluid Source NOT PROVIDED Fluid Volume mL Fluid Appearance (Clear) Fluid RBC (No Ref Range) M/mcL Fld Tot Nucleated Cell (No Ref Range) TNC/mcL Fluid Seg Neutrophil % % Fld Band Neutrophil % % Fluid Lymphocytes % % Fluid Monocytes % % Fluid Eosinophils % % Fluid Basophils % % Fluid Other Cells % % BAL A. galactomannan Ag (Negative) Stool Occult Blood (Negative) A. baumannii (PCR) (Not Detect) Chlamy pneumoniae PCR (Not Detect) Adenovirus (PCR) (Not Detect) Blastomyces Ab Comp Fx B. pertussis DNA (PCR) (Not Detect) B.parapertussis DNA PCR (Not Detect) Kelsey albicans (PCR) (Not Detect) C. glabrata (PCR) (Not Detect) C. krusei (PCR) (Not Detect) C. parapsilosis (PCR) (Not Detect) C. tropicalis (PCR) (Not Detect) Coronavirus OC43 (PCR) (Not Detect) Coronavirus HKU1 (PCR) (Not Detect) Coronavirus 229E (PCR) (Not Detect) Coronavirus NL63 (PCR) (Not Detect) Enterobacteriac sp PCR (Not Detect) E. cloacae complex PCR (Not Detect) Enterococcus sp PCR (Not Detect) E. coli (PCR) (Not Detect) H. influenzae (PCR) (Not Detect) Histoplasma Antigen U/mL Histoplasma Ag Interp (Negative) Human Metapneumovir PCR (Not Detect) Influenza A (H1) PCR (Not Detect) Influ A (H1N1/09) PCR (Not Detect) Influenza A (H3) PCR (Not Detect) Influenza Type A (PCR) DETECTED A Influenza A Untype (PCR) (Not Detect) Influenza Type B (PCR) NOT DETECTED (Not Detect) Klebsiella oxytoca PCR (Not Detect) Klebsiella pneumoniae (Not Detect) List. monocytogenes PCR (Not Detect) M.pneumoniae DNA (PCR) (Not Detect) N. meningitidis (PCR) (Not Detect) Parainfluenza 1 (PCR) (Not Detect) Parainfluenza 2 (PCR) (Not Detect) Parainfluenza 3 (PCR) (Not Detect) Parainfluenza 4 (PCR) (Not Detect) A. galactomannan Ag NEGATIVE (Negative) A. galactomannan Ag Idx 0.06 Proteus species (PCR) (Not Detect) RSV (PCR) DETECTED A (Not Detect) Entero/Rhino (PCR) (Not Detect) Serratia marcescens PCR (Not Detect) Staphylococcus sp PCR (Not Detect) Staph aureus (PCR) (Not Detect) mecA-Methicil Res Gene (Not Detect) Streptococcus sp PCR (Not Detect) Group A Strep DNA (Not Detect) Group B Strep (PCR) (Not Detect) Strep pneumoniae (PCR) (Not Detect) P. aeruginosa (PCR) (Not Detect) Yony/B-Vanco Res Genes (Not Detect) KPC (blaKPC) Detect PCR (Not Detect) Beta-(1,3)-D-Glucan >500 pg/mL B-(1,3)-D-Glucan Intrp POSITIVE A (Negative) 11/28/17 11/18/17 11/17/17 Range/Units 05:30 08:41 18:09 Fluid Source Fluid Volume mL Fluid Appearance (Clear) Fluid RBC (No Ref Range) M/mcL Fld Tot Nucleated Cell (No Ref Range) TNC/mcL Fluid Seg Neutrophil % % Fld Band Neutrophil % % Fluid Lymphocytes % % Fluid Monocytes % % Fluid Eosinophils % % Fluid Basophils % % Fluid Other Cells % % BAL A. galactomannan Ag (Negative) Stool Occult Blood (Negative) A. baumannii (PCR) Not Detected (Not Detect) Chlamy pneumoniae PCR Not Detected (Not Detect) Adenovirus (PCR) Not Detected (Not Detect) Blastomyces Ab Comp Fx SEE BELOW B. pertussis DNA (PCR) Not Detected (Not Detect) B.parapertussis DNA PCR Not Detected (Not Detect) Kelsey albicans (PCR) Not Detected (Not Detect) C. glabrata (PCR) Not Detected (Not Detect) C. krusei (PCR) Not Detected (Not Detect) C. parapsilosis (PCR) Not Detected (Not Detect) C. tropicalis (PCR) Not Detected (Not Detect) Coronavirus OC43 (PCR) Not Detected (Not Detect) Coronavirus HKU1 (PCR) DETECTED A (Not Detect) Coronavirus 229E (PCR) Not Detected (Not Detect) Coronavirus NL63 (PCR) Not Detected (Not Detect) Enterobacteriac sp PCR Not Detected (Not Detect) E. cloacae complex PCR Not Detected (Not Detect) Enterococcus sp PCR Not Detected (Not Detect) E. coli (PCR) Not Detected (Not Detect) H. influenzae (PCR) Not Detected (Not Detect) Histoplasma Antigen <2.0 U/mL Histoplasma Ag Interp NEGATIVE (Negative) Human Metapneumovir PCR Not Detected (Not Detect) Influenza A (H1) PCR Not Detected (Not Detect) Influ A (H1N1/09) PCR Not Detected (Not Detect) Influenza A (H3) PCR Not Detected (Not Detect) Influenza Type A (PCR) Influenza A Untype (PCR) Not Detected (Not Detect) Influenza Type B (PCR) Not Detected (Not Detect) Klebsiella oxytoca PCR Not Detected (Not Detect) Klebsiella pneumoniae Not Detected (Not Detect) List. monocytogenes PCR Not Detected (Not Detect) M.pneumoniae DNA (PCR) Not Detected (Not Detect) N. meningitidis (PCR) Not Detected (Not Detect) Parainfluenza 1 (PCR) Not Detected (Not Detect) Parainfluenza 2 (PCR) Not Detected (Not Detect) Parainfluenza 3 (PCR) Not Detected (Not Detect) Parainfluenza 4 (PCR) Not Detected (Not Detect) A. galactomannan Ag (Negative) A. galactomannan Ag Idx Proteus species (PCR) Not Detected (Not Detect) RSV (PCR) DETECTED A (Not Detect) Entero/Rhino (PCR) Not Detected (Not Detect) Serratia marcescens PCR Not Detected (Not Detect) Staphylococcus sp PCR Not Detected (Not Detect) Staph aureus (PCR) Not Detected (Not Detect) mecA-Methicil Res Gene N/A (Not Detect) Streptococcus sp PCR Not Detected (Not Detect) Group A Strep DNA Not Detected (Not Detect) Group B Strep (PCR) Not Detected (Not Detect) Strep pneumoniae (PCR) Not Detected (Not Detect) P. aeruginosa (PCR) Not Detected (Not Detect) Yony/B-Vanco Res Genes N/A (Not Detect) KPC (blaKPC) Detect PCR N/A (Not Detect) Beta-(1,3)-D-Glucan pg/mL B-(1,3)-D-Glucan Intrp (Negative) 11/17/17 Range/Units 17:31 Fluid Source Fluid Volume mL Fluid Appearance (Clear) Fluid RBC (No Ref Range) M/mcL Fld Tot Nucleated Cell (No Ref Range) TNC/mcL Fluid Seg Neutrophil % % Fld Band Neutrophil % % Fluid Lymphocytes % % Fluid Monocytes % % Fluid Eosinophils % % Fluid Basophils % % Fluid Other Cells % % BAL A. galactomannan Ag (Negative) Stool Occult Blood (Negative) A. baumannii (PCR) (Not Detect) Chlamy pneumoniae PCR (Not Detect) Adenovirus (PCR) (Not Detect) Blastomyces Ab Comp Fx B. pertussis DNA (PCR) (Not Detect) B.parapertussis DNA PCR (Not Detect) Kelsey albicans (PCR) (Not Detect) C. glabrata (PCR) (Not Detect) C. krusei (PCR) (Not Detect) C. parapsilosis (PCR) (Not Detect) C. tropicalis (PCR) (Not Detect) Coronavirus OC43 (PCR) (Not Detect) Coronavirus HKU1 (PCR) (Not Detect) Coronavirus 229E (PCR) (Not Detect) Coronavirus NL63 (PCR) (Not Detect) Enterobacteriac sp PCR (Not Detect) E. cloacae complex PCR (Not Detect) Enterococcus sp PCR (Not Detect) E. coli (PCR) (Not Detect) H. influenzae (PCR) (Not Detect) Histoplasma Antigen U/mL Histoplasma Ag Interp (Negative) Human Metapneumovir PCR (Not Detect) Influenza A (H1) PCR (Not Detect) Influ A (H1N1/09) PCR (Not Detect) Influenza A (H3) PCR (Not Detect) Influenza Type A (PCR) Influenza A Untype (PCR) (Not Detect) Influenza Type B (PCR) (Not Detect) Klebsiella oxytoca PCR (Not Detect) Klebsiella pneumoniae (Not Detect) List. monocytogenes PCR (Not Detect) M.pneumoniae DNA (PCR) (Not Detect) N. meningitidis (PCR) (Not Detect) Parainfluenza 1 (PCR) (Not Detect) Parainfluenza 2 (PCR) (Not Detect) Parainfluenza 3 (PCR) (Not Detect) Parainfluenza 4 (PCR) (Not Detect) A. galactomannan Ag (Negative) A. galactomannan Ag Idx Proteus species (PCR) (Not Detect) RSV (PCR) (Not Detect) Entero/Rhino (PCR) (Not Detect) Serratia marcescens PCR (Not Detect) Staphylococcus sp PCR (Not Detect) Staph aureus (PCR) (Not Detect) mecA-Methicil Res Gene (Not Detect) Streptococcus sp PCR (Not Detect) Group A Strep DNA (Not Detect) Group B Strep (PCR) (Not Detect) Strep pneumoniae (PCR) (Not Detect) P. aeruginosa (PCR) (Not Detect) Yony/B-Vanco Res Genes (Not Detect) KPC (blaKPC) Detect PCR (Not Detect) Beta-(1,3)-D-Glucan 470 pg/mL B-(1,3)-D-Glucan Intrp POSITIVE A (Negative) - Impressions Impressions Chest CT 12/09/17 09:00 IMPRESSION: New small left pleural effusion. Developing mediastinal adenopathy. While 2 cavitary nodules within the right upper lobe have decreased size as compared to prior, the diffuse micronodular pattern within the lungs bilaterally has increased, suggestive of airways disseminated infection. Metastatic disease is not excluded in the appropriate clinical setting. Follow-up to resolution is recommended. D/ / Davis Zhang MD / Davis Zhang MD Interpreting Provider: Davis Zhang MD Exam - Constitutional Vitals: Temp Pulse Resp BP Pulse Ox 98.2 F 88 20 145/63 89 12/09/17 08:25 12/09/17 08:25 12/09/17 08:25 12/09/17 08:25 12/09/17 08:25 General appearance: cooperative, no acute distress, thin - Head Head exam: Present: atraumatic, normal inspection, normocephalic - Eye Eye exam: Present: EOMI, normal appearance, PERRL Pupils: Present: normal accommodation Additional comments: No subconjunctival hemorrhage noted. - ENT ENT exam: Present: mucous membranes moist - Neck Neck exam: Present: normal inspection - Respiratory Respiratory exam: Present: rhonchi (Throughout). Absent: rales, respiratory distress, wheezes, tachypnea - Cardiovascular Cardiovascular exam: Present: irregular rhythm. Absent: tachycardia - GI/Abdominal GI/Abdominal exam: Present: normal bowel sounds, soft, tenderness (generalized) . Absent: distended Additional comments: Urostomy noted to the RLQ with small amount of clear yellow urine. Colostomy noted to the LLQ with small amount of brown liquid stool noted. - Extremities Exam Extremities exam: Present: normal inspection. Absent: joint swelling, pedal edema, tenderness Additional comments: AV fistula noted to the LUE +/+. - Neurological Exam Neurological exam: Present: alert, oriented X3, no focal deficits - Psychiatric Psychiatric exam: Present: normal affect, normal mood - Skin Skin exam: Present: dry, intact, normal color, warm Additional comments: No endocarditis stigmata noted. - VTE Documentation of Mechanical Device: Intermittent pneumatic compression device Consult Discharge Plan - Plan Referrals: Na Johansen, MANAGER REGISTRATION [Primary Care Provider] - 12/01/17 1:00 pm (Please follow up as schedule...) - Attending Attestation I examined this patient and my medical decision-making was reviewed with the Resident Physician. I agree with the documented findings, disposition and treatment plan as described except to the extent set forth below. CT's reviewed and compared. very complex case will treat the MDRO Enterobacter with bactrim continue fluconazole to finish a 4 week course d/w pulmonary, they dont think this is dessiminated aspergillus
--- NOTE | 2017-12-09 17:06 | Internal Med Progress Note ---
Date of Encounter: 12/09/17 Time of Encounter: 09:50 - Assessment and plan (1) Cavitary lesion of lung Current Visit: Yes Status: Acute Assessment and plan: Patient has history of abnormal CT chest with multiple images showing diffuse tree-in-bud appearance of lung parenchyma suggestive of infection/inflammation along with cavitary lesions in upper lobe. Infectious diseases has been on board, initially decided not to treat for new infection as patient is clinically stable and has completed multiple courses of broad-spectrum antibiotics in the recent past. Repeat CT chest today shows improvement in cavitary lesions, persistent diffuse infectious/inflammatory process. ID follow-up noted, started patient on IV Bactrim. (2) Fungemia Current Visit: Yes Status: Acute Assessment and plan: Patient was discharged on total parenteral nutrition after her previous admission. 2 sets of peripheral blood cultures each from November 14 and grew Kelsey lusitaniae; blood cultures from November 17 are negative. One set of blood cultures from port system from November 17 due to Kelsey, repeat blood cultures from port system from November 19 onwards were negative. Patient was evaluated by ophthalmology-no evidence of endophthalmitis was appreciated. Infectious diseases on board, continue IV fluconazole. (3) Pneumonia Current Visit: Yes Status: Acute Assessment and plan: BAL from right middle lobe grew Enterobacter chloacae- MDRO, unclear clinical significance. Acid-fast stain negative. Preliminary fungal culture shows Kelsey species, not albicans. Repeat CT chest findings as above. Continue IV fluconazole and Bactrim has been added per infectious diseases. Continue supportive care and supplemental oxygen. Blood culture results as above. Qualifiers: Pneumonia type: due to unspecified organism Laterality: bilateral Lung location: lower lobe of lung Qualified Code(s): J18.9 - Pneumonia, unspecified organism (4) Sepsis Current Visit: Yes Status: Resolved Qualifiers: Sepsis type: sepsis due to unspecified organism Qualified Code(s): A41.9 - Sepsis, unspecified organism (5) COPD exacerbation Current Visit: Yes Status: Acute Assessment and plan: Patient has severe COPD with cachexia and malnutrition. She always has diffuse rhonchi. Not noted to be in respiratory distress today. Continues to require 3 -4 L/m supplemental oxygen via nasal cannula, probably new baseline. Continue as needed bronchodilators, parenteral steroids, inhaled corticosteroids. (6) Goals of care, counseling/discussion Current Visit: Yes Status: Acute Assessment and plan: Patient has guarded prognosis with multiple medical comorbidities. Communication at this time is difficult due to patient's hearing loss. However , patient is well known to me from her previous admissions; we have had multiple discussions with her, also involved palliative care team. She remains firm in her decision that she would like aggressive medical management even if it is futile. (7) Anemia in chronic kidney disease Current Visit: Yes Status: Chronic Qualifiers: Chronic kidney disease stage: on chronic dialysis Qualified Code(s): N18.6 - End stage renal disease; D63.1 - Anemia in chronic kidney disease; Z99.2 - Dependence on renal dialysis (8) Atrial fibrillation Current Visit: Yes Status: Chronic Qualifiers: Atrial fibrillation type: chronic Qualified Code(s): I48.2 - Chronic atrial fibrillation (9) ESRD (end stage renal disease) on dialysis Current Visit: Yes Status: Chronic Assessment and plan: Nephrology on board, patient is receiving regular hemodialysis sessions. (10) Hypothyroid Current Visit: Yes Status: Chronic Assessment and plan: Continue levothyroxine. Qualifiers: Hypothyroidism type: unspecified Qualified Code(s): E03.9 - Hypothyroidism , unspecified (11) Tobacco abuse Current Visit: Yes Status: Chronic Assessment and plan: Continues to be an active smoker when outpatient. Continue nicotine transdermal patch. (12) Acute respiratory failure with hypoxia Current Visit: Yes Status: Acute Assessment and plan: Patient will likely require home oxygen at discharge. - Subjective Interval history: Very hard of hearing, continues to watch television on high volume, however claims to not understand my conversation with her. Noted to have good appetite. Continues to ask if she has recurrent pneumonia and reports that her chest rattling has come back. - Constitutional Vitals: Temp Pulse Resp BP Pulse Ox 98.1 F 81 18 129/69 91 12/09/17 16:44 12/09/17 16:44 12/09/17 16:44 12/09/17 16:44 12/09/17 16:44 General appearance: Present: cachectic, A&O X 3 (Extremely hard of hearing), underweight, answers questions appropriately - Respiratory Respiratory exam: Present: CTAB (Bilateral coarse breath sounds), rhonchi ( Diffuse rhonchi and wheezing bilaterally), wheezes. Absent: accessory muscle use, rales - Cardiovascular Cardiovascular exam: Present: RRR, +S1, +S2, systolic murmur. Absent: diastolic murmur, gallop, rubs - GI/Abdominal GI/Abdominal exam: Present: normal bowel sounds, soft (Multiple areas of subcutaneous induration from previous abdominal surgeries. Colostomy in place.) , no peritoneal signs. Absent: distended, tenderness - Extremities Exam Extremities exam: Present: full ROM, warm, radial pulses palpable and symmetrical. Absent: calf tenderness, cyanotic, pedal edema - Neurological Exam Neurological exam: Present: CN II-XII intact, oriented X3, no focal deficits. Absent: pronater drift, facial droop, speech deficit Internal Medicine: Result - Labs CBC & Chem 7: 12/09/17 04:10 12/09/17 04:10 Labs: Short CBC 12/08/17 12/09/17 Range/Units 18:30 04:10 WBC 4.3 4.1 L (4.3-11.1) K/mcL Hgb 7.2 L 7.2 L (11.5-15.4) g/dL Hct 23.6 L 24.0 L (35.3-44.9) % Plt Count 60 L 65 L (140-400) K/mcL Neutrophils # 3.6 (1.6-8.9) K/mcL BMP 12/08/17 12/09/17 18:30 04:10 Sodium 138 140 Potassium 4.1 4.1 Chloride 101 102 Carbon Dioxide 32 H 31 H BUN 19 22 Creatinine 3.49 H 4.09 H Glucose 133 H 79 Calcium 7.7 L 7.6 L - ABG Interpretation ABG results: ABG ABG pH 7.35 pH Units (7.32-7.45) 12/09/17 04:48 ABG pCO2 58 mmHg (35-45) H 12/09/17 04:48 ABG pO2 92 mmHg (85-104) 12/09/17 04:48 ABG O2 Saturation 96 % (95-98) 12/09/17 04:48 PT/INR, D-dimer PT 16.2 Seconds (9.4-12.1) H 11/14/17 10:30 - Impressions Impressions Chest CT 12/09/17 09:00 IMPRESSION: New small left pleural effusion. Developing mediastinal adenopathy. While 2 cavitary nodules within the right upper lobe have decreased size as compared to prior, the diffuse micronodular pattern within the lungs bilaterally has increased, suggestive of airways disseminated infection. Metastatic disease is not excluded in the appropriate clinical setting. Follow-up to resolution is recommended. D/ / Davis Zhang MD / Davis Zhang MD Interpreting Provider: Davis Zhang MD - VTE Documentation of Mechanical Device: Intermittent pneumatic compression device Consult Discharge Plan - Plan Referrals: Na Johansen CNP [Primary Care Provider] - 12/01/17 1:00 pm (Please follow up as schedule...)
[2017-12-09] MEDS: D5 IVPB SCH (18:12)
[2017-12-09] MEDS: WATER IVPB SCH (18:12)
[2017-12-09] MEDS: SULFAMETHOXAZOLE IVPB SCH (18:12)
[2017-12-09] MEDS: TRIMETH IVPB SCH (18:12)
[2017-12-10] MEDS: *HR* OxyCODONE Immed Rel 5 MG TABLET PO PRN ×3 (02:32→20:35)
[2017-12-10] MEDS: Ondansetron 4 MG/2 ML VIAL IVP PRN ×3 (02:33→20:35)
[2017-12-10 02:46] LABS: Basophils % 0.3 %; Eosinophils % 1.2 %; Hematocrit 22.6 % (35.3-44.9); Hemoglobin 6.8 g/dL (11.5-15.4); Immature Granulocytes % 0.9 % (0-4); Immature Platelets 6.5 % (1.1-6.1); Lymphocytes # 0.8 K/mcL (0.6-4.6); Lymphocytes % 22.1 %; Mean Corpuscular HGB Conc 30.1 g/dL (31.6-35.5); Mean Corpuscular Hemoglobin 28.8 pg (28.0-33.3); Mean Corpuscular Volume 95.8 fL (83.0-100.0); Mean Platelet Volume 11.3 fL (9.4-12.4); Monocytes # 0.2 K/mcL (0.0-1.3); Monocytes % 4.9 %; Neutrophils # 2.4 K/mcL (1.6-8.9); Red Blood Count 2.36 M/mcL (3.82-4.97); Red Cell Distribution Width 15.5 % (11.5-14.5); Segmented Neutrophils % 70.6 %
[2017-12-10] MEDS: Ipratropium/Albuterol Neb 3 ML IH PRN ×2 (02:47→23:47)
[2017-12-10 02:52] LABS: Platelet Count 67 K/mcL (140-400)
[2017-12-10 03:33] LABS: Albumin 2.5 g/dL (3.5-5.7); Calcium 7.2 mg/dL (8.6-10.3); Phosphorous 5.1 mg/dL (2.7-4.5); Potassium 4.3 mEq/L (3.5-5.1)
[2017-12-10] MEDS: *HR* Promethazine 25 MG/ML VIAL IVP PRN (06:21)
[2017-12-10] MEDS: SULFAMETHOXAZOLE IVPB SCH ×2 (06:45→20:34)
[2017-12-10] MEDS: TRIMETH IVPB SCH ×2 (06:45→20:34)
[2017-12-10] MEDS: WATER IVPB SCH ×2 (06:45→20:34)
[2017-12-10] MEDS: D5 IVPB SCH ×2 (06:45→20:34)
[2017-12-10] MEDS ORDERED: 0.9 % Sodium Chloride 250 ML IVC PRN (08:02)
[2017-12-10] MEDS: Nicotine 21 MG PATCH.TD24 TD SCH (08:08)
[2017-12-10] MEDS: Calcium Acetate 667 MG CAPSULE PO SCH ×3 (08:09→17:24)
[2017-12-10] MEDS: Fluticasone Propionate Nasal 50 MCG/SPRAY BOTTLE NS SCH (08:09)
[2017-12-10] MEDS: *HR* Acetylcysteine 20% 600 MG/3 ML ORAL SYRINGE PO SCH ×2 (08:09→20:35)
[2017-12-10] MEDS: predniSONE 10 MG TABLET PO SCH (08:09)
[2017-12-10] MEDS ORDERED: 0.9 % Sodium Chloride 1,000 ML PRIME SCH (08:15)
--- NOTE | 2017-12-10 12:52 | Infectious Disease Progress No ---
Date of Encounter: 12/10/17 Time of Encounter: 12:50 - Assessment and Plan (1) Sepsis Current Visit: Yes Status: Resolved Severe sepsis on admission. The patient had two SIRS criteria with hypotension responsive to IV fluids. Likely secondary to fungemia and PNA. Resolved. The patient has been afebrile. Hypotension has resolved. Tachycardia has resolved. Peripheral blood cultures drawn 11/14/17 were positive 2/2 for Kelsey lusitaniae. Additional peripheral fungal blood culture drawn 11/16/17 is positive as well. Peripheral blood cultures drawn 11/17/16 were negative. A-port blood cultures drawn 11/17/17 were positive. Repeat blood cultures x 2 sets drawn 11/27/17 are negative. Qualifiers: Sepsis type: sepsis due to unspecified organism Qualified Code(s): A41.9 - Sepsis, unspecified organism (2) Fungemia Current Visit: Yes Status: Acute Causative organism Kelsey lusitiniae. Source unclear, but the patient was recently on TPN given through her a-port. Her a-port was removed 11/18/17. Peripheral blood cultures drawn 11/14/17 were positive 2/2. Additional peripheral fungal blood culture drawn 11/16/17 is positive as well. No blood cultures were drawn from the patient's a-port before antifungals were started. Repeat blood cultures x 2 sets from the a-port are positive and x2 sets from a peripheral stick drawn 11/17/17 are negative. Additional blood cultures drawn 11/27/17 are NGTD x 2 sets. Continue fluconazole, 400mg IV daily on HD days only. Treat through 12/15/17. Recommend keeping IV since the patient likely has poor absorption through the GI tract due to her SGS. Opthalmology evaluation noted and appreciated. No endopthalmitis. Repeat LFTs normal. Duration of treatment depends on the clinical picture. Await repeat CT scan results. Monitor CBC and LFTs while on antifungals. (3) Cavitary lesion of lung Current Visit: Yes Status: Acute CTA of the chest shows new when compared to previous examination (Oct 2017) multiple focal areas of consolidation within the periphery of the lungs, some with focal cavitation. Per radiology, given the rapid development, septic emboli are primarily considered. In addition, there are innumerable punctate centrilobular tree-in-bud ground-glass nodules that have an inflammatory/ infectious appearance, likely related related to infectious bronchiolitis, but could also be hematogenous as well. CT scan reviewed with Pulmonology team. Etiology unclear: fungemia vs. other. No CT scan obtained during this hospitalization to tell us if these lesions were there on admission or not. Pulmonology recommendations noted and appreciated. Status post bronchoscopy 11/28. Endoscopy report reviewed. Minimal secretions noted. No mucous plugs. BAL of the RML grew MDRO E. cloacae. MHT negative for CRE. Patient remains stable off antibiotics. Continue antifungals as above. Fungal serologies noted. Fungitell positive. BAL Aspergillus galactomannan positive, but serum negative. BAL pathology negative for fungal elements or malignancy. Discussed with pulmonology. No clinical picture indicates invasive infection: no new worsening cough, shortness of breath is at baseline, afebrile , does not appear toxic. She has been on and off steroids during her hospitalization, but she is not chronically immunosuppressed. Bronch really did not look impressive per pulmonology and the pulmonary team does not believe that the patient has invasive aspergillosis. Also reviewed [facility] specimen clinical interpretation website and Histoplasma may cross-react with the Aspergillus antigen assay, leading to false positive test result. At this point, we will not broaden antifungal coverage to Voriconazole. Check Aspergillus IgE.--> pending. Repeat CT scan of the chest done this morning is pending. Discussed with pulmonology. Bronchiolitis changes are worse, but cavitary nodules minimally better. As for the Enterobacter cloace, not sure if this is a true infection vs. colonization. Given that the patient's repeat CT scan is not changed much, will start IV Bactrim x 14 days. Will request pharmacy's help with dosing for her HD schedule. Recommend IV since the patient's GI absorption is likely minimal due to her SGS. Continue droplet precautions. Will plan on repeating CT scan once the patient completes IV antibiotics. (4) Pneumonia Current Visit: Yes Status: Suspected Location: Bilaterally. Causative organism unclear, but possible viral. RIP positive for HSV and Coronavirus. Previous sputum cultures positive for S. maltophilia, PSEA, and E. coli. CXR showed patchy airspace opacities bilaterally, more pronounced in the right lung base. Previously completed a 7 day course of Levaquin and 8 days of Zosyn. Review of the medical record shows that the patient has had multiple recurrences of PNA over the past six months. Pulmonology consulted. Status post bronchoscopy 11/28/17. Endoscopy report reviewed. Minimal secretions. RML BAL shows MDRO E. cloacae (not CRE). Given that the patient's CT scan is not much improved, IV Bactrim was started. Continue for 14 days. Pharmacy to assist with dosing for the patient's ESRD. Non-candidal yeast species noted on BAL. Final ID pending. Continue fluconazole as above. Qualifiers: Pneumonia type: due to unspecified organism Laterality: right Lung location: lower lobe of lung Qualified Code(s): J18.1 - Lobar pneumonia, unspecified organism (5) Bicytopenia Current Visit: No Status: Chronic Continues to have anemia and thrombocytopenia. Leukopenia developed again today. Continue trend. Likely secondary to ESRD. Further workup and management per the primary team. (6) Chest pain Current Visit: Yes Status: Acute Appears musculoskeletal in origin. Likely secondary to PNA and chostochondritis. Troponin elevated likely secondary to demand ischemia from ESRD. Further workup and management per the primary team. Qualifiers: Chest pain type: unspecified Qualified Code(s): R07.9 - Chest pain, unspecified (7) Elevated troponin Current Visit: Yes Status: Acute Likely chronic secondary to CKD. EKG shows no acute changes. Further workup and management per the primary team. (8) Nausea and vomiting Current Visit: No Status: Chronic Likely secondary to short gut syndrome. Management per the primary team. Qualifiers: Vomiting type: unspecified Vomiting Intractability: non-intractable Qualified Code(s): R11.2 - Nausea with vomiting, unspecified (9) Abdominal pain Current Visit: No Status: Chronic Chronic. Further workup and management per the primary team. Qualifiers: Abdominal location: lower abdomen, unspecified Qualified Code(s): R10.30 - Lower abdominal pain, unspecified (10) Anemia in chronic kidney disease Current Visit: Yes Status: Chronic Likely multifactorial: poor nutrition + anemia of CKD. Management per the primary and nephrology teams. Qualifiers: Chronic kidney disease stage: on chronic dialysis Qualified Code(s): N18.6 - End stage renal disease; D63.1 - Anemia in chronic kidney disease; Z99.2 - Dependence on renal dialysis (11) COPD (chronic obstructive pulmonary disease) Current Visit: No Status: Chronic Management per the primary and pulmonology teams. Qualifiers: COPD type: emphysema Emphysema type: panlobular Qualified Code(s): J43.1 - Panlobular emphysema (12) ESRD (end stage renal disease) on dialysis Current Visit: Yes Status: Chronic Nephrology consulted and following. 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 Recently started on TPN, but the patient could not tolerate. Likely contributing to the patient's poor nutritional status. Management per the primary team. (14) Tobacco abuse Current Visit: Yes Status: Chronic - Subjective Interval history: Patient seen and examined this morning in the HD unit. No acute events noted overnight. Patient sleeping quietly upon my entrance, awakens easily. Reports pain in her entire chest, worse with deep cough or inspiration. She reports moist nonproductive cough. She does not appear to be in any acute distress. She reports chronic nausea and vomiting with by mouth intake. She states she could not eat any breakfast this morning. She reports liquid stool from her colostomy. She denies blood from her urostomy or colostomy. She denies oral thrush or new skin lesions. She denies fevers, chills, or rigors, but states she is always cold. Infect Dis PN-Objective Data - Labs CBC & Chem 7: 12/11/17 04:00 12/11/17 04:00 Labs: Laboratory Results - last 24 hr 12/10/17 12/10/17 12/10/17 02:40 02:40 11:41 WBC 3.4 L RBC 2.36 L Hgb 6.8 L Hct 22.6 L MCV 95.8 MCH 28.8 MCHC 30.1 L RDW 15.5 H Plt Count 67 L MPV 11.3 Immature Gran % 0.9 Seg Neutrophils % 70.6 Lymphocytes % 22.1 Monocytes % 4.9 Eosinophils % 1.2 Basophils % 0.3 Neutrophils # 2.4 Lymphocytes # 0.8 Monocytes # 0.2 Eosinophils # 0.0 Basophils # 0.0 Immature Plt Fraction 6.5 H Sodium 136 Potassium 4.3 Chloride 99 Carbon Dioxide 29 BUN 33 H Creatinine 5.16 H Est GFR ( Amer) 10 L Est GFR (Non-Af Amer) 8 L BUN/Creatinine Ratio 6 Glucose 83 Calculated Osmolality 288 Calcium 7.2 L Phosphorus 5.1 H Albumin 2.5 L Blood Type A POSITIVE Antibody Screen NEGATIVE Crossmatch See Detail Cultures: Cultures 11/28/17 13:00 Legionella Culture - Final Right Middle Lobe Lung Legionella Culture - Final 12/06/17 09:07 Anaerobic Culture - Preliminary Chest At this time, no anaerobic growth is present. The culture will be finalized after 5 days of incubation. 12/06/17 09:07 Wound Culture - Final Chest No growth. 11/28/17 13:00 Gram Stain - Final Right Middle Lobe Lung Respiratory Culture - Final Enterobacter cloacae MDRO 11/27/17 09:38 Blood Culture - Final Peripheral Venipuncture No growth. 11/27/17 08:37 Blood Culture - Final Peripheral Venipuncture No growth. 11/28/17 13:00 Fungal Culture - Preliminary Right Middle Lobe Lung Kelsey species, not ablicans 11/27/17 12:10 Fungal Culture - Final Left Arm No growth. 11/28/17 13:00 Acid Fast Stain - Final Right Middle Lobe Lung 11/16/17 05:13 Blood Fungal Culture - Final Peripheral Venipuncture No growth. 11/19/17 07:30 Blood Culture - Final Port System No growth. 11/19/17 07:35 Blood Culture - Final Port System No growth. 11/17/17 17:31 Blood Culture - Final Peripheral Venipuncture No growth. 11/17/17 17:31 Blood Culture - Final Peripheral Venipuncture No growth. 11/19/17 10:10 Catheter Tip Culture - Final Intravenous or Arterial Cath No growth. 11/17/17 18:09 Blood Culture - Final Port System Kelsey lusitaniae 11/16/17 05:05 Blood Fungal Culture - Final Peripheral Venipuncture Kelsey lusitaniae Serology 11/30/17 11/28/17 11/28/17 Range/Units 18:00 13:00 13:00 Fluid Source RML BAL Fluid Volume 25 mL Fluid Appearance Cloudy A (Clear) Fluid RBC 0.002 (No Ref Range) M/mcL Fld Tot Nucleated Cell 1663 (No Ref Range) TNC/mcL Fluid Seg Neutrophil % 18.0 % Fld Band Neutrophil % 0.0 % Fluid Lymphocytes % 34.0 % Fluid Monocytes % 1.0 % Fluid Eosinophils % 0.0 % Fluid Basophils % 0.0 % Fluid Other Cells % 47.0 % BAL A. galactomannan Ag POSITIVE A (Negative) Stool Occult Blood Negative (Negative) A. baumannii (PCR) (Not Detect) Chlamy pneumoniae PCR (Not Detect) Adenovirus (PCR) (Not Detect) Blastomyces Ab Comp Fx B. pertussis DNA (PCR) (Not Detect) B.parapertussis DNA PCR (Not Detect) Kelsey albicans (PCR) (Not Detect) C. glabrata (PCR) (Not Detect) C. krusei (PCR) (Not Detect) C. parapsilosis (PCR) (Not Detect) C. tropicalis (PCR) (Not Detect) Coronavirus OC43 (PCR) (Not Detect) Coronavirus HKU1 (PCR) (Not Detect) Coronavirus 229E (PCR) (Not Detect) Coronavirus NL63 (PCR) (Not Detect) Enterobacteriac sp PCR (Not Detect) E. cloacae complex PCR (Not Detect) Enterococcus sp PCR (Not Detect) E. coli (PCR) (Not Detect) H. influenzae (PCR) (Not Detect) Histoplasma Antigen U/mL Histoplasma Ag Interp (Negative) Human Metapneumovir PCR (Not Detect) Influenza A (H1) PCR (Not Detect) Influ A (H1N1/09) PCR (Not Detect) Influenza A (H3) PCR (Not Detect) Influenza Type A (PCR) Influenza A Untype (PCR) (Not Detect) Influenza Type B (PCR) (Not Detect) Klebsiella oxytoca PCR (Not Detect) Klebsiella pneumoniae (Not Detect) List. monocytogenes PCR (Not Detect) M.pneumoniae DNA (PCR) (Not Detect) N. meningitidis (PCR) (Not Detect) Parainfluenza 1 (PCR) (Not Detect) Parainfluenza 2 (PCR) (Not Detect) Parainfluenza 3 (PCR) (Not Detect) Parainfluenza 4 (PCR) (Not Detect) A. galactomannan Ag (Negative) A. galactomannan Ag Idx Proteus species (PCR) (Not Detect) RSV (PCR) (Not Detect) Entero/Rhino (PCR) (Not Detect) Serratia marcescens PCR (Not Detect) Staphylococcus sp PCR (Not Detect) Staph aureus (PCR) (Not Detect) mecA-Methicil Res Gene (Not Detect) Streptococcus sp PCR (Not Detect) Group A Strep DNA (Not Detect) Group B Strep (PCR) (Not Detect) Strep pneumoniae (PCR) (Not Detect) P. aeruginosa (PCR) (Not Detect) Yony/B-Vanco Res Genes (Not Detect) KPC (blaKPC) Detect PCR (Not Detect) Beta-(1,3)-D-Glucan pg/mL B-(1,3)-D-Glucan Intrp (Negative) 11/28/17 11/28/17 11/28/17 Range/Units 13:00 05:30 05:30 Fluid Source NOT PROVIDED Fluid Volume mL Fluid Appearance (Clear) Fluid RBC (No Ref Range) M/mcL Fld Tot Nucleated Cell (No Ref Range) TNC/mcL Fluid Seg Neutrophil % % Fld Band Neutrophil % % Fluid Lymphocytes % % Fluid Monocytes % % Fluid Eosinophils % % Fluid Basophils % % Fluid Other Cells % % BAL A. galactomannan Ag (Negative) Stool Occult Blood (Negative) A. baumannii (PCR) (Not Detect) Chlamy pneumoniae PCR (Not Detect) Adenovirus (PCR) (Not Detect) Blastomyces Ab Comp Fx B. pertussis DNA (PCR) (Not Detect) B.parapertussis DNA PCR (Not Detect) Kelsey albicans (PCR) (Not Detect) C. glabrata (PCR) (Not Detect) C. krusei (PCR) (Not Detect) C. parapsilosis (PCR) (Not Detect) C. tropicalis (PCR) (Not Detect) Coronavirus OC43 (PCR) (Not Detect) Coronavirus HKU1 (PCR) (Not Detect) Coronavirus 229E (PCR) (Not Detect) Coronavirus NL63 (PCR) (Not Detect) Enterobacteriac sp PCR (Not Detect) E. cloacae complex PCR (Not Detect) Enterococcus sp PCR (Not Detect) E. coli (PCR) (Not Detect) H. influenzae (PCR) (Not Detect) Histoplasma Antigen U/mL Histoplasma Ag Interp (Negative) Human Metapneumovir PCR (Not Detect) Influenza A (H1) PCR (Not Detect) Influ A (H1N1/09) PCR (Not Detect) Influenza A (H3) PCR (Not Detect) Influenza Type A (PCR) DETECTED A Influenza A Untype (PCR) (Not Detect) Influenza Type B (PCR) NOT DETECTED (Not Detect) Klebsiella oxytoca PCR (Not Detect) Klebsiella pneumoniae (Not Detect) List. monocytogenes PCR (Not Detect) M.pneumoniae DNA (PCR) (Not Detect) N. meningitidis (PCR) (Not Detect) Parainfluenza 1 (PCR) (Not Detect) Parainfluenza 2 (PCR) (Not Detect) Parainfluenza 3 (PCR) (Not Detect) Parainfluenza 4 (PCR) (Not Detect) A. galactomannan Ag NEGATIVE (Negative) A. galactomannan Ag Idx 0.06 Proteus species (PCR) (Not Detect) RSV (PCR) DETECTED A (Not Detect) Entero/Rhino (PCR) (Not Detect) Serratia marcescens PCR (Not Detect) Staphylococcus sp PCR (Not Detect) Staph aureus (PCR) (Not Detect) mecA-Methicil Res Gene (Not Detect) Streptococcus sp PCR (Not Detect) Group A Strep DNA (Not Detect) Group B Strep (PCR) (Not Detect) Strep pneumoniae (PCR) (Not Detect) P. aeruginosa (PCR) (Not Detect) Yony/B-Vanco Res Genes (Not Detect) KPC (blaKPC) Detect PCR (Not Detect) Beta-(1,3)-D-Glucan >500 pg/mL B-(1,3)-D-Glucan Intrp POSITIVE A (Negative) 11/28/17 11/18/17 11/17/17 Range/Units 05:30 08:41 18:09 Fluid Source Fluid Volume mL Fluid Appearance (Clear) Fluid RBC (No Ref Range) M/mcL Fld Tot Nucleated Cell (No Ref Range) TNC/mcL Fluid Seg Neutrophil % % Fld Band Neutrophil % % Fluid Lymphocytes % % Fluid Monocytes % % Fluid Eosinophils % % Fluid Basophils % % Fluid Other Cells % % BAL A. galactomannan Ag (Negative) Stool Occult Blood (Negative) A. baumannii (PCR) Not Detected (Not Detect) Chlamy pneumoniae PCR Not Detected (Not Detect) Adenovirus (PCR) Not Detected (Not Detect) Blastomyces Ab Comp Fx SEE BELOW B. pertussis DNA (PCR) Not Detected (Not Detect) B.parapertussis DNA PCR Not Detected (Not Detect) Kelsey albicans (PCR) Not Detected (Not Detect) C. glabrata (PCR) Not Detected (Not Detect) C. krusei (PCR) Not Detected (Not Detect) C. parapsilosis (PCR) Not Detected (Not Detect) C. tropicalis (PCR) Not Detected (Not Detect) Coronavirus OC43 (PCR) Not Detected (Not Detect) Coronavirus HKU1 (PCR) DETECTED A (Not Detect) Coronavirus 229E (PCR) Not Detected (Not Detect) Coronavirus NL63 (PCR) Not Detected (Not Detect) Enterobacteriac sp PCR Not Detected (Not Detect) E. cloacae complex PCR Not Detected (Not Detect) Enterococcus sp PCR Not Detected (Not Detect) E. coli (PCR) Not Detected (Not Detect) H. influenzae (PCR) Not Detected (Not Detect) Histoplasma Antigen <2.0 U/mL Histoplasma Ag Interp NEGATIVE (Negative) Human Metapneumovir PCR Not Detected (Not Detect) Influenza A (H1) PCR Not Detected (Not Detect) Influ A (H1N1/09) PCR Not Detected (Not Detect) Influenza A (H3) PCR Not Detected (Not Detect) Influenza Type A (PCR) Influenza A Untype (PCR) Not Detected (Not Detect) Influenza Type B (PCR) Not Detected (Not Detect) Klebsiella oxytoca PCR Not Detected (Not Detect) Klebsiella pneumoniae Not Detected (Not Detect) List. monocytogenes PCR Not Detected (Not Detect) M.pneumoniae DNA (PCR) Not Detected (Not Detect) N. meningitidis (PCR) Not Detected (Not Detect) Parainfluenza 1 (PCR) Not Detected (Not Detect) Parainfluenza 2 (PCR) Not Detected (Not Detect) Parainfluenza 3 (PCR) Not Detected (Not Detect) Parainfluenza 4 (PCR) Not Detected (Not Detect) A. galactomannan Ag (Negative) A. galactomannan Ag Idx Proteus species (PCR) Not Detected (Not Detect) RSV (PCR) DETECTED A (Not Detect) Entero/Rhino (PCR) Not Detected (Not Detect) Serratia marcescens PCR Not Detected (Not Detect) Staphylococcus sp PCR Not Detected (Not Detect) Staph aureus (PCR) Not Detected (Not Detect) mecA-Methicil Res Gene N/A (Not Detect) Streptococcus sp PCR Not Detected (Not Detect) Group A Strep DNA Not Detected (Not Detect) Group B Strep (PCR) Not Detected (Not Detect) Strep pneumoniae (PCR) Not Detected (Not Detect) P. aeruginosa (PCR) Not Detected (Not Detect) Yony/B-Vanco Res Genes N/A (Not Detect) KPC (blaKPC) Detect PCR N/A (Not Detect) Beta-(1,3)-D-Glucan pg/mL B-(1,3)-D-Glucan Intrp (Negative) 11/17/17 Range/Units 17:31 Fluid Source Fluid Volume mL Fluid Appearance (Clear) Fluid RBC (No Ref Range) M/mcL Fld Tot Nucleated Cell (No Ref Range) TNC/mcL Fluid Seg Neutrophil % % Fld Band Neutrophil % % Fluid Lymphocytes % % Fluid Monocytes % % Fluid Eosinophils % % Fluid Basophils % % Fluid Other Cells % % BAL A. galactomannan Ag (Negative) Stool Occult Blood (Negative) A. baumannii (PCR) (Not Detect) Chlamy pneumoniae PCR (Not Detect) Adenovirus (PCR) (Not Detect) Blastomyces Ab Comp Fx B. pertussis DNA (PCR) (Not Detect) B.parapertussis DNA PCR (Not Detect) Kelsey albicans (PCR) (Not Detect) C. glabrata (PCR) (Not Detect) C. krusei (PCR) (Not Detect) C. parapsilosis (PCR) (Not Detect) C. tropicalis (PCR) (Not Detect) Coronavirus OC43 (PCR) (Not Detect) Coronavirus HKU1 (PCR) (Not Detect) Coronavirus 229E (PCR) (Not Detect) Coronavirus NL63 (PCR) (Not Detect) Enterobacteriac sp PCR (Not Detect) E. cloacae complex PCR (Not Detect) Enterococcus sp PCR (Not Detect) E. coli (PCR) (Not Detect) H. influenzae (PCR) (Not Detect) Histoplasma Antigen U/mL Histoplasma Ag Interp (Negative) Human Metapneumovir PCR (Not Detect) Influenza A (H1) PCR (Not Detect) Influ A (H1N1/09) PCR (Not Detect) Influenza A (H3) PCR (Not Detect) Influenza Type A (PCR) Influenza A Untype (PCR) (Not Detect) Influenza Type B (PCR) (Not Detect) Klebsiella oxytoca PCR (Not Detect) Klebsiella pneumoniae (Not Detect) List. monocytogenes PCR (Not Detect) M.pneumoniae DNA (PCR) (Not Detect) N. meningitidis (PCR) (Not Detect) Parainfluenza 1 (PCR) (Not Detect) Parainfluenza 2 (PCR) (Not Detect) Parainfluenza 3 (PCR) (Not Detect) Parainfluenza 4 (PCR) (Not Detect) A. galactomannan Ag (Negative) A. galactomannan Ag Idx Proteus species (PCR) (Not Detect) RSV (PCR) (Not Detect) Entero/Rhino (PCR) (Not Detect) Serratia marcescens PCR (Not Detect) Staphylococcus sp PCR (Not Detect) Staph aureus (PCR) (Not Detect) mecA-Methicil Res Gene (Not Detect) Streptococcus sp PCR (Not Detect) Group A Strep DNA (Not Detect) Group B Strep (PCR) (Not Detect) Strep pneumoniae (PCR) (Not Detect) P. aeruginosa (PCR) (Not Detect) Yony/B-Vanco Res Genes (Not Detect) KPC (blaKPC) Detect PCR (Not Detect) Beta-(1,3)-D-Glucan 470 pg/mL B-(1,3)-D-Glucan Intrp POSITIVE A (Negative) Exam - Constitutional Vitals: Temp Pulse Resp BP Pulse Ox 97.7 F 81 16 118/47 100 12/10/17 09:35 12/10/17 06:55 12/10/17 09:35 12/10/17 12:05 12/10/17 06:55 General appearance: cooperative, no acute distress, thin - Head Head exam: Present: atraumatic, normal inspection, normocephalic - Eye Eye exam: Present: EOMI, normal appearance, PERRL Pupils: Present: normal accommodation - ENT ENT exam: Present: mucous membranes dry - Neck Neck exam: Present: normal inspection - Respiratory Respiratory exam: Present: rhonchi (throughout). Absent: rales, respiratory distress, wheezes - Cardiovascular Cardiovascular exam: Present: RRR, +S1, +S2 - GI/Abdominal GI/Abdominal exam: Present: distended, normal bowel sounds, soft, tenderness ( generalized) Additional comments: Urostomy noted to the RLQ with small amount of clear yellow urine noted in the bag. Light brown liquid stool noted in the colostomy bag in the LLQ. - Extremities Exam Extremities exam: Present: normal inspection. Absent: joint swelling, pedal edema, tenderness Additional comments: AV fistula noted to the LUE, currently accessed for HD. - Neurological Exam Neurological exam: Present: alert, oriented X3, no focal deficits - Psychiatric Psychiatric exam: Present: normal affect, normal mood - Skin Skin exam: Present: dry, intact, normal color, warm - VTE Documentation of Mechanical Device: Intermittent pneumatic compression device Consult Discharge Plan - Plan Referrals: Na Johansen, [employer] [Primary Care Provider] - (Call at discharge due to lengthy stay) - Attending Attestation I examined this patient and my medical decision-making was reviewed with the Resident Physician. I agree with the documented findings, disposition and treatment plan as described except to the extent set forth below.
[2017-12-10] MEDS ORDERED: 0.9 % Sodium Chloride 250 ML ONE (15:52)
--- NOTE | 2017-12-10 16:17 | Nephrology Progress Note ---
Date of Encounter: 12/10/17 Time of Encounter: 16:15 - Assessment and Plan (1) ESRD (end stage renal disease) on dialysis Current Visit: Yes Status: Chronic HD MWF. Renal vitamins. Renal dose medications. Renal diet. Additional dialysis and ultrafiltration as needed. Patient seen on dialysis. (2) Anemia Current Visit: No Status: Chronic Monitor hemoglobin. Continue Aranesp. Increased to 60mcg weekly. Transfuse as needed. Qualifiers: Anemia type: unspecified type Qualified Code(s): D64.9 - Anemia, unspecified (3) Hyperphosphatemia Current Visit: No Status: Chronic Continue phosphate binders. (4) Hypocalcemia Current Visit: Yes Status: Acute High calcium bath with dialysis. Subjective Principal diagnosis: hypoxic respiratiory failure 2/2 COPD exacerbation 2/2 PNA Interval history: Patient was seen. She is on dialysis. Resting comfortably She complains of chest pain when she is awakened. Objective - Vital Signs Vital signs: Vital Signs Temp Pulse Resp BP Pulse Ox 12/10/17 13:20 98.1 F 18 127/43 12/10/17 13:05 121/43 12/10/17 12:50 102/49 12/10/17 12:35 124/50 12/10/17 12:20 114/51 12/10/17 12:05 118/47 12/10/17 11:50 153/50 12/10/17 11:35 129/57 12/10/17 11:20 127/49 12/10/17 11:05 120/52 12/10/17 10:50 121/60 12/10/17 10:35 125/60 12/10/17 10:20 130/64 12/10/17 10:05 125/62 12/10/17 09:50 139/64 12/10/17 09:35 97.7 F 16 128/56 12/10/17 06:55 98.0 F 81 16 137/66 100 12/10/17 04:58 98.9 F 70 16 144/67 100 12/10/17 02:48 14 12/09/17 23:49 97.4 F L 81 18 144/70 100 12/09/17 21:08 98.3 F 79 18 151/79 100 12/09/17 16:44 98.1 F 81 18 129/69 91 Intake and Output 12/10/17 12/10/17 12/10/17 07:59 15:59 23:59 Intake Total 0 / 0 840 / 840 Output Total 2600 / 2600 Balance 0 / 0 -1760 / -1760 Intake: Oral 0 / 0 240 / 240 Intake, Rinseback and Flushes 600 / 600 Output: Urine 0 / 0 Total Dialysis (HD) Output 2600 / 2600 Other: Weight 54.2 kg Hemodialysis Net Fluid Removed 2000 (mL) Patient Weight 12/10/17 23:59 Weight 54.2 kg - General Appearance General appearance: Present: well-developed, chronically ill, frail Respiratory: Present: course breath sounds, rhonchi Cardiology: Present: edema Psychiatric: Present: mood/affect appropriate - Lab 12/11/17 04:00 12/11/17 04:00 Most recent lab results ABG pH 7.35 pH Units (7.32-7.45) 12/09/17 04:48 ABG pCO2 58 mmHg (35-45) H 12/09/17 04:48 ABG pO2 92 mmHg (85-104) 12/09/17 04:48 ABG HCO3 32 mEq/L (21-27) H 12/09/17 04:48 ABG O2 Saturation 96 % (95-98) 12/09/17 04:48 Calcium 7.2 mg/dL (8.6-10.3) L 12/10/17 02:40 Phosphorus 5.1 mg/dL (2.7-4.5) H 12/10/17 02:40 Magnesium 1.5 mg/dL (1.6-2.6) L 12/08/17 18:30 - VTE Documentation of Mechanical Device: Intermittent pneumatic compression device Consult Discharge Plan - Plan Referrals: Na Johansen, [employer]E WEIGHER HELPER [Primary Care Provider] - (Call at discharge due to lengthy stay)
--- NOTE | 2017-12-10 17:34 | Internal Med Progress Note ---
Date of Encounter: 12/10/17 Time of Encounter: 15:00 - Assessment and plan (1) Cavitary lesion of lung Current Visit: Yes Status: Acute Assessment and plan: Patient has history of abnormal CT chest with multiple images showing diffuse tree-in-bud appearance of lung parenchyma suggestive of infection/inflammation along with cavitary lesions in upper lobe. Infectious diseases has been on board. Repeat CT chest today shows improvement in cavitary lesions, persistent diffuse infectious/inflammatory process. Continue IV Bactrim to complete a two-week course. (2) Fungemia Current Visit: Yes Status: Acute Assessment and plan: Patient was discharged on total parenteral nutrition after her previous admission. 2 sets of peripheral blood cultures each from November 14 and grew Kelsey lusitaniae; blood cultures from November 17 are negative. One set of blood cultures from port system from November 17 due to Kelsey, repeat blood cultures from port system from November 19 onwards were negative. Patient was evaluated by ophthalmology-no evidence of endophthalmitis was appreciated. Infectious diseases on board, continue IV fluconazole. (3) Pneumonia Current Visit: Yes Status: Suspected Assessment and plan: BAL from right middle lobe grew Enterobacter chloacae- MDRO. Acid-fast stain negative. Preliminary fungal culture shows Kelsey species, not albicans. Repeat CT chest findings as above. Continue IV fluconazole and Bactrim has been added for Enterobacter. Continue supportive care and supplemental oxygen. Blood culture results as above. Qualifiers: Pneumonia type: due to unspecified organism Laterality: bilateral Lung location: lower lobe of lung Qualified Code(s): J18.9 - Pneumonia, unspecified organism (4) Sepsis Current Visit: Yes Status: Resolved Qualifiers: Sepsis type: sepsis due to unspecified organism Qualified Code(s): A41.9 - Sepsis, unspecified organism (5) COPD exacerbation Current Visit: Yes Status: Acute Assessment and plan: Patient has severe COPD with cachexia and malnutrition. She always has diffuse rhonchi. Unfortunately, very difficult to completely treat patient and achieve clear lungs/breathing status; Not noted to be in respiratory distress today. Respiratory viral panel was positive for RSV, coronavirus, influenza a. Continues to require 3-4 L/m supplemental oxygen via nasal cannula, probably new baseline. Continue as needed bronchodilators, parenteral steroids, inhaled corticosteroids. (6) Goals of care, counseling/discussion Current Visit: Yes Status: Acute (7) Anemia in chronic kidney disease Current Visit: Yes Status: Chronic Assessment and plan: Noted to have acute on chronic anemia with hemoglobin at 6.8 today. Stool occult blood testing has been negative during this admission. Will transfuse 2 units PRBC and continue to monitor hemoglobin. Qualifiers: Chronic kidney disease stage: on chronic dialysis Qualified Code(s): N18.6 - End stage renal disease; D63.1 - Anemia in chronic kidney disease; Z99.2 - Dependence on renal dialysis (8) Atrial fibrillation Current Visit: Yes Status: Chronic Qualifiers: Atrial fibrillation type: chronic Qualified Code(s): I48.2 - Chronic atrial fibrillation (9) ESRD (end stage renal disease) on dialysis Current Visit: Yes Status: Chronic Assessment and plan: Nephrology on board, patient is receiving regular hemodialysis sessions. (10) Hypothyroid Current Visit: Yes Status: Chronic Qualifiers: Hypothyroidism type: unspecified Qualified Code(s): E03.9 - Hypothyroidism , unspecified (11) Tobacco abuse Current Visit: Yes Status: Chronic (12) Acute respiratory failure with hypoxia Current Visit: Yes Status: Acute - Subjective Interval history: Noted to be comfortable, having lunch and watching TV, in bed. Reports feeling well, declines being placed in a rehabilitation facility, wishes to go home when she feels better. - Constitutional Vitals: Temp Pulse Resp BP Pulse Ox 98.8 F 87 16 116/44 100 12/10/17 16:55 12/10/17 16:55 12/10/17 16:55 12/10/17 16:55 12/10/17 16:40 General appearance: Present: cachectic, A&O X 3 (Extremely hard of hearing), underweight, answers questions appropriately - Respiratory Respiratory exam: Present: CTAB (Bilateral coarse breath sounds, diffuse rhonchi , probably her baseline). Absent: accessory muscle use, rales, rhonchi, wheezes - Cardiovascular Cardiovascular exam: Present: RRR, +S1, +S2. Absent: diastolic murmur, gallop, rubs, systolic murmur - GI/Abdominal GI/Abdominal exam: Present: normal bowel sounds, soft (Ileostomy and colostomy in place), no peritoneal signs. Absent: distended, tenderness Internal Medicine: Result - Labs CBC & Chem 7: 12/11/17 04:00 12/11/17 04:00 Labs: Short CBC 12/10/17 Range/Units 02:40 WBC 3.4 L (4.3-11.1) K/mcL Hgb 6.8 L (11.5-15.4) g/dL Hct 22.6 L (35.3-44.9) % Plt Count 67 L (140-400) K/mcL Neutrophils # 2.4 (1.6-8.9) K/mcL BMP 12/10/17 02:40 Sodium 136 Potassium 4.3 Chloride 99 Carbon Dioxide 29 BUN 33 H Creatinine 5.16 H Glucose 83 Calcium 7.2 L Liver Function 12/10/17 Range/Units 02:40 Albumin 2.5 L (3.5-5.7) g/dL - ABG Interpretation ABG results: ABG ABG pH 7.35 pH Units (7.32-7.45) 12/09/17 04:48 ABG pCO2 58 mmHg (35-45) H 12/09/17 04:48 ABG pO2 92 mmHg (85-104) 12/09/17 04:48 ABG O2 Saturation 96 % (95-98) 12/09/17 04:48 PT/INR, D-dimer PT 16.2 Seconds (9.4-12.1) H 11/14/17 10:30 - VTE Documentation of Mechanical Device: Intermittent pneumatic compression device Consult Discharge Plan - Plan Referrals: Na Johansen, RAILWAY SHUNTER [Primary Care Provider] - (Call at discharge due to lengthy stay)
[2017-12-10] MEDS: Fluconazole 400 MG/200 ML 400 MG/200 ML BAG IVPB SCH (20:35)
[2017-12-11] MEDS ORDERED: 0.9 % Sodium Chloride 250 ML ONE (00:29)
[2017-12-11] MEDS: *HR* Promethazine 25 MG/ML VIAL IVP PRN ×2 (03:52→21:44)
[2017-12-11 04:12] LABS: Eosinophils # 0.1 K/mcL (0.0-0.6); Eosinophils % 1.3 %; Hematocrit 27.3 % (35.3-44.9); Immature Granulocytes % 0.3 % (0-4); Immature Platelets 6.6 % (1.1-6.1); Lymphocytes # 0.9 K/mcL (0.6-4.6); Lymphocytes % 23.7 %; Mean Corpuscular HGB Conc 31.1 g/dL (31.6-35.5); Mean Corpuscular Hemoglobin 28.6 pg (28.0-33.3); Mean Corpuscular Volume 91.9 fL (83.0-100.0); Mean Platelet Volume 11.6 fL (9.4-12.4); Monocytes # 0.2 K/mcL (0.0-1.3); Monocytes % 4.5 %; Red Blood Count 2.97 M/mcL (3.82-4.97); Red Cell Distribution Width 15.9 % (11.5-14.5); Segmented Neutrophils % 70.2 %
[2017-12-11 04:13] LABS: Hemoglobin 8.5 g/dL (11.5-15.4); Neutrophils # 2.7 K/mcL (1.6-8.9); Platelet Count 76 K/mcL (140-400)
[2017-12-11 04:27] LABS: Calcium 7.7 mg/dL (8.6-10.3); Phosphorous 3.2 mg/dL (2.7-4.5); Potassium 3.9 mEq/L (3.5-5.1)
[2017-12-11] MEDS: *HR* Acetylcysteine 20% 600 MG/3 ML ORAL SYRINGE PO SCH ×2 (08:09→21:44)
[2017-12-11] MEDS: Calcium Acetate 667 MG CAPSULE PO SCH ×3 (08:09→16:52)
[2017-12-11] MEDS: predniSONE 10 MG TABLET PO SCH (08:09)
[2017-12-11] MEDS: Nicotine 21 MG PATCH.TD24 TD SCH (08:09)
[2017-12-11] MEDS: Fluticasone Propionate Nasal 50 MCG/SPRAY BOTTLE NS SCH (08:14)
[2017-12-11] MEDS: *HR* OxyCODONE Immed Rel 5 MG TABLET PO PRN ×3 (08:17→18:33)
[2017-12-11] MEDS: Ondansetron 4 MG/2 ML VIAL IVP PRN ×2 (08:17→18:33)
--- NOTE | 2017-12-11 09:49 | Nephrology Progress Note ---
Date of Encounter: 12/11/17 Time of Encounter: 09:47 - Assessment and Plan (1) ESRD (end stage renal disease) on dialysis Current Visit: Yes Status: Chronic Plan for HD tomorrow Continue to use 2.5 Ca+ bath for low calcium Continue renal diet Continue strict I/Os Avoid nephrotoxins if possible (2) Anemia in CKD (chronic kidney disease) Current Visit: No Status: Chronic Hgb 8.5 Goal hgb 10-11 Transfuse per parameters Qualifiers: Chronic kidney disease stage: on chronic dialysis Qualified Code(s): N18.6 - End stage renal disease; D63.1 - Anemia in chronic kidney disease; D63.1 - Anemia in chronic kidney disease; Z99.2 - Dependence on renal dialysis; Z99.2 - Dependence on renal dialysis; Z99.2 - Dependence on renal dialysis; Z99.2 - Dependence on renal dialysis (3) Hypocalcemia Current Visit: No Status: Acute Ca+ 7.7 Ongoing chronic hypocalcemia Will continue higher Ca+ bath of 2.5 in dialysis Continue Ergocalciferol Subjective Principal diagnosis: hypoxic respiratiory failure 2/2 COPD exacerbation 2/2 PNA Interval history: Patient seen and examined. Sleeping at time of exam; wakes easily, states she doesn't feel well. Objective - Vital Signs Vital signs: Vital Signs Temp Pulse Resp BP Pulse Ox 12/11/17 07:09 97.7 F 79 18 143/68 98 12/11/17 04:21 98.3 F 83 18 106/48 96 12/11/17 04:07 18 96 12/11/17 04:04 97.6 F 81 17 125/67 97 12/11/17 01:13 98.0 F 78 18 132/66 97 12/11/17 00:58 97.9 F 80 18 136/64 12/10/17 23:47 18 96 12/10/17 23:20 98.1 F 84 16 124/77 97 12/10/17 20:07 90 18 138/75 12/10/17 19:45 98.8 F 92 16 132/75 91 12/10/17 16:55 98.8 F 87 16 116/44 12/10/17 16:40 98.7 F 89 16 135/70 100 12/10/17 13:20 98.1 F 18 127/43 12/10/17 13:05 121/43 12/10/17 12:50 102/49 12/10/17 12:35 124/50 12/10/17 12:20 114/51 12/10/17 12:05 118/47 12/10/17 11:50 153/50 12/10/17 11:35 129/57 12/10/17 11:20 127/49 12/10/17 11:05 120/52 12/10/17 10:50 121/60 12/10/17 10:35 125/60 12/10/17 10:20 130/64 12/10/17 10:05 125/62 12/10/17 09:50 139/64 Intake and Output 12/10/17 12/11/17 12/11/17 23:59 07:59 15:59 Intake Total 1186.5 / 1186.5 350 / 350 Balance 1186.5 / 1186.5 350 / 350 Intake: IV Fluids 716.5 / 716.5 Diflucan Premix 400 MG/200 ML 200 / 200 400 mg In 200 ml @ 200 mls/hr IVPB MOWEFR@1800 [facility] Rx#: [id number] Bactrim 800MG/160MG/10ML 16.5 516.5 / 516.5 ML In Dextrose 5% 500 ML @ 250 mls/hr IVPB MOWEFR@0600,1800 [facility] Rx#:[id number] Oral 120 / 120 Blood Product 350 / 350 350 / 350 Rbcs Leuko Poor As-1 Unit 350 / 350 [id number] Rbcs Leuko Poor As-1 Unit 350 / 350 [id number] Other: Meal Dinner Percent of Meal Consumed 20% - General Appearance General appearance: Present: cachectic, chronically ill, frail EENT: Present: ATNC, mucous membranes moist Neck: Present: supple Respiratory: Present: clear (decreased) Cardiology: Present: no edema, normal S1, normal S2 Dialysis Vascular Access: Arteriovenous Fistula Gastrointestinal: Present: no tenderness, no guarding Integumentary: Present: warm and dry Neurologic: Present: alert and oriented x3 Psychiatric: Present: mood/affect appropriate, cooperative - Lab 12/11/17 04:00 12/11/17 04:00 Most recent lab results ABG pH 7.35 pH Units (7.32-7.45) 12/09/17 04:48 ABG pCO2 58 mmHg (35-45) H 12/09/17 04:48 ABG pO2 92 mmHg (85-104) 12/09/17 04:48 ABG HCO3 32 mEq/L (21-27) H 12/09/17 04:48 ABG O2 Saturation 96 % (95-98) 12/09/17 04:48 Calcium 7.7 mg/dL (8.6-10.3) L 12/11/17 04:00 Phosphorus 3.2 mg/dL (2.7-4.5) 12/11/17 04:00 Magnesium 2.0 mg/dL (1.6-2.6) 12/11/17 04:00 - VTE Documentation of Mechanical Device: Intermittent pneumatic compression device Consult Discharge Plan - Plan Referrals: Na Johansen, TRAINING AND DEVELOPMENT DIRECTOR [Primary Care Provider] - (Call at discharge due to lengthy stay)
--- NOTE | 2017-12-11 10:30 | Infectious Disease Progress No ---
Date of Encounter: 12/11/17 Time of Encounter: 10:27 - Assessment and Plan (1) Sepsis Current Visit: Yes Status: Resolved Severe sepsis on admission. The patient had two SIRS criteria with hypotension responsive to IV fluids. Likely secondary to fungemia and PNA. Resolved. The patient has been afebrile. Hypotension has resolved. Tachycardia has resolved. Peripheral blood cultures drawn 11/14/17 were positive 2/2 for Kelsey lusitaniae. Additional peripheral fungal blood culture drawn 11/16/17 is positive as well. Peripheral blood cultures drawn 11/17/16 were negative. A-port blood cultures drawn 11/17/17 were positive. Repeat blood cultures x 2 sets drawn 11/27/17 are negative. Qualifiers: Sepsis type: sepsis due to unspecified organism Qualified Code(s): A41.9 - Sepsis, unspecified organism (2) Fungemia Current Visit: Yes Status: Acute Causative organism Kelsey lusitiniae. Source unclear, but the patient was recently on TPN given through her a-port. Her a-port was removed 11/18/17. Peripheral blood cultures drawn 11/14/17 were positive 2/2. Additional peripheral fungal blood culture drawn 11/16/17 is positive as well. No blood cultures were drawn from the patient's a-port before antifungals were started. Repeat blood cultures x 2 sets from the a-port are positive and x2 sets from a peripheral stick drawn 11/17/17 are negative. Additional blood cultures drawn 11/27/17 are NGTD x 2 sets. Continue fluconazole, 400mg IV daily on HD days only. Treat through 12/15/17. Recommend keeping IV since the patient likely has poor absorption through the GI tract due to her SGS. Opthalmology evaluation noted and appreciated. No endopthalmitis. Duration of treatment depends on the clinical picture. Await repeat CT scan results. Monitor CBC and LFTs while on antifungals. Repeat LFTs today. Will add to this morning's labs. (3) Cavitary lesion of lung Current Visit: Yes Status: Acute CTA of the chest shows new when compared to previous examination (Oct 2017) multiple focal areas of consolidation within the periphery of the lungs, some with focal cavitation. Per radiology, given the rapid development, septic emboli are primarily considered. In addition, there are innumerable punctate centrilobular tree-in-bud ground-glass nodules that have an inflammatory/ infectious appearance, likely related related to infectious bronchiolitis, but could also be hematogenous as well. CT scan reviewed with Pulmonology team. Etiology unclear: fungemia vs. other. No CT scan obtained during this hospitalization to tell us if these lesions were there on admission or not. Pulmonology recommendations noted and appreciated. Status post bronchoscopy 11/28. Endoscopy report reviewed. Minimal secretions noted. No mucous plugs. BAL of the RML grew MDRO E. cloacae. MHT negative for CRE. Patient remains stable off antibiotics. Continue antifungals as above. Fungal serologies noted. Fungitell positive. BAL Aspergillus galactomannan positive, but serum negative. BAL pathology negative for fungal elements or malignancy. Discussed with pulmonology. No clinical picture indicates invasive infection: no new worsening cough, shortness of breath is at baseline, afebrile , does not appear toxic. She has been on and off steroids during her hospitalization, but she is not chronically immunosuppressed. Bronch really did not look impressive per pulmonology and the pulmonary team does not believe that the patient has invasive aspergillosis. Also reviewed [facility] specimen clinical interpretation website and Histoplasma may cross-react with the Aspergillus antigen assay, leading to false positive test result. At this point, we will not broaden antifungal coverage to Voriconazole. Check Aspergillus IgE.--> pending. Repeat CT scan of the chest done 12/08/17 noted. Discussed with pulmonology. Bronchiolitis changes are worse, but cavitary nodules minimally better. As for the Enterobacter cloace, not sure if this is a true infection vs. colonization. Given that the patient's repeat CT scan is not changed much, will start IV Bactrim x 14 days. Will request pharmacy's help with dosing for her HD schedule. Recommend IV since the patient's GI absorption is likely minimal due to her SGS. Continue droplet precautions. Will plan on repeating CT scan once the patient completes IV antibiotics. (4) Pneumonia Current Visit: Yes Status: Suspected Location: Bilaterally. Causative organism unclear, but possible viral. RIP positive for HSV and Coronavirus. Previous sputum cultures positive for S. maltophilia, PSEA, and E. coli. CXR showed patchy airspace opacities bilaterally, more pronounced in the right lung base. Previously completed a 7 day course of Levaquin and 8 days of Zosyn. Review of the medical record shows that the patient has had multiple recurrences of PNA over the past six months. Pulmonology consulted. Status post bronchoscopy 11/28/17. Endoscopy report reviewed. Minimal secretions. RML BAL shows MDRO E. cloacae (not CRE). Given that the patient's CT scan is not much improved, IV Bactrim was started. Continue for 14 days. Pharmacy to assist with dosing for the patient's ESRD. Non-candidal yeast species noted on BAL. Final ID pending. Continue fluconazole as above. Qualifiers: Pneumonia type: due to unspecified organism Laterality: right Lung location: lower lobe of lung Qualified Code(s): J18.1 - Lobar pneumonia, unspecified organism (5) Bicytopenia Current Visit: No Status: Chronic Continues to have anemia and thrombocytopenia. Leukopenia persists today, but is stable. Continue trend. Likely secondary to ESRD. Further workup and management per the primary team. (6) Chest pain Current Visit: Yes Status: Acute Appears musculoskeletal in origin. Likely secondary to PNA and chostochondritis. Troponin elevated likely secondary to demand ischemia from ESRD. Further workup and management per the primary team. Qualifiers: Chest pain type: unspecified Qualified Code(s): R07.9 - Chest pain, unspecified (7) Elevated troponin Current Visit: Yes Status: Acute Likely chronic secondary to CKD. EKG shows no acute changes. Further workup and management per the primary team. (8) Nausea and vomiting Current Visit: No Status: Chronic Likely secondary to short gut syndrome. Management per the primary team. Qualifiers: Vomiting type: unspecified Vomiting Intractability: non-intractable Qualified Code(s): R11.2 - Nausea with vomiting, unspecified (9) Abdominal pain Current Visit: No Status: Chronic Chronic. Further workup and management per the primary team. Qualifiers: Abdominal location: lower abdomen, unspecified Qualified Code(s): R10.30 - Lower abdominal pain, unspecified (10) Anemia in chronic kidney disease Current Visit: Yes Status: Chronic Likely multifactorial: poor nutrition + anemia of CKD. Management per the primary and nephrology teams. Qualifiers: Chronic kidney disease stage: on chronic dialysis Qualified Code(s): N18.6 - End stage renal disease; D63.1 - Anemia in chronic kidney disease; Z99.2 - Dependence on renal dialysis (11) COPD (chronic obstructive pulmonary disease) Current Visit: No Status: Chronic Management per the primary and pulmonology teams. Qualifiers: COPD type: emphysema Emphysema type: panlobular Qualified Code(s): J43.1 - Panlobular emphysema (12) ESRD (end stage renal disease) on dialysis Current Visit: Yes Status: Chronic Nephrology consulted and following. 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 Recently started on TPN, but the patient could not tolerate. Likely contributing to the patient's poor nutritional status. Management per the primary team. (14) Tobacco abuse Current Visit: Yes Status: Chronic - Subjective Interval history: Patient seen and examined. No acute events noted overnight. Patient sleeping quietly upon my entrance, awakens easily. Reports pain in her entire chest, worse with deep cough or inspiration. She reports moist cough that is now productive of yellow sputum. She does not appear to be in any acute distress. She reports chronic nausea and vomiting with by mouth intake. She states she could not eat any breakfast this morning. She reports liquid stool from her colostomy. She denies blood from her urostomy or colostomy. She denies oral thrush or new skin lesions. She denies fevers, chills, or rigors, but states she is always cold. Infect Dis PN-Objective Data - Labs CBC & Chem 7: 12/11/17 04:00 12/11/17 04:00 Labs: Laboratory Results - last 24 hr 12/10/17 12/11/17 12/11/17 11:41 04:00 04:00 WBC 3.8 L RBC 2.97 L Hgb 8.5 L D Hct 27.3 L MCV 91.9 MCH 28.6 MCHC 31.1 L RDW 15.9 H Plt Count 76 L MPV 11.6 Immature Gran % 0.3 Seg Neutrophils % 70.2 Lymphocytes % 23.7 Monocytes % 4.5 Eosinophils % 1.3 Basophils % 0.0 Neutrophils # 2.7 Lymphocytes # 0.9 Monocytes # 0.2 Eosinophils # 0.1 Basophils # 0.0 Immature Plt Fraction 6.6 H Sodium 137 Potassium 3.9 Chloride 102 Carbon Dioxide 29 BUN 16 Creatinine 3.26 H Est GFR ( Amer) 17 L Est GFR (Non-Af Amer) 14 L BUN/Creatinine Ratio 5 L Glucose 79 Calculated Osmolality 284 Calcium 7.7 L Phosphorus 3.2 Magnesium 2.0 Blood Type A POSITIVE Antibody Screen NEGATIVE Crossmatch See Detail Cultures: Cultures 12/06/17 09:07 Anaerobic Culture - Final Chest No anaerobes were recovered. 11/28/17 13:00 Legionella Culture - Final Right Middle Lobe Lung Legionella Culture - Final 12/06/17 09:07 Wound Culture - Final Chest No growth. 11/28/17 13:00 Gram Stain - Final Right Middle Lobe Lung Respiratory Culture - Final Enterobacter cloacae MDRO 11/27/17 09:38 Blood Culture - Final Peripheral Venipuncture No growth. 11/27/17 08:37 Blood Culture - Final Peripheral Venipuncture No growth. 11/28/17 13:00 Fungal Culture - Preliminary Right Middle Lobe Lung Kelsey species, not ablicans 11/27/17 12:10 Fungal Culture - Final Left Arm No growth. 11/28/17 13:00 Acid Fast Stain - Final Right Middle Lobe Lung 11/16/17 05:13 Blood Fungal Culture - Final Peripheral Venipuncture No growth. 11/19/17 07:30 Blood Culture - Final Port System No growth. 11/19/17 07:35 Blood Culture - Final Port System No growth. 11/17/17 17:31 Blood Culture - Final Peripheral Venipuncture No growth. 11/17/17 17:31 Blood Culture - Final Peripheral Venipuncture No growth. 11/19/17 10:10 Catheter Tip Culture - Final Intravenous or Arterial Cath No growth. 11/17/17 18:09 Blood Culture - Final Port System Kelsey lusitaniae 11/16/17 05:05 Blood Fungal Culture - Final Peripheral Venipuncture Kelsey lusitaniae Serology 11/30/17 11/28/17 11/28/17 Range/Units 18:00 13:00 13:00 Fluid Source RML BAL Fluid Volume 25 mL Fluid Appearance Cloudy A (Clear) Fluid RBC 0.002 (No Ref Range) M/mcL Fld Tot Nucleated Cell 1663 (No Ref Range) TNC/mcL Fluid Seg Neutrophil % 18.0 % Fld Band Neutrophil % 0.0 % Fluid Lymphocytes % 34.0 % Fluid Monocytes % 1.0 % Fluid Eosinophils % 0.0 % Fluid Basophils % 0.0 % Fluid Other Cells % 47.0 % BAL A. galactomannan Ag POSITIVE A (Negative) Stool Occult Blood Negative (Negative) A. baumannii (PCR) (Not Detect) Chlamy pneumoniae PCR (Not Detect) Adenovirus (PCR) (Not Detect) Blastomyces Ab Comp Fx B. pertussis DNA (PCR) (Not Detect) B.parapertussis DNA PCR (Not Detect) Kelsey albicans (PCR) (Not Detect) C. glabrata (PCR) (Not Detect) C. krusei (PCR) (Not Detect) C. parapsilosis (PCR) (Not Detect) C. tropicalis (PCR) (Not Detect) Coronavirus OC43 (PCR) (Not Detect) Coronavirus HKU1 (PCR) (Not Detect) Coronavirus 229E (PCR) (Not Detect) Coronavirus NL63 (PCR) (Not Detect) Enterobacteriac sp PCR (Not Detect) E. cloacae complex PCR (Not Detect) Enterococcus sp PCR (Not Detect) E. coli (PCR) (Not Detect) H. influenzae (PCR) (Not Detect) Histoplasma Antigen U/mL Histoplasma Ag Interp (Negative) Human Metapneumovir PCR (Not Detect) Influenza A (H1) PCR (Not Detect) Influ A (H1N1/09) PCR (Not Detect) Influenza A (H3) PCR (Not Detect) Influenza Type A (PCR) Influenza A Untype (PCR) (Not Detect) Influenza Type B (PCR) (Not Detect) Klebsiella oxytoca PCR (Not Detect) Klebsiella pneumoniae (Not Detect) List. monocytogenes PCR (Not Detect) M.pneumoniae DNA (PCR) (Not Detect) N. meningitidis (PCR) (Not Detect) Parainfluenza 1 (PCR) (Not Detect) Parainfluenza 2 (PCR) (Not Detect) Parainfluenza 3 (PCR) (Not Detect) Parainfluenza 4 (PCR) (Not Detect) A. galactomannan Ag (Negative) A. galactomannan Ag Idx Proteus species (PCR) (Not Detect) RSV (PCR) (Not Detect) Entero/Rhino (PCR) (Not Detect) Serratia marcescens PCR (Not Detect) Staphylococcus sp PCR (Not Detect) Staph aureus (PCR) (Not Detect) mecA-Methicil Res Gene (Not Detect) Streptococcus sp PCR (Not Detect) Group A Strep DNA (Not Detect) Group B Strep (PCR) (Not Detect) Strep pneumoniae (PCR) (Not Detect) P. aeruginosa (PCR) (Not Detect) Yony/B-Vanco Res Genes (Not Detect) KPC (blaKPC) Detect PCR (Not Detect) Beta-(1,3)-D-Glucan pg/mL B-(1,3)-D-Glucan Intrp (Negative) 11/28/17 11/28/17 11/28/17 Range/Units 13:00 05:30 05:30 Fluid Source NOT PROVIDED Fluid Volume mL Fluid Appearance (Clear) Fluid RBC (No Ref Range) M/mcL Fld Tot Nucleated Cell (No Ref Range) TNC/mcL Fluid Seg Neutrophil % % Fld Band Neutrophil % % Fluid Lymphocytes % % Fluid Monocytes % % Fluid Eosinophils % % Fluid Basophils % % Fluid Other Cells % % BAL A. galactomannan Ag (Negative) Stool Occult Blood (Negative) A. baumannii (PCR) (Not Detect) Chlamy pneumoniae PCR (Not Detect) Adenovirus (PCR) (Not Detect) Blastomyces Ab Comp Fx B. pertussis DNA (PCR) (Not Detect) B.parapertussis DNA PCR (Not Detect) Kelsey albicans (PCR) (Not Detect) C. glabrata (PCR) (Not Detect) C. krusei (PCR) (Not Detect) C. parapsilosis (PCR) (Not Detect) C. tropicalis (PCR) (Not Detect) Coronavirus OC43 (PCR) (Not Detect) Coronavirus HKU1 (PCR) (Not Detect) Coronavirus 229E (PCR) (Not Detect) Coronavirus NL63 (PCR) (Not Detect) Enterobacteriac sp PCR (Not Detect) E. cloacae complex PCR (Not Detect) Enterococcus sp PCR (Not Detect) E. coli (PCR) (Not Detect) H. influenzae (PCR) (Not Detect) Histoplasma Antigen U/mL Histoplasma Ag Interp (Negative) Human Metapneumovir PCR (Not Detect) Influenza A (H1) PCR (Not Detect) Influ A (H1N1/09) PCR (Not Detect) Influenza A (H3) PCR (Not Detect) Influenza Type A (PCR) DETECTED A Influenza A Untype (PCR) (Not Detect) Influenza Type B (PCR) NOT DETECTED (Not Detect) Klebsiella oxytoca PCR (Not Detect) Klebsiella pneumoniae (Not Detect) List. monocytogenes PCR (Not Detect) M.pneumoniae DNA (PCR) (Not Detect) N. meningitidis (PCR) (Not Detect) Parainfluenza 1 (PCR) (Not Detect) Parainfluenza 2 (PCR) (Not Detect) Parainfluenza 3 (PCR) (Not Detect) Parainfluenza 4 (PCR) (Not Detect) A. galactomannan Ag NEGATIVE (Negative) A. galactomannan Ag Idx 0.06 Proteus species (PCR) (Not Detect) RSV (PCR) DETECTED A (Not Detect) Entero/Rhino (PCR) (Not Detect) Serratia marcescens PCR (Not Detect) Staphylococcus sp PCR (Not Detect) Staph aureus (PCR) (Not Detect) mecA-Methicil Res Gene (Not Detect) Streptococcus sp PCR (Not Detect) Group A Strep DNA (Not Detect) Group B Strep (PCR) (Not Detect) Strep pneumoniae (PCR) (Not Detect) P. aeruginosa (PCR) (Not Detect) Yony/B-Vanco Res Genes (Not Detect) KPC (blaKPC) Detect PCR (Not Detect) Beta-(1,3)-D-Glucan >500 pg/mL B-(1,3)-D-Glucan Intrp POSITIVE A (Negative) 11/28/17 11/18/17 11/17/17 Range/Units 05:30 08:41 18:09 Fluid Source Fluid Volume mL Fluid Appearance (Clear) Fluid RBC (No Ref Range) M/mcL Fld Tot Nucleated Cell (No Ref Range) TNC/mcL Fluid Seg Neutrophil % % Fld Band Neutrophil % % Fluid Lymphocytes % % Fluid Monocytes % % Fluid Eosinophils % % Fluid Basophils % % Fluid Other Cells % % BAL A. galactomannan Ag (Negative) Stool Occult Blood (Negative) A. baumannii (PCR) Not Detected (Not Detect) Chlamy pneumoniae PCR Not Detected (Not Detect) Adenovirus (PCR) Not Detected (Not Detect) Blastomyces Ab Comp Fx SEE BELOW B. pertussis DNA (PCR) Not Detected (Not Detect) B.parapertussis DNA PCR Not Detected (Not Detect) Kelsey albicans (PCR) Not Detected (Not Detect) C. glabrata (PCR) Not Detected (Not Detect) C. krusei (PCR) Not Detected (Not Detect) C. parapsilosis (PCR) Not Detected (Not Detect) C. tropicalis (PCR) Not Detected (Not Detect) Coronavirus OC43 (PCR) Not Detected (Not Detect) Coronavirus HKU1 (PCR) DETECTED A (Not Detect) Coronavirus 229E (PCR) Not Detected (Not Detect) Coronavirus NL63 (PCR) Not Detected (Not Detect) Enterobacteriac sp PCR Not Detected (Not Detect) E. cloacae complex PCR Not Detected (Not Detect) Enterococcus sp PCR Not Detected (Not Detect) E. coli (PCR) Not Detected (Not Detect) H. influenzae (PCR) Not Detected (Not Detect) Histoplasma Antigen <2.0 U/mL Histoplasma Ag Interp NEGATIVE (Negative) Human Metapneumovir PCR Not Detected (Not Detect) Influenza A (H1) PCR Not Detected (Not Detect) Influ A (H1N1/09) PCR Not Detected (Not Detect) Influenza A (H3) PCR Not Detected (Not Detect) Influenza Type A (PCR) Influenza A Untype (PCR) Not Detected (Not Detect) Influenza Type B (PCR) Not Detected (Not Detect) Klebsiella oxytoca PCR Not Detected (Not Detect) Klebsiella pneumoniae Not Detected (Not Detect) List. monocytogenes PCR Not Detected (Not Detect) M.pneumoniae DNA (PCR) Not Detected (Not Detect) N. meningitidis (PCR) Not Detected (Not Detect) Parainfluenza 1 (PCR) Not Detected (Not Detect) Parainfluenza 2 (PCR) Not Detected (Not Detect) Parainfluenza 3 (PCR) Not Detected (Not Detect) Parainfluenza 4 (PCR) Not Detected (Not Detect) A. galactomannan Ag (Negative) A. galactomannan Ag Idx Proteus species (PCR) Not Detected (Not Detect) RSV (PCR) DETECTED A (Not Detect) Entero/Rhino (PCR) Not Detected (Not Detect) Serratia marcescens PCR Not Detected (Not Detect) Staphylococcus sp PCR Not Detected (Not Detect) Staph aureus (PCR) Not Detected (Not Detect) mecA-Methicil Res Gene N/A (Not Detect) Streptococcus sp PCR Not Detected (Not Detect) Group A Strep DNA Not Detected (Not Detect) Group B Strep (PCR) Not Detected (Not Detect) Strep pneumoniae (PCR) Not Detected (Not Detect) P. aeruginosa (PCR) Not Detected (Not Detect) Yony/B-Vanco Res Genes N/A (Not Detect) KPC (blaKPC) Detect PCR N/A (Not Detect) Beta-(1,3)-D-Glucan pg/mL B-(1,3)-D-Glucan Intrp (Negative) 11/17/17 Range/Units 17:31 Fluid Source Fluid Volume mL Fluid Appearance (Clear) Fluid RBC (No Ref Range) M/mcL Fld Tot Nucleated Cell (No Ref Range) TNC/mcL Fluid Seg Neutrophil % % Fld Band Neutrophil % % Fluid Lymphocytes % % Fluid Monocytes % % Fluid Eosinophils % % Fluid Basophils % % Fluid Other Cells % % BAL A. galactomannan Ag (Negative) Stool Occult Blood (Negative) A. baumannii (PCR) (Not Detect) Chlamy pneumoniae PCR (Not Detect) Adenovirus (PCR) (Not Detect) Blastomyces Ab Comp Fx B. pertussis DNA (PCR) (Not Detect) B.parapertussis DNA PCR (Not Detect) Kelsey albicans (PCR) (Not Detect) C. glabrata (PCR) (Not Detect) C. krusei (PCR) (Not Detect) C. parapsilosis (PCR) (Not Detect) C. tropicalis (PCR) (Not Detect) Coronavirus OC43 (PCR) (Not Detect) Coronavirus HKU1 (PCR) (Not Detect) Coronavirus 229E (PCR) (Not Detect) Coronavirus NL63 (PCR) (Not Detect) Enterobacteriac sp PCR (Not Detect) E. cloacae complex PCR (Not Detect) Enterococcus sp PCR (Not Detect) E. coli (PCR) (Not Detect) H. influenzae (PCR) (Not Detect) Histoplasma Antigen U/mL Histoplasma Ag Interp (Negative) Human Metapneumovir PCR (Not Detect) Influenza A (H1) PCR (Not Detect) Influ A (H1N1/09) PCR (Not Detect) Influenza A (H3) PCR (Not Detect) Influenza Type A (PCR) Influenza A Untype (PCR) (Not Detect) Influenza Type B (PCR) (Not Detect) Klebsiella oxytoca PCR (Not Detect) Klebsiella pneumoniae (Not Detect) List. monocytogenes PCR (Not Detect) M.pneumoniae DNA (PCR) (Not Detect) N. meningitidis (PCR) (Not Detect) Parainfluenza 1 (PCR) (Not Detect) Parainfluenza 2 (PCR) (Not Detect) Parainfluenza 3 (PCR) (Not Detect) Parainfluenza 4 (PCR) (Not Detect) A. galactomannan Ag (Negative) A. galactomannan Ag Idx Proteus species (PCR) (Not Detect) RSV (PCR) (Not Detect) Entero/Rhino (PCR) (Not Detect) Serratia marcescens PCR (Not Detect) Staphylococcus sp PCR (Not Detect) Staph aureus (PCR) (Not Detect) mecA-Methicil Res Gene (Not Detect) Streptococcus sp PCR (Not Detect) Group A Strep DNA (Not Detect) Group B Strep (PCR) (Not Detect) Strep pneumoniae (PCR) (Not Detect) P. aeruginosa (PCR) (Not Detect) Yony/B-Vanco Res Genes (Not Detect) KPC (blaKPC) Detect PCR (Not Detect) Beta-(1,3)-D-Glucan 470 pg/mL B-(1,3)-D-Glucan Intrp POSITIVE A (Negative) Exam - Constitutional Vitals: Temp Pulse Resp BP Pulse Ox 97.7 F 79 18 143/68 98 12/11/17 07:09 12/11/17 07:09 12/11/17 07:09 12/11/17 07:09 12/11/17 07:09 General appearance: cooperative, no acute distress, thin - Head Head exam: Present: atraumatic, normal inspection, normocephalic - Eye Eye exam: Present: EOMI, normal appearance, PERRL Pupils: Present: normal accommodation - ENT ENT exam: Present: mucous membranes dry - Neck Neck exam: Present: normal inspection - Respiratory Respiratory exam: Present: rhonchi (throughout). Absent: rales, respiratory distress, wheezes, tachypnea - Cardiovascular Cardiovascular exam: Present: RRR, +S1, +S2 - GI/Abdominal GI/Abdominal exam: Present: normal bowel sounds, soft, tenderness (generalized) . Absent: distended Additional comments: Urostomy noted to the RLQ with small amount of clear yellow urine noted in the collection bag. Colostomy noted to the LLQ with small amount of light brown liquid stool noted in the collection bag. - Extremities Exam Extremities exam: Present: normal inspection. Absent: joint swelling, pedal edema, tenderness - Neurological Exam Neurological exam: Present: alert, oriented X3, no focal deficits - Psychiatric Psychiatric exam: Present: normal affect, normal mood - Skin Skin exam: Present: dry, intact, normal color, warm - Additional findings Additional findings: AV fistula noted to the LUE +/+. - VTE Documentation of Mechanical Device: Intermittent pneumatic compression device Consult Discharge Plan - Plan Referrals: Na Johansen, PHYSICAL SCIENCES PROFESSOR [Primary Care Provider] - (Call at discharge due to lengthy stay) - Attending Attestation I examined this patient and my medical decision-making was reviewed with the Resident Physician. I agree with the documented findings, disposition and treatment plan as described except to the extent set forth below.
[2017-12-11] MEDS: Ipratropium/Albuterol Neb 3 ML IH PRN ×2 (15:30→20:15)
[2017-12-11] MEDS: TRIMETH IVPB SCH (17:17)
[2017-12-11] MEDS: WATER IVPB SCH (17:17)
[2017-12-11] MEDS: SULFAMETHOXAZOLE IVPB SCH (17:17)
[2017-12-11] MEDS: D5 IVPB SCH (17:17)
--- NOTE | 2017-12-11 17:37 | Internal Med Progress Note ---
Date of Encounter: 12/11/17 Time of Encounter: 10:30 - Assessment and plan (1) Cavitary lesion of lung Current Visit: Yes Status: Acute Assessment and plan: Patient has history of abnormal CT chest with multiple images showing diffuse tree-in-bud appearance of lung parenchyma suggestive of infection/inflammation along with cavitary lesions in upper lobe. Infectious diseases has been on board. Repeat CT chest today shows improvement in cavitary lesions, persistent diffuse infectious/inflammatory process. Continue IV Bactrim to complete a two-week course. Continue IV fluconazole for fungal anemia and possible septic emboli in bilateral lungs. Case discussed extensively with pulmonology, , and no further plan of care can be agreed-upon. Unfortunately, patient does have extensive advanced COPD, continues to smoke when outpatient, along with subacute to chronic infectious/inflammatory changes on her CT chest. She may continue to have diffuse rhonchi and cough despite complete medical management. We will follow ID recommendations, continue supplemental oxygen, inhaled corticosteroids , tapering oral steroids, Mucinex. Will consider low-dose azithromycin after completing fluconazole to avoid prolonged QT. (2) Fungemia Current Visit: Yes Status: Acute Assessment and plan: Patient was discharged on total parenteral nutrition after her previous admission. 2 sets of peripheral blood cultures each from November 14 and grew Kelsey lusitaniae; blood cultures from November 17 are negative. One set of blood cultures from port system from November 17 due to Kelsey, repeat blood cultures from port system from November 19 onwards were negative. Patient was evaluated by ophthalmology-no evidence of endophthalmitis was appreciated. Infectious diseases on board, continue IV fluconazole until December 15. (3) Pneumonia Current Visit: Yes Status: Suspected Assessment and plan: BAL from right middle lobe grew Enterobacter chloacae- MDRO. Acid-fast stain negative. Preliminary fungal culture shows Kelsey species, not albicans. Repeat CT chest findings as above. Continue IV fluconazole and Bactrim has been added for MDRO Enterobacter. Continue supportive care and supplemental oxygen. Blood culture results as above. Qualifiers: Pneumonia type: due to unspecified organism Laterality: bilateral Lung location: lower lobe of lung Qualified Code(s): J18.9 - Pneumonia, unspecified organism (4) Sepsis Current Visit: Yes Status: Resolved Qualifiers: Sepsis type: sepsis due to unspecified organism Qualified Code(s): A41.9 - Sepsis, unspecified organism (5) COPD exacerbation Current Visit: Yes Status: Acute Assessment and plan: Patient has severe COPD with cachexia and malnutrition. She always has diffuse rhonchi. Unfortunately, very difficult to completely treat patient and achieve clear lungs/breathing status; remains hemodynamically stable with no increasing oxygen requirements. Respiratory viral panel was positive for RSV, coronavirus, influenza a. Continues to require 3-4 L/m supplemental oxygen via nasal cannula, probably new baseline. Continue as needed bronchodilators, parenteral steroids, inhaled corticosteroids. (6) Goals of care, counseling/discussion Current Visit: Yes Status: Acute (7) Anemia in chronic kidney disease Current Visit: Yes Status: Chronic Assessment and plan: Hemoglobin improved to 8.5 status post 2 units PRBC. Stool occult blood testing has been negative during this admission. Qualifiers: Chronic kidney disease stage: on chronic dialysis Qualified Code(s): N18.6 - End stage renal disease; D63.1 - Anemia in chronic kidney disease; Z99.2 - Dependence on renal dialysis (8) Atrial fibrillation Current Visit: Yes Status: Chronic Qualifiers: Atrial fibrillation type: chronic Qualified Code(s): I48.2 - Chronic atrial fibrillation (9) ESRD (end stage renal disease) on dialysis Current Visit: Yes Status: Chronic Assessment and plan: Nephrology on board, patient is receiving regular hemodialysis sessions. (10) Hypothyroid Current Visit: Yes Status: Chronic Qualifiers: Hypothyroidism type: unspecified Qualified Code(s): E03.9 - Hypothyroidism , unspecified (11) Tobacco abuse Current Visit: Yes Status: Chronic (12) Acute respiratory failure with hypoxia Current Visit: Yes Status: Acute - Subjective Interval history: Reports having some rattling in her chest and continues to have some cough and diarrhea. No nausea, vomiting, fever or chills. - Constitutional Vitals: Temp Pulse Resp BP Pulse Ox 98.1 F 83 16 157/64 99 12/11/17 15:53 12/11/17 15:53 12/11/17 15:53 12/11/17 15:53 12/11/17 15:53 General appearance: Present: cachectic, A&O X 3 (Extremely hard of hearing, does have selective hearing), underweight, answers questions appropriately - Respiratory Respiratory exam: Present: CTAB (Bilateral coarse rhonchorous breath sounds). Absent: accessory muscle use, rales, rhonchi, wheezes - Cardiovascular Cardiovascular exam: Present: RRR, +S1, +S2. Absent: diastolic murmur, gallop, rubs, systolic murmur - GI/Abdominal GI/Abdominal exam: Present: normal bowel sounds, soft (Scaphoid abdomen with multiple surgical scars and underlying fibrotic scar tissue. Ileostomy and urostomy in place.), no peritoneal signs. Absent: distended, tenderness - Extremities Exam Extremities exam: Present: full ROM, warm, radial pulses palpable and symmetrical. Absent: calf tenderness, cyanotic, pedal edema - Neurological Exam Neurological exam: Present: CN II-XII intact, oriented X3, no focal deficits. Absent: pronater drift, facial droop, speech deficit Internal Medicine: Result - Labs CBC & Chem 7: 12/12/17 04:40 12/12/17 04:40 Labs: Short CBC 12/11/17 Range/Units 04:00 WBC 3.8 L (4.3-11.1) K/mcL Hgb 8.5 L D (11.5-15.4) g/dL Hct 27.3 L (35.3-44.9) % Plt Count 76 L (140-400) K/mcL Neutrophils # 2.7 (1.6-8.9) K/mcL BMP 12/11/17 04:00 Sodium 137 Potassium 3.9 Chloride 102 Carbon Dioxide 29 BUN 16 Creatinine 3.26 H Glucose 79 Calcium 7.7 L - ABG Interpretation ABG results: ABG ABG pH 7.35 pH Units (7.32-7.45) 12/09/17 04:48 ABG pCO2 58 mmHg (35-45) H 12/09/17 04:48 ABG pO2 92 mmHg (85-104) 12/09/17 04:48 ABG O2 Saturation 96 % (95-98) 12/09/17 04:48 PT/INR, D-dimer PT 16.2 Seconds (9.4-12.1) H 11/14/17 10:30 - VTE Documentation of Mechanical Device: Intermittent pneumatic compression device Consult Discharge Plan - Plan Referrals: Na Johansen, [employer] [Primary Care Provider] - (Call at discharge due to lengthy stay Patient will go to [facility])
[2017-12-12] MEDS: *HR* OxyCODONE Immed Rel 5 MG TABLET PO PRN ×3 (03:56→18:02)
[2017-12-12] MEDS: Ondansetron 4 MG/2 ML VIAL IVP PRN (03:56)
[2017-12-12 04:58] LABS: Hematocrit 26.5 % (35.3-44.9); Immature Granulocytes % 0.3 % (0-4)
[2017-12-12 05:00] LABS: Eosinophils % 1.3 %; Hemoglobin 8.3 g/dL (11.5-15.4); Immature Platelets 5.1 % (1.1-6.1); Lymphocytes % 31.6 %; Mean Corpuscular HGB Conc 31.3 g/dL (31.6-35.5); Mean Corpuscular Hemoglobin 28.7 pg (28.0-33.3); Mean Corpuscular Volume 91.7 fL (83.0-100.0); Monocytes # 0.1 K/mcL (0.0-1.3); Monocytes % 4.5 %; Neutrophils # 1.9 K/mcL (1.6-8.9); Nucleated Red Blood Cells 0.6 /100 WBC (0); Red Blood Count 2.89 M/mcL (3.82-4.97); Red Cell Distribution Width 15.8 % (11.5-14.5); Segmented Neutrophils % 62.3 %
[2017-12-12 05:02] LABS: Platelet Count 82 K/mcL (140-400)
[2017-12-12 05:50] LABS: Calcium 6.9 mg/dL (8.6-10.3); Potassium 4.3 mEq/L (3.5-5.1)
[2017-12-12] MEDS: SULFAMETHOXAZOLE IVPB SCH ×2 (05:56→17:58)
[2017-12-12] MEDS: TRIMETH IVPB SCH ×2 (05:56→17:58)
[2017-12-12] MEDS: D5 IVPB SCH ×2 (05:56→17:58)
[2017-12-12] MEDS: WATER IVPB SCH ×2 (05:56→17:58)
[2017-12-12] MEDS: *HR* Acetylcysteine 20% 600 MG/3 ML ORAL SYRINGE PO SCH ×2 (07:33→21:50)
[2017-12-12] MEDS: predniSONE 10 MG TABLET PO SCH (07:33)
[2017-12-12] MEDS: Fluticasone Propionate Nasal 50 MCG/SPRAY BOTTLE NS SCH (07:33)
[2017-12-12] MEDS: Calcium Acetate 667 MG CAPSULE PO SCH ×3 (07:33→16:35)
[2017-12-12] MEDS: Nicotine 21 MG PATCH.TD24 TD SCH (07:34)
[2017-12-12] MEDS ORDERED: 0.9 % Sodium Chloride 250 ML IVC PRN (07:42)
[2017-12-12] MEDS ORDERED: 0.9 % Sodium Chloride 1,000 ML PRIME SCH (07:45)
--- NOTE | 2017-12-12 10:08 | Nephrology Progress Note ---
Date of Encounter: 12/12/17 Time of Encounter: 09:15 - Assessment and Plan (1) ESRD (end stage renal disease) on dialysis Current Visit: Yes Status: Chronic ESRD on HD M/W/F and due for HD today (Friday). Anemia of CKD: cont IVANNA, for a goal Hgb of 10-11 HTN/volume status: UF with HD today and she appeared euvolemic on exam. BPs are controlled. MBD of CKD: chronic hypocalcemia with vit D def and SHPT: cont using a 3Ca bath with HD and vit D2 Ergocalciferol which would help both vit D def/suppression of iPTH/and incremental increase in serum Ca Nutrition: recommend renal diet (low Phos and low K diet) for a goal serum albumin of 4. Please provide Nepro as needed with meals. Dialysis access: LUE AVF with thrill and smooth continuous bruit Pulmonary: as per primary. Next HD is planned for Friday. Will be available over the weekend - please call/ page if needed. Thank you. (2) Hyperphosphatemia Current Visit: No Status: Chronic Phos restriction in her diet is recommended. See above. (3) Hypocalcemia Current Visit: No Status: Chronic Chronic. Using a higher Ca bath (3) with dialysis. See above. (4) Anemia in CKD (chronic kidney disease) Current Visit: No Status: Chronic Goal Hgb is 10-11 and may need IV iron and/or IVANNA. Qualifiers: Chronic kidney disease stage: on chronic dialysis Qualified Code(s): N18.6 - End stage renal disease; D63.1 - Anemia in chronic kidney disease; D63.1 - Anemia in chronic kidney disease; Z99.2 - Dependence on renal dialysis; Z99.2 - Dependence on renal dialysis; Z99.2 - Dependence on renal dialysis; Z99.2 - Dependence on renal dialysis Subjective Principal diagnosis: hypoxic respiratiory failure 2/2 COPD exacerbation 2/2 PNA Interval history: Pt was s/e earlier today while on HD. She reported having a chronic cough and pain with deep breaths (subacute -- onset several months ago) but it was slightly worse and she is requesting more opioids (Will defer to the primary team). She did not affirm cramping or N/V while on or d/t dialysis. No new ostomy bag issues, she affirmed. Objective - Vital Signs Vital signs: Vital Signs Temp Pulse Resp BP Pulse Ox 12/12/17 07:11 98.0 F 79 16 134/60 98 12/12/17 04:34 98.1 F 79 18 123/55 96 12/12/17 00:42 98.3 F 78 16 144/68 98 12/11/17 20:15 20 142/55 97 12/11/17 20:03 98 F 81 20 142/55 97 12/11/17 15:53 98.1 F 83 16 157/64 99 12/11/17 15:30 16 99 12/11/17 10:54 97.8 F 82 18 148/66 97 Intake and Output 12/11/17 12/12/17 12/12/17 23:59 07:59 15:59 Intake Total 0 / 0 240 / 240 Balance 0 / 0 240 / 240 Intake: Oral 0 / 0 240 / 240 Other: Meal Breakfast Percent of Meal Consumed 70% Stool Color Yellow Green Weight 54.023 kg Patient Weight 12/12/17 23:59 Weight 54.023 kg - General Appearance General appearance: Present: cachectic, chronically ill, fatigue, frail EENT: Present: ATNC, mucous membranes moist Neck: Present: supple Respiratory: Present: wheezing, rales, course breath sounds, rhonchi Cardiology: Present: no edema, regular rate, regular rhythm, normal S1, normal S2 Dialysis Vascular Access: Arteriovenous Fistula (LUE) thrill: Yes bruit: Yes Gastrointestinal: Present: normoactive bowel sounds, no tenderness, no guarding Additional Comments: thin; ostomy bags Integumentary: Present: warm and dry Neurologic: Present: no focal deficit, no asterixis, alert and oriented x3 Musculoskeletal: Present: no erythema, no cyanosis, no clubbing Psychiatric: Present: mood/affect appropriate, cooperative - Lab 12/12/17 04:40 12/12/17 04:40 Most recent lab results ABG pH 7.35 pH Units (7.32-7.45) 12/09/17 04:48 ABG pCO2 58 mmHg (35-45) H 12/09/17 04:48 ABG pO2 92 mmHg (85-104) 12/09/17 04:48 ABG HCO3 32 mEq/L (21-27) H 12/09/17 04:48 ABG O2 Saturation 96 % (95-98) 12/09/17 04:48 Calcium 6.9 mg/dL (8.6-10.3) L 12/12/17 04:40 Phosphorus 3.2 mg/dL (2.7-4.5) 12/11/17 04:00 Magnesium 2.0 mg/dL (1.6-2.6) 12/11/17 04:00 - VTE Documentation of Mechanical Device: Intermittent pneumatic compression device Consult Discharge Plan - Plan Referrals: Na Johansen, [employer] [Primary Care Provider] - (Call at discharge due to lengthy stay)
[2017-12-12] MEDS ORDERED: 0.9 % Sodium Chloride 2,000 ML ONE (12:15)
[2017-12-12] MEDS: *HR* LORazepam 0.5 MG TABLET PO PRN (13:20)
--- NOTE | 2017-12-12 13:47 | Infectious Disease Progress No ---
Date of Encounter: 12/12/17 Time of Encounter: 13:44 - Assessment and Plan (1) Sepsis Current Visit: Yes Status: Resolved Severe sepsis on admission. The patient had two SIRS criteria with hypotension responsive to IV fluids. Likely secondary to fungemia and PNA. Resolved. The patient has been afebrile. Hypotension has resolved. Tachycardia has resolved. Peripheral blood cultures drawn 11/14/17 were positive 2/2 for Kelsey lusitaniae. Additional peripheral fungal blood culture drawn 11/16/17 is positive as well. Peripheral blood cultures drawn 11/17/16 were negative. A-port blood cultures drawn 11/17/17 were positive. Repeat blood cultures x 2 sets drawn 11/27/17 are negative. Qualifiers: Sepsis type: sepsis due to unspecified organism Qualified Code(s): A41.9 - Sepsis, unspecified organism (2) Fungemia Current Visit: Yes Status: Acute Causative organism Kelsey lusitiniae. Source unclear, but the patient was recently on TPN given through her a-port. Her a-port was removed 11/18/17. Peripheral blood cultures drawn 11/14/17 were positive 2/2. Additional peripheral fungal blood culture drawn 11/16/17 is positive as well. No blood cultures were drawn from the patient's a-port before antifungals were started. Repeat blood cultures x 2 sets from the a-port are positive and x2 sets from a peripheral stick drawn 11/17/17 are negative. Additional blood cultures drawn 11/27/17 are NGTD x 2 sets. Continue fluconazole, 400mg IV daily on HD days only. Treat through 12/15/17. Recommend keeping IV since the patient likely has poor absorption through the GI tract due to her SGS. Opthalmology evaluation noted and appreciated. No endopthalmitis. Duration of treatment depends on the clinical picture. Monitor CBC and LFTs while on antifungals. Repeat LFTs today. Will add to this morning's labs. (3) Cavitary lesion of lung Current Visit: Yes Status: Acute CTA of the chest shows new when compared to previous examination (Oct 2017) multiple focal areas of consolidation within the periphery of the lungs, some with focal cavitation. Per radiology, given the rapid development, septic emboli are primarily considered. In addition, there are innumerable punctate centrilobular tree-in-bud ground-glass nodules that have an inflammatory/ infectious appearance, likely related related to infectious bronchiolitis, but could also be hematogenous as well. CT scan reviewed with Pulmonology team. Etiology unclear: fungemia vs. other. No CT scan obtained during this hospitalization to tell us if these lesions were there on admission or not. Pulmonology recommendations noted and appreciated. Status post bronchoscopy 11/28. Endoscopy report reviewed. Minimal secretions noted. No mucous plugs. BAL of the RML grew MDRO E. cloacae. MHT negative for CRE. Patient remains stable off antibiotics. Continue antifungals as above. Fungal serologies noted. Fungitell positive. BAL Aspergillus galactomannan positive, but serum negative. BAL pathology negative for fungal elements or malignancy. Discussed with pulmonology. No clinical picture indicates invasive infection: no new worsening cough, shortness of breath is at baseline, afebrile , does not appear toxic. She has been on and off steroids during her hospitalization, but she is not chronically immunosuppressed. Bronch really did not look impressive per pulmonology and the pulmonary team does not believe that the patient has invasive aspergillosis. Also reviewed [facility] Lab specimen clinical interpretation website and Histoplasma may cross-react with the Aspergillus antigen assay, leading to false positive test result. At this point, we will not broaden antifungal coverage to Voriconazole. Check Aspergillus IgE.--> pending. Repeat CT scan of the chest done 12/08/17 noted. Discussed with pulmonology. Bronchiolitis changes are worse, but cavitary nodules minimally better. As for the Enterobacter cloace, not sure if this is a true infection vs. colonization. Given that the patient's repeat CT scan is not changed much, will start IV Bactrim x 14 days. Will request pharmacy's help with dosing for her HD schedule. Recommend IV since the patient's GI absorption is likely minimal due to her SGS. Continue droplet precautions. Will plan on repeating CT scan once the patient completes IV antibiotics. (4) Pneumonia Current Visit: Yes Status: Suspected Location: Bilaterally. Causative organism unclear, but possible viral. RIP positive for HSV and Coronavirus. Previous sputum cultures positive for S. maltophilia, PSEA, and E. coli. CXR showed patchy airspace opacities bilaterally, more pronounced in the right lung base. Previously completed a 7 day course of Levaquin and 8 days of Zosyn. Review of the medical record shows that the patient has had multiple recurrences of PNA over the past six months. Pulmonology consulted. Status post bronchoscopy 11/28/17. Endoscopy report reviewed. Minimal secretions. RML BAL shows MDRO E. cloacae (not CRE). Given that the patient's CT scan is not much improved, IV Bactrim was started. Continue for 14 days. Pharmacy to assist with dosing for the patient's ESRD. Non-candidal yeast species noted on BAL. Final ID pending. Continue fluconazole as above. Qualifiers: Pneumonia type: due to unspecified organism Laterality: right Lung location: lower lobe of lung Qualified Code(s): J18.1 - Lobar pneumonia, unspecified organism (5) Bicytopenia Current Visit: No Status: Chronic Continues to have anemia and thrombocytopenia. Leukopenia persists today, but is stable. Continue trend. Likely secondary to ESRD. Further workup and management per the primary team. (6) Chest pain Current Visit: Yes Status: Acute Appears musculoskeletal in origin. Likely secondary to PNA and chostochondritis. Troponin elevated likely secondary to demand ischemia from ESRD. Further workup and management per the primary team. Qualifiers: Chest pain type: unspecified Qualified Code(s): R07.9 - Chest pain, unspecified (7) Elevated troponin Current Visit: Yes Status: Acute Likely chronic secondary to CKD. EKG shows no acute changes. Further workup and management per the primary team. (8) Nausea and vomiting Current Visit: No Status: Chronic Likely secondary to short gut syndrome. Management per the primary team. Qualifiers: Vomiting type: unspecified Vomiting Intractability: non-intractable Qualified Code(s): R11.2 - Nausea with vomiting, unspecified (9) Abdominal pain Current Visit: No Status: Chronic Chronic. Further workup and management per the primary team. Qualifiers: Abdominal location: lower abdomen, unspecified Qualified Code(s): R10.30 - Lower abdominal pain, unspecified (10) Anemia in chronic kidney disease Current Visit: Yes Status: Chronic Likely multifactorial: poor nutrition + anemia of CKD. Management per the primary and nephrology teams. Qualifiers: Chronic kidney disease stage: on chronic dialysis Qualified Code(s): N18.6 - End stage renal disease; D63.1 - Anemia in chronic kidney disease; Z99.2 - Dependence on renal dialysis (11) COPD (chronic obstructive pulmonary disease) Current Visit: No Status: Chronic Management per the primary and pulmonology teams. Qualifiers: COPD type: emphysema Emphysema type: panlobular Qualified Code(s): J43.1 - Panlobular emphysema (12) ESRD (end stage renal disease) on dialysis Current Visit: Yes Status: Chronic Nephrology consulted and following. 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 Recently started on TPN, but the patient could not tolerate. Likely contributing to the patient's poor nutritional status. Management per the primary team. (14) Tobacco abuse Current Visit: Yes Status: Chronic - Subjective Interval history: Patient seen and examined in the HD unit. No acute events noted overnight. Patient states she feels a little better today. Continues to reports pain in her entire chest, worse with deep cough or inspiration. She reports moist cough that is now productive of yellow sputum. She does not appear to be in any acute distress. She reports chronic nausea and vomiting with by mouth intake. She states she only ate a little breakfast this morning. She reports liquid stool from her colostomy. She denies blood from her urostomy or colostomy. She denies oral thrush or new skin lesions. She denies fevers, chills, or rigors, but states she is always cold. Infect Dis PN-Objective Data - Labs CBC & Chem 7: 12/12/17 04:40 12/12/17 04:40 Labs: Laboratory Results - last 24 hr 12/12/17 12/12/17 04:40 04:40 WBC 3.1 L RBC 2.89 L Hgb 8.3 L Hct 26.5 L MCV 91.7 MCH 28.7 MCHC 31.3 L RDW 15.8 H Plt Count 82 L MPV 11.0 Immature Gran % 0.3 Seg Neutrophils % 62.3 Lymphocytes % 31.6 Monocytes % 4.5 Eosinophils % 1.3 Basophils % 0.0 Neutrophils # 1.9 Lymphocytes # 1.0 Monocytes # 0.1 Eosinophils # 0.0 Basophils # 0.0 Nucleated RBCs/100 WBC 0.6 H Immature Plt Fraction 5.1 Sodium 135 L Potassium 4.3 Chloride 103 Carbon Dioxide 22 L BUN 24 H Creatinine 4.57 H Est GFR ( Amer) 11 L Est GFR (Non-Af Amer) 9 L BUN/Creatinine Ratio 5 L Glucose 74 Calculated Osmolality 283 Calcium 6.9 L Cultures: Cultures 12/06/17 09:07 Anaerobic Culture - Final Chest No anaerobes were recovered. 11/28/17 13:00 Legionella Culture - Final Right Middle Lobe Lung Legionella Culture - Final 12/06/17 09:07 Wound Culture - Final Chest No growth. 11/28/17 13:00 Gram Stain - Final Right Middle Lobe Lung Respiratory Culture - Final Enterobacter cloacae MDRO 11/27/17 09:38 Blood Culture - Final Peripheral Venipuncture No growth. 11/27/17 08:37 Blood Culture - Final Peripheral Venipuncture No growth. 11/28/17 13:00 Fungal Culture - Preliminary Right Middle Lobe Lung Kelsey species, not ablicans 11/27/17 12:10 Fungal Culture - Final Left Arm No growth. 11/28/17 13:00 Acid Fast Stain - Final Right Middle Lobe Lung 11/16/17 05:13 Blood Fungal Culture - Final Peripheral Venipuncture No growth. 11/19/17 07:30 Blood Culture - Final Port System No growth. 11/19/17 07:35 Blood Culture - Final Port System No growth. 11/17/17 17:31 Blood Culture - Final Peripheral Venipuncture No growth. 11/17/17 17:31 Blood Culture - Final Peripheral Venipuncture No growth. 11/19/17 10:10 Catheter Tip Culture - Final Intravenous or Arterial Cath No growth. 11/17/17 18:09 Blood Culture - Final Port System Kelsey lusitaniae 11/16/17 05:05 Blood Fungal Culture - Final Peripheral Venipuncture Kelsey lusitaniae Serology 11/30/17 11/28/17 11/28/17 Range/Units 18:00 13:00 13:00 Fluid Source RML BAL Fluid Volume 25 mL Fluid Appearance Cloudy A (Clear) Fluid RBC 0.002 (No Ref Range) M/mcL Fld Tot Nucleated Cell 1663 (No Ref Range) TNC/mcL Fluid Seg Neutrophil % 18.0 % Fld Band Neutrophil % 0.0 % Fluid Lymphocytes % 34.0 % Fluid Monocytes % 1.0 % Fluid Eosinophils % 0.0 % Fluid Basophils % 0.0 % Fluid Other Cells % 47.0 % BAL A. galactomannan Ag POSITIVE A (Negative) Stool Occult Blood Negative (Negative) A. baumannii (PCR) (Not Detect) Chlamy pneumoniae PCR (Not Detect) Adenovirus (PCR) (Not Detect) Blastomyces Ab Comp Fx B. pertussis DNA (PCR) (Not Detect) B.parapertussis DNA PCR (Not Detect) Kelsey albicans (PCR) (Not Detect) C. glabrata (PCR) (Not Detect) C. krusei (PCR) (Not Detect) C. parapsilosis (PCR) (Not Detect) C. tropicalis (PCR) (Not Detect) Coronavirus OC43 (PCR) (Not Detect) Coronavirus HKU1 (PCR) (Not Detect) Coronavirus 229E (PCR) (Not Detect) Coronavirus NL63 (PCR) (Not Detect) Enterobacteriac sp PCR (Not Detect) E. cloacae complex PCR (Not Detect) Enterococcus sp PCR (Not Detect) E. coli (PCR) (Not Detect) H. influenzae (PCR) (Not Detect) Histoplasma Antigen U/mL Histoplasma Ag Interp (Negative) Human Metapneumovir PCR (Not Detect) Influenza A (H1) PCR (Not Detect) Influ A (H1N1/09) PCR (Not Detect) Influenza A (H3) PCR (Not Detect) Influenza Type A (PCR) Influenza A Untype (PCR) (Not Detect) Influenza Type B (PCR) (Not Detect) Klebsiella oxytoca PCR (Not Detect) Klebsiella pneumoniae (Not Detect) List. monocytogenes PCR (Not Detect) M.pneumoniae DNA (PCR) (Not Detect) N. meningitidis (PCR) (Not Detect) Parainfluenza 1 (PCR) (Not Detect) Parainfluenza 2 (PCR) (Not Detect) Parainfluenza 3 (PCR) (Not Detect) Parainfluenza 4 (PCR) (Not Detect) A. galactomannan Ag (Negative) A. galactomannan Ag Idx Proteus species (PCR) (Not Detect) RSV (PCR) (Not Detect) Entero/Rhino (PCR) (Not Detect) Serratia marcescens PCR (Not Detect) Staphylococcus sp PCR (Not Detect) Staph aureus (PCR) (Not Detect) mecA-Methicil Res Gene (Not Detect) Streptococcus sp PCR (Not Detect) Group A Strep DNA (Not Detect) Group B Strep (PCR) (Not Detect) Strep pneumoniae (PCR) (Not Detect) P. aeruginosa (PCR) (Not Detect) Yony/B-Vanco Res Genes (Not Detect) KPC (blaKPC) Detect PCR (Not Detect) Beta-(1,3)-D-Glucan pg/mL B-(1,3)-D-Glucan Intrp (Negative) 11/28/17 11/28/17 11/28/17 Range/Units 13:00 05:30 05:30 Fluid Source NOT PROVIDED Fluid Volume mL Fluid Appearance (Clear) Fluid RBC (No Ref Range) M/mcL Fld Tot Nucleated Cell (No Ref Range) TNC/mcL Fluid Seg Neutrophil % % Fld Band Neutrophil % % Fluid Lymphocytes % % Fluid Monocytes % % Fluid Eosinophils % % Fluid Basophils % % Fluid Other Cells % % BAL A. galactomannan Ag (Negative) Stool Occult Blood (Negative) A. baumannii (PCR) (Not Detect) Chlamy pneumoniae PCR (Not Detect) Adenovirus (PCR) (Not Detect) Blastomyces Ab Comp Fx B. pertussis DNA (PCR) (Not Detect) B.parapertussis DNA PCR (Not Detect) Kelsey albicans (PCR) (Not Detect) C. glabrata (PCR) (Not Detect) C. krusei (PCR) (Not Detect) C. parapsilosis (PCR) (Not Detect) C. tropicalis (PCR) (Not Detect) Coronavirus OC43 (PCR) (Not Detect) Coronavirus HKU1 (PCR) (Not Detect) Coronavirus 229E (PCR) (Not Detect) Coronavirus NL63 (PCR) (Not Detect) Enterobacteriac sp PCR (Not Detect) E. cloacae complex PCR (Not Detect) Enterococcus sp PCR (Not Detect) E. coli (PCR) (Not Detect) H. influenzae (PCR) (Not Detect) Histoplasma Antigen U/mL Histoplasma Ag Interp (Negative) Human Metapneumovir PCR (Not Detect) Influenza A (H1) PCR (Not Detect) Influ A (H1N1/09) PCR (Not Detect) Influenza A (H3) PCR (Not Detect) Influenza Type A (PCR) DETECTED A Influenza A Untype (PCR) (Not Detect) Influenza Type B (PCR) NOT DETECTED (Not Detect) Klebsiella oxytoca PCR (Not Detect) Klebsiella pneumoniae (Not Detect) List. monocytogenes PCR (Not Detect) M.pneumoniae DNA (PCR) (Not Detect) N. meningitidis (PCR) (Not Detect) Parainfluenza 1 (PCR) (Not Detect) Parainfluenza 2 (PCR) (Not Detect) Parainfluenza 3 (PCR) (Not Detect) Parainfluenza 4 (PCR) (Not Detect) A. galactomannan Ag NEGATIVE (Negative) A. galactomannan Ag Idx 0.06 Proteus species (PCR) (Not Detect) RSV (PCR) DETECTED A (Not Detect) Entero/Rhino (PCR) (Not Detect) Serratia marcescens PCR (Not Detect) Staphylococcus sp PCR (Not Detect) Staph aureus (PCR) (Not Detect) mecA-Methicil Res Gene (Not Detect) Streptococcus sp PCR (Not Detect) Group A Strep DNA (Not Detect) Group B Strep (PCR) (Not Detect) Strep pneumoniae (PCR) (Not Detect) P. aeruginosa (PCR) (Not Detect) Yony/B-Vanco Res Genes (Not Detect) KPC (blaKPC) Detect PCR (Not Detect) Beta-(1,3)-D-Glucan >500 pg/mL B-(1,3)-D-Glucan Intrp POSITIVE A (Negative) 11/28/17 11/18/17 11/17/17 Range/Units 05:30 08:41 18:09 Fluid Source Fluid Volume mL Fluid Appearance (Clear) Fluid RBC (No Ref Range) M/mcL Fld Tot Nucleated Cell (No Ref Range) TNC/mcL Fluid Seg Neutrophil % % Fld Band Neutrophil % % Fluid Lymphocytes % % Fluid Monocytes % % Fluid Eosinophils % % Fluid Basophils % % Fluid Other Cells % % BAL A. galactomannan Ag (Negative) Stool Occult Blood (Negative) A. baumannii (PCR) Not Detected (Not Detect) Chlamy pneumoniae PCR Not Detected (Not Detect) Adenovirus (PCR) Not Detected (Not Detect) Blastomyces Ab Comp Fx SEE BELOW B. pertussis DNA (PCR) Not Detected (Not Detect) B.parapertussis DNA PCR Not Detected (Not Detect) Kelsey albicans (PCR) Not Detected (Not Detect) C. glabrata (PCR) Not Detected (Not Detect) C. krusei (PCR) Not Detected (Not Detect) C. parapsilosis (PCR) Not Detected (Not Detect) C. tropicalis (PCR) Not Detected (Not Detect) Coronavirus OC43 (PCR) Not Detected (Not Detect) Coronavirus HKU1 (PCR) DETECTED A (Not Detect) Coronavirus 229E (PCR) Not Detected (Not Detect) Coronavirus NL63 (PCR) Not Detected (Not Detect) Enterobacteriac sp PCR Not Detected (Not Detect) E. cloacae complex PCR Not Detected (Not Detect) Enterococcus sp PCR Not Detected (Not Detect) E. coli (PCR) Not Detected (Not Detect) H. influenzae (PCR) Not Detected (Not Detect) Histoplasma Antigen <2.0 U/mL Histoplasma Ag Interp NEGATIVE (Negative) Human Metapneumovir PCR Not Detected (Not Detect) Influenza A (H1) PCR Not Detected (Not Detect) Influ A (H1N1/09) PCR Not Detected (Not Detect) Influenza A (H3) PCR Not Detected (Not Detect) Influenza Type A (PCR) Influenza A Untype (PCR) Not Detected (Not Detect) Influenza Type B (PCR) Not Detected (Not Detect) Klebsiella oxytoca PCR Not Detected (Not Detect) Klebsiella pneumoniae Not Detected (Not Detect) List. monocytogenes PCR Not Detected (Not Detect) M.pneumoniae DNA (PCR) Not Detected (Not Detect) N. meningitidis (PCR) Not Detected (Not Detect) Parainfluenza 1 (PCR) Not Detected (Not Detect) Parainfluenza 2 (PCR) Not Detected (Not Detect) Parainfluenza 3 (PCR) Not Detected (Not Detect) Parainfluenza 4 (PCR) Not Detected (Not Detect) A. galactomannan Ag (Negative) A. galactomannan Ag Idx Proteus species (PCR) Not Detected (Not Detect) RSV (PCR) DETECTED A (Not Detect) Entero/Rhino (PCR) Not Detected (Not Detect) Serratia marcescens PCR Not Detected (Not Detect) Staphylococcus sp PCR Not Detected (Not Detect) Staph aureus (PCR) Not Detected (Not Detect) mecA-Methicil Res Gene N/A (Not Detect) Streptococcus sp PCR Not Detected (Not Detect) Group A Strep DNA Not Detected (Not Detect) Group B Strep (PCR) Not Detected (Not Detect) Strep pneumoniae (PCR) Not Detected (Not Detect) P. aeruginosa (PCR) Not Detected (Not Detect) Yony/B-Vanco Res Genes N/A (Not Detect) KPC (blaKPC) Detect PCR N/A (Not Detect) Beta-(1,3)-D-Glucan pg/mL B-(1,3)-D-Glucan Intrp (Negative) 11/17/17 Range/Units 17:31 Fluid Source Fluid Volume mL Fluid Appearance (Clear) Fluid RBC (No Ref Range) M/mcL Fld Tot Nucleated Cell (No Ref Range) TNC/mcL Fluid Seg Neutrophil % % Fld Band Neutrophil % % Fluid Lymphocytes % % Fluid Monocytes % % Fluid Eosinophils % % Fluid Basophils % % Fluid Other Cells % % BAL A. galactomannan Ag (Negative) Stool Occult Blood (Negative) A. baumannii (PCR) (Not Detect) Chlamy pneumoniae PCR (Not Detect) Adenovirus (PCR) (Not Detect) Blastomyces Ab Comp Fx B. pertussis DNA (PCR) (Not Detect) B.parapertussis DNA PCR (Not Detect) Kelsey albicans (PCR) (Not Detect) C. glabrata (PCR) (Not Detect) C. krusei (PCR) (Not Detect) C. parapsilosis (PCR) (Not Detect) C. tropicalis (PCR) (Not Detect) Coronavirus OC43 (PCR) (Not Detect) Coronavirus HKU1 (PCR) (Not Detect) Coronavirus 229E (PCR) (Not Detect) Coronavirus NL63 (PCR) (Not Detect) Enterobacteriac sp PCR (Not Detect) E. cloacae complex PCR (Not Detect) Enterococcus sp PCR (Not Detect) E. coli (PCR) (Not Detect) H. influenzae (PCR) (Not Detect) Histoplasma Antigen U/mL Histoplasma Ag Interp (Negative) Human Metapneumovir PCR (Not Detect) Influenza A (H1) PCR (Not Detect) Influ A (H1N1/09) PCR (Not Detect) Influenza A (H3) PCR (Not Detect) Influenza Type A (PCR) Influenza A Untype (PCR) (Not Detect) Influenza Type B (PCR) (Not Detect) Klebsiella oxytoca PCR (Not Detect) Klebsiella pneumoniae (Not Detect) List. monocytogenes PCR (Not Detect) M.pneumoniae DNA (PCR) (Not Detect) N. meningitidis (PCR) (Not Detect) Parainfluenza 1 (PCR) (Not Detect) Parainfluenza 2 (PCR) (Not Detect) Parainfluenza 3 (PCR) (Not Detect) Parainfluenza 4 (PCR) (Not Detect) A. galactomannan Ag (Negative) A. galactomannan Ag Idx Proteus species (PCR) (Not Detect) RSV (PCR) (Not Detect) Entero/Rhino (PCR) (Not Detect) Serratia marcescens PCR (Not Detect) Staphylococcus sp PCR (Not Detect) Staph aureus (PCR) (Not Detect) mecA-Methicil Res Gene (Not Detect) Streptococcus sp PCR (Not Detect) Group A Strep DNA (Not Detect) Group B Strep (PCR) (Not Detect) Strep pneumoniae (PCR) (Not Detect) P. aeruginosa (PCR) (Not Detect) Yony/B-Vanco Res Genes (Not Detect) KPC (blaKPC) Detect PCR (Not Detect) Beta-(1,3)-D-Glucan 470 pg/mL B-(1,3)-D-Glucan Intrp POSITIVE A (Negative) Exam - Constitutional Vitals: Temp Pulse Resp BP Pulse Ox 97.2 F L 79 18 164/75 98 12/12/17 13:10 12/12/17 07:11 12/12/17 13:10 12/12/17 13:10 12/12/17 07:11 General appearance: cooperative, no acute distress, thin - Head Head exam: Present: atraumatic, normal inspection, normocephalic - Eye Eye exam: Present: EOMI, normal appearance, PERRL Pupils: Present: normal accommodation - ENT ENT exam: Present: mucous membranes dry - Neck Neck exam: Present: normal inspection - Respiratory Respiratory exam: Present: rhonchi, wheezes (Coarse expiratory wheezes noted throughout). Absent: rales, respiratory distress - Cardiovascular Cardiovascular exam: Present: RRR, +S1, +S2 - GI/Abdominal GI/Abdominal exam: Present: normal bowel sounds, soft, tenderness (generalized) . Absent: distended Additional comments: Urostomy noted to the RLQ with small amount of clear yellow urine noted in the collection bag. Colostomy noted to the LLQ with small amount of brown liquid stool noted. Stoma beefy red and moist. - Extremities Exam Extremities exam: Present: normal inspection. Absent: joint swelling, pedal edema, tenderness - Neurological Exam Neurological exam: Present: alert, oriented X3, no focal deficits - Psychiatric Psychiatric exam: Present: normal affect, normal mood - Skin Skin exam: Present: dry, intact, normal color, warm - VTE Documentation of Mechanical Device: Intermittent pneumatic compression device Consult Discharge Plan - Plan Referrals: Na Johansen, TYLER [Primary Care Provider] - (Call at discharge due to lengthy stay Patient will go to [facility]) - Attending Attestation I examined this patient and my medical decision-making was reviewed with the Resident Physician. I agree with the documented findings, disposition and treatment plan as described except to the extent set forth below.
[2017-12-12] MEDS: Ipratropium/Albuterol Neb 3 ML IH PRN ×2 (15:35→22:16)
[2017-12-12] MEDS: Fluconazole 400 MG/200 ML 400 MG/200 ML BAG IVPB SCH (17:00)
--- NOTE | 2017-12-12 17:52 | Internal Med Progress Note ---
Date of Encounter: 12/12/17 Time of Encounter: 15:15 - Assessment and plan (1) Cavitary lesion of lung Current Visit: Yes Status: Acute Assessment and plan: Patient has history of abnormal CT chest with multiple images showing diffuse tree-in-bud appearance of lung parenchyma suggestive of infection/inflammation along with cavitary lesions in upper lobe. Infectious diseases has been on board. Repeat CT chest today shows improvement in cavitary lesions, persistent diffuse infectious/inflammatory process. Continue IV Bactrim to complete a two-week course. Continue IV fluconazole, to be completed on December 15, for fungemia and possible septic emboli in bilateral lungs. Case discussed extensively with pulmonology, , and no further plan of care can be agreed-upon. Unfortunately, patient does have extensive advanced COPD, continues to smoke when outpatient, along with subacute to chronic infectious/inflammatory changes on her CT chest. She may continue to have diffuse rhonchi and cough despite complete medical management. We will follow ID recommendations, continue supplemental oxygen, inhaled corticosteroids , tapering oral steroids, Mucinex. Will consider low-dose azithromycin after completing fluconazole to avoid prolonged QT. Patient is currently agreeable to ECF placement. product manager financial services on board. Physical and occupational therapy evaluation. (2) Fungemia Current Visit: Yes Status: Acute Assessment and plan: Patient was discharged on total parenteral nutrition after her previous admission. 2 sets of peripheral blood cultures each from November 14 and grew Kelsey lusitaniae; blood cultures from November 17 are negative. One set of blood cultures from port system from November 17 due to Kelsey, repeat blood cultures from port system from November 19 onwards were negative. Patient was evaluated by ophthalmology-no evidence of endophthalmitis was appreciated. Infectious diseases on board, continue IV fluconazole until December 15. (3) Pneumonia Current Visit: Yes Status: Suspected Assessment and plan: BAL from right middle lobe grew Enterobacter chloacae- MDRO. Acid-fast stain negative. Preliminary fungal culture shows Kelsey species, not albicans. Repeat CT chest findings as above. Continue IV fluconazole and Bactrim has been added for MDRO Enterobacter. Continue supportive care and supplemental oxygen. Blood culture results as above. Qualifiers: Pneumonia type: due to unspecified organism Laterality: bilateral Lung location: lower lobe of lung Qualified Code(s): J18.9 - Pneumonia, unspecified organism (4) Sepsis Current Visit: Yes Status: Resolved Qualifiers: Sepsis type: sepsis due to unspecified organism Qualified Code(s): A41.9 - Sepsis, unspecified organism (5) COPD exacerbation Current Visit: Yes Status: Acute Assessment and plan: Patient has severe COPD with cachexia and malnutrition. She always has diffuse rhonchi. Unfortunately, very difficult to completely treat patient and achieve clear lungs/breathing status; remains hemodynamically stable with no increasing oxygen requirements. Respiratory viral panel was positive for RSV, coronavirus, influenza a. Continues to require 3-4 L/m supplemental oxygen via nasal cannula, probably new baseline. Continue as needed bronchodilators, parenteral steroids, inhaled corticosteroids. (6) Goals of care, counseling/discussion Current Visit: Yes Status: Acute (7) Anemia in chronic kidney disease Current Visit: Yes Status: Chronic Assessment and plan: Hemoglobin stable. Stool occult blood testing has been negative during this admission. Qualifiers: Chronic kidney disease stage: on chronic dialysis Qualified Code(s): N18.6 - End stage renal disease; D63.1 - Anemia in chronic kidney disease; Z99.2 - Dependence on renal dialysis (8) Atrial fibrillation Current Visit: Yes Status: Chronic Qualifiers: Atrial fibrillation type: chronic Qualified Code(s): I48.2 - Chronic atrial fibrillation (9) ESRD (end stage renal disease) on dialysis Current Visit: Yes Status: Chronic Assessment and plan: Nephrology on board, patient is receiving regular hemodialysis sessions. (10) Hypothyroid Current Visit: Yes Status: Chronic Qualifiers: Hypothyroidism type: unspecified Qualified Code(s): E03.9 - Hypothyroidism , unspecified (11) Tobacco abuse Current Visit: Yes Status: Chronic (12) Acute respiratory failure with hypoxia Current Visit: Yes Status: Acute - Subjective Interval history: Returned from dialysis, noted to be drowsy but answers appropriately. Reports feeling about the same, complains of a rattling in her chest. Agreeable to ECF placement at this time, if it is short-term; continues to have some diarrhea in the ileostomy. No chest pain, palpitations. Has cough and intermittent shortness of breath. - Constitutional Vitals: Temp Pulse Resp BP Pulse Ox 98.0 F 86 17 133/53 98 12/12/17 15:58 12/12/17 15:58 12/12/17 15:58 12/12/17 15:58 12/12/17 15:58 General appearance: Present: cachectic, A&O X 3 (Extremely hard of hearing, does have selective hearing), underweight, answers questions appropriately - Respiratory Respiratory exam: Present: CTAB (Bilateral coarse rhonchorous breath sounds). Absent: accessory muscle use, rales, rhonchi, wheezes - Cardiovascular Cardiovascular exam: Present: RRR, +S1, +S2. Absent: diastolic murmur, gallop, rubs, systolic murmur - GI/Abdominal GI/Abdominal exam: Present: normal bowel sounds, soft, no peritoneal signs. Absent: distended, tenderness - Extremities Exam Extremities exam: Present: full ROM, warm, radial pulses palpable and symmetrical. Absent: calf tenderness, cyanotic, pedal edema - Neurological Exam Neurological exam: Present: CN II-XII intact, oriented X3, no focal deficits. Absent: pronater drift, facial droop, speech deficit Internal Medicine: Result - Labs CBC & Chem 7: 12/13/17 04:53 12/13/17 04:53 Labs: Short CBC 12/12/17 Range/Units 04:40 WBC 3.1 L (4.3-11.1) K/mcL Hgb 8.3 L (11.5-15.4) g/dL Hct 26.5 L (35.3-44.9) % Plt Count 82 L (140-400) K/mcL Neutrophils # 1.9 (1.6-8.9) K/mcL BMP 12/12/17 04:40 Sodium 135 L Potassium 4.3 Chloride 103 Carbon Dioxide 22 L BUN 24 H Creatinine 4.57 H Glucose 74 Calcium 6.9 L - ABG Interpretation ABG results: ABG ABG pH 7.35 pH Units (7.32-7.45) 12/09/17 04:48 ABG pCO2 58 mmHg (35-45) H 12/09/17 04:48 ABG pO2 92 mmHg (85-104) 12/09/17 04:48 ABG O2 Saturation 96 % (95-98) 12/09/17 04:48 PT/INR, D-dimer PT 16.2 Seconds (9.4-12.1) H 11/14/17 10:30 - VTE Documentation of Mechanical Device: Intermittent pneumatic compression device Consult Discharge Plan - Plan Referrals: Na Johansen, OPERATING ROOM NURSE [Primary Care Provider] - (Call at discharge due to lengthy stay Patient will go to ECF)
[2017-12-12] MEDS: *HR* Promethazine 25 MG/ML VIAL IVP PRN (21:49)
[2017-12-13 05:00] LABS: Hematocrit 27.9 % (35.3-44.9); Hemoglobin 8.7 g/dL (11.5-15.4); Immature Platelets 4.9 % (1.1-6.1); Mean Corpuscular HGB Conc 31.2 g/dL (31.6-35.5); Mean Corpuscular Hemoglobin 28.5 pg (28.0-33.3); Mean Corpuscular Volume 91.5 fL (83.0-100.0); Mean Platelet Volume 10.9 fL (9.4-12.4); Red Blood Count 3.05 M/mcL (3.82-4.97); Red Cell Distribution Width 15.6 % (11.5-14.5)
[2017-12-13 05:23] LABS: Calcium 7.6 mg/dL (8.6-10.3); Potassium 4.1 mEq/L (3.5-5.1)
[2017-12-13] MEDS: *HR* OxyCODONE Immed Rel 5 MG TABLET PO PRN ×4 (06:34→22:10)
[2017-12-13] MEDS: *HR* Promethazine 25 MG/ML VIAL IVP PRN ×2 (06:34→12:17)
[2017-12-13] MEDS: Fluticasone Propionate Nasal 50 MCG/SPRAY BOTTLE NS SCH (08:22)
[2017-12-13] MEDS: Calcium Acetate 667 MG CAPSULE PO SCH ×3 (08:23→16:38)
[2017-12-13] MEDS: *HR* Acetylcysteine 20% 600 MG/3 ML ORAL SYRINGE PO SCH ×2 (08:23→22:10)
[2017-12-13] MEDS: Nicotine 21 MG PATCH.TD24 TD SCH (08:23)
--- NOTE | 2017-12-13 10:23 | Event Note ---
Date of Encounter: 12/13/17 Time of Encounter: 10:23 Nephrology Note Next HD is planned for Friday. I will be available this weekend, so please feel free to call and/or page me with any questions. Thank you.
[2017-12-13] MEDS: Ipratropium/Albuterol Neb 3 ML IH PRN ×2 (11:19→22:33)
[2017-12-13] MEDS: Ondansetron 4 MG/2 ML VIAL IVP PRN (16:38)
[2017-12-13] MEDS: Benzonatate 100 MG CAPSULE PO PRN (16:38)
--- NOTE | 2017-12-13 17:12 | Internal Med Progress Note ---
Date of Encounter: 12/13/17 Time of Encounter: 11:30 - Assessment and plan (1) Cavitary lesion of lung Current Visit: Yes Status: Acute Assessment and plan: Patient has history of abnormal CT chest with multiple images showing diffuse tree-in-bud appearance of lung parenchyma suggestive of infection/inflammation along with cavitary lesions in upper lobe. Infectious diseases has been on board. Repeat CT chest today shows improvement in cavitary lesions, persistent diffuse infectious/inflammatory process. Continue IV Bactrim to complete a two-week course. Continue IV fluconazole, to be completed on December 15, for fungemia and possible septic emboli in bilateral lungs. Case discussed extensively with pulmonology, , and no further plan of care can be agreed-upon. Unfortunately, patient does have extensive advanced COPD, continues to smoke when outpatient, along with subacute to chronic infectious/inflammatory changes on her CT chest. She may continue to have diffuse rhonchi and cough despite complete medical management. We will follow ID recommendations, continue supplemental oxygen, inhaled corticosteroids , tapering oral steroids, Mucinex. Will consider low-dose azithromycin after completing fluconazole to avoid prolonged QT. Patient is currently agreeable to ECF placement. assurance services manager health care on board. Physical and occupational therapy evaluation noted, recommend home health services. (2) Fungemia Current Visit: Yes Status: Acute Assessment and plan: Patient was discharged on total parenteral nutrition after her previous admission. 2 sets of peripheral blood cultures each from November 14 and grew Kelsey lusitaniae; blood cultures from November 17 are negative. One set of blood cultures from port system from November 17 due to Kelsey, repeat blood cultures from port system from November 19 onwards were negative. Patient was evaluated by ophthalmology-no evidence of endophthalmitis was appreciated. Infectious diseases on board, continue IV fluconazole until December 15. (3) Pneumonia Current Visit: Yes Status: Suspected Assessment and plan: BAL from right middle lobe grew Enterobacter chloacae- MDRO. Acid-fast stain negative. Preliminary fungal culture shows Kesley species, not albicans. Repeat CT chest findings as above. Continue IV fluconazole and Bactrim has been added for MDRO Enterobacter. Continue supportive care and supplemental oxygen. Blood culture results as above. Qualifiers: Pneumonia type: due to unspecified organism Laterality: bilateral Lung location: lower lobe of lung Qualified Code(s): J18.9 - Pneumonia, unspecified organism (4) Sepsis Current Visit: Yes Status: Resolved Qualifiers: Sepsis type: sepsis due to unspecified organism Qualified Code(s): A41.9 - Sepsis, unspecified organism (5) COPD exacerbation Current Visit: Yes Status: Acute Assessment and plan: Patient has severe COPD with cachexia and malnutrition. She always has diffuse rhonchi. Unfortunately, very difficult to completely treat patient and achieve clear lungs/breathing status; remains hemodynamically stable with no increasing oxygen requirements. Respiratory viral panel was positive for RSV, coronavirus, influenza a. Continues to require 3-4 L/m supplemental oxygen via nasal cannula, probably new baseline. Continue as needed bronchodilators, inhaled corticosteroids. Completed a long course of IV and enteral steroids. (6) Goals of care, counseling/discussion Current Visit: Yes Status: Acute (7) Anemia in chronic kidney disease Current Visit: Yes Status: Chronic Assessment and plan: Hemoglobin stable. Stool occult blood testing has been negative during this admission. Qualifiers: Chronic kidney disease stage: on chronic dialysis Qualified Code(s): N18.6 - End stage renal disease; D63.1 - Anemia in chronic kidney disease; Z99.2 - Dependence on renal dialysis (8) Atrial fibrillation Current Visit: Yes Status: Chronic Qualifiers: Atrial fibrillation type: chronic Qualified Code(s): I48.2 - Chronic atrial fibrillation (9) ESRD (end stage renal disease) on dialysis Current Visit: Yes Status: Chronic Assessment and plan: Nephrology on board, patient is receiving regular hemodialysis sessions. (10) Hypothyroid Current Visit: Yes Status: Chronic Qualifiers: Hypothyroidism type: unspecified Qualified Code(s): E03.9 - Hypothyroidism , unspecified (11) Tobacco abuse Current Visit: Yes Status: Chronic (12) Acute respiratory failure with hypoxia Current Visit: Yes Status: Acute - Subjective Interval history: Continues to report "not feeling any better". Has cough, chest pain related to cough and subjective shortness of breath. Awaiting rehabilitation placement. - Constitutional Vitals: Temp Pulse Resp BP Pulse Ox 98.1 F 81 17 118/60 96 12/13/17 15:41 12/13/17 15:41 12/13/17 15:41 12/13/17 15:41 12/13/17 15:41 General appearance: Present: cachectic, A&O X 3 (Extremely hard of hearing, does have selective hearing), underweight, answers questions appropriately - Respiratory Respiratory exam: Present: CTAB (Coarse wet rhonchorous breath sounds bilaterally). Absent: accessory muscle use, rales, rhonchi, wheezes - Cardiovascular Cardiovascular exam: Present: RRR, +S1, +S2. Absent: diastolic murmur, gallop, rubs, systolic murmur - GI/Abdominal GI/Abdominal exam: Present: normal bowel sounds, soft (Scaphoid abdomen with multiple surgical scars, subcutaneous postsurgical fibrotic tissue. Ileostomy and urostomy in place.), no peritoneal signs. Absent: distended, tenderness - Extremities Exam Extremities exam: Present: full ROM, warm, radial pulses palpable and symmetrical. Absent: calf tenderness, cyanotic, pedal edema - Neurological Exam Neurological exam: Present: CN II-XII intact, oriented X3, no focal deficits. Absent: pronater drift, facial droop, speech deficit Internal Medicine: Result - Labs CBC & Chem 7: 12/13/17 04:53 12/13/17 04:53 Labs: Short CBC 12/13/17 Range/Units 04:53 WBC 2.9 L (4.3-11.1) K/mcL Hgb 8.7 L (11.5-15.4) g/dL Hct 27.9 L (35.3-44.9) % Plt Count 92 L (140-400) K/mcL BMP 12/13/17 04:53 Sodium 135 L Potassium 4.1 Chloride 100 Carbon Dioxide 30 H BUN 17 Creatinine 3.57 H Glucose 82 Calcium 7.6 L - ABG Interpretation ABG results: ABG ABG pH 7.35 pH Units (7.32-7.45) 12/09/17 04:48 ABG pCO2 58 mmHg (35-45) H 12/09/17 04:48 ABG pO2 92 mmHg (85-104) 12/09/17 04:48 ABG O2 Saturation 96 % (95-98) 12/09/17 04:48 PT/INR, D-dimer PT 16.2 Seconds (9.4-12.1) H 11/14/17 10:30 - VTE Documentation of Mechanical Device: Intermittent pneumatic compression device Consult Discharge Plan - Plan Referrals: Na Johansen, RENEWALS SPECIALIST [Primary Care Provider] - (Call at discharge due to lengthy stay [facility]
[2017-12-13] MEDS: D5 IVPB SCH (17:31)
[2017-12-13] MEDS: TRIMETH IVPB SCH (17:31)
[2017-12-13] MEDS: WATER IVPB SCH (17:31)
[2017-12-13] MEDS: SULFAMETHOXAZOLE IVPB SCH (17:31)
[2017-12-14] MEDS: *HR* LORazepam 0.5 MG TABLET PO PRN ×2 (00:56→20:23)
[2017-12-14] MEDS: Ondansetron 4 MG/2 ML VIAL IVP PRN ×4 (00:56→20:21)
[2017-12-14] MEDS: *HR* OxyCODONE Immed Rel 5 MG TABLET PO PRN ×4 (03:54→20:22)
[2017-12-14] MEDS: *HR* Acetylcysteine 20% 600 MG/3 ML ORAL SYRINGE PO SCH ×2 (07:49→20:21)
[2017-12-14] MEDS: Benzonatate 100 MG CAPSULE PO PRN (07:49)
[2017-12-14] MEDS: Nicotine 21 MG PATCH.TD24 TD SCH (07:49)
[2017-12-14] MEDS: Calcium Acetate 667 MG CAPSULE PO SCH ×3 (07:49→17:17)
[2017-12-14] MEDS: Fluticasone Propionate Nasal 50 MCG/SPRAY BOTTLE NS SCH (07:50)
[2017-12-14] MEDS: *HR* Promethazine 25 MG/ML VIAL IVP PRN (10:15)
[2017-12-14] MEDS: Ipratropium/Albuterol Neb 3 ML IH PRN ×3 (10:54→20:35)
--- NOTE | 2017-12-14 15:43 | Internal Med Progress Note ---
Date of Encounter: 12/14/17 Time of Encounter: 11:30 - Assessment and plan (1) Cavitary lesion of lung Current Visit: Yes Status: Acute Assessment and plan: Patient has history of abnormal CT chest with multiple images showing diffuse tree-in-bud appearance of lung parenchyma suggestive of infection/inflammation along with cavitary lesions in upper lobe. Infectious diseases has been on board. Repeat CT chest today shows improvement in cavitary lesions, persistent diffuse infectious/inflammatory process. Continue IV Bactrim to complete a two-week course. Continue IV fluconazole, to be completed on December 15, for fungemia and possible septic emboli in bilateral lungs. Case discussed extensively with pulmonology, , and no further plan of care can be agreed-upon. Unfortunately, patient does have extensive advanced COPD, continues to smoke when outpatient, along with subacute to chronic infectious/inflammatory changes on her CT chest. She may continue to have diffuse rhonchi and cough despite complete medical management. We will follow ID recommendations, continue supplemental oxygen, inhaled corticosteroids , tapering oral steroids, Mucinex. Will consider low-dose azithromycin after completing fluconazole to avoid prolonged QT. Patient is currently agreeable to ECF placement. career services manager on board. Physical and occupational therapy evaluation noted, recommend home health services. (2) Fungemia Current Visit: Yes Status: Acute Assessment and plan: Patient was discharged on total parenteral nutrition after her previous admission. 2 sets of peripheral blood cultures each from November 14 and grew Kelsey lusitaniae; blood cultures from November 17 are negative. One set of blood cultures from port system from November 17 due to Kelsey, repeat blood cultures from port system from November 19 onwards were negative. Patient was evaluated by ophthalmology-no evidence of endophthalmitis was appreciated. Infectious diseases on board, continue IV fluconazole until December 15. (3) Pneumonia Current Visit: Yes Status: Suspected Assessment and plan: BAL from right middle lobe grew Enterobacter chloacae- MDRO. Acid-fast stain negative. Preliminary fungal culture shows Kelsey species, not albicans. Repeat CT chest findings as above. Continue IV fluconazole and Bactrim has been added for MDRO Enterobacter. Continue supportive care and supplemental oxygen. Blood culture results as above. Qualifiers: Pneumonia type: due to unspecified organism Laterality: bilateral Lung location: lower lobe of lung Qualified Code(s): J18.9 - Pneumonia, unspecified organism (4) Sepsis Current Visit: Yes Status: Resolved Qualifiers: Sepsis type: sepsis due to unspecified organism Qualified Code(s): A41.9 - Sepsis, unspecified organism (5) COPD exacerbation Current Visit: Yes Status: Acute Assessment and plan: Patient has severe COPD with cachexia and malnutrition. She always has diffuse rhonchi, she appears better than most days today. Unfortunately, very difficult to completely treat patient and achieve clear lungs/breathing status; remains hemodynamically stable with no increasing oxygen requirements. Respiratory viral panel was positive for RSV, coronavirus, influenza a. Continues to require 3-4 L/m supplemental oxygen via nasal cannula, probably new baseline. Continue as needed bronchodilators, inhaled corticosteroids. Completed a long course of IV and enteral steroids. (6) Goals of care, counseling/discussion Current Visit: Yes Status: Acute (7) Anemia in chronic kidney disease Current Visit: Yes Status: Chronic Qualifiers: Chronic kidney disease stage: on chronic dialysis Qualified Code(s): N18.6 - End stage renal disease; D63.1 - Anemia in chronic kidney disease; Z99.2 - Dependence on renal dialysis (8) Atrial fibrillation Current Visit: Yes Status: Chronic Qualifiers: Atrial fibrillation type: chronic Qualified Code(s): I48.2 - Chronic atrial fibrillation (9) ESRD (end stage renal disease) on dialysis Current Visit: Yes Status: Chronic Assessment and plan: Nephrology on board, patient is receiving regular hemodialysis sessions. (10) Hypothyroid Current Visit: Yes Status: Chronic Qualifiers: Hypothyroidism type: unspecified Qualified Code(s): E03.9 - Hypothyroidism , unspecified (11) Tobacco abuse Current Visit: Yes Status: Chronic (12) Acute respiratory failure with hypoxia Current Visit: Yes Status: Acute - Subjective Interval history: Reports feeling better today. But, Continues to cough as soon as I begin to auscultate. No new complaints. Awaiting rehabilitation placement. - Constitutional Vitals: Temp Pulse Resp BP Pulse Ox 99.4 F 84 16 137/69 93 12/14/17 15:32 12/14/17 15:32 12/14/17 15:32 12/14/17 15:32 12/14/17 15:32 General appearance: Present: cachectic, A&O X 3 (Extremely hard of hearing, does have selective hearing), underweight, answers questions appropriately - Respiratory Respiratory exam: Present: CTAB (coarse breath sounds B/L, no wheezing or rhonchi). Absent: accessory muscle use, rales, rhonchi, wheezes - Cardiovascular Cardiovascular exam: Present: RRR, +S1, +S2. Absent: diastolic murmur, gallop, rubs, systolic murmur - Neurological Exam Neurological exam: Present: CN II-XII intact, oriented X3, no focal deficits. Absent: pronater drift, facial droop, speech deficit Internal Medicine: Result - Labs CBC & Chem 7: 12/13/17 04:53 12/13/17 04:53 - ABG Interpretation ABG results: ABG ABG pH 7.35 pH Units (7.32-7.45) 12/09/17 04:48 ABG pCO2 58 mmHg (35-45) H 12/09/17 04:48 ABG pO2 92 mmHg (85-104) 12/09/17 04:48 ABG O2 Saturation 96 % (95-98) 12/09/17 04:48 PT/INR, D-dimer PT 16.2 Seconds (9.4-12.1) H 11/14/17 10:30 - VTE Documentation of Mechanical Device: Intermittent pneumatic compression device Consult Discharge Plan - Plan Referrals: Na Johansen, DAIRY LABORATORY TECHNICIAN [Primary Care Provider] - (Call at discharge due to lengthy stay Patient [facility] go to [facility]
[2017-12-14] MEDS: TRIMETH IVPB SCH (17:17)
[2017-12-14] MEDS: D5 IVPB SCH (17:17)
[2017-12-14] MEDS: SULFAMETHOXAZOLE IVPB SCH (17:17)
[2017-12-14] MEDS: WATER IVPB SCH (17:17)
[2017-12-15] MEDS: *HR* OxyCODONE Immed Rel 5 MG TABLET PO PRN ×2 (00:23→05:54)
[2017-12-15] MEDS: *HR* Promethazine 25 MG/ML VIAL IVP PRN ×2 (00:27→10:22)
[2017-12-15 04:18] LABS: Hematocrit 27.7 % (35.3-44.9); Hemoglobin 8.7 g/dL (11.5-15.4); Mean Corpuscular HGB Conc 31.4 g/dL (31.6-35.5); Mean Corpuscular Hemoglobin 28.2 pg (28.0-33.3); Red Cell Distribution Width 15.2 % (11.5-14.5)
[2017-12-15 04:20] LABS: Immature Platelets 3.4 % (1.1-6.1); Mean Corpuscular Volume 89.9 fL (83.0-100.0); Mean Platelet Volume 10.2 fL (9.4-12.4); Red Blood Count 3.08 M/mcL (3.82-4.97)
[2017-12-15 04:33] LABS: Calcium 7.2 mg/dL (8.6-10.3); Potassium 5.2 mEq/L (3.5-5.1)
[2017-12-15] MEDS: Ondansetron 4 MG/2 ML VIAL IVP PRN (05:54)
[2017-12-15] MEDS: WATER IVPB SCH (05:55)
[2017-12-15] MEDS: TRIMETH IVPB SCH (05:55)
[2017-12-15] MEDS: D5 IVPB SCH (05:55)
[2017-12-15] MEDS: SULFAMETHOXAZOLE IVPB SCH (05:55)
[2017-12-15] MEDS ORDERED: 0.9 % Sodium Chloride 250 ML IVC PRN (06:37)
[2017-12-15 07:40] LABS: Aspergillus fumigatus IgE <0.10 kU/L (<=0.34)
[2017-12-15] MEDS ORDERED: 0.9 % Sodium Chloride 2,000 ML ONE (08:18)
[2017-12-15] MEDS: Nicotine 21 MG PATCH.TD24 TD SCH (10:22)
[2017-12-15] MEDS: *HR* Acetylcysteine 20% 600 MG/3 ML ORAL SYRINGE PO SCH (10:23)
[2017-12-15] MEDS: Calcium Acetate 667 MG CAPSULE PO SCH ×2 (10:23→14:19)
[2017-12-15] MEDS: Fluticasone Propionate Nasal 50 MCG/SPRAY BOTTLE NS SCH (10:27)
--- NOTE | 2017-12-15 10:55 | Nephrology Progress Note ---
Date of Encounter: 12/15/17 Time of Encounter: 09:50 - Assessment and Plan (1) ESRD (end stage renal disease) on dialysis Status: Chronic ESRD on HD M/W/F and due for HD today (Friday). Anemia of CKD: cont IVANNA, for a goal Hgb of 10-11 HTN/volume status: UF with HD today and she appeared euvolemic on exam. BPs are controlled. MBD of CKD: chronic hypocalcemia with vit D def and SHPT: cont using a 3Ca bath with HD and vit D2 Ergocalciferol which would help both vit D def/suppression of iPTH/and incremental increase in serum Ca Nutrition: recommend renal diet (low Phos and low K diet) for a goal serum albumin of 4. Please provide Nepro as needed with meals. Dialysis access: LUE AVF with thrill and smooth continuous bruit Pulmonary: as per primary. Thank you. (2) Hyperphosphatemia Status: Chronic Phos restriction in her diet is recommended. See above. (3) Hypocalcemia Status: Chronic Chronic. Using a higher Ca bath (3) with dialysis. See above. (4) Anemia in CKD (chronic kidney disease) Status: Chronic Goal Hgb is 10-11 and may need IV iron and/or IVANNA. Qualifiers: Chronic kidney disease stage: on chronic dialysis Qualified Code(s): N18.6 - End stage renal disease; D63.1 - Anemia in chronic kidney disease; D63.1 - Anemia in chronic kidney disease; Z99.2 - Dependence on renal dialysis; Z99.2 - Dependence on renal dialysis; Z99.2 - Dependence on renal dialysis; Z99.2 - Dependence on renal dialysis Subjective Principal diagnosis: hypoxic respiratiory failure 2/2 COPD exacerbation 2/2 PNA Interval history: Pt was s/e earlier today while on HD. She reported having the same chronic cough. Otherwise she did not report new complaints. She did not affirm N/V/D or cramping while on dialysis. Objective - Vital Signs Vital signs: Vital Signs Temp Pulse Resp BP Pulse Ox 12/15/17 08:28 98.0 F 79 16 136/55 93 12/15/17 04:29 98.3 F 83 17 102/65 95 12/14/17 23:41 97.8 F 90 17 110/43 95 02/11/18 20:35 17 95 12/14/17 20:07 97.9 F 115 17 129/80 96 12/14/17 19:46 98.2 F 94 17 110/68 97 12/14/17 16:08 16 93 12/14/17 15:32 99.4 F 84 16 137/69 93 12/14/17 12:10 98.4 F 93 15 157/68 92 Intake and Output 12/14/17 12/15/17 12/15/17 23:59 07:59 15:59 Intake Total 516.5 / 516.5 200 / 200 120 / 120 Output Total 300 / 300 0 / 0 Balance 516.5 / 516.5 -100 / -100 120 / 120 Intake: IV Fluids 516.5 / 516.5 Bactrim 800MG/160MG/10ML 16.5 516.5 / 516.5 ML In Dextrose 5% 500 ML @ 250 mls/hr IVPB MOWEFR@0600,1800 [facility] Rx#:[id number] Oral 200 / 200 120 / 120 Output: Stool 100 / 100 0 / 0 Urostomy 200 / 200 0 / 0 Other: Meal Breakfast Percent of Meal Consumed 50% Stool Size Small Stool Consistency loose Stool Characteristics Normal for Patient Stool Color Brown Pale Weight 53.184 kg Patient Weight 12/15/17 23:59 Weight 53.184 kg - General Appearance Exam: General appearance: Present: cachectic, chronically ill, fatigue, frail EENT: Present: ATNC, mucous membranes moist Neck: Present: supple Respiratory: Present: wheezing, rales, course breath sounds, rhonchi Cardiology: Present: no edema, regular rate, regular rhythm, normal S1, normal S2 Dialysis Vascular Access: Arteriovenous Fistula (LUE) with an excellent thrill/ bruit. Gastrointestinal: Present: normoactive bowel sounds, no tenderness, no guarding Additional Comments: thin; ostomy bags Integumentary: Present: warm and dry Neurologic: Present: no focal deficit, no asterixis, alert and oriented x3 Musculoskeletal: Present: no erythema, no cyanosis, no clubbing Psychiatric: Present: mood/affect appropriate, cooperative - Lab 12/15/17 04:05 12/15/17 04:05 Most recent lab results ABG pH 7.35 pH Units (7.32-7.45) 12/09/17 04:48 ABG pCO2 58 mmHg (35-45) H 12/09/17 04:48 ABG pO2 92 mmHg (85-104) 12/09/17 04:48 ABG HCO3 32 mEq/L (21-27) H 12/09/17 04:48 ABG O2 Saturation 96 % (95-98) 12/09/17 04:48 Calcium 7.2 mg/dL (8.6-10.3) L 12/15/17 04:05 Phosphorus 3.2 mg/dL (2.7-4.5) 12/11/17 04:00 Magnesium 2.0 mg/dL (1.6-2.6) 12/11/17 04:00 - VTE Documentation of Mechanical Device: Intermittent pneumatic compression device Consult Discharge Plan - Plan Additional Instructions: F/up with PCP in 1-2 weeks F/up for HD 3 times/week- MWF F/up with ID in 2 weeks Referrals: Na Johansen, [employer] [Primary Care Provider] - (Call at discharge due to lengthy stay Patient will go to [facility]) Prescriptions: Gabapentin [Neurontin] 100 mg PO TID #30 capsule LORazepam [Ativan] 0.5 mg PO BID PRN 10 Days #10 tablet PRN Reason: Anxiety OxyCODONE Immed Rel [Roxicodone 5 MG] 2.5 mg PO Q5H PRN 5 Days #10 tablet PRN Reason: Pain Sulfamethoxazole/Trimeth [Bactrim 800MG/160MG/10ML] 10 ml IV BID #7 vial Sulfamethoxazole/Trimeth [Bactrim 800MG/160MG/10ML] 10 ml IV DAILY #5 vial
--- NOTE | 2017-12-15 12:10 | Discharge Summary ---
Date of Encounter: 12/15/17 Time of Encounter: 09:15 - Discharge Diagnosis (1) Cavitary lesion of lung Priority: Primary Status: Acute (2) Fungemia Priority: Primary Status: Acute (3) Pneumonia Priority: Primary Status: Suspected Qualifiers: Pneumonia type: due to unspecified organism Laterality: bilateral Lung location: lower lobe of lung Qualified Code(s): J18.9 - Pneumonia, unspecified organism (4) Sepsis Priority: Primary Status: Resolved Qualifiers: Sepsis type: sepsis due to unspecified organism Qualified Code(s): A41.9 - Sepsis, unspecified organism (5) COPD exacerbation Priority: Primary Status: Acute (6) Goals of care, counseling/discussion Priority: Primary Status: Acute (7) Anemia in chronic kidney disease Priority: Secondary Status: Chronic Qualifiers: Chronic kidney disease stage: on chronic dialysis Qualified Code(s): N18.6 - End stage renal disease; D63.1 - Anemia in chronic kidney disease; Z99.2 - Dependence on renal dialysis (8) Atrial fibrillation Priority: Secondary Status: Chronic Qualifiers: Atrial fibrillation type: chronic Qualified Code(s): I48.2 - Chronic atrial fibrillation (9) ESRD (end stage renal disease) on dialysis Priority: Secondary Status: Chronic (10) Hypothyroid Priority: Secondary Status: Chronic Qualifiers: Hypothyroidism type: unspecified Qualified Code(s): E03.9 - Hypothyroidism , unspecified (11) Tobacco abuse Priority: Secondary Status: Chronic (12) Acute respiratory failure with hypoxia Priority: Primary Status: Acute - Discharge Medications Prescriptions: Gabapentin [Neurontin] 100 mg PO TID #30 capsule LORazepam [Ativan] 0.5 mg PO BID PRN 10 Days #10 tablet PRN Reason: Anxiety OxyCODONE Immed Rel [Roxicodone 5 MG] 2.5 mg PO Q5H PRN 5 Days #10 tablet PRN Reason: Pain Sulfamethoxazole/Trimeth [Bactrim 800MG/160MG/10ML] 10 ml IV BID #7 vial Sulfamethoxazole/Trimeth [Bactrim 800MG/160MG/10ML] 10 ml IV DAILY #5 vial Home Medications: Cholecalciferol (Vitamin D3) [Vitamin D3] 5,000 unit PO DAILY #0 09/19/15 [ History] Ranitidine HCl [Zantac] 150 mg PO HS 09/19/15 [History] Cyanocobalamin (B-12) [Vitamin B12] 1,000 mcg IM QMONTH 02/21/17 [History] Levothyroxine Sodium [Synthroid] 300 mcg PO DAILY 02/21/17 [History] Mometasone/Formoterol [Dulera 100 Mcg/5 Mcg Inhaler] 2 puff IH BID 02/21/17 [ History] Lidocaine/Prilocaine CREAM [Emla] 1 appl TP AD PRN 06/30/17 [History] Renal Vitamin [Renal Caps Softgel] 1 mg PO DAILY 06/30/17 [History] Acetaminophen [Tylenol] 650 mg PO Q6HR PRN #20 tab 07/10/17 [Rx] Menthol [Sequim] 3.2 mg MM Q4H PRN 07/16/17 [History] GuaiFENesin ER [Mucinex] 600 mg PO BID 5 Days #10 tbbp.12hr 09/14/17 [Rx] Calcium Acetate [Phos-LO] 667 mg PO TIDWM 10/17/17 [History] Benzonatate [Tessalon] 100 mg PO TID PRN #90 capsule 10/24/17 [Rx] Calcitriol [Rocaltrol] 0.25 mcg PO DAILY capsule 10/24/17 [Rx] Ipratropium/Albuterol Neb [Duoneb] 3 ml IH [id number] inhsol 10/24/17 [Rx] Ferrous Sulfate 325 mg PO DAILY 11/14/17 [History] Darbepoetin [Aranesp] 60 mcg SQ Th syringe 12/15/17 [Rx] Diltiazem [Cardizem] 30 mg PO Q6HR tablet 12/15/17 [Rx] Fluticasone Propionate Nasal [Flonase] 50 mcg NS DAILY bottle 12/15/17 [Rx] Gabapentin [Neurontin] 100 mg PO TID #30 capsule 12/15/17 [Rx] Ipratropium/Albuterol Neb [Duoneb] 3 ml IH [id number] PRN inhsol 12/15/17 [Rx] LORazepam [Ativan] 0.5 mg PO BID PRN 10 Days #10 tablet 12/15/17 [Rx] Nicotine Patch [Nicoderm] 21 mg TD DAILY patch.td24 12/15/17 [Rx] Nitroglycerin 0.4 mg SL Q5MIN PRN tab.subl 12/15/17 [Rx] OxyCODONE Immed Rel [Roxicodone 5 MG] 2.5 mg PO Q5H PRN 5 Days #10 tablet [Rx] Sulfamethoxazole/Trimeth [Bactrim 800MG/160MG/10ML] 10 ml IV BID #7 vial [Rx] Sulfamethoxazole/Trimeth [Bactrim 800MG/160MG/10ML] 10 ml IV DAILY #5 vial 12/15 [Rx] Allergies/Adverse Reactions: 3 Allergy/AdvReac Type Severity Reaction Status Date / Time codeine AdvReac Severe Vomiting Verified 03/06/17 15:22 naproxen [From Naprosyn] AdvReac Severe Vomiting Verified 03/06/17 15:22 Date of admission: 11/14/17 16:01 Primary care physician: Na Johansen CNP Consults: 11/15/17 10:15 Consult to Dialysis [CONS] ONCE 11/16/17 08:11 Consult to Pulmonology [CONS] Routine Consulting Provider: [facility] [place] Reason for Consult: Pneumonia Call Completed: Yes 11/17/17 09:00 Consult to Dialysis [CONS] ONCE 11/17/17 14:19 Consult to Infectious Diseases [CONS] Routine Consulting Provider: [facility] [place] Reason for Consult: fungemia, sepsis Time Notified: 14:20 Call Completed: Yes 11/17/17 14:31 Consult to Physician [CONS] Routine Consulting Provider: Luis Carter Reason for Consult: fungemia, rule out endophthalmitis Time Notified: 14:32 Call Completed: Yes 11/18/17 07:55 Consult to Interventional Radiology [CONS] Routine Consulting Provider: Radiology [facility] [place] Reason for Consult: removal of A-port in setting of fungemia Call Completed: No 11/19/17 09:15 Consult to Dialysis [CONS] ONCE 11/19/17 11:28 Consult to Urology [CONS] Routine Consulting Provider: [facility] [place] Reason for Consult: Bleeding from urostomy site Call Completed: Yes 11/20/17 15:48 Consult to Pulmonology [CONS] Routine Consulting Provider: [facility] [place] Reason for Consult: Dyspnea Call Completed: Yes 11/21/17 08:15 Consult to Dialysis [CONS] ONCE 11/24/17 07:00 Consult to Dialysis [CONS] ONCE 11/26/17 07:00 Consult to Dialysis [CONS] ONCE 11/27/17 08:53 Consult to Pulmonology [CONS] Routine Consulting Provider: [facility] Reason for Consult: septic emboli in lungs Time Notified: 08:54 Call Completed: Yes 11/28/17 06:30 Consult to Dialysis [CONS] ONCE 12/01/17 09:15 Consult to Dialysis [CONS] ONCE 12/03/17 07:45 Consult to Dialysis [CONS] ONCE 12/05/17 08:00 Consult to Dialysis [CONS] ONCE 12/08/17 07:45 Consult to Dialysis [CONS] ONCE 12/10/17 08:00 Consult to Dialysis [CONS] ONCE 12/10/17 19:23 Consult to Wound Care [CONS] Routine Reason for Consult: right chest previous aport site. Call Completed: No 12/12/17 07:45 Consult to Dialysis [CONS] ONCE 12/12/17 10:13 Consult to Occupational Therapy [CONS] Routine Comment: Evaluate, develop and implement POC Reason for Consult: eval for ecf Consult to Physical Therapy [CONS] Routine Comment: Evaluate, develop and implement POC Reason for Consult: eval for ecf 12/15/17 06:45 Consult to Dialysis [CONS] ONCE Discharging clinician: Gisselle Hoover Anticipated date of discharge: 12/15/17 - Patient Status Disposition: Transfer SNF Condition: Fair Functional capacity at discharge: uses cane/walker Overall status at discharge: patient is progressing back to baseline - Discharge Instructions Follow Up With: Na Johansen, [employer] [Primary Care Provider] - (Call at discharge due to lengthy stay Patient will go to ECF) Additional Instructions: F/up with PCP in 1-2 weeks F/up for HD 3 times/week- MWF F/up with ID in 2 weeks - Diet and Activity Activity: as per physical therapy, wear oxygen at all times Diet: low fat, low cholesterol, low salt diet, other (renal, no carb restriction ) Hospital course: Ms. Parra is a 72 year old female with the above medical problems, with urostomy and ileostomy and chronic diarrhea, ESRD on HD, who is well-known to our service due to multiple frequent hospitalizations, was initially admitted to ICU with diagnosed sepsis due to fever, tachycardia, tachypnea and treated for B/L Pneumonia with broad spectrum IV antibiotics- Vancomycin, Zosyn and Levaquin. SHe also received IV steroids, bronchodilators and supplemental O2 along with intermittent BiPAP support for acute COPD. She developed atrial fibrillation with RVR and started briefly on IV Amiodarone drip as Cardizem could not be given due to hypotension. She was subsequently started on short-acting Cardizem. Nephrology was consulted and she received regular HD sessions while in the hospital. 2/ peripheral blood cultures from 11/14/17 grew Kelsey lusitaniae, started on IV Fluconazole. / blood cultures from 11/16/17 grew c.lusitaniae. Serology did not draft roller picker fungal strains. 11/03 blood cultures from [place] grew C.lusitaniae. SHe recently received TPN via A-port, for severe malnutrition. ID has been consulted and assisted with management. Echo did not show vegetations. Ophthalmology was consulted and no e/o endophthalmitis was noted. She now completed her course of antifungals. She had recurrent episodes of Pneumonia and COPD exacerbations during the last few months. CT chest showed multiple focal areas of consolidation seen within the periphery of the lungs, some with focal cavitation, innumerable punctate centrilobular tree-in-bud ground-glass nodules. Pulmonology was consulted and she underwent bronchoscopy with BAL- no thick secretions were noted, c/w Pneumonia, likely resolving, from septic emboli from fungemia, per Pulmonology. Respiratory cultures grew MDRO Enterobacter and Kelsey, not albicans. She was continued on appropriate treatment for COPD including IV and oral steroids, breathing treatments, mucolytics, inhaled steroids throughout her hospitalization. Patient has a poor prognosis and unfortunately, has multiple medical problems, and does have coarse rhonchurous breath sounds at baseline. SHe continues to remain Full Code and wishes to have aggressive therapy. Repeat CT chest was done- shows improvement in cavitary lesions, persistent diffuse infectious/inflammatory process. ID started patient on IV Bactrim to treat MDRO Enterobacter, which was previously considered not significant. Patient would benefot from at least short term rehab placement, to which she has not agreed to, in the past. PT/OT evaluation recommend [facility], but patient is now agreeable for rehab placement and is medically stable for discharge, with outpatient f/up. she also has anemia of renal disease, intermittently requiring PRBC transfusions ; FOBT has been negative. - Time Spent with Patient Total time spent providing and/or coordinating discharge services: Greater than 30 minutes (60 min) - Constitutional Vitals: Temp Pulse Resp BP Pulse Ox 97.4 F L 79 15 115/69 93 12/15/17 10:50 12/15/17 08:28 12/15/17 10:50 12/15/17 11:20 12/15/17 08:28 General appearance: Present: cachectic, A&O X 3 (Extremely hard of hearing, does have selective hearing), underweight, answers questions appropriately - Respiratory Respiratory exam: Present: CTAB (coarse breath sounds but no rhonchi/wheezing). Absent: accessory muscle use, rales, rhonchi, wheezes - Cardiovascular Cardiovascular exam: Present: RRR, +S1, +S2. Absent: diastolic murmur, gallop, rubs, systolic murmur - VTE Documentation of Mechanical Device: Intermittent pneumatic compression device
--- NOTE | 2017-12-15 13:11 | Infectious Disease Progress No ---
Date of Encounter: 12/15/17 Time of Encounter: 11:00 - Assessment and Plan (1) Sepsis Current Visit: Yes Status: Resolved Severe sepsis on admission. The patient had two SIRS criteria with hypotension responsive to IV fluids. Likely secondary to fungemia and PNA. Resolved. The patient has been afebrile. Hypotension has resolved. Tachycardia has resolved. Peripheral blood cultures drawn 11/14/17 were positive 2/2 for Kelsey lusitaniae. Additional peripheral fungal blood culture drawn 11/16/17 is positive as well. Peripheral blood cultures drawn 11/17/16 were negative. A-port blood cultures drawn 11/17/17 were positive. Repeat blood cultures x 2 sets drawn 11/27/17 are negative. Qualifiers: Sepsis type: sepsis due to unspecified organism Qualified Code(s): A41.9 - Sepsis, unspecified organism (2) Fungemia Current Visit: Yes Status: Acute Causative organism Kelsey lusitiniae. Source unclear, but the patient was recently on TPN given through her a-port. Her a-port was removed 11/18/17. Peripheral blood cultures drawn 11/14/17 were positive 2/2. Additional peripheral fungal blood culture drawn 11/16/17 is positive as well. No blood cultures were drawn from the patient's a-port before antifungals were started. Repeat blood cultures x 2 sets from the a-port are positive and x2 sets from a peripheral stick drawn 11/17/17 are negative. Additional blood cultures drawn 11/27/17 are NGTD x 2 sets. Continue fluconazole, 400mg IV daily on HD days only. Treat through 12/15/17. Recommend keeping IV since the patient likely has poor absorption through the GI tract due to her SGS. Discontinue after dose today. Opthalmology evaluation noted and appreciated. No endopthalmitis. Duration of treatment depends on the clinical picture. Monitor CBC and LFTs while on antifungals. (3) Cavitary lesion of lung Current Visit: Yes Status: Acute CTA of the chest shows new when compared to previous examination (Oct 2017) multiple focal areas of consolidation within the periphery of the lungs, some with focal cavitation. Per radiology, given the rapid development, septic emboli are primarily considered. In addition, there are innumerable punctate centrilobular tree-in-bud ground-glass nodules that have an inflammatory/ infectious appearance, likely related related to infectious bronchiolitis, but could also be hematogenous as well. CT scan reviewed with Pulmonology team. Etiology unclear: fungemia vs. other. No CT scan obtained during this hospitalization to tell us if these lesions were there on admission or not. Pulmonology recommendations noted and appreciated. Status post bronchoscopy 11/28. Endoscopy report reviewed. Minimal secretions noted. No mucous plugs. BAL of the RML grew MDRO E. cloacae. MHT negative for CRE. Patient remains stable off antibiotics. Continue antifungals as above. Fungal serologies noted. Fungitell positive. BAL Aspergillus galactomannan positive, but serum negative. BAL pathology negative for fungal elements or malignancy. Discussed with pulmonology. No clinical picture indicates invasive infection: no new worsening cough, shortness of breath is at baseline, afebrile , does not appear toxic. She has been on and off steroids during her hospitalization, but she is not chronically immunosuppressed. Bronch really did not look impressive per pulmonology and the pulmonary team does not believe that the patient has invasive aspergillosis. Also reviewed [facility] Lab specimen clinical interpretation website and Histoplasma may cross-react with the Aspergillus antigen assay, leading to false positive test result. At this point, we will not broaden antifungal coverage to Voriconazole. Aspergillus IgE not detectable. Repeat CT scan of the chest done 12/08/17 noted. Discussed with pulmonology. Bronchiolitis changes are worse, but cavitary nodules minimally better. As for the Enterobacter cloace, not sure if this is a true infection vs. colonization. Given that the patient's repeat CT scan is not changed much, will start IV Bactrim x 14 days. Will request pharmacy's help with dosing for her HD schedule. Recommend IV since the patient's GI absorption is likely minimal due to her SGS. Continue droplet precautions. Continue through 12/22/17, then discontinue. Will plan on repeating CT scan once the patient completes IV antibiotics. (4) Pneumonia Current Visit: Yes Status: Suspected Location: Bilaterally. Causative organism unclear, but possible viral. RIP positive for HSV and Coronavirus. Previous sputum cultures positive for S. maltophilia, PSEA, and E. coli. CXR showed patchy airspace opacities bilaterally, more pronounced in the right lung base. Previously completed a 7 day course of Levaquin and 8 days of Zosyn. Review of the medical record shows that the patient has had multiple recurrences of PNA over the past six months. Pulmonology consulted. Status post bronchoscopy 11/28/17. Endoscopy report reviewed. Minimal secretions. RML BAL shows MDRO E. cloacae (not CRE). Given that the patient's CT scan is not much improved, IV Bactrim was started. Continue for 14 days. Pharmacy to assist with dosing for the patient's ESRD. Non-candidal yeast species noted on BAL. Final ID pending. Continue fluconazole as above. Qualifiers: Pneumonia type: due to unspecified organism Laterality: right Lung location: lower lobe of lung Qualified Code(s): J18.1 - Lobar pneumonia, unspecified organism (5) Bicytopenia Current Visit: No Status: Chronic Continues to have anemia and thrombocytopenia. Leukopenia persists - chronic, but may be worsened by Bactrim. Will need to monitor closely. Continue trend. Likely secondary to ESRD. Further workup and management per the primary team. (6) Chest pain Current Visit: Yes Status: Acute Appears musculoskeletal in origin. Likely secondary to PNA and chostochondritis. Troponin elevated likely secondary to demand ischemia from ESRD. Further workup and management per the primary team. Qualifiers: Chest pain type: unspecified Qualified Code(s): R07.9 - Chest pain, unspecified (7) Elevated troponin Current Visit: Yes Status: Acute Likely chronic secondary to CKD. EKG shows no acute changes. Further workup and management per the primary team. (8) Nausea and vomiting Current Visit: No Status: Chronic Likely secondary to short gut syndrome. Management per the primary team. Qualifiers: Vomiting type: unspecified Vomiting Intractability: non-intractable Qualified Code(s): R11.2 - Nausea with vomiting, unspecified (9) Abdominal pain Current Visit: No Status: Chronic Chronic. Further workup and management per the primary team. Qualifiers: Abdominal location: lower abdomen, unspecified Qualified Code(s): R10.30 - Lower abdominal pain, unspecified (10) Anemia in chronic kidney disease Current Visit: Yes Status: Chronic Likely multifactorial: poor nutrition + anemia of CKD. Management per the primary and nephrology teams. Qualifiers: Chronic kidney disease stage: on chronic dialysis Qualified Code(s): N18.6 - End stage renal disease; D63.1 - Anemia in chronic kidney disease; Z99.2 - Dependence on renal dialysis (11) COPD (chronic obstructive pulmonary disease) Current Visit: No Status: Chronic Management per the primary and pulmonology teams. Qualifiers: COPD type: emphysema Emphysema type: panlobular Qualified Code(s): J43.1 - Panlobular emphysema (12) ESRD (end stage renal disease) on dialysis Current Visit: Yes Status: Chronic Nephrology consulted and following. 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 Recently started on TPN, but the patient could not tolerate. Likely contributing to the patient's poor nutritional status. Management per the primary team. (14) Tobacco abuse Current Visit: Yes Status: Chronic - Subjective Interval history: Patient seen and examined in the HD unit. No acute events noted overnight. Patient states she feels "rough." Continues to reports pain in her entire chest , worse with deep cough or inspiration. She reports moist cough that is non- productive. She does not appear to be in any acute distress. She reports chronic nausea and vomiting with by mouth intake. She states she was not able to eat anything this morning. She reports liquid stool from her colostomy. She denies blood from her urostomy or colostomy. She denies oral thrush or new skin lesions. She denies fevers, chills, or rigors, but states she is always cold. Infect Dis PN-Objective Data - Labs CBC & Chem 7: 12/15/17 04:05 12/15/17 04:05 Labs: Laboratory Results - last 24 hr 12/10/17 12/15/17 12/15/17 06:30 04:05 04:05 WBC 2.7 L RBC 3.08 L Hgb 8.7 L Hct 27.7 L MCV 89.9 MCH 28.2 MCHC 31.4 L RDW 15.2 H Plt Count 94 L MPV 10.2 Immature Plt Fraction 3.4 Sodium 134 L Potassium 5.2 H Chloride 99 Carbon Dioxide 26 BUN 32 H Creatinine 6.39 H Est GFR ( Amer) 8 L Est GFR (Non-Af Amer) 6 L BUN/Creatinine Ratio 5 L Glucose 72 Calculated Osmolality 283 Calcium 7.2 L Allergen Test Interp SEE NOTE A. fumigatus IgE Ab <0.10 Cultures: Cultures 12/06/17 09:07 Anaerobic Culture - Final Chest No anaerobes were recovered. 11/28/17 13:00 Legionella Culture - Final Right Middle Lobe Lung Legionella Culture - Final 12/06/17 09:07 Wound Culture - Final Chest No growth. 11/28/17 13:00 Gram Stain - Final Right Middle Lobe Lung Respiratory Culture - Final Enterobacter cloacae MDRO 11/27/17 09:38 Blood Culture - Final Peripheral Venipuncture No growth. 11/27/17 08:37 Blood Culture - Final Peripheral Venipuncture No growth. 11/28/17 13:00 Fungal Culture - Preliminary Right Middle Lobe Lung Kelsey species, not ablicans 11/27/17 12:10 Fungal Culture - Final Left Arm No growth. 11/28/17 13:00 Acid Fast Stain - Final Right Middle Lobe Lung 11/16/17 05:13 Blood Fungal Culture - Final Peripheral Venipuncture No growth. 11/19/17 07:30 Blood Culture - Final Port System No growth. 11/19/17 07:35 Blood Culture - Final Port System No growth. 11/17/17 17:31 Blood Culture - Final Peripheral Venipuncture No growth. 11/17/17 17:31 Blood Culture - Final Peripheral Venipuncture No growth. 11/19/17 10:10 Catheter Tip Culture - Final Intravenous or Arterial Cath No growth. 11/17/17 18:09 Blood Culture - Final Port System Kelsey lusitaniae 11/16/17 05:05 Blood Fungal Culture - Final Peripheral Venipuncture Kelsey lusitaniae Serology 12/10/17 11/30/17 11/28/17 Range/Units 06:30 18:00 13:00 Fluid Source Fluid Volume mL Fluid Appearance (Clear) Fluid RBC (No Ref Range) M/mcL Fld Tot Nucleated Cell (No Ref Range) TNC/mcL Fluid Seg Neutrophil % % Fld Band Neutrophil % % Fluid Lymphocytes % % Fluid Monocytes % % Fluid Eosinophils % % Fluid Basophils % % Fluid Other Cells % % BAL A. galactomannan Ag POSITIVE A (Negative) Stool Occult Blood Negative (Negative) A. baumannii (PCR) (Not Detect) Chlamy pneumoniae PCR (Not Detect) Adenovirus (PCR) (Not Detect) Blastomyces Ab Comp Fx B. pertussis DNA (PCR) (Not Detect) B.parapertussis DNA PCR (Not Detect) Kelsey albicans (PCR) (Not Detect) C. glabrata (PCR) (Not Detect) C. krusei (PCR) (Not Detect) C. parapsilosis (PCR) (Not Detect) C. tropicalis (PCR) (Not Detect) Coronavirus OC43 (PCR) (Not Detect) Coronavirus HKU1 (PCR) (Not Detect) Coronavirus 229E (PCR) (Not Detect) Coronavirus NL63 (PCR) (Not Detect) Enterobacteriac sp PCR (Not Detect) E. cloacae complex PCR (Not Detect) Enterococcus sp PCR (Not Detect) E. coli (PCR) (Not Detect) H. influenzae (PCR) (Not Detect) Histoplasma Antigen U/mL Histoplasma Ag Interp (Negative) Human Metapneumovir PCR (Not Detect) Influenza A (H1) PCR (Not Detect) Influ A (H1N1/09) PCR (Not Detect) Influenza A (H3) PCR (Not Detect) Influenza Type A (PCR) Influenza A Untype (PCR) (Not Detect) Influenza Type B (PCR) (Not Detect) Klebsiella oxytoca PCR (Not Detect) Klebsiella pneumoniae (Not Detect) List. monocytogenes PCR (Not Detect) M.pneumoniae DNA (PCR) (Not Detect) N. meningitidis (PCR) (Not Detect) Parainfluenza 1 (PCR) (Not Detect) Parainfluenza 2 (PCR) (Not Detect) Parainfluenza 3 (PCR) (Not Detect) Parainfluenza 4 (PCR) (Not Detect) A. fumigatus IgE Ab <0.10 (<=0.34) kU/L A. galactomannan Ag (Negative) A. galactomannan Ag Idx Proteus species (PCR) (Not Detect) RSV (PCR) (Not Detect) Entero/Rhino (PCR) (Not Detect) Serratia marcescens PCR (Not Detect) Staphylococcus sp PCR (Not Detect) Staph aureus (PCR) (Not Detect) mecA-Methicil Res Gene (Not Detect) Streptococcus sp PCR (Not Detect) Group A Strep DNA (Not Detect) Group B Strep (PCR) (Not Detect) Strep pneumoniae (PCR) (Not Detect) P. aeruginosa (PCR) (Not Detect) Yony/B-Vanco Res Genes (Not Detect) KPC (blaKPC) Detect PCR (Not Detect) Beta-(1,3)-D-Glucan pg/mL B-(1,3)-D-Glucan Intrp (Negative) 11/28/17 11/28/17 11/28/17 Range/Units 13:00 13:00 05:30 Fluid Source RML BAL NOT PROVIDED Fluid Volume 25 mL Fluid Appearance Cloudy A (Clear) Fluid RBC 0.002 (No Ref Range) M/mcL Fld Tot Nucleated Cell 1663 (No Ref Range) TNC/mcL Fluid Seg Neutrophil % 18.0 % Fld Band Neutrophil % 0.0 % Fluid Lymphocytes % 34.0 % Fluid Monocytes % 1.0 % Fluid Eosinophils % 0.0 % Fluid Basophils % 0.0 % Fluid Other Cells % 47.0 % BAL A. galactomannan Ag (Negative) Stool Occult Blood (Negative) A. baumannii (PCR) (Not Detect) Chlamy pneumoniae PCR (Not Detect) Adenovirus (PCR) (Not Detect) Blastomyces Ab Comp Fx B. pertussis DNA (PCR) (Not Detect) B.parapertussis DNA PCR (Not Detect) Kelsey albicans (PCR) (Not Detect) C. glabrata (PCR) (Not Detect) C. krusei (PCR) (Not Detect) C. parapsilosis (PCR) (Not Detect) C. tropicalis (PCR) (Not Detect) Coronavirus OC43 (PCR) (Not Detect) Coronavirus HKU1 (PCR) (Not Detect) Coronavirus 229E (PCR) (Not Detect) Coronavirus NL63 (PCR) (Not Detect) Enterobacteriac sp PCR (Not Detect) E. cloacae complex PCR (Not Detect) Enterococcus sp PCR (Not Detect) E. coli (PCR) (Not Detect) H. influenzae (PCR) (Not Detect) Histoplasma Antigen U/mL Histoplasma Ag Interp (Negative) Human Metapneumovir PCR (Not Detect) Influenza A (H1) PCR (Not Detect) Influ A (H1N1/09) PCR (Not Detect) Influenza A (H3) PCR (Not Detect) Influenza Type A (PCR) DETECTED A Influenza A Untype (PCR) (Not Detect) Influenza Type B (PCR) NOT DETECTED (Not Detect) Klebsiella oxytoca PCR (Not Detect) Klebsiella pneumoniae (Not Detect) List. monocytogenes PCR (Not Detect) M.pneumoniae DNA (PCR) (Not Detect) N. meningitidis (PCR) (Not Detect) Parainfluenza 1 (PCR) (Not Detect) Parainfluenza 2 (PCR) (Not Detect) Parainfluenza 3 (PCR) (Not Detect) Parainfluenza 4 (PCR) (Not Detect) A. fumigatus IgE Ab (<=0.34) kU/L A. galactomannan Ag NEGATIVE (Negative) A. galactomannan Ag Idx 0.06 Proteus species (PCR) (Not Detect) RSV (PCR) DETECTED A (Not Detect) Entero/Rhino (PCR) (Not Detect) Serratia marcescens PCR (Not Detect) Staphylococcus sp PCR (Not Detect) Staph aureus (PCR) (Not Detect) mecA-Methicil Res Gene (Not Detect) Streptococcus sp PCR (Not Detect) Group A Strep DNA (Not Detect) Group B Strep (PCR) (Not Detect) Strep pneumoniae (PCR) (Not Detect) P. aeruginosa (PCR) (Not Detect) Yony/B-Vanco Res Genes (Not Detect) KPC (blaKPC) Detect PCR (Not Detect) Beta-(1,3)-D-Glucan pg/mL B-(1,3)-D-Glucan Intrp (Negative) 11/28/17 11/28/17 11/18/17 Range/Units 05:30 05:30 08:41 Fluid Source Fluid Volume mL Fluid Appearance (Clear) Fluid RBC (No Ref Range) M/mcL Fld Tot Nucleated Cell (No Ref Range) TNC/mcL Fluid Seg Neutrophil % % Fld Band Neutrophil % % Fluid Lymphocytes % % Fluid Monocytes % % Fluid Eosinophils % % Fluid Basophils % % Fluid Other Cells % % BAL A. galactomannan Ag (Negative) Stool Occult Blood (Negative) A. baumannii (PCR) (Not Detect) Chlamy pneumoniae PCR Not Detected (Not Detect) Adenovirus (PCR) Not Detected (Not Detect) Blastomyces Ab Comp Fx SEE BELOW B. pertussis DNA (PCR) Not Detected (Not Detect) B.parapertussis DNA PCR Not Detected (Not Detect) Kelsey albicans (PCR) (Not Detect) C. glabrata (PCR) (Not Detect) C. krusei (PCR) (Not Detect) C. parapsilosis (PCR) (Not Detect) C. tropicalis (PCR) (Not Detect) Coronavirus OC43 (PCR) Not Detected (Not Detect) Coronavirus HKU1 (PCR) DETECTED A (Not Detect) Coronavirus 229E (PCR) Not Detected (Not Detect) Coronavirus NL63 (PCR) Not Detected (Not Detect) Enterobacteriac sp PCR (Not Detect) E. cloacae complex PCR (Not Detect) Enterococcus sp PCR (Not Detect) E. coli (PCR) (Not Detect) H. influenzae (PCR) (Not Detect) Histoplasma Antigen <2.0 U/mL Histoplasma Ag Interp NEGATIVE (Negative) Human Metapneumovir PCR Not Detected (Not Detect) Influenza A (H1) PCR Not Detected (Not Detect) Influ A (H1N1/09) PCR Not Detected (Not Detect) Influenza A (H3) PCR Not Detected (Not Detect) Influenza Type A (PCR) Influenza A Untype (PCR) Not Detected (Not Detect) Influenza Type B (PCR) Not Detected (Not Detect) Klebsiella oxytoca PCR (Not Detect) Klebsiella pneumoniae (Not Detect) List. monocytogenes PCR (Not Detect) M.pneumoniae DNA (PCR) Not Detected (Not Detect) N. meningitidis (PCR) (Not Detect) Parainfluenza 1 (PCR) Not Detected (Not Detect) Parainfluenza 2 (PCR) Not Detected (Not Detect) Parainfluenza 3 (PCR) Not Detected (Not Detect) Parainfluenza 4 (PCR) Not Detected (Not Detect) A. fumigatus IgE Ab (<=0.34) kU/L A. galactomannan Ag (Negative) A. galactomannan Ag Idx Proteus species (PCR) (Not Detect) RSV (PCR) DETECTED A (Not Detect) Entero/Rhino (PCR) Not Detected (Not Detect) Serratia marcescens PCR (Not Detect) Staphylococcus sp PCR (Not Detect) Staph aureus (PCR) (Not Detect) mecA-Methicil Res Gene (Not Detect) Streptococcus sp PCR (Not Detect) Group A Strep DNA (Not Detect) Group B Strep (PCR) (Not Detect) Strep pneumoniae (PCR) (Not Detect) P. aeruginosa (PCR) (Not Detect) Yony/B-Vanco Res Genes (Not Detect) KPC (blaKPC) Detect PCR (Not Detect) Beta-(1,3)-D-Glucan >500 pg/mL B-(1,3)-D-Glucan Intrp POSITIVE A (Negative) 11/17/17 11/17/17 Range/Units 18:09 17:31 Fluid Source Fluid Volume mL Fluid Appearance (Clear) Fluid RBC (No Ref Range) M/mcL Fld Tot Nucleated Cell (No Ref Range) TNC/mcL Fluid Seg Neutrophil % % Fld Band Neutrophil % % Fluid Lymphocytes % % Fluid Monocytes % % Fluid Eosinophils % % Fluid Basophils % % Fluid Other Cells % % BAL A. galactomannan Ag (Negative) Stool Occult Blood (Negative) A. baumannii (PCR) Not Detected (Not Detect) Chlamy pneumoniae PCR (Not Detect) Adenovirus (PCR) (Not Detect) Blastomyces Ab Comp Fx B. pertussis DNA (PCR) (Not Detect) B.parapertussis DNA PCR (Not Detect) Kelsey albicans (PCR) Not Detected (Not Detect) C. glabrata (PCR) Not Detected (Not Detect) C. krusei (PCR) Not Detected (Not Detect) C. parapsilosis (PCR) Not Detected (Not Detect) C. tropicalis (PCR) Not Detected (Not Detect) Coronavirus OC43 (PCR) (Not Detect) Coronavirus HKU1 (PCR) (Not Detect) Coronavirus 229E (PCR) (Not Detect) Coronavirus NL63 (PCR) (Not Detect) Enterobacteriac sp PCR Not Detected (Not Detect) E. cloacae complex PCR Not Detected (Not Detect) Enterococcus sp PCR Not Detected (Not Detect) E. coli (PCR) Not Detected (Not Detect) H. influenzae (PCR) Not Detected (Not Detect) Histoplasma Antigen U/mL Histoplasma Ag Interp (Negative) Human Metapneumovir PCR (Not Detect) Influenza A (H1) PCR (Not Detect) Influ A (H1N1/09) PCR (Not Detect) Influenza A (H3) PCR (Not Detect) Influenza Type A (PCR) Influenza A Untype (PCR) (Not Detect) Influenza Type B (PCR) (Not Detect) Klebsiella oxytoca PCR Not Detected (Not Detect) Klebsiella pneumoniae Not Detected (Not Detect) List. monocytogenes PCR Not Detected (Not Detect) M.pneumoniae DNA (PCR) (Not Detect) N. meningitidis (PCR) Not Detected (Not Detect) Parainfluenza 1 (PCR) (Not Detect) Parainfluenza 2 (PCR) (Not Detect) Parainfluenza 3 (PCR) (Not Detect) Parainfluenza 4 (PCR) (Not Detect) A. fumigatus IgE Ab (<=0.34) kU/L A. galactomannan Ag (Negative) A. galactomannan Ag Idx Proteus species (PCR) Not Detected (Not Detect) RSV (PCR) (Not Detect) Entero/Rhino (PCR) (Not Detect) Serratia marcescens PCR Not Detected (Not Detect) Staphylococcus sp PCR Not Detected (Not Detect) Staph aureus (PCR) Not Detected (Not Detect) mecA-Methicil Res Gene N/A (Not Detect) Streptococcus sp PCR Not Detected (Not Detect) Group A Strep DNA Not Detected (Not Detect) Group B Strep (PCR) Not Detected (Not Detect) Strep pneumoniae (PCR) Not Detected (Not Detect) P. aeruginosa (PCR) Not Detected (Not Detect) Yony/B-Vanco Res Genes N/A (Not Detect) KPC (blaKPC) Detect PCR N/A (Not Detect) Beta-(1,3)-D-Glucan 470 pg/mL B-(1,3)-D-Glucan Intrp POSITIVE A (Negative) Exam - Constitutional Vitals: Temp Pulse Resp BP Pulse Ox 97.4 F L 79 15 149/69 93 12/15/17 10:50 12/15/17 08:28 12/15/17 10:50 12/15/17 12:05 12/15/17 08:28 General appearance: cooperative, no acute distress, thin - Head Head exam: Present: atraumatic, normal inspection, normocephalic - Eye Eye exam: Present: EOMI, normal appearance, PERRL Pupils: Present: normal accommodation - ENT ENT exam: Present: mucous membranes dry - Neck Neck exam: Present: normal inspection - Respiratory Respiratory exam: Present: rhonchi, wheezes (coarse, expiratory, throughout). Absent: respiratory distress, tachypnea - Cardiovascular Cardiovascular exam: Present: RRR, +S1, +S2 - GI/Abdominal GI/Abdominal exam: Present: normal bowel sounds, soft, tenderness (generalized) Additional comments: Colostomy noted to the LLQ with small amount of brown liquid stool noted in the collection bag. Urostomy noted to the RLQ with small amount of clear yellow urine noted in the collection bag. - Extremities Exam Extremities exam: Present: normal inspection. Absent: joint swelling, pedal edema, tenderness - Neurological Exam Neurological exam: Present: alert, oriented X3, no focal deficits - Psychiatric Psychiatric exam: Present: normal affect, normal mood - Skin Skin exam: Present: dry, intact, normal color, warm - VTE Documentation of Mechanical Device: Intermittent pneumatic compression device Consult Discharge Plan - Plan Additional Instructions: F/up with PCP in 1-2 weeks F/up for HD 3 times/week- MWF F/up with ID in 2 weeks Referrals: Na Johansen, TYLER [Primary Care Provider] - (Call at discharge due to lengthy stay [facility] Prescriptions: Gabapentin [Neurontin] 100 mg PO TID #30 capsule LORazepam [Ativan] 0.5 mg PO BID PRN 10 Days #10 tablet PRN Reason: Anxiety OxyCODONE Immed Rel [Roxicodone 5 MG] 2.5 mg PO Q5H PRN 5 Days #10 tablet PRN Reason: Pain Sulfamethoxazole/Trimeth [Bactrim 800MG/160MG/10ML] 10 ml IV BID #7 vial Sulfamethoxazole/Trimeth [Bactrim 800MG/160MG/10ML] 10 ml IV DAILY #5 vial - Attending Attestation I examined this patient and my medical decision-making was reviewed with the Resident Physician. I agree with the documented findings, disposition and treatment plan as described except to the extent set forth below.
--- NOTE | 2017-12-15 13:12 | Physician Discharge Referral ---
ExtendedCare Referral Info Transfer To: [facility] Provider in Charge: Gisselle Hoover Provider in Charge after Transfer: PCP Institutional Level of Care: Skilled - Diagnosis (1) Cavitary lesion of lung Priority: Primary Status: Acute (2) Fungemia Priority: Primary Status: Acute (3) Pneumonia Priority: Primary Status: Acute (4) Sepsis Priority: Primary Status: Resolved (5) COPD exacerbation Priority: Primary Status: Acute (6) Goals of care, counseling/discussion Priority: Primary Status: Acute (7) Anemia in chronic kidney disease Priority: Secondary Status: Chronic (8) Atrial fibrillation Priority: Secondary Status: Chronic (9) ESRD (end stage renal disease) on dialysis Priority: Secondary Status: Chronic (10) Hypothyroid Priority: Secondary Status: Chronic (11) Tobacco abuse Priority: Secondary Status: Chronic (12) Acute respiratory failure with hypoxia Priority: Primary Status: Acute Expected Duration of Placement: 3 weeks Prognosis: Poor Aware of Diagnosis: Patient Aware of Prognosis: Patient - Transfer Medications Prescriptions: Gabapentin [Neurontin] 100 mg PO TID #30 capsule LORazepam [Ativan] 0.5 mg PO BID PRN 10 Days #10 tablet PRN Reason: Anxiety OxyCODONE Immed Rel [Roxicodone 5 MG] 2.5 mg PO Q5H PRN 5 Days #10 tablet PRN Reason: Pain Sulfamethoxazole/Trimeth [Bactrim 800MG/160MG/10ML] 10 ml IV BID #7 vial Sulfamethoxazole/Trimeth [Bactrim 800MG/160MG/10ML] 10 ml IV DAILY #5 vial Home Medications: Cholecalciferol (Vitamin D3) [Vitamin D3] 5,000 unit PO DAILY #0 09/19/15 [ History] Ranitidine HCl [Zantac] 150 mg PO HS 09/19/15 [History] Cyanocobalamin (B-12) [Vitamin B12] 1,000 mcg IM QMONTH 02/21/17 [History] Levothyroxine Sodium [Synthroid] 300 mcg PO DAILY 02/21/17 [History] Mometasone/Formoterol [Dulera 100 Mcg/5 Mcg Inhaler] 2 puff IH BID 02/21/17 [ History] Lidocaine/Prilocaine CREAM [Emla] 1 appl TP AD PRN 06/30/17 [History] Renal Vitamin [Renal Caps Softgel] 1 mg PO DAILY 06/30/17 [History] Acetaminophen [Tylenol] 650 mg PO Q6HR PRN #20 tab 07/10/17 [Rx] Menthol [[place]] 3.2 mg MM Q4H PRN 07/16/17 [History] GuaiFENesin ER [Mucinex] 600 mg PO BID 5 Days #10 tbbp.12hr 09/14/17 [Rx] Calcium Acetate [Phos-LO] 667 mg PO TIDWM 10/17/17 [History] Benzonatate [Tessalon] 100 mg PO TID PRN #90 capsule 10/24/17 [Rx] Calcitriol [Rocaltrol] 0.25 mcg PO DAILY capsule 10/24/17 [Rx] Ipratropium/Albuterol Neb [Duoneb] 3 ml IH [id number] inhsol 10/24/17 [Rx] Ferrous Sulfate 325 mg PO DAILY 11/14/17 [History] Darbepoetin [Aranesp] 60 mcg SQ Th syringe 12/15/17 [Rx] Diltiazem [Cardizem] 30 mg PO Q6HR tablet 12/15/17 [Rx] Fluticasone Propionate Nasal [Flonase] 50 mcg NS DAILY bottle 12/15/17 [Rx] Gabapentin [Neurontin] 100 mg PO TID #30 capsule 12/15/17 [Rx] Ipratropium/Albuterol Neb [Duoneb] 3 ml IH [id number] PRN inhsol 12/15/17 [Rx] LORazepam [Ativan] 0.5 mg PO BID PRN 10 Days #10 tablet 12/15/17 [Rx] Nicotine Patch [Nicoderm] 21 mg TD DAILY patch.td24 12/15/17 [Rx] Nitroglycerin 0.4 mg SL Q5MIN PRN tab.subl 12/15/17 [Rx] OxyCODONE Immed Rel [Roxicodone 5 MG] 2.5 mg PO Q5H PRN 5 Days #10 tablet [Rx] Sulfamethoxazole/Trimeth [Bactrim 800MG/160MG/10ML] 10 ml IV BID #7 vial [Rx] Sulfamethoxazole/Trimeth [Bactrim 800MG/160MG/10ML] 10 ml IV DAILY #5 vial 12/15 [Rx] Allergies/Adverse Reactions: 3 Allergy/AdvReac Type Severity Reaction Status Date / Time codeine AdvReac Severe Vomiting Verified 03/06/17 15:22 naproxen [From Naprosyn] AdvReac Severe Vomiting Verified 03/06/17 15:22 - Respiratory Orders Oxygen / L per min (2-3L/min via NC) Smoking Cessation: Smoking cessation has been advised. For more information, call the [place] Tobacco Quit Line at 6-579-FADO-NOW. - Advance Directives Code Status: Full Code - Mobility Orders Ambulate - Rehabiliation Orders Rehab Potential: Fair Rehab Orders: ROM Exercises, Evaluation for Physical Therapy, Evaluation for Occupational Therapy - Diet Orders Renal, Cardiac House Supplement per Dietary: Butter Pecan Nepro once daily CERTIFICATION: I certify that the transfer of the above named patient to an Extended Care Facility is necessary for the continuing treatment of the diagnosis listed. The above information is true and accurate reflection of patient's current condition. Confidential - Redisclosure prohibited without a patient's written consent.
[2017-12-15 14:51] VITALS: BP 121/71
== END 2017-12-15 15:05 | DRG 721 ==
LOC: EMEROO 09:13 → 2SOUTHHOLD 09:13 → 2ANU 12:01 → ICNU 15:22 → SUATTDRO 16:01 → 2ANU 11-16 10:41
PROVIDERS: ADMIT Internal Medicine Pulmonary Disease; ATTEND Internal Medicine

== ENCOUNTER 2018-02-07 20:55 | Inpatient (IN) ==
[2018-02-07] MEDS ORDERED: Ipratropium/Albuterol Neb 3 ML IH ONE (21:04)
[2018-02-07] MEDS ORDERED: methylPREDNISolone 125 MG/2 ML VIAL IVP ONE (21:07)
--- NOTE | 2018-02-07 21:18 | Emergency Department Note ---
Disposition Clinical Impression: COPD exacerbation, Bronchitis, Coughing Reactive airway disease Qualifiers: Asthma severity: moderate Asthma persistence: persistent Asthma complication type: with acute exacerbation Qualified Code(s): J45.41 - Moderate persistent asthma with (acute) exacerbation Disposition: Admitted As Inpatient Condition: Fair General Adult HPI - General Chief complaint: ED Weakness Stated complaint: weakness SOB Source: EMS Limitations: no limitations - History of Present Illness Pain Scale: 0 - Related Data Home Medications Medication Instructions Recorded Confirmed Cholecalciferol (Vitamin D3) 5,000 unit PO DAILY #0 09/19/15 01/13/18 [Vitamin D3] Ranitidine HCl [Zantac] 150 mg PO HS 09/19/15 01/13/18 Cyanocobalamin (B-12) [Vitamin B12] 1,000 mcg IM QMONTH 02/21/17 01/13/18 Levothyroxine Sodium [Synthroid] 300 mcg PO DAILY 02/21/17 01/13/18 Lidocaine/Prilocaine CREAM [Emla] 1 appl TP AD PRN 06/30/17 01/13/18 Renal Vitamin [Renal Caps Softgel] 1 mg PO DAILY 06/30/17 01/13/18 Menthol [[place]] 3.2 mg MM Q4H PRN 07/16/17 01/13/18 Calcium Acetate [Phos-LO] 667 mg PO TIDWM 10/17/17 01/13/18 Ferrous Sulfate 325 mg PO DAILY 11/14/17 01/13/18 Previous Rx's Medication Instructions Recorded Acetaminophen [Tylenol] 650 mg PO Q6HR PRN #20 tab 07/10/17 GuaiFENesin ER [Mucinex] 600 mg PO BID 5 Days #10 tbbp.12hr 09/14/17 Benzonatate [Tessalon] 100 mg PO TID PRN #90 capsule 10/24/17 Calcitriol [Rocaltrol] 0.25 mcg PO DAILY capsule 10/24/17 Darbepoetin [Aranesp] 60 mcg SQ Th syringe 12/15/17 Diltiazem [Cardizem] 30 mg PO Q6HR tablet 12/15/17 Fluticasone Propionate Nasal 50 mcg NS DAILY bottle 12/15/17 [Flonase] Gabapentin [Neurontin] 100 mg PO TID #30 capsule 02/12/18 Ipratropium/Albuterol Neb [Duoneb] 3 ml IH [id number] PRN inhsol 12/15/17 LORazepam [Ativan] 0.5 mg PO BID PRN 10 Days #10 12/15/17 tablet Nitroglycerin 0.4 mg SL Q5MIN PRN tab.subl 12/15/17 Allergies Allergy/AdvReac Type Severity Reaction Status Date / Time codeine AdvReac Severe Vomiting Verified 01/13/18 07:37 naproxen [From Naprosyn] AdvReac Severe Vomiting Verified 01/13/18 07:37 Past Medical History - Past Medical History Medical history: Reports: asthma, atrial fibrillation, COPD, GERD, hypertension , renal disease, thyroid disease, other Surgical history: Reports: appendectomy, cholecystectomy, colostomy, herniorrhaphy, hysterectomy, other Psychiatric history: Reports: no psych history - Social History Smoking Status: Current every day smoker Smokeless Tobacco Status: No Alcohol use: Reports: none Drug use: Reports: none Physical Exam - General Limitations: no limitations General appearance: alert, in no apparent distress Course Vital Signs Temperature 99.6 F 02/07/18 20:57 Pulse Rate 88 02/07/18 20:57 Respiratory Rate 18 02/07/18 20:57 Blood Pressure 118/56 02/07/18 20:57 O2 Sat by Pulse Oximetry 98 02/07/18 20:57 Temperature 99.0 F 02/08/18 00:13 Pulse Rate 94 02/08/18 00:13 Respiratory Rate 16 02/08/18 00:13 Blood Pressure 112/50 02/08/18 00:13 O2 Sat by Pulse Oximetry 94 02/08/18 00:13 Oxygen Delivery Oxygen Delivery Nasal Cannula Medical Decision Making - Lab Data Result diagrams: 02/07/18 21:20 02/07/18 21:20 Lab Results 02/07/18 02/07/18 Range/Units 21:20 21:20 WBC 6.6 (4.3-11.1) K/mcL RBC 3.62 L (3.82-4.97) M/mcL Hgb 11.6 (11.5-15.4) g/dL Hct 35.9 (35.3-44.9) % MCV 99.2 (83.0-100.0) fL MCH 32.0 (28.0-33.3) pg MCHC 32.3 (31.6-35.5) g/dL RDW 21.7 H (11.5-14.5) % Plt Count 55 L (140-400) K/mcL MPV 11.5 (9.4-12.4) fL Immature Gran % 1.1 (0-4) % Seg Neutrophils % 69.6 % Lymphocytes % 24.5 % Monocytes % 1.1 % Eosinophils % 3.4 % Basophils % 0.3 % Neutrophils # 4.6 (1.6-8.9) K/mcL Lymphocytes # 1.6 (0.6-4.6) K/mcL Monocytes # 0.1 (0.0-1.3) K/mcL Eosinophils # 0.2 (0.0-0.6) K/mcL Basophils # 0.0 (0.0-0.2) K/mcL Nucleated RBCs/100 WBC 0.3 H (0) /100 WBC Immature Plt Fraction 3.7 (1.1-6.1) % Sodium 137 (136-145) mEq/L Potassium 4.1 (3.5-5.1) mEq/L Chloride 104 (98-107) mEq/L Carbon Dioxide 17 L (23-29) mEq/L BUN 25 H (8-23) mg/dL Creatinine 8.69 H (0.60-1.20) mg/dL Est GFR ( Amer) 5 L (> 60) Est GFR (Non-Af Amer) 4 L (> 60) BUN/Creatinine Ratio 3 L (6-26) Glucose 84 (70-105) mg/dL Calculated Osmolality 288 (280-300) Calcium 7.5 L (8.6-10.3) mg/dL Troponin I < 0.03 (< 0.04) ng/mL Attestation Statement - Attestation Attestation: I examined this patient and my medical decision-making was reviewed with the Resident Physician. I agree with the documented findings, disposition and treatment plan as described except to the extent set forth below. Patient presents to the ED with a chief complaint of difficulty breathing and weakness. Patient was recently discharged from a fpc a few days ago. She has had increasing shortness of breath over the past few hours. No fever. Coughing. Patient is on dialysis. Patient with diffuse rhonchi on lung auscultation. Mildly tachypneic. Plan. Cardiac workup. Labs. Steroids. Likely admission. No pneumonia. Labs show chronic renal insufficiency. Patient is started on Levaquin for a presumed COPD exacerbation admitted to the hospitalist.
[2018-02-07] MEDS ORDERED: Ondansetron 4 MG/2 ML VIAL IVP ONE (21:23)
--- NOTE | 2018-02-07 21:31 | Emergency Department Note ---
Disposition Clinical Impression: COPD exacerbation, Bronchitis, Coughing Reactive airway disease Qualifiers: Asthma severity: moderate Asthma persistence: persistent Asthma complication type: with acute exacerbation Qualified Code(s): J45.41 - Moderate persistent asthma with (acute) exacerbation Disposition: Admitted As Inpatient Condition: Fair Time of Disposition: 00:18 General Adult HPI - General Chief complaint: ED Weakness Stated complaint: weakness SOB Source: EMS Limitations: no limitations Nursing Notes Reviewed: Yes Vital Signs Reviewed: Yes - History of Present Illness HPI Narrative: 72-year-old female brought in by EMS for shortness of breath Pain Scale: 0 - Related Data Home Medications Medication Instructions Recorded Confirmed Cholecalciferol (Vitamin D3) 5,000 unit PO DAILY #0 09/19/15 01/13/18 [Vitamin D3] Ranitidine HCl [Zantac] 150 mg PO HS 09/19/15 01/13/18 Cyanocobalamin (B-12) [Vitamin B12] 1,000 mcg IM QMONTH 02/21/17 01/13/18 Levothyroxine Sodium [Synthroid] 300 mcg PO DAILY 02/21/17 01/13/18 Lidocaine/Prilocaine CREAM [Emla] 1 appl TP AD PRN 06/30/17 01/13/18 Renal Vitamin [Renal Caps Softgel] 1 mg PO DAILY 06/30/17 01/13/18 Menthol [[place]] 3.2 mg MM Q4H PRN 07/16/17 01/13/18 Calcium Acetate [Phos-LO] 667 mg PO TIDWM 10/17/17 01/13/18 Ferrous Sulfate 325 mg PO DAILY 11/14/17 01/13/18 Previous Rx's Medication Instructions Recorded Acetaminophen [Tylenol] 650 mg PO Q6HR PRN #20 tab 07/10/17 GuaiFENesin ER [Mucinex] 600 mg PO BID 5 Days #10 tbbp.12hr 09/14/17 Benzonatate [Tessalon] 100 mg PO TID PRN #90 capsule 10/24/17 Calcitriol [Rocaltrol] 0.25 mcg PO DAILY capsule 10/24/17 Darbepoetin [Aranesp] 60 mcg SQ Th syringe 12/15/17 Diltiazem [Cardizem] 30 mg PO Q6HR tablet 12/15/17 Fluticasone Propionate Nasal 50 mcg NS DAILY bottle 12/15/17 [Flonase] Gabapentin [Neurontin] 100 mg PO TID #30 capsule 12/15/17 Ipratropium/Albuterol Neb [Duoneb] 3 ml IH [id number] PRN inhsol 12/15/17 LORazepam [Ativan] 0.5 mg PO BID PRN 10 Days #10 12/15/17 tablet Nitroglycerin 0.4 mg SL Q5MIN PRN tab.subl 12/15/17 Allergies Allergy/AdvReac Type Severity Reaction Status Date / Time codeine AdvReac Severe Vomiting Verified 01/13/18 07:37 naproxen [From Naprosyn] AdvReac Severe Vomiting Verified 01/13/18 07:37 All systems ED: reviewed and negative except as stated. Review of Systems: As Per HPI Constitutional: Denies: fever, chills ENT ED: Reports: congestion Cardiovascular: Denies: chest pain Respiratory: Reports: cough, dyspnea, wheezes Past Medical History - Past Medical History Attestation: Yes The following information was validated with the patient. Source: patient, nursing notes reviewed Medical history: Reports: asthma, atrial fibrillation, COPD, GERD, hypertension , renal disease, thyroid disease, other Surgical history: Reports: appendectomy, cholecystectomy, colostomy, herniorrhaphy, hysterectomy, other Psychiatric history: Reports: no psych history - Social History Smoking Status: Current every day smoker Smokeless Tobacco Status: No Alcohol use: Reports: none Drug use: Reports: none Physical Exam Vital Signs Temperature 99.6 F 02/07/18 20:57 Pulse Rate 88 02/07/18 20:57 Respiratory Rate 18 02/07/18 20:57 Blood Pressure 118/56 02/07/18 20:57 O2 Sat by Pulse Oximetry 98 02/07/18 20:57 Temperature 99.6 F 02/07/18 20:57 Pulse Rate 88 02/07/18 20:57 Respiratory Rate 24 02/07/18 21:12 Blood Pressure 118/56 02/07/18 20:57 O2 Sat by Pulse Oximetry 96 02/07/18 21:12 Oxygen Delivery Oxygen Delivery Nasal Cannula CONSTITUTIONAL: Well-appearing; well-nourished; A&O X 3, in no apparent distress HEAD: Normocephalic; atraumatic EYES: PERRL, no scleral icterus NOSE: The nose is normal in appearance without rhinorrhea NECK: No JVD or distended neck veins RESP: Normal chest excursion with respiration; breath sounds clear and equal bilaterally; no wheezes, rhonchi, or rales CARD: Regular rhythm, without murmurs, rub or gallop ABD: Non-distended; non-tender, soft, without rigidity, rebound or guarding,no pulsatile mass CHEST: No pain with palpation SKIN: Normal for age and race; warm and dry without diaphoresis ; no apparent lesions EXTREMITIES: Pulses are 2 plus and equal times 4 extremities, no peripheral edema or calf muscle pain - General Limitations: no limitations General appearance: alert, in no apparent distress Course - Reevaluation(s) Reevaluation #1: Patient being transferred to the floor but now complaining of chest pain, but states she has had chest pain all day today but did not admit to chest pain when she was asked during initial evaluation. Time: 23:37 - Consultations Consultation #1: Dr. Lea the hospitalist as accepted patient for admission. Time: 23:01 Vital Signs Temperature 99.6 F 02/07/18 20:57 Pulse Rate 88 02/07/18 20:57 Respiratory Rate 18 02/07/18 20:57 Blood Pressure 118/56 02/07/18 20:57 O2 Sat by Pulse Oximetry 98 02/07/18 20:57 Temperature 99.6 F 02/07/18 20:57 Pulse Rate 87 02/07/18 23:25 Respiratory Rate 18 02/07/18 23:25 Blood Pressure 108/50 02/07/18 23:25 O2 Sat by Pulse Oximetry 100 02/07/18 23:25 Oxygen Delivery Oxygen Delivery Nasal Cannula Medical Decision Making - [facility] Narrative Medical decision making narrative: Patient had shortness of breath and the facial edema with wet sounding cough syrup for a COPD exacerbation and possible pneumonia, flash pulmonary edema with wet lung sounds and coarse crackles bibasilar on auscultation along with edema to the face. Chest x-ray, CBC, BMP, troponin and EKG ordered. Chest x-ray results show reactive airway disease signs or bronchitis. No consolidations seen to represent pneumonia. Patient was given DuoNeb therapy 3 which improved her breathing but patient still sounds very wet. Patient was started on levofloxacin for a COPD exacerbation from her bronchitis. Patient also received 125 IV methylprednisolone. Albuterol inhaler 3 was also ordered. Patient's labs negative for elevation of WBC, troponin Patient is maintaining her O2 saturations above 96 at 3 L. but still short of breath and will require admission for COPD exacerbation from acute bronchitis/ reactive airway disease Dr. Lea the hospitalist as accepted patient for admission. - Lab Data Lab results reviewed: Yes I reviewed the patient's lab results. Lab results narrative: Short CBC 02/07/18 Range/Units 21:20 WBC 6.6 (4.3-11.1) K/mcL Hgb 11.6 (11.5-15.4) g/dL Hct 35.9 (35.3-44.9) % Plt Count 55 L (140-400) K/mcL Neutrophils # 4.6 (1.6-8.9) K/mcL BMP 02/07/18 Range/Units 21:20 Sodium 137 (136-145) mEq/L Potassium 4.1 (3.5-5.1) mEq/L Chloride 104 (98-107) mEq/L Carbon Dioxide 17 L (23-29) mEq/L BUN 25 H (8-23) mg/dL Creatinine 8.69 H (0.60-1.20) mg/dL Glucose 84 (70-105) mg/dL Calcium 7.5 L (8.6-10.3) mg/dL Cardiac Enzymes 02/07/18 Range/Units 21:20 Troponin I < 0.03 (< 0.04) ng/mL Result diagrams: 02/07/18 21:20 02/07/18 21:20 Lab Results 02/07/18 02/07/18 Range/Units 21:20 21:20 WBC 6.6 (4.3-11.1) K/mcL RBC 3.62 L (3.82-4.97) M/mcL Hgb 11.6 (11.5-15.4) g/dL Hct 35.9 (35.3-44.9) % MCV 99.2 (83.0-100.0) fL MCH 32.0 (28.0-33.3) pg MCHC 32.3 (31.6-35.5) g/dL RDW 21.7 H (11.5-14.5) % Plt Count 55 L (140-400) K/mcL MPV 11.5 (9.4-12.4) fL Immature Gran % 1.1 (0-4) % Seg Neutrophils % 69.6 % Lymphocytes % 24.5 % Monocytes % 1.1 % Eosinophils % 3.4 % Basophils % 0.3 % Neutrophils # 4.6 (1.6-8.9) K/mcL Lymphocytes # 1.6 (0.6-4.6) K/mcL Monocytes # 0.1 (0.0-1.3) K/mcL Eosinophils # 0.2 (0.0-0.6) K/mcL Basophils # 0.0 (0.0-0.2) K/mcL Nucleated RBCs/100 WBC 0.3 H (0) /100 WBC Immature Plt Fraction 3.7 (1.1-6.1) % Sodium 137 (136-145) mEq/L Potassium 4.1 (3.5-5.1) mEq/L Chloride 104 (98-107) mEq/L Carbon Dioxide 17 L (23-29) mEq/L BUN 25 H (8-23) mg/dL Creatinine 8.69 H (0.60-1.20) mg/dL Est GFR ( Amer) 5 L (> 60) Est GFR (Non-Af Amer) 4 L (> 60) BUN/Creatinine Ratio 3 L (6-26) Glucose 84 (70-105) mg/dL Calculated Osmolality 288 (280-300) Calcium 7.5 L (8.6-10.3) mg/dL Troponin I < 0.03 (< 0.04) ng/mL - Radiology Data Radiology results reviewed: Yes I reviewed the patient's radiology results. Chest X-Ray 02/07/18 21:04 IMPRESSION: 1. Cardiomegaly. 2. Calcific atherosclerosis aorta. 3. Bilateral perihilar peribronchial cuffing is typical of bronchitis or reactive airways disease. 4. Chronic appearing coarse interstitial densities predominate parahilar regions and lung bases, typical of sequela from smoking or other previous infectious/inflammatory process. D/ / Adán Acosta / Adán Acosta Interpreting Provider: Adán Acosta - EKG Data EKG #1 EKG attestation: Yes I reviewed and interpreted this EKG. EKG results narrative: EKG taken 02/07/2018 at 2109 hrs. shows sinus rhythm at a rate of 80 beats minute no acute ST depressions or elevations in any leads, no QRS widening or QT prolongation. No change from previous EKG taken 01/09/2018
[2018-02-07 21:34] LABS: Nucleated Red Blood Cells 0.3 /100 WBC (0); Red Blood Count 3.62 M/mcL (3.82-4.97)
[2018-02-07 21:35] LABS: Basophils % 0.3 %; Eosinophils # 0.2 K/mcL (0.0-0.6); Eosinophils % 3.4 %; Hematocrit 35.9 % (35.3-44.9); Hemoglobin 11.6 g/dL (11.5-15.4); Immature Granulocytes % 1.1 % (0-4); Immature Platelets 3.7 % (1.1-6.1); Lymphocytes # 1.6 K/mcL (0.6-4.6); Lymphocytes % 24.5 %; Mean Corpuscular HGB Conc 32.3 g/dL (31.6-35.5); Mean Corpuscular Volume 99.2 fL (83.0-100.0); Mean Platelet Volume 11.5 fL (9.4-12.4); Monocytes # 0.1 K/mcL (0.0-1.3); Monocytes % 1.1 %; Neutrophils # 4.6 K/mcL (1.6-8.9); Red Cell Distribution Width 21.7 % (11.5-14.5); Segmented Neutrophils % 69.6 %
[2018-02-07 21:37] LABS: Platelet Count 55 K/mcL (140-400)
[2018-02-07 21:58] LABS: BUN/Creatinine Ratio 3 (6-26); Blood Urea Nitrogen 25 mg/dL (8-23); Calcium 7.5 mg/dL (8.6-10.3); Carbon Dioxide 17 mEq/L (23-29); Chloride 104 mEq/L (98-107); Glucose 84 mg/dL (70-105); Osmolality,Calculated 288 (280-300); Potassium 4.1 mEq/L (3.5-5.1); Sodium 137 mEq/L (136-145); Troponin I < 0.03 ng/mL (< 0.04); eGFR For African Americans 5 (> 60); eGFR For Non-African Americans 4 (> 60)
[2018-02-07] MEDS ORDERED: Albuterol 2.5 MG/3 ML NEBULIZER IH ONE (22:53)
[2018-02-07] MEDS ORDERED: Levofloxacin 750 MG/150 ML 750 MG/150 ML BAG IVPB ONE (22:56)
[2018-02-07] MEDS ORDERED: Naloxone 0.4 MG/ML INJ IVP PRN (23:32)
[2018-02-07] MEDS ORDERED: Nitroglycerin 0.4 MG TAB.SUBL SL PRN (23:40)
[2018-02-07] MEDS ORDERED: *HR* LORazepam 0.5 MG TABLET PO PRN (23:40)
[2018-02-07] MEDS ORDERED: Menthol 9.1 MG LOZENGE MM PRN (23:40)
[2018-02-07] MEDS ORDERED: Ipratropium/Albuterol Neb 3 ML IH PRN (23:40)
[2018-02-07] MEDS: Ipratropium/Albuterol Neb 3 ML IH SCH (23:51)
--- NOTE | 2018-02-08 00:12 | Internal Med History&Physical ---
Date of Encounter: 02/07/18 Time of Encounter: 23:35 Internal Medicine - H&P: HPI Chief complaint: Shortness of breath, Cough Admitted From: Emergency Dept Plans for Post Hospital Care: Home History of present illness: Ms. Parra is a 72 year old female with PMH of asthma, COPD, GERD, HTN, ESRD on HD M/W/F and hypothyroidism who presented to ER c/o progressively worsening SOB and DURANT since last 2 days. She does have cough with greenish expectoration. She also c/o chills and tremors. She denied any sick contacts at home. She just got d/c from [facility] 2 days ago. She did go for HD on this Friday. She denied any CP. Quit smoking 4 months ago. Past Med Surg Social Fam HX - Past Medical History Medical history: asthma, atrial fibrillation, COPD, GERD, hypertension, renal disease, thyroid disease, other Psychiatric history: no psych history - Past Surgical History Surgical History: appendectomy, cholecystectomy, colostomy, herniorrhaphy, hysterectomy, other - Social History Smoking Status: Current every day smoker Smokeless Tobacco Status: No Alcohol use: none Drug use: none - Family History Mother Adopted: No Living Status: Hx Family Cardiac Disorders: Yes ([place]/ Stroke) Hx Family Respiratory Disorders: No Hx Family Cancer: No Hx Family GI Disorders: No Hx Family Endocrine Disorder: No Hx Family Neuromuscular Disorders: No Hx Family Neurologic Disorders: No Hx Family HEENT Disorders: No Hx Family Autoimmune Disorders: No Father Adopted: No Living Status: Hx Family Cardiac Disorders: Yes (MT) Hx Family Respiratory Disorders: No Hx Family Cancer: No Hx Family GI Disorders: No Hx Family Endocrine Disorder: No Hx Family Neuromuscular Disorders: No Hx Family Neurologic Disorders: No Hx Family HEENT Disorders: No Hx Family Autoimmune Disorders: No Brother Living Status: Still Living Hx Family Cardiac Disorders: Yes Hx Family Respiratory Disorders: No Hx Family Endocrine Disorder: Yes Internal Medicine - H&P: Meds Cholecalciferol (Vitamin D3) [Vitamin D3] 5,000 unit PO DAILY #0 09/19/15 [ History] Ranitidine HCl [Zantac] 150 mg PO HS 09/19/15 [History] Cyanocobalamin (B-12) [Vitamin B12] 1,000 mcg IM QMONTH 02/21/17 [History] Levothyroxine Sodium [Synthroid] 300 mcg PO DAILY 02/21/17 [History] Lidocaine/Prilocaine CREAM [Emla] 1 appl TP AD PRN 06/30/17 [History] Renal Vitamin [Renal Caps Softgel] 1 mg PO DAILY 06/30/17 [History] Acetaminophen [Tylenol] 650 mg PO Q6HR PRN #20 tab 07/10/17 [Rx] Menthol [[place]] 3.2 mg MM Q4H PRN 07/16/17 [History] GuaiFENesin ER [Mucinex] 600 mg PO BID 5 Days #10 tbbp.12hr 09/14/17 [Rx] Calcium Acetate [Phos-LO] 667 mg PO TIDWM 10/17/17 [History] Benzonatate [Tessalon] 100 mg PO TID PRN #90 capsule 10/24/17 [Rx] Calcitriol [Rocaltrol] 0.25 mcg PO DAILY capsule 10/24/17 [Rx] Ferrous Sulfate 325 mg PO DAILY 11/14/17 [History] Darbepoetin [Aranesp] 60 mcg SQ Th syringe 12/15/17 [Rx] Diltiazem [Cardizem] 30 mg PO Q6HR tablet 12/15/17 [Rx] Fluticasone Propionate Nasal [Flonase] 50 mcg NS DAILY bottle 12/15/17 [Rx] Gabapentin [Neurontin] 100 mg PO TID #30 capsule 12/15/17 [Rx] Ipratropium/Albuterol Neb [Duoneb] 3 ml IH [id number] PRN inhsol 12/15/17 [Rx] LORazepam [Ativan] 0.5 mg PO BID PRN 10 Days #10 tablet 12/15/17 [Rx] Nitroglycerin 0.4 mg SL Q5MIN PRN tab.subl 12/15/17 [Rx] 3 Allergy/AdvReac Type Severity Reaction Status Date / Time codeine AdvReac Severe Vomiting Verified 01/13/18 07:37 naproxen [From Naprosyn] AdvReac Severe Vomiting Verified 01/13/18 07:37 All Systems PM: A 10-system review of systems was performed and is negative for pertinent findings except as documented above in the HPI. Review of systems: All the systems are reviewed everything is benign except the systems and symptoms I mentioned in the history of present illness - Constitutional Vitals: Temp Pulse Resp BP Pulse Ox 99.6 F 87 18 108/50 100 02/07/18 20:57 02/07/18 23:25 02/07/18 23:25 02/07/18 23:25 02/07/18 23:25 General appearance: Present: mild distress, A&O X 3, answers questions appropriately Exam: Looks weak and lethargic - Head Head exam: Present: atraumatic, normal inspection - Neck Neck exam general surgery: Present: supple - Respiratory Respiratory exam: Present: decreased breath sounds, respiratory distress (mild) , rhonchi (++), wheezes (moderate). Absent: rales - Cardiovascular Cardiovascular exam: Present: RRR, +S1, +S2. Absent: tachycardia - GI/Abdominal GI/Abdominal exam: Present: normal bowel sounds, soft. Absent: rebound, rigid, tenderness - Extremities Exam Extremities exam: Absent: calf tenderness, pedal edema, tenderness - Back Exam Back exam: Absent: CVA tenderness (L), CVA tenderness (R) - Neurological Exam Neurological exam: Present: alert, oriented X3, no focal deficits - Psychiatric Psychiatric exam: Present: normal affect, normal mood - Skin Skin exam: Absent: rash Internal Med - H&P Results - Labs CBC & Chem 7: 02/07/18 21:20 02/07/18 21:20 - Assessment and plan (1) Acute respiratory distress Current Visit: No Status: Acute Assessment and plan: Admit the pt into Tele reviewed CXR showed cortes bronchial cuffing and thickening Will start her on empirical abx Levaquin Q48hr after HD Duoneb + IV steroids I will get sputum culture, step pneumonia, Legionella and respiratory viral panel talked to the patient's daughter at bed side and explained to her about current care (2) COPD exacerbation Current Visit: Yes Status: Acute Assessment and plan: Started her on IV steroids oxygen as needed continue scheduled Duoneb for now (3) Bronchitis Current Visit: Yes Status: Acute Assessment and plan: Acute purulent bronchitis mostly bacterial started her on empirical antibiotic Levaquin (4) ESRD (end stage renal disease) on dialysis Current Visit: No Status: Chronic Assessment and plan: There is no need of emergency hemodialysis now We will consult healthcare technician in the morning for hemodialysis (5) HTN (hypertension) Current Visit: Yes Status: Acute Assessment and plan: Stable blood pressure with home medications resumed all her home medications Qualifiers: Hypertension type: essential hypertension Qualified Code(s): I10 - Essential (primary) hypertension (6) Former smoker Current Visit: Yes Status: Chronic - Time Spent With Patient Total time spent is greater than 50% in coordination of care (as documented) at patient's floor/unit and/or counseling patient:
[2018-02-08] MEDS: *HR* HYDROcodone/Acet 5/325 mg TABLET PO PRN ×3 (01:08→15:09)
[2018-02-08 02:19] LABS: Adenovirus Not Detected (Not Detect); Bordetella Pertussis Not Detected (Not Detect); Chlamydophila pneumoniae Not Detected (Not Detect); Coronavirus 229E Not Detected (Not Detect); Coronavirus HKU1 Not Detected (Not Detect); Coronavirus NL63 Not Detected (Not Detect); Coronavirus OC43 Not Detected (Not Detect); Human Metapneumovirus ***DETECTED*** (Not Detect); Human Rhinovirus/Enterovirus Not Detected (Not Detect); Influenza A Subtype 2009 H1 Not Detected (Not Detect); Influenza A Untypeable Not Detected (Not Detect); Influenza B Not Detected (Not Detect); Mycoplasma pneumoniae Not Detected (Not Detect); Parainfluenza Virus 1 Not Detected (Not Detect); Parainfluenza Virus 2 Not Detected (Not Detect); Parainfluenza Virus 3 Not Detected (Not Detect); Parainfluenza Virus 4 Not Detected (Not Detect); Respiratory Syncytial Virus Not Detected (Not Detect)
[2018-02-08] MEDS: Ipratropium/Albuterol Neb 3 ML IH SCH ×6 (04:09→23:22)
[2018-02-08] MEDS ORDERED: MethylPREDNISolone 40 MG/ML VIAL IVP SCH (06:00)
[2018-02-08 06:54] LABS: Basophils % 0.2 %; Hemoglobin 10.2 g/dL (11.5-15.4); Monocytes % 0.6 %; Red Cell Distribution Width 21.4 % (11.5-14.5)
[2018-02-08 06:56] LABS: Hematocrit 31.9 % (35.3-44.9); Immature Granulocytes % 2.3 % (0-4); Immature Platelets 3.2 % (1.1-6.1); Lymphocytes # 0.4 K/mcL (0.6-4.6); Lymphocytes % 8.2 %; Nucleated Red Blood Cells 0.6 /100 WBC (0); Red Blood Count 3.19 M/mcL (3.82-4.97); Segmented Neutrophils % 88.7 %
[2018-02-08 07:02] LABS: Neutrophils # 4.4 K/mcL (1.6-8.9); Platelet Count 47 K/mcL (140-400)
[2018-02-08 07:10] LABS: Calcium 7.2 mg/dL (8.6-10.3)
[2018-02-08] MEDS: Cholecalciferol (D-3) 1,000 UNIT TABLET PO SCH (07:44)
[2018-02-08] MEDS: Gabapentin 100 MG CAPSULE PO SCH ×3 (07:44→20:37)
[2018-02-08] MEDS: Renal Vitamin 1 MG CAPSULE PO SCH (07:44)
[2018-02-08 08:05] LABS: Platelet Estimate Decreased (Normal)
[2018-02-08] MEDS: Fluticasone Propionate Nasal 50 MCG/SPRAY BOTTLE NS SCH (09:40)
--- NOTE | 2018-02-08 10:39 | Nephrology Consult Note ---
Date of Encounter: 02/08/18 Time of Encounter: 10:36 Assessment and Plan (1) ESRD (end stage renal disease) on dialysis Current Visit: Yes Status: Chronic HD MWF. No acute need for dialysis today. Plan for dialysis on Friday. Adjust medications as needed for renal function. (2) HTN (hypertension) Current Visit: Yes Status: Chronic Blood pressure controlled. Qualifiers: Hypertension type: essential hypertension Qualified Code(s): I10 - Essential (primary) hypertension (3) Frail elderly Current Visit: No Status: Acute (4) Dyspnea Current Visit: Yes Status: Acute defer to primary care team. HD and UF as needed. Qualifiers: Qualified Code(s): R06.00 - Dyspnea, unspecified History of Present Illness - Reason for Consult Consult date: 02/08/18 end stage renal disease - Chief Complaint ESRD - History of Present Illness Patient well known to the renal consult service. Patient with ESRD on dialysis MWF who presents with dyspnea one day after being discharged from the SNF. When I walk to the door she is on the phone comfortably talking to someone and when she sees me she politely gets off the phone. When I discuss her problems she is complaining of how bad she feels and how she thinks she is drowning. She states she has horrible chest pain and abdominal pain and she just "feels terrible". Once I complete my exam and an on the way out the door she dials another person and starts having another conversation. Past Med Surg Social Fam HX - Past Medical History Medical history: asthma, atrial fibrillation, COPD, GERD, hypertension, renal disease, thyroid disease, other Psychiatric history: no psych history - Past Surgical History Surgical History: appendectomy, cholecystectomy, colostomy, herniorrhaphy, hysterectomy, other - Social History Smoking Status: Current every day smoker Smokeless Tobacco Status: No Alcohol use: none Drug use: none - Family History Mother Adopted: No Living Status: Hx Family Cardiac Disorders: Yes ([place]/ Stroke) Hx Family Respiratory Disorders: No Hx Family Cancer: No Hx Family GI Disorders: No Hx Family Endocrine Disorder: No Hx Family Neuromuscular Disorders: No Hx Family Neurologic Disorders: No Hx Family HEENT Disorders: No Hx Family Autoimmune Disorders: No Father Adopted: No Living Status: Hx Family Cardiac Disorders: Yes (ND) Hx Family Respiratory Disorders: No Hx Family Cancer: No Hx Family GI Disorders: No Hx Family Endocrine Disorder: No Hx Family Neuromuscular Disorders: No Hx Family Neurologic Disorders: No Hx Family HEENT Disorders: No Hx Family Autoimmune Disorders: No Brother Living Status: Still Living Hx Family Cardiac Disorders: Yes Hx Family Respiratory Disorders: No Hx Family Endocrine Disorder: Yes Medications and Allergies Cholecalciferol (Vitamin D3) [Vitamin D3] 5,000 unit PO DAILY #0 09/19/15 [ History] Ranitidine HCl [Zantac] 150 mg PO HS 09/19/15 [History] Cyanocobalamin (B-12) [Vitamin B12] 1,000 mcg IM QMONTH 02/21/17 [History] Levothyroxine Sodium [Synthroid] 300 mcg PO DAILY 02/21/17 [History] Lidocaine/Prilocaine CREAM [Emla] 1 appl TP AD PRN 06/30/17 [History] Renal Vitamin [Renal Caps Softgel] 1 mg PO DAILY 06/30/17 [History] Acetaminophen [Tylenol] 650 mg PO Q6HR PRN #20 tab 07/10/17 [Rx] Menthol [[place]] 3.2 mg MM Q4H PRN 07/16/17 [History] GuaiFENesin ER [Mucinex] 600 mg PO BID 5 Days #10 tbbp.12hr 09/14/17 [Rx] Calcium Acetate [Phos-LO] 667 mg PO TIDWM 10/17/17 [History] Benzonatate [Tessalon] 100 mg PO TID PRN #90 capsule 10/24/17 [Rx] Calcitriol [Rocaltrol] 0.25 mcg PO DAILY capsule 10/24/17 [Rx] Ferrous Sulfate 325 mg PO DAILY 11/14/17 [History] Darbepoetin [Aranesp] 60 mcg SQ Th syringe 12/15/17 [Rx] Diltiazem [Cardizem] 30 mg PO Q6HR tablet 12/15/17 [Rx] Fluticasone Propionate Nasal [Flonase] 50 mcg NS DAILY bottle 12/15/17 [Rx] Gabapentin [Neurontin] 100 mg PO TID #30 capsule 12/15/17 [Rx] Ipratropium/Albuterol Neb [Duoneb] 3 ml IH [id number] PRN inhsol 12/15/17 [Rx] LORazepam [Ativan] 0.5 mg PO BID PRN 10 Days #10 tablet 12/15/17 [Rx] Nitroglycerin 0.4 mg SL Q5MIN PRN tab.subl 12/15/17 [Rx] traZODone [TraZODone] 25 mg PO HS 02/08/18 [History] 3 Allergy/AdvReac Type Severity Reaction Status Date / Time codeine AdvReac Severe Vomiting Verified 01/13/18 07:37 naproxen [From Naprosyn] AdvReac Severe Vomiting Verified 01/13/18 07:37 Review of Systems All Systems: reviewed and no additional remarkable complaints except as stated ( as documented in the hpi) Exam - Vital Signs Vital signs: Initial Vital Signs Temp Pulse Resp BP Pulse Ox 99.6 F 88 18 118/56 98 02/07/18 20:57 02/07/18 20:57 02/07/18 20:57 02/07/18 20:57 02/07/18 20:57 Vital Signs - Last 8 Hours Temp Pulse Resp BP Pulse Ox 02/08/18 08:02 15 95 02/08/18 07:00 97.6 F 76 15 102/58 95 - General Appearance General appearance: well-developed, chronically ill, frail EENT: ATNC Neck: supple Respiratory: course breath sounds, rhonchi Cardiology: no edema, regular rate Gastrointestinal: no tenderness Integumentary: warm and dry Neurologic: alert and oriented x3 Musculoskeletal: no cyanosis Psychiatric: mood/affect appropriate Results - Lab Results 02/08/18 05:40 02/08/18 05:40 Most recent lab results Calcium 7.2 mg/dL (8.6-10.3) L 02/08/18 05:40 Consult Discharge Plan - Plan Referrals: Andrew Edmonds MD [Non-Partnered Physician] -
[2018-02-08] MEDS: Calcium Acetate 667 MG CAPSULE PO SCH ×3 (11:57→16:30)
[2018-02-08] MEDS: cefTRIAXone 1,000 MG in Water for inj. (sterile) 20 ML 10 ML IVP SCH (11:57)
[2018-02-08] MEDS: predniSONE 20 MG TABLET PO SCH (11:57)
[2018-02-08] MEDS: Azithromycin 500 MG in D5% in Water 250 ML IVPB SCH (12:02)
--- NOTE | 2018-02-08 13:52 | Internal Med Progress Note ---
Date of Encounter: 02/08/18 Time of Encounter: 10:40 - Assessment and plan (1) ESRD (end stage renal disease) on dialysis Current Visit: Yes Status: Chronic Assessment and plan: Renal eval for routine HD No indication for urgent HD (2) Acute respiratory distress Current Visit: Yes Status: Acute Assessment and plan: Secondary to Strep Pneumo PNA Associated metapneumonvirus infection CXR showed cortes bronchial cuffing and thickening Cef/Azithro-Day 1 Follow sputum culture Continue duonebs and steroids (3) Bronchitis Current Visit: Yes Status: Acute Assessment and plan: As above Follow sputum culture (4) COPD exacerbation Current Visit: Yes Status: Acute Assessment and plan: as above (5) Former smoker Current Visit: Yes Status: Chronic (6) HTN (hypertension) Current Visit: Yes Status: Chronic Assessment and plan: continue home meds Qualifiers: Hypertension type: essential hypertension Qualified Code(s): I10 - Essential (primary) hypertension (7) Ileostomy in place Current Visit: Yes Status: Chronic (8) Presence of urostomy Current Visit: Yes Status: Chronic (9) Tobacco abuse Current Visit: Yes Status: Chronic - Time Spent With Patient Total time spent is greater than 50% in coordination of care (as documented) at patient's floor/unit and/or counseling patient: - Subjective Interval history: Seen and examined at the bedside She was on the phone looking very comfortable during her conversation without distress As soon as I begin to wear the isolation gown she drops the phone and begins to groan and cough She does have what seems to be purulent sputum Her strep Ag in urine is positive. CXR showed bronchitis and sequela from smoking, or other previous infectious/inflammatory process She complained of facial puffiness and leg swelling - Constitutional Vitals: Temp Pulse Resp BP Pulse Ox 98.0 F 75 16 127/55 94 02/08/18 11:59 02/08/18 11:59 02/08/18 11:59 02/08/18 11:59 02/08/18 11:59 General appearance: Present: A&O X 3, no acute distress, answers questions appropriately - Head Head exam: Present: atraumatic, normocephalic - Eye Eye exam: Present: PERRL, conjuntiva pink, sclera anicteric Pupils: Present: PERRL - Neck Neck exam general surgery: Present: supple, trachea midline. Absent: lymphadenopathy - Respiratory Respiratory exam: Present: rales, rhonchi, wheezes - Cardiovascular Cardiovascular exam: Present: RRR, +S1, +S2. Absent: diastolic murmur, gallop, rubs, systolic murmur - GI/Abdominal GI/Abdominal exam: Present: normal bowel sounds, soft, no peritoneal signs. Absent: distended, tenderness Additional comments: Urostomy and Ostomy bag draining appropriately - Extremities Exam Extremities exam: Present: pedal edema (1+ edema bilaterally), warm, radial pulses palpable and symmetrical. Absent: calf tenderness, cyanotic - Neurological Exam Neurological exam: Present: alert, CN II-XII intact, oriented X3, no focal deficits. Absent: pronater drift, facial droop, speech deficit - Skin Skin exam: Present: dry, intact Internal Medicine: Result - Labs CBC & Chem 7: 02/08/18 05:40 02/08/18 05:40 Labs: Short CBC 02/08/18 Range/Units 05:40 WBC 4.9 (4.3-11.1) K/mcL Hgb 10.2 L (11.5-15.4) g/dL Hct 31.9 L (35.3-44.9) % Plt Count 47 L (140-400) K/mcL Neutrophils # 4.4 (1.6-8.9) K/mcL BMP 02/08/18 05:40 Sodium 139 Potassium 4.0 Chloride 106 Carbon Dioxide 14 L BUN 27 H Creatinine 8.97 H Glucose 135 H Calcium 7.2 L Consult Discharge Plan - Plan Referrals: Andrew Edmonds MD [Non-Partnered Physician] -
[2018-02-08] MEDS: Ondansetron 4 MG/2 ML VIAL IVP PRN (14:46)
[2018-02-08] MEDS ORDERED: Furosemide 40 MG/4 ML VIAL IVP ONE (15:22)
[2018-02-08] MEDS: Famotidine 20 MG TABLET PO SCH (20:37)
[2018-02-09] MEDS: *HR* HYDROcodone/Acet 5/325 mg TABLET PO PRN ×2 (04:25→14:17)
[2018-02-09] MEDS: Ipratropium/Albuterol Neb 3 ML IH SCH ×6 (04:46→23:12)
[2018-02-09 05:55] LABS: Basophils % 0.2 %; Hemoglobin 9.4 g/dL (11.5-15.4); Mean Corpuscular Volume 98.3 fL (83.0-100.0)
[2018-02-09 05:56] LABS: Hematocrit 28.7 % (35.3-44.9); Immature Granulocytes % 2.1 % (0-4); Immature Platelets 5.5 % (1.1-6.1); Lymphocytes # 1.1 K/mcL (0.6-4.6); Lymphocytes % 18.6 %; Mean Corpuscular HGB Conc 32.8 g/dL (31.6-35.5); Mean Corpuscular Hemoglobin 32.2 pg (28.0-33.3); Mean Platelet Volume 12.8 fL (9.4-12.4); Monocytes # 0.1 K/mcL (0.0-1.3); Monocytes % 1.9 %; Neutrophils # 4.5 K/mcL (1.6-8.9); Nucleated Red Blood Cells 0.7 /100 WBC (0); Red Blood Count 2.92 M/mcL (3.82-4.97); Red Cell Distribution Width 21.3 % (11.5-14.5); Segmented Neutrophils % 77.2 %
[2018-02-09 06:06] LABS: Platelet Count 37 K/mcL (140-400)
[2018-02-09 06:46] LABS: Potassium 4.6 mEq/L (3.5-5.1)
[2018-02-09] MEDS ORDERED: 0.9 % Sodium Chloride 2,000 ML ONE (07:41)
[2018-02-09] MEDS ORDERED: 0.9 % Sodium Chloride 250 ML IVC PRN (08:14)
[2018-02-09] MEDS ORDERED: 0.9 % Sodium Chloride 1,000 ML PRIME SCH (08:15)
[2018-02-09] MEDS ORDERED: Cyanocobalamin (B-12) 1,000 MCG/ML VIAL IM SCH (09:00)
--- NOTE | 2018-02-09 11:42 | Nephrology Progress Note ---
Date of Encounter: 02/09/18 Time of Encounter: 11:40 - Assessment and Plan (1) ESRD (end stage renal disease) on dialysis Current Visit: Yes Status: Chronic Patient seen on dialysis. HD MWF. Plan for UF on Friday. Renal dose medications Renal diet. (2) HTN (hypertension) Current Visit: Yes Status: Chronic Qualifiers: Hypertension type: essential hypertension Qualified Code(s): I10 - Essential (primary) hypertension (3) Frail elderly Current Visit: No Status: Acute (4) Dyspnea Current Visit: Yes Status: Acute COPD exacerbation and possibly excess fluid. Plan for UF on friday. Continue treatment for COPD. Qualifiers: Qualified Code(s): R06.00 - Dyspnea, unspecified Subjective Principal diagnosis: ESRD Interval history: Patient seen while on dialysis. She still feels dyspneic. Objective - Vital Signs Vital signs: Vital Signs Temp Pulse Resp BP Pulse Ox 02/09/18 10:30 116/60 02/09/18 10:15 106/59 02/09/18 10:00 104/55 02/09/18 09:45 101/53 02/09/18 09:30 106/59 02/09/18 09:15 109/59 02/09/18 09:00 97.5 F L 15 111/61 02/09/18 08:15 97.5 F L 68 16 102/59 95 02/09/18 07:23 18 102/59 95 02/09/18 04:54 16 94/44 96 02/09/18 03:23 98.2 F 68 16 94/44 96 02/08/18 23:22 16 91 02/08/18 22:30 98.0 F 75 16 94/49 95 02/08/18 21:14 18 99 02/08/18 20:30 98.0 F 71 18 107/54 96 02/08/18 16:22 99.4 F 79 16 90/45 96 02/08/18 15:13 16 96 02/08/18 11:59 98.0 F 75 16 127/55 94 Intake and Output 02/08/18 02/09/18 02/09/18 23:59 07:59 15:59 Intake Total 360 / 360 720 / 720 Output Total 1550 / 1550 100 / 100 50 / 50 Balance -1190 / -1190 -100 / -100 670 / 670 Intake: Oral 360 / 360 120 / 120 Intake, Rinseback and Flushes 600 / 600 Output: Stool 1550 / 1550 50 / 50 50 / 50 Urostomy 0 / 0 50 / 50 0 / 0 Other: Meal Dinner Breakfast Percent of Meal Consumed 90% 100% Stool Size Small Small Stool Consistency liquid loose Stool Color Brown Brown Weight 67.9 kg Hemodialysis Net Fluid Removed 1804 (mL) Patient Weight 02/09/18 23:59 Weight 67.9 kg - General Appearance General appearance: Present: well-developed, chronically ill, frail EENT: Present: ATNC Neck: Present: supple Neurologic: Present: alert and oriented x3 Musculoskeletal: Present: no cyanosis Psychiatric: Present: mood/affect appropriate - Lab 02/09/18 05:34 02/09/18 05:34 Most recent lab results Calcium 7.0 mg/dL (8.6-10.3) L 02/09/18 05:34 Consult Discharge Plan - Plan Referrals: Andrew Edmonds MD [Non-Partnered Physician] -
--- NOTE | 2018-02-09 12:13 | Internal Med Progress Note ---
Date of Encounter: 02/09/18 Time of Encounter: 12:11 - Assessment and plan (1) ESRD (end stage renal disease) on dialysis Current Visit: Yes Status: Chronic Assessment and plan: Renal eval for routine HD No indication for urgent HD (2) Acute respiratory distress Current Visit: Yes Status: Acute Assessment and plan: Secondary to Strep Pneumo PNA Associated metapneumonvirus infection CXR showed cortes bronchial cuffing and thickening Cef/Azithro-Day 2 Follow sputum culture Continue duonebs and steroids (3) Bronchitis Current Visit: Yes Status: Acute Assessment and plan: As above Follow sputum culture (4) COPD exacerbation Current Visit: Yes Status: Acute Assessment and plan: as above (5) HTN (hypertension) Current Visit: Yes Status: Chronic Assessment and plan: continue home meds Qualifiers: Hypertension type: essential hypertension Qualified Code(s): I10 - Essential (primary) hypertension (6) Ileostomy in place Current Visit: Yes Status: Chronic Assessment and plan: chronic, stable (7) Presence of urostomy Current Visit: Yes Status: Chronic Assessment and plan: chronic, stable (8) Tobacco abuse Current Visit: Yes Status: Chronic Assessment and plan: chronic, stable - Time Spent With Patient Total time spent is greater than 50% in coordination of care (as documented) at patient's floor/unit and/or counseling patient: - Subjective Interval history: Seen and examined at the bedside in dialysis No new complains - Constitutional Vitals: Temp Pulse Resp BP Pulse Ox 97.5 F L 68 15 117/63 95 02/09/18 09:00 02/09/18 08:15 02/09/18 09:00 02/09/18 11:45 02/09/18 08:15 General appearance: Present: A&O X 3, no acute distress, answers questions appropriately - Head Head exam: Present: atraumatic, normocephalic - Eye Eye exam: Present: PERRL, conjuntiva pink, sclera anicteric Pupils: Present: PERRL - Neck Neck exam general surgery: Present: supple, trachea midline. Absent: lymphadenopathy - Respiratory Respiratory exam: Present: rhonchi, wheezes. Absent: rales, stridor, tachypnea - Cardiovascular Cardiovascular exam: Present: RRR, +S1, +S2. Absent: diastolic murmur, gallop, rubs, systolic murmur - GI/Abdominal GI/Abdominal exam: Present: normal bowel sounds, soft, no peritoneal signs. Absent: distended, tenderness Additional comments: ostomy/urostomy bags with stool/urine respectively abdomen is not tender, BS present - Extremities Exam Extremities exam: Present: warm, radial pulses palpable and symmetrical. Absent : calf tenderness, cyanotic, pedal edema - Neurological Exam Neurological exam: Present: alert, CN II-XII intact, oriented X3, no focal deficits. Absent: pronater drift, facial droop, speech deficit - Skin Skin exam: Present: dry, intact Internal Medicine: Result - Labs CBC & Chem 7: 02/09/18 05:34 02/09/18 05:34 Labs: Short CBC 02/09/18 Range/Units 05:34 WBC 5.8 (4.3-11.1) K/mcL Hgb 9.4 L (11.5-15.4) g/dL Hct 28.7 L (35.3-44.9) % Plt Count 37 L (140-400) K/mcL Neutrophils # 4.5 (1.6-8.9) K/mcL BMP 02/09/18 05:34 Sodium 136 Potassium 4.6 Chloride 105 Carbon Dioxide 12 L BUN 36 H Creatinine 10.41 H Glucose 110 H Calcium 7.0 L Consult Discharge Plan - Plan Referrals: Andrew Edmonds MD [Non-Partnered Physician] -
[2018-02-09] MEDS: Calcium Acetate 667 MG CAPSULE PO SCH ×3 (13:39→17:13)
[2018-02-09] MEDS: Gabapentin 100 MG CAPSULE PO SCH ×3 (13:40→21:22)
[2018-02-09] MEDS: Renal Vitamin 1 MG CAPSULE PO SCH (13:44)
[2018-02-09] MEDS: Cholecalciferol (D-3) 1,000 UNIT TABLET PO SCH (13:45)
[2018-02-09] MEDS: predniSONE 20 MG TABLET PO SCH (14:16)
[2018-02-09] MEDS: Azithromycin 500 MG in D5% in Water 250 ML IVPB SCH (14:18)
[2018-02-09] MEDS: cefTRIAXone 1,000 MG in Water for inj. (sterile) 20 ML 10 ML IVP SCH (14:19)
[2018-02-09] MEDS: Ondansetron 4 MG/2 ML VIAL IVP PRN (14:19)
[2018-02-09] MEDS: Fluticasone Propionate Nasal 50 MCG/SPRAY BOTTLE NS SCH (14:42)
[2018-02-09] MEDS: Famotidine 20 MG TABLET PO SCH (21:22)
[2018-02-10] MEDS: Ipratropium/Albuterol Neb 3 ML IH SCH ×5 (03:07→20:32)
[2018-02-10] MEDS ORDERED: 0.9 % Sodium Chloride 250 ML IVC PRN (07:25)
[2018-02-10] MEDS ORDERED: 0.9 % Sodium Chloride 1,000 ML PRIME SCH (07:30)
[2018-02-10] MEDS: *HR* HYDROcodone/Acet 5/325 mg TABLET PO PRN ×2 (08:07→15:57)
[2018-02-10 08:29] LABS: Potassium 4.5 mEq/L (3.5-5.1)
[2018-02-10 08:38] LABS: Mean Corpuscular Volume 99.7 fL (83.0-100.0)
[2018-02-10 08:45] LABS: Hematocrit 29.7 % (35.3-44.9); Hemoglobin 9.5 g/dL (11.5-15.4); Immature Platelets 5.8 % (1.1-6.1); Mean Corpuscular Hemoglobin 31.9 pg (28.0-33.3); Mean Platelet Volume 13.4 fL (9.4-12.4); Red Blood Count 2.98 M/mcL (3.82-4.97); Red Cell Distribution Width 21.8 % (11.5-14.5)
[2018-02-10] MEDS ORDERED: 0.9 % Sodium Chloride 1,000 ML ONE (09:16)
--- NOTE | 2018-02-10 09:47 | Nephrology Progress Note ---
Date of Encounter: 02/10/18 Time of Encounter: 09:45 - Assessment and Plan (1) ESRD (end stage renal disease) on dialysis Current Visit: Yes Status: Chronic UF today plan for HD tomorrow Avoid nephrotoxins if possible (2) Bronchitis Current Visit: Yes Status: Acute per primary team (3) Frail elderly Current Visit: No Status: Acute per primary team Adamantly wants to stay at home; states she will loose her SS check if she goes to a [facility] per mental health social worker notes. Subjective Principal diagnosis: ESRD Interval history: Patient seen and examined while in dialysis. States she doesn't feel well however dialysis nurse reports she has been sleeping. Objective - Vital Signs Vital signs: Vital Signs Temp Pulse Resp BP Pulse Ox 02/10/18 07:55 20 93 02/10/18 06:43 98.7 F 69 20 113/53 97 02/10/18 04:40 98.3 F 66 14 106/51 96 02/10/18 03:08 15 98 02/10/18 00:49 98.2 F 68 14 109/39 99 02/09/18 23:12 18 98 02/09/18 20:13 16 96 02/09/18 19:45 97.8 F 64 14 104/48 97 02/09/18 16:50 18 113/53 94 02/09/18 15:23 98.0 F 71 18 127/69 94 02/09/18 14:22 98.4 F 68 16 111/49 97 02/09/18 12:15 97.0 F L 15 112/56 02/09/18 12:00 101/58 02/09/18 11:45 117/63 02/09/18 11:30 105/48 02/09/18 11:15 101/54 02/09/18 11:00 105/54 02/09/18 10:45 103/62 02/09/18 10:30 116/60 02/09/18 10:15 106/59 02/09/18 10:00 104/55 Intake and Output 02/09/18 02/10/18 02/10/18 23:59 07:59 15:59 Output Total 200 / 200 0 / 0 Balance -200 / -200 0 / 0 Output: Urine 0 / 0 Stool 200 / 200 0 / 0 Urostomy 0 / 0 Other: Stool Consistency liquid Stool Color Brown - General Appearance General appearance: Present: cachectic, chronically ill, frail EENT: Present: ATNC, mucous membranes moist, hearing intact, vision intact Neck: Present: supple Respiratory: Present: course breath sounds, rhonchi Cardiology: Present: edema (facial), normal S1, normal S2 Dialysis Vascular Access: Arteriovenous Fistula Gastrointestinal: Present: no tenderness, no guarding Integumentary: Present: warm and dry Neurologic: Present: alert and oriented x3 Psychiatric: Present: mood/affect appropriate, cooperative - Lab 02/10/18 06:50 02/10/18 06:50 Most recent lab results Calcium 7.0 mg/dL (8.6-10.3) L 02/10/18 06:50 Consult Discharge Plan - Plan Referrals: Andrew Edmonds MD [Non-Partnered Physician] -
[2018-02-10] MEDS: Calcium Acetate 667 MG CAPSULE PO SCH ×3 (12:16→18:32)
[2018-02-10] MEDS: Gabapentin 100 MG CAPSULE PO SCH ×3 (12:17→21:33)
[2018-02-10] MEDS: Cholecalciferol (D-3) 1,000 UNIT TABLET PO SCH (12:17)
[2018-02-10] MEDS: predniSONE 20 MG TABLET PO SCH (12:17)
[2018-02-10] MEDS: cefTRIAXone 1,000 MG in Water for inj. (sterile) 20 ML 10 ML IVP SCH (12:19)
--- NOTE | 2018-02-10 13:45 | Internal Med Progress Note ---
<Osbaldo Kraft - Last Filed: 02/10/18 16:15> Date of Encounter: 02/10/18 Time of Encounter: 08:00 - Assessment and plan (1) Bronchitis Current Visit: Yes Status: Acute Assessment and plan: Antigen positive for Strep. pneumoniae & respiratory panel positive for human metapneumovirus. Continues to have significant wheezing despite duonebs. -- History of COPD and recent cessation of chronic smoking history -- Cont Zithromax (day 2) & Rocephin (day 2) -- On scheduled duonebs and PRN albuterol nebs -- Change from PO prednisone to IV Solu-medrol -- Cont O2 via NC -- BiPAP as needed; may require use at night -- will obtain qualification if needed (2) COPD exacerbation Current Visit: No Status: Acute Assessment and plan: as above (3) ESRD (end stage renal disease) on dialysis Current Visit: Yes Status: Chronic Assessment and plan: nephrology onboard, pt on MWF schedule with one added HD session today relieving 3600mL this AM; BPs stable. (4) HTN (hypertension) Current Visit: Yes Status: Chronic Assessment and plan: as above Qualifiers: Hypertension type: essential hypertension Qualified Code(s): I10 - Essential (primary) hypertension (5) Thrombocytopenia Current Visit: Yes Status: Chronic (6) Presence of urostomy Current Visit: Yes Status: Chronic (7) Ileostomy in place Current Visit: Yes Status: Chronic (8) DVT prophylaxis Current Visit: Yes Status: Acute - Time Spent With Patient Total time spent is greater than 50% in coordination of care (as documented) at patient's floor/unit and/or counseling patient: - Subjective Interval history: States feels achy all over which is normal for her between dialysis days. Subjectively short of breath, but does not appear to be having respiratory distress during encounter. HD pending today in addition to MWF schedule. VSS overnight and saturating high 90s at rest on 3L O2 via NC. - Constitutional Vitals: Temp Pulse Resp BP Pulse Ox 97.1 F L 69 18 102/41 93 02/10/18 12:15 02/10/18 06:43 02/10/18 12:15 02/10/18 12:15 02/10/18 07:55 General appearance: Present: A&O X 3, no acute distress, answers questions appropriately - Head Head exam: Present: atraumatic, normocephalic - Eye Eye exam: Present: PERRL, conjuntiva pink, sclera anicteric - Neck Neck exam general surgery: Present: supple, trachea midline - Respiratory Respiratory exam: Present: CTAB, wheezes. Absent: accessory muscle use, rales, respiratory distress, rhonchi - Cardiovascular Cardiovascular exam: Present: RRR, +S1, +S2. Absent: diastolic murmur, gallop, rubs, systolic murmur - GI/Abdominal GI/Abdominal exam: Present: normal bowel sounds, soft. Absent: distended, guarding, rigid, tenderness - Extremities Exam Extremities exam: Present: warm, radial pulses palpable and symmetrical. Absent : calf tenderness, cyanotic, pedal edema - Neurological Exam Neurological exam: Present: oriented X3, no focal deficits. Absent: facial droop, speech deficit - Skin Skin exam: Present: dry, intact, normal color. Absent: cyanosis, mottled, pallor, petechiae Internal Medicine: Result - Labs CBC & Chem 7: 02/10/18 06:50 02/10/18 06:50 Labs: Short CBC 02/10/18 Range/Units 06:50 WBC 4.5 (4.3-11.1) K/mcL Hgb 9.5 L (11.5-15.4) g/dL Hct 29.7 L (35.3-44.9) % Plt Count 35 L (140-400) K/mcL BMP 02/10/18 06:50 Sodium 140 Potassium 4.5 Chloride 105 Carbon Dioxide 23 BUN 26 H Creatinine 7.05 H Glucose 87 Calcium 7.0 L Consult Discharge Plan - Plan Referrals: Andrew Edmonds MD [Non-Partnered Physician] - <Trey Iyer H - Last Filed: 02/10/18 17:27> Date of Encounter: 02/10/18 - Assessment and plan (1) Presence of urostomy Current Visit: Yes Status: Chronic (2) Ileostomy in place Current Visit: Yes Status: Chronic (3) ESRD (end stage renal disease) on dialysis Current Visit: Yes Status: Chronic (4) Tobacco abuse Current Visit: Yes Status: Chronic (5) Acute respiratory distress Current Visit: Yes Status: Acute (6) Bronchitis Current Visit: Yes Status: Acute (7) COPD exacerbation Current Visit: Yes Status: Acute (8) HTN (hypertension) Current Visit: Yes Status: Chronic Qualifiers: Hypertension type: essential hypertension Qualified Code(s): I10 - Essential (primary) hypertension - Time Spent With Patient Total time spent is greater than 50% in coordination of care (as documented) at patient's floor/unit and/or counseling patient: - Constitutional Vitals: Temp Pulse Resp BP Pulse Ox 98.2 F 75 18 126/45 96 02/10/18 15:36 02/10/18 15:36 02/10/18 15:36 02/10/18 15:36 02/10/18 15:36 Internal Medicine: Result - Labs CBC & Chem 7: 02/10/18 06:50 02/10/18 06:50 Labs: Short CBC 02/10/18 Range/Units 06:50 WBC 4.5 (4.3-11.1) K/mcL Hgb 9.5 L (11.5-15.4) g/dL Hct 29.7 L (35.3-44.9) % Plt Count 35 L (140-400) K/mcL BMP 02/10/18 06:50 Sodium 140 Potassium 4.5 Chloride 105 Carbon Dioxide 23 BUN 26 H Creatinine 7.05 H Glucose 87 Calcium 7.0 L - Attending Attestation acute hypoxic resp failure 2ry to acute copd exacerbation due to strep pneumoniae pneumonia and metapneumovirus solumedrol I examined this patient and my medical decision-making was reviewed with the Resident Physician. I agree with the documented findings, disposition and treatment plan as described except to the extent set forth below.
[2018-02-10] MEDS ORDERED: Albuterol 2.5 MG/3 ML NEBULIZER IH PRN (14:36)
[2018-02-10] MEDS: MethylPREDNISolone 40 MG/ML VIAL IVP SCH (15:56)
[2018-02-10] MEDS: Azithromycin 500 MG in D5% in Water 250 ML IVPB SCH (15:57)
[2018-02-10] MEDS: Renal Vitamin 1 MG CAPSULE PO SCH (17:11)
[2018-02-10] MEDS: Fluticasone Propionate Nasal 50 MCG/SPRAY BOTTLE NS SCH (17:13)
[2018-02-10] MEDS: Famotidine 20 MG TABLET PO SCH (21:33)
[2018-02-11] MEDS: Ipratropium/Albuterol Neb 3 ML IH SCH ×7 (00:08→23:44)
[2018-02-11] MEDS: MethylPREDNISolone 40 MG/ML VIAL IVP SCH ×3 (00:21→16:32)
[2018-02-11] MEDS: *HR* HYDROcodone/Acet 5/325 mg TABLET PO PRN ×3 (00:22→16:32)
--- NOTE | 2018-02-11 00:29 | Electrocardiograph Report ---
[place] [address] Test Date: 2018-02-07 Pat Name: Vannessa Parra Department: 102 Room: 3A Gender: F Tube Inspector: Dmitry : 1945 Requested By: Adry See Order Number: [id number] Reading MD: Angelica Germain Measurements Intervals [place] Rate: 80 P: 66 CO: 157 QRS: 52 QRSD: 88 T: 50 QT: 353 QTc: 389 Interpretive Statements SINUS RHYTHM WITH SINUS ARRHYTHMIA NONSPECIFIC T-WAVE ABNORMALITY Electronically Signed On 02-11-2018 0:27:20 EDT by Angelica Germain
[2018-02-11 04:43] LABS: Mean Corpuscular Volume 100.4 fL (83.0-100.0)
[2018-02-11 04:44] LABS: Hematocrit 28.5 % (35.3-44.9); Immature Platelets 4.9 % (1.1-6.1); Mean Corpuscular HGB Conc 31.6 g/dL (31.6-35.5); Mean Corpuscular Hemoglobin 31.7 pg (28.0-33.3); Mean Platelet Volume 11.2 fL (9.4-12.4); Red Blood Count 2.84 M/mcL (3.82-4.97); Red Cell Distribution Width 21.6 % (11.5-14.5)
[2018-02-11 05:01] LABS: Calcium 6.7 mg/dL (8.6-10.3); Potassium 4.3 mEq/L (3.5-5.1)
[2018-02-11] MEDS ORDERED: 0.9 % Sodium Chloride 1,000 ML ONE (07:40)
[2018-02-11] MEDS ORDERED: 0.9 % Sodium Chloride 1,000 ML PRIME SCH (08:45)
[2018-02-11] MEDS: Renal Vitamin 1 MG CAPSULE PO SCH (09:22)
[2018-02-11] MEDS: Calcium Acetate 667 MG CAPSULE PO SCH ×3 (09:22→16:33)
[2018-02-11] MEDS: Fluticasone Propionate Nasal 50 MCG/SPRAY BOTTLE NS SCH (09:22)
[2018-02-11] MEDS: Cholecalciferol (D-3) 1,000 UNIT TABLET PO SCH (09:22)
[2018-02-11] MEDS: Gabapentin 100 MG CAPSULE PO SCH ×3 (09:22→20:04)
[2018-02-11] MEDS: Ondansetron 4 MG/2 ML VIAL IVP PRN (09:29)
[2018-02-11] MEDS: cefTRIAXone 1,000 MG in Water for inj. (sterile) 20 ML 10 ML IVP SCH ×3 (12:20→19:47)
[2018-02-11] MEDS: Acetaminophen 325 MG TABLET PO PRN ×2 (12:32→20:02)
--- NOTE | 2018-02-11 12:50 | Nephrology Progress Note ---
Date of Encounter: 02/11/18 Time of Encounter: 12:49 - Assessment and Plan (1) ESRD (end stage renal disease) on dialysis Current Visit: Yes Status: Chronic .HD MWF. Renal vitamins. Renal dose medications. Renal diet. Additional dialysis and ultrafiltration as needed. (2) HTN (hypertension) Current Visit: Yes Status: Chronic Qualifiers: Hypertension type: essential hypertension Qualified Code(s): I10 - Essential (primary) hypertension (3) Frail elderly Current Visit: No Status: Acute (4) Dyspnea Current Visit: Yes Status: Acute COPD exacerbation and possibly excess fluid. Plan for UF on friday. Continue treatment for COPD. Qualifiers: Qualified Code(s): R06.00 - Dyspnea, unspecified Subjective Principal diagnosis: ESRD Interval history: Patient seen . She has no new complaint. Objective - Vital Signs Vital signs: Vital Signs Temp Pulse Resp BP Pulse Ox 02/11/18 11:51 97.8 F 63 14 129/50 98 02/11/18 07:25 97.9 F 68 16 122/73 97 02/11/18 05:50 97.9 F 70 18 126/62 95 02/11/18 03:19 18 95 02/11/18 00:43 98.1 F 73 18 126/51 94 02/11/18 00:08 20 99 02/10/18 20:33 20 100 02/10/18 20:18 98.1 F 69 18 129/51 98 02/10/18 15:36 98.2 F 75 18 126/45 96 02/10/18 15:13 16 98 Intake and Output 02/10/18 02/11/18 02/11/18 23:59 07:59 15:59 Intake Total 0 / 0 760 / 760 250 / 250 Output Total 700 / 700 700 / 700 Balance -700 / -700 60 / 60 250 / 250 Intake: IV Fluids Rocephin 1,000 MG In Water for inj. (sterile) 10 ML @ 300 mls/ hr IVP DAILY [facility] Rx#:[id number] Oral 0 / 0 760 / 760 240 / 240 Output: Stool 700 / 700 650 / 650 Urostomy 0 / 0 50 / 50 Other: Meal Breakfast Percent of Meal Consumed 50% Stool Size Moderate Stool Consistency soft Stool Color Brown Yellow Weight 67.1 kg Patient Weight 02/11/18 23:59 Weight 67.1 kg - General Appearance General appearance: Present: well-developed, chronically ill, frail - Lab 02/11/18 04:00 02/11/18 04:00 Most recent lab results Calcium 6.7 mg/dL (8.6-10.3) L 02/11/18 04:00 Consult Discharge Plan - Plan Referrals: Andrew Edmonds MD [Non-Partnered Physician] -
--- NOTE | 2018-02-11 13:27 | Internal Med Progress Note ---
<Osbaldo Kraft - Last Filed: 02/11/18 13:30> Date of Encounter: 02/11/18 Time of Encounter: 08:00 - Assessment and plan (1) Acute respiratory distress Current Visit: Yes Status: Acute Assessment and plan: Secondary to Strep Pneumo PNA & associated metapneumonvirus infection. CXR showed cortes-bronchial cuffing and thickening. Pt still has wet cough, unable to produce sputum, and wheezes throughout. Also has required up to 6Lpm overnight (baseline is 3L via NC). -- History of COPD and recent cessation of chronic smoking history -- Cont Zithromax (day 3) & Rocephin (day 3); -- On scheduled duonebs and PRN albuterol nebs -- Cont IV Solu-medrol -- Cont O2 via NC -- Checking ABG and will do BiPAP qualification tonight if retaining CO2 (2) Presence of urostomy Current Visit: Yes Status: Chronic Assessment and plan: chronic, stable (3) Ileostomy in place Current Visit: Yes Status: Chronic Assessment and plan: chronic, stable (4) ESRD (end stage renal disease) on dialysis Current Visit: Yes Status: Chronic Assessment and plan: nephrology onboard, pt on MWF schedule with one added HD session Friday relieving 3600mL; BPs stable. (5) Tobacco abuse Current Visit: Yes Status: Chronic Assessment and plan: chronic, stable (6) Bronchitis Current Visit: Yes Status: Acute (7) COPD exacerbation Current Visit: Yes Status: Acute (8) HTN (hypertension) Current Visit: Yes Status: Chronic Qualifiers: Hypertension type: essential hypertension Qualified Code(s): I10 - Essential (primary) hypertension - Time Spent With Patient Total time spent is greater than 50% in coordination of care (as documented) at patient's floor/unit and/or counseling patient: - Subjective Interval history: Feels less achy than yesterday. Still has trouble breathing and required higher levels of O2 overnight. Pt clarifies that she uses 3L O2 at home via NC , but does not use BiPAP at home. So far, has not needed BiPAP during present hospitalization. She feels as though she has sputum to cough up, but cannot seem to produce it with a cough. Continues to be wheezy throughout. No fevers overnight. HD scheduled today. May ultimately benefit from BiPAP on discharge. - Constitutional Vitals: Temp Pulse Resp BP Pulse Ox 97.8 F 63 14 129/50 98 02/11/18 11:51 02/11/18 11:51 02/11/18 11:51 02/11/18 11:51 02/11/18 11:51 Head exam: Present: atraumatic, normocephalic Eye exam: Present: PERRL, conjuntiva pink, sclera anicteric Neck exam general surgery: Present: supple, trachea midline Respiratory exam: Present: CTAB, wheezes, audibly productive cough. Absent: accessory muscle use, rales, respiratory distress, rhonchi Cardiovascular exam: Present: RRR, +S1, +S2. Absent: diastolic murmur, gallop, rubs, systolic murmur GI/Abdominal exam: Present: normal bowel sounds, soft. Absent: distended, guarding, rigid, tenderness Extremities exam: Present: warm, radial pulses palpable and symmetrical. Absent : calf tenderness, cyanotic, pedal edema Neurological exam: Present: oriented X3, no focal deficits. Absent: facial droop, speech deficit Skin exam: Present: dry, intact, normal color. Absent: cyanosis, mottled, pallor, petechiae Internal Medicine: Result - Labs CBC & Chem 7: 02/11/18 04:00 02/11/18 04:00 Labs: Short CBC 02/11/18 Range/Units 04:00 WBC 3.9 L (4.3-11.1) K/mcL Hgb 9.0 L (11.5-15.4) g/dL Hct 28.5 L (35.3-44.9) % Plt Count 36 L (140-400) K/mcL BMP 02/11/18 04:00 Sodium 138 Potassium 4.3 Chloride 103 Carbon Dioxide 19 L BUN 37 H Creatinine 7.75 H Glucose 158 H Calcium 6.7 L Consult Discharge Plan - Plan Referrals: Andrew Edmonds MD [Non-Partnered Physician] - <Trey Iyer H - Last Filed: 02/11/18 13:43> Date of Encounter: 02/11/18 - Assessment and plan (1) Presence of urostomy Current Visit: Yes Status: Chronic (2) Ileostomy in place Current Visit: Yes Status: Chronic (3) ESRD (end stage renal disease) on dialysis Current Visit: Yes Status: Chronic (4) Tobacco abuse Current Visit: Yes Status: Chronic (5) Acute respiratory distress Current Visit: Yes Status: Acute (6) Bronchitis Current Visit: Yes Status: Acute (7) COPD exacerbation Current Visit: Yes Status: Acute (8) HTN (hypertension) Current Visit: Yes Status: Chronic Qualifiers: Hypertension type: essential hypertension Qualified Code(s): I10 - Essential (primary) hypertension - Time Spent With Patient Total time spent is greater than 50% in coordination of care (as documented) at patient's floor/unit and/or counseling patient: - Constitutional Vitals: Temp Pulse Resp BP Pulse Ox 97.8 F 63 14 129/50 98 02/11/18 11:51 02/11/18 11:51 02/11/18 11:51 02/11/18 11:51 02/11/18 11:51 Internal Medicine: Result - Labs CBC & Chem 7: 02/11/18 04:00 02/11/18 04:00 Labs: Short CBC 02/11/18 Range/Units 04:00 WBC 3.9 L (4.3-11.1) K/mcL Hgb 9.0 L (11.5-15.4) g/dL Hct 28.5 L (35.3-44.9) % Plt Count 36 L (140-400) K/mcL BMP 02/11/18 04:00 Sodium 138 Potassium 4.3 Chloride 103 Carbon Dioxide 19 L BUN 37 H Creatinine 7.75 H Glucose 158 H Calcium 6.7 L - Attending Attestation acute on chronic hypoxic resp failure 2ry to acute copd exacerbation due to Streptococcus pneumoniae pneumonia and metapneumovirus Continue solumedrol ESRD, remove fluid through HD I examined this patient and my medical decision-making was reviewed with the Resident Physician. I agree with the documented findings, disposition and treatment plan as described except to the extent set forth below.
[2018-02-11] MEDS: Azithromycin 500 MG in D5% in Water 250 ML IVPB SCH ×2 (16:33→19:47)
[2018-02-11 16:39] LABS: ABG Base Excess 1 mEq/L (-2 to 3); ABG HCO3 26 mEq/L (21-27); ABG Oxygen Saturation 98 % (95-98); ABG PCO2 47 mmHg (35-45); ABG PH 7.36 pH Units (7.32-7.45); ABG PO2 111 mmHg (85-104); ABG TCO2 28 mEq/L (20-26)
[2018-02-11] MEDS: Famotidine 20 MG TABLET PO SCH (20:04)
[2018-02-12] MEDS: MethylPREDNISolone 40 MG/ML VIAL IVP SCH ×3 (00:47→15:08)
[2018-02-12] MEDS: *HR* HYDROcodone/Acet 5/325 mg TABLET PO PRN ×3 (00:47→15:11)
[2018-02-12] MEDS: Ipratropium/Albuterol Neb 3 ML IH SCH ×6 (04:02→23:40)
[2018-02-12 04:47] LABS: Hematocrit 28.8 % (35.3-44.9); Hemoglobin 9.2 g/dL (11.5-15.4); Immature Platelets 5.8 % (1.1-6.1); Mean Corpuscular HGB Conc 31.9 g/dL (31.6-35.5); Mean Corpuscular Hemoglobin 31.7 pg (28.0-33.3); Mean Corpuscular Volume 99.3 fL (83.0-100.0); Mean Platelet Volume 13.4 fL (9.4-12.4); Red Blood Count 2.9 M/mcL (3.82-4.97); Red Cell Distribution Width 21.5 % (11.5-14.5)
[2018-02-12 05:06] LABS: Calcium 7.1 mg/dL (8.6-10.3); Potassium 4.7 mEq/L (3.5-5.1)
[2018-02-12] MEDS: Acetaminophen 325 MG TABLET PO PRN ×3 (06:33→20:08)
[2018-02-12] MEDS: Gabapentin 100 MG CAPSULE PO SCH ×3 (08:44→20:08)
[2018-02-12] MEDS: Cholecalciferol (D-3) 1,000 UNIT TABLET PO SCH (08:44)
[2018-02-12] MEDS: Fluticasone Propionate Nasal 50 MCG/SPRAY BOTTLE NS SCH (08:44)
[2018-02-12] MEDS: Renal Vitamin 1 MG CAPSULE PO SCH (08:44)
[2018-02-12] MEDS: Calcium Acetate 667 MG CAPSULE PO SCH ×3 (08:44→18:05)
--- NOTE | 2018-02-12 08:48 | Internal Med Progress Note ---
<Osbaldo Kraft - Last Filed: 02/12/18 08:43> Date of Encounter: 02/12/18 Time of Encounter: 08:43 - Assessment and plan (1) Acute respiratory distress Current Visit: Yes Status: Acute Assessment and plan: Secondary to Strep Pneumo PNA & associated metapneumonvirus infection. CXR showed cortes-bronchial cuffing and thickening. Pt still has wet cough, unable to produce sputum, and wheezes throughout. Also has required up to 6Lpm occasionally (baseline is 3L via NC). -- History of COPD and recent cessation of chronic smoking history -- Cont Zithromax (day 4) & Rocephin (day 4); -- On scheduled duonebs and PRN albuterol nebs -- Cont IV Solu-medrol; pt still significantly wheezy on exam -- Cont O2 via NC -- ABG virtually normal with slight pCO2 elevation with no metabolic compensation; BiPAP as needed -- repeat ABG if respiratory status worsens -- may add flutter valve if patient continues to be unable to produce sputum; culture sputum as able Pt lives at home with her brother and is insistent on returning home once discharged (2) COPD exacerbation Current Visit: Yes Status: Acute Assessment and plan: as above (3) Bronchitis Current Visit: Yes Status: Acute Assessment and plan: As above (4) ESRD (end stage renal disease) on dialysis Current Visit: Yes Status: Chronic Assessment and plan: nephrology onboard, pt on MWF schedule; BPs stable. (5) Presence of urostomy Current Visit: Yes Status: Chronic Assessment and plan: chronic, stable (6) Ileostomy in place Current Visit: Yes Status: Chronic Assessment and plan: chronic, stable (7) Tobacco abuse Current Visit: Yes Status: Chronic Assessment and plan: chronic, stable (8) DVT prophylaxis Current Visit: Yes Status: Acute Assessment and plan: subcutaneous heparin (9) HTN (hypertension) Current Visit: Yes Status: Chronic Assessment and plan: continue home meds, monitor closely in post-dialysis periods Qualifiers: Hypertension type: essential hypertension Qualified Code(s): I10 - Essential (primary) hypertension - Time Spent With Patient Total time spent is greater than 50% in coordination of care (as documented) at patient's floor/unit and/or counseling patient: - Subjective Interval history: Patient complains of chest pain that she states she has "all the time", but is slightly worse this morning; pain is sharp and hurts only when she is coughing or breathing deeply. Tylenol has not relieved this pain. Doubt ACS due the chronicity and character. ABG done yesterday afternoon demonstrated normal pH, slight PCO2 elevation, but no elevation of HCO3. CBC & BMP overall stable. No events or other concerns per RN. - Constitutional Vitals: Temp Pulse Resp BP Pulse Ox 97.7 F 68 16 134/59 100 02/12/18 07:35 02/12/18 07:35 02/12/18 07:35 02/12/18 07:35 02/12/18 07:35 Head exam: Present: atraumatic, normocephalic Eye exam: Present: PERRL, conjuntiva pink, sclera anicteric Neck exam general surgery: Present: supple, trachea midline Respiratory exam: Present: CTAB, wheezes, audibly productive cough. Absent: accessory muscle use, rales, respiratory distress, rhonchi Cardiovascular exam: Present: RRR, +S1, +S2. Absent: diastolic murmur, gallop, rubs, systolic murmur GI/Abdominal exam: Present: normal bowel sounds, soft. Absent: distended, guarding, rigid, tenderness Extremities exam: Present: warm, radial pulses palpable and symmetrical. Absent : calf tenderness, cyanotic, pedal edema Neurological exam: Present: oriented X3, no focal deficits. Absent: facial droop, speech deficit Skin exam: Present: dry, intact, normal color. Absent: cyanosis, mottled, pallor, petechiae General appearance: Present: cooperative, mild distress (cites chest pain on inspiration and requests pain medicine), answers questions appropriately Internal Medicine: Result - Labs CBC & Chem 7: 02/12/18 04:23 02/12/18 04:00 Labs: Short CBC 02/12/18 Range/Units 04:23 WBC 4.3 (4.3-11.1) K/mcL Hgb 9.2 L (11.5-15.4) g/dL Hct 28.8 L (35.3-44.9) % Plt Count 36 L (140-400) K/mcL BMP 02/12/18 04:00 Sodium 138 Potassium 4.7 Chloride 102 Carbon Dioxide 24 BUN 34 H Creatinine 6.67 H Glucose 120 H Calcium 7.1 L - ABG Interpretation ABG results: ABG ABG pH 7.36 pH Units (7.32-7.45) 02/11/18 16:32 ABG pCO2 47 mmHg (35-45) H 02/11/18 16:32 ABG pO2 111 mmHg (85-104) H 02/11/18 16:32 ABG O2 Saturation 98 % (95-98) 02/11/18 16:32 Consult Discharge Plan - Plan Referrals: Andrew Edmonds MD [Non-Partnered Physician] - <Trey Iyer H - Last Filed: 02/12/18 13:46> Date of Encounter: 02/12/18 - Assessment and plan (1) DVT prophylaxis Current Visit: Yes Status: Acute (2) Presence of urostomy Current Visit: Yes Status: Chronic (3) Ileostomy in place Current Visit: Yes Status: Chronic (4) ESRD (end stage renal disease) on dialysis Current Visit: Yes Status: Chronic (5) Tobacco abuse Current Visit: Yes Status: Chronic (6) Acute respiratory distress Current Visit: Yes Status: Acute (7) Bronchitis Current Visit: Yes Status: Acute (8) COPD exacerbation Current Visit: Yes Status: Acute (9) HTN (hypertension) Current Visit: Yes Status: Chronic Qualifiers: Hypertension type: essential hypertension Qualified Code(s): I10 - Essential (primary) hypertension - Time Spent With Patient Total time spent is greater than 50% in coordination of care (as documented) at patient's floor/unit and/or counseling patient: - Constitutional Vitals: Temp Pulse Resp BP Pulse Ox 97.6 F 72 15 136/42 96 02/12/18 11:52 02/12/18 11:52 02/12/18 11:52 02/12/18 11:52 02/12/18 11:52 Internal Medicine: Result - Labs CBC & Chem 7: 02/12/18 04:23 02/12/18 04:00 Labs: Short CBC 02/12/18 Range/Units 04:23 WBC 4.3 (4.3-11.1) K/mcL Hgb 9.2 L (11.5-15.4) g/dL Hct 28.8 L (35.3-44.9) % Plt Count 36 L (140-400) K/mcL BMP 02/12/18 04:00 Sodium 138 Potassium 4.7 Chloride 102 Carbon Dioxide 24 BUN 34 H Creatinine 6.67 H Glucose 120 H Calcium 7.1 L - ABG Interpretation ABG results: ABG ABG pH 7.36 pH Units (7.32-7.45) 02/11/18 16:32 ABG pCO2 47 mmHg (35-45) H 02/11/18 16:32 ABG pO2 111 mmHg (85-104) H 02/11/18 16:32 ABG O2 Saturation 98 % (95-98) 02/11/18 16:32 - Attending Attestation acute on chronic hypoxic resp failure 2ry to acute copd exacerbation due to Streptococcus pneumoniae pneumonia and metapneumovirus and volume overload Volume restriction Continue solumedrol ESRD, remove fluid through HD I examined this patient and my medical decision-making was reviewed with the Resident Physician. I agree with the documented findings, disposition and treatment plan as described except to the extent set forth below.
--- NOTE | 2018-02-12 12:57 | Nephrology Progress Note ---
Date of Encounter: 02/12/18 Time of Encounter: 12:55 - Assessment and Plan (1) ESRD (end stage renal disease) on dialysis Current Visit: Yes Status: Chronic HD tomorrow Avoid nephrotoxins if possible. (2) Frail elderly Current Visit: No Status: Acute per primary team. (3) Hypocalcemia Current Visit: No Status: Acute Ca+ 7.1 history of chronic hypocalcemia on Calcitrol. Subjective Principal diagnosis: ESRD Interval history: Patient seen and examined while in room. States she doesn't feel well however she is coloring. Objective - Vital Signs Vital signs: Vital Signs Temp Pulse Resp BP Pulse Ox 02/12/18 11:52 97.6 F 72 15 136/42 96 02/12/18 11:28 20 96 02/12/18 11:20 97.3 F L 71 16 123/60 98 02/12/18 10:20 134/59 02/12/18 07:35 97.7 F 68 16 134/59 100 02/12/18 07:32 20 99 02/12/18 04:41 97.6 F 77 17 108/42 100 02/12/18 04:02 24 99 02/11/18 23:45 18 98 02/11/18 23:39 98.6 F 67 18 114/44 98 02/11/18 20:32 16 96 02/11/18 20:18 98.7 F 65 16 111/41 96 02/11/18 20:12 96 02/11/18 16:24 20 99 02/11/18 15:15 98.1 F 20 119/49 02/11/18 15:05 138/56 02/11/18 15:00 98.1 F 64 20 121/67 93 02/11/18 14:40 104/39 02/11/18 14:25 104/39 02/11/18 14:10 134/47 02/11/18 13:55 131/52 02/11/18 13:40 134/47 02/11/18 13:25 121/60 02/11/18 13:10 120/59 Intake and Output 02/11/18 02/12/18 02/12/18 23:59 07:59 15:59 Intake Total 250 / 250 0 / 0 130 / 130 Output Total 100 / 100 400 / 400 Balance 150 / 150 0 / 0 -270 / -270 Intake: IV Fluids 250 / 250 Rocephin 1,000 MG In Water for inj. (sterile) 10 ML @ 300 mls/ hr IVP Q24H [facility] Rx#:[id number] Zithromax 500 mg In Dextrose 5% 250 / 250 250 ML @ 252 mls/hr IVPB Q24H [facility] Rx#:[id number] Oral 0 / 0 120 / 120 Output: Stool 100 / 100 400 / 400 Urostomy 0 / 0 Other: Stool Consistency liquid Stool Characteristics Normal for Patient Stool Color Brown # Voids 0 - General Appearance General appearance: Present: chronically ill, frail EENT: Present: ATNC Neck: Present: supple Respiratory: Present: course breath sounds, rhonchi Cardiology: Present: no edema, normal S1, normal S2 Dialysis Vascular Access: Arteriovenous Fistula Gastrointestinal: Present: normoactive bowel sounds Integumentary: Present: warm and dry Neurologic: Present: alert and oriented x3 Psychiatric: Present: mood/affect appropriate, cooperative - Lab 02/12/18 04:23 02/12/18 04:00 Most recent lab results ABG pH 7.36 pH Units (7.32-7.45) 02/11/18 16:32 ABG pCO2 47 mmHg (35-45) H 02/11/18 16:32 ABG pO2 111 mmHg (85-104) H 02/11/18 16:32 ABG HCO3 26 mEq/L (21-27) 02/11/18 16:32 ABG O2 Saturation 98 % (95-98) 02/11/18 16:32 Calcium 7.1 mg/dL (8.6-10.3) L 02/12/18 04:00 Consult Discharge Plan - Plan Referrals: Andrew Edmonds MD [Non-Partnered Physician] -
[2018-02-12] MEDS: *HR* Heparin 5,000 UNIT/ML VIAL SQ SCH (18:04)
[2018-02-12] MEDS: cefTRIAXone 1,000 MG in Water for inj. (sterile) 20 ML 10 ML IVP SCH (18:04)
[2018-02-12] MEDS: Ondansetron 4 MG/2 ML VIAL IVP PRN (18:08)
[2018-02-12] MEDS: Famotidine 20 MG TABLET PO SCH (20:08)
[2018-02-13] MEDS: *HR* HYDROcodone/Acet 5/325 mg TABLET PO PRN ×2 (00:40→15:34)
[2018-02-13] MEDS: MethylPREDNISolone 40 MG/ML VIAL IVP SCH ×3 (00:40→18:01)
[2018-02-13] MEDS: Ipratropium/Albuterol Neb 3 ML IH SCH ×5 (04:20→20:35)
[2018-02-13 05:04] LABS: Mean Corpuscular HGB Conc 31.9 g/dL (31.6-35.5); Red Cell Distribution Width 21.2 % (11.5-14.5)
[2018-02-13 05:06] LABS: Hematocrit 28.5 % (35.3-44.9); Hemoglobin 9.1 g/dL (11.5-15.4); Immature Platelets 4.1 % (1.1-6.1); Mean Corpuscular Volume 100.4 fL (83.0-100.0); Mean Platelet Volume 13.6 fL (9.4-12.4); Red Blood Count 2.84 M/mcL (3.82-4.97)
[2018-02-13 05:21] LABS: Calcium 6.9 mg/dL (8.6-10.3); Potassium 4.2 mEq/L (3.5-5.1)
[2018-02-13] MEDS: *HR* Heparin 5,000 UNIT/ML VIAL SQ SCH ×3 (05:37→18:00)
[2018-02-13] MEDS: Acetaminophen 325 MG TABLET PO PRN ×2 (05:39→17:59)
[2018-02-13] MEDS ORDERED: 0.9 % Sodium Chloride 250 ML IVC PRN (07:28)
[2018-02-13] MEDS ORDERED: 0.9 % Sodium Chloride 1,000 ML PRIME SCH (07:30)
[2018-02-13] MEDS: Gabapentin 100 MG CAPSULE PO SCH ×3 (08:17→20:14)
[2018-02-13] MEDS: Cholecalciferol (D-3) 1,000 UNIT TABLET PO SCH (08:17)
[2018-02-13] MEDS: Fluticasone Propionate Nasal 50 MCG/SPRAY BOTTLE NS SCH (08:17)
[2018-02-13] MEDS: Calcium Acetate 667 MG CAPSULE PO SCH ×3 (08:17→17:56)
[2018-02-13] MEDS: Renal Vitamin 1 MG CAPSULE PO SCH (08:17)
[2018-02-13] MEDS ORDERED: 0.9 % Sodium Chloride 1,000 ML ONE (08:18)
--- NOTE | 2018-02-13 11:54 | Internal Med Progress Note ---
<Osbaldo Kraft - Last Filed: 02/13/18 11:44> Date of Encounter: 02/13/18 Time of Encounter: 11:44 - Assessment and plan (1) Acute respiratory distress Current Visit: Yes Status: Acute Assessment and plan: Secondary to Strep Pneumo PNA & associated metapneumonvirus infection. CXR showed cortes-bronchial cuffing and thickening. Pt still has wet cough, unable to produce sputum, and wheezes throughout. Also has required up to 6Lpm occasionally (baseline is 3L via NC). -- History of COPD and recent cessation of chronic smoking history -- Cont Rocephin (day 5) -- On scheduled duonebs and PRN albuterol nebs -- Cont IV Solu-medrol; pt still significantly wheezy on exam -- Cont O2 via NC -- ABG virtually normal with slight pCO2 elevation with no metabolic compensation; BiPAP as needed -- repeat ABG if respiratory status worsens -- consulted RT for flutter valve; pt maintains still cannot cough anything up -- Lungs still sound bad, so will repeat CXR today to compare with last one done on 02/07/18 Pt lives at home with her brother and is insistent on returning home once discharged (2) COPD exacerbation Current Visit: Yes Status: Acute Assessment and plan: as above (3) Bronchitis Current Visit: Yes Status: Acute Assessment and plan: As above (4) ESRD (end stage renal disease) on dialysis Current Visit: Yes Status: Chronic Assessment and plan: nephrology onboard, pt on MWF schedule; BPs stable. (5) Presence of urostomy Current Visit: Yes Status: Chronic Assessment and plan: chronic, stable (6) Ileostomy in place Current Visit: Yes Status: Chronic Assessment and plan: chronic, stable (7) Tobacco abuse Current Visit: Yes Status: Chronic Assessment and plan: chronic, stable (8) DVT prophylaxis Current Visit: Yes Status: Acute Assessment and plan: subcutaneous heparin (9) HTN (hypertension) Current Visit: Yes Status: Chronic Assessment and plan: continue home meds, monitor closely in post-dialysis periods Qualifiers: Hypertension type: essential hypertension Qualified Code(s): I10 - Essential (primary) hypertension - Time Spent With Patient Total time spent is greater than 50% in coordination of care (as documented) at patient's floor/unit and/or counseling patient: - Subjective Interval history: Saw patient in dialysis. Patient has similar complaints to previous days, namely, sharp chest pain with coughing & deep inspiration, generally feeling unwell, and inability to produce sputum with cough. Patient's lungs continue to sound rhonchorous throughout despite instating fluid restriction. Patient has been otherwise stable overnight without any oxygen desaturations. Has not needed BiPAP as of yet. Will repeat chest x-ray today she has not had one since 02/07/18. - Constitutional Vitals: Temp Pulse Resp BP Pulse Ox 97.3 F L 69 18 125/47 96 02/13/18 09:35 02/13/18 07:45 02/13/18 09:35 02/13/18 11:20 02/13/18 07:58 General appearance: Present: cooperative, mild distress (cites chest pain on inspiration and requests pain medicine), answers questions appropriately Exam: Head exam: Present: atraumatic, normocephalic Eye exam: Present: PERRL, conjuntiva pink, sclera anicteric Neck exam general surgery: Present: supple, trachea midline Respiratory exam: Present: Rhonchi throughout, wheezes, audibly productive cough. Absent: accessory muscle use, respiratory distress Cardiovascular exam: Present: RRR, +S1, +S2. Absent: diastolic murmur, gallop, rubs, systolic murmur GI/Abdominal exam: Present: normal bowel sounds, soft. Absent: distended, guarding, rigid, tenderness Extremities exam: Present: warm, radial pulses palpable and symmetrical. Absent : calf tenderness, cyanotic, pedal edema Neurological exam: Present: oriented X3, no focal deficits. Absent: facial droop, speech deficit Skin exam: Present: dry, intact, normal color. Absent: cyanosis, mottled, pallor, petechiae Internal Medicine: Result - Labs CBC & Chem 7: 02/13/18 04:42 02/13/18 04:42 Labs: Short CBC 02/13/18 Range/Units 04:42 WBC 4.5 (4.3-11.1) K/mcL Hgb 9.1 L (11.5-15.4) g/dL Hct 28.5 L (35.3-44.9) % Plt Count 39 L (140-400) K/mcL BMP 02/13/18 04:42 Sodium 140 Potassium 4.2 Chloride 104 Carbon Dioxide 19 L BUN 52 H Creatinine 7.94 H Glucose 128 H Calcium 6.9 L - ABG Interpretation ABG results: ABG ABG pH 7.36 pH Units (7.32-7.45) 02/11/18 16:32 ABG pCO2 47 mmHg (35-45) H 02/11/18 16:32 ABG pO2 111 mmHg (85-104) H 02/11/18 16:32 ABG O2 Saturation 98 % (95-98) 02/11/18 16:32 Consult Discharge Plan - Plan Referrals: Andrew dEmonds MD [Non-Partnered Physician] - <Trey Iyer H - Last Filed: 02/13/18 16:12> Date of Encounter: 02/13/18 - Assessment and plan (1) DVT prophylaxis Current Visit: Yes Status: Acute (2) Presence of urostomy Current Visit: Yes Status: Chronic (3) Ileostomy in place Current Visit: Yes Status: Chronic (4) ESRD (end stage renal disease) on dialysis Current Visit: Yes Status: Chronic (5) Tobacco abuse Current Visit: Yes Status: Chronic (6) Acute respiratory distress Current Visit: Yes Status: Acute (7) Bronchitis Current Visit: Yes Status: Acute (8) COPD exacerbation Current Visit: Yes Status: Acute (9) HTN (hypertension) Current Visit: Yes Status: Chronic Qualifiers: Hypertension type: essential hypertension Qualified Code(s): I10 - Essential (primary) hypertension - Time Spent With Patient Total time spent is greater than 50% in coordination of care (as documented) at patient's floor/unit and/or counseling patient: - Constitutional Vitals: Temp Pulse Resp BP Pulse Ox 97 F L 69 20 120/54 96 02/13/18 13:15 02/13/18 07:45 02/13/18 15:28 02/13/18 13:15 02/13/18 15:28 Internal Medicine: Result - Labs CBC & Chem 7: 02/13/18 04:42 02/13/18 04:42 Labs: Short CBC 02/13/18 Range/Units 04:42 WBC 4.5 (4.3-11.1) K/mcL Hgb 9.1 L (11.5-15.4) g/dL Hct 28.5 L (35.3-44.9) % Plt Count 39 L (140-400) K/mcL BMP 02/13/18 04:42 Sodium 140 Potassium 4.2 Chloride 104 Carbon Dioxide 19 L BUN 52 H Creatinine 7.94 H Glucose 128 H Calcium 6.9 L - ABG Interpretation ABG results: ABG ABG pH 7.36 pH Units (7.32-7.45) 02/11/18 16:32 ABG pCO2 47 mmHg (35-45) H 02/11/18 16:32 ABG pO2 111 mmHg (85-104) H 02/11/18 16:32 ABG O2 Saturation 98 % (95-98) 02/11/18 16:32 - Attending Attestation acute on chronic hypoxic resp failure 2ry to acute copd exacerbation due to Streptococcus pneumoniae pneumonia and metapneumovirus and volume overload Volume overloaded despite hemodialyses Volume restriction Continue solumedrol ESRD, consider dialysis over the weekend remove more fluid I examined this patient and my medical decision-making was reviewed with the Resident Physician. I agree with the documented findings, disposition and treatment plan as described except to the extent set forth below.
--- NOTE | 2018-02-13 16:26 | Nephrology Progress Note ---
Date of Encounter: 02/13/18 Time of Encounter: 12:00 - Assessment and Plan (1) ESRD (end stage renal disease) on dialysis Status: Chronic Continue HD with UF as tolerated Continue renal diet Lytes stable except calcium, continue higher ca bath (2) Hypocalcemia Status: Acute Calcium persistently low, will dialyze with higher calcium bath Continue calcitriol as well and vit D (3) Anemia in CKD (chronic kidney disease) Status: Chronic Hgb noted in the 9.0s, will monitor and give EPO as needed Qualifiers: Chronic kidney disease stage: on chronic dialysis Qualified Code(s): N18.6 - End stage renal disease; D63.1 - Anemia in chronic kidney disease; D63.1 - Anemia in chronic kidney disease; Z99.2 - Dependence on renal dialysis; Z99.2 - Dependence on renal dialysis; Z99.2 - Dependence on renal dialysis; Z99.2 - Dependence on renal dialysis Subjective Principal diagnosis: ESRD Interval history: Pt seen and examined on HD with interim events noted Objective - Vital Signs Vital signs: Vital Signs Temp Pulse Resp BP Pulse Ox 02/13/18 15:28 20 96 02/13/18 13:15 97 F L 20 120/54 02/13/18 12:35 121/64 02/13/18 12:20 123/55 02/13/18 12:05 119/46 02/13/18 11:50 100/65 02/13/18 11:35 119/47 02/13/18 11:20 125/47 02/13/18 11:05 125/47 02/13/18 10:50 139/53 02/13/18 10:35 134/52 02/13/18 10:20 137/48 02/13/18 10:05 150/43 02/13/18 09:50 132/39 02/13/18 09:35 97.3 F L 18 127/48 02/13/18 07:58 16 96 02/13/18 07:45 98 F 69 16 151/58 98 02/13/18 04:20 16 96 02/13/18 04:00 97.4 F L 75 16 142/62 96 02/13/18 01:43 16 95 02/12/18 23:57 97.9 F 75 14 146/54 96 02/12/18 23:40 18 96 02/12/18 20:17 94 02/12/18 19:32 16 94 02/12/18 19:22 98.3 F 75 16 147/54 94 Intake and Output 02/13/18 02/13/18 02/13/18 07:59 15:59 23:59 Intake Total 600 / 600 600 / 600 Output Total 350 / 350 3900 / 3900 Balance 250 / 250 -3300 / -3300 Intake: Oral 600 / 600 0 / 0 Intake, Rinseback and Flushes 600 / 600 Output: Urine 0 / 0 Stool 350 / 350 300 / 300 Total Dialysis (HD) Output 3600 / 3600 Urostomy 0 / 0 Other: Hemodialysis Net Fluid Removed 3000 (mL) - General Appearance General appearance: Present: chronically ill, frail EENT: Present: ATNC, mucous membranes moist Neck: Present: no JVD, supple Respiratory: Present: course breath sounds Cardiology: Present: no edema, normal S1, normal S2 Dialysis Vascular Access: Arteriovenous Fistula thrill: Yes bruit: Yes Gastrointestinal: Present: no tenderness, no guarding (+ostomy) Integumentary: Present: warm and dry Neurologic: Present: no focal deficit, asterixis Musculoskeletal: Present: no deformities Psychiatric: Present: mood/affect appropriate - Lab 02/17/18 03:50 02/17/18 03:50 Most recent lab results ABG pH 7.36 pH Units (7.32-7.45) 02/11/18 16:32 ABG pCO2 47 mmHg (35-45) H 02/11/18 16:32 ABG pO2 111 mmHg (85-104) H 02/11/18 16:32 ABG HCO3 26 mEq/L (21-27) 02/11/18 16:32 ABG O2 Saturation 98 % (95-98) 02/11/18 16:32 Calcium 6.9 mg/dL (8.6-10.3) L 02/13/18 04:42 Consult Discharge Plan - Plan Additional Instructions: Please follow up with your PCP for your chronic medical needs and return to the hospital with any worsening of symptoms. Referrals: Na Johansen, TYLER [Primary Care Provider] - 02/27/18 10:00 am Prescriptions: PredniSONE [Deltasone] 40 mg PO DAILY #10 tablet Tramadol HCl [Ultram] 50 mg PO QID PRN 4 Days #16 tab PRN Reason: Pain
[2018-02-13] MEDS: cefTRIAXone 1,000 MG in Water for inj. (sterile) 20 ML 10 ML IVP SCH (17:57)
[2018-02-13] MEDS: Famotidine 20 MG TABLET PO SCH (20:14)
[2018-02-14] MEDS: Ipratropium/Albuterol Neb 3 ML IH SCH ×7 (00:18→23:39)
[2018-02-14] MEDS: MethylPREDNISolone 40 MG/ML VIAL IVP SCH ×4 (01:16→21:04)
[2018-02-14 04:29] LABS: Hemoglobin 9.4 g/dL (11.5-15.4); Mean Corpuscular Volume 99.7 fL (83.0-100.0)
[2018-02-14 04:31] LABS: Hematocrit 29.4 % (35.3-44.9); Immature Platelets 6.3 % (1.1-6.1); Mean Corpuscular Hemoglobin 31.9 pg (28.0-33.3); Mean Platelet Volume 10.8 fL (9.4-12.4); Red Blood Count 2.95 M/mcL (3.82-4.97); Red Cell Distribution Width 21.1 % (11.5-14.5)
[2018-02-14 04:46] LABS: Calcium 7.6 mg/dL (8.6-10.3); Potassium 4.4 mEq/L (3.5-5.1)
[2018-02-14] MEDS: *HR* Heparin 5,000 UNIT/ML VIAL SQ SCH ×2 (06:22→18:47)
[2018-02-14] MEDS: Renal Vitamin 1 MG CAPSULE PO SCH (09:12)
[2018-02-14] MEDS: *HR* HYDROcodone/Acet 5/325 mg TABLET PO PRN ×2 (09:12→16:03)
[2018-02-14] MEDS: Calcium Acetate 667 MG CAPSULE PO SCH ×3 (09:12→16:03)
[2018-02-14] MEDS: Cholecalciferol (D-3) 1,000 UNIT TABLET PO SCH (09:12)
[2018-02-14] MEDS: Gabapentin 100 MG CAPSULE PO SCH ×3 (09:12→21:04)
[2018-02-14] MEDS ORDERED: Isovue-370 500 ML INFUS..BTL IV ONE (09:25)
[2018-02-14] MEDS: Ondansetron 4 MG/2 ML VIAL IVP PRN (13:12)
--- NOTE | 2018-02-14 13:31 | Internal Med Progress Note ---
<Gen Frost - Last Filed: 02/14/18 13:29> Date of Encounter: 02/14/18 Time of Encounter: 11:00 - Assessment and plan (1) Acute respiratory distress Current Visit: Yes Status: Acute Assessment and plan: Secondary to Strep Pneumo PNA & associated metapneumonvirus infection. CXR showed cortes-bronchial cuffing and thickening. 02/14: continues to have rhonchi diffusely, on 3LNC oxygen baseline. CT chest demonstrates No evidence for aneurysm or dissection. Scattered inflammatory type nodules in the lungs, lower lobe opacities and small pleural effusions. -- History of COPD and recent cessation of chronic smoking history -- Cont Rocephin (day 6) -- On scheduled duonebs and PRN albuterol nebs -- Cont IV Solu-medrol -- Cont O2 via NC, wean as tolerated. Pt lives at home with her brother and is insistent on returning home once discharged (2) Chest pain Current Visit: Yes Status: Acute Assessment and plan: Patient complained of severe chest pain this am. CT of the chest/abd/pelvis was performed without findings of aortic disection, EKG was without ST elevations or depressions -Troponin result pending. reproducable chest pain on examination, remains constant possibly muscleskeletal secondary to coughing and tachypnea. (3) Presence of urostomy Current Visit: Yes Status: Chronic Assessment and plan: chronic, stable (4) Ileostomy in place Current Visit: Yes Status: Chronic Assessment and plan: chronic, stable (5) ESRD (end stage renal disease) on dialysis Current Visit: Yes Status: Chronic Assessment and plan: nephrology onboard, pt on MWF schedule; BPs stable. Continues to have ronchi - Volume status euvolemic Fluid balance -12.9L (6) Tobacco abuse Current Visit: Yes Status: Chronic Assessment and plan: chronic, stable (7) Bronchitis Current Visit: Yes Status: Acute Assessment and plan: Completed required dosing of Rocephin. (8) COPD exacerbation Current Visit: Yes Status: Acute Assessment and plan: as above (9) HTN (hypertension) Current Visit: Yes Status: Chronic Assessment and plan: continue home meds, monitor closely in post-dialysis periods Qualifiers: Hypertension type: essential hypertension Qualified Code(s): I10 - Essential (primary) hypertension (10) DVT prophylaxis Current Visit: Yes Status: Acute Assessment and plan: subcutaneous heparin (11) Pneumonia Current Visit: Yes Status: Acute Assessment and plan: Strep pneumonia antigen + with clinical and radiologic evidence of pneumonia at admission - Rocephin IV day 6, one more day with recurrent hospitalizations. - Time Spent With Patient Total time spent is greater than 50% in coordination of care (as documented) at patient's floor/unit and/or counseling patient: - Subjective Interval history: Ms. Parra has been seen and evaluated at bedside. She is alert, awake and interactive. She complains of chest pain across her chest but denies radiation down her arms. She says it has been going on all morning and went down for her chest CT. She also complains of pain across her entire lower back and says her kidneys hurt. No fevers, chills or diaphoresis. She continues to have shortness of breath and cough. Tolerating 3L NC oxygen which is her baseline. - Constitutional Vitals: Temp Pulse Resp BP Pulse Ox 97.8 F 72 18 129/48 98 02/14/18 11:38 02/14/18 11:38 02/14/18 11:50 02/14/18 11:38 02/14/18 11:50 General appearance: Present: cooperative, mild distress (cites chest pain on inspiration and requests pain medicine), answers questions appropriately Exam: Gen: alert, awake, interactive, sitting up in bed coloring, oriented x3 HEENT: NC/AT, PERRLA, Neck supple Chest: symmetric, tachypnea Respiratory:Rhonchi throughout, wheezes, audibly productive cough. Cardiac: RRR Abdomen: soft, nontender, +BS Back: Diffuse tenderness to palpation, no lesions, eccymosis, rash Extremities: warm, radial pulses palpable and symmetrical. Absent: calf tenderness, cyanotic, pedal edema Internal Medicine: Result - Labs CBC & Chem 7: 02/14/18 04:00 02/14/18 04:00 Labs: Short CBC 02/14/18 Range/Units 04:00 WBC 4.8 (4.3-11.1) K/mcL Hgb 9.4 L (11.5-15.4) g/dL Hct 29.4 L (35.3-44.9) % Plt Count 45 L (140-400) K/mcL BMP 02/14/18 04:00 Sodium 137 Potassium 4.4 Chloride 100 Carbon Dioxide 24 BUN 40 H Creatinine 5.66 H Glucose 152 H Calcium 7.6 L - ABG Interpretation ABG results: ABG ABG pH 7.36 pH Units (7.32-7.45) 02/11/18 16:32 ABG pCO2 47 mmHg (35-45) H 02/11/18 16:32 ABG pO2 111 mmHg (85-104) H 02/11/18 16:32 ABG O2 Saturation 98 % (95-98) 02/11/18 16:32 - Impressions Impressions Abdomen/Pelvis CTA 02/14/18 09:25 IMPRESSION: No evidence for aneurysm or dissection. 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 Further evaluation with Doppler ultrasound is recommended. Scattered inflammatory type nodules in the lungs, lower lobe opacities and small pleural effusions. This may be due to infection or possibly aspiration. D/ / João Markham / João Markham Interpreting Provider: João Markham Chest CTA 02/14/18 09:25 IMPRESSION: No evidence for aneurysm or dissection. 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 Further evaluation with Doppler ultrasound is recommended. Scattered inflammatory type nodules in the lungs, lower lobe opacities and small pleural effusions. This may be due to infection or possibly aspiration. D/ / João Markham / João Markham Interpreting Provider: João Markham Consult Discharge Plan - Plan Referrals: Andrew Edmonds MD [Non-Partnered Physician] - <Trey Iyer - Last Filed: 02/14/18 14:22> Date of Encounter: 02/14/18 - Assessment and plan (1) DVT prophylaxis Current Visit: Yes Status: Acute (2) Presence of urostomy Current Visit: Yes Status: Chronic (3) Ileostomy in place Current Visit: Yes Status: Chronic (4) ESRD (end stage renal disease) on dialysis Current Visit: Yes Status: Chronic (5) Tobacco abuse Current Visit: Yes Status: Chronic (6) Acute respiratory distress Current Visit: Yes Status: Acute (7) Bronchitis Current Visit: Yes Status: Acute (8) COPD exacerbation Current Visit: Yes Status: Acute (9) HTN (hypertension) Current Visit: Yes Status: Chronic Qualifiers: Hypertension type: essential hypertension Qualified Code(s): I10 - Essential (primary) hypertension (10) Chest pain Current Visit: Yes Status: Acute (11) Pneumonia Current Visit: Yes Status: Acute - Time Spent With Patient Total time spent is greater than 50% in coordination of care (as documented) at patient's floor/unit and/or counseling patient: - Constitutional Vitals: Temp Pulse Resp BP Pulse Ox 97.8 F 72 18 129/48 98 02/14/18 11:38 02/14/18 11:38 02/14/18 11:50 02/14/18 11:38 02/14/18 11:50 Internal Medicine: Result - Labs CBC & Chem 7: 02/14/18 04:00 02/14/18 04:00 Labs: Short CBC 02/14/18 Range/Units 04:00 WBC 4.8 (4.3-11.1) K/mcL Hgb 9.4 L (11.5-15.4) g/dL Hct 29.4 L (35.3-44.9) % Plt Count 45 L (140-400) K/mcL BMP 02/14/18 04:00 Sodium 137 Potassium 4.4 Chloride 100 Carbon Dioxide 24 BUN 40 H Creatinine 5.66 H Glucose 152 H Calcium 7.6 L - ABG Interpretation ABG results: ABG ABG pH 7.36 pH Units (7.32-7.45) 02/11/18 16:32 ABG pCO2 47 mmHg (35-45) H 02/11/18 16:32 ABG pO2 111 mmHg (85-104) H 02/11/18 16:32 ABG O2 Saturation 98 % (95-98) 02/11/18 16:32 - Impressions Impressions Abdomen/Pelvis CTA 02/14/18 09:25 IMPRESSION: No evidence for aneurysm or dissection. 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 Further evaluation with Doppler ultrasound is recommended. Scattered inflammatory type nodules in the lungs, lower lobe opacities and small pleural effusions. This may be due to infection or possibly aspiration. D/ / João Markham / João Markham Interpreting Provider: João Markham Chest CTA 02/14/18 09:25 IMPRESSION: No evidence for aneurysm or dissection. 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 Further evaluation with Doppler ultrasound is recommended. Scattered inflammatory type nodules in the lungs, lower lobe opacities and small pleural effusions. This may be due to infection or possibly aspiration. D/ / João Markham / João Markham Interpreting Provider: João Markham - Attending Attestation acute on chronic hypoxic resp failure 2ry to acute copd exacerbation due to Streptococcus pneumoniae pneumonia and metapneumovirus and volume overload Volume overloaded despite hemodialyses Volume restriction Continue solumedrol CT of the chest negative for dissection CP: trend troponins ESRD, consider dialysis over the weekend remove more fluid I examined this patient and my medical decision-making was reviewed with the Resident Physician. I agree with the documented findings, disposition and treatment plan as described except to the extent set forth below.
[2018-02-14] MEDS: Fluticasone Propionate Nasal 50 MCG/SPRAY BOTTLE NS SCH (14:10)
[2018-02-14] MEDS: Acetaminophen 325 MG TABLET PO PRN (14:13)
--- NOTE | 2018-02-14 15:49 | Nephrology Progress Note ---
Date of Encounter: 02/14/18 Time of Encounter: 15:00 - Assessment and Plan (1) Acute respiratory distress Status: Resolved Needs more aggressive pulm toilet with mucomyst added to nebs too Aspirations concerns per nurse, will defer to primary team (2) Pneumonia Status: Acute s/p abx, just completed per nurse. was positive for strep p. antigen Qualifiers: Pneumonia type: due to group B Streptococcus Laterality: unspecified laterality Lung location: unspecified part of lung Qualified Code(s): J15.3 - Pneumonia due to streptococcus, group B (3) ESRD (end stage renal disease) on dialysis Status: Chronic s/p HD yesterday with Uf of 3kg with no signs of fluid overload at present Subjective Principal diagnosis: ESRD Interval history: Pt seen and examined with complaints of hurting all over and persistent cough non productive. CTA chest done today with results pending Objective - Vital Signs Vital signs: Vital Signs Temp Pulse Resp BP Pulse Ox 02/14/18 15:32 97.8 F 73 17 160/66 97 02/14/18 11:50 18 98 02/14/18 11:38 97.8 F 72 18 129/48 98 02/14/18 08:06 16 91 02/14/18 07:44 97.8 F 74 14 124/66 91 02/14/18 04:10 20 98 02/14/18 03:56 98.0 F 73 14 154/62 100 02/14/18 00:32 97.6 F 67 18 151/58 100 02/14/18 00:18 16 98 02/13/18 20:37 20 98 02/13/18 19:19 98.1 F 72 16 159/54 91 02/13/18 16:33 98.2 F 68 16 153/61 97 Intake and Output 02/13/18 02/14/18 02/14/18 23:59 07:59 15:59 Intake Total 170 / 170 0 / 0 840 / 840 Output Total 500 / 500 0 / 0 550 / 550 Balance -330 / -330 0 / 0 290 / 290 Intake: Oral 170 / 170 0 / 0 840 / 840 Output: Urine 0 / 0 Stool 500 / 500 0 / 0 550 / 550 Urostomy 0 / 0 0 / 0 0 / 0 Other: Meal Dinner Lunch Percent of Meal Consumed 75% 100% Weight 67.1 kg Patient Weight 02/14/18 23:59 Weight 67.1 kg - General Appearance General appearance: Present: chronically ill, frail EENT: Present: ATNC, mucous membranes moist Neck: Present: no JVD, supple Respiratory: Present: course breath sounds Cardiology: Present: no edema, normal S1, normal S2 Dialysis Vascular Access: Arteriovenous Fistula thrill: Yes bruit: Yes Gastrointestinal: Present: no tenderness, no guarding (+PEG) Integumentary: Present: warm and dry Neurologic: Present: no focal deficit Musculoskeletal: Present: no deformities Psychiatric: Present: mood/affect appropriate - Lab 02/17/18 03:50 02/17/18 03:50 Most recent lab results ABG pH 7.36 pH Units (7.32-7.45) 02/11/18 16:32 ABG pCO2 47 mmHg (35-45) H 02/11/18 16:32 ABG pO2 111 mmHg (85-104) H 02/11/18 16:32 ABG HCO3 26 mEq/L (21-27) 02/11/18 16:32 ABG O2 Saturation 98 % (95-98) 02/11/18 16:32 Calcium 7.6 mg/dL (8.6-10.3) L 02/14/18 04:00 Consult Discharge Plan - Plan Additional Instructions: Please follow up with your PCP for your chronic medical needs and return to the hospital with any worsening of symptoms. Referrals: Na Johansen CNP [Primary Care Provider] - 02/27/18 10:00 am Prescriptions: PredniSONE [Deltasone] 40 mg PO DAILY #10 tablet Tramadol HCl [Ultram] 50 mg PO QID PRN 4 Days #16 tab PRN Reason: Pain
[2018-02-14] MEDS: cefTRIAXone 1,000 MG in Water for inj. (sterile) 20 ML 10 ML IVP SCH (16:01)
[2018-02-14] MEDS: Acetylcysteine 10% 2 ML INHSOL IH SCH ×2 (16:29→23:40)
[2018-02-14] MEDS ORDERED: *HR* HYDROcodone/Acet 5/325 mg TABLET PO ONE (19:12)
[2018-02-14] MEDS: Famotidine 20 MG TABLET PO SCH (21:04)
[2018-02-15] MEDS: *HR* HYDROcodone/Acet 5/325 mg TABLET PO PRN ×3 (03:52→17:11)
[2018-02-15] MEDS: Ipratropium/Albuterol Neb 3 ML IH SCH ×6 (04:09→23:17)
[2018-02-15 04:27] LABS: Hematocrit 27.6 % (35.3-44.9); Mean Corpuscular Volume 100.7 fL (83.0-100.0); Red Blood Count 2.74 M/mcL (3.82-4.97)
[2018-02-15 04:29] LABS: Hemoglobin 8.7 g/dL (11.5-15.4); Immature Platelets 4.3 % (1.1-6.1); Mean Corpuscular HGB Conc 31.5 g/dL (31.6-35.5); Mean Corpuscular Hemoglobin 31.8 pg (28.0-33.3); Mean Platelet Volume 12.9 fL (9.4-12.4)
[2018-02-15 04:46] LABS: Calcium 6.9 mg/dL (8.6-10.3); Potassium 4.1 mEq/L (3.5-5.1)
[2018-02-15] MEDS: *HR* Heparin 5,000 UNIT/ML VIAL SQ SCH ×2 (06:43→17:12)
[2018-02-15] MEDS: Acetylcysteine 10% 2 ML INHSOL IH SCH ×3 (08:01→20:13)
--- NOTE | 2018-02-15 08:49 | Internal Med Progress Note ---
<Gen Frost - Last Filed: 02/15/18 10:12> Date of Encounter: 02/15/18 Time of Encounter: 08:48 - Assessment and plan (1) Acute respiratory distress Current Visit: Yes Status: Acute Assessment and plan: Secondary to Strep Pneumo PNA & associated metapneumonvirus infection. CXR showed cortes-bronchial cuffing and thickening. 02/14: continues to have rhonchi diffusely, on 3LNC oxygen baseline. CT chest demonstrates No evidence for aneurysm or dissection. Scattered inflammatory type nodules in the lungs, lower lobe opacities and small pleural effusions. 02/15: continues to have rhonchi diffusely, on 3LNC oxygen baseline. Would likely benefit from bedside spirometer, Acapella -- History of COPD and recent cessation of chronic smoking history -- Cont Rocephin (day 7) discontinue tomorrow. -- On scheduled duonebs and PRN albuterol nebs -- Cont IV Solu-medrol 40mg IV BID -- Cont O2 via NC, wean as tolerated. Pt lives at home with her brother and is insistent on returning home once discharged (2) Chest pain Current Visit: Yes Status: Acute Assessment and plan: Patient complained of severe chest pain this am. CT of the chest/abd/pelvis was performed without findings of aortic disection, EKG was without ST elevations or depressions -Troponin <0.03. 02/15: Chest pain improved today, continues to be slightly reproducible with thoracic palpation. reproducable chest pain on examination, remains constant possibly muscleskeletal secondary to coughing and tachypnea. (3) Presence of urostomy Current Visit: Yes Status: Chronic Assessment and plan: chronic, stable (4) Ileostomy in place Current Visit: Yes Status: Chronic Assessment and plan: chronic, stable (5) ESRD (end stage renal disease) on dialysis Current Visit: Yes Status: Chronic Assessment and plan: nephrology onboard, pt on MWF schedule; BPs stable. Continues to have ronchi - Volume status euvolemic Fluid balance -12.9L (6) Tobacco abuse Current Visit: Yes Status: Chronic Assessment and plan: chronic, stable (7) Bronchitis Current Visit: Yes Status: Acute Assessment and plan: Completed required dosing of Rocephin. (8) COPD exacerbation Current Visit: Yes Status: Acute Assessment and plan: as above (9) HTN (hypertension) Current Visit: Yes Status: Chronic Assessment and plan: continue home meds, monitor closely in post-dialysis periods Qualifiers: Hypertension type: essential hypertension Qualified Code(s): I10 - Essential (primary) hypertension (10) DVT prophylaxis Current Visit: Yes Status: Acute Assessment and plan: subcutaneous heparin (11) Pneumonia Current Visit: Yes Status: Acute Assessment and plan: Strep pneumonia antigen + with clinical and radiologic evidence of pneumonia at admission - Rocephin IV day 7, discontinue tomorrow. - Time Spent With Patient Total time spent is greater than 50% in coordination of care (as documented) at patient's floor/unit and/or counseling patient: - Subjective Interval history: Ms. Parra has been seen and evaluated at bedside. She is alert, awake and interactive. She states she still feels Rough, continues to have a rattling rhonchorous cough without any sputum production. She has bilateral chest discomfort much improved compared to the day prior. She has been tolerating oral intake, no nausea, vomiting, diarrhea or constipation. She is agreeable to use bedside spirometer and/or Acapella. - Constitutional Vitals: Temp Pulse Resp BP Pulse Ox 97.8 F 68 20 150/54 93 02/15/18 07:12 02/15/18 07:12 02/15/18 08:01 02/15/18 07:12 02/15/18 08:01 General appearance: Present: cooperative, A&O X 3, answers questions appropriately Exam: Gen: alert, awake, interactive, sitting up in bed coloring, oriented x3 HEENT: NC/AT, PERRLA, Neck supple Chest: symmetric, tachypnea Respiratory:Rhonchi throughout, wheezes, audibly productive cough. Cardiac: RRR Abdomen: soft, nontender, +BS Back: Diffuse tenderness to palpation, no lesions, eccymosis, rash Extremities: warm, radial pulses palpable and symmetrical. Absent: calf tenderness, cyanotic, pedal edema Internal Medicine: Result - Labs CBC & Chem 7: 02/15/18 03:45 02/15/18 03:45 Labs: Short CBC 02/15/18 Range/Units 03:45 WBC 4.6 (4.3-11.1) K/mcL Hgb 8.7 L (11.5-15.4) g/dL Hct 27.6 L (35.3-44.9) % Plt Count 48 L (140-400) K/mcL BMP 02/15/18 03:45 Sodium 141 Potassium 4.1 Chloride 100 Carbon Dioxide 24 BUN 59 H Creatinine 7.13 H Glucose 195 H Calcium 6.9 L Cardiac Enzymes 02/14/18 Range/Units 14:30 Troponin I 0.03 (< 0.04) ng/mL - ABG Interpretation ABG results: ABG ABG pH 7.36 pH Units (7.32-7.45) 02/11/18 16:32 ABG pCO2 47 mmHg (35-45) H 02/11/18 16:32 ABG pO2 111 mmHg (85-104) H 02/11/18 16:32 ABG O2 Saturation 98 % (95-98) 02/11/18 16:32 - Impressions Impressions Abdomen/Pelvis CTA 02/14/18 09:25 IMPRESSION: No evidence for aneurysm or dissection. 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 Further evaluation with Doppler ultrasound is recommended. Scattered inflammatory type nodules in the lungs, lower lobe opacities and small pleural effusions. This may be due to infection or possibly aspiration. D/ / João Markham / João Markham Interpreting Provider: João Markham Chest CTA 02/14/18 09:25 IMPRESSION: No evidence for aneurysm or dissection. 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 Further evaluation with Doppler ultrasound is recommended. Scattered inflammatory type nodules in the lungs, lower lobe opacities and small pleural effusions. This may be due to infection or possibly aspiration. D/ / João Markham / João Markham Interpreting Provider: João Markham Consult Discharge Plan - Plan Referrals: Andrew Edmonds MD [Non-Partnered Physician] - <Trey Iyer H - Last Filed: 02/15/18 11:14> Date of Encounter: 02/15/18 - Assessment and plan (1) DVT prophylaxis Current Visit: Yes Status: Acute (2) Presence of urostomy Current Visit: Yes Status: Chronic (3) Ileostomy in place Current Visit: Yes Status: Chronic (4) ESRD (end stage renal disease) on dialysis Current Visit: Yes Status: Chronic (5) Tobacco abuse Current Visit: Yes Status: Chronic (6) Acute respiratory distress Current Visit: Yes Status: Acute (7) Bronchitis Current Visit: Yes Status: Acute (8) COPD exacerbation Current Visit: Yes Status: Acute (9) HTN (hypertension) Current Visit: Yes Status: Chronic Qualifiers: Hypertension type: essential hypertension Qualified Code(s): I10 - Essential (primary) hypertension (10) Chest pain Current Visit: Yes Status: Acute (11) Pneumonia Current Visit: Yes Status: Acute - Time Spent With Patient Total time spent is greater than 50% in coordination of care (as documented) at patient's floor/unit and/or counseling patient: - Constitutional Vitals: Temp Pulse Resp BP Pulse Ox 97.8 F 68 20 150/54 93 02/15/18 07:12 02/15/18 07:12 02/15/18 08:01 02/15/18 07:12 02/15/18 08:01 Internal Medicine: Result - Labs CBC & Chem 7: 02/15/18 03:45 02/15/18 03:45 Labs: Short CBC 02/15/18 Range/Units 03:45 WBC 4.6 (4.3-11.1) K/mcL Hgb 8.7 L (11.5-15.4) g/dL Hct 27.6 L (35.3-44.9) % Plt Count 48 L (140-400) K/mcL BMP 02/15/18 03:45 Sodium 141 Potassium 4.1 Chloride 100 Carbon Dioxide 24 BUN 59 H Creatinine 7.13 H Glucose 195 H Calcium 6.9 L Cardiac Enzymes 02/14/18 Range/Units 14:30 Troponin I 0.03 (< 0.04) ng/mL - ABG Interpretation ABG results: ABG ABG pH 7.36 pH Units (7.32-7.45) 02/11/18 16:32 ABG pCO2 47 mmHg (35-45) H 02/11/18 16:32 ABG pO2 111 mmHg (85-104) H 02/11/18 16:32 ABG O2 Saturation 98 % (95-98) 02/11/18 16:32 - Impressions Impressions Abdomen/Pelvis CTA 02/14/18 09:25 IMPRESSION: No evidence for aneurysm or dissection. 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 Further evaluation with Doppler ultrasound is recommended. Scattered inflammatory type nodules in the lungs, lower lobe opacities and small pleural effusions. This may be due to infection or possibly aspiration. D/ / João Markham / João Markham Interpreting Provider: João Markham Chest CTA 02/14/18 09:25 IMPRESSION: No evidence for aneurysm or dissection. 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 Further evaluation with Doppler ultrasound is recommended. Scattered inflammatory type nodules in the lungs, lower lobe opacities and small pleural effusions. This may be due to infection or possibly aspiration. D/ / João Markham / João Markham Interpreting Provider: João Markham - Attending Attestation acute on chronic hypoxic resp failure 2ry to acute copd exacerbation due to Streptococcus pneumoniae pneumonia and metapneumovirus and volume overload Volume overloaded despite hemodialyses Fluid restriction Continue solumedrol CT of the chest negative for dissection ESRD, consider dialysis over the weekend remove more fluid speech pathology consult , aspiration precautions I examined this patient and my medical decision-making was reviewed with the Resident Physician. I agree with the documented findings, disposition and treatment plan as described except to the extent set forth below.
[2018-02-15] MEDS: MethylPREDNISolone 40 MG/ML VIAL IVP SCH ×2 (09:16→22:09)
[2018-02-15] MEDS: Cholecalciferol (D-3) 1,000 UNIT TABLET PO SCH (09:17)
[2018-02-15] MEDS: Renal Vitamin 1 MG CAPSULE PO SCH (09:17)
[2018-02-15] MEDS: Gabapentin 100 MG CAPSULE PO SCH ×3 (09:17→22:09)
[2018-02-15] MEDS: Calcium Acetate 667 MG CAPSULE PO SCH ×3 (09:17→17:11)
[2018-02-15] MEDS: Fluticasone Propionate Nasal 50 MCG/SPRAY BOTTLE NS SCH (09:18)
[2018-02-15] MEDS: Benzonatate 100 MG CAPSULE PO PRN (09:35)
[2018-02-15] MEDS: Ondansetron 4 MG/2 ML VIAL IVP PRN (11:28)
[2018-02-15] MEDS: Acetaminophen 325 MG TABLET PO PRN (13:48)
[2018-02-15] MEDS: *HR* Promethazine 25 MG/ML VIAL IVP PRN (13:48)
--- NOTE | 2018-02-15 15:26 | Nephrology Progress Note ---
Date of Encounter: 02/15/18 Time of Encounter: 14:00 - Assessment and Plan (1) Acute respiratory distress Status: Resolved Needs more aggressive pulm toilet with mucomyst added to nebs too Aspirations concerns per nurse, will defer to primary team (2) Pneumonia Status: Acute s/p abx, just completed per nurse. was positive for strep p. antigen Qualifiers: Pneumonia type: due to group B Streptococcus Laterality: unspecified laterality Lung location: unspecified part of lung Qualified Code(s): J15.3 - Pneumonia due to streptococcus, group B (3) ESRD (end stage renal disease) on dialysis Status: Chronic Hd planned tomorrow with UF as tolerated Subjective Principal diagnosis: ESRD Interval history: Pt seen and examined still feeling very rough today with achy chest pain from persistent cough non productive Objective - Vital Signs Vital signs: Vital Signs Temp Pulse Resp BP Pulse Ox 02/15/18 11:21 97.8 F 72 18 150/62 97 02/15/18 08:01 20 93 02/15/18 07:12 97.8 F 68 18 150/54 99 02/15/18 04:09 18 94 02/15/18 02:53 97.6 F 73 16 131/53 95 02/14/18 23:42 98.2 F 91 16 148/52 94 02/14/18 23:41 18 94 02/14/18 18:51 98.4 F 73 16 127/49 95 02/14/18 16:26 16 160/66 96 02/14/18 15:32 97.8 F 73 17 160/66 97 Intake and Output 02/14/18 02/15/18 02/15/18 23:59 07:59 15:59 Intake Total 100 / 100 360 / 360 600 / 600 Output Total 875 / 875 0 / 0 Balance -775 / -775 360 / 360 600 / 600 Intake: Oral 100 / 100 360 / 360 600 / 600 Output: Urine 0 / 0 Stool 850 / 850 0 / 0 Urostomy 25 / 25 0 / 0 Other: Meal Dinner Lunch Percent of Meal Consumed 100% 100% Stool Consistency soft Stool Characteristics Normal for Patient Stool Color Brown Weight 67.215 kg Patient Weight 02/15/18 23:59 Weight 67.215 kg - General Appearance General appearance: Present: chronically ill, frail EENT: Present: ATNC, mucous membranes moist Neck: Present: no JVD, supple Respiratory: Present: course breath sounds Cardiology: Present: no edema, normal S1, normal S2 Dialysis Vascular Access: Arteriovenous Fistula thrill: Yes bruit: Yes Gastrointestinal: Present: no tenderness, no guarding (+ostomy) Integumentary: Present: warm and dry Neurologic: Present: no focal deficit Musculoskeletal: Present: no deformities Psychiatric: Present: mood/affect appropriate, cooperative - Lab 02/17/18 03:50 02/17/18 03:50 Most recent lab results ABG pH 7.36 pH Units (7.32-7.45) 02/11/18 16:32 ABG pCO2 47 mmHg (35-45) H 02/11/18 16:32 ABG pO2 111 mmHg (85-104) H 02/11/18 16:32 ABG HCO3 26 mEq/L (21-27) 02/11/18 16:32 ABG O2 Saturation 98 % (95-98) 02/11/18 16:32 Calcium 6.9 mg/dL (8.6-10.3) L 02/15/18 03:45 Consult Discharge Plan - Plan Additional Instructions: Please follow up with your PCP for your chronic medical needs and return to the hospital with any worsening of symptoms. Referrals: Na Johansen CNP [Primary Care Provider] - 02/27/18 10:00 am Prescriptions: PredniSONE [Deltasone] 40 mg PO DAILY #10 tablet Tramadol HCl [Ultram] 50 mg PO QID PRN 4 Days #16 tab PRN Reason: Pain
[2018-02-15] MEDS: cefTRIAXone 1,000 MG in Water for inj. (sterile) 20 ML 10 ML IVP SCH (17:11)
[2018-02-15] MEDS: Famotidine 20 MG TABLET PO SCH (22:09)
[2018-02-16] MEDS: *HR* Promethazine 25 MG/ML VIAL IVP PRN (03:37)
[2018-02-16] MEDS: *HR* HYDROcodone/Acet 5/325 mg TABLET PO PRN ×3 (03:37→21:22)
[2018-02-16] MEDS: Ipratropium/Albuterol Neb 3 ML IH SCH ×5 (03:57→20:13)
[2018-02-16 04:12] LABS: Basophils % 0.1 %; Immature Granulocytes % 3.5 % (0-4); Lymphocytes # 0.5 K/mcL (0.6-4.6); Lymphocytes % 5.6 %; Mean Corpuscular HGB Conc 32.1 g/dL (31.6-35.5); Mean Corpuscular Hemoglobin 32.5 pg (28.0-33.3); Mean Corpuscular Volume 101.1 fL (83.0-100.0); Mean Platelet Volume 11.3 fL (9.4-12.4); Monocytes # 0.1 K/mcL (0.0-1.3); Monocytes % 1.5 %; Neutrophils # 7.9 K/mcL (1.6-8.9); Nucleated Red Blood Cells 0.6 /100 WBC (0); Red Blood Count 2.77 M/mcL (3.82-4.97); Red Cell Distribution Width 21.1 % (11.5-14.5); Segmented Neutrophils % 89.3 %
[2018-02-16 04:13] LABS: Platelet Count 61 K/mcL (140-400)
[2018-02-16 04:34] LABS: Albumin 3.5 g/dL (3.5-5.7); Albumin/Globulin Ratio 1.7 (1.1-2.2); Bilirubin,Total 0.3 mg/dL (0.3-1.0); Calcium 6.9 mg/dL (8.6-10.3); Globulin 2.1 g/dL (2.4-3.5); Potassium 4.7 mEq/L (3.5-5.1); Total Protein 5.6 g/dL (6.4-8.9)
[2018-02-16] MEDS: Acetylcysteine 10% 2 ML INHSOL IH SCH ×2 (07:22→16:28)
[2018-02-16] MEDS: *HR* Heparin 5,000 UNIT/ML VIAL SQ SCH ×2 (07:31→17:18)
[2018-02-16] MEDS: dilTIAZem HCl 60 MG TABLET PO SCH ×4 (07:31→23:50)
[2018-02-16] MEDS: Fluticasone Propionate Nasal 50 MCG/SPRAY BOTTLE NS SCH (07:54)
[2018-02-16] MEDS: Gabapentin 100 MG CAPSULE PO SCH ×3 (07:54→21:23)
[2018-02-16] MEDS: Renal Vitamin 1 MG CAPSULE PO SCH (07:54)
[2018-02-16] MEDS: MethylPREDNISolone 40 MG/ML VIAL IVP SCH (07:55)
[2018-02-16] MEDS: Cholecalciferol (D-3) 1,000 UNIT TABLET PO SCH (07:55)
[2018-02-16] MEDS ORDERED: 0.9 % Sodium Chloride 1,000 ML ONE ×2 (07:56→10:35)
[2018-02-16] MEDS: Calcium Acetate 667 MG CAPSULE PO SCH ×3 (08:01→17:17)
[2018-02-16] MEDS ORDERED: 0.9 % Sodium Chloride 250 ML IVC PRN (08:52)
--- NOTE | 2018-02-16 10:24 | Internal Med Progress Note ---
<Jovani Sylvester - Last Filed: 02/16/18 10:44> Date of Encounter: 02/16/18 Time of Encounter: 10:24 - Assessment and plan (1) Acute respiratory distress Current Visit: Yes Status: Acute Assessment and plan: Secondary to Strep Pneumo PNA & associated metapneumonvirus infection. CXR showed cortes-bronchial cuffing and thickening. 02/14: continues to have rhonchi diffusely, on 3LNC oxygen baseline. CT chest demonstrates No evidence for aneurysm or dissection. Scattered inflammatory type nodules in the lungs, lower lobe opacities and small pleural effusions. 02/16: continues to have rales, rhonchi diffusely, on 3LNC oxygen baseline. Would likely benefit from bedside spirometer, Acapella -- History of COPD and recent cessation of chronic smoking history -- Urine positive for Strep pneumo antigen. -- Cont Rocephin (day 7) discontinue today -- On scheduled duonebs and PRN albuterol nebs -- Decrease solumedrol to prednisone 40mg BID -- Cont O2 via NC, wean as tolerated. Pt lives at home with her brother and is insistent on returning home once discharged (2) Presence of urostomy Current Visit: Yes Status: Chronic Assessment and plan: chronic, stable (3) Ileostomy in place Current Visit: Yes Status: Chronic Assessment and plan: chronic, stable (4) ESRD (end stage renal disease) on dialysis Current Visit: Yes Status: Chronic Assessment and plan: nephrology onboard, pt on MWF schedule; BPs stable. Continues to have ronchi, rales. Likely pulmonary etiology - Volume status euvolemic Fluid balance -14 L (5) Tobacco abuse Current Visit: Yes Status: Chronic Assessment and plan: chronic, stable (6) Bronchitis Current Visit: Yes Status: Acute Assessment and plan: Completed required dosing of Rocephin. (7) COPD exacerbation Current Visit: Yes Status: Acute Assessment and plan: as above (8) HTN (hypertension) Current Visit: Yes Status: Chronic Assessment and plan: continue home meds, monitor closely in post-dialysis periods Qualifiers: Hypertension type: essential hypertension Qualified Code(s): I10 - Essential (primary) hypertension (9) Chest pain Current Visit: Yes Status: Acute Assessment and plan: Patient complained of severe chest pain this am. CT of the chest/abd/pelvis was performed without findings of aortic disection, EKG was without ST elevations or depressions -Troponin <0.03. 02/15: Chest pain improved today, continues to be slightly reproducible with thoracic palpation. 02/16: Chest pain same as previous. Reproducible on exam. No exertional component. possibly muscleskeletal secondary to coughing and tachypnea. Continue supportive pain medications, reassurance. Anxiolytics as needed. Qualifiers: Chest pain type: chest pain on breathing Qualified Code(s): R07.1 - Chest pain on breathing; R07.81 - Pleurodynia (10) DVT prophylaxis Current Visit: Yes Status: Acute Assessment and plan: subcutaneous heparin (11) Pneumonia Current Visit: Yes Status: Acute Assessment and plan: Strep pneumonia antigen + with clinical and radiologic evidence of pneumonia at admission - Rocephin IV day 8, discontinue today - Improving SOB - Continue supplemental O2 as needed. Qualifiers: Pneumonia type: due to group B Streptococcus Laterality: unspecified laterality Lung location: unspecified part of lung Qualified Code(s): J15.3 - Pneumonia due to streptococcus, group B - Time Spent With Patient Total time spent is greater than 50% in coordination of care (as documented) at patient's floor/unit and/or counseling patient: 25 - 35 minutes - Subjective Interval history: patient seen and examined while in dialysis this morning. She states that she continues to experience chest pain with mild SOB. Her chest pain is chronic but she gets tearful during interview, stating that she feels like this "may be the end". She was reassured that we can help control her pain and she then returned to normal mood. She states her breathing is improved but her chest pain is about the same. No further complaints. - Constitutional Vitals: Temp Pulse Resp BP Pulse Ox 97.7 F 76 15 138/55 95 02/16/18 07:39 02/16/18 07:39 02/16/18 07:39 02/16/18 07:39 02/16/18 08:42 General appearance: Present: cooperative, A&O X 3, answers questions appropriately Exam: Gen.: Vitals noted. No acute distress. AAOx3, tearful during exam. HEENT: PERRL/EOMI, oropharynx clear, Normocephalic, atraumatic, MMM Cardiac: RRR, no murmur, +S1/S2. Chest pain reproducible on exam. Pulmonary: Rales diffusely. Audible upper airway secretions. equal chest expansion Abdomen: soft, nontender, BS noted, no guarding, no rebound. Ileostomy bag in place. Extremities: no BLE edema, nontender calf, no cyanosis or clubbing. Dialysis fistula on left UE. Neuro: A&Ox3, moves all extremities, no focal deficits Psych: Tearful but appropriate. Internal Medicine: Result - Labs CBC & Chem 7: 02/16/18 03:35 02/16/18 03:35 Labs: Short CBC 02/16/18 Range/Units 03:35 WBC 8.8 D (4.3-11.1) K/mcL Hgb 9.0 L (11.5-15.4) g/dL Hct 28.0 L (35.3-44.9) % Plt Count 61 L (140-400) K/mcL Neutrophils # 7.9 (1.6-8.9) K/mcL BMP 02/16/18 03:35 Sodium 139 Potassium 4.7 Chloride 103 Carbon Dioxide 19 L BUN 74 H Creatinine 8.26 H Glucose 148 H Calcium 6.9 L Liver Function 02/16/18 Range/Units 03:35 Total Bilirubin 0.3 (0.3-1.0) mg/dL AST 34 (13-39) Units/L ALT 63 H (7-52) Units/L Alkaline Phosphatase 41 (34-104) Units/L Albumin 3.5 (3.5-5.7) g/dL - ABG Interpretation ABG results: ABG ABG pH 7.36 pH Units (7.32-7.45) 02/11/18 16:32 ABG pCO2 47 mmHg (35-45) H 02/11/18 16:32 ABG pO2 111 mmHg (85-104) H 02/11/18 16:32 ABG O2 Saturation 98 % (95-98) 02/11/18 16:32 Consult Discharge Plan - Plan Referrals: Andrew Edmonds MD [Non-Partnered Physician] - <Trey Iyer H - Last Filed: 02/16/18 12:52> Date of Encounter: 02/16/18 - Assessment and plan (1) DVT prophylaxis Current Visit: Yes Status: Acute (2) Presence of urostomy Current Visit: Yes Status: Chronic (3) Ileostomy in place Current Visit: Yes Status: Chronic (4) ESRD (end stage renal disease) on dialysis Current Visit: Yes Status: Chronic (5) Tobacco abuse Current Visit: Yes Status: Chronic (6) Acute respiratory distress Current Visit: Yes Status: Acute (7) Bronchitis Current Visit: Yes Status: Acute (8) COPD exacerbation Current Visit: Yes Status: Acute (9) HTN (hypertension) Current Visit: Yes Status: Chronic Qualifiers: Hypertension type: essential hypertension Qualified Code(s): I10 - Essential (primary) hypertension (10) Chest pain Current Visit: Yes Status: Acute Qualifiers: Chest pain type: chest pain on breathing Qualified Code(s): R07.1 - Chest pain on breathing; R07.81 - Pleurodynia (11) Pneumonia Current Visit: Yes Status: Acute Qualifiers: Pneumonia type: due to group B Streptococcus Laterality: unspecified laterality Lung location: unspecified part of lung Qualified Code(s): J15.3 - Pneumonia due to streptococcus, group B - Time Spent With Patient Total time spent is greater than 50% in coordination of care (as documented) at patient's floor/unit and/or counseling patient: - Constitutional Vitals: Temp Pulse Resp BP Pulse Ox 97.7 F 76 15 138/55 95 02/16/18 07:39 02/16/18 07:39 02/16/18 07:39 02/16/18 07:39 02/16/18 08:42 Internal Medicine: Result - Labs CBC & Chem 7: 02/16/18 03:35 02/16/18 03:35 Labs: Short CBC 02/16/18 Range/Units 03:35 WBC 8.8 D (4.3-11.1) K/mcL Hgb 9.0 L (11.5-15.4) g/dL Hct 28.0 L (35.3-44.9) % Plt Count 61 L (140-400) K/mcL Neutrophils # 7.9 (1.6-8.9) K/mcL BMP 02/16/18 03:35 Sodium 139 Potassium 4.7 Chloride 103 Carbon Dioxide 19 L BUN 74 H Creatinine 8.26 H Glucose 148 H Calcium 6.9 L Liver Function 02/16/18 Range/Units 03:35 Total Bilirubin 0.3 (0.3-1.0) mg/dL AST 34 (13-39) Units/L ALT 63 H (7-52) Units/L Alkaline Phosphatase 41 (34-104) Units/L Albumin 3.5 (3.5-5.7) g/dL - ABG Interpretation ABG results: ABG ABG pH 7.36 pH Units (7.32-7.45) 02/11/18 16:32 ABG pCO2 47 mmHg (35-45) H 02/11/18 16:32 ABG pO2 111 mmHg (85-104) H 02/11/18 16:32 ABG O2 Saturation 98 % (95-98) 02/11/18 16:32 - Attending Attestation acute on chronic hypoxic resp failure 2ry to acute copd exacerbation due to Streptococcus pneumoniae pneumonia and metapneumovirus and volume overload Volume overloaded despite hemodialyses Fluid restriction completed 1 week of Rocephin Continue solumedrol CT of the chest negative for dissection ESRD, consider dialysis over the weekend remove more fluid speech pathology consult , aspiration precautions I examined this patient and my medical decision-making was reviewed with the Resident Physician. I agree with the documented findings, disposition and treatment plan as described except to the extent set forth below.
[2018-02-16] MEDS: predniSONE 20 MG TABLET PO SCH (17:17)
[2018-02-16] MEDS: Acetaminophen 325 MG TABLET PO PRN ×2 (17:18→23:50)
[2018-02-16] MEDS: Famotidine 20 MG TABLET PO SCH (21:23)
[2018-02-16] MEDS: Ondansetron 4 MG/2 ML VIAL IVP PRN (21:24)
--- NOTE | 2018-02-16 23:55 | Nephrology Progress Note ---
Date of Encounter: 02/16/18 Time of Encounter: 12:00 - Assessment and Plan (1) ESRD (end stage renal disease) on dialysis Current Visit: Yes Status: Chronic Continue HD with UF as tolerated with goal of 3-4kg (2) Acute respiratory distress Current Visit: Yes Status: Acute Needs more aggressive pulm toilet, continue mucomyst with nebs already started Aspirations concerns, will defer to primary team (3) Pneumonia Current Visit: Yes Status: Acute s/p abx, just completed per nurse. was positive for strep p. antigen Qualifiers: Pneumonia type: due to group B Streptococcus Laterality: unspecified laterality Lung location: unspecified part of lung Qualified Code(s): J15.3 - Pneumonia due to streptococcus, group B Subjective Principal diagnosis: ESRD Interval history: Pt seen and examined on HD reporting still with persistent cough but now becoming productive of sputum Objective - Vital Signs Vital signs: Vital Signs Temp Pulse Resp BP Pulse Ox 02/16/18 23:00 98.8 F 76 16 126/42 98 02/16/18 20:13 18 94 02/16/18 19:24 98.9 F 71 15 155/56 97 02/16/18 16:27 16 97 02/16/18 16:13 98.1 F 60 16 153/56 97 02/16/18 13:35 97.4 F L 16 132/48 02/16/18 13:15 117/49 02/16/18 13:00 115/53 02/16/18 12:45 113/52 02/16/18 12:30 111/49 02/16/18 12:15 115/52 02/16/18 12:00 110/59 02/16/18 11:45 132/65 02/16/18 11:30 133/49 02/16/18 11:15 138/57 02/16/18 11:00 140/55 02/16/18 10:45 127/48 02/16/18 10:30 131/47 02/16/18 10:15 123/44 02/16/18 10:00 124/51 02/16/18 09:45 97.7 F 15 127/53 02/16/18 08:42 95 02/16/18 07:39 97.7 F 76 15 138/55 95 02/16/18 07:23 18 94 02/16/18 05:11 98.0 F 74 16 136/63 97 02/16/18 04:01 16 96 02/16/18 03:56 98.2 F 79 16 116/43 98 02/16/18 01:09 75 128/51 02/15/18 23:58 97.7 F 76 18 119/47 97 Intake and Output 02/16/18 02/16/18 02/16/18 07:59 15:59 23:59 Intake Total 60 / 60 600 / 600 340 / 340 Output Total 800 / 800 4600 / 4600 1175 / 1175 Balance -740 / -740 -4000 / -4000 -835 / -835 Intake: Oral 60 / 60 0 / 0 340 / 340 Intake, Rinseback and Flushes 600 / 600 Output: Urine 0 / 0 Stool 800 / 800 1175 / 1175 Total Dialysis (HD) Output 4600 / 4600 Urostomy 0 / 0 Other: Stool Size Moderate Stool Consistency soft soft Stool Characteristics Normal for Patient Normal for Patient Stool Color Brown Brown Yellow Hemodialysis Net Fluid Removed 4000 (mL) - General Appearance General appearance: Present: chronically ill, frail EENT: Present: ATNC, mucous membranes moist Neck: Present: no JVD, supple Respiratory: Present: course breath sounds Cardiology: Present: no edema, normal S1, normal S2 Dialysis Vascular Access: Arteriovenous Fistula thrill: Yes bruit: Yes Gastrointestinal: Present: no tenderness, no guarding Integumentary: Present: warm and dry Neurologic: Present: no focal deficit Musculoskeletal: Present: no deformities Psychiatric: Present: mood/affect appropriate - Lab 02/16/18 03:35 02/16/18 03:35 Most recent lab results ABG pH 7.36 pH Units (7.32-7.45) 02/11/18 16:32 ABG pCO2 47 mmHg (35-45) H 02/11/18 16:32 ABG pO2 111 mmHg (85-104) H 02/11/18 16:32 ABG HCO3 26 mEq/L (21-27) 02/11/18 16:32 ABG O2 Saturation 98 % (95-98) 02/11/18 16:32 Calcium 6.9 mg/dL (8.6-10.3) L 02/16/18 03:35 Consult Discharge Plan - Plan Referrals: Andrew Edmonds MD [Non-Partnered Physician] -
[2018-02-17] MEDS: traMADol 50 MG TABLET PO PRN ×3 (00:43→11:49)
[2018-02-17] MEDS: Benzonatate 100 MG CAPSULE PO PRN ×2 (03:45→11:49)
[2018-02-17] MEDS: *HR* HYDROcodone/Acet 5/325 mg TABLET PO PRN ×2 (03:45→09:34)
[2018-02-17 04:12] LABS: Lymphocytes % 7.2 %; Nucleated Red Blood Cells 0.5 /100 WBC (0)
[2018-02-17 04:14] LABS: Basophils % 0.2 %; Hematocrit 26.9 % (35.3-44.9); Hemoglobin 8.4 g/dL (11.5-15.4); Immature Granulocytes % 2.7 % (0-4); Immature Platelets 5.4 % (1.1-6.1); Lymphocytes # 0.5 K/mcL (0.6-4.6); Mean Corpuscular HGB Conc 31.2 g/dL (31.6-35.5); Mean Corpuscular Hemoglobin 31.2 pg (28.0-33.3); Monocytes # 0.1 K/mcL (0.0-1.3); Monocytes % 1.9 %; Neutrophils # 5.6 K/mcL (1.6-8.9); Red Blood Count 2.69 M/mcL (3.82-4.97); Red Cell Distribution Width 21.6 % (11.5-14.5)
[2018-02-17 04:21] LABS: Platelet Count 69 K/mcL (140-400)
[2018-02-17] MEDS: Ipratropium/Albuterol Neb 3 ML IH SCH ×4 (04:22→11:42)
[2018-02-17 04:32] LABS: Calcium 7.1 mg/dL (8.6-10.3); Potassium 3.6 mEq/L (3.5-5.1)
[2018-02-17] MEDS: dilTIAZem HCl 60 MG TABLET PO SCH ×2 (06:53→11:49)
[2018-02-17] MEDS: Ondansetron 4 MG/2 ML VIAL IVP PRN (06:55)
[2018-02-17] MEDS: *HR* Heparin 5,000 UNIT/ML VIAL SQ SCH (06:58)
[2018-02-17] MEDS: Acetylcysteine 10% 2 ML INHSOL IH SCH ×2 (07:29)
[2018-02-17] MEDS: Calcium Acetate 667 MG CAPSULE PO SCH ×2 (07:57→11:49)
[2018-02-17] MEDS: predniSONE 20 MG TABLET PO SCH (07:57)
[2018-02-17] MEDS: Fluticasone Propionate Nasal 50 MCG/SPRAY BOTTLE NS SCH (07:57)
[2018-02-17] MEDS: Renal Vitamin 1 MG CAPSULE PO SCH (07:57)
[2018-02-17] MEDS: Gabapentin 100 MG CAPSULE PO SCH (07:57)
[2018-02-17] MEDS: Cholecalciferol (D-3) 1,000 UNIT TABLET PO SCH (07:58)
[2018-02-17] MEDS: Acetaminophen 325 MG TABLET PO PRN (07:58)
--- NOTE | 2018-02-17 11:03 | Discharge Summary ---
<Jovani Sylvester - Last Filed: 02/17/18 14:31> Orders not resulted at time of discharge: Pending orders 02/14/18 09:27 EKG [ECG 12 lead ECG] [ECG] Stat Date of Encounter: 02/17/18 Time of Encounter: 09:15 - Discharge Diagnosis (1) Acute respiratory distress Priority: Primary Status: Resolved (2) Presence of urostomy Priority: Secondary Status: Chronic (3) Ileostomy in place Priority: Secondary Status: Chronic (4) ESRD (end stage renal disease) on dialysis Priority: Secondary Status: Chronic (5) Tobacco abuse Priority: Secondary Status: Chronic (6) Bronchitis Priority: Secondary Status: Acute (7) COPD exacerbation Priority: Secondary Status: Resolved (8) HTN (hypertension) Priority: Secondary Status: Chronic Qualifiers: Hypertension type: essential hypertension Qualified Code(s): I10 - Essential (primary) hypertension (9) Chest pain Priority: Secondary Status: Chronic Qualifiers: Chest pain type: chest pain on breathing Qualified Code(s): R07.1 - Chest pain on breathing; R07.81 - Pleurodynia (10) DVT prophylaxis Priority: Secondary Status: Acute (11) Pneumonia Priority: Secondary Status: Acute Qualifiers: Pneumonia type: due to group B Streptococcus Laterality: unspecified laterality Lung location: unspecified part of lung Qualified Code(s): J15.3 - Pneumonia due to streptococcus, group B Hospital course: Ms. Parra is a 72 year old female who presented to ED with a complaint of shortness of breath and cough for the previous 2 days. She reportedly was [facility] from jail 2 days prior. Admits to thick green productive sputum. She has had multiple admission in the past year for COPD, SOB, chronic chest wall pain. In the ED, vital signs wnl on 2L O2. Labs were at baseline levels. She did test positive for humanmetapneumovirus on respiratory panel. CXR showing bilateral peribronchial cuffing suggestive of bronchitis. She was admitted to medicine service for further evaluation and management of COPD exacerbation secondary to viral illness. During course of hospital stay, patient gradually improved. She was treated symptomatically with oxygen, corticosteroids, duonebs, tessalon, mucinex. She was also treated with a course of ceftriaxone and azithromycin. Urine was positive for legionella antigen. She did complain of chest pain during admission , however does admit that this is chronic and was reproducible on exam. Her EKG shows no signs of ischemia and she was treated symptomatically. She did receive her normal MWF dialysis during admission with a total of 14L of fluid removal during the total admission. During day of discharge, patient's breathing and pain were at baseline levels. She was offered placement in a jail but declines as she states she would have better care at home with her granddaughter. She is medically stable for discharge at this time. All questions were answered and she was instructed to follow up with her PCP for further management of her chronic medical conditions. Discharge discussed with: patient - Time Spent with Patient Total time spent providing and/or coordinating discharge services: - Discharge Medications Prescriptions: PredniSONE [Deltasone] 40 mg PO DAILY #10 tablet Tramadol HCl [Ultram] 50 mg PO QID PRN 4 Days #16 tab PRN Reason: Pain Home Medications: Cholecalciferol (Vitamin D3) [Vitamin D3] 5,000 unit PO DAILY #0 09/19/15 [ History] Ranitidine HCl [Zantac] 150 mg PO HS 09/19/15 [History] Cyanocobalamin (B-12) [Vitamin B12] 1,000 mcg IM QMONTH 02/21/17 [History] Levothyroxine Sodium [Synthroid] 300 mcg PO DAILY 02/21/17 [History] Lidocaine/Prilocaine CREAM [Emla] 1 appl TP AD PRN 06/30/17 [History] Renal Vitamin [Renal Caps Softgel] 1 mg PO DAILY 06/30/17 [History] Acetaminophen [Tylenol] 650 mg PO Q6HR PRN #20 tab 07/10/17 [Rx] Menthol [[place]] 3.2 mg MM Q4H PRN 07/16/17 [History] GuaiFENesin ER [Mucinex] 600 mg PO BID 5 Days #10 tbbp.12hr 09/14/17 [Rx] Calcium Acetate [Phos-LO] 667 mg PO TIDWM 10/17/17 [History] Benzonatate [Tessalon] 100 mg PO TID PRN #90 capsule 10/24/17 [Rx] Calcitriol [Rocaltrol] 0.25 mcg PO DAILY capsule 10/24/17 [Rx] Ferrous Sulfate 325 mg PO DAILY 11/14/17 [History] Darbepoetin [Aranesp] 60 mcg SQ Th syringe 12/15/17 [Rx] Diltiazem [Cardizem] 30 mg PO Q6HR tablet 12/15/17 [Rx] Fluticasone Propionate Nasal [Flonase] 50 mcg NS DAILY bottle 12/15/17 [Rx] Gabapentin [Neurontin] 100 mg PO TID #30 capsule 12/15/17 [Rx] Ipratropium/Albuterol Neb [Duoneb] 3 ml IH [id number] PRN inhsol 12/15/17 [Rx] LORazepam [Ativan] 0.5 mg PO BID PRN 10 Days #10 tablet 12/15/17 [Rx] Nitroglycerin 0.4 mg SL Q5MIN PRN tab.subl 12/15/17 [Rx] traZODone [TraZODone] 25 mg PO HS 02/08/18 [History] PredniSONE [Deltasone] 40 mg PO DAILY #10 tablet 02/17/18 [Rx] Tramadol HCl [Ultram] 50 mg PO QID PRN 4 Days #16 tab 02/17/18 [Rx] Allergies/Adverse Reactions: 3 Allergy/AdvReac Type Severity Reaction Status Date / Time codeine AdvReac Severe Vomiting Verified 01/13/18 07:37 naproxen [From Naprosyn] AdvReac Severe Vomiting Verified 01/13/18 07:37 Date of admission: 02/08/18 04:48 Primary care physician: Na Johansen CNP Consults: 02/08/18 08:28 Consult to Nephrology [CONS] Routine Consulting Provider: Kidney Katelyn/MAYO/JAYESH/COREY Reason for Consult: ESRD , for resumption of HD schedule Call Completed: No 02/08/18 14:03 Consult to Invasive Line Access Team [CONS] Routine Reason for Consult: no access Line Type: EPIV 02/09/18 08:15 Consult to Dialysis [CONS] ONCE 02/09/18 11:04 Consult to Physical Therapy [CONS] Routine Comment: Evaluate, develop and implement POC Reason for Consult: unable to walk, recent d/c home from rehab stay. HH vs back to rehab? Does patient have active BEDREST order?: No Is patient medically & hemodynamically stable?: Yes Patient assessed for mobility or mobilized this visit?: No 02/09/18 11:05 Consult to Occupational Therapy [CONS] Routine Comment: Evaluate, develop and implement POC Reason for Consult: unable to walk, recent d/c home from rehab stay. HH vs back to rehab? Does patient have active BEDREST order?: No Is patient medically & hemodynamically stable?: Yes Patient assessed for mobility or mobilized this visit?: No 02/10/18 07:30 Consult to Dialysis [CONS] ONCE 02/11/18 03:38 Consult to High [employer] Mathematics Teacher [CONS] Routine Reason for SW Consult: Financial concerns 02/11/18 03:43 Consult to Pastoral Services [CONS] Routine Comment: 02/11/18 08:45 Consult to Dialysis [CONS] ONCE 02/12/18 09:07 Consult to Respiratory Therapy [CONS] Routine Reason for Consult: acute bronchitis with excess sputum; pt unable to cough it out. Need Acapella / FV. Time Notified: 09:08 Call Completed: Yes 02/13/18 07:30 Consult to Dialysis [CONS] ONCE 02/16/18 09:00 Consult to Dialysis [CONS] ONCE 02/16/18 14:32 Consult to Respiratory Therapy [CONS] Routine Reason for Consult: Evaluation for possible pulmonary vest Call Completed: Yes Discharging clinician: Jovani Sylvester Anticipated date of discharge: 02/17/18 - Constitutional Vitals: Temp Pulse Resp BP Pulse Ox 98.1 F 71 18 139/53 94 02/17/18 06:50 02/17/18 06:50 02/17/18 07:29 02/17/18 06:50 02/17/18 07:29 General appearance: Present: cooperative, A&O X 3, answers questions appropriately Exam: Gen.: Vitals noted. No acute distress. AAOx3. resting comfortably in bed. HEENT: PERRL/EOMI, oropharynx clear, Normocephalic, atraumatic, MMM Cardiac: RRR, no murmur, +S1/S2. Reproducible chest pain on exam. Pulmonary: Diffuse rhonchi however when stethoscope is off of the chest patient audibly relaxes her breathing. .equal chest expansion Abdomen: soft, nontender, BS noted, no guarding Extremities: no BLE edema, nontender calf, no cyanosis or clubbing Neuro: A&Ox3, moves all extremities, no focal deficits Psych: Appropriate mood and behavior - Patient Status Disposition: Home, Self-Care Condition: Fair Functional capacity at discharge: wheelchair bound Overall status at discharge: patient is progressing back to baseline - Discharge Instructions Follow Up With: Na Johansen CNP [Primary Care Provider] - 02/27/18 10:00 am Additional Instructions: Please follow up with your PCP for your chronic medical needs and return to the hospital with any worsening of symptoms. - Diet and Activity Activity: as per physical therapy, increase activity as tolerated, resume usual activities as tolerated Diet: low salt diet <Thallapandave,Rambabu - Last Filed: 02/17/18 19:28> Date of Encounter: 02/17/18 - Discharge Diagnosis (1) DVT prophylaxis Status: Acute (2) Presence of urostomy Status: Chronic (3) Ileostomy in place Status: Chronic (4) ESRD (end stage renal disease) on dialysis Status: Chronic (5) Tobacco abuse Status: Chronic (6) Acute respiratory distress Status: Resolved (7) Bronchitis Status: Acute (8) COPD exacerbation Status: Resolved (9) HTN (hypertension) Status: Chronic Qualifiers: Hypertension type: essential hypertension Qualified Code(s): I10 - Essential (primary) hypertension (10) Chest pain Status: Chronic Qualifiers: Chest pain type: chest pain on breathing Qualified Code(s): R07.1 - Chest pain on breathing; R07.81 - Pleurodynia (11) Pneumonia Status: Acute Qualifiers: Pneumonia type: due to group B Streptococcus Laterality: unspecified laterality Lung location: unspecified part of lung Qualified Code(s): J15.3 - Pneumonia due to streptococcus, group B Hospital course: Ms. Parra is a 72 year old female - Time Spent with Patient Total time spent providing and/or coordinating discharge services: Date of admission: 02/08/18 04:48 Primary care physician: Na Johansen CNP Consults: 02/08/18 08:28 Consult to Nephrology [CONS] Routine Consulting Provider: Kidney Katelyn/MAYO/JAYESH/COREY Reason for Consult: ESRD , for resumption of HD schedule Call Completed: No 02/08/18 14:03 Consult to Invasive Line Access Team [CONS] Routine Reason for Consult: no access Line Type: EPIV 02/09/18 08:15 Consult to Dialysis [CONS] ONCE 02/09/18 11:04 Consult to Physical Therapy [CONS] Routine Comment: Evaluate, develop and implement POC Reason for Consult: unable to walk, recent d/c home from rehab stay. HH vs back to rehab? Does patient have active BEDREST order?: No Is patient medically & hemodynamically stable?: Yes Patient assessed for mobility or mobilized this visit?: No 02/09/18 11:05 Consult to Occupational Therapy [CONS] Routine Comment: Evaluate, develop and implement POC Reason for Consult: unable to walk, recent d/c home from rehab stay. HH vs back to rehab? Does patient have active BEDREST order?: No Is patient medically & hemodynamically stable?: Yes Patient assessed for mobility or mobilized this visit?: No 02/10/18 07:30 Consult to Dialysis [CONS] ONCE 02/11/18 03:38 Consult to [employer] Mathematics Teacher [CONS] Routine Reason for SW Consult: Financial concerns 02/11/18 03:43 Consult to Pastoral Services [CONS] Routine Comment: 02/11/18 08:45 Consult to Dialysis [CONS] ONCE 02/12/18 09:07 Consult to Respiratory Therapy [CONS] Routine Reason for Consult: acute bronchitis with excess sputum; pt unable to cough it out. Need Acapella / FV. Time Notified: 09:08 Call Completed: Yes 02/13/18 07:30 Consult to Dialysis [CONS] ONCE 02/16/18 09:00 Consult to Dialysis [CONS] ONCE 02/16/18 14:32 Consult to Respiratory Therapy [CONS] Routine Reason for Consult: Evaluation for possible pulmonary vest Call Completed: Yes - Constitutional Vitals: Temp Pulse Resp BP Pulse Ox 97.5 F L 72 18 142/59 99 02/17/18 10:00 02/17/18 10:00 02/17/18 11:47 02/17/18 10:00 02/17/18 11:47 - Attending Attestation I examined this patient and my medical decision-making was reviewed with the Resident Physician Dr. Sylvester. I agree with the documented findings, disposition and treatment plan as described except to the extent set forth below. Pt seems to back to baseline. Recommend to cont tapering steroids and as needed duoneb.
[2018-02-17 11:45] VITALS: BP 142/59
== END 2018-02-17 14:21 | disposition home or self-care (01) | DRG 139 ==
LOC: 3ANU 20:55 → EMEROO 20:55 → 3ANU 23:39
PROVIDERS: ADMIT Family Medicine; ATTEND Internal Medicine

== ENCOUNTER 2018-03-23 23:11 | Inpatient (IN) ==
[2018-03-24] MEDS ORDERED: Naloxone 0.4 MG/ML INJ IVP PRN (01:33)
--- NOTE | 2018-03-24 01:37 | Event Note ---
Date of Encounter: 03/24/18 Time of Encounter: 01:32 Patient was seen and examined. I agree with the H&P as written by the Resident Physician. 72 year old female with PMH of asthma, COPD on 3L, GERD, HTN, ESRD on HD M/W/ and hypothyroidism who presented to ER at [facility] with cough and shortness of breath. Recently put on oral abx for b/l LE cellulitis. Apparently was wheezing there and given nebs and IV solu-medrol and transferred here. Labs show pancytopenia which seems chronic. kidney function consistent with ESRD. CXR with nothing acute. She was satting in low 90s on 3L there and upon arrival. Here temp is 100.5 and slightly tachycardic. Alert oriented 3 Tachycardic. S1 and S2 with no murmurs rubs gallops She sound rhonchorous diffusely. Soft nontender nondistended. Lower extremities with bilateral areas of erythema and tenderness on the medial aspects of both shins. 2+DP Will admit to hospitalist for COPD exacerbation/bronchitis/LE cellulitis IV solu-medrol q8hrs IV levaquin dosed renally scheduled nebs Check CT chest given significant coarse breath sounds Check sputum cultures, urine strep and Legionella Consult nephrology to resume dialysis. Resume home meds. SCDs for DVT prophylaxis
--- NOTE | 2018-03-24 01:44 | Internal Med History&Physical ---
Date of Encounter: 03/24/18 Time of Encounter: 01:33 Internal Medicine - H&P: HPI Chief complaint: lower leg pain Admitted From: Home Plans for Post Hospital Care: Transfer [employer] Director Care History of present illness: Ms. Parra is a 72 year old female w/ pmh of frequent COPD exacerbations last hospitalization in 02/2018 home O2 3L, current everyday smoker 2-10 a day, cirrhosis, urostomy, ileostomy in place, ESRD on HD, HTN presents with 4 day history of bilateral 10/10 leg burning below the knees. Patient has had this previously but only on left leg never in both legs. Pain has progressively worsened. Patient has not attempted to treat at home. Patient states they burn to touch and feel like they're radiating heat. Patient reports subjective fever. Patient reports chronic abd pain, chest pain and SOB. Patient denies nausea, vomiting, confusion, night sweats. Past Med Surg Social Fam HX - Past Medical History Medical history: asthma, atrial fibrillation, COPD, GERD, hypertension, renal disease, thyroid disease, other Psychiatric history: no psych history - Past Surgical History Surgical History: appendectomy, cholecystectomy, colostomy, herniorrhaphy, hysterectomy, other - Social History Smoking Status: Current every day smoker Packs per day: 0.3 Smokeless Tobacco Status: No Alcohol use: none Drug use: none - Family History Mother Adopted: No Living Status: Hx Family Cardiac Disorders: Yes ([place]/ Stroke) Hx Family Respiratory Disorders: No Hx Family Cancer: No Hx Family GI Disorders: No Hx Family Endocrine Disorder: No Hx Family Neuromuscular Disorders: No Hx Family Neurologic Disorders: No Hx Family HEENT Disorders: No Hx Family Autoimmune Disorders: No Father Adopted: No Living Status: Hx Family Cardiac Disorders: Yes ([place]) Hx Family Respiratory Disorders: No Hx Family Cancer: No Hx Family GI Disorders: No Hx Family Endocrine Disorder: No Hx Family Neuromuscular Disorders: No Hx Family Neurologic Disorders: No Hx Family HEENT Disorders: No Hx Family Autoimmune Disorders: No Brother Living Status: Still Living Hx Family Cardiac Disorders: Yes Hx Family Respiratory Disorders: No Hx Family Endocrine Disorder: Yes Internal Medicine - H&P: Meds Ranitidine HCl [Zantac] 150 mg PO HS 09/19/15 [History] Renal Vitamin [Renal Caps Softgel] 1 mg PO DAILY 06/30/17 [History] Acetaminophen [Tylenol] 650 mg PO Q6HR PRN #20 tab 07/10/17 [Rx] Calcium Acetate [Phos-LO] 667 mg PO TIDWM 10/17/17 [History] Ferrous Sulfate 325 mg PO DAILY 11/14/17 [History] Diltiazem [Cardizem] 30 mg PO Q6HR tablet 12/15/17 [Rx] Gabapentin [Neurontin] 100 mg PO TID #30 capsule 12/15/17 [Rx] Ipratropium/Albuterol Neb [Duoneb] 3 ml IH [id number] PRN inhsol 12/15/17 [Rx] Nitroglycerin 0.4 mg SL Q5MIN PRN tab.subl 12/15/17 [Rx] traZODone [TraZODone] 25 mg PO HS 02/08/18 [History] Cephalexin [Keflex] 03/23/18 [History] Cholecalciferol (Vitamin D3) [Vitamin D3] 03/23/18 [History] Sulfamethoxazole/Trimeth DS [Bactrim Ds] 03/23/18 [History] 3 Allergy/AdvReac Type Severity Reaction Status Date / Time codeine AdvReac Severe Vomiting Verified 01/13/18 07:37 naproxen [From Naprosyn] AdvReac Severe Vomiting Verified 01/13/18 07:37 All Systems PM: A 10-system review of systems was performed and is negative for pertinent findings except as documented above in the HPI. - Constitutional Constitutional: fatigue, fever(s), lethargy, weakness, no chills, no excessive sweating, no night sweats - EENT Eyes: no change in vision, no discharge, no pain, no photophobia Ears: no ear discharge, no ear pain, no tinnitus Nose, mouth and throat: no dysphagia, no nasal discharge, no neck pain, no sore throat - Cardiovascular Cardiovascular ROS IM: chest pain, no diaphoresis, no dyspnea, no edema, no lightheadedness, no orthopnea, no palpitations, no paroxysmal nocturnal dyspnea , no syncope - Respiratory Respiratory: pain on inspiration, chest congestion, no cough, no dyspnea, no hemoptysis, no dyspnea on exertion, no wheezing, no excessive phlegm production , no change in phlegm color - Gastrointestinal Gastrointestinal: no abdominal pain, no diarrhea, no hematemesis, no hematochezia, no melena, no nausea, no vomiting - Genitourinary Genitourinary: no change in urinary stream, no dysuria, no flank pain, no hematuria - Musculoskeletal Musculoskeletal ROS IM: no numbness, no tingling - Integumentary Integumentary IM: erythema, rash, no unusual bruising - Neurological Neurological ROS: no confusion, no convulsions, no focal weakness, no numbness, no tingling, no tremor(s) - Hematologic/Lymphatic Hematologic/Lymphatic: no easy bruising - Constitutional Vitals: Temp Pulse Resp BP Pulse Ox 100.5 F H 100 18 112/63 94 03/24/18 00:44 03/24/18 00:44 03/24/18 00:44 03/24/18 00:44 03/24/18 00:44 General appearance: Present: cooperative, disheveled, A&O X 3, no acute distress , underweight, answers questions appropriately Exam: patient is older appearing than stated age - Head Head exam: Present: atraumatic, normocephalic - Eye Eye exam: Present: PERRL, conjuntiva pink, sclera anicteric Pupils: Present: PERRL - Neck Neck exam general surgery: Present: supple, trachea midline. Absent: lymphadenopathy - Respiratory Respiratory exam: Present: chest wall tenderness, prolonged expiratory phase, wheezes. Absent: accessory muscle use, rales, respiratory distress, rhonchi Additional comments: Patient has diffuse wheezing, with much transmitted sounds - Expanded Respiratory Exam Location: wheezes: Lower, Upper, Right, Left - Cardiovascular Cardiovascular exam: Present: tachycardia. Absent: diastolic murmur, gallop, rubs, systolic murmur - GI/Abdominal GI/Abdominal exam: Present: hypoactive bowel sounds, soft, no peritoneal signs. Absent: distended, firm, guarding, hernia, rebound, rigid, splenomegaly, tenderness - Extremities Exam Extremities exam: Present: tenderness (BLE tenderness to light touch. Diffuse excoriation bilaterally.), warm, radial pulses palpable and symmetrical. Absent : calf tenderness, cyanotic, pedal edema - Neurological Exam Neurological exam: Present: CN II-XII intact, oriented X3, no focal deficits. Absent: pronater drift, facial droop, speech deficit - Skin Skin exam: Present: dry, intact - Assessment and plan (1) COPD exacerbation Current Visit: Yes Status: Acute Assessment and plan: Patient has well known hx of COPD exacerbation, last hospitalization 02/2018. ABG at [facility] showed well compensated. Patient has quite a bit of wheezing on exam but could be baseline. Currently patient is on 3L O2 which her home dose. Patient received solumederol 125 at [facility]. Will treat for COPD exacerbation - SpO2 goal 88-92%; provide respiratory support - duonebs - solumederol 60 TID - levaquin Day 1 - CT chest (2) Bilateral leg pain Current Visit: Yes Status: Acute Assessment and plan: 4 day hx of bilateral leg pain with fever, and tachycardic at [place]. Patient states that she has had cellulitis only in her left leg in the past, but per chart review patient has had bilateral leg pain chronically in the past. 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 Will treat patient for bilateral cellulitis. Patient is high risk due to multiple comorbidities, will monitor for sepsis. - start precautions - cloesly follow Vitals - treat with levaquin (3) Abdominal pain Current Visit: Yes Status: Chronic Assessment and plan: Patient has chronic abdominal pain w/ colostomy bag. Patient does not have acute abdomen or surgical abd on exam. Will continue to monitor ostomy closely. Qualifiers: Abdominal location: lower abdomen, unspecified Qualified Code(s): R10.30 - Lower abdominal pain, unspecified (4) Anemia Current Visit: Yes Status: Chronic Assessment and plan: hgb at [facility] 10.1, baseline ~9. Will continue to follow. Qualifiers: Anemia type: unspecified type Qualified Code(s): D64.9 - Anemia, unspecified (5) Atrial fibrillation Current Visit: Yes Status: Chronic Assessment and plan: Patient is tachy but has regular rhythm. will continue home rx. Qualifiers: Atrial fibrillation type: chronic Qualified Code(s): I48.2 - Chronic atrial fibrillation (6) Chest pain Current Visit: Yes Status: Acute Assessment and plan: chronic. patient is high risk, will trend trops. Pain is not acute but PERC is 2, WELL's Criteria is 1.5 for tachy at [place]. At [place], HR is 92, WELL's is 0. Will not further workup at this time for PE but patient is high risk. Qualifiers: Chest pain type: unspecified Qualified Code(s): R07.9 - Chest pain, unspecified (7) Colostomy care Current Visit: Yes Status: Chronic Assessment and plan: chronic colostomy bag. continue to monitor and drain. (8) ESRD on dialysis Current Visit: Yes Status: Chronic Assessment and plan: Patient is ESRD on HD. Continued patient's renal vitamins. patient is also on weekly aranesp but unsure of day. Currently Cr and GFR are stable and better than normal. - consult nephrology in the AM for HD (9) Goals of care, counseling/discussion Current Visit: Yes Status: Acute Assessment and plan: Discussed Cardiac Arrest and respiratory failure resuscitation, patient expresses full aggressive treatment. Night nurse witnessed conversation. (10) HTN (hypertension) Current Visit: Yes Status: Chronic Assessment and plan: currently controlled, continue home rx Qualifiers: Hypertension type: essential hypertension Qualified Code(s): I10 - Essential (primary) hypertension (11) Tobacco abuse Current Visit: Yes Status: Chronic Assessment and plan: educated patient on smoking cessation. patient not interested (12) Cellulitis Current Visit: Yes Status: Acute Assessment and plan: see above Qualifiers: Qualified Code(s): L03.119 - Cellulitis of unspecified part of limb (13) Hypothyroid Current Visit: Yes Status: Chronic Assessment and plan: per chart review from last visit in February 2018, home dose is 300 mcg. Ordered home Rx, but before administering contact niece to confirm dosing. Qualifiers: Hypothyroidism type: unspecified Qualified Code(s): E03.9 - Hypothyroidism , unspecified (14) DVT prophylaxis Current Visit: Yes Status: Acute Assessment and plan: SQ heparin - Time Spent With Patient Total time spent is greater than 50% in coordination of care (as documented) at patient's floor/unit and/or counseling patient:
[2018-03-24] MEDS ORDERED: Nitroglycerin 0.4 MG TAB.SUBL SL PRN (02:08)
[2018-03-24] MEDS ORDERED: levoFLOXacin 750 MG TABLET PO ONE (02:15)
[2018-03-24] MEDS ORDERED: Benzonatate 100 MG CAPSULE PO PRN (02:17)
[2018-03-24 02:27] LABS: Basophils % 0.4 %; Eosinophils % 0.4 %; Hemoglobin 9.9 g/dL (11.5-15.4)
[2018-03-24 02:29] LABS: Hematocrit 31.7 % (35.3-44.9); Red Blood Count 2.98 M/mcL (3.82-4.97)
[2018-03-24 02:30] LABS: Immature Granulocytes % 0.7 % (0-4); Immature Platelets 4.5 % (1.1-6.1); Lymphocytes # 0.3 K/mcL (0.6-4.6); Lymphocytes % 9.5 %; Mean Corpuscular HGB Conc 31.2 g/dL (31.6-35.5); Mean Corpuscular Hemoglobin 33.2 pg (28.0-33.3); Mean Corpuscular Volume 106.4 fL (83.0-100.0); Mean Platelet Volume 11.4 fL (9.4-12.4); Monocytes % 1.1 %; Neutrophils # 2.5 K/mcL (1.6-8.9); Red Cell Distribution Width 15.8 % (11.5-14.5); Segmented Neutrophils % 87.9 %
[2018-03-24 02:34] LABS: Platelet Count 51 K/mcL (140-400)
[2018-03-24 02:40] LABS: Troponin I < 0.03 ng/mL (< 0.04)
[2018-03-24] MEDS: Acetaminophen 325 MG TABLET PO PRN ×2 (02:40→12:22)
[2018-03-24] MEDS: Ipratropium/Albuterol Neb 3 ML IH SCH ×4 (03:37→21:45)
[2018-03-24 03:52] LABS: Alanine Aminotransferase 7 Units/L (7-52); Albumin 3.5 g/dL (3.5-5.7); Albumin/Globulin Ratio 1.3 (1.1-2.2); Alkaline Phosphatase 55 Units/L (34-104); Aspartate Amino Transferase 19 Units/L (13-39); BUN/Creatinine Ratio 6 (6-26); Bilirubin,Total 0.4 mg/dL (0.3-1.0); Blood Urea Nitrogen 28 mg/dL (8-23); Calcium 7.9 mg/dL (8.6-10.3); Carbon Dioxide 21 mEq/L (23-29); Chloride 104 mEq/L (98-107); Globulin 2.6 g/dL (2.4-3.5); Glucose 81 mg/dL (70-105); Osmolality,Calculated 293 (280-300); Potassium 4.9 mEq/L (3.5-5.1); Sodium 139 mEq/L (136-145); Total Protein 6.1 g/dL (6.4-8.9); eGFR For African Americans 11 (> 60); eGFR For Non-African Americans 9 (> 60)
[2018-03-24] MEDS ORDERED: *HR* Heparin 5,000 UNIT/ML VIAL SQ SCH (06:00)
[2018-03-24] MEDS: Cholecalciferol (D-3) 1,000 UNIT TABLET PO SCH (08:03)
[2018-03-24] MEDS: Calcium Acetate 667 MG CAPSULE PO SCH ×3 (08:03→17:00)
[2018-03-24] MEDS: Renal Vitamin 1 MG CAPSULE PO SCH (08:03)
[2018-03-24] MEDS: Gabapentin 100 MG CAPSULE PO SCH ×3 (08:03→21:20)
[2018-03-24] MEDS: methylPREDNISolone 125 MG/2 ML VIAL IVP SCH ×2 (08:03→17:00)
[2018-03-24] MEDS: Nicotine 14 MG PATCH.TD24 TD SCH (08:03)
--- NOTE | 2018-03-24 09:40 | Nephrology Consult Note ---
Date of Encounter: 03/24/18 Time of Encounter: 09:38 Assessment and Plan (1) ESRD on dialysis Current Visit: Yes Status: Chronic Plan for HD tomorrow Continue renal diet Strict I/Os-ordered Avoid nephrotoxins if possible (2) Bilateral leg pain Current Visit: Yes Status: Acute Ongoing chronic leg pain per hospitalist (3) Hypocalcemia Current Visit: No Status: Chronic Ca+ 7.9 Chronic hypocalcemia History of Present Illness - Reason for Consult Consult date: 03/24/18 - Chief Complaint ESRD on HD, leg pain - History of Present Illness Ms Parra is a 72 year old lady well known to our practice with a PMH of asthma , atrial fibrillation, COPD, GERD, HTN, ESRD on HD, and thyoid disease who was admitted for ongoing leg pain. Patient was at [facility] yesterday for her regular dialysis treatment. Nephrology has been consulted to manage her HD while hospitalized. Past Med Surg Social Fam HX - Past Medical History Medical history: asthma, atrial fibrillation, COPD, GERD, hypertension, renal disease, thyroid disease, other Psychiatric history: no psych history - Past Surgical History Surgical History: appendectomy, cholecystectomy, colostomy, herniorrhaphy, hysterectomy, other - Social History Smoking Status: Current every day smoker Packs per day: 0.3 Smokeless Tobacco Status: No Alcohol use: none Drug use: none - Family History Mother Adopted: No Living Status: Hx Family Cardiac Disorders: Yes ([place]/ Stroke) Hx Family Respiratory Disorders: No Hx Family Cancer: No Hx Family GI Disorders: No Hx Family Endocrine Disorder: No Hx Family Neuromuscular Disorders: No Hx Family Neurologic Disorders: No Hx Family HEENT Disorders: No Hx Family Autoimmune Disorders: No Father Adopted: No Living Status: Hx Family Cardiac Disorders: Yes ([place]) Hx Family Respiratory Disorders: No Hx Family Cancer: No Hx Family GI Disorders: No Hx Family Endocrine Disorder: No Hx Family Neuromuscular Disorders: No Hx Family Neurologic Disorders: No Hx Family HEENT Disorders: No Hx Family Autoimmune Disorders: No Brother Living Status: Still Living Hx Family Cardiac Disorders: Yes Hx Family Respiratory Disorders: No Hx Family Endocrine Disorder: Yes Medications and Allergies Ranitidine HCl [Zantac] 150 mg PO HS 09/19/15 [History] Renal Vitamin [Renal Caps Softgel] 1 mg PO DAILY 06/30/17 [History] Acetaminophen [Tylenol] 650 mg PO Q6HR PRN #20 tab 07/10/17 [Rx] Calcium Acetate [Phos-LO] 667 mg PO TIDWM 10/17/17 [History] Ferrous Sulfate 325 mg PO DAILY 11/14/17 [History] Diltiazem [Cardizem] 30 mg PO Q6HR tablet 12/15/17 [Rx] Gabapentin [Neurontin] 100 mg PO TID #30 capsule 12/15/17 [Rx] Nitroglycerin 0.4 mg SL Q5MIN PRN tab.subl 12/15/17 [Rx] traZODone [TraZODone] 25 mg PO HS 02/08/18 [History] Cephalexin [Keflex] 500 mg PO TID 03/23/18 [History] Sulfamethoxazole/Trimeth DS [Bactrim Ds] 1 tab PO BID 03/23/18 [History] Calcitriol [Rocaltrol] 0.25 mcg PO DAILY 03/24/18 [History] Levothyroxine Sodium [Synthroid] 300 mcg PO DAILY 03/24/18 [History] 3 Allergy/AdvReac Type Severity Reaction Status Date / Time codeine AdvReac Severe Vomiting Verified 01/13/18 07:37 naproxen [From Naprosyn] AdvReac Severe Vomiting Verified 01/13/18 07:37 Review of Systems All Systems: reviewed and no additional remarkable complaints except as stated Constitutional: no fever(s), no malaise Cardiovascular: no chest pain, no leg edema Respiratory: no dyspnea Gastrointestinal: no nausea, no vomiting Integumentary: no rash Neurological: no behavioral changes Exam - Vital Signs Vital signs: Initial Vital Signs Temp Pulse Resp BP Pulse Ox 100.5 F H 100 18 112/63 94 03/24/18 00:44 03/24/18 00:44 03/24/18 00:44 03/24/18 00:44 03/24/18 00:44 Vital Signs - Last 8 Hours Temp Pulse Resp BP Pulse Ox 03/24/18 08:14 98.1 F 78 18 114/68 96 03/24/18 03:37 20 96 03/24/18 03:06 100.2 F H 89 16 114/61 96 03/24/18 02:04 92 Intake and Output 03/23/18 03/24/18 03/24/18 23:59 07:59 15:59 Other: Weight 64 kg Patient Weight 03/24/18 23:59 Weight 64 kg - General Appearance General appearance: chronically ill, frail EENT: ATNC, mucous membranes moist, hearing intact, vision intact Neck: supple Respiratory: wheezing ('normal' for patient), course breath sounds, rhonchi Cardiology: no edema, normal S1, normal S2 Gastrointestinal: no tenderness, no guarding Neurologic: alert and oriented x3 Results - Lab Results 03/24/18 01:55 03/24/18 01:55 Most recent lab results Calcium 7.9 mg/dL (8.6-10.3) L 03/24/18 01:55 Consult Discharge Plan - Plan Referrals: Na Johansen, DIRECTOR OF RETAIL MERCHANDISING [Primary Care Provider] -
[2018-03-24] MEDS: Fluticasone Propionate Nasal 50 MCG/SPRAY BOTTLE NS SCH (12:23)
[2018-03-24] MEDS: *HR* HYDROcodone/Acet 5/325 mg TABLET PO PRN (19:00)
--- NOTE | 2018-03-24 19:55 | Internal Med Progress Note ---
Date of Encounter: 03/24/18 Time of Encounter: 11:50 - Assessment and plan (1) Tobacco abuse Current Visit: Yes Status: Chronic Assessment and plan: Patient denies desire for smoking cessation. Nicotine replacement therapy ordered. (2) Abdominal pain Current Visit: Yes Status: Chronic Assessment and plan: Chronic. Patient has colostomy. Abdomen is rounded, firm, nontender. Patient denies change in frequency or consistency of stool. Vital signs are stable. Patient has a leukocytosis, tachycardia. She is normotensive. Patient did have fever overnight at resolved. CT abdomen from February, shows a normal aorta, gallbladder surgically absent liver, pancreas, spleen, adrenals have no acute findings. There is a mild pancreatic duct enlargement measuring 5 mm remains unchanged from prior exam. There is no focal pancreatic abnormality, the kidneys are small and bilateral renal cysts are present. Also noted is sequela of multiple bowel surgeries with left-sided colostomy. Small fat-containing peristomal hernia. Mild diverticulosis is noted there is no ascites, no free air, nonspecific small retroperitoneal lymph nodes noted. We will continue to monitor patient closely. Qualifiers: Abdominal location: lower abdomen, unspecified Qualified Code(s): R10.30 - Lower abdominal pain, unspecified (3) Chest pain Current Visit: Yes Status: Acute Assessment and plan: Chest pain is chronic. Well's score is 0. Chest CT showed diffuse tree and bud nodularity most prominent left lower lobe, potentially infectious bronchiolitis or respiratory bronchiolitis. There is mild to moderate bronchial wall thickening potentially due to bronchitis, RAD, or pulmonary vascular congestion. There is minimal interstitial pulmonary edema potentially due to congestive heart failure given her mild cardiomegaly, trace bilateral pleural effusions, and at least moderate anasarca. Troponins are negative. During evaluation today, patient denied chest pain and reported productive cough and wheezing. Continue telemetry and COPD treatment Continue to monitor pt and treat chest pain prn Monitor labs and vitals. Qualifiers: Chest pain type: unspecified Qualified Code(s): R07.9 - Chest pain, unspecified (4) Colostomy care Current Visit: Yes Status: Chronic Assessment and plan: Colostomy is chronic. Continue routine colostomy treatment. (5) Hypothyroid Current Visit: Yes Status: Chronic Assessment and plan: Chronic. Continue home medication once dose is verified. Qualifiers: Hypothyroidism type: unspecified Qualified Code(s): E03.9 - Hypothyroidism , unspecified (6) Anemia Current Visit: Yes Status: Chronic Assessment and plan: Patient with hemoglobin 9.9. Appears to be stable and right around patient's baseline. Likely anemia of chronic disease. No obvious signs of bleeding. Vitals are stable Continue to monitor H&H daily. Qualifiers: Anemia type: unspecified type Qualified Code(s): D64.9 - Anemia, unspecified (7) Atrial fibrillation Current Visit: Yes Status: Chronic Assessment and plan: Tachycardia that was present on admission has resolved. Continue Cardizem 30 mg by mouth every hours. Continue telemetry. Qualifiers: Atrial fibrillation type: chronic Qualified Code(s): I48.2 - Chronic atrial fibrillation (8) COPD exacerbation Current Visit: Yes Status: Acute Assessment and plan: Patient's last admission for COPD exacerbation was in February,. Patient with wheezing heard in anterior and posterior lung stein as well as productive cough. Patient is at her baseline O2 use. Continue duo nebs, Tessalon Perles, Mucinex, Levaquin 500 mg every 48 hours by mouth, Solu-Medrol 60 mg every 8H IVP. Decreased Solu-Medrol to 40 mg every [address] 03/24/18 02:05 IMPRESSION: 1. Diffuse tree-in-bud nodularity most prominent in the left lower lobe, potentially infectious bronchiolitis or respiratory bronchiolitis (in the setting of tobacco use). 2. Mild to moderate bronchial wall thickening potentially due to bronchitis, reactive airways disease, and/or pulmonary vascular congestion. 3. Minimal interstitial pulmonary edema potentially related to congestive heart failure given mild cardiomegaly, trace bilateral pleural effusions, and at least moderate anasarca. D/ / Rob Schneider MD / Rob Schneider MD Interpreting Provider: Rob Schneider MD (9) ESRD on dialysis Current Visit: Yes Status: Chronic Assessment and plan: Patient is ESRD on HD. Friday, Friday, Friday. Serum creatinine 4.71, GFR is 19. This is improved over patient's normal baseline. Patient is been evaluated by nephrology, HD tomorrow. Continue renal vitamins and renal diet Strict intake and output ordered. Avoid nephrotoxins. (10) Bilateral leg pain Current Visit: Yes Status: Acute Assessment and plan: Patient being treated for cellulitis and right lower extremity. Patient reports history of multiple incidents of cellulitis in left leg. Review of chart shows chronic bilateral leg pain. Patient with redness and pain to the medial left lower extremity. Continue pain medication. Continue Levaquin. Patient had fever overnight 03/23- that resolved. She is not tachycardic, remains afebrile, normotensive. No signs of sirs or sepsis. Continue to monitor vitals and labs for changes. (11) HTN (hypertension) Current Visit: Yes Status: Chronic Assessment and plan: Chronic. Well controlled. Continue home medications. Qualifiers: Hypertension type: essential hypertension Qualified Code(s): I10 - Essential (primary) hypertension (12) Cellulitis Current Visit: Yes Status: Acute Assessment and plan: Plan as above. Qualifiers: Site of cellulitis: extremity Site of cellulitis of extremity: lower extremity Laterality: left Qualified Code(s): L03.116 - Cellulitis of left lower limb (13) DVT prophylaxis Current Visit: Yes Status: Acute Assessment and plan: Heparin subcutaneous twice a day. (14) Goals of care, counseling/discussion Current Visit: Yes Status: Acute Assessment and plan: Discussed Cardiac Arrest and respiratory failure resuscitation, patient expresses full aggressive treatment. Night nurse witnessed conversation. - Time Spent With Patient Total time spent is greater than 50% in coordination of care (as documented) at patient's floor/unit and/or counseling patient: - Subjective Interval history: Patient was seen and assessed at bedside at 11:50 AM. Patient was tearful is about pain that she had an appointment with social security in the morning and that she needed to leave because she was worried that they were going to take her money from her. resident services manager discussed this with patient and patient was calm. Her sicca call later in the day from primary RN he states that patient was having leg pain bilaterally. [place] was ordered 1. Patient denied headache, nausea, vomiting, abdominal pain, chest pain or shortness of breath. She did report bilateral lower extremity pain for several days, reports lengthy history of cellulitis to right lower extremity, this is the first time for left lower extremity. - Constitutional Vitals: Temp Pulse Resp BP Pulse Ox 99.0 F 78 16 129/73 95 03/24/18 18:38 03/24/18 18:38 03/24/18 18:38 03/24/18 18:38 03/24/18 18:38 General appearance: Present: cooperative, disheveled, A&O X 3, no acute distress , underweight, answers questions appropriately - Head Head exam: Present: atraumatic, normal inspection, normocephalic - Eye Eye exam: Present: normal appearance, conjuntiva pink, sclera anicteric - Neck Neck exam general surgery: Present: normal inspection, supple, trachea midline. Absent: lymphadenopathy, tenderness - Respiratory Respiratory exam: Present: CTAB. Absent: accessory muscle use, chest wall tenderness, rales, respiratory distress, rhonchi, wheezes - Cardiovascular Cardiovascular exam: Present: RRR, +S1, +S2. Absent: diastolic murmur, gallop, rubs, systolic murmur - GI/Abdominal GI/Abdominal exam: Present: normal bowel sounds, soft. Absent: distended, hepatomegaly, tenderness - Extremities Exam Extremities exam: Present: tenderness, warm, radial pulses palpable and symmetrical. Absent: calf tenderness, cyanotic, pedal edema - Neurological Exam Neurological exam: Present: alert, oriented X3, no focal deficits. Absent: altered, facial droop, speech deficit - Skin Skin exam: Present: dry, intact, normal color, warm. Absent: rash Internal Medicine: Result - Labs CBC & Chem 7: 03/24/18 01:55 03/24/18 01:55 Labs: Short CBC 03/24/18 Range/Units 01:55 WBC 2.8 L (4.3-11.1) K/mcL Hgb 9.9 L (11.5-15.4) g/dL Hct 31.7 L (35.3-44.9) % Plt Count 51 L (140-400) K/mcL Neutrophils # 2.5 (1.6-8.9) K/mcL BMP 03/24/18 01:55 Sodium 139 Potassium 4.9 Chloride 104 Carbon Dioxide 21 L BUN 28 H Creatinine 4.71 H Glucose 81 Calcium 7.9 L Cardiac Enzymes 03/24/18 03/24/18 Range/Units 01:55 08:00 Troponin I < 0.03 < 0.03 (< 0.04) ng/mL Liver Function 03/24/18 Range/Units 01:55 Total Bilirubin 0.4 (0.3-1.0) mg/dL AST 19 (13-39) Units/L ALT 7 (7-52) Units/L Alkaline Phosphatase 55 (34-104) Units/L Albumin 3.5 (3.5-5.7) g/dL - Impressions Impressions Chest CT 03/24/18 02:05 IMPRESSION: 1. Diffuse tree-in-bud nodularity most prominent in the left lower lobe, potentially infectious bronchiolitis or respiratory bronchiolitis (in the setting of tobacco use). 2. Mild to moderate bronchial wall thickening potentially due to bronchitis, reactive airways disease, and/or pulmonary vascular congestion. 3. Minimal interstitial pulmonary edema potentially related to congestive heart failure given mild cardiomegaly, trace bilateral pleural effusions, and at least moderate anasarca. D/ / Rob Schneider MD / Rob Schneider MD Interpreting Provider: Rob Schneider MD Consult Discharge Plan - Plan Referrals: Na Johansen, RHEUMATOLOGY SPECIALIST [Primary Care Provider] - 03/31/18 11:00 am
[2018-03-24] MEDS ORDERED: Famotidine 20 MG TABLET PO SCH (21:00)
[2018-03-24] MEDS ORDERED: traZODone 50 MG TABLET PO SCH (21:00)
[2018-03-25] MEDS: Ipratropium/Albuterol Neb 3 ML IH SCH ×3 (03:21→16:07)
[2018-03-25] MEDS: *HR* HYDROcodone/Acet 5/325 mg TABLET PO PRN (03:33)
[2018-03-25] MEDS ORDERED: MethylPREDNISolone 40 MG/ML VIAL IVP SCH (06:00)
[2018-03-25] MEDS ORDERED: 0.9 % Sodium Chloride 2,000 ML ONE (06:13)
[2018-03-25 06:28] LABS: Red Cell Distribution Width 15.5 % (11.5-14.5)
[2018-03-25 06:30] LABS: Hematocrit 29.7 % (35.3-44.9); Hemoglobin 9.3 g/dL (11.5-15.4); Immature Platelets 4.2 % (1.1-6.1); Mean Corpuscular HGB Conc 31.3 g/dL (31.6-35.5); Mean Corpuscular Hemoglobin 32.9 pg (28.0-33.3); Mean Corpuscular Volume 104.9 fL (83.0-100.0); Red Blood Count 2.83 M/mcL (3.82-4.97)
[2018-03-25] MEDS ORDERED: 0.9 % Sodium Chloride 250 ML IVC PRN (06:38)
[2018-03-25 06:44] LABS: Calcium 7.5 mg/dL (8.6-10.3); Potassium 4.5 mEq/L (3.5-5.1)
[2018-03-25] MEDS ORDERED: 0.9 % Sodium Chloride 1,000 ML PRIME SCH (06:45)
[2018-03-25] MEDS: Gabapentin 100 MG CAPSULE PO SCH (10:39)
[2018-03-25] MEDS: Renal Vitamin 1 MG CAPSULE PO SCH (10:39)
[2018-03-25] MEDS: Calcium Acetate 667 MG CAPSULE PO SCH ×2 (10:39→12:31)
[2018-03-25] MEDS: Cholecalciferol (D-3) 1,000 UNIT TABLET PO SCH (10:40)
[2018-03-25] MEDS: Nicotine 14 MG PATCH.TD24 TD SCH (10:40)
--- NOTE | 2018-03-25 11:02 | Nephrology Progress Note ---
Date of Encounter: 03/25/18 Time of Encounter: 08:20 - Assessment and Plan (1) ESRD (end stage renal disease) on dialysis Current Visit: No Status: Chronic Dialysis note: HD today. VSS and aiming to target her edema. I also called the outpt [facility] unit in [place] and placed her first on the Wait List for a mid day dialysis schedule; which looks to be in early May there will be a new Friday//Friday shift available. She voiced appreciation. Subjective Principal diagnosis: ESRD Interval history: Pt was s/e while on HD. She affirmed having more ankle swelling and requested more UF today. She affirmed having a cough (which as been chronic she reported) . She also requested to change her outpt HD timing to earlier in the day (she has been starting HD "at night" she said. Objective - Vital Signs Vital signs: Vital Signs Temp Pulse Resp BP Pulse Ox 03/25/18 09:50 97.6 F 15 133/66 03/25/18 09:40 142/75 03/25/18 09:25 133/60 03/25/18 09:10 130/76 03/25/18 08:55 131/55 03/25/18 08:40 131/60 03/25/18 08:25 134/66 03/25/18 08:10 128/66 03/25/18 07:55 126/67 03/25/18 07:40 131/53 03/25/18 07:25 121/65 03/25/18 07:10 125/62 03/25/18 06:55 125/66 03/25/18 06:40 98.0 F 17 125/67 03/25/18 03:27 98.0 F 79 16 113/69 98 03/25/18 03:21 17 98 03/24/18 22:57 99.1 F 86 16 140/81 96 03/24/18 21:45 16 95 03/24/18 18:38 99.0 F 78 16 129/73 95 03/24/18 15:55 17 96 03/24/18 14:55 98.6 F 73 17 142/78 96 03/24/18 11:15 98.4 F 79 18 125/70 90 Intake and Output 03/24/18 03/25/18 03/25/18 23:59 07:59 15:59 Intake Total 600 / 600 120 / 120 Output Total 950 / 950 100 / 100 2600 / 2600 Balance -950 / -950 500 / 500 -2480 / -2480 Intake: Oral 0 / 0 120 / 120 Intake, Rinseback and Flushes 600 / 600 Output: Urine 0 / 0 Stool 950 / 950 100 / 100 Total Dialysis (HD) Output 2600 / 2600 Other: Meal Breakfast Percent of Meal Consumed 60% Stool Size Moderate Small Stool Consistency loose loose liquid liquid Stool Color Brown Brown Weight 64 kg Hemodialysis Net Fluid Removed 1078 2000 (mL) Patient Weight 03/25/18 23:59 Weight 64 kg - General Appearance General appearance: Present: appears started age, cachectic, chronically ill, frail EENT: Present: ATNC, PERRL, mucous membranes dry Neck: Present: supple Respiratory: Present: rales, course breath sounds Cardiology: Present: edema (tight ankles b/l), normal S1, normal S2 Dialysis Vascular Access: Arteriovenous Fistula (LUE AVF) thrill: Yes bruit: Yes Gastrointestinal: Present: no tenderness Integumentary: Present: warm and dry Neurologic: Present: no focal deficit, no asterixis, alert and oriented x3 Musculoskeletal: Present: no erythema, no cyanosis Psychiatric: Present: mood/affect appropriate, cooperative - Lab 03/25/18 05:59 03/25/18 05:59 Most recent lab results Calcium 7.5 mg/dL (8.6-10.3) L 03/25/18 05:59 Consult Discharge Plan - Plan Referrals: Na Johansen, SUPPLY CHAIN DIRECTOR [Primary Care Provider] - 03/31/18 11:00 am
[2018-03-25 11:17] VITALS: BP 134/69
[2018-03-25] MEDS: Fluticasone Propionate Nasal 50 MCG/SPRAY BOTTLE NS SCH (12:19)
--- NOTE | 2018-03-25 15:41 | Discharge Summary ---
- NOTES TO OUTPATIENT PROVIDER Notes to Outpatient Provider: Pt was admitted for COPD exacerbation, LLE cellulitis. Pt still has cough but has improved and states that she is ready to go home and feels better. She was discharged with Levaquin 500mg po q48 hrs and Prednisone taper. Date of Encounter: 03/25/18 Time of Encounter: 10:20 - Discharge Diagnosis (1) COPD exacerbation Priority: Primary Status: Acute Assessment and Plan: Patient's last admission for COPD exacerbation was in February,. Patient with faint wheezing heard in posterior bases, Improved from yesterday. Patient is at her baseline O2 use. Continue duo nebs, Tessalon Perles, Mucinex, Levaquin 500 mg every 48 hours by mouth, prednisone taper. follow with PCP for reevaluation in 3-[address] 03/24/18 02:05 IMPRESSION: 1. Diffuse tree-in-bud nodularity most prominent in the left lower lobe, potentially infectious bronchiolitis or respiratory bronchiolitis (in the setting of tobacco use). 2. Mild to moderate bronchial wall thickening potentially due to bronchitis, reactive airways disease, and/or pulmonary vascular congestion. 3. Minimal interstitial pulmonary edema potentially related to congestive heart failure given mild cardiomegaly, trace bilateral pleural effusions, and at least moderate anasarca. D/ / Rob Schneider MD / Rob Schneider MD Interpreting Provider: Rob Schneider MD (2) Tobacco abuse Priority: Secondary Status: Chronic Assessment and Plan: Patient denies need for nicotine replacement therapy after discharge. (3) Abdominal pain Priority: Secondary Status: Chronic Assessment and Plan: Chronic. Patient has colostomy. Continue routine colostomy care at home. Qualifiers: Abdominal location: lower abdomen, unspecified Qualified Code(s): R10.30 - Lower abdominal pain, unspecified (4) Chest pain Priority: Secondary Status: Acute Assessment and Plan: Chest pain is chronic, denies today. Well's score is 0. Plan as above. Qualifiers: Chest pain type: unspecified Qualified Code(s): R07.9 - Chest pain, unspecified (5) Colostomy care Priority: Secondary Status: Chronic Assessment and Plan: Per history. Continue routine colostomy treatment. (6) Hypothyroid Priority: Secondary Status: Chronic Assessment and Plan: Chronic. Continue home medication. Qualifiers: Hypothyroidism type: unspecified Qualified Code(s): E03.9 - Hypothyroidism , unspecified (7) Anemia Priority: Secondary Status: Chronic Assessment and Plan: Patient with hemoglobin 9.3. Stable and at patient's baseline. Likely anemia of chronic disease. No obvious signs of bleeding. Vitals are stable Qualifiers: Anemia type: unspecified type Qualified Code(s): D64.9 - Anemia, unspecified (8) Atrial fibrillation Priority: Secondary Status: Chronic Assessment and Plan: NSR on monitor. Rate in the70s and 80s. Continue Cardizem 30 mg by mouth every hours. Continue telemetry. Qualifiers: Atrial fibrillation type: chronic Qualified Code(s): I48.2 - Chronic atrial fibrillation (9) ESRD on dialysis Priority: Secondary Status: Chronic Assessment and Plan: ESRD on HD. Friday, Friday, Friday schedule. Serum creatinine 6.59, GFR is 6. This is improved over patient's normal baseline. HD today, per nephrology note, pt had more ankle swelling and requested more UF today. Continue renal vitamins and renal diet, fluid restriction at home. Avoid nephrotoxins. (10) Bilateral leg pain Priority: Secondary Status: Chronic Assessment and Plan: Chronic BLE pain. Pt being treated for cellulitis LLE. Continue pain medication and po Levaquin. Redness and pain improved today, continue plan as above. (11) HTN (hypertension) Priority: Secondary Status: Chronic Assessment and Plan: Chronic. Continue home medications. Qualifiers: Hypertension type: essential hypertension Qualified Code(s): I10 - Essential (primary) hypertension (12) Cellulitis Priority: Secondary Status: Acute Assessment and Plan: Plan as above for BLE leg pain. Qualifiers: Site of cellulitis: extremity Site of cellulitis of extremity: lower extremity Laterality: left Qualified Code(s): L03.116 - Cellulitis of left lower limb (13) DVT prophylaxis Priority: Secondary Status: Acute Assessment and Plan: Heparin (14) Goals of care, counseling/discussion Priority: Secondary Status: Acute Assessment and Plan: Pt is full code. Hospital course: Ms. Parra is a 72 year old female who presented to the emergency department with acute COPD exacerbation. Patient was treated with Tessalon Perles, Mucinex , Levaquin 500 mg by mouth every 48 hours and Solu-Medrol IV. Patient initially stated that she did not want to go home due to leg pain, later primary nurse tells me that patient wants to go home. Patient was discharged with Levaquin for both cellulitis and COPD exacerbation. Patient was also discharged with prednisone taper. Patient is stable and appropriate for discharge. Discharge discussed with: patient - Time Spent with Patient Total time spent providing and/or coordinating discharge services: Less than 30 minutes - Discharge Medications Prescriptions: GuaiFENesin ER [Mucinex] 600 mg PO BID PRN #30 tbbp.12hr PRN Reason: Cough levoFLOXacin [Levaquin] 250 mg PO Q48H #4 tablet predniSONE [PredniSONE] 10 mg PO DAILY #31 tablet Home Medications: Ranitidine HCl [Zantac] 150 mg PO HS 09/19/15 [History] Renal Vitamin [Renal Caps Softgel] 1 mg PO DAILY 06/30/17 [History] Acetaminophen [Tylenol] 650 mg PO Q6HR PRN #20 tab 07/10/17 [Rx] Calcium Acetate [Phos-LO] 667 mg PO TIDWM 10/17/17 [History] Ferrous Sulfate 325 mg PO DAILY 11/14/17 [History] Diltiazem [Cardizem] 30 mg PO Q6HR tablet 12/15/17 [Rx] Gabapentin [Neurontin] 100 mg PO TID #30 capsule 12/15/17 [Rx] Nitroglycerin 0.4 mg SL Q5MIN PRN tab.subl 12/15/17 [Rx] traZODone [TraZODone] 25 mg PO HS 02/08/18 [History] Calcitriol [Rocaltrol] 0.25 mcg PO DAILY 03/24/18 [History] Levothyroxine Sodium [Synthroid] 300 mcg PO DAILY 03/24/18 [History] Fluticasone Propionate Nasal [Flonase] 50 mcg NS DAILY bottle 03/25/18 [Rx] GuaiFENesin ER [Mucinex] 600 mg PO BID PRN #30 tbbp.12hr 03/25/18 [Rx] levoFLOXacin [Levaquin] 250 mg PO Q48H #4 tablet 03/25/18 [Rx] predniSONE [PredniSONE] 10 mg PO DAILY #31 tablet 03/25/18 [Rx] Allergies/Adverse Reactions: 3 Allergy/AdvReac Type Severity Reaction Status Date / Time codeine AdvReac Severe Vomiting Verified 01/13/18 07:37 naproxen [From Naprosyn] AdvReac Severe Vomiting Verified 01/13/18 07:37 Date of admission: 03/24/18 01:33 Primary care physician: Na Johansen CNP Consults: 03/24/18 02:18 Consult to Nephrology [CONS] Routine Consulting Provider: Kidney Katelyn/MAYO/JAYESH/COREY Reason for Consult: HD patient Call Completed: No 03/25/18 06:45 Consult to Dialysis [CONS] ONCE Discharging clinician: Evelin Scott Anticipated date of discharge: 03/25/18 - Constitutional Vitals: Temp Pulse Resp BP Pulse Ox 99.1 F 83 14 134/69 98 03/25/18 11:16 03/25/18 11:16 03/25/18 11:55 03/25/18 11:16 03/25/18 11:55 General appearance: Present: cooperative, disheveled, A&O X 3, no acute distress , underweight, answers questions appropriately - Head Head exam: Present: atraumatic, normal inspection, normocephalic - Eye Eye exam: Present: normal appearance, PERRL, conjuntiva pink, sclera anicteric Pupils: Present: PERRL - Neck Neck exam general surgery: Present: supple, trachea midline. Absent: lymphadenopathy, tenderness - Respiratory Respiratory exam: Present: CTAB, wheezes. Absent: accessory muscle use, chest wall tenderness, rales, rhonchi - Cardiovascular Cardiovascular exam: Present: RRR, +S1, +S2. Absent: diastolic murmur, gallop, rubs, systolic murmur - GI/Abdominal GI/Abdominal exam: Present: distended, normal bowel sounds, soft. Absent: tenderness - Extremities Exam Extremities exam: Present: normal capillary refill, normal inspection, warm, radial pulses palpable and symmetrical. Absent: calf tenderness, cyanotic, pedal edema, tenderness - Neurological Exam Neurological exam: Present: alert, oriented X3, no focal deficits. Absent: facial droop, speech deficit - Skin Skin exam: Present: dry, intact, normal color, warm. Absent: rash - Patient Status Disposition: Home, Self-Care Condition: Fair Functional capacity at discharge: uses cane/walker Overall status at discharge: patient is not back to baseline - Discharge Instructions Instructions: Chronic Obstructive Pulmonary Disease (DC) Follow Up With: Na Johansen CNP [Primary Care Provider] - 03/31/18 11:00 am Additional Instructions: Please follow up with your PCP in the next 3-5 days for a recheck . Return to the ER as needed for any other problems or concerns. Return to your normal activities and diet as tolerated. Take your medications as directed. - Diet and Activity Activity: increase activity as tolerated Diet: advance to your usual diet
[2018-03-26] MEDS ORDERED: levoFLOXacin 500 MG TABLET PO SCH (09:00)
[2018-03-26] MEDS ORDERED: levoFLOXacin 250 MG TABLET PO SCH (16:00)
== END 2018-03-25 17:05 | disposition home or self-care (01) | DRG 140 ==
LOC: 3BNU
PROVIDERS: ADMIT Internal Medicine; ATTEND Family Medicine

== ENCOUNTER 2018-08-17 06:52 | Inpatient (IN) ==
[2018-08-17 08:10] LABS: Lymphocytes % 11.5 %
[2018-08-17 08:11] LABS: Basophils % 0.2 %; Eosinophils % 0.4 %; Hematocrit 29.2 % (35.3-44.9); Hemoglobin 9.7 g/dL (11.5-15.4); Immature Granulocytes % 0.6 % (0-4); Mean Corpuscular HGB Conc 33.2 g/dL (31.6-35.5); Mean Corpuscular Volume 96.4 fL (83.0-100.0); Monocytes # 0.3 K/mcL (0.0-1.3); Monocytes % 3.8 %; Neutrophils # 6.9 K/mcL (1.6-8.9); Red Blood Count 3.03 M/mcL (3.82-4.97); Red Cell Distribution Width 14.8 % (11.5-14.5); Segmented Neutrophils % 83.5 %
[2018-08-17 08:18] LABS: Platelet Count 98 K/mcL (140-400)
[2018-08-17] MEDS ORDERED: Isovue-370 500 ML INFUS..BTL IV ONE (08:31)
--- NOTE | 2018-08-17 08:32 | Emergency Department Note ---
Disposition Clinical Impression: Atypical chest pain, Altered mental status UTI (urinary tract infection) Qualifiers: Urinary tract infection type: acute cystitis Hematuria presence: without hematuria Qualified Code(s): N30.00 - Acute cystitis without hematuria Disposition: Admitted As Inpatient Condition: Fair Chest Pain HPI - General Chief Complaint: ED Chest Pain Stated Complaint: chest pain Time Seen by Provider: 08/17/18 06:55 Source: patient, EMS Limitations: no limitations Vital Signs Reviewed: Yes Nursing Notes Reviewed: Yes - History of Present Illness HPI Narrative: 72-year-old female presents emergency Department with concerns of left-sided chest pain and difficulty breathing. Patient states she has not been able to attend her dialysis sessions over the past week secondary to a malfunctioning AV fistula of the left upper extremity. Patient states she has not been feeling well over the past many months however over the past 24 hours she developed significant left-sided chest pain and difficulty breathing. She also states that she had been having visual hallucinations, seeing her children playing in snow. She states that this is a never occurred to her in the past. Denies fever, chills, nausea, vomiting. Patient does state that the pain is in the left lower chest, is an aching sharp pain which is constant but worse with deep inspiration. Severity scale (1-10): 8 - Related Data Home Medications Medication Instructions Recorded Confirmed Ranitidine HCl [Zantac] 150 mg PO HS 09/19/15 08/17/18 Renal Vitamin [Renal Caps Softgel] 1 mg PO DAILY 06/30/17 08/17/18 Calcium Acetate [Phos-LO] 667 mg PO TIDWM 10/17/17 08/17/18 Ferrous Sulfate 325 mg PO DAILY 11/14/17 08/17/18 traZODone [TraZODone] 25 mg PO HS 02/08/18 08/17/18 Calcitriol [Rocaltrol] 0.25 mcg PO DAILY 03/24/18 08/17/18 Levothyroxine Sodium [Synthroid] 300 mcg PO DAILY 03/24/18 08/17/18 Cyanocobalamin (B-12) [Vitamin B12] 1,000 mcg IM QMONTH 08/17/18 08/17/18 Digoxin [Lanoxin] 0.125 mg PO MOWEFR 08/17/18 08/17/18 Midodrine HCl 10 mg PO DAILY 08/17/18 08/17/18 Previous Rx's Medication Instructions Recorded Gabapentin [Neurontin] 100 mg PO TID #30 capsule 12/15/17 Nitroglycerin 0.4 mg SL Q5MIN PRN tab.subl 12/15/17 Fluticasone Propionate Nasal 50 mcg NS DAILY bottle 03/25/18 [Flonase] Allergies Allergy/AdvReac Type Severity Reaction Status Date / Time codeine AdvReac Severe Vomiting Verified 07/13/18 12:40 naproxen [From Naprosyn] AdvReac Severe Vomiting Verified 07/13/18 12:40 All systems ED: reviewed and negative except as stated. Review of Systems: As Per HPI Chest Pain PMH - Past Medical History Medical history: Reports: asthma, atrial fibrillation, COPD, GERD, hypertension , renal disease, thyroid disease, other Surgical history: Reports: appendectomy, cholecystectomy, colostomy, herniorrhaphy, hysterectomy, other Psychiatric history: Reports: anxiety, depression - Social History Smoking Status: Current every day smoker Alcohol use: Reports: none Drug use: Reports: none Physical Exam - General Limitations: no limitations Course - Reevaluation(s) Reevaluation #1: 8:58 AM: Spoke with Dr. Buenrostro who is covering for Dr. Gamboa. He agreed with the plan for CT of the chest to rule out PE secondary to the patient's dyspnea and pleuritic chest pain. She will receive dialysis later today. Vital Signs Temperature 98.2 F 08/17/18 06:55 Pulse Rate 94 08/17/18 06:55 Respiratory Rate 19 08/17/18 06:55 Blood Pressure 108/75 08/17/18 06:55 O2 Sat by Pulse Oximetry 100 08/17/18 06:55 Temperature 98.6 F 08/18/18 06:41 Pulse Rate 92 08/18/18 06:41 Respiratory Rate 18 08/18/18 07:36 Blood Pressure 104/64 08/18/18 06:41 O2 Sat by Pulse Oximetry 95 08/18/18 07:36 Oxygen Delivery Oxygen Delivery Nasal Cannula Chest Pain - [facility] Narrative Medical decision making narrative: I will obtain CTA of the chest to rule out PE secondary to her dyspnea and pleuritic chest pain. I contacted nephrology regarding the patient's need for dialysis and to obtain a CTA of the chest. Patient is a dialysis patient and will require dialysis likely in the hospital. She is also not safe to return home as she lives by herself and has altered mental status with visual hallucinations. CTA did not show evidence of PE. She is afebrile and does not have elevation of white blood cell count. Urinalysis showed elevation of white blood cell in the urine however it is a dirty specimen as it is from a urostomy pouch. Because of the patient's hallucinations I will add antibiotics, ceftriaxone 1 g in the emergency department. CT of the head was negative for acute abnormality. Elevated troponin returned however this is likely secondary to the worsened renal function. Patient given aspirin in the emergency department. Patient comfortable with the plan for admission to hospital. - Medical Records Medical records reviewed: Yes I reviewed the patient's medical records. - Lab Data Lab results reviewed: Yes I reviewed the patient's lab results. Result diagrams: 08/18/18 05:15 08/18/18 05:15 Lab Results 08/17/18 08/17/18 08/17/18 Range/Units 07:48 07:48 07:48 WBC 8.3 (4.3-11.1) K/mcL RBC 3.03 L (3.82-4.97) M/mcL Hgb 9.7 L (11.5-15.4) g/dL Hct 29.2 L (35.3-44.9) % MCV 96.4 (83.0-100.0) fL MCH 32.0 (28.0-33.3) pg MCHC 33.2 (31.6-35.5) g/dL RDW 14.8 H (11.5-14.5) % Plt Count 98 L (140-400) K/mcL MPV 11.0 (9.4-12.4) fL Immature Gran % 0.6 (0-4) % Seg Neutrophils % 83.5 % Lymphocytes % 11.5 % Monocytes % 3.8 % Eosinophils % 0.4 % Basophils % 0.2 % Neutrophils # 6.9 (1.6-8.9) K/mcL Lymphocytes # 1.0 (0.6-4.6) K/mcL Monocytes # 0.3 (0.0-1.3) K/mcL Eosinophils # 0.0 (0.0-0.6) K/mcL Basophils # 0.0 (0.0-0.2) K/mcL Platelet Estimate Slight Decrease L (Normal) Immature Plt Fraction 4.0 (1.1-6.1) % Sodium 136 (136-145) mEq/L Potassium 3.4 L (3.5-5.1) mEq/L Chloride 93 L (98-107) mEq/L Carbon Dioxide 17 L (23-29) mEq/L BUN 69 H (8-23) mg/dL Creatinine 14.59 H (0.60-1.20) mg/dL Est GFR ( Amer) 3 L (> 60) Est GFR (Non-Af Amer) 2 L (> 60) BUN/Creatinine Ratio 5 L (6-26) Glucose 89 (70-105) mg/dL Calculated Osmolality 302 H (280-300) Lactic Acid 0.7 (0.5-2.2) mmol/L Calcium 7.1 L (8.6-10.3) mg/dL Total Bilirubin 0.4 (0.3-1.0) mg/dL AST 8 L (13-39) Units/L ALT 4 L (7-52) Units/L Alkaline Phosphatase 68 (34-104) Units/L Troponin I 0.08 H* (< 0.04) ng/mL Serum Total Protein 5.9 L (6.4-8.9) g/dL Albumin 3.2 L (3.5-5.7) g/dL Globulin 2.7 (2.4-3.5) g/dL Albumin/Globulin Ratio 1.2 (1.1-2.2) Lipase 30 (11-82) Units/L Urine Color (Yellow) Urine Clarity (Clear) Urine pH (5.0-8.0) pH Units Ur Specific [place] (1.010-1.025) Urine Protein (Neg-Trace) mg/dL Urine Glucose (UA) (Normal) mg/dL Urine Ketones (Negative) mg/dL Urine Blood (Negative) Urine Nitrite (Negative) Urine Bilirubin (Negative) Urine Urobilinogen (Normal) mg/dL Ur Leukocyte Esterase (Negative) Urine Microscopic RBC (0-3) per hpf Urine Microscopic WBC (0-3) per hpf Ur Squamous Epith Cells (None-Few) per lpf Ur Renal Epithelial Cell (None-Few) per hpf Amorphous Sediment (Few) Urine Bacteria (None-Few) per hpf Hyaline Casts (None-Few) per lpf Granular Casts (None Seen) per lpf Ur Culture Indicated? (NO) 08/17/18 Range/Units 10:34 WBC (4.3-11.1) K/mcL RBC (3.82-4.97) M/mcL Hgb (11.5-15.4) g/dL Hct (35.3-44.9) % MCV (83.0-100.0) fL MCH (28.0-33.3) pg MCHC (31.6-35.5) g/dL RDW (11.5-14.5) % Plt Count (140-400) K/mcL MPV (9.4-12.4) fL Immature Gran % (0-4) % Seg Neutrophils % % Lymphocytes % % Monocytes % % Eosinophils % % Basophils % % Neutrophils # (1.6-8.9) K/mcL Lymphocytes # (0.6-4.6) K/mcL Monocytes # (0.0-1.3) K/mcL Eosinophils # (0.0-0.6) K/mcL Basophils # (0.0-0.2) K/mcL Platelet Estimate (Normal) Immature Plt Fraction (1.1-6.1) % Sodium (136-145) mEq/L Potassium (3.5-5.1) mEq/L Chloride (98-107) mEq/L Carbon Dioxide (23-29) mEq/L BUN (8-23) mg/dL Creatinine (0.60-1.20) mg/dL Est GFR ( Amer) (> 60) Est GFR (Non-Af Amer) (> 60) BUN/Creatinine Ratio (6-26) Glucose (70-105) mg/dL Calculated Osmolality (280-300) Lactic Acid (0.5-2.2) mmol/L Calcium (8.6-10.3) mg/dL Total Bilirubin (0.3-1.0) mg/dL AST (13-39) Units/L ALT (7-52) Units/L Alkaline Phosphatase (34-104) Units/L Troponin I (< 0.04) ng/mL Serum Total Protein (6.4-8.9) g/dL Albumin (3.5-5.7) g/dL Globulin (2.4-3.5) g/dL Albumin/Globulin Ratio (1.1-2.2) Lipase (11-82) Units/L Urine Color Yellow (Yellow) Urine Clarity Turbid A (Clear) Urine pH 8.0 (5.0-8.0) pH Units Ur Specific [place] 1.010 (1.010-1.025) Urine Protein 100 H (Neg-Trace) mg/dL Urine Glucose (UA) Normal (Normal) mg/dL Urine Ketones Negative (Negative) mg/dL Urine Blood Moderate H (Negative) Urine Nitrite Negative (Negative) Urine Bilirubin Negative (Negative) Urine Urobilinogen Normal (Normal) mg/dL Ur Leukocyte Esterase Negative (Negative) Urine Microscopic RBC 15-30 H (0-3) per hpf Urine Microscopic WBC 50-100 H (0-3) per hpf Ur Squamous Epith Cells Moderate H (None-Few) per lpf Ur Renal Epithelial Cell Few (None-Few) per hpf Amorphous Sediment Few (Few) Urine Bacteria Many H (None-Few) per hpf Hyaline Casts Few (None-Few) per lpf Granular Casts Few H (None Seen) per lpf Ur Culture Indicated? NO (NO) - Radiology Data Radiology results reviewed: Yes I reviewed the patient's radiology results. - EKG Data EKG attestation: Yes I reviewed and interpreted this EKG. EKG results narrative: ECG - interpreted by ED physician. 94 normal sinus rhythm without evidence of STEMI or other dysrhythmia, QTC 474, QRS 98 Heart Score - Score History: Slightly Suspicious EKG: Normal Age: Greater than 65 Risk Factors: 1-2 risk factors Troponin: 1-3x normal limit HEART Score Total: 4
[2018-08-17 08:35] LABS: Albumin 3.2 g/dL (3.5-5.7); Albumin/Globulin Ratio 1.2 (1.1-2.2); Bilirubin,Total 0.4 mg/dL (0.3-1.0); Calcium 7.1 mg/dL (8.6-10.3); Globulin 2.7 g/dL (2.4-3.5); Platelet Estimate Slight Decrease (Normal); Potassium 3.4 mEq/L (3.5-5.1); Total Protein 5.9 g/dL (6.4-8.9)
[2018-08-17 08:48] LABS: Troponin I 0.08 ng/mL (< 0.04)
[2018-08-17] MEDS ORDERED: Acetaminophen 325 MG TABLET PO ONE (10:18)
[2018-08-17 10:41] LABS: Bilirubin,Urine Negative (Negative); Blood,Urine Moderate (Negative); Clarity,Urine Turbid (Clear); Color,Urine Yellow (Yellow); Glucose,Urine (UA) Normal (Normal); Ketones,Urine Negative (Negative); Leukocyte Esterase,Urine Negative (Negative); Nitrite,Urine Negative (Negative); Protein,Urine 100 mg/dL (Neg-Trace); Urobilinogen,Urine Normal (Normal)
[2018-08-17 10:44] LABS: Bacteria,Urine Many per hpf (None-Few); RBC,Urine 15-30 per hpf (0-3); WBC,Urine 50-100 per hpf (0-3)
[2018-08-17 11:00] LABS: Renal Epithelial Cells,Urine Few per hpf (None-Few); Squamous Epithelial Cell,Urine Moderate per lpf (None-Few)
[2018-08-17 11:02] LABS: Amorphous Sediment,Urine Few (Few); Granular Casts,Urine Few per lpf (None Seen); Hyaline Casts,Urine Few per lpf (None-Few)
[2018-08-17] MEDS ORDERED: 0.9 % Sodium Chloride 500 ML IVC ONE (11:43)
--- NOTE | 2018-08-17 11:47 | Nephrology Consult Note ---
Date of Encounter: 08/17/18 Time of Encounter: 11:41 Assessment and Plan (1) ESRD (end stage renal disease) on dialysis Current Visit: No Status: Chronic HD TRS. Renal vitamins. Renal dose medications. Renal diet. Additional dialysis and ultrafiltration as needed. No acute need for dialysis today. (2) Anemia in chronic kidney disease Current Visit: No Status: Chronic Monitor for bleeding. Transfuse as needed. Qualifiers: Chronic kidney disease stage: on chronic dialysis Qualified Code(s): N18.6 - End stage renal disease; D63.1 - Anemia in chronic kidney disease; Z99.2 - Dependence on renal dialysis (3) Chest pain Current Visit: No Status: Chronic We will defer to primary team. Chest pain seems atypical and pleuritic. Qualifiers: Chest pain type: chest pain on breathing Qualified Code(s): R07.1 - Chest pain on breathing; R07.81 - Pleurodynia (4) Severe malnutrition Current Visit: No Status: Chronic Continue supplements. History of Present Illness - Reason for Consult Consult date: 08/17/18 end stage renal disease - Chief Complaint Chest pain - History of Present Illness Ms. Parra is a 72 yo woman with a very complicated medical history including a history of end-stage renal disease who receives dialysis Friday, , and Friday. She reports that she has not had dialysis in over a week secondary to a malfunction of her left upper arm fistula. She reports her last Friday she had an intervention on the left upper arm fistula with stent placement and has not had a chance to get dialysis since then. She presents today with an atypical chest pain along with seeing "snow in my house". At the time of my evaluation she states her dyspnea is better, but not resolved. Past Med Surg Social Fam HX - Past Medical History Medical history: asthma, atrial fibrillation, COPD, GERD, hypertension, renal disease, thyroid disease, other Additional medical history: on dialysis Psychiatric history: anxiety, depression - Past Surgical History Surgical History: appendectomy, cholecystectomy, colostomy, herniorrhaphy, hysterectomy, other Additional surgical history: urostomy, carpal tunnel, colostomy - Social History Smoking Status: Current every day smoker Smokeless Tobacco Status: No Alcohol use: none Drug use: none - Family History Mother Adopted: No Living Status: Hx Family Cardiac Disorders: Yes (CT/ Stroke) Hx Family Respiratory Disorders: No Hx Family Cancer: No Hx Family GI Disorders: No Hx Family Endocrine Disorder: No Hx Family Neuromuscular Disorders: No Hx Family Neurologic Disorders: No Hx Family HEENT Disorders: No Hx Family Autoimmune Disorders: No Father Adopted: No Living Status: Hx Family Cardiac Disorders: Yes (CT) Hx Family Respiratory Disorders: No Hx Family Cancer: No Hx Family GI Disorders: No Hx Family Endocrine Disorder: No Hx Family Neuromuscular Disorders: No Hx Family Neurologic Disorders: No Hx Family HEENT Disorders: No Hx Family Autoimmune Disorders: No Brother Living Status: Still Living Hx Family Cardiac Disorders: Yes Hx Family Respiratory Disorders: No Hx Family Endocrine Disorder: Yes Medications and Allergies Ranitidine HCl [Zantac] 150 mg PO HS 09/19/15 [History] Renal Vitamin [Renal Caps Softgel] 1 mg PO DAILY 06/30/17 [History] Acetaminophen [Tylenol] 650 mg PO Q6HR PRN #20 tab 07/10/17 [Rx] Calcium Acetate [Phos-LO] 667 mg PO TIDWM 10/17/17 [History] Ferrous Sulfate 325 mg PO DAILY 11/14/17 [History] Diltiazem [Cardizem] 30 mg PO Q6HR tablet 12/15/17 [Rx] Gabapentin [Neurontin] 100 mg PO TID #30 capsule 12/15/17 [Rx] Nitroglycerin 0.4 mg SL Q5MIN PRN tab.subl 12/15/17 [Rx] traZODone [TraZODone] 25 mg PO HS 02/08/18 [History] Calcitriol [Rocaltrol] 0.25 mcg PO DAILY 03/24/18 [History] Levothyroxine Sodium [Synthroid] 300 mcg PO DAILY 03/24/18 [History] Fluticasone Propionate Nasal [Flonase] 50 mcg NS DAILY bottle 03/25/18 [Rx] GuaiFENesin ER [Mucinex] 600 mg PO BID PRN #30 tbbp.12hr 03/25/18 [Rx] levoFLOXacin [Levaquin] 250 mg PO Q48H #4 tablet 03/25/18 [Rx] predniSONE [PredniSONE] 10 mg PO DAILY #31 tablet 03/25/18 [Rx] Ondansetron ODT [Zofran ODT] 4 mg PO Q4H #10 tab.rapdis 07/13/18 [Rx] 3 Allergy/AdvReac Type Severity Reaction Status Date / Time codeine AdvReac Severe Vomiting Verified 07/13/18 12:40 naproxen [From Naprosyn] AdvReac Severe Vomiting Verified 07/13/18 12:40 Review of Systems All Systems: reviewed and no additional remarkable complaints except as stated ( as documented in the HPI.) Exam - Vital Signs Vital signs: Initial Vital Signs Temp Pulse Resp BP Pulse Ox 98.2 F 94 19 108/75 100 08/17/18 06:55 08/17/18 06:55 08/17/18 06:55 08/17/18 06:55 08/17/18 06:55 Vital Signs - Last 8 Hours Temp Pulse Resp BP Pulse Ox 08/17/18 11:00 72 118/79 08/17/18 10:25 80 22 96/64 99 08/17/18 08:14 89 22 94/57 95 08/17/18 06:55 98.2 F 94 19 108/75 100 Intake and Output 08/16/18 08/17/18 08/17/18 23:59 07:59 15:59 Other: Weight 52.027 kg Patient Weight 08/17/18 23:59 Weight 52.027 kg - General Appearance General appearance: well-developed, cachectic, chronically ill, frail Neck: supple Respiratory: course breath sounds Cardiology: regular rate Gastrointestinal: no tenderness Integumentary: warm and dry Neurologic: alert and oriented x3 Musculoskeletal: no cyanosis Psychiatric: mood/affect appropriate Results - Lab Results 08/17/18 07:48 08/17/18 07:48 Most recent lab results Calcium 7.1 mg/dL (8.6-10.3) L 08/17/18 07:48 Consult Discharge Plan - Plan Referrals: NONE,PCP [Primary Care Provider] -
[2018-08-17] MEDS ORDERED: Aspirin 81 MG TAB.CHEW PO ONE (12:09)
[2018-08-17] MEDS ORDERED: cefTRIAXone 1,000 MG in Water for inj. (sterile) 20 ML 10 ML IVP ONE (12:13)
--- NOTE | 2018-08-17 12:27 | Internal Med History&Physical ---
Date of Encounter: 08/17/18 Time of Encounter: 12:25 Internal Medicine - H&P: HPI Chief complaint: chest pain Admitted From: Home Plans for Post Hospital Care: Transfer [facility] History of present illness: Ms. Parra is a 72 year old female history of COPD, current everyday smoker, colostomy, AFib not on AC, ESRD on HD presented to the ED with complaint of Chest pain. As per patient chest pain started earlier on admission day and has sharp quality, constant, has improved since she has been in the ED, aggravated by coughing and alleviated by oxygen and laying down. She does report having similar chest pains on and off for the past few years. She does report that she had been having visual hallucinations, seeing her children playing in snow. Denies any psychiatric history. Cannot provide any further information secondary to mental status. She denies fever, chills, hemoptysis, nausea, vomiting, diarrhea. unable to establish code status secondary to mental status- as per chart review in march 2018 she was full code on previous admissions In the ED HD acess site malfunction resolved, nephrology consulted and she is for HD. CT head performed which showed No acute abnormalities Past Med Surg Social Fam HX - Past Medical History Medical history: asthma, atrial fibrillation, COPD, GERD, hypertension, renal disease, thyroid disease, other Additional medical history: on dialysis Psychiatric history: anxiety, depression - Past Surgical History Surgical History: appendectomy, cholecystectomy, colostomy, herniorrhaphy, hysterectomy, other Additional surgical history: urostomy, carpal tunnel, colostomy - Social History Smoking Status: Current every day smoker Smokeless Tobacco Status: No Alcohol use: none Drug use: none - Family History Mother Adopted: No Living Status: Hx Family Cardiac Disorders: Yes ([place]/ Stroke) Hx Family Respiratory Disorders: No Hx Family Cancer: No Hx Family GI Disorders: No Hx Family Endocrine Disorder: No Hx Family Neuromuscular Disorders: No Hx Family Neurologic Disorders: No Hx Family HEENT Disorders: No Hx Family Autoimmune Disorders: No Father Adopted: No Living Status: Hx Family Cardiac Disorders: Yes ([place]) Hx Family Respiratory Disorders: No Hx Family Cancer: No Hx Family GI Disorders: No Hx Family Endocrine Disorder: No Hx Family Neuromuscular Disorders: No Hx Family Neurologic Disorders: No Hx Family HEENT Disorders: No Hx Family Autoimmune Disorders: No Brother Living Status: Still Living Hx Family Cardiac Disorders: Yes Hx Family Respiratory Disorders: No Hx Family Endocrine Disorder: Yes Internal Medicine - H&P: Meds Ranitidine HCl [Zantac] 150 mg PO HS 09/19/15 [History] Renal Vitamin [Renal Caps Softgel] 1 mg PO DAILY 06/30/17 [History] Calcium Acetate [Phos-LO] 667 mg PO TIDWM 10/17/17 [History] Ferrous Sulfate 325 mg PO DAILY 11/14/17 [History] Gabapentin [Neurontin] 100 mg PO TID #30 capsule 12/15/17 [Rx] Nitroglycerin 0.4 mg SL Q5MIN PRN tab.subl 12/15/17 [Rx] traZODone [TraZODone] 25 mg PO HS 02/08/18 [History] Calcitriol [Rocaltrol] 0.25 mcg PO DAILY 03/24/18 [History] Levothyroxine Sodium [Synthroid] 300 mcg PO DAILY 03/24/18 [History] Fluticasone Propionate Nasal [Flonase] 50 mcg NS DAILY bottle 03/25/18 [Rx] Cyanocobalamin (B-12) [Vitamin B12] 1,000 mcg IM QMONTH 08/17/18 [History] Digoxin [Lanoxin] 0.125 mg PO MOWEFR 08/17/18 [History] Midodrine HCl 10 mg PO DAILY 08/17/18 [History] 3 Allergy/AdvReac Type Severity Reaction Status Date / Time codeine AdvReac Severe Vomiting Verified 07/13/18 12:40 naproxen [From Naprosyn] AdvReac Severe Vomiting Verified 07/13/18 12:40 ROS unobtainable: due to mental status (limited ROS secondary to mental status ) All Systems PM: A 10-system review of systems was performed and is negative for pertinent findings except as documented above in the HPI. - Constitutional Vitals: Temp Pulse Resp BP Pulse Ox 98.2 F 72 22 118/79 99 08/17/18 06:55 08/17/18 11:00 08/17/18 10:25 08/17/18 11:00 08/17/18 10:25 Exam: General: Patient is alert, oriented to self and place but not time, no acute distress, cachectic Head: atraumatic, normocephalic, Eye: Anicteric, reactive to light ENT: no neck stiffness, could not appreciated JVD. poor dentition Chest: thin, inspection WNL Respiratory: decreased breath sounds in all lung stein, no wheezing Cardiovascular: Regular rate and rhythm. s1 and s2 No clicks, rubs, gallops, or murmors. Abdomen: Bowel sounds present normoactive x-4 quadrants. Abdomen is soft, nondistended. no Epigastric tenderness. No guarding or rebound. scaphoid, has colostomy in the LLQ with good out put musculoskeletal: Spontaneously moving all extremities. no edema, no calf tenderness, cachectic Skin: warm, dry, intact. Neuro: Alert and oriented x2 moves all extremities spontanouelsy . nnot aphasic , speech is comprehendible Internal Med - H&P Results - Labs CBC & Chem 7: 08/17/18 07:48 08/17/18 07:48 Labs: Short CBC 08/17/18 Range/Units 07:48 WBC 8.3 (4.3-11.1) K/mcL Hgb 9.7 L (11.5-15.4) g/dL Hct 29.2 L (35.3-44.9) % Plt Count 98 L (140-400) K/mcL Neutrophils # 6.9 (1.6-8.9) K/mcL BMP 08/17/18 07:48 Sodium 136 Potassium 3.4 L Chloride 93 L Carbon Dioxide 17 L BUN 69 H Creatinine 14.59 H Glucose 89 Calcium 7.1 L Cardiac Enzymes 08/17/18 Range/Units 07:48 Troponin I 0.08 H* (< 0.04) ng/mL Liver Function 08/17/18 Range/Units 07:48 Total Bilirubin 0.4 (0.3-1.0) mg/dL AST 8 L (13-39) Units/L ALT 4 L (7-52) Units/L Alkaline Phosphatase 68 (34-104) Units/L Albumin 3.2 L (3.5-5.7) g/dL Urine 08/17/18 Range/Units 10:34 Urine Color Yellow (Yellow) Urine Clarity Turbid A (Clear) Urine pH 8.0 (5.0-8.0) pH Units Ur Specific [place] 1.010 (1.010-1.025) Urine Protein 100 H (Neg-Trace) mg/dL Urine Glucose (UA) Normal (Normal) mg/dL - EKG Data -: EKG Interpreted by Myself (NSR, no acute ST-T changes ) - EKG Data Prior EKG available for review: yes When compared to previous EKG: there is no significant change - Impressions ITS Impressions Chest X-Ray 08/17/18 06:56 IMPRESSION: COPD with no new acute cardiopulmonary findings. D/ / Ching Hilario MD / Ching Hilario MD Interpreting Provider: Ching Hilario MD Chest CTA 08/17/18 08:31 IMPRESSION: 1. No evidence of acute pulmonary embolism. 2. Prominent main pulmonary artery suggestive of pulmonary arterial hypertension. 3. A pattern of prominent reticulonodular interstitial lung disease which was less pronounced in the previous evaluation. Nodularity is felt to be related to interstitial lung disease rather than neoplasm. No evidence of dominant masses. 4. Scattered mediastinal lymph nodes but no evidence of significant lymphadenopathy. D/ / 08/17/2018 10:39:10 Ania Mason MD / jenny Interpreting Provider: Ania Mason MD - Assessment and plan (1) Acute encephalopathy Current Visit: Yes Status: Acute Assessment and plan: metabolic/uremic ( has not recieved HD secondary to catheter malfunction) CT head performed in the ED neurochecks Q4H seizure, fall, aspiration precautions benefits from palliative consult once mental status improved CT head: IMPRESSION: No acute intracranial abnormality. Dolichoectasia of the left vertebral artery. (2) Chest pain Current Visit: Yes Status: Acute Assessment and plan: most likely secondary to supply VS demand mismatch in setting of fluid overload cannot rule out underlying CAD ( does have multiple risk factors) follow troponin and EKG Q6H was given ASA 325 mg once in the ED will continue with ASA 81 mg daily ( watch platelets) if she develops CP, if troponins trends up and has EKG changes please start heparin drip NTG PRN for chest pain - with holding parameters TTE lipid panel AM consider cardiology consult Qualifiers: Chest pain type: chest pain on breathing Qualified Code(s): R07.1 - Chest pain on breathing; R07.81 - Pleurodynia (3) End-stage renal disease (ESRD) Current Visit: Yes Status: Acute Assessment and plan: had HD catheter malfunction - was fixed in the ED nephrology on baord for HD on 08/17 phosphorus in AM (4) Bicytopenia Current Visit: Yes Status: Acute Assessment and plan: has anemia most likely secondary to ESRD baseline H/H anywhere from 8-11- was 11.9 on 07/21/2018 chronic thrombocytopenia- platelet counts were 118 on 07/21/18 continue to monitor CBC FOBT iron studies nephrology on board (5) Interstitial lung disease Current Visit: Yes Status: Acute Assessment and plan: continue duonebs oxygen via Nasal cannula keeps sats >92% CTPA- 1. No evidence of acute pulmonary embolism. 2. Prominent main pulmonary artery suggestive of pulmonary arterial hypertension. 3. A pattern of prominent reticulonodular interstitial lung disease which was less pronounced in the previous evaluation. Nodularity is felt to be related to interstitial lung disease rather than neoplasm. No evidence of dominant masses. 4. Scattered mediastinal lymph nodes but no evidence of significant lymphadenopathy. (6) Atrial fibrillation Current Visit: Yes Status: Acute Assessment and plan: PAF not on AC as per Documentation secondary to anemia currently rate controlled TSH continue home medications if not CI Qualifiers: Atrial fibrillation type: paroxysmal Qualified Code(s): I48.0 - Paroxysmal atrial fibrillation (7) Hypothyroidism Current Visit: Yes Status: Acute Assessment and plan: TSH in AM continue home synthroid Qualifiers: Hypothyroidism type: acquired Qualified Code(s): E03.9 - Hypothyroidism, unspecified (8) Colostomy care Current Visit: Yes Status: Acute Assessment and plan: as per nursing staff (9) Protein calorie malnutrition Current Visit: Yes Status: Acute Assessment and plan: nurtrition consult BMI 17.4 Qualifiers: Protein-calorie malnutrition severity: moderate Qualified Code(s): E44.0 - Moderate protein-calorie malnutrition (10) Frail elderly Current Visit: Yes Status: Acute Assessment and plan: Pt/OT SW and senior manager consult vitamin D fall, aspiration, seizure precautions (11) Current every day smoker Current Visit: Yes Status: Acute Assessment and plan: was counseled (12) DVT prophylaxis Current Visit: Yes Status: Acute Assessment and plan: scds - Time Spent With Patient Total time spent is greater than 50% in coordination of care (as documented) at patient's floor/unit and/or counseling patient:
[2018-08-17] MEDS ORDERED: Naloxone 0.4 MG/ML INJ IVP PRN (12:42)
[2018-08-17] MEDS ORDERED: Nitroglycerin 0.4 MG TAB.SUBL SL PRN (13:22)
[2018-08-17] MEDS ORDERED: Ipratropium/Albuterol Neb 3 ML ONE (15:54)
[2018-08-17] MEDS: Ipratropium/Albuterol Neb 3 ML IH SCH ×3 (15:55→23:18)
[2018-08-17] MEDS: *HR* Digoxin 0.125 MG TABLET PO SCH (16:23)
[2018-08-17] MEDS: Gabapentin 100 MG CAPSULE PO SCH ×2 (16:23→22:11)
[2018-08-17] MEDS: Calcium Acetate 667 MG CAPSULE PO SCH (16:23)
[2018-08-17] MEDS: traZODone 50 MG TABLET PO SCH (22:11)
[2018-08-17] MEDS: Famotidine 20 MG TABLET PO SCH (22:12)
[2018-08-18] MEDS: Ipratropium/Albuterol Neb 3 ML IH SCH ×5 (03:40→20:03)
[2018-08-18] MEDS: Acetaminophen 325 MG TABLET PO PRN ×3 (05:20→23:31)
[2018-08-18 05:29] LABS: Mean Corpuscular HGB Conc 33.2 g/dL (31.6-35.5); Red Cell Distribution Width 14.6 % (11.5-14.5)
[2018-08-18 05:31] LABS: Basophils % 0.2 %; Eosinophils # 0.1 K/mcL (0.0-0.6); Eosinophils % 1.3 %; Hematocrit 27.4 % (35.3-44.9); Hemoglobin 9.1 g/dL (11.5-15.4); Immature Granulocytes % 1.8 % (0-4); Immature Platelets 2.7 % (1.1-6.1); Lymphocytes # 1.2 K/mcL (0.6-4.6); Lymphocytes % 19.3 %; Mean Corpuscular Hemoglobin 31.7 pg (28.0-33.3); Mean Corpuscular Volume 95.5 fL (83.0-100.0); Mean Platelet Volume 10.5 fL (9.4-12.4); Monocytes # 0.2 K/mcL (0.0-1.3); Monocytes % 3.2 %; Neutrophils # 4.5 K/mcL (1.6-8.9); Red Blood Count 2.87 M/mcL (3.82-4.97); Segmented Neutrophils % 74.2 %
[2018-08-18 05:33] LABS: INR 1.8
[2018-08-18 05:36] LABS: Activated Partial Thrombo Time 33.3 Seconds (26.0-36.0)
[2018-08-18 05:41] LABS: Platelet Count 86 K/mcL (140-400)
[2018-08-18 05:47] LABS: Calcium 6.8 mg/dL (8.6-10.3); Phosphorous 15.4 mg/dL (2.7-4.5); Potassium 3.3 mEq/L (3.5-5.1)
[2018-08-18] MEDS ORDERED: 0.9 % Sodium Chloride 2,000 ML ONE (06:34)
--- NOTE | 2018-08-18 06:39 | Electrocardiograph Report ---
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
[2018-08-18 06:48] LABS: Magnesium 1.5 mg/dL (1.6-2.6)
[2018-08-18] MEDS: Gabapentin 100 MG CAPSULE PO SCH ×3 (07:51→23:30)
[2018-08-18] MEDS: Fluticasone Propionate Nasal 50 MCG/SPRAY BOTTLE NS SCH (07:51)
[2018-08-18] MEDS: Renal Vitamin 1 CAP CAPSULE PO SCH (07:51)
[2018-08-18] MEDS: Calcium Acetate 667 MG CAPSULE PO SCH ×3 (07:51→15:02)
[2018-08-18] MEDS: Aspirin 81 MG TAB.CHEW PO SCH (07:51)
[2018-08-18] MEDS ORDERED: 0.9 % Sodium Chloride 250 ML IVC PRN (08:25)
[2018-08-18] MEDS ORDERED: 0.9 % Sodium Chloride 1,000 ML PRIME SCH (08:30)
[2018-08-18] MEDS ORDERED: LEVOTHYROXINE SODIUM 300 MCG PO SCH (09:00)
[2018-08-18] MEDS ORDERED: Heparin 1,000 UNITS/500 mL 500 ML ONE (12:12)
[2018-08-18] MEDS ORDERED: 0.9 % Sodium Chloride 500 ML ONE ×2 (12:12→13:15)
--- NOTE | 2018-08-18 12:14 | Discharge Summary ---
- NOTES TO OUTPATIENT PROVIDER Notes to Outpatient Provider: 72 F who was admitted due to chest pain and hx of altered mentation and multiple days of missing HD (6 days of missing HD). Chest pain on presentation was atypical and pleuritic. She had a malfunction of her L arm AVF that has since been fixed and received HD today 08/18. Work up for chest pain including CTA, EKG and ECHO unremarkable. EF preserved, with no significant valvular abnormality, nor wall motion abnormality. Trop peaked at 0.09, patient with ESRD, likely due to demandi ischemia. During my evaluation this mrn, she requested to be discharged home after having stated that her chest pain has resolved and she has "better care at home, they treat me like a baby". She reports her chest pain is resolved and SOB has improved with HD. She continues to smoke and counselled on cessation. She has chronic anemia and thombocytopenia , both at her baseline. O2 requriement and chronic bronchitis are at baseline. 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 Per JULIO C massey, she has no home health but has multiple DMEs to function at home. She agreed with plan of care Date of Encounter: 08/18/18 Time of Encounter: 12:07 - Discharge Diagnosis (1) End-stage renal disease (ESRD) Priority: Secondary Status: Chronic (2) Bicytopenia Priority: Secondary Status: Chronic (3) Acute encephalopathy Priority: Primary Status: Resolved (4) Interstitial lung disease Priority: Secondary Status: Chronic (5) DVT prophylaxis Priority: Primary Status: Resolved (6) Atrial fibrillation Priority: Secondary Status: Chronic Qualifiers: Atrial fibrillation type: paroxysmal Qualified Code(s): I48.0 - Paroxysmal atrial fibrillation (7) Hypothyroidism Priority: Secondary Status: Chronic Qualifiers: Hypothyroidism type: acquired Qualified Code(s): E03.9 - Hypothyroidism, unspecified (8) Colostomy care Priority: Secondary Status: Chronic (9) Protein calorie malnutrition Priority: Secondary Status: Chronic Qualifiers: Protein-calorie malnutrition severity: moderate Qualified Code(s): E44.0 - Moderate protein-calorie malnutrition (10) Frail elderly Priority: Secondary Status: Chronic (11) Current every day smoker Priority: Secondary Status: Chronic (12) Chest pain Priority: Secondary Status: Chronic Qualifiers: Chest pain type: chest pain on breathing Qualified Code(s): R07.1 - Chest pain on breathing; R07.81 - Pleurodynia Hospital course: Ms. Parra is a 72 year old female who was admitted due to chest pain and hx of altered mentation and multiple days of missing HD (6 days of missing HD). Chest pain on presentation was atypical and pleuritic. She had a malfunction of her L arm AVF that has since been fixed and received HD today 08/18. Work up for chest pain including CTA, EKG and ECHO unremarkable. EF preserved, with no significant valvular abnormality, nor wall motion abnormality. Trop peaked at 0.09, patient with ESRD, likely due to demandi ischemia. During my evaluation this mrn, she requested to be discharged home after having stated that her chest pain has resolved and she has "better care at home, they treat me like a baby". She reports her chest pain is resolved and SOB has improved with HD. She continues to smoke and counselled on cessation. She has chronic anemia and thombocytopenia , both at her baseline. O2 requriement and chronic bronchitis are at baseline. 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 Per JULIO C massey, she has no home health but has multiple DMEs to function at home. She agreed with plan of care Her mental status is at baseline, she is AAOX4. She does have significant hearing difficulty but was able to follow commands and answer questions appropriately after wearing her hearing aids Discharge discussed with: patient, nurse Time spent discussing smoking cessation with patient: 3 to 10 minutes - Time Spent with Patient Total time spent providing and/or coordinating discharge services: Greater than 30 minutes - Discharge Medications Home Medications: Ranitidine HCl [Zantac] 150 mg PO HS 09/19/15 [History] Renal Vitamin [Renal Caps Softgel] 1 mg PO DAILY 06/30/17 [History] Calcium Acetate [Phos-LO] 667 mg PO TIDWM 10/17/17 [History] Ferrous Sulfate 325 mg PO DAILY 11/14/17 [History] Gabapentin [Neurontin] 100 mg PO TID #30 capsule 12/15/17 [Rx] Nitroglycerin 0.4 mg SL Q5MIN PRN tab.subl 12/15/17 [Rx] traZODone [TraZODone] 25 mg PO HS 02/08/18 [History] Calcitriol [Rocaltrol] 0.25 mcg PO DAILY 03/24/18 [History] Levothyroxine Sodium [Synthroid] 300 mcg PO DAILY 03/24/18 [History] Fluticasone Propionate Nasal [Flonase] 50 mcg NS DAILY bottle 03/25/18 [Rx] Cyanocobalamin (B-12) [Vitamin B12] 1,000 mcg IM QMONTH 08/17/18 [History] Digoxin [Lanoxin] 0.125 mg PO MOWEFR 08/17/18 [History] Midodrine HCl 10 mg PO DAILY 08/17/18 [History] Allergies/Adverse Reactions: 3 Allergy/AdvReac Type Severity Reaction Status Date / Time codeine AdvReac Severe Vomiting Verified 07/13/18 12:40 naproxen [From Naprosyn] AdvReac Severe Vomiting Verified 07/13/18 12:40 Date of admission: 08/17/18 12:25 Primary care physician: PCP NONE Consults: 08/17/18 12:33 Consult to Case Management [CONS] Routine Comment: Consult to Nutrition [CONS] Routine Comment: Consulting Provider: NUTRITION Reason for Dietary Consult: PO Supplementation Consult to Physical Therapy [CONS] Routine Comment: Evaluate, develop and implement POC Reason for Consult: dispostion Does patient have active BEDREST order?: No Is patient medically & hemodynamically stable?: Yes Patient assessed for mobility or mobilized this visit?: Yes OT [Consult to Occupational Therapy] [CONS] Routine Comment: Evaluate, develop and implement POC Reason for Consult: disposition Does patient have active BEDREST order?: No Is patient medically & hemodynamically stable?: Yes Patient assessed for mobility or mobilized this visit?: Yes 08/18/18 08:30 Consult to Dialysis [CONS] ONCE 08/18/18 09:54 Consult to Interventional Radiology [CONS] Routine Consulting Provider: Radiology Interventional Cols Reason for Consult: Fistulagram please. Thanks! Time Notified: 09:55 Call Completed: Yes Discharging clinician: Pasha Alexander Anticipated date of discharge: 08/18/18 - Constitutional Vitals: Temp Pulse Resp BP Pulse Ox 98.3 F 90 18 113/66 92 08/18/18 10:30 08/18/18 10:30 08/18/18 11:06 08/18/18 10:30 08/18/18 11:06 Exam: General: Patient is alert, oriented to self and place but not time, no acute distress, cachectic Head: atraumatic, normocephalic, Eye: Anicteric, reactive to light ENT: no neck stiffness, could not appreciated JVD. poor dentition Chest: thin, inspection WNL Respiratory: decreased breath sounds in all lung stein, no wheezing Cardiovascular: Regular rate and rhythm. s1 and s2 No clicks, rubs, gallops, or murmors. Abdomen: Bowel sounds present normoactive x-4 quadrants. Abdomen is soft, nondistended. no Epigastric tenderness. No guarding or rebound. scaphoid, has colostomy in the LLQ with good out put musculoskeletal: Spontaneously moving all extremities. no edema, no calf tenderness, cachectic Skin: warm, dry, intact. Neuro: Alert and oriented x2 moves all extremities spontanouelsy . nnot aphasic , speech is comprehendible - Patient Status Disposition: Home, Self-Care Condition: Fair Functional capacity at discharge: uses cane/walker Overall status at discharge: patient is progressing back to baseline - Discharge Instructions Follow Up With: NONE,PCP [Primary Care Provider] - - Diet and Activity Activity: resume usual activities as tolerated, wear oxygen at all times Diet: diabetic diet, low fat, low cholesterol, low salt diet
[2018-08-18] MEDS ORDERED: Ondansetron 4 MG/2 ML VIAL IM ONE (13:49)
[2018-08-18] MEDS ORDERED: Ondansetron 4 MG/2 ML VIAL IVP ONE ×2 (14:02→14:15)
[2018-08-18] MEDS ORDERED: *HR* Heparin 5,000 UNIT/ML VIAL ONE (14:42)
--- NOTE | 2018-08-18 14:52 | Event Note ---
Date of Encounter: 08/18/18 Time of Encounter: 14:52 Patient's fistula not working for HD , and according to nephrology, temp line ruma be placed Discharge is cancelled for today
--- NOTE | 2018-08-18 17:45 | Nephrology Progress Note ---
Date of Encounter: 08/18/18 Time of Encounter: 17:42 - Assessment and Plan (1) ESRD (end stage renal disease) on dialysis Current Visit: No Status: Chronic HD TRS. Renal vitamins. Renal dose medications. Renal diet. Additional dialysis and ultrafiltration as needed. Access malfunctioned. Attempted, but was unable to get a fistulogram. Temp line ordered. Will dialyze today. (2) Anemia in chronic kidney disease Current Visit: No Status: Chronic Monitor for bleeding. Transfuse as needed. Qualifiers: Chronic kidney disease stage: on chronic dialysis Qualified Code(s): N18.6 - End stage renal disease; D63.1 - Anemia in chronic kidney disease; Z99.2 - Dependence on renal dialysis (3) Chest pain Current Visit: No Status: Chronic We will defer to primary team. Chest pain seems atypical and pleuritic. Qualifiers: Chest pain type: chest pain on breathing Qualified Code(s): R07.1 - Chest pain on breathing; R07.81 - Pleurodynia (4) Severe malnutrition Current Visit: No Status: Chronic Continue supplements. Subjective Principal diagnosis: ESRD Interval history: Patient seen in dialysis. She is tremulous. Nursing is unable to access her fistula. Objective - Vital Signs Vital signs: Vital Signs Temp Pulse Resp BP Pulse Ox 08/18/18 17:30 115/47 08/18/18 17:15 102/45 08/18/18 17:00 104/55 08/18/18 16:45 113/58 08/18/18 16:30 108/56 08/18/18 16:15 97.7 F 20 110/55 08/18/18 15:49 18 89 08/18/18 14:30 98.3 F 82 17 104/63 96 08/18/18 11:06 18 92 08/18/18 10:30 98.3 F 90 16 113/66 92 08/18/18 07:36 18 95 08/18/18 06:41 98.6 F 92 17 104/64 90 08/18/18 04:07 98.8 F 97 16 106/64 98 08/18/18 03:40 18 96 08/18/18 00:30 98.7 F 88 16 112/69 96 08/17/18 23:18 19 95 08/17/18 19:29 19 98 08/17/18 19:10 98.3 F 90 16 93/58 94 Intake and Output 08/18/18 08/18/18 08/18/18 07:59 15:59 23:59 Intake Total 30 / 30 600 / 600 Output Total 350 / 350 700 / 700 Balance -320 / -320 -700 / -700 600 / 600 Intake: Oral 30 / 30 0 / 0 Intake, Rinseback and Flushes 600 / 600 Output: Urine 0 / 0 Stool 350 / 350 700 / 700 Other: Weight 52.1 kg Hemodialysis Net Fluid Removed 744 (mL) Patient Weight 08/18/18 23:59 Weight 52.1 kg - General Appearance General appearance: Present: well-developed, cachectic, frail EENT: Present: ATNC Neck: Present: supple Respiratory: Present: course breath sounds Cardiology: Present: regular rate Dialysis Vascular Access: Arteriovenous Fistula Neurologic: Present: alert and oriented x3 Psychiatric: Present: mood/affect appropriate - Lab 08/18/18 05:15 08/18/18 05:15 Most recent lab results Calcium 6.8 mg/dL (8.6-10.3) L 08/18/18 05:15 Phosphorus 15.4 mg/dL (2.7-4.5) H 08/18/18 05:15 Magnesium 1.5 mg/dL (1.6-2.6) L 08/18/18 05:15 Consult Discharge Plan - Plan Referrals: NONE,PCP [Primary Care Provider] -
[2018-08-18] MEDS: traZODone 50 MG TABLET PO SCH (23:30)
[2018-08-18] MEDS: Famotidine 20 MG TABLET PO SCH (23:31)
[2018-08-19] MEDS: Ipratropium/Albuterol Neb 3 ML IH SCH ×7 (00:13→23:41)
[2018-08-19 07:13] LABS: Hemoglobin 8.6 g/dL (11.5-15.4); Immature Platelets 4.9 % (1.1-6.1); Mean Corpuscular HGB Conc 33.1 g/dL (31.6-35.5); Mean Corpuscular Hemoglobin 31.6 pg (28.0-33.3); Mean Corpuscular Volume 95.6 fL (83.0-100.0); Red Blood Count 2.72 M/mcL (3.82-4.97); Red Cell Distribution Width 14.5 % (11.5-14.5)
[2018-08-19 07:30] LABS: Calcium 7.7 mg/dL (8.6-10.3); Potassium 3.4 mEq/L (3.5-5.1)
[2018-08-19] MEDS: Calcium Acetate 667 MG CAPSULE PO SCH ×3 (08:42→18:42)
[2018-08-19] MEDS: Gabapentin 100 MG CAPSULE PO SCH (08:42)
[2018-08-19] MEDS: Aspirin 81 MG TAB.CHEW PO SCH (08:42)
[2018-08-19] MEDS: Renal Vitamin 1 CAP CAPSULE PO SCH (08:42)
[2018-08-19] MEDS: *HR* Digoxin 0.125 MG TABLET PO SCH (08:45)
--- NOTE | 2018-08-19 09:40 | Nephrology Progress Note ---
Date of Encounter: 08/19/18 Time of Encounter: 09:38 - Assessment and Plan (1) ESRD (end stage renal disease) on dialysis Current Visit: No Status: Chronic HD TRS. Renal vitamins. Renal dose medications. Renal diet. Additional dialysis and ultrafiltration as needed. Access malfunctioned 08/18/2018. Attempted, but was unable to get a fistulogram secondary to patient vomiting at beginning of the procedure. Temp line placed 08/18/2018. Will order dialysis today. 4K bath secondary to hypokalemia. (2) Encephalopathy Current Visit: Yes Status: Acute Patient with altered mental status this morning. Etiology is not completely clear. She does not seem to have an infection or new intra-abdominal pathology at this time. Her vitals are stable. Review of medications reveals the administration of gabapentin. We will discontinue gabapentin. Plan for additional dialysis today since she has missed multiple episodes of dialysis. (3) Anemia in chronic kidney disease Current Visit: No Status: Chronic Monitor for bleeding. Transfuse as needed. Stop iron supplementation as iron saturation is 81% Qualifiers: Chronic kidney disease stage: on chronic dialysis Qualified Code(s): N18.6 - End stage renal disease; D63.1 - Anemia in chronic kidney disease; Z99.2 - Dependence on renal dialysis (4) Chest pain Current Visit: No Status: Chronic We will defer to primary team. Chest pain seems atypical and pleuritic. Qualifiers: Chest pain type: chest pain on breathing Qualified Code(s): R07.1 - Chest pain on breathing; R07.81 - Pleurodynia (5) Severe malnutrition Current Visit: No Status: Chronic Continue supplements. Consult waredresser for IDPN. (6) Vitamin D deficiency Current Visit: Yes Status: Acute Ergocalciferol ordered. Subjective Principal diagnosis: ESRD Interval history: Patient seen and evaluated. She is mumbling incoherently, and will not answer questions. I spoke with nursing states she has been like this all morning. Nursing reports that she did take her pills albeit slowly. Her last pill she required significant coaxing before she would swallow it. She has spontaneous movement, but does not track to voice and does not respond to questions regarding pain or where she is. Objective - Vital Signs Vital signs: Vital Signs Temp Pulse Resp BP Pulse Ox 08/19/18 07:38 98.1 F 88 15 106/49 95 08/19/18 07:32 20 95 08/19/18 04:51 98.6 F 87 16 100/58 96 08/19/18 04:18 23 98 08/19/18 00:52 98.1 F 86 16 98/60 93 08/19/18 00:15 20 96 08/18/18 20:35 98.3 F 80 16 104/53 100 08/18/18 20:06 20 90 08/18/18 19:45 97.7 F 20 116/59 08/18/18 19:40 100/45 08/18/18 19:30 100/46 08/18/18 19:15 97/50 08/18/18 19:00 104/51 08/18/18 18:45 98/48 08/18/18 18:30 99/43 08/18/18 18:15 94/50 08/18/18 18:00 99/48 08/18/18 17:45 108/21 08/18/18 17:30 115/47 08/18/18 17:15 102/45 08/18/18 17:00 104/55 08/18/18 16:45 113/58 08/18/18 16:30 108/56 08/18/18 16:15 97.7 F 20 110/55 08/18/18 15:49 18 89 08/18/18 14:30 98.3 F 82 17 104/63 96 08/18/18 11:06 18 92 08/18/18 10:30 98.3 F 90 16 113/66 92 Intake and Output 08/18/18 08/19/18 08/19/18 23:59 07:59 15:59 Intake Total 600 / 600 Output Total 2725 / 2725 Balance -2124 / -2125 Intake: Oral 0 / 0 Intake, Rinseback and Flushes 600 / 600 Output: Urine 0 / 0 Stool 125 / 125 Total Dialysis (HD) Output 2600 / 2600 Other: Weight 50.2 kg Hemodialysis Net Fluid Removed 2000 (mL) Patient Weight 08/19/18 23:59 Weight 50.2 kg - General Appearance General appearance: Present: well-developed, cachectic, chronically ill, frail EENT: Present: ATNC Neck: Present: supple Respiratory: Present: course breath sounds Cardiology: Present: no edema, regular rate Dialysis Vascular Access: Arteriovenous Fistula Additional Comments: Patient has a right IJ non-tunneled dialysis catheter. Gastrointestinal: Present: no tenderness Additional Comments: Patient has a ostomy bag and a urostomy bag in place. Integumentary: Present: warm and dry Neurologic: Present: confused, disoriented Musculoskeletal: Present: no cyanosis Psychiatric: Present: agitated (Mildly agitated.) - Lab 08/19/18 06:50 08/19/18 06:50 Most recent lab results Calcium 7.7 mg/dL (8.6-10.3) L 08/19/18 06:50 Phosphorus 15.4 mg/dL (2.7-4.5) H 08/18/18 05:15 Magnesium 1.5 mg/dL (1.6-2.6) L 08/18/18 05:15 Consult Discharge Plan - Plan Referrals: NONE,PCP [Primary Care Provider] -
--- NOTE | 2018-08-19 10:22 | Internal Med Progress Note ---
Hospitalist Progress Note - Encounter Date of Encounter: 08/19/18 Time of Encounter: 10:22 - Subjective Interval History: 72 F with multiple medical co-morbodities admitted and being managed for encephalopathy, following failure of HD access She also complained of CP on arrival and had missed close to 6 days of HD She also is s/p ostomy, urostomy, COPD, Current smoker, Afib not on AaaaaC due to chronic anemia and thrombocytopenia She was scheduled for discharge home after HD but access failed again and a temp line was placed for HD access She is awake this morning, but not as sharp and conversant as in 08/18 her vitals and labs are stable, and she has no source of infection She has multiple chronic complains, but denies new complains, she is very hard of hearing - Exam Vitals: Temp Pulse Resp BP Pulse Ox 98.1 F 88 15 106/49 95 08/19/18 07:38 08/19/18 07:38 08/19/18 07:38 08/19/18 07:38 08/19/18 07:38 Exam: General: Patient is alert, oriented to self and place but not time, no acute distress, cachectic Head: atraumatic, normocephalic, Eye: Anicteric, reactive to light ENT: no neck stiffness, could not appreciated JVD. poor dentition Chest: thin, inspection WNL Respiratory: decreased breath sounds in all lung stein, no wheezing Cardiovascular: Regular rate and rhythm. s1 and s2 No clicks, rubs, gallops, or murmors. Abdomen: Bowel sounds present normoactive x-4 quadrants. Abdomen is soft, nondistended. no Epigastric tenderness. No guarding or rebound. scaphoid, has ostomy in the LLQ with good out put , urostomy in RLQ with clear urine musculoskeletal: Spontaneously moving all extremities. no edema, no calf tenderness, cachectic Skin: warm, dry, intact. Neuro: Alert and oriented x2 moves all extremities spontanouelsy . nnot aphasic , speech is comprehensible - Assessment and Plan (1) End-stage renal disease (ESRD) Current Visit: Yes Status: Chronic Assessment and Plan: had HD catheter malfunction - was fixed in the ED Renal is following and patient is scheduled for HD daily for now via a temp catheter Fistulogram will be requested (2) Bicytopenia Current Visit: Yes Status: Chronic Assessment and Plan: has anemia most likely secondary to ESRD baseline H/H anywhere from 9-11- was 11.9 on 07/21/2018 chronic thrombocytopenia- platelet counts were 118 on 07/21/18 continue to monitor CBC FOBT iron studies nephrology on board (3) Acute encephalopathy Current Visit: Yes Status: Acute Assessment and Plan: Multifactorial: metabolic/uremic CT head performed in the ED -unremarkable for acute findings neurochecks Q4H seizure, fall, aspiration precautions Has refused help or placement in the past, continue current care (4) Interstitial lung disease Current Visit: Yes Status: Chronic Assessment and Plan: continue duonebs oxygen via Nasal cannula keeps sats >92% CTPA- 1. No evidence of acute pulmonary embolism. 2. Prominent main pulmonary artery suggestive of pulmonary arterial hypertension. 3. A pattern of prominent reticulonodular interstitial lung disease which was less pronounced in the previous evaluation. Nodularity is felt to be related to interstitial lung disease rather than neoplasm. No evidence of dominant masses. 4. Scattered mediastinal lymph nodes but no evidence of significant lymphadenopathy. (5) DVT prophylaxis Current Visit: Yes Status: Acute Assessment and Plan: scds (6) Atrial fibrillation Current Visit: Yes Status: Chronic Assessment and Plan: PAF not on AC as per Documentation secondary to anemia currently rate controlled TSH continue home medications-Digoxin, (7) Hypothyroidism Current Visit: Yes Status: Chronic Assessment and Plan: TSH WNL continue home synthroid (8) Colostomy care Current Visit: Yes Status: Chronic Assessment and Plan: as per nursing staff (9) Protein calorie malnutrition Current Visit: Yes Status: Chronic Assessment and Plan: nurtrition consulted , bryson noted BMI 17.4 Continue supplement po (10) Frail elderly Current Visit: Yes Status: Chronic Assessment and Plan: Pt/OT SW and all source collection manager consult vitamin D fall, aspiration, seizure precautions (11) Current every day smoker Current Visit: Yes Status: Chronic Assessment and Plan: tobacco cessation counselling done (12) Chest pain Current Visit: Yes Status: Chronic Assessment and Plan: most likely secondary to supply VS demand mismatch in setting of fluid overload cannot rule out underlying CAD ( does have multiple risk factors) Trop negative CP is pleuritic in nature, improved with HD ECHO unremarkable for new findings, EF is preserved, no sig valvular anomalies, wall motion was normal - Time Spent with Patient Total time spent is greater than 50% in coordination of care (as documented) at patient's floor/unit and/or counseling patient: Plan of Care Discussed with: nurse Internal Medicine: Result - Labs CBC & Chem 7: 08/19/18 06:50 08/19/18 06:50 Labs: Short CBC 08/19/18 Range/Units 06:50 WBC 4.7 (4.3-11.1) K/mcL Hgb 8.6 L (11.5-15.4) g/dL Hct 26.0 L (35.3-44.9) % Plt Count 74 L (140-400) K/mcL BMP 08/19/18 06:50 Sodium 135 L Potassium 3.4 L Chloride 96 L Carbon Dioxide 24 BUN 28 H Creatinine 7.26 H Glucose 78 Calcium 7.7 L - ABG Interpretation ABG results: PT/INR, D-dimer PT 20.0 Seconds (9.4-12.1) H 08/18/18 05:15 - Impressions Impressions Guidance Ultrasound 08/18/18 00:00 IMPRESSION: Successful ultrasound guided non-tunneled catheter placement. D/ / Jet Johansen MD / Jet Johansen MD Interpreting Provider: Jet Johansen MD Insertion Tunneled Catheter 08/18/18 00:00 IMPRESSION: Successful ultrasound guided non-tunneled catheter placement. D/ / Jet Johansen MD / Jet Johansen MD Interpreting Provider: Jet Johansen MD Chest X-Ray 08/18/18 14:39 IMPRESSION: No acute process. New right central is catheter the tip in the SVC. No pneumothorax is evident. Mild COPD D/ / Kenny Contreras MD / Kenny Contreras MD Interpreting Provider: Kenny Contreras MD Consult Discharge Plan - Plan Referrals: NONE,PCP [Primary Care Provider] - (6) Atrial fibrillation Qualifiers: Atrial fibrillation type: paroxysmal Qualified Code(s): I48.0 - Paroxysmal atrial fibrillation (7) Hypothyroidism Qualifiers: Hypothyroidism type: acquired Qualified Code(s): E03.9 - Hypothyroidism, unspecified (9) Protein calorie malnutrition Qualifiers: Protein-calorie malnutrition severity: moderate Qualified Code(s): E44.0 - Moderate protein-calorie malnutrition (12) Chest pain Qualifiers: Chest pain type: chest pain on breathing Qualified Code(s): R07.1 - Chest pain on breathing; R07.81 - Pleurodynia
[2018-08-19] MEDS ORDERED: *HR* Heparin 10,000 UNIT/10 ML VIAL IV PRN (10:36)
[2018-08-19] MEDS ORDERED: 0.9 % Sodium Chloride 250 ML IVC PRN (10:36)
[2018-08-19] MEDS ORDERED: 0.9 % Sodium Chloride 1,000 ML PRIME SCH (10:45)
[2018-08-19] MEDS: Fluticasone Propionate Nasal 50 MCG/SPRAY BOTTLE NS SCH (11:21)
[2018-08-19] MEDS ORDERED: 0.9 % Sodium Chloride 2,000 ML ONE (11:28)
[2018-08-19] MEDS ORDERED: cefTRIAXone 1,000 MG in Water for inj. (sterile) 20 ML 10 ML IVP ONE (14:50)
[2018-08-19] MEDS ORDERED: *HR* FentaNYL (PF) 100 MCG/2 ML VIAL IVP ONE (19:48)
[2018-08-19] MEDS: traZODone 50 MG TABLET PO SCH (23:10)
[2018-08-19] MEDS: Famotidine 20 MG TABLET PO SCH (23:10)
[2018-08-20] MEDS ORDERED: Melatonin 3 MG TABLET PO PRN (01:55)
[2018-08-20] MEDS ORDERED: Acetaminophen 650 MG RECTAL SUPP RC ONE (02:47)
[2018-08-20] MEDS: Ipratropium/Albuterol Neb 3 ML IH SCH ×6 (07:15→23:11)
[2018-08-20] MEDS ORDERED: Cyanocobalamin (B-12) 1,000 MCG/ML VIAL IM SCH (09:00)
[2018-08-20] MEDS ORDERED: OXYCODONE Oral CONC 10 MG/0.5 ML ORAL.SYG SL ONE (09:00)
[2018-08-20] MEDS ORDERED: Acetaminophen 650 MG RECTAL SUPP RC PRN (11:47)
[2018-08-20] MEDS: Calcium Acetate 667 MG CAPSULE PO SCH ×3 (12:19→18:21)
[2018-08-20] MEDS: Aspirin 81 MG TAB.CHEW PO SCH (12:20)
[2018-08-20] MEDS: Renal Vitamin 1 CAP CAPSULE PO SCH (12:20)
[2018-08-20] MEDS: cefTRIAXone 1,000 MG in Water for inj. (sterile) 20 ML 10 ML IVP SCH (12:21)
--- NOTE | 2018-08-20 13:01 | Internal Med Progress Note ---
Hospitalist Progress Note - Encounter Date of Encounter: 08/20/18 Time of Encounter: 09:30 - Subjective Interval History: 72 F with multiple medical co-morbodities admitted and being managed for encephalopathy, following failure of HD access She also complained of CP on arrival and had missed close to 6 days of HD She also is s/p ostomy, urostomy, COPD, Current smoker, Afib not on Anticoagulation due to chronic anemia and thrombocytopenia, hx of bleed into urostomy She was scheduled for discharge home after HD but access failed again and a temp line was placed for HD access She is very confused and dry this mrn, she continues to request for Christina and is only oriented to self urine culture 08/19 noted for Klebsiella and she was started on Ceftriaxone 08/19 We will obtain further chest and head imaging and consulted palliative According to palliative, patient is now DNR/DNI She is also being followed by renal She has no fever and moves all extremities eequally - Exam Vitals: Temp Pulse Resp BP Pulse Ox 98.0 F 88 20 111/59 97 08/19/18 23:31 08/19/18 23:31 08/20/18 07:15 08/19/18 23:31 08/20/18 07:15 Exam: General: Confused, non-meaningful conversation, seems to be in delirium Head: atraumatic, normocephalic, Eye: Anicteric, reactive to light ENT: no neck stiffness, could not appreciated JVD. poor dentition , very dry oral mucosa and lips Chest: thin, inspection WNL Respiratory: decreased breath sounds in all lung stein, no wheezing, insp crackles, chronic Cardiovascular: Regular rate and rhythm. s1 and s2 No clicks, rubs, gallops, or murmors. Abdomen: Bowel sounds present normoactive x-4 quadrants. Abdomen is soft, nondistended. no Epigastric tenderness. No guarding or rebound. scaphoid, has ostomy in the LLQ with good out put , urostomy in RLQ with clear urine musculoskeletal: Spontaneously moving all extremities. no edema, no calf tenderness, cachectic Skin: warm, dry, intact. Neuro: Confused, disoriented, not focused, moves all limbs - Assessment and Plan (1) End-stage renal disease (ESRD) Current Visit: Yes Status: Chronic Assessment and Plan: had HD catheter malfunction - was fixed in the ED Renal is following and patient is scheduled for HD daily for now via a temp catheter Fistulogram will be requested according to renal 08/20 (2) Bicytopenia Current Visit: Yes Status: Chronic Assessment and Plan: has anemia most likely secondary to ESRD chronic continue to monitor CBC FOBT negative iron studies shows acceptable iron level nephrology on board (3) Acute encephalopathy Current Visit: Yes Status: Acute Assessment and Plan: Multifactorial: metabolic/uremic , infectious (patient has UTI) CT head performed in the ED -unremarkable for acute findings neurochecks Q4H seizure, fall, aspiration precautions Requested repeat Head CT today 08/20 Palliative team consulted today, patient's mental status is worsening She might also have a component of delirium, will add very low dose risperidone p.m Continue to monitor closely (4) Interstitial lung disease Current Visit: Yes Status: Chronic Assessment and Plan: continue duonebs oxygen via Nasal cannula keeps sats >92% CTPA- 1. No evidence of acute pulmonary embolism. 2. Prominent main pulmonary artery suggestive of pulmonary arterial hypertension. 3. A pattern of prominent reticulonodular interstitial lung disease which was less pronounced in the previous evaluation. Nodularity is felt to be related to interstitial lung disease rather than neoplasm. No evidence of dominant masses. 4. Scattered mediastinal lymph nodes but no evidence of significant lymphadenopathy. (5) DVT prophylaxis Current Visit: Yes Status: Acute Assessment and Plan: scds (6) Atrial fibrillation Current Visit: Yes Status: Chronic Assessment and Plan: PAF not on AC as per Documentation secondary to anemia currently rate controlled continue home medications-Digoxin, (7) Hypothyroidism Current Visit: Yes Status: Chronic Assessment and Plan: TSH WNL continue home synthroid (8) Colostomy care Current Visit: Yes Status: Chronic Assessment and Plan: as per nursing staff (9) Protein calorie malnutrition Current Visit: Yes Status: Chronic Assessment and Plan: nurtrition consulted , manpreetal noted BMI 17.4 Continue supplement po (10) Frail elderly Current Visit: Yes Status: Chronic Assessment and Plan: Pt/OT SW and procedure manager consult vitamin D fall, aspiration, seizure precautions (11) Current every day smoker Current Visit: Yes Status: Chronic Assessment and Plan: tobacco cessation counselling done (12) Chest pain Current Visit: Yes Status: Chronic Assessment and Plan: most likely secondary to supply VS demand mismatch in setting of fluid overload cannot rule out underlying CAD ( does have multiple risk factors) Trop negative CP is pleuritic in nature, improved with HD ECHO unremarkable for new findings, EF is preserved, no sig valvular anomalies, wall motion was normal (13) UTI (urinary tract infection) Current Visit: Yes Status: Acute Assessment and Plan: Urine culture with klebsiella oxytoca Continue Ceftriaxone 1g daily-Day 2 - Time Spent with Patient Total time spent is greater than 50% in coordination of care (as documented) at patient's floor/unit and/or counseling patient: Plan of Care Discussed with: patient Internal Medicine: Result - Labs CBC & Chem 7: 08/19/18 06:50 08/19/18 06:50 - ABG Interpretation ABG results: PT/INR, D-dimer PT 20.0 Seconds (9.4-12.1) H 08/18/18 05:15 Consult Discharge Plan - Plan Referrals: NONE,PCP [Primary Care Provider] - (6) Atrial fibrillation Qualifiers: Atrial fibrillation type: paroxysmal Qualified Code(s): I48.0 - Paroxysmal atrial fibrillation (7) Hypothyroidism Qualifiers: Hypothyroidism type: acquired Qualified Code(s): E03.9 - Hypothyroidism, unspecified (9) Protein calorie malnutrition Qualifiers: Protein-calorie malnutrition severity: moderate Qualified Code(s): E44.0 - Moderate protein-calorie malnutrition (12) Chest pain Qualifiers: Chest pain type: chest pain on breathing Qualified Code(s): R07.1 - Chest pain on breathing; R07.81 - Pleurodynia (13) UTI (urinary tract infection) Qualifiers: Urinary tract infection type: acute cystitis Hematuria presence: without hematuria Qualified Code(s): N30.00 - Acute cystitis without hematuria
[2018-08-20] MEDS ORDERED: 0.9 % Sodium Chloride 1,000 ML ONE (13:23)
[2018-08-20] MEDS ORDERED: *HR* Heparin 10,000 UNIT/10 ML VIAL ONE (13:23)
--- NOTE | 2018-08-20 14:11 | Palliative - Consult Note ---
Date of Encounter: 08/20/18 Time of Encounter: 15:00 - Assessment and Plan (1) Generalized pain Current Visit: Yes Status: Acute Assessment and plan: Has had one time dose Oxycodone ordered if needed. Will monitor (2) Anxiety Current Visit: Yes Status: Acute Assessment and plan: One time dose 0.5 lorazepam oral concentrate. She had such acute change in mental status, most likely delirium. She has not taken po meds today, and did not participate with speech therapy. D/W Dr. Alexander - will trial scheduled Haloperidol today and re-evaluate in am. Hold respiridal tonight, as she is quite agitated and may not be able to take po meds this evening. (3) COPD (chronic obstructive pulmonary disease) Current Visit: No Status: Chronic Qualifiers: Qualified Code(s): J44.9 - Chronic obstructive pulmonary disease, unspecified (4) Interstitial lung disease Current Visit: Yes Status: Chronic (5) Protein calorie malnutrition Current Visit: Yes Status: Chronic Assessment and plan: Speech therapy saw this am, but pt too agitated and confused to participate. Qualifiers: Protein-calorie malnutrition severity: moderate Qualified Code(s): E44.0 - Moderate protein-calorie malnutrition (6) Debility, unspecified Current Visit: No Status: Chronic (7) ESRD (end stage renal disease) on dialysis Current Visit: No Status: Chronic Assessment and plan: Nephrology following closely. Has had dialysis x3 consecutive days. Palliative-CN HPI - Data of Consult Consult date: 08/20/18 Requesting Physician: Pasha Alexander MD Primary Care Provider: PCP NONE - Consult Narrative History of present illness: Ms. Parra is a 72 year old female with many medical conditions including ESRD o n dialysis, CHF, Atrial fibrillation, COPD, short gut syndrome s/p ileostomy, has urostomy, who presented with chest pain. She is currently confused and agitated and unable to give any history, so information obtained from medical record. Her symptoms quickly resolved during the ED visit. She has had previous hospitalization for malnutrition/dehydration r/t high ileostomy output, and at one time was on cyclic TPN, however, after this was set up and initiated at home, she refused to continue it and has been just doing oral feedings. She has always refused ECF placement and demanded to go home. Her brother and niece live with her and help provide care. She was alert and oriented x4 just 2 days ago, and desired to go home with family. She had missed several dialysis session r/t difficulty with access, and new line was placed here. She had altered mental status yesterday, making inappropriate statements, and this has worsened. This am during my visit, she is yelling and not following any commands or answering questions. She has been hypotensive this am. She does not recognize niece Christina that is present in the room with her. She is c/o pain, and repeating "I want to lay down" with every question. CT head is pending. Nephrology has been following closely. She has had dialysis 3 consecutive days. CC: Pasha Alexander MD - Time Spent with Patient Time: Total time spent is greater than 50% in coordination of care (as documented) at patient's floor/unit and/or counseling patient: Greater than 35 minutes Past Med Surg Social Fam HX - Past Medical History Medical history: asthma, atrial fibrillation, COPD, GERD, hypertension, renal disease, thyroid disease, other Additional medical history: on dialysis Psychiatric history: anxiety, depression - Past Surgical History Surgical History: appendectomy, cholecystectomy, colostomy, herniorrhaphy, hysterectomy, other Additional surgical history: urostomy, carpal tunnel, colostomy - Social History Smoking Status: Current every day smoker Smokeless Tobacco Status: No Alcohol use: none Drug use: none - Family History Mother Adopted: No Living Status: Hx Family Cardiac Disorders: Yes ([place]/ Stroke) Hx Family Respiratory Disorders: No Hx Family Cancer: No Hx Family GI Disorders: No Hx Family Endocrine Disorder: No Hx Family Neuromuscular Disorders: No Hx Family Neurologic Disorders: No Hx Family HEENT Disorders: No Hx Family Autoimmune Disorders: No Father Adopted: No Living Status: Hx Family Cardiac Disorders: Yes ([place]) Hx Family Respiratory Disorders: No Hx Family Cancer: No Hx Family GI Disorders: No Hx Family Endocrine Disorder: No Hx Family Neuromuscular Disorders: No Hx Family Neurologic Disorders: No Hx Family HEENT Disorders: No Hx Family Autoimmune Disorders: No Brother Living Status: Still Living Hx Family Cardiac Disorders: Yes Hx Family Respiratory Disorders: No Hx Family Endocrine Disorder: Yes Medications and Allergies Ranitidine HCl [Zantac] 150 mg PO HS 09/19/15 [History] Renal Vitamin [Renal Caps Softgel] 1 mg PO DAILY 06/30/17 [History] Calcium Acetate [Phos-LO] 667 mg PO TIDWM 10/17/17 [History] Ferrous Sulfate 325 mg PO DAILY 11/14/17 [History] Gabapentin [Neurontin] 100 mg PO TID #30 capsule 12/15/17 [Rx] Nitroglycerin 0.4 mg SL Q5MIN PRN tab.subl 12/15/17 [Rx] traZODone [TraZODone] 25 mg PO HS 02/08/18 [History] Calcitriol [Rocaltrol] 0.25 mcg PO DAILY 03/24/18 [History] Levothyroxine Sodium [Synthroid] 300 mcg PO DAILY 03/24/18 [History] Fluticasone Propionate Nasal [Flonase] 50 mcg NS DAILY bottle 03/25/18 [Rx] Cyanocobalamin (B-12) [Vitamin B12] 1,000 mcg IM QMONTH 08/17/18 [History] Digoxin [Lanoxin] 0.125 mg PO MOWEFR 08/17/18 [History] Midodrine HCl 10 mg PO DAILY 08/17/18 [History] Allergy/AdvReac Type Severity Reaction Status Date / Time codeine AdvReac Severe Vomiting Verified 07/13/18 12:40 naproxen [From Naprosyn] AdvReac Severe Vomiting Verified 07/13/18 12:40 ROS unobtainable: due to mental status Palliative Care-Exam - Constitutional Vitals: Temp Pulse Resp BP Pulse Ox 98.0 F 88 20 111/59 97 08/19/18 23:31 08/19/18 23:31 08/20/18 07:15 08/19/18 23:31 08/20/18 07:15 General appearance: Present: disheveled, thin - Head Head Exam: Present: normal inspection, normocephalic - Respiratory Respiratory exam: Present: CTAB Additional comments: Patient yelling/moaning during exam, difficult to auscultate - Cardiovascular Cardiovascular exam: Present: +S1, +S2 - GI/Abdominal Exam GI/Abdominal exam: Present: diminished bowel sounds, soft additional comments: Ileostomy with small amount brown liquid stool - Additional comments: Urostomy intact with scant drainage - Extremities Exam Extremities exam: Present: normal capillary refill, normal inspection - Neurological Exam Additional comments: Awake, yelling. Does not follow commands. Does not recognize family members in room. KRISTY. - Skin Skin exam: Present: dry, warm Internal Medicine - CN: Reslt - Labs CBC & Chem 7: 08/19/18 06:50 08/19/18 06:50 - ABG Interpretation ABG results: PT/INR, D-dimer PT 20.0 Seconds (9.4-12.1) H 08/18/18 05:15 Consult Discharge Plan - Plan Referrals: NONE,PCP [Primary Care Provider] - Palliative Quality Palliative Quality: Screen for Code Status: Yes, Screen for Goals of Care: Yes, Screen for Pain: Yes, If Pain Regimen Started, Initiate Bowel Regimen: NA, Screen for Nausea/Vomitting: Yes Code Status: 08/20/18 13:56 DNR [Resuscitation Status: Active] [RES] Routine Comment: Resuscitation Status: [id number]
[2018-08-20] MEDS ORDERED: *HR* LORazepam Oral Conc 2 MG/ML SL PRN (15:25)
[2018-08-20] MEDS ORDERED: *HR* LORazepam Oral Conc 2 MG/ML SL ONE (15:45)
--- NOTE | 2018-08-20 16:20 | Electrocardiograph Report ---
[place] [id number] Test Date: 2018-08-18 Pat Name: Vannessa Parra Department: 109 Room: 2A Gender: F Devops: KLAUDIA : 1945 Requested By: Braxton Deal Order Number: [id number] Reading MD: Ashley Falcon Measurements Intervals [place] Rate: 86 P: 81 ME: 157 QRS: 74 QRSD: 100 T: 89 QT: 334 QTc: 377 Interpretive Statements SINUS RHYTHM NONSPECIFIC ST-WAVE ABNORMALITY Electronically Signed On 08-20-2018 16:18:30 EDT by Ashley Falcon
[2018-08-20] MEDS: Fluticasone Propionate Nasal 50 MCG/SPRAY BOTTLE NS SCH (18:21)
[2018-08-20] MEDS: Haloperidol Lactate 5 MG/ML VIAL IVP SCH (18:24)
[2018-08-20] MEDS: Famotidine 20 MG TABLET PO SCH (22:06)
[2018-08-21] MEDS: Haloperidol Lactate 5 MG/ML VIAL IVP SCH ×4 (00:16→19:12)
[2018-08-21 02:45] LABS: Hematocrit 32.6 % (35.3-44.9); Mean Corpuscular HGB Conc 31.9 g/dL (31.6-35.5); Mean Corpuscular Hemoglobin 31.6 pg (28.0-33.3); Mean Corpuscular Volume 99.1 fL (83.0-100.0); Mean Platelet Volume 11.1 fL (9.4-12.4); Platelet Count 108 K/mcL (140-400); Red Blood Count 3.29 M/mcL (3.82-4.97); Red Cell Distribution Width 14.6 % (11.5-14.5)
[2018-08-21 03:00] LABS: Hemoglobin 10.4 g/dL (11.5-15.4)
[2018-08-21 03:06] LABS: Calcium 8.6 mg/dL (8.6-10.3); Potassium 3.7 mEq/L (3.5-5.1)
[2018-08-21] MEDS: Ipratropium/Albuterol Neb 3 ML IH SCH ×6 (03:13→23:03)
[2018-08-21] MEDS ORDERED: Dextrose Gel 15 GM/37.5 ML TUBE PO PRN ×2 (03:55)
[2018-08-21] MEDS ORDERED: D5% in Water 1,000 ML IVC PRN (03:55)
[2018-08-21] MEDS: *HR* Dextrose 50 % in Water (Syg) 50 ML SYRINGE IVP PRN ×2 (04:06→16:22)
[2018-08-21] MEDS ORDERED: 0.9 % Sodium Chloride 250 ML IVC PRN (07:52)
[2018-08-21] MEDS ORDERED: *HR* Heparin 10,000 UNIT/10 ML VIAL IV PRN (07:52)
[2018-08-21] MEDS ORDERED: 0.9 % Sodium Chloride 1,000 ML PRIME SCH (08:00)
--- NOTE | 2018-08-21 08:10 | Nephrology Progress Note ---
Date of Encounter: 08/21/18 Time of Encounter: 08:07 - Assessment and Plan (1) ESRD (end stage renal disease) on dialysis Current Visit: No Status: Chronic HD TRS. Renal vitamins. Renal dose medications. Renal diet. Additional dialysis and ultrafiltration as needed. Access malfunctioned 08/18/2018. Attempted, but was unable to get a fistulogram secondary to patient vomiting at beginning of the procedure. Temp line placed 08/18/2018. Will order dialysis today. 4K bath secondary (2) Encephalopathy Current Visit: Yes Status: Acute Patient with altered mental status this morning. Etiology is not completely clear. She does not seem to have an infection or new intra-abdominal pathology at this time. Her vitals are stable. Review of medications reveals the administration of gabapentin. Discontinued gabapentin. Plan for dialysis today. She is more alert, but not oriented today. (3) Anemia in chronic kidney disease Current Visit: No Status: Chronic Monitor for bleeding. Transfuse as needed. Stopped iron supplementation as iron saturation is 81% Qualifiers: Chronic kidney disease stage: on chronic dialysis Qualified Code(s): N18.6 - End stage renal disease; D63.1 - Anemia in chronic kidney disease; Z99.2 - Dependence on renal dialysis (4) Chest pain Current Visit: No Status: Chronic Qualifiers: Chest pain type: chest pain on breathing Qualified Code(s): R07.1 - Chest pain on breathing; R07.81 - Pleurodynia (5) Severe malnutrition Current Visit: No Status: Chronic Continue supplements. (6) Vitamin D deficiency Current Visit: Yes Status: Acute Ergocalciferol ordered. Subjective Principal diagnosis: ESRD Interval history: Patient seen and evaluated. She is more alert than yesterday, but not oriented. She keeps moaning "Help me", but will not respond to questions. Objective - Vital Signs Vital signs: Vital Signs Temp Pulse Resp BP Pulse Ox 08/21/18 08:03 97.7 F 96 16 101/58 93 08/21/18 03:44 97.6 F 98 16 101/58 98 08/21/18 03:13 16 100 08/20/18 23:35 97.2 F L 97 16 101/65 97 08/20/18 23:11 16 98 08/20/18 20:54 97.9 F 97 18 99/67 98 08/20/18 20:13 16 100 08/20/18 17:13 97.7 F 92 17 103/63 100 08/20/18 15:52 20 100 Intake and Output 08/20/18 08/21/18 08/21/18 23:59 07:59 15:59 Output Total 100 / 100 Balance -100 / -100 Output: Stool 100 / 100 Other: Weight 52.3 kg Blood Glucose* 75 68 Patient Weight 08/21/18 23:59 Weight 52.3 kg - General Appearance General appearance: Present: well-developed, cachectic EENT: Present: ATNC Neck: Present: supple Respiratory: Present: course breath sounds Cardiology: Present: no edema, regular rate Integumentary: Present: warm and dry Neurologic: Present: confused, disoriented Psychiatric: Present: agitated - Lab 08/21/18 02:27 08/21/18 02:27 Most recent lab results Calcium 8.6 mg/dL (8.6-10.3) 08/21/18 02:27 Phosphorus 15.4 mg/dL (2.7-4.5) H 08/18/18 05:15 Magnesium 1.5 mg/dL (1.6-2.6) L 08/18/18 05:15 Consult Discharge Plan - Plan Referrals: NONE,PCP [Primary Care Provider] -
--- NOTE | 2018-08-21 08:54 | Internal Med Progress Note ---
Hospitalist Progress Note - Encounter Date of Encounter: 08/21/18 Time of Encounter: 08:54 - Subjective Interval History: 72 F with multiple medical co-morbodities admitted and being managed for encephalopathy, following failure of HD access She also complained of CP on arrival and had missed close to 6 days of HD She also is s/p ostomy, urostomy, COPD, Current smoker, Afib not on Anticoagulation due to chronic anemia and thrombocytopenia, hx of bleed into urostomy She was scheduled for discharge home 08/19 after HD but access failed again and a temp line was placed for HD access/ She remains deliriuous, despite multiple HD sessions, Head CT unremarkable for acute events, palliative eval appreciated Patient is less agitated, on haldol Per POA, patient is going to be comfort care and likely transition to hospice if she makes no improvement despite HD We will continue current management She is unco-operative with speech and swallow and has very poor po intake - Exam Vitals: Temp Pulse Resp BP Pulse Ox 97.7 F 96 16 101/58 93 08/21/18 08:03 08/21/18 08:03 08/21/18 08:03 08/21/18 08:03 08/21/18 08:03 Exam: General: Confused, non-meaningful conversation, seems to be in delirium Head: atraumatic, normocephalic, Eye: Anicteric, reactive to light ENT: no neck stiffness, could not appreciated JVD. poor dentition , very dry oral mucosa and lips Chest: thin, inspection WNL Respiratory: decreased breath sounds in all lung stein, no wheezing, insp crackles, chronic Cardiovascular: Regular rate and rhythm. s1 and s2 No clicks, rubs, gallops, or murmors. Abdomen: Bowel sounds present normoactive x-4 quadrants. Abdomen is soft, non- distended. no Epigastric tenderness. No guarding or rebound. scaphoid, has ostomy in the LLQ with good out put , urostomy in RLQ with clear urine musculoskeletal: Spontaneously moving all extremities. no edema, no calf tenderness, cachectic Skin: warm, dry, intact. Neuro: Confused, disoriented, not focused, moves all limbs - Assessment and Plan (1) End-stage renal disease (ESRD) Current Visit: Yes Status: Chronic Assessment and Plan: Renal is following and patient is scheduled for HD daily for now via a temp catheter Fistulogram will be requested according to renal , if patient improves neurolo gically (2) Bicytopenia Current Visit: Yes Status: Chronic Assessment and Plan: has anemia most likely secondary to ESRD chronic continue to monitor CBC FOBT negative iron studies shows acceptable iron level nephrology on board (3) Acute encephalopathy Current Visit: Yes Status: Acute Assessment and Plan: Multifactorial: metabolic/uremic , infectious (patient has UTI), delirium CT head performed in the ED -unremarkable for acute findings neurochecks Q4H seizure, fall, aspiration precautions Requested repeat Head CT today 08/20 Palliative team consulted today, patient's mental status is worsening Continue haldol, risperidone as tolerated, check EKG a.m (4) Interstitial lung disease Current Visit: Yes Status: Chronic Assessment and Plan: continue duonebs oxygen via Nasal cannula keeps sats >92% CTPA- 1. No evidence of acute pulmonary embolism. 2. Prominent main pulmonary artery suggestive of pulmonary arterial hypertension. 3. A pattern of prominent reticulonodular interstitial lung disease which was less pronounced in the previous evaluation. Nodularity is felt to be related to interstitial lung disease rather than neoplasm. No evidence of dominant masses. 4. Scattered mediastinal lymph nodes but no evidence of significant lymphadenopathy. (5) DVT prophylaxis Current Visit: Yes Status: Acute Assessment and Plan: scds (6) Atrial fibrillation Current Visit: Yes Status: Chronic Assessment and Plan: PAF not on AC as per Documentation secondary to anemia currently rate controlled continue home medications-Digoxin, (7) Hypothyroidism Current Visit: Yes Status: Chronic Assessment and Plan: TSH WNL continue home synthroid (8) Colostomy care Current Visit: Yes Status: Chronic Assessment and Plan: as per nursing staff (9) Protein calorie malnutrition Current Visit: Yes Status: Chronic Assessment and Plan: nurtrition consulted , bryson noted BMI 17.4 Continue supplement po (10) Frail elderly Current Visit: Yes Status: Chronic Assessment and Plan: Pt/OT SW and abstract manager consult vitamin D fall, aspiration, seizure precautions (11) Current every day smoker Current Visit: Yes Status: Chronic Assessment and Plan: tobacco cessation counselling done (12) Chest pain Current Visit: Yes Status: Chronic Assessment and Plan: most likely secondary to supply VS demand mismatch in setting of fluid overload cannot rule out underlying CAD ( does have multiple risk factors) Trop negative CP is pleuritic in nature, improved with HD ECHO unremarkable for new findings, EF is preserved, no sig valvular anomalies, wall motion was normal (13) UTI (urinary tract infection) Current Visit: Yes Status: Acute Assessment and Plan: Urine culture with klebsiella oxytoca Continue Ceftriaxone 1g daily-Day 3 (14) Goals of care, counseling/discussion Current Visit: Yes Status: Acute Assessment and Plan: Now DNR-Comfort care - Time Spent with Patient Total time spent is greater than 50% in coordination of care (as documented) at patient's floor/unit and/or counseling patient: Plan of Care Discussed with: family Internal Medicine: Result - Labs CBC & Chem 7: 08/21/18 02:27 08/21/18 02:27 Labs: Short CBC 08/21/18 Range/Units 02:27 WBC 7.0 (4.3-11.1) K/mcL Hgb 10.4 L D (11.5-15.4) g/dL Hct 32.6 L (35.3-44.9) % Plt Count 108 L (140-400) K/mcL BMP 08/21/18 02:27 Sodium 140 Potassium 3.7 Chloride 98 Carbon Dioxide 24 BUN 15 Creatinine 3.19 H Glucose 47 L Calcium 8.6 - ABG Interpretation ABG results: PT/INR, D-dimer PT 20.0 Seconds (9.4-12.1) H 08/18/18 05:15 - Impressions Impressions Chest X-Ray 08/20/18 11:55 IMPRESSION: Question of COPD. Increased lung markings bilaterally, may be related to bronchitis or mild pulmonary vascular congestion. D/ / Tre Jeffers MD / Tre Jeffers MD Interpreting Provider: Tre Jeffers MD Head CT 08/20/18 11:56 IMPRESSION: No acute intracranial abnormality. Increased fluid in the right mastoid air cells. D/ / Dianne Araujo Cha, MD / Dianne Araujo Cha, MD Interpreting Provider: Dianne Araujo Cha, MD Consult Discharge Plan - Plan Referrals: NONE,PCP [Primary Care Provider] - (6) Atrial fibrillation Qualifiers: Atrial fibrillation type: paroxysmal Qualified Code(s): I48.0 - Paroxysmal atrial fibrillation (7) Hypothyroidism Qualifiers: Hypothyroidism type: acquired Qualified Code(s): E03.9 - Hypothyroidism, unspecified (9) Protein calorie malnutrition Qualifiers: Protein-calorie malnutrition severity: moderate Qualified Code(s): E44.0 - Moderate protein-calorie malnutrition (12) Chest pain Qualifiers: Chest pain type: chest pain on breathing Qualified Code(s): R07.1 - Chest pain on breathing; R07.81 - Pleurodynia (13) UTI (urinary tract infection) Qualifiers: Urinary tract infection type: acute cystitis Hematuria presence: without hematuria Qualified Code(s): N30.00 - Acute cystitis without hematuria
[2018-08-21] MEDS: Calcium Acetate 667 MG CAPSULE PO SCH ×3 (10:32→15:31)
[2018-08-21] MEDS: *HR* Digoxin 0.125 MG TABLET PO SCH (10:33)
[2018-08-21] MEDS: Fluticasone Propionate Nasal 50 MCG/SPRAY BOTTLE NS SCH (10:33)
[2018-08-21] MEDS: Aspirin 81 MG TAB.CHEW PO SCH (10:33)
[2018-08-21] MEDS: Renal Vitamin 1 CAP CAPSULE PO SCH (10:33)
--- NOTE | 2018-08-21 10:43 | Palliative Progress Note ---
Date of Encounter: 08/21/18 Time of Encounter: 10:30 - Assessment and plan (1) Generalized pain Current Visit: Yes Status: Acute Assessment and plan: Will begin low dose Oxycodone every 4 hours SL for pain or increase shortness of breath (2) Delirium Current Visit: Yes Status: Acute Assessment and plan: Appears less agitated than yesterday, still very restless and confused. Haldol currently 1mg every 6 hours scheduled. Speech was still not able to work with her this am, so oral medications have been a issue. (3) Anxiety Current Visit: Yes Status: Acute (4) Goals of care, counseling/discussion Current Visit: Yes Status: Acute Assessment and plan: This patient's brother, Francis, thought that he had medical power of patent prosecution attorney. Patient's niece Christina, brought in his POA, but this was financial only and did not include healthcare decisions. Discussed with them that by state law, pt son would be next of kin and need to be contacted. Christina verbalized understanding. Patient's son Hany arrived from [place] late last pm, and contacted me via phone. Long discussion regarding her current clinical status, including new mental status change/delirium, and goals of care. Hany expressed how he is aware of her many medical problems and that she is fragile. He does not want any resuscitative measures taken for pt if she should further decline, and was a waiting further test results. (She was down at CT during our conversation). He did transition code status to DNR-Comfort Care over the phone and I told him last night, would call for update today. Friday update - spoke with son Hany over telephone. Updated on CT scan, CXR, labwork. No etiology for delirium found. Discussed that sometimes cannot find a cause, possibly r/t overall debility, hospitalization, multiple medical problems. He verbalized understanding. Hany states that if pt does not improve by first of week, will discuss hospice care. Discussed that no further dialysis would be done, and she would likely pass away within days to couple weeks. I did touch base with niece Christina, that if son decides to transition to hospice care and she would be discharged, if they could provide care for her at home, or if they would consider ECF placement. Christina stated she would talk to patient's brother, but believes they could provide the care needed. D/W Dr. Alexander. (5) COPD (chronic obstructive pulmonary disease) Current Visit: No Status: Chronic Qualifiers: Qualified Code(s): J44.9 - Chronic obstructive pulmonary disease, unspecified (6) Interstitial lung disease Current Visit: Yes Status: Chronic (7) Protein calorie malnutrition Current Visit: Yes Status: Chronic Qualifiers: Protein-calorie malnutrition severity: moderate Qualified Code(s): E44.0 - Moderate protein-calorie malnutrition (8) Debility, unspecified Current Visit: No Status: Chronic (9) ESRD (end stage renal disease) on dialysis Current Visit: No Status: Chronic Assessment and plan: Nephro following. Receiving dialysis this am - Time Spent With Patient Total time spent is greater than 50% in coordination of care (as documented) at patient's floor/unit and/or counseling patient: - Subjective Interval history: Patient seen in dialysis. Moaning with eyes closed. Opens eyes with assessment, and continually states, "Help me". Does not follow commands or an swers other questions. - Constitutional Vitals: Abnormal lab results RBC 3.29 M/mcL (3.82-4.97) L 08/21/18 02:27 Hgb 10.4 g/dL (11.5-15.4) L D 08/21/18 02:27 Hct 32.6 % (35.3-44.9) L 08/21/18 02:27 RDW 14.6 % (11.5-14.5) H 08/21/18 02:27 Plt Count 108 K/mcL (140-400) L 08/21/18 02:27 Platelet Estimate Slight Decrease (Normal) L 08/17/18 07:48 PT 20.0 Seconds (9.4-12.1) H 08/18/18 05:15 Creatinine 3.19 mg/dL (0.60-1.20) H 08/21/18 02:27 Est GFR ( Amer) 17 (> 60) L 08/21/18 02:27 Est GFR (Non-Af Amer) 14 (> 60) L 08/21/18 02:27 BUN/Creatinine Ratio 5 (6-26) L 08/21/18 02:27 Glucose 47 mg/dL (70-105) L 08/21/18 02:27 POC Glucose 68 mg/dL (70-99) L 08/21/18 07:59 Phosphorus 15.4 mg/dL (2.7-4.5) H 08/18/18 05:15 Magnesium 1.5 mg/dL (1.6-2.6) L 08/18/18 05:15 % Saturation 81 % (15-50) H 08/18/18 05:15 Transferrin 91 mg/dL (203-362) L 08/18/18 05:15 AST 8 Units/L (13-39) L 08/17/18 07:48 ALT 4 Units/L (7-52) L 08/17/18 07:48 Troponin I 0.09 ng/mL (< 0.04) H* 08/17/18 20:59 Serum Total Protein 5.9 g/dL (6.4-8.9) L 08/17/18 07:48 Albumin 3.2 g/dL (3.5-5.7) L 08/17/18 07:48 HDL Cholesterol 28 mg/dL (40-59) L 08/18/18 05:15 25-OH Vitamin D Total 14 ng/mL (30-80) L 08/18/18 05:15 Urine Clarity Turbid (Clear) A 08/17/18 10:34 Urine Protein 100 mg/dL (Neg-Trace) H 08/17/18 10:34 Urine Blood Moderate (Negative) H 08/17/18 10:34 Urine Microscopic RBC 15-30 per hpf (0-3) H 08/17/18 10:34 Urine Microscopic WBC 50-100 per hpf (0-3) H 08/17/18 10:34 Ur Squamous Epith Cells Moderate per lpf (None-Few) H 08/17/18 10:34 Urine Bacteria Many per hpf (None-Few) H 08/17/18 10:34 Granular Casts Few per lpf (None Seen) H 08/17/18 10:34 General appearance: Present: no acute distress - Respiratory Respiratory exam: Present: decreased breath sounds Additional comments: Shallow inspiratory effort - Cardiovascular Cardiovascular exam: Present: +S1, +S2 - GI/Abdominal GI/Abdominal exam: Present: normal bowel sounds, soft Additional comments: Ileostomy intact - Additional comments: Urostomy intact - Extremities Exam Extremities exam: Present: normal capillary refill, normal inspection - Neurological Exam Additional comments: Restless - does not follow command. Continually states "help me". KRISTY. - Skin Skin exam: Present: dry, pallor, warm Palliative Quality Palliative Quality: Screen for Code Status: Yes, Screen for Goals of Care: Yes, Screen for Pain: Yes, If Pain Regimen Started, Initiate Bowel Regimen: NA, Sc reen for Nausea/Vomitting: Yes Code Status: 08/20/18 13:56 DNR [Resuscitation Status: Active] [RES] Routine Comment: Resuscitation Status: [id number] 08/20/18 21:28 DNR [Resuscitation Status: Active] [RES] Routine Comment: Resuscitation Status: DNR-Comfort Care - Labs CBC & Chem 7: 08/21/18 02:27 08/21/18 02:27 Labs: Laboratory Results - last 24 hr 08/21/18 08/21/18 08/21/18 02:27 02:27 04:05 WBC 7.0 RBC 3.29 L Hgb 10.4 L D Hct 32.6 L MCV 99.1 MCH 31.6 MCHC 31.9 RDW 14.6 H Plt Count 108 L MPV 11.1 Sodium 140 Potassium 3.7 Chloride 98 Carbon Dioxide 24 BUN 15 Creatinine 3.19 H Est GFR ( Amer) 17 L Est GFR (Non-Af Amer) 14 L BUN/Creatinine Ratio 5 L Glucose 47 L POC Glucose 56 L Calculated Osmolality 288 Calcium 8.6 08/21/18 08/21/18 08/21/18 04:32 05:51 05:57 WBC RBC Hgb Hct MCV MCH MCHC RDW Plt Count MPV Sodium Potassium Chloride Carbon Dioxide BUN Creatinine Est GFR ( Amer) Est GFR (Non-Af Amer) BUN/Creatinine Ratio Glucose POC Glucose 133 H 75 86 Calculated Osmolality Calcium 08/21/18 07:59 WBC RBC Hgb Hct MCV MCH MCHC RDW Plt Count MPV Sodium Potassium Chloride Carbon Dioxide BUN Creatinine Est GFR ( Amer) Est GFR (Non-Af Amer) BUN/Creatinine Ratio Glucose POC Glucose 68 L Calculated Osmolality Calcium - Impressions Impressions Chest X-Ray 08/20/18 11:55 IMPRESSION: Question of COPD. Increased lung markings bilaterally, may be related to bronchitis or mild pulmonary vascular congestion. D/ / Tre Jeffers MD / Tre Jeffers MD Interpreting Provider: Tre Jeffers MD Head CT 08/20/18 11:56 IMPRESSION: No acute intracranial abnormality. Increased fluid in the right mastoid air cells. D/ / Dianne Araujo Cha, MD / Dianne Araujo Cha, MD Interpreting Provider: Dianne Araujo Cha, MD - ABG Interpretation ABG results: PT/INR, D-dimer PT 20.0 Seconds (9.4-12.1) H 08/18/18 05:15 Consult Discharge Plan - Plan Referrals: NONE,PCP [Primary Care Provider] -
[2018-08-21] MEDS: OXYCODONE Oral CONC 10 MG/0.5 ML ORAL.SYG SL PRN ×2 (12:38→16:22)
[2018-08-21] MEDS: cefTRIAXone 1,000 MG in Water for inj. (sterile) 20 ML 10 ML IVP SCH (12:39)
[2018-08-22] MEDS: risperiDONE 0.25 MG TABLET PO SCH ×2 (01:42→22:17)
[2018-08-22] MEDS: Famotidine 20 MG TABLET PO SCH ×2 (01:42→22:17)
[2018-08-22] MEDS: Ipratropium/Albuterol Neb 3 ML IH SCH ×6 (03:54→23:07)
[2018-08-22 05:52] LABS: Hematocrit 33.5 % (35.3-44.9); Hemoglobin 11.1 g/dL (11.5-15.4); Mean Corpuscular HGB Conc 33.1 g/dL (31.6-35.5); Mean Corpuscular Hemoglobin 32.1 pg (28.0-33.3); Mean Corpuscular Volume 96.8 fL (83.0-100.0); Mean Platelet Volume 11.3 fL (9.4-12.4); Platelet Count 105 K/mcL (140-400); Red Blood Count 3.46 M/mcL (3.82-4.97); Red Cell Distribution Width 14.6 % (11.5-14.5)
[2018-08-22 06:11] LABS: Calcium 8.8 mg/dL (8.6-10.3); Potassium 3.8 mEq/L (3.5-5.1)
[2018-08-22] MEDS: Haloperidol Lactate 5 MG/ML VIAL IVP SCH ×4 (06:12→18:02)
--- NOTE | 2018-08-22 07:11 | Nephrology Progress Note ---
Addendum entered and electronically signed by Chet Buenrostro MD 08/22/18 19:58: I examined this patient and discussed the medical decision-making with TYLER Mchugh. I agree with the documented findings, disposition and treatment plan as described except to the extent set forth below. Original Note: Date of Encounter: 08/22/18 Time of Encounter: 07:08 - Assessment and Plan (1) ESRD (end stage renal disease) on dialysis Current Visit: No Status: Chronic Had HD yesterday, will hold dialysis today; re-evaluate tomorrow Access malfunctioned 08/18/2018, Temp line placed 08/18/2018. Normal HD days are T,TH,Sat Avoid nephrotoxins if possible Family to make decision first of the week re: whether to place patient on hospice. (2) Anemia in chronic kidney disease Current Visit: No Status: Chronic Hgb 11.1 Goal hgb 10-12 Qualifiers: Chronic kidney disease stage: on chronic dialysis Qualified Code(s): N18.6 - End stage renal disease; D63.1 - Anemia in chronic kidney disease; Z99.2 - Dependence on renal dialysis (3) Severe malnutrition Current Visit: No Status: Chronic Continue supplements (4) Encephalopathy Current Visit: Yes Status: Acute Patient does not make eye contact with me nor does she answer any questions this morning Subjective Principal diagnosis: ESRD Interval history: Patient seen and examined. Eyes open but she does not respond to me, does not answer questions, does not make eye contact. Objective - Vital Signs Vital signs: Vital Signs Temp Pulse Resp BP Pulse Ox 08/22/18 06:38 97.6 F 97 16 107/54 98 08/22/18 05:48 97.6 F 88 18 125/74 98 08/22/18 03:55 16 97 08/22/18 01:14 97.5 F L 93 16 128/75 98 08/21/18 23:05 16 98 08/21/18 21:24 97.8 F 90 17 120/74 99 08/21/18 20:14 18 91 08/21/18 16:10 16 97 08/21/18 16:07 98.0 F 93 16 127/75 99 08/21/18 12:10 97.3 F L 18 107/60 08/21/18 11:45 95/53 08/21/18 11:30 95/49 08/21/18 11:15 102/57 08/21/18 11:00 91/62 08/21/18 10:45 97/62 08/21/18 10:30 110/63 08/21/18 10:15 99/56 08/21/18 10:00 94/46 08/21/18 09:45 94/54 08/21/18 09:30 94/52 08/21/18 09:15 77/52 08/21/18 09:00 97.0 F L 18 102/58 08/21/18 08:03 97.7 F 96 16 101/58 93 08/21/18 07:42 16 98 Intake and Output 08/21/18 08/21/18 08/22/18 15:59 23:59 07:59 Intake Total 600 / 600 Output Total 125 / 125 Balance 475 / 475 Intake: Intake, Rinseback and Flushes 600 / 600 Output: Total Dialysis (HD) Output 125 / 125 Other: Blood Glucose* 61 69 75 Hemodialysis Net Fluid Removed 0 (mL) - General Appearance General appearance: Present: cachectic, chronically ill EENT: Present: ATNC, mucous membranes dry Neck: Present: supple Respiratory: Present: clear Cardiology: Present: no edema, normal S1, normal S2 Dialysis Vascular Access: Venous Catheter Gastrointestinal: Present: no tenderness, no guarding Integumentary: Present: warm and dry Neurologic: Present: confused, obtunded, aphasic - Lab 08/22/18 05:42 08/22/18 05:42 Most recent lab results Calcium 8.8 mg/dL (8.6-10.3) 08/22/18 05:42 Phosphorus 15.4 mg/dL (2.7-4.5) H 08/18/18 05:15 Magnesium 1.5 mg/dL (1.6-2.6) L 08/18/18 05:15 Consult Discharge Plan - Plan Referrals: NONE,PCP [Primary Care Provider] -
[2018-08-22] MEDS: cefTRIAXone 1,000 MG in Water for inj. (sterile) 20 ML 10 ML IVP SCH (09:53)
[2018-08-22] MEDS: Calcium Acetate 667 MG CAPSULE PO SCH ×3 (09:54→16:28)
[2018-08-22] MEDS: Aspirin 81 MG TAB.CHEW PO SCH (09:54)
[2018-08-22] MEDS: Renal Vitamin 1 CAP CAPSULE PO SCH (09:54)
[2018-08-22] MEDS: Fluticasone Propionate Nasal 50 MCG/SPRAY BOTTLE NS SCH (09:54)
[2018-08-22] MEDS: OXYCODONE Oral CONC 10 MG/0.5 ML ORAL.SYG SL PRN ×3 (10:00→22:15)
--- NOTE | 2018-08-22 10:00 | Internal Med Progress Note ---
Hospitalist Progress Note - Encounter Date of Encounter: 08/22/18 Time of Encounter: 10:00 - Subjective Interval History: 72 F with multiple medical co-morbodities admitted and being managed for encephalopathy, following failure of HD access She also complained of CP on arrival and had missed close to 6 days of HD She also is s/p ostomy, urostomy, COPD, Current smoker, Afib not on Anticoagulation due to chronic anemia and thrombocytopenia, hx of bleed into urostomy She was scheduled for discharge home 08/19 after HD but access failed again and a temp line was placed for HD access Seen and evaluated at bedside She is medicated but easily rousable and is oriented to place and person She denies any complains We will request repeat speech and swallow eval for possible diet, R to perform bedside Patient is currently stable She is DNR-CC - Exam Vitals: Temp Pulse Resp BP Pulse Ox 97.6 F 97 18 107/54 97 08/22/18 06:38 08/22/18 06:38 08/22/18 07:22 08/22/18 06:38 08/22/18 07:22 Exam: General: Sleeping but rousable Head: atraumatic, normocephalic, Eye: Anicteric, reactive to light ENT: no neck stiffness, could not appreciated JVD. poor dentition , very dry oral mucosa Chest: thin, inspection WNL Respiratory: decreased breath sounds in all lung stein, no wheezing, insp crackles, chronic Cardiovascular: Regular rate and rhythm. s1 and s2 No clicks, rubs, gallops, or murmors. Abdomen: Bowel sounds present normoactive x-4 quadrants. Abdomen is soft, non- distended. no Epigastric tenderness. No guarding or rebound. scaphoid, has ostomy in the LLQ with good out put , urostomy in RLQ with clear urine musculoskeletal: Spontaneously moving all extremities. no edema, no calf tenderness, cachectic Skin: warm, dry, intact. Neuro: Rousable, oriented to place and eprson, moves all extremities equally - Assessment and Plan (1) End-stage renal disease (ESRD) Current Visit: Yes Status: Chronic Assessment and Plan: Renal is following and patient is scheduled for HD daily for now via a temp catheter Fistulogram will be requested according to renal , if patient improves neurologically (2) Bicytopenia Current Visit: Yes Status: Chronic Assessment and Plan: has anemia most likely secondary to ESRD chronic continue to monitor CBC FOBT negative iron studies shows acceptable iron level nephrology on board (3) Acute encephalopathy Current Visit: Yes Status: Acute Assessment and Plan: Multifactorial: metabolic/uremic , infectious (patient has UTI), delirium CT head performed in the ED -unremarkable for acute findings neurochecks Q4H seizure, fall, aspiration precautions Head CT unremarkable Palliative team consulted , appreciate input Continue haldol, Check EKG and adjust haldol dose prn If patient starts to take po, change haldol to risperidone (4) Interstitial lung disease Current Visit: Yes Status: Chronic Assessment and Plan: continue duonebs oxygen via Nasal cannula keeps sats >92% CTPA- 1. No evidence of acute pulmonary embolism. 2. Prominent main pulmonary artery suggestive of pulmonary arterial hypertension. 3. A pattern of prominent reticulonodular interstitial lung disease which was less pronounced in the previous evaluation. Nodularity is felt to be related to interstitial lung disease rather than neoplasm. No evidence of dominant masses. 4. Scattered mediastinal lymph nodes but no evidence of significant lymphadenopathy. (5) DVT prophylaxis Current Visit: Yes Status: Acute Assessment and Plan: scds (6) Atrial fibrillation Current Visit: Yes Status: Chronic Assessment and Plan: PAF not on AC as per Documentation secondary to anemia currently rate controlled continue home medications-Digoxin, (7) Hypothyroidism Current Visit: Yes Status: Chronic Assessment and Plan: TSH WNL continue home synthroid (8) Colostomy care Current Visit: Yes Status: Chronic Assessment and Plan: as per nursing staff (9) Protein calorie malnutrition Current Visit: Yes Status: Chronic Assessment and Plan: nurtrition consulted , bryson noted BMI 17.4 Continue supplement po (10) Frail elderly Current Visit: Yes Status: Chronic Assessment and Plan: Pt/OT SW and performance improvement manager consult vitamin D fall, aspiration, seizure precautions (11) Current every day smoker Current Visit: Yes Status: Chronic Assessment and Plan: tobacco cessation counselling done (12) Chest pain Current Visit: Yes Status: Chronic Assessment and Plan: most likely secondary to supply VS demand mismatch in setting of fluid overload cannot rule out underlying CAD ( does have multiple risk factors) Trop negative CP is pleuritic in nature, improved with HD ECHO unremarkable for new findings, EF is preserved, no sig valvular anomalies, wall motion was normal (13) UTI (urinary tract infection) Current Visit: Yes Status: Acute Assessment and Plan: Urine culture with klebsiella oxytoca Continue Ceftriaxone 1g daily-Day 4 (14) Goals of care, counseling/discussion Current Visit: Yes Status: Acute Assessment and Plan: Now DNR-Comfort care Per family, if patient not improving by next week, will transition to hospice - Time Spent with Patient Total time spent is greater than 50% in coordination of care (as documented) at patient's floor/unit and/or counseling patient: Plan of Care Discussed with: patient Internal Medicine: Result - Labs CBC & Chem 7: 08/22/18 05:42 08/22/18 05:42 Labs: Short CBC 08/22/18 Range/Units 05:42 WBC 6.9 (4.3-11.1) K/mcL Hgb 11.1 L (11.5-15.4) g/dL Hct 33.5 L (35.3-44.9) % Plt Count 105 L (140-400) K/mcL BMP 08/22/18 05:42 Sodium 139 Potassium 3.8 Chloride 99 Carbon Dioxide 27 BUN 12 Creatinine 2.94 H Glucose 72 Calcium 8.8 - ABG Interpretation ABG results: PT/INR, D-dimer PT 20.0 Seconds (9.4-12.1) H 08/18/18 05:15 Consult Discharge Plan - Plan Referrals: NONE,PCP [Primary Care Provider] - (6) Atrial fibrillation Qualifiers: Qualified Code(s): I48.0 - Paroxysmal atrial fibrillation (7) Hypothyroidism Qualifiers: Qualified Code(s): E03.9 - Hypothyroidism, unspecified (9) Protein calorie malnutrition Qualifiers: Qualified Code(s): E44.0 - Moderate protein-calorie malnutrition (12) Chest pain Qualifiers: Qualified Code(s): R07.1 - Chest pain on breathing; R07.81 - Pleurodynia (13) UTI (urinary tract infection) Qualifiers: Qualified Code(s): N30.00 - Acute cystitis without hematuria
--- NOTE | 2018-08-22 11:45 | Palliative Progress Note ---
Date of Encounter: 08/22/18 Time of Encounter: 09:00 - Assessment and plan (1) Goals of care, counseling/discussion Current Visit: No Status: Acute Assessment and plan: Family aware of current medical status and prognosis, to discuss hospice care next week if pt does not improve. (2) Encephalopathy Current Visit: Yes Status: Acute (3) Generalized pain Current Visit: Yes Status: Acute Assessment and plan: On Oxycodone SL 5 mg q4hrs prn, received 3 doses in 24hrs (4) Delirium Current Visit: Yes Status: Acute Assessment and plan: Pt still restless when awake, but cooperative. will continue Haldol scheduled 1mg q6hrs. Pt has failed COMPENSATOR yesterday. (5) ESRD (end stage renal disease) Current Visit: No Status: Chronic Assessment and plan: management per nephrology - Time Spent With Patient Total time spent is greater than 50% in coordination of care (as documented) at patient's floor/unit and/or counseling patient: less than 15 minutes - Subjective Interval history: Pt was sleeping comfortably, and easily aroused, but became fidgety on arousal. she is receiving haldol q6hrs scheduled and Oxycodone for pain. As per nurse she had an uneventful night. - Constitutional Vitals: Abnormal lab results RBC 3.46 M/mcL (3.82-4.97) L 08/22/18 05:42 Hgb 11.1 g/dL (11.5-15.4) L 08/22/18 05:42 Hct 33.5 % (35.3-44.9) L 08/22/18 05:42 RDW 14.6 % (11.5-14.5) H 08/22/18 05:42 Plt Count 105 K/mcL (140-400) L 08/22/18 05:42 Platelet Estimate Slight Decrease (Normal) L 08/17/18 07:48 PT 20.0 Seconds (9.4-12.1) H 08/18/18 05:15 Creatinine 2.94 mg/dL (0.60-1.20) H 08/22/18 05:42 Est GFR ( Amer) 19 (> 60) L 08/22/18 05:42 Est GFR (Non-Af Amer) 16 (> 60) L 08/22/18 05:42 BUN/Creatinine Ratio 4 (6-26) L 08/22/18 05:42 Phosphorus 15.4 mg/dL (2.7-4.5) H 08/18/18 05:15 Magnesium 1.5 mg/dL (1.6-2.6) L 08/18/18 05:15 % Saturation 81 % (15-50) H 08/18/18 05:15 Transferrin 91 mg/dL (203-362) L 08/18/18 05:15 AST 8 Units/L (13-39) L 08/17/18 07:48 ALT 4 Units/L (7-52) L 08/17/18 07:48 Troponin I 0.09 ng/mL (< 0.04) H* 08/17/18 20:59 Serum Total Protein 5.9 g/dL (6.4-8.9) L 08/17/18 07:48 Albumin 3.2 g/dL (3.5-5.7) L 08/17/18 07:48 HDL Cholesterol 28 mg/dL (40-59) L 08/18/18 05:15 25-OH Vitamin D Total 14 ng/mL (30-80) L 08/18/18 05:15 Urine Clarity Turbid (Clear) A 08/17/18 10:34 Urine Protein 100 mg/dL (Neg-Trace) H 08/17/18 10:34 Urine Blood Moderate (Negative) H 08/17/18 10:34 Urine Microscopic RBC 15-30 per hpf (0-3) H 08/17/18 10:34 Urine Microscopic WBC 50-100 per hpf (0-3) H 08/17/18 10:34 Ur Squamous Epith Cells Moderate per lpf (None-Few) H 08/17/18 10:34 Urine Bacteria Many per hpf (None-Few) H 08/17/18 10:34 Granular Casts Few per lpf (None Seen) H 08/17/18 10:34 Exam: Vitals reviewed General appearance: appears comfortable, Chest: bilateral: reduced air entry, normal effort Cardiovascular: regular rate and rhythm Gastrointestinal: soft, non-tender, non-distended, Ileostomy in place Extremities: no cyanosis, no edema, no clubbing Neurologic: restless, not following commands, not communicative. Palliative Quality Palliative Quality: Screen for Code Status: Yes, Screen for Goals of Care: Yes, Screen for Pain: Yes, If Pain Regimen Started, Initiate Bowel Regimen: NA, Screen for Nausea/Vomitting: Yes Code Status: 08/20/18 13:56 DNR [Resuscitation Status: Active] [RES] Routine Comment: Resuscitation Status: [id number] 08/20/18 21:28 DNR [Resuscitation Status: Active] [RES] Routine Comment: Resuscitation Status: DNR-Comfort Care - Labs CBC & Chem 7: 08/22/18 05:42 08/22/18 05:42 Labs: Laboratory Results - last 24 hr 08/21/18 08/21/18 08/22/18 13:28 16:05 01:18 WBC RBC Hgb Hct MCV MCH MCHC RDW Plt Count MPV Sodium Potassium Chloride Carbon Dioxide BUN Creatinine Est GFR ( Amer) Est GFR (Non-Af Amer) BUN/Creatinine Ratio Glucose POC Glucose 73 69 L 82 Calculated Osmolality Calcium 08/22/18 08/22/18 08/22/18 05:42 05:42 05:53 WBC 6.9 RBC 3.46 L Hgb 11.1 L Hct 33.5 L MCV 96.8 MCH 32.1 MCHC 33.1 RDW 14.6 H Plt Count 105 L MPV 11.3 Sodium 139 Potassium 3.8 Chloride 99 Carbon Dioxide 27 BUN 12 Creatinine 2.94 H Est GFR ( Amer) 19 L Est GFR (Non-Af Amer) 16 L BUN/Creatinine Ratio 4 L Glucose 72 POC Glucose 75 Calculated Osmolality 286 Calcium 8.8 - ABG Interpretation ABG results: PT/INR, D-dimer PT 20.0 Seconds (9.4-12.1) H 08/18/18 05:15 Consult Discharge Plan - Plan Referrals: NONE,PCP [Primary Care Provider] -
[2018-08-22] MEDS ORDERED: CefTRIAXone 1,000 MG VIAL IVP ONE (12:52)
[2018-08-22] MEDS ORDERED: Acetaminophen 650 MG RECTAL SUPP RC ONE (12:52)
[2018-08-22] MEDS ORDERED: Ipratropium/Albuterol Neb 3 ML IH ONE ×3 (12:52)
[2018-08-22] MEDS ORDERED: Cyanocobalamin (B-12) 1,000 MCG/ML VIAL IM ONE (12:52)
[2018-08-22] MEDS ORDERED: *HR* Water for inj. (Sterile) 20 ML VIAL IV ONE (12:52)
--- NOTE | 2018-08-22 22:07 | Electrocardiograph Report ---
[address] [address] Test Date: 2018-08-17 Pat Name: Vannessa Parra Department: 109 Room: [facility] Gender: F Hopper Filler: [id number] : 1945 Requested By: [id number] Order Number: [id number] Reading MD: Ct Calle Measurements Intervals [place] Rate: 78 P: 92 SD: 166 QRS: 68 QRSD: 99 T: 75 QT: 398 QTc: 431 Interpretive Statements SINUS RHYTHM WITH PACs NONSPECIFIC T-WAVE ABNORMALITY Electronically Signed On 08-22-2018 22:06:[address] Calle
[2018-08-23] MEDS: Haloperidol Lactate 5 MG/ML VIAL IVP SCH ×4 (01:30→22:54)
[2018-08-23] MEDS: Ipratropium/Albuterol Neb 3 ML IH SCH ×5 (03:56→20:16)
--- NOTE | 2018-08-23 07:09 | Nephrology Progress Note ---
Addendum entered and electronically signed by Chet Buenrostro MD 08/23/18 21:34: I examined this patient and discussed the medical decision-making with TYLER Mchugh. I agree with the documented findings, disposition and treatment plan as described except to the extent set forth below. Original Note: Date of Encounter: 08/23/18 Time of Encounter: 07:07 - Assessment and Plan (1) ESRD (end stage renal disease) on dialysis Current Visit: No Status: Chronic Plan for HD on Friday Access malfunctioned 08/18/2018, Temp line placed 08/18/2018. Normal HD days are ,,Sat Avoid nephrotoxins if possible Family to make decision first of the week re: whether to place patient on hospic e. (2) Anemia in chronic kidney disease Current Visit: No Status: Chronic No new labs yet today Hgb 11.1 yesterday Goal hgb 10-12 Qualifiers: Chronic kidney disease stage: on chronic dialysis Qualified Code(s): N18.6 - End stage renal disease; D63.1 - Anemia in chronic kidney disease; Z99.2 - Dependence on renal dialysis (3) Severe malnutrition Current Visit: No Status: Chronic Continue supplements (4) Encephalopathy Current Visit: Yes Status: Acute Patient does not make eye contact with me nor does she answer any questions this morning Subjective Principal diagnosis: ESRD Interval history: Patient seen and examined; does not respond to any questions or make eye contact Objective - Vital Signs Vital signs: Vital Signs Temp Pulse Resp BP Pulse Ox 08/23/18 03:56 17 96 08/22/18 23:07 16 91 08/22/18 19:47 15 100 08/22/18 19:35 97.3 F L 87 15 131/74 98 08/22/18 15:26 16 92 08/22/18 11:34 16 93 08/22/18 07:22 18 97 Intake and Output 08/22/18 08/22/18 08/23/18 15:59 23:59 07:59 Intake Total Balance Intake: IV Fluids / Rocephin 1,000 MG In Water for inj. (sterile) 10 ML @ 600 mls/ hr IVP DAILY MARIANO Rx#:[id number] Oral 0 / 0 Other: Meal Pt. is NPO Percent of Meal Consumed 0% - General Appearance General appearance: Present: cachectic, chronically ill, frail EENT: Present: ATNC Neck: Present: supple Respiratory: Present: course breath sounds Cardiology: Present: no edema, normal S1, normal S2 Gastrointestinal: Present: no tenderness, no guarding Integumentary: Present: warm and dry Neurologic: Present: aphasic - Lab 08/22/18 05:42 08/22/18 05:42 Most recent lab results Calcium 8.8 mg/dL (8.6-10.3) 08/22/18 05:42 Phosphorus 15.4 mg/dL (2.7-4.5) H 08/18/18 05:15 Magnesium 1.5 mg/dL (1.6-2.6) L 08/18/18 05:15 Consult Discharge Plan - Plan Referrals: NONE,PCP [Primary Care Provider] -
[2018-08-23 08:55] LABS: Hematocrit 32.3 % (35.3-44.9); Hemoglobin 10.4 g/dL (11.5-15.4); Mean Corpuscular HGB Conc 32.2 g/dL (31.6-35.5); Mean Corpuscular Hemoglobin 31.9 pg (28.0-33.3); Mean Corpuscular Volume 99.1 fL (83.0-100.0); Mean Platelet Volume 11.9 fL (9.4-12.4); Red Blood Count 3.26 M/mcL (3.82-4.97); Red Cell Distribution Width 14.5 % (11.5-14.5)
[2018-08-23 08:56] LABS: Platelet Count 88 K/mcL (140-400)
[2018-08-23 09:09] LABS: Calcium 8.4 mg/dL (8.6-10.3); Potassium 3.7 mEq/L (3.5-5.1)
[2018-08-23] MEDS: Aspirin 81 MG TAB.CHEW PO SCH (09:11)
[2018-08-23] MEDS: Calcium Acetate 667 MG CAPSULE PO SCH ×3 (09:11→16:07)
[2018-08-23] MEDS: Renal Vitamin 1 CAP CAPSULE PO SCH (09:11)
[2018-08-23] MEDS: cefTRIAXone 1,000 MG in Water for inj. (sterile) 20 ML 10 ML IVP SCH (09:19)
[2018-08-23] MEDS: Fluticasone Propionate Nasal 50 MCG/SPRAY BOTTLE NS SCH (09:19)
[2018-08-23] MEDS: OXYCODONE Oral CONC 10 MG/0.5 ML ORAL.SYG SL PRN ×2 (09:25→21:14)
--- NOTE | 2018-08-23 11:13 | Internal Med Progress Note ---
Hospitalist Progress Note - Encounter Date of Encounter: 08/23/18 Time of Encounter: 11:12 - Subjective Interval History: 72 F with multiple medical co-morbodities admitted and being managed for encephalopathy, following failure of HD access She also complained of CP on arrival and had missed close to 6 days of HD She also is s/p ostomy, urostomy, COPD, Current smoker, Afib not on Anticoagulation due to chronic anemia and thrombocytopenia, hx of bleed into urostomy She was scheduled for discharge home 08/19 after HD but access failed again and a temp line was placed for HD access Seen and evaluated at bedside She is medicated but easily rousable and is oriented to place and person She denies any complains She is still NPO According to speech eval, patient did not co-operate with testing We will taper off Haldol , change to q8hr EKG done today shows normal QTC - Exam Vitals: Temp Pulse Resp BP Pulse Ox 97.6 F 86 18 104/76 92 08/23/18 07:48 08/23/18 07:48 08/23/18 07:48 08/23/18 07:48 08/23/18 07:48 Exam: General: Sleeping but rousable Head: atraumatic, normocephalic, Eye: Anicteric, reactive to light ENT: no neck stiffness, could not appreciated JVD. poor dentition , very dry oral mucosa Chest: thin, inspection WNL Respiratory: anterior auscultation only,chest is clear Cardiovascular: Regular rate and rhythm. s1 and s2 No clicks, rubs, gallops, or murmurs. Abdomen: scaphoid, has ostomy in the LLQ with good out put , urostomy in RLQ wit h clear urine musculoskeletal: Spontaneously moving all extremities. no edema, no calf tenderness, cachectic Skin: warm, dry, intact. Neuro: Rousable, oriented to place and person, moves all extremities equally - Assessment and Plan (1) End-stage renal disease (ESRD) Current Visit: Yes Status: Chronic Assessment and Plan: Renal is following and patient is scheduled for HD via temp per renal schedule Continue management per renal (2) Bicytopenia Current Visit: Yes Status: Chronic Assessment and Plan: has anemia most likely secondary to ESRD chronic continue to monitor CBC FOBT negative iron studies shows acceptable iron level nephrology on board (3) Acute encephalopathy Current Visit: Yes Status: Acute Assessment and Plan: Multifactorial: metabolic/uremic , infectious (patient has UTI), delirium CT head performed in the ED -unremarkable for acute findings neurochecks Q4H seizure, fall, aspiration precautions Repeat Head CT unremarkable Palliative team consulted , appreciate input Continue haldol, Decrease to q8h Patient may transition to hospice if not improving by Friday 08/24 (4) Interstitial lung disease Current Visit: Yes Status: Chronic Assessment and Plan: continue duonebs oxygen via Nasal cannula keeps sats >92% CTPA- 1. No evidence of acute pulmonary embolism. 2. Prominent main pulmonary artery suggestive of pulmonary arterial hypertension. 3. A pattern of prominent reticulonodular interstitial lung disease which was less pronounced in the previous evaluation. Nodularity is felt to be related to interstitial lung disease rather than neoplasm. No evidence of dominant masses. 4. Scattered mediastinal lymph nodes but no evidence of significant lymphadenopathy. (5) DVT prophylaxis Current Visit: Yes Status: Acute Assessment and Plan: scds (6) Atrial fibrillation Current Visit: Yes Status: Chronic Assessment and Plan: PAF not on AC as per Documentation secondary to anemia currently rate controlled continue home medications-Digoxin, (7) Hypothyroidism Current Visit: Yes Status: Chronic Assessment and Plan: TSH WNL continue home synthroid (8) Colostomy care Current Visit: Yes Status: Chronic Assessment and Plan: as per nursing staff (9) Protein calorie malnutrition Current Visit: Yes Status: Chronic Assessment and Plan: nurtrition consulted , manpreetal noted BMI 17.4 Continue supplement po (10) Frail elderly Current Visit: Yes Status: Chronic Assessment and Plan: 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 consult vitamin D fall, aspiration, seizure precautions DNR-Comfort care (11) Current every day smoker Current Visit: Yes Status: Chronic Assessment and Plan: tobacco cessation counselling done (12) Chest pain Current Visit: Yes Status: Resolved Assessment and Plan: most likely secondary to supply VS demand mismatch in setting of fluid overload cannot rule out underlying CAD ( does have multiple risk factors) Trop negative CP is pleuritic in nature, improved with HD ECHO unremarkable for new findings, EF is preserved, no sig valvular anomalies, wall motion was normal (13) UTI (urinary tract infection) Current Visit: Yes Status: Acute Assessment and Plan: Urine culture with klebsiella oxytoca Continue Ceftriaxone 1g daily-Day 5 (14) Goals of care, counseling/discussion Current Visit: Yes Status: Acute Assessment and Plan: Now DNR-Comfort care Per family, if patient not improving by next week, will transition to hospice - Time Spent with Patient Total time spent is greater than 50% in coordination of care (as documented) at patient's floor/unit and/or counseling patient: Plan of Care Discussed with: nurse Internal Medicine: Result - Labs CBC & Chem 7: 08/23/18 08:22 08/23/18 08:22 Labs: Short CBC 08/23/18 Range/Units 08:22 WBC 6.6 (4.3-11.1) K/mcL Hgb 10.4 L (11.5-15.4) g/dL Hct 32.3 L (35.3-44.9) % Plt Count 88 L (140-400) K/mcL BMP 08/23/18 08:22 Sodium 142 Potassium 3.7 Chloride 101 Carbon Dioxide 25 BUN 27 H Creatinine 5.23 H Glucose 51 L Calcium 8.4 L - ABG Interpretation ABG results: PT/INR, D-dimer PT 20.0 Seconds (9.4-12.1) H 08/18/18 05:15 Consult Discharge Plan - Plan Referrals: NONE,PCP [Primary Care Provider] - (6) Atrial fibrillation Qualifiers: Atrial fibrillation type: paroxysmal Qualified Code(s): I48.0 - Paroxysmal atrial fibrillation (7) Hypothyroidism Qualifiers: Hypothyroidism type: acquired Qualified Code(s): E03.9 - Hypothyroidism, unspecified (9) Protein calorie malnutrition Qualifiers: Protein-calorie malnutrition severity: moderate Qualified Code(s): E44.0 - Moderate protein-calorie malnutrition (12) Chest pain Qualifiers: Chest pain type: chest pain on breathing Qualified Code(s): R07.1 - Chest pain on breathing; R07.81 - Pleurodynia (13) UTI (urinary tract infection) Qualifiers: Urinary tract infection type: acute cystitis Hematuria presence: without hematuria Qualified Code(s): N30.00 - Acute cystitis without hematuria
[2018-08-23] MEDS: Famotidine 20 MG TABLET PO SCH (21:04)
[2018-08-23] MEDS: risperiDONE 0.25 MG TABLET PO SCH (21:04)
[2018-08-24] MEDS: Ipratropium/Albuterol Neb 3 ML IH SCH ×7 (00:55→23:32)
[2018-08-24 05:01] LABS: Mean Corpuscular Hemoglobin 31.5 pg (28.0-33.3); Mean Corpuscular Volume 100.3 fL (83.0-100.0); Mean Platelet Volume 12.4 fL (9.4-12.4)
[2018-08-24 05:02] LABS: Hematocrit 33.4 % (35.3-44.9); Hemoglobin 10.5 g/dL (11.5-15.4); Mean Corpuscular HGB Conc 31.4 g/dL (31.6-35.5); Red Blood Count 3.33 M/mcL (3.82-4.97); Red Cell Distribution Width 14.4 % (11.5-14.5)
[2018-08-24 05:05] LABS: Calcium 8.6 mg/dL (8.6-10.3); Potassium 3.7 mEq/L (3.5-5.1)
[2018-08-24] MEDS: Haloperidol Lactate 5 MG/ML VIAL IVP SCH ×3 (06:13→16:37)
[2018-08-24] MEDS ORDERED: Haloperidol Lactate 5 MG/ML VIAL IVP SCH (08:45)
[2018-08-24] MEDS: cefTRIAXone 1,000 MG in Water for inj. (sterile) 20 ML 10 ML IVP SCH (09:20)
[2018-08-24] MEDS: Calcium Acetate 667 MG CAPSULE PO SCH ×3 (09:21→16:36)
[2018-08-24] MEDS: Fluticasone Propionate Nasal 50 MCG/SPRAY BOTTLE NS SCH (09:22)
--- NOTE | 2018-08-24 09:41 | Palliative Progress Note ---
Date of Encounter: 08/24/18 Time of Encounter: 09:35 - Assessment and plan (1) Generalized pain Current Visit: Yes Status: Acute Assessment and plan: Continue low dose Oxycodone if needed for pain. Utilized x2 last 24 hours. (2) Delirium Current Visit: Yes Status: Acute Assessment and plan: Much improved. Taking po this am. Haloperidol has been decreased and could be stopped soon. (3) Anxiety Current Visit: Yes Status: Acute (4) Goals of care, counseling/discussion Current Visit: Yes Status: Acute Assessment and plan: Spoke with sonHany over telephone. Discussed current clinical status. He was here visiting last night and was pleased at her mental state - she chatted with grandchildren and was quite alert. Updated Hany that she did participate with speech today, and was able to take pureed consistency. Discussed his thoughts/feelings regarding dialysis at this point. Notified that if HD is to continue, nephrology would need to establish access. He verbalized understanding. We discussed limit of life if no dialysis, but also that if she continues dialysis, she is still very high risk of multiple complications/infection risk that could end her like as well. Hany verbalized understanding. States that he thinks she would want to continue dialysis, and desires measures to obtain access. Hany is attempting to come into town and spend a couple of days here to spend more time with her, and be present to speak with medical team. Will continue to follow. (5) COPD (chronic obstructive pulmonary disease) Current Visit: No Status: Chronic Qualifiers: Qualified Code(s): J44.9 - Chronic obstructive pulmonary disease, unspecified (6) Interstitial lung disease Current Visit: Yes Status: Chronic (7) Protein calorie malnutrition Current Visit: Yes Status: Chronic Qualifiers: Protein-calorie malnutrition severity: moderate Qualified Code(s): E44.0 - Moderate protein-calorie malnutrition (8) Debility, unspecified Current Visit: No Status: Chronic (9) ESRD (end stage renal disease) on dialysis Current Visit: No Status: Chronic - Time Spent With Patient Total time spent is greater than 50% in coordination of care (as documented) at patient's floor/unit and/or counseling patient: - Subjective Interval history: Patient calm, responding to questions. Participating with speech and eating applesauce this am. She has been cleared for pureed diet - they will reevaluate for liquids tomorrow. Appears delirium improved. Noted that Haloperidol had been decreased. Appears comfortable. - Constitutional Vitals: Abnormal lab results RBC 3.33 M/mcL (3.82-4.97) L 08/24/18 04:30 Hgb 10.5 g/dL (11.5-15.4) L 08/24/18 04:30 Hct 33.4 % (35.3-44.9) L 08/24/18 04:30 MCV 100.3 fL (83.0-100.0) H 08/24/18 04:30 MCHC 31.4 g/dL (31.6-35.5) L 08/24/18 04:30 Plt Count 86 K/mcL (140-400) L 08/24/18 04:30 Platelet Estimate Slight Decrease (Normal) L 08/17/18 07:48 Immature Plt Fraction 8.0 % (1.1-6.1) H 08/24/18 04:30 PT 20.0 Seconds (9.4-12.1) H 08/18/18 05:15 BUN 40 mg/dL (8-23) H 08/24/18 04:30 Creatinine 6.76 mg/dL (0.60-1.20) H 08/24/18 04:30 Est GFR ( Amer) 7 (> 60) L 08/24/18 04:30 Est GFR (Non-Af Amer) 6 (> 60) L 08/24/18 04:30 Glucose 59 mg/dL (70-105) L 08/24/18 04:30 Calculated Osmolality 306 (280-300) H 08/24/18 04:30 Phosphorus 15.4 mg/dL (2.7-4.5) H 08/18/18 05:15 Magnesium 1.5 mg/dL (1.6-2.6) L 08/18/18 05:15 % Saturation 81 % (15-50) H 08/18/18 05:15 Transferrin 91 mg/dL (203-362) L 08/18/18 05:15 AST 8 Units/L (13-39) L 08/17/18 07:48 ALT 4 Units/L (7-52) L 08/17/18 07:48 Troponin I 0.09 ng/mL (< 0.04) H* 08/17/18 20:59 Serum Total Protein 5.9 g/dL (6.4-8.9) L 08/17/18 07:48 Albumin 3.2 g/dL (3.5-5.7) L 08/17/18 07:48 HDL Cholesterol 28 mg/dL (40-59) L 08/18/18 05:15 25-OH Vitamin D Total 14 ng/mL (30-80) L 08/18/18 05:15 Urine Clarity Turbid (Clear) A 08/17/18 10:34 Urine Protein 100 mg/dL (Neg-Trace) H 08/17/18 10:34 Urine Blood Moderate (Negative) H 08/17/18 10:34 Urine Microscopic RBC 15-30 per hpf (0-3) H 08/17/18 10:34 Urine Microscopic WBC 50-100 per hpf (0-3) H 08/17/18 10:34 Ur Squamous Epith Cells Moderate per lpf (None-Few) H 08/17/18 10:34 Urine Bacteria Many per hpf (None-Few) H 08/17/18 10:34 Granular Casts Few per lpf (None Seen) H 08/17/18 10:34 General appearance: Present: no acute distress - Respiratory Respiratory exam: Present: decreased breath sounds, CTAB - Cardiovascular Cardiovascular exam: Present: +S1, +S2 - GI/Abdominal Additional comments: Ileostomy with liquid brown stool. - Additional comments: Urostomy intact - Extremities Exam Extremities exam: Present: normal capillary refill, normal inspection - Neurological Exam Neurological exam: Present: alert Additional comments: Follows a few simple commands. Participating with speech. - Skin Skin exam: Present: dry, pallor, warm Palliative Quality Palliative Quality: Screen for Code Status: Yes, Screen for Goals of Care: Yes, Screen for Pain: Yes, If Pain Regimen Started, Initiate Bowel Regimen: NA, Screen for Nausea/Vomitting: Yes Code Status: 08/20/18 13:56 DNR [Resuscitation Status: Active] [RES] Routine Comment: Resuscitation Status: [id number] 08/20/18 21:28 DNR [Resuscitation Status: Active] [RES] Routine Comment: Resuscitation Status: DNR-Comfort Care - Labs CBC & Chem 7: 08/24/18 04:30 08/24/18 04:30 Labs: Laboratory Results - last 24 hr 08/24/18 08/24/18 04:30 04:30 WBC 7.0 RBC 3.33 L Hgb 10.5 L Hct 33.4 L MCV 100.3 H MCH 31.5 MCHC 31.4 L RDW 14.4 Plt Count 86 L MPV 12.4 Immature Plt Fraction 8.0 H Sodium 144 Potassium 3.7 Chloride 101 Carbon Dioxide 24 BUN 40 H Creatinine 6.76 H Est GFR ( Amer) 7 L Est GFR (Non-Af Amer) 6 L BUN/Creatinine Ratio 6 Glucose 59 L Calculated Osmolality 306 H Calcium 8.6 - ABG Interpretation ABG results: PT/INR, D-dimer PT 20.0 Seconds (9.4-12.1) H 08/18/18 05:15 Consult Discharge Plan - Plan Referrals: NONE,PCP [Primary Care Provider] -
--- NOTE | 2018-08-24 10:08 | Nephrology Progress Note ---
Addendum entered and electronically signed by Davis Daniel, 08/24/18 14:44: I have personally performed a face to face evaluation on this patient. I have reviewed and agree with the care plan. History and Exam by me shows: ESRD with dialysis schedule previously TTS, and last HD on Friday. Given her recent rally, she has decided to remain on HD and not pursue hospice/palliative care after all. In this situation, then she will need her AVF malfunction to be addressed: NPO at AL with consult to IR for a fistulagram. Original Note: Date of Encounter: 08/24/18 Time of Encounter: 10:06 - Assessment and Plan (1) ESRD (end stage renal disease) on dialysis Current Visit: No Status: Chronic Plan for HD on Friday Access malfunctioned 08/18/2018, Temp line placed 08/18/2018. Normal HD days are ,TH,Sat Avoid nephrotoxins if possible [place], Palliative PRINCIPAL TECHNICAL SPECIALIST to speak with son later in the day as to whether to continue HD. Per [place], son would like to continue HD, pt made NPO at midnight for a Fistulagram in the am, IR aware. (2) Anemia in chronic kidney disease Current Visit: No Status: Chronic Goal Hgb is 10-11 Hgb is 10.5 today. Qualifiers: Chronic kidney disease stage: on chronic dialysis Qualified Code(s): N18.6 - End stage renal disease; D63.1 - Anemia in chronic kidney disease; Z99.2 - Dependence on renal dialysis (3) Severe malnutrition Current Visit: No Status: Chronic Continue supplements (4) Encephalopathy Current Visit: Yes Status: Acute Patient does look at me, but does not answer questions. Subjective Principal diagnosis: ESRD Interval history: Pt seen and examined, is alert to me asking questions, but does not answer them. Objective - Vital Signs Vital signs: Vital Signs Temp Pulse Resp BP Pulse Ox 08/24/18 09:30 97 08/24/18 08:47 97.2 F L 87 16 117/84 97 08/24/18 03:52 12 99 08/24/18 00:55 12 99 08/23/18 21:21 97.6 F 86 16 93/55 95 08/23/18 20:16 12 97 08/23/18 15:18 16 90 08/23/18 11:12 18 89 Intake and Output 08/23/18 08/24/18 08/24/18 23:59 07:59 15:59 Intake Total 0 / 0 Output Total 0 / 0 Balance 0 / 0 Intake: Oral 0 / 0 Output: Urine 0 / 0 Other: Stool Consistency liquid Stool Color Brown Blood Glucose* 72 - General Appearance General appearance: Present: chronically ill, fatigue, frail EENT: Present: ATNC, hearing intact, vision intact Neck: Present: supple Respiratory: Present: clear Cardiology: Present: no edema, normal S1, normal S2 Dialysis Vascular Access: Venous Catheter (Temp line, dRSG C/D/I) thrill: Yes bruit: Yes Gastrointestinal: Present: normoactive bowel sounds, no tenderness, no guarding Integumentary: Present: no rash, warm and dry Additional Comments: Alert, but not following commands. Psychiatric: Present: mood/affect appropriate, cooperative - Lab 08/24/18 04:30 08/24/18 04:30 Most recent lab results Calcium 8.6 mg/dL (8.6-10.3) 08/24/18 04:30 Phosphorus 15.4 mg/dL (2.7-4.5) H 08/18/18 05:15 Magnesium 1.5 mg/dL (1.6-2.6) L 08/18/18 05:15 Consult Discharge Plan - Plan Referrals: NONE,PCP [Primary Care Provider] -
--- NOTE | 2018-08-24 11:02 | Internal Med Progress Note ---
Hospitalist Progress Note - Encounter Date of Encounter: 08/24/18 Time of Encounter: 11:00 - Subjective Interval History: 72 F with multiple medical co-morbodities admitted and being managed for encephalopathy, following failure of HD access She also complained of CP on arrival and had missed close to 6 days of HD She is s/p ostomy, urostomy, COPD, Current smoker, Afib not on Anticoagulation due to chronic anemia and thrombocytopenia, hx of bleed into urostomy She was scheduled for discharge home 08/19 after HD but access failed again and a temp line was placed for HD access Seen and evaluated at bedside She is awake this a.m, alert and oriented X2 I personally fed her a whole serving of apple sauce and she tolerated it Speech eval is pending We will continue to taper off haldol Palliative, nephrology is following - Exam Vitals: Temp Pulse Resp BP Pulse Ox 97.2 F L 87 16 117/84 97 08/24/18 08:47 08/24/18 08:47 08/24/18 08:47 08/24/18 08:47 08/24/18 09:30 Exam: General: Awake, alert, not in distress, does not answer questions Head: atraumatic, normocephalic, Eye: Anicteric, reactive to light ENT: no neck stiffness, could not appreciated JVD. poor dentition , very dry oral mucosa Chest: thin, inspection WNL Respiratory: anterior auscultation only,chest is clear Cardiovascular: Regular rate and rhythm. s1 and s2 No clicks, rubs, gallops, or murmurs. Abdomen: scaphoid, has ostomy in the LLQ with good out put , urostomy in RLQ with clear urine musculoskeletal: Spontaneously moving all extremities. no edema, no calf tenderness, cachectic Skin: warm, dry, intact. Neuro: Awake, oriented to place and person, moves all extremities equally - Assessment and Plan (1) End-stage renal disease (ESRD) Current Visit: Yes Status: Chronic Assessment and Plan: Renal is following and patient is scheduled for HD via temp per renal schedule Continue management per renal Fistula still needs assessed and or repaired as patient is awake now Will discuss with nephrology (2) Bicytopenia Current Visit: Yes Status: Chronic Assessment and Plan: has anemia most likely secondary to ESRD chronic continue to monitor CBC FOBT negative iron studies shows acceptable iron level nephrology on board (3) Acute encephalopathy Current Visit: Yes Status: Acute Assessment and Plan: Patient is improved this a.m Multifactorial: metabolic/uremic , infectious (patient has UTI), delirium CT head performed in the ED -unremarkable for acute findings Continue neurochecks Q4H seizure, fall, aspiration precautions Repeat Head CT unremarkable Palliative team consulted , appreciate input Continue to taper off haldol, change to 0.5 (4) Interstitial lung disease Current Visit: Yes Status: Chronic Assessment and Plan: continue duonebs oxygen via Nasal cannula keeps sats >92% CTPA- 1. No evidence of acute pulmonary embolism. 2. Prominent main pulmonary artery suggestive of pulmonary arterial hypertension. 3. A pattern of prominent reticulonodular interstitial lung disease which was less pronounced in the previous evaluation. Nodularity is felt to be related to interstitial lung disease rather than neoplasm. No evidence of dominant masses. 4. Scattered mediastinal lymph nodes but no evidence of significant lymphadenopathy. (5) DVT prophylaxis Current Visit: Yes Status: Acute Assessment and Plan: scds (6) Atrial fibrillation Current Visit: Yes Status: Chronic Assessment and Plan: PAF not on AC as per Documentation secondary to anemia currently rate controlled continue home medications-Digoxin, (7) Hypothyroidism Current Visit: Yes Status: Chronic Assessment and Plan: TSH WNL continue home synthroid (8) Colostomy care Current Visit: Yes Status: Chronic Assessment and Plan: as per nursing staff (9) Protein calorie malnutrition Current Visit: Yes Status: Chronic Assessment and Plan: nurtrition consulted , eval noted BMI 17.4 Continue supplement po (10) Frail elderly Current Visit: Yes Status: Chronic Assessment and Plan: 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 vitamin D fall, aspiration, seizure precautions DNR-Comfort care (11) Current every day smoker Current Visit: Yes Status: Chronic Assessment and Plan: tobacco cessation counselling done (12) Chest pain Current Visit: Yes Status: Resolved Assessment and Plan: most likely secondary to supply VS demand mismatch in setting of fluid overload cannot rule out underlying CAD ( does have multiple risk factors) Trop negative CP is pleuritic in nature, improved with HD ECHO unremarkable for new findings, EF is preserved, no sig valvular anomalies, wall motion was normal (13) UTI (urinary tract infection) Current Visit: Yes Status: Acute Assessment and Plan: Urine culture with klebsiella oxytoca Continue Ceftriaxone 1g daily-Day 04/12 (14) Goals of care, counseling/discussion Current Visit: Yes Status: Acute Assessment and Plan: Now DNR-Comfort care Palliative input appreciated - Time Spent with Patient Total time spent is greater than 50% in coordination of care (as documented) at patient's floor/unit and/or counseling patient: Plan of Care Discussed with: patient Internal Medicine: Result - Labs CBC & Chem 7: 08/24/18 04:30 08/24/18 04:30 Labs: Short CBC 08/24/18 Range/Units 04:30 WBC 7.0 (4.3-11.1) K/mcL Hgb 10.5 L (11.5-15.4) g/dL Hct 33.4 L (35.3-44.9) % Plt Count 86 L (140-400) K/mcL BMP 08/24/18 04:30 Sodium 144 Potassium 3.7 Chloride 101 Carbon Dioxide 24 BUN 40 H Creatinine 6.76 H Glucose 59 L Calcium 8.6 - ABG Interpretation ABG results: PT/INR, D-dimer PT 20.0 Seconds (9.4-12.1) H 08/18/18 05:15 Consult Discharge Plan - Plan Referrals: NONE,PCP [Primary Care Provider] - (6) Atrial fibrillation Qualifiers: Atrial fibrillation type: paroxysmal Qualified Code(s): I48.0 - Paroxysmal atrial fibrillation (7) Hypothyroidism Qualifiers: Hypothyroidism type: acquired Qualified Code(s): E03.9 - Hypothyroidism, unspecified (9) Protein calorie malnutrition Qualifiers: Protein-calorie malnutrition severity: moderate Qualified Code(s): E44.0 - Moderate protein-calorie malnutrition (12) Chest pain Qualifiers: Chest pain type: chest pain on breathing Qualified Code(s): R07.1 - Chest pain on breathing; R07.81 - Pleurodynia (13) UTI (urinary tract infection) Qualifiers: Urinary tract infection type: acute cystitis Hematuria presence: without hematuria Qualified Code(s): N30.00 - Acute cystitis without hematuria
[2018-08-24] MEDS: *HR* Digoxin 0.125 MG TABLET PO SCH (11:12)
[2018-08-24] MEDS: Renal Vitamin 1 CAP CAPSULE PO SCH (11:12)
[2018-08-24] MEDS: Aspirin 81 MG TAB.CHEW PO SCH (11:13)
[2018-08-24] MEDS: risperiDONE 0.25 MG TABLET PO SCH (21:30)
[2018-08-24] MEDS: Famotidine 20 MG TABLET PO SCH (21:30)
[2018-08-25] MEDS: Haloperidol Lactate 5 MG/ML VIAL IVP SCH ×2 (01:41→10:45)
[2018-08-25] MEDS: Ipratropium/Albuterol Neb 3 ML IH SCH ×3 (04:23→11:40)
[2018-08-25 04:51] LABS: Hematocrit 34.2 % (35.3-44.9); Hemoglobin 10.7 g/dL (11.5-15.4); Immature Platelets 8.2 % (1.1-6.1); Mean Corpuscular HGB Conc 31.3 g/dL (31.6-35.5); Mean Corpuscular Hemoglobin 31.4 pg (28.0-33.3); Mean Corpuscular Volume 100.3 fL (83.0-100.0); Mean Platelet Volume 12.5 fL (9.4-12.4); Red Blood Count 3.41 M/mcL (3.82-4.97); Red Cell Distribution Width 14.3 % (11.5-14.5)
[2018-08-25 05:07] LABS: Calcium 8.5 mg/dL (8.6-10.3)
[2018-08-25] MEDS ORDERED: 0.9 % Sodium Chloride 250 ML IVC PRN (06:36)
--- NOTE | 2018-08-25 06:58 | Nephrology Progress Note ---
Addendum entered and electronically signed by Davis Daniel DO 08/31/18 12:33: I have personally performed a face to face evaluation on this patient. I have reviewed and agree with the care plan. History and Exam by me shows: Based upon her wishes, will reattempt dialysis today. If she has problems with BPs then may need to abort dialysis and reconsider her goals of care. Original Note: Date of Encounter: 08/25/18 Time of Encounter: 06:56 - Assessment and Plan (1) ESRD (end stage renal disease) on dialysis Current Visit: No Status: Chronic Plan for HD today Normal HD days are ,TH,Sat Access malfunctioned 08/18/2018, Temp line placed 08/18/2018; scheduled to have fistulogram today Avoid nephrotoxins if possible Renal diet when diet advanced (2) Severe malnutrition Current Visit: No Status: Chronic Continue supplements (3) Encephalopathy Current Visit: Yes Status: Acute Unable to wake patient this morning, sleeping soundly Subjective Principal diagnosis: ESRD Interval history: Patient seen and examined; slept through entire exam, did not wake up when asked questions Objective - Vital Signs Vital signs: Vital Signs Temp Pulse Resp BP Pulse Ox 08/25/18 05:36 97.8 F 80 15 105/67 91 08/25/18 04:23 16 97 08/25/18 01:00 97.5 F L 93 18 101/69 08/24/18 23:34 18 94 08/24/18 21:31 98 F 97 15 108/54 94 08/24/18 20:27 18 96 08/24/18 16:34 98.5 F 92 20 101/68 100 08/24/18 16:11 16 97 08/24/18 12:57 97.8 F 67 16 107/69 95 08/24/18 11:09 16 98 08/24/18 09:30 97 08/24/18 08:47 97.2 F L 87 16 117/84 97 08/24/18 07:52 96 Intake and Output 08/24/18 08/24/18 08/25/18 15:59 23:59 07:59 Intake Total 0 / 0 Output Total 0 / 0 200 / 200 Balance 0 / 0 -200 / -200 Intake: Oral 0 / 0 Output: Urine 0 / 0 Stool 200 / 200 Urostomy 0 / 0 Other: Meal snack; pudding, applesauce Percent of Meal Consumed 100% Weight 43.1 kg Blood Glucose* 112 80 116 Patient Weight 08/25/18 23:59 Weight 43.1 kg - General Appearance General appearance: Present: cachectic, chronically ill, fatigue, frail EENT: Present: ATNC Neck: Present: supple Respiratory: Present: course breath sounds Cardiology: Present: no edema, normal S1, normal S2 Dialysis Vascular Access: Venous Catheter Integumentary: Present: warm and dry - Lab 08/25/18 04:30 08/25/18 04:30 Most recent lab results Calcium 8.5 mg/dL (8.6-10.3) L 08/25/18 04:30 Phosphorus 15.4 mg/dL (2.7-4.5) H 08/18/18 05:15 Magnesium 1.5 mg/dL (1.6-2.6) L 08/18/18 05:15 Consult Discharge Plan - Plan Referrals: NONE,PCP [Primary Care Provider] -
[2018-08-25] MEDS ORDERED: *HR* Heparin 5,000 UNIT/ML VIAL ONE (07:20)
[2018-08-25] MEDS ORDERED: Albumin 25% 25gram/100mL 25 GM/100 ML IV.SOLN IVPB ONE (08:23)
[2018-08-25] MEDS ORDERED: Albumin 25% 12.5gm/50mL 25.0 GM/100 ML IV.SOLN ONE (08:25)
--- NOTE | 2018-08-25 09:28 | Palliative Progress Note ---
Date of Encounter: 08/25/18 Time of Encounter: 09:25 - Assessment and plan (1) Generalized pain Current Visit: Yes Status: Acute Assessment and plan: Continue SL Oxycodone. Has not utilized last 24 hours. (2) Delirium Current Visit: Yes Status: Acute Assessment and plan: Improved. She remains on 0.5 Haloperidol every 8 hours scheduled. Will continue at this point until further discussion with family. May continue for her comfort and help with any terminal agitation she may experience. (3) Anxiety Current Visit: Yes Status: Acute (4) Goals of care, counseling/discussion Current Visit: Yes Status: Acute Assessment and plan: Patient was scheduled for fistulogram today, however, in dialysis this am, she had marked hypotension that was not responsive to fluids and albumin. Patient also much less responsive today. Called son Hany, he did see her briefly yesterday pm, but his daughter was in car accident, and he had to travel back to [place]. Updated him on todays events and her clinical status. He understands that at this point, she would be at high risk for any procedure, and is likely not to be able to tolerate further dialysis. He would like to transition to hospice care. He did state and give permission for patient's brother Francis, or niece Christina to assist with these arrangements. I spoke with Francis and Christina via phone and they will be in later this am. Will discuss transition to hospice care. Updated nephrology, and will speak with hospitalist as well. (5) COPD (chronic obstructive pulmonary disease) Current Visit: No Status: Chronic Qualifiers: Qualified Code(s): J44.9 - Chronic obstructive pulmonary disease, unspecified (6) Interstitial lung disease Current Visit: Yes Status: Chronic (7) Protein calorie malnutrition Current Visit: Yes Status: Chronic Qualifiers: Protein-calorie malnutrition severity: moderate Qualified Code(s): E44.0 - Moderate protein-calorie malnutrition (8) Debility, unspecified Current Visit: No Status: Chronic (9) ESRD (end stage renal disease) on dialysis Current Visit: No Status: Chronic - Time Spent With Patient Total time spent is greater than 50% in coordination of care (as documented) at patient's floor/unit and/or counseling patient: - Subjective Interval history: Patient calm, responding to questions. Participating with speech and eating applesauce this am. She has been cleared for pureed diet - they will reevaluate for liquids tomorrow. Appears delirium improved. Noted that Haloperidol had been decreased. Appears comfortable. - Constitutional Vitals: Abnormal lab results RBC 3.41 M/mcL (3.82-4.97) L 08/25/18 04:30 Hgb 10.7 g/dL (11.5-15.4) L 08/25/18 04:30 Hct 34.2 % (35.3-44.9) L 08/25/18 04:30 MCV 100.3 fL (83.0-100.0) H 08/25/18 04:30 MCHC 31.3 g/dL (31.6-35.5) L 08/25/18 04:30 Plt Count 79 K/mcL (140-400) L 08/25/18 04:30 MPV 12.5 fL (9.4-12.4) H 08/25/18 04:30 Platelet Estimate Slight Decrease (Normal) L 08/17/18 07:48 Immature Plt Fraction 8.2 % (1.1-6.1) H 08/25/18 04:30 PT 20.0 Seconds (9.4-12.1) H 08/18/18 05:15 Sodium 146 mEq/L (136-145) H 08/25/18 04:30 BUN 51 mg/dL (8-23) H 08/25/18 04:30 Creatinine 7.90 mg/dL (0.60-1.20) H 08/25/18 04:30 Est GFR ( Amer) 6 (> 60) L 08/25/18 04:30 Est GFR (Non-Af Amer) 5 (> 60) L 08/25/18 04:30 Glucose 127 mg/dL (70-105) H 08/25/18 04:30 POC Glucose 112 mg/dL (70-99) H 08/24/18 13:05 Calculated Osmolality 317 (280-300) H 08/25/18 04:30 Calcium 8.5 mg/dL (8.6-10.3) L 08/25/18 04:30 Phosphorus 15.4 mg/dL (2.7-4.5) H 08/18/18 05:15 Magnesium 1.5 mg/dL (1.6-2.6) L 08/18/18 05:15 % Saturation 81 % (15-50) H 08/18/18 05:15 Transferrin 91 mg/dL (203-362) L 08/18/18 05:15 AST 8 Units/L (13-39) L 08/17/18 07:48 ALT 4 Units/L (7-52) L 08/17/18 07:48 Troponin I 0.09 ng/mL (< 0.04) H* 08/17/18 20:59 Serum Total Protein 5.9 g/dL (6.4-8.9) L 08/17/18 07:48 Albumin 3.2 g/dL (3.5-5.7) L 08/17/18 07:48 HDL Cholesterol 28 mg/dL (40-59) L 08/18/18 05:15 25-OH Vitamin D Total 14 ng/mL (30-80) L 08/18/18 05:15 Urine Clarity Turbid (Clear) A 08/17/18 10:34 Urine Protein 100 mg/dL (Neg-Trace) H 08/17/18 10:34 Urine Blood Moderate (Negative) H 08/17/18 10:34 Urine Microscopic RBC 15-30 per hpf (0-3) H 08/17/18 10:34 Urine Microscopic WBC 50-100 per hpf (0-3) H 08/17/18 10:34 Ur Squamous Epith Cells Moderate per lpf (None-Few) H 08/17/18 10:34 Urine Bacteria Many per hpf (None-Few) H 08/17/18 10:34 Granular Casts Few per lpf (None Seen) H 08/17/18 10:34 Palliative Quality Palliative Quality: Screen for Code Status: Yes, Screen for Goals of Care: Yes, Screen for Pain: Yes, If Pain Regimen Started, Initiate Bowel Regimen: NA, Screen for Nausea/Vomitting: Yes Code Status: 08/20/18 13:56 DNR [Resuscitation Status: Active] [RES] Routine Comment: Resuscitation Status: [id number] 08/20/18 21:28 DNR [Resuscitation Status: Active] [RES] Routine Comment: Resuscitation Status: DNR-Comfort Care - Labs CBC & Chem 7: 08/25/18 04:30 08/25/18 04:30 Labs: Laboratory Results - last 24 hr 08/24/18 08/24/18 08/25/18 08:55 13:05 04:30 WBC 7.9 RBC 3.41 L Hgb 10.7 L Hct 34.2 L MCV 100.3 H MCH 31.4 MCHC 31.3 L RDW 14.3 Plt Count 79 L MPV 12.5 H Immature Plt Fraction 8.2 H Sodium Potassium Chloride Carbon Dioxide BUN Creatinine Est GFR ( Amer) Est GFR (Non-Af Amer) BUN/Creatinine Ratio Glucose POC Glucose 72 112 H Calculated Osmolality Calcium 08/25/18 04:30 WBC RBC Hgb Hct MCV MCH MCHC RDW Plt Count MPV Immature Plt Fraction Sodium 146 H Potassium 4.0 Chloride 103 Carbon Dioxide 28 BUN 51 H Creatinine 7.90 H Est GFR ( Amer) 6 L Est GFR (Non-Af Amer) 5 L BUN/Creatinine Ratio 6 Glucose 127 H POC Glucose Calculated Osmolality 317 H Calcium 8.5 L - ABG Interpretation ABG results: PT/INR, D-dimer PT 20.0 Seconds (9.4-12.1) H 08/18/18 05:15 Consult Discharge Plan - Plan Referrals: NONE,PCP [Primary Care Provider] -
[2018-08-25] MEDS: cefTRIAXone 1,000 MG in Water for inj. (sterile) 20 ML 10 ML IVP SCH (10:45)
[2018-08-25] MEDS: Calcium Acetate 667 MG CAPSULE PO SCH ×2 (10:46→12:01)
[2018-08-25] MEDS: Aspirin 81 MG TAB.CHEW PO SCH (10:46)
[2018-08-25] MEDS: Renal Vitamin 1 CAP CAPSULE PO SCH (10:46)
[2018-08-25] MEDS: Fluticasone Propionate Nasal 50 MCG/SPRAY BOTTLE NS SCH (10:47)
--- NOTE | 2018-08-25 12:45 | Discharge Summary ---
Orders not resulted at time of discharge: Pending orders 08/20/18 14:29 Culture,Blood [BC] Routine 08/26/18 04:00 Chem 7 [Basic Metabolic Panel] AM 0400 Complete Blood Count w/o Diff [HEME] AM 04008/27/18 04:00 Chem 7 [Basic Metabolic Panel] AM 0400 Complete Blood Count w/o Diff [HEME] AM 0400 08/28/18 04:00 Chem 7 [Basic Metabolic Panel] AM 0400 Complete Blood Count w/o Diff [HEME] AM 0400 Date of Encounter: 08/25/18 Time of Encounter: 11:00 - Discharge Diagnosis (1) UTI (urinary tract infection) Priority: Primary Status: Acute Qualifiers: Urinary tract infection type: acute cystitis Hematuria presence: without hematuria Qualified Code(s): N30.00 - Acute cystitis without hematuria (2) End-stage renal disease (ESRD) Priority: Secondary Status: Chronic (3) Bicytopenia Priority: Secondary Status: Chronic (4) Acute encephalopathy Priority: Secondary Status: Acute (5) Interstitial lung disease Priority: Secondary Status: Chronic (6) Atrial fibrillation Priority: Secondary Status: Chronic Qualifiers: Atrial fibrillation type: paroxysmal Qualified Code(s): I48.0 - Paroxysmal atrial fibrillation (7) Hypothyroidism Priority: Secondary Status: Chronic Qualifiers: Hypothyroidism type: acquired Qualified Code(s): E03.9 - Hypothyroidism, unspecified (8) Colostomy care Priority: Secondary Status: Chronic (9) Protein calorie malnutrition Priority: Secondary Status: Chronic Qualifiers: Protein-calorie malnutrition severity: moderate Qualified Code(s): E44.0 - Moderate protein-calorie malnutrition (10) Frail elderly Priority: Secondary Status: Chronic (11) Current every day smoker Priority: Secondary Status: Chronic (12) Chest pain Priority: Secondary Status: Resolved Qualifiers: Chest pain type: chest pain on breathing Qualified Code(s): R07.1 - Chest pain on breathing; R07.81 - Pleurodynia Hospital course: Patient is a 72-year-old female with past medical history significant for COPD, smoker, colostomy, AFib not on AC, ESRD on HD presented to the ER with complaint of Chest pain. As per patient chest pain started earlier on admission day and has sharp quality, constant, has improved since she has been in the ER, aggravated by coughing and alleviated by oxygen and laying down. She does report having similar chest pains on and off for the past few years. She does report that she had been having visual hallucinations, seeing her children playing in snow. Denies any psychiatric history. In the ER CT head performed which showed No acute abnormalities. During patients hospital stay she was treated for end-stage renal disease however her metabolic encephalopathy never improved. Palliative care was consulted and goals of care was discussed with family who decided to make patient hospice. Patient will be transferred to inpatient hospice for further management. - Time Spent with Patient Total time spent providing and/or coordinating discharge services: - Discharge Medications Home Medications: Ranitidine HCl [Zantac] 150 mg PO HS 09/19/15 [History] Renal Vitamin [Renal Caps Softgel] 1 mg PO DAILY 06/30/17 [History] Calcium Acetate [Phos-LO] 667 mg PO TIDWM 10/17/17 [History] Ferrous Sulfate 325 mg PO DAILY 11/14/17 [History] Gabapentin [Neurontin] 100 mg PO TID #30 capsule 12/15/17 [Rx] Nitroglycerin 0.4 mg SL Q5MIN PRN tab.subl 12/15/17 [Rx] traZODone [TraZODone] 25 mg PO HS 02/08/18 [History] Calcitriol [Rocaltrol] 0.25 mcg PO DAILY 03/24/18 [History] Levothyroxine Sodium [Synthroid] 300 mcg PO DAILY 03/24/18 [History] Fluticasone Propionate Nasal [Flonase] 50 mcg NS DAILY bottle 03/25/18 [Rx] Cyanocobalamin (B-12) [Vitamin B12] 1,000 mcg IM QMONTH 08/17/18 [History] Digoxin [Lanoxin] 0.125 mg PO MOWEFR 08/17/18 [History] Midodrine HCl 10 mg PO DAILY 08/17/18 [History] Allergies/Adverse Reactions: Allergy/AdvReac Type Severity Reaction Status Date / Time codeine AdvReac Severe Vomiting Verified 07/13/18 12:40 naproxen [From Naprosyn] AdvReac Severe Vomiting Verified 07/13/18 12:40 Date of admission: 08/22/18 15:43 Primary care physician: PCP NONE Consults: 08/17/18 12:06 Consult to Nephrology [CONS] Stat Consulting Provider: [facility]/JAYESH/COREY Reason for Consult: missed dialysis, needed CTA Call Completed: Yes 08/17/18 12:33 Consult to Case Management [CONS] Routine Comment: Consult to Nutrition [CONS] Routine Comment: Consulting Provider: NUTRITION Reason for Dietary Consult: PO Supplementation Consult to Physical Therapy [CONS] Routine Comment: Evaluate, develop and implement POC Reason for Consult: dispostion Does patient have active BEDREST order?: No Is patient medically & hemodynamically stable?: Yes Patient assessed for mobility or mobilized this visit?: Yes OT [Consult to Occupational Therapy] [CONS] Routine Comment: Evaluate, develop and implement POC Reason for Consult: disposition Does patient have active BEDREST order?: No Is patient medically & hemodynamically stable?: Yes Patient assessed for mobility or mobilized this visit?: Yes 08/18/18 08:30 Consult to Dialysis [CONS] ONCE 08/18/18 09:54 Consult to Interventional Radiology [CONS] Routine Consulting Provider: Radiology Interventional Cols Reason for Consult: Fistulagram please. Thanks! Time Notified: 09:55 Call Completed: Yes 08/18/18 13:49 Consult to Interventional Radiology [CONS] Routine Consulting Provider: Radiology Interventional Cols Reason for Consult: temp line please. Time Notified: 13:49 Call Completed: Yes 08/19/18 09:46 dietary consult [Consult to Nutrition] [CONS] Routine Comment: consult for IDPN Consulting Provider: NUTRITION Reason for Dietary Consult: Other Other:: IDPN 08/19/18 10:45 Consult to Dialysis [CONS] ONCE 08/21/18 03:55 Consult to Speech Therapy [CONS] Routine Comment: Evaluate, develop and implement POC Reason for Consult: Pt garbling Call Completed: No 08/21/18 08:00 Consult to Dialysis [CONS] ONCE 08/24/18 13:29 Consult to Interventional Radiology [CONS] Routine Consulting Provider: Radiology Interventional Cols Reason for Consult: Fistulagram please. Thanks Time Notified: 13:29 Call Completed: Yes 08/25/18 06:45 Consult to Dialysis [CONS] ONCE - Constitutional Vitals: Temp Pulse Resp BP Pulse Ox 97.5 F L 87 16 112/74 99 08/25/18 12:04 08/25/18 12:04 08/25/18 12:04 08/25/18 12:04 08/25/18 12:04 General appearance: Present: cachectic, no acute distress Exam: As above - Patient Status Disposition: Hospice - Medical Facility Condition: Fair - Discharge Instructions Follow Up With: NONE,PCP [Primary Care Provider] -
[2018-08-25 16:15] VITALS: BP 104/67
--- NOTE | 2018-08-25 17:14 | Electrocardiograph Report ---
[address] [address] Test Date: 2018-08-22 Pat Name: Vannessa Parra Department: 109 Room: 2A Gender: F Rn Flight: : 1945 Requested By: Pasha Alexander Order Number: [id number] Reading MD: Chuy Germain Measurements Intervals [place] Rate: 97 P: 47 FL: 130 QRS: 67 QRSD: 86 T: -88 QT: 342 QTc: 397 Interpretive Statements SINUS RHYTHM ST DEVIATION AND MODERATE T-WAVE ABNORMALITY, CONSIDER LATERAL ISCHEMIA ST DEVIATION AND MODERATE T-WAVE ABNORMALITY, CONSIDER INFERIOR ISCHEMIA Electronically Signed On 08-25-2018 17:12:02 EDT by Chuy Germain
== END 2018-08-25 12:53 | disposition hospice, inpatient (51) | DRG 466 ==
LOC: 2ANU 06:52 → EMEROOARM 06:52 → SUATTDRO 12:25 → 2ANU 13:33 → SUATTDRO 08-22 15:43 → 2ANU 08-23 12:02
PROVIDERS: ADMIT Internal Medicine; ATTEND Hospitalist

== ENCOUNTER 2018-08-25 11:31 | Inpatient (IN) ==
[2018-08-25] MEDS ORDERED: Atropine Sulfate 1% 40 DROP/2 ML BOTTLE SL PRN (11:36)
[2018-08-25] MEDS ORDERED: *HR* LORazepam 2 MG/ML VIAL IVP PRN (11:36)
[2018-08-25] MEDS ORDERED: Ipratropium/Albuterol Neb 3 ML IH PRN (11:40)
[2018-08-25] MEDS ORDERED: Acetaminophen 650 MG RECTAL SUPP RC PRN (11:40)
--- NOTE | 2018-08-25 11:54 | Pallative History & Physical ---
Date of Encounter: 08/25/18 Time of Encounter: 13:00 Assessment and Plan (1) Anxiety Status: Acute Lorazepam will be added for PRN use. MOnitor and titrate as needed. (2) Generalized pain Status: Acute Begin Oxycodone SL and titrate as needed. (3) Agitation Status: Acute Continue low dose scheduled Haloperidol 0.5mg every 8 hours and titrate as needed. (4) Altered mental status Status: Acute Qualifiers: Altered mental status type: unspecified Qualified Code(s): R41.82 - Altered mental status, unspecified (5) End-stage renal disease (ESRD) Status: Chronic (6) Interstitial lung disease Status: Chronic (7) Goals of care, counseling/discussion Status: Acute Admit to General inpatient hospice today. No further dialysis. Will adjust medications for comfort. Family at bedside - provided emotional support. Will continue to follow closely and monitor symptoms. She may not survive transition outside of facility. If she does stabilize, family does not feel they can longer provide care for her at home, and she would require ECF placement. Internal Medicine - H&P: HPI Admitted From: Intrahospital Transfer History of present illness: Ms. Parra is a 72 year old female with many medical conditions including ESRD on dialysis, CHF, Atrial fibrillation, COPD, short gut syndrome s/p ileostomy, has urostomy, who originally presented to the ED with chest pain. Her symptoms quickly resolved during the ED visit. She has had previous hospitalization for malnutrition/dehydration r/t high ileostomy output, and at one time was on cyclic TPN, however, after this was set up and initiated at home, she refused to continue it and has been just doing oral feedings. She has always refused ECF placement and demanded to go home. Her brother and niece live with her and help provide care. She had missed several dialysis session r/t difficulty with access, and new line was placed here. She developed altered mental status last week, and was agitated, yelling, stopped taking any po feedings. She was treated for acute delirium with scheduled IV Haloperidol, and this did improve after a couple days of treatment. She was alert and oriented x2 yesterday, and was able to tolerate po intake. Son was contacted regarding further dialysis, and since she had improved from delirium, he initially desired to pursue fistulogram and continue dialysis, however, she could not tolerate dialysis this am r/t hypotension, and her mental status has again declined. She will open eyes, but little verbal response. After speaking with son, Hany, brother, Francis, and niece Christina, they would like to forego any further aggressive treatments and discontinue further dialysis. Will discharge from hospital today, and she will be admitted to inpatient hospice for symptom management. Her family does not think they can care for her at home, so if she stabilizes for discharge, will likely need ECF placement. Past Med Surg Social Fam HX - Past Medical History Medical history: asthma, atrial fibrillation, COPD, GERD, hypertension, renal disease, thyroid disease, other Additional medical history: on dialysis Psychiatric history: anxiety, depression - Past Surgical History Surgical History: appendectomy, cholecystectomy, colostomy, herniorrhaphy, hysterectomy, other Additional surgical history: urostomy, carpal tunnel, colostomy - Social History Smoking Status: Current every day smoker Smokeless Tobacco Status: No Alcohol use: none Drug use: none - Family History Mother Adopted: No Living Status: Hx Family Cardiac Disorders: Yes ([place]/ Stroke) Hx Family Respiratory Disorders: No Hx Family Cancer: No Hx Family GI Disorders: No Hx Family Endocrine Disorder: No Hx Family Neuromuscular Disorders: No Hx Family Neurologic Disorders: No Hx Family HEENT Disorders: No Hx Family Autoimmune Disorders: No Father Adopted: No Living Status: Hx Family Cardiac Disorders: Yes ([place]) Hx Family Respiratory Disorders: No Hx Family Cancer: No Hx Family GI Disorders: No Hx Family Endocrine Disorder: No Hx Family Neuromuscular Disorders: No Hx Family Neurologic Disorders: No Hx Family HEENT Disorders: No Hx Family Autoimmune Disorders: No Brother Living Status: Still Living Hx Family Cardiac Disorders: Yes Hx Family Respiratory Disorders: No Hx Family Endocrine Disorder: Yes Internal Medicine - H&P: Meds Ranitidine HCl [Zantac] 150 mg PO HS 09/19/15 [History] Renal Vitamin [Renal Caps Softgel] 1 mg PO DAILY 06/30/17 [History] Calcium Acetate [Phos-LO] 667 mg PO TIDWM 10/17/17 [History] Ferrous Sulfate 325 mg PO DAILY 11/14/17 [History] Gabapentin [Neurontin] 100 mg PO TID #30 capsule 12/15/17 [Rx] Nitroglycerin 0.4 mg SL Q5MIN PRN tab.subl 12/15/17 [Rx] traZODone [TraZODone] 25 mg PO HS 02/08/18 [History] Calcitriol [Rocaltrol] 0.25 mcg PO DAILY 03/24/18 [History] Levothyroxine Sodium [Synthroid] 300 mcg PO DAILY 03/24/18 [History] Fluticasone Propionate Nasal [Flonase] 50 mcg NS DAILY bottle 03/25/18 [Rx] Cyanocobalamin (B-12) [Vitamin B12] 1,000 mcg IM QMONTH 08/17/18 [History] Digoxin [Lanoxin] 0.125 mg PO MOWEFR 08/17/18 [History] Midodrine HCl 10 mg PO DAILY 08/17/18 [History] Allergy/AdvReac Type Severity Reaction Status Date / Time codeine AdvReac Severe Vomiting Verified 07/13/18 12:40 naproxen [From Naprosyn] AdvReac Severe Vomiting Verified 07/13/18 12:40 ROS unobtainable: due to mental status Palliative Care-Exam - Constitutional General appearance: Present: no acute distress, thin - Respiratory Respiratory exam: Present: decreased breath sounds Additional comments: Occasional rhonchi anteriorally - Cardiovascular Cardiovascular exam: Present: +S1, +S2, tachycardia - GI/Abdominal Exam GI/Abdominal exam: Present: soft additional comments: Ileostomy with brown liquid stool - Additional comments: Urostomy with scant amount urine - Neurological Exam Additional comments: Patient lethargic - does open eyes with stimulation. Does not follow commands. Unable to take po today. Palliative Quality Palliative Quality: Screen for Code Status: Yes, Screen for Goals of Care: Yes, Screen for Pain: Yes, If Pain Regimen Started, Initiate Bowel Regimen: NA (Ileostomy), Screen for Nausea/Vomitting: Yes Code Status: 08/25/18 11:36 Resuscitation Status: Active [RES] Routine Comment: Resuscitation Status: DNR-Comfort Care
[2018-08-25] MEDS: Haloperidol Lactate 5 MG/ML VIAL IVP SCH ×2 (14:40→22:06)
[2018-08-26] MEDS: Haloperidol Lactate 5 MG/ML VIAL IVP SCH ×3 (04:13→20:48)
--- NOTE | 2018-08-26 09:31 | Palliative Progress Note ---
Date of Encounter: 08/26/18 Time of Encounter: 09:00 - Assessment and plan (1) Anxiety Current Visit: No Status: Acute Assessment and plan: Has Lorazepam available PRN. Has not utilized. (2) Generalized pain Current Visit: No Status: Acute Assessment and plan: Has Oxycodone available if needed. Has not utilized. (3) Agitation Current Visit: No Status: Acute Assessment and plan: Has continued with low dose scheduled Haloperidol. She looks very comfortable. Continue and will transition to po possibly tomorrow. (4) Altered mental status Current Visit: No Status: Acute Qualifiers: Altered mental status type: unspecified Qualified Code(s): R41.82 - Altered mental status, unspecified (5) End-stage renal disease (ESRD) Current Visit: No Status: Chronic (6) Interstitial lung disease Current Visit: No Status: Chronic (7) Goals of care, counseling/discussion Current Visit: No Status: Acute Assessment and plan: Son at bedside asleep during my visit. She appears very weak, less responsive. May need to begin discussion regarding transition to ECF. Will touch base with [employer] worker [employer]. - Time Spent With Patient Total time spent is greater than 50% in coordination of care (as documented) at patient's floor/unit and/or counseling patient: 25 - 35 minutes - Subjective Interval history: Patient resting quietly, minimally responsive. Does open eyes with assessment. Son asleep at bedside. - Constitutional General appearance: Present: no acute distress - Respiratory Additional comments: Respirations shallow and regular. - Cardiovascular Cardiovascular exam: Present: irregular rhythm - GI/Abdominal GI/Abdominal exam: Present: soft Additional comments: Ileostomy with small amount liquid stool. - Extremities Exam Extremities exam: Present: normal capillary refill, normal inspection - Neurological Exam Additional comments: Patient will open eyes, no verbal response. Does not follow commands this am. - Skin Skin exam: Present: dry, pallor, warm Palliative Quality Palliative Quality: Screen for Code Status: Yes, Screen for Goals of Care: Yes, Screen for Pain: Yes, If Pain Regimen Started, Initiate Bowel Regimen: NA (Ileostomy), Screen for Nausea/Vomitting: Yes Code Status: 08/25/18 11:36 Resuscitation Status: Active [RES] Routine Comment: Resuscitation Status: DNR-Comfort Care Consult Discharge Plan - Plan Referrals: Jamaica Nunze MD [Primary Care Provider] -
[2018-08-27] MEDS: Haloperidol Lactate 5 MG/ML VIAL IVP SCH (05:51)
[2018-08-27] MEDS ORDERED: *HR* LORazepam Oral Conc 2 MG/ML SL PRN (09:15)
[2018-08-27] MEDS: Haloperidol Oral Conc 10 MG/5 ML UDC PO SCH ×2 (10:20→16:35)
--- NOTE | 2018-08-27 10:49 | Palliative Progress Note ---
Date of Encounter: 08/27/18 Time of Encounter: 09:00 - Assessment and plan (1) Anxiety Current Visit: No Status: Acute Assessment and plan: Has Lorazepam available if needed. Will transition to oral concentrate. Has not utilized. (2) Generalized pain Current Visit: No Status: Acute Assessment and plan: Continue SL Oxycodone conc if needed for discomfort. Has not utilized (3) Agitation Current Visit: No Status: Acute Assessment and plan: Will change Haloperidol from IV to po and monitor. (4) Altered mental status Current Visit: No Status: Acute Qualifiers: Altered mental status type: unspecified Qualified Code(s): R41.82 - Altered mental status, unspecified (5) End-stage renal disease (ESRD) Current Visit: No Status: Chronic (6) Interstitial lung disease Current Visit: No Status: Chronic (7) Goals of care, counseling/discussion Current Visit: No Status: Acute Assessment and plan: Will transition all medication to oral today and evaluate if these are effective for her. If she remains stable and tolerates po medication, will d/w [facility] worker helper regarding possible ECF transfer, as family states they are unable to care for her. - Time Spent With Patient Total time spent is greater than 50% in coordination of care (as documented) at patient's floor/unit and/or counseling patient: 25 - 35 minutes - Subjective Interval history: Patient appears somewhat restless, eyes open, slow to respond. Denies discomfort. Appears in no respiratory distress. According to staff, son had family emergency and had to go back to [place] last night. No visitors at bedside. - Constitutional General appearance: Present: no acute distress - Respiratory Respiratory exam: Present: decreased breath sounds, CTAB Additional comments: Respirations shallow and regular - Cardiovascular Cardiovascular exam: Present: +S1, +S2 - GI/Abdominal GI/Abdominal exam: Present: soft Additional comments: Ileostomy with liquid brown stool - Additional comments: Urostomy intact - Extremities Exam Extremities exam: Present: normal capillary refill, normal inspection - Neurological Exam Additional comments: Eyes open, answers occasional question, but slow to respond. Did not follow commands for me this am - Skin Skin exam: Present: dry, pallor, warm Palliative Quality Palliative Quality: Screen for Code Status: Yes, Screen for Goals of Care: Yes, Screen for Pain: Yes, If Pain Regimen Started, Initiate Bowel Regimen: NA (Ileostomy), Screen for Nausea/Vomitting: Yes Code Status: 08/25/18 11:36 Resuscitation Status: Active [RES] Routine Comment: Resuscitation Status: DNR-Comfort Care Consult Discharge Plan - Plan Referrals: Jamaica Nunez MD [Primary Care Provider] -
[2018-08-27] MEDS: OXYCODONE Oral CONC 10 MG/0.5 ML ORAL.SYG SL PRN (11:52)
[2018-08-28] MEDS: Haloperidol Oral Conc 10 MG/5 ML UDC PO SCH ×3 (01:33→18:11)
[2018-08-28] MEDS: OXYCODONE Oral CONC 10 MG/0.5 ML ORAL.SYG SL PRN (05:29)
--- NOTE | 2018-08-28 09:07 | Palliative Progress Note ---
Date of Encounter: 08/28/18 Time of Encounter: 09:00 - Assessment and plan (1) Anxiety Current Visit: No Status: Acute Assessment and plan: Has Lorazepam available if needed, but has not utilized. (2) Generalized pain Current Visit: No Status: Acute Assessment and plan: Patient has Oxycodone available PRN for discomfort. She has not required medication for comfort until yesterday, but has now utilized 2 doses of pain medication. Appears comfortable and in no distress. (3) Agitation Current Visit: No Status: Acute Assessment and plan: Continue scheduled Haloperidol. Titrate as needed. (4) Altered mental status Current Visit: No Status: Acute Qualifiers: Altered mental status type: unspecified Qualified Code(s): R41.82 - Altered mental status, unspecified (5) End-stage renal disease (ESRD) Current Visit: No Status: Chronic (6) Interstitial lung disease Current Visit: No Status: Chronic (7) Goals of care, counseling/discussion Current Visit: No Status: Acute Assessment and plan: Continue GIP care. She has had marked decrease in blood pressure over the past 24 hours, and changes in her breathing pattern. Continue to monitor. Hospice social met with family yesterday to begin arrangements for ECF placement. She may pass prior to discharge. - Time Spent With Patient Total time spent is greater than 50% in coordination of care (as documented) at patient's floor/unit and/or counseling patient: - Subjective Interval history: Patient resting with eyes open. No verbal response. Respiratory appear more shallow, having some periods of apnea. No family present. - Constitutional General appearance: Present: no acute distress - Respiratory Respiratory exam: Present: decreased breath sounds Additional comments: Shallow irreg respirations - Cardiovascular Cardiovascular exam: Present: tachycardia - GI/Abdominal GI/Abdominal exam: Present: normal bowel sounds, soft - Extremities Exam Extremities exam: Present: normal capillary refill, normal inspection - Neurological Exam Neurological exam: Present: alert Additional comments: Does not verbalize or follow commands - Skin Skin exam: Present: dry, pallor, warm Palliative Quality Palliative Quality: Screen for Code Status: Yes, Screen for Goals of Care: Yes, Screen for Pain: Yes, If Pain Regimen Started, Initiate Bowel Regimen: NA (Ileostomy), Screen for Nausea/Vomitting: Yes Code Status: 08/25/18 11:36 Resuscitation Status: Active [RES] Routine Comment: Resuscitation Status: DNR-Comfort Care Consult Discharge Plan - Plan Referrals: Jamaica Nunez MD [Primary Care Provider] -
[2018-08-29] MEDS: Haloperidol Oral Conc 10 MG/5 ML UDC PO SCH ×3 (01:11→17:28)
--- NOTE | 2018-08-29 09:08 | Palliative Progress Note ---
Date of Encounter: 08/29/18 Time of Encounter: 08:30 - Assessment and plan (1) Anxiety Current Visit: No Status: Acute Assessment and plan: Patient currently calm. Patient with PRN SL Ativan prn. No doses taken in past 24 hrs. (2) Generalized pain Current Visit: No Status: Acute Assessment and plan: Patient reports extreme tenderness to bilateral feet with palpation. Biateral feet warm and tender. Positioned for comfort. Patient has PRN Oxycodone. No doses in past 24 hrs. (3) Goals of care, counseling/discussion Current Visit: No Status: Acute Assessment and plan: Patient vitals stable today. Patient tolerating thickened coffee po. B/P 102/64. Tolerating NC O2. If remains stable over weekend possible transition to ECF. (4) ESRD (end stage renal disease) on dialysis Current Visit: No Status: Chronic Assessment and plan: Patient comfort care. Not receiving dialysis. - Time Spent With Patient Total time spent is greater than 50% in coordination of care (as documented) at patient's floor/unit and/or counseling patient: 25 - 35 minutes - Subjective Interval history: Patient in bed. Awake, responsive. Tolerating thickened coffee po. Reports extreme tenderness to bilateral feet. Positioned for comfort. - Constitutional General appearance: Present: no acute distress - Head Head exam: Present: atraumatic - Eye Eye exam: Present: PERRL Pupils: Present: PERRL - ENT ENT exam: Present: mucous membranes moist - Neck Neck exam: Present: tenderness - Respiratory Respiratory exam: Present: decreased breath sounds, CTAB - Expanded Respiratory Exam Location: decreased breath sounds: Left, Right, Lower - Cardiovascular Cardiovascular exam: Present: RRR, +S1, +S2 - GI/Abdominal GI/Abdominal exam: Present: diminished bowel sounds, soft - Rectal Rectal exam: Present: deferred - Extremities Exam Extremities exam: Present: full ROM, tenderness - Expanded Lower Extremity Exam Foot/Toe exam: Present: tenderness - Neurological Exam Neurological exam: Present: alert - Psychiatric Psychiatric exam: Present: flat affect - Skin Skin exam: Present: pallor, warm Palliative Quality Palliative Quality: Screen for Code Status: Yes, Screen for Goals of Care: Yes, Screen for Pain: Yes, If Pain Regimen Started, Initiate Bowel Regimen: NA (Ileostomy), Screen for Nausea/Vomitting: Yes Code Status: 10/23/18 11:36 Resuscitation Status: Active [RES] Routine Comment: Resuscitation Status: DNR-Comfort Care Consult Discharge Plan - Plan Referrals: Jamaica Nunez MD [Primary Care Provider] -
[2018-08-29] MEDS: OXYCODONE Oral CONC 10 MG/0.5 ML ORAL.SYG SL PRN ×2 (09:09→12:20)
[2018-08-30] MEDS: Haloperidol Oral Conc 10 MG/5 ML UDC PO SCH ×3 (00:53→17:53)
--- NOTE | 2018-08-30 11:33 | Palliative Progress Note ---
Date of Encounter: 08/30/18 Time of Encounter: 11:00 - Assessment and plan (1) Anxiety Current Visit: No Status: Acute Assessment and plan: Patient currently calm. Patient with PRN SL Ativan prn. No doses taken in past 24 hrs. Received A dose haldol. (2) Generalized pain Current Visit: No Status: Acute Assessment and plan: Patient reports extreme tenderness to bilateral feet with palpation. Biateral feet warm and tender. Positioned for comfort. Patient has PRN Oxycodone. No doses in past 24 hrs. (3) Goals of care, counseling/discussion Current Visit: No Status: Acute Assessment and plan: Patient tolerating thickened coffee po. B/P 74/35. Tolerating NC O2. If remains stable over weekend possible transition to ECF. (4) ESRD (end stage renal disease) on dialysis Current Visit: No Status: Chronic Assessment and plan: Patient comfort care. Not receiving dialysis. - Time Spent With Patient Total time spent is greater than 50% in coordination of care (as documented) at patient's floor/unit and/or counseling patient: less than 15 minutes - Subjective Interval history: Patient in bed. Awake, responsive. Tolerating thickened coffee po. Received haldol this am for agitation. Positioned for comfort. - Head Head exam: Present: atraumatic, normal inspection - Eye Eye exam: Present: PERRL Pupils: Present: PERRL - ENT ENT exam: Present: mucous membranes moist - Neck Neck exam: Present: full ROM - Respiratory Respiratory exam: Present: decreased breath sounds - Expanded Respiratory Exam Location: decreased breath sounds: Left, Right, Lower - Cardiovascular Cardiovascular exam: Present: RRR, +S1, +S2 - GI/Abdominal GI/Abdominal exam: Present: soft - Extremities Exam Extremities exam: Present: normal inspection, tenderness - Neurological Exam Neurological exam: Present: alert Additional comments: eyes open. Listening to country music. Respirations easy. - Psychiatric Psychiatric exam: Present: normal affect - Skin Skin exam: Present: pallor, warm Palliative Quality Palliative Quality: Screen for Code Status: Yes, Screen for Goals of Care: Yes, Screen for Pain: Yes, If Pain Regimen Started, Initiate Bowel Regimen: NA (Ileostomy), Screen for Nausea/Vomitting: Yes Code Status: 08/25/18 11:36 Resuscitation Status: Active [RES] Routine Comment: Resuscitation Status: DNR-Comfort Care Consult Discharge Plan - Plan Referrals: Jamaica Nunez MD [Primary Care Provider] -
[2018-08-30] MEDS: OXYCODONE Oral CONC 10 MG/0.5 ML ORAL.SYG SL PRN (14:00)
[2018-08-31] MEDS: Haloperidol Oral Conc 10 MG/5 ML UDC PO SCH ×3 (01:09→17:05)
[2018-08-31] MEDS: OXYCODONE Oral CONC 10 MG/0.5 ML ORAL.SYG SL PRN ×3 (03:01→22:47)
--- NOTE | 2018-08-31 09:27 | Palliative Progress Note ---
Date of Encounter: 08/31/18 Time of Encounter: 09:15 - Assessment and plan (1) Anxiety Current Visit: No Status: Acute Assessment and plan: Lorazepam PRN as needed. Has not utilized. (2) Generalized pain Current Visit: No Status: Acute Assessment and plan: Oxycodone SL PRN. Is now requiring for comfort. Utilized x 3 last 24 hours (3) Agitation Current Visit: No Status: Acute Assessment and plan: Continues with scheduled low dose Haloperidol. Continue and monitor (4) Altered mental status Current Visit: No Status: Acute Qualifiers: Altered mental status type: unspecified Qualified Code(s): R41.82 - Altered mental status, unspecified (5) End-stage renal disease (ESRD) Current Visit: No Status: Chronic (6) Interstitial lung disease Current Visit: No Status: Chronic (7) Goals of care, counseling/discussion Current Visit: No Status: Acute Assessment and plan: Anticipated d/c to ECF today. However, B/P 58/33, mottling, and long periods of apnea are noted. Hospice nurse Alicia Ho at bedside. Patient may not survive transport. Does appear to be requiring increased use of meds for comfort and may need to adjust dose. Will continue GIP stay. Likely will pass away here. - Time Spent With Patient Total time spent is greater than 50% in coordination of care (as documented) at patient's floor/unit and/or counseling patient: - Subjective Interval history: Patient resting with eyes open. No verbal response. Respiratory appear more shallow, having 20-30sec periods of apnea. Mottling to hand/feet noted. B/P58/33. No family present, primary nurse at bedside and family has called and has been updated on her condition. - Constitutional General appearance: Present: no acute distress - Respiratory Additional comments: Shallow irreg breathing. Rhonchi noted throughout anterior chest. - Cardiovascular Cardiovascular exam: Present: irregular rhythm - GI/Abdominal Additional comments: Ileostomy intact, minimal output - Additional comments: Urostomy intact - Extremities Exam Additional comments: Mottled areas noted to bilateral feet and hands - Neurological Exam Additional comments: Eyes open, no verbal response. Palliative Quality Palliative Quality: Screen for Code Status: Yes, Screen for Goals of Care: Yes, Screen for Pain: Yes, If Pain Regimen Started, Initiate Bowel Regimen: NA (Ileostomy), Screen for Nausea/Vomitting: Yes Code Status: 08/25/18 11:36 Resuscitation Status: Active [RES] Routine Comment: Resuscitation Status: DNR-Comfort Care Consult Discharge Plan - Plan Referrals: Jamaica Nunez MD [Primary Care Provider] -
[2018-08-31 19:39] VITALS: BP 118/54
--- NOTE | 2018-09-02 12:27 | Death Note ---
Discharge Sum: Summary - Date and Time Date of admission: 08/25/18 12:58 Date of : 09/01/18 Time of : 01:35 - Summary Details: Patient with long history of end stage renal disease with multiple comorbities was admitted to general inpatient hospice after a hospital stay for symptom management. She had altered mental status during hospital stay, and her condition declined to the point she could no longer physically tolerate dialysis, and son Hany proceeded with decision for comfort care and hospice. She had experienced delirium and agitation, and this continued to be treated throughout her inpatient hospice stay. She peacefully with family at bedside at 0135 on 09/01/2018. - Additional Data Confirmation of as documented by pronouncing clinician: no pulse, no respirations, no heart sounds Family: at bedside Attending/PCP notified?: Yes Attending physician: Sean Wayne Was code activated?: No Hospice patient?: Yes Discharge Sum: Diag - PCOD Probable Cause of : Respiratory arrest Discharge Sum: Prov - Provider Primary care physician: Jamaica Nunez MD Admitting clinician: Jamaica Nunez Consults: 08/25/18 11:36 Consult to Palliative Care [CONS] Routine Comment: Consulting Provider: Palliative Care Katelyn Reason for Consult: GIP Call Completed: No 08/25/18 15:14 Consult to Pastoral Services [CONS] Routine Comment:
== END 2018-09-01 01:35 | disposition expired | DRG 291 ==
LOC: SUATTDRO 12:58 → 2ANU 12:58
PROVIDERS: ADMIT Internal Medicine Hospice and Palliative Medicine; ATTEND Hospitalist